=== PATIENT | female | born 1975 | race Caucasian/White ===

== ENCOUNTER 2020-07-10 14:24 | Outpatient (REF) | payer OTHER, SELFPAY ==
[2020-07-10 15:05] LABS: MANUAL DIFF FLAG NO
[2020-07-10 15:11] LABS: Basophils Percent Auto 0.4 % (0-2); Eosinophils Absolute Auto 0.2 X10*3/uL (0.0-0.4); Eosinophils Percent Auto 2.3 % (0-4); Hematocrit 37.7 % (37-47); Hemoglobin 11.6 g/dl (12.0-16.0); Imm Gran Abs Auto 0.02 X10*3/uL (0.00-0.03); Imm Gran Pct Auto 0.3 % (0.0-0.4); Lymphocytes Absolute Auto 1.9 X10*3/uL (1.2-4.9); Mean Corpuscular HGB Conc 30.8 g/dl (31.0-35.0); Mean Corpuscular Hemoglobin 24.3 pg (27.0-33.0); Mean Platelet Volume 11.7 fL (9.4-12.3); Monocytes Absolute Auto 0.5 X10*3/uL (0.1-1.2); Monocytes Percent Auto 7.3 % (2-11); Neutrophils Absolute Auto 4.7 X10*3/uL (2.0-8.3); Neutrophils Percent Auto 63.7 % (45-73); Platelet Count 258 X10*3/uL (160-400); Red Blood Count 4.77 X10*6/uL (4.20-5.50); Red Cell Distribution Width 15.5 % (11.0-16.0); White Blood Count 7.4 X10*3/uL (4.8-10.8)
[2020-07-10 15:22] LABS: Alanine Aminotransferase 16 U/L (0-31); Alkaline Phosphatase 91 U/L (39-117); Anion Gap 13 (12-20); Aspartate Amino Transferase 23 U/L (5-31); Bilirubin Total 0.8 mg/dL (0.0-1.0); Blood Urea Nitrogen 12 mg/dL (9-16); Calcium 8.1 mg/dL (8.4-10.2); Carbon Dioxide 32 mmol/L (22-29); Chloride 99 mmol/L (96-108); Estimated Glomerular Filt Rate > 60; Glucose Fasting 144 mg/dL (60-99); Potassium 3.6 mmol/l (3.3-5.1); Sodium 140 mmol/L (135-145); Total Protein 6.8 g/dL (6.5-8.0)
[2020-07-10 15:30] LABS: Cholesterol 140 mg/dL; HDL Cholesterol 44 mg/dL; LDL Cholesterol Calculated 66 mg/dl; Triglycerides 154 mg/dL
[2020-07-10 15:42] LABS: Ferritin 75 ng/mL (10-250)
[2020-07-10 15:48] LABS: Vitamin B12 263 pg/mL (200-900)
[2020-07-10 15:50] LABS: Thyroid Stimulating Hormone 1.65 mIU/mL (0.32-4.0)
[2020-07-10 16:13] LABS: Creatinine Urine 107.48 mg/dL; Microalbum/Creatinine Ratio Ur 7.4 ug/mg cr
[2020-07-11 03:27] LABS: Estimated Average Glucose 212 mg/dL
== END 2020-07-10 14:25 | disposition home or self-care (01) ==
LOC: HO.LAB 14:24
PROVIDERS: Absent Provider Internal Medicine Medical Oncology; PCP Internal Medicine; Visit Provider Internal Medicine
DX: D50.9 Iron deficiency anemia, unspecified (principal); E66.01 Morbid (severe) obesity due to excess calories; E11.65 Type 2 diabetes mellitus with hyperglycemia; E78.00 Pure hypercholesterolemia, unspecified; Z00.01 Encounter for general adult medical examination with abnormal findings; Z91.14 Patient's other noncompliance with medication regimen; I10 Essential (primary) hypertension
CPT/HCPCS: 36415; 80053; 80061; 82043; 82607; 82728; 83036; 84443; 85025

== ENCOUNTER 2020-07-11 11:38 | Outpatient (REF) | payer OTHER, SELFPAY | END 2020-07-11 11:39 | disposition home or self-care (01) | LOC: HO.LAB 11:38 | PROVIDERS: PCP Internal Medicine; Visit Provider Internal Medicine | DX: E11.65 Type 2 diabetes mellitus with hyperglycemia (principal); E78.00 Pure hypercholesterolemia, unspecified; I10 Essential (primary) hypertension; Z00.01 Encounter for general adult medical examination with abnormal findings; Z91.14 Patient's other noncompliance with medication regimen | CPT/HCPCS: 87338 ==

== ENCOUNTER 2020-07-17 13:55 | Outpatient (REF) | payer OTHER, SELFPAY | END 2020-07-17 13:56 | disposition home or self-care (01) | LOC: HO.LAB 13:55 | PROVIDERS: PCP Internal Medicine; Visit Provider Internal Medicine | DX: Z20.828 Contact with and (suspected) exposure to other viral communicable diseases (principal) | CPT/HCPCS: C9803; U0003 ==

== ENCOUNTER → 2020-09-14 11:20 | Outpatient (BNVA) | payer OTHER, SELFPAY | PROVIDERS: PCP Internal Medicine; Visit Provider Physician Assistant | DX: M17.12 Unilateral primary osteoarthritis, left knee (principal) | CPT/HCPCS: 99212; J1020 ==

== ENCOUNTER 2020-09-14 14:09 | Outpatient (REF) | payer OTHER, SELFPAY | END 2020-09-14 14:10 | disposition home or self-care (01) | LOC: HO.LAB 14:09 | PROVIDERS: Visit Provider Internal Medicine | DX: Z20.828 Contact with and (suspected) exposure to other viral communicable diseases (principal) | CPT/HCPCS: 36415; C9803; U0003 ==

== ENCOUNTER 2020-10-24 20:07 | Emergency (ER) | payer OTHER, SELFPAY ==
--- NOTE | ~2020-10-24 | XR_ITS ---
EXAMINATION: XR CHEST CLINICAL INFORMATION: URI symptoms COMPARISON: Chest x-ray 08/02/2018 TECHNIQUE: Frontal view of the chest was obtained. FINDINGS: Cardiac silhouette is normal in size. The lungs are well aerated. There is no lobar consolidation. No pleural effusion or pneumothorax. Degenerative changes of the spine. XR/XR chest 1V IMPRESSION: No acute pulmonary pathology.
[2020-10-24 20:39] VITALS: BP 125/80; PULSE 120; RESP 22; TEMP 37.2; O2SAT 96; BMI 52.9
--- NOTE | 2020-10-24 21:05 | ED.URI ---
HPI - URI/Sore Throat General Chief Complaint: Upper Respiratory Symptoms Stated Complaint: covid symptims Time Seen by Provider: 10/24/20 20:37 Source: patient Mode of arrival: ambulatory Limitations: no limitations History of Present Illness HPI Narrative: 45-year-old female with past medical history of hypertension, hyperlipidemia, hypothyroidism, and diabetes presents with approximately 3 days of upper respiratory symptoms which include sore throat, dry cough, fatigue, intermittent fevers and chills, and wheezing. She does get recurrent bronchitis yearly however feels that this upper respiratory infection is somewhat different. She does not report chest pain, palpitations, abdominal pain, abdominal distention, dysuria, hematuria, edema, dizziness, and lightheadedness. MD elicited complaint: fever, cough, sore throat and nasal congestion Onset (ago): day(s) (3) Consistency: constant Severity: moderate Description of mucous: clear and watery Able to tolerate fluids by mouth: Yes Exacerbating factors: swallowing and deep breaths Relieving factors: nothing Associated symptoms: fever, chills, myalgias, headache, rhinorrhea, nasal congestion, sore throat, cough and nausea Treatments prior to arrival: acetaminophen Related Data Home Medications Medication Instructions Recorded Confirmed atorvastatin 20 mg tablet 20 mg PO BEDTIME 09/14/20 glimepiride 4 mg tablet 4 mg PO DAILY 09/14/20 levothyroxine 25 mcg capsule 25 mcg PO DAILY 09/14/20 valsartan 320 mg tablet 320 mg PO DAILY 09/14/20 Previous Rx's Medication Instructions Recorded celecoxib 200 mg capsule 200 mg PO BID 30 Days #60 cap 09/15/20 amoxicillin-pot clavulanate 1 tab PO Q12H 10 Days #20 tab 10/24/20 [Augmentin] benzonatate [Tessalon Perles] 100 mg PO TID PRN #30 cap 10/24/20 Allergies Allergy/AdvReac Type Severity Reaction Status Date / Time lisinopril [LISINOPRIL] Allergy Severe ANGIOEDEMA Unverified 05/25/20 15:52 metformin [METFORMIN] Allergy Intermediate GI UPSET Unverified 05/25/20 15:52 dapagliflozin [From FARXIGA] Allergy Unknown HIVES Unverified 05/25/20 15:52 erythromycin base Allergy Unknown UNKNOWN Unverified 05/25/20 15:52 [ERYTHROMYCIN BASE] liraglutide [From VICTOZA] Allergy Unknown RASH Unverified 05/25/20 15:52 amitriptyline [AMITRIPTYLINE] AdvReac Intermediate DRUGGED Unverified 05/25/20 15:52 FEELING Review of Systems Review of Systems: Constitutional: positive Fever, positive Chills, positive fatigue, positive Malaise ENT/Mouth: positive sore throat, positive runny nose Eyes: No Discharge Cardiovascular: No Chest Pain, No SOB Respiratory: No Cough, No Sputum, No Wheezing, No Smoke Exposure, No Dyspnea Gastrointestinal: No Nausea, No Vomiting, No Diarrhea Genitourinary: no irregular bleeding, No Dysuria, No Urinary Frequency, No Hematuria, No Urinary Incontinence, No Urgency, No Flank Pain, Musculoskeletal: positive Myalgia Skin: No rash Neuro: No Headache Yes all other systems are reviewed and are negative FOR[facility]LY [facility], [facility] Past Medical History Attestation statement: The following information was validated with the patient. Source: old records reviewed Medical History Diabetes type 2, controlled H/O cholecystitis HTN (hypertension) Hyperlipidemia Hypothyroid Surgical History H/O tubal ligation Social History Social History Alcohol intake: never Smoking Status: Never smoker Use of substances other than those prescribed or required for medical reasons: No Advance Directives: No Advance Directives Information Provided: Yes Current occupational status: employed Current occupation: [employer] Physical Exam Vital Signs: Vital Signs: Last Vital Signs Temp 99.0 F 10/24/20 20:39 Pulse 120 H 10/24/20 20:39 Resp 22 H 10/24/20 20:39 BP 125/80 10/24/20 20:39 Pulse Ox 96 10/24/20 20:39 Body Mass Index 52.9 Appearance: Alert. Oriented X3. No acute distress. Eyes: Pupils equal, round and reactive to light. ENT: Pharynx normal. Neck: Normal inspection. Neck supple. CVS: Normal heart rate and rhythm. Pulses normal. Respiratory: No respiratory distress. Breath sounds normal. Abdomen: Soft and nontender. Skin: Skin warm and dry. Normal skin color. Normal skin turgor. Extremities: No lower extremity edema. Neuro: No motor deficit. No sensory deficit. Course Course Course Narrative: 45-year-old female with past medical history of hypertension, diabetes, obesity presents with upper respiratory symptoms consistent with COVID-19. Plan of care chest x-ray and COVID swab. Chest x-ray negative for findings of intervention. COVID swab is positive. Patient verbalized understanding of and agrees to plan of care discharge home. MDM - URI/Sore Throat Differential Diagnosis Differential diagnosis: Likely upper respiratory infection, viral infection, bronchitis, influenza and pharyngitis Medical Records Attestation: I reviewed the patient's medical records. Lab Data Attestation: I reviewed the patient's lab results. Labs: Lab Results 10/24/20 Range/Units 20:57 Coronavirus (PCR) POSITIVE A (Negative) Influenza Type A (PCR) NEGATIVE (Negative) Influenza Type B (PCR) NEGATIVE (Negative) RSV RNA Qual (PCR) NEGATIVE (Negative) Imaging Data Chest x-ray: Attestation: I personally reviewed and interpreted this imaging study as follows: Radiologist's impression: EXAMINATION: XR CHEST CLINICAL INFORMATION: URI symptoms COMPARISON: Chest x-ray 08/02/2018 TECHNIQUE: Frontal view of the chest was obtained. FINDINGS: Cardiac silhouette is normal in size. The lungs are well aerated. There is no lobar consolidation. No pleural effusion or pneumothorax. Degenerative changes of the spine. XR/XR chest 1V IMPRESSION: No acute pulmonary pathology. Discharge Plan Discharge Clinical Impression: Viral infection, Bronchitis, COVID-19 Patient Disposition: Home, Self-Care Instructions: Acute Bronchitis (ED), Wheezing (ED), COVID-19 (Coronavirus Disease 2019) (ED) Additional Instructions: You were evaluated for respiratory symptoms consistent with COVID-19. Your COVID test came back positive. Please maintain social isolation for state and Federal guidelines. Thank you for choosing this emergency department for evaluation. Please follow-up with primary care physician as needed. Return to the emergency department for any new, concerning, or worsening symptoms. Prescriptions: New benzonatate [Tessalon Perles] 100 mg capsule 100 mg PO TID PRN (Reason: cough) Qty: 30 RF: 0 amoxicillin-pot clavulanate [Augmentin] 875-125 mg tablet 1 tab PO Q12H 10 Days Qty: 20 RF: 0 No Action celecoxib [Celebrex] 200 mg capsule 200 mg PO BID 30 Days Qty: 60 RF: 3 Stand Alone Forms: Work/School Release Interventions: ED Discharge Assessment Last Done: 10/24/20 22:22 Discharge Date/Time: 10/24/20 22:24
[2020-10-24 21:41] LABS: Influenza A PCR NEGATIVE (Negative); Influenza B PCR NEGATIVE (Negative); Resp Syncy Virus RNA Qual PCR NEGATIVE (Negative); SARS COV2 PCR INHOUSE POSITIVE (Negative)
[2020-10-24] MEDS: Benzonatate 100 MG CAPSULE 200 MG PO (22:16)
[2020-10-24] MEDS: Acetaminophen 325 MG TABLET 650 MG PO (22:16)
[2020-10-24] MEDS: Albuterol Sulfate 90 MCG 8 GM INHALER 2 PUFF INHALE (22:16)
== END 2020-10-24 22:24 | disposition home or self-care (01) ==
PROVIDERS: Nurse Practitioner Family; Emergency Provider Emergency Medicine; PCP Internal Medicine
DX: U07.1 COVID-19 (principal); I10 Essential (primary) hypertension; E11.9 Type 2 diabetes mellitus without complications
CPT/HCPCS: 0241U; 36415; 71045; 99283; 99284

== ENCOUNTER 2020-11-16 15:38 | Outpatient (REF) | payer OTHER, SELFPAY ==
[2020-11-16 16:42] LABS: Hemoglobin 11.6 g/dl (12.0-16.0); MANUAL DIFF FLAG SCAN; Neutrophils Absolute Auto 4.9 X10*3/uL (2.0-8.3); SCAN SMEAR FLAG 1
[2020-11-16 16:44] LABS: Basophils Percent Auto 0.2 % (0-2); Eosinophils Absolute Auto 0.1 X10*3/uL (0.0-0.4); Eosinophils Percent Auto 1.5 % (0-4); Hematocrit 37.5 % (37-47); Imm Gran Abs Auto 0.04 X10*3/uL (0.00-0.03); Imm Gran Pct Auto 0.5 % (0.0-0.4); Lymphocytes Absolute Auto 1.7 X10*3/uL (1.2-4.9); Lymphocytes Percent Auto 20.4 % (20-40); Mean Corpuscular HGB Conc 30.9 g/dl (31.0-35.0); Mean Corpuscular Hemoglobin 23.7 pg (27.0-33.0); Mean Corpuscular Volume 76.7 fL (80-98); Mean Platelet Volume 12.1 fL (9.4-12.3); Monocytes Absolute Auto 1.4 X10*3/uL (0.1-1.2); Monocytes Percent Auto 16.7 % (2-11); Neutrophils Percent Auto 60.7 % (45-73); PLT CLUMP 1; Red Blood Count 4.89 X10*6/uL (4.20-5.50); Red Cell Distribution Width 17.7 % (11.0-16.0)
[2020-11-16 16:48] LABS: PLT ABN DIST 1
[2020-11-16 16:49] LABS: Estimated Average Glucose 235 mg/dL; Hemoglobin A1c % 9.8 %
[2020-11-16 17:00] LABS: Platelet Count 161 X10*3/uL (160-400); SLIDE REVIEW VERIFIED; White Blood Count 8.1 X10*3/uL (4.8-10.8)
[2020-11-16 17:13] LABS: Alanine Aminotransferase 20 U/L (0-31); Albumin Level 3.5 g/dL (3.5-5.0); Alkaline Phosphatase 96 U/L (39-117); Anion Gap 13 (12-20); Aspartate Amino Transferase 15 U/L (5-31); Bilirubin Total 0.5 mg/dL (0.0-1.0); Blood Urea Nitrogen 16 mg/dL (9-16); Calcium 8.3 mg/dL (8.4-10.2); Carbon Dioxide 27 mmol/L (22-29); Chloride 99 mmol/L (96-108); Estimated Glomerular Filt Rate > 60; Glucose Fasting 376 mg/dL (60-99); Potassium 3.6 mmol/L (3.3-5.1); Sodium 135 mmol/L (135-145); Total Protein 6.1 g/dL (6.5-8.0)
[2020-11-16 17:27] LABS: Ferritin 154 ng/mL (10-250); Thyroid Stimulating Hormone 1.89 uIU/mL (0.32-4.0)
[2020-11-18 09:25] LABS: Vitamin B12 211 pg/mL (200-900)
== END 2020-11-16 15:39 | disposition home or self-care (01) ==
LOC: HO.LAB 15:38
PROVIDERS: Absent Provider Internal Medicine Medical Oncology; PCP Internal Medicine; Visit Provider Internal Medicine
DX: E11.65 Type 2 diabetes mellitus with hyperglycemia (principal); I26.99 Other pulmonary embolism without acute cor pulmonale; R06.02 Shortness of breath; U07.1 COVID-19; D50.9 Iron deficiency anemia, unspecified; E53.8 Deficiency of other specified B group vitamins
CPT/HCPCS: 36415; 80053; 82607; 82728; 83036; 84439; 84443; 85025

== ENCOUNTER 2021-02-21 14:32 | Outpatient (REF) | payer OTHER, SELFPAY ==
[2021-02-21 16:44] LABS: MANUAL DIFF FLAG NO
[2021-02-21 16:50] LABS: Basophils Absolute Auto 0.1 X10*3/uL (0.0-0.2); Basophils Percent Auto 0.5 % (0-2); Eosinophils Absolute Auto 0.2 X10*3/uL (0.0-0.4); Eosinophils Percent Auto 1.9 % (0-4); Hematocrit 33.8 % (37-47); Hemoglobin 10.2 g/dl (12.0-16.0); Imm Gran Abs Auto 0.03 X10*3/uL (0.00-0.03); Imm Gran Pct Auto 0.3 % (0.0-0.4); Lymphocytes Absolute Auto 2.6 X10*3/uL (1.2-4.9); Lymphocytes Percent Auto 26.3 % (20-40); Mean Corpuscular HGB Conc 30.2 g/dl (31.0-35.0); Mean Corpuscular Hemoglobin 23.1 pg (27.0-33.0); Mean Corpuscular Volume 76.5 fL (80-98); Mean Platelet Volume 11.7 fL (9.4-12.3); Monocytes Absolute Auto 0.8 X10*3/uL (0.1-1.2); Monocytes Percent Auto 8.1 % (2-11); Neutrophils Absolute Auto 6.2 X10*3/uL (2.0-8.3); Neutrophils Percent Auto 62.9 % (45-73); Platelet Count 295 X10*3/uL (160-400); Red Blood Count 4.42 X10*6/uL (4.20-5.50); Red Cell Distribution Width 15.3 % (11.0-16.0); White Blood Count 9.9 X10*3/uL (4.8-10.8)
[2021-02-21 17:24] LABS: Alanine Aminotransferase 15 U/L (0-31); Albumin Level 4.1 g/dL (3.5-5.0); Alkaline Phosphatase 86 U/L (39-117); Anion Gap 13 (12-20); Aspartate Amino Transferase 20 U/L (5-31); Bilirubin Total 0.4 mg/dL (0.0-1.0); Blood Urea Nitrogen 12 mg/dL (9-16); Calcium 9.2 mg/dL (8.4-10.2); Carbon Dioxide 30 mmol/L (22-29); Chloride 99 mmol/L (96-108); Estimated Glomerular Filt Rate > 60; Glucose Random 93 mg/dL (60-115); Potassium 3.9 mmol/L (3.3-5.1); Sodium 138 mmol/L (135-145); Total Protein 6.7 g/dL (6.5-8.0)
[2021-02-21 17:51] LABS: Vitamin B12 187 pg/mL (200-900)
[2021-02-21 18:09] LABS: Thyroid Stimulating Hormone 1.32 uIU/mL (0.32-4.0)
[2021-02-21 18:28] LABS: Ferritin 48 ng/mL (10-250)
== END 2021-02-21 14:33 | disposition home or self-care (01) ==
LOC: HO.LAB 14:32
PROVIDERS: Absent Provider Internal Medicine Medical Oncology; PCP Internal Medicine; Visit Provider Nurse Practitioner Family
DX: D50.9 Iron deficiency anemia, unspecified (principal); E03.9 Hypothyroidism, unspecified; E53.8 Deficiency of other specified B group vitamins; M17.12 Unilateral primary osteoarthritis, left knee; M17.11 Unilateral primary osteoarthritis, right knee
CPT/HCPCS: 36415; 80053; 82607; 82728; 84439; 84443; 85025; 99202

== ENCOUNTER 2021-03-05 14:11 | Outpatient (REF) | payer OTHER, SELFPAY ==
[2021-03-05 14:45] LABS: MANUAL DIFF FLAG NO
[2021-03-05 14:50] LABS: Basophils Percent Auto 0.2 % (0-2); Eosinophils Absolute Auto 0.2 X10*3/uL (0.0-0.4); Eosinophils Percent Auto 1.7 % (0-4); Hematocrit 34.9 % (37-47); Hemoglobin 10.6 g/dl (12.0-16.0); Imm Gran Abs Auto 0.04 X10*3/uL (0.00-0.03); Imm Gran Pct Auto 0.4 % (0.0-0.4); Lymphocytes Absolute Auto 2.3 X10*3/uL (1.2-4.9); Lymphocytes Percent Auto 25.4 % (20-40); Mean Corpuscular HGB Conc 30.4 g/dl (31.0-35.0); Mean Corpuscular Hemoglobin 23.2 pg (27.0-33.0); Mean Corpuscular Volume 76.5 fL (80-98); Mean Platelet Volume 11.6 fL (9.4-12.3); Monocytes Absolute Auto 0.7 X10*3/uL (0.1-1.2); Monocytes Percent Auto 7.2 % (2-11); Neutrophils Percent Auto 65.1 % (45-73); Platelet Count 302 X10*3/uL (160-400); Red Blood Count 4.56 X10*6/uL (4.20-5.50); Red Cell Distribution Width 15.3 % (11.0-16.0); White Blood Count 9.2 X10*3/uL (4.8-10.8)
[2021-03-05 14:56] LABS: Estimated Average Glucose 148 mg/dL; Hemoglobin A1c % 6.8 %
[2021-03-05 15:16] LABS: Alanine Aminotransferase 10 U/L (0-31); Albumin Level 3.7 g/dL (3.5-5.0); Alkaline Phosphatase 84 U/L (39-117); Anion Gap 13 (12-20); Aspartate Amino Transferase 19 U/L (5-31); Bilirubin Total 0.3 mg/dL (0.0-1.0); Blood Urea Nitrogen 15 mg/dL (9-16); Carbon Dioxide 30 mmol/L (22-29); Chloride 104 mmol/L (96-108); Estimated Glomerular Filt Rate > 60; Glucose Random 108 mg/dL (60-115); Potassium 4.2 mmol/L (3.3-5.1); Sodium 143 mmol/L (135-145); Total Protein 6.3 g/dL (6.5-8.0)
[2021-03-05 15:33] LABS: Thyroid Stimulating Hormone 0.79 uIU/mL (0.32-4.0)
== END 2021-03-05 14:12 | disposition home or self-care (01) ==
LOC: HO.LAB 14:11
PROVIDERS: PCP Internal Medicine; Visit Provider Internal Medicine
DX: E03.9 Hypothyroidism, unspecified (principal); E11.65 Type 2 diabetes mellitus with hyperglycemia; I26.99 Other pulmonary embolism without acute cor pulmonale; Z79.01 Long term (current) use of anticoagulants
CPT/HCPCS: 36415; 80053; 83036; 84443; 85025

== ENCOUNTER 2021-05-08 06:23 | Outpatient (REF) | payer OTHER, SELFPAY ==
--- NOTE | ~2021-05-08 | FL_ITS ---
EXAMINATION: XR FLUOROSCOPY WITH IMAGES CLINICAL INFORMATION: Right knee osteoarthritis COMPARISON: September 16, 2019 TECHNIQUE: Fluoroscopy performed by Dr. Clifton Ford. Fluoroscopy time: 0.1 seconds DAP: 0.688 Gycm2 Images: 3 FINDINGS: 3 images demonstrate a needle position about the anterior medial aspect of the proximal tibia. FL/FL guidance in treatment room IMPRESSION: Needle placement for pain management.
== END 2021-05-08 06:24 | disposition home or self-care (01) ==
LOC: HO.RADIR 06:23
PROVIDERS: Visit Provider Anesthesiology
DX: M17.0 Bilateral primary osteoarthritis of knee (principal)
CPT/HCPCS: 64454

== ENCOUNTER → 2021-05-16 12:00 | Outpatient (BNVA) | payer OTHER, SELFPAY | PROVIDERS: PCP Internal Medicine; Visit Provider Anesthesiology ==

== ENCOUNTER 2021-06-01 12:34 | Outpatient (REF) | payer OTHER, SELFPAY ==
--- NOTE | ~2021-06-01 | MM_ITS ---
EXAMINATION: MM SCREENING DIGITAL BREAST TOMOSYNTHESIS, BILATERAL CLINICAL INFORMATION: Screening. Asymptomatic. The lifetime risk of breast cancer based on the Tyrer-Cuzick Model is 10%. COMPARISON: Mammography: 03/01/2020, 02/24/2019, 12/11/2017 TECHNIQUE: Digital breast tomosynthesis is performed in both the craniocaudal and mediolateral oblique views along with computer-aided detection (CAD). Synthesized 2D images are generated from the tomosynthesis. Additional right MLO view is provided. FINDINGS: There are scattered areas of fibroglandular density (ACR BI-RADS breast composition Category b). There are no significant masses, abnormal calcifications, or other abnormalities. Parenchymal pattern is similar to prior studies. No developing density. No significant changes. MM/MM tomosynthesis screening BI IMPRESSION: No mammographic evidence of malignancy. ASSESSMENT: BI-RADS 1: Negative RECOMMENDATION: Routine annual mammography screening. This patient's information was entered into a reminder system with a target due date for their next mammogram.
== END 2021-06-01 12:35 | disposition home or self-care (01) ==
LOC: HO.MAMMO 12:34
PROVIDERS: PCP Internal Medicine; Visit Provider Internal Medicine
DX: Z12.31 Encounter for screening mammogram for malignant neoplasm of breast (principal)
CPT/HCPCS: 77063; 77067

== ENCOUNTER 2021-06-07 08:22 | Outpatient (REF) | payer OTHER, SELFPAY | END 2021-06-07 08:23 | disposition home or self-care (01) | LOC: HO.HOSX 08:22 | PROVIDERS: Visit Provider Orthopaedic Surgery | DX: Z13.89 Encounter for screening for other disorder (principal) ==

== ENCOUNTER 2021-06-22 07:30 | Outpatient (REF) | payer OTHER, SELFPAY ==
--- NOTE | ~2021-06-22 | XR_ITS ---
EXAMINATION: XR ANKLE, RIGHT CLINICAL INFORMATION: Right ankle pain. COMPARISON: Right foot radiographs dated 11/23/2015. TECHNIQUE: AP, lateral, and mortise views of the right ankle. FINDINGS: No acute fracture or dislocation. The ankle mortise is maintained. Mild joint space narrowing with small marginal osteophytes at the dorsal midfoot, increased when compared to the prior examination. Redemonstration of a plantar and dorsal calcaneal enthesophytes. XR/XR ankle RT min 3V IMPRESSION: No acute osseous abnormality. Mild degenerative spurring at the dorsal midfoot, slightly progressed. Plantar and dorsal calcaneal spurs.
== END 2021-06-22 07:31 | disposition home or self-care (01) ==
LOC: HO.HOSX 07:30
PROVIDERS: Visit Provider Physician Assistant
DX: M19.071 Primary osteoarthritis, right ankle and foot (principal); Z79.01 Long term (current) use of anticoagulants
CPT/HCPCS: 73610; 99202

== ENCOUNTER 2021-07-02 10:20 | Outpatient (REF) | payer OTHER, SELFPAY ==
[2021-07-02 10:31] LABS: MANUAL DIFF FLAG NO
[2021-07-02 10:58] LABS: Basophils Absolute Auto 0.1 X10*3/uL (0.0-0.2); Basophils Percent Auto 0.5 % (0-2); Eosinophils Absolute Auto 0.2 X10*3/uL (0.0-0.4); Eosinophils Percent Auto 2.2 % (0-4); Hematocrit 36.1 % (37-47); Hemoglobin 11.1 g/dl (12.0-16.0); Imm Gran Abs Auto 0.02 X10*3/uL (0.00-0.03); Imm Gran Pct Auto 0.2 % (0.0-0.4); Lymphocytes Absolute Auto 1.7 X10*3/uL (1.2-4.9); Lymphocytes Percent Auto 16.8 % (20-40); Mean Corpuscular HGB Conc 30.7 g/dl (31.0-35.0); Mean Corpuscular Hemoglobin 23.5 pg (27.0-33.0); Mean Corpuscular Volume 76.3 fL (80-98); Mean Platelet Volume 11.3 fL (9.4-12.3); Monocytes Percent Auto 9.9 % (2-11); Neutrophils Absolute Auto 6.9 X10*3/uL (2.0-8.3); Neutrophils Percent Auto 70.4 % (45-73); Platelet Count 325 X10*3/uL (160-400); Red Blood Count 4.73 X10*6/uL (4.20-5.50); Red Cell Distribution Width 15.9 % (11.0-16.0); White Blood Count 9.9 X10*3/uL (4.8-10.8)
[2021-07-02 11:27] LABS: Estimated Average Glucose 143 mg/dL; Hemoglobin A1c % 6.6 %
[2021-07-02 11:28] LABS: Alanine Aminotransferase 15 U/L (0-31); Alkaline Phosphatase 81 U/L (39-117); Anion Gap 13 (12-20); Aspartate Amino Transferase 16 U/L (5-31); Bilirubin Total 0.5 mg/dL (0.0-1.0); Blood Urea Nitrogen 14 mg/dL (9-16); Calcium 9.3 mg/dL (8.4-10.2); Carbon Dioxide 30 mmol/L (22-29); Chloride 101 mmol/L (96-108); Cholesterol 130 mg/dL; Estimated Glomerular Filt Rate > 60; Glucose Random 115 mg/dL (60-115); HDL Cholesterol 32 mg/dL; LDL Cholesterol Calculated 51 mg/dl; Potassium 3.9 mmol/L (3.3-5.1); Sodium 140 mmol/L (135-145); Total Protein 6.7 g/dL (6.5-8.0); Triglycerides 236 mg/dL
[2021-07-02 11:50] LABS: Ferritin 35 ng/mL (10-250); Vitamin B12 640 pg/mL (200-900)
== END 2021-07-02 10:21 | disposition home or self-care (01) ==
LOC: HO.LAB 10:20
PROVIDERS: Absent Provider Internal Medicine Medical Oncology; PCP Internal Medicine; Visit Provider Internal Medicine
DX: D50.8 Other iron deficiency anemias (principal); E03.9 Hypothyroidism, unspecified; E11.9 Type 2 diabetes mellitus without complications; E78.2 Mixed hyperlipidemia
CPT/HCPCS: 36415; 80053; 80061; 82607; 82728; 83036; 85025

== ENCOUNTER 2021-07-06 10:13 | Day surgery (SDC) | payer OTHER, SELFPAY ==
[2021-06-28 20:22] VITALS: BMI 49.1
--- NOTE | 2021-07-05 10:14 | HO.ANESPROP2 ---
Documented by User: Norma Tristan NP 07/05/21 10:21 HPI - Anesthesia Eval Consult details Narrative: 45yo F for Left Genicular Nerve Block Diagnostic Eliquis for post-COVID PE's 10/2020 [facility] Active Problems Active Problems: All Active Problems (Updated 06/28/21 @ 20:26 by Maggi Veloz RN) Osteoarthritis of left knee (Acute) COVID-19 (Acute) Osteoarthritis of right knee (Acute) Osteoarthritis of right ankle (Acute) Past Medical History Medical History Anxiety Chronic headaches Diabetes type 2, controlled Dyspnea on exertion H/O cholecystitis History of pulmonary embolus (PE) HTN (hypertension) Hyperlipidemia Hypothyroid Pulmonary embolism Surgical History Surgical History H/O tubal ligation Hx laparoscopic cholecystectomy Social History Social History Alcohol intake: never Patient Tobacco Use Status: Never used Tobacco Use of substances other than those prescribed or required for medical reasons: No Are you DNR?: No Advance Directives: No Advance Directives Information Provided: No Advance Directives on File: No Recently lost weight without trying: No Nutrition Risks: No Nutritional Risk Patient : No Current occupational status: employed Current occupation: [employer] Allergies Allergy/AdvReac Type Severity Reaction Status Date / Time lisinopril [LISINOPRIL] Allergy Severe ANGIOEDEMA Verified 06/22/21 13:34 metformin [METFORMIN] Allergy Intermediate GI UPSET Verified 06/22/21 13:34 dapagliflozin [From FARXIGA] Allergy Unknown HIVES Verified 06/22/21 13:34 erythromycin base Allergy Unknown UNKNOWN Verified 06/22/21 13:34 [ERYTHROMYCIN BASE] liraglutide [From VICTOZA] Allergy Unknown RASH Verified 06/22/21 13:34 amitriptyline [AMITRIPTYLINE] AdvReac Intermediate DRUGGED Verified 06/22/21 13:34 FEELING Home Medications Medication Instructions Recorded Confirmed Last Taken Type atorvastatin 20 mg tablet 20 mg PO BEDTIME 09/14/20 06/28/21 Unknown History glimepiride 4 mg tablet 4 mg PO DAILY 09/14/20 06/28/21 Unknown History levothyroxine 25 mcg capsule 25 mcg PO DAILY 09/14/20 06/28/21 07/06/21 History valsartan 320 mg tablet 320 mg PO DAILY 09/14/20 06/28/21 Unknown History apixaban 5 mg tablet (Eliquis) 5 mg PO BID 02/21/21 06/28/21 07/02/21 History sitagliptin 50 mg-metformin ER 1 tab PO DAILY 02/21/21 06/28/21 Unknown History 1,000 mg tablet,extended release 24h mp (Janumet XR) Exam Exam Date and Time: July 05, 2021 1014 Height,Weight and Vital Signs: Height 5 ft 5 in Weight 133.81 kg Pertinent Lab Results Pertinent Lab Results: Laboratory Tests 07/02/21 07/02/21 10:30 10:30 WBC 9.9 Hgb 11.1 L Hct 36.1 L Plt Count 325 Sodium 140 Potassium 3.9 Chloride 101 Carbon Dioxide 30 H BUN 14 Creatinine 0.93 Assessment and Plan Assessment Anesthesia Assessment: Chart Reviewed Documented by User: Yola Falcon MD 07/06/21 12:30 PMF[facility] Past Medical History Medical History Anxiety Chronic headaches Diabetes type 2, controlled Dyspnea on exertion H/O cholecystitis History of pulmonary embolus (PE) HTN (hypertension) Hyperlipidemia Hypothyroid Pulmonary embolism Surgical History Surgical History H/O tubal ligation Hx laparoscopic cholecystectomy History of Problems with Anesthesia: No Social History Social History Alcohol intake: never Patient Tobacco Use Status: Never used Tobacco Use of substances other than those prescribed or required for medical reasons: No Are you DNR?: No Advance Directives: No Advance Directives Information Provided: No Advance Directives on File: No Recently lost weight without trying: No Nutrition Risks: No Nutritional Risk Patient : No Current occupational status: employed 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 Allergies Allergy/AdvReac Type Severity Reaction Status Date / Time lisinopril [LISINOPRIL] Allergy Severe ANGIOEDEMA Verified 06/22/21 13:34 metformin [METFORMIN] Allergy Intermediate GI UPSET Verified 06/22/21 13:34 dapagliflozin [From FARXIGA] Allergy Unknown HIVES Verified 06/22/21 13:34 erythromycin base Allergy Unknown UNKNOWN Verified 06/22/21 13:34 [ERYTHROMYCIN BASE] liraglutide [From VICTOZA] Allergy Unknown RASH Verified 06/22/21 13:34 amitriptyline [AMITRIPTYLINE] AdvReac Intermediate DRUGGED Verified 06/22/21 13:34 FEELING Home Medications Medication Instructions Recorded Confirmed Last Taken Type atorvastatin 20 mg tablet 20 mg PO BEDTIME 09/14/20 06/28/21 Unknown History glimepiride 4 mg tablet 4 mg PO DAILY 09/14/20 06/28/21 Unknown History levothyroxine 25 mcg capsule 25 mcg PO DAILY 09/14/20 06/28/21 07/06/21 History valsartan 320 mg tablet 320 mg PO DAILY 09/14/20 06/28/21 Unknown History apixaban 5 mg tablet (Eliquis) 5 mg PO BID 02/21/21 06/28/21 07/02/21 History sitagliptin 50 mg-metformin ER 1 tab PO DAILY 02/21/21 06/28/21 Unknown History 1,000 mg tablet,extended release 24h mp (Janumet XR) Exam Airway Mallampati Class: II TM Dist: >3cm Neck ROM: Full Loose/Missing/Broken Teeth: No Heart: RRR Lungs: CTA Assessment and Plan Assessment Anesthesia Assessment: Anesthesia Plan Discussed Final Anesthetic Review History of Problems with Anesthesia: No NPO: Yes ASA Class: III Final Preanesthetic Review: Meds/Allgs Chart Reviewed, Consent Obtained/Reviewed and Anes Risks/Benef Reviewed Patient Risk: Intermediate Procedure Risk: Low Anesthetic Plan Anesthetic Plan: MAC: Disposition: Standard PACU
--- NOTE | 2021-07-05 13:23 | P.HPSUR_ITS ---
Pre-Procedural Eval Section A Date of Service: 07/05/21 The patient is an INPATIENT: No Changes since office visit: Yes Patient answered all questions The History & Physical has been completed within 30 days and I have reviewed it.: No Section B Chief Complaint: Osteoarthritis of left knee Details of Present Illness: as above Relevant Family History (Specify if Yes): No Relevant Social History: None Present Medications: see Short Stay Collaborative assessment Medical History: No relevant PMH History of Previous Operations: No relevant previous surgery Allergies: Allergies Allergy/AdvReac Type Severity Reaction Status Date / Time lisinopril [LISINOPRIL] Allergy Severe ANGIOEDEMA Verified 06/22/21 13:34 metformin [METFORMIN] Allergy Intermediate GI UPSET Verified 06/22/21 13:34 dapagliflozin [From FARXIGA] Allergy Unknown HIVES Verified 06/22/21 13:34 erythromycin base Allergy Unknown UNKNOWN Verified 06/22/21 13:34 [ERYTHROMYCIN BASE] liraglutide [From VICTOZA] Allergy Unknown RASH Verified 06/22/21 13:34 amitriptyline [AMITRIPTYLINE] AdvReac Intermediate DRUGGED Verified 06/22/21 13:34 FEELING Review of Systems Sugical H&P ROS: Negative: Constitution, Cardiovascular, Respiratory, Neurological, Psychiatric, Hem-Onc, Allergic/Immunologic, Gastrointestinal, Genitourinary, Musculoskeletal, Integumentary, Endocrine and Eyes/Ear s/Nose/Throat Exam Surgical H&P Exam: Normal: HEENT, Normal: Heart, Normal: Lungs, Normal: Extremities, Normal: Abdomen, Normal: Skin and Normal: Neurological Plan Diagnosis/Plan: Unchanged I have reviewed the history and physical and performed a pertinent physical examination on my patient. No changes have occurred unless specified.
--- NOTE | ~2021-07-06 | FL_ITS ---
EXAMINATION: XR FLUOROSCOPY WITH IMAGES CLINICAL INFORMATION: left genicular nerve block COMPARISON: Standing AP knees 09/27/2019 TECHNIQUE: Fluoroscopy performed by Dr. Clifton Ford. Fluoroscopy time: 0.2 minutes DAP: 1.72 mGycm2 Images: 3 FINDINGS: There are 2 needles adjacent to the medial and lateral distal femoral shaft at mid depth. There is a single needle adjacent to the proximal medial tibial shaft, mid depth. FL/FL guidance in OR IMPRESSION: Fluoroscopy for pain management procedures.
[2021-07-06 10:15] VITALS: BP 110/74; PULSE 82; RESP 17; TEMP 36.6; O2SAT 96
[2021-07-06 10:28] LABS: Glucose, Whole Blood 149 mg/dL (60-115)
[2021-07-06] MEDS: Lactated Ringers 1,000 ML 100 ML IVCONT (10:42)
[2021-07-06 13:17] VITALS: BP 127/68; PULSE 87; RESP 10; TEMP 36.9; O2SAT 97
--- NOTE | 2021-07-06 13:19 | PM.OP ---
Brief Operative Note Date of Service: 07/06/21 Pre-op diagnosis: Knee osteoarthritis Post-op diagnosis: same Procedure: Diagnostic genicular nerve block left knee Implants: None Surgeon: Clifton Ford MD Anesthesia: GLMA Was an Calender Roll Operator used for this Procedure?: No Estimated blood loss (mL): 1 Pathology: none sent Condition: stable Disposition: PACU
[2021-07-06 13:22] VITALS: BP 143/78; PULSE 90; RESP 18; O2SAT 97
--- NOTE | 2021-07-06 13:25 | P.OP_ITS ---
Operative Note Operative Note Date of Service: 07/06/21 Narrative: Patient came to the operating room after informed consent was obtained.? She was positioned supine on the operating table [employer] [employer] monitors were applied , patient was induced with general anesthes ia and LMA was inserted. Time-out procedure was performed delineating correct site and side of the injections, patient's name and date of , allergies, need for antibiotics, risk of fire. ? ? ? Patient's left knee as well as anterior surface of lower thigh as well as anterior surface of upper kendall were prepped with ChloraPrep and draped with sterile towels.? Sterilely draped C-arm was brought over the operating field and sq picture of the patient's left knee was obtained on the screen .? The point of interest were delineated as connection of left metaphysis and diaphysis medial of the left femoral bones, as well as connections of the diaphysis and metaphysison the left on the medial tibial bone.? As well as connection of the metaphysis and diaphysis on the left of the lateral femoral bone. ? The point of interest projection to the skin were injected with small amount of Lidocaine and after that 22 g. 3&1/2 spinal needles were inserted through the skin 1st on the left and then on the right.? The needles were driven? the point of interest on anterior posterior and lateral views.? When on lateral views the needles were positioned with the tips in the projection of mid shaft of the bones the 1.5 to 2 cc of Marcaine? was injected into each needle position. Upon completion of the injections needles were removed sterile Band-Aids were applied. ? ? ? Patient tolerated procedure well she was transferred to PACU for recovery she recovered uneventfully and went home without immediate complications.
[2021-07-06 13:27] VITALS: BP 117/78; PULSE 88; RESP 18; O2SAT 97
[2021-07-06 13:32] VITALS: BP 106/67; PULSE 80; RESP 16; O2SAT 96
[2021-07-06 13:47] VITALS: BP 115/61; PULSE 78; RESP 16; O2SAT 98
== END 2021-07-06 14:25 | disposition home or self-care (01) ==
PROVIDERS: PCP Internal Medicine; Visit Provider Anesthesiology
PROC: (CPT 64454; principal; 2021-07-06 12:40)
DX: M17.12 Unilateral primary osteoarthritis, left knee (principal); E11.9 Type 2 diabetes mellitus without complications; I10 Essential (primary) hypertension; Z88.8 Allergy status to other drugs, medicaments and biological substances
CPT/HCPCS: 64454; 82947; J1100; J2250; J2405; J2765

== ENCOUNTER 2021-07-10 17:29 | Outpatient (REF) | payer OTHER, SELFPAY ==
[2021-07-10 18:08] LABS: D Dimer 233 NG/ML
== END 2021-07-10 17:30 | disposition home or self-care (01) ==
LOC: HO.LAB 17:29
PROVIDERS: PCP Internal Medicine; Visit Provider Internal Medicine
DX: Z86.711 Personal history of pulmonary embolism (principal)
CPT/HCPCS: 36415; 85379

== ENCOUNTER → 2021-07-12 10:02 | Outpatient (BNVA) | payer OTHER, SELFPAY | PROVIDERS: PCP Internal Medicine; Visit Provider Anesthesiology ==

== ENCOUNTER 2021-07-26 17:13 | Outpatient (REF) | payer OTHER, SELFPAY ==
[2021-07-26 17:34] LABS: D Dimer High Sensitivity 172 NG/ML
== END 2021-07-26 17:14 | disposition home or self-care (01) ==
LOC: HO.LAB 17:13
PROVIDERS: PCP Internal Medicine; Visit Provider Internal Medicine
DX: Z86.711 Personal history of pulmonary embolism (principal); Z79.01 Long term (current) use of anticoagulants
CPT/HCPCS: 36415; 85379

== ENCOUNTER 2021-08-22 14:04 | Outpatient (REF) | payer OTHER, SELFPAY ==
[2021-08-22 15:15] LABS: COVID-19 Test Negative (Negative); IDNOW Serial# 16C4AD1C
== END 2021-08-22 14:05 | disposition home or self-care (01) ==
LOC: HO.LAB 14:04
PROVIDERS: Visit Provider Internal Medicine
DX: Z20.822 Contact with and (suspected) exposure to COVID-19 (principal)
CPT/HCPCS: 36415; 87635; C9803

== ENCOUNTER 2021-09-19 13:12 | Outpatient (REF) | payer OTHER, SELFPAY ==
[2021-09-19 14:28] LABS: COVID-19 Test Negative (Negative)
== END 2021-09-19 13:13 | disposition home or self-care (01) ==
LOC: HO.LAB 13:12
PROVIDERS: Visit Provider Internal Medicine
DX: Z20.822 Contact with and (suspected) exposure to COVID-19 (principal)
CPT/HCPCS: 87635; C9803

== ENCOUNTER 2021-10-03 13:24 | Outpatient (REF) | payer OTHER, SELFPAY ==
--- NOTE | ~2021-10-03 | XR_ITS ---
EXAMINATION: XR WRIST, RIGHT CLINICAL INFORMATION: Right wrist pain. COMPARISON: None TECHNIQUE: PA, lateral, and oblique views of the right wrist. FINDINGS: There is no evidence of acute fracture or dislocation of the right wrist. No erosive changes are evident. There is soft tissue swelling seen overlying the wrist and dorsal aspect of the metacarpals. There is some spurring about the 1st carpometacarpal joint without significant joint space narrowing. XR/XR wrist RT min 3V IMPRESSION: Degenerative change of the 1st carpometacarpal joint.
== END 2021-10-03 13:25 | disposition home or self-care (01) ==
LOC: HO.HOSX 13:24
PROVIDERS: PCP Internal Medicine; Visit Provider Physician Assistant
DX: M65.4 Radial styloid tenosynovitis [de Quervain] (principal)
CPT/HCPCS: 73110; 99212; J1100

== ENCOUNTER 2021-10-24 12:23 | Outpatient (REF) | payer OTHER, SELFPAY ==
[2021-10-24 12:57] LABS: COVID-19 Test Negative (Negative)
== END 2021-10-24 12:24 | disposition home or self-care (01) ==
LOC: HO.LAB 12:23
PROVIDERS: Visit Provider Internal Medicine
DX: Z20.822 Contact with and (suspected) exposure to COVID-19 (principal)
CPT/HCPCS: 87635; C9803

== ENCOUNTER 2021-10-29 13:25 | Outpatient (REF) | payer OTHER, SELFPAY ==
[2021-10-29 14:09] LABS: D Dimer High Sensitivity 311 NG/ML
[2021-10-29 14:24] LABS: Estimated Average Glucose 186 mg/dL; Hemoglobin A1c % 8.1 %
[2021-10-29 14:28] LABS: Alanine Aminotransferase 17 U/L (0-31); Alkaline Phosphatase 96 U/L (39-117); Anion Gap 14 (12-20); Aspartate Amino Transferase 14 U/L (5-31); Bilirubin Total 0.4 mg/dL (0.0-1.0); Blood Urea Nitrogen 13 mg/dL (9-16); Calcium 9.4 mg/dL (8.4-10.2); Carbon Dioxide 28 mmol/L (22-29); Chloride 102 mmol/L (96-108); Estimated Glomerular Filt Rate > 60; Glucose Random 133 mg/dL (60-115); Potassium 3.9 mmol/L (3.3-5.1); Sodium 140 mmol/L (135-145)
[2021-10-29 14:49] LABS: Thyroid Stimulating Hormone 1.31 uIU/mL (0.32-4.0)
== END 2021-10-29 13:26 | disposition home or self-care (01) ==
LOC: HO.LAB 13:25
PROVIDERS: PCP Internal Medicine; Visit Provider Internal Medicine
DX: Z00.00 Encounter for general adult medical examination without abnormal findings (principal); E03.9 Hypothyroidism, unspecified; E11.9 Type 2 diabetes mellitus without complications; E78.00 Pure hypercholesterolemia, unspecified; I26.99 Other pulmonary embolism without acute cor pulmonale
CPT/HCPCS: 36415; 80053; 83036; 84443; 85379

== ENCOUNTER 2021-11-15 11:30 | Outpatient (RCR) | payer OTHER, SELFPAY ==
--- NOTE | 2021-10-16 14:28 | MHC.OT.OEV ---
[address] [phone] F: [phone] Occupational Therapy Evaluation Diagnosis: R RADIAL STYLOID TENOSYNOVITIS Date of Onset: 08/27/21 Attending Provider: Gustavo Hernández Prescribed Treatment: EVAL AND RENETTA MD Follow Up Appointment: History of Current Condition: REPORTS A TWO MONTH HISTORY OF R WRIST PAIN. RECEIVED CORTISONE INJECTION 10/03/21 WITH SOME BRIEF RELIEF. SHE STATES SHE IS HAVING DIFFICULTIES RESTING RUE. WEARING PREFAB WRIST SPLINT. 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 TROUBLE WITH GRIPPING PEN FOR WRITING TASKS. Sleep: MODERATE DIFFICULTIES Driving: OCCASIONAL DIFFICULTIES WITH SHIFTING/ PUTTING INTO DIFFERENT GEARS. NO TROUBLE WITH TURNING LYNN IN IGNITION. USING LEFT HAND TO STEER WHEEL. Pain Assessment Pain Score: 6-10/10 Pain Scale Used: Numeric (0 - 10) Pain Location and Description: R RADIAL WRIST, SHARP ACHY 6/10 AT REST 9-10/10 WITH USE Aggravating Factors: MOVEMENT OF THUMB, GENERAL USE Alleviating Factors: MILD RELIEF WITH USE OF BRACE AND PAIN MEDICATION; HAS NOT TRIED HEAT/ICE Skin and Soft Tissue Assessment Skin and Soft Tissue: Swelling Comments: MILD RADIAL WRIST EDEMA Pt MENTIONS POSSIBLE GANGLION CYST AT WRIST? Nerve assessment Comments: REPORTS NUMBNESS/TINGLING AT TIP OF THUMB SINCE CORTISONE INJECTION, ON/OFF NOT CONSISTENT Sensory Assessment Temperature: Light Touch: WFL Edema Assessment Upper Extremity: Right Impaired Lower Extremity: Comments: MILD EDEMA AT RADIAL WRIST Dexterity Assessment Dexterity: Right Impaired Comments: FUNCTIONAL DEXTERITY TEST: RIGHT 25 SECONDS, LEFT 21 SECONDS Special Tests Comments: (+) ALTHEA R AROM(PROM) Strength Elbow Flexion: Extension: Pronation: R 90, L 90 Supination: R 65, L 75 Comments: Flexion: Extension: Pronation: Supination: Comments: Wrist Flexion: R 62, L 60 Extension: R 55, L 60 Ulnar Deviation: R 35, L 40 Radial Deviation: R 10, L 15 Comments: Flexion: Extension: Ulnar Deviation: Radial Deviation: Comments: Thumb Thumb CMC Flexion: Thumb MCP Flexion: Thumb IP Flexion: Radial Abduction: Palmar Abduction: [place] ([place] 0-10): R 8/10, L 10/10 Comments: Digits Index MCP: PIP: DIP: Long MCP: PIP: DIP: Ring MCP: PIP: DIP: Small MCP: PIP: DIP: Comments: Gross Grasp: R 12, L 50 Lateral Pinch: R 11, L 12 Two-Point Pinch: R 7, L 11 Three-Jaw Darci: R 9, L 12 Comments: Patient Education Primary Language: Azeri [employer] Aid Required: No Current Knowledge: Understands information with skills for self-management Teaching Method: Audio/Video Demonstration Handouts Phone Call Verbal Education Needs Identified on Evaluation: ADL's Disease Information Equipment Use Exercise Pain Safety How did patient/family demonstrate learning? Patient demonstrates Patient verbalizes Barriers to Learning: None Readiness for Learning: Accepting Who was educated? Patient Comments: Plan of Care Assessment: MS SANTILLAN REPORTS ABOUT A TWO MONTH HISTORY OF RIGHT RADIAL WRIST PAIN. SHE RECEIVED A CORTISONE INJECTION BY THE ORTHO PA ON 10/03/21 WITH MILD RELIEF. Pt REPORTS DIFFICULTIES WITH RESTING AND MINIMIZING USE THROUGH DOMINANT RIGHT HAND. 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 A 75% LIMITATION IS REPORTED PER THE QUICK DASH ASSESSMENT. ONGOING SKILLED OT IS WARRANTED TO ADDRESS THE AREAS MENTIONED BELOW TO IMPROVE QOL. 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 REPORT <4/10 PAIN WITH LIFTING >10 POUNDS FOR SIMULATED IADLs QUICK DASH <50% Frequency and Duration: The patient will be seen 2X/WEEK FOR 4 WEEKS Treatment Plan: Therapeutic Exercise Therapeutic Activity Home Exercise Program Splinting Neuro Re-ed Patient Education Desensitization/Sensory Re-ed Edema Control ADL Training Ultrasound NMES Iontophoresis Paraffin Fluidotherapy MHP Cold Packs Joint Mobilization Soft Tissue Mobilization Kinesiotaping Other (see comments) Electronically Signed By: NADIRA TRUJILLO OTR/L Reviewed/agree with student documentation: N/A Therapist: Please sign and return to therapist, Thank you for your referral.
--- NOTE | 2021-11-12 15:44 | MHC.OT.OP ---
[address] [phone] F: [phone] Occupational Therapy Progress Note Diagnosis: R RADIAL STYLOID TENOSYNOVITIS Date of Evaluation: 10/16/21 Treatments to Date: 6 Cancellations to Date: 4 No Shows to Date: 0 Subjective: REPORTS MINIMAL IMPROVEMENTS IN R WRIST Pain Score: 6 Pain Location: R RADIAL WRIST Objective Measures: 11/06/21 R RETORT FEEDER GROUND BONE 35 POUNDS, L 55 POUNDS Status: Not Progressing Assessment: MS SANTILLAN HAS ATTENDED SIX THERAPY SESSIONS. SHE CONTINUES TO REPORT HIGH PAIN THROUGH RADIAL THUMB AND WRIST OF HER DOMINANT RUE. SHE REPORTED NO IMPROVEMENT AFTER FOUR TREATMENTS OF IONTOPHORESIS. A HAND BASED THUMB SPICA ORTHOSIS WAS FABRICATED WITH POOR TOLERANCE TO WEARING DURING IADLs. HER RETORT FEEDER GROUND BONE STRENGTH HAS IMPROVED BY ABOUT 15 POUNDS SINCE THE START OF HER THERAPY, AND Pt HAS BEEN EDUCATED ON ACTIVITY MODIFICATION DURING WORK RELATED TASKS/ IADLs. SUSPECT Pt CONTINUES TO UTILIZE DOMINANT RUE FOR IADLs/ WORK TASKS WITH MINIMAL REST, IMPACTING HER PROGRESS IN THERAPY. CONSIDER POSSIBLE HOLD ON OT OR TRANSITION TO A HOME BASED PROGRAM. Short Term Goals: IND HEP (MET) IND USE OF HEAT/ICE (MET) IND EDEMA MANAGEMENT IND ORTHOSIS USE IND ACTIVITY MODIFICATION/ JOINT PROTECTION REPORT <4/10 PAIN AT REST Half-Way Goals: R RETORT FEEDER GROUND BONE >35 POUNDS (MET) REPORT <4/10 PAIN WITH LIFTING >10 POUNDS FOR SIMULATED IADLs QUICK DASH <50% Frequency and Duration: The patient will be seen 2X/WEEK FOR 1 WEEK Treatment Plan: Therapeutic Exercise Therapeutic Activity Home Exercise Program Splinting Neuro Re-ed Patient Education Desensitization/Sensory Re-ed Edema Control ADL Training Ultrasound NMES Iontophoresis Paraffin Fluidotherapy MHP Cold Packs Joint Mobilization Soft Tissue Mobilization Kinesiotaping Other (see comments) CONSIDER POSSIBLE HOLD ON OT OR TRANSITION TO A HOME BASED PROGRAM DUE TO SLOW PROGRESS Electronically Signed By: TRAN MCKEON/Nino Reviewed/agree with student documentation: N/A Therapist:
--- NOTE | 2021-11-21 11:58 | MHC.OT.DC ---
[address] [phone] F: [phone] Occupational Therapy Discharge Note Provider: Gustavo Hernández Diagnosis: R RADIAL STYLOID TENOSYNOVITIS Date of Evaluation: 10/16/21 Date of Discharge: 11/21/21 Treatments to Date: 7 Cancellations to Date: 4 No Shows to Date: 0 Discharge Status: Independent with HEP Discharge Summary: MS SANTILLAN HAD MADE SOME SMALL, GRADUAL IMPROVEMENTS WITH HER THERAPY. SHE CONTINUED TO REPORT MODERATE PAIN THROUGH HER R RADIAL WRIST. SHE FOUND THE NEOPRENE SPLINT TO BE MORE COMFORTABLE THAN THE CUSTOM THUMB SPICA ORTHOSIS THAT WAS FABRICATED IN OT. Pt HAS ELECTED TO HAVE SURGERY AND WILL BE D/C'D FROM OT AT THIS TIME. Electronically Signed By: NADIRA TRUJILLO OTR/L Reviewed/agree with student documentation: N/A Therapist: Please Sign and return to therapist, thank you for your referral.
== END 2021-11-21 11:55 | disposition home or self-care (01) ==
LOC: HO.OT 11:30
PROVIDERS: Visit Provider Physician Assistant
DX: M65.4 Radial styloid tenosynovitis [de Quervain] (principal)
CPT/HCPCS: 29130; 97033; 97035; 97110; 97140; 97165; 97760

== ENCOUNTER → 2021-11-15 13:16 | Outpatient (BNVA) | payer OTHER, SELFPAY | PROVIDERS: PCP Internal Medicine; Visit Provider Physician Assistant | DX: M65.4 Radial styloid tenosynovitis [de Quervain] (principal) | CPT/HCPCS: 99212 ==

== ENCOUNTER 2021-11-30 07:59 | Outpatient (REF) | payer OTHER, SELFPAY ==
--- NOTE | ~2021-11-30 | CT_ITS ---
EXAMINATION: CT ANGIOGRAM OF THE CHEST WITH AND WITHOUT CONTRAST (CT PULMONARY ANGIOGRAM FOR PE) CLINICAL INFORMATION: History of PE. COMPARISON: None TECHNIQUE: Prior to contrast administration, noncontrast localization images were obtained. Subsequently, multidetector volumetric imaging was performed from the thoracic inlet to below the diaphragms following the administration of 80 mL Omnipaque 350 intravenous contrast. No contrast reaction reported Sagittal, coronal, and MIP oblique sagittal reformatted images were obtained on the CT workstation, uploaded to PACS, and reviewed. This CT examination was performed using dose optimization techniques as appropriate, variously including the following: *Automated exposure control *Adjustment of mA and/or kV according to patient size (this includes techniques or standardized protocols for targeted exams where dose is matched to indication/reason for exam; i.e. extremities or head) *Use of iterative reconstruction technique Total exam dose-length product 206 mGy-cm FINDINGS: QUALITY OF STUDY/CONTRAST BOLUS: Satisfactory. PULMONARY ARTERIES: No central or segmental pulmonary emboli. THORACIC AORTA: No aneurysm or dissection. LUNG: No focal consolidation, nodules or masses. PLEURA: No pleural effusion or pneumothorax. MEDIASTINUM: Normal heart size. No pericardial effusion. No hilar or mediastinal lymphadenopathy. No evidence of septal bowing or right heart strain. CHEST WALL/AXILLA: No axillary or internal mammary lymphadenopathy. OSSEOUS STRUCTURES: There is mild ventral spondylosis mid and lower dorsal spine. UPPER ABDOMEN: Visualized liver, spleen and adrenal glands are unremarkable. The gallbladder has been surgically removed. No reflux of contrast into the hepatic veins to suggest elevated right heart pressures. CT/CT angio chest PE protocol IMPRESSION: No evidence of pulmonary emboli. No evidence of aortic aneurysm or dissection. The lungs are clear. VTE: negative.
[2021-11-30] MEDS: iohexoL 350 MG/ML 100 ML INFUS..BTL IV (08:45)
== END 2021-11-30 08:00 | disposition home or self-care (01) ==
LOC: HO.CT 07:59
PROVIDERS: PCP Internal Medicine; Visit Provider Internal Medicine
DX: R79.1 Abnormal coagulation profile (principal); Z86.711 Personal history of pulmonary embolism
CPT/HCPCS: 71275; Q9967

== ENCOUNTER → 2022-01-09 09:07 | Outpatient (BNVA) | payer OTHER, SELFPAY | PROVIDERS: PCP Internal Medicine; Visit Provider Orthopaedic Surgery | DX: M65.4 Radial styloid tenosynovitis [de Quervain] (principal); M79.89 Other specified soft tissue disorders; E11.9 Type 2 diabetes mellitus without complications; Z86.718 Personal history of other venous thrombosis and embolism; Z79.01 Long term (current) use of anticoagulants | CPT/HCPCS: 99212 ==

== ENCOUNTER → 2022-01-10 14:36 | Outpatient (BNVA) | payer OTHER, SELFPAY | PROVIDERS: PCP Internal Medicine; Visit Provider Physician Assistant | DX: M65.4 Radial styloid tenosynovitis [de Quervain] (principal) | CPT/HCPCS: 20550; 99212; J1100 ==

== ENCOUNTER 2022-01-23 15:46 | Outpatient (REF) | payer OTHER, SELFPAY ==
[2022-01-23 17:15] LABS: Estimated Average Glucose 174 mg/dL; Hemoglobin A1c % 7.7 %
[2022-01-23 17:29] LABS: Alanine Aminotransferase 19 U/L (0-31); Albumin Level 4.1 g/dL (3.5-5.0); Alkaline Phosphatase 78 U/L (39-117); Anion Gap 17 (12-20); Aspartate Amino Transferase 19 U/L (5-31); Bilirubin Total 0.8 mg/dL (0.0-1.0); Blood Urea Nitrogen 15 mg/dL (9-16); Calcium 9.5 mg/dL (8.4-10.2); Carbon Dioxide 26 mmol/L (22-29); Chloride 100 mmol/L (96-108); Estimated Glomerular Filt Rate 58; Glucose Random 101 mg/dL (60-115); Potassium 3.8 mmol/L (3.3-5.1); Sodium 139 mmol/L (135-145); Total Protein 6.8 g/dL (6.5-8.0)
[2022-01-23 17:50] LABS: Thyroid Stimulating Hormone 0.63 uIU/mL (0.32-4.0)
== END 2022-01-23 15:47 | disposition home or self-care (01) ==
LOC: HO.LAB 15:46
PROVIDERS: PCP Internal Medicine; Visit Provider Internal Medicine
DX: E03.8 Other specified hypothyroidism (principal); E11.65 Type 2 diabetes mellitus with hyperglycemia; R06.02 Shortness of breath; R79.1 Abnormal coagulation profile; Z86.711 Personal history of pulmonary embolism
CPT/HCPCS: 36415; 80053; 83036; 84443

== ENCOUNTER → 2022-02-26 12:32 | Outpatient (BNVA) | payer OTHER, SELFPAY | PROVIDERS: PCP Internal Medicine; Visit Provider Orthopaedic Surgery | DX: M65.4 Radial styloid tenosynovitis [de Quervain] (principal); M79.89 Other specified soft tissue disorders | CPT/HCPCS: 99212 ==

== ENCOUNTER 2022-04-15 07:14 | Outpatient (REF) | payer OTHER, SELFPAY ==
[2022-04-15 07:31] LABS: MANUAL DIFF FLAG NO
[2022-04-15 08:10] LABS: Basophils Percent Auto 0.5 % (0-2); Eosinophils Absolute Auto 0.2 X10*3/uL (0.0-0.4); Eosinophils Percent Auto 2.4 % (0-4); Hematocrit 34.2 % (37.0-47.0); Hemoglobin 10.5 g/dl (12.0-16.0); Imm Gran Abs Auto 0.02 X10*3/uL (0.00-0.03); Imm Gran Pct Auto 0.2 % (0.0-0.4); Lymphocytes Percent Auto 36.4 % (20-40); Mean Corpuscular HGB Conc 30.7 g/dl (31.0-35.0); Mean Corpuscular Hemoglobin 23.4 pg (27.0-33.0); Mean Corpuscular Volume 76.2 fL (80.0-98.0); Mean Platelet Volume 11.6 fL (9.4-12.3); Monocytes Absolute Auto 0.7 X10*3/uL (0.1-1.2); Monocytes Percent Auto 8.9 % (2-11); Neutrophils Absolute Auto 4.2 x10*3/uL (2.0-8.3); Neutrophils Percent Auto 51.6 % (45-73); Platelet Count 157 X10*3/uL (160-400); Red Blood Count 4.49 X10*6/uL (4.20-5.50); Red Cell Distribution Width 15.7 % (11.0-16.0); White Blood Count 8.2 X10*3/uL (4.8-10.8)
[2022-04-15 08:58] LABS: Alanine Aminotransferase 15 U/L (0-31); Albumin Level 3.8 g/dL (3.5-5.0); Alkaline Phosphatase 86 U/L (39-117); Anion Gap 15 (12-20); Aspartate Amino Transferase 14 U/L (5-31); Bilirubin Total 0.3 mg/dL (0.0-1.0); Blood Urea Nitrogen 20 mg/dL (9-16); Calcium 8.6 mg/dL (8.4-10.2); Carbon Dioxide 26 mmol/L (22-29); Chloride 103 mmol/L (96-108); Estimated Glomerular Filt Rate > 60; Glucose Random 130 mg/dL (60-115); Potassium 3.3 mmol/L (3.3-5.1); Sodium 141 mmol/L (135-145); Total Protein 6.3 g/dL (6.5-8.0)
[2022-04-15 09:02] LABS: Ferritin 21 ng/mL (10-250)
== END 2022-04-15 07:15 | disposition home or self-care (01) ==
LOC: HO.LAB 07:14
PROVIDERS: PCP Internal Medicine; Visit Provider Internal Medicine Medical Oncology
DX: D50.9 Iron deficiency anemia, unspecified (principal)
CPT/HCPCS: 36415; 80053; 82728; 85025

== ENCOUNTER 2022-04-24 08:48 | Outpatient (REF) | payer OTHER, SELFPAY ==
[2022-04-24 09:08] LABS: MANUAL DIFF FLAG NO
[2022-04-24 09:22] LABS: Basophils Absolute Auto 0.1 X10*3/uL (0.0-0.2); Basophils Percent Auto 0.7 % (0-2); Eosinophils Absolute Auto 0.2 X10*3/uL (0.0-0.4); Eosinophils Percent Auto 2.3 % (0-4); Hematocrit 35.1 % (37.0-47.0); Hemoglobin 10.7 g/dl (12.0-16.0); Imm Gran Abs Auto 0.02 X10*3/uL (0.00-0.03); Imm Gran Pct Auto 0.2 % (0.0-0.4); Lymphocytes Absolute Auto 2.1 X10*3/uL (1.2-4.9); Lymphocytes Percent Auto 25.8 % (20-40); Mean Corpuscular HGB Conc 30.5 g/dl (31.0-35.0); Mean Corpuscular Volume 75.5 fL (80.0-98.0); Monocytes Absolute Auto 0.8 X10*3/uL (0.1-1.2); Monocytes Percent Auto 9.6 % (2-11); Neutrophils Absolute Auto 5.1 x10*3/uL (2.0-8.3); Neutrophils Percent Auto 61.4 % (45-73); Platelet Count 155 X10*3/uL (160-400); Red Blood Count 4.65 X10*6/uL (4.20-5.50); Red Cell Distribution Width 15.5 % (11.0-16.0); White Blood Count 8.2 X10*3/uL (4.8-10.8)
[2022-04-24 09:33] LABS: Estimated Average Glucose 151 mg/dL; Hemoglobin A1c % 6.9 %
[2022-04-24 09:55] LABS: Alanine Aminotransferase 15 U/L (0-31); Alkaline Phosphatase 87 U/L (39-117); Anion Gap 16 (12-20); Aspartate Amino Transferase 15 U/L (5-31); Bilirubin Total 0.3 mg/dL (0.0-1.0); Blood Urea Nitrogen 15 mg/dL (9-16); Calcium 8.7 mg/dL (8.4-10.2); Carbon Dioxide 29 mmol/L (22-29); Chloride 102 mmol/L (96-108); Estimated Glomerular Filt Rate 59; Glucose Random 179 mg/dL (60-115); Sodium 143 mmol/L (135-145); Total Protein 6.7 g/dL (6.5-8.0)
== END 2022-04-24 08:49 | disposition home or self-care (01) ==
LOC: HO.LAB 08:48
PROVIDERS: PCP Internal Medicine; Visit Provider Internal Medicine
DX: E03.8 Other specified hypothyroidism (principal); E11.9 Type 2 diabetes mellitus without complications; R06.02 Shortness of breath; Z79.01 Long term (current) use of anticoagulants
CPT/HCPCS: 36415; 80053; 83036; 85025

== ENCOUNTER → 2022-04-25 13:57 | Outpatient (BNVA) | payer OTHER, SELFPAY | PROVIDERS: PCP Internal Medicine; Visit Provider Hospitalist | DX: J44.9 Chronic obstructive pulmonary disease, unspecified (principal); G47.33 Obstructive sleep apnea (adult) (pediatric); Z86.711 Personal history of pulmonary embolism; Z79.899 Other long term (current) drug therapy; Z79.01 Long term (current) use of anticoagulants | CPT/HCPCS: 99202 ==

== ENCOUNTER 2022-05-02 09:52 | Outpatient (REF) | payer OTHER, SELFPAY ==
--- NOTE | 2022-05-02 11:04 | MHC.SHP ---
Pre-Procedural Eval Section A Date of Service: 05/02/22 The patient is an INPATIENT: No Changes since office visit: No Cold of Flu in the past 2 weeks, No New Medical Problems, No Changes in Medication and No Patient answered all questions The History & Physical has been completed within 30 days and I have reviewed it.: Yes Section B Chief Complaint: Dequervains Allergies: Allergies Allergy/AdvReac Type Severity Reaction Status Date / Time lisinopril [LISINOPRIL] Allergy Severe ANGIOEDEMA Verified 04/25/22 14:04 dapagliflozin [From FARXIGA] Allergy Intermediate HIVES Verified 04/25/22 14:04 liraglutide [From VICTOZA] Allergy Intermediate RASH Verified 04/25/22 14:04 metformin [METFORMIN] Allergy Intermediate GI UPSET Verified 04/25/22 14:04 erythromycin base Allergy Unknown UNKNOWN Verified 04/25/22 14:04 [ERYTHROMYCIN BASE] amitriptyline [AMITRIPTYLINE] AdvReac Intermediate DRUGGED Verified 04/25/22 14:04 FEELING Plan I have reviewed the history and physical and performed a pertinent physical examination on my patient. No changes have occurred unless specified.
--- NOTE | 2022-05-02 11:05 | W.PM.OPN ---
Operative Note Operative Note Date of Service: 05/02/22 Narrative: Operative Note Preop diagnosis: 1. right DeQuervain's tenosynovitis Postop diagnosis: 1. right DeQuervain's tenosynovitis Procedure: 1. right 1st dorsal compartment release Surgeon: Maia Yadav MD Anesthesia: local block using 1% lidocaine with epinephrine Findings: Thickened 1st dorsal compartment. hourglass deformity of the tendons because of the thickened 1st dorsal compartment EBL: Less than 5 mL Tourniquet time: None Specimens: None Complications: None Disposition: Brought to recovery room in stable condition Plan: Follow-up for 7-10 days for wound check and suture removal Indications: The patient is 46 years old, with right DeQuervain's tenosynovitis that has been unresponsive to nonoperative management. The risks and benefits of operative treatment including but not limited to risk of damage to blood vessels, nerves, tendons, infection, persistent pain, persistent symptoms, recurrence or possible need for additional surgery were discussed with the patient and the patient wishes to proceed with surgery. Procedure: Once consent was obtained a local block was performed in the preop area using a combination of 1% lidocaine with epinephrine. The patient was then brought back to the operating suite and placed on the operative table in supine position. A tourniquet was applied to the proximal aspect of the right upper extremity and the limb was prepped and draped in a standard surgical fashion. Once assured that we had a good block, a 1.5 cm longitudinal incision was made centered over the 1st dorsal compartment as it passed over the radial styloid of the right wrist. The incision was made through the skin to the subcutaneous tissues using a #15 blade. Careful dissection was made down to the level of the 1st dorsal compartment using tenotomy scissors, with care being taken to protect the nearby branches of the superficial radial nerve. Once the 1st dorsal compartment was exposed, A longitudinal incision was made in the 1st dorsal compartment 1st using a #15 blade, then using tenotomy scissors under direct visualization. The 1st dorsal compartment was noted to be thickened. Following our release, we saw smooth gliding abductor pollicis longus and extensor pollicis brevis tendons. Once satisfied with our 1st dorsal compartment release the wound was copiously irrigated with normal saline and hemostasis was obtained with a brief period of local pressure. The subcutaneous layer was closed with some 4-0 Vicryl suture, and the skin edges were reapproximated with some 5.0 nylon suture material. A sterile dressing was applied. The patient appears to have tolerated the procedure well and with no complications. All digits were well vascularized at the conclusion of the case..
== END 2022-05-02 09:53 | disposition home or self-care (01) ==
LOC: HO.MS 09:52
PROVIDERS: PCP Internal Medicine; Visit Provider Orthopaedic Surgery
PROC: (CPT 25000; principal; 2022-05-02 12:30)
DX: M65.4 Radial styloid tenosynovitis [de Quervain] (principal); M79.89 Other specified soft tissue disorders; E11.9 Type 2 diabetes mellitus without complications; I10 Essential (primary) hypertension; E78.5 Hyperlipidemia, unspecified; F41.1 Generalized anxiety disorder; Z86.711 Personal history of pulmonary embolism; Z79.01 Long term (current) use of anticoagulants; Z86.16 Personal history of COVID-19
CPT/HCPCS: 25000; J0171

== ENCOUNTER 2022-05-16 10:12 | Outpatient (REF) | payer OTHER, SELFPAY ==
--- NOTE | 2022-05-16 13:22 | PFT_ITS ---
FLOWS: FEV1 90% of predicted at 2.66 L. FVC 81% of predicted at 3.02 L. FEV1 to FVC ratio of 0.88. No bronchodilator response. LUNG VOLUMES: Total lung capacity 80% of predicted at 4.20 L. Residual volume 67% of predicted at 1.21 L. Slow vital capacity 87% of predicted at 2.99 L. Expiratory reserve volume 32% of predicted at 0.36 L. Diffusion capacity is mildly decreased, diffusion capacity corrects to normal after adjustment for alveolar ventilation. IMPRESSION: No obstructive or restrictive ventilatory defect. No bronchodilator response. Decreased expiratory reserve volume suggests extrathoracic restriction likely secondary to abdominal obesity. Martinez Brown MD AP/MODL / [id number]
== END 2022-05-16 10:13 | disposition home or self-care (01) ==
LOC: HO.RESP 10:12
PROVIDERS: PCP Internal Medicine; Visit Provider Hospitalist
DX: G47.33 Obstructive sleep apnea (adult) (pediatric) (principal); N94.10 Unspecified dyspareunia; R06.00 Dyspnea, unspecified
CPT/HCPCS: 94060; 94727; 94729

== ENCOUNTER 2022-05-27 | Outpatient (REF) | payer OTHER, SELFPAY ==
--- NOTE | ~2022-05-27 | XR_ITS ---
EXAMINATION: XR KNEE, LEFT CLINICAL INFORMATION: Left knee pain. COMPARISON: 09/16/2019 TECHNIQUE: Two views of the left knee. FINDINGS: Tricompartmental osteoarthritis of the left knee is characterized by moderate size marginal osteophytes. There are joint space narrowing at the lateral facet of the patellofemoral compartment and at the medial compartment (as seen on prior study). No significant joint effusion. No appreciable fractures on these images. No osseous loose bodies. XR/XR knee LT 2V IMPRESSION: Mild tricompartmental osteoarthritis of the left knee, more notable in the medial and patellofemoral compartments.
== END 2022-05-27 00:01 | disposition home or self-care (01) ==
LOC: HO.HOSX
PROVIDERS: Visit Provider Physician Assistant
DX: M17.12 Unilateral primary osteoarthritis, left knee (principal)
CPT/HCPCS: 20610; 73560; 99212; J1020

== ENCOUNTER → 2022-06-24 12:29 | Outpatient (BNVA) | payer OTHER, SELFPAY | PROVIDERS: PCP Internal Medicine; Visit Provider Orthopaedic Surgery | DX: M17.12 Unilateral primary osteoarthritis, left knee (principal); S83.232A Complex tear of medial meniscus, current injury, left knee, initial encounter; E66.01 Morbid (severe) obesity due to excess calories; Z68.42 Body mass index [BMI] 45.0-49.9, adult | CPT/HCPCS: 99212 ==

== ENCOUNTER 2022-06-27 15:08 | Outpatient (REF) | payer OTHER, SELFPAY ==
--- NOTE | ~2022-06-27 | MM_ITS ---
EXAMINATION: MM SCREENING DIGITAL BREAST TOMOSYNTHESIS, BILATERAL CLINICAL INFORMATION: Screening. Asymptomatic. The lifetime risk of breast cancer based on the Tyrer-Cuzick Model is 10%. COMPARISON: Mammography: 06/01/2021, 03/01/2020, 02/24/2019 TECHNIQUE: Digital breast tomosynthesis is performed in both the craniocaudal and mediolateral oblique views along with computer-aided detection (CAD). Synthesized 2D images are generated from the tomosynthesis. FINDINGS: There are scattered areas of fibroglandular density (ACR BI-RADS breast composition Category b). There are no significant masses, abnormal calcifications, or other abnormalities. No architectural abnormality or developing density. Parenchymal pattern is similar to prior exams. The axilla and skin contours are unremarkable. MM/MM tomosynthesis screening BI IMPRESSION: No mammographic evidence of malignancy. ASSESSMENT: BI-RADS 1: Negative RECOMMENDATION: Routine annual mammography screening. This patient's information was entered into a reminder system with a target due date for their next mammogram.
== END 2022-06-27 15:09 | disposition home or self-care (01) ==
LOC: HO.MAMMO 15:08
PROVIDERS: PCP Internal Medicine; Visit Provider Internal Medicine
DX: Z12.31 Encounter for screening mammogram for malignant neoplasm of breast (principal)
CPT/HCPCS: 77063; 77067

== ENCOUNTER 2022-07-11 13:10 | Outpatient (REF) | payer OTHER, SELFPAY ==
[2022-07-12 18:26] LABS: Gliadin Deamidated IgA Ab <1.0 U/mL; Gliadin Deamidated IgG Ab <1.0 U/mL; Transglutaminase Ab IgG <1.0 U/mL; Transglutaminase IgA <1.0 U/mL
[2022-07-13 14:56] LABS: Immunoglobulin A 183 mg/dL (47-310)
[2022-07-17 20:46] LABS: Endomysial IgA Antibody Negative (Negative)
== END 2022-07-11 13:11 | disposition home or self-care (01) ==
LOC: HO.LAB 13:10
PROVIDERS: PCP Internal Medicine; Visit Provider Internal Medicine
DX: K58.9 Irritable bowel syndrome, unspecified (principal); D50.9 Iron deficiency anemia, unspecified
CPT/HCPCS: 36415; 82784; 86231; 86258; 86364

== ENCOUNTER 2022-07-20 10:07 | Outpatient (REF) | payer OTHER, SELFPAY ==
[2022-07-20 10:22] LABS: MANUAL DIFF FLAG NO
[2022-07-20 10:37] LABS: Basophils Absolute Auto 0.1 X10*3/uL (0.0-0.2); Basophils Percent Auto 0.6 % (0-2); Hemoglobin 10.8 g/dl (12.0-16.0); PLT CLUMP 1; SCAN SMEAR FLAG 1
[2022-07-20 10:39] LABS: Eosinophils Absolute Auto 0.2 X10*3/uL (0.0-0.4); Eosinophils Percent Auto 2.1 % (0-4); Hematocrit 35.2 % (37.0-47.0); Imm Gran Abs Auto 0.04 X10*3/uL (0.00-0.03); Imm Gran Pct Auto 0.4 % (0.0-0.4); Lymphocytes Absolute Auto 2.3 X10*3/uL (1.2-4.9); Lymphocytes Percent Auto 23.4 % (20-40); Mean Corpuscular HGB Conc 30.7 g/dl (31.0-35.0); Mean Corpuscular Volume 74.9 fL (80.0-98.0); Mean Platelet Volume 11.1 fL (9.4-12.3); Monocytes Absolute Auto 0.8 X10*3/uL (0.1-1.2); Monocytes Percent Auto 7.8 % (2-11); Neutrophils Absolute Auto 6.4 x10*3/uL (2.0-8.3); Neutrophils Percent Auto 65.7 % (45-73); PLT ABN DIST 1; Platelet Count 135 X10*3/uL (160-400); White Blood Count 9.8 X10*3/uL (4.8-10.8)
[2022-07-20 11:06] LABS: Alanine Aminotransferase 15 U/L (0-31); Albumin Level 3.9 g/dL (3.5-5.0); Alkaline Phosphatase 79 U/L (39-117); Anion Gap 17 (12-20); Aspartate Amino Transferase 14 U/L (5-31); Bilirubin Total 0.4 mg/dL (0.0-1.0); Blood Urea Nitrogen 18 mg/dL (9-16); Carbon Dioxide 25 mmol/L (22-29); Chloride 101 mmol/L (96-108); Cholesterol 142 mg/dL; Estimated Glomerular Filt Rate > 60; Glucose Random 150 mg/dL (60-115); HDL Cholesterol 44 mg/dL; LDL Cholesterol Calculated 61 mg/dl; Potassium 3.5 mmol/L (3.3-5.1); Sodium 139 mmol/L (135-145); Total Protein 6.7 g/dL (6.5-8.0); Triglycerides 189 mg/dL
[2022-07-20 11:12] LABS: Estimated Average Glucose 157 mg/dL; Hemoglobin A1C 152.2814 umol/L; Hemoglobin A1c % 7.1 %
[2022-07-20 11:26] LABS: Ferritin 16 ng/mL (10-250)
[2022-07-20 11:32] LABS: Vitamin B12 1115 pg/mL (200-900)
[2022-07-20 11:43] LABS: Creatinine Urine 39.45 mg/dL; Microalbumin Urine < 5.0 mg/L
== END 2022-07-20 10:08 | disposition home or self-care (01) ==
LOC: HO.LAB 10:07
PROVIDERS: Absent Provider Internal Medicine Medical Oncology; PCP Internal Medicine; Visit Provider Internal Medicine
DX: D50.9 Iron deficiency anemia, unspecified (principal); E03.8 Other specified hypothyroidism; E11.9 Type 2 diabetes mellitus without complications; E78.2 Mixed hyperlipidemia; Z79.01 Long term (current) use of anticoagulants
CPT/HCPCS: 36415; 80053; 80061; 82043; 82607; 82728; 82746; 83036; 84443; 85025

== ENCOUNTER → 2022-07-25 15:04 | Outpatient (REF) | payer OTHER, SELFPAY | LOC: HO.SL 15:04 | PROVIDERS: PCP Internal Medicine; Visit Provider Hospitalist | DX: G47.33 Obstructive sleep apnea (adult) (pediatric) (principal) | CPT/HCPCS: 95806 ==

== ENCOUNTER → 2022-08-16 15:19 | Outpatient (BNVA) | payer OTHER, SELFPAY | PROVIDERS: PCP Internal Medicine; Visit Provider Hospitalist | DX: G47.33 Obstructive sleep apnea (adult) (pediatric) (principal); R06.00 Dyspnea, unspecified; Z86.711 Personal history of pulmonary embolism | CPT/HCPCS: 99212 ==

== ENCOUNTER 2022-09-04 08:31 | Outpatient (REF) | payer OTHER, SELFPAY | END 2022-09-04 08:32 | disposition home or self-care (01) | LOC: HO.MAMMO 08:31 | PROVIDERS: Visit Provider Internal Medicine | DX: Z13.89 Encounter for screening for other disorder (principal) ==

== ENCOUNTER 2022-09-04 08:37 | Day surgery (SDC) | payer OTHER, SELFPAY ==
--- NOTE | 2022-07-12 10:55 | P.CONAN_ITS ---
HPI - Anesthesia Eval Consult details Narrative: 46yo F for Colonoscopy Eliquis for PE (~2020) PMFSH Active Problems Active Problems: All Active Problems (Updated 06/24/22 @ 12:55 by Dwight Garcia) Morbid obesity with BMI of 45.0-49.9, adult (Acute) Complex tear of medial meniscus of left knee (Acute) Diabetes mellitus (Acute) Patellofemoral arthritis of left knee (Acute) History of pulmonary embolus (PE) (Acute ~2020) Dyspnea (Acute) SERA (obstructive sleep apnea) (Acute) De Quervain's tenosynovitis, left (Acute) Mass of soft tissue of right upper extremity (Acute) Osteoarthritis of left knee (Acute) COVID-19 (Acute) Osteoarthritis of right knee (Acute) Osteoarthritis of right ankle (Acute) De Quervain's tenosynovitis, right (Acute) Past Medical History Medical History Anemia Anxiety Chronic headaches Diabetes type 2, controlled Dyspareunia in female Dyspnea Dyspnea on exertion History of COVID-19 (~2020) History of pulmonary embolus (PE) (~2020) HTN (hypertension) Hyperlipidemia Hypothyroid Morbid obesity Obstructive sleep apnea Family History Family History Father Myocardial infarction COPD (chronic obstructive pulmonary disease) Mother COPD (chronic obstructive pulmonary disease) Brother Colitis Surgical History Surgical History History of carpal tunnel surgery History of ERCP History of foot surgery History of laparoscopic cholecystectomy History of surgery History of tubal ligation History of Problems with Anesthesia: No Social History Social History Alcohol intake: never Patient Tobacco Use Status: Never used Tobacco Current occupational status: employed 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 Allergies Allergy/AdvReac Type Severity Reaction Status Date / Time lisinopril [LISINOPRIL] Allergy Severe ANGIOEDEMA Verified 06/24/22 12:35 dapagliflozin [From FARXIGA] Allergy Intermediate HIVES Verified 06/24/22 12:35 liraglutide [From VICTOZA] Allergy Intermediate RASH Verified 06/24/22 12:35 metformin [METFORMIN] Allergy Intermediate GI UPSET Verified 06/24/22 12:35 erythromycin base Allergy Unknown UNKNOWN Verified 06/24/22 12:35 [ERYTHROMYCIN BASE] amitriptyline [AMITRIPTYLINE] AdvReac Intermediate DRUGGED Verified 06/24/22 12:35 FEELING Home Medications Medication Instructions Recorded Confirmed Last Taken Type atorvastatin 20 mg tablet 20 mg PO BEDTIME 09/14/20 04/25/22 Unknown History glimepiride 4 mg tablet 4 mg PO DAILY 09/14/20 04/25/22 Unknown History levothyroxine 25 mcg capsule 25 mcg PO DAILY 09/14/20 04/25/22 07/06/21 History valsartan 320 mg tablet 320 mg PO DAILY 09/14/20 04/25/22 Unknown History apixaban 5 mg tablet (Eliquis) 5 mg PO BID 02/21/21 04/25/22 07/02/21 History sitagliptin 50 mg-metformin ER 1 tab PO DAILY 02/21/21 04/25/22 Unknown History 1,000 mg tablet,extended release 24h mp (Janumet XR) blood sugar diagnostic (FreeStyle #10 ea 02/26/22 04/25/22 Unknown History Lite Strips) Exam Exam Date and Time: July 12, 2022 1055 Pertinent Lab Results Pertinent Lab Results: Laboratory Tests 04/24/22 04/24/22 09:06 09:06 WBC 8.2 Hgb 10.7 L Hct 35.1 L Plt Count 155 L Sodium 143 Potassium 4.0 D Chloride 102 Carbon Dioxide 29 BUN 15 Creatinine 1.01 Assessment and Plan Assessment Anesthesia Assessment: Chart Reviewed Final Anesthetic Review History of Problems with Anesthesia: No
[2022-09-04 08:10] VITALS: BMI 51.5
[2022-09-04 08:42] VITALS: BP 117/68; PULSE 88; RESP 18; TEMP 36.1; O2SAT 96
[2022-09-04 08:48] LABS: Glucose, Whole Blood 192 mg/dL (60-115)
[2022-09-04] MEDS: Lactated Ringers 1,000 ML 100 ML IVCONT (09:02)
--- NOTE | 2022-09-04 09:53 | HO.ANESPROP2 ---
[facility] Active Problems Active Problems: All Active Problems (Updated 08/16/22 @ 15:46 by Odilon Land MD) Pulmonary emboli (Acute) Morbid obesity with BMI of 45.0-49.9, adult (Acute) Complex tear of medial meniscus of left knee (Acute) Diabetes mellitus (Acute) Patellofemoral arthritis of left knee (Acute) History of pulmonary embolus (PE) (Acute ~2020) Dyspnea (Acute) SERA (obstructive sleep apnea) (Acute) De Quervain's tenosynovitis, left (Acute) Mass of soft tissue of right upper extremity (Acute) Osteoarthritis of left knee (Acute) COVID-19 (Acute) Osteoarthritis of right knee (Acute) Osteoarthritis of right ankle (Acute) De Quervain's tenosynovitis, right (Acute) Past Medical History Medical History Anemia Anxiety Chronic headaches Diabetes type 2, controlled Dyspareunia in female Dyspnea Dyspnea on exertion History of COVID-19 (~2020) History of pulmonary embolus (PE) (~2020) HTN (hypertension) Hyperlipidemia Hypothyroid Morbid obesity Obstructive sleep apnea Pulmonary emboli Family History Family History Father Myocardial infarction COPD (chronic obstructive pulmonary disease) Mother COPD (chronic obstructive pulmonary disease) Brother Colitis Surgical History Surgical History History of carpal tunnel surgery History of ERCP History of foot surgery History of laparoscopic cholecystectomy History of surgery History of tubal ligation History of Problems with Anesthesia: No Social History Social History Alcohol intake: never Patient Tobacco Use Status: Never used Tobacco Are you DNR?: No Advance Directives: No Advance Directives Information Provided: Yes Current occupational status: employed 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 Meds Allergies Allergy/AdvReac Type Severity Reaction Status Date / Time lisinopril [LISINOPRIL] Allergy Severe ANGIOEDEMA Verified 08/16/22 15:28 dapagliflozin [From FARXIGA] Allergy Intermediate HIVES Verified 08/16/22 15:28 liraglutide [From VICTOZA] Allergy Intermediate RASH Verified 08/16/22 15:28 metformin [METFORMIN] Allergy Intermediate GI UPSET Verified 08/16/22 15:28 erythromycin base Allergy Unknown UNKNOWN Verified 08/16/22 15:28 [ERYTHROMYCIN BASE] amitriptyline [AMITRIPTYLINE] AdvReac Intermediate DRUGGED Verified 08/16/22 15:28 FEELING Active Medications: Current Medications Lactated Ringer's (Lr) 1,000 mls @ 100 mls/hr IVCONT .Q10H SHABBIR Last Admin: 09/04/22 09:02 Dose: 100 mls/hr Sodium Biphosphate/Sodium Phosphate (Sodium Phosphate,[place]-Dibasic 133 Ml Enema) 133 ml OH ONCE PRN PRN Reason: Poor Colonoscopy Prep Results Home Medications Medication Instructions Recorded Confirmed Last Taken Type atorvastatin 20 mg tablet 20 mg PO BEDTIME 09/14/20 04/25/22 Unknown History glimepiride 4 mg tablet 4 mg PO DAILY 09/14/20 04/25/22 Unknown History apixaban 5 mg tablet (Eliquis) 5 mg PO BID 02/21/21 04/25/22 07/02/21 History sitagliptin phos 50 mg-metformin 1 tab PO DAILY 02/21/21 04/25/22 Unknown History ER 1,000 mg tablet,extend rel 24h mp (Janumet XR) blood sugar diagnostic (FreeStyle #10 ea 02/26/22 04/25/22 Unknown History Lite Strips) cyanocobalamin (vitamin B-12) 1,000 mcg PO DAILY 08/16/22 Unknown History 1,000 mcg tablet empagliflozin 10 mg tablet 10 mg PO QAM 08/16/22 Unknown History (Jardiance) fluticasone propionate 110 2 puff inhalation BID 08/16/22 Unknown History mcg/actuation HFA aerosol inhaler (Flovent HFA) levothyroxine 50 mcg tablet 50 mcg PO DAILY 08/16/22 Unknown History valsartan 320 1 tab PO DAILY 08/16/22 Unknown History mg-hydrochlorothiazide 25 mg tablet Exam Exam Date and Time: September 04, 2022 0953 Height,Weight and Vital Signs: Height 5 ft 5 in Weight 140.614 kg Last Vital Signs Temp 97 F 09/04/22 08:42 Pulse 88 09/04/22 08:42 Resp 18 09/04/22 08:42 BP 117/68 09/04/22 08:42 Pulse Ox 96 09/04/22 08:42 O2 Del Method 09/04/22 08:42 Pertinent Lab Results Pertinent Lab Results: Laboratory Tests 09/04/22 08:45 POC Glucose 192 H Airway Mallampati Class: II TM Dist: >3cm Neck ROM: Full Heart: Rr Lungs: CTA Assessment and Plan Final Anesthetic Review History of Problems with Anesthesia: No ASA Class: III Final Preanesthetic Review: No Changes in Pt Med Stat, Meds/Allgs Chart Reviewed, Consent Obtained/Reviewed and Anes Risks/Benef Reviewed Patient Risk: Intermediate Procedure Risk: Low Anesthetic Plan Anesthetic Plan: MAC: Disposition: Standard PACU
[2022-09-04 10:50] VITALS: BP 102/56; PULSE 77; RESP 16; TEMP 36.1; O2SAT 95
--- NOTE | 2022-09-04 10:55 | P.BOP_ITS ---
Brief Operative Note Date of Service: 09/04/22 Pre-op diagnosis: Screening, diarrhea Procedure: Polyp, R/O microscopic colitis Surgeon: Dario Ramsey Anesthesia: MAC Was an Wire Winding Machine Operator used for this Procedure?: No Estimated blood loss (mL): 2.0 Pathology: other (A. Ascending colon B. Descending colon C. Rectal polyp) Condition: stable Disposition: PACU
[2022-09-04 11:05] VITALS: BP 106/57; PULSE 75; RESP 16; TEMP 36.1; O2SAT 98
[2022-09-04 11:19] VITALS: BP 121/73; PULSE 67; RESP 16; TEMP 36.1; O2SAT 98
--- NOTE | 2022-09-04 11:50 | OP_ITS ---
SURGEON: Dario Ramsey MD INDICATIONS: The patient presents for evaluation of colorectal cancer screening and irregular bowel movements with predominantly diarrhea. Full consent has been obtained from her for this, including risks of bleeding and perforation. PREOPERATIVE DIAGNOSIS: POSTOPERATIVE DIAGNOSIS: PROCEDURE PERFORMED: ESTIMATED BLOOD LOSS: COMPLICATIONS: ANESTHESIA: Medication used, monitored anesthesia care. ASSISTANTS: SPECIMENS: PREOPERATIVE DIAGNOSES: Colorectal cancer screening, irregular bowel movements with predominantly diarrhea. POSTOPERATIVE DIAGNOSES: Colorectal cancer screening, irregular bowel movements with predominantly diarrhea, rectal polyp, rule out microscopic colitis, mild diverticulosis, and small internal hemorrhoids. PROCEDURES PERFORMED: Colonoscopy to the cecum and terminal ileum with biopsies, hot snare polypectomy, placement of 3 resolution clips on the rectal polypectomy site, and marking of the rectal polypectomy site with submucosal ink. DESCRIPTION OF PROCEDURE: The patient was placed in the left lateral decubitus position. The digital rectal exam revealed no abnormalities. The Geofusion video pediatric colonoscope was entered into the rectum and advanced easily to the cecum. Once in the cecum, I did identify normal-appearing cecal pouch with appendiceal orifice and a normal-appearing ileocecal valve. The terminal ileum was cannulated and appeared normal. The scope was withdrawn back in the colon. The entire cecum and ileocecal valve appeared normal. The scope was slowly withdrawn assessing all mucosal surfaces carefully. Preparation was excellent. I did not visualize any sign of colitis nor angiodysplasia. Random biopsies were obtained in the ascending and descending colon to rule out microscopic colitis. There was a mild amount of sigmoid diverticulosis. In the rectum, scope was retroflexed visualizing some small internal hemorrhoids, but no other pathology. However, in the forward viewing position and what appeared to be the mid-rectum on the posterior wall was an approximately 1.5 cm polyp on a very short stalk. This was snared with the hot snare polypectomy and recovered by withdrawing it on the tip of the scope. The colonoscope was readvanced back into the rectum. The polypectomy site appeared clean, without any sign of residual polyp nor bleeding. Three Resolution clips were applied with good deployment and good hemostasis given that she has to go back on her Eliquis. I also placed a small submucosal ink raghavendra on each side of the polypectomy site as well. The scope was withdrawn from the patient. She tolerated the procedure well and was returned to the recovery area in stable condition. IMPRESSION: 1. Rectal polyp. 2. Mild diverticulosis. 3. Small internal hemorrhoids. 4. Rule out microscopic colitis. PLAN: The results of the pathology will be checked. She was advised to resume her Eliquis in 24 hours. Assuming the rectal polyp is just adenomatous, I would then recommend a repeat colonoscopy in 2-3 years. She was advised to stay off all aspirin and NSAIDs long-term while on Eliquis. She was advised to resume her iron today as well. MD DILMA Feliciano/OBDULIA / [id number] MTDD
== END 2022-09-04 11:44 | disposition home or self-care (01) ==
PROVIDERS: PCP Internal Medicine; Visit Provider Internal Medicine
PROC: 0DJD8ZZ Inspection of Lower Intestinal Tract, Via Natural or Artificial Opening Endoscopic (ICD-10-PCS; CPT 45378; principal; 2022-09-04 09:40)
DX: Z12.11 Encounter for screening for malignant neoplasm of colon (principal); D12.8 Benign neoplasm of rectum; K57.30 Diverticulosis of large intestine without perforation or abscess without bleeding; K64.8 Other hemorrhoids; K58.0 Irritable bowel syndrome with diarrhea; I26.99 Other pulmonary embolism without acute cor pulmonale; D64.9 Anemia, unspecified; E11.9 Type 2 diabetes mellitus without complications; Z79.01 Long term (current) use of anticoagulants; Z79.899 Other long term (current) drug therapy; Z79.84 Long term (current) use of oral hypoglycemic drugs
CPT/HCPCS: 45385; 45380; 45381; 82947; 88305

== ENCOUNTER 2022-10-24 15:28 | Outpatient (REF) | payer OTHER, SELFPAY ==
[2022-10-24 16:02] LABS: Basophils Percent Auto 0.6 % (0-2); Eosinophils Absolute Auto 0.2 X10*3/uL (0.0-0.4); Eosinophils Percent Auto 1.2 % (0-4); Imm Gran Abs Auto 0.08 X10*3/uL (0.00-0.03); Imm Gran Pct Auto 0.6 % (0.0-0.4); Mean Corpuscular HGB Conc 31.3 g/dl (31.0-35.0); Mean Corpuscular Hemoglobin 23.9 pg (27.0-33.0); PLT CLUMP 1; SCAN SMEAR FLAG 1
[2022-10-24 16:04] LABS: Basophils Absolute Auto 0.1 X10*3/uL (0.0-0.2); Hematocrit 37.1 % (37.0-47.0); Hemoglobin 11.6 g/dl (12.0-16.0); Lymphocytes Absolute Auto 2.9 X10*3/uL (1.2-4.9); Lymphocytes Percent Auto 20.9 % (20-40); Mean Corpuscular Volume 76.3 fL (80.0-98.0); Mean Platelet Volume 11.3 fL (9.4-12.3); Monocytes Percent Auto 7.1 % (2-11); Neutrophils Absolute Auto 9.7 x10*3/uL (2.0-8.3); Neutrophils Percent Auto 69.6 % (45-73); Red Blood Count 4.86 X10*6/uL (4.20-5.50)
[2022-10-24 16:12] LABS: MANUAL DIFF FLAG NO; Platelet Count 126 X10*3/uL (160-400); White Blood Count 13.9 X10*3/uL (4.8-10.8)
[2022-10-24 16:19] LABS: D Dimer High Sensitivity 263 NG/ML
[2022-10-24 16:57] LABS: Erythrocyte Sedimentation Rate 21 MM/HR (0-20)
== END 2022-10-24 15:29 | disposition home or self-care (01) ==
LOC: HO.LAB 15:28
PROVIDERS: PCP Internal Medicine; Visit Provider Hospitalist
DX: I26.99 Other pulmonary embolism without acute cor pulmonale (principal)
CPT/HCPCS: 36415; 85025; 85379; 85652

== ENCOUNTER → 2022-10-25 10:25 | Outpatient (BNVA) | payer OTHER, SELFPAY | PROVIDERS: PCP Internal Medicine; Visit Provider Hospitalist | DX: G47.33 Obstructive sleep apnea (adult) (pediatric) (principal); R06.00 Dyspnea, unspecified; R07.81 Pleurodynia; Z86.711 Personal history of pulmonary embolism | CPT/HCPCS: 99212 ==

== ENCOUNTER 2022-10-25 14:07 | Outpatient (REF) | payer OTHER, SELFPAY ==
--- NOTE | ~2022-10-25 | CT_ITS ---
EXAMINATION: CT ANGIOGRAM OF THE CHEST WITH AND WITHOUT CONTRAST (CT PULMONARY ANGIOGRAM FOR PE) CLINICAL INFORMATION: Reason for Exam R07.81 - Pleurodynia,HX OF PE COMPARISON: Previous chest CTA November 2021 TECHNIQUE: Prior to contrast administration, noncontrast localization images were obtained. Subsequently, multidetector volumetric imaging was performed from the thoracic inlet to below the diaphragms following the administration of 65 mL Omnipaque 350 intravenous contrast. No contrast reaction reported Sagittal, coronal, and MIP oblique sagittal reformatted images were obtained on the CT workstation, uploaded to PACS, and reviewed. This CT examination was performed using dose optimization techniques as appropriate, variously including the following: *Automated exposure control *Adjustment of mA and/or kV according to patient size (this includes techniques or standardized protocols for targeted exams where dose is matched to indication/reason for exam; i.e. extremities or head) *Use of iterative reconstruction technique Total exam dose-length product 424 mGy-cm FINDINGS: QUALITY OF STUDY/CONTRAST BOLUS: Satisfactory. PULMONARY ARTERIES: Bilateral segmental and subsegmental pulmonary emboli seen throughout the lungs THORACIC AORTA: No aneurysm or dissection. LUNG: No focal consolidation, nodules or masses. PLEURA: No pleural effusion or pneumothorax. MEDIASTINUM: Normal heart size. No pericardial effusion. No hilar or mediastinal lymphadenopathy. No evidence of septal bowing or right heart strain. Enlarged right lobe of the thyroid gland and question goiter. This is similar to previous exam. CORONARY ARTERY CALCIFICATION: None visualized on this study. CHEST WALL/AXILLA: No axillary or internal mammary lymphadenopathy. OSSEOUS STRUCTURES: No acute or suspicious osseous abnormality. Degenerative changes of the spine. UPPER ABDOMEN: There may be hepatosplenomegaly. The gallbladder has been removed.. No reflux of contrast into the hepatic veins to suggest elevated right heart pressures. CT/CT angio chest PE protocol IMPRESSION: Bilateral segmental and subsegmental pulmonary emboli. No evidence of right heart strain. Stable enlarged heterogeneous right lobe of thyroid gland. This may represent a goiter. Follow-up thyroid ultrasound recommended. Probable hepatosplenomegaly. VTE: positive Findings were communicated to Dr. Land in person on 10/25/2022 at 4:15 PM.
[2022-10-25] MEDS: iohexoL 350 MG/ML 100 ML INFUS..BTL 65 ML IV (14:54)
== END 2022-10-25 14:08 | disposition home or self-care (01) ==
LOC: HO.CT 14:07
PROVIDERS: PCP Internal Medicine; Visit Provider Hospitalist
DX: R07.81 Pleurodynia (principal); R78.89 Finding of other specified substances, not normally found in blood
CPT/HCPCS: 71275; Q9967

== ENCOUNTER 2022-10-25 17:22 | Inpatient (IN) | payer OTHER, SELFPAY ==
--- NOTE | 2022-10-25 18:14 | ECG_ITS ---
Test Reason : sob/pe on CTA Blood Pressure : / mmHG Vent. Rate : 092 BPM Atrial Rate : 092 BPM P-R Int : 162 ms QRS Dur : 098 ms QT Int : 366 ms P-R-T Axes : 050 -11 017 degrees QTc Int : 452 ms Normal sinus rhythm Minimal voltage criteria for LVH, may be normal variant ( Boris product ) Borderline ECG When compared with ECG of 12-JUN-2018 21:20, No significant change was found Referred By: Katlyn Blackwell Electronically Signed By:Raul Zacarias
--- NOTE | 2022-10-25 18:14 | ED.SOB ---
HPI - SOB/Dyspnea General Chief Complaint: Dyspnea <TD Dexter - Last Filed: 10/25/22 18:19> Stated Complaint: DVT in both lungs <TD Dexter - Last Filed: 10/25/22 18:19> Time Seen by Provider: 10/25/22 20:05 <TD Dexter - Last Filed: 10/25/22 18:19> Source: patient <Dorina Burger MD - Last Filed: 10/25/22 20:47> Mode of arrival: ambulatory <Dorina Burger MD - Last Filed: 10/25/22 20:47> Limitations: no limitations <Dorina Burger MD - Last Filed: 10/25/22 20:47> History of Present Illness HPI Narrative: Patient comes to the emergency room complaining of shortness of breath for about 1 week. Patient was seen by her health and safety manager Dr. Land, today patient had a CT scan for pulmonary embolism done today, which was positive for bilateral PEs. Patient states that in the past she has had pulmonary embolisms as well. However, this time they occurred while on Eliquis. Patient complaining of intermittent chest pain, at this time is symptomatic. Patient states that she gets short of breath with exertion. <Dorina Burger MD - Last Filed: 10/25/22 20:47> Related Data Home Medications: Home Medications Medication Instructions Recorded Confirmed atorvastatin 20 mg tablet 20 mg PO BEDTIME 09/14/20 04/25/22 glimepiride 4 mg tablet 4 mg PO DAILY 09/14/20 04/25/22 apixaban 5 mg tablet (Eliquis) 5 mg PO BID 02/21/21 04/25/22 sitagliptin phos 50 mg-metformin 1 tab PO DAILY 02/21/21 04/25/22 ER 1,000 mg tablet,extend rel 24h mp (Janumet XR) blood sugar diagnostic (FreeStyle #10 ea 02/26/22 04/25/22 Lite Strips) cyanocobalamin (vitamin B-12) 1,000 mcg PO DAILY 08/16/22 1,000 mcg tablet empagliflozin 10 mg tablet 10 mg PO QAM 08/16/22 (Jardiance) fluticasone propionate 110 2 puff inhalation BID 08/16/22 mcg/actuation HFA aerosol inhaler (Flovent HFA) levothyroxine 50 mcg tablet 50 mcg PO DAILY 08/16/22 valsartan 320 1 tab PO DAILY 08/16/22 mg-hydrochlorothiazide 25 mg tablet ferrous sulfate 325 mg (65 mg 325 mg PO DAILY 10/25/22 iron) tablet Previous Rx's Medication Instructions Recorded diclofenac sodium 1 % topical gel 2 g topical QID #100 grams 02/21/21 (Arthritis Pain (diclofenac)) lorazepam 1 mg tablet 1 mg PO ONCE PRN painful procedure 05/07/21 #2 tabs ibuprofen 800 mg tablet See Rx Instructions .Route 02/25/22 .COMPLEX #90 tabs Proventil HFA 90 mcg/actuation 2 inh inhalation Q6H PRN shortness 10/25/22 aerosol inhaler (albuterol sulfate) of breath or wheezing 30 days #6.7 grams benzonatate 200 mg capsule 200 mg PO BID PRN cough 30 days 10/25/22 #60 caps doxycycline monohydrate 100 mg 100 mg PO BID 10 days #20 tabs 10/25/22 tablet <TD Dexter - Last Filed: 10/25/22 18:19> Allergies/Adverse Reactions: Allergies Allergy/AdvReac Type Severity Reaction Status Date / Time lisinopril [LISINOPRIL] Allergy Severe ANGIOEDEMA Verified 10/25/22 18:14 dapagliflozin [From FARXIGA] Allergy Intermediate HIVES Verified 10/25/22 18:14 liraglutide [From VICTOZA] Allergy Intermediate RASH Verified 10/25/22 18:14 metformin [METFORMIN] Allergy Intermediate GI UPSET Verified 10/25/22 18:14 erythromycin base Allergy Unknown UNKNOWN Verified 10/25/22 18:14 [ERYTHROMYCIN BASE] amitriptyline [AMITRIPTYLINE] AdvReac Intermediate DRUGGED Verified 10/25/22 18:14 FEELING <TD Dexter - Last Filed: 10/25/22 18:19> Review of Systems Review of Systems: Constitutional : No Weight loss, No Fever, No Chills, No Night Sweats, No Fatigue, No Malaise ENT/Mouth : No Hearing loss, No Ear Pain, No Nasal Congestion, No Sinus Pain, No Hoarseness, No sore throat, No Rhinorrhea, No Swallowing Difficulty Eyes: No Eye Pain, No Swelling, No Redness, No Foreign Body, No Discharge, No Vision Changes Cardiovascular : Intermittent sharp bilateral Chest Pain, complaining of dyspnea on exertion, no orthopnea, no palpitations Respiratory : No Cough, No Sputum, No Wheezing, No Smoke Exposure, complaining of dyspnea on exertion Gastrointestinal : No Nausea, No Vomiting, No Diarrhea, No Constipation, No abdominal Pain, No Hematochezia, No Melena Genitourinary : no irregular bleeding, No Dysuria, No Urinary Frequency, No Hematuria, No Urinary Incontinence, No Urgency, No Flank Pain, No Urinary Flow Changes, No Hesitancy Musculoskeletal : No joint pain, No Myalgias, No Joint Swelling Skin : No Skin Lesions, No rash Neuro : No Weakness, No Numbness, No Paresthesias, No Loss of Consciousness, No Dizziness, No Headache Psych : No Anxiety/Panic, No Depression, No SI/HI/AH/VH, No Social Issues, Heme/Lymph: No Bruising, No Bleeding,No Lymphadenopathy Endocrine : No Polyuria, No Polydipsia, No Temperature Intolerance <Dorina Burger MD - Last Filed: 10/25/22 20:47> FORMERLY [facility] Past Medical History Medical History: Medical History Anemia Anxiety Chronic headaches Diabetes type 2, controlled Dyspareunia in female Dyspnea Dyspnea on exertion History of COVID-19 (~2020) History of pulmonary embolus (PE) (~2020) HTN (hypertension) Hyperlipidemia Hypothyroid Morbid obesity Obstructive sleep apnea Pleuritic chest pain Pulmonary emboli <TD Dexter - Last Filed: 10/25/22 18:19> Surgical History: Surgical History History of carpal tunnel surgery History of ERCP History of foot surgery History of laparoscopic cholecystectomy History of surgery History of tubal ligation <TD Dexter - Last Filed: 10/25/22 18:19> Family History Family History: Family History Father Myocardial infarction COPD (chronic obstructive pulmonary disease) Mother COPD (chronic obstructive pulmonary disease) Brother Colitis <TD Dexter - Last Filed: 10/25/22 18:19> Social History Social History: Social History Alcohol intake: never Patient Tobacco Use Status: Never used Tobacco Advance Directives: No Advance Directives Information Provided: Yes Current occupational status: employed 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 <TD Dexter - Last Filed: 10/25/22 18:19> Physical Exam Vital Signs: Vital Signs: Last Vital Signs Temp 98.7 F 10/25/22 19:25 Pulse 85 10/25/22 19:25 Resp 16 10/25/22 19:25 BP 103/57 L 10/25/22 19:25 Pulse Ox 98 10/25/22 19:25 O2 Del Method 10/25/22 19:25 BMI result Body Mass Index 50.9 <TD Dexter - Last Filed: 10/25/22 18:19> Vital Signs: Last Vital Signs Temp 98.7 F 10/25/22 19:25 Pulse 85 10/25/22 19:25 Resp 16 10/25/22 19:25 BP 103/57 L 10/25/22 19:25 Pulse Ox 98 10/25/22 19:25 O2 Del Method 10/25/22 19:25 BMI result Body Mass Index 50.9 <Dorina Burger MD - Last Filed: 10/25/22 20:47> Const: Other: Appearance: Alert. Oriented X3. No acute distress. Well appearing Eyes: Pupils equal, round and reactive to light. ENT: Pharynx normal. Neck: Normal inspection. Neck supple. No lymph nodes noted. No crepitus CVS: Normal heart rate and rhythm. Pulses normal. Normal S1 and S2 Respiratory: No respiratory distress. Breath sounds normal. No Wheezing. No rales Abdomen: Soft and nontender. No rigidity. No distention. Skin: Skin warm and dry. Normal skin color. Normal skin turgor. Extremities: No lower extremity edema. No Lacerations. No Rash Neuro: Oriented X 3. No motor deficit. No sensory deficit. Moving all extremities. No slurred speech. CN 2 through 12 grossly intact Psych: calm, cooperative, normal affect <Dorina Burger MD - Last Filed: 10/25/22 20:47> Course Course Course Narrative: RME- 17pm 47yoF presenting to the ER after she was called by her health and safety manager Dr. Land due to bilateral PEs to her lungs after they obtain outpatient CT scan today. Patient reports she was diagnosed with COVID approximately 2 years ago was diagnosed with blood clots at that time. She is currently on Xarelto and is taking as prescribed. Patient reports that she has been having shortness of breath with dyspnea on exertion worse in the past few weeks. She was instructed to come here for further evaluation treatment and admission due to failed outpatient anticoagulation. Plan: Will obtain labs including PT/PTT and INR. EKG. Patient will be sent to the ER for further evaluation treatment. <TD Dexter - Last Filed: 10/25/22 18:19> Medical Decision Making Medical Decision Making MDM Narrative: -patient tested positive for COVID-19 yesterday -patient has bilateral pulmonary embolisms, no signs of right ventricular strain. -is concerning that patient is still developing pulmonary embolisms despite being compliant with Eliquis. -patient's vitals are normal, hemodynamically stable -patient was started on 1 milligram/kilogram Lovenox -I discussed the patient with Dr. Land earlier today, and I also discussed the patient with Dr. Solano, we will admit the patient. Patient will need likely hematology/oncology consult <Dornia Burger MD - Last Filed: 10/25/22 20:47> Differential Diagnosis Differential Diagnoses: The differential diagnosis associated with the presentation includes (Pulmonary embolisms, COVID) <Dorina Burger MD - Last Filed: 10/25/22 20:47> Admission/Observation Consideration of admission/observation: Escalation of care including admission/observation considered <Dorina Burger MD - Last Filed: 10/25/22 20:47> Consult Healthcare Provider Management of the patient was discussed with: Hospitalist and Shrimper <Dorina Burger MD - Last Filed: 10/25/22 20:47> Lab Data MDM Lab Attestation statement: I reviewed the patient's lab results. <Dorina Burger MD - Last Filed: 10/25/22 20:47> Result Diagrams: 10/25/22 18:32 10/25/22 18:32 <TD Dexter - Last Filed: 10/25/22 18:19> Labs: Lab Results 10/25/22 10/25/22 10/25/22 Range/Units 18:32 18:32 18:32 WBC 10.8 (4.8-10.8) X10*3/uL RBC 4.71 (4.20-5.50) X10*6/uL Hgb 11.1 L (12.0-16.0) g/dl Hct 36.0 L (37.0-47.0) % MCV 76.4 L (80.0-98.0) fL MCH 23.6 L (27.0-33.0) pg MCHC 30.8 L (31.0-35.0) g/dl RDW 16.9 H (11.0-16.0) % Plt Count 113 L (160-400) X10*3/uL MPV 11.0 (9.4-12.3) fL Immature Gran % (Auto) 0.4 (0.0-0.4) % Neut % (Auto) 67.2 (45-73) % Lymph % (Auto) 23.7 (20-40) % [place] % (Auto) 6.5 (2-11) % Eos % (Auto) 1.6 (0-4) % Baso % (Auto) 0.6 (0-2) % Lymph # (Auto) 2.6 (1.2-4.9) X10*3/uL [place] # (Auto) 0.7 (0.1-1.2) X10*3/uL Eos # (Auto) 0.2 (0.0-0.4) X10*3/uL Baso # (Auto) 0.1 (0.0-0.2) X10*3/uL Abs Immat Gran (auto) 0.04 H (0.00-0.03) X10*3/uL Absolute Neuts (auto) 7.3 (2.0-8.3) x10*3/uL Absolute Nucleated RBC 0.000 (0.0-0.012) X10*3/uL Nucleated RBC % (auto) 0.0 (0.0-0.2) /100WBC PT 11.7 (10.0-13.1) SEC INR 1.0 (0.9-1.1) APTT 29.3 (26.0-36.4) SEC Sodium 138 (135-145) mmol/L Potassium 3.2 L (3.3-5.1) mmol/L Chloride 100 (96-108) mmol/L Carbon Dioxide 26 (22-29) mmol/L Anion Gap 15 (12-20) BUN 17 H (9-16) mg/dL Creatinine 1.18 (0.5-1.4) mg/dL Estim Creat Clear Calc 82.5 Estimated GFR 49 Random Glucose 275 H (60-115) mg/dL Calcium 8.8 (8.4-10.2) mg/dL Magnesium 1.6 (1.6-2.6) mg/dL Total Bilirubin 0.5 (0.0-1.0) mg/dL AST 12 (5-31) U/L ALT 10 (0-31) U/L Alkaline Phosphatase 87 (39-117) U/L Total Protein 6.5 (6.5-8.0) g/dL Albumin 3.8 (3.5-5.0) g/dL Beta HCG, Quant < 2 mIU/mL Influenza Type A (PCR) (Negative) Influenza Type B (PCR) (Negative) RSV RNA Qual (PCR) (Negative) SARS-CoV-2 RNA (RT-PCR) (Negative) 10/25/22 Range/Units 18:33 WBC (4.8-10.8) X10*3/uL RBC (4.20-5.50) X10*6/uL Hgb (12.0-16.0) g/dl Hct (37.0-47.0) % MCV (80.0-98.0) fL MCH (27.0-33.0) pg MCHC (31.0-35.0) g/dl RDW (11.0-16.0) % Plt Count (160-400) X10*3/uL MPV (9.4-12.3) fL Immature Gran % (Auto) (0.0-0.4) % Neut % (Auto) (45-73) % Lymph % (Auto) (20-40) % [place] % (Auto) (2-11) % Eos % (Auto) (0-4) % Baso % (Auto) (0-2) % Lymph # (Auto) (1.2-4.9) X10*3/uL [place] # (Auto) (0.1-1.2) X10*3/uL Eos # (Auto) (0.0-0.4) X10*3/uL Baso # (Auto) (0.0-0.2) X10*3/uL Abs Immat Gran (auto) (0.00-0.03) X10*3/uL Absolute Neuts (auto) (2.0-8.3) x10*3/uL Absolute Nucleated RBC (0.0-0.012) X10*3/uL Nucleated RBC % (auto) (0.0-0.2) /100WBC PT (10.0-13.1) SEC INR (0.9-1.1) APTT (26.0-36.4) SEC Sodium (135-145) mmol/L Potassium (3.3-5.1) mmol/L Chloride (96-108) mmol/L Carbon Dioxide (22-29) mmol/L Anion Gap (12-20) BUN (9-16) mg/dL Creatinine (0.5-1.4) mg/dL Estim Creat Clear Calc Estimated GFR Random Glucose (60-115) mg/dL Calcium (8.4-10.2) mg/dL Magnesium (1.6-2.6) mg/dL Total Bilirubin (0.0-1.0) mg/dL AST (5-31) U/L ALT (0-31) U/L Alkaline Phosphatase (39-117) U/L Total Protein (6.5-8.0) g/dL Albumin (3.5-5.0) g/dL Beta HCG, Quant mIU/mL Influenza Type A (PCR) NEGATIVE (Negative) Influenza Type B (PCR) NEGATIVE (Negative) RSV RNA Qual (PCR) NEGATIVE (Negative) SARS-CoV-2 RNA (RT-PCR) NEGATIVE (Negative) <TD Dexter - Last Filed: 10/25/22 18:19> Lab Results 10/25/22 10/25/22 10/25/22 Range/Units 18:32 18:32 18:32 WBC 10.8 (4.8-10.8) X10*3/uL RBC 4.71 (4.20-5.50) X10*6/uL Hgb 11.1 L (12.0-16.0) g/dl Hct 36.0 L (37.0-47.0) % MCV 76.4 L (80.0-98.0) fL MCH 23.6 L (27.0-33.0) pg MCHC 30.8 L (31.0-35.0) g/dl RDW 16.9 H (11.0-16.0) % Plt Count 113 L (160-400) X10*3/uL MPV 11.0 (9.4-12.3) fL Immature Gran % (Auto) 0.4 (0.0-0.4) % Neut % (Auto) 67.2 (45-73) % Lymph % (Auto) 23.7 (20-40) % [place] % (Auto) 6.5 (2-11) % Eos % (Auto) 1.6 (0-4) % Baso % (Auto) 0.6 (0-2) % Lymph # (Auto) 2.6 (1.2-4.9) X10*3/uL [place] # (Auto) 0.7 (0.1-1.2) X10*3/uL Eos # (Auto) 0.2 (0.0-0.4) X10*3/uL Baso # (Auto) 0.1 (0.0-0.2) X10*3/uL Abs Immat Gran (auto) 0.04 H (0.00-0.03) X10*3/uL Absolute Neuts (auto) 7.3 (2.0-8.3) x10*3/uL Absolute Nucleated RBC 0.000 (0.0-0.012) X10*3/uL Nucleated RBC % (auto) 0.0 (0.0-0.2) /100WBC PT 11.7 (10.0-13.1) SEC INR 1.0 (0.9-1.1) APTT 29.3 (26.0-36.4) SEC Sodium 138 (135-145) mmol/L Potassium 3.2 L (3.3-5.1) mmol/L Chloride 100 (96-108) mmol/L Carbon Dioxide 26 (22-29) mmol/L Anion Gap 15 (12-20) BUN 17 H (9-16) mg/dL Creatinine 1.18 (0.5-1.4) mg/dL Estim Creat Clear Calc 82.5 Estimated GFR 49 Random Glucose 275 H (60-115) mg/dL Calcium 8.8 (8.4-10.2) mg/dL Magnesium 1.6 (1.6-2.6) mg/dL Total Bilirubin 0.5 (0.0-1.0) mg/dL AST 12 (5-31) U/L ALT 10 (0-31) U/L Alkaline Phosphatase 87 (39-117) U/L Total Protein 6.5 (6.5-8.0) g/dL Albumin 3.8 (3.5-5.0) g/dL Beta HCG, Quant < 2 mIU/mL Influenza Type A (PCR) (Negative) Influenza Type B (PCR) (Negative) RSV RNA Qual (PCR) (Negative) SARS-CoV-2 RNA (RT-PCR) (Negative) 10/25/22 Range/Units 18:33 WBC (4.8-10.8) X10*3/uL RBC (4.20-5.50) X10*6/uL Hgb (12.0-16.0) g/dl Hct (37.0-47.0) % MCV (80.0-98.0) fL MCH (27.0-33.0) pg MCHC (31.0-35.0) g/dl RDW (11.0-16.0) % Plt Count (160-400) X10*3/uL MPV (9.4-12.3) fL Immature Gran % (Auto) (0.0-0.4) % Neut % (Auto) (45-73) % Lymph % (Auto) (20-40) % [place] % (Auto) (2-11) % Eos % (Auto) (0-4) % Baso % (Auto) (0-2) % Lymph # (Auto) (1.2-4.9) X10*3/uL [place] # (Auto) (0.1-1.2) X10*3/uL Eos # (Auto) (0.0-0.4) X10*3/uL Baso # (Auto) (0.0-0.2) X10*3/uL Abs Immat Gran (auto) (0.00-0.03) X10*3/uL Absolute Neuts (auto) (2.0-8.3) x10*3/uL Absolute Nucleated RBC (0.0-0.012) X10*3/uL Nucleated RBC % (auto) (0.0-0.2) /100WBC PT (10.0-13.1) SEC INR (0.9-1.1) APTT (26.0-36.4) SEC Sodium (135-145) mmol/L Potassium (3.3-5.1) mmol/L Chloride (96-108) mmol/L Carbon Dioxide (22-29) mmol/L Anion Gap (12-20) BUN (9-16) mg/dL Creatinine (0.5-1.4) mg/dL Estim Creat Clear Calc Estimated GFR Random Glucose (60-115) mg/dL Calcium (8.4-10.2) mg/dL Magnesium (1.6-2.6) mg/dL Total Bilirubin (0.0-1.0) mg/dL AST (5-31) U/L ALT (0-31) U/L Alkaline Phosphatase (39-117) U/L Total Protein (6.5-8.0) g/dL Albumin (3.5-5.0) g/dL Beta HCG, Quant mIU/mL Influenza Type A (PCR) NEGATIVE (Negative) Influenza Type B (PCR) NEGATIVE (Negative) RSV RNA Qual (PCR) NEGATIVE (Negative) SARS-CoV-2 RNA (RT-PCR) NEGATIVE (Negative) <Dorina Burger MD - Last Filed: 10/25/22 20:47> Independent Interpretation I performed an independent interpretation of an: CT Scan (My CTA scan interpretation for pulmonary embolism: Positive) <Dorina Burger MD - Last Filed: 10/25/22 20:47> Radiology Impression Discussion of test interpretation with radiology: I have reviewed the radiologist's reading. <Dorina Burger MD - Last Filed: 10/25/22 20:47> Radiologist Impression: FINDINGS: QUALITY OF STUDY/CONTRAST BOLUS: Satisfactory. PULMONARY ARTERIES: Bilateral segmental and subsegmental pulmonary emboli seen throughout the lungs THORACIC AORTA: No aneurysm or dissection. LUNG: No focal consolidation, nodules or masses. PLEURA: No pleural effusion or pneumothorax. MEDIASTINUM: Normal heart size.? No pericardial effusion.? No hilar or mediastinal lymphadenopathy.? No evidence of septal bowing or right heart strain. Enlarged right lobe of the thyroid gland and question goiter. This is similar to previous exam. CORONARY ARTERY CALCIFICATION: None visualized on this study. CHEST WALL/AXILLA: No axillary or internal mammary lymphadenopathy. OSSEOUS STRUCTURES: No acute or suspicious osseous abnormality. Degenerative changes of the spine. UPPER ABDOMEN: There may be hepatosplenomegaly. The gallbladder has been removed..? No reflux of contrast into the hepatic veins to suggest elevated right heart pressures. CT/CT angio chest PE protocol IMPRESSION: Bilateral segmental and subsegmental pulmonary emboli. No evidence of right heart strain. Stable enlarged heterogeneous right lobe of thyroid gland. This may represent a goiter. Follow-up thyroid ultrasound recommended. Probable hepatosplenomegaly. ? VTE: positive <Dorina Burger MD - Last Filed: 10/25/22 20:47> Critical Care Time Critical Care Time Critical Care Time: Yes <Dorina Burger MD - Last Filed: 10/25/22 20:47> Total Critical Care Time: 45 <Dorina Burger MD - Last Filed: 10/25/22 20:47> Attestation: I have personally provided critical care time. Time includes review of lab data, radiology results, discussion with consultants, and monitoring for potential decompensation. Intervention performed as documented. <Dorina Burger MD - Last Filed: 10/25/22 20:47> Discharge Plan Discharge Clinical Impression: Bilateral pulmonary embolism <TD Dexter - Last Filed: 10/25/22 18:19> Patient Disposition: Admitted As Inpatient <TD Dexter - Last Filed: 10/25/22 18:19> Prescriptions: No Action lorazepam 1 mg tablet 1 mg PO ONCE PRN (Reason: painful procedure) Qty: 2 0RF Rx Instructions: Take 1-2 tabs, one hour prior to procedure. Be sure to have someone drive you to and from the procedure. ibuprofen 800 mg tablet See Rx Instructions .ROUTE .COMPLEX Qty: 90 3RF Dose Instruction: TAKE 1 TABLET BY MOUTH EVERY 8 HOURS NEEDED FOR PAIN Rx Instructions: TAKE 1 TABLET BY MOUTH EVERY 8 HOURS NEEDED FOR PAIN albuterol sulfate [Proventil HFA] 90 mcg/actuation HFA aerosol inhaler 2 inh inhalation Q6H PRN (Reason: shortness of breath or wheezing) 30 Days Qty: 6.7 12RF atorvastatin 20 mg tablet 20 mg PO BEDTIME glimepiride 4 mg tablet 4 mg PO DAILY Eliquis 5 mg tablet 5 mg PO BID Janumet XR 50-1,000 mg tablet, ER multiphase 24 hr 1 tab PO DAILY diclofenac sodium [Arthritis Pain (diclofenac)] 1 % gel 2 g topical QID Qty: 100 0RF Rx Instructions: apply to knees (DME) FreeStyle Lite Strips Strip See Rx Instructions Not Applicable BID Qty: 10 Rx Instructions: As directed Jardiance 10 mg tablet 10 mg PO QAM levothyroxine 50 mcg tablet 50 mcg PO DAILY cyanocobalamin (vitamin B-12) 1,000 mcg tablet 1,000 mcg PO DAILY valsartan-hydrochlorothiazide 320-25 mg tablet 1 tab PO DAILY fluticasone propionate [Flovent HFA] 110 mcg/actuation HFA aerosol inhaler 2 puff inhalation BID ferrous sulfate 325 mg (65 mg iron) tablet 325 mg PO DAILY doxycycline monohydrate 100 mg tablet 100 mg PO BID 10 Days Qty: 20 0RF benzonatate 200 mg capsule 200 mg PO BID PRN (Reason: cough) 30 Days Qty: 60 0RF <TD Dexter - Last Filed: 10/25/22 18:19>
[2022-10-25 18:15] VITALS: BP 159/88; PULSE 98; RESP 20; TEMP 36.2; O2SAT 97; BMI 50.9
[2022-10-25 19:04] LABS: Eosinophils Absolute Auto 0.2 X10*3/uL (0.0-0.4); Eosinophils Percent Auto 1.6 % (0-4); Hemoglobin 11.1 g/dl (12.0-16.0); Imm Gran Abs Auto 0.04 X10*3/uL (0.00-0.03); Imm Gran Pct Auto 0.4 % (0.0-0.4); PLT CLUMP 1; SCAN SMEAR FLAG 1
[2022-10-25 19:06] LABS: Basophils Absolute Auto 0.1 X10*3/uL (0.0-0.2); Basophils Percent Auto 0.6 % (0-2); Lymphocytes Absolute Auto 2.6 X10*3/uL (1.2-4.9); Lymphocytes Percent Auto 23.7 % (20-40); Mean Corpuscular HGB Conc 30.8 g/dl (31.0-35.0); Mean Corpuscular Hemoglobin 23.6 pg (27.0-33.0); Mean Corpuscular Volume 76.4 fL (80.0-98.0); Monocytes Absolute Auto 0.7 X10*3/uL (0.1-1.2); Monocytes Percent Auto 6.5 % (2-11); Neutrophils Absolute Auto 7.3 x10*3/uL (2.0-8.3); Neutrophils Percent Auto 67.2 % (45-73); Red Blood Count 4.71 X10*6/uL (4.20-5.50); Red Cell Distribution Width 16.9 % (11.0-16.0)
[2022-10-25 19:21] LABS: Prothrombin Time 11.7 SEC (10.0-13.1)
[2022-10-25 19:24] LABS: Alanine Aminotransferase 10 U/L (0-31); Albumin Level 3.8 g/dL (3.5-5.0); Alkaline Phosphatase 87 U/L (39-117); Anion Gap 15 (12-20); Aspartate Amino Transferase 12 U/L (5-31); Bilirubin Total 0.5 mg/dL (0.0-1.0); Blood Urea Nitrogen 17 mg/dL (9-16); Calcium 8.8 mg/dL (8.4-10.2); Carbon Dioxide 26 mmol/L (22-29); Chloride 100 mmol/L (96-108); Creatinine Clr Calc Pharmacy 82.5; Estimated Glomerular Filt Rate 49; Glucose Random 275 mg/dL (60-115); Magnesium 1.6 mg/dL (1.6-2.6); Partial Thromboplastin Time 29.3 SEC (26.0-36.4); Potassium 3.2 mmol/L (3.3-5.1); Sodium 138 mmol/L (135-145); Total Protein 6.5 g/dL (6.5-8.0)
[2022-10-25 19:25] VITALS: BP 103/57; PULSE 85; RESP 16; TEMP 37.1; O2SAT 98
[2022-10-25 19:25] LABS: HCG Quantitative < 2 mIU/mL; MANUAL DIFF FLAG NO; PLT ABN DIST 1; Platelet Count 113 X10*3/uL (160-400); White Blood Count 10.8 X10*3/uL (4.8-10.8)
[2022-10-25 19:39] LABS: Influenza A PCR NEGATIVE (Negative); Influenza B PCR NEGATIVE (Negative); Resp Syncy Virus RNA Qual PCR NEGATIVE (Negative); SARS COV2 PCR INHOUSE NEGATIVE (Negative)
[2022-10-25 20:47] LABS: Partial Thromboplastin Time 29.6 SEC (26.0-36.4)
[2022-10-25 21:06] LABS: B Type Natriuretic Peptide < 10 pg/mL (<100)
--- NOTE | 2022-10-25 21:20 | PHA.MEDREC ---
MED REC COMPLETE, OF NOTE, PATIENT WAS TAKING THE APIXABAN 5 MG ONCE DAILY, PRESCRIBED DIRECTIONS STATED TWICE DAILY Pharmacy Consult ? Medication Reconciliation Pharmacy has completed the medication reconciliation.
--- NOTE | 2022-10-25 22:10 | P.HPHOSP_ITS ---
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 Patient saw Dr. Land today and was s ent to the ER. Patient has been complaining of pleuritic chest discomfort and dyspnea with exertion. She felt this when she went to the gym and felt short of breath and dizzy. Her D-dimer was found to be elevated. She got CT scan outpatient which revealed PE. Patient states she was diagnosed with PE 2 years ago when she was put on Eliquis. She was taking Eliquis b.i.d. for the first 6 months but does not know when she switched it to once daily. Patient also endorses nonproductive cough. No fever, chills, chest discomfort, palpitations, abdominal pain, changes in urinary or bowel habits. Review of Systems Constitutional: Constitutional: Reports no additional constitutional complai nts Cardiovascular: Cardiovascular: Reports no additional cardiovascular complaints and Reports dyspnea on exertion Respiratory: Respiratory: Reports pain on inspiration, Reports pain with cough and Reports dyspnea on exertion Gastrointestinal: Gastrointestinal: Reports no additional gastrointestinal complaints Genitourinary: Genitourinary: Reports no additional female genitourinary complaints Musculoskeletal: Musculoskeletal: Reports no additional musculoskeletal complaints [facility] Medical History Anemia Anxiety Chronic headaches Diabetes type 2, controlled Dyspareunia in female Dyspnea Dyspnea on exertion History of COVID-19 (~2020) History of pulmonary embolus (PE) (~2020) HTN (hypertension) Hyperlipidemia Hypothyroid Morbid obesity Obstructive sleep apnea Pleuritic chest pain Pulmonary emboli Family History Father Myocardial infarction COPD (chronic obstructive pulmonary disease) Mother COPD (chronic obstructive pulmonary disease) Brother Colitis Surgical History History of carpal tunnel surgery History of ERCP History of foot surgery History of laparoscopic cholecystectomy History of surgery History of tubal ligation Social History Alcohol intake: never Patient Tobacco Use Status: Never used Tobacco Advance Directives: No Advance Directives Information Provided: Yes Current occupational status: employed 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 Meds Allergies Allergy/AdvReac Type Severity Reaction Status Date / Time lisinopril [LISINOPRIL] Allergy Severe ANGIOEDEMA Verified 10/25/22 18:14 dapagliflozin [From FARXIGA] Allergy Intermediate HIVES Verified 10/25/22 18:14 liraglutide [From VICTOZA] Allergy Intermediate RASH Verified 10/25/22 18:14 metformin [METFORMIN] Allergy Intermediate GI UPSET Verified 10/25/22 18:14 erythromycin base Allergy Unknown UNKNOWN Verified 10/25/22 18:14 [ERYTHROMYCIN BASE] amitriptyline [AMITRIPTYLINE] AdvReac Intermediate DRUGGED Verified 10/25/22 18:14 FEELING Active Medications: Current Medications Enoxaparin Sodium (Enoxaparin Sodium 150 Mg/Ml Syringe) 135 mg 1 mg/kg (135 mg) SUBCUT BID [facility] Consult (Consult Rx Perform Med Rec) 1 each MISCELLANE ONCE PRN PRN Reason: Consult order Home Medications Medication Instructions Recorded Confirmed Last Taken Type atorvastatin 20 mg tablet 20 mg PO BEDTIME 09/14/20 10/25/22 10/24/22 History glimepiride 4 mg tablet 4 mg PO BEDTIME 09/14/20 10/25/22 10/24/22 History apixaban 5 mg tablet (Eliquis) 5 mg PO BEDTIME 02/21/21 10/25/22 10/24/22 History sitagliptin phos 50 mg-metformin 1 tab PO BEDTIME 02/21/21 10/25/22 10/24/22 History ER 1,000 mg tablet,extend rel 24h mp (Janumet XR) blood sugar diagnostic (FreeStyle #10 ea 02/26/22 04/25/22 Unknown History Lite Strips) cyanocobalamin (vitamin B-12) 1,000 mcg PO BEDTIME 08/16/22 10/25/22 10/24/22 History 1,000 mcg tablet levothyroxine 50 mcg tablet 50 mcg PO BEDTIME 08/16/22 10/25/22 10/24/22 History valsartan 320 1 tab PO BEDTIME 08/16/22 10/25/2210/24/23 History mg-hydrochlorothiazide 25 mg tablet ferrous sulfate 325 mg (65 mg 325 mg PO MOFR@2100 10/25/22 10/25/22 10/24/22 History iron) tablet ibuprofen 800 mg tablet 800 mg PO Q8H PRN Pain (Scale 10/25/22 10/25/22 Unknown History Score 4-6) Physical Exam Vital Signs and Narrative: Vital Signs: Last Vital Signs Temp 98.7 F 10/25/22 19:25 Pulse 85 10/25/22 19:25 Resp 16 10/25/22 19:25 BP 103/57 L 10/25/22 19:25 Pulse Ox 98 10/25/22 19:25 O2 Del Method 10/25/22 19:25 BMI result Body Mass Index 50.9 Middle-aged female lying in bed in no distress Neck supple, no JVD Regular rate and rhythm, S1-S2 heard Regular breath sounds bilaterally, no wheezing or crackles appreciated Abdomen soft nontender, no guarding, no rigidity Patient is awake, alert and oriented to self, place, time and person ; no focal motor deficit Psych: Normal mood No pedal edema Results Labs 10/25/22 18:32 10/25/22 18:32 Labs: Laboratory Results - last 24 hr 10/25/22 10/25/22 10/25/22 18:32 18:32 18:32 MCV 76.4 L MCH 23.6 L MCHC 30.8 L RDW 16.9 H Plt Count 113 L MPV 11.0 Immature Gran % (Auto) 0.4 Neut % (Auto) 67.2 Lymph % (Auto) 23.7 Rankin % (Auto) 6.5 Eos % (Auto) 1.6 Baso % (Auto) 0.6 Lymph # (Auto) 2.6 Rankin # (Auto) 0.7 Eos # (Auto) 0.2 Baso # (Auto) 0.1 Abs Immat Gran (auto) 0.04 H Absolute Neuts (auto) 7.3 Absolute Nucleated RBC 0.000 Nucleated RBC % (auto) 0.0 PT 11.7 INR 1.0 APTT 29.3 Anion Gap 15 Estim Creat Clear Calc 82.5 Estimated GFR 49 Random Glucose 275 H Calcium 8.8 Magnesium 1.6 Total Bilirubin 0.5 AST 12 ALT 10 Alkaline Phosphatase 87 B-Natriuretic Peptide Total Protein 6.5 Albumin 3.8 Beta HCG, Quant < 2 Influenza Type A (PCR) Influenza Type B (PCR) RSV RNA Qual (PCR) SARS-CoV-2 RNA (RT-PCR) 10/25/22 10/25/22 10/25/22 18:32 18:33 20:28 MCV MCH MCHC RDW Plt Count MPV Immature Gran % (Auto) Neut % (Auto) Lymph % (Auto) Rankin % (Auto) Eos % (Auto) Baso % (Auto) Lymph # (Auto) Rankin # (Auto) Eos # (Auto) Baso # (Auto) Abs Immat Gran (auto) Absolute Neuts (auto) Absolute Nucleated RBC Nucleated RBC % (auto) PT INR APTT 29.6 Anion Gap Estim Creat Clear Calc Estimated GFR Random Glucose Calcium Magnesium Total Bilirubin AST ALT Alkaline Phosphatase B-Natriuretic Peptide < 10 Total Protein Albumin Beta HCG, Quant Influenza Type A (PCR) NEGATIVE Influenza Type B (PCR) NEGATIVE RSV RNA Qual (PCR) NEGATIVE SARS-CoV-2 RNA (RT-PCR) NEGATIVE Assessment and Plan (1) Bilateral pulmonary embolism: Status: Acute Plan This is a 47-year-old female with pertinent history of essential hypertension, tbt-hqtsjoz-mtjmijent diabetes mellitus, hypothyroidism, mixed hyperlipidemia, history of PE who presents to the emergency department at the 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 #. Non massive bilateral segmental and subsegmental PE, recurrent: Due to inappropriate and sub therapeutic dose of Eliquis. Will admit patient and initiate therapeutic Lovenox. Transition to p.o. Eliquis upon discharge. Counseled regarding the importance of taking Eliquis b.i.d.. #. Nav-sezoxys-sqepebpzk diabetes mellitus with hyperglycemia: Continue home anti hyperglycemics. Initiating Accu-Cheks with sliding scale insulin #. Essential hypertension: Continue home antihypertensives #. Hypothyroidism: On levothyroxine 50 mcg #. Obesity: Counseled regarding diet and exercise #. SERA: Does not tolerate CPAP #. Microcytic anemia: Continue p.o. iron supplementation DVT prophylaxis: Lovenox 1 mg/kg b.i.d. Full Code Cardiac diet Admit as inpatient and will require two night minimum hospital stay for therapeutic Lovenox Time Spent With Patient Time: Total time managing care of this patient today ____ minutes. Quality Stroke Does the patient have a stroke diagnosis?: No VTE Prior VTE?: Yes VTE Risk Level:: Medical - moderate - high VTE Device Contraindication: Treatment Not Indicated VTE Drug Contraindication: N/A - Med Ordered
[2022-10-25] MEDS: Enoxaparin Sodium 150 MG/ML SYRINGE 135 MG SUBCUT (22:57)
[2022-10-25] MEDS: Potassium Chloride ER 20 MEQ TAB.ER.PRT 40 MEQ PO (23:31)
[2022-10-25 23:48] LABS: Troponin-I High Sensitivity < 3.5 ng/L (<3.5-17.0)
[2022-10-25 23:53] VITALS: BP 138/75; PULSE 93; RESP 20; TEMP 36.6; O2SAT 96
[2022-10-26] VITALS (8 sets, daily range): BP systolic 103–145; BP diastolic 51–74; PULSE 67–114; RESP 15–20; TEMP 36.4–37.4; O2SAT 92–98; BMI 52.6
[2022-10-26 00:13] LABS: Appearance Urine Clear; Color Urine Yellow; Glucose Urine UA 500 mg/dL (Negative); Leukocyte Esterase Urine Trace (Negative); Nitrite Urine Negative (Negative); PH 5.5 (5.0-9.0); Specific Gravity - Urine >= 1.030 (1.005-1.025); UMIC TRIGGER UACC YES; Urine Blood Negative (Negative); Urine Ketones Negative (Negative); Urine Protein 30 (1+) mg/dL (Neg-Trace)
[2022-10-26 01:07] LABS: Bacteria Urine Trace (None Seen); Hyaline Casts Urine 0-2 /LPF (0-2); RBC Urine 0-2 /HPF (0-2); UACC Culture Trigger YES
[2022-10-26] MEDS: 0.9 % Sodium Chloride Flush 3 ML SYRINGE IVFLUSH ×4 (01:43→20:24)
[2022-10-26 06:27] LABS: MANUAL DIFF FLAG NO
[2022-10-26 06:31] LABS: Basophils Percent Auto 0.4 % (0-2); Eosinophils Absolute Auto 0.2 X10*3/uL (0.0-0.4); Eosinophils Percent Auto 2.5 % (0-4); Hematocrit 32.4 % (37.0-47.0); Hemoglobin 10.1 g/dl (12.0-16.0); Imm Gran Abs Auto 0.03 X10*3/uL (0.00-0.03); Imm Gran Pct Auto 0.3 % (0.0-0.4); Lymphocytes Percent Auto 31.3 % (20-40); Mean Corpuscular HGB Conc 31.2 g/dl (31.0-35.0); Mean Corpuscular Hemoglobin 23.7 pg (27.0-33.0); Mean Corpuscular Volume 75.9 fL (80.0-98.0); Mean Platelet Volume 11.1 fL (9.4-12.3); Monocytes Absolute Auto 0.8 X10*3/uL (0.1-1.2); Monocytes Percent Auto 8.3 % (2-11); Neutrophils Absolute Auto 5.5 x10*3/uL (2.0-8.3); Neutrophils Percent Auto 57.2 % (45-73); Platelet Count 103 X10*3/uL (160-400); Red Blood Count 4.27 X10*6/uL (4.20-5.50); Red Cell Distribution Width 16.9 % (11.0-16.0); White Blood Count 9.6 X10*3/uL (4.8-10.8)
[2022-10-26 06:49] LABS: Anion Gap 14 (12-20); Blood Urea Nitrogen 16 mg/dL (9-16); Calcium 8.5 mg/dL (8.4-10.2); Carbon Dioxide 24 mmol/L (22-29); Chloride 105 mmol/L (96-108); Creatinine Clr Calc Pharmacy 98.4; Estimated Glomerular Filt Rate 59; Glucose Random 158 mg/dL (60-115); Potassium 3.2 mmol/L (3.3-5.1); Sodium 140 mmol/L (135-145)
[2022-10-26 07:49] LABS: Glucose, Whole Blood 186 mg/dL (60-115)
[2022-10-26] MEDS: hydroCHLOROthiazide 25 MG TABLET PO (09:15)
[2022-10-26] MEDS: Valsartan 320 MG TABLET PO (09:15)
[2022-10-26] MEDS: Insulin Lispro 100 UNIT/ML 3 ML VIAL SUBCUT ×3 (09:15→17:50)
[2022-10-26] MEDS: Potassium Chloride ER 20 MEQ TAB.ER.PRT 40 MEQ PO (10:05)
[2022-10-26] MEDS: Apixaban 5 MG TABLET 10 MG PO ×2 (10:05→20:22)
--- NOTE | 2022-10-26 10:28 | P.DS_ITS ---
DS: Providers Provider Date of Service: 10/26/22 Date of admission: 10/25/22 22:08 Date of discharge: 10/26/22 Primary care physician: Deena Workman MD DS: Diagnosis Discharge Diagnosis (1) Bilateral pulmonary embolism: Status: Acute (2) Family history of deep venous thrombosis: Status: Acute (3) Morbid obesity: Status: Acute (4) Thyroid with heterogeneous echotexture determined by ultrasound: Status: Acute DS: Summary Hospital Course Hospital Course: from admission H+P by hospitalist Salinas Solano MD, 10/25/22: This is a 47-year-old female with pertinent history of essential hypertension, fng-ytafwkl-truzcqgii diabetes mellitus, hypothyroidism, mixed hyperlipidemia, history of PE who presents to the emergency department 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 Patient saw Dr. Land today and was sent to the ER.? Patient has been complaining of pleuritic chest discomfort and dyspnea with exertion.? She felt this when she went to the gym and felt short of breath and dizzy.? Her D-dimer was found to be elevated.? She got CT scan outpatient which revealed PE.? Patient states she was diagnosed with PE 2 years ago when she was put on Eliquis.? She was taking Eliquis b.i.d. for the first 6 months but does not know when she switched it to once daily.? Patient also endorses nonproductive cough.? No fever, chills, chest discomfort, palpitations, abdominal pain, changes in urinary or bowel habits. She [place] [facility]. She was not hypoxic and there were no signs of right heart strain. It is pretty clear that her PE was related to suboptimal Eliquis dosing frequency; it should be bid rather than daily. Given recurrence of PE and significant family history of VTE [mother and brother], she should remain on Eliquis indefinitely. She was discharged on 10 mg bid x 7 days followed by 5 mg bid indefinitely. She was referred to Hematology for thrombophilia testing. Incidental finding on CT chest of heterogeneous right lobe of thyroid gland. This may represent a goiter and should be assessed with a thyroid ultrasound as an outpatient. Time Spent with Patient Time attestation: Total time managing care of this patient today ___35_ minutes. Discharge coordination time: Greater than 30 minutes Quality: Safe Use of Opioids Does Pt have an Active Cancer Diagnosis on the Problem List?: No Quality: Stroke Does the patient have a stroke diagnosis?: No Physical Exam Vital Signs: Vital Signs: Last Vital Signs Temp 98.6 F 10/26/22 07:30 Pulse 83 10/26/22 07:30 Resp 18 10/26/22 07:30 BP 103/56 L 10/26/22 07:30 Pulse Ox 97 10/26/22 07:30 O2 Del Method 10/26/22 07:30 BMI result Body Mass Index 52.6 DS: Data Data Completed and Pending Completed studies during hospitalization [Text1]: Laboratory Results WBC 9.6 X10*3/uL (4.8-10.8) 10/26/22 05:55 RBC 4.27 X10*6/uL (4.20-5.50) 10/26/22 05:55 Hgb 10.1 g/dl (12.0-16.0) L 10/26/22 05:55 Hct 32.4 % (37.0-47.0) L 10/26/22 05:55 MCV 75.9 fL (80.0-98.0) L 10/26/22 05:55 MCH 23.7 pg (27.0-33.0) L 10/26/22 05:55 MCHC 31.2 g/dl (31.0-35.0) 10/26/22 05:55 RDW 16.9 % (11.0-16.0) H 10/26/22 05:55 Plt Count 103 X10*3/uL (160-400) L 10/26/22 05:55 MPV 11.1 fL (9.4-12.3) 10/26/22 05:55 Immature Gran % (Auto) 0.3 % (0.0-0.4) 10/26/22 05:55 Neut % (Auto) 57.2 % (45-73) 10/26/22 05:55 Lymph % (Auto) 31.3 % (20-40) 10/26/22 05:55 Boone % (Auto) 8.3 % (2-11) 10/26/22 05:55 Eos % (Auto) 2.5 % (0-4) 10/26/22 05:55 Baso % (Auto) 0.4 % (0-2) 10/26/22 05:55 Lymph # (Auto) 3.0 X10*3/uL (1.2-4.9) 10/26/22 05:55 [place] # (Auto) 0.8 X10*3/uL (0.1-1.2) 10/26/22 05:55 Eos # (Auto) 0.2 X10*3/uL (0.0-0.4) 10/26/22 05:55 Baso # (Auto) 0.0 X10*3/uL (0.0-0.2) 10/26/22 05:55 Abs Immat Gran (auto) 0.03 X10*3/uL (0.00-0.03) 10/26/22 05:55 Absolute Neuts (auto) 5.5 x10*3/uL (2.0-8.3) 10/26/22 05:55 Absolute Nucleated RBC 0.000 X10*3/uL (0.0-0.012) 10/26/22 05:55 Nucleated RBC % (auto) 0.0 /100WBC (0.0-0.2) 10/26/22 05:55 PT 11.7 SEC (10.0-13.1) 10/25/22 18:32 INR 1.0 (0.9-1.1) 10/25/22 18:32 APTT 29.6 SEC (26.0-36.4) 10/25/22 20:28 Sodium 140 mmol/L (135-145) 10/26/22 05:55 Potassium 3.2 mmol/L (3.3-5.1) L 10/26/22 05:55 Chloride 105 mmol/L (96-108) 10/26/22 05:55 Carbon Dioxide 24 mmol/L (22-29) 10/26/22 05:55 Anion Gap 14 (12-20) 10/26/22 05:55 BUN 16 mg/dL (9-16) 10/26/22 05:55 Creatinine 1.01 mg/dL (0.5-1.4) 10/26/22 05:55 Estim Creat Clear Calc 98.4 10/26/22 05:55 Estimated GFR 59 10/26/22 05:55 POC Glucose 186 mg/dL (60-115) H 10/26/22 07:31 Random Glucose 158 mg/dL (60-115) H 10/26/22 05:55 Calcium 8.5 mg/dL (8.4-10.2) 10/26/22 05:55 Magnesium 1.6 mg/dL (1.6-2.6) 10/25/22 18:32 Total Bilirubin 0.5 mg/dL (0.0-1.0) 10/25/22 18:32 AST 12 U/L (5-31) 10/25/22 18:32 ALT 10 U/L (0-31) 10/25/22 18:32 Alkaline Phosphatase 87 U/L (39-117) 10/25/22 18:32 Troponin I High Sens < 3.5 ng/L (<3.5-17.0) 10/25/22 23:21 B-Natriuretic Peptide < 10 pg/mL (<100) 10/25/22 18:32 Total Protein 6.5 g/dL (6.5-8.0) 10/25/22 18:32 Albumin 3.8 g/dL (3.5-5.0) 10/25/22 18:32 Beta HCG, Quant < 2 mIU/mL 10/25/22 18:32 Urine Color Yellow 10/26/22 00:04 Urine Appearance Clear 10/26/22 00:04 Urine pH 5.5 (5.0-9.0) 10/26/22 00:04 Ur Specific Dennis >= 1.030 (1.005-1.025) H 10/26/22 00:04 Urine Protein 30 (1+) mg/dL (Neg-Trace) H 10/26/22 00:04 Urine Glucose (UA) 500 mg/dL (Negative) H 10/26/22 00:04 Urine Ketones Negative mg/dL (Negative) 10/26/22 00:04 Urine Blood Negative (Negative) 10/26/22 00:04 Urine Nitrite Negative (Negative) 10/26/22 00:04 Ur Leukocyte Esterase Trace (Negative) H 10/26/22 00:04 Urine RBC 0-2 /HPF (0-2) 10/26/22 00:04 Urine WBC 6-10 /HPF (0-5) H 10/26/22 00:04 Ur Squamous Epith Cells 6-10 /HPF (0-2) 10/26/22 00:04 Urine Bacteria Trace (None Seen) 10/26/22 00:04 Hyaline Casts 0-2 /LPF (0-2) 10/26/22 00:04 Influenza Type A (PCR) NEGATIVE (Negative) 10/25/22 18:33 Influenza Type B (PCR) NEGATIVE (Negative) 10/25/22 18:33 RSV RNA Qual (PCR) NEGATIVE (Negative) 10/25/22 18:33 SARS-CoV-2 RNA (RT-PCR) NEGATIVE (Negative) 10/25/22 18:33 CTA chest 10/25/22 Bilateral segmental and subsegmental pulmonary emboli. No evidence of right heart strain. Stable enlarged heterogeneous right lobe of thyroid gland. This may represent a goiter. Follow-up thyroid ultrasound recommended. Probable hepatosplenomegaly. ? Discharge Plan Discharge Anticipated Discharge Date/Time: 10/26/22 10:23 Patient Disposition: Home, Self-Care Discharge Diagnosis: pulmonary embolism, recurrent Referrals: Deena Workman MD [Primary Care Provider] - 1 Week Shahida Bustos MD [Physician] - 1 Week Discharge Medications: New Eliquis DVT-PE Treat 30D Start 5 mg (74 tabs) tablets,dose pack See Rx Instructions .ROUTE .COMPLEX Qty: 74 0RF Rx Instructions: 2 tabs (10 mg) twice daily for 7 days, then 1 tab (5 mg) twice daily Continued albuterol sulfate [Proventil HFA] 90 mcg/actuation HFA aerosol inhaler 2 inh inhalation Q6H PRN (Reason: shortness of breath or wheezing) 30 Days Qty: 6.7 12RF ibuprofen 800 mg tablet 800 mg PO Q8H PRN (Reason: Pain (Scale Score 4-6)) atorvastatin 20 mg tablet 20 mg PO BEDTIME glimepiride 4 mg tablet 4 mg PO BEDTIME Janumet XR 50-1,000 mg tablet, ER multiphase 24 hr 1 tab PO BEDTIME (DME) FreeStyle Lite Strips Strip See Rx Instructions Not Applicable BID Qty: 10 Rx Instructions: As directed levothyroxine 50 mcg tablet 50 mcg PO BEDTIME cyanocobalamin (vitamin B-12) 1,000 mcg tablet 1,000 mcg PO BEDTIME valsartan-hydrochlorothiazide 320-25 mg tablet 1 tab PO BEDTIME ferrous sulfate 325 mg (65 mg iron) tablet 325 mg PO MOFR@2100 benzonatate 200 mg capsule 200 mg PO BID PRN (Reason: cough) 30 Days Qty: 60 0RF Discontinued Eliquis 5 mg tablet 5 mg PO BEDTIME Discharge Orders: Discharge Order (Routine); Ordered 10/26/22 Ordered By: Noelle Nathan Diet: Advance to usual diet Activity on Discharge: As tolerated Stand Alone Forms: Patient Portal Discharge page Care Plan Goals: treatment of pulmonary embolism, prevention of future PEs Health Concerns: pulmonary embolism, recurrent Plan of Treatment: apixaban [Eliquis] 10 mg [two 5 mg tabs] daily for 7 days, then 5 mg [one 5 mg tab] twice daily indefinitely follow up with [facility] [place] Hematology for testing for thrombophilia:? [address] [address] Please follow up with your primary care doctor within 1 week. Return to the hospital if you experience recurrent or worsening symptoms. Incidental finding on CT chest of heterogeneous right lobe of thyroid gland. This may represent a goiter and should be assessed with a thyroid ultrasound as an outpatient. Assessment: See Discharge Summary.
--- NOTE | 2022-10-26 10:32 | MHC.CM.PN ---
Patient D/C order prior to CM interview. order for home, self care. CM acknowledge.
--- NOTE | 2022-10-26 10:48 | P.PNIM_ITS ---
Subjective Subjective Date of Service: 10/26/22 Interval History: feels short of breath but not hypoxic mother and brother with hx VTE Review of Systems Review of Systems: Yes all other systems are reviewed and are negative Physical Exam Vital Signs: Vital Signs: Last Vital Signs Temp 98.6 F 10/26/22 07:30 Pulse 83 10/26/22 07:30 Resp 18 10/26/22 07:30 BP 103/56 L 10/26/22 07:30 Pulse Ox 97 10/26/22 07:30 O2 Del Method 10/26/22 07:30 BMI result Body Mass Index 52.6 Const: Other: Gen: in no acute distress HEENT: sclera anicteric, moist mucus membranes Neck: supple Lungs: clear to auscultation bilaterally Heart: regular rate and rhythm, no murmurs Abd: soft, non-tender, non-distended, morbid obesity Ext: no edema Skin: warm/well-perfused Neuro: alert and oriented x3, no focal findings Psych: appropriate affect Objective Data Active Medications Acetaminophen (Acetaminophen 325 Mg Tablet) 650 mg PO Q6H PRN PRN Reason: Pain, Mild (Pain Scale 1-3) Albuterol Sulfate (Albuterol Sulfate 90 Mcg 8 Gm Inhaler) 2 puff INHALE Q6H PRN PRN Reason: shortness of breath or wheezing Apixaban (Apixaban 5 Mg Tablet) 10 mg PO BID [facility] Stop: 11/01/22 21:01 Last Admin: 10/26/22 10:05 Dose: 10 mg Documented By: ZOILA Atorvastatin Calcium (Atorvastatin Calcium 20 Mg Tablet) 20 mg PO BEDTIME [facility] Benzonatate (Benzonatate 100 Mg Capsule) 200 mg PO BID PRN PRN Reason: cough Cyanocobalamin (Cyanocobalamin (Vitamin B-12) 1,000 Mcg Tablet) 1,000 mcg PO BEDTIME [facility] Dextrose (Dextrose 50 % 25 Gm/50 Ml Syringe) 25 gm IVPUSH Q15M PRN; Protocol PRN Reason: per Hypoglycemia Standing Ord. Ferrous Sulfate (Ferrous Sulfate 324 Mg Tablet.Dr) 324 mg PO MOFR@2100 [facility] Glipizide (Glipizide 10 Mg Tablet) 10 mg PO BEDTIME [facility] Glucose (Glucose Gel 15 Gm Gel..Gram.) 15 gm PO Q15M PRN; Protocol PRN Reason: per Hypoglycemia Standing Ord. Hydrochlorothiazide (Hydrochlorothiazide 25 Mg Tablet) 25 mg PO DAILY [facility] Last Admin: 10/26/22 09:15 Dose: 25 mg Documented By: ZOILA Ibuprofen (Ibuprofen 800 Mg Tablet) 800 mg PO Q8H PRN PRN Reason: Pain (Scale Score 4-6) Insulin Human Lispro (Insulin Lispro 100 Unit/Ml 3 Ml Vial) 0 unit SUBCUT QIDACHS [facility]; Protocol Last Admin: 10/26/22 09:15 Dose: 2 unit Documented By: ZOILA Levothyroxine Sodium (Levothyroxine Sodium 50 Mcg Tablet) 50 mcg PO BEDTIME [facility] Melatonin (Melatonin 3 Mg Tablet) 6 mg PO BEDTIME PRN PRN Reason: Insomnia Ondansetron HCl (Ondansetron Hcl 4 Mg/2 Ml Vial) 4 mg IVPUSH Q8H PRN PRN Reason: Nausea and Vomiting Pharmacy Consult (Consult Rx Perform Med Rec) 1 each MISCELLANE ONCE PRN PRN Reason: Consult order Sitagliptin Phosphate (Sitagliptin Phosphate 50 Mg Tablet) 50 mg PO BEDTIME [facility] Sodium Chloride (0.9 % Sodium Chloride Flush 3 Ml Syringe) 3 ml IVFLUSH QSHIFT [facility] Last Admin: 10/26/22 09:16 Dose: 3 ml Documented By: ZOILA Valsartan (Valsartan 320 Mg Tablet) 320 mg PO DAILY [facility] Last Admin: 10/26/22 09:15 Dose: 320 mg Documented By: ZOILA Labs 10/26/22 05:55 10/26/22 05:55 Labs: Laboratory Results - last 24 hr 10/25/22 10/25/22 10/25/22 18:32 18:32 18:32 MCV 76.4 L MCH 23.6 L MCHC 30.8 L RDW 16.9 H Plt Count 113 L MPV 11.0 Immature Gran % (Auto) 0.4 Neut % (Auto) 67.2 Lymph % (Auto) 23.7 [place] % (Auto) 6.5 Eos % (Auto) 1.6 Baso % (Auto) 0.6 Lymph # (Auto) 2.6 [place] # (Auto) 0.7 Eos # (Auto) 0.2 Baso # (Auto) 0.1 Abs Immat Gran (auto) 0.04 H Absolute Neuts (auto) 7.3 Absolute Nucleated RBC 0.000 Nucleated RBC % (auto) 0.0 PT 11.7 INR 1.0 APTT 29.3 Anion Gap 15 Estim Creat Clear Calc 82.5 Estimated GFR 49 POC Glucose Random Glucose 275 H Calcium 8.8 Magnesium 1.6 Total Bilirubin 0.5 AST 12 ALT 10 Alkaline Phosphatase 87 Troponin I High Sens B-Natriuretic Peptide Total Protein 6.5 Albumin 3.8 Beta HCG, Quant < 2 Urine Color Urine Appearance Urine pH Ur Specific [place] Urine Protein Urine Glucose (UA) Urine Ketones Urine Blood Urine Nitrite Ur Leukocyte Esterase Urine RBC Urine WBC Ur Squamous Epith Cells Urine Bacteria Hyaline Casts Influenza Type A (PCR) Influenza Type B (PCR) RSV RNA Qual (PCR) SARS-CoV-2 RNA (RT-PCR) 10/25/22 10/25/22 10/25/22 18:32 18:33 20:28 MCV MCH MCHC RDW Plt Count MPV Immature Gran % (Auto) Neut % (Auto) Lymph % (Auto) [place] % (Auto) Eos % (Auto) Baso % (Auto) Lymph # (Auto) [place] # (Auto) Eos # (Auto) Baso # (Auto) Abs Immat Gran (auto) Absolute Neuts (auto) Absolute Nucleated RBC Nucleated RBC % (auto) PT INR APTT 29.6 Anion Gap Estim Creat Clear Calc Estimated GFR POC Glucose Random Glucose Calcium Magnesium Total Bilirubin AST ALT Alkaline Phosphatase Troponin I High Sens B-Natriuretic Peptide < 10 Total Protein Albumin Beta HCG, Quant Urine Color Urine Appearance Urine pH Ur Specific [place] Urine Protein Urine Glucose (UA) Urine Ketones Urine Blood Urine Nitrite Ur Leukocyte Esterase Urine RBC Urine WBC Ur Squamous Epith Cells Urine Bacteria Hyaline Casts Influenza Type A (PCR) NEGATIVE Influenza Type B (PCR) NEGATIVE RSV RNA Qual (PCR) NEGATIVE SARS-CoV-2 RNA (RT-PCR) NEGATIVE 10/25/22 10/26/22 10/26/22 23:21 00:04 05:55 MCV 75.9 L MCH 23.7 L MCHC 31.2 RDW 16.9 H Plt Count 103 L MPV 11.1 Immature Gran % (Auto) 0.3 Neut % (Auto) 57.2 Lymph % (Auto) 31.3 [place] % (Auto) 8.3 Eos % (Auto) 2.5 Baso % (Auto) 0.4 Lymph # (Auto) 3.0 [place] # (Auto) 0.8 Eos # (Auto) 0.2 Baso # (Auto) 0.0 Abs Immat Gran (auto) 0.03 Absolute Neuts (auto) 5.5 Absolute Nucleated RBC 0.000 Nucleated RBC % (auto) 0.0 PT INR APTT Anion Gap Estim Creat Clear Calc Estimated GFR POC Glucose Random Glucose Calcium Magnesium Total Bilirubin AST ALT Alkaline Phosphatase Troponin I High Sens < 3.5 B-Natriuretic Peptide Total Protein Albumin Beta HCG, Quant Urine Color Yellow Urine Appearance Clear Urine pH 5.5 Ur Specific [place] >= 1.030 H Urine Protein 30 (1+) H Urine Glucose (UA) 500 H Urine Ketones Negative Urine Blood Negative Urine Nitrite Negative Ur Leukocyte Esterase Trace H Urine RBC 0-2 Urine WBC 6-10 H Ur Squamous Epith Cells 6-10 Urine Bacteria Trace Hyaline Casts 0-2 Influenza Type A (PCR) Influenza Type B (PCR) RSV RNA Qual (PCR) SARS-CoV-2 RNA (RT-PCR) 10/26/22 10/26/22 05:55 07:31 MCV MCH MCHC RDW Plt Count MPV Immature Gran % (Auto) Neut % (Auto) Lymph % (Auto) [place] % (Auto) Eos % (Auto) Baso % (Auto) Lymph # (Auto) [place] # (Auto) Eos # (Auto) Baso # (Auto) Abs Immat Gran (auto) Absolute Neuts (auto) Absolute Nucleated RBC Nucleated RBC % (auto) PT INR APTT Anion Gap 14 Estim Creat Clear Calc 98.4 Estimated GFR 59 POC Glucose 186 H Random Glucose 158 H Calcium 8.5 Magnesium Total Bilirubin AST ALT Alkaline Phosphatase Troponin I High Sens B-Natriuretic Peptide Total Protein Albumin Beta HCG, Quant Urine Color Urine Appearance Urine pH Ur Specific [place] Urine Protein Urine Glucose (UA) Urine Ketones Urine Blood Urine Nitrite Ur Leukocyte Esterase Urine RBC Urine WBC Ur Squamous Epith Cells Urine Bacteria Hyaline Casts Influenza Type A (PCR) Influenza Type B (PCR) RSV RNA Qual (PCR) SARS-CoV-2 RNA (RT-PCR) Assessment and Plan (1) Family history of deep venous thrombosis: Status: Acute (2) Bilateral pulmonary embolism: Status: Acute Plan hospital d#2 47yo F with essential hypertension, [id number] diabetes mellitus, hypothyroidism, mixed hyperlipidemia, and history of prior PE after Covid infe ction who presents to the emergency department at the behest of her gambreler for abnormal imaging, found to have bilateral segmental + subsegmental PE #?non-massive bilateral segmental and subsegmental PE, recurrent - Inadequate frequency of Eliquis. 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 Recommend full dose AC, Eliquis 10 mg bid x 7 days then 5 mg bid indefinitely. Outpt thrombophilia workup # incidental thyroid gland heterogeneiety - outpt thyroid US # DM2 - correction-dose lispro, sitagliptin # HTN - valsartan + HCTZ # hypothyroidism - LT4 # morbid obesity - diet/exercise counseling # VTE ppx: apixaban # dispo: likely home in next day or two In my clinical judgment, the patient requires continued inpatient hospitalization for the following reasons: dyspnea Time Spent With Patient Time: Total time managing care of this patient today __35__ minutes. Quality Stroke Does the patient have a stroke diagnosis?: No VTE Prior VTE?: Yes VTE Risk Level:: Medical - moderate - high VTE Device Contraindication: Treatment Not Indicated VTE Drug Contraindication: N/A - Med Ordered
[2022-10-26 11:36] LABS: Glucose, Whole Blood 256 mg/dL (60-115)
--- NOTE | 2022-10-26 14:26 | MHC.CM.PN ---
Lives with at home; no prior services, no prior equipment, still drives. has been encouraging her to use a walker or a cane but patient has been refusing. PCP on file correct. D/C plan is home w/ via and (? in-home PT ?). CM to follow.
[2022-10-26 16:49] LABS: Glucose, Whole Blood 169 mg/dL (60-115)
[2022-10-26] MEDS: Acetaminophen 325 MG TABLET 650 MG PO (20:20)
[2022-10-26] MEDS: Melatonin 3 MG TABLET 6 MG PO (20:21)
[2022-10-26] MEDS: Cyanocobalamin (Vitamin B-12) 1,000 MCG TABLET 1000 MCG PO (20:21)
[2022-10-26] MEDS: SITagliptin Phosphate 50 MG TABLET PO (20:21)
[2022-10-26] MEDS: Levothyroxine Sodium 50 MCG TABLET PO (20:21)
[2022-10-26] MEDS: glipiZIDE 10 MG TABLET PO (20:21)
[2022-10-26] MEDS: Atorvastatin Calcium 20 MG TABLET PO (20:22)
[2022-10-26 20:26] LABS: Glucose, Whole Blood 117 mg/dL (60-115)
[2022-10-27] VITALS: BP 104/53; PULSE 68; RESP 20; TEMP 36.3; O2SAT 96
[2022-10-27] MEDS: Ibuprofen 800 MG TABLET PO ×2 (00:13→09:43)
[2022-10-27 02:53] VITALS: BP 108/68; PULSE 81; RESP 20; TEMP 36.4; O2SAT 97
[2022-10-27 07:24] LABS: Glucose, Whole Blood 111 mg/dL (60-115)
[2022-10-27 08:00] VITALS: BP 115/72; PULSE 80; RESP 20; TEMP 36.7; O2SAT 98
[2022-10-27] MEDS: Valsartan 320 MG TABLET PO (08:44)
[2022-10-27] MEDS: hydroCHLOROthiazide 25 MG TABLET PO (08:44)
[2022-10-27] MEDS: Apixaban 5 MG TABLET 10 MG PO (08:44)
[2022-10-27] MEDS: 0.9 % Sodium Chloride Flush 3 ML SYRINGE IVFLUSH (08:45)
--- NOTE | 2022-10-27 09:55 | PM.DS ---
DS: Providers Provider Date of Service: 10/27/22 Date of admission: 10/25/22 22:08 Primary care physician: Deena Workman MD DS: Diagnosis Discharge Diagnosis (1) Family history of deep venous thrombosis: Status: Acute (2) Bilateral pulmonary embolism: Status: Acute DS: Summary Hospital Course Hospital Course: from admission H+P by hospitalist Salinas Solano MD, 10/25/22: This is a 47-year-old female with pertinent history of essential hypertension, ioh-[id number] diabetes mellitus, hypothyroidism, mixed hyperlipidemia, history of PE who presents to the emergency department at the behest of her industrial specialist for abnormal imaging.? Patient saw Dr. Land today and was sent to the ER.? Patient has been complaining of pleuritic chest discomfort and dyspnea with exertion.? She felt this when she went to the gym and felt short of breath and dizzy.? Her D-dimer was found to be elevated.? She got CT scan outpatient which revealed PE.? Patient states she was diagnosed with PE 2 years ago when she was put on Eliquis.? She was taking Eliquis b.i.d. for the first 6 months but does not know when she switched it to once daily.? Patient also endorses nonproductive cough.? No fever, chills, chest discomfort, palpitations, abdominal pain, changes in urinary or bowel habits. She was admitted to the [facility] on therapeutic enoxaparin. She was not hypoxic and there were no signs of right heart strain. It is pretty clear that her PE was related to suboptimal Eliquis dosing frequency; it should be bid rather than daily. Given recurrence of PE and significant family history of VTE [mother and brother], she should remain on Eliquis indefinitely. She was discharged on 10 mg bid x 7 days followed by 5 mg bid indefinitely. She was referred to Hematology for thrombophilia testing. Incidental finding on CT chest of heterogeneous right lobe of thyroid gland. This may represent a goiter and should be assessed with a thyroid ultrasound as an outpatient. Time Spent with Patient Time attestation: Total time managing care of this patient today ____ minutes. Discharge coordination time: Greater than 30 minutes Quality: Safe Use of Opioids Does Pt have an Active Cancer Diagnosis on the Problem List?: No Quality: Stroke Does the patient have a stroke diagnosis?: No Physical Exam Vital Signs: Vital Signs: Last Vital Signs Temp 98.0 F 10/27/22 08:00 Pulse 80 10/27/22 08:00 Resp 20 10/27/22 08:00 BP 115/72 10/27/22 08:00 Pulse Ox 98 10/27/22 08:00 O2 Del Method 10/27/22 08:00 BMI result Body Mass Index 52.6 Const: Other: Gen: in no acute distress HEENT: sclera anicteric, moist mucus membranes Neck: supple Lungs: clear to auscultation bilaterally Heart: regular rate and rhythm, no murmurs Abd: soft, non-tender, non-distended, morbid obesity Ext: no edema Skin: warm/well-perfused Neuro: alert and oriented x3, no focal findings Psych: appropriate affect DS: Data Data Completed and Pending Labs on day of discharge: Laboratory Results - last 24 hr 10/26/22 10/26/22 10/26/22 11:18 16:42 20:15 POC Glucose 256 H 169 H 117 H 10/27/22 07:09 POC Glucose 111 Discharge Plan Discharge Anticipated Discharge Date/Time: 10/27/22 09:54 Patient Disposition: Home, Self-Care Discharge Diagnosis: pulmonary embolism, recurrent Referrals: Deena Workman MD [Primary Care Provider] - 1 Week Shahida Bustos MD [Physician] - 1 Week Discharge Medications: New Eliquis DVT-PE Treat 30D Start 5 mg (74 tabs) tablets,dose pack See Rx Instructions .ROUTE .COMPLEX Qty: 74 0RF Rx Instructions: 2 tabs (10 mg) twice daily for 7 days, then 1 tab (5 mg) twice daily Continued albuterol sulfate [Proventil HFA] 90 mcg/actuation HFA aerosol inhaler 2 inh inhalation Q6H PRN (Reason: shortness of breath or wheezing) 30 Days Qty: 6.7 12RF ibuprofen 800 mg tablet 800 mg PO Q8H PRN (Reason: Pain (Scale Score 4-6)) atorvastatin 20 mg tablet 20 mg PO BEDTIME glimepiride 4 mg tablet 4 mg PO BEDTIME Janumet XR 50-1,000 mg tablet, ER multiphase 24 hr 1 tab PO BEDTIME (DME) FreeStyle Lite Strips Strip See Rx Instructions Not Applicable BID Qty: 10 Rx Instructions: As directed levothyroxine 50 mcg tablet 50 mcg PO BEDTIME cyanocobalamin (vitamin B-12) 1,000 mcg tablet 1,000 mcg PO BEDTIME valsartan-hydrochlorothiazide 320-25 mg tablet 1 tab PO BEDTIME ferrous sulfate 325 mg (65 mg iron) tablet 325 mg PO MOFR@2100 benzonatate 200 mg capsule 200 mg PO BID PRN (Reason: cough) 30 Days Qty: 60 0RF Discontinued Eliquis 5 mg tablet 5 mg PO BEDTIME Discharge Orders: Discharge Order (Routine); Ordered 10/27/22 Ordered By: Tyrell De Leon Diet: Advance to usual diet Activity on Discharge: As tolerated Stand Alone Forms: Patient Portal Discharge page Care Plan Goals: treatment of pulmonary embolism, prevention of future PEs Health Concerns: pulmonary embolism, recurrent Plan of Treatment: apixaban [Eliquis] 10 mg [two 5 mg tabs] daily for 7 days, then 5 mg [one 5 mg tab] twice daily indefinitely follow up with [facility] [place] Hematology for testing for thrombophilia:? [address] [address] Please follow up with your primary care doctor within 1 week. Return to the hospital if you experience recurrent or worsening symptoms. Incidental finding on CT chest of heterogeneous right lobe of thyroid gland. This may represent a goiter and should be assessed with a thyroid ultrasound as an outpatient. Assessment: See Discharge Summary.
--- NOTE | 2022-10-27 10:21 | MHC.CM.PN ---
PT WILL DC HOME TODAY WITH NO SERVICES VIA PRIVATE TRANSPORT
== END 2022-10-27 11:05 | disposition home or self-care (01) | DRG 134 ==
LOC: HO.ED 20:47 → HO.EDOVER 22:14 → HO.IMC 10-26 00:27
PROVIDERS: Family Medicine; Physician Assistant Medical; Admitting Provider Student in an Organized Health Care Education/Training Program; Emergency Provider Emergency Medicine; PCP Internal Medicine; Visit Provider Hospitalist
DX: I26.94 Multiple subsegmental thrombotic pulmonary emboli without acute cor pulmonale (principal); Z68.43 Body mass index [BMI] 50.0-59.9, adult; E03.9 Hypothyroidism, unspecified; E78.5 Hyperlipidemia, unspecified; F41.9 Anxiety disorder, unspecified; G47.33 Obstructive sleep apnea (adult) (pediatric); E78.2 Mixed hyperlipidemia; E66.01 Morbid (severe) obesity due to excess calories; D50.9 Iron deficiency anemia, unspecified; T45.516A Underdosing of anticoagulants, initial encounter; E04.9 Nontoxic goiter, unspecified; Z20.822 Contact with and (suspected) exposure to COVID-19; Z86.16 Personal history of COVID-19; Z86.711 Personal history of pulmonary embolism; Z88.8 Allergy status to other drugs, medicaments and biological substances; Z79.01 Long term (current) use of anticoagulants; Z79.84 Long term (current) use of oral hypoglycemic drugs; Z79.890 Hormone replacement therapy; Z79.899 Other long term (current) drug therapy
CPT/HCPCS: 0241U; 36415; 80048; 80053; 81001; 82947; 83735; 83880; 84484; 84702; 85025; 85610; 85730; 87086; 93005; 97161; 99284; J1650

== ENCOUNTER 2022-11-02 10:09 | Outpatient (REF) | payer OTHER, SELFPAY ==
[2022-11-02 10:39] LABS: MANUAL DIFF FLAG NO
[2022-11-02 11:05] LABS: Basophils Absolute Auto 0.1 X10*3/uL (0.0-0.2); Basophils Percent Auto 0.6 % (0-2); Eosinophils Absolute Auto 0.2 X10*3/uL (0.0-0.4); Eosinophils Percent Auto 1.6 % (0-4); Hemoglobin 11.5 g/dl (12.0-16.0); Imm Gran Abs Auto 0.04 X10*3/uL (0.00-0.03); Imm Gran Pct Auto 0.4 % (0.0-0.4); Lymphocytes Absolute Auto 2.3 X10*3/uL (1.2-4.9); Mean Corpuscular HGB Conc 31.1 g/dl (31.0-35.0); Mean Corpuscular Hemoglobin 23.6 pg (27.0-33.0); Mean Platelet Volume 11.9 fL (9.4-12.3); Monocytes Absolute Auto 0.7 X10*3/uL (0.1-1.2); Monocytes Percent Auto 7.3 % (2-11); Neutrophils Absolute Auto 6.8 x10*3/uL (2.0-8.3); Neutrophils Percent Auto 67.1 % (45-73); Platelet Count 132 X10*3/uL (160-400); Red Blood Count 4.87 X10*6/uL (4.20-5.50); White Blood Count 10.1 X10*3/uL (4.8-10.8)
[2022-11-02 11:06] LABS: Estimated Average Glucose 197 mg/dL; Hemoglobin A1c % 8.5 %
[2022-11-02 12:16] LABS: Alanine Aminotransferase 15 U/L (0-31); Albumin Level 3.7 g/dL (3.5-5.0); Alkaline Phosphatase 88 U/L (39-117); Anion Gap 16 (12-20); Aspartate Amino Transferase 18 U/L (5-31); Bilirubin Total 0.4 mg/dL (0.0-1.0); Blood Urea Nitrogen 16 mg/dL (9-16); Calcium 8.7 mg/dL (8.4-10.2); Carbon Dioxide 24 mmol/L (22-29); Chloride 103 mmol/L (96-108); Estimated Glomerular Filt Rate 58; Glucose Random 164 mg/dL (60-115); Potassium 3.9 mmol/L (3.3-5.1); Sodium 139 mmol/L (135-145); Total Protein 6.4 g/dL (6.5-8.0)
[2022-11-02 12:32] LABS: Vitamin D 25-OH Total 8.7 ng/mL (>30)
[2022-11-04 22:58] LABS: Hematocrit 36.2 % (35.0-45.0); Hemoglobin 11.4 g/dL (11.7-15.5); MCH 24.1 pg (27.0-33.0); MCV 76.4 fL (80.0-100.0); RBC 4.74 Million/uL (3.80-5.10); RDW 16.8 % (11.0-15.0)
== END 2022-11-02 10:10 | disposition home or self-care (01) ==
LOC: HO.LAB 10:09
PROVIDERS: PCP Internal Medicine; Visit Provider Internal Medicine
DX: Z00.00 Encounter for general adult medical examination without abnormal findings (principal); D50.8 Other iron deficiency anemias; E11.9 Type 2 diabetes mellitus without complications; E78.2 Mixed hyperlipidemia; I10 Essential (primary) hypertension
CPT/HCPCS: 36415; 80053; 82306; 83020; 83036; 85014; 85018; 85025; 85041

== ENCOUNTER 2022-11-16 10:46 | Outpatient (REF) | payer OTHER, SELFPAY ==
[2022-11-16 11:06] LABS: MANUAL DIFF FLAG NO
[2022-11-16 11:32] LABS: Basophils Absolute Auto 0.1 X10*3/uL (0.0-0.2); Basophils Percent Auto 0.7 % (0-2); Eosinophils Absolute Auto 0.2 X10*3/uL (0.0-0.4); Eosinophils Percent Auto 2.1 % (0-4); Hematocrit 34.7 % (37.0-47.0); Hemoglobin 10.7 g/dl (12.0-16.0); Imm Gran Abs Auto 0.05 X10*3/uL (0.00-0.03); Imm Gran Pct Auto 0.5 % (0.0-0.4); Immature Retic Fraction 19.8 % (3.0-15.9); Lymphocytes Absolute Auto 2.5 X10*3/uL (1.2-4.9); Lymphocytes Percent Auto 23.5 % (20-40); Mean Corpuscular HGB Conc 30.8 g/dl (31.0-35.0); Mean Corpuscular Hemoglobin 23.8 pg (27.0-33.0); Mean Corpuscular Volume 77.1 fL (80.0-98.0); Mean Platelet Volume 11.9 fL (9.4-12.3); Monocytes Absolute Auto 0.8 X10*3/uL (0.1-1.2); Monocytes Percent Auto 7.1 % (2-11); Neutrophils Absolute Auto 7.1 x10*3/uL (2.0-8.3); Neutrophils Percent Auto 66.1 % (45-73); Platelet Count 143 X10*3/uL (160-400); Red Cell Distribution Width 16.4 % (11.0-16.0); Retic HGB Equivalent 26.6 pg (30.0-35.0); Reticulocyte Percent 1.6 % (0.5-1.8); Reticulocytes Absolute 0.074 X10*6/uL (0.026-0.095); White Blood Count 10.7 X10*3/uL (4.8-10.8)
[2022-11-16 11:58] LABS: Alanine Aminotransferase 18 U/L (0-31); Albumin Level 3.7 g/dL (3.5-5.0); Alkaline Phosphatase 97 U/L (39-117); Anion Gap 20 (12-20); Aspartate Amino Transferase 18 U/L (5-31); Bilirubin Total 0.4 mg/dL (0.0-1.0); Blood Urea Nitrogen 15 mg/dL (9-16); Calcium 8.7 mg/dL (8.4-10.2); Carbon Dioxide 23 mmol/L (22-29); Chloride 102 mmol/L (96-108); Estimated Glomerular Filt Rate 57; Glucose Random 183 mg/dL (60-115); Potassium 3.7 mmol/L (3.3-5.1); Sodium 141 mmol/L (135-145); Total Protein 6.3 g/dL (6.5-8.0)
[2022-11-16 12:16] LABS: Ferritin 22 ng/mL (10-250)
== END 2022-11-16 10:47 | disposition home or self-care (01) ==
LOC: HO.LAB 10:46
PROVIDERS: PCP Internal Medicine Medical Oncology; Visit Provider Internal Medicine Medical Oncology
DX: E66.01 Morbid (severe) obesity due to excess calories (principal); D50.9 Iron deficiency anemia, unspecified
CPT/HCPCS: 36415; 80053; 82728; 85025; 85045

== ENCOUNTER 2022-11-20 16:06 | Outpatient (REF) | payer OTHER, SELFPAY ==
--- NOTE | ~2022-11-20 | US_ITS ---
EXAMINATION: US THYROID CLINICAL INFORMATION: Thyroid enlargement. COMPARISON: CTA chest 10/25/2022. TECHNIQUE: Linear transducer grayscale and color Doppler examination with attention to the region of the thyroid. FINDINGS: SIZE: Measurements of the thyroid lobes and nodules are given in sagittal, anteroposterior and transverse dimensions respectively. Right Thyroid Lobe: 6.0 x 2.7 x 2.8 cm, volume 23.7 mL. Parenchyma: The gland echotexture is heterogeneous. Thyroid vascularity is increased. Left Thyroid Lobe: 5.7 x 1.3 x 1.3 cm, volume 5.0 mL. Parenchyma: The gland echotexture is heterogeneous. Thyroid vascularity is normal. Isthmus: 0.7 cm in maximum AP dimension. Estimated total number of nodules greater than or equal to 1 cm: 3. Byproducts Operator nodules are described as follows: 1. Location: Right superior/mid. Size: 4.2 x 2.6 x 3.1 cm, volume 17.5 mL. Nodule characteristics: Composition: Solid (2). Echogenicity: Hyperechoic (1). Shape: Not taller than wide (0). Margins: Smooth (0). Echogenic Foci: None (0). ACR TI-RADS total points: 3. ACR TI-RADS category: 3. 2. Location: Right mid. Size: 0.8 x 0.2 x 0.6 cm, volume 0.06 mL. Nodule characteristics: Composition: Solid (2). Echogenicity: Hypoechoic (2). Shape: Not taller than wide (0). Margins: Smooth (0). Echogenic Foci: None (0). ACR TI-RADS total points: 4. ACR TI-RADS category: 4. 3. Location: Right inferior. Size: 2.1 x 1.4 x 1.5 cm, volume 2.2 mL. Nodule characteristics: Composition: Mixed cystic and solid (1). Echogenicity: Cannot be determined (1). Shape: Not taller than wide (0). Margins: Smooth (0). Echogenic Foci: None (0). ACR TI-RADS total points: 2. ACR TI-RADS category: 2. 4. Location: Left inferior. Size: 0.4 x 0.4 x 0.4 cm, volume 0.03 mL. Nodule characteristics: Composition: Solid (2). Echogenicity: Hypoechoic (2). Shape: Not taller than wide (0). Margins: Smooth (0). Echogenic Foci: None (0). ACR TI-RADS total points: 4. ACR TI-RADS category: 4. 5. Location: Left inferior. Size: 1.1 x 1.1 x 1.2 cm, volume 0.7 mL. Nodule characteristics: Composition: Solid (2). Echogenicity: Hyperechoic (1). Shape: Not taller than wide (0). Margins: Smooth (0). Echogenic Foci: None (0). ACR TI-RADS total points: 3. ACR TI-RADS category: 3. NODES: No lymphadenopathy is seen in the tissue surrounding the thyroid gland. US/US thyroid IMPRESSION: Significantly enlarged and heterogeneous right thyroid lobe with a large right midpole and lower pole nodules. Recommend ultrasound-guided fine-needle biopsy of these 2 nodules if not already performed. ACR TI-RADS RECOMMENDATION REFERENCE: Ultrasound-guided fine-needle aspiration, followup ultrasound, no further follow up. * TR1 (0 point) and TR2 (2 points): No FNA or follow up. * TR3 (3 points): FNA if more than or equal to 2.5 cm in maximum dimension, followup ultrasound in 1, 3 and 5 years if 1.5 to 2.4 cm in maximum dimension. * TR4 (4-6 points): FNA if more than or equal to 1.5 cm in maximum dimension, followup ultrasound in 1, 2, 3 and 5 years if 1 to 1.4 cm in maximum dimension. * TR5 (more than or equal to 7 points): FNA if more than or equal to 1 cm in maximum dimension, followup ultrasound every year for 5 years if 0.5 to 0.9 cm in maximum dimension. * TR3, TR4 or TR5 nodules that are below the size threshold for followup receive no follow up.
--- NOTE | ~2022-11-20 | XR_ITS ---
EXAMINATION: XR KNEE AP STANDING CLINICAL INFORMATION: Pain COMPARISON: Left knee radiographs 05/27/2022 TECHNIQUE: AP bilateral standing view of the knees was obtained. FINDINGS: Bilateral tricompartmental osteoarthritis, worst within the medial compartment. There is no grossly displaced fracture on this single AP view. Soft tissue structures are within normal limits.
[2022-11-20 17:55] LABS: Fibrinogen 645 MG/DL (259-690); INTERNATIONAL NORM RATIO 1.1 (0.9-1.1); Prothrombin Time 12.2 SEC (10.0-13.1)
[2022-11-20 17:57] LABS: Partial Thromboplastin Time 32.3 SEC (26.0-36.4)
[2022-11-25 17:49] LABS: Homocysteine 9.3 umol/L (<10.4)
[2022-11-28 06:04] LABS: PTT (LAC) Screen 39 sec (<=40); Protein C Activity 94 % normal (70-180); Protein S Activity rflx Tot&Fr 64 % normal (60-140)
[2022-11-30 16:49] LABS: Factor V Leiden POSITIVE
[2022-12-02 19:04] LABS: Prothrombin 20210A NEGATIVE
== END 2022-11-20 16:07 | disposition home or self-care (01) ==
LOC: HO.US 16:06
PROVIDERS: PCP Internal Medicine Medical Oncology; Visit Provider Internal Medicine Medical Oncology
DX: M25.561 Pain in right knee (principal); M25.562 Pain in left knee; D68.59 Other primary thrombophilia; I26.99 Other pulmonary embolism without acute cor pulmonale; E04.9 Nontoxic goiter, unspecified
CPT/HCPCS: 36415; 73565; 76536; 81240; 81241; 83090; 85300; 85302; 85303; 85305; 85306; 85384; 85597; 85610; 85613; 85730

== ENCOUNTER → 2022-12-11 07:54 | Outpatient (BNVA) | payer OTHER, SELFPAY | PROVIDERS: PCP Internal Medicine Medical Oncology; Visit Provider Internal Medicine | DX: E04.2 Nontoxic multinodular goiter (principal) | CPT/HCPCS: 99202 ==

== ENCOUNTER 2022-12-24 07:28 | Outpatient (REF) | payer OTHER, SELFPAY ==
--- NOTE | ~2022-12-24 | CT_ITS ---
EXAMINATION: CT SOFT TISSUE NECK WITHOUT CONTRAST CLINICAL INFORMATION: Nontoxic multinodular goiter. COMPARISON: Thyroid ultrasound November 20, 2022 TECHNIQUE: Helical imaging was performed in the axial plane with generation of coronal and sagittal reformatted images. This CT examination was performed using dose optimization techniques as appropriate, variously including the following: *Automated exposure control *Adjustment of mA and/or kV according to patient size (this includes techniques or standardized protocols for targeted exams where dose is matched to indication/reason for exam; i.e. extremities or head) *Use of iterative reconstruction technique DLP: 418 mGy-cm FINDINGS: The nasopharynx appears normal. The oropharynx appears normal. No gross laryngeal abnormality is seen. The thyroid gland appears diffusely enlarged and keeping with known multinodular goiter. There is no compression of the trachea. No enlarged or calcified lymph nodes are seen. The parotid and submandibular glands appear normal. The upper lungs are clear. There is no acute intracranial abnormality. Paranasal sinuses and mastoids are clear. Cervical spine is intact with mild degenerative changes noted. CT/CT soft tissue neck wo IV con IMPRESSION: No neck mass or suspicious lymphadenopathy identified. Multinodular goiter noted. No compression of the trachea.
== END 2022-12-24 07:29 | disposition home or self-care (01) ==
LOC: HO.CT 07:28
PROVIDERS: PCP Internal Medicine; Visit Provider Internal Medicine
DX: E04.2 Nontoxic multinodular goiter (principal)
CPT/HCPCS: 70490

== ENCOUNTER → 2023-01-09 14:25 | Outpatient (BNVA) | payer OTHER, SELFPAY | PROVIDERS: PCP Internal Medicine; Visit Provider Hospitalist | DX: R06.00 Dyspnea, unspecified (principal); I26.99 Other pulmonary embolism without acute cor pulmonale; G47.33 Obstructive sleep apnea (adult) (pediatric); R60.0 Localized edema; E04.2 Nontoxic multinodular goiter; Z79.01 Long term (current) use of anticoagulants | CPT/HCPCS: 94618; 99212 ==

== ENCOUNTER 2023-01-21 13:31 | Outpatient (REF) | payer OTHER, SELFPAY ==
--- NOTE | ~2023-01-21 | US_ITS ---
EXAMINATION: US VENOUS ULTRASOUND WITH DOPPLER LOWER EXTREMITY, BILATERAL CLINICAL INFORMATION: Pleurodynia, lower extremity edema COMPARISON: Right lower extremity ultrasound from 11/26/2018 TECHNIQUE: Ultrasound of the deep veins is performed from the hip to the calf with compression sonography and color and pulse Doppler assessment. Spectral analysis with color-flow imaging is performed. FINDINGS: RIGHT: There is normal venous compression and respiratory variation and augmented flow. The visualized common femoral vein, superficial femoral vein, profunda femoral vein, popliteal vein, and the trifurcation region shows no evidence of deep venous thrombosis. There is no significant popliteal fossa cyst. LEFT: There is normal venous compression and respiratory variation and augmented flow. The visualized common femoral vein, superficial femoral vein, profunda femoral vein, popliteal vein, and the trifurcation region shows no evidence of deep venous thrombosis. There is no significant popliteal fossa cyst. US/US venous duplex LE BI IMPRESSION: No DVT demonstrated in the bilateral lower extremity.
== END 2023-01-21 13:32 | disposition home or self-care (01) ==
LOC: HO.US 13:31
PROVIDERS: PCP Internal Medicine; Visit Provider Hospitalist
DX: R07.81 Pleurodynia (principal); R60.0 Localized edema
CPT/HCPCS: 93970

== ENCOUNTER → 2023-01-22 13:11 | Outpatient (BNVA) | payer OTHER, SELFPAY | PROVIDERS: PCP Internal Medicine; Visit Provider Internal Medicine | DX: I26.99 Other pulmonary embolism without acute cor pulmonale (principal); Z79.01 Long term (current) use of anticoagulants; Z51.81 Encounter for therapeutic drug level monitoring | CPT/HCPCS: 85610; 99202 ==

== ENCOUNTER → 2023-01-23 13:24 | Outpatient (REF) | payer OTHER, SELFPAY ==
--- NOTE | ~2023-01-23 | XR_ITS ---
EXAMINATION: XR CHEST CLINICAL INFORMATION: I26.99 - Other pulmonary embolism without acute cor pulmonale COMPARISON: Portable upright AP chest 10/24/2020, 2 view chest 08/02/2018, portable upright AP chest 06/12/2018. TECHNIQUE: 2 views of the chest were obtained. FINDINGS: Lungs clear. No hyperinflation, airspace consolidation, or groundglass opacity. No pleural reaction or effusion. The heart is normal in size. The costophrenic sulci are clear. The hilar and mediastinal contours are unremarkable. No acute bony abnormality. XR/XR chest 2V IMPRESSION: Unremarkable examination.
--- NOTE | ~2023-01-23 | NM_ITS ---
EXAMINATION: NM LUNG IMAGE PERFUSION CLINICAL INFORMATION: Other pulmonary embolism without acute cor pulmonale. History of bilateral pulmonary thromboembolism seen on CT of the chest done on 10/25/2022. COMPARISON: CTA of the chest done on 10/25/2022. TECHNIQUE: The patient received 4.0 mCi Tc-99m MAA intravenously and a 6-view perfusion study was performed using gamma scintillation camera. FINDINGS: There are 2 large segmental perfusion defects present at left lung base both anteriorly and posteriorly (best seen on the LPO projection. Additional large segmental perfusion defect is noted at right lung base posteriorly (best seen on the right lateral projection). NM/NM pul perfusion IMPRESSION: Based on modified PIOPED 2 criteria with perfusion only study, pulmonary thromboembolism is present. The findings are concordant with prior CT study done on 10/25/2022.
== END ==
LOC: HO.NUCMED 13:24
PROVIDERS: PCP Internal Medicine; Visit Provider Hospitalist
DX: I26.99 Other pulmonary embolism without acute cor pulmonale (principal)
CPT/HCPCS: 71046; 78580; A9540

== ENCOUNTER → 2023-01-24 11:00 | Outpatient (BNVA) | payer OTHER, SELFPAY | PROVIDERS: PCP Internal Medicine; Visit Provider Internal Medicine | DX: I26.99 Other pulmonary embolism without acute cor pulmonale (principal); Z79.01 Long term (current) use of anticoagulants; Z51.81 Encounter for therapeutic drug level monitoring | CPT/HCPCS: 85610; 99212 ==

== ENCOUNTER → 2023-01-27 11:27 | Outpatient (BNVA) | payer OTHER, SELFPAY | PROVIDERS: PCP Internal Medicine; Visit Provider Internal Medicine | DX: I26.99 Other pulmonary embolism without acute cor pulmonale (principal); Z79.01 Long term (current) use of anticoagulants; Z51.81 Encounter for therapeutic drug level monitoring | CPT/HCPCS: 85610; 99211 ==

== ENCOUNTER 2023-01-27 12:07 | Emergency (ER) | payer OTHER, SELFPAY ==
--- NOTE | ~2023-01-27 | XR_ITS ---
EXAMINATION: XR CHEST CLINICAL INFORMATION: Chest pain shortness of breath COMPARISON: Prior chest January 2023 TECHNIQUE: 2 views of the chest were obtained. FINDINGS: No significant abnormality is noted involving the heart, lungs, mediastinum, bony thorax or soft tissues. XR/XR chest 2V IMPRESSION: Unremarkable examination.
--- NOTE | ~2023-01-27 | CT_ITS ---
EXAMINATION: CT ANGIOGRAM OF THE CHEST WITH AND WITHOUT CONTRAST (CT PULMONARY ANGIOGRAM FOR PE) CLINICAL INFORMATION: Reason for Exam hx of PE COMPARISON: None available. TECHNIQUE: Prior to contrast administration, noncontrast localization images were obtained. Subsequently, multidetector volumetric imaging was performed from the thoracic inlet to below the diaphragms following the administration of 80 mL Omnipaque 350 intravenous contrast. No contrast reaction reported Sagittal, coronal, and MIP oblique sagittal reformatted images were obtained on the CT workstation, uploaded to PACS, and reviewed. This CT examination was performed using dose optimization techniques as appropriate, variously including the following: *Automated exposure control *Adjustment of mA and/or kV according to patient size (this includes techniques or standardized protocols for targeted exams where dose is matched to indication/reason for exam; i.e. extremities or head) *Use of iterative reconstruction technique Total exam dose-length product 326 mGy-cm FINDINGS: QUALITY OF STUDY/CONTRAST BOLUS: Satisfactory. PULMONARY ARTERIES: No pulmonary emboli. THORACIC AORTA: No aneurysm. LUNG: The lungs are well-expanded and clear of acute pneumonic process. There is patchy atelectasis or residual infiltrate from previous exam. There is underlying small left pleural effusion. Rest of the lungs are expanded and clear. No pulmonary nodule, mass or groundglass density seen. PLEURA: Small right pleural effusion seen. No pleural calcification or pleural thickening. MEDIASTINUM: There is a filling defect in the left lower lobe pulmonary artery. Basal segment Heterogeneous flow is seen in the right lower lobe posterior basal segment There are multiple left hilar lymph nodes. Heart size and the great vessels are normal caliber. No pericardial effusion seen. Central trachea and the bronchi widely patent. The entire thyroid lobes are not visualized. No evidence of septal bowing or right heart strain. CORONARY ARTERY CALCIFICATION: None visualized on this study. CHEST WALL/AXILLA: No axillary or internal mammary lymphadenopathy. OSSEOUS STRUCTURES: No aggressive lytic or sclerotic process seen. There is mild ventral spondylosis mid and lower dorsal spine. No aggressive lytic or sclerotic process seen. UPPER ABDOMEN: Visualized liver is diffusely attenuated. No focal lesion seen. Spleen and bilateral adrenal glands unremarkable. No reflux of contrast into the hepatic veins to suggest elevated right heart pressures. Suspect small hiatal hernia. CT/CT angio chest PE protocol IMPRESSION: There is a left lower lobe PE. Heterogeneous flow with likely small residual filling defects in the right lower lobe pulmonary artery. No evidence of aortic aneurysm or dissection. Findings are concordant with a CT scan 01/23/2023. The was also visualized on previous CT chest exam 10/25/2022. This could be a chronic PE on the present CT. Left lower lobe patchy resolving infiltrate or atelectasis with small left pleural effusion and reactive left hilar lymph nodes. VTE: positive
--- NOTE | 2023-01-27 12:09 | ECG_ITS ---
Test Reason : chest pain Blood Pressure : / mmHG Vent. Rate : 092 BPM Atrial Rate : 092 BPM P-R Int : 158 ms QRS Dur : 092 ms QT Int : 376 ms P-R-T Axes : 040 -11 000 degrees QTc Int : 464 ms Normal sinus rhythm Possible Left atrial enlargement Borderline ECG When compared with ECG of 25-OCT-2022 18:25, No significant change was found Referred By: Generic ED Physician Electronically Signed By:RENATE KERR
--- NOTE | 2023-01-27 12:11 | ED_ITS ---
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 on Coumadin for last 2 week after failed Eliquis treatment as outpatient was seen by epic kaleidoscope analyst on 01/09 for continued shortness of breath and dyspnea on exertion had a V/Q scan done on 01/23 which still showed bilateral large segmental defect consistent with the previous CT scan done on 10/31 patient INR was 2.4 today woke up normally at 07:00 at 10:00 noticed all a sudden sharp pain the left chest radiating to the back increases on deep inspiration patient never had similar feeling in the past feels short of breath but saturating 99% at room air patient feels this pain is new and unable to take a deep breath patient has venous Doppler of lower extremity on 01/23 was negative Related Data Home Medications Medication Instructions Recorded Confirmed atorvastatin 20 mg tablet 20 mg PO BEDTIME 09/14/20 01/27/23 glimepiride 4 mg tablet 4 mg PO BEDTIME 09/14/20 01/27/23 sitagliptin phos 50 mg-metformin 1 tab PO BEDTIME 02/21/21 01/27/23 ER 1,000 mg tablet,extend rel 24h mp (Janumet XR) blood sugar diagnostic (FreeStyle #10 ea 02/26/22 01/27/23 Lite Strips) cyanocobalamin (vitamin B-12) 1,000 mcg PO BEDTIME 08/16/22 01/27/23 1,000 mcg tablet levothyroxine 50 mcg tablet 50 mcg PO BEDTIME 08/16/22 01/27/23 valsartan 320 1 tab PO BEDTIME 08/16/22 01/27/23 mg-hydrochlorothiazide 25 mg tablet ferrous sulfate 325 mg (65 mg 325 mg PO MOFR@2100 10/25/22 01/27/23 iron) tablet ibuprofen 800 mg tablet 800 mg PO Q8H PRN Pain (Scale 10/25/22 01/27/23 Score 4-6) Previous Rx's Medication Instructions Recorded Proventil HFA 90 mcg/actuation 2 inh inhalation Q6H PRN shortness 10/25/22 aerosol inhaler (albuterol sulfate) of breath or wheezing 30 days #6.7 grams warfarin 5 mg tablet 5 mg PO DAILY 30 days #30 tabs 01/14/23 Allergies Allergy/AdvReac Type Severity Reaction Status Date / Time lisinopril [LISINOPRIL] Allergy Severe ANGIOEDEMA Verified 01/27/23 11:30 dapagliflozin [From FARXIGA] Allergy Intermediate HIVES Verified 01/27/23 11:30 liraglutide [From VICTOZA] Allergy Intermediate RASH Verified 01/27/23 11:30 metformin [METFORMIN] Allergy Intermediate GI UPSET Verified 01/27/23 11:30 erythromycin base Allergy Unknown UNKNOWN Verified 01/27/23 11:30 [ERYTHROMYCIN BASE] amitriptyline [AMITRIPTYLINE] AdvReac Intermediate DRUGGED Verified 01/27/23 11:30 FEELING Review of Systems Review of Systems: Yes all other systems are reviewed and are negative [facility] Past Medical History Medical History Anemia Anxiety Chronic headaches Diabetes type 2, controlled Dyspareunia in female Dyspnea Dyspnea on exertion Family history of deep venous thrombosis History of COVID-19 (~2020) History of pulmonary embolus (PE) (~2020) HTN (hypertension) Hyperlipidemia Hypothyroid Lower extremity edema Morbid obesity Multinodular thyroid Obstructive sleep apnea Pleuritic chest pain Pulmonary emboli Surgical History History of carpal tunnel surgery History of ERCP History of foot surgery History of laparoscopic cholecystectomy History of surgery History of surgery on right wrist History of tubal ligation Family History Family History Father Myocardial infarction COPD (chronic obstructive pulmonary disease) Mother COPD (chronic obstructive pulmonary disease) Brother Colitis Social History Social History Housing: House Alcohol intake: former (socially) Patient Tobacco Use Status: Never used Tobacco Smoked in Last 30 Days: No Use of substances other than those prescribed or required for medical reasons: No Advance Directives: No Advance Directives Information Provided: Yes Patient : Yes service: No Current occupational status: employed 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 Oriented X3. No acute distress. Eyes: PERRLA, No Nystagmus ENT: Pharynx normal. Oral Mucosa moist Neck: Normal inspection. Neck supple. CVS: Normal heart rate and rhythm. Pulses normal. Respiratory: No respiratory distress. Equal air entry bilateral, no wheezing/rales/rhonchi Abdomen: Soft and nontender. Bowel sounds are present, no mass palpable, no CVA tenderness Skin: Skin warm and dry. Normal skin color. Normal skin turgor. Extremities: No lower extremity edema. No calf tenderness Neuro: Oriented X 3. No motor deficit. Course Course Course Narrative: This is a rapid medical exam. Deferred additional HPI, ROS, PE to primary provider. 47 yr female with history of DM, PE on coumadin, HTN, HLD, hypothyroidism here with shortness of breath, chest pain/back worsened with breathing. Patient reports had VQ scan last week which showed continued PE. Will obtain labs, CXR, EKG VSS Medications Administered Discontinued Medications Generic Name Dose Route Start Last Admin Trade Name Freq PRN Reason Stop Dose Admin Acetaminophen 650 mg 01/27/23 18:11 01/27/23 18:27 Acetaminophen 325 Mg Tablet PO 01/27/23 18:12 650 mg ONCE ONE Administration Iohexol 100 ml 01/27/23 18:22 01/27/23 18:23 Iohexol 350 Mg/Ml 100 Ml Infus..Btl IV 01/27/23 18:23 75 ml ONCE ONE Administration Medical Decision Making Medical Decision Making [facility] Narrative: Patient with sharp pain in the left chest likely from the previous pulmonary emboli patient feels the pain is new and stronger and never had this before. Patient is on Coumadin with therapeutic INR we will do CTA chest to rule out new PE in case patient has more burden of PE may need to be on Lovenox CT chest negative for PE discharge patient home likely the cause of the pain is pleurisy Lab Data [facility] Lab Attestation statement: I reviewed the patient's lab results. 01/27/23 12:36 01/27/23 12:36 Labs: Lab Results 01/27/23 01/27/23 01/27/23 Range/Units 12:36 12:36 12:36 WBC 9.6 (4.8-10.8) X10*3/uL RBC 4.74 (4.20-5.50) X10*6/uL Hgb 11.3 L (12.0-16.0) g/dl Hct 36.0 L (37.0-47.0) % MCV 75.9 L (80.0-98.0) fL MCH 23.8 L (27.0-33.0) pg MCHC 31.4 (31.0-35.0) g/dl RDW 16.2 H (11.0-16.0) % Plt Count 198 D (160-400) X10*3/uL MPV 11.2 (9.4-12.3) fL Immature Gran % (Auto) 0.3 (0.0-0.4) % Neut % (Auto) 76.3 H (45-73) % Lymph % (Auto) 12.4 L (20-40) % [place] % (Auto) 9.1 (2-11) % Eos % (Auto) 1.2 (0-4) % Baso % (Auto) 0.7 (0-2) % Lymph # (Auto) 1.2 (1.2-4.9) X10*3/uL [place] # (Auto) 0.9 (0.1-1.2) X10*3/uL Eos # (Auto) 0.1 (0.0-0.4) X10*3/uL Baso # (Auto) 0.1 (0.0-0.2) X10*3/uL Abs Immat Gran (auto) 0.03 (0.00-0.03) X10*3/uL Absolute Neuts (auto) 7.3 (2.0-8.3) x10*3/uL Absolute Nucleated RBC 0.000 (0.0-0.012) X10*3/uL Nucleated RBC % (auto) 0.0 (0.0-0.2) /100WBC PT 28.4 H (10.0-13.1) SEC INR 2.4 H (0.9-1.1) Sodium 139 (135-145) mmol/L Potassium 3.5 (3.3-5.1) mmol/L Chloride 101 (96-108) mmol/L Carbon Dioxide 25 (22-29) mmol/L Anion Gap 17 (12-20) BUN 16 (9-16) mg/dL Creatinine 1.07 (0.5-1.4) mg/dL Estim Creat Clear Calc 91.8 Estimated GFR 55 Random Glucose 187 H (60-115) mg/dL Calcium 8.8 (8.4-10.2) mg/dL Total Bilirubin 0.6 (0.0-1.0) mg/dL Direct Bilirubin 0.2 (0.0-0.5) mg/dL AST 18 (5-31) U/L ALT 17 (0-31) U/L Alkaline Phosphatase 83 (39-117) U/L Troponin I High Sens (<3.5-17.0) ng/L Total Protein 6.7 (6.5-8.0) g/dL Albumin 3.9 (3.5-5.0) g/dL 01/27/23 Range/Units 12:36 WBC (4.8-10.8) X10*3/uL RBC (4.20-5.50) X10*6/uL Hgb (12.0-16.0) g/dl Hct (37.0-47.0) % MCV (80.0-98.0) fL MCH (27.0-33.0) pg MCHC (31.0-35.0) g/dl RDW (11.0-16.0) % Plt Count (160-400) X10*3/uL MPV (9.4-12.3) fL Immature Gran % (Auto) (0.0-0.4) % Neut % (Auto) (45-73) % Lymph % (Auto) (20-40) % [place] % (Auto) (2-11) % Eos % (Auto) (0-4) % Baso % (Auto) (0-2) % Lymph # (Auto) (1.2-4.9) X10*3/uL [place] # (Auto) (0.1-1.2) X10*3/uL Eos # (Auto) (0.0-0.4) X10*3/uL Baso # (Auto) (0.0-0.2) X10*3/uL Abs Immat Gran (auto) (0.00-0.03) X10*3/uL Absolute Neuts (auto) (2.0-8.3) x10*3/uL Absolute Nucleated RBC (0.0-0.012) X10*3/uL Nucleated RBC % (auto) (0.0-0.2) /100WBC PT (10.0-13.1) SEC INR (0.9-1.1) Sodium (135-145) mmol/L Potassium (3.3-5.1) mmol/L Chloride (96-108) mmol/L Carbon Dioxide (22-29) mmol/L Anion Gap (12-20) BUN (9-16) mg/dL Creatinine (0.5-1.4) mg/dL Estim Creat Clear Calc Estimated GFR Random Glucose (60-115) mg/dL Calcium (8.4-10.2) mg/dL Total Bilirubin (0.0-1.0) mg/dL Direct Bilirubin (0.0-0.5) mg/dL AST (5-31) U/L ALT (0-31) U/L Alkaline Phosphatase (39-117) U/L Troponin I High Sens 3.5 (<3.5-17.0) ng/L Total Protein (6.5-8.0) g/dL Albumin (3.5-5.0) g/dL Discharge Plan Discharge Clinical Impression: Pleuritic chest pain Patient Disposition: Home, Self-Care Instructions: Pleurisy (ED) Additional Instructions: Take tylenol for pain CT scan of the chest negative for any acute blood clot Prescriptions: No Action albuterol sulfate [Proventil HFA] 90 mcg/actuation HFA aerosol inhaler 2 inh inhalation Q6H PRN (Reason: shortness of breath or wheezing) 30 Days Qty: 6.7 12RF warfarin 5 mg tablet 5 mg PO DAILY 30 Days Qty: 30 6RF Protocol: Dose Management Condition: Friday Dose/Route: 5 mg Instruction: 1 x 5 mg tablet Condition: Friday Dose/Route: 5 mg Instruction: 1 x 5 mg tablet Condition: Friday Dose/Route: 5 mg Instruction: 1 x 5 mg tablet Condition: Friday Dose/Route: 5 mg Instruction: 1 x 5 mg tablet Condition: Dose/Route: 5 mg Instruction: 1 x 5 mg tablet Condition: Friday Dose/Route: 5 mg Instruction: 1 x 5 mg tablet Condition: Friday Dose/Route: 5 mg Instruction: 1 x 5 mg tablet Protocol Text: Adjustment Start Date: Friday01/27/23 INR Value: 2.1 INR Date: 01/27/23 Recheck Date: 01/31/23 Additional Instructions: AVOID [place] TODAY AND TOMORROW ibuprofen 800 mg tablet 800 mg PO Q8H PRN (Reason: Pain (Scale Score 4-6)) Hold Instructions: on anticoagulants atorvastatin 20 mg tablet 20 mg PO BEDTIME glimepiride 4 mg tablet 4 mg PO BEDTIME Janumet XR 50-1,000 mg tablet, ER multiphase 24 hr 1 tab PO BEDTIME (DME) FreeStyle Lite Strips Strip See Rx Instructions Not Applicable BID Qty: 10 Rx Instructions: As directed levothyroxine 50 mcg tablet 50 mcg PO BEDTIME cyanocobalamin (vitamin B-12) 1,000 mcg tablet 1,000 mcg PO BEDTIME valsartan-hydrochlorothiazide 320-25 mg tablet 1 tab PO BEDTIME ferrous sulfate 325 mg (65 mg iron) tablet 325 mg PO MOFR@2100 Interventions: ED Discharge Assessment Last Done: 01/27/23 19:46 Discharge Date/Time: 01/27/23 20:05
[2023-01-27 12:12] VITALS: BP 144/80; PULSE 80; RESP 20; TEMP 37.1; O2SAT 97; BMI 51.6
[2023-01-27 12:53] LABS: MANUAL DIFF FLAG NO
[2023-01-27 12:54] LABS: Basophils Absolute Auto 0.1 X10*3/uL (0.0-0.2); Basophils Percent Auto 0.7 % (0-2); Eosinophils Absolute Auto 0.1 X10*3/uL (0.0-0.4); Eosinophils Percent Auto 1.2 % (0-4); Hemoglobin 11.3 g/dl (12.0-16.0); Imm Gran Abs Auto 0.03 X10*3/uL (0.00-0.03); Imm Gran Pct Auto 0.3 % (0.0-0.4); Lymphocytes Absolute Auto 1.2 X10*3/uL (1.2-4.9); Lymphocytes Percent Auto 12.4 % (20-40); Mean Corpuscular HGB Conc 31.4 g/dl (31.0-35.0); Mean Corpuscular Hemoglobin 23.8 pg (27.0-33.0); Mean Corpuscular Volume 75.9 fL (80.0-98.0); Mean Platelet Volume 11.2 fL (9.4-12.3); Monocytes Absolute Auto 0.9 X10*3/uL (0.1-1.2); Monocytes Percent Auto 9.1 % (2-11); Neutrophils Absolute Auto 7.3 x10*3/uL (2.0-8.3); Neutrophils Percent Auto 76.3 % (45-73); Platelet Count 198 X10*3/uL (160-400); Red Blood Count 4.74 X10*6/uL (4.20-5.50); Red Cell Distribution Width 16.2 % (11.0-16.0); White Blood Count 9.6 X10*3/uL (4.8-10.8)
[2023-01-27 13:01] LABS: INTERNATIONAL NORM RATIO 2.4 (0.9-1.1); Prothrombin Time 28.4 SEC (10.0-13.1)
[2023-01-27 13:10] LABS: Alanine Aminotransferase 17 U/L (0-31); Albumin Level 3.9 g/dL (3.5-5.0); Alkaline Phosphatase 83 U/L (39-117); Anion Gap 17 (12-20); Aspartate Amino Transferase 18 U/L (5-31); Bilirubin Direct 0.2 mg/dL (0.0-0.5); Bilirubin Total 0.6 mg/dL (0.0-1.0); Blood Urea Nitrogen 16 mg/dL (9-16); Calcium 8.8 mg/dL (8.4-10.2); Carbon Dioxide 25 mmol/L (22-29); Chloride 101 mmol/L (96-108); Creatinine Clr Calc Pharmacy 91.8; Estimated Glomerular Filt Rate 55; Glucose Random 187 mg/dL (60-115); Potassium 3.5 mmol/L (3.3-5.1); Sodium 139 mmol/L (135-145); Total Protein 6.7 g/dL (6.5-8.0)
[2023-01-27 13:16] LABS: Troponin-I High Sensitivity 3.5 ng/L (<3.5-17.0)
[2023-01-27 17:33] VITALS: BP 139/76; PULSE 90; RESP 18; TEMP 36.9
[2023-01-27] MEDS: iohexoL 350 MG/ML 100 ML INFUS..BTL IV (18:23)
[2023-01-27] MEDS: Acetaminophen 325 MG TABLET 650 MG PO (18:27)
[2023-01-27 18:53] VITALS: BP 129/60; PULSE 97; RESP 18; TEMP 36.9; O2SAT 98
--- NOTE | 2023-01-27 19:00 | PC.NURSE ---
Assumed care of pt in room ED 18 from [place] about pts present condition, the reason for pt coming into the ED and what the care plan has been in the ED during this visit. Pt at moment continues to have SOB when taking inspirations, otherwise states she feels better than when she arrived to the ED . Pt continues on cardiac monitoring, displaying NSR. Pt also has stable V/s at the moment. Pt is awaiting dispostion.
== END 2023-01-27 20:05 | disposition home or self-care (01) ==
PROVIDERS: Nurse Practitioner Family; Emergency Provider Internal Medicine; PCP Internal Medicine
DX: R07.89 Other chest pain (principal); R06.02 Shortness of breath; Z86.711 Personal history of pulmonary embolism
CPT/HCPCS: 36415; 71046; 71275; 80048; 80076; 84484; 85025; 85610; 93005; 99284; 99285; Q9967

== ENCOUNTER → 2023-01-31 11:16 | Outpatient (BNVA) | payer OTHER, SELFPAY | PROVIDERS: PCP Internal Medicine; Visit Provider Internal Medicine | DX: I26.99 Other pulmonary embolism without acute cor pulmonale (principal); Z79.01 Long term (current) use of anticoagulants; Z51.81 Encounter for therapeutic drug level monitoring | CPT/HCPCS: 85610; 99211 ==

== ENCOUNTER → 2023-02-06 09:33 | Outpatient (BNVA) | payer OTHER, SELFPAY | PROVIDERS: PCP Internal Medicine; Visit Provider Internal Medicine | DX: I26.99 Other pulmonary embolism without acute cor pulmonale (principal); I74.9 Embolism and thrombosis of unspecified artery; R06.00 Dyspnea, unspecified; R60.0 Localized edema; R79.1 Abnormal coagulation profile; G47.33 Obstructive sleep apnea (adult) (pediatric); E04.2 Nontoxic multinodular goiter; H53.8 Other visual disturbances; Z79.01 Long term (current) use of anticoagulants; Z51.81 Encounter for therapeutic drug level monitoring | CPT/HCPCS: 36415; 85610; 99212 ==

== ENCOUNTER 2023-02-06 10:42 | Emergency (ER) | payer OTHER, SELFPAY ==
--- NOTE | ~2023-02-06 | XR_ITS ---
EXAMINATION: XR CHEST CLINICAL INFORMATION: Leukocytosis. COMPARISON: 01/27/2023 chest radiographs. TECHNIQUE: 2 views of the chest were obtained. FINDINGS: No significant abnormality is noted involving the heart, lungs, mediastinum, bony thorax or soft tissues. XR/XR chest 2V IMPRESSION: No acute cardiopulmonary process.
--- NOTE | ~2023-02-06 | CT_ITS ---
EXAMINATION: CT HEAD WITHOUT CONTRAST CLINICAL INFORMATION: Headache, vision changes. On Coumadin. COMPARISON: 07/06/2015 TECHNIQUE: Contiguous axial imaging was performed from the skull base to vertex without intravenous contrast. This CT examination was performed using dose optimization techniques as appropriate, variously including the following: * Automated exposure control * Adjustment of mA and/or kV according to patient size (this includes techniques or standardized protocols for targeted exams where dose is matched to indication/reason for exam; i.e. extremities or head) Use of iterative reconstruction technique DLP: 678 mGy-cm. FINDINGS: There is no evidence of acute intracranial hemorrhage or territorial infarction. No abnormal mass effect or midline shift is seen. Briceño to white matter differentiation is well preserved. No extra-axial fluid collections are identified. No hydrocephalus. No significant volume loss. There is no abnormal attenuation within the brain parenchyma. Empty sella noted. The osseous structures and soft tissues are normal. The mastoid air cells and visualized portions of the paranasal sinuses are well aerated. CT/CT head/brain wo IV con IMPRESSION: No acute intracranial pathology.
--- NOTE | 2023-02-06 11:42 | ED.GENADULT ---
HPI - General Adult General Chief complaint: General Medical Stated complaint: dizzy blurred vision headache Time Seen by Provider: 02/06/23 14:50 Source: patient Mode of arrival: ambulatory Limitations: no limitations History of Present Illness HPI narrative: 47-year-old female with history of factor 5 Leiden, chronic respiratory failure on 2 L of oxygen, obesity, diabetes, recurrent PEs, recently changed from Eliquis to Coumadin who presents to the ER from the Coumadin clinic for evaluation of supratherapeutic INR, associated with headache and blurred vision for the last 4 days. Patient states on Friday of this week she noticed blurred vision when she was driving. She states she could not read the letter ring on the signs or make out the features of people. She states it has been fairly constant throughout this week. She states it is associated with headaches. She denies any numbness, weakness, gait instability, dizziness. She states her blurred vision may be getting slightly better but is still noticeable. She does not wear contacts. She wears glasses to read only. She reports today she has headache on the left side of her head and behind the left eye. Otherwise there is no eye pain or pressure. She states 1 week ago she hit the side of her head against the car when she was getting into it. No loss of consciousness. She said she did not think much of it at the time. complaint: Supratherapeutic INR, headache, blurred vision Onset (ago): day(s) (4) Location: head Radiation: non-radiation Severity: moderate Severity scale (1-10): 6 Quality: aching Pain Consistency: constant Relieving factors: none Exacerbating factors: none Associated symptoms: other (Blurred vision and headache) Treatments prior to arrival: none Related Data Home Medications Medication Instructions Recorded Confirmed atorvastatin 20 mg tablet 20 mg PO BEDTIME 09/14/20 02/06/23 glimepiride 4 mg tablet 4 mg PO BEDTIME 09/14/20 02/06/23 sitagliptin phos 50 mg-metformin 1 tab PO BEDTIME 02/21/21 02/06/23 ER 1,000 mg tablet,extend rel 24h mp (Janumet XR) blood sugar diagnostic (FreeStyle #10 ea 02/26/22 02/06/23 Lite Strips) cyanocobalamin (vitamin B-12) 1,000 mcg PO BEDTIME 08/16/22 02/06/23 1,000 mcg tablet levothyroxine 50 mcg tablet 50 mcg PO BEDTIME 08/16/22 02/06/23 valsartan 320 1 tab PO BEDTIME 08/16/22 02/06/23 mg-hydrochlorothiazide 25 mg tablet ferrous sulfate 325 mg (65 mg 325 mg PO MOFR@2100 10/25/22 02/06/23 iron) tablet albuterol sulfate 2.5 mg/3 mL 2.5 mg inhalation Q4H PRN 01/31/23 02/06/23 (0.083 %) solution for nebulization Previous Rx's Medication Instructions Recorded Proventil HFA 90 mcg/actuation 2 inh inhalation Q6H PRN shortness 10/25/22 aerosol inhaler (albuterol sulfate) of breath or wheezing 30 days #6.7 grams warfarin 5 mg tablet 5 mg PO DAILY 30 days #30 tabs 01/14/23 Allergies Allergy/AdvReac Type Severity Reaction Status Date / Time lisinopril [LISINOPRIL] Allergy Severe ANGIOEDEMA Verified 02/06/23 11:49 dapagliflozin [From FARXIGA] Allergy Intermediate HIVES Verified 02/06/23 11:49 liraglutide [From VICTOZA] Allergy Intermediate RASH Verified 02/06/23 11:49 metformin [METFORMIN] Allergy Intermediate GI UPSET Verified 02/06/23 11:49 erythromycin base Allergy Unknown UNKNOWN Verified 02/06/23 11:49 [ERYTHROMYCIN BASE] amitriptyline [AMITRIPTYLINE] AdvReac Intermediate DRUGGED Verified 02/06/23 11:49 FEELING Review of Systems Review of Systems: Yes all other systems are reviewed and are negative [facility] Past Medical History Medical History Anemia Anxiety Chronic headaches Diabetes type 2, controlled Dyspareunia in female Dyspnea Dyspnea on exertion Family history of deep venous thrombosis History of COVID-19 (~2020) History of pulmonary embolus (PE) (~2020) HTN (hypertension) Hyperlipidemia Hypothyroid Lower extremity edema Morbid obesity Multinodular thyroid Obstructive sleep apnea Pleuritic chest pain Pulmonary emboli Surgical History History of carpal tunnel surgery History of ERCP History of foot surgery History of laparoscopic cholecystectomy History of surgery History of surgery on right wrist History of tubal ligation Family History Family History Father Myocardial infarction COPD (chronic obstructive pulmonary disease) Mother COPD (chronic obstructive pulmonary disease) Brother Colitis Social History Social History Housing: House Alcohol intake: former (socially) Patient Tobacco Use Status: Never used Tobacco Smoked in Last 30 Days: No Use of substances other than those prescribed or required for medical reasons: No service: No Current occupational status: employed 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 Oriented X3. No acute distress. Head: normocephalic, atraumatic. Eyes: Pupils equal, round and reactive to light. EOMI, no nystagmus ENT: Pharynx normal. No tonsillar swelling or exudate. Neck: Normal inspection. Neck supple. CVS: Normal heart rate and rhythm. Pulses normal. Respiratory: No respiratory distress. Breath sounds normal. Abdomen: Soft and nontender. +BS x4 Skin: Skin warm and dry. Normal skin color. Normal skin turgor. No rashes. Extremities: No lower extremity edema. No joint swelling. Neuro/psych: Oriented X 3. No motor deficit. No sensory deficit. CN II-XII intact. Normal speech and cognition. Course Course Course Narrative: This is an RME: Additional HPI, ROS, PE not included below will be deferred to primary provider. This is a 29-hity[age]-female, ?history of history of PE?on coumadin on 2L O2, essential hypertension, yug-hvycnlq-pqloyprrd diabetes mellitus, hypothyroidism, mixed hyperlipidemia,, ascending for blurred vision and headaches for the last 4 days. Patient also was seen at our Coumadin clinic and was told to come to the emergency department because her Coumadin level was 6.8 today. She recently switched from Eliquis to Coumadin 2 weeks ago and Coumadin levels have been therapeutic up until today. Patient does admit that she ?blacked? her head on (1 week ago), no loss of consciousness. Patient alert and oriented x3. Neurologic deficits on examination. VSS. Plan: Labs, CT head without contrast ordered. - 1220 - received critical lab - INR 7.0. Informed charge nurse regarding this to have patient be sent back to . CT head pending Medications Administered Discontinued Medications Generic Name Dose Route Start Last Admin Trade Name [place] PRN Reason Stop Dose Admin Acetaminophen 975 mg 02/06/23 15:51 02/06/23 16:00 Acetaminophen 325 Mg Tablet PO 02/06/23 15:52 975 mg ONCE ONE Administration Sodium Chloride 1,000 mls @ 999 mls/hr 02/06/23 15:15 02/06/23 16:00 Ns IVCONT 02/06/23 16:15 999 mls/hr .Q1H1M SHABBIR Administration Insulin Human Lispro 10 unit 02/06/23 15:09 02/06/23 15:59 Insulin Lispro 100 Unit/Ml 3 Ml Vial SUBCUT 02/06/23 15:10 10 unit ONCE ONE Administration Medical Decision Making Medical Decision Making MDM Narrative: 47-year-old female with history of factor 5 Leiden, chronic respiratory failure on 2 L of oxygen, obesity, diabetes, recurrent PEs, recently changed from Eliquis to Coumadin who presents to the ER from the Coumadin clinic for evaluation of supratherapeutic INR, associated with headache and blurred vision for the last 4 days after minor head trauma [address] head is normal. No evidence of subarachnoid hemorrhage or intracranial bleed Lab work showing glucose of 350. Her neurologic exam is unremarkable. Visual acuity is pending. This could be the etiology of her blurred vision. Mild LEXUS with BUN/creatinine 41/1.30 (16/10.7 one week ago). Case discussed with Dr. Newman - recommending treating hyperglycemia with insulin and IV fluids, checking urinalysis and chest x-ray to rule out infection. No other signs or symptoms to be concern for posterior stroke, no role for MRI at this time. Differential Diagnosis Differential Diagnoses: The differential diagnosis associated with the presentation includes Subarachnoid hemorrhage, intracranial bleed, Admission/Observation Consideration of admission/observation: Escalation of care including admission/observation considered Lab Data MDM Lab Attestation statement: I reviewed the patient's lab results. Moderate leukocytosis, hyperglycemia, mild LEXUS 02/06/23 12:02 02/06/23 12:02 Labs: Lab Results 02/06/23 02/06/23 02/06/23 Range/Units 12:02 12:02 12:02 WBC 17.2 H (4.8-10.8) X10*3/uL RBC 5.29 (4.20-5.50) X10*6/uL Hgb 12.3 (12.0-16.0) g/dl Hct 39.0 (37.0-47.0) % MCV 73.7 L (80.0-98.0) fL MCH 23.3 L (27.0-33.0) pg MCHC 31.5 (31.0-35.0) g/dl RDW 16.2 H (11.0-16.0) % Plt Count 220 (160-400) X10*3/uL MPV 10.4 (9.4-12.3) fL Immature Gran % (Auto) 1.9 H (0.0-0.4) % Neut % (Auto) 78.3 H (45-73) % Lymph % (Auto) 13.8 L (20-40) % [place] % (Auto) 5.5 (2-11) % Eos % (Auto) 0.2 (0-4) % Baso % (Auto) 0.3 (0-2) % Lymph # (Auto) 2.4 (1.2-4.9) X10*3/uL [place] # (Auto) 0.9 (0.1-1.2) X10*3/uL Eos # (Auto) 0.0 (0.0-0.4) X10*3/uL Baso # (Auto) 0.1 (0.0-0.2) X10*3/uL Abs Immat Gran (auto) 0.32 H (0.00-0.03) X10*3/uL Absolute Neuts (auto) 13.5 H (2.0-8.3) x10*3/uL Absolute Nucleated RBC 0.000 (0.0-0.012) X10*3/uL Nucleated RBC % (auto) 0.0 (0.0-0.2) /100WBC PT 87.5 H (10.0-13.1) SEC INR 7.0 H* (0.9-1.1) APTT 50.4 H D (26.0-36.4) SEC Sodium 134 L (135-145) mmol/L Potassium 4.1 (3.3-5.1) mmol/L Chloride 100 (96-108) mmol/L Carbon Dioxide 22 (22-29) mmol/L Anion Gap 16 (12-20) BUN 41 H (9-16) mg/dL Creatinine 1.30 (0.5-1.4) mg/dL Estim Creat Clear Calc 75.5 Estimated GFR 44 Random Glucose 350 H* (60-115) mg/dL Calcium 9.4 D (8.4-10.2) mg/dL Magnesium 1.7 (1.6-2.6) mg/dL Total Bilirubin 0.4 (0.0-1.0) mg/dL Direct Bilirubin 0.1 (0.0-0.5) mg/dL AST 20 (5-31) U/L ALT 32 H (0-31) U/L Alkaline Phosphatase 107 (39-117) U/L Total Protein 7.0 (6.5-8.0) g/dL Albumin 4.0 (3.5-5.0) g/dL Lipase 29 (8-78) U/L Independent Interpretation I performed an independent interpretation of an: Plain X-Ray and CT Scan Interpretation: CT scan reviewed, no evidence of edema or bleed, agree with radiologist read XR/XR chest 2V IMPRESSION: No acute cardiopulmonary process. Radiology Impression Discussion of test interpretation with radiology: I have reviewed the radiologist's reading. Radiologist Impression: EXAMINATION: CT HEAD WITHOUT CONTRAST CLINICAL INFORMATION: Headache, vision changes. On Coumadin. COMPARISON: 07/06/2015 TECHNIQUE: Contiguous axial imaging was performed from the skull base to vertex without intravenous contrast. This CT examination was performed using dose optimization techniques as appropriate, variously including the following: *? Automated exposure control *? Adjustment of mA and/or kV according to patient size (this includes techniques or standardized protocols for targeted exams where dose is matched to indication/reason for exam; i.e. extremities or head) Use of iterative reconstruction technique DLP: 678 mGy-cm. FINDINGS: There is no evidence of acute intracranial hemorrhage or territorial infarction. No abnormal mass effect or midline shift is seen. Briceño to white matter differentiation is well preserved. No extra-axial fluid collections are identified. No hydrocephalus. No significant volume loss. There is no abnormal attenuation within the brain parenchyma. Empty sella noted. The osseous structures and soft tissues are normal. The mastoid air cells and visualized portions of the paranasal sinuses are well aerated. ? CT/CT head/brain wo IV con IMPRESSION: No acute intracranial pathology. External Record Review External record reviewed: Office record, Outpatient record, Prior outpatient labs and Prior outpatient radiology Prescription Management I considered prescription management with: Other (kcentra) Chronic Conditions Patient?s care impacted by: Other (PE on Coumadin) Critical Care Time Critical Care Time Critical Care Time: Yes Total Critical Care Time: 39 Attestation: I have personally provided critical care time exclusive of time spent on separately billable procedures. Time includes review of lab data, radiology results, discussion with consultants, and monitoring for potential decompensation. Intervention performed as documented. Discharge Plan Discharge Clinical Impression: Supratherapeutic INR, Blurred vision Patient Disposition: Still a Patient Instructions: Blurred Vision (ED), Elevated INR (ED) Additional Instructions: STOP Your Coumadin, get your INR recheck tomorrow For blurred vision is most likely due to elevated glucose. Your chest x-ray today was normal. Recommend stopping your prednisone. This will help bring down your glucose an your white blood cell count. If you develop new or worsening symptoms call 911 or come back to the ER for further evaluation. Prescriptions: No Action albuterol sulfate [Proventil HFA] 90 mcg/actuation HFA aerosol inhaler 2 inh inhalation Q6H PRN (Reason: shortness of breath or wheezing) 30 Days Qty: 6.7 12RF warfarin 5 mg tablet 5 mg PO DAILY 30 Days Qty: 30 6RF Protocol: Dose Management Condition: Friday Dose/Route: 5 mg Instruction: 1 x 5 mg tablet Condition: Friday Dose/Route: 5 mg Instruction: 1 x 5 mg tablet Condition: Friday Dose/Route: 5 mg Instruction: 1 x 5 mg tablet Condition: Friday Dose/Route: 5 mg Instruction: 1 x 5 mg tablet Condition: Dose/Route: 0 mg Instruction: 0 tablets Condition: Friday Dose/Route: 0 mg Instruction: 0 tablets Condition: Friday Dose/Route: 5 mg Instruction: 1 x 5 mg tablet Protocol Text: Adjustment Start Date: 02/06/23 INR Value: Pending INR Date: 02/06/23 Recheck Date: 02/07/23 atorvastatin 20 mg tablet 20 mg PO BEDTIME glimepiride 4 mg tablet 4 mg PO BEDTIME Janumet XR 50-1,000 mg tablet, ER multiphase 24 hr 1 tab PO BEDTIME (DME) FreeStyle Lite Strips Strip See Rx Instructions Not Applicable BID Qty: 10 Rx Instructions: As directed levothyroxine 50 mcg tablet 50 mcg PO BEDTIME cyanocobalamin (vitamin B-12) 1,000 mcg tablet 1,000 mcg PO BEDTIME valsartan-hydrochlorothiazide 320-25 mg tablet 1 tab PO BEDTIME ferrous sulfate 325 mg (65 mg iron) tablet 325 mg PO MOFR@2100 albuterol sulfate 2.5 mg /3 mL (0.083 %) solution for nebulization 2.5 mg inhalation Q4H PRN
[2023-02-06 11:43] VITALS: BP 143/79; PULSE 83; RESP 18; TEMP 36.2; O2SAT 98; BMI 51.6
[2023-02-06 12:08] LABS: MANUAL DIFF FLAG NO
[2023-02-06 12:11] LABS: Basophils Absolute Auto 0.1 X10*3/uL (0.0-0.2); Basophils Percent Auto 0.3 % (0-2); Eosinophils Percent Auto 0.2 % (0-4); Hemoglobin 12.3 g/dl (12.0-16.0); Imm Gran Abs Auto 0.32 X10*3/uL (0.00-0.03); Imm Gran Pct Auto 1.9 % (0.0-0.4); Lymphocytes Absolute Auto 2.4 X10*3/uL (1.2-4.9); Lymphocytes Percent Auto 13.8 % (20-40); Mean Corpuscular HGB Conc 31.5 g/dl (31.0-35.0); Mean Corpuscular Hemoglobin 23.3 pg (27.0-33.0); Mean Corpuscular Volume 73.7 fL (80.0-98.0); Mean Platelet Volume 10.4 fL (9.4-12.3); Monocytes Absolute Auto 0.9 X10*3/uL (0.1-1.2); Monocytes Percent Auto 5.5 % (2-11); Neutrophils Absolute Auto 13.5 x10*3/uL (2.0-8.3); Neutrophils Percent Auto 78.3 % (45-73); Platelet Count 220 X10*3/uL (160-400); Red Blood Count 5.29 X10*6/uL (4.20-5.50); Red Cell Distribution Width 16.2 % (11.0-16.0); White Blood Count 17.2 X10*3/uL (4.8-10.8)
[2023-02-06 12:16] LABS: Prothrombin Time 87.5 SEC (10.0-13.1)
[2023-02-06 12:18] LABS: Partial Thromboplastin Time 50.4 SEC (26.0-36.4)
[2023-02-06 12:42] LABS: Alanine Aminotransferase 32 U/L (0-31); Alkaline Phosphatase 107 U/L (39-117); Anion Gap 16 (12-20); Aspartate Amino Transferase 20 U/L (5-31); Bilirubin Direct 0.1 mg/dL (0.0-0.5); Bilirubin Total 0.4 mg/dL (0.0-1.0); Blood Urea Nitrogen 41 mg/dL (9-16); Calcium 9.4 mg/dL (8.4-10.2); Carbon Dioxide 22 mmol/L (22-29); Chloride 100 mmol/L (96-108); Creatinine Clr Calc Pharmacy 75.5; Estimated Glomerular Filt Rate 44; Glucose Random 350 mg/dL (60-115); Lipase 29 U/L (8-78); Magnesium 1.7 mg/dL (1.6-2.6); Potassium 4.1 mmol/L (3.3-5.1); Sodium 134 mmol/L (135-145)
[2023-02-06 14:53] VITALS: BP 145/84; PULSE 75; RESP 16; TEMP 36.4; O2SAT 97
[2023-02-06] MEDS: Insulin Lispro 100 UNIT/ML 3 ML VIAL 10 UNIT SUBCUT (15:59)
[2023-02-06] MEDS: 0.9 % Sodium Chloride 1,000 ML 999 ML IVCONT (16:00)
[2023-02-06] MEDS: Acetaminophen 325 MG TABLET 975 MG PO (16:00)
--- NOTE | 2023-02-06 16:30 | PC.NURSE ---
#20 IV placed in right ac without any complications
[2023-02-06 17:31] LABS: Glucose, Whole Blood 139 mg/dL (60-115)
[2023-02-06 18:21] VITALS: BP 107/61; PULSE 75; RESP 17; O2SAT 98
== END 2023-02-06 19:23 | disposition still patient (30) ==
PROVIDERS: Physician Assistant Medical; Emergency Provider Emergency Medicine Emergency Medical Services; PCP Internal Medicine
DX: H53.8 Other visual disturbances (principal); R42 Dizziness and giddiness; R51.9 Headache, unspecified; E11.9 Type 2 diabetes mellitus without complications; Z79.899 Other long term (current) drug therapy; Z86.711 Personal history of pulmonary embolism; Z79.01 Long term (current) use of anticoagulants
CPT/HCPCS: 36415; 70450; 71046; 80048; 80076; 82947; 83690; 83735; 85025; 85610; 85730; 99284; 99285

== ENCOUNTER → 2023-02-07 11:11 | Outpatient (BNVA) | payer OTHER, SELFPAY | PROVIDERS: PCP Internal Medicine; Visit Provider Internal Medicine | DX: I26.99 Other pulmonary embolism without acute cor pulmonale (principal); Z79.01 Long term (current) use of anticoagulants; Z51.81 Encounter for therapeutic drug level monitoring | CPT/HCPCS: 85610; 99211 ==

== ENCOUNTER 2023-02-10 09:53 | Outpatient (REF) | payer OTHER, SELFPAY ==
[2023-02-10 10:34] LABS: MANUAL DIFF FLAG NO
[2023-02-10 11:25] LABS: Basophils Absolute Auto 0.1 X10*3/uL (0.0-0.2); Basophils Percent Auto 0.6 % (0-2); Eosinophils Absolute Auto 0.2 X10*3/uL (0.0-0.4); Eosinophils Percent Auto 1.4 % (0-4); Hematocrit 35.8 % (37.0-47.0); Imm Gran Abs Auto 0.06 X10*3/uL (0.00-0.03); Imm Gran Pct Auto 0.5 % (0.0-0.4); Lymphocytes Absolute Auto 2.6 X10*3/uL (1.2-4.9); Lymphocytes Percent Auto 23.9 % (20-40); Mean Corpuscular HGB Conc 30.7 g/dl (31.0-35.0); Mean Corpuscular Hemoglobin 23.6 pg (27.0-33.0); Mean Corpuscular Volume 76.8 fL (80.0-98.0); Mean Platelet Volume 11.7 fL (9.4-12.3); Monocytes Percent Auto 9.3 % (2-11); Neutrophils Absolute Auto 7.1 x10*3/uL (2.0-8.3); Neutrophils Percent Auto 64.3 % (45-73); Platelet Count 190 X10*3/uL (160-400); Red Blood Count 4.66 X10*6/uL (4.20-5.50); Red Cell Distribution Width 16.5 % (11.0-16.0); White Blood Count 11.1 X10*3/uL (4.8-10.8)
[2023-02-10 11:45] LABS: Estimated Average Glucose 246 mg/dL; Hemoglobin A1c % 10.2 %
[2023-02-10 13:10] LABS: Alanine Aminotransferase 29 U/L (0-31); Albumin Level 3.7 g/dL (3.5-5.0); Alkaline Phosphatase 94 U/L (39-117); Anion Gap 15 (12-20); Aspartate Amino Transferase 16 U/L (5-31); Bilirubin Total 0.6 mg/dL (0.0-1.0); Blood Urea Nitrogen 27 mg/dL (9-16); Calcium 8.7 mg/dL (8.4-10.2); Carbon Dioxide 22 mmol/L (22-29); Chloride 102 mmol/L (96-108); Estimated Glomerular Filt Rate 52; Glucose Random 357 mg/dL (60-115); Potassium 3.9 mmol/L (3.3-5.1); Sodium 135 mmol/L (135-145); Thyroid Stimulating Hormone 1.17 uIU/mL (0.32-4.0); Total Protein 6.3 g/dL (6.5-8.0)
== END 2023-02-10 09:54 | disposition home or self-care (01) ==
LOC: HO.LAB 09:53
PROVIDERS: PCP Internal Medicine; Visit Provider Internal Medicine
DX: I26.99 Other pulmonary embolism without acute cor pulmonale (principal); Z51.81 Encounter for therapeutic drug level monitoring; Z79.01 Long term (current) use of anticoagulants; D50.8 Other iron deficiency anemias; E03.8 Other specified hypothyroidism; N93.9 Abnormal uterine and vaginal bleeding, unspecified
CPT/HCPCS: 36415; 80053; 83036; 84443; 85025; 85610; 99211

== ENCOUNTER → 2023-02-13 10:46 | Outpatient (BNVA) | payer OTHER, SELFPAY | PROVIDERS: PCP Internal Medicine; Visit Provider Internal Medicine | DX: I26.99 Other pulmonary embolism without acute cor pulmonale (principal); Z51.81 Encounter for therapeutic drug level monitoring; Z79.01 Long term (current) use of anticoagulants | CPT/HCPCS: 85610; 99211 ==

== ENCOUNTER → 2023-02-17 13:00 | Outpatient (REF) | payer OTHER, SELFPAY ==
--- NOTE | 2023-02-17 13:12 | CA_ITS ---
Transthoracic Echocardiogram Patient (Last, First, Middle): Domonique Bro S Gender: Female Date of : 1975 Age: 47 Procedure Date: 02/17/2023 Procedure Type: Transthoracic Echocardiogram Location: OP Height: 165.1 cm Weight: 138.35 kg BSA: 2.37 m2 Heart Rate: bpm BP: 112 / 78 mmHg Experimental Worker: HAJA Referring MD: Odilon Land MD Exhaust Equipment Operator: Sha Hi MD Symptoms: I27.20 - Pulmonary hypertension, unspecified Study Quality: Technically Difficult ECG Rhythm: Sinus Conclusions: - 1. Technically difficult study with difficult apical views 2. Normal LV systolic function with LVEF of 55-60% with grade 1 diastolic dysfunction 3. Cardiac valvular Dopplers within normal limits 4. No gross pericardial effusion Findings Procedure Information Contrast agent, definity, is being given per protocol without apparent complications. Left Ventricle Normal left ventricular size, thickness, and systolic function. The visually estimated ejection fraction is between 55-60%. Spectral Doppler is indicative of an impaired relaxation filling pattern. E/E prime ratio is <8, consistent with normal filling pressures. Evidence suggests grade I (mild) diastolic dysfunction. Right Ventricle The right ventricle was not well visualized. Atria The left atrium is normal in size. Interatrial shunt cannot be excluded. The right atrium was not well visualized. Aortic Valve The aortic valve was not well visualized. There is mild calcification of the aortic valve. There is no aortic valve stenosis. There is no aortic valve regurgitation. Mitral Valve Normal mitral valve structure and function. There is trace mitral valve regurgitation. There is no mitral valve stenosis. Pulmonic Valve The pulmonic valve was not well visualized. Tricuspid Valve The tricuspid valve was not well visualized. Tricuspid regurgitation envelope is inadequate for calculation of right ventricular systolic pressure. Normal right atrial pressure. Great Vessels All visible segments of the aorta are normal in size. The pulmonary artery was not well visualized. Venous The inferior vena cava is normal in size and collapses greater than 50% with inspiration. Pericardium/Pleural There is no evidence of pericardial effusion. Prior Study Comparison No significant change compared to prior study dated: 06/30/2018. Measurements 2D Linear Measurements IVSd: 0.97 0.6-0.9/0.6-1.0 cm LVIDd: 4.78 3.9-5.3/4.2-5.9 cm LVIDd Index: 2.02 2.4-3.2/2.2-3.1 cm/m2 LVIDs: 3.22 2.0-3.6 cm LVPWd: 0.94 0.7-1.1 cm LA Diam: 3.40 2.7-3.8/3.0-4.0 cm LAIDs Index: 1.43 1.5-2.3 cm/m2 LV Mass: 197.81 67-162/88-224 g LV Mass Index: 83.46 43-95/49-115 g/m2 LVOT Diam: 2.00 3.0+(-)1.3 cm 2D Systolic Function EF 4C: 54.10 >55% EF 2C: 65.20 >55% EF BiP: 58.80 >55% Mitral Valve MV Pk E: 0.78 MV PK A: 0.89 MV Decel Time: 210.00 E/A: 0.90 E'Lateral: 8.81 E'Medial: 6.74 E/E' Med: 11.50 E/E' Lat: 8.80 PHT: 61.00 MVA PHT: 3.61 Decel [place]: 3.70 Aortic Valve AoV Pk Juvenc[place]: 1.39 AoV Mn Juvenc[place]: 1.01 AoV VTI: 0.27 AoV Pk Grad: 8.00 Aov Mn Grad: 5.00 VINI Cont.VTI: 1.88 LVOT LVOT Pk Juven[place]io: 0.89 LVOT Mn [place]: 0.58 LVOT VTI: 0.16 LVOT Pk Grad: 3.00 LVOT Mn Grad: 2.00 LVOT Diam: 2.00 LVOT Area: 3.14 Diastolic Function MV Pk E: 0.78 MV Pk A: 0.89 E/A: 0.90 E'Medial: 6.74 E/E' Med: 11.50 E' Laterial: 8.81 E/E' Lat: 8.80 Right Ventricle TAPSE (mm): 20.90 TVS' [place]venc[place]: 12.70 Great Vessels Aorta Sinus of Valsalva: 3.04 2.0-3.[address] [place]: 2.13 1.7-3.4 cm Ao Asc: 3.20 2.1-3.4 cm Updated in Other Vendor System with Status of Final Sha Hi MD electronically signed on 02/18/2023 11:10:17 AM with status of Final
== END ==
LOC: HO.CARD 13:00
PROVIDERS: PCP Internal Medicine; Visit Provider Hospitalist
DX: I27.20 Pulmonary hypertension, unspecified (principal); I26.99 Other pulmonary embolism without acute cor pulmonale; Z51.81 Encounter for therapeutic drug level monitoring; Z79.01 Long term (current) use of anticoagulants
CPT/HCPCS: 85610; 93306; 99211; Q9957

== ENCOUNTER → 2023-02-20 13:53 | Outpatient (BNVA) | payer OTHER, SELFPAY | PROVIDERS: PCP Internal Medicine; Visit Provider Internal Medicine | DX: I26.99 Other pulmonary embolism without acute cor pulmonale (principal); Z79.01 Long term (current) use of anticoagulants; Z51.81 Encounter for therapeutic drug level monitoring | CPT/HCPCS: 85610; 99212 ==

== ENCOUNTER → 2023-02-26 09:46 | Outpatient (BNVA) | payer OTHER, SELFPAY | PROVIDERS: PCP Internal Medicine; Visit Provider Internal Medicine | DX: I26.99 Other pulmonary embolism without acute cor pulmonale (principal); Z79.01 Long term (current) use of anticoagulants; Z51.81 Encounter for therapeutic drug level monitoring | CPT/HCPCS: 85610; 99211 ==

== ENCOUNTER 2023-02-27 09:00 | Outpatient (REF) | payer OTHER, SELFPAY | END 2023-02-27 09:01 | disposition home or self-care (01) | LOC: HO.US 09:00 | PROVIDERS: PCP Internal Medicine; Visit Provider Internal Medicine | DX: I26.99 Other pulmonary embolism without acute cor pulmonale (principal); E04.2 Nontoxic multinodular goiter; Z51.81 Encounter for therapeutic drug level monitoring; Z79.01 Long term (current) use of anticoagulants | CPT/HCPCS: 85610; 99211 ==

== ENCOUNTER → 2023-03-03 10:06 | Outpatient (BNVA) | payer OTHER, SELFPAY | PROVIDERS: PCP Internal Medicine; Visit Provider Internal Medicine | DX: I26.99 Other pulmonary embolism without acute cor pulmonale (principal); Z51.81 Encounter for therapeutic drug level monitoring; Z79.01 Long term (current) use of anticoagulants | CPT/HCPCS: 85610; 99211 ==

== ENCOUNTER → 2023-03-06 15:01 | Outpatient (BNVA) | payer OTHER, SELFPAY | PROVIDERS: PCP Internal Medicine; Visit Provider Internal Medicine | DX: I26.99 Other pulmonary embolism without acute cor pulmonale (principal); Z79.01 Long term (current) use of anticoagulants; Z51.81 Encounter for therapeutic drug level monitoring | CPT/HCPCS: 85610; 99211 ==

== ENCOUNTER 2023-03-07 13:02 | Outpatient (REF) | payer OTHER, SELFPAY ==
--- NOTE | ~2023-03-07 | US_ITS ---
EXAMINATION: Ultrasound guided thyroid fine-needle aspiration CLINICAL INFORMATION: Thyroid nodules. Nontoxic multinodular goiter COMPARISON: Previous thyroid ultrasound November [address] of the soft tissues of the neck December 2022 TECHNIQUE: Procedure and risks and benefits including bleeding and infection were discussed with the patient and informed consent was obtained. The right neck was prepped and draped in the usual sterile fashion. The skin and soft tissues were anesthetized with 1% lidocaine plain. Using ultrasound guidance and a 25-gauge needle, access to the larger nodule in the midpole was obtained. 2 25-gauge FNA specimens were obtained. Subsequently, again using a 25-gauge needle, access to the smaller nodule in the inferior right lobe was obtained. 2 25-gauge FNA specimens were obtained. FINDINGS: There is a 2.2 x 1.4 x 1.7 cm nodule in the lower pole and 4.2 x 2.3 x 3.2 cm nodule in the midpole that were targeted for fine-needle aspiration. US/US biopsy thyroid IMPRESSION: Fine-needle aspiration of right mid and inferior thyroid nodules.
[2023-03-07] MEDS: Lidocaine HCl 1 % MPF 5 ML VIAL SUBCUT (14:32)
== END 2023-03-07 13:03 | disposition home or self-care (01) ==
LOC: HO.US 13:02
PROVIDERS: PCP Internal Medicine; Visit Provider Internal Medicine
DX: E04.2 Nontoxic multinodular goiter (principal)
CPT/HCPCS: 10005; 88172; 88173; 88305

== ENCOUNTER → 2023-03-07 13:03 | Outpatient (BNV) | payer OTHER, SELFPAY | PROVIDERS: PCP Internal Medicine; Visit Provider Radiology Diagnostic Radiology | DX: E04.2 Nontoxic multinodular goiter (principal) | CPT/HCPCS: 10005; 10006 ==

== ENCOUNTER → 2023-03-13 13:30 | Outpatient (BNVA) | payer OTHER, SELFPAY | PROVIDERS: PCP Internal Medicine; Visit Provider Internal Medicine | DX: I26.99 Other pulmonary embolism without acute cor pulmonale (principal); Z79.01 Long term (current) use of anticoagulants; Z51.81 Encounter for therapeutic drug level monitoring | CPT/HCPCS: 85610; 99211 ==

== ENCOUNTER 2023-03-20 13:31 | Outpatient (AMB) | payer OTHER, SELFPAY ==
[2023-03-20 13:42] LABS: Prothrombin Time Whole Bld POC 26.7 sec (11.1-13.5); ~PT, ~INR - Anti Coag Clinic 2.2 (0.9-1.1)
--- NOTE | 2023-03-20 13:53 | MHC.OFFVISCO ---
Intake Intake Visit Reasons: Anticoagulation Allergies lisinopril [LISINOPRIL] Allergy (Severe, Verified 03/13/23 13:31) ANGIOEDEMA dapagliflozin [From FARXIGA] Allergy (Intermediate, Verified 03/13/23 13:31) HIVES liraglutide [From VICTOZA] Allergy (Intermediate, Verified 03/13/23 13:31) RASH metformin [METFORMIN] Allergy (Intermediate, Verified 03/13/23 13:31) GI UPSET erythromycin base [ERYTHROMYCIN BASE] Allergy (Unknown, Verified 03/13/23 13:31) UNKNOWN amitriptyline [AMITRIPTYLINE] Adverse Reaction (Intermediate, Verified 03/13/23 13:31) DRUGGED FEELING Nursing Note INR: 2.2 in therapeutic range Medications and supplements reviewed- NO CHANGES No changes in health, diet, medications, or supplements, - SHE WOULD LIKE TO ADD GREENS TO HER DIET Denies any signs and symptoms of bleeding or bruising or clotting. Bleeding, bruising, clotting discussed Nutritional guidance given -HAVE A GREEN OVER THE WEEKEND Dose: LAST WEEK WARFARIN DOSE= 25 MG DOSE 5MG X 3 DAYS / 2.5MG X 4 DAYS F/U INR: 1 WK Patient verbalizes understanding of instructions given Anti-Coag Initial Assessment Social Hx Patient Tobacco Use Status: Never used Tobacco alcohol intake: former (socially) Alcohol intake frequency: does not drink Cardiovascular Hx: HTN Lung Disease HX: DVT/PE (pe 2020 and 2022) Endocrine Hx: Thyroid Disease (multinodular thyroid) Musculoskeletal Hx: Arthritis (neck back feet hands knees hips) Blood Disorder Hx: Anemia and Hyperlipidemia GI Hx: Ulcers, Diverticulosis and Hemorrhoids Hx: Other (hx uti as a child) Neurological Hx: Migraines/Headaches and Other (hx concussion as a child) Cancer HX: No Psych. Illness/Depression: Yes Coding Level of Care Code Est Patient Level 1 Diagnoses Current use of anticoagulant therapy Z79.01 Assessment & Plan Assessment & Plan (1) Current use of anticoagulant therapy: Code(s): Z79.01 - half-way (current) use of anticoagulants Category: Medical
== END 2023-03-20 13:56 | disposition home or self-care (01) ==
LOC: HO.ACS 13:31
PROVIDERS: PCP Internal Medicine; Visit Provider Internal Medicine
DX: Z79.01 Long term (current) use of anticoagulants (principal)

== ENCOUNTER → 2023-03-20 13:31 | Outpatient (BNVA) | payer OTHER, SELFPAY | PROVIDERS: PCP Internal Medicine; Visit Provider Internal Medicine | DX: I26.99 Other pulmonary embolism without acute cor pulmonale (principal); Z79.01 Long term (current) use of anticoagulants; Z51.81 Encounter for therapeutic drug level monitoring | CPT/HCPCS: 85610; 99211 ==

== ENCOUNTER 2023-03-24 08:10 | Outpatient (AMB) | payer OTHER, SELFPAY ==
--- NOTE | 2023-03-24 08:11 | A.OFFVIS_ITS ---
Intake Intake Visit Reasons: FNA Results Legal Activity Adjudicator Required: No Allergies lisinopril [LISINOPRIL] Allergy (Severe, Verified 03/24/23 08:26) ANGIOEDEMA dapagliflozin [From FARXIGA] Allergy (Intermediate, Verified 03/24/23 08:26) HIVES liraglutide [From VICTOZA] Allergy (Intermediate, Verified 03/24/23 08:26) RASH metformin [METFORMIN] Allergy (Intermediate, Verified 03/24/23 08:26) GI UPSET erythromycin base [ERYTHROMYCIN BASE] Allergy (Unknown, Verified 03/24/23 08:26) UNKNOWN amitriptyline [AMITRIPTYLINE] Adverse Reaction (Intermediate, Verified 03/24/23 08:26) DRUGGED FEELING Medication List - Last Reconciled 03/24/23 by Faye Cantu, DO acetaminophen ER 650 mg PO Q6H PRN albuterol sulfate 2.5 mg inhalation Q4H PRN atorvastatin 20 mg PO BEDTIME blood sugar diagnostic (FreeStyle Lite Strips) As directed cyanocobalamin (vitamin B-12) 1,000 mcg PO BEDTIME dulaglutide (Trulicity) 0.75 mg subcut QWEEK ferrous sulfate 325 mg PO MOFR@2100 glimepiride 4 mg PO BEDTIME levothyroxine 50 mcg PO BEDTIME metformin ER 500 mg PO BID Proventil HFA 90 mcg/actuation (albuterol sulfate) 2 inhalations inhalation Q6H PRN 30 days NS valsartan-hydrochlorothiazide 320-25 mg 1 tab PO BEDTIME warfarin 5 mg See Protocol PO DAILY 30 days HPI HPI Comments History of Present Illness Details 47 YO Female with a PMHx of factor V leiden with recent PE on chronic AC with eliquis who is seen in F/U for a NTMNG. She was found incidentally on her CT chest to have a multinodular thyroid. Thyroid US was completed and revealed bilateral large thyroid nodules. She was subsequently referred to Endocrinology. She underwent FNA biopsy 03/07/2023 by IR of her Right mid pole 4.2 cm thyroid nodule, with cytology suspicious for hurthle cell neoplasm. She also underwent FNA biopsy of her right lower pole 2.1 cm thyroid nodule, with benign cytology. She presents today to review these results. She does report occasional dysphagia, but denies hoarseness of voice. She denies symptoms of hyper or hypothyroidism. She denies a family history of thyroid cancer. She does have a history of hypothyroidism and takes levothyroxine 50 mcg PO daily. Thyroid US: 11/20/2022 Right Thyroid Lobe: 6.0 x 2.7 x 2.8 cm, volume 23.7 mL. Parenchyma: The gland echotexture is heterogeneous. Thyroid vascularity is increased. Left Thyroid Lobe: 5.7 x 1.3 x 1.3 cm, volume 5.0 mL. Parenchyma: The gland echotexture is heterogeneous. Thyroid vascularity is normal. Isthmus: 0.7 cm in maximum AP dimension. Estimated total number of nodules greater than or equal to 1 cm: 3. 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 Location: Right superior/mid. ?? ? Size: 4.2 x 2.6 x 3.1 cm, volume 17.5 mL. ?? ? Nodule characteristics: ?? ? Composition: Solid (2). ?? ? Echogenicity: Hyperechoic (1). ?? ? Shape: Not taller than wide (0). ?? ? Margins: Smooth (0). ?? ? Echogenic Foci: None (0). ?? ? ACR TI-RADS total points: 3. ?? ? ACR TI-RADS category: 3. 2. Location: Right mid. ?? ? Size: 0.8 x 0.2 x 0.6 cm, volume 0.06 mL. ?? ? Nodule characteristics: ?? ? Composition: Solid (2). ?? ? Echogenicity: Hypoechoic (2). ?? ? Shape: Not taller than wide (0). ?? ? Margins: Smooth (0). ?? ? Echogenic Foci: None (0). ?? ? ACR TI-RADS total points: 4. ?? ? ACR TI-RADS category: 4. 3. Location: Right inferior. ?? ? Size: 2.1 x 1.4 x 1.5 cm, volume 2.2 mL. ?? ? Nodule characteristics: ?? ? Composition: Mixed cystic and solid (1). ?? ? Echogenicity: Cannot be determined (1). ?? ? Shape: Not taller than wide (0). ?? ? Margins: Smooth (0). ?? ? Echogenic Foci: None (0). ?? ? ACR TI-RADS total points: 2. ?? ? ACR TI-RADS category: 2. 4. Location: Left inferior. ?? ? Size: 0.4 x 0.4 x 0.4 cm, volume 0.03 mL. ?? ? Nodule characteristics: ?? ? Composition: Solid (2). ?? ? Echogenicity: Hypoechoic (2). ?? ? Shape: Not taller than wide (0). ?? ? Margins: Smooth (0). ?? ? Echogenic Foci: None (0). ?? ? ACR TI-RADS total points: 4. ?? ? ACR TI-RADS category: 4. 5.? Location: Left inferior. ?? ? Size: 1.1 x 1.1 x 1.2 cm, volume 0.7 mL. ?? ? Nodule characteristics: ?? ? Composition: Solid (2). ?? ? Echogenicity: Hyperechoic (1). ?? ? Shape: Not taller than wide (0). ?? ? Margins: Smooth (0). ?? ? Echogenic Foci: None (0). ?? ? ACR TI-RADS total points: 3. ?? ? ACR TI-RADS category: 3. NODES: No lymphadenopathy is seen in the tissue surrounding the thyroid gland. Labs: Laboratory Tests 07/20/22 10:22 [facility] Medical History Anemia Anxiety Chronic headaches Chronic thromboembolic disease Diabetes type 2, controlled Dyspareunia in female Dyspnea Dyspnea on exertion Family history of deep venous thrombosis History of COVID-19 (~2020) History of pulmonary embolus (PE) (~2020) HTN (hypertension) Hyperlipidemia Hypothyroid Lower extremity edema Morbid obesity Multinodular thyroid Obstructive sleep apnea Pleuritic chest pain Pulmonary emboli Surgical History History of carpal tunnel surgery History of ERCP History of foot surgery History of laparoscopic cholecystectomy History of surgery History of surgery on right wrist History of tubal ligation Family History Father Myocardial infarction COPD (chronic obstructive pulmonary disease) Mother COPD (chronic obstructive pulmonary disease) Brother Colitis Social History Housing: House Alcohol intake: former (socially) Patient Tobacco Use Status: Never used Tobacco service: No Current occupational status: employed 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 Affirma is pending. We did review that affirma lacks sensitivity for hurthle cell neoplasm, and my recommendation at this time is for a total thyroidectomy given that she also has a 1.1 cm L lobe thyroid nodule which was not biopsied. We reviewed that hurthle cell carcinoma can be somewhat more aggressive and invasive than other types of thyroid cancers, and that if the hurthle cells have bypassed the capsul e of the nodule this would be considered a hurthle cell carcinoma. She verbalized understanding. She is in agreement with this plan of care. I will send her referral for a total thyroidectomy to [facility] at this time. All questions were answered. She is in agreement with this plan of care. I spent 20 minutes in reviewing the record, seeing the patient and documenting in the medical record, including 5 minutes on the phone with the Patient. Telehealth Telehealth Location of patient: address on file Patient Identification confirmed using: Name, : Yes Telehealth method: voice only Patient verbally consented to treatment: Yes Patient verbally consented to billing insurance company: Yes Patient informed of any privacy concerns related to visit: Yes Coding Level of Care Code Tele Est Pt Level 3 (20670) Diagnoses Multinodular thyroid E04.2
== END 2023-03-24 15:52 | disposition home or self-care (01) ==
LOC: HO.ENCR 08:10
PROVIDERS: PCP Internal Medicine; Visit Provider Internal Medicine
DX: E04.2 Nontoxic multinodular goiter (principal)
CPT/HCPCS: 99213

== ENCOUNTER → 2023-03-24 08:10 | Outpatient (BNVA) | payer OTHER, SELFPAY | PROVIDERS: PCP Internal Medicine; Visit Provider Internal Medicine ==

== ENCOUNTER 2023-04-01 09:29 | Outpatient (AMB) | payer OTHER, SELFPAY ==
--- NOTE | 2023-04-01 09:43 | MHC.OFFVISCO ---
Intake Intake Visit Reasons: Anticoagulation Allergies lisinopril [LISINOPRIL] Allergy (Severe, Verified 04/01/23 09:39) ANGIOEDEMA dapagliflozin [From FARXIGA] Allergy (Intermediate, Verified 04/01/23 09:39) HIVES liraglutide [From VICTOZA] Allergy (Intermediate, Verified 04/01/23 09:39) RASH metformin [METFORMIN] Allergy (Intermediate, Verified 04/01/23 09:39) GI UPSET erythromycin base [ERYTHROMYCIN BASE] Allergy (Unknown, Verified 04/01/23 09:39) UNKNOWN amitriptyline [AMITRIPTYLINE] Adverse Reaction (Intermediate, Verified 04/01/23 09:39) DRUGGED FEELING Medication List - Last Reconciled 04/01/23 by Linh Mcnulty RN acetaminophen ER 650 mg PO Q6H PRN albuterol sulfate 2.5 mg inhalation Q4H PRN atorvastatin 20 mg PO BEDTIME blood sugar diagnostic (FreeStyle Lite Strips) As directed cyanocobalamin (vitamin B-12) 1,000 mcg PO BEDTIME dulaglutide (Trulicity) 0.75 mg subcut QWEEK ferrous sulfate 325 mg PO MOFR@2100 glimepiride 4 mg PO BEDTIME levothyroxine 50 mcg PO BEDTIME metformin ER 500 mg PO BID Proventil HFA 90 mcg/actuation (albuterol sulfate) 2 inhalations inhalation Q6H PRN 30 days NS valsartan-hydrochlorothiazide 320-25 mg 1 tab PO BEDTIME warfarin 5 mg See Protocol PO DAILY 30 days Nursing Note INR 3.4-? out of therapeutic range Medications and supplements reviewed Patient status: pt on cont oxygen Medications or supplements: isacc d/c by thyroid md- no interaction with warfarin per micromedex Diet: appetite is good Denies any signs and symptoms of bleeding or clotting or unusual bruising Bleeding, bruising, clotting discussed - pt hit lower left arm, states had 'lump' and bruise- enc to call acs or pcp with any concerns regarding bruising area appears to be fading, no edema noted at this time. 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 Anti-Coag Initial Assessment Social Hx Patient Tobacco Use Status: Never used Tobacco alcohol intake: former (socially) Alcohol intake frequency: does not drink Cardiovascular Hx: HTN Lung Disease HX: DVT/PE (pe 2020 and 2022) Endocrine Hx: Thyroid Disease (multinodular thyroid) Musculoskeletal Hx: Arthritis (neck back feet hands knees hips) Blood Disorder Hx: Anemia and Hyperlipidemia GI Hx: Ulcers, Diverticulosis and Hemorrhoids Hx: Other (hx uti as a child) Neurological Hx: Migraines/Headaches and Other (hx concussion as a child) Cancer HX: No Psych. 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
[2023-04-01 09:46] LABS: Prothrombin Time Whole Bld POC 41.2 sec (11.1-13.5); ~PT, ~INR - Anti Coag Clinic 3.4 (0.9-1.1)
== END 2023-04-01 09:55 | disposition home or self-care (01) ==
LOC: HO.ACS 09:29
PROVIDERS: PCP Internal Medicine; Visit Provider Internal Medicine
DX: Z79.01 Long term (current) use of anticoagulants (principal)

== ENCOUNTER → 2023-04-01 09:55 | Outpatient (REF) | payer OTHER, SELFPAY ==
--- NOTE | ~2023-04-01 | NM_ITS ---
PULMONARY PERFUSION ONLY STUDY: CLINICAL INDICATION: History of previous PE. Stable shortness of breath. Suspected chronic pulmonary thromboembolism. PROCEDURE: Following the intravenous administration of 4.0 millicuries technetium 99m MAA, images of the chest were obtained in multiple projections using a gamma scintiphotographic camera. COMPARISON: CTA of the chest done on 01/27/2023 and 10/25/2022 and perfusion only lung scintigraphic done on 01/23/2023. The chest radiograph done today shows bilateral clear lung perry. PERFUSION IMAGES: Previously documented left greater than right bibasilar perfusion defects appear similar to the study dated 01/23/2023. No evidence of any new segmental perfusion defect. NM/NM pul perfusion IMPRESSION: Persistent stable segmental perfusion defects bilaterally (left greater than right), appears similar to the study dated 01/23/2023, consistent with chronic changes. No new sites of perfusion defect. The findings are concordant with prior CTA studies. Based on modified PIOPED 2 criteria, high probability for pulmonary thromboembolism.
--- NOTE | ~2023-04-01 | XR_ITS ---
EXAMINATION: XR CHEST CLINICAL INFORMATION: Embolism and thrombosis. COMPARISON: None available. TECHNIQUE: 2 views of the chest were obtained. FINDINGS: No significant abnormality is noted involving the heart, lungs, mediastinum, bony thorax or soft tissues. XR/XR chest 2V IMPRESSION: Unremarkable chest examination.
== END ==
LOC: HO.NUCMED 09:55
PROVIDERS: PCP Internal Medicine; Visit Provider Hospitalist
DX: I74.9 Embolism and thrombosis of unspecified artery (principal)
CPT/HCPCS: 71046; 78580; 85610; 99211; A9540

== ENCOUNTER 2023-04-11 10:15 | Outpatient (AMB) | payer SELFPAY ==
[2023-04-11 10:22] LABS: Prothrombin Time Whole Bld POC 31.7 sec (11.1-13.5); ~PT, ~INR - Anti Coag Clinic 2.6 (0.9-1.1)
--- NOTE | 2023-04-11 10:24 | MHC.OFFVISCO ---
Intake Intake Visit Reasons: Anticoagulation Allergies lisinopril [LISINOPRIL] Allergy (Severe, Verified 04/11/23 10:16) ANGIOEDEMA dapagliflozin [From FARXIGA] Allergy (Intermediate, Verified 04/11/23 10:16) HIVES liraglutide [From VICTOZA] Allergy (Intermediate, Verified 04/11/23 10:16) RASH metformin [METFORMIN] Allergy (Intermediate, Verified 04/11/23 10:16) GI UPSET erythromycin base [ERYTHROMYCIN BASE] Allergy (Unknown, Verified 04/11/23 10:16) UNKNOWN amitriptyline [AMITRIPTYLINE] Adverse Reaction (Intermediate, Verified 04/11/23 10:16) DRUGGED FEELING Medication List - Last Reconciled 04/11/23 by Francine Tipton RN acetaminophen ER 650 mg PO Q6H PRN albuterol sulfate 2.5 mg inhalation Q4H PRN atorvastatin 20 mg PO BEDTIME blood sugar diagnostic (FreeStyle Lite Strips) As directed cyanocobalamin (vitamin B-12) 1,000 mcg PO BEDTIME ferrous sulfate 325 mg PO MOFR@2100 glimepiride 4 mg PO BEDTIME levothyroxine 50 mcg PO BEDTIME metformin ER 500 mg PO BID Proventil HFA 90 mcg/actuation (albuterol sulfate) 2 inhalations inhalation Q6H PRN 30 days NS valsartan-hydrochlorothiazide 320-25 mg 1 tab PO BEDTIME warfarin 5 mg See Protocol PO DAILY 30 days Nursing Note Amb to ACS wearing cont O2, accomp by young child, feeling, ok, sts nauseous and headache , denies any vomitting Medications and supplements reviewed No other changes in health, diet, medications, or supplements Denies any unusual signs and symptoms of bruising, bleeding Denies any new Chest pain, SOB, or clotting INR: 2.6 in therapeutic range Nutritional guidance given: balance greens and reds in diet Dose: continue usual dosing;5mg x 3 days and 2.5mg x 4 days F/U INR: 2 weeks Patient verbalizes understanding of instructions given with accurate read back/ teach back of dosing, has appt with pulmonary Dr after this appt Anti-Coag Initial Assessment Social Hx Patient Tobacco Use Status: Never used Tobacco alcohol intake: former (socially) Alcohol intake frequency: does not drink Cardiovascular Hx: HTN Lung Disease HX: DVT/PE (pe 2020 and 2022) Endocrine Hx: Thyroid Disease (multinodular thyroid) Musculoskeletal Hx: Arthritis (neck back feet hands knees hips) Blood Disorder Hx: Anemia and Hyperlipidemia GI Hx: Ulcers, Diverticulosis and Hemorrhoids Hx: Other (hx uti as a child) Neurological Hx: Migraines/Headaches and Other (hx concussion as a child) Cancer HX: No Psych. 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
== END 2023-04-11 10:29 | disposition home or self-care (01) ==
LOC: HO.ACS 10:15
PROVIDERS: PCP Internal Medicine; Visit Provider Internal Medicine
DX: Z79.01 Long term (current) use of anticoagulants (principal)

== ENCOUNTER → 2023-04-11 10:15 | Outpatient (BNVA) | payer OTHER, SELFPAY | PROVIDERS: PCP Internal Medicine; Visit Provider Internal Medicine | DX: I26.99 Other pulmonary embolism without acute cor pulmonale (principal); Z51.81 Encounter for therapeutic drug level monitoring; Z79.01 Long term (current) use of anticoagulants | CPT/HCPCS: 85610; 99211; 99212 ==

== ENCOUNTER 2023-04-11 10:32 | Outpatient (AMB) | payer OTHER, SELFPAY ==
[2023-04-11 10:58] VITALS: PULSE 88; O2SAT 96; BMI 50.6
--- NOTE | 2023-04-11 10:58 | MHC.OFFVIS ---
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 Allergies lisinopril [LISINOPRIL] Allergy (Severe, Verified 04/11/23 10:59) ANGIOEDEMA dapagliflozin [From FARXIGA] Allergy (Intermediate, Verified 04/11/23 10:59) HIVES liraglutide [From VICTOZA] Allergy (Intermediate, Verified 04/11/23 10:59) RASH metformin [METFORMIN] Allergy (Intermediate, Verified 04/11/23 10:59) GI UPSET erythromycin base [ERYTHROMYCIN BASE] Allergy (Unknown, Verified 04/11/23 10:59) UNKNOWN amitriptyline [AMITRIPTYLINE] Adverse Reaction (Intermediate, Verified 04/11/23 10:59) DRUGGED FEELING HPI HPI Comments History of Present Illness Details The patient is a 47-year-old woman with a known history of pulmonary emboli currently on Eliquis presenting with worsening dyspnea symptoms. Patient complains of dyspnea on exertion. Moderate severity. denies any wheezing or coughing. The patient does not have any respiratory inhalers at this time. She denies any wheezing although she does have chest tightness. In addition to that the patient does have daytime drowsiness. Her [place] score is elevated 12/24. The patient does have cardiovascular risk factors. Patient needs to undergo home sleep study this time. We did review imaging studies that we have available including a CT scan of the chest angiogram ruling out pulmonary embolism in the spring. the lung parenchyma is also within normal limits which is reassuring. 08/16/2022 the patient is here for a pulmonary follow-up visit. The patient overall has been feeling relatively well. She still has some daytime drowsiness. Her [place] score is elevated 9/24. The patient did have a sleep study done. Appears that she was sleeping the most part on her back and she had a mild degree of sleep apnea with an AHI just above 5. her sleep apnea was less severe when she laid on her sides. Therefore she wants to try positional therapy for now. If she does not improved after positional therapy then can consider CPAP therapy. The patient also continues on the Eliquis. She is tolerating it well. No minor major bleeding noted. she did undergo pulmonary function studies personally by me demonstrating an isolated moderate diffusion impairment. We did talk about potentially chronic thromboembolic disease could result in this presentation. But she is also anemic and that can also result in the diffusing impairment as well. She is currently on iron. 10/25/2022 the patient is here for pulmonary follow-up visit. The patient has been complaining of increasing shortness of breath. Moderate severity. Also complaining of right-sided pleuritic chest pain. She went to the gym yesterday and she got short of breath and also felt dizzy. She did undergo blood work which we reviewed. She has an elevated white count in addition to a left shift suggesting an infectious process. On further questioning she has been coughing more recently. In addition to that she does complaint of that pleuritic discomfort. She did have blood work which we debrided reviewed together. White count is elevated consistent with an infectious process. In addition to that her D-dimer is elevated. On further questioning she is not taking her Eliquis correctly. She is only doing it daily. With her elevated D-dimer in the pleuritic chest pain in a history of previous blood clots the patient needs to get a repeat CT scan of the chest PE protocol. Will request 1 at this time. However, being Friday if the patient develops any worsening symptoms she should go to the ER. 01/09/2023 the patient is here for a pulmonary follow-up visit. The patient still having shortness of breath even after being hospitalized. She did increase her Eliquis medication to twice a day. The patient still has significant shortness of breath with minimal activity moderate severity. She complains of chest discomfort. She is wondering if the Eliquis is working. She did follow-up with her oncologist. It appears that she does have factor 5 Leiden putting her risk for blood clots and also her family. She needs to make sure the family is aware of this had artery disease. We did taken for walking oximetry the patient did desaturate down to 87% with activity and she was also tachycardic to 130. I am concerned that she may have at this point chronic thromboembolic disease. Will go ahead and order a V/Q scan and switch over to Coumadin. If the patient continues to have blood clots even after that will have to consider a referral to [facility]. 02/06/2023 The patient is here for a follow up visit. Switched over to coumadin. But, then ended up with a tooth infection and placed on abx. Started developing headaches and blurry vision. She had her INR check and it was critically high 6.8. She is using the oxygen with good effect. Has an ECHO scheduled for next week. We will plan to repeat her VQ scan in 6-8 weeks, if no better, then will need a referral to [facility] for [place]ED. In the meantime, I did call the ED triage and took her to the ED to assess for an acute bleed for the supra therapeutic INR. 04/11/2023 the patient is here for pulmonary follow-up visit. The patient continues significant dyspnea on exertion. Eofn-iu-cegggthl severity. Has been using her oxygen regularly. She has also been very reassuring to the anticoagulation. She had been on Eliquis and then switched over to Coumadin because of lack of response with an abnormal V/Q scan with persistent defects. Ultimately switched over to Coumadin. She has been on Coumadin now for several months. Her initial V/Q scan after the blood clots was back in mid January 2023 with bilateral defects consistent with bilateral pulmonary emboli. She was switched over then to Coumadin quickly after that. Now on the 01 of April she had a repeat V/Q scan with similar findings suggesting persistent chronic thromboembolic disease. The patient continues on oxygen she has pulmonary hypertension. The patient has evidence of chronic thromboembolic disease. She did point she needs to be referred to [facility] to the chronic thrombolic disease clinic for potential interventions. The biggest issue to is that she recently had a for needle biopsy of a thyroid nodule that was positive for malignancy. she did have a referral to the surgeon for a thyroid resection. But, in view of the ongoing pulmonary vascular disease he 1 it her to be further evaluated and treated in order to minimize risk for surgery. I will make a referral to [facility]. In the meantime I will speak to her medical provider regarding the current issues and in order to be able to prioritize her medical interventions. [facility] Medical History (Updated 04/13/23 @ 22:03 by Odilon Land MD) Anemia Anxiety Chronic headaches Chronic thromboembolic disease Diabetes type 2, controlled Dyspareunia in female Dyspnea Dyspnea on exertion Family history of deep venous thrombosis History of COVID-19 (~2020) History of pulmonary embolus (PE) (~2020) HTN (hypertension) Hypercoagulable state Hyperlipidemia Hypothyroid Lower extremity edema Morbid obesity Multinodular thyroid Obstructive sleep apnea Pleuritic chest pain Pulmonary emboli Thyroid cancer Surgical History History of carpal tunnel surgery History of ERCP History of foot surgery History of laparoscopic cholecystectomy History of surgery History of surgery on right wrist History of tubal ligation Family History Father Myocardial infarction COPD (chronic obstructive pulmonary disease) Mother COPD (chronic obstructive pulmonary disease) Brother Colitis Social History Housing: House Alcohol intake: former (socially) Patient Tobacco Use Status: Never used Tobacco service: No Current occupational status: employed 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 Current occupational exposures/hazards: No Review of Systems Const Denies chills, Reports daytime sleepiness, Reports difficulty sleeping, Denies fever(s), Denies frequent falls, Reports headache(s), Denies night sweats, Reports snoring and Denies weight loss Eyes Reports blurry vision, Reports change in vision and Reports eye pain ENT Reports dizziness, Reports headache(s) and Reports mouth pain Card Reports chest pain, Denies chest pain at rest, Denies chest pain with activity, Denies irregular heart rhythm, Denies claudication, Reports leg edema, Denies palpitations and Reports dyspnea on exertion Resp Denies cough, Reports pain on inspiration, Reports pain with cough, Reports dyspnea on exertion and Reports snoring Musc Reports deformity, Reports arthralgias, Reports joint swelling, Denies limited range of motion and Reports stiffness Neuro Reports dizziness, Denies frequent falls and Reports headache(s) Endo Denies palpitations Physical Exam Vital Signs: Last Vital Signs Pulse 88 04/11/23 10:58 Pulse Ox 96 04/11/23 10:58 Oxygen Delivery Method Room Air 04/11/23 10:58 BMI result Body Mass Index 50.6 Const General: cooperative, healthy appearing, no acute distress and alert Orientation/consciousness: oriented to person, oriented to place and oriented to time Limitations: no limitations HEENT Head: Yes normal to inspection, Yes normocephalic and Yes atraumatic Mouth: moist mucous membranes Eyes Sclerae: sclerae normal Neck Neck: Yes normal visual inspection Chest Chest palpation & inspection: normal inspection of the chest Resp Effort & Inspection: normal respiratory effort and able to speak in complete sentences Auscultation: no wheezes and diminished lung sounds Cardio Jugular venous distension: no JVD Rate: regular rate Rhythm: regular rhythm Heart sounds: S1 normal heart sound present and S2 normal heart sound present GI Inspection: Yes normal to inspection Skin General skin exam: no rashes or lesions noted Neuro General: oriented to person, oriented to place, oriented to time and moves all extremities Gait exam (Neuro): Antalgic gait present Motor exam (neuro): 5/5 motor strength present throughout Extrem General: Yes no clubbing, cyanosis or edema Right lower extremity: knee Details: abnormal to inspection, tenderness Location: of the patella and of the lateral joint line, abnormal ROM, crepitus Location: at the kneww, deformity and warmth; no swelling and no ecchymosis Left lower extremity: knee Details: abnormal to inspection, tenderness, abnormal ROM, crepitus, deformity and warmth; no swelling and no ecchymosis Psych Appearance: grossly normal Mental Status: mental status grossly normal Speech and movement: Normal speech and movement present and Clear speech present Affect: normal affect Attitude: cooperative Thought process: Normal thought process present Thought content: Normal thought content present Insight: Good insight present (Psych) Judgement: Good judgement present (Psych) Results AMB INR Fingerstick AMB INR Fingerstick 2.6 Last Edit by Francine Tipton RN on 04/11/23 10:23 interface failure Results Reviewed Results Reviewed: [address] [address] Nuclear Medicine Report Signed Patient: Domonique Bro MR#: [id number] : 1975 Acct:[id number] Age/Sex: 47 / F ADM Date: 04/01/23 Loc: [facility] Attending Dr: Odilon Land MD Ordering Physician: Odilon Land MD Date of Service: 04/01/23 Procedure(s): NM pul perfusion Accession Number(s): [id number] cc: Odilon Land MD~ PULMONARY PERFUSION ONLY STUDY: CLINICAL INDICATION: History of previous PE. Stable shortness of breath. Suspected chronic pulmonary thromboembolism. PROCEDURE:? Following the intravenous administration of 4.0 millicuries technetium 99m MAA, images of the chest were obtained in multiple projections using a gamma scintiphotographic camera. COMPARISON: CTA of the chest done on 01/27/2023 and 10/25/2022 and perfusion only lung scintigraphic done on 01/23/2023. The chest radiograph done today shows bilateral clear lung perry. PERFUSION IMAGES: Previously documented left greater than right bibasilar perfusion defects appear similar to the study dated 01/23/2023. No evidence of any new segmental perfusion defect. NM/NM pul perfusion IMPRESSION: Persistent stable segmental perfusion defects bilaterally (left greater than right), appears similar to the study dated 01/23/2023, consistent with chronic changes. No new sites of perfusion defect. The findings are concordant with prior CTA studies. Based on modified PIOPED 2 criteria, high probability for pulmonary thromboembolism. Dictated By: Rosalia Montoya MD Signed By: <Electronically signed by Rosalia Montoya MD in OV> 04/01/23 1101 DD/ 1030 TD/TT:? Decorative Greens Cutter: BRIAN Assessment & Plan Assessment & Plan (1) Dyspnea: Code(s): R06.00 - Dyspnea, unspecified (2) SERA (obstructive sleep apnea): Code(s): G47.33 - Obstructive sleep apnea (adult) (pediatric) (3) Bilateral pulmonary embolism: Code(s): I26.99 - Other pulmonary embolism without acute cor pulmonale (4) Lower extremity edema: Code(s): R60.0 - Localized edema (5) Multinodular thyroid: Code(s): E04.2 - Nontoxic multinodular goiter (6) Chronic thromboembolic disease: Code(s): I74.9 - Embolism and thrombosis of unspecified artery (7) Thyroid cancer: Code(s): C73 - Malignant neoplasm of thyroid gland Plan Urgent referal to the [facility] CTED clinic should have a full hypercoagulable workup, will refer to hematology. Does have a new diagnosis of thyroid cancer now. continue Symbicort Coumadin clinic continue oxygen 2L with activity LORRIE as needed F/U 2 months Orders: Referrals Pulmonology Referral I74.9 - Embolism and thrombosis of unspecified artery Hematology & Oncology Referral D68.59 - Other primary thrombophilia, I26.99 - Other pulmonary embolism without acute cor pulmonale, I74.9 - Embolism and thrombosis of unspecified artery Coding Level of Care Code Est Pt Level 5 (12479) Diagnoses Dyspnea R06.00 SERA (obstructive sleep apnea) G47.33 Bilateral pulmonary embolism I26.99 Lower extremity edema R60.0 Multinodular thyroid E04.2 Chronic thromboembolic disease I74.9 Thyroid cancer C73 Time Spent (min) 50
== END 2023-04-11 11:27 | disposition home or self-care (01) ==
PROVIDERS: PCP Internal Medicine; Visit Provider Hospitalist
DX: R06.00 Dyspnea, unspecified (principal); G47.33 Obstructive sleep apnea (adult) (pediatric); I26.99 Other pulmonary embolism without acute cor pulmonale; R60.0 Localized edema; E04.2 Nontoxic multinodular goiter; I74.9 Embolism and thrombosis of unspecified artery; C73 Malignant neoplasm of thyroid gland
CPT/HCPCS: 99215

== ENCOUNTER 2023-04-25 13:52 | Outpatient (AMB) | payer OTHER, SELFPAY ==
[2023-04-25 14:03] LABS: Prothrombin Time Whole Bld POC 44.6 sec (11.1-13.5); ~PT, ~INR - Anti Coag Clinic 3.7 (0.9-1.1)
--- NOTE | 2023-04-25 14:16 | MHC.OFFVISCO ---
Intake Intake Visit Reasons: Anticoagulation Allergies lisinopril [LISINOPRIL] Allergy (Severe, Verified 04/25/23 13:54) ANGIOEDEMA dapagliflozin [From FARXIGA] Allergy (Intermediate, Verified 04/25/23 13:54) HIVES liraglutide [From VICTOZA] Allergy (Intermediate, Verified 04/25/23 13:54) RASH metformin [METFORMIN] Allergy (Intermediate, Verified 04/25/23 13:54) GI UPSET erythromycin base [ERYTHROMYCIN BASE] Allergy (Unknown, Verified 04/25/23 13:54) UNKNOWN amitriptyline [AMITRIPTYLINE] Adverse Reaction (Intermediate, Verified 04/25/23 13:54) DRUGGED FEELING Medication List - Last Reconciled 04/25/23 by Licha Muñoz RN acetaminophen ER 650 mg PO Q6H PRN albuterol sulfate 2.5 mg inhalation Q4H PRN atorvastatin 20 mg PO BEDTIME blood sugar diagnostic (FreeStyle Lite Strips) As directed cyanocobalamin (vitamin B-12) 1,000 mcg PO BEDTIME ferrous sulfate 325 mg PO MOFR@2100 glimepiride 4 mg PO BEDTIME ibuprofen 800 mg PO Q8H PRN levothyroxine 50 mcg PO BEDTIME metformin ER 500 mg PO BID Oxygen Home Use As directed Proventil HFA 90 mcg/actuation (albuterol sulfate) 2 inhalations inhalation Q6H PRN 30 days NS valsartan-hydrochlorothiazide 320-25 mg 1 tab PO BEDTIME warfarin 5 mg See Protocol PO DAILY 30 days Nursing Note INR 3.7 out of therapeutic range- WILLL TRY TO TO KEEP INR CLOSER TO 3.0 Medications and supplements reviewed Patient status: STILL HAS DIFFICULTY BREATHING - LUNGS HAVE MULTIPLE CLOTS, [facility] BE SEEING HEM/ONC TODAY - DR HAYES, AND TO GO TO [place], SHE HAS THYROID CANCER AND TO HAVE IT REMOVED- THAT MAY BE MAKING HER HYPERCOAGUABLE ALONG WITH THE COVID SHE HAD Medications or supplements: NO CHANGES AT THIS TIME Diet: GOOD- SHE HAS HAD MORE WATERMELON THAN USUAL WHICH CAN RAISE THE INR DENIES any signs and symptoms of bleeding or clotting or unusual bruising Bleeding, bruising, clotting discussed Nutritional guidance given: EAT MORE GREENS WHEN HAVING REDS Dose: 2.5MG TODAY THEN 5MG X 3 DAYS/ 2.5MG X 4 DAYS F/U IN Date: 2 WEEKS ? Patient verbalizing understanding of instructions given. Anti-Coag Initial Assessment Social Hx Patient Tobacco Use Status: Never used Tobacco alcohol intake: former (socially) Alcohol intake frequency: does not drink Cardiovascular Hx: HTN Lung Disease HX: DVT/PE (pe 2020 and 2022) Endocrine Hx: Thyroid Disease (multinodular thyroid) Musculoskeletal Hx: Arthritis (neck back feet hands knees hips) Blood Disorder Hx: Anemia and Hyperlipidemia GI Hx: Ulcers, Diverticulosis and Hemorrhoids Hx: Other (hx uti as a child) Neurological Hx: Migraines/Headaches and Other (hx concussion as a child) Cancer HX: No Psych. 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
== END 2023-04-25 14:21 | disposition home or self-care (01) ==
LOC: HO.ACS 13:52
PROVIDERS: PCP Internal Medicine; Visit Provider Internal Medicine
DX: Z79.01 Long term (current) use of anticoagulants (principal)

== ENCOUNTER → 2023-04-25 13:52 | Outpatient (BNVA) | payer OTHER, SELFPAY | PROVIDERS: PCP Internal Medicine; Visit Provider Internal Medicine | DX: I26.99 Other pulmonary embolism without acute cor pulmonale (principal); Z79.01 Long term (current) use of anticoagulants; Z51.81 Encounter for therapeutic drug level monitoring | CPT/HCPCS: 85610; 99211 ==

== ENCOUNTER → 2023-04-25 14:17 | Outpatient (BNV) | payer OTHER, SELFPAY | PROVIDERS: PCP Internal Medicine; Visit Provider Internal Medicine Medical Oncology | DX: I26.99 Other pulmonary embolism without acute cor pulmonale (principal) | CPT/HCPCS: 99204 ==

== ENCOUNTER 2023-05-08 08:48 | Outpatient (AMB) | payer OTHER, SELFPAY ==
[2023-05-08 08:58] LABS: Prothrombin Time Whole Bld POC 41.6 sec (11.1-13.5); ~PT, ~INR - Anti Coag Clinic 3.5 (0.9-1.1)
--- NOTE | 2023-05-08 09:03 | MHC.OFFVISCO ---
Intake Intake Visit Reasons: Anticoagulation Allergies lisinopril [LISINOPRIL] Allergy (Severe, Verified 05/08/23 08:53) ANGIOEDEMA dapagliflozin [From FARXIGA] Allergy (Intermediate, Verified 05/08/23 08:53) HIVES liraglutide [From VICTOZA] Allergy (Intermediate, Verified 05/08/23 08:53) RASH metformin [METFORMIN] Allergy (Intermediate, Verified 05/08/23 08:53) GI UPSET erythromycin base [ERYTHROMYCIN BASE] Allergy (Unknown, Verified 05/08/23 08:53) UNKNOWN amitriptyline [AMITRIPTYLINE] Adverse Reaction (Intermediate, Verified 05/08/23 08:53) DRUGGED FEELING Medication List - Last Reconciled 05/08/23 by Licha Muñoz RN acetaminophen ER 650 mg PO Q6H PRN albuterol sulfate 2.5 mg inhalation Q4H PRN atorvastatin 20 mg PO BEDTIME blood sugar diagnostic (FreeStyle Lite Strips) As directed cyanocobalamin (vitamin B-12) 1,000 mcg PO BEDTIME ferrous sulfate 325 mg PO MOFR@2100 glimepiride 4 mg PO BEDTIME ibuprofen 800 mg PO Q8H PRN levothyroxine 50 mcg PO BEDTIME metformin ER 500 mg PO BID Oxygen Home Use As directed Proventil HFA 90 mcg/actuation (albuterol sulfate) 2 inhalations inhalation Q6H PRN 30 days NS valsartan-hydrochlorothiazide 320-25 mg 1 tab PO BEDTIME warfarin 5 mg See Protocol PO DAILY 30 days Nursing Note INR 3.5 out of therapeutic range Medications and supplements reviewed Patient status: Pt appears well today no changes in health - still very sob on exertion, going to [facility] per Dr Land for her multiple PEs s/p covid Medications or supplements: no changes at this time Diet: appetite is good Denies any signs and symptoms of bleeding or clotting or unusual bruising Bleeding, bruising, clotting discussed Nutritional guidance given: enc to have greens today and weekly Dose: keep her dose the same due to multiple PEs just enc slight increase in greens 5mg x 3 days/ 2.5mg x 4 days F/U INR Date : 11 days or sooner per her treatment plan from [place]?? Patient verbalizing understanding of instructions given. Anti-Coag Initial Assessment Social Hx Patient Tobacco Use Status: Never used Tobacco alcohol intake: former (socially) Alcohol intake frequency: does not drink Cardiovascular Hx: HTN Lung Disease HX: DVT/PE (pe 2020 and 2022) Endocrine Hx: Thyroid Disease (multinodular thyroid) Musculoskeletal Hx: Arthritis (neck back feet hands knees hips) Blood Disorder Hx: Anemia and Hyperlipidemia GI Hx: Ulcers, Diverticulosis and Hemorrhoids Hx: Other (hx uti as a child) Neurological Hx: Migraines/Headaches and Other (hx concussion as a child) Cancer HX: No Psych. 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
== END 2023-05-08 09:09 | disposition home or self-care (01) ==
LOC: HO.ACS 08:48
PROVIDERS: PCP Internal Medicine; Visit Provider Internal Medicine
DX: Z79.01 Long term (current) use of anticoagulants (principal)

== ENCOUNTER → 2023-05-08 08:48 | Outpatient (BNVA) | payer OTHER, SELFPAY | PROVIDERS: PCP Internal Medicine; Visit Provider Internal Medicine | DX: I26.99 Other pulmonary embolism without acute cor pulmonale (principal); Z79.01 Long term (current) use of anticoagulants; Z51.81 Encounter for therapeutic drug level monitoring | CPT/HCPCS: 85610; 99211 ==

== ENCOUNTER → 2023-05-14 12:01 | Outpatient (REF) | payer OTHER, SELFPAY ==
--- NOTE | 2023-05-14 12:30 | ECG_ITS ---
Test Reason : preop Blood Pressure : / mmHG Vent. Rate : 086 BPM Atrial Rate : 086 BPM P-R Int : 154 ms QRS Dur : 090 ms QT Int : 384 ms P-R-T Axes : 059 -09 -03 degrees QTc Int : 459 ms Normal sinus rhythm Normal ECG When compared with ECG of 27-JAN-2023 12:26, No significant change was found Referred By: Nick Saldivar Electronically Signed By:SUKHDEV PENNINGTON
[2023-05-14 12:38] LABS: MANUAL DIFF FLAG NO
[2023-05-14 12:46] LABS: Basophils Absolute Auto 0.1 X10*3/uL (0.0-0.2); Basophils Percent Auto 0.5 % (0-2); Eosinophils Absolute Auto 0.3 X10*3/uL (0.0-0.4); Eosinophils Percent Auto 3.1 % (0-4); Hematocrit 35.6 % (37.0-47.0); Hemoglobin 11.1 g/dl (12.0-16.0); Imm Gran Abs Auto 0.04 X10*3/uL (0.00-0.03); Imm Gran Pct Auto 0.4 % (0.0-0.4); Lymphocytes Absolute Auto 2.7 X10*3/uL (1.2-4.9); Mean Corpuscular HGB Conc 31.2 g/dl (31.0-35.0); Mean Corpuscular Hemoglobin 23.7 pg (27.0-33.0); Mean Corpuscular Volume 76.1 fL (80.0-98.0); Mean Platelet Volume 12.2 fL (9.4-12.3); Monocytes Absolute Auto 0.9 X10*3/uL (0.1-1.2); Monocytes Percent Auto 8.3 % (2-11); Neutrophils Absolute Auto 6.3 x10*3/uL (2.0-8.3); Neutrophils Percent Auto 61.7 % (45-73); Platelet Count 140 X10*3/uL (160-400); Red Blood Count 4.68 X10*6/uL (4.20-5.50); Red Cell Distribution Width 16.8 % (11.0-16.0); White Blood Count 10.3 X10*3/uL (4.8-10.8)
[2023-05-14 12:47] LABS: INTERNATIONAL NORM RATIO 2.4 (0.9-1.1); Prothrombin Time 28.9 SEC (11.1-13.3)
[2023-05-14 13:03] LABS: Estimated Average Glucose 226 mg/dL; Hemoglobin A1c % 9.5 % (<6.0)
[2023-05-14 14:01] LABS: Alanine Aminotransferase 18 U/L (0-31); Albumin Level 3.9 g/dL (3.5-5.0); Alkaline Phosphatase 79 U/L (39-117); Anion Gap 16 (12-20); Aspartate Amino Transferase 19 U/L (5-31); Bilirubin Total 0.5 mg/dL (0.0-1.0); Blood Urea Nitrogen 23 mg/dL (9-16); Calcium 9.4 mg/dL (8.4-10.2); Carbon Dioxide 24 mmol/L (22-29); Chloride 104 mmol/L (96-108); Estimated Glomerular Filt Rate 42; Glucose Random 193 mg/dL (60-115); Iron 34 mcg/dL (30-160); Percent Iron Saturation 11 % (15-50); Potassium 3.5 mmol/L (3.3-5.1); Sodium 140 mmol/L (135-145); Total Iron Binding Capacity 301 mcg/dL (228-428); Total Protein 6.8 g/dL (6.5-8.0); Unsaturated Iron Binding 267 ug/dL
[2023-05-14 14:10] LABS: Ferritin 35 ng/mL (10-250)
[2023-05-16 18:08] LABS: Cardiolipin IgG Ab 2.4 GPL-U/mL; Cardiolipin IgM Ab 8.6 MPL-U/mL
[2023-05-18 06:58] LABS: DRVVT Confirmation Negative (Negative); Hexagonal Phase Neutralization Negative (Negative); PTT (LAC) Screen 56 sec (<=40)
[2023-05-19 16:24] LABS: NT-proBNP 54 pg/mL (<125)
[2023-05-23 00:19] LABS: Beta-2 Glycoprotein IgA <2.0 U/mL (<20.0); Beta-2 Glycoprotein IgG <2.0 U/mL (<20.0); Beta-2 Glycoprotein IgM 8.2 U/mL (<20.0)
== END ==
LOC: HO.CARD 12:01
PROVIDERS: PCP Internal Medicine; Visit Provider Internal Medicine Pulmonary Disease
DX: R06.02 Shortness of breath (principal); I27.24 Chronic thromboembolic pulmonary hypertension; D34 Benign neoplasm of thyroid gland
CPT/HCPCS: 36415; 80053; 82728; 83036; 83540; 83880; 84443; 85025; 85597; 85598; 85610; 85613; 85670; 85730; 86146; 86147; 93005

== ENCOUNTER 2023-05-15 10:47 | Outpatient (REF) | payer OTHER, SELFPAY ==
[2023-05-15 14:38] LABS: Estimated Average Glucose 226 mg/dL; Hemoglobin A1c % 9.5 % (<6.0)
[2023-05-15 14:48] LABS: Alanine Aminotransferase 16 U/L (0-31); Albumin Level 3.9 g/dL (3.5-5.0); Alkaline Phosphatase 76 U/L (39-117); Anion Gap 15 (12-20); Aspartate Amino Transferase 20 U/L (5-31); Bilirubin Total 0.6 mg/dL (0.0-1.0); Blood Urea Nitrogen 27 mg/dL (9-16); Calcium 9.3 mg/dL (8.4-10.2); Carbon Dioxide 24 mmol/L (22-29); Chloride 103 mmol/L (96-108); Estimated Glomerular Filt Rate 40; Glucose Random 191 mg/dL (60-115); Potassium 3.8 mmol/L (3.3-5.1); Sodium 138 mmol/L (135-145); Total Protein 6.8 g/dL (6.5-8.0)
[2023-05-15 14:51] LABS: Thyroid Stimulating Hormone 2.26 uIU/mL (0.32-4.0)
== END 2023-05-15 10:48 | disposition home or self-care (01) ==
LOC: HO.LAB 10:47
PROVIDERS: PCP Internal Medicine; Visit Provider Internal Medicine
DX: E03.8 Other specified hypothyroidism (principal); E11.65 Type 2 diabetes mellitus with hyperglycemia; E78.2 Mixed hyperlipidemia; I10 Essential (primary) hypertension; I26.94 Multiple subsegmental thrombotic pulmonary emboli without acute cor pulmonale
CPT/HCPCS: 36415; 80053; 83036; 84443

== ENCOUNTER 2023-05-19 09:08 | Outpatient (AMB) | payer OTHER, SELFPAY ==
[2023-05-19 09:29] LABS: Prothrombin Time Whole Bld POC 30.5 sec (11.1-13.5); ~PT, ~INR - Anti Coag Clinic 2.5 (0.9-1.1)
--- NOTE | 2023-05-19 09:41 | MHC.OFFVISCO ---
Intake Intake Visit Reasons: Anticoagulation Allergies lisinopril [LISINOPRIL] Allergy (Severe, Verified 05/19/23 09:22) ANGIOEDEMA dapagliflozin [From FARXIGA] Allergy (Intermediate, Verified 05/19/23 09:22) HIVES liraglutide [From VICTOZA] Allergy (Intermediate, Verified 05/19/23 09:22) RASH metformin [METFORMIN] Allergy (Intermediate, Verified 05/19/23 09:22) GI UPSET erythromycin base [ERYTHROMYCIN BASE] Allergy (Unknown, Verified 05/19/23 09:22) UNKNOWN amitriptyline [AMITRIPTYLINE] Adverse Reaction (Intermediate, Verified 05/19/23 09:22) DRUGGED FEELING Medication List - Last Reconciled 05/19/23 by Licha Muñoz RN acetaminophen ER 650 mg PO Q6H PRN albuterol sulfate 2.5 mg inhalation Q4H PRN atorvastatin 20 mg PO BEDTIME blood sugar diagnostic (FreeStyle Lite Strips) As directed cyanocobalamin (vitamin B-12) 1,000 mcg PO BEDTIME ferrous sulfate 325 mg PO MOFR@2100 glimepiride 4 mg PO BEDTIME ibuprofen 800 mg PO Q8H PRN levothyroxine 50 mcg PO BEDTIME metformin ER 500 mg PO BID Oxygen Home Use As directed Proventil HFA 90 mcg/actuation (albuterol sulfate) 2 inhalations inhalation Q6H PRN 30 days NS valsartan-hydrochlorothiazide 320-25 mg 1 tab PO BEDTIME warfarin 5 mg See Protocol PO DAILY 30 days Nursing Note INR: 2.5 in therapeutic range S/P [facility] VISIT PT TO HAVE PROCEDURE 05/29/23 - TO MEASURE PRESSURE IN HER HEART UNDETERMINED IF SHE NEEDS TO HOLD WARFARIN FOR THE PROCEDURE HAS AN APPT WITH DR KING TODAY Medications and supplements reviewed- WILL CALL WITH ANY CHANGES No changes in health, diet, medications, or supplements, Denies any signs and symptoms of bleeding or bruising or clotting. Bleeding, bruising, clotting discussed Nutritional guidance given CONT SAME DIET Dose: KEEP SAME DOSE 5MG MWF 2.5MG X 4 DAYS F/U INR: 05/26/23 Patient verbalizes understanding of instructions given WILL CALL [facility] REGARDING PROCEDURE AND HOLDING WARFARIN 1334 -t/c to PT, she was seen by PCP today and placed on dermal blood sugar monitoring and insulin, pt does not know the name yet. t/c to pt [facility] spoke with nurse Bell regarding pt status and plan of care, reported new insulin to start today or tomorrow, pt has multiple PEs and requesting lovenox bridge, nurse stated pt is having a pulmonary arterialogram , right sided heart cath, adn possibly pulmonary thromboembolectomy. Nurse Bell to discuss with MD and notify [facility] of days to hold and bridge. [facility] to test INR 05/23/23 to determine start date of lovenox bridge. Anti-Coag Initial Assessment Social Hx Patient Tobacco Use Status: Never used Tobacco alcohol intake: former (socially) Alcohol intake frequency: does not drink Cardiovascular Hx: HTN Lung Disease HX: DVT/PE (pe 2020 and 2022) Endocrine Hx: Thyroid Disease (multinodular thyroid) Musculoskeletal Hx: Arthritis (neck back feet hands knees hips) Blood Disorder Hx: Anemia and Hyperlipidemia GI Hx: Ulcers, Diverticulosis and Hemorrhoids Hx: Other (hx uti as a child) Neurological Hx: Migraines/Headaches and Other (hx concussion as a child) Cancer HX: No Psych. Illness/Depression: Yes Coding Level of Care Code Est Patient Level 1 Diagnoses Current use of anticoagulant therapy Z79.01 Assessment & Plan Assessment & Plan (1) Current use of anticoagulant therapy: Code(s): Z79.01 - intermediate frame tender (current) use of anticoagulants Category: Medical
== END 2023-05-19 09:44 | disposition home or self-care (01) ==
LOC: HO.ACS 09:08
PROVIDERS: PCP Internal Medicine; Visit Provider Internal Medicine
DX: Z79.01 Long term (current) use of anticoagulants (principal)

== ENCOUNTER → 2023-05-19 09:08 | Outpatient (BNVA) | payer OTHER, SELFPAY | PROVIDERS: PCP Internal Medicine; Visit Provider Internal Medicine | DX: I26.99 Other pulmonary embolism without acute cor pulmonale (principal); Z79.01 Long term (current) use of anticoagulants; Z51.81 Encounter for therapeutic drug level monitoring | CPT/HCPCS: 85610; 99211 ==

== ENCOUNTER 2023-05-20 12:33 | Outpatient (AMB) | payer OTHER, SELFPAY ==
--- NOTE | 2023-05-20 12:35 | A.OFFVIS_ITS ---
Intake Vital Signs 05/20/23 12:43 Height 5 ft 5 in Weight 318 lb 2.032 oz BMI 52.9 BP 106/72 Blood Pressure Location Rt brachial Position Sitting Pulse 83 Pulse Source Pulse Oximeter Intake Visit Reasons: DM Intake Note: New patient to Dr. Lovelace present for Diabetes Mellitus. Last Diabetic Eye exam: 06/27/2022 Last Podiatry Visit: None Random Glucose: 263 mg/dl HgA1C: 9.5% 05/15/2023 Senior Commissary Agent Required: No Accompanied by: Self / Same As Patient Allergies lisinopril [LISINOPRIL] Allergy (Severe, Verified 05/20/23 12:46) ANGIOEDEMA dapagliflozin [From FARXIGA] Allergy (Intermediate, Verified 05/20/23 12:46) HIVES liraglutide [From VICTOZA] Allergy (Intermediate, Verified 05/20/23 12:46) RASH metformin [METFORMIN] Allergy (Intermediate, Verified 05/20/23 12:46) GI UPSET erythromycin base [ERYTHROMYCIN BASE] Allergy (Unknown, Verified 05/20/23 12:46) UNKNOWN amitriptyline [AMITRIPTYLINE] Adverse Reaction (Intermediate, Verified 05/20/23 12:46) DRUGGED FEELING HPI HPI Comments History of Present Illness Details 47 YO F who is seen in consultation for T2DM at the request of PCP. Previously seen by endocrinology for management of a multinodular goiter by Dr. Hernandez on 03/24/2023 Initially diagnosed with T2DM in >10 yrs . Never saw endo gayle Was initially started on treatment with []. Current regimen glimeprimide 4 mg QD Metformin 500 mg BID Lantus 15 units started yesterday . , unfortunately, patient did not bring log book or glucometer to visit. Started Kole yesterday . POC in mid 200s on average Most recent A1C 9.5 , Family history of T2DM in paternal grandmother no one else with diabetes . Has eyes checked yearly, last eye exam 06/2023 , denies retinopathy. Denies neuropathy, not sees podiatry. Denies nephropathy, on ASIF/ARB. . Has HLD, on statin. . Denies CAD. Not Had diabetes education. [facility] Medical History (Updated 04/25/23 @ 14:36 by Jerry Metcalf MD) Hypercoagulable state Thyroid cancer Chronic thromboembolic disease Lower extremity edema Multinodular thyroid Family history of deep venous thrombosis Pleuritic chest pain Pulmonary emboli Dyspnea Dyspareunia in female Anemia Obstructive sleep apnea Morbid obesity History of COVID-19 (~2020) History of pulmonary embolus (PE) (~2020) Anxiety Chronic headaches Dyspnea on exertion Diabetes type 2, controlled Hypothyroid HTN (hypertension) Hyperlipidemia Surgical History History of surgery on right wrist History of foot surgery History of tubal ligation History of carpal tunnel surgery History of ERCP History of laparoscopic cholecystectomy History of surgery Family History Father Myocardial infarction COPD (chronic obstructive pulmonary disease) Mother COPD (chronic obstructive pulmonary disease) Brother Colitis Social History Housing: House Alcohol intake: former (socially) Patient Tobacco Use Status: Never used Tobacco service: No Current occupational status: employed 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 Absence of acromegalic features. Neck exam reveals nl size thyroid about 15 gms. No thyroid nodules palpable. No carotid bruits present. Lungs CTA. Heart S1 S2, Reg R/R. No M/R/ G. Skin exam reveals absence of vitiligo or acanthosis nigricans. Abdominal exam reveals Soft NT/ND with NA BS. No organomegaly present. Neck Other: . Extrem Other: Visual exam of foot performed. No ulcerations or open lesions. No onchomycosis, no callouses.Pulses 2 + distally Sensation intact to monofilament exam. Vibratory sensation sensed is intact with 128 Hz tuning fork. There is 2+ edema present lower extremities around the ankles Assessment & Plan Assessment & Plan (1) Diabetes mellitus: Code(s): E11.9 - Type 2 diabetes mellitus without complications Plan: This is a 47-year-old white female with a history of type 2 diabetes being treat ed with glimepiride and metformin poor glycemic control and no known microvascular or macrovascular complications. Plan is that the patient check her point cares pre and post meals and bring the glucometer with her to follow-up visit. Will sent to certified diabetes educator and right of way manager. Will check lipid profile. Explained to patient relationship poor glycemic control to development and progression complications. Will check anti-GAD65 antibodies and if negative can start Mounjaro 2.5 mg and titrate as tolerated. Patient is already tried and failed Victoza and Trulicity. Mounjaro 2.5 mg samples given the patient lot number [id number] C expiration date 10/10/2024 Orders: Orders Glutamic acid decarboxylase Ab Today E11.9 - Type 2 diabetes mellitus without complications Lipid Panel Today E11.9 - Type 2 diabetes mellitus without complications Referrals Nutrition/Dietitian Referral E11.9 - Type 2 diabetes mellitus without complications Diabetes Education Referral E11.9 - Type 2 diabetes mellitus without complications Coding Level of Care Code Est Pt Level 4 (87219) Diagnoses Diabetes mellitus E11.9
[2023-05-20 12:43] VITALS: BP 106/72; PULSE 83; BMI 52.9
== END 2023-05-20 13:39 | disposition home or self-care (01) ==
PROVIDERS: PCP Internal Medicine; Visit Provider Internal Medicine Endocrinology, Diabetes & Metabolism
DX: E11.9 Type 2 diabetes mellitus without complications (principal)
CPT/HCPCS: 99214

== ENCOUNTER → 2023-05-20 12:33 | Outpatient (BNVA) | payer OTHER, SELFPAY | PROVIDERS: PCP Internal Medicine; Visit Provider Internal Medicine Endocrinology, Diabetes & Metabolism | DX: E11.9 Type 2 diabetes mellitus without complications (principal) | CPT/HCPCS: 99212 ==

== ENCOUNTER 2023-05-23 08:17 | Outpatient (AMB) | payer OTHER, SELFPAY ==
[2023-05-23 08:29] LABS: Prothrombin Time Whole Bld POC 36.6 sec (11.1-13.5); ~PT, ~INR - Anti Coag Clinic 3.1 (0.9-1.1)
--- NOTE | 2023-05-23 09:07 | MHC.OFFVISCO ---
Intake Intake Visit Reasons: Anticoagulation Allergies lisinopril [LISINOPRIL] Allergy (Severe, Verified 05/23/23 08:24) ANGIOEDEMA dapagliflozin [From FARXIGA] Allergy (Intermediate, Verified 05/23/23 08:24) HIVES liraglutide [From VICTOZA] Allergy (Intermediate, Verified 05/23/23 08:24) RASH metformin [METFORMIN] Allergy (Intermediate, Verified 05/23/23 08:24) GI UPSET erythromycin base [ERYTHROMYCIN BASE] Allergy (Unknown, Verified 05/23/23 08:24) UNKNOWN amitriptyline [AMITRIPTYLINE] Adverse Reaction (Intermediate, Verified 05/23/23 08:24) DRUGGED FEELING Nursing Note INR: 3.1 almost in therapeutic range Medications and supplements reviewed On 05/29/23 pt to have right side heart cath and pulmonary angiogram at [facility] to hold warfarinx 5 days and bridge with lovenox, she will take 2.5mg of warfarin today instead of 5mg the hold tomorrows warfarin and start lovenox in pm tomorrow night due to high risk of clotting, lovenox instructions reviewed with pt and kit given with understanding she will stop lovenox 24 before the procedure which may be subject to change to 12 hours per labs and surgeon she will resume lovenox and warfarin in pm of the day of the procedure per md and outcome of the procedure she will receive a booster dose 5mg fri sat sun then resume usual dose 5mg mwf/ 2.5mg x 4 days No changes in health, diet, medications, or supplements, Denies any signs and symptoms of bleeding or bruising or clotting. Bleeding, bruising, clotting discussed Nutritional guidance given avoid greens 3 days prior and post procedure until INR greater than 2.0 Dose: see above F/U INR: 06/02/23 1315 prior to PCP appt Patient verbalizes understanding of instructions given Anti-Coag Initial Assessment Social Hx Patient Tobacco Use Status: Never used Tobacco alcohol intake: former (socially) Alcohol intake frequency: does not drink Cardiovascular Hx: HTN Lung Disease HX: DVT/PE (pe 2020 and 2022) Endocrine Hx: Thyroid Disease (multinodular thyroid) Musculoskeletal Hx: Arthritis (neck back feet hands knees hips) Blood Disorder Hx: Anemia and Hyperlipidemia GI Hx: Ulcers, Diverticulosis and Hemorrhoids Hx: Other (hx uti as a child) Neurological Hx: Migraines/Headaches and Other (hx concussion as a child) Cancer HX: No Psych. 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
== END 2023-05-23 10:20 | disposition home or self-care (01) ==
LOC: HO.ACS 08:17
PROVIDERS: PCP Internal Medicine; Visit Provider Internal Medicine
DX: Z79.01 Long term (current) use of anticoagulants (principal)

== ENCOUNTER → 2023-05-23 08:17 | Outpatient (BNVA) | payer OTHER, SELFPAY | PROVIDERS: PCP Internal Medicine; Visit Provider Internal Medicine | DX: I26.99 Other pulmonary embolism without acute cor pulmonale (principal); Z79.01 Long term (current) use of anticoagulants; Z51.81 Encounter for therapeutic drug level monitoring | CPT/HCPCS: 85610; 99211 ==

== ENCOUNTER 2023-05-28 11:12 | Outpatient (REF) | payer OTHER, SELFPAY ==
[2023-05-28 13:07] LABS: MANUAL DIFF FLAG NO
[2023-05-28 13:50] LABS: Basophils Absolute Auto 0.1 X10*3/uL (0.0-0.2); Basophils Percent Auto 0.6 % (0-2); Eosinophils Absolute Auto 0.2 X10*3/uL (0.0-0.4); Eosinophils Percent Auto 2.6 % (0-4); Hematocrit 34.9 % (37.0-47.0); Hemoglobin 10.9 g/dl (12.0-16.0); Imm Gran Abs Auto 0.04 X10*3/uL (0.00-0.03); Imm Gran Pct Auto 0.4 % (0.0-0.4); Lymphocytes Absolute Auto 2.4 X10*3/uL (1.2-4.9); Lymphocytes Percent Auto 25.2 % (20-40); Mean Corpuscular HGB Conc 31.2 g/dl (31.0-35.0); Mean Corpuscular Hemoglobin 23.9 pg (27.0-33.0); Mean Corpuscular Volume 76.4 fL (80.0-98.0); Mean Platelet Volume 11.1 fL (9.4-12.3); Monocytes Absolute Auto 0.8 X10*3/uL (0.1-1.2); Monocytes Percent Auto 8.8 % (2-11); Neutrophils Absolute Auto 5.8 x10*3/uL (2.0-8.3); Neutrophils Percent Auto 62.4 % (45-73); Platelet Count 125 X10*3/uL (160-400); Red Blood Count 4.57 X10*6/uL (4.20-5.50); White Blood Count 9.3 X10*3/uL (4.8-10.8)
[2023-05-28 13:54] LABS: Estimated Average Glucose 220 mg/dL; Hemoglobin A1c % 9.3 % (<6.0)
[2023-05-28 14:01] LABS: Cholesterol 137 mg/dL (<200); HDL Cholesterol 33 mg/dL (>40); LDL Cholesterol Calculated 48 mg/dL (<100); Triglycerides 284 mg/dL (<150)
[2023-05-28 14:11] LABS: Alanine Aminotransferase 21 U/L (0-31); Albumin Level 3.8 g/dL (3.5-5.0); Alkaline Phosphatase 82 U/L (39-117); Anion Gap 15 (12-20); Aspartate Amino Transferase 26 U/L (5-31); Bilirubin Total 0.6 mg/dL (0.0-1.0); Blood Urea Nitrogen 19 mg/dL (9-16); Carbon Dioxide 22 mmol/L (22-29); Chloride 105 mmol/L (96-108); Estimated Glomerular Filt Rate 54; Glucose Random 157 mg/dL (60-115); Potassium 3.5 mmol/L (3.3-5.1); Sodium 138 mmol/L (135-145); Total Protein 6.9 g/dL (6.5-8.0)
[2023-05-28 14:15] LABS: Thyroid Stimulating Hormone 1.89 uIU/mL (0.32-4.0)
[2023-05-28 15:14] LABS: Creatinine Urine 36.73 mg/dL; Microalbumin Urine < 5.0 mg/L
[2023-06-01 22:09] LABS: Glutamic acid decarboxylase Ab <5 IU/mL (<5)
== END 2023-05-28 11:13 | disposition home or self-care (01) ==
LOC: HO.LAB 11:12
PROVIDERS: Absent Provider Internal Medicine; PCP Internal Medicine; Visit Provider Internal Medicine Endocrinology, Diabetes & Metabolism
DX: C73 Malignant neoplasm of thyroid gland (principal); E11.65 Type 2 diabetes mellitus with hyperglycemia; E78.2 Mixed hyperlipidemia; I27.82 Chronic pulmonary embolism
CPT/HCPCS: 36415; 80053; 80061; 82043; 82570; 83036; 84443; 85025; 86341

== ENCOUNTER 2023-06-02 13:21 | Outpatient (AMB) | payer OTHER, SELFPAY ==
[2023-06-02 13:38] LABS: Prothrombin Time Whole Bld POC 18.3 sec (11.1-13.5); ~PT, ~INR - Anti Coag Clinic 1.5 (0.9-1.1)
--- NOTE | 2023-06-02 13:59 | MHC.OFFVISCO ---
Intake Intake Visit Reasons: Anticoagulation Allergies lisinopril [LISINOPRIL] Allergy (Severe, Verified 06/02/23 13:28) ANGIOEDEMA dapagliflozin [From FARXIGA] Allergy (Intermediate, Verified 06/02/23 13:28) HIVES liraglutide [From VICTOZA] Allergy (Intermediate, Verified 06/02/23 13:28) RASH metformin [METFORMIN] Allergy (Intermediate, Verified 06/02/23 13:28) GI UPSET erythromycin base [ERYTHROMYCIN BASE] Allergy (Unknown, Verified 06/02/23 13:28) UNKNOWN amitriptyline [AMITRIPTYLINE] Adverse Reaction (Intermediate, Verified 06/02/23 13:28) DRUGGED FEELING Medication List - Last Reconciled 06/02/23 by Licha Muñoz RN acetaminophen ER 650 mg PO Q6H PRN albuterol sulfate 2.5 mg inhalation Q4H PRN atorvastatin 20 mg PO BEDTIME blood sugar diagnostic (FreeStyle Lite Strips) As directed cyanocobalamin (vitamin B-12) 1,000 mcg PO BEDTIME enoxaparin (Lovenox) 100 mg See Protocol subcut Q12H 14 days ferrous sulfate 325 mg PO MOFR@2100 glimepiride 4 mg PO BEDTIME ibuprofen 800 mg PO Q8H PRN levothyroxine 50 mcg PO BEDTIME Oxygen Home Use As directed Proventil HFA 90 mcg/actuation (albuterol sulfate) 2 inhalations inhalation Q6H PRN 30 days NS valsartan-hydrochlorothiazide 320-25 mg 1 tab PO BEDTIME warfarin 5 mg See Protocol PO DAILY 30 days Nursing Note INR 1.5? out of therapeutic range Medications and supplements reviewed Patient status: S/P PULMONARY ANGIOGRAM AT [facility], SHE HELD WARFARIN AND IS BRIDGING WITH LOVENOX, Medications or supplements: TO START MOUNJARO SQ FOR DIABETES WHICH CAN EFFECT THE INR - LOWERING IT DUE TO DELAYED GASTRIC EMPTYING, DUE TO HER RECENT PROCEDURE AND HX OF CLOTS AND SUB THERAPUETIC INR TODAY AND REQUIRING TO REMAIN ON LOVENOX IT MAY BE BEST SHE WAIT TO START NEW MED AFTER SHE IS THERAPEUTIC. CALL PLACED TO [facility] SPOKE WITH MARY WHO AGREED WITH PLAN OF CARE, CALL PLACED TO DR WEISS( ENDOCRIN) WITH PLAN OF CARE, CALL PLACED TO DR KING SPOKE WITH CECELIA REGARDING PT STATUS AND PLAN OF CARE TO CONVEY TO PCP Diet: GOOD Denies any signs and symptoms of bleeding or clotting or unusual bruising Bleeding, bruising, clotting discussed Nutritional guidance given: AVOID GREENS UNTIL INR GREATER THAN 2.0 Dose: 7.5MG TODAY 5MG FRI, 5MG FRI, 2.5MG UR RECHECK FRIDAY CONT LOVENOX F/U INR Date : 06/06/23 ??- WILL CALL PT TO SEE IF SHE CAN COME IN FRIDAY INSTEAD Patient verbalizing understanding of instructions given. Anti-Coag Initial Assessment Social Hx Patient Tobacco Use Status: Never used Tobacco alcohol intake: former (socially) Alcohol intake frequency: does not drink Cardiovascular Hx: HTN Lung Disease HX: DVT/PE (pe 2020 and 2022) Endocrine Hx: Thyroid Disease (multinodular thyroid) Musculoskeletal Hx: Arthritis (neck back feet hands knees hips) Blood Disorder Hx: Anemia and Hyperlipidemia GI Hx: Ulcers, Diverticulosis and Hemorrhoids Hx: Other (hx uti as a child) Neurological Hx: Migraines/Headaches and Other (hx concussion as a child) Cancer HX: No Psych. 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
== END 2023-06-02 14:24 | disposition home or self-care (01) ==
LOC: HO.ACS 13:21
PROVIDERS: PCP Internal Medicine; Visit Provider Internal Medicine
DX: Z79.01 Long term (current) use of anticoagulants (principal)

== ENCOUNTER → 2023-06-02 13:21 | Outpatient (BNVA) | payer OTHER, SELFPAY | PROVIDERS: PCP Internal Medicine; Visit Provider Internal Medicine | DX: I26.99 Other pulmonary embolism without acute cor pulmonale (principal); Z79.01 Long term (current) use of anticoagulants; Z51.81 Encounter for therapeutic drug level monitoring | CPT/HCPCS: 85610; 99211 ==

== ENCOUNTER 2023-06-05 09:44 | Outpatient (AMB) | payer OTHER, SELFPAY ==
[2023-06-05 09:58] LABS: Prothrombin Time Whole Bld POC 27.1 sec (11.1-13.5); ~PT, ~INR - Anti Coag Clinic 2.3 (0.9-1.1)
--- NOTE | 2023-06-05 10:07 | MHC.OFFVISCO ---
Intake Intake Visit Reasons: Anticoagulation Allergies lisinopril [LISINOPRIL] Allergy (Severe, Verified 06/05/23 09:50) ANGIOEDEMA dapagliflozin [From FARXIGA] Allergy (Intermediate, Verified 06/05/23 09:50) HIVES liraglutide [From VICTOZA] Allergy (Intermediate, Verified 06/05/23 09:50) RASH metformin [METFORMIN] Allergy (Intermediate, Verified 06/05/23 09:50) GI UPSET erythromycin base [ERYTHROMYCIN BASE] Allergy (Unknown, Verified 06/05/23 09:50) UNKNOWN amitriptyline [AMITRIPTYLINE] Adverse Reaction (Intermediate, Verified 06/05/23 09:50) DRUGGED FEELING Medication List - Last Reconciled 06/05/23 by Francine Tipton RN acetaminophen ER 650 mg PO Q6H PRN albuterol sulfate 2.5 mg inhalation Q4H PRN atorvastatin 20 mg PO BEDTIME blood sugar diagnostic (FreeStyle Lite Strips) As directed cyanocobalamin (vitamin B-12) 1,000 mcg PO BEDTIME ferrous sulfate 325 mg PO MOFR@2100 glimepiride 4 mg PO BEDTIME levothyroxine 50 mcg PO BEDTIME metformin 1,000 mg PO BID Oxygen Home Use As directed Proventil HFA 90 mcg/actuation (albuterol sulfate) 2 inhalations inhalation Q6H PRN 30 days NS tirzepatide (Mounjaro) 2.5 mg subcut QWEEK valsartan-hydrochlorothiazide 320-25 mg 1 tab PO BEDTIME warfarin 5 mg See Protocol PO DAILY 30 days Nursing Note Amb to ACS wearing cont O2, feeling tired of the lovenox Medications and supplements reviewed, plan is to start mounjaro on Friday No new changes in health, diet, medications, or supplements Denies any unusual signs and symptoms of bruising, bleeding, has bruising at lovenox sites describes one area being hard, encouraged use of warm compress Denies any new Chest pain, SOB, or clotting INR: 2.3 now in therapeutic range Nutritional guidance given: balance greens and reds in diet Dose: can stop lovenox injections, follow new dosing, increase weekly dose due to lowering effect of mounjaro (extra 2.5mg on Saturdays to start) F/U INR: 5 days to monitor post lovenox stop and mounjaro start sts she is going to have a procedure in [place] end of July related to the clots in lungs, may be on lovenox for several weeks as having a couple procedures a week apart- she will have more information as it gets closer Patient verbalizes understanding of instructions given with accurate read back/ teach back of dosing Anti-Coag Initial Assessment Social Hx Patient Tobacco Use Status: Never used Tobacco alcohol intake: former (socially) Alcohol intake frequency: does not drink Cardiovascular Hx: HTN Lung Disease HX: DVT/PE (pe 2020 and 2022) Endocrine Hx: Thyroid Disease (multinodular thyroid) Musculoskeletal Hx: Arthritis (neck back feet hands knees hips) Blood Disorder Hx: Anemia and Hyperlipidemia GI Hx: Ulcers, Diverticulosis and Hemorrhoids Hx: Other (hx uti as a child) Neurological Hx: Migraines/Headaches and Other (hx concussion as a child) Cancer HX: No Psych. 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
== END 2023-06-05 14:25 | disposition home or self-care (01) ==
LOC: HO.ACS 09:44
PROVIDERS: PCP Internal Medicine; Visit Provider Internal Medicine
DX: Z79.01 Long term (current) use of anticoagulants (principal)

== ENCOUNTER → 2023-06-05 09:44 | Outpatient (BNVA) | payer OTHER, SELFPAY | PROVIDERS: PCP Internal Medicine; Visit Provider Internal Medicine | DX: I26.99 Other pulmonary embolism without acute cor pulmonale (principal); Z79.01 Long term (current) use of anticoagulants; Z51.81 Encounter for therapeutic drug level monitoring | CPT/HCPCS: 85610; 99212 ==

== ENCOUNTER 2023-06-10 11:14 | Outpatient (AMB) | payer OTHER, SELFPAY ==
--- NOTE | 2023-06-10 11:23 | MHC.OFFVISCO ---
Intake Intake Visit Reasons: Anticoagulation Allergies lisinopril [LISINOPRIL] Allergy (Severe, Verified 06/10/23 11:20) ANGIOEDEMA dapagliflozin [From FARXIGA] Allergy (Intermediate, Verified 06/10/23 11:20) HIVES liraglutide [From VICTOZA] Allergy (Intermediate, Verified 06/10/23 11:20) RASH metformin [METFORMIN] Allergy (Intermediate, Verified 06/10/23 11:20) GI UPSET erythromycin base [ERYTHROMYCIN BASE] Allergy (Unknown, Verified 06/10/23 11:20) UNKNOWN amitriptyline [AMITRIPTYLINE] Adverse Reaction (Intermediate, Verified 06/10/23 11:20) DRUGGED FEELING Medication List - Last Reconciled 06/10/23 by Linh Mcnulty RN acetaminophen ER 650 mg PO Q6H PRN albuterol sulfate 2.5 mg inhalation Q4H PRN atorvastatin 20 mg PO BEDTIME blood sugar diagnostic (FreeStyle Lite Strips) As directed cyanocobalamin (vitamin B-12) 1,000 mcg PO BEDTIME ferrous sulfate 325 mg PO MOFR@2100 glimepiride 4 mg PO BEDTIME levothyroxine 50 mcg PO BEDTIME metformin 1,000 mg PO BID Oxygen Home Use As directed Proventil HFA 90 mcg/actuation (albuterol sulfate) 2 inhalations inhalation Q6H PRN 30 days NS tirzepatide (Mounjaro) 2.5 mg subcut QWEEK valsartan-hydrochlorothiazide 320-25 mg 1 tab PO BEDTIME warfarin 5 mg See Protocol PO DAILY 30 days Nursing Note INR 3.8-? out of therapeutic range Medications and supplements reviewed Patient status: pt on cont oxygen 2 liters nasal cannulla Medications or supplements: first dose mounjara on friday- this may affect inr Diet: appetite good Denies any signs and symptoms of bleeding or clotting or unusual bruising Bleeding, bruising, clotting discussed Nutritional guidance given: eat greens to lower inr, no reds for 2 days Dose: hold warfarin today, then cont 5mg x 4, 2.5mg x 3 F/U INR Date : 1 week Patient verbalizing understanding of instructions given. Anti-Coag Initial Assessment Social Hx Patient Tobacco Use Status: Never used Tobacco alcohol intake: former (socially) Alcohol intake frequency: does not drink Cardiovascular Hx: HTN Lung Disease HX: DVT/PE (pe 2021 and 2022) Endocrine Hx: Thyroid Disease (multinodular thyroid) Musculoskeletal Hx: Arthritis (neck back feet hands knees hips) Blood Disorder Hx: Anemia and Hyperlipidemia GI Hx: Ulcers, Diverticulosis and Hemorrhoids Hx: Other (hx uti as a child) Neurological Hx: Migraines/Headaches and Other (hx concussion as a child) Cancer HX: No Psych. Illness/Depression: Yes Coding Level of Care Code Est Patient Level 1 Diagnoses Current use of anticoagulant therapy Z79.01 Assessment & Plan Assessment & Plan (1) Current use of anticoagulant therapy: Code(s): Z79.01 - prison (current) use of anticoagulants Category: Medical
[2023-06-10 11:24] LABS: Prothrombin Time Whole Bld POC 46.1 sec (11.1-13.5); ~PT, ~INR - Anti Coag Clinic 3.8 (0.9-1.1)
== END 2023-06-10 11:32 | disposition home or self-care (01) ==
LOC: HO.ACS 11:14
PROVIDERS: PCP Internal Medicine; Visit Provider Internal Medicine
DX: Z79.01 Long term (current) use of anticoagulants (principal)

== ENCOUNTER → 2023-06-10 11:14 | Outpatient (BNVA) | payer OTHER, SELFPAY | PROVIDERS: PCP Internal Medicine; Visit Provider Internal Medicine | DX: I26.99 Other pulmonary embolism without acute cor pulmonale (principal); Z51.81 Encounter for therapeutic drug level monitoring; Z79.01 Long term (current) use of anticoagulants | CPT/HCPCS: 85610; 99211 ==

== ENCOUNTER 2023-06-19 11:04 | Outpatient (AMB) | payer OTHER, SELFPAY ==
[2023-06-19 11:17] LABS: Prothrombin Time Whole Bld POC 44.8 sec (11.1-13.5); ~PT, ~INR - Anti Coag Clinic 3.7 (0.9-1.1)
--- NOTE | 2023-06-19 11:21 | MHC.OFFVISCO ---
Intake Intake Visit Reasons: Anticoagulation Allergies lisinopril [LISINOPRIL] Allergy (Severe, Verified 06/19/23 11:10) ANGIOEDEMA dapagliflozin [From FARXIGA] Allergy (Intermediate, Verified 06/19/23 11:10) HIVES liraglutide [From VICTOZA] Allergy (Intermediate, Verified 06/19/23 11:10) RASH metformin [METFORMIN] Allergy (Intermediate, Verified 06/19/23 11:10) GI UPSET erythromycin base [ERYTHROMYCIN BASE] Allergy (Unknown, Verified 06/19/23 11:10) UNKNOWN amitriptyline [AMITRIPTYLINE] Adverse Reaction (Intermediate, Verified 06/19/23 11:10) DRUGGED FEELING Medication List - Last Reconciled 06/19/23 by Francine Tipton RN acetaminophen ER 650 mg PO Q6H PRN albuterol sulfate 2.5 mg inhalation Q4H PRN atorvastatin 20 mg PO BEDTIME blood sugar diagnostic (FreeStyle Lite Strips) As directed cyanocobalamin (vitamin B-12) 1,000 mcg PO BEDTIME ferrous sulfate 325 mg PO MOFR@2100 glimepiride 4 mg PO BEDTIME levothyroxine 50 mcg PO BEDTIME metformin 1,000 mg PO BID Oxygen Home Use As directed Proventil HFA 90 mcg/actuation (albuterol sulfate) 2 inhalations inhalation Q6H PRN 30 days NS tirzepatide (Mounjaro) 2.5 mg subcut QWEEK valsartan-hydrochlorothiazide 320-25 mg 1 tab PO BEDTIME warfarin 5 mg See Protocol PO DAILY 30 days Nursing Note Amb to ACS wearing cont O2, accomp by nguyen feeling ok Medications and supplements reviewed, continues mounjaro weekly No other changes in health, diet, medications, or supplements Denies any unusual signs and symptoms of bruising, bleeding Denies any new Chest pain, SOB, or clotting INR: 3.7 above therapeutic range Nutritional guidance given: balance greens and reds in diet as usual, do not take extra greens as plan weekly dosing decrease Dose: hold warfarin today then decrease weekly to 5mg x 3 days (vs 4 days) and 2.5mg x 4 days (vs 3 days); F/U INR:10 days, sched 06/30 as has PCP same day Patient verbalizes understanding of instructions given with accurate read back/ teach back of dosing Anti-Coag Initial Assessment Social Hx Patient Tobacco Use Status: Never used Tobacco alcohol intake: former (socially) Alcohol intake frequency: does not drink Cardiovascular Hx: HTN Lung Disease HX: DVT/PE (pe 2020 and 2022) Endocrine Hx: Thyroid Disease (multinodular thyroid) Musculoskeletal Hx: Arthritis (neck back feet hands knees hips) Blood Disorder Hx: Anemia and Hyperlipidemia GI Hx: Ulcers, Diverticulosis and Hemorrhoids Hx: Other (hx uti as a child) Neurological Hx: Migraines/Headaches and Other (hx concussion as a child) Cancer HX: No Psych. 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
== END 2023-06-19 11:28 | disposition home or self-care (01) ==
LOC: HO.ACS 11:04
PROVIDERS: PCP Internal Medicine; Visit Provider Internal Medicine
DX: Z79.01 Long term (current) use of anticoagulants (principal)

== ENCOUNTER → 2023-06-19 11:04 | Outpatient (BNVA) | payer OTHER, SELFPAY | PROVIDERS: PCP Internal Medicine; Visit Provider Internal Medicine | DX: I26.99 Other pulmonary embolism without acute cor pulmonale (principal); Z79.01 Long term (current) use of anticoagulants; Z51.81 Encounter for therapeutic drug level monitoring | CPT/HCPCS: 85610; 99211 ==

== ENCOUNTER 2023-06-26 15:42 | Outpatient (REF) | payer OTHER, SELFPAY ==
[2023-06-26 15:55] LABS: MANUAL DIFF FLAG NO
[2023-06-26 16:07] LABS: Basophils Absolute Auto 0.1 X10*3/uL (0.0-0.2); Basophils Percent Auto 0.6 % (0-2); Eosinophils Absolute Auto 0.2 X10*3/uL (0.0-0.4); Eosinophils Percent Auto 1.9 % (0-4); Hematocrit 36.2 % (37.0-47.0); Hemoglobin 11.1 g/dl (12.0-16.0); Imm Gran Abs Auto 0.05 X10*3/uL (0.00-0.03); Imm Gran Pct Auto 0.4 % (0.0-0.4); Lymphocytes Absolute Auto 3.2 X10*3/uL (1.2-4.9); Lymphocytes Percent Auto 25.8 % (20-40); Mean Corpuscular HGB Conc 30.7 g/dl (31.0-35.0); Mean Corpuscular Hemoglobin 23.7 pg (27.0-33.0); Mean Corpuscular Volume 77.2 fL (80.0-98.0); Mean Platelet Volume 12.1 fL (9.4-12.3); Monocytes Absolute Auto 0.9 X10*3/uL (0.1-1.2); Monocytes Percent Auto 6.9 % (2-11); Neutrophils Percent Auto 64.4 % (45-73); Platelet Count 158 X10*3/uL (160-400); Red Blood Count 4.69 X10*6/uL (4.20-5.50); Red Cell Distribution Width 16.3 % (11.0-16.0); White Blood Count 12.4 X10*3/uL (4.8-10.8)
[2023-06-26 16:15] LABS: Estimated Average Glucose 212 mg/dL
[2023-06-26 16:35] LABS: Alanine Aminotransferase 22 U/L (0-31); Albumin Level 3.9 g/dL (3.5-5.0); Alkaline Phosphatase 96 U/L (39-117); Anion Gap 16 (12-20); Aspartate Amino Transferase 23 U/L (5-31); Bilirubin Total 0.4 mg/dL (0.0-1.0); Blood Urea Nitrogen 21 mg/dL (9-16); Calcium 9.5 mg/dL (8.4-10.2); Carbon Dioxide 24 mmol/L (22-29); Chloride 102 mmol/L (96-108); Cholesterol 138 mg/dL (<200); Estimated Glomerular Filt Rate 51; Glucose Random 109 mg/dL (60-115); HDL Cholesterol 41 mg/dL (>40); LDL Cholesterol Calculated 57 mg/dL (<100); Potassium 3.9 mmol/L (3.3-5.1); Sodium 138 mmol/L (135-145); Total Protein 7.1 g/dL (6.5-8.0); Triglycerides 201 mg/dL (<150)
[2023-06-26 17:04] LABS: Creatinine Urine 155.32 mg/dL; Microalbum/Creatinine Ratio Ur 26.3 ug/mg cr (<30)
== END 2023-06-26 15:43 | disposition home or self-care (01) ==
LOC: HO.LAB 15:42
PROVIDERS: PCP Internal Medicine; Visit Provider Internal Medicine
DX: C73 Malignant neoplasm of thyroid gland (principal); E11.65 Type 2 diabetes mellitus with hyperglycemia; E78.2 Mixed hyperlipidemia; I27.82 Chronic pulmonary embolism
CPT/HCPCS: 36415; 80053; 80061; 82043; 82570; 83036; 84443; 85025

== ENCOUNTER 2023-06-30 13:20 | Outpatient (AMB) | payer OTHER, SELFPAY ==
[2023-06-30 13:29] LABS: Prothrombin Time Whole Bld POC 32.5 sec (11.1-13.5); ~PT, ~INR - Anti Coag Clinic 2.7 (0.9-1.1)
--- NOTE | 2023-06-30 13:34 | MHC.OFFVISCO ---
Intake Intake Visit Reasons: Anticoagulation Allergies lisinopril [LISINOPRIL] Allergy (Severe, Verified 06/30/23 13:22) ANGIOEDEMA dapagliflozin [From FARXIGA] Allergy (Intermediate, Verified 06/30/23 13:22) HIVES liraglutide [From VICTOZA] Allergy (Intermediate, Verified 06/30/23 13:22) RASH metformin [METFORMIN] Allergy (Intermediate, Verified 06/30/23 13:22) GI UPSET erythromycin base [ERYTHROMYCIN BASE] Allergy (Unknown, Verified 06/30/23 13:22) UNKNOWN amitriptyline [AMITRIPTYLINE] Adverse Reaction (Intermediate, Verified 06/30/23 13:22) DRUGGED FEELING Medication List - Last Reconciled 06/30/23 by Francine Tipton RN acetaminophen ER 650 mg PO Q6H PRN albuterol sulfate 2.5 mg inhalation Q4H PRN atorvastatin 20 mg PO BEDTIME blood sugar diagnostic (FreeStyle Lite Strips) As directed cyanocobalamin (vitamin B-12) 1,000 mcg PO BEDTIME ferrous sulfate 325 mg PO MOFR@2100 glimepiride 4 mg PO BEDTIME levothyroxine 50 mcg PO BEDTIME metformin 1,000 mg PO BID Oxygen Home Use As directed Proventil HFA 90 mcg/actuation (albuterol sulfate) 2 inhalations inhalation Q6H PRN 30 days NS tirzepatide (Mounjaro) 2.5 mg (0.5 mL) subcut QWEEK valsartan-hydrochlorothiazide 320-25 mg 1 tab PO BEDTIME warfarin 5 mg See Protocol PO DAILY 30 days Nursing Note Amb to ACS using cont O2 feeling like crap sts she has her period, sts she did not have one last month LMP 04/11, sts this is the heaviest since start of warfarin sts some bloody clots Medications and supplements reviewed (recent warfarin dosing decrease) No changes in health, diet, medications, or supplements Denies any unusual signs and symptoms of bruising, bleeding Denies any new Chest pain, SOB, or clotting INR: 2.7 in therapeutic range Nutritional guidance given: greens while on menses then balance greens and reds in diet Dose: continue usual dosing;5mg x 3 days and 2.5mg x 4 days F/U INR: 1 week or sooner if needed, pt has appt with PCP after this visit Patient verbalizes understanding of instructions given with accurate read back/ teach back of dosing Anti-Coag Initial Assessment Social Hx Patient Tobacco Use Status: Never used Tobacco alcohol intake: former (socially) Alcohol intake frequency: does not drink Cardiovascular Hx: HTN Lung Disease HX: DVT/PE (pe 2020 and 2022) Endocrine Hx: Thyroid Disease (multinodular thyroid) Musculoskeletal Hx: Arthritis (neck back feet hands knees hips) Blood Disorder Hx: Anemia and Hyperlipidemia GI Hx: Ulcers, Diverticulosis and Hemorrhoids Hx: Other (hx uti as a child) Neurological Hx: Migraines/Headaches and Other (hx concussion as a child) Cancer HX: No Psych. Illness/Depression: Yes Coding Level of Care Code Est Patient Level 1 Diagnoses Current use of anticoagulant therapy Z79.01 Time Spent (min) 15 Assessment & Plan Assessment & Plan (1) Current use of anticoagulant therapy: Code(s): Z79.01 - long term care administrator (current) use of anticoagulants Category: Medical
== END 2023-06-30 13:40 | disposition home or self-care (01) ==
LOC: HO.ACS 13:20
PROVIDERS: PCP Internal Medicine; Visit Provider Internal Medicine
DX: Z79.01 Long term (current) use of anticoagulants (principal)

== ENCOUNTER → 2023-06-30 13:20 | Outpatient (BNVA) | payer OTHER, SELFPAY | PROVIDERS: PCP Internal Medicine; Visit Provider Internal Medicine | DX: I26.99 Other pulmonary embolism without acute cor pulmonale (principal); Z79.01 Long term (current) use of anticoagulants; Z51.81 Encounter for therapeutic drug level monitoring | CPT/HCPCS: 85610; 99211 ==

== ENCOUNTER 2023-07-03 15:17 | Outpatient (REF) | payer OTHER, SELFPAY | END 2023-07-03 15:18 | disposition home or self-care (01) | LOC: HO.MAMMO 15:17 | PROVIDERS: PCP Internal Medicine; Visit Provider Internal Medicine | DX: Z12.31 Encounter for screening mammogram for malignant neoplasm of breast (principal) | CPT/HCPCS: 77063; 77067 ==

== ENCOUNTER → 2023-07-03 15:20 | Outpatient (BNV) | payer OTHER, SELFPAY | PROVIDERS: PCP Internal Medicine; Visit Provider Radiology Diagnostic Radiology | DX: Z12.31 Encounter for screening mammogram for malignant neoplasm of breast (principal) | CPT/HCPCS: 77063; 77067 ==

== ENCOUNTER 2023-07-07 11:29 | Outpatient (AMB) | payer OTHER, SELFPAY ==
[2023-07-07 11:38] LABS: Prothrombin Time Whole Bld POC 41.6 sec (11.1-13.5); ~PT, ~INR - Anti Coag Clinic 3.5 (0.9-1.1)
--- NOTE | 2023-07-07 11:45 | MHC.OFFVISCO ---
Intake Intake Visit Reasons: Anticoagulation Allergies lisinopril [LISINOPRIL] Allergy (Severe, Verified 07/07/23 11:30) ANGIOEDEMA dapagliflozin [From FARXIGA] Allergy (Intermediate, Verified 07/07/23 11:30) HIVES liraglutide [From VICTOZA] Allergy (Intermediate, Verified 07/07/23 11:30) RASH metformin [METFORMIN] Allergy (Intermediate, Verified 07/07/23 11:30) GI UPSET erythromycin base [ERYTHROMYCIN BASE] Allergy (Unknown, Verified 07/07/23 11:30) UNKNOWN amitriptyline [AMITRIPTYLINE] Adverse Reaction (Intermediate, Verified 07/07/23 11:30) DRUGGED FEELING Medication List - Last Reconciled 07/07/23 by Licha Muñoz RN acetaminophen ER 650 mg PO Q6H PRN albuterol sulfate 2.5 mg inhalation Q4H PRN atorvastatin 20 mg PO BEDTIME blood sugar diagnostic (FreeStyle Lite Strips) As directed cyanocobalamin (vitamin B-12) 1,000 mcg PO BEDTIME ferrous sulfate 325 mg PO MOFR@2100 glimepiride 4 mg PO BEDTIME levothyroxine 50 mcg PO BEDTIME metformin 1,000 mg PO BID Oxygen Home Use As directed Proventil HFA 90 mcg/actuation (albuterol sulfate) 2 inhalations inhalation Q6H PRN 30 days NS tirzepatide (Mounjaro) 2.5 mg (0.5 mL) subcut QWEEK valsartan-hydrochlorothiazide 320-25 mg 1 tab PO BEDTIME warfarin 5 mg See Protocol PO DAILY 30 days Nursing Note INR 3.5? out of therapeutic range Medications and supplements reviewed Patient status: PT NOT FEELING WELL TODAY , FEELS LIKE COMING DOWN WITH SOMETHING, HAS A HEADACHE, SHE STATED SHE HAD A HEAVY FLOW 06/30/23 BETTER NOW, NOT GOING TO TAKE BCP DUE TO RISK OF CLOTTING , WILL EAT MORE GREENS AT TIME OF MENSES ENC TO GO TO ER IF ALARCON WORSENS - HAS VISUAL CHANGES, N,V,D Medications or supplements: NO CHANGES Diet: DECREASED DUE TO NOT FEELING WELL FOR A FEW DAYS Denies any signs and symptoms of bleeding or clotting or unusual bruising Bleeding, bruising, clotting discussed Nutritional guidance given: GREENS TODAY IF YOU CAN AND WEEKLY Dose: DECREASE TODAY'S DOSE TODAY TO 2.5MG THEM RESUME 5MG MWF/ 2.5MG X 4 DAYS F/U INR Date : 1 WEEK ?? WILL NEED FUTURE SURGERIES FOR HER LUNGS - DATES TO BE DETERMINED 6 PROCEDURES (3 SETS OF 2 ) OFF WAFARIN WEEKLY BACK TO BACK, PTINSTRUCTED TO HAVENAME OF PROCEDURE MD NAME AND PHONE NUMBER FOR [facility] TO CONTACT THEM FOR INSTRUCITONS Patient verbalizing understanding of instructions given. Anti-Coag Initial Assessment Social Hx Patient Tobacco Use Status: Never used Tobacco alcohol intake: former (socially) Alcohol intake frequency: does not drink Cardiovascular Hx: HTN Lung Disease HX: DVT/PE (pe 2020 and 2022) Endocrine Hx: Thyroid Disease (multinodular thyroid) Musculoskeletal Hx: Arthritis (neck back feet hands knees hips) Blood Disorder Hx: Anemia and Hyperlipidemia GI Hx: Ulcers, Diverticulosis and Hemorrhoids Hx: Other (hx uti as a child) Neurological Hx: Migraines/Headaches and Other (hx concussion as a child) Cancer HX: No Psych. Illness/Depression: Yes Coding Level of Care Code Est Patient Level 1 Diagnoses Current use of anticoagulant therapy Z79.01 Assessment & Plan Assessment & Plan (1) Current use of anticoagulant therapy: Code(s): Z79.01 - residential (current) use of anticoagulants Category: Medical
== END 2023-07-07 11:52 | disposition home or self-care (01) ==
LOC: HO.ACS 11:29
PROVIDERS: PCP Internal Medicine; Visit Provider Internal Medicine
DX: Z79.01 Long term (current) use of anticoagulants (principal)

== ENCOUNTER → 2023-07-07 11:29 | Outpatient (BNVA) | payer OTHER, SELFPAY | PROVIDERS: PCP Internal Medicine; Visit Provider Internal Medicine | DX: I26.99 Other pulmonary embolism without acute cor pulmonale (principal); I51.81 Takotsubo syndrome; Z79.01 Long term (current) use of anticoagulants | CPT/HCPCS: 85610; 99211 ==

== ENCOUNTER 2023-07-15 10:54 | Outpatient (AMB) | payer OTHER, SELFPAY ==
[2023-07-15 11:14] LABS: Prothrombin Time Whole Bld POC 49.9 sec (11.1-13.5); ~PT, ~INR - Anti Coag Clinic 4.2 (0.9-1.1)
--- NOTE | 2023-07-15 11:26 | MHC.OFFVISCO ---
Intake Intake Visit Reasons: Anticoagulation Allergies lisinopril [LISINOPRIL] Allergy (Severe, Verified 07/15/23 11:03) ANGIOEDEMA dapagliflozin [From FARXIGA] Allergy (Intermediate, Verified 07/15/23 11:03) HIVES liraglutide [From VICTOZA] Allergy (Intermediate, Verified 07/15/23 11:03) RASH metformin [METFORMIN] Allergy (Intermediate, Verified 07/15/23 11:03) GI UPSET erythromycin base [ERYTHROMYCIN BASE] Allergy (Unknown, Verified 07/15/23 11:03) UNKNOWN amitriptyline [AMITRIPTYLINE] Adverse Reaction (Intermediate, Verified 07/15/23 11:03) DRUGGED FEELING Medication List - Last Reconciled 07/15/23 by Licha Muñoz RN acetaminophen ER 650 mg PO Q6H PRN albuterol sulfate 2.5 mg inhalation Q4H PRN atorvastatin 20 mg PO BEDTIME blood sugar diagnostic (FreeStyle Lite Strips) As directed cyanocobalamin (vitamin B-12) 1,000 mcg PO BEDTIME ferrous sulfate 325 mg PO MOFR@2100 glimepiride 4 mg PO BEDTIME levothyroxine 50 mcg PO BEDTIME metformin 1,000 mg PO BID Oxygen Home Use As directed Proventil HFA 90 mcg/actuation (albuterol sulfate) 2 inhalations inhalation Q6H PRN 30 days NS tirzepatide (Mounjaro) 2.5 mg (0.5 mL) subcut QWEEK valsartan-hydrochlorothiazide 320-25 mg 1 tab PO BEDTIME warfarin 5 mg See Protocol PO DAILY 30 days Nursing Note PT TO HAVE B[facility] PULMONDARY ANGIOPLASTY WITH POSSIBLE ADDITIONAL VESSELS AUG 04 AND Aug MOST LIKELY WILL BE HOLDING WARFARIN 5 DAYS BEFOR AND BRIDGING WITH LOVENOX, IT IS POSSIBLE SHE MAY NOT START WARFARIN IN BETWEEN PROCEDURES AND STAY ON LOVENOX, WILL INQUIRE WITH SURGEON AND DR GARRIDO SHE HAS FACTOR V INR 4.2 out of therapeutic range Medications and supplements reviewed Patient status: RECENTLY ATE MORE HOLLOWEEN CANDY, STARTED MOUNJARO A MONTH AGO - MAY BE EFFECTING THE INR HAS THYROID NODULES - MAY ALSO EFFECT THE INR Medications or supplements: NO CHANGES Diet: GOOG Denies any signs and symptoms of bleeding or clotting or unusual bruising Bleeding, bruising, clotting discussed Nutritional guidance given: COOKED GREENS CAN LOWER YOUR INR MORE THAN RAW, EAT COOKED GREENS WEEKLY AND REVIEW FOOD LIST WEEKLY Dose: HOLD DOSE TODAY THEN DECREASE WEEKLY DOSE 5MG X 2 DAYS/ 2.5MG X DAYS F/U INR Date : 1 WEEK - SAME DAY OF 3 OTHER APPTS?? Patient verbalizing understanding of instructions given. Anti-Coag Initial Assessment Social Hx Patient Tobacco Use Status: Never used Tobacco alcohol intake: former (socially) Alcohol intake frequency: does not drink Cardiovascular Hx: HTN Lung Disease HX: DVT/PE (pe 2020 and 2022) Endocrine Hx: Thyroid Disease (multinodular thyroid) Musculoskeletal Hx: Arthritis (neck back feet hands knees hips) Blood Disorder Hx: Anemia and Hyperlipidemia GI Hx: Ulcers, Diverticulosis and Hemorrhoids Hx: Other (hx uti as a child) Neurological Hx: Migraines/Headaches and Other (hx concussion as a child) Cancer HX: No Psych. Illness/Depression: Yes Coding Level of Care Code Est Patient Level 1 Diagnoses Current use of anticoagulant therapy Z79.01 Assessment & Plan Assessment & Plan (1) Current use of anticoagulant therapy: Code(s): Z79.01 - [facility] (current) use of anticoagulants Category: Medical
== END 2023-07-15 12:22 | disposition home or self-care (01) ==
LOC: HO.ACS 10:54
PROVIDERS: PCP Internal Medicine; Visit Provider Internal Medicine
DX: Z79.01 Long term (current) use of anticoagulants (principal)

== ENCOUNTER → 2023-07-15 10:54 | Outpatient (BNVA) | payer OTHER, SELFPAY | PROVIDERS: PCP Internal Medicine; Visit Provider Internal Medicine | DX: I26.99 Other pulmonary embolism without acute cor pulmonale (principal); Z79.01 Long term (current) use of anticoagulants; Z51.81 Encounter for therapeutic drug level monitoring | CPT/HCPCS: 85610; 99211 ==

== ENCOUNTER 2023-07-18 13:05 | Outpatient (AMB) | payer OTHER, SELFPAY ==
[2023-07-18 13:10] VITALS: BMI 51.3
--- NOTE | 2023-07-18 13:10 | MHC.AMNUTRGE ---
Intake VS Expanded 07/18/23 13:10 Height 5 ft 5 in Weight 308 lb 6.827 oz BMI 51.3 Intake Visit Reasons: DM Allergies lisinopril [LISINOPRIL] Allergy (Severe, Verified 07/28/23 11:39) ANGIOEDEMA dapagliflozin [From FARXIGA] Allergy (Intermediate, Verified 07/28/23 11:39) HIVES liraglutide [From VICTOZA] Allergy (Intermediate, Verified 07/28/23 11:39) RASH metformin [METFORMIN] Allergy (Intermediate, Verified 07/28/23 11:39) GI UPSET erythromycin base [ERYTHROMYCIN BASE] Allergy (Unknown, Verified 07/28/23 11:39) UNKNOWN amitriptyline [AMITRIPTYLINE] Adverse Reaction (Intermediate, Verified 07/28/23 11:39) DRUGGED FEELING HPI Nutrition Presentation Details Pt presents for MNT for T2DM . Pt was referred by Dr. Lovelace, package line relief operator. Typical meal intake B: bowl of cereal with milk or toast with butter , water snack: fruits/water, cheese,skips D: rice/corn , water Fish not including fruit 1-2 /d yogurt/milk: 0-3 serving/d vegetables: 2 x/wk (frozen milk physical activity: daily life /house work smoking: denies alcohol : denies BUY-Lbhtenq-Pf.Jeor Equation Height 5 ft 5 in Weight 308 lb Resting Metabolic Rate 2030.38 Calculated Activity Level Sedentary Calories Needed to Maintain Weight 2436.46 Most Recent Diabetes Results: Creatinine 1.43 mg/dL (0.5-1.4) H 07/23/23 Blood Urea Nitrogen 22 mg/dL (9-16) H 07/23/23 Sodium 140 mmol/L (135-145) 07/23/23 Potassium 3.4 mmol/L (3.3-5.1) 07/23/23 Chloride 104 mmol/L (96-108) 07/23/23 Carbon Dioxide 25 mmol/L (22-29) 07/23/23 Calcium 9.2 mg/dL (8.4-10.2) 07/23/23 [facility] Medical History (Updated 07/24/23 @ 20:46 by Odilon Land MD) Hypercoagulable state Thyroid cancer Chronic thromboembolic disease Lower extremity edema Multinodular thyroid Family history of deep venous thrombosis Pleuritic chest pain Pulmonary emboli Dyspnea Dyspareunia in female Anemia Obstructive sleep apnea Morbid obesity History of COVID-19 (~2020) History of pulmonary embolus (PE) (~2020) Anxiety Chronic headaches Dyspnea on exertion Diabetes type 2, controlled Hypothyroid HTN (hypertension) Hyperlipidemia Surgical History History of surgery on right wrist History of foot surgery History of tubal ligation History of carpal tunnel surgery History of ERCP History of laparoscopic cholecystectomy History of surgery Family History Father Myocardial infarction COPD (chronic obstructive pulmonary disease) Mother COPD (chronic obstructive pulmonary disease) Brother Colitis Social History Housing: House Alcohol intake: former (socially) Patient Tobacco Use Status: Never used Tobacco service: No Current occupational status: employed 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 Current occupational exposures/hazards: No Assessment & Plan Assessment & Plan (1) T2DM (type 2 diabetes mellitus): Code(s): E11.9 - Type 2 diabetes mellitus without complications Plan: Pt has nutrition related knowledge deficit related to DM as evidenced by food recall and knowledge deficit of diet wt: 140 kg Est kcal needs as per MSJ: 2400 (40% carb, 30% protein/fat) Est fluid needs as per 25-30 ml/d: 4200 mL Est prot per day as per 1 g/kg bw: 140 Recommend fiber intake : 8-10 g per day and gradually increase to 25-28 g per day for women and 35-38 g for men or as tolerated Recommend sodium intake per day : less than 2000 mg Educated patient on: ( R = reviewed V = verbalizes understanding N/R = needs review N/A = not applicable Food sources of carbohydrate, adequate serving sizes and its role in various health conditions: R Differences between complex carbohydrates a simple carbohydrates, role of fiber in diet: R Differences between types of fats and role in diet (mono on saturated fat fatty acids, saturated fatty acids, trans fats): R Food sources of sodium in salt and healthy modifications for heart health in kidney health: NR Vitamins and minerals: NR Healthy plate method concept: R Physical activity: Benefits a precaution: R Hypoglycemia protocol (rule of 15): R Dietary prevention of Hyperglycemia: R Patient Instructions: Include lean protein food in your meals at least 5-6 oz at dinner Practice mindful eating drink water with meals aim at 8-10 cups per day for now Coding Level of Care Code Nutr Indiv Intake (03324) Diagnoses T2DM (type 2 diabetes mellitus) E11.9 Time Spent (min) 30
[2023-07-28 14:39] VITALS: BMI 51.2
== END 2023-07-18 13:47 | disposition home or self-care (01) ==
PROVIDERS: PCP Internal Medicine; Visit Provider Dietitian, Registered
DX: E11.9 Type 2 diabetes mellitus without complications (principal)

== ENCOUNTER → 2023-07-18 13:05 | Outpatient (BNVA) | payer OTHER, SELFPAY | PROVIDERS: PCP Internal Medicine; Visit Provider Dietitian, Registered | DX: E11.9 Type 2 diabetes mellitus without complications (principal) | CPT/HCPCS: 97802 ==

== ENCOUNTER → 2023-07-23 10:21 | Outpatient (REF) | payer OTHER, SELFPAY ==
--- NOTE | 2023-07-23 11:24 | ECG_ITS ---
Test Reason : PREOP Blood Pressure : / mmHG Vent. Rate : 088 BPM Atrial Rate : 088 BPM P-R Int : 166 ms QRS Dur : 092 ms QT Int : 356 ms P-R-T Axes : 051 -09 019 degrees QTc Int : 430 ms Normal sinus rhythm Normal ECG When compared with ECG of 14-MAY-2023 12:33, No significant change was found Referred By: Nick Saldivar Electronically Signed By:KAYLEE ASHLEY MD
[2023-07-23 11:30] LABS: MANUAL DIFF FLAG NO
[2023-07-23 12:08] LABS: Basophils Absolute Auto 0.1 X10*3/uL (0.0-0.2); Basophils Percent Auto 0.9 % (0-2); Eosinophils Absolute Auto 0.3 X10*3/uL (0.0-0.4); Eosinophils Percent Auto 2.5 % (0-4); Hematocrit 36.7 % (37.0-47.0); Imm Gran Abs Auto 0.04 X10*3/uL (0.00-0.03); Imm Gran Pct Auto 0.4 % (0.0-0.4); Lymphocytes Absolute Auto 2.7 X10*3/uL (1.2-4.9); Lymphocytes Percent Auto 25.8 % (20-40); Mean Corpuscular Volume 76.6 fL (80.0-98.0); Mean Platelet Volume 12.1 fL (9.4-12.3); Monocytes Absolute Auto 0.8 X10*3/uL (0.1-1.2); Monocytes Percent Auto 7.3 % (2-11); Neutrophils Absolute Auto 6.7 x10*3/uL (2.0-8.3); Neutrophils Percent Auto 63.1 % (45-73); Platelet Count 136 X10*3/uL (160-400); Red Blood Count 4.79 X10*6/uL (4.20-5.50); Red Cell Distribution Width 15.9 % (11.0-16.0); White Blood Count 10.5 X10*3/uL (4.8-10.8)
[2023-07-23 12:28] LABS: INTERNATIONAL NORM RATIO 3.5 (0.9-1.1); Prothrombin Time 42.1 SEC (11.1-13.3)
[2023-07-23 12:55] LABS: Anion Gap 14 (12-20); Blood Urea Nitrogen 22 mg/dL (9-16); Calcium 9.2 mg/dL (8.4-10.2); Carbon Dioxide 25 mmol/L (22-29); Chloride 104 mmol/L (96-108); Estimated Glomerular Filt Rate 39; Glucose Random 183 mg/dL (60-115); Potassium 3.4 mmol/L (3.3-5.1); Sodium 140 mmol/L (135-145)
[2023-07-30 13:38] LABS: NT-proBNP 49 pg/mL (<125)
== END ==
LOC: HO.CARD 10:21
PROVIDERS: PCP Internal Medicine; Visit Provider Internal Medicine Pulmonary Disease
DX: I27.24 Chronic thromboembolic pulmonary hypertension (principal); R06.02 Shortness of breath; I26.99 Other pulmonary embolism without acute cor pulmonale; R06.00 Dyspnea, unspecified; E04.2 Nontoxic multinodular goiter; I74.9 Embolism and thrombosis of unspecified artery; C73 Malignant neoplasm of thyroid gland; G47.33 Obstructive sleep apnea (adult) (pediatric)
CPT/HCPCS: 36415; 80048; 83880; 85025; 85610; 93005; 99212

== ENCOUNTER 2023-07-23 10:33 | Outpatient (AMB) | payer OTHER, SELFPAY ==
[2023-07-23 10:37] VITALS: PULSE 89; O2SAT 96; BMI 48.8
--- NOTE | 2023-07-23 10:37 | MHC.OFFVIS ---
Intake Vital Signs 07/23/23 10:37 Height 5 ft 5 in Weight 293 lb 2 oz BMI 48.8 Pulse 89 Pulse Source Pulse Oximeter Pulse Oximetry (%) 96 Oxygen Delivery Method Room Air Comment 2 Liters Oxygen([employer]) Intake Visit Reasons: Follow up PE Business Relationship Manager Required: No Allergies lisinopril [LISINOPRIL] Allergy (Severe, Verified 07/23/23 11:04) ANGIOEDEMA dapagliflozin [From FARXIGA] Allergy (Intermediate, Verified 07/23/23 11:04) HIVES liraglutide [From VICTOZA] Allergy (Intermediate, Verified 07/23/23 11:04) RASH metformin [METFORMIN] Allergy (Intermediate, Verified 07/23/23 11:04) GI UPSET erythromycin base [ERYTHROMYCIN BASE] Allergy (Unknown, Verified 07/23/23 11:04) UNKNOWN amitriptyline [AMITRIPTYLINE] Adverse Reaction (Intermediate, Verified 07/23/23 11:04) DRUGGED FEELING HPI HPI Comments History of Present Illness Details The patient is a 47-year-old woman with a known history of pulmonary emboli currently on Eliquis presenting with worsening dyspnea symptoms. Patient complains of dyspnea on exertion. Moderate severity. denies any wheezing or coughing. The patient does not have any respiratory inhalers at this time. She denies any wheezing although she does have chest tightness. In addition to that the patient does have daytime drowsiness. Her [place] score is elevated 12/24. The patient does have cardiovascular risk factors. Patient needs to undergo home sleep study this time. We did review imaging studies that we have available including a CT scan of the chest angiogram ruling out pulmonary embolism in the spring. the lung parenchyma is also within normal limits which is reassuring. 08/16/2022 the patient is here for a pulmonary follow-up visit. The patient overall has been feeling relatively well. She still has some daytime drowsiness. Her [place] score is elevated 9/24. The patient did have a sleep study done. Appears that she was sleeping the most part on her back and she had a mild degree of sleep apnea with an AHI just above 5. her sleep apnea was less severe when she laid on her sides. Therefore she wants to try positional therapy for now. If she does not improved after positional therapy then can consider CPAP therapy. The patient also continues on the Eliquis. She is tolerating it well. No minor major bleeding noted. she did undergo pulmonary function studies personally by me demonstrating an isolated moderate diffusion impairment. We did talk about potentially chronic thromboembolic disease could result in this presentation. But she is also anemic and that can also result in the diffusing impairment as well. She is currently on iron. 10/25/2022 the patient is here for pulmonary follow-up visit. The patient has been complaining of increasing shortness of breath. Moderate severity. Also complaining of right-sided pleuritic chest pain. She went to the gym yesterday and she got short of breath and also felt dizzy. She did undergo blood work which we reviewed. She has an elevated white count in addition to a left shift suggesting an infectious process. On further questioning she has been coughing more recently. In addition to that she does complaint of that pleuritic discomfort. She did have blood work which we debrided reviewed together. White count is elevated consistent with an infectious process. In addition to that her D-dimer is elevated. On further questioning she is not taking her Eliquis correctly. She is only doing it daily. With her elevated D-dimer in the pleuritic chest pain in a history of previous blood clots the patient needs to get a repeat CT scan of the chest PE protocol. Will request 1 at this time. However, being Friday if the patient develops any worsening symptoms she should go to the ER. 01/09/2023 the patient is here for a pulmonary follow-up visit. The patient still having shortness of breath even after being hospitalized. She did increase her Eliquis medication to twice a day. The patient still has significant shortness of breath with minimal activity moderate severity. She complains of chest discomfort. She is wondering if the Eliquis is working. She did follow-up with her oncologist. It appears that she does have factor 5 Leiden putting her risk for blood clots and also her family. She needs to make sure the family is aware of this had artery disease. We did taken for walking oximetry the patient did desaturate down to 87% with activity and she was also tachycardic to 130. I am concerned that she may have at this point chronic thromboembolic disease. Will go ahead and order a V/Q scan and switch over to Coumadin. If the patient continues to have blood clots even after that will have to consider a referral to [facility]. 02/06/2023 The patient is here for a follow up visit. Switched over to coumadin. But, then ended up with a tooth infection and placed on abx. Started developing headaches and blurry vision. She had her INR check and it was critically high 6.8. She is using the oxygen with good effect. Has an ECHO scheduled for next week. We will plan to repeat her VQ scan in 6-8 weeks, if no better, then will need a referral to [facility] for CTED. In the meantime, I did call the ED triage and took her to the ED to assess for an acute bleed for the supra therapeutic INR. 07/23/2023 the patient is here for a pulmonary follow-up visit. The patient continues to be about the same. Still having shortness of breath with activity. The oxygen has been affecting beneficial. She continues on the Coumadin. Her Coumadin levels continue to fluctuate. The patient did go to [facility]. Chief deemed high risk for the pulmonary artery enterectomy therefore, the patient will undergo angioplasty. Will be broken up in about 3-4 procedures. She will have to switch over to Lovenox intermittently for the procedures. Will going to go ahead and work with the Coumadin clinic in order to do so effectively. She will continue with the oxygen for now. The patient also has to follow-up with her surgeon for the abnormal findings of the thyroid but that can hold and wait until she is stable from a pulmonary standpoint. She continues to work with her equalizing saw operator regarding her diabetes which appears to be better. She will continue with current therapy. Will follow-up in a couple months after she has completed with her angioplasty and perform a 6 minutes walk test to see if we can titrate her down to a conserving device in order for her to have an easier time caring the oxygen. We can also consider the use of vasodilators very therapy. Will discuss that further with [facility]. [facility] Medical History (Updated 07/24/23 @ 20:46 by Odilon Land MD) Hypercoagulable state Thyroid cancer Chronic thromboembolic disease Lower extremity edema Multinodular thyroid Family history of deep venous thrombosis Pleuritic chest pain Pulmonary emboli Dyspnea Dyspareunia in female Anemia Obstructive sleep apnea Morbid obesity History of COVID-19 (~2020) History of pulmonary embolus (PE) (~2020) Anxiety Chronic headaches Dyspnea on exertion Diabetes type 2, controlled Hypothyroid HTN (hypertension) Hyperlipidemia Surgical History History of surgery on right wrist History of foot surgery History of tubal ligation History of carpal tunnel surgery History of ERCP History of laparoscopic cholecystectomy History of surgery Family History Father Myocardial infarction COPD (chronic obstructive pulmonary disease) Mother COPD (chronic obstructive pulmonary disease) Brother Colitis Social History Housing: House Alcohol intake: former (socially) Patient Tobacco Use Status: Never used Tobacco service: No Current occupational status: employed 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 Current occupational exposures/hazards: No Review of Systems Const Denies chills, Reports daytime sleepiness, Reports difficulty sleeping, Denies fever(s), Denies frequent falls, Reports headache(s), Denies night sweats, Reports snoring and Denies weight loss Eyes Reports blurry vision, Reports change in vision and Reports eye pain ENT Reports dizziness and Reports headache(s) Card Reports chest pain, Denies chest pain at rest, Denies chest pain with activity, Denies irregular heart rhythm, Denies claudication, Reports leg edema, Denies palpitations and Reports dyspnea on exertion Resp Denies cough, Denies pain on inspiration, Denies pain with cough, Reports dyspnea on exertion and Reports snoring Musc Reports deformity, Reports arthralgias, Reports joint swelling, Denies limited range of motion and Reports stiffness Neuro Reports dizziness, Denies frequent falls and Reports headache(s) Endo Denies palpitations Physical Exam Vital Signs: Last Vital Signs Pulse 89 07/23/23 10:37 Pulse Ox 96 07/23/23 10:37 Oxygen Delivery Method Room Air 07/23/23 10:37 BMI result Body Mass Index 48.8 Const General: cooperative, healthy appearing, no acute distress and alert Orientation/consciousness: oriented to person, oriented to place and oriented to time Limitations: no limitations HEENT Head: Yes normal to inspection, Yes normocephalic and Yes atraumatic Mouth: moist mucous membranes Eyes Sclerae: sclerae normal Neck Neck: Yes normal visual inspection Chest Chest palpation & inspection: normal inspection of the chest Resp Effort & Inspection: normal respiratory effort and able to speak in complete sentences Auscultation: no wheezes and diminished lung sounds Cardio Jugular venous distension: no JVD Rate: regular rate Rhythm: regular rhythm Heart sounds: S1 normal heart sound present and S2 normal heart sound present GI Inspection: Yes normal to inspection Skin General skin exam: no rashes or lesions noted Neuro General: oriented to person, oriented to place, oriented to time and moves all extremities Gait exam (Neuro): Antalgic gait present Motor exam (neuro): 5/5 motor strength present throughout Extrem General: Yes no clubbing, cyanosis or edema Right lower extremity: knee Details: abnormal to inspection, tenderness Location: of the patella and of the lateral joint line, abnormal ROM, crepitus Location: at the kneww, deformity and warmth; no swelling and no ecchymosis Left lower extremity: knee Details: abnormal to inspection, tenderness, abnormal ROM, crepitus, deformity and warmth; no swelling and no ecchymosis Psych Appearance: grossly normal Mental Status: mental status grossly normal Speech and movement: Normal speech and movement present and Clear speech present Affect: normal affect Attitude: cooperative Thought process: Normal thought process present Thought content: Normal thought content present Insight: Good insight present (Psych) Judgement: Good judgement present (Psych) Results AMB INR Fingerstick AMB INR Fingerstick 3.8 Last Edit by Linh Mcnulty RN on 07/23/23 11:16 Assessment & Plan Assessment & Plan (1) Dyspnea: Code(s): R06.00 - Dyspnea, unspecified Qualifiers: Dyspnea type: dyspnea on exertion Qualified Code(s): R06.09 - Other forms of dyspnea (2) SERA (obstructive sleep apnea): Code(s): G47.33 - Obstructive sleep apnea (adult) (pediatric) (3) Bilateral pulmonary embolism: Code(s): I26.99 - Other pulmonary embolism without acute cor pulmonale (4) Lower extremity edema: Code(s): R60.0 - Localized edema (5) Multinodular thyroid: Code(s): E04.2 - Nontoxic multinodular goiter (6) Chronic thromboembolic disease: Code(s): I74.9 - Embolism and thrombosis of unspecified artery (7) Thyroid cancer: Code(s): C73 - Malignant neoplasm of thyroid gland Plan Awaiting PA angioplasty continue Coumadin, will need to transition to Lovenox continue Symbicort Coumadin clinic continue oxygen 2L with activity LORRIE as needed F/U 3 months with 6MWT Coding Level of Care Code Est Pt Level 4 (22012) Diagnoses Dyspnea on exertion R06.09 Dyspnea type: dyspnea on exertion SERA (obstructive sleep apnea) G47.33 Bilateral pulmonary embolism I26.99 Lower extremity edema R60.0 Multinodular thyroid E04.2 Chronic thromboembolic disease I74.9 Thyroid cancer C73 Time Spent (min) 17
== END 2023-07-23 11:18 | disposition home or self-care (01) ==
PROVIDERS: PCP Internal Medicine; Visit Provider Hospitalist
DX: R06.09 Other forms of dyspnea (principal); G47.33 Obstructive sleep apnea (adult) (pediatric); I26.99 Other pulmonary embolism without acute cor pulmonale; R60.0 Localized edema; E04.2 Nontoxic multinodular goiter; I74.9 Embolism and thrombosis of unspecified artery; C73 Malignant neoplasm of thyroid gland
CPT/HCPCS: 99214

== ENCOUNTER 2023-07-23 10:54 | Outpatient (AMB) | payer OTHER, SELFPAY ==
--- NOTE | 2023-07-23 11:16 | MHC.OFFVISCO ---
Intake Intake Visit Reasons: Anticoagulation Allergies lisinopril [LISINOPRIL] Allergy (Severe, Verified 07/23/23 11:04) ANGIOEDEMA dapagliflozin [From FARXIGA] Allergy (Intermediate, Verified 07/23/23 11:04) HIVES liraglutide [From VICTOZA] Allergy (Intermediate, Verified 07/23/23 11:04) RASH metformin [METFORMIN] Allergy (Intermediate, Verified 07/23/23 11:04) GI UPSET erythromycin base [ERYTHROMYCIN BASE] Allergy (Unknown, Verified 07/23/23 11:04) UNKNOWN amitriptyline [AMITRIPTYLINE] Adverse Reaction (Intermediate, Verified 07/23/23 11:04) DRUGGED FEELING Medication List - Last Reconciled 07/23/23 by Linh Mcnulty RN acetaminophen ER 650 mg PO Q6H PRN albuterol sulfate 2.5 mg inhalation Q4H PRN atorvastatin 20 mg PO BEDTIME blood sugar diagnostic (FreeStyle Lite Strips) As directed cyanocobalamin (vitamin B-12) 1,000 mcg PO BEDTIME ferrous sulfate 325 mg PO MOFR@2100 glimepiride 4 mg PO BEDTIME levothyroxine 50 mcg PO BEDTIME metformin 1,000 mg PO BID nebulizers As directed Oxygen Home Use As directed Proventil HFA 90 mcg/actuation (albuterol sulfate) 2 inhalations inhalation Q6H PRN 30 days NS tirzepatide (Mounjaro) 2.5 mg (0.5 mL) subcut QWEEK valsartan-hydrochlorothiazide 320-25 mg 1 tab PO BEDTIME warfarin 5 mg See Protocol PO DAILY 30 days Nursing Note INR 3.8-?? out of therapeutic range of 2-3 Medications and supplements reviewed Patient status: pt scheduled for balloon pulm angioplasties on 08/04/23 and 08/11/23. last dose of warfarin on 07/29/23 and pt will bridge with lovenox. pt will stay on lovenox until next procedure. Medications or supplements: no changes Diet: same Denies any signs and symptoms of bleeding or clotting or unusual bruising Bleeding, bruising, clotting discussed Nutritional guidance given: eat greens to lower inr, no reds Dose: hold warfarin today, cont lower dosing 5mg x 2, 2.5mg x 5 F/U INR Date : 07/28/23? Patient verbalizing understanding of instructions given. pt on cont oxygen. states took tylenol for headache- enc to increase greens with tylenol usage. written instructions for lovenox bridging given to pt and reviewed composed note dr salazar Anti-Coag Initial Assessment Social Hx Patient Tobacco Use Status: Never used Tobacco alcohol intake: former (socially) Alcohol intake frequency: does not drink Cardiovascular Hx: HTN Lung Disease HX: DVT/PE (pe 2020 and 2022) Endocrine Hx: Thyroid Disease (multinodular thyroid) Musculoskeletal Hx: Arthritis (neck back feet hands knees hips) Blood Disorder Hx: Anemia and Hyperlipidemia GI Hx: Ulcers, Diverticulosis and Hemorrhoids Hx: Other (hx uti as a child) Neurological Hx: Migraines/Headaches and Other (hx concussion as a child) Cancer HX: No Psych. Illness/Depression: Yes Coding Level of Care Code Est Patient Level 2 Diagnoses Current use of anticoagulant therapy Z79.01 Results AMB INR Fingerstick AMB INR Fingerstick 3.8 Last Edit by Linh Mcnulty RN on 07/23/23 11:16 Assessment & Plan Assessment & Plan (1) Current use of anticoagulant therapy: Code(s): Z79.01 - [facility] (current) use of anticoagulants Category: Medical
[2023-07-24 13:34] LABS: Prothrombin Time Whole Bld POC 46.2 sec (11.1-13.5); ~PT, ~INR - Anti Coag Clinic 3.8 (0.9-1.1)
== END 2023-07-23 11:32 | disposition home or self-care (01) ==
LOC: HO.ACS 10:54
PROVIDERS: PCP Internal Medicine; Visit Provider Internal Medicine
DX: Z79.01 Long term (current) use of anticoagulants (principal)

== ENCOUNTER 2023-07-28 11:26 | Outpatient (AMB) | payer OTHER, SELFPAY ==
[2023-07-28 11:49] LABS: Prothrombin Time Whole Bld POC 30.8 sec (11.1-13.5); ~PT, ~INR - Anti Coag Clinic 2.6 (0.9-1.1)
--- NOTE | 2023-07-28 12:02 | MHC.OFFVISCO ---
Intake Intake Visit Reasons: Anticoagulation Allergies lisinopril [LISINOPRIL] Allergy (Severe, Verified 07/28/23 11:39) ANGIOEDEMA dapagliflozin [From FARXIGA] Allergy (Intermediate, Verified 07/28/23 11:39) HIVES liraglutide [From VICTOZA] Allergy (Intermediate, Verified 07/28/23 11:39) RASH metformin [METFORMIN] Allergy (Intermediate, Verified 07/28/23 11:39) GI UPSET erythromycin base [ERYTHROMYCIN BASE] Allergy (Unknown, Verified 07/28/23 11:39) UNKNOWN amitriptyline [AMITRIPTYLINE] Adverse Reaction (Intermediate, Verified 07/28/23 11:39) DRUGGED FEELING Medication List - Last Reconciled 07/28/23 by Francine Tipton RN acetaminophen ER 650 mg PO Q6H PRN albuterol sulfate 2.5 mg inhalation Q4H PRN atorvastatin 20 mg PO BEDTIME blood sugar diagnostic (FreeStyle Lite Strips) As directed cyanocobalamin (vitamin B-12) 1,000 mcg PO BEDTIME enoxaparin (Lovenox) 100 mg See Protocol subcut Q12H 14 days ferrous sulfate 325 mg PO MOFR@2100 glimepiride 4 mg PO BEDTIME levothyroxine 50 mcg PO BEDTIME metformin 1,000 mg PO BID nebulizers As directed Oxygen Home Use As directed Proventil HFA 90 mcg/actuation (albuterol sulfate) 2 inhalations inhalation Q6H PRN 30 days NS tirzepatide (Mounjaro) 2.5 mg (0.5 mL) subcut QWEEK valsartan-hydrochlorothiazide 320-25 mg 1 tab PO BEDTIME warfarin 5 mg See Protocol PO DAILY 30 days Nursing Note Amb to [facility] feeling ok, sts she has s cold, some congestion not wearing O2 it ran out no noted resp distress or SOB Medications and supplements reviewed No changes in health, diet, medications, or supplements SCHEDULED FOR ANGIOPLASTICS PROCEDURE TO REMOVE BLOODCLOTS FROM LUNGS ON 08/04 AND 08/11 AT [facility] WARFARIN HOLD AND LOVENOX BRIDGE, WILL NOT BE RESUMING WARFARIN AFTER 08/04 PROCEDURE WILL CONTINUE LOVENOX PER SURGEON DWAIN AND INSTRUCTION PRE PROCEDURE PT WILL HAVE LAST DOSE WARFARIN SUNDAY 07/29, START LOVENOX 07/31 IN THE AM WITH LAST DOSE LOVENOX FRIDAY 08/03 AM ONLY PT STS SHE WILL BE STAYING IN OVERNIGHT AFTER EACH PROCEDURE, RESUMING LOVENOX AND OR WARFARIN PER SURGEON Denies any unusual signs and symptoms of bruising, bleeding Denies any new Chest pain, SOB, or clotting INR:2.8 in therapeutic range Nutritional guidance given: when resuming warfarin no greens until seen Dose: as outlined above and paperwork given with usual dosing pattern written for a reference for [facility] (5mg on Friday and , 2.5mg all other days); F/U INR: here 08/15 Patient verbalizes understanding of instructions given with accurate read back/ teach back of dosing Anti-Coag Initial Assessment Social Hx Patient Tobacco Use Status: Never used Tobacco alcohol intake: former (socially) Alcohol intake frequency: does not drink Cardiovascular Hx: HTN Lung Disease HX: DVT/PE (pe 2020 and 2022) Endocrine Hx: Thyroid Disease (multinodular thyroid) Musculoskeletal Hx: Arthritis (neck back feet hands knees hips) Blood Disorder Hx: Anemia and Hyperlipidemia GI Hx: Ulcers, Diverticulosis and Hemorrhoids Hx: Other (hx uti as a child) Neurological Hx: Migraines/Headaches and Other (hx concussion as a child) Cancer HX: No Psych. Illness/Depression: Yes Questionnaires HAS-BLED Does the patient had uncontrolled Hypertension?: No Does the patient have renal disease?: No Does the patient have liver disease?: No Does the patient have a history of stroke?: No Has the patient had major bleeding or predisposition to bleeding?: No Does the patient have labile INRs?: Yes Is the patient over 65 years of age?: No Is the patient on medications that gives them a predisposition to bleeding?: Yes Does the patient use alcohol?: No HAS-BLED Score: 2 CHADSVASC Age: <65 Gender: Female Does the patient have a history of CHF?: No Does the patient have a history of Hypertension?: Yes Does the patient have a history of Stroke/TIA/Thromboembolism?: Yes Does the patient have a history of Vascular Disease (prior NH, PAD or aortic plaque)?: No Does the patient have a history of Diabetes?: Yes CHADS VACS Score: 5 Kodak Prediction Score Rsk VTE Active Cancer: No Previous VTE, excluding superficial vein thrombosis: Yes Reduced mobility: No Already known Thrombophilic Condition: Yes With-in last month Trauma and/or Surgery: Yes Elderly 70 year or older: No Heart and/or Respiratory Failure: No Acute Myocardial infarction and/or Ischemic Stroke: No Acute Infection and/or Rheumatologic Disorder: No Obesity (BMI 30 or greater): Yes Ongoing Hormonal Treatment: No Score: 9 Kodak Score less than 4; Low Risk of VTE Kodak Score 4 or greater; High Risk of VTE Coding Level of Care Code Est Patient Level 1 Time Spent (min) 15
== END 2023-07-28 12:36 | disposition home or self-care (01) ==
LOC: HO.ACS 11:26
PROVIDERS: PCP Internal Medicine; Visit Provider Internal Medicine
DX: Z79.01 Long term (current) use of anticoagulants (principal)

== ENCOUNTER → 2023-07-28 11:26 | Outpatient (BNVA) | payer OTHER, SELFPAY | PROVIDERS: PCP Internal Medicine; Visit Provider Internal Medicine | DX: I26.99 Other pulmonary embolism without acute cor pulmonale (principal); Z79.01 Long term (current) use of anticoagulants; Z51.81 Encounter for therapeutic drug level monitoring | CPT/HCPCS: 85610; 99211 ==

== ENCOUNTER 2023-08-07 11:39 | Outpatient (REF) | payer OTHER, SELFPAY ==
[2023-08-07 12:39] LABS: Prothrombin Time 11.7 SEC (11.1-13.3)
[2023-08-07 13:09] LABS: Anion Gap 13 (12-20); Blood Urea Nitrogen 15 mg/dL (9-16); Calcium 9.5 mg/dL (8.4-10.2); Carbon Dioxide 28 mmol/L (22-29); Chloride 102 mmol/L (96-108); Estimated Glomerular Filt Rate 45; Glucose Random 173 mg/dL (60-115); Sodium 139 mmol/L (135-145)
== END 2023-08-07 11:40 | disposition home or self-care (01) ==
LOC: HO.LAB 11:39
PROVIDERS: Visit Provider Internal Medicine Pulmonary Disease
DX: I27.24 Chronic thromboembolic pulmonary hypertension (principal); R06.02 Shortness of breath
CPT/HCPCS: 36415; 80048; 85610

== ENCOUNTER → 2023-08-15 13:41 | Outpatient (BNVA) | payer OTHER, SELFPAY | PROVIDERS: PCP Internal Medicine; Visit Provider Internal Medicine | DX: I26.99 Other pulmonary embolism without acute cor pulmonale (principal); Z79.01 Long term (current) use of anticoagulants; Z51.81 Encounter for therapeutic drug level monitoring | CPT/HCPCS: 85610; 99211 ==

== ENCOUNTER 2023-08-15 14:39 | Outpatient (AMB) | payer OTHER, SELFPAY ==
[2023-08-15 14:59] LABS: Prothrombin Time Whole Bld POC 14.5 sec (11.1-13.5); ~PT, ~INR - Anti Coag Clinic 1.2 (0.9-1.1)
--- NOTE | 2023-08-15 15:10 | MHC.OFFVISCO ---
Intake Intake Visit Reasons: Anticoagulation Allergies lisinopril [LISINOPRIL] Allergy (Severe, Verified 08/15/23 14:51) ANGIOEDEMA dapagliflozin [From FARXIGA] Allergy (Intermediate, Verified 08/15/23 14:51) HIVES liraglutide [From VICTOZA] Allergy (Intermediate, Verified 08/15/23 14:51) RASH metformin [METFORMIN] Allergy (Intermediate, Verified 08/15/23 14:51) GI UPSET erythromycin base [ERYTHROMYCIN BASE] Allergy (Unknown, Verified 08/15/23 14:51) UNKNOWN amitriptyline [AMITRIPTYLINE] Adverse Reaction (Intermediate, Verified 08/15/23 14:51) DRUGGED FEELING Medication List - Last Reconciled 08/15/23 by Licha Muñoz RN acetaminophen ER 650 mg PO Q6H PRN albuterol sulfate 2.5 mg inhalation Q4H PRN atorvastatin 20 mg PO BEDTIME blood sugar diagnostic (FreeStyle Lite Strips) As directed cyanocobalamin (vitamin B-12) 1,000 mcg PO BEDTIME enoxaparin (Lovenox) 100 mg See Protocol subcut Q12H 14 days ferrous sulfate 325 mg PO MOFR@2100 glimepiride 4 mg PO BEDTIME levothyroxine 50 mcg PO BEDTIME metformin 1,000 mg PO BID nebulizers As directed Oxygen Home Use As directed Proventil HFA 90 mcg/actuation (albuterol sulfate) 2 inhalations inhalation Q6H PRN 30 days NS tirzepatide (Mounjaro) 2.5 mg (0.5 mL) subcut QWEEK valsartan-hydrochlorothiazide 320-25 mg 1 tab PO BEDTIME warfarin 5 mg See Protocol PO DAILY 30 days Nursing Note Pt is s/p balloon angiogram x 2, states she received something to break up the little clot fragments via IV over 6 hours she resumed warfarin post op day 1 with 5mg fri INR: 1.2 OUT OF therapeutic range Medications and supplements reviewed No changes in health, diet, medications, or supplements, Denies any signs and symptoms of bleeding or bruising or clotting. Bleeding, bruising, clotting discussed Nutritional guidance given - avoid all greens x 3 days, eat orange and reds to help raise the INR Dose: 5mg again today then 2.5mg sat sun and recheck Friday F/U INR: 08/18/23 Patient verbalizes understanding of instructions given t/c to Dr Land with pt status ,INR, and plan of care spoke with Alyce to convey msg to him ( Pt PCP on vacation) Anti-Coag Initial Assessment Social Hx Patient Tobacco Use Status: Never used Tobacco alcohol intake: former (socially) Alcohol intake frequency: does not drink Cardiovascular Hx: HTN Lung Disease HX: DVT/PE (pe 2020 and 2022) Endocrine Hx: Thyroid Disease (multinodular thyroid) Musculoskeletal Hx: Arthritis (neck back feet hands knees hips) Blood Disorder Hx: Anemia and Hyperlipidemia GI Hx: Ulcers, Diverticulosis and Hemorrhoids Hx: Other (hx uti as a child) Neurological Hx: Migraines/Headaches and Other (hx concussion as a child) Cancer HX: No Psych. 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
== END 2023-08-15 15:21 | disposition home or self-care (01) ==
PROVIDERS: PCP Internal Medicine; Visit Provider Internal Medicine
DX: Z79.01 Long term (current) use of anticoagulants (principal)

== ENCOUNTER 2023-08-18 08:52 | Outpatient (AMB) | payer OTHER, SELFPAY ==
--- NOTE | 2023-08-18 09:00 | MHC.OFFVISCO ---
Intake Intake Visit Reasons: Anticoagulation Allergies lisinopril [LISINOPRIL] Allergy (Severe, Verified 08/18/23 08:56) ANGIOEDEMA dapagliflozin [From FARXIGA] Allergy (Intermediate, Verified 08/18/23 08:56) HIVES liraglutide [From VICTOZA] Allergy (Intermediate, Verified 08/18/23 08:56) RASH metformin [METFORMIN] Allergy (Intermediate, Verified 08/18/23 08:56) GI UPSET erythromycin base [ERYTHROMYCIN BASE] Allergy (Unknown, Verified 08/18/23 08:56) UNKNOWN amitriptyline [AMITRIPTYLINE] Adverse Reaction (Intermediate, Verified 08/18/23 08:56) DRUGGED FEELING Medication List - Last Reconciled 08/18/23 by Linh Mcnulty RN acetaminophen ER 650 mg PO Q6H PRN albuterol sulfate 2.5 mg inhalation Q4H PRN atorvastatin 20 mg PO BEDTIME blood sugar diagnostic (FreeStyle Lite Strips) As directed cyanocobalamin (vitamin B-12) 1,000 mcg PO BEDTIME enoxaparin (Lovenox) 100 mg See Protocol subcut Q12H 14 days ferrous sulfate 325 mg PO MOFR@2100 glimepiride 4 mg PO BEDTIME levothyroxine 50 mcg PO BEDTIME metformin 1,000 mg PO BID nebulizers As directed Oxygen Home Use As directed Proventil HFA 90 mcg/actuation (albuterol sulfate) 2 inhalations inhalation Q6H PRN 30 days NS tirzepatide (Mounjaro) 2.5 mg (0.5 mL) subcut QWEEK valsartan-hydrochlorothiazide 320-25 mg 1 tab PO BEDTIME warfarin 5 mg See Protocol PO DAILY 30 days Nursing Note INR 1.8-?? out of therapeutic range of 2-3 Medications and supplements reviewed Patient status: pt s/p proc 08/04/23 and 08/11/23, pt on lovenox Medications or supplements: no changes Diet: same Denies any signs and symptoms of bleeding or clotting or unusual bruising Bleeding, bruising, clotting discussed Nutritional guidance given: no greens , eat reds to raise Dose: 7.5mg today then cont reg dosing, cont lovenox F/U INR Date : fri08/20/23? Patient verbalizing understanding of instructions given. Anti-Coag Initial Assessment Social Hx Patient Tobacco Use Status: Never used Tobacco alcohol intake: former (socially) Alcohol intake frequency: does not drink Cardiovascular Hx: HTN Lung Disease HX: DVT/PE (pe 2020 and 2022) Endocrine Hx: Thyroid Disease (multinodular thyroid) Musculoskeletal Hx: Arthritis (neck back feet hands knees hips) Blood Disorder Hx: Anemia and Hyperlipidemia GI Hx: Ulcers, Diverticulosis and Hemorrhoids Hx: Other (hx uti as a child) Neurological Hx: Migraines/Headaches and Other (hx concussion as a child) Cancer HX: No Psych. 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
[2023-08-18 09:03] LABS: Prothrombin Time Whole Bld POC 21.8 sec (11.1-13.5); ~PT, ~INR - Anti Coag Clinic 1.8 (0.9-1.1)
== END 2023-08-18 09:08 | disposition home or self-care (01) ==
LOC: HO.ACS 08:52
PROVIDERS: PCP Internal Medicine; Visit Provider Internal Medicine
DX: Z79.01 Long term (current) use of anticoagulants (principal)

== ENCOUNTER → 2023-08-18 08:52 | Outpatient (BNVA) | payer OTHER, SELFPAY | PROVIDERS: PCP Internal Medicine; Visit Provider Internal Medicine | DX: I26.99 Other pulmonary embolism without acute cor pulmonale (principal); Z79.01 Long term (current) use of anticoagulants; Z51.81 Encounter for therapeutic drug level monitoring | CPT/HCPCS: 85610; 99211 ==

== ENCOUNTER 2023-08-21 10:46 | Outpatient (AMB) | payer OTHER, SELFPAY ==
[2023-08-21 11:05] LABS: Prothrombin Time Whole Bld POC 40.1 sec (11.1-13.5); ~PT, ~INR - Anti Coag Clinic 3.3 (0.9-1.1)
--- NOTE | 2023-08-21 11:19 | MHC.OFFVISCO ---
Intake Intake Visit Reasons: Anticoagulation Allergies lisinopril [LISINOPRIL] Allergy (Severe, Verified 08/21/23 10:55) ANGIOEDEMA dapagliflozin [From FARXIGA] Allergy (Intermediate, Verified 08/21/23 10:55) HIVES liraglutide [From VICTOZA] Allergy (Intermediate, Verified 08/21/23 10:55) RASH metformin [METFORMIN] Allergy (Intermediate, Verified 08/21/23 10:55) GI UPSET erythromycin base [ERYTHROMYCIN BASE] Allergy (Unknown, Verified 08/21/23 10:55) UNKNOWN amitriptyline [AMITRIPTYLINE] Adverse Reaction (Intermediate, Verified 08/21/23 10:55) DRUGGED FEELING Medication List - Last Reconciled 08/21/23 by Licha Muñoz RN acetaminophen ER 650 mg PO Q6H PRN albuterol sulfate 2.5 mg inhalation Q4H PRN atorvastatin 20 mg PO BEDTIME blood sugar diagnostic (FreeStyle Lite Strips) As directed cyanocobalamin (vitamin B-12) 1,000 mcg PO BEDTIME enoxaparin (Lovenox) 100 mg See Protocol subcut Q12H 14 days ferrous sulfate 325 mg PO MOFR@2100 glimepiride 4 mg PO BEDTIME levothyroxine 50 mcg PO BEDTIME metformin 1,000 mg PO BID nebulizers As directed Oxygen Home Use As directed Proventil HFA 90 mcg/actuation (albuterol sulfate) 2 inhalations inhalation Q6H PRN 30 days NS tirzepatide (Mounjaro) 2.5 mg (0.5 mL) subcut QWEEK valsartan-hydrochlorothiazide 320-25 mg 1 tab PO BEDTIME warfarin 5 mg See Protocol PO DAILY 30 days Nursing Note INR 3.3 out of therapeutic range, DUE TO HX OF CLOTS PREFER INR AT UPPER END OF RANGE Medications and supplements reviewed Patient status: S/P ANGIOGRAM, 08/11/23 STATES SHE STILL FEELS SOB, SHE RECEIVED CANGRELOR DURING HER PROCEDURE DUE TO THROMBI BURDEN , CAN STOP LOVENOX TODAY, ENC TO CALL MD IF HER BREATHING GETS WORSE IN ANY WAY OR HAS ANY C/P WITH INCREASE IN SOB OR ALARCON Medications or supplements: NO CHANGES, CAN STOP LOVENOX BRIDGE Diet: GOOD Denies any signs and symptoms of bleeding or clotting or unusual bruising Bleeding, bruising, clotting discussed Nutritional guidance given: CAN RESUME GREENS Dose: KEEP PREVIOUS DOSE EVEN WITH HIGHER INR LEVELSS, 5MG X 2 DAYS, 2.5MG X 5 DAYS F/U INR Date : 1 WEEK?? Patient verbalizing understanding of instructions given. Anti-Coag Initial Assessment Social Hx Patient Tobacco Use Status: Never used Tobacco alcohol intake: former (socially) Alcohol intake frequency: does not drink Cardiovascular Hx: HTN Lung Disease HX: DVT/PE (pe 2020 and 2022) Endocrine Hx: Thyroid Disease (multinodular thyroid) Musculoskeletal Hx: Arthritis (neck back feet hands knees hips) Blood Disorder Hx: Anemia and Hyperlipidemia GI Hx: Ulcers, Diverticulosis and Hemorrhoids Hx: Other (hx uti as a child) Neurological Hx: Migraines/Headaches and Other (hx concussion as a child) Cancer HX: No Psych. 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
== END 2023-08-21 12:00 | disposition home or self-care (01) ==
LOC: HO.ACS 10:46
PROVIDERS: PCP Internal Medicine; Visit Provider Internal Medicine
DX: Z79.01 Long term (current) use of anticoagulants (principal)

== ENCOUNTER → 2023-08-21 10:46 | Outpatient (BNVA) | payer OTHER, SELFPAY | PROVIDERS: PCP Internal Medicine; Visit Provider Internal Medicine | DX: I26.99 Other pulmonary embolism without acute cor pulmonale (principal); Z79.01 Long term (current) use of anticoagulants; Z51.81 Encounter for therapeutic drug level monitoring | CPT/HCPCS: 85610; 99211 ==

== ENCOUNTER 2023-08-28 10:23 | Outpatient (AMB) | payer OTHER, SELFPAY ==
[2023-08-28 10:33] LABS: Prothrombin Time Whole Bld POC 30.3 sec (11.1-13.5); ~PT, ~INR - Anti Coag Clinic 2.5 (0.9-1.1)
--- NOTE | 2023-08-28 10:35 | MHC.OFFVISCO ---
Intake Intake Visit Reasons: Anticoagulation Allergies lisinopril [LISINOPRIL] Allergy (Severe, Verified 08/28/23 10:26) ANGIOEDEMA dapagliflozin [From FARXIGA] Allergy (Intermediate, Verified 08/28/23 10:26) HIVES liraglutide [From VICTOZA] Allergy (Intermediate, Verified 08/28/23 10:26) RASH metformin [METFORMIN] Allergy (Intermediate, Verified 08/28/23 10:26) GI UPSET erythromycin base [ERYTHROMYCIN BASE] Allergy (Unknown, Verified 08/28/23 10:26) UNKNOWN amitriptyline [AMITRIPTYLINE] Adverse Reaction (Intermediate, Verified 08/28/23 10:26) DRUGGED FEELING Medication List - Last Reconciled 08/28/23 by Francine Tipton RN acetaminophen ER 650 mg PO Q6H PRN albuterol sulfate 2.5 mg inhalation Q4H PRN atorvastatin 20 mg PO BEDTIME blood sugar diagnostic (FreeStyle Lite Strips) As directed cyanocobalamin (vitamin B-12) 1,000 mcg PO BEDTIME ferrous sulfate 325 mg PO MOFR@2100 glimepiride 4 mg PO BEDTIME levothyroxine 50 mcg PO BEDTIME metformin 1,000 mg PO BID nebulizers As directed Oxygen Home Use As directed Proventil HFA 90 mcg/actuation (albuterol sulfate) 2 inhalations inhalation Q6H PRN 30 days NS tirzepatide (Mounjaro) 2.5 mg (0.5 mL) subcut QWEEK valsartan-hydrochlorothiazide 320-25 mg 1 tab PO BEDTIME warfarin 5 mg See Protocol PO DAILY 30 days Nursing Note Amb to [facility], wearing cont O2 at 2L NC feeling ok, slight cold sxs since last Friday, only took Nyquil last night otherwise no med changes Medications and supplements reviewed, recent angiogram No other changes in health, diet, medications, or supplements Denies any unusual signs and symptoms of bruising, bleeding, sts had more bruising after procedure secondary to multiple attempts at IV start Denies any new Chest pain, SOB, or clotting INR: 2.5 in therapeutic range Nutritional guidance given: balance greens and reds in diet, wwatch over the holidays Dose: continue usual dosing;5mg x 2 days and 2.5mg x 5 days F/U INR:2 weeks Patient verbalizes understanding of instructions given with accurate read back/ teach back of dosing Anti-Coag Initial Assessment Social Hx Patient Tobacco Use Status: Never used Tobacco alcohol intake: former (socially) Alcohol intake frequency: does not drink Cardiovascular Hx: HTN Lung Disease HX: DVT/PE (pe 2020 and 2022) Endocrine Hx: Thyroid Disease (multinodular thyroid) Musculoskeletal Hx: Arthritis (neck back feet hands knees hips) Blood Disorder Hx: Anemia and Hyperlipidemia GI Hx: Ulcers, Diverticulosis and Hemorrhoids Hx: Other (hx uti as a child) Neurological Hx: Migraines/Headaches and Other (hx concussion as a child) Cancer HX: No Psych. Illness/Depression: Yes Coding Level of Care Code Est Patient Level 1 Diagnoses Current use of anticoagulant therapy Z79.01 Time Spent (min) 15 Assessment & Plan Assessment & Plan (1) Current use of anticoagulant therapy: Code(s): Z79.01 - nursing home (current) use of anticoagulants Category: Medical
== END 2023-08-28 10:42 | disposition home or self-care (01) ==
LOC: HO.ACS 10:23
PROVIDERS: PCP Internal Medicine; Visit Provider Internal Medicine
DX: Z79.01 Long term (current) use of anticoagulants (principal)

== ENCOUNTER → 2023-08-28 10:23 | Outpatient (BNVA) | payer OTHER, SELFPAY | PROVIDERS: PCP Internal Medicine; Visit Provider Internal Medicine | DX: I26.99 Other pulmonary embolism without acute cor pulmonale (principal); Z51.81 Encounter for therapeutic drug level monitoring; Z79.01 Long term (current) use of anticoagulants | CPT/HCPCS: 85610; 99211 ==

== ENCOUNTER 2023-09-12 10:31 | Outpatient (AMB) | payer OTHER, SELFPAY ==
--- NOTE | 2023-09-12 10:48 | MHC.OFFVISCO ---
Intake Intake Visit Reasons: Anticoagulation Allergies lisinopril [LISINOPRIL] Allergy (Severe, Verified 09/12/23 10:44) ANGIOEDEMA dapagliflozin [From FARXIGA] Allergy (Intermediate, Verified 09/12/23 10:44) HIVES liraglutide [From VICTOZA] Allergy (Intermediate, Verified 09/12/23 10:44) RASH metformin [METFORMIN] Allergy (Intermediate, Verified 09/12/23 10:44) GI UPSET erythromycin base [ERYTHROMYCIN BASE] Allergy (Unknown, Verified 09/12/23 10:44) UNKNOWN amitriptyline [AMITRIPTYLINE] Adverse Reaction (Intermediate, Verified 09/12/23 10:44) DRUGGED FEELING Medication List - Last Reconciled 09/12/23 by Linh Mcnulty RN acetaminophen ER 650 mg PO Q6H PRN albuterol sulfate 2.5 mg inhalation Q4H PRN atorvastatin 20 mg PO BEDTIME blood sugar diagnostic (FreeStyle Lite Strips) As directed cyanocobalamin (vitamin B-12) 1,000 mcg PO BEDTIME ferrous sulfate 325 mg PO MOFR@2100 glimepiride 4 mg PO BEDTIME levothyroxine 50 mcg PO BEDTIME metformin 1,000 mg PO BID nebulizers As directed Oxygen Home Use As directed Proventil HFA 90 mcg/actuation (albuterol sulfate) 2 inhalations inhalation Q6H PRN 30 days NS tirzepatide (Mounjaro) 2.5 mg (0.5 mL) subcut QWEEK valsartan-hydrochlorothiazide 320-25 mg 1 tab PO BEDTIME warfarin 5 mg See Protocol PO DAILY 30 days Nursing Note INR: 2.1- in therapeutic range Medications and supplements reviewed No changes in health, diet, medications, or supplements, Denies any signs and symptoms of bleeding or bruising or clotting. 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
== END 2023-09-12 11:09 | disposition home or self-care (01) ==
LOC: HO.ACS 10:31
PROVIDERS: PCP Internal Medicine; Visit Provider Internal Medicine
DX: Z79.01 Long term (current) use of anticoagulants (principal)

== ENCOUNTER → 2023-09-12 10:31 | Outpatient (BNVA) | payer OTHER, SELFPAY | PROVIDERS: PCP Internal Medicine; Visit Provider Internal Medicine | DX: I26.99 Other pulmonary embolism without acute cor pulmonale (principal); Z79.01 Long term (current) use of anticoagulants; Z51.81 Encounter for therapeutic drug level monitoring | CPT/HCPCS: 85610; 99211 ==

== ENCOUNTER 2023-09-25 10:32 | Outpatient (REF) | payer OTHER, SELFPAY ==
[2023-09-25 10:42] LABS: MANUAL DIFF FLAG NO
[2023-09-25 11:07] LABS: Basophils Absolute Auto 0.1 X10*3/uL (0.0-0.2); Basophils Percent Auto 0.6 % (0-2); Eosinophils Absolute Auto 0.2 X10*3/uL (0.0-0.4); Hematocrit 34.7 % (37.0-47.0); Hemoglobin 10.7 g/dl (12.0-16.0); Imm Gran Abs Auto 0.04 X10*3/uL (0.00-0.03); Imm Gran Pct Auto 0.4 % (0.0-0.4); Lymphocytes Absolute Auto 2.1 X10*3/uL (1.2-4.9); Lymphocytes Percent Auto 19.1 % (20-40); Mean Corpuscular HGB Conc 30.8 g/dl (31.0-35.0); Mean Corpuscular Hemoglobin 22.9 pg (27.0-33.0); Mean Corpuscular Volume 74.1 fL (80.0-98.0); Mean Platelet Volume 10.7 fL (9.4-12.3); Monocytes Absolute Auto 0.9 X10*3/uL (0.1-1.2); Monocytes Percent Auto 8.4 % (2-11); Neutrophils Absolute Auto 7.6 x10*3/uL (2.0-8.3); Neutrophils Percent Auto 69.5 % (45-73); Platelet Count 125 X10*3/uL (160-400); Red Blood Count 4.68 X10*6/uL (4.20-5.50); Red Cell Distribution Width 16.4 % (11.0-16.0); White Blood Count 10.9 X10*3/uL (4.8-10.8)
[2023-09-25 11:11] LABS: Estimated Average Glucose 174 mg/dL; Hemoglobin A1c % 7.7 % (<6.0)
[2023-09-25 11:30] LABS: Alanine Aminotransferase 18 U/L (0-31); Albumin Level 3.9 g/dL (3.5-5.0); Alkaline Phosphatase 86 U/L (39-117); Anion Gap 14 (12-20); Aspartate Amino Transferase 17 U/L (5-31); Bilirubin Total 0.4 mg/dL (0.0-1.0); Blood Urea Nitrogen 22 mg/dL (9-16); Calcium 9.3 mg/dL (8.4-10.2); Carbon Dioxide 25 mmol/L (22-29); Chloride 105 mmol/L (96-108); Estimated Glomerular Filt Rate 40; Glucose Random 141 mg/dL (60-115); Potassium 3.7 mmol/L (3.3-5.1); Sodium 140 mmol/L (135-145); Total Protein 7.1 g/dL (6.5-8.0)
== END 2023-09-25 10:33 | disposition home or self-care (01) ==
LOC: HO.LAB 10:32
PROVIDERS: PCP Internal Medicine; Visit Provider Internal Medicine
DX: E11.65 Type 2 diabetes mellitus with hyperglycemia (principal); I27.82 Chronic pulmonary embolism; N92.4 Excessive bleeding in the premenopausal period; Z51.81 Encounter for therapeutic drug level monitoring; Z79.01 Long term (current) use of anticoagulants
CPT/HCPCS: 36415; 80053; 83036; 85025; 85610; 99211

== ENCOUNTER 2023-09-25 10:49 | Outpatient (AMB) | payer OTHER, SELFPAY ==
[2023-09-25 11:09] LABS: Prothrombin Time Whole Bld POC 33.8 sec (11.1-13.5); ~PT, ~INR - Anti Coag Clinic 2.8 (0.9-1.1)
--- NOTE | 2023-09-25 11:11 | MHC.OFFVISCO ---
Intake Intake Visit Reasons: Anticoagulation Allergies lisinopril [LISINOPRIL] Allergy (Severe, Verified 09/25/23 11:03) ANGIOEDEMA dapagliflozin [From FARXIGA] Allergy (Intermediate, Verified 09/25/23 11:03) HIVES liraglutide [From VICTOZA] Allergy (Intermediate, Verified 09/25/23 11:03) RASH metformin [METFORMIN] Allergy (Intermediate, Verified 09/25/23 11:03) GI UPSET erythromycin base [ERYTHROMYCIN BASE] Allergy (Unknown, Verified 09/25/23 11:03) UNKNOWN amitriptyline [AMITRIPTYLINE] Adverse Reaction (Intermediate, Verified 09/25/23 11:03) DRUGGED FEELING Medication List - Last Reconciled 09/25/23 by Francine Tipton RN acetaminophen ER 650 mg PO Q6H PRN albuterol sulfate 2.5 mg inhalation Q4H PRN atorvastatin 20 mg PO BEDTIME blood sugar diagnostic (FreeStyle Lite Strips) As directed cyanocobalamin (vitamin B-12) 1,000 mcg PO BEDTIME ferrous sulfate 325 mg PO MOFR@2100 glimepiride 4 mg PO BEDTIME levothyroxine 50 mcg PO BEDTIME metformin 1,000 mg PO BID nebulizers As directed Oxygen Home Use As directed Proventil HFA 90 mcg/actuation (albuterol sulfate) 2 inhalations inhalation Q6H PRN 30 days NS tirzepatide (Mounjaro) 2.5 mg (0.5 mL) subcut QWEEK valsartan-hydrochlorothiazide 320-25 mg 1 tab PO BEDTIME warfarin 5 mg See Protocol PO DAILY 30 days Nursing Note Amb to [facility] feeling ok, has O2 on 2L NC cont, no cough or cold sxs at present Medications and supplements reviewed No changes in health, diet, medications, or supplements Denies any unusual signs and symptoms of bruising, bleeding Denies any new Chest pain, SOB, or clotting INR: 2.8 in therapeutic range Nutritional guidance given: balance greens and reds in diet, be consistent Dose: continue usual dosing;5mg x 2 days and 2.5mg x 5 days F/U INR: 2 weeks Patient verbalizes understanding of instructions given with accurate read back/ teach back of dosing Anti-Coag Initial Assessment Social Hx Patient Tobacco Use Status: Never used Tobacco alcohol intake: former (socially) Alcohol intake frequency: does not drink Cardiovascular Hx: HTN Lung Disease HX: DVT/PE (pe 2020 and 2022) Endocrine Hx: Thyroid Disease (multinodular thyroid) Musculoskeletal Hx: Arthritis (neck back feet hands knees hips) Blood Disorder Hx: Anemia and Hyperlipidemia GI Hx: Ulcers, Diverticulosis and Hemorrhoids Hx: Other (hx uti as a child) Neurological Hx: Migraines/Headaches and Other (hx concussion as a child) Cancer HX: No Psych. Illness/Depression: Yes Coding Level of Care Code Est Patient Level 1 Diagnoses Current use of anticoagulant therapy Z79.01 Time Spent (min) 15 Assessment & Plan Assessment & Plan (1) Current use of anticoagulant therapy: Code(s): Z79.01 - shelter (current) use of anticoagulants Category: Medical
== END 2023-09-25 11:16 | disposition home or self-care (01) ==
LOC: HO.ACS 10:49
PROVIDERS: PCP Internal Medicine; Visit Provider Internal Medicine
DX: Z79.01 Long term (current) use of anticoagulants (principal)

== ENCOUNTER 2023-10-09 10:56 | Outpatient (AMB) | payer OTHER, SELFPAY ==
[2023-10-09 11:19] LABS: Prothrombin Time Whole Bld POC 30.3 sec (11.1-13.5); ~PT, ~INR - Anti Coag Clinic 2.5 (0.9-1.1)
--- NOTE | 2023-10-09 11:22 | MHC.OFFVISCO ---
Intake Intake Visit Reasons: Anticoagulation Allergies lisinopril [LISINOPRIL] Allergy (Severe, Verified 10/09/23 11:06) ANGIOEDEMA dapagliflozin [From FARXIGA] Allergy (Intermediate, Verified 10/09/23 11:06) HIVES liraglutide [From VICTOZA] Allergy (Intermediate, Verified 10/09/23 11:06) RASH metformin [METFORMIN] Allergy (Intermediate, Verified 10/09/23 11:06) GI UPSET erythromycin base [ERYTHROMYCIN BASE] Allergy (Unknown, Verified 10/09/23 11:06) UNKNOWN amitriptyline [AMITRIPTYLINE] Adverse Reaction (Intermediate, Verified 10/09/23 11:06) DRUGGED FEELING Medication List - Last Reconciled 10/09/23 by Francine Tipton RN acetaminophen ER 650 mg PO Q6H PRN albuterol sulfate 2.5 mg inhalation Q4H PRN atorvastatin 20 mg PO BEDTIME blood sugar diagnostic (FreeStyle Lite Strips) As directed cyanocobalamin (vitamin B-12) 1,000 mcg PO BEDTIME ferrous sulfate 325 mg PO MOFR@2100 glimepiride 4 mg PO BEDTIME levothyroxine 50 mcg PO BEDTIME metformin 1,000 mg PO BID nebulizers As directed Oxygen Home Use As directed Proventil HFA 90 mcg/actuation (albuterol sulfate) 2 inhalations inhalation Q6H PRN 30 days NS sertraline 50 mg PO DAILY tirzepatide (Mounjaro) 2.5 mg (0.5 mL) subcut QWEEK valsartan-hydrochlorothiazide 320-25 mg 1 tab PO BEDTIME warfarin 5 mg See Protocol PO DAILY 30 days Nursing Note Amb to [facility] wearing O2 cont, sts feeling, just OK sts had a fever on Friday, breathing not great but feeling better Medications and supplements reviewed, sts she will be starting sertraline 50mg daily (per [employer] major raiser of INR but delayed) and Monjarou will be increased to 5mg, (increases INR) however she is still waiting on auth No other changes in health, diet, medications, or supplements Denies any unusual signs and symptoms of bruising, bleeding Denies any new Chest pain, SOB, or clotting INR: 2.5 in therapeutic range Nutritional guidance given: balance greens and reds in diet Dose: continue usual dosing; we will monitor INR frequently to check for any changes related to the med changes F/U INR: 1 week Patient verbalizes understanding of instructions given with accurate read back/ teach back of dosing Anti-Coag Initial Assessment Social Hx Patient Tobacco Use Status: Never used Tobacco alcohol intake: former (socially) Alcohol intake frequency: does not drink Cardiovascular Hx: HTN Lung Disease HX: DVT/PE (pe 2020 and 2022) Endocrine Hx: Thyroid Disease (multinodular thyroid) Musculoskeletal Hx: Arthritis (neck back feet hands knees hips) Blood Disorder Hx: Anemia and Hyperlipidemia GI Hx: Ulcers, Diverticulosis and Hemorrhoids Hx: Other (hx uti as a child) Neurological Hx: Migraines/Headaches and Other (hx concussion as a child) Cancer HX: No Psych. 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
== END 2023-10-09 11:37 | disposition home or self-care (01) ==
LOC: HO.ACS 10:56
PROVIDERS: PCP Internal Medicine; Visit Provider Internal Medicine
DX: Z79.01 Long term (current) use of anticoagulants (principal)

== ENCOUNTER → 2023-10-09 10:56 | Outpatient (BNVA) | payer OTHER, SELFPAY | PROVIDERS: PCP Internal Medicine; Visit Provider Internal Medicine | DX: I26.99 Other pulmonary embolism without acute cor pulmonale (principal); Z51.81 Encounter for therapeutic drug level monitoring; Z79.01 Long term (current) use of anticoagulants | CPT/HCPCS: 85610; 99211 ==

== ENCOUNTER 2023-10-22 11:34 | Outpatient (AMB) | payer OTHER, SELFPAY ==
--- NOTE | 2023-10-22 11:56 | MHC.OFFVISCO ---
Intake Intake Visit Reasons: Anticoagulation Allergies lisinopril [LISINOPRIL] Allergy (Severe, Verified 10/22/23 11:53) ANGIOEDEMA dapagliflozin [From FARXIGA] Allergy (Intermediate, Verified 10/22/23 11:53) HIVES liraglutide [From VICTOZA] Allergy (Intermediate, Verified 10/22/23 11:53) RASH metformin [METFORMIN] Allergy (Intermediate, Verified 10/22/23 11:53) GI UPSET erythromycin base [ERYTHROMYCIN BASE] Allergy (Unknown, Verified 10/22/23 11:53) UNKNOWN amitriptyline [AMITRIPTYLINE] Adverse Reaction (Intermediate, Verified 10/22/23 11:53) DRUGGED FEELING Medication List - Last Reconciled 10/22/23 by Linh Mcnulty RN acetaminophen ER 650 mg PO Q6H PRN albuterol sulfate 2.5 mg inhalation Q4H PRN atorvastatin 20 mg PO BEDTIME blood sugar diagnostic (FreeStyle Lite Strips) As directed cyanocobalamin (vitamin B-12) 1,000 mcg PO BEDTIME ferrous sulfate 325 mg PO MOFR@2100 glimepiride 4 mg PO BEDTIME levothyroxine 50 mcg PO BEDTIME metformin 1,000 mg PO BID nebulizers As directed Oxygen Home Use As directed Proventil HFA 90 mcg/actuation (albuterol sulfate) 2 inhalations inhalation Q6H PRN 30 days NS sertraline 50 mg PO DAILY tirzepatide (Mounjaro) 2.5 mg (0.5 mL) subcut QWEEK valsartan-hydrochlorothiazide 320-25 mg 1 tab PO BEDTIME warfarin 5 mg See Protocol PO DAILY 30 days Nursing Note INR 3.3-?? out of therapeutic range Medications and supplements reviewed Patient status: pt states was ill last week, in bed for 4 days Medications or supplements: recent start sertraline 50mg daily- started two weeks ago - this can raise inr Diet: somewhat less Denies any signs and symptoms of bleeding or clotting or unusual bruising Bleeding, bruising, clotting discussed Nutritional guidance given: eat greens to lower Dose: 5mg x 1, 2.5mg x 6 F/U INR Date : 1 week? Patient verbalizing understanding of instructions given. Anti-Coag Initial Assessment Social Hx Patient Tobacco Use Status: Never used Tobacco alcohol intake: former (socially) Alcohol intake frequency: does not drink Cardiovascular Hx: HTN Lung Disease HX: DVT/PE (pe 2020 and 2022) Endocrine Hx: Thyroid Disease (multinodular thyroid) Musculoskeletal Hx: Arthritis (neck back feet hands knees hips) Blood Disorder Hx: Anemia and Hyperlipidemia GI Hx: Ulcers, Diverticulosis and Hemorrhoids Hx: Other (hx uti as a child) Neurological Hx: Migraines/Headaches and Other (hx concussion as a child) Cancer HX: No Psych. Illness/Depression: Yes Coding Level of Care Code Est Patient Level 1 Diagnoses Current use of anticoagulant therapy Z79.01 Assessment & Plan Assessment & Plan (1) Current use of anticoagulant therapy: Code(s): Z79.01 - skilled nursing (current) use of anticoagulants Category: Medical
[2023-10-22 11:58] LABS: ~PT, ~INR - Anti Coag Clinic 3.3 (0.9-1.1)
== END 2023-10-22 12:05 | disposition home or self-care (01) ==
LOC: HO.ACS 11:34
PROVIDERS: PCP Internal Medicine; Visit Provider Internal Medicine
DX: Z79.01 Long term (current) use of anticoagulants (principal)

== ENCOUNTER → 2023-10-22 11:34 | Outpatient (BNVA) | payer OTHER, SELFPAY | PROVIDERS: PCP Internal Medicine; Visit Provider Internal Medicine | DX: I26.99 Other pulmonary embolism without acute cor pulmonale (principal); Z79.01 Long term (current) use of anticoagulants; Z51.81 Encounter for therapeutic drug level monitoring | CPT/HCPCS: 85610; 99211 ==

== ENCOUNTER 2023-10-31 09:49 | Outpatient (AMB) | payer OTHER, SELFPAY ==
[2023-10-31 09:59] LABS: Prothrombin Time Whole Bld POC 24.3 sec (11.1-13.5)
--- NOTE | 2023-10-31 10:08 | MHC.OFFVISCO ---
Intake Intake Visit Reasons: Anticoagulation Allergies lisinopril [LISINOPRIL] Allergy (Severe, Verified 10/31/23 09:54) ANGIOEDEMA dapagliflozin [From FARXIGA] Allergy (Intermediate, Verified 10/31/23 09:54) HIVES liraglutide [From VICTOZA] Allergy (Intermediate, Verified 10/31/23 09:54) RASH metformin [METFORMIN] Allergy (Intermediate, Verified 10/31/23 09:54) GI UPSET erythromycin base [ERYTHROMYCIN BASE] Allergy (Unknown, Verified 10/31/23 09:54) UNKNOWN amitriptyline [AMITRIPTYLINE] Adverse Reaction (Intermediate, Verified 10/31/23 09:54) DRUGGED FEELING Medication List - Last Reconciled 10/31/23 by Yola Herring RN acetaminophen ER 650 mg PO Q6H PRN albuterol sulfate 2.5 mg inhalation Q4H PRN atorvastatin 20 mg PO BEDTIME blood sugar diagnostic (FreeStyle Lite Strips) As directed cyanocobalamin (vitamin B-12) 1,000 mcg PO BEDTIME ferrous sulfate 325 mg PO MOFR@2100 glimepiride 4 mg PO BEDTIME levothyroxine 50 mcg PO BEDTIME metformin 1,000 mg PO BID nebulizers As directed Oxygen Home Use As directed Proventil HFA 90 mcg/actuation (albuterol sulfate) 2 inhalations inhalation Q6H PRN 30 days NS sertraline 50 mg PO DAILY tirzepatide (Mounjaro) 2.5 mg (0.5 mL) subcut QWEEK valsartan-hydrochlorothiazide 320-25 mg 1 tab PO BEDTIME warfarin 5 mg See Protocol PO DAILY 30 days Nursing Note NO CP,SOB,DIET/MED CHANGES,FALLS OR SX OF BLEEDING. WILL RESUME PREVIOUS DOSE OF 5MGM 2 DAYS AND RECHECK IN 2 WEEKS. GOOD UNDERSTANDING OF DOSING INSTR. Anti-Coag Initial Assessment Social Hx Patient Tobacco Use Status: Never used Tobacco alcohol intake: former (socially) Alcohol intake frequency: does not drink Cardiovascular Hx: HTN Lung Disease HX: DVT/PE (pe 2020 and 2022) Endocrine Hx: Thyroid Disease (multinodular thyroid) Musculoskeletal Hx: Arthritis (neck back feet hands knees hips) Blood Disorder Hx: Anemia and Hyperlipidemia GI Hx: Ulcers, Diverticulosis and Hemorrhoids Hx: Other (hx uti as a child) Neurological Hx: Migraines/Headaches and Other (hx concussion as a child) Cancer HX: No Psych. Illness/Depression: Yes Coding Level of Care Code Est Patient Level 1 Diagnoses Current use of anticoagulant therapy Z79.01 Assessment & Plan Assessment & Plan (1) Current use of anticoagulant therapy: Code(s): Z79.01 - alf (current) use of anticoagulants Category: Medical
== END 2023-10-31 10:10 | disposition home or self-care (01) ==
LOC: HO.ACS 09:49
PROVIDERS: PCP Internal Medicine; Visit Provider Internal Medicine
DX: Z79.01 Long term (current) use of anticoagulants (principal)

== ENCOUNTER → 2023-10-31 09:49 | Outpatient (BNVA) | payer OTHER, SELFPAY | PROVIDERS: PCP Internal Medicine; Visit Provider Internal Medicine | DX: I26.99 Other pulmonary embolism without acute cor pulmonale (principal); Z79.01 Long term (current) use of anticoagulants; Z51.81 Encounter for therapeutic drug level monitoring | CPT/HCPCS: 85610; 99211 ==

== ENCOUNTER 2023-11-11 14:09 | Outpatient (AMB) | payer OTHER, SELFPAY ==
[2023-11-11 14:11] VITALS: PULSE 92; O2SAT 98; BMI 47.9
--- NOTE | 2023-11-11 14:11 | MHC.OFFVIS ---
Intake Vital Signs 11/11/23 14:11 Height 5 ft 5 in Weight 288 lb BMI 47.9 Pulse 92 Pulse Source Pulse Oximeter Pulse Oximetry (%) 98 Oxygen Delivery Method Room Air Intake Visit Reasons: PE [employer] Attendant Required: No Allergies lisinopril [LISINOPRIL] Allergy (Severe, Verified 11/11/23 14:12) ANGIOEDEMA dapagliflozin [From FARXIGA] Allergy (Intermediate, Verified 11/11/23 14:12) HIVES liraglutide [From VICTOZA] Allergy (Intermediate, Verified 11/11/23 14:12) RASH metformin [METFORMIN] Allergy (Intermediate, Verified 11/11/23 14:12) GI UPSET erythromycin base [ERYTHROMYCIN BASE] Allergy (Unknown, Verified 11/11/23 14:12) UNKNOWN amitriptyline [AMITRIPTYLINE] Adverse Reaction (Intermediate, Verified 11/11/23 14:12) DRUGGED FEELING HPI HPI Comments History of Present Illness Details The patient is a 48-year-old woman with a known history of pulmonary emboli currently on Eliquis presenting with worsening dyspnea symptoms. Patient complains of dyspnea on exertion. Moderate severity. denies any wheezing or coughing. The patient does not have any respiratory inhalers at this time. She denies any wheezing although she does have chest tightness. In addition to that the patient does have daytime drowsiness. Her [place] score is elevated 12/24. The patient does have cardiovascular risk factors. Patient needs to undergo home sleep study this time. We did review imaging studies that we have available including a CT scan of the chest angiogram ruling out pulmonary embolism in the spring. the lung parenchyma is also within normal limits which is reassuring. 08/16/2022 the patient is here for a pulmonary follow-up visit. The patient overall has been feeling relatively well. She still has some daytime drowsiness. Her [place] score is elevated 9/24. The patient did have a sleep study done. Appears that she was sleeping the most part on her back and she had a mild degree of sleep apnea with an AHI just above 5. her sleep apnea was less severe when she laid on her sides. Therefore she wants to try positional therapy for now. If she does not improved after positional therapy then can consider CPAP therapy. The patient also continues on the Eliquis. She is tolerating it well. No minor major bleeding noted. she did undergo pulmonary function studies personally by me demonstrating an isolated moderate diffusion impairment. We did talk about potentially chronic thromboembolic disease could result in this presentation. But she is also anemic and that can also result in the diffusing impairment as well. She is currently on iron. 10/25/2022 the patient is here for pulmonary follow-up visit. The patient has been complaining of increasing shortness of breath. Moderate severity. Also complaining of right-sided pleuritic chest pain. She went to the gym yesterday and she got short of breath and also felt dizzy. She did undergo blood work which we reviewed. She has an elevated white count in addition to a left shift suggesting an infectious process. On further questioning she has been coughing more recently. In addition to that she does complaint of that pleuritic discomfort. She did have blood work which we debrided reviewed together. White count is elevated consistent with an infectious process. In addition to that her D-dimer is elevated. On further questioning she is not taking her Eliquis correctly. She is only doing it daily. With her elevated D-dimer in the pleuritic chest pain in a history of previous blood clots the patient needs to get a repeat CT scan of the chest PE protocol. Will request 1 at this time. However, being Friday if the patient develops any worsening symptoms she should go to the ER. 01/09/2023 the patient is here for a pulmonary follow-up visit. The patient still having shortness of breath even after being hospitalized. She did increase her Eliquis medication to twice a day. The patient still has significant shortness of breath with minimal activity moderate severity. She complains of chest discomfort. She is wondering if the Eliquis is working. She did follow-up with her oncologist. It appears that she does have factor 5 Leiden putting her risk for blood clots and also her family. She needs to make sure the family is aware of this had artery disease. We did taken for walking oximetry the patient did desaturate down to 87% with activity and she was also tachycardic to 130. I am concerned that she may have at this point chronic thromboembolic disease. Will go ahead and order a V/Q scan and switch over to Coumadin. If the patient continues to have blood clots even after that will have to consider a referral to [facility]. 02/06/2023 The patient is here for a follow up visit. Switched over to coumadin. But, then ended up with a tooth infection and placed on abx. Started developing headaches and blurry vision. She had her INR check and it was critically high 6.8. She is using the oxygen with good effect. Has an ECHO scheduled for next week. We will plan to repeat her VQ scan in 6-8 weeks, if no better, then will need a referral to [facility] [place]. In the meantime, I did call the ED triage and took her to the ED to assess for an acute bleed for the supra therapeutic INR. 07/23/2023 the patient is here for a pulmonary follow-up visit. The patient continues to be about the same. Still having shortness of breath with activity. The oxygen has been affecting beneficial. She continues on the Coumadin. Her Coumadin levels continue to fluctuate. The patient did go to [facility]. Chief deemed high risk for the pulmonary artery enterectomy therefore, the patient will undergo angioplasty. Will be broken up in about 3-4 procedures. She will have to switch over to Lovenox intermittently for the procedures. Will going to go ahead and work with the Coumadin clinic in order to do so effectively. She will continue with the oxygen for now. The patient also has to follow-up with her surgeon for the abnormal findings of the thyroid but that can hold and wait until she is stable from a pulmonary standpoint. She continues to work with her firer helper regarding her diabetes which appears to be better. She will continue with current therapy. Will follow-up in a couple months after she has completed with her angioplasty and perform a 6 minutes walk test to see if we can titrate her down to a conserving device in order for her to have an easier time caring the oxygen. We can also consider the use of vasodilators very therapy. Will discuss that further with [facility]. 11/11/2023 the patient is here for a pulmonary follow-up visit. She is status post angioplasty although pulmonary vessels. Unfortunately she continues to be short of breath. Her V/Q scan in [facility] demonstrated some slight improvement per the patient's report. I do not have any objective data at this time. She continues use her oxygen with activity and also with sleep. She continues on the blood thinners currently on Coumadin. She is tolerating it well maintaining the INR within therapeutic range. We did take her briefly for walking oximetry to see if she can tolerated conserving device. But, the patient became very tachycardic and also dyspneic. The patient still has significant pulmonary hypertension due to the chronic thromboembolic disease. This is WHO group 4. in view of her ongoing symptoms of tachycardia shortness of breath this is consistent with a [place] Heart Association class 4 where she is short of breath even at rest. Therefore, will place on vasodilators therapy, PD 5 inhibitor, to treat her underlying pulmonary hypertension. The patient was start the medication and then returned 3 months but we can repeat her echocardiogram and also repeat her 6 minute walk test with the hope that she can tolerate then the conserving device. The patient is also having significant daytime drowsiness. Her [place] score is elevated 08/01. She does have increased cardiovascular risk factors. The patient will benefit for another sleep study. She did have mild sleep apnea back in 2021. at this point she will require an in-lab sleep study. The patient will hold off for now but will further discuss it during her follow-up. [facility] Medical History (Updated 11/11/23 @ 23:25 by Odilon Land MD) Pulmonary hypertension Hypercoagulable state Thyroid cancer Chronic thromboembolic disease Lower extremity edema Multinodular thyroid Family history of deep venous thrombosis Pleuritic chest pain Pulmonary emboli Dyspnea Dyspareunia in female Anemia Obstructive sleep apnea Morbid obesity History of COVID-19 (~2020) History of pulmonary embolus (PE) (~2020) Anxiety Chronic headaches Dyspnea on exertion Diabetes type 2, controlled Hypothyroid HTN (hypertension) Hyperlipidemia Surgical History History of surgery on right wrist History of foot surgery History of tubal ligation History of carpal tunnel surgery History of ERCP History of laparoscopic cholecystectomy History of surgery Family History Father Myocardial infarction COPD (chronic obstructive pulmonary disease) Mother COPD (chronic obstructive pulmonary disease) Brother Colitis Social History Housing: House Alcohol intake: former (socially) Comment: pt d/c home Patient Tobacco Use Status: Never used Tobacco service: No Current occupational status: employed 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 Current occupational exposures/hazards: No Review of Systems Const Denies chills, Reports daytime sleepiness, Reports difficulty sleeping, Denies fever(s), Denies frequent falls, Reports headache(s), Denies night sweats, Reports snoring and Denies weight loss Eyes Reports blurry vision, Reports change in vision and Reports eye pain ENT Reports dizziness and Reports headache(s) Card Reports chest pain, Denies chest pain at rest, Denies chest pain with activity, Denies irregular heart rhythm, Denies claudication, Reports leg edema, Denies palpitations and Reports dyspnea on exertion Resp Denies cough, Denies pain on inspiration, Denies pain with cough, Reports dyspnea on exertion and Reports snoring Musc Reports deformity, Reports arthralgias, Reports joint swelling, Denies limited range of motion and Reports stiffness Neuro Reports dizziness, Denies frequent falls and Reports headache(s) Endo Denies palpitations Physical Exam Vital Signs: Last Vital Signs Pulse 92 11/11/23 14:11 Pulse Ox 98 11/11/23 14:11 Oxygen Delivery Method Room Air 11/11/23 14:11 BMI result Body Mass Index 47.9 Const General: cooperative, healthy appearing, no acute distress and alert Orientation/consciousness: oriented to person, oriented to place and oriented to time Limitations: no limitations HEENT Head: Yes normal to inspection, Yes normocephalic and Yes atraumatic Mouth: moist mucous membranes Eyes Sclerae: sclerae normal Neck Neck: Yes normal visual inspection Chest Chest palpation & inspection: normal inspection of the chest Resp Effort & Inspection: normal respiratory effort and able to speak in complete sentences Auscultation: no wheezes and diminished lung sounds Cardio Jugular venous distension: no JVD Rate: tachycardic Rhythm: regular rhythm Heart sounds: S1 normal heart sound present and S2 normal heart sound present GI Inspection: Yes normal to inspection Skin General skin exam: no rashes or lesions noted Neuro General: oriented to person, oriented to place, oriented to time and moves all extremities Gait exam (Neuro): Antalgic gait present Motor exam (neuro): 5/5 motor strength present throughout Extrem General: Yes no clubbing, cyanosis or edema Right lower extremity: knee Details: abnormal to inspection, tenderness Location: of the patella and of the lateral joint line, abnormal ROM, crepitus Location: at the kneww, deformity and warmth; no swelling and no ecchymosis Left lower extremity: knee Details: abnormal to inspection, tenderness, abnormal ROM, crepitus, deformity and warmth; no swelling and no ecchymosis Psych Appearance: grossly normal Mental Status: mental status grossly normal Speech and movement: Normal speech and movement present and Clear speech present Affect: normal affect Attitude: cooperative Thought process: Normal thought process present Thought content: Normal thought content present Insight: Good insight present (Psych) Judgement: Good judgement present (Psych) Results Reviewed Results Reviewed: CXR Assessment & Plan Assessment & Plan (1) Dyspnea: Code(s): R06.00 - Dyspnea, unspecified Qualifiers: Dyspnea type: dyspnea on exertion Qualified Code(s): R06.09 - Other forms of dyspnea (2) SREA (obstructive sleep apnea): Code(s): G47.33 - Obstructive sleep apnea (adult) (pediatric) (3) Bilateral pulmonary embolism: Code(s): I26.99 - Other pulmonary embolism without acute cor pulmonale (4) Lower extremity edema: Code(s): R60.0 - Localized edema (5) Multinodular thyroid: Code(s): E04.2 - Nontoxic multinodular goiter (6) Chronic thromboembolic disease: Code(s): I74.9 - Embolism and thrombosis of unspecified artery (7) Thyroid cancer: Code(s): C73 - Malignant neoplasm of thyroid gland (8) Pulmonary hypertension: Code(s): I27.20 - Pulmonary hypertension, unspecified Plan s/p Angioplasty continue Coumadin start Tadalafil 10mg daily continue Symbicort Coumadin clinic continue oxygen 2L with activity, continuous for now Will need a ECHO in 3 months and repeat 6MET LORRIE as needed F/U 3 months with 6MWT Orders: Orders CA echo transthoracic complete 3 Months I27.20 - Pulmonary hypertension, unspecified Medications: New tadalafil 5 mg PO DAILY 30 days 30 tabs 11RF Coding Level of Care Code Tele New Pt Level 5 (13879) Diagnoses Dyspnea on exertion R06.09 Dyspnea type: dyspnea on exertion SERA (obstructive sleep apnea) G47.33 Bilateral pulmonary embolism I26.99 Lower extremity edema R60.0 Multinodular thyroid E04.2 Chronic thromboembolic disease I74.9 Thyroid cancer C73 Pulmonary hypertension I27.20 Time Spent (min) 35
== END 2023-11-11 14:41 | disposition home or self-care (01) ==
PROVIDERS: PCP Internal Medicine; Visit Provider Hospitalist
DX: I26.99 Other pulmonary embolism without acute cor pulmonale (principal); R06.09 Other forms of dyspnea; G47.33 Obstructive sleep apnea (adult) (pediatric); R60.0 Localized edema; E04.2 Nontoxic multinodular goiter; I74.9 Embolism and thrombosis of unspecified artery; C73 Malignant neoplasm of thyroid gland; I27.20 Pulmonary hypertension, unspecified
CPT/HCPCS: 99214

== ENCOUNTER → 2023-11-11 14:09 | Outpatient (BNVA) | payer OTHER, SELFPAY | PROVIDERS: PCP Internal Medicine; Visit Provider Hospitalist | DX: R06.09 Other forms of dyspnea (principal); R60.0 Localized edema; G47.33 Obstructive sleep apnea (adult) (pediatric); I26.99 Other pulmonary embolism without acute cor pulmonale; E04.2 Nontoxic multinodular goiter; I74.9 Embolism and thrombosis of unspecified artery; I27.20 Pulmonary hypertension, unspecified; C73 Malignant neoplasm of thyroid gland | CPT/HCPCS: 99212 ==

== ENCOUNTER 2023-11-14 11:36 | Outpatient (AMB) | payer OTHER, SELFPAY ==
[2023-11-14 11:46] LABS: Prothrombin Time Whole Bld POC 32.2 sec (11.1-13.5); ~PT, ~INR - Anti Coag Clinic 2.7 (0.9-1.1)
--- NOTE | 2023-11-14 11:50 | MHC.OFFVISCO ---
Intake Intake Visit Reasons: Anticoagulation Allergies lisinopril [LISINOPRIL] Allergy (Severe, Verified 11/14/23 11:37) ANGIOEDEMA dapagliflozin [From FARXIGA] Allergy (Intermediate, Verified 11/14/23 11:37) HIVES liraglutide [From VICTOZA] Allergy (Intermediate, Verified 11/14/23 11:37) RASH metformin [METFORMIN] Allergy (Intermediate, Verified 11/14/23 11:37) GI UPSET erythromycin base [ERYTHROMYCIN BASE] Allergy (Unknown, Verified 11/14/23 11:37) UNKNOWN amitriptyline [AMITRIPTYLINE] Adverse Reaction (Intermediate, Verified 11/14/23 11:37) DRUGGED FEELING Medication List - Last Reconciled 11/14/23 by Francine Tipton RN acetaminophen ER 650 mg PO Q6H PRN albuterol sulfate 2.5 mg inhalation Q4H PRN atorvastatin 20 mg PO BEDTIME blood sugar diagnostic (FreeStyle Lite Strips) As directed cyanocobalamin (vitamin B-12) 1,000 mcg PO BEDTIME ferrous sulfate 325 mg PO MOFR@2100 glimepiride 4 mg PO BEDTIME levothyroxine 50 mcg PO BEDTIME metformin 1,000 mg PO BID nebulizers As directed Oxygen Home Use As directed Proventil HFA 90 mcg/actuation (albuterol sulfate) 2 inhalations inhalation Q6H PRN 30 days NS sertraline 50 mg PO DAILY tadalafil 5 mg PO DAILY 30 days tirzepatide (Mounjaro) 2.5 mg (0.5 mL) subcut QWEEK valsartan-hydrochlorothiazide 320-25 mg 1 tab PO BEDTIME warfarin 5 mg See Protocol PO DAILY 30 days Nursing Note Amb to ACS, wearing cont O2 feeling well Medications and supplements reviewed, sts new med Tadalafil for pulm hypertension has not started due to insurance (no warfarin interaction per micromedex) sts also she was on amoxicillin for possible sinus infection, took x 8 days completed Friday, never called us discussed raising effect on INR, hopefully she increased greens while taking- sts feeling better No other changes in health, diet, medications, or supplements Denies any unusual signs and symptoms of bruising, bleeding Denies any new Chest pain, SOB, or clotting INR: 2.7 in therapeutic range Nutritional guidance given: balance greens and reds in diet Dose: continue usual dosing;5mg x 2 days and 2.5mg x 5 days F/U INR: 2 weeks Patient verbalizes understanding of instructions given with accurate read back/ teach back of dosing noted when rechecking meds sildenafil just added to record- sts she is aware that that med may have been a possibility due to insurance but would have to take 3x daily checked and no warfarin interaction per micromedex will update EMAR next pt visit unless done by pulmonary before that Anti-Coag Initial Assessment Social Hx Patient Tobacco Use Status: Never used Tobacco alcohol intake: former (socially) Alcohol intake frequency: does not drink Cardiovascular Hx: HTN Lung Disease HX: DVT/PE (pe 2020 and 2022) Endocrine Hx: Thyroid Disease (multinodular thyroid) Musculoskeletal Hx: Arthritis (neck back feet hands knees hips) Blood Disorder Hx: Anemia and Hyperlipidemia GI Hx: Ulcers, Diverticulosis and Hemorrhoids Hx: Other (hx uti as a child) Neurological Hx: Migraines/Headaches and Other (hx concussion as a child) Cancer HX: No Psych. Illness/Depression: Yes Coding Level of Care Code Est Patient Level 1 Diagnoses Current use of anticoagulant therapy Z79.01 Time Spent (min) 20 Assessment & Plan Assessment & Plan (1) Current use of anticoagulant therapy: Code(s): Z79.01 - custodial (current) use of anticoagulants Category: Medical
== END 2023-11-14 12:13 | disposition home or self-care (01) ==
LOC: HO.ACS 11:36
PROVIDERS: PCP Internal Medicine; Visit Provider Internal Medicine
DX: Z79.01 Long term (current) use of anticoagulants (principal)

== ENCOUNTER → 2023-11-14 11:36 | Outpatient (BNVA) | payer OTHER, SELFPAY | PROVIDERS: PCP Internal Medicine; Visit Provider Internal Medicine | DX: I26.99 Other pulmonary embolism without acute cor pulmonale (principal); Z79.01 Long term (current) use of anticoagulants; Z51.81 Encounter for therapeutic drug level monitoring | CPT/HCPCS: 85610; 99211 ==

== ENCOUNTER 2023-12-02 10:20 | Outpatient (AMB) | payer OTHER, SELFPAY ==
--- NOTE | 2023-12-02 10:30 | MHC.OFFVISCO ---
Intake Intake Visit Reasons: Anticoagulation Allergies lisinopril [LISINOPRIL] Allergy (Severe, Verified 12/02/23 10:23) ANGIOEDEMA dapagliflozin [From FARXIGA] Allergy (Intermediate, Verified 12/02/23 10:23) HIVES liraglutide [From VICTOZA] Allergy (Intermediate, Verified 12/02/23 10:23) RASH metformin [METFORMIN] Allergy (Intermediate, Verified 12/02/23 10:23) GI UPSET erythromycin base [ERYTHROMYCIN BASE] Allergy (Unknown, Verified 12/02/23 10:23) UNKNOWN amitriptyline [AMITRIPTYLINE] Adverse Reaction (Intermediate, Verified 12/02/23 10:23) DRUGGED FEELING Medication List - Last Reconciled 12/02/23 by Licha Muñoz RN acetaminophen ER 650 mg PO Q6H PRN albuterol sulfate 2.5 mg inhalation Q4H PRN albuterol sulfate 90 mcg/actuation (Ventolin HFA) 2 puffs inhalation Q6H PRN atorvastatin 20 mg PO BEDTIME blood sugar diagnostic (FreeStyle Lite Strips) As directed cyanocobalamin (vitamin B-12) 1,000 mcg PO BEDTIME ferrous sulfate 325 mg PO MOFR@2100 glimepiride 4 mg PO BEDTIME levothyroxine 50 mcg PO BEDTIME metformin 1,000 mg PO BID nebulizers As directed Oxygen Home Use As directed sertraline 50 mg PO DAILY sildenafil (pulm.hypertension) 20 mg PO TID 30 days tirzepatide (Mounjaro) 2.5 mg (0.5 mL) subcut QWEEK valsartan-hydrochlorothiazide 320-25 mg 1 tab PO BEDTIME warfarin 5 mg See Protocol PO DAILY 30 days Nursing Note INR: 2.2 in therapeutic range Medications and supplements reviewed No changes in health, diet, medications, or supplements, Denies any signs and symptoms of bleeding or bruising or clotting. Bleeding, bruising, clotting discussed Nutritional guidance given REVIEW FOOD LIST WEEKLY, EAT A MIX OF FRUITS AND VEGETABLES F/U INR: 3 WEEKS Patient verbalizes understanding of instructions given Anti-Coag Initial Assessment Social Hx Patient Tobacco Use Status: Never used Tobacco alcohol intake: former (socially) Alcohol intake frequency: does not drink Cardiovascular Hx: HTN Lung Disease HX: DVT/PE (pe 2020 and 2022) Endocrine Hx: Thyroid Disease (multinodular thyroid) Musculoskeletal Hx: Arthritis (neck back feet hands knees hips) Blood Disorder Hx: Anemia and Hyperlipidemia GI Hx: Ulcers, Diverticulosis and Hemorrhoids Hx: Other (hx uti as a child) Neurological Hx: Migraines/Headaches and Other (hx concussion as a child) Cancer HX: No Psych. Illness/Depression: Yes Coding Level of Care Code Est Patient Level 1 Diagnoses Current use of anticoagulant therapy Z79.01 Assessment & Plan Assessment & Plan (1) Current use of anticoagulant therapy: Code(s): Z79.01 - alf (current) use of anticoagulants Category: Medical
[2023-12-02 10:31] LABS: Prothrombin Time Whole Bld POC 24.9 sec (11.1-13.5); ~PT, ~INR - Anti Coag Clinic 2.1 (0.9-1.1)
== END 2023-12-02 10:39 | disposition home or self-care (01) ==
LOC: HO.ACS 10:20
PROVIDERS: PCP Internal Medicine; Visit Provider Internal Medicine
DX: Z79.01 Long term (current) use of anticoagulants (principal)

== ENCOUNTER → 2023-12-02 10:20 | Outpatient (BNVA) | payer OTHER, SELFPAY | PROVIDERS: PCP Internal Medicine; Visit Provider Internal Medicine | DX: I26.99 Other pulmonary embolism without acute cor pulmonale (principal); Z79.01 Long term (current) use of anticoagulants; Z51.81 Encounter for therapeutic drug level monitoring | CPT/HCPCS: 85610; 99211 ==

== ENCOUNTER 2023-12-17 14:34 | Outpatient (AMB) | payer OTHER, SELFPAY ==
[2023-12-17 14:53] VITALS: BP 102/68; PULSE 97; BMI 48.6
--- NOTE | 2023-12-17 14:53 | A.OFFVIS_ITS ---
Intake Vital Signs 12/17/23 14:53 Height 5 ft 5 in Weight 291 lb 14.272 oz BMI 48.6 BP 102/68 Blood Pressure Location Lt brachial Position Sitting Pulse 97 Pulse Source Pulse Oximeter Intake Visit Reasons: DM-confirmed Intake Note: Patient presents today to follow up on D2MT. Last Diabetic Eye exam: 08/2023 Last Podiatry Visit:Doesn't have one Random Glucose: 105 mg/dl HgA1c: 7.4% Administrative Manager Required: No Accompanied by: Self / Same As Patient Allergies lisinopril [LISINOPRIL] Allergy (Severe, Verified 12/17/23 15:00) ANGIOEDEMA dapagliflozin [From FARXIGA] Allergy (Intermediate, Verified 12/17/23 15:00) HIVES liraglutide [From VICTOZA] Allergy (Intermediate, Verified 12/17/23 15:00) RASH metformin [METFORMIN] Allergy (Intermediate, Verified 12/17/23 15:00) GI UPSET erythromycin base [ERYTHROMYCIN BASE] Allergy (Unknown, Verified 12/17/23 15:00) UNKNOWN amitriptyline [AMITRIPTYLINE] Adverse Reaction (Intermediate, Verified 12/17/23 15:00) DRUGGED FEELING Medication List - Last Reconciled 12/17/23 by Dario Lovelace MD acetaminophen ER 650 mg PO Q6H PRN albuterol sulfate 2.5 mg inhalation Q4H PRN albuterol sulfate 90 mcg/actuation (Ventolin HFA) 2 puffs inhalation Q6H PRN atorvastatin 20 mg PO BEDTIME blood sugar diagnostic (FreeStyle Lite Strips) As directed cyanocobalamin (vitamin B-12) 1,000 mcg PO BEDTIME ferrous sulfate 325 mg PO MOFR@2100 glimepiride 4 mg PO BEDTIME levothyroxine 50 mcg PO BEDTIME metformin 1,000 mg PO BID nebulizers As directed Oxygen Home Use As directed sertraline 50 mg PO DAILY sildenafil (pulm.hypertension) 20 mg PO TID 30 days tirzepatide (Mounjaro) 2.5 mg (0.5 mL) subcut QWEEK valsartan-hydrochlorothiazide 320-25 mg 1 tab PO BEDTIME warfarin 5 mg See Protocol PO DAILY 30 days HPI HPI Comments History of Present Illness Details 48 YO F who is seen in consultation for T2DM at the request of PCP. Previously seen by endocrinology for management of a multinodular goiter by Dr. Hernandez on 03/24/2023 Initially diagnosed with T2DM in >10 yrs . Never saw endo gayle Was initially started on treatment with []. Current regimen glimeprimide 4 mg QD Mounjaro 2.5 mg Qwkly Metformin 1000 mg BID Lantus 15 units started yesterday not taking . , unfortunately, patient did not bring log book or glucometer to visit. Started Kole yesterday . POC in mid 200s on average occasional hypoglycemia Most recent A1C , Family history of T2DM in paternal grandmother no one else with diabetes . Has eyes checked yearly, last eye exam 06/2023 , denies retinopathy. Denies neuropathy, not sees podiatry. Denies nephropathy, on ASIF/ARB. . Has HLD, on statin. . Denies CAD. Not Had diabetes education. [facility] Medical History (Updated 11/11/23 @ 23:25 by Odilon Land MD) Pulmonary hypertension Hypercoagulable state Thyroid cancer Chronic thromboembolic disease Lower extremity edema Multinodular thyroid Family history of deep venous thrombosis Pleuritic chest pain Pulmonary emboli Dyspnea Dyspareunia in female Anemia Obstructive sleep apnea Morbid obesity History of COVID-19 (~2020) History of pulmonary embolus (PE) (~2020) Anxiety Chronic headaches Dyspnea on exertion Diabetes type 2, controlled Hypothyroid HTN (hypertension) Hyperlipidemia Surgical History History of angioplasty History of surgery on right wrist History of foot surgery History of tubal ligation History of carpal tunnel surgery History of ERCP History of laparoscopic cholecystectomy History of surgery Family History Father Myocardial infarction COPD (chronic obstructive pulmonary disease) Mother COPD (chronic obstructive pulmonary disease) Brother Colitis Social History Housing: House Alcohol intake: former (socially) Comment: pt d/c home Patient Tobacco Use Status: Never used Tobacco service: No Current occupational status: employed 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 Absence of acromegalic features. Neck exam reveals nl size thyroid about 15 gms. No thyroid nodules palpable. No carotid bruits present. Lungs CTA. Heart S1 S2, Reg R/R. No M/R/ G. Skin exam reveals absence of vitiligo or acanthosis nigricans. Abdominal exam reveals Soft NT/ND with NA BS. No organomegaly present. Neck Other: . Extrem Other: Visual exam of foot performed. No ulcerations or open lesions. No onchomycosis, no callouses.Pulses 2 + distally Sensation intact to monofilament exam. Vibratory sensation sensed is intact with 128 Hz tuning fork. There is 2+ edema present lower extremities around the ankles Results AMB Hemoglobin A1c AMB Hemoglobin A1c 7.4 % Last Edit by ALYSSA Corbett on 12/17/23 15:22 Results Reviewed Results Reviewed: Laboratory Last Values Glucose (Clinic) 105 mg/dL (60-115) 12/17/23 15:03 Hgb A1c (Clinic) 7.4 % (4.0-6.0) H 12/17/23 15:22 Assessment & Plan Assessment & Plan (1) Diabetes mellitus: Code(s): E11.9 - Type 2 diabetes mellitus without complications Plan: This is a 47-year-old white female with a history of type 2 diabetes being treated with glimepiride and metformin and Mounjaro with improved but not optimal glycemic control and no known microvascular or macrovascular complications. Plan is to increase Mounjaro to 5 mg Qwkly Also told pt that the patient check her point cares pre and post meals and bring the glucometer with her to follow- up visit. Will sent to early childhood educator aide and f/u with service superintendent. . Orders: Orders AMB Hemoglobin A1c Today E11.9 - Type 2 diabetes mellitus without complications, Z13.9 - Encounter for screening, unspecified Referrals Diabetes Education Referral E11.9 - Type 2 diabetes mellitus without complications Medications: New tirzepatide (Mounjaro) 5 mg (0.5 mL) subcut QWEEK 2 mL 5RF Discontinued tirzepatide (Mounjaro) Discontinued Reason: Doctor's Order 2.5 mg (0.5 mL) subcut QWEEK 2 mL 4RF Coding Level of Care Code Est Pt Level 4 (41188) Diagnoses Diabetes mellitus E11.9
[2023-12-17 15:08] LABS: Glucose, Whole Blood 105 mg/dL (60-115)
== END 2023-12-17 15:21 | disposition home or self-care (01) ==
PROVIDERS: PCP Internal Medicine; Visit Provider Internal Medicine Endocrinology, Diabetes & Metabolism
DX: Z13.9 Encounter for screening, unspecified (principal); E11.9 Type 2 diabetes mellitus without complications
CPT/HCPCS: 99214

== ENCOUNTER → 2023-12-17 14:34 | Outpatient (BNVA) | payer OTHER, SELFPAY | PROVIDERS: PCP Internal Medicine; Visit Provider Internal Medicine Endocrinology, Diabetes & Metabolism | DX: E11.9 Type 2 diabetes mellitus without complications (principal) | CPT/HCPCS: 82947; 83036; 99212 ==

== ENCOUNTER 2023-12-23 16:00 | Outpatient (AMB) | payer OTHER, SELFPAY ==
[2023-12-23 16:07] LABS: Prothrombin Time Whole Bld POC 36.5 sec (11.1-13.5)
--- NOTE | 2023-12-23 16:10 | MHC.OFFVISCO ---
Intake Intake Visit Reasons: Anticoagulation Allergies lisinopril [LISINOPRIL] Allergy (Severe, Verified 12/23/23 16:00) ANGIOEDEMA dapagliflozin [From FARXIGA] Allergy (Intermediate, Verified 12/23/23 16:00) HIVES liraglutide [From VICTOZA] Allergy (Intermediate, Verified 12/23/23 16:00) RASH metformin [METFORMIN] Allergy (Intermediate, Verified 12/23/23 16:00) GI UPSET erythromycin base [ERYTHROMYCIN BASE] Allergy (Unknown, Verified 12/23/23 16:00) UNKNOWN amitriptyline [AMITRIPTYLINE] Adverse Reaction (Intermediate, Verified 12/23/23 16:00) DRUGGED FEELING Medication List - Last Reconciled 12/23/23 by Francine Tipton RN acetaminophen ER 650 mg PO Q6H PRN albuterol sulfate 2.5 mg inhalation Q4H PRN albuterol sulfate 90 mcg/actuation (Ventolin HFA) 2 puffs inhalation Q6H PRN atorvastatin 20 mg PO BEDTIME blood sugar diagnostic (FreeStyle Lite Strips) As directed cyanocobalamin (vitamin B-12) 1,000 mcg PO BEDTIME ferrous sulfate 325 mg PO MOFR@2100 glimepiride 4 mg PO BEDTIME levothyroxine 50 mcg PO BEDTIME metformin 1,000 mg PO BID nebulizers As directed Oxygen Home Use As directed sertraline 50 mg PO DAILY sildenafil (pulm.hypertension) 20 mg PO TID 30 days tirzepatide (Mounjaro) 5 mg (0.5 mL) subcut QWEEK valsartan-hydrochlorothiazide 320-25 mg 1 tab PO BEDTIME warfarin 5 mg See Protocol PO DAILY 30 days Nursing Note Amb to ACS wearing Cont O2 NC sts not feeling great today sts having some back pain, points to mid to lower back denies any increase pain with deep breath, sts it just really started relates also that kids are out of school so she is watching nieces children more than usual Medications and supplements reviewed No other changes in health, diet, medications, or supplements, Denies any signs and symptoms of bleeding or bruising or clotting. INR 3.0 top of therapeutic range Nutritional guidance given- increase greens and especially if taking tylenol for back (has not as of this visit) Dose: continue usual dosing 5mg x 2 days and 2.5mg x 5 days F/U INR: 3 weeks, sooner if back issues require treatment or any med changes Patient verbalizes understanding of instructions given Anti-Coag Initial Assessment Social Hx Patient Tobacco Use Status: Never used Tobacco alcohol intake: former (socially) Alcohol intake frequency: does not drink Cardiovascular Hx: HTN Lung Disease HX: DVT/PE (pe 2020 and 2022) Endocrine Hx: Thyroid Disease (multinodular thyroid) Musculoskeletal Hx: Arthritis (neck back feet hands knees hips) Blood Disorder Hx: Anemia and Hyperlipidemia GI Hx: Ulcers, Diverticulosis and Hemorrhoids Hx: Other (hx uti as a child) Neurological Hx: Migraines/Headaches and Other (hx concussion as a child) Cancer HX: No Psych. Illness/Depression: Yes Coding Level of Care Code Est Patient Level 1 Diagnoses Current use of anticoagulant therapy Z79.01 Time Spent (min) 15 Assessment & Plan Assessment & Plan (1) Current use of anticoagulant therapy: Code(s): Z79.01 - jail (current) use of anticoagulants Category: Medical
== END 2023-12-23 16:19 | disposition home or self-care (01) ==
LOC: HO.ACS 16:00
PROVIDERS: PCP Internal Medicine; Visit Provider Internal Medicine
DX: Z79.01 Long term (current) use of anticoagulants (principal)

== ENCOUNTER → 2023-12-23 16:00 | Outpatient (BNVA) | payer OTHER, SELFPAY | PROVIDERS: PCP Internal Medicine; Visit Provider Internal Medicine | DX: I26.99 Other pulmonary embolism without acute cor pulmonale (principal); Z79.01 Long term (current) use of anticoagulants; Z51.81 Encounter for therapeutic drug level monitoring | CPT/HCPCS: 85610; 99211 ==

== ENCOUNTER 2023-12-25 11:11 | Outpatient (REF) | payer OTHER, SELFPAY ==
[2023-12-25 11:55] LABS: Estimated Average Glucose 160 mg/dL; Hemoglobin A1c % 7.2 % (<6.0)
[2023-12-25 12:25] LABS: Alanine Aminotransferase 14 U/L (0-31); Alkaline Phosphatase 75 U/L (39-117); Anion Gap 11 (12-20); Aspartate Amino Transferase 14 U/L (5-31); Bilirubin Total 0.4 mg/dL (0.0-1.0); Blood Urea Nitrogen 25 mg/dL (9-16); Calcium 9.2 mg/dL (8.4-10.2); Carbon Dioxide 25 mmol/L (22-29); Chloride 107 mmol/L (96-108); Estimated Glomerular Filt Rate 30; Glucose Random 119 mg/dL (60-115); Potassium 3.3 mmol/L (3.3-5.1); Sodium 140 mmol/L (135-145)
[2023-12-25 12:42] LABS: Thyroid Stimulating Hormone 1.05 uIU/mL (0.32-4.0)
== END 2023-12-25 11:12 | disposition home or self-care (01) ==
LOC: HO.LAB 11:11
PROVIDERS: PCP Internal Medicine; Visit Provider Internal Medicine
DX: Z00.00 Encounter for general adult medical examination without abnormal findings (principal); E11.9 Type 2 diabetes mellitus without complications; E03.8 Other specified hypothyroidism; F32.2 Major depressive disorder, single episode, severe without psychotic features; I27.24 Chronic thromboembolic pulmonary hypertension; R80.8 Other proteinuria
CPT/HCPCS: 36415; 80053; 83036; 84443

== ENCOUNTER 2023-12-30 14:55 | Outpatient (AMB) | payer OTHER, SELFPAY ==
--- NOTE | 2023-12-30 15:37 | MHC.AMDMED ---
Intake Intake Visit Reasons: DM Street Light Lamp Cleaner Required: No Accompanied by: Self / Same As Patient Allergies lisinopril [LISINOPRIL] Allergy (Severe, Verified 12/23/23 16:00) ANGIOEDEMA dapagliflozin [From FARXIGA] Allergy (Intermediate, Verified 12/23/23 16:00) HIVES liraglutide [From VICTOZA] Allergy (Intermediate, Verified 12/23/23 16:00) RASH metformin [METFORMIN] Allergy (Intermediate, Verified 12/23/23 16:00) GI UPSET erythromycin base [ERYTHROMYCIN BASE] Allergy (Unknown, Verified 12/23/23 16:00) UNKNOWN amitriptyline [AMITRIPTYLINE] Adverse Reaction (Intermediate, Verified 12/23/23 16:00) DRUGGED FEELING HPI Comprehensive Diabetes Asmnt Most Recent Diabetes Results: Hemoglobin A1c 8.5 % 03/21/20 Microalb/Creat Ratio 26.3 ug/mg cr (<30) 06/26/23 Cholesterol 138 mg/dL (<200) 06/26/23 HDL Cholesterol 41 mg/dL (>40) 06/26/23 Triglycerides 201 mg/dL (<150) H 06/26/23 Creatinine 1.79 mg/dL (0.5-1.4) H 12/25/23 Blood Urea Nitrogen 25 mg/dL (9-16) H 12/25/23 Sodium 140 mmol/L (135-145) 12/25/23 Potassium 3.3 mmol/L (3.3-5.1) 12/25/23 Chloride 107 mmol/L (96-108) 12/25/23 Carbon Dioxide 25 mmol/L (22-29) 12/25/23 Calcium 9.2 mg/dL (8.4-10.2) 12/25/23 AST 14 U/L (5-31) 12/25/23 ALT 14 U/L (0-31) 12/25/23 Total Protein 7.0 g/dL (6.5-8.0) 12/25/23 Albumin 4.0 g/dL (3.5-5.0) 12/25/23 [facility] Medical History (Updated 11/11/23 @ 23:25 by Odilon Land MD) Pulmonary hypertension Hypercoagulable state Thyroid cancer Chronic thromboembolic disease Lower extremity edema Multinodular thyroid Family history of deep venous thrombosis Pleuritic chest pain Pulmonary emboli Dyspnea Dyspareunia in female Anemia Obstructive sleep apnea Morbid obesity History of COVID-19 (~2020) History of pulmonary embolus (PE) (~2020) Anxiety Chronic headaches Dyspnea on exertion Diabetes type 2, controlled Hypothyroid HTN (hypertension) Hyperlipidemia Surgical History History of angioplasty History of surgery on right wrist History of foot surgery History of tubal ligation History of carpal tunnel surgery History of ERCP History of laparoscopic cholecystectomy History of surgery Family History Father Myocardial infarction COPD (chronic obstructive pulmonary disease) Mother COPD (chronic obstructive pulmonary disease) Brother Colitis Social History Housing: House Alcohol intake: former (socially) Comment: pt d/c home Patient Tobacco Use Status: Never used Tobacco service: No Current occupational status: employed 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 The patient met all learning objectives and was able to verbalize understanding and provide teach back of education topics discussed . The patient was provided with the opportunity to ask questions and all questions were answered. Patient Assessment Assess patient education level/literacy/barriers Patient questions/concerns, patient's last A1c 12/17/2023 7.4%, down from 9.5% in May 2023. Patient has not picked up Mounjaro 5 mg, prescription sent to wrong pharmacy requested prescription be sent to correct pharmacy. Patient reports she does most of her food shopping, and cooking. She lives daughter and her , she is not working at this time Patient currently on metformin 1000 mg b.i.d. Glimepiride 4 mg daily Mounjaro 2.5 mg weekly What is Diabetes? Pathophysiology How the body produces and uses insulin Identify type of DM Risk factors Signs of Diabetes Brief overview of Diabetes Management Monitoring blood sugar Following a meal plan Regular exercise Maintaining a healthy weight Taking medication as needed Members of the care team (PCP, RN, MA, RD, CDE, field technical specialist) Blood glucose monitoring When/how often to test Target blood sugar ranges Patient reports testing glucose twice a day Did not bring meter to today's visit 12/28/2023 fasting 112 mg/dL, 2 hours post supper 114 mg/dL 12/29/2023 post breakfast 146 mg/dL, post supper 156 mg/dL Fasting for 11/26/2023 124 mg/dL Introduction to Nutrition Importance of healthy diet in managing DM Diet is personalized to individual preference Review patient?s regular diet/food preferences Who prepares meals/does food shopping/ Dining out?/ Barriers? How diet effects glucose Eating 3 balanced meals a day with small, healthy snacks between meals Review food groups Carbohydrates: What is a carbohydrate/Which food/food groups are considered carbohydrates Effect of carbohydrates on blood glucose Portion sizes Reading food labels Basic carb counting (if applicable per nursing assessment) Plate method Meal planning Recommendations: Follow plate method, consistent carbs and read nutritional labels. Smart Goal: Patient will keep carbohydrate portions from 30-45 g per meal Educational Materials: The patient was provided with the following written educational materials: Planning Healthy Meals Handout Patient Response to instructions: Comprehension of Instructions: Good Readiness to make changes: Contemplation How confident they feel about making changes: Positive Patient Instructions: Include regular daily activity. ADA recommends 30 minutes of exercise 5 days a week. Weight loss talk to PCP or Ortho Tech before starting new plan. Test blood sugar as directed; Fasting and 2hpp largest meal. Watch trends in results. Utilize results and to assess how food, physical activity and medications affect blood sugar results. Bring glucometer or CGM to next visit. Be knowledgeable about diabetes medication, its action, side effects, efficacy, toxicity, prescribed dosage, appropriate timing and frequency of administration, effect of missed and delayed doses and instructions for storage, travel and safety. Problem solving techniques to monitor hypo/hyperglycemia episodes and treatments. Reduce risk reduction behaviors, smoking cessation, regular eye, foot and dental examinations. Coding Level of Care Code Est Pt Level 1 (14387) Diagnoses T2DM (type 2 diabetes mellitus) E11.9
== END 2023-12-30 15:40 | disposition home or self-care (01) ==
PROVIDERS: PCP Internal Medicine; Visit Provider Registered Nurse Diabetes Educator
DX: E11.9 Type 2 diabetes mellitus without complications (principal)

== ENCOUNTER → 2023-12-30 14:55 | Outpatient (BNVA) | payer OTHER, SELFPAY | PROVIDERS: PCP Internal Medicine; Visit Provider Registered Nurse Diabetes Educator | DX: E11.9 Type 2 diabetes mellitus without complications (principal); Z71.3 Dietary counseling and surveillance | CPT/HCPCS: 99211 ==

== ENCOUNTER 2024-01-08 15:03 | Outpatient (AMB) | payer OTHER, SELFPAY ==
[2024-01-08 15:05] VITALS: BP 110/70; PULSE 99; O2SAT 98; BMI 48.9
--- NOTE | 2024-01-08 15:05 | HO.NEPHOV_ITS ---
Vital Signs 01/08/24 15:05 Height 5 ft 5 in Weight 294 lb BMI 48.9 BP 110/70 Blood Pressure Location Lt brachial Position Sitting Pulse 99 Pulse Source Pulse Oximeter Pulse Oximetry (%) 98 Oxygen Delivery Method Room Air Intake Visit Reasons: CKD/ Confirmed Small Business Representative Required: No Accompanied by: Self / Same As Patient Allergies lisinopril [LISINOPRIL] Allergy (Severe, Verified 01/08/24 15:08) ANGIOEDEMA dapagliflozin [From FARXIGA] Allergy (Intermediate, Verified 01/08/24 15:08) HIVES liraglutide [From VICTOZA] Allergy (Intermediate, Verified 01/08/24 15:08) RASH metformin [METFORMIN] Allergy (Intermediate, Verified 01/08/24 15:08) GI UPSET erythromycin base [ERYTHROMYCIN BASE] Allergy (Unknown, Verified 01/08/24 15:08) UNKNOWN amitriptyline [AMITRIPTYLINE] Adverse Reaction (Intermediate, Verified 01/08/24 15:08) DRUGGED FEELING HPI Comments Details: Domonique is a pleasant 48-year-old woman with a history of diabetes mellitus and hypertension with mild CKD. Baseline serum creatinine is around 1.1 mg/dL with EGFR of about 50-60 mL/minute. He recently there has been a bump in the serum creatinine and as of December 2023 creatinine was 1.7 with EGFR of 30 mL/minute and she has been referred for further evaluation. In June 2023 and prior to that she had no significant microalbuminuria. Previous urinalysis was benign. She has had no imaging studies for the kidney She has a complicated history including COVID-19 infection in October of 2020 which was complicated by pulmonary embolism. She has undergone angioplasty at [facility]. She is on anticoagulation. She is being followed by Dr. Land from Pulmonary. She has been diagnosed with factor 5 laden deficiency She has chronic anemia. She is on iron supplementation but there has been no significant improvement in hemoglobin. She has microcytic picture Upon reviewing the labs she has had thrombocytopenia since April 2023 and the recent platelet count is [id number]. Domonique has no hemoptysis. No chest pain. No gross hematuria. No edema. No new rash or petechia. No joint pains. No nausea vomiting no diarrhea constipation no weight loss. Mother at age of 61 and she had kidney disease. She has 3 brothers no family history of any connective tissue disease or end stage renal disease She has 1 daughter age 22 and normal delivery. [facility] Medical History (Updated 01/08/24 @ 15:48 by Franklyn Skinner MD) Pulmonary hypertension Hypercoagulable state Thyroid cancer Chronic thromboembolic disease Lower extremity edema Multinodular thyroid Family history of deep venous thrombosis Pleuritic chest pain Pulmonary emboli Dyspnea Dyspareunia in female Anemia Obstructive sleep apnea Morbid obesity History of COVID-19 (~2020) History of pulmonary embolus (PE) (~2020) Anxiety Chronic headaches Dyspnea on exertion Diabetes type 2, controlled Hypothyroid HTN (hypertension) Hyperlipidemia Surgical History History of angioplasty History of surgery on right wrist History of foot surgery History of tubal ligation History of carpal tunnel surgery History of ERCP History of laparoscopic cholecystectomy History of surgery Family History Father Myocardial infarction COPD (chronic obstructive pulmonary disease) Mother COPD (chronic obstructive pulmonary disease) Brother Colitis Social History Housing: House Alcohol intake: former (socially) Comment: pt d/c home Patient Tobacco Use Status: Never used Tobacco service: No Current occupational status: employed 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 Current occupational exposures/hazards: No Physical Exam Vital Signs: Last Vital Signs Pulse 99 01/08/24 15:05 BP 110/70 01/08/24 15:05 Pulse Ox 98 01/08/24 15:05 Oxygen Delivery Method Room Air 01/08/24 15:05 BMI result Body Mass Index 48.9 Const General: comfortable Orientation/consciousness: patient oriented x3 HEENT Head: No normal to inspection Mouth: moist mucous membranes Neck Neck: Yes supple and Yes no JVD Resp Auscultation: clear to auscultation bilaterally, no rales and rub present Cardio Jugular venous distension: no JVD Palpation: no palpable S3 and no palpable S4 Heart sounds: no rubs GI Palpation (GI): Soft to palpation and nontender Percussion: No Fluid wave present General: Yes no CVA tenderness Back/Spine/Pelvis Back: no CVA tenderness Skin General skin exam: no rashes or lesions noted Neuro General: patient oriented x3 Gait exam (Neuro): Normal gait present Motor exam (neuro): 5/5 motor strength present throughout Extrem General: Yes no pedal edema and No clubbing Results Reviewed Nephrology Results: Sodium 140 mmol/L (135-145) 12/25/23 Potassium 3.3 mmol/L (3.3-5.1) 12/25/23 Chloride 107 mmol/L (96-108) 12/25/23 Carbon Dioxide 25 mmol/L (22-29) 12/25/23 BUN 25 mg/dL (9-16) H 12/25/23 Creatinine 1.79 mg/dL (0.5-1.4) H 12/25/23 Calcium 9.2 mg/dL (8.4-10.2) 12/25/23 Assessment & Plan Assessment & Plan (1) CKD (chronic kidney disease): Code(s): N18.9 - Chronic kidney disease, unspecified Category: Medical (2) Pulmonary hypertension: Code(s): I27.20 - Pulmonary hypertension, unspecified Category: Medical (3) T2DM (type 2 diabetes mellitus): Code(s): E11.9 - Type 2 diabetes mellitus without complications Category: Medical (4) Thyroid cancer: Code(s): C73 - Malignant neoplasm of thyroid gland Category: Medical (5) Thrombocytopenia: Code(s): D69.6 - Thrombocytopenia, unspecified Category: Medical Plan 48-year-old woman with a history of diabetes mellitus has acute kidney injury superimposed on chronic kidney disease. Underlying chronic kidney disease may be due to longstanding diabetes mellitus in a setting obesity and hypertension. The differential diagnosis for acute kidney injury is rather extensive. Today the blood pressure was rather low and she is on a high dose of ARB and diuretic. I suspect she has a component of hypoperfusion leading to LEXUS. Obstructive uropathy should be ruled out. Underlying glomerulonephritis and interstitial disease should also be ruled out. She has unexplained thrombocytopenia. Recommendations Extensive workup as outlined. This would include renal ultrasonogram urine studies and serological workup. Since blood pressure is low I will stop valsartan hydrochlorothiazide for now. Recheck renal panel in 1 week. Encouraged to continue avoiding NSAIDs and other nephrotoxins. Maintain adequate intake Further workup will depend on the outcome of the above baseline next occasions. Orders: Orders Myeloperoxidase Antibody 6 Days N18.9 - Chronic kidney disease, unspecified Proteinase 3 PR3 Antibodies 6 Days N18.9 - Chronic kidney disease, unspecified Anti Glomerular Basement Memb 6 Days N18.9 - Chronic kidney disease, unspecified Protein Electrophoresis, Serum 6 Days N18.9 - Chronic kidney disease, unspecified Total Protein Urine Random 6 Days N18.9 - Chronic kidney disease, unspecified US renal BI Today N18.9 - Chronic kidney disease, unspecified IRON PROFILE 6 Days N18.9 - Chronic kidney disease, unspecified Anti DNA DS Antibody 6 Days N18.9 - Chronic kidney disease, unspecified ANANDA Reflex Titer and Pattern 6 Days N18.9 - Chronic kidney disease, unspecified Neutrophil Cytoplasma Ab 6 Days N18.9 - Chronic kidney disease, unspecified Complement C3 6 Days N18.9 - Chronic kidney disease, unspecified Complement C4 6 Days N18.9 - Chronic kidney disease, unspecified UA and rflx microscopic 6 Days N18.9 - Chronic kidney disease, unspecified Creatinine Urine 6 Days N05.9 - Unspecified nephritic syndrome with unspecified morphologic changes, N18.9 - Chronic kidney disease, unspecified Coding Level of Care Code New Pt Level 5 (79920) Diagnoses CKD (chronic kidney disease) N18.9 Pulmonary hypertension I27.20 T2DM (type 2 diabetes mellitus) E11.9 Thyroid cancer C73 Thrombocytopenia D69.6
== END 2024-01-08 15:45 | disposition home or self-care (01) ==
PROVIDERS: PCP Internal Medicine; Visit Provider Internal Medicine Hypertension Specialist
DX: I27.20 Pulmonary hypertension, unspecified (principal); E11.22 Type 2 diabetes mellitus with diabetic chronic kidney disease; N18.2 Chronic kidney disease, stage 2 (mild); C73 Malignant neoplasm of thyroid gland; D69.6 Thrombocytopenia, unspecified; N17.9 Acute kidney failure, unspecified
CPT/HCPCS: 99205

== ENCOUNTER → 2024-01-08 15:03 | Outpatient (BNVA) | payer OTHER, SELFPAY | PROVIDERS: PCP Internal Medicine; Visit Provider Internal Medicine Hypertension Specialist | DX: E11.22 Type 2 diabetes mellitus with diabetic chronic kidney disease (principal); N18.9 Chronic kidney disease, unspecified; I27.20 Pulmonary hypertension, unspecified; D69.6 Thrombocytopenia, unspecified; C73 Malignant neoplasm of thyroid gland | CPT/HCPCS: 99202 ==

== ENCOUNTER 2024-01-13 08:12 | Outpatient (AMB) | payer OTHER, SELFPAY ==
[2024-01-13 08:28] LABS: ~PT, ~INR - Anti Coag Clinic 2.1 (0.9-1.1)
--- NOTE | 2024-01-13 08:30 | MHC.OFFVISCO ---
Intake Intake Visit Reasons: Anticoagulation Allergies lisinopril [LISINOPRIL] Allergy (Severe, Verified 01/13/24 08:24) ANGIOEDEMA dapagliflozin [From FARXIGA] Allergy (Intermediate, Verified 01/13/24 08:24) HIVES liraglutide [From VICTOZA] Allergy (Intermediate, Verified 01/13/24 08:24) RASH metformin [METFORMIN] Allergy (Intermediate, Verified 01/13/24 08:24) GI UPSET erythromycin base [ERYTHROMYCIN BASE] Allergy (Unknown, Verified 01/13/24 08:24) UNKNOWN amitriptyline [AMITRIPTYLINE] Adverse Reaction (Intermediate, Verified 01/13/24 08:24) DRUGGED FEELING Medication List - Last Reconciled 01/13/24 by Francine Mitchell RN acetaminophen ER 650 mg PO Q6H PRN albuterol sulfate 2.5 mg inhalation Q4H PRN albuterol sulfate 90 mcg/actuation (Ventolin HFA) 2 puffs inhalation Q6H PRN atorvastatin 20 mg PO BEDTIME blood sugar diagnostic (FreeStyle Lite Strips) As directed cyanocobalamin (vitamin B-12) 1,000 mcg PO BEDTIME ferrous sulfate 325 mg PO MOFR@2100 glimepiride 4 mg PO BEDTIME levothyroxine 50 mcg PO DAILY metformin 1,000 mg PO BID nebulizers As directed Oxygen Home Use As directed sertraline 50 mg PO DAILY sildenafil (pulm.hypertension) 20 mg PO TID 30 days tirzepatide (Mounjaro) 2.5 mg (0.5 mL) subcut QWEEK 4 weeks valsartan-hydrochlorothiazide 320-25 mg 1 tab PO BEDTIME warfarin 5 mg See Protocol PO DAILY 30 days Nursing Note INR: 2.1 in therapeutic range od 2-3 Medications and supplements reviewed: no changes No changes in health, diet, medications, or supplements, Denies any signs and symptoms of bleeding or bruising or clotting. Bleeding, bruising, clotting discussed Nutritional guidance given to avoid greens today and have a serving of foods that raise the INR today. Pt to review food list. Dose: 5mg X2 days and 2.5mg X 5 days F/U INR: 2 weeks Patient verbalizes understanding of instructions given Anti-Coag Initial Assessment Social Hx Patient Tobacco Use Status: Never used Tobacco alcohol intake: former (socially) Alcohol intake frequency: does not drink Cardiovascular Hx: HTN Lung Disease HX: DVT/PE (pe 2020 and 2022) Endocrine Hx: Thyroid Disease (multinodular thyroid) Musculoskeletal Hx: Arthritis (neck back feet hands knees hips) Blood Disorder Hx: Anemia and Hyperlipidemia GI Hx: Ulcers, Diverticulosis and Hemorrhoids Hx: Other (hx uti as a child) Neurological Hx: Migraines/Headaches and Other (hx concussion as a child) Cancer HX: No Psych. Illness/Depression: Yes Coding Level of Care Code Est Patient Level 1 Diagnoses Current use of anticoagulant therapy Z79.01 Assessment & Plan Assessment & Plan (1) Current use of anticoagulant therapy: Code(s): Z79.01 - long term (current) use of anticoagulants Category: Medical
== END 2024-01-13 08:34 | disposition home or self-care (01) ==
LOC: HO.ACS 08:12
PROVIDERS: PCP Internal Medicine; Visit Provider Internal Medicine
DX: Z79.01 Long term (current) use of anticoagulants (principal)

== ENCOUNTER → 2024-01-13 08:12 | Outpatient (BNVA) | payer OTHER, SELFPAY | PROVIDERS: PCP Internal Medicine; Visit Provider Internal Medicine | DX: I26.99 Other pulmonary embolism without acute cor pulmonale (principal); Z51.81 Encounter for therapeutic drug level monitoring; Z79.01 Long term (current) use of anticoagulants | CPT/HCPCS: 85610; 99211 ==

== ENCOUNTER 2024-01-14 08:17 | Outpatient (REF) | payer OTHER, SELFPAY ==
[2024-01-14 09:44] LABS: Iron 29 mcg/dL (30-160); Percent Iron Saturation 9 % (15-50); Total Iron Binding Capacity 312 mcg/dL (228-428); Unsaturated Iron Binding 283 ug/dL
[2024-01-14 09:59] LABS: Appearance Urine Clear; Color Urine Yellow; Glucose Urine UA Negative (Negative); Leukocyte Esterase Urine Negative (Negative); Nitrite Urine Negative (Negative); PH 5.5 (5.0-9.0); Specific Gravity - Urine 1.015 (1.005-1.025); Urine Blood Negative (Negative); Urine Ketones Negative (Negative); Urine Protein Trace mg/dL (Neg-Trace)
[2024-01-14 10:37] LABS: Creatinine Urine 91.65 mg/dL; Total Protein Urine Random 11 mg/dL (<12)
[2024-01-15 12:03] LABS: Prot Elec - Albumin 3.6 g/dL (3.8-4.8); Prot Elec - Alpha1 0.3 g/dL (0.2-0.3); Prot Elec - Alpha2 0.9 g/dL (0.5-0.9); Prot Elec - Beta 1 0.5 g/dL (0.4-0.6); Prot Elec - Beta 2 0.4 g/dL (0.2-0.5); Prot Elec - Gamma 0.7 g/dL (0.8-1.7); Prot Elec - Total Protein 6.4 g/dL (6.1-8.1)
[2024-01-15 13:53] LABS: Complement C3 61 mg/dL (83-193)
[2024-01-15 21:38] LABS: Anti DNA DS Antibody <1 IU/mL; Anti Glomerular Basement Memb <1.0 AI; Myeloperoxidase Antibody <1.0 AI; Proteinase 3 PR3 Antibodies <1.0 AI
[2024-01-18 12:45] LABS: Anti Nuclear Antibody Pattern Nuclear, Homogeneous; Anti Nuclear Antibody Screen POSITIVE (NEGATIVE)
[2024-01-19 14:37] LABS: Neutrophil Cyto Ab Screen NEGATIVE (NEGATIVE)
== END 2024-01-14 08:18 | disposition home or self-care (01) ==
LOC: HO.LAB 08:17
PROVIDERS: Visit Provider Internal Medicine Hypertension Specialist
DX: N18.9 Chronic kidney disease, unspecified (principal); N05.9 Unspecified nephritic syndrome with unspecified morphologic changes
CPT/HCPCS: 36415; 81003; 82570; 83520; 83540; 84156; 84165; 86021; 86036; 86038; 86039; 86160; 86225

== ENCOUNTER 2024-01-15 00:31 | Emergency (ER) | payer OTHER, SELFPAY ==
--- NOTE | ~2024-01-15 | XR_ITS ---
EXAMINATION: XR CHEST CLINICAL INFORMATION: Productive cough COMPARISON: 04/01/2023 TECHNIQUE: 2 views of the chest were obtained. FINDINGS: Lung volumes are symmetric. No focal consolidation is seen. Possible mild central peribronchial thickening. No evidence of pneumothorax, pleural effusion, or pulmonary edema. The cardiomediastinal contour is unremarkable. No acute osseous findings are seen. XR/XR chest 2V IMPRESSION: No focal consolidation. Possible mild central peribronchial thickening.
[2024-01-15 01:36] VITALS: BP 148/78; PULSE 91; RESP 18; TEMP 36.7; O2SAT 97; BMI 47.3
[2024-01-15 02:13] LABS: IDNOW Serial# 6674DD1D; Strep A Nucleic Acid Negative (Negative)
[2024-01-15 03:30] LABS: Influenza A PCR NEGATIVE (Negative); Influenza B PCR NEGATIVE (Negative); Resp Syncy Virus RNA Qual PCR NEGATIVE (Negative); SARS COV2 PCR INHOUSE NEGATIVE (Negative)
[2024-01-15 05:58] VITALS: BP 154/79; PULSE 84; RESP 16; TEMP 36.3; O2SAT 96
--- NOTE | 2024-01-15 06:29 | ED.GENADULT ---
HPI - General Adult General Chief complaint: Upper Respiratory Symptoms Stated complaint: Sore throat Time Seen by Provider: 01/15/24 06:24 Source: patient Mode of arrival: ambulatory Limitations: no limitations History of Present Illness HPI narrative: Patient is a 48-year-old female with history of pulmonary hypertension, thyroid cancer, SERA, anemia, T2DM, HTN presenting to the emergency department with complaint of sore throat intermittent for the past 2 weeks but worsening over the past few days. Reports mild cough initially which has since resolved. Denies fevers. States pain seems worse at night. Has not taken any OTC medications for her symptoms. Saw PCP for same on Friday and was told symptoms due to viral illness. Denies current cough, chest pain, palpitations, shortness of breath. Denies abdominal pain, nausea, vomiting, diarrhea, constipation. MD complaint: sore throat Onset (ago): day(s) Severity: severe Quality: burning Pain Consistency: constant Associated symptoms: denies other symptoms Treatments prior to arrival: none Related Data Home Medications ?Medication ?Instructions ?Recorded ?Confirmed atorvastatin 20 mg tablet 20 mg PO BEDTIME 09/14/20 01/13/24 glimepiride 4 mg tablet 4 mg PO BEDTIME 09/14/20 01/13/24 blood sugar diagnostic (FreeStyle #10 ea 02/26/22 01/13/24 Lite Strips) cyanocobalamin (vitamin B-12) 1,000 mcg PO BEDTIME 08/16/22 01/13/24 1,000 mcg tablet valsartan 320 1 tab PO BEDTIME 08/16/22 01/13/24 mg-hydrochlorothiazide 25 mg tablet ferrous sulfate 325 mg (65 mg 325 mg PO MOFR@2100 10/25/22 01/13/24 iron) tablet albuterol sulfate 2.5 mg/3 mL 2.5 mg inhalation Q4H PRN Wheezing 01/31/23 01/13/24 (0.083 %) solution for nebulization acetaminophen 650 mg 650 mg PO Q6H PRN pain 03/03/23 01/13/24 tablet,extended release Oxygen Home Use 04/11/23 01/13/24 metformin 1,000 mg tablet 1,000 mg PO BID 06/02/23 01/13/24 nebulizers 07/23/23 01/13/24 sertraline 50 mg tablet 50 mg PO DAILY 10/09/23 01/13/24 levothyroxine 50 mcg tablet 50 mcg PO DAILY 01/08/24 01/13/24 Previous Rx's ?Medication ?Instructions ?Recorded warfarin 5 mg tablet 5 mg PO DAILY 30 days #30 tabs 07/11/23 albuterol sulfate 90 mcg/actuation 2 puff inhalation Q6H PRN for 11/17/23 aerosol inhaler (Ventolin HFA) wheezing #18 ea sildenafil (pulm.hypertension) 20 20 mg PO TID 30 days #90 tabs 12/18/23 mg tablet tirzepatide 2.5 mg/0.5 mL 2.5 mg (0.5 mL) subcut QWEEK 4 01/12/24 subcutaneous pen injector weeks #2 mL (Mounjaro) Allergies Allergy/AdvReac Type Severity Reaction Status Date / Time lisinopril [LISINOPRIL] Allergy Severe ANGIOEDEMA Verified 01/15/24 01:37 dapagliflozin [From FARXIGA] Allergy Intermediate HIVES Verified 01/15/24 01:37 liraglutide [From VICTOZA] Allergy Intermediate RASH Verified 01/15/24 01:37 metformin [METFORMIN] Allergy Intermediate GI UPSET Verified 01/15/24 01:37 erythromycin base Allergy Unknown UNKNOWN Verified 01/15/24 01:37 [ERYTHROMYCIN BASE] amitriptyline [AMITRIPTYLINE] AdvReac Intermediate DRUGGED Verified 01/15/24 01:37 FEELING Review of Systems Review of Systems: As per HPI. Yes all other systems are reviewed and are negative Constitutional: Constitutional: Reports as per HPI [facility] Past Medical History Medical History (Updated 01/15/24 @ 06:52 by Rosie Edgar NP) Pulmonary hypertension Hypercoagulable state Thyroid cancer Chronic thromboembolic disease Lower extremity edema Multinodular thyroid Family history of deep venous thrombosis Pleuritic chest pain Pulmonary emboli Dyspnea Dyspareunia in female Anemia Obstructive sleep apnea Morbid obesity History of COVID-19 (~2020) History of pulmonary embolus (PE) (~2020) Anxiety Chronic headaches Dyspnea on exertion Diabetes type 2, controlled Hypothyroid HTN (hypertension) Hyperlipidemia Surgical History History of angioplasty History of surgery on right wrist History of foot surgery History of tubal ligation History of carpal tunnel surgery History of ERCP History of laparoscopic cholecystectomy History of surgery Family History Family History Father Myocardial infarction COPD (chronic obstructive pulmonary disease) Mother COPD (chronic obstructive pulmonary disease) Brother Colitis Social History Social History Housing: House Alcohol intake: former (socially) Comment: pt d/c home Patient Tobacco Use Status: Never used Tobacco Advance Directives: No Advance Directives Information Provided: Yes service: No Current occupational status: employed 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 Blood pressure elevated. Heart rate normal. Respiratory rate normal. Temperature normal. Oxygen saturation normal. Const General: cooperative and no acute distress Orientation/consciousness: oriented to person, oriented to place, oriented to time and patient oriented x3 Limitations: no limitations HENMT Head: Yes normocephalic and Yes atraumatic Ears: external ears normal, TM's normal bilaterally and EAC's normal General nose exam: Normal external nose present Face and sinus: Yes face symmetric Mouth: Normal oral and palatal mucosa present, lip normal, tongue normal, Normal salivary glands and ducts present, oropharynx normal, moist mucous membranes, no audible dysphonia, no drooling, no muffled voice, no trismus and No restricted motion Throat: Yes posterior oropharynx normal, Yes uvula midline, No peritonsillar mass and No uvular edema Eyes Pupils: Equal, round and reactive pupils present Neck Neck: Yes normal visual inspection, Yes no lymphadenopathy and Yes supple Resp Effort & Inspection: normal respiratory effort and able to speak in complete sentences Auscultation: clear to auscultation bilaterally Cardio Rate: regular rate Rhythm: regular rhythm Heart sounds: S1 normal heart sound present and S2 normal heart sound present GI Palpation (GI): Soft to palpation and nontender Auscultation: normoactive bowel sounds General: Yes no CVA tenderness Back/Spine/Pelvis Back: no CVA tenderness Skin General skin exam: elasticity normal and turgor normal Neuro General: oriented to person, oriented to place, oriented to time, patient oriented x3, moves all extremities, no focal motor deficits and CN's II-XI intact bilaterally Cranial nerves: Yes Equal, round and reactive pupils present Cognition (Neuro): normal cognition Extrem General: Yes full ROM, Yes no pedal edema and Yes no calf tenderness Psych Mental Status: mental status grossly normal Affect: normal affect Thought process: Normal thought process present Medical Decision Making Medical Decision Making MDM Narrative: Patient is a 48-year-old female with history of pulmonary hypertension, thyroid cancer, SERA, anemia, T2DM, HTN presenting to the emergency department with complaint of sore throat intermittent for the past 2 weeks but worsening over the past few days. On exam patient is awake, A+Ox3, VS WNL, afebrile, normal neurological exam without focal deficits, physical exam findings as above. Given reported symptoms and physical exam findings, initial differential includes strep pharyngitis, viral illness, covid, flu, RSV. Viral and strep swabs negative. X-ray ordered via protocol by RN notable for no evidence of pneumonia. My interpretation is in agreement with the radiologist's interpretation. Physical exam unremarkable, patient is speaking easily in full sentences, managing secretions without difficulty. Feel symptoms due to viral illness. Discussed with patient that she should begin using [id number] medications to decrease her symptoms such as Tylenol and Chloraseptic, can also gargle with warm salt water and drink tea with honey. Return precautions discussed with patient at bedside. Patient verbalized understanding of and agreement with plan. Differential Diagnosis Differential Diagnoses: The differential diagnosis associated with the presentation includes As per MDM. Lab Data [facility] Lab Attestation statement: I reviewed the patient's lab results. As per [facility]. Labs: Lab Results 01/15/24 01/15/24 Range/Units 01:50 02:00 Influenza Type A (PCR) NEGATIVE (Negative) Influenza Type B (PCR) NEGATIVE (Negative) RSV RNA Qual (PCR) NEGATIVE (Negative) SARS-CoV-2 RNA (RT-PCR) NEGATIVE (Negative) S. pyogenes GrpA WENDY Negative (Negative) External Record Review External record reviewed: Inpatient record, Office record and Outpatient record Discharge Plan Discharge Clinical Impression: Pharyngitis Patient Disposition: Home, Self-Care Instructions: Pharyngitis (ED) Additional Instructions: You were evaluated in the emergency department today for a sore throat. Your COVID, flu, RSVS, and strep swabs were all negative. Your symptoms are likely related to a viral infection which will resolve on its own with time and rest. Be sure to drink adequate fluids. You can use Tylenol per package directions as needed for discomfort. You can use over the counter Chloraseptic spray for your sore throat. You can also gargle with warm salt water several times daily and drink warm tea with honey. Follow-up with your primary care provider this week. Return to the emergency department if you develop difficulty swallowing, voice changes, fever 100.4 or greater, shortness of breath, are unable to swallow your saliva, or any other concerning symptoms. Prescriptions: No Action warfarin 5 mg tablet 5 mg PO DAILY 30 Days Qty: 30 6RF Protocol: Dose Management Condition: Friday (Week One) Dose/Route: 2.5 mg Instruction: 0.5 x 5 mg tablets Condition: Friday Dose/Route: 5 mg Instruction: 1 x 5 mg tablet Condition: Friday Dose/Route: 2.5 mg Instruction: 0.5 x 5 mg tablets Condition: Friday Dose/Route: 2.5 mg Instruction: 0.5 x 5 mg tablets Condition: Dose/Route: 5 mg Instruction: 1 x 5 mg tablet Condition: Friday Dose/Route: 2.5 mg Instruction: 0.5 x 5 mg tablets Condition: Friday Dose/Route: 2.5 mg Instruction: 0.5 x 5 mg tablets Condition: Friday (Week Two) Dose/Route: 2.5 mg Instruction: 0.5 x 5 mg tablets Condition: Friday Dose/Route: 5 mg Instruction: 1 x 5 mg tablet Condition: Friday Dose/Route: 2.5 mg Instruction: 0.5 x 5 mg tablets Condition: Friday Dose/Route: 2.5 mg Instruction: 0.5 x 5 mg tablets Condition: Dose/Route: 5 mg Instruction: 1 x 5 mg tablet Condition: Friday Dose/Route: 2.5 mg Instruction: 0.5 x 5 mg tablets Condition: Friday Dose/Route: 2.5 mg Instruction: 0.5 x 5 mg tablets Protocol Text: Adjustment Start Date: Friday01/13/24 INR Value: 2.1 INR Date: 01/13/24 Recheck Date: 01/27/24 albuterol sulfate [Ventolin HFA] 90 mcg/actuation HFA aerosol inhaler 2 puff inhalation Q6H PRN (Reason: for wheezing) Qty: 18 12RF sildenafil (pulm.hypertension) 20 mg tablet 20 mg PO TID 30 Days Qty: 90 6RF Rx Instructions: administer doses at least 4-6 hours apart Mounjaro 2.5 mg/0.5 mL pen injector 2.5 mg subcut QWEEK 28 Days Qty: 2 4RF atorvastatin 20 mg tablet 20 mg PO BEDTIME glimepiride 4 mg tablet 4 mg PO BEDTIME (DME) FreeStyle Lite Strips Strip See Rx Instructions Not Applicable BID Qty: 10 Rx Instructions: As directed cyanocobalamin (vitamin B-12) 1,000 mcg tablet 1,000 mcg PO BEDTIME valsartan-hydrochlorothiazide 320-25 mg tablet 1 tab PO BEDTIME levothyroxine 50 mcg tablet 50 mcg PO DAILY ferrous sulfate 325 mg (65 mg iron) tablet 325 mg PO MOFR@2100 acetaminophen 650 mg tablet extended release 650 mg PO Q6H PRN (Reason: pain) (DME) nebulizers Misc See Rx Instructions .Route Rx Instructions: As directed albuterol sulfate 2.5 mg /3 mL (0.083 %) solution for nebulization 2.5 mg inhalation Q4H PRN (Reason: Wheezing) (DME) Oxygen Home Use Kit See Rx Instructions .Route Rx Instructions: As directed metformin 1,000 mg tablet 1,000 mg PO BID sertraline 50 mg tablet 50 mg PO DAILY Print Language: Uzbek
[2024-01-15 07:28] VITALS: BP 142/70; PULSE 90; RESP 16; TEMP 36.8; O2SAT 99
[2024-01-15 07:29] VITALS: BP 142/70; PULSE 90; RESP 16; TEMP 36.8; O2SAT 99
== END 2024-01-15 07:29 | disposition home or self-care (01) ==
PROVIDERS: Emergency Provider Student in an Organized Health Care Education/Training Program; PCP Internal Medicine
DX: J02.9 Acute pharyngitis, unspecified (principal); R05.9 Cough, unspecified; Z11.52 Encounter for screening for COVID-19; Z20.822 Contact with and (suspected) exposure to COVID-19
CPT/HCPCS: 0241U; 71046; 87651; 99212; 99283

== ENCOUNTER 2024-01-15 13:29 | Outpatient (AMB) | payer OTHER, SELFPAY ==
[2024-01-15 13:32] VITALS: BP 112/72; PULSE 107; O2SAT 95; BMI 50.4
--- NOTE | 2024-01-15 13:32 | HO.NEPHOV ---
Vital Signs 01/15/24 13:32 Height 5 ft 5 in Weight 303 lb BMI 50.4 BP 112/72 Blood Pressure Location Rt radial Position Sitting Pulse 107 H Pulse Source Pulse Oximeter Pulse Oximetry (%) 95 Oxygen Delivery Method Room Air Intake Visit Reasons: CKD/ 1 week fu/ Confirmed Jive Developer Required: No Accompanied by: Self / Same As Patient Allergies lisinopril [LISINOPRIL] Allergy (Severe, Verified 01/15/24 13:34) ANGIOEDEMA dapagliflozin [From FARXIGA] Allergy (Intermediate, Verified 01/15/24 13:34) HIVES liraglutide [From VICTOZA] Allergy (Intermediate, Verified 01/15/24 13:34) RASH metformin [METFORMIN] Allergy (Intermediate, Verified 01/15/24 13:34) GI UPSET erythromycin base [ERYTHROMYCIN BASE] Allergy (Unknown, Verified 01/15/24 13:34) UNKNOWN amitriptyline [AMITRIPTYLINE] Adverse Reaction (Intermediate, Verified 01/15/24 13:34) DRUGGED FEELING HPI Comments Details: Domonique is a pleasant 48-year-old woman with a history of diabetes mellitus and hypertension with mild CKD. Baseline serum creatinine is around 1.1 mg/dL with EGFR of about 50-60 mL/minute. He recently there has been a bump in the serum creatinine and as of December 2023 creatinine was 1.7 with EGFR of 30 mL/minute and she has been referred for further evaluation. In June 2023 and prior to that she had no significant microalbuminuria. Previous urinalysis was benign. She has had no imaging studies for the kidney She has a complicated history including COVID-19 infection in October of 2020 which was complicated by pulmonary embolism. She has undergone angioplasty at [facility]. She is on anticoagulation. She is being followed by Dr. Land from Pulmonary. She has been diagnosed with factor 5 laden deficiency She has chronic anemia. She is on iron supplementation but there has been no significant improvement in hemoglobin. She has microcytic picture Upon reviewing the labs she has had thrombocytopenia since April 2023 and the recent platelet count is [id number]. Domonique has no hemoptysis. No chest pain. No gross hematuria. No edema. No new rash or petechia. No joint pains. No nausea vomiting no diarrhea constipation no weight loss. Mother at age of 61 and she had kidney disease. She has 3 brothers no family history of any connective tissue disease or end stage renal disease She has 1 daughter age 22 and normal delivery. 01/15/24 She was in the ER last night for pharyngitis. From renal standpoint she is doing very well. She was found to have iron deficiency [facility] Medical History (Updated 01/15/24 @ 06:52 by Rosie Edgar NP) Pulmonary hypertension Hypercoagulable state Thyroid cancer Chronic thromboembolic disease Lower extremity edema Multinodular thyroid Family history of deep venous thrombosis Pleuritic chest pain Pulmonary emboli Dyspnea Dyspareunia in female Anemia Obstructive sleep apnea Morbid obesity History of COVID-19 (~2020) History of pulmonary embolus (PE) (~2020) Anxiety Chronic headaches Dyspnea on exertion Diabetes type 2, controlled Hypothyroid HTN (hypertension) Hyperlipidemia Surgical History History of angioplasty History of surgery on right wrist History of foot surgery History of tubal ligation History of carpal tunnel surgery History of ERCP History of laparoscopic cholecystectomy History of surgery Family History Father Myocardial infarction COPD (chronic obstructive pulmonary disease) Mother COPD (chronic obstructive pulmonary disease) Brother Colitis Social History Housing: House Alcohol intake: former (socially) Comment: pt d/c home Patient Tobacco Use Status: Never used Tobacco service: No Current occupational status: employed 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 Current occupational exposures/hazards: No Physical Exam Vital Signs: Last Vital Signs Pulse 107 H 01/15/24 13:32 BP 112/72 01/15/24 13:32 Pulse Ox 95 01/15/24 13:32 Oxygen Delivery Method Room Air 01/15/24 13:32 BMI result Body Mass Index 50.4 Const General: comfortable Orientation/consciousness: patient oriented x3 HEENT Head: No normal to inspection Mouth: moist mucous membranes Neck Neck: Yes supple and Yes no JVD Resp Auscultation: clear to auscultation bilaterally, no rales and rub present Cardio Jugular venous distension: no JVD Palpation: no palpable S3 and no palpable S4 Heart sounds: no rubs GI Palpation (GI): Soft to palpation and nontender Percussion: No Fluid wave present General: Yes no CVA tenderness Back/Spine/Pelvis Back: no CVA tenderness Skin General skin exam: no rashes or lesions noted Neuro General: patient oriented x3 Gait exam (Neuro): Normal gait present Motor exam (neuro): 5/5 motor strength present throughout Extrem General: Yes no pedal edema and No clubbing Results Reviewed Nephrology Results: Sodium 140 mmol/L (135-145) 12/25/23 Potassium 3.3 mmol/L (3.3-5.1) 12/25/23 Chloride 107 mmol/L (96-108) 12/25/23 Carbon Dioxide 25 mmol/L (22-29) 12/25/23 BUN 25 mg/dL (9-16) H 12/25/23 Creatinine 1.79 mg/dL (0.5-1.4) H 12/25/23 Calcium 9.2 mg/dL (8.4-10.2) 12/25/23 Urine Protein Trace mg/dL (Neg-Trace) 01/14/24 Urine Creatinine 91.65 mg/dL 01/14/24 Assessment & Plan Assessment & Plan (1) CKD (chronic kidney disease): Code(s): N18.9 - Chronic kidney disease, unspecified Category: Medical (2) Pulmonary hypertension: Code(s): I27.20 - Pulmonary hypertension, unspecified Category: Medical (3) T2DM (type 2 diabetes mellitus): Code(s): E11.9 - Type 2 diabetes mellitus without complications Category: Medical (4) Thyroid cancer: Code(s): C73 - Malignant neoplasm of thyroid gland Category: Medical (5) Thrombocytopenia: Code(s): D69.6 - Thrombocytopenia, unspecified Category: Medical Plan 48-year-old woman with a history of diabetes mellitus has acute kidney injury superimposed on chronic kidney disease. Underlying chronic kidney disease may be due to longstanding diabetes mellitus in a setting obesity and hypertension. The differential diagnosis for acute kidney injury is rather extensive. Today the blood pressure was rather low and she is on a high dose of ARB and diuretic. I suspect she has a component of hypoperfusion leading to LEXUS. Obstructive uropathy should be ruled out. Underlying glomerulonephritis and interstitial disease should also be ruled out. She has unexplained thrombocytopenia. Recommendations Extensive workup as outlined. This would include renal ultrasonogram urine studies and serological workup. Since blood pressure is low I will stop valsartan hydrochlorothiazide for now. Recheck renal panel in 1 week. Encouraged to continue avoiding NSAIDs and other nephrotoxins. Maintain adequate intake Further workup will depend on the outcome of the above baseline next occasions. 01/15/24 Workup is in progress for LEXUS. Valsartan hydrochlorothiazide has been stopped and I will recheck the BUN creatinine in the next week or so. Expect renal function to have improved. Serological workup is in progress. Ultrasound has been scheduled for 01/19/2024. Blood pressure is well controlled today. She has significant iron deficiency. I will increase her antihypertensives due 325 mg daily. Check CBC again Orders: Orders Complete Blood Count Auto Diff Today N18.30 - Chronic kidney disease, stage 3 unspecified, N18.9 - Chronic kidney disease, unspecified Basic Metabolic Panel Today N18.9 - Chronic kidney disease, unspecified Coding Level of Care Code Est Pt Level 4 (03925) Diagnoses CKD (chronic kidney disease) N18.9 Pulmonary hypertension I27.20 T2DM (type 2 diabetes mellitus) E11.9 Thyroid cancer C73 Thrombocytopenia D69.6
== END 2024-01-15 13:52 | disposition home or self-care (01) ==
LOC: HO.HKA 13:29
PROVIDERS: PCP Internal Medicine; Visit Provider Internal Medicine Hypertension Specialist
DX: N18.9 Chronic kidney disease, unspecified (principal); I27.20 Pulmonary hypertension, unspecified; E11.9 Type 2 diabetes mellitus without complications; C73 Malignant neoplasm of thyroid gland; D69.6 Thrombocytopenia, unspecified
CPT/HCPCS: 99214

== ENCOUNTER 2024-01-18 08:29 | Emergency (ER) | payer OTHER, SELFPAY ==
--- NOTE | ~2024-01-18 | XR_ITS ---
EXAMINATION: XR SHOULDER, RIGHT CLINICAL INFORMATION: Shoulder pain COMPARISON: X-ray 02/01/2017 TECHNIQUE: AP external rotation, Grashey, scapular Y, and axillary views of the right shoulder. FINDINGS: No acute fracture or dislocation. Mild acromioclavicular arthritis. Glenohumeral and acromioclavicular alignment is anatomic with normal joint space. 6 mm calcification superior to the greater tuberosity, probable calcific tendinitis. XR/XR shoulder RT min 2V IMPRESSION: No evidence of acute osseous abnormality. Mild acromioclavicular arthritis. 6 mm calcification superior to the greater tuberosity, probable calcific tendinitis.
[2024-01-18 08:31] VITALS: BP 148/80; PULSE 82; RESP 16; TEMP 36.2; O2SAT 97; BMI 47.4
--- NOTE | 2024-01-18 10:11 | ED.EXTPRO ---
HPI - Extremity Problem General Chief complaint: Extremity Injury, Upper Stated complaint: R shoulder pain Time Seen by Provider: 01/18/24 10:07 Source: patient, RN notes reviewed and old records reviewed Mode of arrival: ambulatory Limitations: no limitations History of Present Illness HPI Narrative: 48-year-old 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 female with past medical history significant for hyperlipidemia, hypertension, pulmonary hypertension, hypothyroid, multinodular thyroid, morbid obesity, pulmonary embolism on Eliquis, type 2 diabetes and anemia presents to the emergency department today for evaluation of right shoulder/neck pain x1 week. Pain localized to right shoulder with minimal radiation into base of right neck. Pain is exacerbated with movement of the right shoulder. She has been applying heat pack and taking ibuprofen at home with minimal relief. Last dose of ibuprofen was last night. She has not had pain like this before. Denies injury or trauma to the shoulder. Denies fevers, chill, headache, dizziness, vision changes, speech changes, balance disturbance, chest pain, cough, hemoptysis, sob, dyspnea, palpitations, calf pain/swelling. Related Data Home Medications ?Medication ?Instructions ?Recorded ?Confirmed atorvastatin 20 mg tablet 20 mg PO BEDTIME 09/14/20 01/13/24 glimepiride 4 mg tablet 4 mg PO BEDTIME 09/14/20 01/13/24 blood sugar diagnostic (FreeStyle #10 ea 02/26/22 01/13/24 Lite Strips) cyanocobalamin (vitamin B-12) 1,000 mcg PO BEDTIME 08/16/22 01/13/24 1,000 mcg tablet ferrous sulfate 325 mg (65 mg 325 mg PO MOFR@2100 10/25/22 01/13/24 iron) tablet albuterol sulfate 2.5 mg/3 mL 2.5 mg inhalation Q4H PRN Wheezing 01/31/23 01/13/24 (0.083 %) solution for nebulization acetaminophen 650 mg 650 mg PO Q6H PRN pain 03/03/23 01/13/24 tablet,extended release Oxygen Home Use 04/11/23 01/13/24 metformin 1,000 mg tablet 1,000 mg PO BID 06/02/23 01/13/24 nebulizers 07/23/23 01/13/24 sertraline 50 mg tablet 50 mg PO DAILY 10/09/23 01/13/24 levothyroxine 50 mcg tablet 50 mcg PO DAILY 01/08/24 01/13/24 Previous Rx's ?Medication ?Instructions ?Recorded warfarin 5 mg tablet 5 mg PO DAILY 30 days #30 tabs 07/11/23 albuterol sulfate 90 mcg/actuation 2 puff inhalation Q6H PRN for 11/17/23 aerosol inhaler (Ventolin HFA) wheezing #18 ea sildenafil (pulm.hypertension) 20 20 mg PO TID 30 days #90 tabs 12/18/23 mg tablet tirzepatide 2.5 mg/0.5 mL 2.5 mg (0.5 mL) subcut QWEEK 4 01/12/24 subcutaneous pen injector weeks #2 mL (Mounjaro) lidocaine 5 % topical patch 1 patch topical DAILY #15 ea 01/18/24 (Lidoderm) naproxen 500 mg tablet 500 mg PO Q8-12H PRN pain (scale 01/18/24 score 4-6) #20 tabs prednisone 20 mg tablet 40 mg (2 x 20 mg) PO DAILY 4 days 01/18/24 #8 tabs Allergies Allergy/AdvReac Type Severity Reaction Status Date / Time lisinopril [LISINOPRIL] Allergy Severe ANGIOEDEMA Verified 01/18/24 08:33 dapagliflozin [From FARXIGA] Allergy Intermediate HIVES Verified 01/18/24 08:33 liraglutide [From VICTOZA] Allergy Intermediate RASH Verified 01/18/24 08:33 metformin [METFORMIN] Allergy Intermediate GI UPSET Verified 01/18/24 08:33 erythromycin base Allergy Unknown UNKNOWN Verified 01/18/24 08:33 [ERYTHROMYCIN BASE] amitriptyline [AMITRIPTYLINE] AdvReac Intermediate DRUGGED Verified 01/18/24 08:33 FEELING Review of Systems Review of Systems: Constitutional: No fever, chills, fatigue, night sweats, weight changes ENT/Mouth: No ear pain, hearing loss, nasal congestion, sinus pain, rhinorrhea, sore throat Eyes: No eye pain, swelling, redness, vision changes, discharge Cardio: No chest pain, palpitations, JOSEPH, orthopnea, peripheral edema Pulm: No SOB, cough, sputum, wheezing, dyspnea, hemoptysis GI: No nausea, vomiting, hematemesis, abdominal pain, diarrhea, constipation, hematochezia, melena : No irregular bleeding, dysuria, frequency, urgency, hesitancy, hematuria, flank pain, urinary flow changes, urinary incontinence or retention MSK: No back pain, neck pain, joint pain, myalgias Skin: No lesions, rashes, + right shoulder pain Neuro: No weakness, numbness, paresthesias, LOC, dizziness, headache Psych: No anxiety/panic, depression, SI/HI, AH/VH All other systems reviewed and are negative. [facility] Past Medical History Attestation statement: The following information was validated with the patient. Source: old records reviewed and nursing notes reviewed Medical History Pulmonary hypertension Hypercoagulable state Thyroid cancer Chronic thromboembolic disease Lower extremity edema Multinodular thyroid Family history of deep venous thrombosis Pleuritic chest pain Pulmonary emboli Dyspnea Dyspareunia in female Anemia Obstructive sleep apnea Morbid obesity History of COVID-19 (~2020) History of pulmonary embolus (PE) (~2020) Anxiety Chronic headaches Dyspnea on exertion Diabetes type 2, controlled Hypothyroid HTN (hypertension) Hyperlipidemia Surgical History History of angioplasty History of surgery on right wrist History of foot surgery History of tubal ligation History of carpal tunnel surgery History of ERCP History of laparoscopic cholecystectomy History of surgery Family History Family History Father Myocardial infarction COPD (chronic obstructive pulmonary disease) Mother COPD (chronic obstructive pulmonary disease) Brother Colitis Social History Social History Housing: House Alcohol intake: former (socially) Comment: pt d/c home Patient Tobacco Use Status: Never used Tobacco Advance Directives: No Advance Directives Information Provided: No Do you have a plan to hurt others: No Plan service: No Current occupational status: employed 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 Current occupational exposures/hazards: No Physical Exam Vital Signs: Vital Signs: Last Vital Signs Temp 97.7 F 01/18/24 10:31 Pulse 75 01/18/24 10:31 Resp 18 01/18/24 10:31 BP 145/73 H 01/18/24 10:31 Pulse Ox 100 01/18/24 10:31 O2 Del Method Room Air 01/18/24 10:31 BMI result Body Mass Index 47.4 Vital signs stable Const: General: cooperative, healthy appearing, comfortable and no acute distress Orientation/consciousness: patient oriented x3 Limitations: no limitations HEENT: Head: Yes normal to inspection, Yes normocephalic and Yes atraumatic Eyes: General: appearance normal, both eyes and all related structures Conjunctivae: conjunctivae normal Sclerae: sclerae normal Pupils: Equal, round and reactive pupils present Neck: Neck: Yes normal visual inspection and Yes full ROM Resp: Effort & Inspection: normal respiratory effort Auscultation: clear to auscultation bilaterally Cardio: Rate: regular rate Rhythm: regular rhythm Skin: General skin exam: no rashes or lesions noted Neuro: Other: Strength 5/5 intact throughout.?Sensation intact to light touch. Neurovascular intact distally.? General: patient oriented x3, gait normal and moves all extremities Cranial nerves: Yes Equal, round and reactive pupils present Extrem: Other: + no overlying skin changes or obvious joint effusion noted to right shoulder. Full ROM intact to right shoulder with pain elicited on abduction. No tenderness to palpiation. No palpable deformity, warmth, fluctuance, or crepitus. Strength 5/5 intact. Dry Dip Worker strength intact. 2+ radial and ulnar pulses intact. skin W/D/I. no rashes. General: Yes normal to inspection Course Course Course Narrative: 1040-- xray of right shoulder exhibit arthritic changes along with 6mm calcification superior to greater tuberosity, likely calcific tendinitis. Discussed workup results with patient. She was given 1 dose of prednisone in the ED today. Will send course of prednisone and naproxen to pharmacy for treatment. informed patient to monitor her blood sugar at home- she states that her sugars are welll controlled. Educated patient on he and ice therapy. Advised her to follow up with PCP as she will likely require physical therapy for definitive management. Patient has remained stable throughout ED visit today. Discussed worrisome signs and symptoms and when to return to the ED. All questions answered at this time. Patient is agreeable with disposition and stable for discharge. Medications Administered Discontinued Medications Generic Name Dose Route Start Last Admin Trade Name Freq PRN Reason Stop Dose Admin Prednisone 40 mg 01/18/24 10:17 01/18/24 10:27 Prednisone 20 Mg Tablet PO 01/18/24 10:18 40 mg ONCE ONE Administration Medical Decision Making Medical Decision Making [facility] Narrative: 48-year-old 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 female with past medical history significant for hyperlipidemia, hypertension, pulmonary hypertension, hypothyroid, multinodular thyroid, morbid obesity, pulmonary embolism on Eliquis, type 2 diabetes and anemia presents to the emergency department today for evaluation of right shoulder/neck pain x1 week. Patient hypertensive, vitals otherwise WNL. She is nontoxic-appearing and in no acute distress. On exam there are no overlying skin changes or obvious joint effusion noted to right shoulder. Full ROM intact to right shoulder with pain elicited on abduction. No tenderness to palpiation. No palpable deformity, warmth, fluctuance, or crepitus. Strength 5/5 intact. Dry Dip Worker strength intact. 2+ radial and ulnar pulses intact. skin W/D/I. no rashes. Differential diagnosis includes msk sprain, msk strain, tendinitis. Lower suspicion for rotator cuff injury, fracture, dislocation, compartment syndrome, NV compromise, threat to limb, arterial or venous occlusion, septic joint, septic arthritis, Lyme arthritis, insect or tick borne pathology, gout pseudogout. Plan for imaging and pain control. Differential Diagnosis Differential Diagnoses: The differential diagnosis associated with the presentation includes as above. Admission/Observation not indicated. Independent Interpretation I performed an independent interpretation of an: Plain X-Ray Interpretation: XR right shoulder with area of calcification noted to superior greater tuberosity, agree with radiologist's interpretation. Radiology Impression Discussion of test interpretation with radiology: I have reviewed the radiologist's reading. Radiologist Impression: EXAMINATION: XR SHOULDER, RIGHT CLINICAL INFORMATION: Shoulder pain COMPARISON: X-ray 02/01/2017 TECHNIQUE: AP external rotation, Grashey, scapular Y, and axillary views of the right shoulder. FINDINGS: No acute fracture or dislocation. Mild acromioclavicular arthritis. Glenohumeral and acromioclavicular alignment is anatomic with normal joint space. 6 mm calcification superior to the greater tuberosity, probable calcific tendinitis. XR/XR shoulder RT min 2V IMPRESSION: No evidence of acute osseous abnormality. Mild acromioclavicular arthritis. 6 mm calcification superior to the greater tuberosity, probable calcific tendinitis. External Record Review External record reviewed: Inpatient record, Office record, Outpatient record, Prior outpatient labs, Prior outpatient radiology, Primary care record and Outside ED record Prescription Management I considered prescription management with: Pain Medication (naproxen) and Other (prednisone) Social Determinants Patient?s care significantly limited by Social Determinants of Health including: Other Social Determinant of Health Critical Care Time Critical Care Time Critical Care Time: No Discharge Plan Discharge Clinical Impression: Calcific tendinitis of right shoulder region Patient Disposition: Home, Self-Care Instructions: Calcific Tendinitis (ED) Additional Instructions: As discussed, the x-ray of your right shoulder shows mild arthritis along with calcification of the tendon within the shoulder consistent with calcific tendinitis Treatment for this is with steroids and anti-inflammatories. Prednisone as a steroid that has been sent to your pharmacy. You were given 1 dose of this in the emergency department today. Take your next dose tomorrow. MAKE SURE TO MONITOR YOUR SUGARS AT HOME PREDNISONE CAN INCREASE BLOOD SUGAR. IF YOU FIND THAT YOUR SUGARS ARE BECOMING HIGH, PLEASE DISCONTINUE PREDNISONE. Naproxen as an anti-inflammatory that has been sent to your pharmacy for you to take as needed for pain. Do not take this with other NSAIDs such as ibuprofen or Aleve as this may cause increased risk of GI bleeding. Lidocaine patches have been sent to your pharmacy which she can apply to painful areas. You may ice and heat the shoulder to help with discomfort. Make sure you are resting the shoulder. Please follow-up with your PCP regarding today's visit as you will likely require physical therapy. Return with new or worsening symptoms. In the case of an emergency call 911. Prescriptions: New prednisone 20 mg tablet 40 mg PO DAILY 4 Days Qty: 8 0RF naproxen 500 mg tablet 500 mg PO Q8-12H PRN (Reason: pain (scale score 4-6)) Qty: 20 0RF lidocaine [Lidoderm] 5 % adhesive patch,medicated 1 patch topical DAILY Qty: 15 0RF Rx Instructions: leave on most painful area for up to 12 hrs No Action warfarin 5 mg tablet 5 mg PO DAILY 30 Days Qty: 30 6RF Protocol: Dose Management Condition: Friday (Week One) Dose/Route: 2.5 mg Instruction: 0.5 x 5 mg tablets Condition: Friday Dose/Route: 5 mg Instruction: 1 x 5 mg tablet Condition: Friday Dose/Route: 2.5 mg Instruction: 0.5 x 5 mg tablets Condition: Friday Dose/Route: 2.5 mg Instruction: 0.5 x 5 mg tablets Condition: Dose/Route: 5 mg Instruction: 1 x 5 mg tablet Condition: Friday Dose/Route: 2.5 mg Instruction: 0.5 x 5 mg tablets Condition: Friday Dose/Route: 2.5 mg Instruction: 0.5 x 5 mg tablets Condition: Friday (Week Two) Dose/Route: 2.5 mg Instruction: 0.5 x 5 mg tablets Condition: Friday Dose/Route: 5 mg Instruction: 1 x 5 mg tablet Condition: Friday Dose/Route: 2.5 mg Instruction: 0.5 x 5 mg tablets Condition: Friday Dose/Route: 2.5 mg Instruction: 0.5 x 5 mg tablets Condition: Dose/Route: 5 mg Instruction: 1 x 5 mg tablet Condition: Friday Dose/Route: 2.5 mg Instruction: 0.5 x 5 mg tablets Condition: Friday Dose/Route: 2.5 mg Instruction: 0.5 x 5 mg tablets Protocol Text: Adjustment Start Date: Friday01/13/24 INR Value: 2.1 INR Date: 01/13/24 Recheck Date: 01/27/24 albuterol sulfate [Ventolin HFA] 90 mcg/actuation HFA aerosol inhaler 2 puff inhalation Q6H PRN (Reason: for wheezing) Qty: 18 12RF sildenafil (pulm.hypertension) 20 mg tablet 20 mg PO TID 30 Days Qty: 90 6RF Rx Instructions: administer doses at least 4-6 hours apart Mounjaro 2.5 mg/0.5 mL pen injector 2.5 mg subcut QWEEK 28 Days Qty: 2 4RF atorvastatin 20 mg tablet 20 mg PO BEDTIME glimepiride 4 mg tablet 4 mg PO BEDTIME (DME) FreeStyle Lite Strips Strip See Rx Instructions Not Applicable BID Qty: 10 Rx Instructions: As directed cyanocobalamin (vitamin B-12) 1,000 mcg tablet 1,000 mcg PO BEDTIME levothyroxine 50 mcg tablet 50 mcg PO DAILY ferrous sulfate 325 mg (65 mg iron) tablet 325 mg PO MOFR@2100 acetaminophen 650 mg tablet extended release 650 mg PO Q6H PRN (Reason: pain) (DME) nebulizers Misc See Rx Instructions .Route Rx Instructions: As directed albuterol sulfate 2.5 mg /3 mL (0.083 %) solution for nebulization 2.5 mg inhalation Q4H PRN (Reason: Wheezing) (DME) Oxygen Home Use Kit See Rx Instructions .Route Rx Instructions: As directed metformin 1,000 mg tablet 1,000 mg PO BID sertraline 50 mg tablet 50 mg PO DAILY Referrals: Deena Workman MD [Primary Care Provider] - Stand Alone Forms: Work/School Release Interventions: ED Discharge Assessment Last Done: 01/18/24 10:31 Discharge Date/Time: 01/18/24 10:32 Print Language: Tajik
[2024-01-18] MEDS: predniSONE 20 MG TABLET 40 MG PO (10:27)
[2024-01-18 10:31] VITALS: BP 145/73; PULSE 75; RESP 18; TEMP 36.5; O2SAT 100
== END 2024-01-18 10:32 | disposition home or self-care (01) ==
PROVIDERS: Emergency Provider Student in an Organized Health Care Education/Training Program; PCP Internal Medicine
DX: M75.31 Calcific tendinitis of right shoulder (principal)
CPT/HCPCS: 73030; 99282; 99283

== ENCOUNTER 2024-01-19 14:59 | Outpatient (REF) | payer OTHER, SELFPAY ==
--- NOTE | ~2024-01-19 | US_ITS ---
EXAMINATION: US RETROPERITONEAL LIMITED (RENAL ONLY) CLINICAL INFORMATION: Chronic kidney disease, unspecified. COMPARISON: CT abdomen and pelvis without contrast 05/10/2019. TECHNIQUE: Real-time imaging of the kidneys. FINDINGS: RIGHT KIDNEY: 10.6 x 5.1 x 5.1 cm (SAG x AP x TRV). The kidney is normal in size, contour, and echogenicity. Renal cortical thickness is normal. No calculi or focal parenchymal lesions. No hydronephrosis. LEFT KIDNEY: 11.0 x 5.8 x 4.8 cm (SAG x AP x TRV). The kidney is normal in size, contour, and echogenicity. Renal cortical thickness is normal. No calculi or focal parenchymal lesions. No hydronephrosis. US/US renal BI IMPRESSION: Unremarkable renal ultrasound.
== END 2024-01-19 15:00 | disposition home or self-care (01) ==
LOC: HO.US 14:59
PROVIDERS: PCP Internal Medicine; Visit Provider Psychiatry & Neurology Neurology
DX: N18.9 Chronic kidney disease, unspecified (principal)
CPT/HCPCS: 76775

== ENCOUNTER 2024-01-22 13:48 | Outpatient (AMB) | payer OTHER, SELFPAY ==
--- NOTE | 2024-01-22 13:49 | MHC.OFFVIS ---
Intake Visit Reasons: NEWPROB- Calcific tendinitis of RT shoulder Intake Note: Patient reports on 01/12/24 she woke up in pain, denies injury. A few days later she presented to [facility] [place] where xrays were taken, she then followed up with her PCP who ordered PT and reffered to orthopedics. She has her first initial PT visit today. Currently her pain radiates into her neck and down to her bicep area. Difficulty with sleeping. Limited ROM. Finds no relief with naproxen or lidocaine patches. She is requesting a cortisone injection. Allergies lisinopril [LISINOPRIL] Allergy (Severe, Verified 01/22/24 13:59) ANGIOEDEMA dapagliflozin [From FARXIGA] Allergy (Intermediate, Verified 01/22/24 13:59) HIVES liraglutide [From VICTOZA] Allergy (Intermediate, Verified 01/22/24 13:59) RASH metformin [METFORMIN] Allergy (Intermediate, Verified 01/22/24 13:59) GI UPSET erythromycin base [ERYTHROMYCIN BASE] Allergy (Unknown, Verified 01/22/24 13:59) UNKNOWN amitriptyline [AMITRIPTYLINE] Adverse Reaction (Intermediate, Verified 01/22/24 13:59) DRUGGED FEELING Medication List - Last Reconciled 01/22/24 by Gustavo Hernández PA-C acetaminophen ER 650 mg PO Q6H PRN albuterol sulfate 2.5 mg inhalation Q4H PRN albuterol sulfate 90 mcg/actuation (Ventolin HFA) 2 puffs inhalation Q6H PRN atorvastatin 20 mg PO BEDTIME blood sugar diagnostic (FreeStyle Lite Strips) As directed cyanocobalamin (vitamin B-12) 1,000 mcg PO BEDTIME ferrous sulfate 325 mg PO MOFR@2100 glimepiride 4 mg PO BEDTIME levothyroxine 50 mcg PO DAILY lidocaine 5% (Lidoderm) 1 patch topical DAILY metformin 1,000 mg PO BID naproxen 500 mg PO Q8-12H PRN nebulizers As directed Oxygen Home Use As directed prednisone 40 mg (2 x 20 mg) PO DAILY 4 days sertraline 50 mg PO DAILY sildenafil (pulm.hypertension) 20 mg PO TID 30 days tirzepatide (Mounjaro) 2.5 mg (0.5 mL) subcut QWEEK 4 weeks warfarin 5 mg See Protocol PO DAILY 30 days HPI HPI NEWPROB- Calcific tendinitis of RT shoulder: Details: 48-year-old female who presents to the office today for evaluation of right shoulder pain after she woke up in pain on 01/12/24. She denies any injury on her shoulder. She was seen at ED a few days later where x-rays were performed, then she was followed up with her PCP who ordered physical therapy and referred her to our office. She has her first physical therapy session today. She currently states she has pain and limited ROM in her shoulder that is aggravated at night. She finds no relief with naproxen or lidocaine patches. She would like to have a cortisone injection. She has a history of diabetes. [facility] Medical History Pulmonary hypertension Hypercoagulable state Thyroid cancer Chronic thromboembolic disease Lower extremity edema Multinodular thyroid Family history of deep venous thrombosis Pleuritic chest pain Pulmonary emboli Dyspnea Dyspareunia in female Anemia Obstructive sleep apnea Morbid obesity History of COVID-19 (~2020) History of pulmonary embolus (PE) (~2020) Anxiety Chronic headaches Dyspnea on exertion Diabetes type 2, controlled Hypothyroid HTN (hypertension) Hyperlipidemia Surgical History History of angioplasty History of surgery on right wrist History of foot surgery History of tubal ligation History of carpal tunnel surgery History of ERCP History of laparoscopic cholecystectomy History of surgery Family History Father Myocardial infarction COPD (chronic obstructive pulmonary disease) Mother COPD (chronic obstructive pulmonary disease) Brother Colitis Social History (Updated 01/22/24 @ 13:55 by ALYSSA Leon) Housing: House Alcohol intake: former Comment: pt d/c home Patient Tobacco Use Status: Never used Tobacco service: No Current occupational status: employed 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 Tenderness over the bicipital groove and along the deltoid region of the shoulder. Forward flexion to 175, external rotation to 90, internal rotation to S1. She has mild weakness with use of accessory muscle with empty can. . Negative Abrams and cross body abduction. NVI. Office Procedures Joint Injection/Drain Joint Injection/Drain Primary Site: right shoulder Prep: site was prepped using aseptic technique, ethochloride spray was applied and injection warnings given Injected: 40 mg of, DepoMedrol, with 8 mL of, 1% plain lidocaine and in the subcromial space Approach Used: posterolateral Procedure: The patient tolerated the procedure well and there was some relief with the local anesthesia Coding 32853 - Glenohumeral/Tronchanteric Bursa/Intraarticular Procedure code (CPT) selection complete Results Reviewed Results Reviewed: xrays of the right shoulder obtained in the ED on 01/18/24 IMPRESSION: No evidence of acute osseous abnormality. Mild acromioclavicular arthritis. 6 mm calcification superior to the greater tuberosity, probable calcific tendinitis. Assessment & Plan Assessment & Plan (1) Calcific tendonitis of right shoulder: Code(s): M75.31 - Calcific tendinitis of right shoulder Category: Medical Plan We discussed options today which include steroid injection. They did consent to move forward with the right shoulder injection, which was tolerated well. I recommended rest, ice and elevation and OTC anti-inflammatories PRN for discomfort. We also discussed their diabetes and the effect the steroid can have on their blood glucose levels; therefore, they will continue to monitor these very closely over the next 72 hours. If there are any concerns, they should report to the ED immediately. Patient Instructions: Scribed for Gustavo Hernández PA-C, by Grabiel Vickers medical facilities section director, on 01/22/2024 at 1:45 PM EST.? I, Gustavo Hernández PA-C, have personally reviewed and agree with the information entered by the scribe. Coding Level of Care Code Est Pt Level 3 (06060) Diagnoses Calcific tendonitis of right shoulder M75.31 CPT Codes Coding - Joint 7: 43977 - Glenohumeral/Tronchanteric Bursa/Intraarticular ([id number])
== END 2024-01-22 14:53 | disposition home or self-care (01) ==
LOC: HO.HOS 13:48
PROVIDERS: PCP Internal Medicine; Visit Provider Physician Assistant
DX: M75.31 Calcific tendinitis of right shoulder (principal)
CPT/HCPCS: 20610; 99213

== ENCOUNTER → 2024-01-22 13:48 | Outpatient (BNVA) | payer OTHER, SELFPAY | PROVIDERS: PCP Internal Medicine; Visit Provider Physician Assistant | DX: M75.31 Calcific tendinitis of right shoulder (principal) | CPT/HCPCS: 20610; 99212; J1010 ==

== ENCOUNTER 2024-01-26 11:35 | Outpatient (REF) | payer OTHER, SELFPAY ==
[2024-01-26 11:47] LABS: MANUAL DIFF FLAG NO
[2024-01-26 13:39] LABS: Basophils Absolute Auto 0.1 X10*3/uL (0.0-0.2); Basophils Percent Auto 0.5 % (0-2); Eosinophils Absolute Auto 0.3 X10*3/uL (0.0-0.4); Eosinophils Percent Auto 2.1 % (0-4); Hematocrit 33.1 % (37.0-47.0); Hemoglobin 9.8 g/dl (12.0-16.0); Imm Gran Abs Auto 0.18 X10*3/uL (0.00-0.03); Imm Gran Pct Auto 1.2 % (0.0-0.4); Lymphocytes Absolute Auto 2.6 X10*3/uL (1.2-4.9); Lymphocytes Percent Auto 17.6 % (20-40); Mean Corpuscular HGB Conc 29.6 g/dl (31.0-35.0); Mean Corpuscular Hemoglobin 22.3 pg (27.0-33.0); Mean Corpuscular Volume 75.4 fL (80.0-98.0); Mean Platelet Volume 11.6 fL (9.4-12.3); Monocytes Absolute Auto 1.1 X10*3/uL (0.1-1.2); Monocytes Percent Auto 7.5 % (2-11); Neutrophils Absolute Auto 10.7 x10*3/uL (2.0-8.3); Neutrophils Percent Auto 71.1 % (45-73); Platelet Count 202 X10*3/uL (160-400); Red Blood Count 4.39 X10*6/uL (4.20-5.50)
[2024-01-26 14:19] LABS: Anion Gap 15 (12-20); Blood Urea Nitrogen 24 mg/dL (9-16); Calcium 9.4 mg/dL (8.4-10.2); Carbon Dioxide 26 mmol/L (22-29); Chloride 103 mmol/L (96-108); Estimated Glomerular Filt Rate 40; Glucose Random 136 mg/dL (60-115); Potassium 4.2 mmol/L (3.3-5.1); Sodium 140 mmol/L (135-145)
[2024-01-27 19:09] LABS: Anti DNA DS Antibody <1 IU/mL; Anti-Centromere B Antibodies <1.0 NEG AI (<1.0 NEG); SM/Ribonucleoprotein Ab <1.0 NEG AI (<1.0 NEG); Smith Protein <1.0 NEG AI (<1.0 NEG)
== END 2024-01-26 11:36 | disposition home or self-care (01) ==
LOC: HO.LAB 11:35
PROVIDERS: PCP Internal Medicine; Visit Provider Internal Medicine Hypertension Specialist
DX: N18.30 Chronic kidney disease, stage 3 unspecified (principal); I74.9 Embolism and thrombosis of unspecified artery; I26.99 Other pulmonary embolism without acute cor pulmonale
CPT/HCPCS: 36415; 80048; 85025; 85610; 86225; 86235; 99212

== ENCOUNTER 2024-01-26 13:25 | Outpatient (AMB) | payer OTHER, SELFPAY ==
[2024-01-26 13:40] LABS: Prothrombin Time Whole Bld POC 29.3 sec (11.1-13.5); ~PT, ~INR - Anti Coag Clinic 2.4 (0.9-1.1)
--- NOTE | 2024-01-26 13:43 | MHC.OFFVISCO ---
Intake Intake Visit Reasons: Anticoagulation Allergies lisinopril [LISINOPRIL] Allergy (Severe, Verified 01/26/24 13:30) ANGIOEDEMA dapagliflozin [From FARXIGA] Allergy (Intermediate, Verified 01/26/24 13:30) HIVES liraglutide [From VICTOZA] Allergy (Intermediate, Verified 01/26/24 13:30) RASH metformin [METFORMIN] Allergy (Intermediate, Verified 01/26/24 13:30) GI UPSET erythromycin base [ERYTHROMYCIN BASE] Allergy (Unknown, Verified 01/26/24 13:30) UNKNOWN amitriptyline [AMITRIPTYLINE] Adverse Reaction (Intermediate, Verified 01/26/24 13:30) DRUGGED FEELING Medication List - Last Reconciled 01/26/24 by Francine Tipton RN acetaminophen ER 650 mg PO Q6H PRN albuterol sulfate 2.5 mg inhalation Q4H PRN albuterol sulfate 90 mcg/actuation (Ventolin HFA) 2 puffs inhalation Q6H PRN atorvastatin 20 mg PO BEDTIME blood sugar diagnostic (FreeStyle Lite Strips) As directed cyanocobalamin (vitamin B-12) 1,000 mcg PO BEDTIME ferrous sulfate 325 mg PO MOFR@2100 glimepiride 4 mg PO BEDTIME levothyroxine 50 mcg PO DAILY lidocaine 5% (Lidoderm) 1 patch topical DAILY metformin 1,000 mg PO BID nebulizers As directed Oxygen Home Use As directed sertraline 50 mg PO DAILY sildenafil (pulm.hypertension) 20 mg PO TID 30 days tirzepatide (Mounjaro) 2.5 mg (0.5 mL) subcut QWEEK 4 weeks warfarin 5 mg See Protocol PO DAILY 30 days Nursing Note Amb to [facility] feeling better sts she had cough and sore throat, diff breathing and was seen in [facility] 01/14 virus started on prednisone, went to ED on 01/17 for right shoulder pain and neck pain, started on naproxen, and lidoderm patch useless per pt had been taking IBU at home discussion with pt regarding IBU, naproxen and prednisone and effect on INR sts she is no longer on the naproxen but did have a cortisone shot to right shoulder on 01/21 (last INR done here01/12) Medications and supplements reviewed as noted above No other changes in health, diet, medications, or supplements, Denies any unusual signs and symptoms of bleeding or bruising or clotting. INR 2.4 in therapeutic range to continue usual dosing 5mg x 2 days and 2.5mg all other days Nutritional guidance given- balance greens and reds in diet, be consistent F/U INR 2 weeks Reminded to call us with any changes in health and medication changes Patient verbalizes understanding of instructions given Anti-Coag Initial Assessment Social Hx Patient Tobacco Use Status: Never used Tobacco alcohol intake: former Alcohol intake frequency: does not drink Cardiovascular Hx: HTN Lung Disease HX: DVT/PE Endocrine Hx: Thyroid Disease Musculoskeletal Hx: Arthritis Blood Disorder Hx: Anemia and Hyperlipidemia GI Hx: Ulcers, Diverticulosis and Hemorrhoids Hx: Other Neurological Hx: Migraines/Headaches and Other Cancer HX: No Psych. Illness/Depression: Yes Coding Level of Care Code Est Patient Level 2 Diagnoses Current use of anticoagulant therapy Z79.01 Time Spent (min) 30 Assessment & Plan Assessment & Plan (1) Current use of anticoagulant therapy: Code(s): Z79.01 - supervisor intermediates (current) use of anticoagulants Category: Medical
== END 2024-01-26 13:46 | disposition home or self-care (01) ==
LOC: HO.ACS 13:25
PROVIDERS: PCP Internal Medicine; Visit Provider Internal Medicine
DX: Z79.01 Long term (current) use of anticoagulants (principal)

== ENCOUNTER 2024-02-05 12:05 | Outpatient (AMB) | payer OTHER, SELFPAY ==
[2024-02-05 12:13] VITALS: BP 142/82; PULSE 96; O2SAT 96; BMI 49.3
--- NOTE | 2024-02-05 12:13 | HO.NEPHOV_ITS ---
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 Education Required: No Accompanied by: Self / Same As Patient Allergies lisinopril [LISINOPRIL] Allergy (Severe, Verified 02/05/24 12:15) ANGIOEDEMA dapagliflozin [From FARXIGA] Allergy (Intermediate, Verified 02/05/24 12:15) HIVES liraglutide [From VICTOZA] Allergy (Intermediate, Verified 02/05/24 12:15) RASH metformin [METFORMIN] Allergy (Intermediate, Verified 02/05/24 12:15) GI UPSET erythromycin base [ERYTHROMYCIN BASE] Allergy (Unknown, Verified 02/05/24 12:15) UNKNOWN amitriptyline [AMITRIPTYLINE] Adverse Reaction (Intermediate, Verified 02/05/24 12:15) DRUGGED FEELING HPI Comments Details: Domonique is a pleasant 48-year-old woman with a history of diabetes mellitus and hypertension with mild CKD. Baseline serum creatinine is around 1.1 mg/dL with EGFR of about 50-60 mL/minute. He recently there has been a bump in the serum creatinine and as of December 2023 creatinine was 1.7 with EGFR of 30 mL/minute and she has been referred for further evaluation. In June 2023 and prior to that she had no significant microalbuminuria. Previous urinalysis was benign. She has had no imaging studies for the kidney She has a complicated history including COVID-19 infection in October of 2020 which was complicated by pulmonary embolism. She has undergone angioplasty at [facility]. She is on anticoagulation. She is being followed by Dr. Land from Pulmonary. She has been diagnosed with factor 5 laden deficiency She has chronic anemia. She is on iron supplementation but there has been no significant improvement in hemoglobin. She has microcytic picture Upon reviewing the labs she has had thrombocytopenia since April 2023 and the recent platelet count is 164642. Domonique has no hemoptysis. No chest pain. No gross hematuria. No edema. No new rash or petechia. No joint pains. No nausea vomiting no diarrhea constipation no weight loss. Mother at age of 61 and she had kidney disease. She has 3 brothers no family history of any connective tissue disease or end stage renal disease She has 1 daughter age 22 and normal delivery. 01/15/24 She was in the ER last night for pharyngitis. From renal standpoint she is doing very well. She was found to have iron deficiency 02/04 Cr is down to 1.4 close to baseline Off Valsartan HCT PFSH Medical History Pulmonary hypertension Hypercoagulable state Thyroid cancer Chronic thromboembolic disease Lower extremity edema Multinodular thyroid Family history of deep venous thrombosis Pleuritic chest pain Pulmonary emboli Dyspnea Dyspareunia in female Anemia Obstructive sleep apnea Morbid obesity History of COVID-19 (~2020) History of pulmonary embolus (PE) (~2020) Anxiety Chronic headaches Dyspnea on exertion Diabetes type 2, controlled Hypothyroid HTN (hypertension) Hyperlipidemia Surgical History History of angioplasty History of surgery on right wrist History of foot surgery History of tubal ligation History of carpal tunnel surgery History of ERCP History of laparoscopic cholecystectomy History of surgery Family History Father Myocardial infarction COPD (chronic obstructive pulmonary disease) Mother COPD (chronic obstructive pulmonary disease) Brother Colitis Social History Housing: House Alcohol intake: former Comment: pt d/c home Patient Tobacco Use Status: Never used Tobacco service: No Current occupational status: employed 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 Tenderness over the bicipital groove and along the deltoid region of the shoulder. Forward flexion to 175, external rotation to 90, internal rotation to S1. She has mild weakness with use of accessory muscle with empty can. . Negative Abrams and cross body abduction. NVI. Results Reviewed Nephrology Results: Hgb 9.8 g/dl (12.0-16.0) L 01/26/24 WBC 15.0 X10*3/uL (4.8-10.8) H 01/26/24 Plt Count 202 X10*3/uL (160-400) 01/26/24 Sodium 140 mmol/L (135-145) 01/26/24 Potassium 4.2 mmol/L (3.3-5.1) 01/26/24 Chloride 103 mmol/L (96-108) 01/26/24 Carbon Dioxide 26 mmol/L (22-29) 01/26/24 BUN 24 mg/dL (9-16) H 01/26/24 Creatinine 1.41 mg/dL (0.5-1.4) H 01/26/24 Calcium 9.4 mg/dL (8.4-10.2) 01/26/24 Urine Protein Trace mg/dL (Neg-Trace) 01/14/24 Urine Creatinine 91.65 mg/dL 01/14/24 Renal US 01/19/24 Assessment & Plan Assessment & Plan (1) CKD (chronic kidney disease): Code(s): N18.9 - Chronic kidney disease, unspecified Category: Medical (2) Pulmonary hypertension: Code(s): I27.20 - Pulmonary hypertension, unspecified Category: Medical (3) T2DM (type 2 diabetes mellitus): Code(s): E11.9 - Type 2 diabetes mellitus without complications Category: Medical (4) Thyroid cancer: Code(s): C73 - Malignant neoplasm of thyroid gland Category: Medical (5) Thrombocytopenia: Code(s): D69.6 - Thrombocytopenia, unspecified Category: Medical Plan 48-year-old woman with a history of diabetes mellitus has acute kidney injury superimposed on chronic kidney disease. Underlying chronic kidney disease may be due to longstanding diabetes mellitus in a setting obesity and hypertension. The differential diagnosis for acute kidney injury is rather extensive. Today the blood pressure was rather low and she is on a high dose of ARB and diuretic. I suspect she has a component of hypoperfusion leading to LEXUS. Obstructive uropathy should be ruled out. Underlying glomerulonephritis and interstitial disease should also be ruled out. She has unexplained thrombocytopenia. Recommendations Continue to hold valsartan hydrochlorothiazide for now. Encouraged to continue avoiding NSAIDs and other nephrotoxins. Maintain adequate intake Urine sediments benign No evidence of AGN or AIN ANANDA positive DsANA negative C3/c4 low ANCA negative No MCGP Refer to Rheumatology for further evaluation regarding positive ANANDA Blood pressure is acceptable Watch BP Low salt diet She has significant iron deficiency. Keep on Iron QD Orders: Orders Complete Blood Count Auto Diff Today N18.30 - Chronic kidney disease, stage 3 unspecified, N18.9 - Chronic kidney disease, unspecified Basic Metabolic Panel Today N18.9 - Chronic kidney disease, unspecified Referrals Rheumatology Referral D84.1 - Defects in the complement system Coding Level of Care Code Est Pt Level 4 (77377) Diagnoses CKD (chronic kidney disease) N18.9 Pulmonary hypertension I27.20 T2DM (type 2 diabetes mellitus) E11.9 Thyroid cancer C73 Thrombocytopenia D69.6
== END 2024-02-05 12:36 | disposition home or self-care (01) ==
PROVIDERS: PCP Internal Medicine; Visit Provider Internal Medicine Hypertension Specialist
DX: N18.9 Chronic kidney disease, unspecified (principal); I27.20 Pulmonary hypertension, unspecified; E11.9 Type 2 diabetes mellitus without complications; C73 Malignant neoplasm of thyroid gland; D69.6 Thrombocytopenia, unspecified
CPT/HCPCS: 99214

== ENCOUNTER → 2024-02-05 12:05 | Outpatient (BNVA) | payer OTHER, SELFPAY | PROVIDERS: PCP Internal Medicine; Visit Provider Internal Medicine Hypertension Specialist | DX: E11.22 Type 2 diabetes mellitus with diabetic chronic kidney disease (principal); I12.9 Hypertensive chronic kidney disease with stage 1 through stage 4 chronic kidney disease, or unspecified chronic kidney disease; N18.9 Chronic kidney disease, unspecified; I27.20 Pulmonary hypertension, unspecified; C73 Malignant neoplasm of thyroid gland; D69.6 Thrombocytopenia, unspecified | CPT/HCPCS: 99212 ==

== ENCOUNTER 2024-02-11 09:35 | Outpatient (AMB) | payer OTHER, SELFPAY ==
[2024-02-11 09:52] LABS: Prothrombin Time Whole Bld POC 37.4 sec (11.1-13.5); ~PT, ~INR - Anti Coag Clinic 3.1 (0.9-1.1)
--- NOTE | 2024-02-11 09:53 | MHC.OFFVISCO ---
Intake Intake Visit Reasons: Anticoagulation Allergies lisinopril [LISINOPRIL] Allergy (Severe, Verified 02/11/24 09:37) ANGIOEDEMA dapagliflozin [From FARXIGA] Allergy (Intermediate, Verified 02/11/24 09:37) HIVES liraglutide [From VICTOZA] Allergy (Intermediate, Verified 02/11/24 09:37) RASH metformin [METFORMIN] Allergy (Intermediate, Verified 02/11/24 09:37) GI UPSET erythromycin base [ERYTHROMYCIN BASE] Allergy (Unknown, Verified 02/11/24 09:37) UNKNOWN amitriptyline [AMITRIPTYLINE] Adverse Reaction (Intermediate, Verified 02/11/24 09:37) DRUGGED FEELING Medication List - Last Reconciled 02/11/24 by Yola Herring RN acetaminophen ER 650 mg PO Q6H PRN albuterol sulfate 2.5 mg inhalation Q4H PRN albuterol sulfate 90 mcg/actuation (Ventolin HFA) 2 puffs inhalation Q6H PRN atorvastatin 20 mg PO BEDTIME blood sugar diagnostic (FreeStyle Lite Strips) As directed cyanocobalamin (vitamin B-12) 1,000 mcg PO BEDTIME ferrous sulfate 325 mg PO MOFR@2100 glimepiride 4 mg PO BEDTIME levothyroxine 50 mcg PO DAILY lidocaine 5% (Lidoderm) 1 patch topical DAILY metformin 1,000 mg PO BID nebulizers As directed Oxygen Home Use As directed sertraline 50 mg PO DAILY sildenafil (pulm.hypertension) 20 mg PO TID 30 days tirzepatide (Mounjaro) 2.5 mg (0.5 mL) subcut QWEEK 4 weeks warfarin 5 mg See Protocol PO DAILY 30 days Nursing Note PT.HAS PLANNED TYHYROIDECTOMY FOR 03/03. WILL HAVE PRE-OP INSTRUCTIONS ON 02/16. NO CP,SOB,DIET/MED CHANGES,FALLS OR SX OF BLEEDING. CONTINUE USUAL DOSE AND FOLLOW-UP ON 02/25. GREENAlcon TODAY GOOD UNDERSTANDING OF DOSING INSTR Anti-Coag Initial Assessment Social Hx Patient Tobacco Use Status: Never used Tobacco alcohol intake: former Alcohol intake frequency: does not drink Cardiovascular Hx: HTN Lung Disease HX: DVT/PE Endocrine Hx: Thyroid Disease Musculoskeletal Hx: Arthritis Blood Disorder Hx: Anemia and Hyperlipidemia GI Hx: Ulcers, Diverticulosis and Hemorrhoids Hx: Other Neurological Hx: Migraines/Headaches and Other Cancer HX: No Psych. Illness/Depression: Yes Coding Level of Care Code Est Patient Level 1 Diagnoses Current use of anticoagulant therapy Z79.01 Results AMB INR Fingerstick AMB INR Fingerstick 3.1 Last Edit by Yola Herring RN on 02/11/24 09:47 Assessment & Plan Assessment & Plan (1) Current use of anticoagulant therapy: Code(s): Z79.01 - snf (current) use of anticoagulants Category: Medical
== END 2024-02-11 09:56 | disposition home or self-care (01) ==
LOC: HO.ACS 09:35
PROVIDERS: PCP Internal Medicine; Visit Provider Internal Medicine
DX: Z79.01 Long term (current) use of anticoagulants (principal)

== ENCOUNTER → 2024-02-11 09:35 | Outpatient (BNVA) | payer OTHER, SELFPAY | PROVIDERS: PCP Internal Medicine; Visit Provider Internal Medicine | DX: I26.99 Other pulmonary embolism without acute cor pulmonale (principal); Z79.01 Long term (current) use of anticoagulants; Z51.81 Encounter for therapeutic drug level monitoring | CPT/HCPCS: 85610; 99211 ==

== ENCOUNTER 2024-02-12 11:01 | Outpatient (REF) | payer OTHER, SELFPAY ==
--- NOTE | ~2024-02-12 | US_ITS ---
EXAMINATION: US VENOUS ULTRASOUND WITH DOPPLER LOWER EXTREMITY, LEFT CLINICAL INFORMATION: Left leg swelling COMPARISON: Venous ultrasound bilateral lower extremity 01/28/2023-no DVT TECHNIQUE: Ultrasound of the deep veins is performed from the hip to the calf with compression sonography and color and pulse Doppler assessment. Spectral analysis with color-flow imaging is performed. FINDINGS: The peroneal vein was not seen, otherwise, and there is normal venous compression and respiratory variation and augmented flow. The visualized common femoral vein, superficial femoral vein, profunda femoral vein, popliteal vein, and the posterior tibial vein show no evidence of deep venous thrombosis. The contralateral common femoral vein demonstrates normal respiratory variation. US/US venous duplex LE LT IMPRESSION: No DVT demonstrated in the left lower extremity.
[2024-02-12 11:27] LABS: MANUAL DIFF FLAG NO
[2024-02-12 11:57] LABS: Basophils Absolute Auto 0.1 X10*3/uL (0.0-0.2); Basophils Percent Auto 0.6 % (0-2); Eosinophils Absolute Auto 0.2 X10*3/uL (0.0-0.4); Eosinophils Percent Auto 2.6 % (0-4); Hematocrit 33.2 % (37.0-47.0); Hemoglobin 9.9 g/dl (12.0-16.0); Imm Gran Abs Auto 0.03 X10*3/uL (0.00-0.03); Imm Gran Pct Auto 0.3 % (0.0-0.4); Lymphocytes Absolute Auto 2.1 X10*3/uL (1.2-4.9); Lymphocytes Percent Auto 23.3 % (20-40); Mean Corpuscular HGB Conc 29.8 g/dl (31.0-35.0); Mean Corpuscular Hemoglobin 22.4 pg (27.0-33.0); Mean Corpuscular Volume 75.1 fL (80.0-98.0); Mean Platelet Volume 11.4 fL (9.4-12.3); Monocytes Absolute Auto 0.8 X10*3/uL (0.1-1.2); Monocytes Percent Auto 8.9 % (2-11); Neutrophils Absolute Auto 5.8 x10*3/uL (2.0-8.3); Neutrophils Percent Auto 64.3 % (45-73); Platelet Count 182 X10*3/uL (160-400); Red Blood Count 4.42 X10*6/uL (4.20-5.50); Red Cell Distribution Width 16.7 % (11.0-16.0)
[2024-02-12 12:31] LABS: Anion Gap 11 (12-20); Blood Urea Nitrogen 21 mg/dL (9-16); Calcium 9.5 mg/dL (8.4-10.2); Carbon Dioxide 24 mmol/L (22-29); Chloride 112 mmol/L (96-108); Estimated Glomerular Filt Rate 39; Glucose Random 115 mg/dL (60-115); Potassium 3.5 mmol/L (3.3-5.1); Sodium 143 mmol/L (135-145)
== END 2024-02-12 11:02 | disposition home or self-care (01) ==
LOC: HO.LAB 11:01
PROVIDERS: Absent Provider Internal Medicine Hypertension Specialist; PCP Internal Medicine; Visit Provider Internal Medicine
DX: R22.42 Localized swelling, mass and lump, left lower limb (principal); N18.30 Chronic kidney disease, stage 3 unspecified; N18.9 Chronic kidney disease, unspecified
CPT/HCPCS: 36415; 80048; 85025; 93971

== ENCOUNTER 2024-02-26 10:35 | Outpatient (AMB) | payer OTHER, SELFPAY ==
--- NOTE | 2024-02-26 11:10 | MHC.OFFVISCO ---
Intake Intake Visit Reasons: Anticoagulation Allergies lisinopril [LISINOPRIL] Allergy (Severe, Verified 02/26/24 10:45) ANGIOEDEMA dapagliflozin [From FARXIGA] Allergy (Intermediate, Verified 02/26/24 10:45) HIVES liraglutide [From VICTOZA] Allergy (Intermediate, Verified 02/26/24 10:45) RASH metformin [METFORMIN] Allergy (Intermediate, Verified 02/26/24 10:45) GI UPSET erythromycin base [ERYTHROMYCIN BASE] Allergy (Unknown, Verified 02/26/24 10:45) UNKNOWN amitriptyline [AMITRIPTYLINE] Adverse Reaction (Intermediate, Verified 02/26/24 10:45) DRUGGED FEELING Medication List - Last Reconciled 02/26/24 by Francine Tipton RN acetaminophen ER 650 mg PO Q6H PRN albuterol sulfate 2.5 mg inhalation Q4H PRN albuterol sulfate 90 mcg/actuation (Ventolin HFA) 2 puffs inhalation Q6H PRN atorvastatin 20 mg PO BEDTIME blood sugar diagnostic (FreeStyle Lite Strips) As directed ferrous sulfate 325 mg PO MOFR@2100 glimepiride 4 mg PO BEDTIME levothyroxine 50 mcg PO DAILY lidocaine 5% (Lidoderm) 1 patch topical DAILY metformin 1,000 mg PO BID nebulizers As directed Oxygen Home Use As directed sertraline 50 mg PO DAILY sildenafil (pulm.hypertension) 20 mg PO TID 30 days tirzepatide (Mounjaro) 2.5 mg (0.5 mL) subcut QWEEK 4 weeks warfarin 5 mg See Protocol PO DAILY 30 days Nursing Note Amb to [facility] feeling well Sts she is having thyroid surgery next week 03/03 has instructions from surgeon/ [facility] Surgery for warfarin hold and lovenox bridge Tonight last dose warfarin, hold start tomorrow, lovenox bridge on [facility] paperwork to start 02/28, pt mentions 'they kept thinking it was March for some of the dates pt to start lovenox on 02/27 s per our guidelines and previous multiple PEs Warfarin hold and Bridging instructions- LD warfarin tonight, start lovenox twice daily starting Tuesday 02/27 in the am, last dose lovenox before procedure 03/02 morning dose only If ok with surgeon resume warfarin on FridayMarch 03 DOS 5mg 9vs usual 2.5 mg, 5mg on 03/04 then usual dosing on Monday 03/05, if warfarin not started on 03/03 take 5mg on and Friday and resume usual dosing on Friday start Lovenox on 03/04 in evening if ok with surgeon Medications and supplements reviewed No other changes in health, diet, medications, or supplements, Denies any unusual signs and symptoms of bleeding, bruising ,or clotting. Bleeding, bruising, clotting discussed INR 2.7 Dose: as noted above regular diet prior to procedure after procedure no greens until INR recheck F/U INR:FridayMarch 08 Patient verbalizes understanding of instructions given Anti-Coag Initial Assessment Social Hx Patient Tobacco Use Status: Never used Tobacco alcohol intake: former Alcohol intake frequency: does not drink Cardiovascular Hx: HTN Lung Disease HX: DVT/PE Endocrine Hx: Thyroid Disease Musculoskeletal Hx: Arthritis Blood Disorder Hx: Anemia and Hyperlipidemia GI Hx: Ulcers, Diverticulosis and Hemorrhoids Hx: Other Neurological Hx: Migraines/Headaches and Other Cancer HX: No Psych. Illness/Depression: Yes Coding Level of Care Code Est Patient Level 2 Diagnoses Current use of anticoagulant therapy Z79.01 Time Spent (min) 30 Comment pre op warfarin hold and lovenox bridging instructions Results AMB INR Fingerstick AMB INR Fingerstick 2.7 Last Edit by Francine Tipton RN on 02/26/24 11:07 interface failure Assessment & Plan Assessment & Plan (1) Current use of anticoagulant therapy: Code(s): Z79.01 - vermin exterminator (current) use of anticoagulants Category: Medical
[2024-02-26 11:13] LABS: Prothrombin Time Whole Bld POC 32.6 sec (11.1-13.5); ~PT, ~INR - Anti Coag Clinic 2.7 (0.9-1.1)
== END 2024-02-26 11:58 | disposition home or self-care (01) ==
LOC: HO.ACS 10:35
PROVIDERS: PCP Internal Medicine; Visit Provider Internal Medicine
DX: Z79.01 Long term (current) use of anticoagulants (principal)

== ENCOUNTER → 2024-02-26 11:15 | Outpatient (REF) | payer OTHER, SELFPAY ==
--- NOTE | 2024-02-26 11:18 | CA_ITS ---
Transthoracic Echocardiogram Amended Patient (Last, First, Middle): Domonique Bro S Gender: Female Date of : 1975 Age: 48 Procedure Date: 02/26/2024 Procedure Type: Transthoracic Echocardiogram Location: OP Height: 165.1 cm Weight: 124.74 kg BSA: 2.26 m2 Heart Rate: bpm BP: 130 / 70 mmHg Learning Support Specialist: TO Referring MD: Odilon Land MD Cooker Helper: Sha Hi MD Symptoms: I27.20 - Pulmonary hypertension, unspecified Study Quality: Fair/Contrast ECG Rhythm: Sinus Conclusions: - 1. Normal LV ejection fraction 55-60% with grade 1 diastolic dysfunction 2. Mildly dilated right ventricle with preserved systolic function 3. Fibrocalcific aortic valve changes noted with early mild aortic stenosis 4. Normal RV systolic pressure 5. No gross pericardial effusion Findings Procedure Information Contrast agent, definity, is being given per protocol without apparent complications. Left Ventricle Normal left ventricular size, thickness, and systolic function. The visually estimated ejection fraction is between 55-60%. Spectral Doppler is indicative of an impaired relaxation filling pattern. E/E prime ratio is <8, consistent with normal filling pressures. Evidence suggests grade I (mild) diastolic dysfunction. Right Ventricle Mildly increased right ventricular cavity size. There is normal right ventricular systolic function. Atria The left atrium is normal in size. There is no evidence of interatrial shunt. The right atrium is likely dilated. Aortic Valve There is mild calcification of the aortic valve. The peak aortic gradient is 10 mmHg.The mean gradient is 5 mmHg. There is no aortic valve regurgitation. Mitral Valve There is mild anterior and posterior mitral leaflet thickening. There is mild mitral annular calcification. There is trace mitral valve regurgitation. There is no mitral valve stenosis. Pulmonic Valve The pulmonic valve was not well visualized. Tricuspid Valve Likely normal tricuspid valve structure and function. There is trace tricuspid valve regurgitation. The right ventricular systolic pressure is normal. The right ventricular systolic pressure is 18 mmHg. Normal right atrial pressure. Great Vessels The pulmonary artery was not well visualized. There is no dilatation of the ascending aorta measuring 3.30 cm. Venous The inferior vena cava is normal in size and collapses greater than 50% with inspiration. Pericardium/Pleural There is no evidence of pericardial effusion. Prior Study Comparison Changes noted compared to prior study dated: 02/17/2023. calcific aortic and mitral valve changes noted with early mild aortic stenosis Measurements 2D Linear Measurements IVSd: 0.91 0.6-0.9/0.6-1.0 cm LVIDd: 5.12 3.9-5.3/4.2-5.9 cm LVIDd Index: 2.27 2.4-3.2/2.2-3.1 cm/m2 LVIDs: 3.33 2.0-3.6 cm LVPWd: 0.86 0.7-1.1 cm LA Diam: 3.60 2.7-3.8/3.0-4.0 cm LAIDs Index: 1.59 1.5-2.3 cm/m2 LV Mass: 200.73 67-162/88-224 g LV Mass Index: 88.82 43-95/49-115 g/m2 LVOT Diam: 2.20 3.0+(-)1.3 cm 2D Volumes LA Vol: 28.50 2D Systolic Function EF 4C: 54.10 >55% EF 2C: 58.90 >55% EF BiP: 56.70 >55% Mitral Valve MV Pk E: 0.60 MV PK A: 0.58 MV Decel Time: 143.00 E/A: 1.00 E'Lateral: 8.16 E'Medial: 6.64 E/E' Med: 9.00 E/E' Lat: 7.40 PHT: 42.00 MVA PHT: 5.24 Decel Morovis: 4.21 Aortic Valve AoV Pk Juvencio: 1.55 AoV Mn Juvencio: 1.08 AoV VTI: 0.31 AoV Pk Grad: 10.00 Aov Mn Grad: 5.00 VINI Cont.VTI: 2.07 LVOT LVOT Pk Juvencio: 0.91 LVOT Mn Juvencio: 0.57 LVOT VTI: 0.17 LVOT Pk Grad: 3.00 LVOT Mn Grad: 2.00 LVOT Diam: 2.20 LVOT Area: 3.80 Diastolic Function MV Pk E: 0.60 MV Pk A: 0.58 E/A: 1.00 E'Medial: 6.64 E/E' Med: 9.00 E' Laterial: 8.16 E/E' Lat: 7.40 Right Ventricle TAPSE (mm): 26.90 TVS' Juvencio: 10.40 Tricuspid Valve TR Pk Juvencio: 1.95 TR Pk Grad: 15.00 RA Press: 3.00 RVSP: 18.00 Great Vessels Aorta Sinus of Valsalva: 3.12 2.0-3.5 cm Ao Asc: 3.30 2.1-3.4 cm Ao Arch: 3.00 Updated in Other Vendor System with Status of Final Sha Hi MD electronically signed on 02/26/2024 4:20:45 PM with status of Final
== END ==
LOC: HO.CARD 11:15
PROVIDERS: PCP Internal Medicine; Visit Provider Hospitalist
DX: I27.20 Pulmonary hypertension, unspecified (principal)
CPT/HCPCS: 85610; 93306; 99212; Q9957

== ENCOUNTER → 2024-02-26 11:18 | Outpatient (BNV) | payer OTHER, SELFPAY | PROVIDERS: PCP Internal Medicine; Visit Provider Internal Medicine Cardiovascular Disease | DX: I35.0 Nonrheumatic aortic (valve) stenosis (principal); I34.81 Nonrheumatic mitral (valve) annulus calcification | CPT/HCPCS: 93306 ==

== ENCOUNTER 2024-03-02 11:00 | Outpatient (RCR) | payer OTHER, SELFPAY ==
--- NOTE | 2024-01-22 12:59 | MHC.PT.EP ---
[facility] [place] Office [place] Office [place] Office [address] [phone] F: [phone] F: [phone] F: [phone] F: [phone] Physical Therapy Plan of Care Date of Evaluation: 01/22/24 Date of Surgery: Diagnosis: CALCIFIC TENDONITIS Rt SHOULDER Assessment: 48 YO FEMALE REF TO PT W ONSET OF Rt SH AND CERV PAIN x APPROX 2 WKS, XRAYS Rt SH REVEALED No evidence of acute osseous abnormality. Mild acromioclavicular arthritis. 6 mm calcification superior to the greater tuberosity, probable calcific tendinitis. THE Pt CURRENTLY HAS THYROID CA AND IS SCHED FOR THYROIDECTOMY 02/29/24 AT [facility] [place]; H/O PULMONARY EMBOLI AND IS ON COUMADIN- SHE IS BEING TREATED BY A CHIROPRACTOR FOR NECK AND LBP. THE Pt IS RIGHT HAND DOMINANT, HAS SIGNIF PAIN IN HER CERV/ Rt SCAP/Rt SUBACROMIAL LEDGE, GUARDED CERV AROM AND Rt SH AROM, LIMITED FUNCTIONAL USE OF Rt UE W ADLs- WEAKNESS IN HER Rt UE. SHE WOULD BENEFIT FROM PT TO ADDRESS THE ABOVE FINDINGS, ESPEC PAIN MGMT TECHN AND SELF-SX MGMT TECHN. Frequency and Duration: The patient will be seen 2 x WK x 4 WKS Short Term Goals: *DECR Rt SH AND CERV PAIN TO 2-3/10; DECR RADIC SXS BY 75% *INDEP SELF CORRECT TO NEUTRAL POSTURE *GRAD IMRPOVE Rt SH /CERV AROM AND SCAP STAB Job Analysis Manager Goals: *INDEP HEP AND SELF SX MGMT TECHN *Pt INCR ADL MICHELLE/ INITIATE FITNESS EVIDENT W IMPROVED SPADI (AT EVAL 104/130) *IMPROVE Rt SH GIRDLE STRENGTH BY 1/2-1 GRADE Treatment Plan: Modalities to reduce pain, spasms and effusion. Manual therapy to restore motion and function. Therapeutic exercise to improve strength and flexibility. Neuromuscular re-education for posture and balance. Therapeutic activities to return to functional activities of daily living. Electronically signed by: MAYANK CORRAL,PT Please sign and return to therapist. Thank you for your referral.
--- NOTE | 2024-03-02 12:02 | MHC.PT.DC ---
[facility] [place] [facility] [place] [facility] [place] [facility] [address] Vivien Tucker [address] [phone] F: [phone] F: [phone] F: [phone] F: [phone] Physical Therapy Discharge Report Diagnosis: CALCIFIC TENDONITIS Rt SHOULDER Date of Surgery: Date of Evaluation: 01/22/24 Date of Discharge: 03/02/24 Treatments to Date: 9 Cancellations to Date: 0 No Shows to Date: 0 Discharge Status: Achieved Goals Improved Function Independent with HEP Discharge Summary: THE Pt IS D/C'D THIS DATE- SHE IS SCHED FOR THYROID SURGERY- SHE IS INDEP W HEP AND HAS MADE (+) SX RELIEF W CERV TRACTION- HER SPADI SCORE IMPROVED FROM 104/130 AT EVAL TO 51/130 AT DISCHARGE- SHE IS INDEP W POSTURAL CORRECTION AND NOTES SIGNIF REDUCTION IN HER PAIN AND RADIC SXS. SHE HAS IMPROVED POST RC/ SCAP STRENGTH AND WFL AROM. Electronically signed by: MAYANK CORRAL,PT Please sign and return to therapist. Thank you for your referral.
== END 2024-03-02 12:02 | disposition home or self-care (01) ==
LOC: HO.PT 11:00
PROVIDERS: PCP Internal Medicine; Visit Provider Internal Medicine
DX: M75.31 Calcific tendinitis of right shoulder (principal)
CPT/HCPCS: 97012; 97110; 97162; 97530

== ENCOUNTER 2024-03-09 14:03 | Outpatient (AMB) | payer OTHER, SELFPAY ==
[2024-03-09 14:12] LABS: Prothrombin Time Whole Bld POC 19.6 sec (11.1-13.5); ~PT, ~INR - Anti Coag Clinic 1.6 (0.9-1.1)
--- NOTE | 2024-03-09 14:23 | MHC.OFFVISCO ---
Intake Intake Visit Reasons: Anticoagulation Allergies lisinopril [LISINOPRIL] Allergy (Severe, Verified 03/09/24 14:06) ANGIOEDEMA dapagliflozin [From FARXIGA] Allergy (Intermediate, Verified 03/09/24 14:06) HIVES liraglutide [From VICTOZA] Allergy (Intermediate, Verified 03/09/24 14:06) RASH metformin [METFORMIN] Allergy (Intermediate, Verified 03/09/24 14:06) GI UPSET erythromycin base [ERYTHROMYCIN BASE] Allergy (Unknown, Verified 03/09/24 14:06) UNKNOWN amitriptyline [AMITRIPTYLINE] Adverse Reaction (Intermediate, Verified 03/09/24 14:06) DRUGGED FEELING Medication List - Last Reconciled 03/09/24 by Francine Mitchell RN acetaminophen ER 650 mg PO Q6H PRN albuterol sulfate 2.5 mg inhalation Q4H PRN albuterol sulfate 90 mcg/actuation (Ventolin HFA) 2 puffs inhalation Q6H PRN atorvastatin 20 mg PO BEDTIME blood sugar diagnostic (FreeStyle Lite Strips) As directed ferrous sulfate 325 mg PO MOFR@2100 glimepiride 4 mg PO BEDTIME levothyroxine 50 mcg PO DAILY lidocaine 5% (Lidoderm) 1 patch topical DAILY metformin 1,000 mg PO BID nebulizers As directed Oxygen Home Use As directed sertraline 50 mg PO DAILY sildenafil (pulm.hypertension) 20 mg PO TID 30 days tirzepatide (Mounjaro) 2.5 mg (0.5 mL) subcut QWEEK 4 weeks warfarin 5 mg See Protocol PO DAILY 30 days Nursing Note Pt to [facility] S/P partial thyroidectomy on 03/03. Steri strip anterior neck clean, dry and intact. INR: 1.6 out of therapeutic range of 2-3 Medications and supplements reviewed: no change in meds Restarted warfarin on Sat 03/06 and has had 3 doses of 5mg Patient status: not feeling well today, has upset stomache she believes may be caused by holding Mounjaro Diet: usual diet for pt Denies any signs and symptoms of bleeding or clotting or unusual bruising Bleeding, bruising, clotting discussed Nutritional guidance given: to avoid greens until INR >2 Dose: increase today's dose to 5mg then resume usual dose of 2.5mg X 5 days and 5mg X 2 days F/U INR Date : 1 week?? Patient verbalizing understanding of instructions given. Anti-Coag Initial Assessment Social Hx Patient Tobacco Use Status: Never used Tobacco alcohol intake: former Alcohol intake frequency: does not drink Cardiovascular Hx: HTN Lung Disease HX: DVT/PE Endocrine Hx: Thyroid Disease Musculoskeletal Hx: Arthritis Blood Disorder Hx: Anemia and Hyperlipidemia GI Hx: Ulcers, Diverticulosis and Hemorrhoids Hx: Other Neurological Hx: Migraines/Headaches and Other Cancer HX: No Psych. 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
== END 2024-03-09 14:41 | disposition home or self-care (01) ==
LOC: HO.ACS 14:03
PROVIDERS: PCP Internal Medicine; Visit Provider Internal Medicine
DX: Z79.01 Long term (current) use of anticoagulants (principal)

== ENCOUNTER → 2024-03-09 14:03 | Outpatient (BNVA) | payer OTHER, SELFPAY | PROVIDERS: PCP Internal Medicine; Visit Provider Internal Medicine | DX: I26.99 Other pulmonary embolism without acute cor pulmonale (principal); R06.02 Shortness of breath; R06.09 Other forms of dyspnea; G47.33 Obstructive sleep apnea (adult) (pediatric); R60.0 Localized edema; E04.2 Nontoxic multinodular goiter; I74.9 Embolism and thrombosis of unspecified artery; C73 Malignant neoplasm of thyroid gland; I27.20 Pulmonary hypertension, unspecified; Z99.81 Dependence on supplemental oxygen; Z51.81 Encounter for therapeutic drug level monitoring; Z79.01 Long term (current) use of anticoagulants | CPT/HCPCS: 85610; 99211; 99212 ==

== ENCOUNTER 2024-03-09 14:21 | Outpatient (AMB) | payer OTHER, SELFPAY ==
[2024-03-09 14:41] VITALS: PULSE 91; O2SAT 94; BMI 45.0
--- NOTE | 2024-03-09 14:41 | MHC.OFFVIS ---
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: No Allergies lisinopril [LISINOPRIL] Allergy (Severe, Verified 03/09/24 14:42) ANGIOEDEMA dapagliflozin [From FARXIGA] Allergy (Intermediate, Verified 03/09/24 14:42) HIVES liraglutide [From VICTOZA] Allergy (Intermediate, Verified 03/09/24 14:42) RASH metformin [METFORMIN] Allergy (Intermediate, Verified 03/09/24 14:42) GI UPSET erythromycin base [ERYTHROMYCIN BASE] Allergy (Unknown, Verified 03/09/24 14:42) UNKNOWN amitriptyline [AMITRIPTYLINE] Adverse Reaction (Intermediate, Verified 03/09/24 14:42) DRUGGED FEELING HPI Comments Details: The patient is a 48-year-old woman with a known history of pulmonary emboli currently on Eliquis presenting with worsening dyspnea symptoms. Patient complains of dyspnea on exertion. Moderate severity. denies any wheezing or coughing. The patient does not have any respiratory inhalers at this time. She denies any wheezing although she does have chest tightness. In addition to that the patient does have daytime drowsiness. Her [place] score is elevated 12/24. The patient does have cardiovascular risk factors. Patient needs to undergo home sleep study this time. We did review imaging studies that we have available including a CT scan of the chest angiogram ruling out pulmonary embolism in the spring. the lung parenchyma is also within normal limits which is reassuring. 08/16/2022 the patient is here for a pulmonary follow-up visit. The patient overall has been feeling relatively well. She still has some daytime drowsiness. Her [place] score is elevated 9/24. The patient did have a sleep study done. Appears that she was sleeping the most part on her back and she had a mild degree of sleep apnea with an AHI just above 5. her sleep apnea was less severe when she laid on her sides. Therefore she wants to try positional therapy for now. If she does not improved after positional therapy then can consider CPAP therapy. The patient also continues on the Eliquis. She is tolerating it well. No minor major bleeding noted. she did undergo pulmonary function studies personally by me demonstrating an isolated moderate diffusion impairment. We did talk about potentially chronic thromboembolic disease could result in this presentation. But she is also anemic and that can also result in the diffusing impairment as well. She is currently on iron. 10/25/2022 the patient is here for pulmonary follow-up visit. The patient has been complaining of increasing shortness of breath. Moderate severity. Also complaining of right-sided pleuritic chest pain. She went to the gym yesterday and she got short of breath and also felt dizzy. She did undergo blood work which we reviewed. She has an elevated white count in addition to a left shift suggesting an infectious process. On further questioning she has been coughing more recently. In addition to that she does complaint of that pleuritic discomfort. She did have blood work which we debrided reviewed together. White count is elevated consistent with an infectious process. In addition to that her D-dimer is elevated. On further questioning she is not taking her Eliquis correctly. She is only doing it daily. With her elevated D-dimer in the pleuritic chest pain in a history of previous blood clots the patient needs to get a repeat CT scan of the chest PE protocol. Will request 1 at this time. However, being Friday if the patient develops any worsening symptoms she should go to the ER. 01/09/2023 the patient is here for a pulmonary follow-up visit. The patient still having shortness of breath even after being hospitalized. She did increase her Eliquis medication to twice a day. The patient still has significant shortness of breath with minimal activity moderate severity. She complains of chest discomfort. She is wondering if the Eliquis is working. She did follow-up with her oncologist. It appears that she does have factor 5 Leiden putting her risk for blood clots and also her family. She needs to make sure the family is aware of this had artery disease. We did taken for walking oximetry the patient did desaturate down to 87% with activity and she was also tachycardic to 130. I am concerned that she may have at this point chronic thromboembolic disease. Will go ahead and order a V/Q scan and switch over to Coumadin. If the patient continues to have blood clots even after that will have to consider a referral to [place]. 02/06/2023 The patient is here for a follow up visit. Switched over to coumadin. But, then ended up with a tooth infection and placed on abx. Started developing headaches and blurry vision. She had her INR check and it was critically high 6.8. She is using the oxygen with good effect. Has an ECHO scheduled for next week. We will plan to repeat her VQ scan in 6-8 weeks, if no better, then will need a referral to [facility] for CTED. In the meantime, I did call the ED triage and took her to the ED to assess for an acute bleed for the supra therapeutic INR. 07/23/2023 the patient is here for a pulmonary follow-up visit. The patient continues to be about the same. Still having shortness of breath with activity. The oxygen has been affecting beneficial. She continues on the Coumadin. Her Coumadin levels continue to fluctuate. The patient did go to [place]. Chief deemed high risk for the pulmonary artery enterectomy therefore, the patient will undergo angioplasty. Will be broken up in about 3-4 procedures. She will have to switch over to Lovenox intermittently for the procedures. Will going to go ahead and work with the Coumadin clinic in order to do so effectively. She will continue with the oxygen for now. The patient also has to follow-up with her surgeon for the abnormal findings of the thyroid but that can hold and wait until she is stable from a pulmonary standpoint. She continues to work with her food quality technician regarding her diabetes which appears to be better. She will continue with current therapy. Will follow-up in a couple months after she has completed with her angioplasty and perform a 6 minutes walk test to see if we can titrate her down to a conserving device in order for her to have an easier time caring the oxygen. We can also consider the use of vasodilators very therapy. Will discuss that further with [place]. 11/11/2023 the patient is here for a pulmonary follow-up visit. She is status post angioplasty although pulmonary vessels. Unfortunately she continues to be short of breath. Her V/Q scan in [place] demonstrated some slight improvement per the patient's report. I do not have any objective data at this time. She continues use her oxygen with activity and also with sleep. She continues on the blood thinners currently on Coumadin. She is tolerating it well maintaining the INR within therapeutic range. We did take her briefly for walking oximetry to see if she can tolerated conserving device. But, the patient became very tachycardic and also dyspneic. The patient still has significant pulmonary hypertension due to the chronic thromboembolic disease. This is WHO group 4. in view of her ongoing symptoms of tachycardia shortness of breath this is consistent with a [place] Heart Association class 4 where she is short of breath even at rest. Therefore, will place on vasodilators therapy, PD 5 inhibitor, to treat her underlying pulmonary hypertension. The patient was start the medication and then returned 3 months but we can repeat her echocardiogram and also repeat her 6 minute walk test with the hope that she can tolerate then the conserving device. The patient is also having significant daytime drowsiness. Her [place] score is elevated 08/01. She does have increased cardiovascular risk factors. The patient will benefit for another sleep study. She did have mild sleep apnea back in 2021. at this point she will require an in-lab sleep study. The patient will hold off for now but will further discuss it during her follow-up. 03/09/2024 the patient is here for a pulmonary follow-up visit. Since we last spoke the patient did undergo her thyroid surgery. She did tolerate well. However, after she did develop worsening shortness of breath. She was recommended to go to the ER. She went to the [facility] ER. There she had a CTA. I did personally review. No evidence of any pulmonary emboli in no evidence of any airspace disease. Otherwise look reasonable. The patient did have blood work at [facility] demonstrating an elevated brain atretic peptide. The patient was treated and released. The patient does have her oxygen therapy although she has a hard time carrying the Tanks after surgery. She seems a little volume overload. We did review her last echocardiogram. She has a 1+ diastolic dysfunction. She does have slight increase in the right ventricular size but otherwise normal function and normal pulmonary pressures which is reassuring. She does continue on the sildenafil. She has tolerating the vasodilators well. She continues on the Coumadin. Her levels are slightly subtherapeutic. She will continue to work closely with the Coumadin clinic. [facility] Medical History Pulmonary hypertension Hypercoagulable state Thyroid cancer Chronic thromboembolic disease Lower extremity edema Multinodular thyroid Family history of deep venous thrombosis Pleuritic chest pain Pulmonary emboli Dyspnea Dyspareunia in female Anemia Obstructive sleep apnea Morbid obesity History of COVID-19 (~2020) History of pulmonary embolus (PE) (~2020) Anxiety Chronic headaches Dyspnea on exertion Diabetes type 2, controlled Hypothyroid HTN (hypertension) Hyperlipidemia Surgical History History of angioplasty History of surgery on right wrist History of foot surgery History of tubal ligation History of carpal tunnel surgery History of ERCP History of laparoscopic cholecystectomy History of surgery Family History Father Myocardial infarction COPD (chronic obstructive pulmonary disease) Mother COPD (chronic obstructive pulmonary disease) Brother Colitis Social History Housing: House Alcohol intake: former Comment: pt d/c home Patient Tobacco Use Status: Never used Tobacco service: No Current occupational status: employed 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, 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 Current occupational exposures/hazards: No Review of Systems Const Denies chills, Reports daytime sleepiness, Reports difficulty sleeping, Denies fever(s), Denies frequent falls, Reports headache(s), Denies night sweats, Reports snoring and Denies weight loss Eyes Reports blurry vision, Reports change in vision and Reports eye pain ENT Reports dizziness and Reports headache(s) Card Reports chest pain, Denies chest pain at rest, Denies chest pain with activity, Denies irregular heart rhythm, Denies claudication, Reports leg edema, Denies palpitations and Reports dyspnea on exertion Resp Denies cough, Denies pain on inspiration, Denies pain with cough, Reports dyspnea on exertion and Reports snoring Musc Reports deformity, Reports arthralgias, Reports joint swelling, Denies limited range of motion and Reports stiffness Neuro Reports dizziness, Denies frequent falls and Reports headache(s) Endo Denies palpitations Physical Exam Vital Signs: Last Vital Signs Pulse 91 03/09/24 14:41 Pulse Ox 94 03/09/24 14:41 Oxygen Delivery Method Room Air 03/09/24 14:41 BMI result Body Mass Index 45.0 Results AMB INR Fingerstick AMB INR Fingerstick 1.6 Last Edit by Francine Mitchell RN on 03/09/24 14:12 interface delay Assessment & Plan Assessment & Plan (1) Dyspnea: Code(s): R06.00 - Dyspnea, unspecified Category: Medical Qualifiers: Dyspnea type: dyspnea on exertion Qualified Code(s): R06.09 - Other forms of dyspnea (2) SERA (obstructive sleep apnea): Code(s): G47.33 - Obstructive sleep apnea (adult) (pediatric) Category: Medical (3) Bilateral pulmonary embolism: Code(s): I26.99 - Other pulmonary embolism without acute cor pulmonale Category: Medical (4) Lower extremity edema: Code(s): R60.0 - Localized edema Category: Medical (5) Multinodular thyroid: Code(s): E04.2 - Nontoxic multinodular goiter Category: Medical (6) Chronic thromboembolic disease: Code(s): I74.9 - Embolism and thrombosis of unspecified artery Category: Medical (7) Thyroid cancer: Code(s): C73 - Malignant neoplasm of thyroid gland Category: Medical (8) Pulmonary hypertension: Code(s): I27.20 - Pulmonary hypertension, unspecified Category: Medical Plan s/p Angioplasty continue Coumadin continue sildenafil TID continue Symbicort Coumadin clinic continue oxygen 2L with activity, continuous for now LORRIE as needed lasix x 3 days F/U 3 months with 6MWT Medications: New furosemide (Lasix) 20 mg PO DAILY 3 tabs 0RF 3 days Coding Level of Care Code Est Pt Level 4 (65048) Diagnoses Dyspnea on exertion R06.09 Dyspnea type: dyspnea on exertion SERA (obstructive sleep apnea) G47.33 Bilateral pulmonary embolism I26.99 Lower extremity edema R60.0 Multinodular thyroid E04.2 Chronic thromboembolic disease I74.9 Thyroid cancer C73 Pulmonary hypertension I27.20 Time Spent (min) 18
== END 2024-03-09 15:09 | disposition home or self-care (01) ==
PROVIDERS: PCP Internal Medicine; Visit Provider Hospitalist
DX: R06.09 Other forms of dyspnea (principal); G47.33 Obstructive sleep apnea (adult) (pediatric); I26.99 Other pulmonary embolism without acute cor pulmonale; R60.0 Localized edema; E04.2 Nontoxic multinodular goiter; I74.9 Embolism and thrombosis of unspecified artery; C73 Malignant neoplasm of thyroid gland; I27.20 Pulmonary hypertension, unspecified
CPT/HCPCS: 99214

== ENCOUNTER 2024-03-19 13:26 | Outpatient (AMB) | payer OTHER, SELFPAY ==
[2024-03-19 13:45] LABS: Prothrombin Time Whole Bld POC 28.3 sec (11.1-13.5); ~PT, ~INR - Anti Coag Clinic 2.4 (0.9-1.1)
--- NOTE | 2024-03-19 13:51 | MHC.OFFVISCO ---
Intake Intake Visit Reasons: Anticoagulation Allergies lisinopril [LISINOPRIL] Allergy (Severe, Verified 03/19/24 13:41) ANGIOEDEMA dapagliflozin [From FARXIGA] Allergy (Intermediate, Verified 03/19/24 13:41) HIVES liraglutide [From VICTOZA] Allergy (Intermediate, Verified 03/19/24 13:41) RASH metformin [METFORMIN] Allergy (Intermediate, Verified 03/19/24 13:41) GI UPSET erythromycin base [ERYTHROMYCIN BASE] Allergy (Unknown, Verified 03/19/24 13:41) UNKNOWN amitriptyline [AMITRIPTYLINE] Adverse Reaction (Intermediate, Verified 03/19/24 13:41) DRUGGED FEELING Medication List - Last Reconciled 03/19/24 by Francine Mitchell RN acetaminophen ER 650 mg PO Q6H PRN albuterol sulfate 2.5 mg inhalation Q4H PRN albuterol sulfate 90 mcg/actuation (Ventolin HFA) 2 puffs inhalation Q6H PRN atorvastatin 20 mg PO BEDTIME blood sugar diagnostic (FreeStyle Lite Strips) As directed ferrous sulfate 325 mg PO MOFR@2100 furosemide (Lasix) 20 mg PO DAILY 3 days glimepiride 4 mg PO BEDTIME levothyroxine 50 mcg PO DAILY lidocaine 5% (Lidoderm) 1 patch topical DAILY metformin 1,000 mg PO BID nebulizers As directed Oxygen Home Use As directed sertraline 50 mg PO DAILY sildenafil (pulm.hypertension) 20 mg PO TID 30 days tirzepatide (Mounjaro) 2.5 mg (0.5 mL) subcut QWEEK 4 weeks warfarin 5 mg See Protocol PO DAILY 30 days Nursing Note INR: 2.4 in therapeutic range of 2-3 Medications and supplements reviewed No changes in health, diet, medications, or supplements, Denies any signs and symptoms of bleeding or bruising or clotting. Bleeding, bruising, clotting discussed Nutritional guidance given Dose: 2.5mg X 5 days and 2.5mg X 2 days F/U INR: 2 weeks Patient verbalizes understanding of instructions given Anti-Coag Initial Assessment Social Hx Patient Tobacco Use Status: Never used Tobacco alcohol intake: former Alcohol intake frequency: does not drink Cardiovascular Hx: HTN Lung Disease HX: DVT/PE Endocrine Hx: Thyroid Disease Musculoskeletal Hx: Arthritis Blood Disorder Hx: Anemia and Hyperlipidemia GI Hx: Ulcers, Diverticulosis and Hemorrhoids Hx: Other Neurological Hx: Migraines/Headaches and Other Cancer HX: No Psych. 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
== END 2024-03-19 13:55 | disposition home or self-care (01) ==
LOC: HO.ACS 13:26
PROVIDERS: PCP Internal Medicine; Visit Provider Internal Medicine
DX: Z79.01 Long term (current) use of anticoagulants (principal)

== ENCOUNTER → 2024-03-19 13:26 | Outpatient (BNVA) | payer OTHER, SELFPAY | PROVIDERS: PCP Internal Medicine; Visit Provider Internal Medicine | DX: I26.99 Other pulmonary embolism without acute cor pulmonale (principal); Z79.01 Long term (current) use of anticoagulants; Z51.81 Encounter for therapeutic drug level monitoring | CPT/HCPCS: 85610; 99211 ==

== ENCOUNTER → 2024-04-05 19:02 | Outpatient (BNV) | payer OTHER, SELFPAY | PROVIDERS: Emergency Provider Emergency Medicine Emergency Medical Services; PCP Internal Medicine; Visit Provider Internal Medicine Cardiovascular Disease | DX: R00.0 Tachycardia, unspecified (principal) | CPT/HCPCS: 93010 ==

== ENCOUNTER 2024-04-05 19:03 | Emergency (ER) | payer OTHER, SELFPAY ==
--- NOTE | 2024-04-05 | ECG_ITS ---
Test Reason : CLEMOJ Blood Pressure : / mmHG Vent. Rate : 109 BPM Atrial Rate : 109 BPM P-R Int : 146 ms QRS Dur : 090 ms QT Int : 330 ms P-R-T Axes : 047 -11 026 degrees QTc Int : 444 ms Sinus tachycardia Otherwise normal ECG When compared with ECG of 23-JUL-2023 11:24, No significant change was found Referred By: Generic ED Physician Electronically Signed By:Raul Zacarias
--- NOTE | ~2024-04-05 | XR_ITS ---
EXAMINATION: CHEST 2 VIEWS CLINICAL INFORMATION: chest pain. COMPARISON: No recent pertinent prior studies are available for comparison. TECHNIQUE: PA and lateral views of the chest obtained. FINDINGS: The lungs are hypoexpanded with minimal basilar markings more likely due to atelectasis. No focal infiltrate, effusion, edema, or pneumothorax. Cardiac and mediastinal silhouettes are within normal limits for technique. No acute bony abnormality seen XR/XR chest 2V IMPRESSION: Hypoexpanded with minimal basilar markings more likely due to atelectasis.
[2024-04-05 19:57] VITALS: BP 159/70; PULSE 96; RESP 20; TEMP 36.8; O2SAT 97; BMI 44.8
--- NOTE | 2024-04-05 19:57 | ED_ITS ---
HPI - General Adult General Chief complaint: Chest Pain Stated complaint: Sob,chest pain + covid 03/31 Time Seen by Provider: 04/05/24 22:48 Related Data Home Medications ?Medication ?Instructions ?Recorded ?Confirmed atorvastatin 20 mg tablet 20 mg PO BEDTIME 09/14/20 03/19/24 glimepiride 4 mg tablet 4 mg PO BEDTIME 09/14/20 03/19/24 blood sugar diagnostic (FreeStyle #10 ea 02/26/22 03/19/24 Lite Strips) ferrous sulfate 325 mg (65 mg 325 mg PO MOFR@2100 10/25/22 03/19/24 iron) tablet albuterol sulfate 2.5 mg/3 mL 2.5 mg inhalation Q4H PRN Wheezing 01/31/23 03/19/24 (0.083 %) solution for nebulization acetaminophen 650 mg 650 mg PO Q6H PRN pain 03/03/23 03/19/24 tablet,extended release Oxygen Home Use 04/11/23 03/19/24 metformin 1,000 mg tablet 1,000 mg PO BID 06/02/23 03/19/24 nebulizers 07/23/23 03/19/24 sertraline 50 mg tablet 50 mg PO DAILY 10/09/23 03/19/24 levothyroxine 50 mcg tablet 50 mcg PO DAILY 01/08/24 03/19/24 Previous Rx's ?Medication ?Instructions ?Recorded albuterol sulfate 90 mcg/actuation 2 puff inhalation Q6H PRN for 11/17/23 aerosol inhaler (Ventolin HFA) wheezing #18 ea sildenafil (pulm.hypertension) 20 20 mg PO TID 30 days #90 tabs 12/18/23 mg tablet lidocaine 5 % topical patch 1 patch topical DAILY #15 ea 01/18/24 (Lidoderm) furosemide 20 mg tablet (Lasix) 20 mg PO DAILY 3 days #3 tabs 03/09/24 warfarin 5 mg tablet 5 mg PO DAILY 30 days #30 tabs 03/10/24 tirzepatide 5 mg/0.5 mL 5 mg (0.5 mL) subcut QWEEK #2 mL 03/24/24 subcutaneous pen injector (Jose E) Allergies Allergy/AdvReac Type Severity Reaction Status Date / Time lisinopril [LISINOPRIL] Allergy Severe ANGIOEDEMA Verified 04/05/24 19:58 dapagliflozin [From FARXIGA] Allergy Intermediate HIVES Verified 04/05/24 19:58 liraglutide [From VICTOZA] Allergy Intermediate RASH Verified 04/05/24 19:58 metformin [METFORMIN] Allergy Intermediate GI UPSET Verified 04/05/24 19:58 erythromycin base Allergy Unknown UNKNOWN Verified 04/05/24 19:58 [ERYTHROMYCIN BASE] amitriptyline [AMITRIPTYLINE] AdvReac Intermediate DRUGGED Verified 04/05/24 19:58 FEELING PMFSH Past Medical History Medical History Pulmonary hypertension Hypercoagulable state Thyroid cancer Chronic thromboembolic disease Lower extremity edema Multinodular thyroid Family history of deep venous thrombosis Pleuritic chest pain Pulmonary emboli Dyspnea Dyspareunia in female Anemia Obstructive sleep apnea Morbid obesity History of COVID-19 (~2020) History of pulmonary embolus (PE) (~2020) Anxiety Chronic headaches Dyspnea on exertion Diabetes type 2, controlled Hypothyroid HTN (hypertension) Hyperlipidemia Surgical History History of angioplasty History of surgery on right wrist History of foot surgery History of tubal ligation History of carpal tunnel surgery History of ERCP History of laparoscopic cholecystectomy History of surgery Family History Family History Father Myocardial infarction COPD (chronic obstructive pulmonary disease) Mother COPD (chronic obstructive pulmonary disease) Brother Colitis Social History Social History Housing: House Alcohol intake: former Comment: pt d/c home Patient Tobacco Use Status: Never used Tobacco Advance Directives: No Advance Directives Information Provided: No service: No Current occupational status: employed 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 RME assessment and note performed by: Yovana Hawkins PA-C This is a [id number]-female, with a hx of asthma, PE on warfarin (compliant), DM, HTN, hypothyroidism, HLD, who presents to the ER with complaints of shortness of breath and chest pain. She reports that she tested positive for covid on friday. 3 days ago woke up and felt difficulty with breathing. Reporting left sided chest pain with cough. Plan: Labs, CXR, EKG, further er eval needed Medical Decision Making Lab Data 04/05/24 20:08 04/05/24 20:07 Labs: Lab Results 04/05/24 04/05/24 04/05/24 Range/Units 20:07 20:08 23:49 WBC 12.1 H (4.8-10.8) X10*3/uL RBC 4.90 (4.20-5.50) X10*6/uL Hgb 10.5 L (12.0-16.0) g/dl Hct 35.4 L (37.0-47.0) % MCV 72.2 L (80.0-98.0) fL MCH 21.4 L (27.0-33.0) pg MCHC 29.7 L (31.0-35.0) g/dl RDW 16.4 H (11.0-16.0) % Plt Count 241 D (160-400) X10*3/uL MPV 10.8 (9.4-12.3) fL Immature Gran % (Auto) 0.4 (0.0-0.4) % Neut % (Auto) 73.4 H (45-73) % Lymph % (Auto) 17.5 L (20-40) % Mcduffie % (Auto) 6.9 (2-11) % Eos % (Auto) 1.2 (0-4) % Baso % (Auto) 0.6 (0-2) % Lymph # (Auto) 2.1 (1.2-4.9) X10*3/uL Mcduffie # (Auto) 0.8 (0.1-1.2) X10*3/uL Eos # (Auto) 0.2 (0.0-0.4) X10*3/uL Baso # (Auto) 0.1 (0.0-0.2) X10*3/uL Abs Immat Gran (auto) 0.05 H (0.00-0.03) X10*3/uL Absolute Neuts (auto) 8.9 H (2.0-8.3) x10*3/uL Absolute Nucleated RBC 0.000 (0.0-0.012) X10*3/uL Nucleated RBC % (auto) 0.0 (0.0-0.2) /100WBC PT 34.8 H D (11.1-13.3) SEC INR 2.9 H (0.9-1.1) APTT 44.7 H (26.0-36.8) SEC D-Dimer High Sensitivty 161 NG/ML Hold Blue Top SEE NOTE Sodium 140 (135-145) mmol/L Potassium 3.3 (3.3-5.1) mmol/L Chloride 107 (96-108) mmol/L Carbon Dioxide 23 (22-29) mmol/L Anion Gap 13 (12-20) BUN 12 (9-16) mg/dL Creatinine 1.27 (0.5-1.4) mg/dL Estim Creat Clear Calc 70.2 Estimated GFR 45 Random Glucose 132 H (60-115) mg/dL Calcium 9.3 (8.4-10.2) mg/dL Magnesium 1.5 L (1.6-2.6) mg/dL Total Bilirubin 0.3 (0.0-1.0) mg/dL Direct Bilirubin 0.1 (0.0-0.5) mg/dL AST 10 (5-31) U/L ALT 9 (0-31) U/L Alkaline Phosphatase 80 (39-117) U/L Troponin I High Sens < 2.7 (<3.5-17.0) ng/L B-Natriuretic Peptide < 10 (<100) pg/mL Total Protein 7.4 (6.5-8.0) g/dL Albumin 4.1 (3.5-5.0) g/dL Lipase 39 (8-78) U/L Influenza Type A (PCR) NEGATIVE (Negative) Influenza Type B (PCR) NEGATIVE (Negative) RSV RNA Qual (PCR) NEGATIVE (Negative) SARS-CoV-2 RNA (RT-PCR) NEGATIVE (Negative) 04/05/24 Range/Units 23:56 WBC (4.8-10.8) X10*3/uL RBC (4.20-5.50) X10*6/uL Hgb (12.0-16.0) g/dl Hct (37.0-47.0) % MCV (80.0-98.0) fL MCH (27.0-33.0) pg MCHC (31.0-35.0) g/dl RDW (11.0-16.0) % Plt Count (160-400) X10*3/uL MPV (9.4-12.3) fL Immature Gran % (Auto) (0.0-0.4) % Neut % (Auto) (45-73) % Lymph % (Auto) (20-40) % Mcduffie % (Auto) (2-11) % Eos % (Auto) (0-4) % Baso % (Auto) (0-2) % Lymph # (Auto) (1.2-4.9) X10*3/uL Mcduffie # (Auto) (0.1-1.2) X10*3/uL Eos # (Auto) (0.0-0.4) X10*3/uL Baso # (Auto) (0.0-0.2) X10*3/uL Abs Immat Gran (auto) (0.00-0.03) X10*3/uL Absolute Neuts (auto) (2.0-8.3) x10*3/uL Absolute Nucleated RBC (0.0-0.012) X10*3/uL Nucleated RBC % (auto) (0.0-0.2) /100WBC PT (11.1-13.3) SEC INR (0.9-1.1) APTT (26.0-36.8) SEC D-Dimer High Sensitivty NG/ML Hold Blue Top Sodium (135-145) mmol/L Potassium (3.3-5.1) mmol/L Chloride (96-108) mmol/L Carbon Dioxide (22-29) mmol/L Anion Gap (12-20) BUN (9-16) mg/dL Creatinine (0.5-1.4) mg/dL Estim Creat Clear Calc Estimated GFR Random Glucose (60-115) mg/dL Calcium (8.4-10.2) mg/dL Magnesium (1.6-2.6) mg/dL Total Bilirubin (0.0-1.0) mg/dL Direct Bilirubin (0.0-0.5) mg/dL AST (5-31) U/L ALT (0-31) U/L Alkaline Phosphatase (39-117) U/L Troponin I High Sens 3.5 (<3.5-17.0) ng/L B-Natriuretic Peptide (<100) pg/mL Total Protein (6.5-8.0) g/dL Albumin (3.5-5.0) g/dL Lipase (8-78) U/L Influenza Type A (PCR) (Negative) Influenza Type B (PCR) (Negative) RSV RNA Qual (PCR) (Negative) SARS-CoV-2 RNA (RT-PCR) (Negative) Discharge Plan Discharge Clinical Impression: Shortness of breath Patient Disposition: Home, Self-Care Instructions: Shortness of Breath (ED) Prescriptions: No Action albuterol sulfate [Ventolin HFA] 90 mcg/actuation HFA aerosol inhaler 2 puff inhalation Q6H PRN (Reason: for wheezing) Qty: 18 12RF sildenafil (pulm.hypertension) 20 mg tablet 20 mg PO TID 30 Days Qty: 90 6RF Rx Instructions: administer doses at least 4-6 hours apart warfarin 5 mg tablet 5 mg PO DAILY 30 Days Qty: 30 2RF Protocol: Dose Management Condition: Friday (Week One) Dose/Route: 2.5 mg Instruction: 0.5 x 5 mg tablets Condition: Friday Dose/Route: 5 mg Instruction: 1 x 5 mg tablet Condition: Friday Dose/Route: 2.5 mg Instruction: 0.5 x 5 mg tablets Condition: Friday Dose/Route: 2.5 mg Instruction: 0.5 x 5 mg tablets Condition: Dose/Route: 5 mg Instruction: 1 x 5 mg tablet Condition: Friday Dose/Route: 2.5 mg Instruction: 0.5 x 5 mg tablets Condition: Friday Dose/Route: 2.5 mg Instruction: 0.5 x 5 mg tablets Condition: Friday (Week Two) Dose/Route: 2.5 mg Instruction: 0.5 x 5 mg tablets Condition: Friday Dose/Route: 5 mg Instruction: 1 x 5 mg tablet Condition: Friday Dose/Route: 2.5 mg Instruction: 0.5 x 5 mg tablets Condition: Friday Dose/Route: 2.5 mg Instruction: 0.5 x 5 mg tablets Condition: Dose/Route: 5 mg Instruction: 1 x 5 mg tablet Condition: Friday Dose/Route: 2.5 mg Instruction: 0.5 x 5 mg tablets Condition: Friday Dose/Route: 2.5 mg Instruction: 0.5 x 5 mg tablets Protocol Text: Adjustment Start Date: Friday03/19/24 INR Value: 2.4 INR Date: 03/19/24 Recheck Date: 04/02/24 Mounjaro 5 mg/0.5 mL pen injector 5 mg subcut QWEEK Qty: 2 4RF lidocaine [Lidoderm] 5 % adhesive patch,medicated 1 patch topical DAILY Qty: 15 0RF Rx Instructions: leave on most painful area for up to 12 hrs atorvastatin 20 mg tablet 20 mg PO BEDTIME glimepiride 4 mg tablet 4 mg PO BEDTIME (DME) FreeStyle Lite Strips Strip See Rx Instructions Not Applicable BID Qty: 10 Rx Instructions: As directed levothyroxine 50 mcg tablet 50 mcg PO DAILY ferrous sulfate 325 mg (65 mg iron) tablet 325 mg PO MOFR@2100 acetaminophen 650 mg tablet extended release 650 mg PO Q6H PRN (Reason: pain) (DME) nebulizers Misc See Rx Instructions .Route Rx Instructions: As directed albuterol sulfate 2.5 mg /3 mL (0.083 %) solution for nebulization 2.5 mg inhalation Q4H PRN (Reason: Wheezing) (DME) Oxygen Home Use Kit See Rx Instructions .Route Rx Instructions: As directed metformin 1,000 mg tablet 1,000 mg PO BID sertraline 50 mg tablet 50 mg PO DAILY furosemide [Lasix] 20 mg tablet 20 mg PO DAILY 3 Days Qty: 3 0RF Referrals: Deena oWrkman MD [Primary Care Provider] - 04/07/24 Print Language: Estonian
[2024-04-05 20:13] LABS: MANUAL DIFF FLAG NO
[2024-04-05 20:17] LABS: Basophils Absolute Auto 0.1 X10*3/uL (0.0-0.2); Basophils Percent Auto 0.6 % (0-2); Eosinophils Absolute Auto 0.2 X10*3/uL (0.0-0.4); Eosinophils Percent Auto 1.2 % (0-4); Hematocrit 35.4 % (37.0-47.0); Hemoglobin 10.5 g/dl (12.0-16.0); Imm Gran Abs Auto 0.05 X10*3/uL (0.00-0.03); Imm Gran Pct Auto 0.4 % (0.0-0.4); Lymphocytes Absolute Auto 2.1 X10*3/uL (1.2-4.9); Lymphocytes Percent Auto 17.5 % (20-40); Mean Corpuscular HGB Conc 29.7 g/dl (31.0-35.0); Mean Corpuscular Hemoglobin 21.4 pg (27.0-33.0); Mean Corpuscular Volume 72.2 fL (80.0-98.0); Mean Platelet Volume 10.8 fL (9.4-12.3); Monocytes Absolute Auto 0.8 X10*3/uL (0.1-1.2); Monocytes Percent Auto 6.9 % (2-11); Neutrophils Absolute Auto 8.9 x10*3/uL (2.0-8.3); Neutrophils Percent Auto 73.4 % (45-73); Platelet Count 241 X10*3/uL (160-400); Red Cell Distribution Width 16.4 % (11.0-16.0); White Blood Count 12.1 X10*3/uL (4.8-10.8)
[2024-04-05 20:30] LABS: INTERNATIONAL NORM RATIO 2.9 (0.9-1.1); Prothrombin Time 34.8 SEC (11.1-13.3)
[2024-04-05 20:33] LABS: Partial Thromboplastin Time 44.7 SEC (26.0-36.8)
[2024-04-05 20:36] LABS: Alanine Aminotransferase 9 U/L (0-31); Albumin Level 4.1 g/dL (3.5-5.0); Alkaline Phosphatase 80 U/L (39-117); Anion Gap 13 (12-20); Aspartate Amino Transferase 10 U/L (5-31); Bilirubin Direct 0.1 mg/dL (0.0-0.5); Bilirubin Total 0.3 mg/dL (0.0-1.0); Blood Urea Nitrogen 12 mg/dL (9-16); Calcium 9.3 mg/dL (8.4-10.2); Carbon Dioxide 23 mmol/L (22-29); Chloride 107 mmol/L (96-108); Creatinine Clr Calc Pharmacy 70.2; Estimated Glomerular Filt Rate 45; Glucose Random 132 mg/dL (60-115); Lipase 39 U/L (8-78); Magnesium 1.5 mg/dL (1.6-2.6); Potassium 3.3 mmol/L (3.3-5.1); Sodium 140 mmol/L (135-145); Total Protein 7.4 g/dL (6.5-8.0)
[2024-04-05 20:46] LABS: Troponin-I High Sensitivity < 2.7 ng/L (<3.5-17.0)
[2024-04-05 21:08] LABS: Influenza A PCR NEGATIVE (Negative); Influenza B PCR NEGATIVE (Negative); Resp Syncy Virus RNA Qual PCR NEGATIVE (Negative); SARS COV2 PCR INHOUSE NEGATIVE (Negative)
[2024-04-05 22:54] VITALS: BP 124/64; PULSE 93; RESP 16; TEMP 36.8; O2SAT 100
[2024-04-05 23:30] VITALS: PULSE 93
--- NOTE | 2024-04-05 23:39 | ED.CHESTPAIN ---
HPI - Chest Pain General Chief Complaint: Chest Pain Stated Complaint: Sob,chest pain + covid 03/31 Time Seen by Provider: 04/05/24 22:48 Related Data Home Medications ?Medication ?Instructions ?Recorded ?Confirmed atorvastatin 20 mg tablet 20 mg PO BEDTIME 09/14/20 03/19/24 glimepiride 4 mg tablet 4 mg PO BEDTIME 09/14/20 03/19/24 blood sugar diagnostic (FreeStyle #10 ea 02/26/22 03/19/24 Lite Strips) ferrous sulfate 325 mg (65 mg 325 mg PO MOFR@2100 10/25/22 03/19/24 iron) tablet albuterol sulfate 2.5 mg/3 mL 2.5 mg inhalation Q4H PRN Wheezing 01/31/23 03/19/24 (0.083 %) solution for nebulization acetaminophen 650 mg 650 mg PO Q6H PRN pain 03/03/23 03/19/24 tablet,extended release Oxygen Home Use 04/11/23 03/19/24 metformin 1,000 mg tablet 1,000 mg PO BID 06/02/23 03/19/24 nebulizers 07/23/23 03/19/24 sertraline 50 mg tablet 50 mg PO DAILY 10/09/23 03/19/24 levothyroxine 50 mcg tablet 50 mcg PO DAILY 01/08/24 03/19/24 Previous Rx's ?Medication ?Instructions ?Recorded albuterol sulfate 90 mcg/actuation 2 puff inhalation Q6H PRN for 11/17/23 aerosol inhaler (Ventolin HFA) wheezing #18 ea sildenafil (pulm.hypertension) 20 20 mg PO TID 30 days #90 tabs 12/18/23 mg tablet lidocaine 5 % topical patch 1 patch topical DAILY #15 ea 01/18/24 (Lidoderm) furosemide 20 mg tablet (Lasix) 20 mg PO DAILY 3 days #3 tabs 03/09/24 warfarin 5 mg tablet 5 mg PO DAILY 30 days #30 tabs 03/10/24 tirzepatide 5 mg/0.5 mL 5 mg (0.5 mL) subcut QWEEK #2 mL 03/24/24 subcutaneous pen injector (Jose E) Allergies Allergy/AdvReac Type Severity Reaction Status Date / Time lisinopril [LISINOPRIL] Allergy Severe ANGIOEDEMA Verified 04/05/24 19:58 dapagliflozin [From FARXIGA] Allergy Intermediate HIVES Verified 04/05/24 19:58 liraglutide [From VICTOZA] Allergy Intermediate RASH Verified 04/05/24 19:58 metformin [METFORMIN] Allergy Intermediate GI UPSET Verified 04/05/24 19:58 erythromycin base Allergy Unknown UNKNOWN Verified 04/05/24 19:58 [ERYTHROMYCIN BASE] amitriptyline [AMITRIPTYLINE] AdvReac Intermediate DRUGGED Verified 04/05/24 19:58 FEELING PMFSH Past Medical History Medical History Pulmonary hypertension Hypercoagulable state Thyroid cancer Chronic thromboembolic disease Lower extremity edema Multinodular thyroid Family history of deep venous thrombosis Pleuritic chest pain Pulmonary emboli Dyspnea Dyspareunia in female Anemia Obstructive sleep apnea Morbid obesity History of COVID-19 (~2020) History of pulmonary embolus (PE) (~2020) Anxiety Chronic headaches Dyspnea on exertion Diabetes type 2, controlled Hypothyroid HTN (hypertension) Hyperlipidemia Surgical History History of angioplasty History of surgery on right wrist History of foot surgery History of tubal ligation History of carpal tunnel surgery History of ERCP History of laparoscopic cholecystectomy History of surgery Family History Family History Father Myocardial infarction COPD (chronic obstructive pulmonary disease) Mother COPD (chronic obstructive pulmonary disease) Brother Colitis Social History Social History Housing: House Alcohol intake: former Comment: pt d/c home Patient Tobacco Use Status: Never used Tobacco Advance Directives: No Advance Directives Information Provided: No service: No Current occupational status: employed 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 BNP is normal. There is no evidence for congestive heart failure. Patient's troponin x2 sets were negative. Has a history of PE patient's has been compliant with her Coumadin. Her INR was therapeutic. Patient is D-dimer is negative. In this setting unlikely to have PE. Patient EKG showed a sinus pattern heart rate is 110 AL QRS QTC normal there is no acute ST segment elevation. He is well-appearing she is not in distress O2 sat is normal her COVID test actually is now negative despite having a positive COVID test 1 week ago. Likely in recovery phase. She is currently in stable condition will discharge home. Differential Diagnosis Differential Diagnoses: The differential diagnosis associated with the presentation includes PE, pneumonia, COVID, congestive Admission/Observation Consideration of admission/observation: Escalation of care including admission/observation considered Lab Data [facility] Lab Attestation statement: I reviewed the patient's lab results. 04/05/24 20:08 04/05/24 20:07 Labs: Lab Results 04/05/24 04/05/24 04/05/24 Range/Units 20:07 20:08 23:49 WBC 12.1 H (4.8-10.8) X10*3/uL RBC 4.90 (4.20-5.50) X10*6/uL Hgb 10.5 L (12.0-16.0) g/dl Hct 35.4 L (37.0-47.0) % MCV 72.2 L (80.0-98.0) fL MCH 21.4 L (27.0-33.0) pg MCHC 29.7 L (31.0-35.0) g/dl RDW 16.4 H (11.0-16.0) % Plt Count 241 D (160-400) X10*3/uL MPV 10.8 (9.4-12.3) fL Immature Gran % (Auto) 0.4 (0.0-0.4) % Neut % (Auto) 73.4 H (45-73) % Lymph % (Auto) 17.5 L (20-40) % Colbert % (Auto) 6.9 (2-11) % Eos % (Auto) 1.2 (0-4) % Baso % (Auto) 0.6 (0-2) % Lymph # (Auto) 2.1 (1.2-4.9) X10*3/uL Colbert # (Auto) 0.8 (0.1-1.2) X10*3/uL Eos # (Auto) 0.2 (0.0-0.4) X10*3/uL Baso # (Auto) 0.1 (0.0-0.2) X10*3/uL Abs Immat Gran (auto) 0.05 H (0.00-0.03) X10*3/uL Absolute Neuts (auto) 8.9 H (2.0-8.3) x10*3/uL Absolute Nucleated RBC 0.000 (0.0-0.012) X10*3/uL Nucleated RBC % (auto) 0.0 (0.0-0.2) /100WBC PT 34.8 H D (11.1-13.3) SEC INR 2.9 H (0.9-1.1) APTT 44.7 H (26.0-36.8) SEC D-Dimer High Sensitivty 161 NG/ML Hold Blue Top SEE NOTE Sodium 140 (135-145) mmol/L Potassium 3.3 (3.3-5.1) mmol/L Chloride 107 (96-108) mmol/L Carbon Dioxide 23 (22-29) mmol/L Anion Gap 13 (12-20) BUN 12 (9-16) mg/dL Creatinine 1.27 (0.5-1.4) mg/dL Estim Creat Clear Calc 70.2 Estimated GFR 45 Random Glucose 132 H (60-115) mg/dL Calcium 9.3 (8.4-10.2) mg/dL Magnesium 1.5 L (1.6-2.6) mg/dL Total Bilirubin 0.3 (0.0-1.0) mg/dL Direct Bilirubin 0.1 (0.0-0.5) mg/dL AST 10 (5-31) U/L ALT 9 (0-31) U/L Alkaline Phosphatase 80 (39-117) U/L Troponin I High Sens < 2.7 (<3.5-17.0) ng/L B-Natriuretic Peptide < 10 (<100) pg/mL Total Protein 7.4 (6.5-8.0) g/dL Albumin 4.1 (3.5-5.0) g/dL Lipase 39 (8-78) U/L Influenza Type A (PCR) NEGATIVE (Negative) Influenza Type B (PCR) NEGATIVE (Negative) RSV RNA Qual (PCR) NEGATIVE (Negative) SARS-CoV-2 RNA (RT-PCR) NEGATIVE (Negative) 04/05/24 Range/Units 23:56 WBC (4.8-10.8) X10*3/uL RBC (4.20-5.50) X10*6/uL Hgb (12.0-16.0) g/dl Hct (37.0-47.0) % MCV (80.0-98.0) fL MCH (27.0-33.0) pg MCHC (31.0-35.0) g/dl RDW (11.0-16.0) % Plt Count (160-400) X10*3/uL MPV (9.4-12.3) fL Immature Gran % (Auto) (0.0-0.4) % Neut % (Auto) (45-73) % Lymph % (Auto) (20-40) % Colbert % (Auto) (2-11) % Eos % (Auto) (0-4) % Baso % (Auto) (0-2) % Lymph # (Auto) (1.2-4.9) X10*3/uL Colbert # (Auto) (0.1-1.2) X10*3/uL Eos # (Auto) (0.0-0.4) X10*3/uL Baso # (Auto) (0.0-0.2) X10*3/uL Abs Immat Gran (auto) (0.00-0.03) X10*3/uL Absolute Neuts (auto) (2.0-8.3) x10*3/uL Absolute Nucleated RBC (0.0-0.012) X10*3/uL Nucleated RBC % (auto) (0.0-0.2) /100WBC PT (11.1-13.3) SEC INR (0.9-1.1) APTT (26.0-36.8) SEC D-Dimer High Sensitivty NG/ML Hold Blue Top Sodium (135-145) mmol/L Potassium (3.3-5.1) mmol/L Chloride (96-108) mmol/L Carbon Dioxide (22-29) mmol/L Anion Gap (12-20) BUN (9-16) mg/dL Creatinine (0.5-1.4) mg/dL Estim Creat Clear Calc Estimated GFR Random Glucose (60-115) mg/dL Calcium (8.4-10.2) mg/dL Magnesium (1.6-2.6) mg/dL Total Bilirubin (0.0-1.0) mg/dL Direct Bilirubin (0.0-0.5) mg/dL AST (5-31) U/L ALT (0-31) U/L Alkaline Phosphatase (39-117) U/L Troponin I High Sens 3.5 (<3.5-17.0) ng/L B-Natriuretic Peptide (<100) pg/mL Total Protein (6.5-8.0) g/dL Albumin (3.5-5.0) g/dL Lipase (8-78) U/L Influenza Type A (PCR) (Negative) Influenza Type B (PCR) (Negative) RSV RNA Qual (PCR) (Negative) SARS-CoV-2 RNA (RT-PCR) (Negative) Independent Interpretation I performed an independent interpretation of an: EKG (Sinus heart rate is 110 AL QRS QTC normal there is no acute ST segment elevation noted.) External Record Review External record reviewed: Inpatient record Tests considered The following testing was considered but not selected: CTA not done as patient had a negative D-dimer and has therapeutic Coumadin level making PE unlikely Chronic Conditions History of PE Discharge Plan Discharge Clinical Impression: Shortness of breath Patient Disposition: Home, Self-Care Instructions: Shortness of Breath (ED) Prescriptions: No Action albuterol sulfate [Ventolin HFA] 90 mcg/actuation HFA aerosol inhaler 2 puff inhalation Q6H PRN (Reason: for wheezing) Qty: 18 12RF sildenafil (pulm.hypertension) 20 mg tablet 20 mg PO TID 30 Days Qty: 90 6RF Rx Instructions: administer doses at least 4-6 hours apart warfarin 5 mg tablet 5 mg PO DAILY 30 Days Qty: 30 2RF Protocol: Dose Management Condition: Friday (Week One) Dose/Route: 2.5 mg Instruction: 0.5 x 5 mg tablets Condition: Friday Dose/Route: 5 mg Instruction: 1 x 5 mg tablet Condition: Friday Dose/Route: 2.5 mg Instruction: 0.5 x 5 mg tablets Condition: Friday Dose/Route: 2.5 mg Instruction: 0.5 x 5 mg tablets Condition: Dose/Route: 5 mg Instruction: 1 x 5 mg tablet Condition: Friday Dose/Route: 2.5 mg Instruction: 0.5 x 5 mg tablets Condition: Friday Dose/Route: 2.5 mg Instruction: 0.5 x 5 mg tablets Condition: Friday (Week Two) Dose/Route: 2.5 mg Instruction: 0.5 x 5 mg tablets Condition: Friday Dose/Route: 5 mg Instruction: 1 x 5 mg tablet Condition: Friday Dose/Route: 2.5 mg Instruction: 0.5 x 5 mg tablets Condition: Friday Dose/Route: 2.5 mg Instruction: 0.5 x 5 mg tablets Condition: Dose/Route: 5 mg Instruction: 1 x 5 mg tablet Condition: Friday Dose/Route: 2.5 mg Instruction: 0.5 x 5 mg tablets Condition: Friday Dose/Route: 2.5 mg Instruction: 0.5 x 5 mg tablets Protocol Text: Adjustment Start Date: Friday03/19/24 INR Value: 2.4 INR Date: 03/19/24 Recheck Date: 04/02/24 Mounjaro 5 mg/0.5 mL pen injector 5 mg subcut QWEEK Qty: 2 4RF lidocaine [Lidoderm] 5 % adhesive patch,medicated 1 patch topical DAILY Qty: 15 0RF Rx Instructions: leave on most painful area for up to 12 hrs atorvastatin 20 mg tablet 20 mg PO BEDTIME glimepiride 4 mg tablet 4 mg PO BEDTIME (DME) FreeStyle Lite Strips Strip See Rx Instructions Not Applicable BID Qty: 10 Rx Instructions: As directed levothyroxine 50 mcg tablet 50 mcg PO DAILY ferrous sulfate 325 mg (65 mg iron) tablet 325 mg PO MOFR@2100 acetaminophen 650 mg tablet extended release 650 mg PO Q6H PRN (Reason: pain) (DME) nebulizers Misc See Rx Instructions .Route Rx Instructions: As directed albuterol sulfate 2.5 mg /3 mL (0.083 %) solution for nebulization 2.5 mg inhalation Q4H PRN (Reason: Wheezing) (DME) Oxygen Home Use Kit See Rx Instructions .Route Rx Instructions: As directed metformin 1,000 mg tablet 1,000 mg PO BID sertraline 50 mg tablet 50 mg PO DAILY furosemide [Lasix] 20 mg tablet 20 mg PO DAILY 3 Days Qty: 3 0RF Referrals: Deena Workman MD [Primary Care Provider] - 04/07/24 Print Language: Georgian
[2024-04-05 23:52] LABS: D Dimer High Sensitivity 161 NG/ML
[2024-04-06 00:03] LABS: B Type Natriuretic Peptide < 10 pg/mL (<100)
[2024-04-06 00:20] LABS: Troponin-I High Sensitivity 3.5 ng/L (<3.5-17.0)
[2024-04-06 00:53] VITALS: BP 124/64; PULSE 93; RESP 16; TEMP 36.8; O2SAT 100
== END 2024-04-06 00:54 | disposition home or self-care (01) ==
PROVIDERS: Physician Assistant Medical; Emergency Provider Emergency Medicine Emergency Medical Services; PCP Internal Medicine
DX: R07.89 Other chest pain (principal); R06.02 Shortness of breath; Z79.899 Other long term (current) drug therapy; Z03.818 Encounter for observation for suspected exposure to other biological agents ruled out
CPT/HCPCS: 0241U; 36415; 71046; 80048; 80076; 83690; 83735; 83880; 84484; 85025; 85379; 85610; 85730; 93005; 99283; 99285

== ENCOUNTER 2024-04-08 10:42 | Outpatient (REF) | payer OTHER, SELFPAY ==
[2024-04-08 11:35] LABS: MANUAL DIFF FLAG NO
[2024-04-08 12:03] LABS: Estimated Average Glucose 128 mg/dL; Hemoglobin A1c % 6.1 % (<6.0)
[2024-04-08 12:06] LABS: Basophils Absolute Auto 0.1 X10*3/uL (0.0-0.2); Basophils Percent Auto 0.5 % (0-2); Eosinophils Absolute Auto 0.2 X10*3/uL (0.0-0.4); Eosinophils Percent Auto 1.8 % (0-4); Hemoglobin 10.2 g/dl (12.0-16.0); Imm Gran Abs Auto 0.07 X10*3/uL (0.00-0.03); Imm Gran Pct Auto 0.6 % (0.0-0.4); Lymphocytes Absolute Auto 2.1 X10*3/uL (1.2-4.9); Lymphocytes Percent Auto 17.3 % (20-40); Mean Corpuscular Hemoglobin 21.3 pg (27.0-33.0); Mean Platelet Volume 11.3 fL (9.4-12.3); Monocytes Absolute Auto 0.9 X10*3/uL (0.1-1.2); Neutrophils Percent Auto 72.8 % (45-73); Platelet Count 267 X10*3/uL (160-400); Red Blood Count 4.79 X10*6/uL (4.20-5.50); Red Cell Distribution Width 16.4 % (11.0-16.0); White Blood Count 12.4 X10*3/uL (4.8-10.8)
[2024-04-08 12:39] LABS: Alanine Aminotransferase 5 U/L (0-31); Albumin Level 3.9 g/dL (3.5-5.0); Alkaline Phosphatase 89 U/L (39-117); Anion Gap 16 (12-20); Aspartate Amino Transferase 8 U/L (5-31); Bilirubin Total 0.4 mg/dL (0.0-1.0); Blood Urea Nitrogen 10 mg/dL (9-16); Calcium 9.2 mg/dL (8.4-10.2); Carbon Dioxide 22 mmol/L (22-29); Chloride 107 mmol/L (96-108); Estimated Glomerular Filt Rate 45; Glucose Random 122 mg/dL (60-115); Potassium 3.8 mmol/L (3.3-5.1); Sodium 141 mmol/L (135-145); Total Protein 7.2 g/dL (6.5-8.0)
[2024-04-08 12:57] LABS: Ferritin 50 ng/mL (10-250)
[2024-04-08 13:13] LABS: Folate 7.7 ng/mL (> or = 4.0); Vitamin B12 539 pg/mL (200-900)
== END 2024-04-08 10:43 | disposition home or self-care (01) ==
LOC: HO.LAB 10:42
PROVIDERS: Absent Provider Internal Medicine; PCP Internal Medicine; Visit Provider Internal Medicine
DX: D64.89 Other specified anemias (principal); F32.2 Major depressive disorder, single episode, severe without psychotic features; R80.8 Other proteinuria; E11.22 Type 2 diabetes mellitus with diabetic chronic kidney disease; N18.9 Chronic kidney disease, unspecified
CPT/HCPCS: 36415; 80053; 82607; 82728; 82746; 83036; 85025; 85610; 99211

== ENCOUNTER 2024-04-08 10:42 | Outpatient (AMB) | payer OTHER, SELFPAY ==
--- NOTE | 2024-04-08 10:53 | MHC.OFFVISCO ---
Intake Intake Visit Reasons: Anticoagulation Allergies lisinopril [LISINOPRIL] Allergy (Severe, Verified 04/08/24 10:45) ANGIOEDEMA dapagliflozin [From FARXIGA] Allergy (Intermediate, Verified 04/08/24 10:45) HIVES liraglutide [From VICTOZA] Allergy (Intermediate, Verified 04/08/24 10:45) RASH metformin [METFORMIN] Allergy (Intermediate, Verified 04/08/24 10:45) GI UPSET erythromycin base [ERYTHROMYCIN BASE] Allergy (Unknown, Verified 04/08/24 10:45) UNKNOWN amitriptyline [AMITRIPTYLINE] Adverse Reaction (Intermediate, Verified 04/08/24 10:45) DRUGGED FEELING Medication List - Last Reconciled 04/08/24 by Linh Mcnulty RN acetaminophen ER 650 mg PO Q6H PRN albuterol sulfate 2.5 mg inhalation Q4H PRN albuterol sulfate 90 mcg/actuation (Ventolin HFA) 2 puffs inhalation Q6H PRN atorvastatin 20 mg PO BEDTIME blood sugar diagnostic (FreeStyle Lite Strips) As directed ferrous sulfate 325 mg PO MOFR@2100 furosemide (Lasix) 20 mg PO DAILY 3 days glimepiride 4 mg PO BEDTIME levothyroxine 50 mcg PO DAILY lidocaine 5% (Lidoderm) 1 patch topical DAILY metformin 1,000 mg PO BID nebulizers As directed Oxygen Home Use As directed sertraline 50 mg PO DAILY sildenafil (pulm.hypertension) 20 mg PO TID 30 days tirzepatide (Mounjaro) 5 mg (0.5 mL) subcut QWEEK warfarin 5 mg See Protocol PO DAILY 30 days Nursing Note INR 4.4-? out of therapeutic range of 2-3 Medications and supplements reviewed Patient status: pt s/p covid, pt went to ed on friday for pain with breathing, cxr, ddimer, labs- pt states atelectasis pt enc to speak to her pulmonalogist. pt on cont oxygen, inr on 04/05/24 was 2.9 Medications or supplements: no changes Diet: fair to poor Denies any signs and symptoms of bleeding or clotting or unusual bruising Bleeding, bruising, clotting discussed - aware at risk for bleediing, avoid high risk activity Nutritional guidance given: eat greens to lower, no reds for 2-3 days Dose: hold warfarin today then cont reg 5mg x 2, 2.5mg x 5 F/U INR Date : fri04/14/24? Patient verbalizing understanding of instructions given. Anti-Coag Initial Assessment Social Hx Patient Tobacco Use Status: Never used Tobacco alcohol intake: former Alcohol intake frequency: does not drink Cardiovascular Hx: HTN Lung Disease HX: DVT/PE Endocrine Hx: Thyroid Disease Musculoskeletal Hx: Arthritis Blood Disorder Hx: Anemia and Hyperlipidemia GI Hx: Ulcers, Diverticulosis and Hemorrhoids Hx: Other Neurological Hx: Migraines/Headaches and Other Cancer HX: No Psych. 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
[2024-04-08 12:55] LABS: Prothrombin Time Whole Bld POC 53.2 sec (11.1-13.5); ~PT, ~INR - Anti Coag Clinic 4.4 (0.9-1.1)
== END 2024-04-08 11:09 | disposition home or self-care (01) ==
LOC: HO.ACS 10:42
PROVIDERS: PCP Internal Medicine; Visit Provider Internal Medicine
DX: Z79.01 Long term (current) use of anticoagulants (principal)

== ENCOUNTER → 2024-04-14 13:34 | Outpatient (BNVA) | payer OTHER, SELFPAY | PROVIDERS: PCP Internal Medicine; Visit Provider Internal Medicine | DX: C73 Malignant neoplasm of thyroid gland (principal); E11.9 Type 2 diabetes mellitus without complications; I26.99 Other pulmonary embolism without acute cor pulmonale; Z79.01 Long term (current) use of anticoagulants; Z51.81 Encounter for therapeutic drug level monitoring | CPT/HCPCS: 82947; 85610; 99211; 99212 ==

== ENCOUNTER 2024-04-14 15:27 | Outpatient (AMB) | payer OTHER, SELFPAY ==
--- NOTE | 2024-04-14 15:35 | A.OFFVIS_ITS ---
Vital Signs 04/14/24 15:36 Height 5 ft 5 in Weight 252 lb BMI 41.9 BP 116/78 Blood Pressure Location Rt brachial Position Sitting Pulse 91 Pulse Source Pulse Oximeter Intake Visit Reasons: DM/LVM Intake Note: Patient presents today to re-establish treatment for Type 2 Diabetes Mellitus: Last Diabetic Eye exam: 08/2023 Last Podiatry Exam: Does not see a Train Gate Attendant Most recent HbA1c: 6.1%, 04/08/2024 Random Glucose- 136 mg/dL, Today Care Navigator Required: No Accompanied by: Self / Same As Patient Allergies lisinopril [LISINOPRIL] Allergy (Severe, Verified 04/22/24 11:41) ANGIOEDEMA dapagliflozin [From FARXIGA] Allergy (Intermediate, Verified 04/22/24 11:41) HIVES liraglutide [From VICTOZA] Allergy (Intermediate, Verified 04/22/24 11:41) RASH metformin [METFORMIN] Allergy (Intermediate, Verified 04/22/24 11:41) GI UPSET erythromycin base [ERYTHROMYCIN BASE] Allergy (Unknown, Verified 04/22/24 11:41) UNKNOWN amitriptyline [AMITRIPTYLINE] Adverse Reaction (Intermediate, Verified 04/22/24 11:41) DRUGGED FEELING HPI Comments Details: 48 year old with type 2 diabetes, history of multinodular goiter presenting for follow up Medical history: hypertension, hypothyroidism, mixed hyperlipidemia, history of PE Initially diagnosed with T2DM in >10 yrs Current regimen:glimeprimide 4 mg QD Mounjaro 5mg Qwkly A1C 6.1% Previous meds: Metformin-GI upset, victoza-?rash, farxiga-hives NO sensor download today Family history of T2DM in paternal grandmother no one else with diabetes . Has eyes checked yearly, last eye exam 06/2023 , denies retinopathy. Denies neuropathy, not sees podiatry. Denies nephropathy, on ASIF/ARB. . Has HLD, on statin. . Denies CAD. 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 HEENT: Denies changes in vision and hearing. RESPIRATORY: Denies SOB and cough. CV: Denies palpitations and CP GI: Denies abdominal pain, nausea, vomiting and diarrhea. : Denies dysuria and urinary frequency. MSK: Denies new myalgia and joint pain. SKIN: Denies rash and pruritus. NEUROLOGICAL: Denies headache PSYCHIATRIC: Denies recent changes in mood. PHYSICAL EXAM: GENERAL: Alert and oriented x 3. NAD EYES: EOMI. Anicteric. HENT: Moist mucous membranes. No scleral icterus. LUNGS: Clear to auscultation bilaterally. CARDIOVASCULAR: Regular rate and rhythm. No murmur. No JVD. ABDOMEN: Soft, non-tender +bs EXTREMITIES: No edema. Non-tender. SKIN: No rashes or lesions. Warm. NEUROLOGIC: No focal neurological deficits. CN II-XII grossly intact. Normal monofilament. PSYCHIATRIC: Cooperative. Appropriate mood and affect [facility] Medical History Pulmonary hypertension Hypercoagulable state Thyroid cancer Chronic thromboembolic disease Lower extremity edema Multinodular thyroid Family history of deep venous thrombosis Pleuritic chest pain Pulmonary emboli Dyspnea Dyspareunia in female Anemia Obstructive sleep apnea Morbid obesity History of COVID-19 (~2020) History of pulmonary embolus (PE) (~2020) Anxiety Chronic headaches Dyspnea on exertion Diabetes type 2, controlled Hypothyroid HTN (hypertension) Hyperlipidemia Surgical History History of angioplasty History of surgery on right wrist History of foot surgery History of tubal ligation History of carpal tunnel surgery History of ERCP History of laparoscopic cholecystectomy History of surgery Family History Father Myocardial infarction COPD (chronic obstructive pulmonary disease) Mother COPD (chronic obstructive pulmonary disease) Brother Colitis Social History Housing: House Alcohol intake: former Comment: pt d/c home Patient Tobacco Use Status: Never used Tobacco service: No Current occupational status: employed 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 Labs ordered. continue follow up (2) T2DM (type 2 diabetes mellitus): Code(s): E11.9 - Type 2 diabetes mellitus without complications Category: Medical Qualifiers: Diabetes mellitus rubber and pounder insulin use: without rubber and pounder use Diabetes mellitus complication status: without complication Qualified Code(s): E11.9 - Type 2 diabetes mellitus without complications Plan: controlled on current medication. continue current medications-she has not bee taking the mounjaro 5mg very long Microvascular/macrovascular complication of diabetes discussed Coding Level of Care Code Est Pt Level 4 (24230) Diagnoses Thyroid cancer C73 Type 2 diabetes mellitus without complication, without long-term current use of insulin E11.9 Diabetes mellitus rubber and pounder insulin use: without shelter use Diabetes mellitus complication status: without complication
[2024-04-14 15:36] VITALS: BP 116/78; PULSE 91; BMI 41.9
[2024-04-14 15:46] LABS: Glucose, Whole Blood 136 mg/dL (60-115)
== END 2024-04-14 16:07 | disposition home or self-care (01) ==
PROVIDERS: PCP Internal Medicine; Visit Provider Internal Medicine
DX: C73 Malignant neoplasm of thyroid gland (principal); E11.9 Type 2 diabetes mellitus without complications
CPT/HCPCS: 99214

== ENCOUNTER 2024-04-20 08:36 | Outpatient (REF) | payer OTHER, SELFPAY ==
[2024-04-20 11:12] LABS: C Reactive Protein 0.53 mg/dL (< or = 0.50)
[2024-04-20 11:37] LABS: Erythrocyte Sedimentation Rate 29 MM/HR (0-20)
[2024-04-21 10:39] LABS: Thyroglobulin Antibodies <1 IU/mL (< or = 1); Thyroid Peroxidase Antibodies <1 IU/mL (<9)
[2024-04-22 07:19] LABS: Antibody to SS-A Antigen <1.0 NEG AI (<1.0 NEG); Antibody to SS-B Antigen <1.0 NEG AI (<1.0 NEG); SM/Ribonucleoprotein Ab <1.0 NEG AI (<1.0 NEG); Smith Protein <1.0 NEG AI (<1.0 NEG)
[2024-04-22 11:02] LABS: Complement C3 176 mg/dL (83-193)
[2024-04-29 21:38] LABS: Centromere Protein A Ab <11 SI (<11); Centromere Protein B Ab <11 SI (<11); Fibrillarin Ab <11 SI (<11); PM SCL 100 Ab <11 SI (<11); PM SCL 75 Ab <11 SI (<11); RNA Polymerase III RP11 Ab <11 SI (<11); RNA Polymerase III RP155 Ab <11 SI (<11); SCL-70 Extractable Nuclear Ab <11 SI (<11); Th-To Ab <11 SI (<11); U1 SNRNP RNP 70KD <11 SI (<11); U1 SNRNP RNP A <11 SI (<11); U1 SNRNP RNP C <11 SI (<11)
== END 2024-04-20 08:37 | disposition home or self-care (01) ==
LOC: HO.LAB 08:36
PROVIDERS: PCP Internal Medicine; Visit Provider Student in an Organized Health Care Education/Training Program
DX: M32.9 Systemic lupus erythematosus, unspecified (principal); M34.9 Systemic sclerosis, unspecified; E03.9 Hypothyroidism, unspecified; I27.20 Pulmonary hypertension, unspecified; Z86.711 Personal history of pulmonary embolism; Z79.01 Long term (current) use of anticoagulants; E11.22 Type 2 diabetes mellitus with diabetic chronic kidney disease; N18.9 Chronic kidney disease, unspecified; Z79.84 Long term (current) use of oral hypoglycemic drugs
CPT/HCPCS: 36415; 84182; 85610; 85652; 86140; 86160; 86235; 86376; 86800; 99202; 99211

== ENCOUNTER 2024-04-20 08:36 | Outpatient (AMB) | payer OTHER, SELFPAY ==
--- NOTE | 2024-04-20 08:38 | MHC.OFFVIS ---
Vital Signs 04/20/24 08:43 Height 5 ft 5 in Weight 263 lb 0.8 oz BMI 43.8 BP 122/80 Blood Pressure Location Rt brachial Position Sitting Respiration 16 Pulse 84 Pulse Source Pulse Oximeter Pulse Oximetry (%) 98 Oxygen Delivery Method Room Air Intake Visit Reasons: Connective tissues disease/CM Intake Note: Patient presents for connective tissue disease. Allergies lisinopril [LISINOPRIL] Allergy (Severe, Verified 04/20/24 08:42) ANGIOEDEMA dapagliflozin [From FARXIGA] Allergy (Intermediate, Verified 04/20/24 08:42) HIVES liraglutide [From VICTOZA] Allergy (Intermediate, Verified 04/20/24 08:42) RASH metformin [METFORMIN] Allergy (Intermediate, Verified 04/20/24 08:42) GI UPSET erythromycin base [ERYTHROMYCIN BASE] Allergy (Unknown, Verified 04/20/24 08:42) UNKNOWN amitriptyline [AMITRIPTYLINE] Adverse Reaction (Intermediate, Verified 04/20/24 08:42) DRUGGED FEELING Medication List - Last Reconciled 04/20/24 by Berna Verma MD acetaminophen ER 650 mg PO Q6H PRN albuterol sulfate 2.5 mg inhalation Q4H PRN albuterol sulfate 90 mcg/actuation (Ventolin HFA) 2 puffs inhalation Q6H PRN atorvastatin 20 mg PO BEDTIME blood sugar diagnostic (FreeStyle Lite Strips) As directed ferrous sulfate 325 mg PO MOFR@2100 furosemide (Lasix) 20 mg PO DAILY 3 days glimepiride 4 mg PO BEDTIME levothyroxine 50 mcg PO DAILY lidocaine 5% (Lidoderm) 1 patch topical DAILY metformin 1,000 mg PO BID nebulizers As directed Oxygen Home Use As directed sertraline 50 mg PO DAILY sildenafil (pulm.hypertension) 20 mg PO TID 30 days tirzepatide (Mounjaro) 5 mg (0.5 mL) subcut QWEEK warfarin 5 mg See Protocol PO DAILY 30 days HPI Comments Details: This is a 48-year-old female with history of pulmonary hypertension on sildenafil, CKD, PE on warfarin who presents for evaluation of a positive ANANDA. Patient had a positive ANANDA +low C3 and C4 when worked up by Nephrology for LEXUS. Patient had COVID infection followed by the. She took Eliquis for a few months then discontinued get, her D-dimer was elevated and she was restarted on Eliquis. She only took 1 tab daily. She developed another PE a few months later. At that time she was started on Coumadin. She is being followed by Dr. Metcalf. Hypercoagulable workup revealed heterozygous factor 5 Leiden mutation. She was also found to have pulmonary hypertension and had balloon angioplasty of pulmonary artery in [place]. On sildenafil for her hypertension. Patient states that she gets chronic joint pains in her hands, neck, knees, feet. She states that she has had bilateral knee arthritis for years, left is worse than right. She received numerous cortisone injections in the knees. Last injection was about 2 years ago. She states that the injections stopped helping she denies any skin rashes. Patient had 5 miscarriages followed by 1 live . She was told she needed treatment for her gestational diabetes. She is unaware of any family history of an autoimmune rheumatic disease [facility] Medical History Pulmonary hypertension Hypercoagulable state Thyroid cancer Chronic thromboembolic disease Lower extremity edema Multinodular thyroid Family history of deep venous thrombosis Pleuritic chest pain Pulmonary emboli Dyspnea Dyspareunia in female Anemia Obstructive sleep apnea Morbid obesity History of COVID-19 (~2020) History of pulmonary embolus (PE) (~2020) Anxiety Chronic headaches Dyspnea on exertion Diabetes type 2, controlled Hypothyroid HTN (hypertension) Hyperlipidemia Surgical History History of angioplasty History of surgery on right wrist History of foot surgery History of tubal ligation History of carpal tunnel surgery History of ERCP History of laparoscopic cholecystectomy History of surgery Family History Father Myocardial infarction COPD (chronic obstructive pulmonary disease) Mother COPD (chronic obstructive pulmonary disease) Brother Colitis Social History Housing: House Alcohol intake: former Comment: pt d/c home Patient Tobacco Use Status: Never used Tobacco service: No Current occupational status: employed 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, 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 Current occupational exposures/hazards: No Female Reproductive History Menstrual Total pregnancies: 6 Full term: 1 Ab spontaneous: 5 Review of Systems Musc Reports back pain, Reports arthralgias, Reports joint swelling and Reports stiffness Skin/Breast Denies alopecia and Denies rash Physical Exam Vital Signs: Last Vital Signs Pulse 84 04/20/24 08:43 Resp 16 04/20/24 08:43 BP 122/80 04/20/24 08:43 Pulse Ox 98 04/20/24 08:43 Oxygen Delivery Method Room Air 04/20/24 08:43 BMI result Body Mass Index 43.8 Const General: cooperative, healthy appearing and comfortable Nutritional Appearance: obese morbidly obese Orientation/consciousness: patient oriented x3 Limitations: no limitations HEENT Head: Yes normocephalic and Yes atraumatic Mouth: moist mucous membranes Resp Effort & Inspection: normal respiratory effort and able to speak in complete sentences Auscultation: clear to auscultation bilaterally Cardio Rate: regular rate Rhythm: regular rhythm Skin General skin exam: no rashes or lesions noted Neuro General: patient oriented x3 Extrem Other: Mild wrist pain bilaterally with full flexion but no tender joints Normal range of motion of hands, wrists, elbows and shoulders without pain Mild bilateral knee warmth, crepitus and pain with flexion and extension No ankle swelling or tenderness bilaterally Normal nailfold capillaroscopy Assessment & Plan Assessment & Plan (1) ANANDA positive: Code(s): R76.8 - Other specified abnormal immunological findings in serum Category: Medical Plan: This is a 48-year-old female with history of hypothyroidism, CKD, pulmonary hypertension (likely group 4) on sildenafil and Coumadin, recurrent pulmonary embolism who presents for evaluation of positive ANANDA with low C3 and C4. I will order comprehensive serology to screen for underlying autoimmune rheumatic disease. Follow-up in 6-8 weeks Plan I spent 48 minutes reviewing patient's chart, evaluating patient, ordering diagnostic workup, counseling patient and documenting in the chart Orders: Orders Anti Extractable Nuclear Ag Today M32.9 - Systemic lupus erythematosus, unspecified Complement C3 Today M32.9 - Systemic lupus erythematosus, unspecified Erythrocyte Sedimentation Rate Today M32.9 - Systemic lupus erythematosus, unspecified Scleroderma 12 Panel Today M34.9 - Systemic sclerosis, unspecified Thyroid Peroxidase Antibodies Today E03.9 - Hypothyroidism, unspecified Complement C4 Today M32.9 - Systemic lupus erythematosus, unspecified C Reactive Protein Today M32.9 - Systemic lupus erythematosus, unspecified Sjogren's Antibodies Today M32.9 - Systemic lupus erythematosus, unspecified Thyroglobulin Antibodies Today E03.9 - Hypothyroidism, unspecified Coding Level of Care Code New Pt Level 4 (87946) Diagnoses ANANDA positive R76.8
[2024-04-20 08:43] VITALS: BP 122/80; PULSE 84; RESP 16; O2SAT 98; BMI 43.8
== END 2024-04-20 09:08 | disposition home or self-care (01) ==
PROVIDERS: PCP Internal Medicine; Visit Provider Student in an Organized Health Care Education/Training Program
DX: R76.8 Other specified abnormal immunological findings in serum (principal)
CPT/HCPCS: 99204

== ENCOUNTER 2024-04-20 09:20 | Outpatient (AMB) | payer OTHER, SELFPAY ==
[2024-04-20 09:35] LABS: Prothrombin Time Whole Bld POC 53.6 sec (11.1-13.5); ~PT, ~INR - Anti Coag Clinic 4.5 (0.9-1.1)
--- NOTE | 2024-04-20 09:43 | MHC.OFFVISCO ---
Intake Intake Visit Reasons: Anticoagulation Allergies lisinopril [LISINOPRIL] Allergy (Severe, Verified 04/20/24 09:26) ANGIOEDEMA dapagliflozin [From FARXIGA] Allergy (Intermediate, Verified 04/20/24 09:26) HIVES liraglutide [From VICTOZA] Allergy (Intermediate, Verified 04/20/24 09:26) RASH metformin [METFORMIN] Allergy (Intermediate, Verified 04/20/24 09:26) GI UPSET erythromycin base [ERYTHROMYCIN BASE] Allergy (Unknown, Verified 04/20/24 09:26) UNKNOWN amitriptyline [AMITRIPTYLINE] Adverse Reaction (Intermediate, Verified 04/20/24 09:26) DRUGGED FEELING Medication List - Last Reconciled 04/20/24 by Francine Mitchell RN acetaminophen ER 650 mg PO Q6H PRN albuterol sulfate 2.5 mg inhalation Q4H PRN albuterol sulfate 90 mcg/actuation (Ventolin HFA) 2 puffs inhalation Q6H PRN atorvastatin 20 mg PO BEDTIME blood sugar diagnostic (FreeStyle Lite Strips) As directed ferrous sulfate 325 mg PO MOFR@2100 furosemide (Lasix) 20 mg PO DAILY 3 days glimepiride 4 mg PO BEDTIME levothyroxine 50 mcg PO DAILY lidocaine 5% (Lidoderm) 1 patch topical DAILY metformin 1,000 mg PO BID nebulizers As directed Oxygen Home Use As directed sertraline 50 mg PO DAILY sildenafil (pulm.hypertension) 20 mg PO TID 30 days tirzepatide (Mounjaro) 5 mg (0.5 mL) subcut QWEEK warfarin 5 mg See Protocol PO DAILY 30 days Nursing Note Pt to ACS with portable O2. No resp distress. INR: 4.5 out therapeutic range of 2-3 S/P Covid on 04/05. Appetite remains poor. States she has been having increased amounts of hot tea which has caffeine and can raise the INR in addition to poor appetite and covid. Medications and supplements reviewed No changes in medications, or supplements. Denies any signs and symptoms of bleeding or bruising or clotting. Bleeding, bruising, clotting discussed. Pt knows she is at an increased risk of bleeding. States she is going for a tattoo tomorrow on her outer ear and will still do it despite the INR and suggestion to not to that. Nutritional guidance given: to change to decaf tea, add a protein shake if not eating andwill have a dose of spinach today. Dose: hold today's dose of 2.5mg and tomorrow's dose of 2.5mg and will retest pt in 2 days. Question lowering pt's weekly dose. F/U INR: 04/22/24 Patient verbalizes understanding of instructions given Anti-Coag Initial Assessment Social Hx Patient Tobacco Use Status: Never used Tobacco alcohol intake: former Alcohol intake frequency: does not drink Cardiovascular Hx: HTN Lung Disease HX: DVT/PE Endocrine Hx: Thyroid Disease Musculoskeletal Hx: Arthritis Blood Disorder Hx: Anemia and Hyperlipidemia GI Hx: Ulcers, Diverticulosis and Hemorrhoids Hx: Other Neurological Hx: Migraines/Headaches and Other Cancer HX: No Psych. 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
== END 2024-04-20 09:57 | disposition home or self-care (01) ==
LOC: HO.ACS 09:20
PROVIDERS: PCP Internal Medicine; Visit Provider Internal Medicine
DX: Z79.01 Long term (current) use of anticoagulants (principal)

== ENCOUNTER 2024-04-22 11:37 | Outpatient (AMB) | payer OTHER, SELFPAY ==
[2024-04-22 11:53] LABS: Prothrombin Time Whole Bld POC 26.4 sec (11.1-13.5); ~PT, ~INR - Anti Coag Clinic 2.2 (0.9-1.1)
--- NOTE | 2024-04-22 12:09 | MHC.OFFVISCO ---
Intake Intake Visit Reasons: Anticoagulation Allergies lisinopril [LISINOPRIL] Allergy (Severe, Verified 04/22/24 11:41) ANGIOEDEMA dapagliflozin [From FARXIGA] Allergy (Intermediate, Verified 04/22/24 11:41) HIVES liraglutide [From VICTOZA] Allergy (Intermediate, Verified 04/22/24 11:41) RASH metformin [METFORMIN] Allergy (Intermediate, Verified 04/22/24 11:41) GI UPSET erythromycin base [ERYTHROMYCIN BASE] Allergy (Unknown, Verified 04/22/24 11:41) UNKNOWN amitriptyline [AMITRIPTYLINE] Adverse Reaction (Intermediate, Verified 04/22/24 11:41) DRUGGED FEELING Medication List - Last Reconciled 04/22/24 by Licha Muñoz RN acetaminophen ER 650 mg PO Q6H PRN albuterol sulfate 2.5 mg inhalation Q4H PRN albuterol sulfate 90 mcg/actuation (Ventolin HFA) 2 puffs inhalation Q6H PRN atorvastatin 20 mg PO BEDTIME blood sugar diagnostic (FreeStyle Lite Strips) As directed ferrous gluconate 324 mg PO DAILY furosemide (Lasix) 20 mg PO DAILY 3 days glimepiride 4 mg PO BEDTIME levothyroxine 50 mcg PO DAILY metformin 1,000 mg PO BID nebulizers As directed Oxygen Home Use As directed sertraline 100 mg PO DAILY sildenafil (pulm.hypertension) 20 mg PO TID 30 days tirzepatide (Mounjaro) 5 mg (0.5 mL) subcut QWEEK warfarin 5 mg See Protocol PO DAILY 30 days Nursing Note INR: 2.2 in therapeutic range s/p covid Medications and supplements reviewed Has decreased appetite since covid and mounjaro and has lost weight, She no longer cares to eat meat due to recent news on social media and decreased appetite Denies any signs and symptoms of bleeding or bruising or clotting. Bleeding, bruising, clotting discussed Nutritional guidance given - Review food list weekly, wait 2 days to eat greens then resume usual diet , doesnt eat very much meat Dose: resume usual dose 5mg x 2days/ 2.5mg x 5 days F/U INR: 1 week due to recent covid Patient verbalizes understanding of instructions given Anti-Coag Initial Assessment Social Hx Patient Tobacco Use Status: Never used Tobacco alcohol intake: former Alcohol intake frequency: does not drink Cardiovascular Hx: HTN Lung Disease HX: DVT/PE Endocrine Hx: Thyroid Disease Musculoskeletal Hx: Arthritis Blood Disorder Hx: Anemia and Hyperlipidemia GI Hx: Ulcers, Diverticulosis and Hemorrhoids Hx: Other Neurological Hx: Migraines/Headaches and Other Cancer HX: No Psych. Illness/Depression: Yes Coding Level of Care Code Est Patient Level 1 Diagnoses Current use of anticoagulant therapy Z79.01 Assessment & Plan Assessment & Plan (1) Current use of anticoagulant therapy: Code(s): Z79.01 - [facility]FP (current) use of anticoagulants Category: Medical
== END 2024-04-22 12:15 | disposition home or self-care (01) ==
LOC: HO.ACS 11:37
PROVIDERS: PCP Internal Medicine; Visit Provider Internal Medicine
DX: Z79.01 Long term (current) use of anticoagulants (principal)

== ENCOUNTER → 2024-04-22 11:37 | Outpatient (BNVA) | payer OTHER, SELFPAY | PROVIDERS: PCP Internal Medicine; Visit Provider Internal Medicine | DX: I26.99 Other pulmonary embolism without acute cor pulmonale (principal); Z79.01 Long term (current) use of anticoagulants; Z51.81 Encounter for therapeutic drug level monitoring | CPT/HCPCS: 85610; 99211 ==

== ENCOUNTER 2024-04-30 10:36 | Outpatient (AMB) | payer OTHER, SELFPAY ==
--- NOTE | 2024-04-30 10:50 | MHC.OFFVISCO ---
Intake Intake Visit Reasons: Anticoagulation Allergies lisinopril [LISINOPRIL] Allergy (Severe, Verified 04/30/24 10:38) ANGIOEDEMA dapagliflozin [From FARXIGA] Allergy (Intermediate, Verified 04/30/24 10:38) HIVES liraglutide [From VICTOZA] Allergy (Intermediate, Verified 04/30/24 10:38) RASH metformin [METFORMIN] Allergy (Intermediate, Verified 04/30/24 10:38) GI UPSET erythromycin base [ERYTHROMYCIN BASE] Allergy (Unknown, Verified 04/30/24 10:38) UNKNOWN amitriptyline [AMITRIPTYLINE] Adverse Reaction (Intermediate, Verified 04/30/24 10:38) DRUGGED FEELING Medication List - Last Reconciled 04/30/24 by Francine Mitchell RN acetaminophen ER 650 mg PO Q6H PRN albuterol sulfate 2.5 mg inhalation Q4H PRN albuterol sulfate 90 mcg/actuation (Ventolin HFA) 2 puffs inhalation Q6H PRN atorvastatin 20 mg PO BEDTIME blood sugar diagnostic (FreeStyle Lite Strips) As directed ferrous gluconate 324 mg PO DAILY furosemide (Lasix) 20 mg PO DAILY 3 days glimepiride 4 mg PO BEDTIME levothyroxine 50 mcg PO DAILY metformin 1,000 mg PO BID nebulizers As directed Oxygen Home Use As directed sertraline 100 mg PO DAILY sildenafil (pulm.hypertension) 20 mg PO TID 30 days tirzepatide (Mounjaro) 5 mg (0.5 mL) subcut QWEEK warfarin 5 mg See Protocol PO DAILY 30 days Nursing Note Pt to ACS with potable O2. Slight SOB w/exertion INR: 2.5 in therapeutic range of 2-3 Medications and supplements reviewed No changes in health, diet, medications, or supplements, Denies any signs and symptoms of bleeding or bruising or clotting. Bleeding, bruising, clotting discussed Nutritional guidance given Dose: 2.5mg X 5 days and 5mg X 2 days F/U INR: 1 week Patient verbalizes understanding of instructions given Anti-Coag Initial Assessment Social Hx Patient Tobacco Use Status: Never used Tobacco alcohol intake: former Alcohol intake frequency: does not drink Cardiovascular Hx: HTN Lung Disease HX: DVT/PE Endocrine Hx: Thyroid Disease Musculoskeletal Hx: Arthritis Blood Disorder Hx: Anemia and Hyperlipidemia GI Hx: Ulcers, Diverticulosis and Hemorrhoids Hx: Other Neurological Hx: Migraines/Headaches and Other Cancer HX: No Psych. Illness/Depression: Yes Coding Level of Care Code Est Patient Level 1 Diagnoses Current use of anticoagulant therapy Z79.01 Results AMB INR Fingerstick AMB INR Fingerstick 2.5 Last Edit by Francine Mitchell RN on 04/30/24 10:46 INTERFACE DELAY Assessment & Plan Assessment & Plan (1) Current use of anticoagulant therapy: Code(s): Z79.01 - detention (current) use of anticoagulants Category: Medical
[2024-04-30 10:51] LABS: Prothrombin Time Whole Bld POC 29.4 sec (11.1-13.5); ~PT, ~INR - Anti Coag Clinic 2.5 (0.9-1.1)
== END 2024-04-30 10:52 | disposition home or self-care (01) ==
LOC: HO.ACS 10:36
PROVIDERS: PCP Internal Medicine; Visit Provider Internal Medicine
DX: Z79.01 Long term (current) use of anticoagulants (principal)

== ENCOUNTER → 2024-04-30 10:36 | Outpatient (BNVA) | payer OTHER, SELFPAY | PROVIDERS: PCP Internal Medicine; Visit Provider Internal Medicine | DX: I26.99 Other pulmonary embolism without acute cor pulmonale (principal); Z79.01 Long term (current) use of anticoagulants; Z51.81 Encounter for therapeutic drug level monitoring | CPT/HCPCS: 85610; 99211 ==

== ENCOUNTER 2024-05-07 10:35 | Outpatient (AMB) | payer OTHER, SELFPAY ==
--- NOTE | 2024-05-07 10:35 | HO.NEPHOV ---
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 Allergies lisinopril [LISINOPRIL] Allergy (Severe, Verified 05/07/24 11:04) ANGIOEDEMA dapagliflozin [From FARXIGA] Allergy (Intermediate, Verified 05/07/24 11:04) HIVES liraglutide [From VICTOZA] Allergy (Intermediate, Verified 05/07/24 11:04) RASH metformin [METFORMIN] Allergy (Intermediate, Verified 05/07/24 11:04) GI UPSET erythromycin base [ERYTHROMYCIN BASE] Allergy (Unknown, Verified 05/07/24 11:04) UNKNOWN amitriptyline [AMITRIPTYLINE] Adverse Reaction (Intermediate, Verified 05/07/24 11:04) DRUGGED FEELING Medication List - Last Reconciled 05/07/24 by Franklyn Skinner MD acetaminophen ER 650 mg PO Q6H PRN albuterol sulfate 2.5 mg inhalation Q4H PRN albuterol sulfate 90 mcg/actuation (Ventolin HFA) 2 puffs inhalation Q6H PRN atorvastatin 20 mg PO BEDTIME blood sugar diagnostic (FreeStyle Lite Strips) As directed ferrous gluconate 324 mg PO DAILY furosemide (Lasix) 20 mg PO DAILY 3 days glimepiride 4 mg PO ONCE levothyroxine 50 mcg PO DAILY metformin 1,000 mg PO BID nebulizers As directed Oxygen Home Use As directed sertraline 100 mg PO DAILY sildenafil (pulm.hypertension) 20 mg PO TID 30 days tirzepatide (Mounjaro) 5 mg (0.5 mL) subcut QWEEK warfarin 5 mg See Protocol PO DAILY 30 days HPI Comments Details: Domonique is a pleasant 48-year-old woman with a history of diabetes mellitus and hypertension with mild CKD. Baseline serum creatinine is around 1.1 mg/dL with EGFR of about 50-60 mL/minute. He recently there has been a bump in the serum creatinine and as of December 2023 creatinine was 1.7 with EGFR of 30 mL/minute and she has been referred for further evaluation. In June 2023 and prior to that she had no significant microalbuminuria. Previous urinalysis was benign. She has had no imaging studies for the kidney She has a complicated history including COVID-19 infection in October of 2020 which was complicated by pulmonary embolism. She has undergone angioplasty at [facility]. She is on anticoagulation. She is being followed by Dr. Land from Pulmonary. She has been diagnosed with factor 5 laden deficiency She has chronic anemia. She is on iron supplementation but there has been no significant improvement in hemoglobin. She has microcytic picture Upon reviewing the labs she has had thrombocytopenia since April 2023 and the recent platelet count is [id number]. Domonique has no hemoptysis. No chest pain. No gross hematuria. No edema. No new rash or petechia. No joint pains. No nausea vomiting no diarrhea constipation no weight loss. Mother at age of 61 and she had kidney disease. She has 3 brothers no family history of any connective tissue disease or end stage renal disease She has 1 daughter age 22 and normal delivery. 01/15/24 She was in the ER last night for pharyngitis. From renal standpoint she is doing very well. She was found to have iron deficiency 02/04 Cr is down to 1.4 close to baseline Off Valsartan HCT 05/07/24 Doing well. Seen by Rheum- work up in progress Off Valsartan HCT since January 2024 Had CoVID in March 2024 still has some cough PFSH Medical History Pulmonary hypertension Hypercoagulable state Thyroid cancer Chronic thromboembolic disease Lower extremity edema Multinodular thyroid Family history of deep venous thrombosis Pleuritic chest pain Pulmonary emboli Dyspnea Dyspareunia in female Anemia Obstructive sleep apnea Morbid obesity History of COVID-19 (~2020) History of pulmonary embolus (PE) (~2020) Anxiety Chronic headaches Dyspnea on exertion Diabetes type 2, controlled Hypothyroid HTN (hypertension) Hyperlipidemia Surgical History History of angioplasty History of surgery on right wrist History of foot surgery History of tubal ligation History of carpal tunnel surgery History of ERCP History of laparoscopic cholecystectomy History of surgery Family History Father Myocardial infarction COPD (chronic obstructive pulmonary disease) Mother COPD (chronic obstructive pulmonary disease) Brother Colitis Social History Housing: House Alcohol intake: former Comment: pt d/c home Patient Tobacco Use Status: Never used Tobacco service: No Current occupational status: employed 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, 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 Current occupational exposures/hazards: No Review of Systems Const Denies chills, Denies fatigue, Denies fever(s), Denies frequent falls, Denies weakness, Denies weight gain and Denies weight loss ENT Denies dizziness Card Denies chest pain, Denies leg edema, Denies lightheadedness, Denies palpitations, Denies dyspnea, Denies dyspnea on exertion, Denies orthopnea and Denies other (loss of consciousness) Resp Denies cough, Denies dyspnea and Denies dyspnea on exertion GI Denies hematochezia and Denies change in stool character Musc Denies abnormal gait, Denies muscle weakness, Denies numbness, Denies radiating pain into limb and Denies tingling Neuro Denies abnormal gait, Denies dizziness, Denies frequent falls, Denies numbness, Denies tingling and Denies weakness Endo Denies fatigue and Denies palpitations Physical Exam Vital Signs: Last Vital Signs Pulse 83 05/07/24 10:36 BP 118/72 05/07/24 10:36 BMI result Body Mass Index 43.8 Results AMB INR Fingerstick AMB INR Fingerstick 2.3 Last Edit by Francine Mitchell RN on 05/07/24 11:08 interface delay Results Reviewed Nephrology Results: No Data to Display Assessment & Plan Assessment & Plan (1) CKD (chronic kidney disease): Code(s): N18.9 - Chronic kidney disease, unspecified Category: Medical (2) Pulmonary hypertension: Code(s): I27.20 - Pulmonary hypertension, unspecified Category: Medical (3) T2DM (type 2 diabetes mellitus): Code(s): E11.9 - Type 2 diabetes mellitus without complications Category: Medical Qualifiers: Diabetes mellitus complication status: without complication Diabetes mellitus half-way insulin use: without intermodal customer service use Qualified Code(s): E11.9 - Type 2 diabetes mellitus without complications (4) Thyroid cancer: Code(s): C73 - Malignant neoplasm of thyroid gland Category: Medical (5) Thrombocytopenia: Code(s): D69.6 - Thrombocytopenia, unspecified Category: Medical Plan 48-year-old woman with a history of diabetes mellitus has acute kidney injury superimposed on chronic kidney disease. Underlying chronic kidney disease may be due to longstanding diabetes mellitus in a setting obesity and hypertension. The differential diagnosis for acute kidney injury is rather extensive. blood pressure was rather low and she was on a high dose of ARB and diuretic. She had component of hypoperfusion leading to LEXUS. After stopping VAlsartan HCT, Cr has improved! Obstructive uropathy ruled out based on renal ultrasound Underlying glomerulonephritis and interstitial disease seem less likely based on bland urine She has unexplained thrombocytopenia. Recommendations Continue to hold valsartan hydrochlorothiazide for now. Encouraged to continue avoiding NSAIDs and other nephrotoxins. Maintain adequate intake Urine sediments benign No evidence of AGN or AIN ANANDA positive DsANA negative C3/c4 low ANCA negative No MCGP Follow up with Rheumatology for further evaluation regarding positive ANANDA Blood pressure is acceptable Watch BP Low salt diet She has significant iron deficiency. Keep on Iron QD Coding Level of Care Code Est Pt Level 4 (21091) Diagnoses CKD (chronic kidney disease) N18.9 Pulmonary hypertension I27.20 Type 2 diabetes mellitus without complication, without long-term current use of insulin E11.9 Diabetes mellitus complication status: without complication Diabetes mellitus intermodal customer service insulin use: without half-way use Thyroid cancer C73 Thrombocytopenia D69.6
[2024-05-07 10:36] VITALS: BP 118/72; PULSE 83; BMI 43.8
== END 2024-05-07 10:49 | disposition home or self-care (01) ==
PROVIDERS: PCP Internal Medicine; Visit Provider Internal Medicine Hypertension Specialist
DX: N18.9 Chronic kidney disease, unspecified (principal); I27.20 Pulmonary hypertension, unspecified; E11.9 Type 2 diabetes mellitus without complications; C73 Malignant neoplasm of thyroid gland; D69.6 Thrombocytopenia, unspecified
CPT/HCPCS: 99214

== ENCOUNTER → 2024-05-07 10:35 | Outpatient (BNVA) | payer OTHER, SELFPAY | PROVIDERS: PCP Internal Medicine; Visit Provider Internal Medicine Hypertension Specialist | DX: E11.22 Type 2 diabetes mellitus with diabetic chronic kidney disease (principal); I12.9 Hypertensive chronic kidney disease with stage 1 through stage 4 chronic kidney disease, or unspecified chronic kidney disease; I27.20 Pulmonary hypertension, unspecified; N18.9 Chronic kidney disease, unspecified; C73 Malignant neoplasm of thyroid gland; D69.6 Thrombocytopenia, unspecified; I26.99 Other pulmonary embolism without acute cor pulmonale; Z51.81 Encounter for therapeutic drug level monitoring; Z79.01 Long term (current) use of anticoagulants | CPT/HCPCS: 85610; 99211; 99212 ==

== ENCOUNTER 2024-05-07 11:00 | Outpatient (AMB) | payer OTHER, SELFPAY ==
[2024-05-07 11:08] LABS: Prothrombin Time Whole Bld POC 27.5 sec (11.1-13.5); ~PT, ~INR - Anti Coag Clinic 2.3 (0.9-1.1)
--- NOTE | 2024-05-07 11:19 | MHC.OFFVISCO ---
Intake Intake Visit Reasons: Anticoagulation Allergies lisinopril [LISINOPRIL] Allergy (Severe, Verified 05/07/24 11:04) ANGIOEDEMA dapagliflozin [From FARXIGA] Allergy (Intermediate, Verified 05/07/24 11:04) HIVES liraglutide [From VICTOZA] Allergy (Intermediate, Verified 05/07/24 11:04) RASH metformin [METFORMIN] Allergy (Intermediate, Verified 05/07/24 11:04) GI UPSET erythromycin base [ERYTHROMYCIN BASE] Allergy (Unknown, Verified 05/07/24 11:04) UNKNOWN amitriptyline [AMITRIPTYLINE] Adverse Reaction (Intermediate, Verified 05/07/24 11:04) DRUGGED FEELING Medication List - Last Reconciled 05/07/24 by Francine Mitchell RN acetaminophen ER 650 mg PO Q6H PRN albuterol sulfate 2.5 mg inhalation Q4H PRN albuterol sulfate 90 mcg/actuation (Ventolin HFA) 2 puffs inhalation Q6H PRN atorvastatin 20 mg PO BEDTIME blood sugar diagnostic (FreeStyle Lite Strips) As directed ferrous gluconate 324 mg PO DAILY furosemide (Lasix) 20 mg PO DAILY 3 days glimepiride 4 mg PO ONCE levothyroxine 50 mcg PO DAILY metformin 1,000 mg PO BID nebulizers As directed Oxygen Home Use As directed sertraline 100 mg PO DAILY sildenafil (pulm.hypertension) 20 mg PO TID 30 days tirzepatide (Mounjaro) 5 mg (0.5 mL) subcut QWEEK warfarin 5 mg See Protocol PO DAILY 30 days Nursing Note INR: 2.3 in therapeutic range of 2-3 Medications and supplements reviewed No changes in health, diet, medications, or supplements, Denies any signs and symptoms of bleeding or bruising or clotting. Bleeding, bruising, clotting discussed Nutritional guidance given Dose: 2.5mg X 5 days and 5mg X 2 days F/U INR: 2 weeks Patient verbalizes understanding of instructions given Anti-Coag Initial Assessment Social Hx Patient Tobacco Use Status: Never used Tobacco alcohol intake: former Alcohol intake frequency: does not drink Cardiovascular Hx: HTN Lung Disease HX: DVT/PE Endocrine Hx: Thyroid Disease Musculoskeletal Hx: Arthritis Blood Disorder Hx: Anemia and Hyperlipidemia GI Hx: Ulcers, Diverticulosis and Hemorrhoids Hx: Other Neurological Hx: Migraines/Headaches and Other Cancer HX: No Psych. 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
== END 2024-05-07 11:22 | disposition home or self-care (01) ==
LOC: HO.ACS 11:00
PROVIDERS: PCP Internal Medicine; Visit Provider Internal Medicine
DX: Z79.01 Long term (current) use of anticoagulants (principal)

== ENCOUNTER 2024-05-24 08:32 | Outpatient (AMB) | payer OTHER, SELFPAY ==
--- NOTE | 2024-05-24 08:44 | MHC.OFFVISCO ---
Intake Intake Visit Reasons: Anticoagulation Allergies lisinopril [LISINOPRIL] Allergy (Severe, Verified 05/24/24 08:38) ANGIOEDEMA dapagliflozin [From FARXIGA] Allergy (Intermediate, Verified 05/24/24 08:38) HIVES liraglutide [From VICTOZA] Allergy (Intermediate, Verified 05/24/24 08:38) RASH metformin [METFORMIN] Allergy (Intermediate, Verified 05/24/24 08:38) GI UPSET erythromycin base [ERYTHROMYCIN BASE] Allergy (Unknown, Verified 05/24/24 08:38) UNKNOWN amitriptyline [AMITRIPTYLINE] Adverse Reaction (Intermediate, Verified 05/24/24 08:38) DRUGGED FEELING Medication List - Last Reconciled 05/24/24 by Linh Mcnulty RN acetaminophen ER 650 mg PO Q6H PRN albuterol sulfate 2.5 mg inhalation Q4H PRN albuterol sulfate 90 mcg/actuation (Ventolin HFA) 2 puffs inhalation Q6H PRN atorvastatin 20 mg PO BEDTIME blood sugar diagnostic (FreeStyle Lite Strips) As directed ferrous gluconate 324 mg PO DAILY furosemide (Lasix) 20 mg PO DAILY 3 days glimepiride 4 mg PO ONCE levothyroxine 50 mcg PO DAILY metformin 1,000 mg PO BID nebulizers As directed Oxygen Home Use As directed sertraline 100 mg PO DAILY sildenafil (pulm.hypertension) 20 mg PO TID 30 days tirzepatide (Mounjaro) 5 mg (0.5 mL) subcut QWEEK warfarin 5 mg See Protocol PO DAILY 30 days Nursing Note INR 4.3-? out of therapeutic range of 2-3 Medications and supplements reviewed Patient status: no c.o, on cont oxygen, pt unsure why inr is elev Medications or supplements: no changes, flu shot today- pt instructed to notify pharmacist of inr prior to flu shot Diet: same Denies any signs and symptoms of bleeding or clotting or unusual bruising Bleeding, bruising, clotting discussed Nutritional guidance given: eat cooked greens to lower Dose: no warfarin today then cont 5mg x 2, 2.5mg x 5 F/U INR Date : 1 week Patient verbalizing understanding of instructions given. Anti-Coag Initial Assessment Social Hx Patient Tobacco Use Status: Never used Tobacco alcohol intake: former Alcohol intake frequency: does not drink Cardiovascular Hx: HTN Lung Disease HX: DVT/PE Endocrine Hx: Thyroid Disease Musculoskeletal Hx: Arthritis Blood Disorder Hx: Anemia and Hyperlipidemia GI Hx: Ulcers, Diverticulosis and Hemorrhoids Hx: Other Neurological Hx: Migraines/Headaches and Other Cancer HX: No Psych. Illness/Depression: Yes Coding Level of Care Code Est Patient Level 1 Diagnoses Current use of anticoagulant therapy Z79.01 Assessment & Plan Assessment & Plan (1) Current use of anticoagulant therapy: Code(s): Z79.01 - prison (current) use of anticoagulants Category: Medical
[2024-05-24 08:45] LABS: ~PT, ~INR - Anti Coag Clinic 4.3 (0.9-1.1)
== END 2024-05-24 08:51 | disposition home or self-care (01) ==
LOC: HO.ACS 08:32
PROVIDERS: PCP Internal Medicine; Visit Provider Internal Medicine
DX: Z79.01 Long term (current) use of anticoagulants (principal)

== ENCOUNTER → 2024-05-24 08:32 | Outpatient (BNVA) | payer OTHER, SELFPAY | PROVIDERS: PCP Internal Medicine; Visit Provider Internal Medicine | DX: I26.99 Other pulmonary embolism without acute cor pulmonale (principal); Z79.01 Long term (current) use of anticoagulants; Z51.81 Encounter for therapeutic drug level monitoring | CPT/HCPCS: 85610; 99211 ==

== ENCOUNTER 2024-06-01 13:21 | Outpatient (AMB) | payer OTHER, SELFPAY ==
[2024-06-01 13:33] LABS: Prothrombin Time Whole Bld POC 45.9 sec (11.1-13.5); ~PT, ~INR - Anti Coag Clinic 3.8 (0.9-1.1)
--- NOTE | 2024-06-01 13:45 | MHC.OFFVISCO ---
Intake Intake Visit Reasons: Anticoagulation Allergies lisinopril [LISINOPRIL] Allergy (Severe, Verified 06/01/24 13:27) ANGIOEDEMA dapagliflozin [From FARXIGA] Allergy (Intermediate, Verified 06/01/24 13:27) HIVES liraglutide [From VICTOZA] Allergy (Intermediate, Verified 06/01/24 13:27) RASH metformin [METFORMIN] Allergy (Intermediate, Verified 06/01/24 13:27) GI UPSET erythromycin base [ERYTHROMYCIN BASE] Allergy (Unknown, Verified 06/01/24 13:27) UNKNOWN amitriptyline [AMITRIPTYLINE] Adverse Reaction (Intermediate, Verified 06/01/24 13:27) DRUGGED FEELING Medication List - Last Reconciled 06/01/24 by Francine Mitchell RN acetaminophen ER 650 mg PO Q6H PRN albuterol sulfate 2.5 mg inhalation Q4H PRN albuterol sulfate 90 mcg/actuation (Ventolin HFA) 2 puffs inhalation Q6H PRN atorvastatin 20 mg PO BEDTIME blood sugar diagnostic (FreeStyle Lite Strips) As directed ferrous gluconate 324 mg PO DAILY furosemide (Lasix) 20 mg PO DAILY 3 days glimepiride 4 mg PO ONCE levothyroxine 50 mcg PO DAILY metformin 1,000 mg PO BID nebulizers As directed Oxygen Home Use As directed sertraline 100 mg PO DAILY sildenafil (pulm.hypertension) 20 mg PO TID 30 days tirzepatide (Mounjaro) 5 mg (0.5 mL) subcut QWEEK warfarin 5 mg See Protocol PO DAILY 30 days Nursing Note INR 3.8?out of therapeutic range of 2-3 Medications and supplements reviewed Patient status: states she doesn't feel well yesterday and today. States she had a headache yesterday and chills. No cough. Did not have her portable oxygen with her but states she could use it. No obvious SOB. Will go to ER if symptoms worsen. Medications or supplements: no changes Diet: usual diet Denies any signs and symptoms of bleeding or clotting or unusual bruising Bleeding, bruising, clotting discussed Nutritional guidance given: Dose: hold today's dose of 2.5mg and then 2.5mg, 5mg and then hold the next day of 2.5mg Then pt to resume usual dosing of 2.5mg X 5 days and 5mg X 2 day F/U INR Date : ?06/11/24 Patient verbalizing understanding of instructions given. Anti-Coag Initial Assessment Social Hx Patient Tobacco Use Status: Never used Tobacco alcohol intake: former Alcohol intake frequency: does not drink Cardiovascular Hx: HTN Lung Disease HX: DVT/PE Endocrine Hx: Thyroid Disease Musculoskeletal Hx: Arthritis Blood Disorder Hx: Anemia and Hyperlipidemia GI Hx: Ulcers, Diverticulosis and Hemorrhoids Hx: Other Neurological Hx: Migraines/Headaches and Other Cancer HX: No Psych. Illness/Depression: Yes Coding Level of Care Code Est Patient Level 1 Diagnoses Current use of anticoagulant therapy Z79.01 Results AMB INR Fingerstick AMB INR Fingerstick 3.8 Last Edit by Francine Mitchell RN on 06/01/24 13:34 interface delay Assessment & Plan Assessment & Plan (1) Current use of anticoagulant therapy: Code(s): Z79.01 - assisted (current) use of anticoagulants Category: Medical
== END 2024-06-01 13:51 | disposition home or self-care (01) ==
LOC: HO.ACS 13:21
PROVIDERS: PCP Internal Medicine; Visit Provider Internal Medicine
DX: Z79.01 Long term (current) use of anticoagulants (principal)

== ENCOUNTER → 2024-06-01 13:21 | Outpatient (BNVA) | payer OTHER, SELFPAY | PROVIDERS: PCP Internal Medicine; Visit Provider Internal Medicine | DX: I26.99 Other pulmonary embolism without acute cor pulmonale (principal); Z79.01 Long term (current) use of anticoagulants; Z51.81 Encounter for therapeutic drug level monitoring | CPT/HCPCS: 85610; 99211 ==

== ENCOUNTER 2024-06-02 08:48 | Emergency (ER) | payer OTHER, SELFPAY ==
--- NOTE | ~2024-06-02 | XR_ITS ---
EXAMINATION: XR CHEST CLINICAL INFORMATION: Chest pain COMPARISON: 04/05/2024 TECHNIQUE: 2 views of the chest were obtained. FINDINGS: Slightly elevated or tented left hemidiaphragm with overlying opacity are unchanged and likely reflective of chronic scarring. Right lung clear. Heart and pulmonary vessels normal. XR/XR chest 2V IMPRESSION: Chronic changes of the left base. No active disease. Electronically signed by: Leroy Emery MD 06/02/2024 10:12 AM EDT
[2024-06-02 08:53] VITALS: BP 156/83; PULSE 120; RESP 32; TEMP 36.6; O2SAT 93; BMI 43.6
--- NOTE | 2024-06-02 08:53 | ECG_ITS ---
Test Reason : chest pain Blood Pressure : / mmHG Vent. Rate : 101 BPM Atrial Rate : 101 BPM P-R Int : 160 ms QRS Dur : 088 ms QT Int : 346 ms P-R-T Axes : 036 -18 019 degrees QTc Int : 448 ms Sinus tachycardia Otherwise normal ECG When compared with ECG of 05-APR-2024 19:02, No significant change was found Referred By: Generic ED Physician Electronically Signed By:SUKHDEV PENNINGTON
[2024-06-02 09:09] LABS: MANUAL DIFF FLAG NO
[2024-06-02 09:13] LABS: Basophils Absolute Auto 0.1 X10*3/uL (0.0-0.2); Basophils Percent Auto 0.5 % (0-2); Eosinophils Absolute Auto 0.1 X10*3/uL (0.0-0.4); Eosinophils Percent Auto 0.7 % (0-4); Hematocrit 30.9 % (37.0-47.0); Hemoglobin 9.6 g/dl (12.0-16.0); Imm Gran Abs Auto 0.03 X10*3/uL (0.00-0.03); Imm Gran Pct Auto 0.2 % (0.0-0.4); Lymphocytes Absolute Auto 1.6 X10*3/uL (1.2-4.9); Mean Corpuscular HGB Conc 31.1 g/dl (31.0-35.0); Mean Corpuscular Volume 67.6 fL (80.0-98.0); Monocytes Absolute Auto 1.1 X10*3/uL (0.1-1.2); Monocytes Percent Auto 8.7 % (2-11); Neutrophils Absolute Auto 10.2 x10*3/uL (2.0-8.3); Neutrophils Percent Auto 77.9 % (45-73); Platelet Count 200 X10*3/uL (160-400); Red Blood Count 4.57 X10*6/uL (4.20-5.50); Red Cell Distribution Width 18.1 % (11.0-16.0); White Blood Count 13.1 X10*3/uL (4.8-10.8)
[2024-06-02 09:16] LABS: INTERNATIONAL NORM RATIO 3.5 (0.9-1.1); Prothrombin Time 40.8 SEC (10.9-12.4)
[2024-06-02 09:25] LABS: Anion Gap 14 (12-20); Blood Urea Nitrogen 9 mg/dL (9-16); Calcium 9.1 mg/dL (8.4-10.2); Carbon Dioxide 22 mmol/L (22-29); Chloride 107 mmol/L (96-108); Estimated Glomerular Filt Rate 49; Glucose Random 120 mg/dL (60-115); Potassium 3.6 mmol/L (3.3-5.1); Sodium 139 mmol/L (135-145)
[2024-06-02 09:32] LABS: B Type Natriuretic Peptide 24 pg/mL (<100)
[2024-06-02 09:33] LABS: Troponin-I High Sensitivity 3.2 ng/L (<3.5-17.0)
[2024-06-02 09:51] LABS: Influenza A PCR NEGATIVE (Negative); Influenza B PCR NEGATIVE (Negative); Resp Syncy Virus RNA Qual PCR NEGATIVE (Negative); SARS COV2 PCR INHOUSE NEGATIVE (Negative)
--- NOTE | 2024-06-02 12:47 | ED_ITS ---
HPI - General Adult General Chief complaint: Upper Respiratory Symptoms Stated complaint: [id number] Time Seen by Provider: 06/02/24 12:47 Source: patient Mode of arrival: ambulatory Limitations: no limitations History of Present Illness HPI narrative: This is a 48-year-old woman with a past medical history of hypertension, [id number] diabetes mellitus, hypothyroidism, mixed hyperlipidemia, PE (on warfarin) who presents for evaluation of cough for the last 2 days. Patient states that she has been sick with a dry cough, congestion for the last 2 days. She states that she had a fever last night and this morning. She states no hemoptysis. She states intermittent chest pain and difficulty breathing. She states chest pain associated with coughing. She states no exertional symptoms. She states that she did have her INR checked yesterday and states that it was elevated to 3.8. She states that she was instructed to skip her dose yesterday evening and skip her dose on Friday of this week as well. She states that she is also told to increase her consumption greens. She states no trauma or falls. She states no associated back pain or abdominal pain. She states yesterday she felt a little nauseous. She states no palpitations or syncope. She states no changes in bowel habits or urinary symptoms. Related Data Home Medications ?Medication ?Instructions ?Recorded ?Confirmed atorvastatin 20 mg tablet 20 mg PO BEDTIME 09/14/20 06/01/24 [facility] 02/26/22 06/01/24 Lite Strips) albuterol sulfate 2.5 mg/3 mL 2.5 mg inhalation Q4H PRN Wheezing 01/31/23 06/01/24 (0.083 %) solution for nebulization acetaminophen 650 mg 650 mg PO Q6H PRN pain 03/03/23 06/01/24 tablet,extended release Oxygen Home Use 04/11/23 06/01/24 metformin 1,000 mg tablet 1,000 mg PO BID 06/02/23 06/01/24 nebulizers 07/23/23 06/01/24 levothyroxine 50 mcg tablet 50 mcg PO DAILY 01/08/24 06/01/24 ferrous gluconate 324 mg (38 mg 324 mg PO DAILY 04/22/24 06/01/24 iron) tablet sertraline 100 mg tablet 100 mg PO DAILY 04/22/24 06/01/24 glimepiride 4 mg tablet 4 mg PO ONCE 05/07/24 06/01/24 Previous Rx's ?Medication ?Instructions ?Recorded albuterol sulfate 90 mcg/actuation 2 puff inhalation Q6H PRN for 11/17/23 aerosol inhaler (Ventolin HFA) wheezing #18 ea sildenafil (pulm.hypertension) 20 20 mg PO TID 30 days #90 tabs 12/18/23 mg tablet furosemide 20 mg tablet (Lasix) 20 mg PO DAILY 3 days #3 tabs 03/09/24 warfarin 5 mg tablet 5 mg PO DAILY 30 days #30 tabs 03/10/24 tirzepatide 5 mg/0.5 mL 5 mg (0.5 mL) subcut QWEEK #2 mL 03/24/24 subcutaneous pen injector (Mounjaro) Allergies Allergy/AdvReac Type Severity Reaction Status Date / Time lisinopril [LISINOPRIL] Allergy Severe ANGIOEDEMA Verified 06/02/24 08:55 dapagliflozin [From FARXIGA] Allergy Intermediate HIVES Verified 06/02/24 08:55 liraglutide [From VICTOZA] Allergy Intermediate RASH Verified 06/02/24 08:55 metformin [METFORMIN] Allergy Intermediate GI UPSET Verified 06/02/24 08:55 erythromycin base Allergy Unknown UNKNOWN Verified 06/02/24 08:55 [ERYTHROMYCIN BASE] amitriptyline [AMITRIPTYLINE] AdvReac Intermediate DRUGGED Verified 06/02/24 08:55 FEELING Review of Systems 2 Review of Systems: ROS as per HPI [facility] Past Medical History Medical History Pulmonary hypertension Hypercoagulable state Thyroid cancer Chronic thromboembolic disease Lower extremity edema Multinodular thyroid Family history of deep venous thrombosis Pleuritic chest pain Pulmonary emboli Dyspnea Dyspareunia in female Anemia Obstructive sleep apnea Morbid obesity History of COVID-19 (~2020) History of pulmonary embolus (PE) (~2020) Anxiety Chronic headaches Dyspnea on exertion Diabetes type 2, controlled Hypothyroid HTN (hypertension) Hyperlipidemia Surgical History History of angioplasty History of surgery on right wrist History of foot surgery History of tubal ligation History of carpal tunnel surgery History of ERCP History of laparoscopic cholecystectomy History of surgery Family History Family History Father Myocardial infarction COPD (chronic obstructive pulmonary disease) Mother COPD (chronic obstructive pulmonary disease) Brother Colitis Social History Social History Housing: House Alcohol intake: former Comment: pt d/c home Patient Tobacco Use Status: Never used Tobacco Advance Directives: No Advance Directives Information Provided: No Do you have a plan to hurt others: No Plan service: No Current occupational status: employed 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 Patient is afebrile and hemodynamically stable on room air. Of note, patient is initially tachycardic on arrival, but this resolves with no intervention prior to discharge. This may be secondary to pain or anxiety regarding your visit to the emergency room. She was offered analgesia with Tylenol, but she politely declines. Exam is benign and reassuring. I reviewed and interpreted labs, which are noncontributory. I reviewed and interpreted EKG, which is unremarkable for any acute or ischemic findings. I reviewed diagnostic imaging studies as below, which are unremarkable for any acute findings and demonstrates no evidence of pneumonia. Patient has tested negative for COVID-19, influenza and RSV. On re-examination, patient is well-appearing and in no acute distress. Suspect patient's symptoms are secondary to viral URI and potentially component of pleuritis as well. Patient is counseled extensively on return precautions regarding symptoms to monitor and may be concerning for pneumonia requiring prompt return to the emergency room for re-evaluation.?There is no indication for further emergent evaluation in this otherwise well-appearing patient as above. ?Patient is provided written and verbal instructions, educational materials, recommendations for outpatient follow-up, strict return precautions and teach back is performed. ?Patient states understanding and agreement with plan of care. ?Patient is discharged home in stable and improved condition. Admission/Observation Consideration of admission/observation: Escalation of care including admission/observation considered Lab Data MDM Lab Attestation statement: I reviewed the patient's lab results. I independently reviewed and interpreted the patient's labs, which are notable for leukocytosis with white blood cell count of 13.1, stable anemia with hemoglobin 9.6, INR 3.5, troponin reassuring at 3.2 effectively ruling out ACS, BNP reassuring at 24. Patient has tested negative for COVID-19, influenza and RSV. 06/02/24 09:04 06/02/24 09:04 Labs: Lab Results 06/02/24 Range/Units 09:04 WBC 13.1 H (4.8-10.8) X10*3/uL RBC 4.57 (4.20-5.50) X10*6/uL Hgb 9.6 L (12.0-16.0) g/dl Hct 30.9 L (37.0-47.0) % MCV 67.6 L (80.0-98.0) fL MCH 21.0 L (27.0-33.0) pg MCHC 31.1 (31.0-35.0) g/dl RDW 18.1 H (11.0-16.0) % Plt Count 200 D (160-400) X10*3/uL MPV 11.0 (9.4-12.3) fL Immature Gran % (Auto) 0.2 (0.0-0.4) % Neut % (Auto) 77.9 H (45-73) % Lymph % (Auto) 12.0 L (20-40) % Taylor % (Auto) 8.7 (2-11) % Eos % (Auto) 0.7 (0-4) % Baso % (Auto) 0.5 (0-2) % Lymph # (Auto) 1.6 (1.2-4.9) X10*3/uL Taylor # (Auto) 1.1 (0.1-1.2) X10*3/uL Eos # (Auto) 0.1 (0.0-0.4) X10*3/uL Baso # (Auto) 0.1 (0.0-0.2) X10*3/uL Abs Immat Gran (auto) 0.03 (0.00-0.03) X10*3/uL Absolute Neuts (auto) 10.2 H (2.0-8.3) x10*3/uL Absolute Nucleated RBC 0.000 (0.0-0.012) X10*3/uL Nucleated RBC % (auto) 0.0 (0.0-0.2) /100WBC PT 40.8 H (10.9-12.4) SEC INR 3.5 H (0.9-1.1) Sodium 139 (135-145) mmol/L Potassium 3.6 (3.3-5.1) mmol/L Chloride 107 (96-108) mmol/L Carbon Dioxide 22 (22-29) mmol/L Anion Gap 14 (12-20) BUN 9 (9-16) mg/dL Creatinine 1.17 (0.5-1.4) mg/dL Estim Creat Clear Calc 75.0 Estimated GFR 49 Random Glucose 120 H (60-115) mg/dL Calcium 9.1 (8.4-10.2) mg/dL Troponin I High Sens 3.2 (<3.5-17.0) ng/L B-Natriuretic Peptide 24 (<100) pg/mL Influenza Type A (PCR) NEGATIVE (Negative) Influenza Type B (PCR) NEGATIVE (Negative) RSV RNA Qual (PCR) NEGATIVE (Negative) SARS-CoV-2 RNA (RT-PCR) NEGATIVE (Negative) Independent Interpretation I performed an independent interpretation of an: EKG and Plain X-Ray Interpretation: I independently reviewed and interpreted the patient's chest x-ray, which demonstrates no focal consolidation or pneumothorax I independently reviewed and interpreted patient's EKG, which demonstrates a sinus tachycardia at 101 beats per minute, UT 160, QRS 88, QTC 448, no STEMI (compared to prior EKG April 05, 2024 there are no diagnostic ischemic changes Radiology Impression Discussion of test interpretation with radiology: I have reviewed the radiologist's reading. Radiologist Impression: [address] [address] XRay Report Signed Patient: Domonique Bro MR#: [id number] : 1975 Acct:[id number] Age/Sex: 48 / F ADM Date: 06/02/24 Loc: HO.ED Attending Dr: Ordering Physician: Generic ED Physician Date of Service: 06/02/24 Procedure(s): XR chest 2V Accession Number(s): [id number] cc: Deena Workman MD; Generic ED Physician~ EXAMINATION: XR CHEST CLINICAL INFORMATION: Chest pain COMPARISON: 04/05/2024 TECHNIQUE: 2 views of the chest were obtained. FINDINGS: Slightly elevated or tented left hemidiaphragm with overlying opacity are unchanged and likely reflective of chronic scarring. Right lung clear. Heart and pulmonary vessels normal. XR/XR chest 2V IMPRESSION: Chronic changes of the left base. No active disease. Electronically signed by: Leroy Emery MD 06/02/2024 10:12 AM EDT RP Dictated By: Leroy Emery MD Signed By: <Electronically signed by Leroy Emery MD in OV> 06/02/24 1012 Discharge Plan Discharge Clinical Impression: Upper respiratory infection, viral Patient Disposition: Home, Self-Care Instructions: Upper Respiratory Infection (ED) Additional Instructions: You were seen and evaluated in the emergency room. Your vital signs were normal and you did not have fever. ? Your blood work, EKG and chest x-ray were reassuring. Your x-ray did not show any evidence of pneumonia. Your INR was elevated at 3.5. As we discussed, please continue with your plan outlined by your INR clinic to skip a dose on Friday and then follow up with them to have your INR checked again next week. You tested negative for COVID-19, influenza and RSV. Please take 1000 mg Tylenol every 8 hours as needed for fever or pain. Please follow-up with your primary care doctor in the next 5-7 days. ? Please return to the emergency room if you develop any worsening symptoms including, but not limited to fever, chest pain or difficulty breathing. ? Prescriptions: No Action albuterol sulfate [Ventolin HFA] 90 mcg/actuation HFA aerosol inhaler 2 puff inhalation Q6H PRN (Reason: for wheezing) Qty: 18 12RF sildenafil (pulm.hypertension) 20 mg tablet 20 mg PO TID 30 Days Qty: 90 6RF Rx Instructions: administer doses at least 4-6 hours apart warfarin 5 mg tablet 5 mg PO DAILY 30 Days Qty: 30 2RF Protocol: Dose Management Condition: Friday (Week One) Dose/Route: 2.5 mg Instruction: 0.5 x 5 mg tablets Condition: Friday Dose/Route: 5 mg Instruction: 1 x 5 mg tablet Condition: Friday Dose/Route: 0 mg Instruction: 0 tablets Condition: Friday Dose/Route: 2.5 mg Instruction: 0.5 x 5 mg tablets Condition: Dose/Route: 5 mg Instruction: 1 x 5 mg tablet Condition: Friday Dose/Route: 0 mg Instruction: 0 tablets Condition: Friday Dose/Route: 2.5 mg Instruction: 0.5 x 5 mg tablets Condition: Friday (Week Two) Dose/Route: 2.5 mg Instruction: 0.5 x 5 mg tablets Condition: Friday Dose/Route: 5 mg Instruction: 1 x 5 mg tablet Condition: Friday Dose/Route: 2.5 mg Instruction: 0.5 x 5 mg tablets Condition: Friday Dose/Route: 2.5 mg Instruction: 0.5 x 5 mg tablets Condition: Dose/Route: 5 mg Instruction: 1 x 5 mg tablet Condition: Friday Dose/Route: 2.5 mg Instruction: 0.5 x 5 mg tablets Condition: Friday Dose/Route: 2.5 mg Instruction: 0.5 x 5 mg tablets Protocol Text: Adjustment Start Date: Friday06/01/24 INR Value: 3.8 INR Date: 06/01/24 Recheck Date: 06/11/24 Mounjaro 5 mg/0.5 mL pen injector 5 mg subcut QWEEK Qty: 2 4RF atorvastatin 20 mg tablet 20 mg PO BEDTIME glimepiride 4 mg tablet 4 mg PO ONCE (DME) FreeStyle Lite Strips Strip See Rx Instructions Not Applicable BID Qty: 10 Rx Instructions: As directed levothyroxine 50 mcg tablet 50 mcg PO DAILY acetaminophen 650 mg tablet extended release 650 mg PO Q6H PRN (Reason: pain) (DME) nebulizers Misc See Rx Instructions .Route Rx Instructions: As directed albuterol sulfate 2.5 mg /3 mL (0.083 %) solution for nebulization 2.5 mg inhalation Q4H PRN (Reason: Wheezing) (DME) Oxygen Home Use Kit See Rx Instructions .Route Rx Instructions: As directed metformin 1,000 mg tablet 1,000 mg PO BID furosemide [Lasix] 20 mg tablet 20 mg PO DAILY 3 Days Qty: 3 0RF ferrous gluconate 324 mg (38 mg iron) tablet 324 mg PO DAILY sertraline 100 mg tablet 100 mg PO DAILY Print Language: Iraqi
[2024-06-02 13:06] VITALS: BP 145/99; PULSE 94; RESP 18; TEMP 36.8; O2SAT 97
[2024-06-02 13:15] VITALS: PULSE 96; O2SAT 99
[2024-06-02 13:19] VITALS: BP 145/99; PULSE 94; RESP 18; TEMP 36.8; O2SAT 97
== END 2024-06-02 13:20 | disposition home or self-care (01) ==
PROVIDERS: Emergency Provider Emergency Medicine; PCP Internal Medicine
DX: J06.9 Acute upper respiratory infection, unspecified (principal); R06.02 Shortness of breath; R05.9 Cough, unspecified; Z03.818 Encounter for observation for suspected exposure to other biological agents ruled out; E11.9 Type 2 diabetes mellitus without complications; I10 Essential (primary) hypertension; E78.2 Mixed hyperlipidemia; Z79.2 Long term (current) use of antibiotics; Z79.84 Long term (current) use of oral hypoglycemic drugs; Z79.899 Other long term (current) drug therapy; Z79.01 Long term (current) use of anticoagulants; Z86.711 Personal history of pulmonary embolism
CPT/HCPCS: 0241U; 71046; 80048; 83880; 84484; 85025; 85610; 93005; 99283; 99285

== ENCOUNTER 2024-06-10 10:31 | Outpatient (AMB) | payer OTHER, SELFPAY ==
[2024-06-10 10:59] LABS: Prothrombin Time Whole Bld POC 37.8 sec (11.1-13.5); ~PT, ~INR - Anti Coag Clinic 3.2 (0.9-1.1)
--- NOTE | 2024-06-10 11:10 | MHC.OFFVISCO ---
Intake Intake Visit Reasons: Anticoagulation Allergies lisinopril [LISINOPRIL] Allergy (Severe, Verified 06/10/24 10:54) ANGIOEDEMA dapagliflozin [From FARXIGA] Allergy (Intermediate, Verified 06/10/24 10:54) HIVES liraglutide [From VICTOZA] Allergy (Intermediate, Verified 06/10/24 10:54) RASH metformin [METFORMIN] Allergy (Intermediate, Verified 06/10/24 10:54) GI UPSET erythromycin base [ERYTHROMYCIN BASE] Allergy (Unknown, Verified 06/10/24 10:54) UNKNOWN amitriptyline [AMITRIPTYLINE] Adverse Reaction (Intermediate, Verified 06/10/24 10:54) DRUGGED FEELING Medication List - Last Reconciled 06/10/24 by Francine Mitchell RN acetaminophen ER 650 mg PO Q6H PRN albuterol sulfate 2.5 mg inhalation Q4H PRN albuterol sulfate 90 mcg/actuation (Ventolin HFA) 2 puffs inhalation Q6H PRN atorvastatin 20 mg PO BEDTIME blood sugar diagnostic (FreeStyle Lite Strips) As directed ferrous gluconate 324 mg PO DAILY furosemide (Lasix) 20 mg PO DAILY 3 days glimepiride 4 mg PO ONCE levothyroxine 50 mcg PO DAILY metformin 1,000 mg PO BID nebulizers As directed Oxygen Home Use As directed sertraline 100 mg PO DAILY sildenafil (pulm.hypertension) 20 mg PO TID 30 days tirzepatide (Mounjaro) 5 mg (0.5 mL) subcut QWEEK warfarin 5 mg See Protocol PO DAILY 30 days Nursing Note INR 3.2?out of therapeutic range of 2-3 Medications and supplements reviewed Patient status: s/p Resp Viral Infection, wearing oxygen by portable tank and nasal cannula. Was seen in ER last week and sent home with this diagnosis. At that time, pt was concerned she might have a Pulm emboli. She does state she feels better today. Admits to taking several doses of Tylenol over the past week. Medications or supplements: no changes Diet: usual diet for pt Denies any signs and symptoms of bleeding or clotting or unusual bruising Bleeding, bruising, clotting discussed Nutritional guidance given: to have a serving of greens today Dose: 2.5mg X 5 days and 5mg X 2 days F/U INR Date : 1 week?? Patient verbalizing understanding of instructions given. Anti-Coag Initial Assessment Social Hx Patient Tobacco Use Status: Never used Tobacco alcohol intake: former Alcohol intake frequency: does not drink Cardiovascular Hx: HTN Lung Disease HX: DVT/PE Endocrine Hx: Thyroid Disease Musculoskeletal Hx: Arthritis Blood Disorder Hx: Anemia and Hyperlipidemia GI Hx: Ulcers, Diverticulosis and Hemorrhoids Hx: Other Neurological Hx: Migraines/Headaches and Other Cancer HX: No Psych. Illness/Depression: Yes Coding Level of Care Code Est Patient Level 1 Diagnoses Current use of anticoagulant therapy Z79.01 Assessment & Plan Assessment & Plan (1) Current use of anticoagulant therapy: Code(s): Z79.01 - [facility] (current) use of anticoagulants Category: Medical
== END 2024-06-10 11:18 | disposition home or self-care (01) ==
LOC: HO.ACS 10:31
PROVIDERS: PCP Internal Medicine; Visit Provider Internal Medicine
DX: Z79.01 Long term (current) use of anticoagulants (principal)

== ENCOUNTER → 2024-06-10 10:31 | Outpatient (BNVA) | payer OTHER, SELFPAY | PROVIDERS: PCP Internal Medicine; Visit Provider Internal Medicine | DX: I26.99 Other pulmonary embolism without acute cor pulmonale (principal); Z79.01 Long term (current) use of anticoagulants; Z51.81 Encounter for therapeutic drug level monitoring | CPT/HCPCS: 85610; 99211 ==

== ENCOUNTER 2024-06-16 08:21 | Outpatient (AMB) | payer OTHER, SELFPAY ==
--- NOTE | 2024-06-16 08:22 | A.OFFVIS_ITS ---
Vital Signs 06/16/24 08:25 Height 5 ft 5 in Weight 253 lb 5 oz BMI 42.1 BP 140/80 H Blood Pressure Location Lt radial Position Sitting Pulse 90 Pulse Source Pulse Oximeter Pulse Oximetry (%) 98 Oxygen Delivery Method Nasal Cannula Intake Visit Reasons: ANANDA+ve/CM Intake Note: Patient presents for ANANDA+ve. Allergies lisinopril [LISINOPRIL] Allergy (Severe, Verified 06/16/24 08:25) ANGIOEDEMA dapagliflozin [From FARXIGA] Allergy (Intermediate, Verified 06/16/24 08:25) HIVES liraglutide [From VICTOZA] Allergy (Intermediate, Verified 06/16/24 08:25) RASH metformin [METFORMIN] Allergy (Intermediate, Verified 06/16/24 08:25) GI UPSET erythromycin base [ERYTHROMYCIN BASE] Allergy (Unknown, Verified 06/16/24 08:25) UNKNOWN amitriptyline [AMITRIPTYLINE] Adverse Reaction (Intermediate, Verified 06/16/24 08:25) DRUGGED FEELING Medication List - Last Reconciled 06/16/24 by Berna Verma MD acetaminophen ER 650 mg PO Q6H PRN albuterol sulfate 2.5 mg inhalation Q4H PRN albuterol sulfate 90 mcg/actuation (Ventolin HFA) 2 puffs inhalation Q6H PRN atorvastatin 20 mg PO BEDTIME blood sugar diagnostic (FreeStyle Lite Strips) As directed ferrous gluconate 324 mg PO DAILY furosemide (Lasix) 20 mg PO DAILY 3 days glimepiride 4 mg PO ONCE levothyroxine 50 mcg PO DAILY metformin 1,000 mg PO BID nebulizers As directed Oxygen Home Use As directed sertraline 100 mg PO DAILY sildenafil (pulm.hypertension) 20 mg PO TID 30 days tirzepatide (Mounjaro) 5 mg (0.5 mL) subcut QWEEK warfarin 5 mg See Protocol PO DAILY 30 days HPI Comments Details: Patient returns for follow-up after completion of her diagnostic workup. Initial history: This is a 48-year-old female with history of pulmonary hypertension on sildenafil, CKD, PE on warfarin who presents for evaluation of a positive ANANDA. Patient had a positive ANANDA +low C3 and C4 when worked up by Nephrology for LEXUS. Patient had COVID infection followed by the. She took Eliquis for a few months then discontinued get, her D-dimer was elevated and she was restarted on Eliquis. She only took 1 tab daily. She developed another PE a few months later. At that time she was started on Coumadin. She is being followed by Dr. Metcalf. Hypercoagulable workup revealed heterozygous factor 5 Leiden mutation. She was also found to have pulmonary hypertension and had balloon angioplasty of pulmonary artery in [place]. On sildenafil for her hypertension. Patient states that she gets chronic joint pains in her hands, neck, knees, feet. She states that she has had bilateral knee arthritis for years, left is worse than right. She received numerous cortisone injections in the knees. Last injection was about 2 years ago. She states that the injections stopped helping she denies any skin rashes. Patient had 5 miscarriages followed by 1 live . She was told she needed treatment for her gestational diabetes. She is unaware of any family history of an autoimmune rheumatic disease [facility] Medical History Pulmonary hypertension Hypercoagulable state Thyroid cancer Chronic thromboembolic disease Lower extremity edema Multinodular thyroid Family history of deep venous thrombosis Pleuritic chest pain Pulmonary emboli Dyspnea Dyspareunia in female Anemia Obstructive sleep apnea Morbid obesity History of COVID-19 (~2020) History of pulmonary embolus (PE) (~2020) Anxiety Chronic headaches Dyspnea on exertion Diabetes type 2, controlled Hypothyroid HTN (hypertension) Hyperlipidemia Surgical History History of angioplasty History of surgery on right wrist History of foot surgery History of tubal ligation History of carpal tunnel surgery History of ERCP History of laparoscopic cholecystectomy History of surgery Family History Father Myocardial infarction COPD (chronic obstructive pulmonary disease) Mother COPD (chronic obstructive pulmonary disease) Brother Colitis Social History Housing: House Alcohol intake: former Comment: pt d/c home Patient Tobacco Use Status: Never used Tobacco service: No Current occupational status: employed 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, 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 Current occupational exposures/hazards: No Review of Systems Musc Reports arthralgias Physical Exam Vital Signs: Last Vital Signs Pulse 90 06/16/24 08:25 BP 140/80 H 06/16/24 08:25 Pulse Ox 98 06/16/24 08:25 Oxygen Delivery Method Nasal Cannula 06/16/24 08:25 BMI result Body Mass Index 42.1 Assessment & Plan Assessment & Plan (1) ANANDA positive: Code(s): R76.8 - Other specified abnormal immunological findings in serum Category: Medical Plan: This is a 48-year-old female with history of hypothyroidism, CKD, pulmonary hypertension (likely group 4) on sildenafil and Coumadin, recurrent pulmonary embolism who presents for evaluation of positive ANANDA with low C3 and C4. Comprehensive serologies for underlying autoimmune rheumatic disease is negative. Her complements normalized without immune suppression. At this time I do not see any evidence of an underlying autoimmune rheumatic disease Follow-up with other providers Plan I spent 15 minutes reviewing patient's chart, evaluating patient, , counseling patient and documenting in the chart Coding Level of Care Code Est Pt Level 3 (58455) Diagnoses ANANDA positive R76.8
[2024-06-16 08:25] VITALS: BP 140/80; PULSE 90; O2SAT 98; BMI 42.1
== END 2024-06-16 08:35 | disposition home or self-care (01) ==
PROVIDERS: PCP Internal Medicine; Visit Provider Student in an Organized Health Care Education/Training Program
DX: R76.8 Other specified abnormal immunological findings in serum (principal)
CPT/HCPCS: 99213

== ENCOUNTER → 2024-06-16 08:21 | Outpatient (BNVA) | payer OTHER, SELFPAY | PROVIDERS: PCP Internal Medicine; Visit Provider Student in an Organized Health Care Education/Training Program | DX: R76.8 Other specified abnormal immunological findings in serum (principal) | CPT/HCPCS: 99212 ==

== ENCOUNTER 2024-06-17 10:40 | Outpatient (REF) | payer OTHER, SELFPAY ==
[2024-06-17 11:22] LABS: MANUAL DIFF FLAG NO
[2024-06-17 11:26] LABS: Basophils Absolute Auto 0.1 X10*3/uL (0.0-0.2); Basophils Percent Auto 0.8 % (0-2); Eosinophils Absolute Auto 0.5 X10*3/uL (0.0-0.4); Eosinophils Percent Auto 4.5 % (0-4); Hematocrit 34.9 % (37.0-47.0); Hemoglobin 10.2 g/dl (12.0-16.0); Imm Gran Abs Auto 0.05 X10*3/uL (0.00-0.03); Imm Gran Pct Auto 0.4 % (0.0-0.4); Lymphocytes Percent Auto 25.3 % (20-40); Mean Corpuscular HGB Conc 29.2 g/dl (31.0-35.0); Mean Corpuscular Hemoglobin 20.2 pg (27.0-33.0); Mean Corpuscular Volume 69.1 fL (80.0-98.0); Monocytes Absolute Auto 0.8 X10*3/uL (0.1-1.2); Monocytes Percent Auto 7.1 % (2-11); Neutrophils Absolute Auto 7.4 x10*3/uL (2.0-8.3); Neutrophils Percent Auto 61.9 % (45-73); Platelet Count 243 X10*3/uL (160-400); Red Blood Count 5.05 X10*6/uL (4.20-5.50); Red Cell Distribution Width 18.2 % (11.0-16.0); White Blood Count 11.9 X10*3/uL (4.8-10.8)
[2024-06-17 11:30] LABS: Prothrombin Time 55.9 SEC (10.9-12.4)
[2024-06-17 11:34] LABS: INTERNATIONAL NORM RATIO 4.8 (0.9-1.1)
== END 2024-06-17 10:41 | disposition home or self-care (01) ==
LOC: HO.LAB 10:40
PROVIDERS: PCP Internal Medicine; Visit Provider Internal Medicine
DX: Z51.81 Encounter for therapeutic drug level monitoring (principal); Z79.01 Long term (current) use of anticoagulants
CPT/HCPCS: 36415; 85025; 85610; 99211

== ENCOUNTER 2024-06-17 10:40 | Outpatient (AMB) | payer OTHER, SELFPAY ==
--- NOTE | 2024-06-17 11:04 | MHC.OFFVISCO ---
Intake Intake Visit Reasons: Anticoagulation Allergies lisinopril [LISINOPRIL] Allergy (Severe, Verified 06/17/24 10:46) ANGIOEDEMA dapagliflozin [From FARXIGA] Allergy (Intermediate, Verified 06/17/24 10:46) HIVES liraglutide [From VICTOZA] Allergy (Intermediate, Verified 06/17/24 10:46) RASH metformin [METFORMIN] Allergy (Intermediate, Verified 06/17/24 10:46) GI UPSET erythromycin base [ERYTHROMYCIN BASE] Allergy (Unknown, Verified 06/17/24 10:46) UNKNOWN amitriptyline [AMITRIPTYLINE] Adverse Reaction (Intermediate, Verified 06/17/24 10:46) DRUGGED FEELING Medication List - Last Reconciled 06/17/24 by Francine Mitchell RN acetaminophen ER 650 mg PO Q6H PRN albuterol sulfate 2.5 mg inhalation Q4H PRN albuterol sulfate 90 mcg/actuation (Ventolin HFA) 2 puffs inhalation Q6H PRN atorvastatin 20 mg PO BEDTIME blood sugar diagnostic (FreeStyle Lite Strips) As directed ferrous gluconate 324 mg PO DAILY furosemide (Lasix) 20 mg PO DAILY 3 days glimepiride 4 mg PO ONCE levothyroxine 50 mcg PO DAILY metformin 1,000 mg PO BID nebulizers As directed Oxygen Home Use As directed sertraline 100 mg PO DAILY sildenafil (pulm.hypertension) 20 mg PO TID 30 days tirzepatide (Mounjaro) 5 mg (0.5 mL) subcut QWEEK warfarin 5 mg See Protocol PO DAILY 30 days Nursing Note INR by POC 5.0?out of therapeutic range of 2-3 INR by lab draw: 4.8 Pt very pale. Last Hgb/Hct 9.6/30.9 CBC drawn and Hgb/Hct 10.2/34.9 today Unable to determine why the INR is high Medications and supplements reviewed Patient status: Has had a headache for 2-3 weeks. Takes tylenol but only one dose a day, not everyday. Medications or supplements: no changes Diet: usual diet for pt Denies any signs and symptoms of bleeding or clotting or unusual bruising Bleeding, bruising, clotting discussed Nutritional guidance given: to have a serving of greens today Dose: hold today's dose of 5mg and return tomorrow. F/U INR Date : Fri06/18/24?? Patient verbalizing understanding of instructions given. Anti-Coag Initial Assessment Social Hx Patient Tobacco Use Status: Never used Tobacco alcohol intake: former Alcohol intake frequency: does not drink Cardiovascular Hx: HTN Lung Disease HX: DVT/PE Endocrine Hx: Thyroid Disease Musculoskeletal Hx: Arthritis Blood Disorder Hx: Anemia and Hyperlipidemia GI Hx: Ulcers, Diverticulosis and Hemorrhoids Hx: Other Neurological Hx: Migraines/Headaches and Other Cancer HX: No Psych. Illness/Depression: Yes Coding Level of Care Code Est Patient Level 1 Diagnoses Current use of anticoagulant therapy Z79. 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 - [facility] (current) use of anticoagulants
== END 2024-06-17 12:05 | disposition home or self-care (01) ==
LOC: HO.ACS 10:40
PROVIDERS: PCP Internal Medicine; Visit Provider Internal Medicine
DX: Z79.01 Long term (current) use of anticoagulants (principal)

== ENCOUNTER 2024-06-18 13:31 | Outpatient (AMB) | payer OTHER, SELFPAY ==
--- NOTE | 2024-06-18 14:11 | MHC.OFFVISCO ---
Intake Intake Visit Reasons: Anticoagulation Allergies lisinopril [LISINOPRIL] Allergy (Severe, Verified 06/18/24 13:39) ANGIOEDEMA dapagliflozin [From FARXIGA] Allergy (Intermediate, Verified 06/18/24 13:39) HIVES liraglutide [From VICTOZA] Allergy (Intermediate, Verified 06/18/24 13:39) RASH metformin [METFORMIN] Allergy (Intermediate, Verified 06/18/24 13:39) GI UPSET erythromycin base [ERYTHROMYCIN BASE] Allergy (Unknown, Verified 06/18/24 13:39) UNKNOWN amitriptyline [AMITRIPTYLINE] Adverse Reaction (Intermediate, Verified 06/18/24 13:39) DRUGGED FEELING Medication List - Last Reconciled 06/18/24 by Licha Muñoz RN acetaminophen ER 650 mg PO Q6H PRN albuterol sulfate 2.5 mg inhalation Q4H PRN albuterol sulfate 90 mcg/actuation (Ventolin HFA) 2 puffs inhalation Q6H PRN atorvastatin 20 mg PO BEDTIME blood sugar diagnostic (FreeStyle Lite Strips) As directed ferrous gluconate 324 mg PO DAILY furosemide (Lasix) 20 mg PO DAILY 3 days glimepiride 4 mg PO ONCE levothyroxine 50 mcg PO DAILY metformin 1,000 mg PO BID nebulizers As directed Oxygen Home Use As directed sertraline 100 mg PO DAILY sildenafil (pulm.hypertension) 20 mg PO TID 30 days tirzepatide (Mounjaro) 5 mg (0.5 mL) subcut QWEEK warfarin 5 mg See Protocol PO DAILY 30 days Nursing Note INR 4.6? out of therapeutic range Medications and supplements reviewed Patient status: Pt recovering from URI infection vs a possible PE, she went to the ER last week with Fever x 3 and extreme c/p and sent home, she is improved fever finally broke but still feels sob, she was advised when she has breathing concerns or low o2 saturations to call her Pulm DR Land- she is going over to see his office now, she has lost weight due to lack of appetite. Medications or supplements: no changes at this time Diet: decreased appetite Denies any signs and symptoms of bleeding or clotting or unusual bruising Bleeding, bruising, clotting discussed Nutritional guidance given: greens today Dose: held yesterday dose and will hold again today then 2.5mg sat sun mon F/U INR Date : fri06/23/24 per pt request -?? Patient verbalizing understanding of instructions given. Anti-Coag Initial Assessment Social Hx Patient Tobacco Use Status: Never used Tobacco alcohol intake: former Alcohol intake frequency: does not drink Cardiovascular Hx: HTN Lung Disease HX: DVT/PE Endocrine Hx: Thyroid Disease Musculoskeletal Hx: Arthritis Blood Disorder Hx: Anemia and Hyperlipidemia GI Hx: Ulcers, Diverticulosis and Hemorrhoids Hx: Other Neurological Hx: Migraines/Headaches and Other Cancer HX: No Psych. 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
[2024-06-18 14:49] LABS: Prothrombin Time Whole Bld POC 54.8 sec (11.1-13.5); ~PT, ~INR - Anti Coag Clinic 4.6 (0.9-1.1)
== END 2024-06-18 14:21 | disposition home or self-care (01) ==
LOC: HO.ACS 13:31
PROVIDERS: PCP Internal Medicine; Visit Provider Internal Medicine
DX: Z79.01 Long term (current) use of anticoagulants (principal)

== ENCOUNTER → 2024-06-18 13:31 | Outpatient (BNVA) | payer OTHER, SELFPAY | PROVIDERS: PCP Internal Medicine; Visit Provider Internal Medicine | DX: I26.99 Other pulmonary embolism without acute cor pulmonale (principal); Z79.01 Long term (current) use of anticoagulants; Z51.81 Encounter for therapeutic drug level monitoring | CPT/HCPCS: 85610; 99211 ==

== ENCOUNTER 2024-06-23 09:12 | Outpatient (AMB) | payer OTHER, SELFPAY ==
[2024-06-23 09:18] LABS: Prothrombin Time Whole Bld POC 22.6 sec (11.1-13.5); ~PT, ~INR - Anti Coag Clinic 1.9 (0.9-1.1)
--- NOTE | 2024-06-23 09:24 | MHC.OFFVISCO ---
Intake Intake Visit Reasons: Anticoagulation Allergies lisinopril [LISINOPRIL] Allergy (Severe, Verified 06/23/24 09:13) ANGIOEDEMA dapagliflozin [From FARXIGA] Allergy (Intermediate, Verified 06/23/24 09:13) HIVES liraglutide [From VICTOZA] Allergy (Intermediate, Verified 06/23/24 09:13) RASH metformin [METFORMIN] Allergy (Intermediate, Verified 06/23/24 09:13) GI UPSET erythromycin base [ERYTHROMYCIN BASE] Allergy (Unknown, Verified 06/23/24 09:13) UNKNOWN amitriptyline [AMITRIPTYLINE] Adverse Reaction (Intermediate, Verified 06/23/24 09:13) DRUGGED FEELING Medication List - Last Reconciled 06/23/24 by Yola Herring RN acetaminophen ER 650 mg PO Q6H PRN albuterol sulfate 2.5 mg inhalation Q4H PRN albuterol sulfate 90 mcg/actuation (Ventolin HFA) 2 puffs inhalation Q6H PRN atorvastatin 20 mg PO BEDTIME blood sugar diagnostic (FreeStyle Lite Strips) As directed ferrous gluconate 324 mg PO DAILY furosemide (Lasix) 20 mg PO DAILY 3 days glimepiride 4 mg PO ONCE levothyroxine 50 mcg PO DAILY metformin 1,000 mg PO BID nebulizers As directed Oxygen Home Use As directed sertraline 100 mg PO DAILY sildenafil (pulm.hypertension) 20 mg PO TID 30 days tirzepatide (Mounjaro) 5 mg (0.5 mL) subcut QWEEK warfarin 5 mg See Protocol PO DAILY 30 days Nursing Note PT.STATES THAT SHE IS FEELING A BIT BETTER. CHEST DISCOMFORT HAS LESSENED, BUT STILL USING O2. NO MED CHANGES OR SX OF BLEEDING. BOOST TO 5MGM TODAY THEN RESUME PRESENT DOSING AND FOLLOW-UP IN 1 WEEEK. NO GREENS TODAY GHOOD UNDERSTANDING OF DOSING INSTR. Anti-Coag Initial Assessment Social Hx Patient Tobacco Use Status: Never used Tobacco alcohol intake: former Alcohol intake frequency: does not drink Cardiovascular Hx: HTN Lung Disease HX: DVT/PE Endocrine Hx: Thyroid Disease Musculoskeletal Hx: Arthritis Blood Disorder Hx: Anemia and Hyperlipidemia GI Hx: Ulcers, Diverticulosis and Hemorrhoids Hx: Other Neurological Hx: Migraines/Headaches and Other Cancer HX: No Psych. Illness/Depression: Yes Coding Level of Care Code Est Patient Level 1 Diagnoses Current use of anticoagulant therapy Z79.01 Assessment & Plan Assessment & Plan (1) Current use of anticoagulant therapy: Code(s): Z79.01 - [facility] (current) use of anticoagulants Category: Medical
== END 2024-06-23 09:27 | disposition home or self-care (01) ==
LOC: HO.ACS 09:12
PROVIDERS: PCP Internal Medicine; Visit Provider Internal Medicine
DX: Z79.01 Long term (current) use of anticoagulants (principal)

== ENCOUNTER → 2024-06-23 09:12 | Outpatient (BNVA) | payer OTHER, SELFPAY | PROVIDERS: PCP Internal Medicine; Visit Provider Internal Medicine | DX: I26.99 Other pulmonary embolism without acute cor pulmonale (principal); Z79.01 Long term (current) use of anticoagulants; Z51.81 Encounter for therapeutic drug level monitoring | CPT/HCPCS: 85610; 99211 ==

== ENCOUNTER 2024-06-29 09:15 | Outpatient (AMB) | payer OTHER, SELFPAY ==
[2024-06-29 09:31] LABS: Prothrombin Time Whole Bld POC 31.5 sec (11.1-13.5); ~PT, ~INR - Anti Coag Clinic 2.6 (0.9-1.1)
--- NOTE | 2024-06-29 09:31 | MHC.OFFVISCO ---
Intake Intake Visit Reasons: Anticoagulation Allergies lisinopril [LISINOPRIL] Allergy (Severe, Verified 06/29/24 09:26) ANGIOEDEMA dapagliflozin [From FARXIGA] Allergy (Intermediate, Verified 06/29/24 09:26) HIVES liraglutide [From VICTOZA] Allergy (Intermediate, Verified 06/29/24 09:26) RASH metformin [METFORMIN] Allergy (Intermediate, Verified 06/29/24 09:26) GI UPSET erythromycin base [ERYTHROMYCIN BASE] Allergy (Unknown, Verified 06/29/24 09:26) UNKNOWN amitriptyline [AMITRIPTYLINE] Adverse Reaction (Intermediate, Verified 06/29/24 09:26) DRUGGED FEELING Medication List - Last Reconciled 06/29/24 by Linh Mcnulty RN acetaminophen ER 650 mg PO Q6H PRN albuterol sulfate 2.5 mg inhalation Q4H PRN albuterol sulfate 90 mcg/actuation (Ventolin HFA) 2 puffs inhalation Q6H PRN atorvastatin 20 mg PO BEDTIME blood sugar diagnostic (FreeStyle Lite Strips) As directed ferrous gluconate 324 mg PO DAILY furosemide (Lasix) 20 mg PO DAILY 3 days glimepiride 4 mg PO ONCE levothyroxine 50 mcg PO DAILY metformin 1,000 mg PO BID nebulizers As directed Oxygen Home Use As directed sertraline 100 mg PO DAILY sildenafil (pulm.hypertension) 20 mg PO TID 30 days tirzepatide (Mounjaro) 5 mg (0.5 mL) subcut QWEEK warfarin 5 mg See Protocol PO DAILY 30 days Nursing Note INR: 2.6- in therapeutic range 2-3 Medications and supplements reviewed No changes in health, diet, medications, or supplements, Denies any signs and symptoms of bleeding or bruising or clotting. Bleeding, bruising, clotting discussed Nutritional guidance given Dose: 5mg x 1. 2.5mg x 6 pt states took 5mg yesterday, enc to follow dosing paper F/U INR: 1 week Patient verbalizes understanding of instructions given pt on cont oxygen, c.o fatigue Anti-Coag Initial Assessment Social Hx Patient Tobacco Use Status: Never used Tobacco alcohol intake: former Alcohol intake frequency: does not drink Cardiovascular Hx: HTN Lung Disease HX: DVT/PE Endocrine Hx: Thyroid Disease Musculoskeletal Hx: Arthritis Blood Disorder Hx: Anemia and Hyperlipidemia GI Hx: Ulcers, Diverticulosis and Hemorrhoids Hx: Other Neurological Hx: Migraines/Headaches and Other Cancer HX: No Psych. 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
== END 2024-06-29 09:36 | disposition home or self-care (01) ==
LOC: HO.ACS 09:15
PROVIDERS: PCP Internal Medicine; Visit Provider Internal Medicine
DX: Z79.01 Long term (current) use of anticoagulants (principal)

== ENCOUNTER → 2024-06-29 09:15 | Outpatient (BNVA) | payer OTHER, SELFPAY | PROVIDERS: PCP Internal Medicine; Visit Provider Internal Medicine | DX: I26.99 Other pulmonary embolism without acute cor pulmonale (principal); Z79.01 Long term (current) use of anticoagulants; Z51.81 Encounter for therapeutic drug level monitoring | CPT/HCPCS: 85610; 99211 ==

== ENCOUNTER 2024-07-05 09:34 | Outpatient (AMB) | payer OTHER, SELFPAY ==
[2024-07-05 09:42] LABS: ~PT, ~INR - Anti Coag Clinic 2.3 (0.9-1.1)
--- NOTE | 2024-07-05 09:50 | MHC.OFFVISCO ---
Intake Intake Visit Reasons: Anticoagulation Allergies lisinopril [LISINOPRIL] Allergy (Severe, Verified 07/05/24 09:37) ANGIOEDEMA dapagliflozin [From FARXIGA] Allergy (Intermediate, Verified 07/05/24 09:37) HIVES liraglutide [From VICTOZA] Allergy (Intermediate, Verified 07/05/24 09:37) RASH metformin [METFORMIN] Allergy (Intermediate, Verified 07/05/24 09:37) GI UPSET erythromycin base [ERYTHROMYCIN BASE] Allergy (Unknown, Verified 07/05/24 09:37) UNKNOWN amitriptyline [AMITRIPTYLINE] Adverse Reaction (Intermediate, Verified 07/05/24 09:37) DRUGGED FEELING Medication List - Last Reconciled 07/05/24 by Francine Mitchell RN acetaminophen ER 650 mg PO Q6H PRN albuterol sulfate 2.5 mg inhalation Q4H PRN albuterol sulfate 90 mcg/actuation (Ventolin HFA) 2 puffs inhalation Q6H PRN atorvastatin 20 mg PO BEDTIME blood sugar diagnostic (FreeStyle Lite Strips) As directed ferrous gluconate 324 mg PO DAILY furosemide (Lasix) 20 mg PO DAILY 3 days glimepiride 4 mg PO ONCE levothyroxine 50 mcg PO DAILY metformin 1,000 mg PO BID nebulizers As directed Oxygen Home Use As directed sertraline 100 mg PO DAILY sildenafil (pulm.hypertension) 20 mg PO TID 30 days tirzepatide (Mounjaro) 5 mg (0.5 mL) subcut QWEEK warfarin 5 mg See Protocol PO DAILY 30 days Nursing Note Pt to [facility] with portable O2. INR: 2.3 in therapeutic range of 2-3 Medications and supplements reviewed No changes in health, diet, medications, or supplements, Denies any signs and symptoms of bleeding or bruising or clotting. Bleeding, bruising, clotting discussed Nutritional guidance given Dose: 2.5mg X 6 days and 5mg X 1 day F/U INR: 2 weeks Patient verbalizes understanding of instructions given Anti-Coag Initial Assessment Social Hx Patient Tobacco Use Status: Never used Tobacco alcohol intake: former Alcohol intake frequency: does not drink Cardiovascular Hx: HTN Lung Disease HX: DVT/PE Endocrine Hx: Thyroid Disease Musculoskeletal Hx: Arthritis Blood Disorder Hx: Anemia and Hyperlipidemia GI Hx: Ulcers, Diverticulosis and Hemorrhoids Hx: Other Neurological Hx: Migraines/Headaches and Other Cancer HX: No Psych. 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
== END 2024-07-05 09:53 | disposition home or self-care (01) ==
LOC: HO.ACS 09:34
PROVIDERS: PCP Internal Medicine; Visit Provider Internal Medicine
DX: Z79.01 Long term (current) use of anticoagulants (principal)

== ENCOUNTER → 2024-07-05 09:34 | Outpatient (BNVA) | payer OTHER, SELFPAY | PROVIDERS: PCP Internal Medicine; Visit Provider Internal Medicine | DX: I26.99 Other pulmonary embolism without acute cor pulmonale (principal); Z79.01 Long term (current) use of anticoagulants; Z51.81 Encounter for therapeutic drug level monitoring | CPT/HCPCS: 85610; 99211 ==

== ENCOUNTER 2024-07-08 09:36 | Outpatient (REF) | payer OTHER, SELFPAY ==
[2024-07-08 10:34] LABS: Estimated Average Glucose 120 mg/dL; Hemoglobin A1C 107.2902 umol/L; Hemoglobin A1c % 5.8 % (<6.0); Total Hemoglobin (HGBA1C) 2669.9862 umol/L
[2024-07-08 11:17] LABS: Alanine Aminotransferase 15 U/L (0-31); Albumin Level 4.1 g/dL (3.5-5.0); Alkaline Phosphatase 84 U/L (39-117); Anion Gap 15 (12-20); Aspartate Amino Transferase 20 U/L (5-31); Bilirubin Total 0.5 mg/dL (0.0-1.0); Blood Urea Nitrogen 13 mg/dL (9-16); Calcium 10.1 mg/dL (8.4-10.2); Carbon Dioxide 26 mmol/L (22-29); Chloride 105 mmol/L (96-108); Estimated Glomerular Filt Rate 50; Glucose Random 98 mg/dL (60-115); Potassium 4.2 mmol/L (3.3-5.1); Sodium 142 mmol/L (135-145); Total Protein 7.3 g/dL (6.5-8.0)
[2024-07-08 11:24] LABS: Thyroid Stimulating Hormone 1.82 uIU/mL (0.32-4.0)
== END 2024-07-08 09:37 | disposition home or self-care (01) ==
LOC: HO.LAB 09:36
PROVIDERS: PCP Internal Medicine; Visit Provider Internal Medicine
DX: E11.9 Type 2 diabetes mellitus without complications (principal); D63.8 Anemia in other chronic diseases classified elsewhere; E89.0 Postprocedural hypothyroidism; N18.9 Chronic kidney disease, unspecified; R05.3 Chronic cough
CPT/HCPCS: 36415; 80053; 83036; 84443

== ENCOUNTER 2024-07-12 09:58 | Outpatient (AMB) | payer OTHER, SELFPAY ==
--- NOTE | 2024-07-12 10:11 | MHC.OFFVIS ---
Vital Signs 07/12/24 10:13 Height 5 ft 5 in Weight 250 lb BMI 41.6 BP 124/68 Blood Pressure Location Lt brachial Position Sitting Pulse 94 Pulse Source Pulse Oximeter Pulse Oximetry (%) 97 Oxygen Delivery Method Nasal Cannula Oxygen Flow Rate 2.5 Intake Visit Reasons: PE Dyno Technician Required: No Plisse Machine Operator Helper: Plisse Machine Operator Helper offered & declined Accompanied by: Self / Same As Patient Allergies lisinopril [LISINOPRIL] Allergy (Severe, Verified 07/12/24 10:12) ANGIOEDEMA dapagliflozin [From FARXIGA] Allergy (Intermediate, Verified 07/12/24 10:12) HIVES liraglutide [From VICTOZA] Allergy (Intermediate, Verified 07/12/24 10:12) RASH metformin [METFORMIN] Allergy (Intermediate, Verified 07/12/24 10:12) GI UPSET erythromycin base [ERYTHROMYCIN BASE] Allergy (Unknown, Verified 07/12/24 10:12) UNKNOWN amitriptyline [AMITRIPTYLINE] Adverse Reaction (Intermediate, Verified 07/12/24 10:12) DRUGGED FEELING Medication List - Last Reconciled 07/12/24 by Faye Schaeffer LPN acetaminophen ER 650 mg PO Q6H PRN albuterol sulfate 2.5 mg inhalation Q4H PRN albuterol sulfate 90 mcg/actuation (Ventolin HFA) 2 puffs inhalation Q6H PRN atorvastatin 20 mg PO BEDTIME blood sugar diagnostic (FreeStyle Lite Strips) As directed ferrous gluconate 324 mg PO DAILY furosemide (Lasix) 20 mg PO DAILY 3 days glimepiride 4 mg PO ONCE levothyroxine 50 mcg PO DAILY metformin 1,000 mg PO BID nebulizers As directed Oxygen Home Use As directed sertraline 100 mg PO DAILY sildenafil (pulm.hypertension) 20 mg PO TID 30 days tirzepatide (Mounjaro) 5 mg (0.5 mL) subcut QWEEK warfarin 5 mg See Protocol PO DAILY 30 days HPI Comments Details: The patient is a 48-year-old woman with a known history of pulmonary emboli currently on Eliquis presenting with worsening dyspnea symptoms. Patient complains of dyspnea on exertion. Moderate severity. denies any wheezing or coughing. The patient does not have any respiratory inhalers at this time. She denies any wheezing although she does have chest tightness. In addition to that the patient does have daytime drowsiness. Her [place] score is elevated 24. The patient does have cardiovascular risk factors. Patient needs to undergo home sleep study this time. We did review imaging studies that we have available including a CT scan of the chest angiogram ruling out pulmonary embolism in the spring. the lung parenchyma is also within normal limits which is reassuring. 08/16/2022 the patient is here for a pulmonary follow-up visit. The patient overall has been feeling relatively well. She still has some daytime drowsiness. Her [place] score is elevated /24. The patient did have a sleep study done. Appears that she was sleeping the most part on her back and she had a mild degree of sleep apnea with an AHI just above 5. her sleep apnea was less severe when she laid on her sides. Therefore she wants to try positional therapy for now. If she does not improved after positional therapy then can consider CPAP therapy. The patient also continues on the Eliquis. She is tolerating it well. No minor major bleeding noted. she did undergo pulmonary function studies personally by me demonstrating an isolated moderate diffusion impairment. We did talk about potentially chronic thromboembolic disease could result in this presentation. But she is also anemic and that can also result in the diffusing impairment as well. She is currently on iron. 10/25/2022 the patient is here for pulmonary follow-up visit. The patient has been complaining of increasing shortness of breath. Moderate severity. Also complaining of right-sided pleuritic chest pain. She went to the gym yesterday and she got short of breath and also felt dizzy. She did undergo blood work which we reviewed. She has an elevated white count in addition to a left shift suggesting an infectious process. On further questioning she has been coughing more recently. In addition to that she does complaint of that pleuritic discomfort. She did have blood work which we debrided reviewed together. White count is elevated consistent with an infectious process. In addition to that her D-dimer is elevated. On further questioning she is not taking her Eliquis correctly. She is only doing it daily. With her elevated D-dimer in the pleuritic chest pain in a history of previous blood clots the patient needs to get a repeat CT scan of the chest PE protocol. Will request 1 at this time. However, being Friday if the patient develops any worsening symptoms she should go to the ER. 01/09/2023 the patient is here for a pulmonary follow-up visit. The patient still having shortness of breath even after being hospitalized. She did increase her Eliquis medication to twice a day. The patient still has significant shortness of breath with minimal activity moderate severity. She complains of chest discomfort. She is wondering if the Eliquis is working. She did follow-up with her oncologist. It appears that she does have factor 5 Leiden putting her risk for blood clots and also her family. She needs to make sure the family is aware of this had artery disease. We did taken for walking oximetry the patient did desaturate down to 87% with activity and she was also tachycardic to 130. I am concerned that she may have at this point chronic thromboembolic disease. Will go ahead and order a V/Q scan and switch over to Coumadin. If the patient continues to have blood clots even after that will have to consider a referral to [place]. 02/06/2023 The patient is here for a follow up visit. Switched over to coumadin. But, then ended up with a tooth infection and placed on abx. Started developing headaches and blurry vision. She had her INR check and it was critically high 6.8. She is using the oxygen with good effect. Has an ECHO scheduled for next week. We will plan to repeat her VQ scan in 6-8 weeks, if no better, then will need a referral to [facility] for CTED. In the meantime, I did call the ED triage and took her to the ED to assess for an acute bleed for the supra therapeutic INR. 07/23/2023 the patient is here for a pulmonary follow-up visit. The patient continues to be about the same. Still having shortness of breath with activity. The oxygen has been affecting beneficial. She continues on the Coumadin. Her Coumadin levels continue to fluctuate. The patient did go to [place]. Chief deemed high risk for the pulmonary artery enterectomy therefore, the patient will undergo angioplasty. Will be broken up in about 3-4 procedures. She will have to switch over to Lovenox intermittently for the procedures. Will going to go ahead and work with the Coumadin clinic in order to do so effectively. She will continue with the oxygen for now. The patient also has to follow-up with her surgeon for the abnormal findings of the thyroid but that can hold and wait until she is stable from a pulmonary standpoint. She continues to work with her television schedule coordinator regarding her diabetes which appears to be better. She will continue with current therapy. Will follow-up in a couple months after she has completed with her angioplasty and perform a 6 minutes walk test to see if we can titrate her down to a conserving device in order for her to have an easier time caring the oxygen. We can also consider the use of vasodilators very therapy. Will discuss that further with [place]. 11/11/2023 the patient is here for a pulmonary follow-up visit. She is status post angioplasty although pulmonary vessels. Unfortunately she continues to be short of breath. Her V/Q scan in [place] demonstrated some slight improvement per the patient's report. I do not have any objective data at this time. She continues use her oxygen with activity and also with sleep. She continues on the blood thinners currently on Coumadin. She is tolerating it well maintaining the INR within therapeutic range. We did take her briefly for walking oximetry to see if she can tolerated conserving device. But, the patient became very tachycardic and also dyspneic. The patient still has significant pulmonary hypertension due to the chronic thromboembolic disease. This is WHO group 4. in view of her ongoing symptoms of tachycardia shortness of breath this is consistent with a [place] Heart Association class 4 where she is short of breath even at rest. Therefore, will place on vasodilators therapy, PD 5 inhibitor, to treat her underlying pulmonary hypertension. The patient was start the medication and then returned 3 months but we can repeat her echocardiogram and also repeat her 6 minute walk test with the hope that she can tolerate then the conserving device. The patient is also having significant daytime drowsiness. Her [place] score is elevated 11/24. She does have increased cardiovascular risk factors. The patient will benefit for another sleep study. She did have mild sleep apnea back in 2021. at this point she will require an in-lab sleep study. The patient will hold off for now but will further discuss it during her follow-up. 03/09/2024 the patient is here for a pulmonary follow-up visit. Since we last spoke the patient did undergo her thyroid surgery. She did tolerate well. However, after she did develop worsening shortness of breath. She was recommended to go to the ER. She went to the [facility] ER. There she had a CTA. I did personally review. No evidence of any pulmonary emboli in no evidence of any airspace disease. Otherwise look reasonable. The patient did have blood work at [facility] demonstrating an elevated brain atretic peptide. The patient was treated and released. The patient does have her oxygen therapy although she has a hard time carrying the Tanks after surgery. She seems a little volume overload. We did review her last echocardiogram. She has a 1+ diastolic dysfunction. She does have slight increase in the right ventricular size but otherwise normal function and normal pulmonary pressures which is reassuring. She does continue on the sildenafil. She has tolerating the vasodilators well. She continues on the Coumadin. Her levels are slightly subtherapeutic. She will continue to work closely with the Coumadin clinic. 07/12/2024 the patient is here for a pulmonary follow-up visit. Since we last spoke she started developing left-sided pleuritic discomfort. She went to the ER this is an June. There she did have a chest x-ray. I personally reviewed. Appears that she has a small pleural effusion there that is new consistent with pleurisy. The patient's symptoms did improve. Will have to get a repeat x-ray to make sure things are better. She does continue to use the oxygen with good effect. In the office we did go for a walking oximetry and a conserving trial. She did very well on 2 L pulse maintaining a pulse ox of 96% with activity on 2 L pulse. She was still tachycardic throughout the ambulation consistent with a history of chronic thromboembolic disease. Her last echo was back in February and was reassuring pressures are better. Although will go ahead and repeat them specially because some concerned that with the angioplasty the results can reverse. If that is the case we can always consider increasing the Revatio. She continues to take Coumadin. She does have lower extremity edema but is asymmetrical with left more than right. Will go ahead and request a ultrasound to make sure she does not have a clot specially with the ongoing tachycardia. [facility] Medical History Pulmonary hypertension Hypercoagulable state Thyroid cancer Chronic thromboembolic disease Lower extremity edema Multinodular thyroid Family history of deep venous thrombosis Pleuritic chest pain Pulmonary emboli Dyspnea Dyspareunia in female Anemia Obstructive sleep apnea Morbid obesity History of COVID-19 (~2020) History of pulmonary embolus (PE) (~2020) Anxiety Chronic headaches Dyspnea on exertion Diabetes type 2, controlled Hypothyroid HTN (hypertension) Hyperlipidemia Surgical History History of angioplasty History of surgery on right wrist History of foot surgery History of tubal ligation History of carpal tunnel surgery History of ERCP History of laparoscopic cholecystectomy History of surgery Family History Father Myocardial infarction COPD (chronic obstructive pulmonary disease) Mother COPD (chronic obstructive pulmonary disease) Brother Colitis Social History (Updated 07/12/24 @ 10:13 by Faye Schaeffer LPN) Housing: House Alcohol intake: former Comment: pt d/c home Patient Tobacco Use Status: Never used Tobacco service: No Current occupational status: employed 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, 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 Current occupational exposures/hazards: No Review of Systems Const Denies chills, Reports daytime sleepiness, Reports difficulty sleeping, Denies fever(s), Denies frequent falls, Reports headache(s), Denies night sweats, Reports snoring and Denies weight loss Eyes Reports blurry vision, Reports change in vision and Reports eye pain ENT Reports dizziness and Reports headache(s) Card Reports chest pain, Denies chest pain at rest, Denies chest pain with activity, Denies irregular heart rhythm, Denies claudication, Reports leg edema, Denies palpitations and Reports dyspnea on exertion Resp Denies cough, Reports pain on inspiration, Reports pain with cough, Reports dyspnea on exertion and Reports snoring Musc Reports deformity, Reports arthralgias, Reports joint swelling, Denies limited range of motion and Reports stiffness Neuro Reports dizziness, Denies frequent falls and Reports headache(s) Endo Denies palpitations Physical Exam Vital Signs: Last Vital Signs Pulse 94 07/12/24 10:13 BP 124/68 07/12/24 10:13 Pulse Ox 97 07/12/24 10:13 Oxygen Delivery Method Nasal Cannula 07/12/24 10:13 Oxygen Flow Rate 2.5 07/12/24 10:13 BMI result Body Mass Index 41.6 Const General: cooperative, healthy appearing, no acute distress and alert Orientation/consciousness: oriented to person, oriented to place and oriented to time Limitations: no limitations HEENT Head: Yes normal to inspection, Yes normocephalic and Yes atraumatic Mouth: moist mucous membranes Eyes Sclerae: sclerae normal Neck Neck: Yes normal visual inspection Chest Chest palpation & inspection: normal inspection of the chest Resp Effort & Inspection: normal respiratory effort and able to speak in complete sentences Auscultation: no wheezes and diminished lung sounds Cardio Jugular venous distension: no JVD Rate: tachycardic Rhythm: regular rhythm Heart sounds: S1 normal heart sound present and S2 normal heart sound present GI Inspection: Yes normal to inspection Skin General skin exam: no rashes or lesions noted Neuro General: oriented to person, oriented to place, oriented to time and moves all extremities Gait exam (Neuro): Antalgic gait present Motor exam (neuro): 5/5 motor strength present throughout Extrem General: Yes no clubbing, cyanosis or edema Right lower extremity: knee Details: abnormal to inspection, tenderness Location: of the patella and of the lateral joint line, abnormal ROM, crepitus Location: at the kneww, deformity and warmth; no swelling and no ecchymosis Left lower extremity: knee Details: abnormal to inspection, tenderness, abnormal ROM, crepitus, deformity and warmth; no swelling and no ecchymosis Psych Appearance: grossly normal Mental Status: mental status grossly normal Speech and movement: Normal speech and movement present and Clear speech present Affect: normal affect Attitude: cooperative Thought process: Normal thought process present Thought content: Normal thought content present Insight: Good insight present (Psych) Judgement: Good judgement present (Psych) Office Procedures 6 Minute Walk Time:: 14:30 SPO2 % at rest: 96 Pulse at rest: 100 SPO2 % during excercise: 88 Pulse during excercise: 130 Distance in yards walked: 300 Sofie Score: 6 Supplemental Oxygen: desaturated to 88% with activity on RA, placed on 2L/pulse with activity maintaining pox 96% 2l/pulse [id number] - 6 Minute Walk Assessment & Plan Assessment & Plan (1) Dyspnea: Code(s): R06.00 - Dyspnea, unspecified Category: Medical Qualifiers: Dyspnea type: dyspnea on exertion Qualified Code(s): R06.09 - Other forms of dyspnea (2) SERA (obstructive sleep apnea): Code(s): G47.33 - Obstructive sleep apnea (adult) (pediatric) Category: Medical (3) Bilateral pulmonary embolism: Code(s): I26.99 - Other pulmonary embolism without acute cor pulmonale Category: Medical (4) Lower extremity edema: Code(s): R60.0 - Localized edema Category: Medical (5) Chronic thromboembolic disease: Code(s): I74.9 - Embolism and thrombosis of unspecified artery Category: Medical (6) Pulmonary hypertension: Code(s): I27.20 - Pulmonary hypertension, unspecified Category: Medical (7) Pleurisy with effusion: Code(s): J90 - Pleural effusion, not elsewhere classified Category: Medical Plan s/p Angioplasty continue Coumadin continue sildenafil TID repeat ECHO repeat CXR urgent LE doppler LEFT to r/o DVT continue Symbicort Coumadin clinic continue oxygen 2L with activity, qualifies for POC 2L/pulse for better portability outside of the home LORRIE as needed F/U 3 months Orders: Orders XR chest 2V Today J90 - Pleural effusion, not elsewhere classified CA echo transthoracic complete Today I27.20 - Pulmonary hypertension, unspecified US venous duplex LE LT Today R60.0 - Localized edema Coding Level of Care Code Est Pt Level 5 (92364) Diagnoses Dyspnea on exertion R06.09 Dyspnea type: dyspnea on exertion SERA (obstructive sleep apnea) G47.33 Bilateral pulmonary embolism I26.99 Lower extremity edema R60.0 Chronic thromboembolic disease I74.9 Pulmonary hypertension I27.20 Pleurisy with effusion J90 CPT Codes Coding ([id number]) Time Spent (min) 40
[2024-07-12 10:13] VITALS: BP 124/68; PULSE 94; O2SAT 97; BMI 41.6
[2024-07-12 14:31] VITALS: PULSE 100; O2SAT 96
== END 2024-07-12 10:47 | disposition home or self-care (01) ==
LOC: HO.HPS 09:59
PROVIDERS: PCP Internal Medicine; Visit Provider Hospitalist
DX: I26.99 Other pulmonary embolism without acute cor pulmonale (principal); G47.33 Obstructive sleep apnea (adult) (pediatric); R60.0 Localized edema; I27.20 Pulmonary hypertension, unspecified; J90 Pleural effusion, not elsewhere classified
CPT/HCPCS: 94618; 99215

== ENCOUNTER → 2024-07-12 09:58 | Outpatient (BNVA) | payer OTHER, SELFPAY | PROVIDERS: PCP Internal Medicine; Visit Provider Hospitalist | DX: I26.99 Other pulmonary embolism without acute cor pulmonale (principal); I74.9 Embolism and thrombosis of unspecified artery; I27.20 Pulmonary hypertension, unspecified; R06.09 Other forms of dyspnea; G47.33 Obstructive sleep apnea (adult) (pediatric); R60.0 Localized edema; J90 Pleural effusion, not elsewhere classified; Z79.01 Long term (current) use of anticoagulants; Z99.81 Dependence on supplemental oxygen | CPT/HCPCS: 94618; 99212 ==

== ENCOUNTER → 2024-07-14 10:00 | Outpatient (BNV) | payer OTHER, SELFPAY | PROVIDERS: PCP Internal Medicine; Visit Provider Internal Medicine | DX: Z12.31 Encounter for screening mammogram for malignant neoplasm of breast (principal) | CPT/HCPCS: 77063; 77067 ==

== ENCOUNTER 2024-07-14 10:03 | Outpatient (REF) | payer OTHER, SELFPAY ==
--- NOTE | ~2024-07-14 | MM_ITS ---
EXAMINATION: MM SCREENING DIGITAL BREAST TOMOSYNTHESIS, BILATERAL CLINICAL INFORMATION: Screening. Asymptomatic. COMPARISON: Mammography: Comparison is made with available priors TECHNIQUE: Digital breast mammography with tomosynthesis is performed in both the craniocaudal and mediolateral oblique views along with computer-aided detection (CAD). FINDINGS: There are scattered areas of fibroglandular density (ACR BI-RADS breast composition Category b). There are no significant masses, abnormal calcifications, or other abnormalities. MM/MM tomosynthesis screening BI IMPRESSION: No mammographic evidence of malignancy. ASSESSMENT: BI-RADS BI-RADS 1 - Negative RECOMMENDATION: Routine annual mammography screening. 1 year F/U This examination should not preclude the clinical evaluation of a suspicious palpable abnormality. This patient's information was entered into a reminder system with a target due date for their next mammogram. Electronically signed by: Sudha Ritter DO 07/23/2024 12:59 PM JADE
== END 2024-07-14 10:04 | disposition home or self-care (01) ==
LOC: HO.MAMMO 10:03
PROVIDERS: PCP Internal Medicine; Visit Provider Internal Medicine
DX: Z12.31 Encounter for screening mammogram for malignant neoplasm of breast (principal)
CPT/HCPCS: 77063; 77067

== ENCOUNTER 2024-07-14 10:38 | Outpatient (REF) | payer OTHER, SELFPAY ==
--- NOTE | ~2024-07-14 | US_ITS ---
EXAMINATION: US TRIPLEX LOWER EXTREMITY, LEFT CLINICAL INFORMATION: Left lower extremity edema COMPARISON: Venous duplex ultrasound of the left lower extremity dated 02/12/2024 TECHNIQUE: Color-flow triplex imaging with spectral analysis and compression Doppler were performed on the left lower extremity. FINDINGS: Respiratory variation, normal compression and augmented flow are noted throughout the left lower extremity. The visualized common femoral vein, superficial femoral vein, profunda femoral vein, popliteal vein and midcalf peroneal and posterior tibial venous segments show no evidence of deep venous thrombosis. The contralateral right common femoral vein demonstrates normal respiratory variation. There is no Zelaya's cyst. US/US venous duplex LE LT IMPRESSION: No evidence of deep venous thrombosis involving the left lower extremity. Electronically signed by: Olivia Vu MD 07/14/2024 12:21 PM JADE
== END 2024-07-14 10:39 | disposition home or self-care (01) ==
LOC: HO.US 10:38
PROVIDERS: PCP Internal Medicine; Visit Provider Hospitalist
DX: J90 Pleural effusion, not elsewhere classified (principal); R60.0 Localized edema
CPT/HCPCS: 71046; 93971

== ENCOUNTER 2024-07-22 10:19 | Outpatient (AMB) | payer OTHER, SELFPAY ==
[2024-07-22 10:37] LABS: Prothrombin Time Whole Bld POC 23.8 sec (11.1-13.5)
--- NOTE | 2024-07-22 10:43 | MHC.OFFVISCO ---
Intake Intake Visit Reasons: Anticoagulation Allergies lisinopril [LISINOPRIL] Allergy (Severe, Verified 07/22/24 10:26) ANGIOEDEMA dapagliflozin [From FARXIGA] Allergy (Intermediate, Verified 07/22/24 10:26) HIVES liraglutide [From VICTOZA] Allergy (Intermediate, Verified 07/22/24 10:26) RASH metformin [METFORMIN] Allergy (Intermediate, Verified 07/22/24 10:26) GI UPSET erythromycin base [ERYTHROMYCIN BASE] Allergy (Unknown, Verified 07/22/24 10:26) UNKNOWN amitriptyline [AMITRIPTYLINE] Adverse Reaction (Intermediate, Verified 07/22/24 10:26) DRUGGED FEELING Medication List - Last Reconciled 07/22/24 by Francine Mitchell RN acetaminophen ER 650 mg PO Q6H PRN albuterol sulfate 2.5 mg inhalation Q4H PRN albuterol sulfate 90 mcg/actuation (Ventolin HFA) 2 puffs inhalation Q6H PRN blood sugar diagnostic (FreeStyle Lite Strips) As directed ferrous gluconate 324 mg PO DAILY furosemide (Lasix) 20 mg PO DAILY 3 days glimepiride 2 mg PO DAILY levothyroxine 50 mcg PO DAILY metformin 1,000 mg PO BID nebulizers As directed Oxygen Home Use As directed rosuvastatin 10 mg PO BEDTIME sertraline 100 mg PO DAILY sildenafil (pulm.hypertension) 20 mg PO TID 30 days tirzepatide (Mounjaro) 5 mg (0.5 mL) subcut QWEEK warfarin 5 mg See Protocol PO DAILY 30 days Nursing Note INR: 2.0 in therapeutic range of 2-3 Medications and supplements reviewed No changes in health, diet, or supplements, Pt starting on rosuvastatin which has a major effect on INR to raise the level. Has a delayed effect. Denies any signs and symptoms of bleeding or bruising or clotting. Bleeding, bruising, clotting discussed Nutritional guidance given in 4-5 days, pt will start to have more greens. Dose: Same dose of 2.5mg X 6 days and 5mg X 1 day F/U INR: 1 week Patient verbalizes understanding of instructions given Anti-Coag Initial Assessment Social Hx Patient Tobacco Use Status: Never used Tobacco alcohol intake: former Alcohol intake frequency: does not drink Cardiovascular Hx: HTN Lung Disease HX: DVT/PE Endocrine Hx: Thyroid Disease Musculoskeletal Hx: Arthritis Blood Disorder Hx: Anemia and Hyperlipidemia GI Hx: Ulcers, Diverticulosis and Hemorrhoids Hx: Other Neurological Hx: Migraines/Headaches and Other Cancer HX: No Psych. 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
== END 2024-07-22 10:49 | disposition home or self-care (01) ==
LOC: HO.ACS 10:19
PROVIDERS: PCP Internal Medicine; Visit Provider Internal Medicine
DX: Z79.01 Long term (current) use of anticoagulants (principal)

== ENCOUNTER → 2024-07-22 10:19 | Outpatient (BNVA) | payer OTHER, SELFPAY | PROVIDERS: PCP Internal Medicine; Visit Provider Internal Medicine | DX: I26.99 Other pulmonary embolism without acute cor pulmonale (principal); Z79.01 Long term (current) use of anticoagulants; Z51.81 Encounter for therapeutic drug level monitoring | CPT/HCPCS: 85610; 99211 ==

== ENCOUNTER 2024-07-23 13:28 | Outpatient (AMB) | payer OTHER, SELFPAY ==
[2024-07-23 13:31] VITALS: BP 156/62; PULSE 103; BMI 42.4
--- NOTE | 2024-07-23 13:31 | MHC.OFFVIS ---
Vital Signs 07/23/24 13:31 Height 5 ft 5 in Weight 255 lb BMI 42.4 BP 156/62 H Blood Pressure Location Lt brachial Position Sitting Pulse 103 H Pulse Source Pulse Oximeter Intake Visit Reasons: DM/CONFIRMED Intake Note: Patient presents today for D2MT follow up visit. Last Diabetic Eye exam: 06/2023 Last Podiatry Visit: Doesn't have one Random Glucose: 103 mg/dl HgA1c: 5.8% 07/08/24 Rehabilitation Physician Required: No Accompanied by: Self / Same As Patient Allergies lisinopril [LISINOPRIL] Allergy (Severe, Verified 07/23/24 13:45) ANGIOEDEMA dapagliflozin [From FARXIGA] Allergy (Intermediate, Verified 07/23/24 13:45) HIVES liraglutide [From VICTOZA] Allergy (Intermediate, Verified 07/23/24 13:45) RASH metformin [METFORMIN] Allergy (Intermediate, Verified 07/23/24 13:45) GI UPSET erythromycin base [ERYTHROMYCIN BASE] Allergy (Unknown, Verified 07/23/24 13:45) UNKNOWN amitriptyline [AMITRIPTYLINE] Adverse Reaction (Intermediate, Verified 07/23/24 13:45) DRUGGED FEELING Medication List - Last Reconciled 07/23/24 by Deysi Woodward PA-C acetaminophen ER 650 mg PO Q6H PRN albuterol sulfate 2.5 mg inhalation Q4H PRN albuterol sulfate 90 mcg/actuation (Ventolin HFA) 2 puffs inhalation Q6H PRN blood sugar diagnostic (FreeStyle Lite Strips) As directed ferrous gluconate 324 mg PO DAILY furosemide (Lasix) 20 mg PO DAILY 3 days levothyroxine 50 mcg PO DAILY metformin 1,000 mg PO BID nebulizers As directed Oxygen Home Use As directed rosuvastatin 10 mg PO BEDTIME sertraline 100 mg PO DAILY sildenafil (pulm.hypertension) 20 mg PO TID 30 days warfarin 5 mg See Protocol PO DAILY 30 days HPI HPI DM/CONFIRMED: Details: Patient is a 48 year old with type 2 diabetes, history of multinodular goiter, hypertension, hypothyroidism, mixed hyperlipidemia, history of a PE, 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 Endo: Dm- Initially diagnosed with T2DM in >10 yrs . Her A1c is 5.8. She is currently on Mounjaro 5 mg, metformin 1000 mg bid and glimepiride 2 mg. Previous meds: Metformin-GI upset, victoza-?rash, farxiga-hives NO sensor download today Family history of T2DM in paternal grandmother no one else with diabetes . Has eyes checked yearly, last eye exam 06/2023 , denies retinopathy. Denies neuropathy, not sees podiatry. Denies nephropathy, on ASIF/ARB. . Has HLD, on statin. . Denies CAD. Thyroid-s/p right thyroidectomy 02/2024-follicular adenoma-Hurthle cell predominance. On levothyroxine 50 mcg CV: Blood pressure today in the office is 156/62. Believes it was elevated due to stress getting here. She is currently on furosemide 20 mg. Compliant with rosuvastatin 10 mg. She just started this last night. On chronic anticoagulation. [facility] Medical History (Updated 07/23/24 @ 13:37 by Deysi Woodward PA-C) Pleurisy with effusion Pleurisy Pulmonary hypertension Hypercoagulable state Thyroid cancer Chronic thromboembolic disease Lower extremity edema Multinodular thyroid Family history of deep venous thrombosis Pleuritic chest pain Pulmonary emboli Dyspnea Dyspareunia in female Anemia Obstructive sleep apnea Morbid obesity History of COVID-19 (~2020) History of pulmonary embolus (PE) (~2020) Anxiety Chronic headaches Dyspnea on exertion Diabetes type 2, controlled Hypothyroid HTN (hypertension) Hyperlipidemia Surgical History History of angioplasty History of surgery on right wrist History of foot surgery History of tubal ligation History of carpal tunnel surgery History of ERCP History of laparoscopic cholecystectomy History of surgery Family History Father Myocardial infarction COPD (chronic obstructive pulmonary disease) Mother COPD (chronic obstructive pulmonary disease) Brother Colitis Social History (Updated 07/12/24 @ 10:13 by Faye Schaeffer LPN) Housing: House Alcohol intake: former Comment: pt d/c home Patient Tobacco Use Status: Never used Tobacco service: No Current occupational status: employed 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 Vibratory sensation intact bilaterally. Skin intact. General: Yes normal to inspection Results Reviewed Results Reviewed: Laboratory Tests 06/26/23 04/05/24 06/02/24 15:53 20:08 09:04 Sodium Potassium Chloride Carbon Dioxide Anion Gap BUN Creatinine Estimated GFR 49 Random Glucose Estimat Average Glucose Hemoglobin A1c % AST ALT B-Natriuretic Peptide < 10 24 LDL Cholesterol, Calc 57 07/08/24 09:57 Sodium 142 Potassium 4.2 Chloride 105 Carbon Dioxide 26 Anion Gap 15 BUN 13 Creatinine 1.15 Estimated GFR 50 Random Glucose 98 Estimat Average Glucose 120 Hemoglobin A1c % 5.8 AST 20 ALT 15 B-Natriuretic Peptide LDL Cholesterol, Calc Assessment & Plan Assessment & Plan (1) T2DM (type 2 diabetes mellitus): Code(s): E11.9 - Type 2 diabetes mellitus without complications Category: Medical Qualifiers: Diabetes mellitus penitentiary insulin use: without intermodal customer service use Diabetes mellitus complication status: without complication Qualified Code(s): E11.9 - Type 2 diabetes mellitus without complications Plan: I will increase Mounjaro to 7.5 mg weekly. We will discontinue glimepiride. Continue metformin. Follow up in 3 months. Labs prior to appointment. (2) Hyperlipidemia: Code(s): E78.5 - Hyperlipidemia, unspecified Category: Medical Plan: Recently switch to Crestor. Tolerating it well. (3) Thyroid cancer: Code(s): C73 - Malignant neoplasm of thyroid gland Category: Medical Plan: s/p right thyroidectomy this summer. Will follow up with Dr. Lovelace. Orders: Orders Comprehensive Met. Panel Today C73 - Malignant neoplasm of thyroid gland, E11.9 - Type 2 diabetes mellitus without complications, E78.5 - Hyperlipidemia, unspecified Hemoglobin A1c Today C73 - Malignant neoplasm of thyroid gland, E11.9 - Type 2 diabetes mellitus without complications, E78.5 - Hyperlipidemia, unspecified Microalbumin, Random (w Creat) Today C73 - Malignant neoplasm of thyroid gland, E11.9 - Type 2 diabetes mellitus without complications, E78.5 - Hyperlipidemia, unspecified Medications: New tirzepatide (Mounjaro) 7.5 mg (0.5 mL) subcut QWEEK 2 mL 3RF Discontinued tirzepatide (Mounjaro) Discontinued Reason: Doctor's Order 5 mg (0.5 mL) subcut QWEEK 2 mL 4RF Coding Level of Care Code Est Pt Level 4 (90722) Complex EM visit Add On G2211 Diagnoses Type 2 diabetes mellitus without complication, without long-term current use of insulin E11.9 Diabetes mellitus penitentiary insulin use: without intermodal customer service use Diabetes mellitus complication status: without complication Hyperlipidemia E78.5 Thyroid cancer C73
[2024-07-23 13:45] LABS: Glucose, Whole Blood 103 mg/dL (60-115)
== END 2024-07-23 14:01 | disposition home or self-care (01) ==
PROVIDERS: PCP Internal Medicine; Visit Provider Physician Assistant
DX: E11.9 Type 2 diabetes mellitus without complications (principal); E78.5 Hyperlipidemia, unspecified; C73 Malignant neoplasm of thyroid gland

== ENCOUNTER → 2024-07-23 13:28 | Outpatient (BNVA) | payer OTHER, SELFPAY | PROVIDERS: PCP Internal Medicine; Visit Provider Physician Assistant | DX: E11.9 Type 2 diabetes mellitus without complications (principal); E78.5 Hyperlipidemia, unspecified; C73 Malignant neoplasm of thyroid gland | CPT/HCPCS: 82947; 99212 ==

== ENCOUNTER 2024-07-29 10:35 | Outpatient (AMB) | payer OTHER, SELFPAY ==
[2024-07-29 10:49] LABS: Prothrombin Time Whole Bld POC 25.8 sec (11.1-13.5); ~PT, ~INR - Anti Coag Clinic 2.2 (0.9-1.1)
--- NOTE | 2024-07-29 10:50 | MHC.OFFVISCO ---
Intake Intake Visit Reasons: Anticoagulation Allergies lisinopril [LISINOPRIL] Allergy (Severe, Verified 07/29/24 10:44) ANGIOEDEMA dapagliflozin [From FARXIGA] Allergy (Intermediate, Verified 07/29/24 10:44) HIVES liraglutide [From VICTOZA] Allergy (Intermediate, Verified 07/29/24 10:44) RASH metformin [METFORMIN] Allergy (Intermediate, Verified 07/29/24 10:44) GI UPSET erythromycin base [ERYTHROMYCIN BASE] Allergy (Unknown, Verified 07/29/24 10:44) UNKNOWN amitriptyline [AMITRIPTYLINE] Adverse Reaction (Intermediate, Verified 07/29/24 10:44) DRUGGED FEELING Medication List - Last Reconciled 07/29/24 by Francine Mitchell RN acetaminophen ER 650 mg PO Q6H PRN albuterol sulfate 2.5 mg inhalation Q4H PRN albuterol sulfate 90 mcg/actuation (Ventolin HFA) 2 puffs inhalation Q6H PRN blood sugar diagnostic (FreeStyle Lite Strips) As directed ferrous gluconate 324 mg PO DAILY furosemide (Lasix) 20 mg PO DAILY 3 days levothyroxine 50 mcg PO DAILY metformin 1,000 mg PO BID nebulizers As directed Oxygen Home Use As directed rosuvastatin 10 mg PO BEDTIME sertraline 100 mg PO DAILY sildenafil (pulm.hypertension) 20 mg PO TID 30 days tirzepatide (Mounjaro) 7.5 mg (0.5 mL) subcut QWEEK warfarin 5 mg See Protocol PO DAILY 30 days Nursing Note INR: 2.2 in therapeutic range of 2-3 Medications and supplements reviewed No changes in health, diet, medications, or supplements, Denies any signs and symptoms of bleeding or bruising or clotting. Bleeding, bruising, clotting discussed Nutritional guidance given Dose: cont same dose of 2.5mg X 6 days and 5mg X 1 day F/U INR: 5 days. Next week [facility] will be closed on and pt will be here on 08/03 for an echocardiogram so will get her INR checked on that day. There is concern it may go up due to starting Rosuvostatin 07/22/24 which can have a delayed effect to raise the INR. Patient verbalizes understanding of instructions given Anti-Coag Initial Assessment Social Hx Patient Tobacco Use Status: Never used Tobacco alcohol intake: former Alcohol intake frequency: does not drink Cardiovascular Hx: HTN Lung Disease HX: DVT/PE Endocrine Hx: Thyroid Disease Musculoskeletal Hx: Arthritis Blood Disorder Hx: Anemia and Hyperlipidemia GI Hx: Ulcers, Diverticulosis and Hemorrhoids Hx: Other Neurological Hx: Migraines/Headaches and Other Cancer HX: No Psych. 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
== END 2024-07-29 11:01 | disposition home or self-care (01) ==
LOC: HO.ACS 10:35
PROVIDERS: PCP Internal Medicine; Visit Provider Internal Medicine
DX: Z79.01 Long term (current) use of anticoagulants (principal)

== ENCOUNTER → 2024-07-29 10:35 | Outpatient (BNVA) | payer OTHER, SELFPAY | PROVIDERS: PCP Internal Medicine; Visit Provider Internal Medicine | DX: I26.99 Other pulmonary embolism without acute cor pulmonale (principal); Z79.01 Long term (current) use of anticoagulants; Z51.81 Encounter for therapeutic drug level monitoring | CPT/HCPCS: 85610; 99211 ==

== ENCOUNTER → 2024-08-03 07:58 | Outpatient (REF) | payer OTHER, SELFPAY ==
--- NOTE | 2024-08-03 08:01 | CA_ITS ---
Transthoracic Echocardiogram Patient (Last, First, Middle): Domonique Bro S Gender: Female Date of : 1975 Age: 48 Procedure Date: 08/03/2024 Procedure Type: Transthoracic Echocardiogram Location: OP Height: 165. 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 The calculated ejection fraction is 59% by biplane method. - No obvious valvular pathology seen on this study. - There is no evidence of pulmonary hypertension. Findings Left Ventricle Normal left ventricular cavity size. There is normal left ventricular wall thickness. The left ventricular systolic function is normal. The calculated ejection fraction is 59% by biplane method. There is no evidence of regional wall motion abnormalities. Diastolic function is normal for age. Right Ventricle There is normal right ventricular systolic function. Possible right ventricular enlargement, but not well visualized. Atria Both atria are normal in size. Aortic Valve There is a normal trileaflet aortic valve. There is no aortic valve stenosis. There is no aortic valve regurgitation. Mitral Valve The mitral valve appears normal. There is no mitral valve regurgitation. There is no mitral valve stenosis. Pulmonic Valve The pulmonic valve is likely normal. Tricuspid Valve Normal tricuspid valve structure. There is trace tricuspid valve regurgitation. There is no evidence of pulmonary hypertension. Great Vessels The asc aorta is normal in size. Small plaque is seen in the sinuses of Valsalva. Venous The inferior vena cava is normal in size and collapses greater than 50% with inspiration. Pericardium/Pleural There is a trivial pericardial effusion. Prior Study Comparison No significant change compared to prior study dated: 02/26/2024. Recommendations, Care & Conclusions No obvious valvular pathology seen on this study. Measurements 2D Linear Measurements IVSd: 1.01 0.6-0.9/0.6-1.0 cm LVIDd: 3.88 3.9-5.3/4.2-5.9 cm LVIDd Index: 1.79 2.4-3.2/2.2-3.1 cm/m2 LVIDs: 2.59 2.0-3.6 cm LVPWd: 1.33 0.7-1.1 cm LA Diam: 3.70 2.7-3.8/3.0-4.0 cm LAIDs Index: 1.71 1.5-2.3 cm/m2 LV Mass: 189.52 67-162/88-224 g LV Mass Index: 87.34 43-95/49-115 g/m2 LVOT Diam: 2.20 3.0+(-)1.3 cm 2D Systolic Function EF 4C: 61.30 >55% EF 2C: 55.70 >55% EF BiP: 58.70 >55% Mitral Valve MV VTI: 0.16 MV Pk Juvencio: 0.79 MV Mn Juvencio: 0.55 MV Pk Grad: 3.00 MV Mn Grad: 1.00 MV Pk E: 0.69 MV PK A: 0.73 MV Decel Time: 198.00 E/A: 1.00 E'Lateral: 6.64 E'Medial: 6.64 E/E' Med: 10.50 E/E' Lat: 10.50 PHT: 58.00 MVA PHT: 3.79 MVA Continuity: 3.59 Decel [place]: 3.51 Aortic Valve AoV Pk Juvencio: 1.58 AoV Mn Juvencio: 1.12 AoV VTI: 0.27 AoV Pk Grad: 10.00 Aov Mn Grad: 6.00 VINI Cont.VTI: 2.19 LVOT LVOT Pk Juvencio: 1.01 LVOT Mn Juvencio: 0.58 LVOT VTI: 0.15 LVOT Pk Grad: 4.00 LVOT Mn Grad: 2.00 LVOT Diam: 2.20 LVOT Area: 3.80 Diastolic Function MV Pk E: 0.69 MV Pk A: 0.73 E/A: 1.00 E'Medial: 6.64 E/E' Med: 10.50 E' Laterial: 6.64 E/E' Lat: 10.50 Right Ventricle TAPSE (mm): 26.70 TVS' Juvencio: 10.30 Tricuspid Valve TR Pk Juvencio: 2.14 TR Pk Grad: 18.00 RA Press: 3.00 RVSP: 21.00 Great Vessels Aorta Sinus of Valsalva: 3.20 2.0-3.5 cm Ao Asc: 3.30 2.1-3.4 cm Pulmonary Valve PV Pk Juvencio: 1.07 Peak PV Grad: 5.00 Updated in Other Vendor System with Status of Final Olegario Mary MD electronically signed on 08/05/2024 12:00:28 PM with status of Final
== END ==
LOC: HO.CARD 07:58
PROVIDERS: PCP Internal Medicine; Visit Provider Hospitalist
DX: I27.20 Pulmonary hypertension, unspecified (principal); I26.99 Other pulmonary embolism without acute cor pulmonale; Z51.81 Encounter for therapeutic drug level monitoring; Z79.01 Long term (current) use of anticoagulants
CPT/HCPCS: 85610; 93306; 99211

== ENCOUNTER → 2024-08-03 08:01 | Outpatient (BNV) | payer OTHER, SELFPAY | PROVIDERS: PCP Internal Medicine; Visit Provider Internal Medicine | DX: I27.20 Pulmonary hypertension, unspecified (principal) | CPT/HCPCS: 93306 ==

== ENCOUNTER 2024-08-03 08:54 | Outpatient (AMB) | payer OTHER, SELFPAY ==
[2024-08-03 09:23] LABS: Prothrombin Time Whole Bld POC 25.7 sec (11.1-13.5); ~PT, ~INR - Anti Coag Clinic 2.1 (0.9-1.1)
--- NOTE | 2024-08-03 09:25 | MHC.OFFVISCO ---
Intake Intake Visit Reasons: Anticoagulation Allergies lisinopril [LISINOPRIL] Allergy (Severe, Verified 08/03/24 09:12) ANGIOEDEMA dapagliflozin [From FARXIGA] Allergy (Intermediate, Verified 08/03/24 09:12) HIVES liraglutide [From VICTOZA] Allergy (Intermediate, Verified 08/03/24 09:12) RASH metformin [METFORMIN] Allergy (Intermediate, Verified 08/03/24 09:12) GI UPSET erythromycin base [ERYTHROMYCIN BASE] Allergy (Unknown, Verified 08/03/24 09:12) UNKNOWN amitriptyline [AMITRIPTYLINE] Adverse Reaction (Intermediate, Verified 08/03/24 09:12) DRUGGED FEELING Medication List - Last Reconciled 08/03/24 by Francine Mitchell RN acetaminophen ER 650 mg PO Q6H PRN albuterol sulfate 2.5 mg inhalation Q4H PRN albuterol sulfate 90 mcg/actuation (Ventolin HFA) 2 puffs inhalation Q6H PRN blood sugar diagnostic (FreeStyle Lite Strips) As directed ferrous gluconate 324 mg PO DAILY furosemide (Lasix) 20 mg PO DAILY 3 days levothyroxine 50 mcg PO DAILY metformin 1,000 mg PO BID nebulizers As directed Oxygen Home Use As directed rosuvastatin 10 mg PO BEDTIME sertraline 100 mg PO DAILY sildenafil (pulm.hypertension) 20 mg PO TID 30 days tirzepatide (Mounjaro) 7.5 mg (0.5 mL) subcut QWEEK warfarin 5 mg See Protocol PO DAILY 30 days Nursing Note INR: 2.1 in therapeutic range of 2-3 Medications and supplements reviewed No changes in health, diet, medications, or supplements, Denies any signs and symptoms of bleeding or bruising or clotting. Bleeding, bruising, clotting discussed Nutritional guidance given Dose: 2.5mg X 6 days and 5mg X 1 day F/U INR: 1 week Patient verbalizes understanding of instructions given Anti-Coag Initial Assessment Social Hx Patient Tobacco Use Status: Never used Tobacco alcohol intake: former Alcohol intake frequency: does not drink Cardiovascular Hx: HTN Lung Disease HX: DVT/PE Endocrine Hx: Thyroid Disease Musculoskeletal Hx: Arthritis Blood Disorder Hx: Anemia and Hyperlipidemia GI Hx: Ulcers, Diverticulosis and Hemorrhoids Hx: Other Neurological Hx: Migraines/Headaches and Other Cancer HX: No Psych. 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
== END 2024-08-03 09:26 | disposition home or self-care (01) ==
LOC: HO.ACS 08:54
PROVIDERS: PCP Internal Medicine; Visit Provider Internal Medicine
DX: Z79.01 Long term (current) use of anticoagulants (principal)

== ENCOUNTER → 2024-08-10 08:57 | Outpatient (BNVA) | payer OTHER, SELFPAY | PROVIDERS: PCP Internal Medicine; Visit Provider Internal Medicine | DX: I26.99 Other pulmonary embolism without acute cor pulmonale (principal); Z79.01 Long term (current) use of anticoagulants; Z51.81 Encounter for therapeutic drug level monitoring | CPT/HCPCS: 85610; 99211 ==

== ENCOUNTER 2024-08-10 09:09 | Outpatient (AMB) | payer OTHER, SELFPAY ==
[2024-08-10 09:16] LABS: Prothrombin Time Whole Bld POC 35.8 sec (11.1-13.5)
--- NOTE | 2024-08-10 09:22 | MHC.OFFVISCO ---
Intake Intake Visit Reasons: Anticoagulation Allergies lisinopril [LISINOPRIL] Allergy (Severe, Verified 08/10/24 09:10) ANGIOEDEMA dapagliflozin [From FARXIGA] Allergy (Intermediate, Verified 08/10/24 09:10) HIVES liraglutide [From VICTOZA] Allergy (Intermediate, Verified 08/10/24 09:10) RASH metformin [METFORMIN] Allergy (Intermediate, Verified 08/10/24 09:10) GI UPSET erythromycin base [ERYTHROMYCIN BASE] Allergy (Unknown, Verified 08/10/24 09:10) UNKNOWN amitriptyline [AMITRIPTYLINE] Adverse Reaction (Intermediate, Verified 08/10/24 09:10) DRUGGED FEELING Medication List - Last Reconciled 08/10/24 by Francine Mitchell RN acetaminophen ER 650 mg PO Q6H PRN albuterol sulfate 2.5 mg inhalation Q4H PRN albuterol sulfate 90 mcg/actuation (Ventolin HFA) 2 puffs inhalation Q6H PRN blood sugar diagnostic (FreeStyle Lite Strips) As directed ferrous gluconate 324 mg PO DAILY furosemide (Lasix) 20 mg PO DAILY 3 days levothyroxine 50 mcg PO DAILY metformin 1,000 mg PO BID nebulizers As directed Oxygen Home Use As directed rosuvastatin 10 mg PO BEDTIME sertraline 100 mg PO DAILY sildenafil (pulm.hypertension) 20 mg PO TID 30 days tirzepatide (Mounjaro) 7.5 mg (0.5 mL) subcut QWEEK warfarin 5 mg See Protocol PO DAILY 30 days Nursing Note INR: 3.0 in therapeutic range of 2-3 Medications and supplements reviewed No changes in health, diet, medications, or supplements, Denies any signs and symptoms of bleeding or bruising or clotting. Bleeding, bruising, clotting discussed Nutritional guidance given to have a serving of greens today Dose: 2.5mg X 6 days and 5 mg X 1 day F/U INR: 2 weeks Patient verbalizes understanding of instructions given Anti-Coag Initial Assessment Social Hx Patient Tobacco Use Status: Never used Tobacco alcohol intake: former Alcohol intake frequency: does not drink Cardiovascular Hx: HTN Lung Disease HX: DVT/PE Endocrine Hx: Thyroid Disease Musculoskeletal Hx: Arthritis Blood Disorder Hx: Anemia and Hyperlipidemia GI Hx: Ulcers, Diverticulosis and Hemorrhoids Hx: Other Neurological Hx: Migraines/Headaches and Other Cancer HX: No Psych. 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
== END 2024-08-10 09:25 | disposition home or self-care (01) ==
PROVIDERS: PCP Internal Medicine; Visit Provider Internal Medicine
DX: Z79.01 Long term (current) use of anticoagulants (principal)

== ENCOUNTER 2024-08-27 09:43 | Outpatient (AMB) | payer OTHER, SELFPAY ==
--- OUTSIDE RECORDS SUMMARY | 2024-08-27 09:46 | XMS_ITS ---
Author Organization Dario Urbano III, MD Address [address] [place] [address] Care Team Providers Care Printer Helper Name Role Phone Jacinta ANGULO, Deena Primary Care Provider Dario Slater [phone] REASON FOR VISIT Follow-up Encounters Encounter Location Date Provider Diagnosis Dario Urbano III, MD [address] [place] [address] [place] [address] 09/09/2023 Dario Urbano Plan Of Treatment Next Appt Details Provider Name:Dario Urbano, 09/29/2024 02:00:00 PM, [address] [place] [address] [place], [id number], Progress Notes * TYRELL Domonique SDOB:1975 (49 yo F)Acc No.[id number]:09/09/2023 Progress Notes Patient:?Domonique SANTILLAN Provider:?Dario Urbano MD :1975???Age:48 Y???Sex:Female D ate:09/09/2023 Address: [address] [id number] Pcp:Deena Workman MD Subjective: * Chief Complaints: * ???1. Follow-up. * HPI: ???COVID-19 Screening:?Questions?Have you had any new onset fever, chills, cough, congestion, sore throat, shortness of breath, muscle aches??No ?Have you been exposed to the virus within the last 10 days??No ?Have you travelled internationally in the last 10 days??No ?Have you been exposed to COVID-19 in the past??No * ROS:?General/Constitutional:?pain?only normal aches and pains.?Chills?denies.?Fatigue?admits.?Fever?denies.?ENT:?Decreased hearing?denies.?Respiratory:?Cough?denies.?Cardiovascular:?Chest pain with exertion?denies.?Dyspnea on exertion?denies.?Shortness of breath?denies.?Gastrointestinal:?Constipation?denies.?Decreased appetite?denies.?Diarrhea?denies.?Heartburn?denies.?Nausea?denies.?Rectal bleeding?denies.?Vomiting?denies.?Hematology:?bruising?denies.?petechiae?denies.?Swollen glands?none have been noted.?Genitourinary:?Frequent urination?denies.?Musculoskeletal:?Muscle aches?denies.?Painful joints?denies.?Sciatica?denies.?Weakness?denies.?Skin:?Itching?denies.?Rash?denies.?Skin lesion(s)?denies.?Neurologic:?Difficulty speaking?denies.?Dizziness?denies.?Headache?denies.?Low back pain?denies.?Psychiatric:?Depressed mood?denies.? * Medical History:? Objective: * Vitals:? * Examination: ???General Examination: ?GENERAL APPEARANCE:?pleasant, well nourished, well developed, in no acute distress, calm and relaxed.?HEAD:?atraumatic, normocephalic.?EYES:?eomi, perrla, anicteric, conjugate.?EARS:?normal.?NOSE:?septum intact.?ORAL CAVITY:?normal, unremarkable.?NECK/THYROID:?no jugular venous distention, no carotid bruit, thyroid normal.?LYMPH NODES:?no enlarged lymph nodes,spleen normal.?SKIN:?no suspicious lesions, anicteric.?HEART:?no clicks, gallops, murmurs, or rubs, regular rhythm, S1, S2 normal, no s3, or vascular bruits.?LUNGS:?clear to auscultation .?BREASTS:??no masses palpable bilaterally.?ABDOMEN:?bowel sounds normal, no ascites, no organomegaly, no mass.?RECTAL EXAM:?not examined.?MUSCULOSKELETAL:?extremities unremarkable, no clubbing, cyanosis or edema.?PERIPHERAL PULSES:?normal.?NEUROLOGIC:?alert and oriented, cranial nerves 2-12 grossly intact, deep tendon reflexes 2+ symmetrical, motor strength normal upper and lower extremities, sensory exam intact.?PSYCH:?alert, oriented.? Assessment: Plan: * Treatment: * Images: * The named appointment provid er may or may not be the originator of this progress note, and it is not deemed complete until electronically signed by the appointment provider. Sign off status: Pending * Provider:?Dario Urbano MD Date:?10/2023 Generated for Satish lai/Nettie/eTransmitting on:?08/27/2024 09:46 AM EST History and Physical Notes * HPI (History of Present Illness) Category Sub-Category Detail Notes COVID-19 Screening Questions Have you had any new onset fever, chills, cough, congestion, sore throat, shortness of breath, muscle aches?: No Have you been exposed to the virus withi n the last 10 days?: No Have you travelled internationally in [facility] last 10 days?: No Have you been exposed to COVID-19 in the past?: No Examination Category Sub-Category Detail Notes General Examination GENERAL APPEARANCE: pleasant , well nourished, well developed, in no acute distress, calm and relaxed HEAD: atraumatic, normocep halic EYES: eomi, perrla, anicte amol, conjugate EARS: normal NOSE: septum intact NECK/THYROID: no jugular venous di stention, no carotid bruit, thyroid normal HEART: no clicks, gallops, murmurs, or rubs, regular rhythm, S1, S2 normal, no s3, or vascular bruits LUNGS: clear to auscultatio n ABDOMEN: bowel sounds normal, no ascites, no organomegaly, no mass NEUROLOGIC: alert and oriented, cranial nerves 2-12 grossly intact, deep tendon reflexes 2+ symmetrical, motor strength normal upper and lower extremities, sensory exam intact SKIN: no suspicious lesion s, anicteric PERIPHERAL PULSES: normal BREASTS: no masses palpable b ilaterally MUSCULOSKELETAL: extremities unremark able, no clubbing, cyanosis or edema LYMPH NODES: no enlarged lymph no hugo,spleen normal RECTAL EXAM: not examined PSYCH: alert, oriented ORAL CAVITY: normal, unremarkable
--- OUTSIDE RECORDS SUMMARY | 2024-08-27 09:46 | XMS_ITS ---
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 Name Role Phone Jacinta ANGULO, [facility] Primary Care Provider Dario Slater [phone] Allergies Allergen (clinical drug ingredient) Drug/Non Drug Allergy documented on EMR Reaction Allergy Type Onset Date Status dapagliflozin Farxiga UTI Drug Allergy Act wiley liraglutide Victoza NAUSEA Drug Allergy Activ e metformin Metformin HCl GI UPSET Drug Allergy Act wiley lisinopril Lisinopril ANGIOEDEMA Drug Allergy Acti ve erythromycin Erythromycin HIVES Drug Allergy A ctive amitriptyline Amitriptyline HCl DRUGGED FEELING Drug Allergy Active REASON FOR VISIT Vitamin B12 deficiency, Iron deficiency, Thrombophilia, History of pulmonary embolism, Diabetes, Morbid obesity Medications Medication SIG (Take, Route, Frequency, Duration) Notes Start Date End Date Status Ferrous Sulfate 325 (65 Fe) MG TAKE 1 TA BLET BY MOUTH EVERY DAY FOR 30 DAYS Active hydroCHLOROthiazide 25 MG 1 tablet in th e morning Orally Once a day Active B-12 1000 MCG 1 tablet Orally Once a day Active Loperamide HCl 2 MG 1 capsule as needed Orally Active Warfarin Sodium (5 MG) 5 MG 1 tablet Ora lly Once a day Active Amaryl 4 MG 1 tablet with breakfast or the first main meal of the day Orally Once a day Active Valsartan 320 MG 1 tablet Orally Once a day Active Atorvastatin Calcium 20 MG 1 tablet Oral ly Once a day Active Levothyroxine Sodium 50 MCG 1 tablet on an empty stomach in the morning Orally Once a day Active Mounjaro 2.5 MG/0.5ML as directed Subcutaneous Active metFORMIN HCl 500 MG 2 tablet with a khadar l Orally twice a day Active Social History Tobacco Use: Social History Observation Description Date Details (start date - stop date) Never Smoker NA - NA Tobacco Use/Smoking Question Answer Notes Patient is a nonsmoker Additional Findings: Tobacco Non-User Aggressive non-smoker Vital Signs Temperature 97.7 degrees Fahrenheit 09/29/19 24 Heart Rate 99 /min 09/29/2023 Height 64 in 09/29/2023 Weight 302 lbs 09/29/2023 BMI 51.83 kg/m2 09/29/2023 Encounters Encounter Location Date Provider Diagnosis Dario Urbano III, MD [address] [place] [address] [place] [address] 09/29/2023 Dario Urbano Morbid obesity E66.0 1 ; Dysthymic disorder F34.1 ; Adult onset diabetes mellitus with ketoacidosis E11.10 ; Thrombophilia D68.59 ; Vitamin B 12 deficiency E53.8 ; Iron deficiency anemia, unspecified iron deficiency anemia type D50.9 ; Acquired hypothyroidism E03.9 and Pulmonary embolism, unspecified chronicity, unspecified pulmonary embolism type, unspecified whether acute cor pulmonale present I26.99 Assessments Encounter Date Diagnosis (ICD Code) Assessment Notes Treat ment Notes Treatment Clinical Notes 09/29/2023 Morbid obesity (ICD-10 - E66.01) We discussed diet and nutrition. I recommended aggressive weight loss. I recommended she consider the weight loss surgery program at [facility]. She has gained 10 pounds since her last visit. 09/29/2023 Dysthymic disorder (ICD-10 - F34.1) Her depression is mild and I will recommend no change in her current medications. 09/29/2023 Adult onset diabetes mellitus with ketoacidosis (ICD-10 - E11.10) She has been compliant with her medications, which are prescribed by primary care. 09/29/2023 Thrombophilia (ICD-10 - D68.59) She has a thrombophilia in view of the positive factor V Leiden. Because of multiple pulmonary emboli. I have recommended indefinite anticoagulation. She is agreeable to this. 09/29/2023 Vitamin B 12 deficiency (ICD-10 - E53.8) A B12 level is not available at this time. She was continued on current therapy and the value will be followed. 09/29/2023 Iron deficiency anemia, unspecified iron deficiency anemia type (ICD-10 - D50.9) Her mean cell volume is 77 and her ferritin is 20. Her iron was resumed. She was given a followup visit after more blood work. 09/29/2023 Acquired hypothyroidism (ICD-10 - E03.9) She says is her control panel builder was going to put her on thyroid replacement. 09/29/2023 Pulmonary embolism, unspecified chronicity, unspecified pulmonary embolism type, unspecified whether acute cor pulmonale present (ICD-10 - I26.99) She was breathing comfortably today and has had no further episodes of dizziness or arterial thromboembolism. She had multiple pulmonary emboli/2022.These have caused dyspnea with exertion and she is undergoing a series of pulmonary artery angioplasties at the [facility] the next of which will be in August2023. Plan Of Treatment Medication Medication Name Sig Start Date Stop Date Notes Ferrous Sulfate 325 (65 Fe) MG TAKE 1 TA BLET BY MOUTH EVERY DAY FOR 30 DAYS hydroCHLOROthiazide 25 MG 1 tablet in th e morning Orally Once a day B-12 1000 MCG 1 tablet Orally Once a day Loperamide HCl 2 MG 1 capsule as needed Orally Warfarin Sodium (5 MG) 5 MG 1 tablet Orally Once a day Amaryl 4 MG 1 tablet with breakf ast or the first main meal of the day Orally Once a day Valsartan 320 MG 1 tablet Orally Once a day Atorvastatin Calcium 20 MG 1 tablet Orally Once a day Levothyroxine Sodium 50 MCG 1 tablet on an empty stomach in the morning Orally Once a day Mounjaro 2.5 MG/0.5ML as directed Subcutaneous metFORMIN HCl 500 MG 2 tablet with a khadar l Orally twice a day Next Appt Details Follow Up: 1 Year, Reason: O V Provider Name:Dario Urbano, 09/29/2024 02:00:00 PM, [address] [place] [address] [address] [address], [place], [address], Progress Notes * Domonique SANTILLAN SDOB:1975 (48 yo F)Acc No.[id number]:09/29/2023 Progress Notes Patient:?Santillan, Domonique S Provider:?Dario Urbano MD :1975???Age:48 Y???Sex:Female D ate:09/29/2023 Address:[address] [place] [address] [id number] Pcp:Deena Workman MD Subjective: * Chief Complaints: * ???Vitamin B12 deficiencyIro n deficiencyThrombophiliaHistory of pulmonary embolismDiabetesMorbid obesity * HPI: ???COVID-19 Screening:?Questions?Have you experienced fever, chills, cough, sore throat, shortness of breath, difficulty breathing, muscle aches, loss of taste or smell??No ?Have you been exposed to the virus within the last 10 days??No ?Have you travelled internationally in the last 10 days??No ?Have you been exposed to COVID-19 in the past??Yes ? She returns for management of her vitamin B12 and iron deficiency and her thrommbophilia with a history of pulmonary embolism. She has had no additional blood clots. She has been on metformin for 1 year and is now on Monjaro injections. She feels healthy and well today.She is anticoagulated and has had no bleeding. Blood work done September 25, 2023 showed white count 10.9, hematocrit 34.7 in cell volume 74.1, platelets 125, glucose 141, BUN 22, creatinine 1.39, hemoglobin A1c 7.7. * ROS:?General/Constitutional:?pain?only normal aches and pains.?Chills?denies.?Fatigue?admits.?Fever?denies.?ENT:?Decreased hearing?denies.?Respiratory:?Cough?denies.?Cardiovascular:?Chest pain with exertion?denies.?Dyspnea on exertion?denies.?Shortness of breath?denies.?Gastrointestinal:?Constipation?occasional.?Decreased appetite?denies.?Diarrhea?denies.?Heartburn?occasional.?Nausea?denies.?Rectal bleeding?denies.?Vomiting?denies.?Hematology:?bruising?denies.?petechiae?denies.?Swollen glands?none have been noted.?Genitourinary:?Frequent urination?at night.?Musculoskeletal:?Muscle aches?denies.?Painful joints?denies.?Sciatica?denies.?Weakness?denies.?Skin:?Itching?denies.?Rash?denies.?Skin lesion(s)?denies.?Neurologic:?Difficulty speaking?denies.?Dizziness?denies.?Headache?denies.?Low back pain?denies.?Psychiatric:?Depressed mood?denies.? * Medical History:? * Surgical History:?left foot fasciotomy 2004right hand carpatunel 2017laparoscopic cholecystectomy 2002gravida 6 left wrist carpal tunnel 04/2018tendonitis right hand lood clots in lungs angioplasty in July2023 and 08/2023 * Hospitalization/Major Diagno stic Procedure:?COVID 10/2020 * Family History:?Father: dece ased 55 yrs, COPD, myocardial infarction, diagnosed with CVD.?Mother: 61 yrs, COPD, chronic kidney disease, diagnosed with CVD.?3 brother(s) - healthy. 1 daughter(s) - healthy. .? Her siblings are healthy and well. There is no family history of inherited cancer. * Social History:?Tobacco Use:?Tobacco Use/Smoking?Patient is a?nonsmoker ?Additional Findings: Tobacco Non-User?Aggressive non-smoker * Medications:?TakingMounjaro 2.5 MG/0.5ML Solution Pen-injector as directed Subcutaneous metFORMIN HCl 500 MG Tablet 2 tablet with a meal Orally twice a dayWarfarin Sodium (5 MG) 5 MG Tablet 1 tablet Orally Once a dayValsartan 320 MG Tablet 1 tablet Orally Once a dayAmaryl 4 MG Tablet 1 tablet with breakfast or the first main meal of the day Orally Once a dayAtorvastatin Calcium 20 MG Tablet 1 tablet Orally Once a dayLevothyroxine Sodium 50 MCG Tablet 1 tablet on an empty stomach in the morning Orally Once a dayhydroCHLOROthiazide 25 MG Tablet 1 tablet in the morning Orally Once a dayLoperamide HCl 2 MG Capsule 1 capsule as needed Orally B-12 1000 MCG Tablet 1 tablet Orally Once a dayFerrous Sulfate 325 (65 Fe) MG Tablet TAKE 1 TABLET BY MOUTH EVERY DAY FOR 30 DAYS Taking Mounjaro 2.5 MG/0.5ML Solution Pen-injector as directed Subcutaneous Taking metFORMIN HCl 500 MG Tablet 2 tablet with a meal Orally twice a dayTaking Warfarin Sodium (5 MG) 5 MG Tablet 1 tablet Orally Once a dayTaking Valsartan 320 MG Tablet 1 tablet Orally Once a dayTaking Amaryl 4 MG Tablet 1 tablet with breakfast or the first main meal of the day Orally Once a dayTaking Atorvastatin Calcium 20 MG Tablet 1 tablet Orally Once a dayTaking Levothyroxine Sodium 50 MCG Tablet 1 tablet on an empty stomach in the morning Orally Once a dayTaking hydroCHLOROthiazide 25 MG Tablet 1 tablet in the morning Orally Once a dayTaking Loperamide HCl 2 MG Capsule 1 capsule as needed Orally Taking B-12 1000 MCG Tablet 1 tablet Orally Once a dayTaking Ferrous Sulfate 325 (65 Fe) MG Tablet TAKE 1 TABLET BY MOUTH EVERY DAY FOR 30 DAYS DiscontinuedJanumet XR 50-1000 MG Tablet Extended Release 24 Hour 1 tablet with evening meal Orally Once a dayMedication List reviewed and reconciled with the patientDiscontinued Janumet XR 50-1000 MG Tablet Extended Release 24 Hour 1 tablet with evening meal Orally Once a dayMedication List reviewed and reconciled with the patient * Allergies:?Farxiga: UTIAmitr iptyline HCl: DRUGGED FEELINGMetformin HCl: GI UPSETVictoza: NAUSEALisinopril: ANGIOEDEMAErythromycin: HIVESno[Allergies Verified] Objective: * Vitals:?Ht: 64, Wt:302, BMI: 51.83, HR:99, Temp:97.7. * Examination: ???General Examination: ?GENERAL APPEARANCE:?pleasant, well nourished, well developed, in no acute distress, calm and relaxed , morbidly obese , woman.?HEAD:?atraumatic, normocephalic.?EYES:?eomi, perrla, anicteric, conjugate.?EARS:?normal.?NOSE:?septum intact.?ORAL CAVITY:?normal, unremarkable.?NECK/THYROID:?no jugular venous distention, no carotid bruit, thyroid normal.?LYMPH NODES:?no enlarged lymph nodes,spleen normal.?SKIN:?no suspicious lesions, anicteric.?HEART:?no clicks, gallops, murmurs, or rubs, regular rhythm, S1, S2 normal, no s3, or vascular bruits.?LUNGS:?clear to auscultation .?BREASTS:?not examined.?ABDOMEN:?bowel sounds normal, no ascites, no organomegaly, no mass , morbid obesity.?RECTAL EXAM:?not examined.?MUSCULOSKELETAL:?extremities unremarkable, no clubbing, cyanosis or edema.?PERIPHERAL PULSES:?normal.?NEUROLOGIC:?alert and oriented, cranial nerves 2-12 grossly intact, deep tendon reflexes 2+ symmetrical, motor strength normal upper and lower extremities, sensory exam intact.?PSYCH:?alert, oriented.? Assessment: * Assessment: 1.?Morbid obesity - E66.01 ( Primary), We discussed diet and nutrition. I recommended aggressive weight loss. I recommended she consider the weight loss surgery program at [facility]. She has gained 10 pounds since her last visit.?2.?Dysthymic disorder - F34.1, Her depression is mild and I will recommend no change in her current medications.?3.?Adult onset diabetes mellitus with ketoacidosis - E11.10, She has been compliant with her medications, which are prescribed by primary care.?4.?Thrombophilia - D68.59, She has a thrombophilia in view of the positive factor V Leiden. Because of multiple pulmonary emboli. I have recommended indefinite anticoagulation. She is agreeable to this.?5.?Vitamin B 12 deficiency - E53.8, A B12 level is not available at this time. She was continued on current therapy and the value will be followed.?6.?Iron deficiency anemia, unspecified iron deficiency anemia type - D50.9, Her mean cell volume is 77 and her ferritin is 20. Her iron was resumed. She was given a followup visit after more blood work.?7.?Acquired hypothyroidism - E03.9, She says is her control panel builder was going to put her on thyroid replacement.?8.?Pulmonary embolism, unspecified chronicity, unspecified pulmonary embolism type, unspecified whether acute cor pulmonale present - I26.99, She was breathing comfortably today and has had no further episodes of dizziness or arterial thromboembolism. She had multiple pulmonary emboli/2022.These have caused dyspnea with exertion and she is undergoing a series of pulmonary artery angioplasties at the [facility] the next of which will be in August2023.? Plan: * Treatment: * Procedure Codes:? * Preventive Medicine:? ??Counseling:?Care goal follow-up plan:?Counseling for abnormal BMI given?Yes ?Above Normal BMI Follow-up?Dietary management education, guidance, and counseling, Dietary needs education, Exercise promotion: strength training, Exercise promotion: stretching, Feeding regime, Giving encouragement to exercise, Lifestyle education regarding diet, Nutrition / feeding management, Nutrition therapy, Prescribed activity/exercise education, Prescribed diet education, Prescribed dietary intake, Special diet education, Weight monitoring , Intervention, Order not done: Medical or Other reason not done * Follow Up:?1 Year (Reason: O V) * Images: * Sign off status: Completed true * Provider:?Dario Urbano MD Date:?09/09 Generated for Printi ng/Nettie/eTransmitting on:?08/27/2024 09:46 AM EST History and Physical Notes * HPI (History of Present Illness) Category Sub-Category Detail Notes COVID-19 Screening Questions Have you had any new onset fever, chills, cough, congestion, sore throat, shortness of breath, muscle aches?: No Have you been exposed to the virus withi n the last 10 days?: No Have you travelled internationally in [facility] last 10 days?: No Have you been exposed to COVID-19 in the past?: Yes Examination Category Sub-Category Detail Notes General Examination GENERAL APPEARANCE: pleasant , well nourished, well developed, in no acute distress, calm and relaxed , morbidly obese , woman HEAD: atraumatic, normocep halic EYES: eomi, perrla, anicte amol, conjugate EARS: normal NOSE: septum intact NECK/THYROID: no jugular venous di stention, no carotid bruit, thyroid normal HEART: no clicks, gallops, murmurs, or rubs, regular rhythm, S1, S2 normal, no s3, or vascular bruits LUNGS: clear to auscultatio n ABDOMEN: bowel sounds normal, no ascites, no organomegaly, no mass , morbid obesity NEUROLOGIC: alert and oriented, cranial nerves 2-12 grossly intact, deep tendon reflexes 2+ symmetrical, motor strength normal upper and lower extremities, sensory exam intact SKIN: no suspicious lesion s, anicteric PERIPHERAL PULSES: normal BREASTS: not examined MUSCULOSKELETAL: extremities unremark able, no clubbing, cyanosis or edema LYMPH NODES: no enlarged lymph no hugo,spleen normal RECTAL EXAM: not examined PSYCH: alert, oriented ORAL CAVITY: normal, unremarkable
--- OUTSIDE RECORDS SUMMARY | 2024-08-27 09:46 | XMS_ITS ---
Author Organization Dario Urbano III, MD Address [address] [place] [address] Care Team Providers Care Emergency Medicine Name Role Phone Jacinta ANGULO, [facility] Primary Care Provider Dario Slater [phone] Allergies Allergen (clinical drug ingredient) Drug/Non Drug [...] FEELING Drug Allergy Active REASON FOR VISIT hurtle cell tumor, right mid thyroid, Diabetes mellitus, Hypothyroid, Morbid obesity, Iron deficiency, B12 deficiency, Pulmonary emboli requiring a series of angioplasties, Factor V Leiden mutation Medications Medication SIG (Take, Route, Frequency, Duration) Notes Start Date End Date Status Levothyroxine Sodium 50 MCG 1 tablet on an empty stomach in the morning Orally Once a day Active hydroCHLOROthiazide 25 MG 1 tablet in th e morning Orally Once a day Active Atorvastatin Calcium 20 MG 1 tablet Oral ly Once a day Active Janumet XR 50-1000 MG 1 tablet with even ing meal Orally Once a day Active Loperamide HCl 2 MG 1 capsule as needed Orally Active Amaryl 4 MG 1 tablet with breakfast or the first main meal of the day Orally Once a day Active Ferrous Sulfate 325 (65 Fe) MG TAKE 1 TA BLET BY MOUTH EVERY DAY FOR 30 DAYS Active B-12 1000 MCG 1 tablet Orally Once a day Active Warfarin Sodium (5 MG) 5 MG 1 tablet Ora lly Once a day Active Valsartan 320 MG 1 tablet Orally Once a day Active Social History Tobacco Use: Social History Observation Description Date Details (start date - stop date) Never Smoker NA - NA Tobacco Use/Smoking Question Answer Notes Patient is a nonsmoker Additional Findings: Tobacco Non-User Aggressive non-smoker Encounters Encounter Location Date Provider Diagnosis Dario Urbano III, MD [address] [place] [address] [place] [address] 08/08/2023 Dario Urbano Iron deficiency anem ia, unspecified iron deficiency anemia type D50.9 ; Vitamin B 12 deficiency E53.8 ; Acquired hypothyroidism E03.9 ; Adult onset diabetes mellitus with ketoacidosis E11.10 ; Morbid obesity E66.01 ; Pulmonary embolism, unspecified chronicity, unspecified pulmonary embolism type, unspecified whether acute cor pulmonale present I26.99 ; Thrombophilia D68.59 and Hurthle cell adenocarcinoma C73 Assessments Encounter Date Diagnosis (ICD Code) Assessment Notes Treat ment Notes Treatment Clinical Notes 08/08/2023 Iron deficiency anemia, unspecified iron deficiency anemia type (ICD-10 - D50.9) Her mean cell volume is 77 and her ferritin is 20. Her iron was resumed. She was given a followup visit after more blood work. 08/08/2023 Vitamin B 12 deficiency (ICD-10 - E53.8) A B12 level is not available at this time. She was continued on current therapy and the value will be followed. 08/08/2023 Acquired hypothyroidism (ICD-10 - E03.9) She says is her servomechanism designer was going to put her on thyroid replacement. 08/08/2023 Adult onset diabetes mellitus with ketoacidosis (ICD-10 - E11.10) She has been compliant with her medications, which are prescribed by primary care. 08/08/2023 Morbid obesity (ICD-10 - E66.01) We discussed diet and nutrition. I recommended aggressive weight loss. I recommended she consider the weight loss surgery program at [facility]. She has gained 10 pounds since her last visit. 08/08/2023 Pulmonary embolism, unspecified chronicity, unspecified pulmonary embolism type, unspecified whether acute cor pulmonale present (ICD-10 - I26.99) She was breathing comfortably today and has had no further episodes of dizziness or arterial thromboembolism. She had multiple pulmonary emboli/2022.These have caused dyspnea with exertion and she is undergoing a series of pulmonary artery angioplasties at the [facility] the next of which will be in August2023. 08/08/2023 Thrombophilia (ICD-10 - D68.59) She has a thrombophilia in view of the positive factor V Leiden. Because of multiple pulmonary emboli. I have recommended indefinite anticoagulation. She is agreeable to this. 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 Endocrinnology has not yet addressed this issue to my knowledge. This will be discussed. Plan Of Treatment Medication Medication Name Sig Start Date Stop Date Notes Levothyroxine Sodium 50 MCG 1 tablet on an empty stomach in the morning Orally Once a day hydroCHLOROthiazide 25 MG 1 tablet in th e morning Orally Once a day Atorvastatin Calcium 20 MG 1 tablet Orally Once a day Janumet XR 50-1000 MG 1 tablet with even ing meal Orally Once a day Loperamide HCl 2 MG 1 capsule as needed Orally Amaryl 4 MG 1 tablet with breakf ast or the first main meal of the day Orally Once a day Ferrous Sulfate 325 (65 Fe) MG TAKE 1 TA BLET BY MOUTH EVERY DAY FOR 30 DAYS B-12 1000 MCG 1 tablet Orally Once a day Warfarin Sodium (5 MG) 5 MG 1 tablet Orally Once a day Valsartan 320 MG 1 tablet Orally Once a day Next Appt Details Follow Up: 4 Weeks, Reason: OV Provider Name:Dario Urbano, 09/29/2024 02:00:00 PM, [address] [place] [address], [place] [address], [place], [address], Progress Notes * Domonique SANTILLAN SDOB:1975 (47 yo F)Acc No.[id number]:08/08/2023 Patient:?Domonique Santillan S Provider:?Dario Urbano MD :1975???Age:47 Y???Sex:Female D ate:08/08/2023 Address[address] [id number] Pcp:Deena Workman MD Subjective: * Chief Complaints: * ???Hurtle cell tumor, right mid thyroidDiabetes mellitusHypothyroidMorbid obesityIron dzzjlofxggM77 deficiencyPulmonary emboli requiring a series of angioplastiesFactor V Leiden mutation * HPI: ???:?Telehealth?Location of provider rendering services:?{...} [address] [place] [address] ?Location of patient:?address listed in demographics for today's visit ?Patient identification confirmed using:?Name, ?Telehealth method:?Telephone only. Patient not visible to care provider. ?Consent:?Patient verbally consented to treatment, Patient verbally consented to billing insurance company, Patient informed of any privacy concerns related to method of visit ?Total time spent with patient (mins)?15 ? This telehealth visit to place over 22 minutes with the patient at home and me in my office. She gave consent for billing. She returns for a scheduled visit. She has a history of a Hurthle cell tumor of the thyroid. She is now taking warfarin, without bleeding. She does have heavy periods. Her pulmonary doctor, Dr. Land, has sent her to [facility] for a series of angioplasties of blockages in the blood vessels in her lung to relieve dyspnea . She has another such procedure scheduled August 11. I have requested the details from Dr. Land. She is now on Lovenox prior to the procedure and said her warfarin. The procedure is done at [facility]. Her diabetes is better and her servomechanism designer, Dr. Lovelace, has begun her on tirzepatide injections. * ROS:?General/Constitutional:?pain?only normal aches and pains.?Chills?denies.?Fatigue?admits.?Fever?denies.?ENT:?Decreased hearing?denies.?Respiratory:?Cough?denies.?Cardiovascular:?Chest pain with exertion?denies.?Dyspnea on exertion?with moderate activity.?Shortness of breath?that is moderate.?Gastrointestinal:?Constipation?denies.?Decreased appetite?denies.?Diarrhea?denies.?Heartburn?denies.?Nausea?denies.?Rectal bleeding?denies.?Vomiting?denies.?Hematology:?bruising?denies.?petechiae?denies.?Swollen glands?none have been noted.?Genitourinary:?Frequent urination?at night.?Musculoskeletal:?Muscle aches?denies.?Painful joints?denies.?Sciatica?denies.?Weakness?denies.?Skin:?Itching?denies.?Rash?denies.?Skin lesion(s)?denies.?Neurologic:?Difficulty speaking?denies.?Dizziness?denies.?Headache?denies.?Low back pain?denies.?Psychiatric:?Depressed mood?denies.? * Medical History:? * Surgical History:?left foot fasciotomy 2004right hand carpatunel 2017laparoscopic cholecystectomy 2002gravida 6 left wrist carpal tunnel 04/2018tendonitis right hand 04/2022 * Hospitalization/Major Diagno stic Procedure:?COVID 10/2020 * Family History:?Father: dece ased 55 yrs, COPD, myocardial infarction, diagnosed with CVD.?Mother: 61 yrs, COPD, chronic kidney disease, diagnosed with CVD.?3 brother(s) - healthy. 1 daughter(s) - healthy. .? Her siblings are healthy and well. There is no family history of inherited cancer. * Social History:?Tobacco Use:?Tobacco Use/Smoking?Patient is a?nonsmoker ?Additional Findings: Tobacco Non-User?Aggressive non-smoker * Medications:?TakingWarfarin Sodium (5 MG) 5 MG Tablet 1 tablet Orally Once a dayValsartan 320 MG Tablet 1 tablet Orally Once a dayAmaryl 4 MG Tablet 1 tablet with breakfast or the first main meal of the day Orally Once a dayAtorvastatin Calcium 20 MG Tablet 1 tablet Orally Once a dayJanumet XR 50-1000 MG Tablet Extended Release 24 Hour 1 tablet with evening meal Orally Once a dayLevothyroxine Sodium 50 MCG [...] MOUTH EVERY DAY FOR 30 DAYS Taking Warfarin Sodium (5 MG) 5 MG Tablet 1 tablet Orally Once a dayTaking Valsartan 320 MG Tablet 1 tablet Orally Once a dayTaking Amaryl 4 MG Tablet 1 tablet with breakfast or the first main meal of the day Orally Once a dayTaking Atorvastatin Calcium 20 MG Tablet 1 tablet Orally Once a dayTaking Janumet XR 50-1000 MG Tablet Extended Release 24 Hour 1 tablet with evening meal Orally Once a dayTaking Levothyroxine Sodium 50 [...] BY MOUTH EVERY DAY FOR 30 DAYS * Allergies:?Farxiga: UTIAmitr iptyline HCl: DRUGGED FEELINGMetformin HCl: GI UPSETVictoza: NAUSEALisinopril: ANGIOEDEMAErythromycin: HIVES Objective: Assessment: * Assessment: 1.?Iron deficiency anemia, u nspecified iron deficiency anemia type - D50.9 (Primary), Her mean cell volume is 77 and her ferritin is 20. Her iron was resumed. She was given a followup visit after more blood work.?2.?Vitamin B 12 deficiency - E53.8, A B12 level is not available at this time. She was continued on current therapy and the value will be followed.?3.?Acquired hypothyroidism - E03.9, She says is her servomechanism designer was going to put her on thyroid replacement.?4.?Adult onset diabetes mellitus with ketoacidosis - E11.10, She has been compliant with her medications, which are prescribed by primary care.?5.?Morbid obesity - E66.01, We discussed diet and nutrition. I recommended aggressive weight loss. I recommended she consider the weight loss surgery program at [facility]. She has gained 10 pounds since her last visit.?6.?Pulmonary embolism, unspecified chronicity, unspecified pulmonary embolism type, unspecified whether acute cor pulmonale present - I26.99, She was breathing comfortably today and has had no further episodes of dizziness or arterial thromboembolism. She had multiple pulmonary emboli/2022.These have caused dyspnea with exertion and she is undergoing a series of pulmonary artery angioplasties at the [facility] the next of which will be in August2023.?7.?Thrombophilia - D68.59, She has a thrombophilia in view of the positive factor V Leiden. Because of multiple pulmonary emboli. I have recommended indefinite anticoagulation. She is agreeable to this. 8.?Hurthle cell adenocarcinoma - C73, She had a fine needle aspiration biopsy of a right mid thyroid nodule that was read as suspicious for a Hurthle cell tumor. Endocrinnology has not yet addressed this issue to my knowledge. This will be discussed.? Plan: * Treatment: * Procedure Codes:?64875 PHONE E/M BY PHYS 5-10 MIN * Preventive Medicine:? ??Counseling:?Care goal follow-up plan:?Counseling [...] done: Medical or Other reason not done ??DM Care Plan:?Patient Lifestyle Goals?Patient wants to be able to manage diabetes without too much effort.?Treatment Goals?HbA1C < 7.0, Blood Sugars less than < 115.?Barriers?no barriers.?Self-Managment Goals?Work on weight loss, with a goal of losing 1 lb per week.? * Follow Up:?4 Weeks (Reason: OV) * Images: * Sign off status: Completed true * Provider:?Dario Urbano MD Date:?09/2022 Generated for Satish lai/Nettie/eTransmitting on:?08/27/2024 09:46 AM EST History and Physical Notes * HPI (History of Present Illness) Category Sub-Category Detail Notes Telehealth Location of [facility]:: {...} [address] [place] [address] Location of patient:: address listed in demographics for today's visit Patient identification confirmed using:: Name, Telehealth method:: Telephone only. Debora ent not visible to care provider. Consent:: Patient verbally c onsented to treatment, Patient verbally consented to billing insurance company, Patient informed of any privacy concerns related to method of visit Total time spent with patient (mins): 15
--- OUTSIDE RECORDS SUMMARY | 2024-08-27 09:47 | XMS_ITS | Patient Health Record ---
Author Organization Dario Urbano III, MD Address [address] [place] [address] Care Team Providers Care Human Resources Analyst Name Role Phone Jacinta ANGULO, [facility] Primary Care Provider Dario Slater [phone] Allergies Allergen (clinical drug ingredient) Drug/Non Drug Allergy documented on EMR Reaction Allergy Type Onset Date Status dapagliflozin Farxiga UTI Drug Allergy Act wiley liraglutide Victoza NAUSEA Drug Allergy Activ e metformin Metformin HCl GI UPSET Drug Allergy Act wiley lisinopril Lisinopril ANGIOEDEMA Drug Allergy Acti ve erythromycin Erythromycin HIVES Drug Allergy A ctive amitriptyline Amitriptyline HCl DRUGGED FEELING Drug Allergy Active Reason For Referral No Information Medications Medication SIG (Take, Route, Frequency, Duration) Notes Start Date End Date Status Mounjaro 2.5 MG/0.5ML as directed Subcutaneous Active Ferrous Sulfate 325 (65 Fe) MG TAKE 1 TA BLET BY MOUTH EVERY DAY FOR 30 DAYS Active Warfarin Sodium (5 MG) 5 MG 1 tablet Ora lly Once a day Active metFORMIN HCl 500 MG 2 tablet with a khadar l Orally twice a day Active Amaryl 4 MG 1 tablet with breakfast or the first main meal of the day Orally Once a day Active Valsartan 320 MG 1 tablet Orally Once a day Active Atorvastatin Calcium 20 MG 1 tablet Oral ly Once a day Active [facility] Vitamin B-12 1000 MCG TAKE 1 TABLET BY MOUTH EVERY DAY FOR 90 DAYS for 90 Active hydroCHLOROthiazide 25 MG 1 tablet in e morning Orally Once a day Active Levothyroxine Sodium 50 MCG 1 tablet on an empty stomach in the morning Orally Once a day Active Loperamide HCl 2 MG 1 capsule as needed Orally Active Social History Tobacco Use: Social History Observation Description Date Details (start date - stop date) Never Smoker NA - NA Tobacco Use/Smoking Question Answer Notes Patient is a nonsmoker Additional Findings: Tobacco Non-User Aggressive non-smoker Alcohol Screen Question Answer Notes Did you have a drink containing alcohol in the p ast year? No Points 0 Interpretation Negative Problems Problem Type SNOMED Code ICD Code Onset Dates Problem Status W/U Status Risk Notes Problem 25275122 Dysthymic disorder (F34.1) Active confirmed Her depress ion is mild and I will recommend no change in her current medications. Problem 874163810 Acquired hypothyroidism (E03.9) Active confirmed She says is her beam house inspector was going to put her on thyroid replacement. Problem 281206984 Vitamin B 12 deficiency (E53.8) Active confirmed A B12 level is not available at this time. She was continued on current therapy and the value will be followed. Problem Thyroid nodule (387603730) Thyroid nodule (E04.1) Active confirmed This appears to be a Hurthle cell tumor. She has been referred to [facility] for thyroidectomy. This will require cessation of her anticoagulation. Problem 382563754 History of cholecystectomy (Z90.49) Active confirmed Problem 381513347 Thrombophilia (D68.59) Active confirmed She has a thrombophilia in view of the positive factor V Leiden. Because of multiple pulmonary emboli. I have recommended indefinite anticoagulation. She is agreeable to this. Problem 81712746 Iron deficiency anemia, unspecified iron deficiency anemia type (D50.9) Active confirmed Her mean cell volume is 77 and her ferritin is 20. Her iron was resumed. She was given a followup visit after more blood work. Problem 186199599 Morbid obesity (E66.01) Active confirmed We discussed diet and nutrition. I recommended aggressive weight loss. I recommended she consider the weight loss surgery program at [facility]. She has gained 10 pounds since her last visit. Problem 39514078 Adult onset diabetes mellitus with ketoacidosis (E11.10) Active confirmed She has been compliant with her medications, which are prescribed by primary care. 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 She had multiple pulmonary emboli/2022.These have caused dyspnea with exertion and she is undergoing a series of pulmonary artery angioplasties at the [facility] the next of which will be in August2023. Vital Signs Heart Rate 99 /min 09/29/2023 Temperature 97.7 degrees Fahrenheit 09/29/2023 Height 64 in 09/29/2023 Weight 302 lbs 09/29/2023 BMI 51.83 kg/m2 09/29/2023 Encounters Encounter Location Date Provider Diagnosis Dario Urbano III, MD [address] [place] [address] [place] [address] 09/29/2023 Dario Urbano Morbid obesity E66.0 1 [...] Treat ment Notes Treatment Clinical Notes 09/29/2023 Dysthymic disorder (ICD-10 - F34.1) Her depression is mild and I will recommend no change in her current medications. 09/29/2023 Morbid obesity (ICD-10 - E66.01) We discussed diet and nutrition. I recommended aggressive weight loss. I recommended she consider the weight loss surgery program at [facility]. She has gained 10 pounds since her last visit. 09/29/2023 Adult onset diabetes mellitus with ketoacidosis [...] (ICD-10 - E03.9) She says is her beam house inspector was going to put her on thyroid [...] series of pulmonary artery angioplasties at the [facility] the next of which will be in August2023. Plan Of Treatment Pending Test Test Name Order Date PROFILE, FASTING (COMPREHENSIVE METABOLI C) 02/23/2021 PROFILE, FASTING (COMPREHENSIVE METABOLI C) 07/27/2020 PROFILE, FASTING (COMPREHENSIVE METABOLI C) 03/23/2020 PROFILE, RANDOM (COMPREHENSIVE METABOLIC ) 07/04/2021 PROFILE, RANDOM (COMPREHENSIVE METABOLIC ) 04/23/2019 PROFILE, RANDOM (COMPREHENSIVE METABOLIC ) 08/21/2018 PROFILE, RANDOM (COMPREHENSIVE METABOLIC ) 07/22/2022 PROFILE, RANDOM (COMPREHENSIVE METABOLIC ) 04/20/2018 PROFILE, RANDOM (COMPREHENSIVE METABOLIC ) 04/15/2022 PROFILE, RANDOM (COMPREHENSIVE METABOLIC ) 11/24/2020 HEMOGLOBIN A1C (GLYCOHEMOGLOBIN) 020 HEMOGLOBIN A1C (GLYCOHEMOGLOBIN) 020 HEMOGLOBIN A1C (GLYCOHEMOGLOBIN) 020 LIPID PANEL 02/23/2021 LDH 04/06/2018 FREE T4 (FT4) 07/27/2020 FREE T4 (FT4) 11/24/2020 TSH (THYROID STIMULATING HORMONE) 2019 TSH (THYROID STIMULATING HORMONE) 2020 FERRITIN 03/23/2020 FERRITIN 12/23/2019 FERRITIN 07/04/2021 FERRITIN 04/23/2019 FERRITIN 07/27/2020 FERRITIN 02/23/2021 FERRITIN 11/24/2020 FERRITIN 04/06/2018 FERRITIN 08/21/2018 FERRITIN 07/22/2022 FERRITIN 04/20/2018 VITAMIN B12 AND FOLATE 04/06/2018 B12 03/23/2020 B12 12/23/2019 B12 04/23/2019 B12 07/27/2020 B12 02/23/2021 B12 11/24/2020 B12 04/15/2022 CBC w DIFF 07/04/2021 CBC w DIFF 03/23/2020 CBC w DIFF 12/23/2019 CBC w DIFF 04/23/2019 CBC w DIFF 07/27/2020 CBC w DIFF 02/23/2021 CBC w DIFF 08/21/2018 CBC w DIFF 11/24/2020 CBC w DIFF 07/22/2022 CBC w DIFF 04/20/2018 CBC w DIFF 04/15/2022 CBC w DIFF 04/06/2018 RETICULOCYTE COUNT,CORRECTED 08/21/2018 RETICULOCYTE COUNT,CORRECTED 07/22/2022 RETICULOCYTE COUNT,CORRECTED 04/20/2018 RETICULOCYTE COUNT,CORRECTED 04/06/2018 PROTHROMBIN TIME (PT, INR) 11/18/2022 PARTIAL THROMBOPLASTIN TIME (PTT) 2022 FIBRINOGEN 11/18/2022 ANTITHROMBIN III & AG (REFLEX) HOMOCYSTEINE 11/18/2022 INTRINSIC FACTOR ANTIBODIES 04/06/2018 PROTEIN C ACTIVITY REFLEX AG 11/18/2022 PROTEIN S ACTIVITY REFLEX AG 11/18/2022 HGB ELECTROPHORESIS 04/20/2018 LUPUS ANTICOAGULANT PANEL 11/18/2022 FACTOR V LEIDEN 11/18/2022 Ferritin 04/15/2022 Folate 04/15/2022 Next Appt Details Provider Name:Dario Urbano, 09/29/2024 02:00:00 PM, [address], [place], [address], Insurance Providers Payer Name Payer Address Payer Phone Subscriber Number Group Number Insured Name Patient Relationship to Insured Coverage Start Date Coverage End Date [employer] [address] [address] [place] [address] [id number] Domonique Bro Self - patient is the insured MEDICAID [address] [place], [place] [id number] [phone] [id number] Domonique Bro Self - patient is the insured Medical (General) History Medical History History ICD Code Hyperlipidemia, unspecified hyperlipidem ia type E78.5 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 2004 Pulmonary embolism Positive for factor V Leiden mutation, t hrombophilia Chronic anticoagulation Surgical History Surgery Date(Month/Year) left foot fasciotomy 2004 right hand carpatunel 2017 laparoscopic cholecystectomy 2002 6 left wrist carpal tunnel 04/2018 tendonitis right hand 04/2022 blood clots in lungs angioplasty in and 08/2023 Hospitalization History Reason Date(Month/Year) COVID 10/2020
--- OUTSIDE RECORDS SUMMARY | 2024-08-27 09:47 | XMS_ITS | Patient Health Record ---
Author Organization [facility] Address [address] [place] [address] Care Team Providers Care Mail Examiner Name Role Phone Deena Workman Primary Care Provider Unavailab Dario Holbrook Unavailable [phone] ALLERGIES Allergen (clinical drug ingredient) Drug/Non Drug Allergy documented on EMR Reaction Allergy Type Onset Date Status amitriptyline Amitriptyline Unknown Drug Allergy Active dapagliflozin Farxiga Unknown Drug Allergy Act wiley metformin metFORMIN HCl ER Unknown Drug Allergy Active liraglutide Victoza Unknown Drug Allergy Activ e erythromycin Erythromycin Unknown Drug Allergy A ctive lisinopril Lisinopril Unknown Drug Allergy Activ e REASON FOR REFERRAL No Information MEDICATIONS Medication SIG (Take, Route, Frequency, Duration) Notes Start Date End Date Status Eliquis 5 MG 1 tablet Orally Twic e a day for 30 day(s) Active Levothyroxine Sodium 50 MCG 1 tablet in the morning on an empty stomach Orally Once a day for 30 day(s) Active Atorvastatin Calcium 20 MG 1 tablet Oral ly Once a day for 30 day(s) Active Dicyclomine HCl 10 MG 1-2 capsules Orall y Every 6 hours prn abdominal cramps/diarrhea---you can take it 30 minutes before a meal to prevent symptoms as well for 30 day(s) 05/22/2022 Active Iron (Ferrous Sulfate) 325 (65 Fe) MG 1 tablet Orally Once a day for 30 day(s) Active Glimepiride 4 MG 1 tablet with breakf ast or the first main meal of the day Orally Once a day for 30 day(s) Active Janumet 50-500 MG 1 tablet with meals Orally Twice a day for 30 day(s) Active Vitamin B 12 500 MCG 1 tablet Orally Onc e a day for 30 day(s) Active IMMUNIZATIONS Vaccine Route Administration Date Status Comme nts Influenza Unknown 05/10/2022 Administered SOCIAL HISTORY Tobacco Use: Social History Observation Description Date Details (start date - stop date) Never Smoker NA - NA Sex Assigned At : Social History Observation Description Sex Assigned At Unknown Tobacco Use/Smoking Question Answer Notes Patient is a nonsmoker Alcohol Screen Question Answer Notes Did you have a drink containing alcohol in the p ast year? No Points 0 Interpretation Negative PROBLEMS Problem Type ICD Code Onset Dates Problem Status W/U Status Risk SNOMED Code Notes Problem Irritable bowel syndrome (K58.9) Active confirmed Irritable b owel syndrome (46199413) Problem Colon cancer screening (Z12.11) Active confirmed Colon cancer screening (863853000) Problem Microcytic anemia (D50.9) Active confirmed Microcytic anem ia (694297297) Problem Diverticulosis of colon (K57.30) Active confirmed Diverticulosi s of colon (068861516) PLAN OF TREATMENT Pending Test Test Name Order Date CELIAC PANEL #10 05/22/2022 Future Test Test Name Order Date COLONOSCOPY 05/22/2022 Next Appt Details Provider Name:Dario Ramsey , 10/07/2024 10:40:00 AM, [address] [place] [address], [address], [place], [address], Insurance Providers Payer Name Payer Address Payer Phone Subscriber Number Group Number Insured Name Patient Relationship to Insured Coverage Start Date Coverage End Date [facility] [address] [address] [place], [place] [id number] KASANDRA SANTILLAN Self - patient is the insured MEDICAL (GENERAL) HISTORY Medical History History ICD Code ERCP with sphincterotomy 10-30-2001 Pulmonary emboli with COVID 10/2020-she describes a two-week hospitalization although did not require intubation. She describes having been left with some respiratory issues for which she is seeing Dr. Land. She also describes some residual brain fog Arthritis Denies [place],CVA,renal disease NIDDM Anemia from heavy menses IBS with diarrhea Surgical History Surgery Date(Month/Year) CCY 2001 BTL 2001 Bilateral carpal tunnel 2017 Right foot 1999 Right wrist 04/2022
[2024-08-27 09:51] LABS: Prothrombin Time Whole Bld POC 31.3 sec (11.1-13.5); ~PT, ~INR - Anti Coag Clinic 2.6 (0.9-1.1)
--- NOTE | 2024-08-27 09:59 | MHC.OFFVISCO ---
Intake Intake Visit Reasons: Anticoagulation Allergies lisinopril [LISINOPRIL] Allergy (Severe, Verified 08/27/24 09:43) ANGIOEDEMA dapagliflozin [From FARXIGA] Allergy (Intermediate, Verified 08/27/24 09:43) HIVES liraglutide [From VICTOZA] Allergy (Intermediate, Verified 08/27/24 09:43) RASH metformin [METFORMIN] Allergy (Intermediate, Verified 08/27/24 09:43) GI UPSET erythromycin base [ERYTHROMYCIN BASE] Allergy (Unknown, Verified 08/27/24 09:43) UNKNOWN amitriptyline [AMITRIPTYLINE] Adverse Reaction (Intermediate, Verified 08/27/24 09:43) DRUGGED FEELING Medication List - Last Reconciled 08/27/24 by Licha Muñoz RN acetaminophen ER 650 mg PO Q6H PRN albuterol sulfate 2.5 mg inhalation Q4H PRN albuterol sulfate 90 mcg/actuation (Ventolin HFA) 2 puffs inhalation Q6H PRN blood sugar diagnostic (FreeStyle Lite Strips) As directed ferrous gluconate 324 mg PO DAILY levothyroxine 50 mcg PO DAILY metformin 1,000 mg PO BID nebulizers As directed Oxygen Home Use As directed rosuvastatin 10 mg PO BEDTIME sertraline 100 mg PO DAILY sildenafil (pulm.hypertension) 20 mg PO TID 30 days tirzepatide (Mounjaro) 7.5 mg (0.5 mL) subcut QWEEK warfarin 5 mg See Protocol PO DAILY 30 days Nursing Note INR: 2.6 in therapeutic range Medications and supplements reviewed No changes in health, diet, medications, or supplements, Denies any signs and symptoms of bleeding or bruising or clotting. Bleeding, bruising, clotting discussed Nutritional guidance given Dose: 5MG X 1 DAY/ 2.5MG X 6 DAYS F/U INR: 09/15/24 SAME DAY OTHER APPT Patient verbalizes understanding of instructions given Anti-Coag Initial Assessment Social Hx Patient Tobacco Use Status: Never used Tobacco alcohol intake: former Alcohol intake frequency: does not drink Cardiovascular Hx: HTN Lung Disease HX: DVT/PE Endocrine Hx: Thyroid Disease Musculoskeletal Hx: Arthritis Blood Disorder Hx: Anemia and Hyperlipidemia GI Hx: Ulcers, Diverticulosis and Hemorrhoids Hx: Other Neurological Hx: Migraines/Headaches and Other Cancer HX: No Psych. Illness/Depression: Yes Questionnaires HAS-BLED Does the patient had uncontrolled Hypertension?: No Does the patient have renal disease?: Yes Does the patient have liver disease?: No Does the patient have a history of stroke?: No Has the patient had major bleeding or predisposition to bleeding?: Yes (On warfarin) Does the patient have labile INRs?: Yes Is the patient over 65 years of age?: No Is the patient on medications that gives them a predisposition to bleeding?: Yes Does the patient use alcohol?: No HAS-BLED Score: 4 CHADSVASC Age: <65 Gender: Female Does the patient have a history of CHF?: No Does the patient have a history of Hypertension?: Yes Does the patient have a history of Stroke/TIA/Thromboembolism?: Yes Does the patient have a history of Vascular Disease (prior NV, PAD or aortic plaque)?: No Does the patient have a history of Diabetes?: Yes CHADS VACS Score: 5 Kodak Prediction Score Rsk VTE Active Cancer: Yes (thyroid cancer) Previous VTE, excluding superficial vein thrombosis: Yes Reduced mobility: No Already known Thrombophilic Condition: Yes With-in last month Trauma and/or Surgery: Yes Elderly 70 year or older: No Heart and/or Respiratory Failure: No Acute Myocardial infarction and/or Ischemic Stroke: No Acute Infection and/or Rheumatologic Disorder: Yes (ANANDA POSTIVE) Obesity (BMI 30 or greater): Yes Ongoing Hormonal Treatment: No Score: 13 Kodak Score less than 4; Low Risk of VTE Kodak Score 4 or greater; High Risk of VTE Coding Level of Care Code Est Patient Level 1 Diagnoses Current use of anticoagulant therapy Z79.01 Results AMB INR Fingerstick AMB INR Fingerstick 2.6 Last Edit by Licha Muñoz RN on 08/27/24 09:54 MANUAL ENTRY Assessment & Plan Assessment & Plan (1) Current use of anticoagulant therapy: Code(s): Z79.01 - penitentiary (current) use of anticoagulants Category: Medical
== END 2024-08-27 10:00 | disposition home or self-care (01) ==
LOC: HO.ACS 09:43
PROVIDERS: PCP Internal Medicine; Visit Provider Internal Medicine
DX: Z79.01 Long term (current) use of anticoagulants (principal)

== ENCOUNTER → 2024-08-27 09:43 | Outpatient (BNVA) | payer OTHER, SELFPAY | PROVIDERS: PCP Internal Medicine; Visit Provider Internal Medicine | DX: I26.99 Other pulmonary embolism without acute cor pulmonale (principal); Z79.01 Long term (current) use of anticoagulants; Z51.81 Encounter for therapeutic drug level monitoring | CPT/HCPCS: 85610; 99211 ==

== ENCOUNTER 2024-09-17 10:59 | Outpatient (REF) | payer OTHER, SELFPAY ==
[2024-09-17 11:43] LABS: Prothrombin Time 152.9 SEC (10.9-12.4)
[2024-09-17 11:46] LABS: INTERNATIONAL NORM RATIO 13.1 (0.9-1.1)
== END 2024-09-17 11:00 | disposition home or self-care (01) ==
LOC: HO.LAB 10:59
PROVIDERS: PCP Internal Medicine; Visit Provider Internal Medicine
DX: Z51.81 Encounter for therapeutic drug level monitoring (principal); Z79.01 Long term (current) use of anticoagulants
CPT/HCPCS: 36415; 85610; 99212

== ENCOUNTER 2024-09-17 10:59 | Outpatient (AMB) | payer OTHER, SELFPAY ==
--- OUTSIDE RECORDS SUMMARY | 2024-09-17 11:06 | XMS_ITS ---
Author Organization Dario Urbano III, MD Address [address] [place] [address] Care Team Providers Care Pet Care Assistant Name Role Phone Jacinta ANGULO, [facility] Primary Care Provider Dario Slater [phone] Allergies Allergen (clinical drug ingredient) Drug/Non Drug [...] Date Provider Diagnosis Dario Urbano III, MD [address] [place] [address] [place] [address] 09/29/2023 Dario Urbano Morbid obesity E66.0 1 [...] consider the weight loss surgery program at [facility]. She has gained 10 pounds since her [...] (ICD-10 - E03.9) She says is her customs verifier was going to put her on thyroid [...] series of pulmonary artery angioplasties at the [facility] the next of which will [...] V Provider Name:Dario Urbano, 09/29/2024 02:00:00 PM, [address] [place] [address] [address] [place] [address], [place], [address], Progress Notes * Domonique SANTILLAN SDOB:1975 (48 yo F)Acc No.[id number]:09/29/2023 Progress Notes Patient:?Santillan, Domonique S Provider:?Dario Urbano MD :1975???Age:48 Y???Sex:Female D ate:09/29/2023 Address:[address] [place] [address] [id number] Pcp:Deena Workman MD Subjective: * Chief Complaints: [...] consider the weight loss surgery program at [facility]. She has gained 10 pounds since her [...] hypothyroidism - E03.9, She says is her customs verifier was going to put her on thyroid replacement.?8.?Pulmonary embolism, unspecified chronicity, unspecified pulmonary embolism type, unspecified whether acute cor pulmonale present - I26.99, She was breathing comfortably today and has had no further episodes of dizziness or arterial thromboembolism. She had multiple pulmonary emboli/2022.These have caused dyspnea with exertion and she is undergoing a series of pulmonary artery angioplasties at the [facility] the next of which will [...] Urbano MD Date:?09/09 Generated for Printi ng/Nettie/eTransmitting on:?09/17/2024 11:06 AM EST History and Physical Notes * HPI (History of Present Illness) Category Sub-Category Detail Notes COVID-19 Screening Questions Have you had any new onset fever, chills, cough, congestion, sore throat, shortness of breath, muscle aches?: No Have you been exposed to the virus withi n the last 10 days?: No Have you travelled internationally in [facility] last 10 days?: No Have you [...]
--- OUTSIDE RECORDS SUMMARY | 2024-09-17 11:06 | XMS_ITS ---
Author Organization Dario Urbano III, MD Address [address] [place] [address] Care Team Providers Care Administrative Law Judge Name Role Phone Jacinta ANGULO, Deena Primary Care Provider Dario Slater [phone] REASON FOR VISIT Follow-up Encounters Encounter Location Date Provider Diagnosis Dario Urbano III, MD [address] [place] [address] [place] [address] 09/09/2023 Dario Urbano Plan Of Treatment Next Appt Details Provider Name:Dario Urbano, 09/29/2024 02:00:00 PM, [address] [place] [address] [place], [address], Progress Notes * TYRELL Domonique SDOB:1975 (49 yo F)Acc No.[id number]:09/09/2023 Progress Notes Patient:?Domonique SANTILLAN Provider:?Dario Urbano MD :1975???Age:48 Y???Sex:Female D ate:09/09/2023 Address: [id number] Pcp:Deena Workman MD Subjective: * Chief Complaints: [...] Provider:?Dario Urbano MD Date:?10/2023 Generated for Satish lai/Nettie/eTmartínezsmitting on:?09/17/2024 11:06 AM EST History and Physical Notes * HPI (History of Present Illness) Category Sub-Category Detail Notes COVID-19 Screening Questions Have you had any new onset fever, chills, cough, congestion, sore throat, shortness of breath, muscle aches?: No Have you been exposed to the virus withi n the last 10 days?: No Have you travelled internationally in [facility] last 10 days?: No Have you [...]
--- OUTSIDE RECORDS SUMMARY | 2024-09-17 11:07 | XMS_ITS | Patient Health Record ---
Author Organization [facility] Address [address] [place] [address] Care Team Providers Care Christian Science Practitioner Name Role Phone Deena Workman Primary Care Provider UnavailDario Cooper Unavailable [phone] ALLERGIES Allergen (clinical drug ingredient) Drug/Non Drug [...] (K58.9) Active confirmed Irritable b owel syndrome (58258496) Problem Colon cancer screening (Z12.11) Active confirmed Colon cancer screening (210963099) Problem Microcytic anemia (D50.9) Active confirmed Microcytic anem ia (734173615) Problem Diverticulosis of colon (K57.30) Active confirmed Diverticulosi s of colon (349803693) PLAN OF TREATMENT Pending Test Test Name Order Date CELIAC PANEL #10 05/22/2022 Future Test Test Name Order Date COLONOSCOPY 05/22/2022 Next Appt Details Provider Name:Dario Ramsey , 10/07/2024 10:40:00 AM, [address] [place] [address], [address], [place], [address], Insurance Providers Payer Name Payer Address Payer Phone Subscriber Number Group Number Insured Name Patient Relationship to Insured Coverage Start Date Coverage End Date [facility] [address] [address] [place], [place] [id number] KASANDRA SANTILLAN Self - patient is the insured MEDICAL (GENERAL) HISTORY Medical History History ICD Code ERCP with sphincterotomy 10-30-2001 Pulmonary emboli with COVID 10/2020-she describes a two-week hospitalization although did not require intubation. She describes having been left with some respiratory issues for which she is seeing Dr. Land. She also describes some residual brain fog Arthritis Denies [place],CVA,renal disease NIDDM Anemia from heavy menses IBS with diarrhea Surgical History Surgery Date(Month/Year) CCY 2001 BTL 2001 Bilateral carpal tunnel 2017 Right foot 1999 Right wrist 04/2022
--- OUTSIDE RECORDS SUMMARY | 2024-09-17 11:07 | XMS_ITS | Patient Health Record ---
Author Organization Dario Urbano III, MD Address [address] [place] [address] Care Team Providers Care Conference Concierge Name Role Phone Jacinta ANGULO, [facility] Primary Care Provider Dario Slater [phone] Allergies Allergen (clinical drug ingredient) Drug/Non Drug [...] Problem Status W/U Status Risk Notes Problem 10190311 Dysthymic disorder (F34.1) Active confirmed Her depress ion is mild and I will recommend no change in her current medications. Problem 970477727 Acquired hypothyroidism (E03.9) Active confirmed She says is her historical society director was going to put her on thyroid replacement. Problem 582089001 Vitamin B 12 deficiency (E53.8) Active confirmed A B12 level is not available at this time. She was continued on current therapy and the value will be followed. 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 She has been referred to [facility] for thyroidectomy. This will require cessation of her anticoagulation. Problem 257145552 History of cholecystectomy (Z90.49) Active confirmed Problem 280717823 Thrombophilia (D68.59) Active confirmed She has a thrombophilia in view of the positive factor V Leiden. Because of multiple pulmonary emboli. I have recommended indefinite anticoagulation. She is agreeable to this. Problem 30771121 Iron deficiency anemia, unspecified iron deficiency anemia type (D50.9) Active confirmed Her mean cell volume is 77 and her ferritin is 20. Her iron was resumed. She was given a followup visit after more blood work. Problem 758696725 Morbid obesity (E66.01) Active confirmed We discussed diet and nutrition. I recommended aggressive weight loss. I recommended she consider the weight loss surgery program at [facility]. She has gained 10 pounds since her last visit. Problem 60986572 Adult onset diabetes mellitus with ketoacidosis (E11.10) Active confirmed She has been compliant with her medications, which are prescribed by primary care. 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 She had multiple pulmonary emboli/2022.These have caused dyspnea with exertion and she is undergoing a series of pulmonary artery angioplasties at the [facility] the next of which will be in August2023. Vital Signs Heart Rate 99 /min 09/29/2023 Temperature 97.7 degrees Fahrenheit 09/29/2023 Height 64 in 09/29/2023 Weight 302 lbs 09/29/2023 BMI 51.83 kg/m2 09/29/2023 Encounters Encounter Location Date Provider Diagnosis Dario Urbano III, MD [address] [place] [address] [place] [address] 09/29/2023 Dario Urbano Morbid obesity E66.0 1 [...] consider the weight loss surgery program at [facility]. She has gained 10 pounds since [...] (ICD-10 - E03.9) She says is her historical society director was going to put her on thyroid [...] series of pulmonary artery angioplasties at the [facility] the next of which will be [...] Provider Name:Dario Urbano, 09/29/2024 02:00:00 PM, [address] [place] [address], [place], [address], Insurance Providers Payer Name Payer Address Payer Phone Subscriber Number Group Number Insured Name Patient Relationship to Insured Coverage Start Date Coverage End Date [employer] [address] [address] [place] [address] [id number] Domonique Bro Self - patient is the insured MEDICAID [address] [place], [place] [id number] [phone] [id number] Domonique Bro Self - patient is the insured Medical (General) History Medical History History ICD Code Hyperlipidemia, unspecified hyperlipidem ia type E78.5 Postcholecystectomy syndrome K91.5 Dysmenorrhea N94.6 Morbid obesity E66.01 Dysthymic disorder F34.1 Anemia, unspecified type D64.9 Type 2 diabetes mellitus wit h complication, unspecified whether bed bug exterminator insulin use E11.8 G6 carpal tunnel syndrome, [...]
--- OUTSIDE RECORDS SUMMARY | 2024-09-17 11:07 | XMS_ITS ---
Author Organization Dario Urbano III, MD Address [address] [place] [address] Care Team Providers Care Domestic Violence Advocate Name Role Phone Jacinta ANGULO, [facility] Primary Care Provider Dario Slater [phone] Allergies Allergen (clinical drug ingredient) Drug/Non Drug [...] Date Provider Diagnosis Dario Urbano III, MD [address] [place] [address] [address] [facility] [address] 08/08/2023 Dario Urbano Iron deficiency anem ia, [...] (ICD-10 - E03.9) She says is her salesperson new cars was going to put her on thyroid replacement. 08/08/2023 Adult onset diabetes mellitus with ketoacidosis (ICD-10 - E11.10) She has been compliant with her medications, which are prescribed by primary care. 08/08/2023 Morbid obesity (ICD-10 - E66.01) We discussed diet and nutrition. I recommended aggressive weight loss. I recommended she consider the weight loss surgery program at [facility]. She has gained 10 pounds since [...] series of pulmonary artery angioplasties at the [facility] the next of which will be in [...] OV Provider Name:Dario Urbano, 09/29/2024 02:00:00 PM, [address] [place] [address], [place] [address], [place], [address], Progress Notes * Domonique SANTILLAN SDOB:1975 (47 yo F)Acc No.[id number]:08/08/2023 Patient:?Domonique Santillan S Provider:?Dario Urbano MD :1975???Age:47 Y???Sex:Female D ate:08/08/2023 Address[address] [place] Pcp:Deena Workman MD Subjective: * Chief Complaints: * ???Hurtle cell tumor, right mid thyroidDiabetes mellitusHypothyroidMorbid obesityIron bodqoxqrwoG98 deficiencyPulmonary emboli requiring a series of angioplastiesFactor V Leiden mutation * HPI: ???:?Telehealth?Location of provider rendering services:?{...} [address] [place] [address] ?Location of patient:?address listed in demographics for [...] doctor, Dr. Land, has sent her to [place] for a series of angioplasties of blockages in the blood vessels in her lung to relieve dyspnea . She has another such procedure scheduled August 11. I have requested the details from Dr. Land. She is now on Lovenox prior to the procedure and said her warfarin. The procedure is done at [facility]. Her diabetes is better and her salesperson new cars, Dr. Lovelace, has begun her on tirzepatide [...] hypothyroidism - E03.9, She says is her salesperson new cars was going to put her on thyroid replacement.?4.?Adult onset diabetes mellitus with ketoacidosis - E11.10, She has been compliant with her medications, which are prescribed by primary care.?5.?Morbid obesity - E66.01, We discussed diet and nutrition. I recommended aggressive weight loss. I recommended she consider the weight loss surgery program at [facility]. She has gained 10 pounds since her last visit.?6.?Pulmonary embolism, unspecified chronicity, unspecified pulmonary embolism type, unspecified whether acute cor pulmonale present - I26.99, She was breathing comfortably today and has had no further episodes of dizziness or arterial thromboembolism. She had multiple pulmonary emboli/2022.These have caused dyspnea with exertion and she is undergoing a series of pulmonary artery angioplasties at the [facility] the next of which will be in [...] be discussed.? Plan: * Treatment: * Procedure Codes:?07934 PHONE E/M BY PHYS 5-10 MIN * [...] Urbano MD Date:?09/2022 Generated for Satish lai/Nettie/eTransmitting on:?09/17/2024 11:06 AM EST History and Physical Notes * HPI (History of Present Illness) Category Sub-Category Detail Notes Telehealth Location of [facility]:: {...} [address] [place] [address] Location of patient:: address listed in demographics [...]
[2024-09-17 11:12] LABS: Prothrombin Time Whole Bld POC > 96.0 sec (11.1-13.5); ~PT, ~INR - Anti Coag Clinic > 8.0 (0.9-1.1)
--- NOTE | 2024-09-17 11:36 | MHC.OFFVISCO ---
Intake Intake Visit Reasons: Anticoagulation Allergies lisinopril [LISINOPRIL] Allergy (Severe, Verified 09/17/24 12:12) ANGIOEDEMA dapagliflozin [From FARXIGA] Allergy (Intermediate, Verified 09/17/24 12:12) HIVES liraglutide [From VICTOZA] Allergy (Intermediate, Verified 09/17/24 12:12) RASH metformin [METFORMIN] Allergy (Intermediate, Verified 09/17/24 12:12) GI UPSET erythromycin base [ERYTHROMYCIN BASE] Allergy (Unknown, Verified 09/17/24 12:12) UNKNOWN amitriptyline [AMITRIPTYLINE] Adverse Reaction (Intermediate, Verified 09/17/24 12:12) DRUGGED FEELING Medication List - Last Reconciled 09/17/24 by Francine Mitchell RN acetaminophen ER 650 mg PO Q6H PRN albuterol sulfate 2.5 mg inhalation Q4H PRN albuterol sulfate 90 mcg/actuation (Ventolin HFA) 2 puffs inhalation Q6H PRN blood sugar diagnostic (FreeStyle Lite Strips) As directed ferrous gluconate 324 mg PO DAILY levothyroxine 50 mcg PO DAILY metformin 1,000 mg PO BID nebulizers As directed Oxygen Home Use As directed rosuvastatin 10 mg PO BEDTIME sertraline 100 mg PO DAILY sildenafil (pulm.hypertension) 20 mg PO TID 30 days tirzepatide (Mounjaro) 7.5 mg (0.5 mL) subcut QWEEK warfarin 5 mg See Protocol PO DAILY 30 days Nursing Note INR: >8 on ACS POC??out of therapeutic range Pt sent to lab for verification. T/C from Hematology, [place], with INR result 13.1 Pt states she hasn't felt well all week with vague symptoms of lethary, mild body aches, headache and mild SOB. Pt denies bleeding. No red/pink urine. Stools brown, loose. States small amount of blood when blew her nose once this week. Denies chest pain. Medications and supplements reviewed and no changes. Denies change in diet. Denies alcohol consumption. Denies marijuana. Denies taking tylenol. Denies stress. Pt encouraged to go to ER for further testing and for Ct scan to r/o cerebral bleed Dose: Hold warfarin next 3 days F/U INR Date : 1/13/24?? Patient verbalizing understanding of instructions given and was taken to ER. T/C to Dr Katz who I spoke to directly and informed her of pt's INR and symptoms and that she was taken to the ER. Msg sent to Dr Land of pt's INR and that pt went to ER. Anti-Coag Initial Assessment Social Hx Patient Tobacco Use Status: Never used Tobacco alcohol intake: former Alcohol intake frequency: does not drink Cardiovascular Hx: HTN Lung Disease HX: DVT/PE Endocrine Hx: Thyroid Disease Musculoskeletal Hx: Arthritis Blood Disorder Hx: Anemia and Hyperlipidemia GI Hx: Ulcers, Diverticulosis and Hemorrhoids Hx: Other Neurological Hx: Migraines/Headaches and Other Cancer HX: No Psych. Illness/Depression: Yes Coding Level of Care Code Est Patient Level 2 Diagnoses Current use of anticoagulant therapy Z79.01 Assessment & Plan Assessment & Plan (1) Current use of anticoagulant therapy: Code(s): Z79.01 - long term care phlebotomist (current) use of anticoagulants Category: Medical Orders: Orders Prothrombin Time INR Today Z79.01 - long term care phlebotomist (current) use of anticoagulants
== END 2024-09-17 14:41 | disposition home or self-care (01) ==
LOC: HO.ACS 10:59
PROVIDERS: PCP Internal Medicine; Visit Provider Internal Medicine
DX: Z79.01 Long term (current) use of anticoagulants (principal)

== ENCOUNTER 2024-09-17 12:06 | Emergency (ER) | payer OTHER, SELFPAY ==
--- NOTE | ~2024-09-17 | CT_ITS ---
EXAMINATION: CT HEAD WITHOUT CONTRAST CLINICAL INFORMATION: Headache. COMPARISON: CT brain 1 1.3. TECHNIQUE: Contiguous axial imaging was performed from the skull base to vertex without intravenous administration of contrast. This CT examination was performed using dose optimization techniques as appropriate, variously including the following: *Automated exposure control *Adjustment of mA and/or kV according to patient size (this includes techniques or standardized protocols for targeted exams where dose is matched to indication/reason for exam; i.e. extremities or head) *Use of iterative reconstruction technique DLP 642 FINDINGS: There is no acute intra-axial, extra-axial bleed, masses or midline shift. There is no acute infarction in evolution. There is no edema. The reaves to white matter differentiation is maintained normal. The lateral ventricles are symmetrical in size and configuration without enlargement. Bone windows reveal no calvarial abnormality. There is no scalp soft tissue abnormality. Bilateral paranasal sinuses and mastoid air cells are well-aerated. CT/CT head/brain wo IV con IMPRESSION: No acute intracranial process seen. Electronically signed by: Cristofer Jung MD 09/17/2024 01:12 PM [facility]
--- NOTE | 2024-09-17 12:08 | ED.GENADULT ---
HPI - General Adult General Chief complaint: Headache Stated complaint: high INR Time Seen by Provider: 09/17/24 13:06 Source: patient Mode of arrival: wheelchair Limitations: no limitations History of Present Illness ED Provider: Pearl Jackman PA-C HPI narrative: Patient is a 49 year old assigned female at with a history of CKD, warfarin use for bilateral PEs, thyroid cancer, and DM presenting to the emergency department today with a headache and an elevated INR. Patient states that she has had a headache over the last 4 days and has felt generally unwell. Patient states that she was seen at the anti-coagulation clinic and found to have an elevated INR so they recommended she come to the ER. Patient states that her oxygen machine does work but the battery is currently . Patient denies any dizziness, lightheadedness, abdominal pain, nausea, vomiting, fever, chills, blurry vision, double vision, loss of vision, chest pain, difficulty breathing, shortness of breath, back pain, night sweats, pain with urination, increased urinary frequency, increased urinary urgency, blood in her urine or stool, syncope or a near syncopal episode, recent trauma or falls, bowel incontinence, bladder incontinence, or any other complaints at this time. Onset (ago): day(s) Relieving factors: none Exacerbating factors: none Associated symptoms: denies other symptoms Treatments prior to arrival: none Related Data Home Medications ?Medication ?Instructions ?Recorded ?Confirmed blood sugar diagnostic (Heriyle #10 ea 02/26/22 09/17/24 Lite Strips) albuterol sulfate 2.5 mg/3 mL 2.5 mg inhalation Q4H PRN Wheezing 01/31/23 09/17/24 (0.083 %) solution for nebulization acetaminophen 650 mg 650 mg PO Q6H PRN pain 03/03/23 09/17/24 tablet,extended release Oxygen Home Use 04/11/23 09/17/24 metformin 1,000 mg tablet 1,000 mg PO BID 06/02/23 09/17/24 nebulizers 07/23/23 09/17/24 levothyroxine 50 mcg tablet 50 mcg PO DAILY 01/08/24 09/17/24 ferrous gluconate 324 mg (38 mg 324 mg PO DAILY 04/22/24 09/17/24 iron) tablet sertraline 100 mg tablet 100 mg PO DAILY 04/22/24 09/17/24 rosuvastatin 10 mg tablet 10 mg PO BEDTIME 07/22/24 09/17/24 Previous Rx's ?Medication ?Instructions ?Recorded albuterol sulfate 90 mcg/actuation 2 puff inhalation Q6H PRN for 11/17/23 aerosol inhaler (Ventolin HFA) wheezing #18 ea warfarin 5 mg tablet 5 mg PO DAILY 30 days #30 tabs 06/09/24 tirzepatide 7.5 mg/0.5 mL 7.5 mg (0.5 mL) subcut QWEEK #2 mL 07/23/24 subcutaneous pen injector (Mounjaro) sildenafil (pulm.hypertension) 20 20 mg PO TID 30 days #90 tabs 08/16/24 mg tablet Allergies Allergy/AdvReac Type Severity Reaction Status Date / Time lisinopril [LISINOPRIL] Allergy Severe ANGIOEDEMA Verified 09/17/24 12:12 dapagliflozin [From FARXIGA] Allergy Intermediate HIVES Verified 09/17/24 12:12 liraglutide [From VICTOZA] Allergy Intermediate RASH Verified 09/17/24 12:12 metformin [METFORMIN] Allergy Intermediate GI UPSET Verified 09/17/24 12:12 erythromycin base Allergy Unknown UNKNOWN Verified 09/17/24 12:12 [ERYTHROMYCIN BASE] amitriptyline [AMITRIPTYLINE] AdvReac Intermediate DRUGGED Verified 09/17/24 12:12 FEELING Review of Systems Constitutional: Constitutional: Reports no additional constitutional complaints, Denies chills, Denies fever(s), Reports headache(s) and Denies night sweats Eyes: Eyes: Reports no additional eye complaints, Denies blurry vision, Denies change in vision, Denies diplopia, Denies eye discharge, Denies loss of vision and Denies eye pain ENT: Denies dizziness and Reports headache(s) Cardiovascular: Cardiovascular: Reports no additional cardiovascular complaints, Denies chest pain, Denies lightheadedness, Denies Loss of Consciousness and Denies dyspnea Respiratory: Respiratory: Reports no additional respiratory complaints and Denies dyspnea Gastrointestinal: Gastrointestinal: Reports no additional gastrointestinal complaints, Denies abdominal pain, Denies melena, Denies hematochezia, Denies change in bowel habits and Denies change in stool character Genitourinary: Genitourinary: Denies hematuria, Denies urinary frequency, Denies dysuria, Denies urinary incontinence, Denies urinary hesitancy and Denies urinary urgency Musculoskeletal: Musculoskeletal: Reports no additional musculoskeletal complaints, Denies numbness and Denies tingling Neurologic: Denies dizziness, Reports headache(s), Denies loss of vision, Denies numbness and Denies tingling Psychiatric: Psychiatric: Reports no additional psychiatric complaints Endocrine: Endocrine: Reports no additional endocrine complaints Hematologic/Lymphatic: Hematologic/Lymphatic: Reports no additional hematologic/lymphatic complaints Allergic/Immunologic: Allergic/Immunologic: Reports no additional allergic/immunologic complaints [facility] Past Medical History Attestation statement: The following information was validated with the patient. Source: old records reviewed and nursing notes reviewed Medical History Pleurisy with effusion Pleurisy Pulmonary hypertension Hypercoagulable state Thyroid cancer Chronic thromboembolic disease Lower extremity edema Multinodular thyroid Family history of deep venous thrombosis Pleuritic chest pain Pulmonary emboli Dyspnea Dyspareunia in female Anemia Obstructive sleep apnea Morbid obesity History of COVID-19 (~2020) History of pulmonary embolus (PE) (~2020) Anxiety Chronic headaches Dyspnea on exertion Diabetes type 2, controlled Hypothyroid HTN (hypertension) Hyperlipidemia Surgical History History of angioplasty History of surgery on right wrist History of foot surgery History of tubal ligation History of carpal tunnel surgery History of ERCP History of laparoscopic cholecystectomy History of surgery Family History Family History Father Myocardial infarction COPD (chronic obstructive pulmonary disease) Mother COPD (chronic obstructive pulmonary disease) Brother Colitis Social History Social History Housing: House Alcohol intake: former Comment: pt d/c home Patient Tobacco Use Status: Never used Tobacco Advance Directives: Yes Advance Directives Information Provided: No Advance Directives on File: No service: No Current occupational status: employed 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, 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 Current occupational exposures/hazards: No Physical Exam ED Vital Signs: Vital Signs - 24 hr 09/17/24 12:09 09/17/24 12:40 Temperature 98.6 F 97.9 F Pulse Rate 88 81 Respiratory Rate 16 17 Blood Pressure 123/67 128/70 Pulse Oximetry 97 97 Oxygen Delivery Method Room Air Room Air BMI result Body Mass Index 40.1 Const General: cooperative, no acute distress, alert and awake Nutritional Appearance: well nourished Orientation/consciousness: patient oriented x3 Limitations: no limitations HENMT Head: Yes normal to inspection and Yes atraumatic Ears: hearing grossly normal bilaterally and external ears normal General nose exam: Normal external nose present, no nasal discharge noted and no epistaxis Face and sinus: Yes normal facial exam, No abrasion and No laceration Mouth: Normal oral and palatal mucosa present, no drooling and no muffled voice Eyes General: appearance normal, both eyes and all related structures Periorbital: periorbital findings normal Eyelids: Yes eyelids normal Conjunctivae: conjunctivae normal Pupils: Equal, round and reactive pupils present EOM: EOMs intact bilaterally Neck Neck: Yes normal visual inspection, Yes full ROM and Yes no lymphadenopathy Chest Chest palpation & inspection: normal inspection of the chest Resp Effort & Inspection: normal respiratory effort and able to speak in complete sentences GI Inspection: Yes normal to inspection Neuro General: patient oriented x3 and moves all extremities Cranial nerves: Yes Equal, round and reactive pupils present Cognition (Neuro): normal cognition Extrem General: Yes normal to inspection, Yes full ROM and Yes capillary refill normal Psych Appearance: grossly normal Mental Status: mental status grossly normal Affect: normal affect Attitude: cooperative Thought process: Normal thought process present Thought content: Normal thought content present Insight: Good insight present (Psych) NIH Stroke Scale Internal: Initial- Upon Arrival Time: 12:13 Level of Consciousness: Alert Level of Consciousness Questions: Answers both questions correctly Level of Consciousness Commands: Performs both tasks correctly Best Gaze: Normal Visual: No visual loss Facial Palsy: Normal Motor Arm (Right): No drift Motor Arm (Left): No drift Motor Leg (Right): No drift Motor Leg (Left): No drift Limb Ataxia: Absent Sensory: Normal Best Language: No aphasia Dysarthia: Normal Extinction and Inattention: No abnormality Score: 0 Course Course Course Narrative: This is an RME performed by Abdiaziz Leone CNP: Additional HPI, ROS, PE not included below will be deferred to primary provider. Patient is a 49-year-old female who presents to us from the warfarin clinic has an INR of 13.1 reporting a headache. Denies any history of frequent headaches or migraines. Headache onset was approximately 1 week ago but over the past 2 days has become increasingly worse. Denies any trauma or injury. She does admit that she has been feeling generally fatigued as well. NIH score of 0. Plan: Serum labs, CT to exclude ICH speaking with prototype technician for prompt imaging, viral serologies Medical Decision Making Medical Decision Making [facility] Narrative: Patient is a 49 year old assigned female at with a history of CKD, warfarin use for bilateral PEs, thyroid cancer, and DM presenting to the emergency department today with a headache and an elevated INR. Patient's physical exam was unremarkable. Patient's blood work showed an INR of 13.4 and a PT of 156.2 but otherwise unremarkable. Patient's head CT showed no acute process. I consulted with my attending physician, Dr. Genao, who recommended giving the patient PO Vitamin K, having her hold her warfarin, and following up with the anti-coagulation clinic on Friday. I called and spoke to the anti-coagulation clinic who agreed with this treatment plan. I explained my physical exam findings as well as all test results to the patient. I answered all questions asked by the patient. I am suspicious the patient's headache is secondary to a viral illness. I stressed the importance of the patient taking her medication as directed with the exception of her Warfarin until instructed otherwise by the anti-coagulation clinic. I stressed the importance of the patient following up with her primary care provider and the anti-coagulation clinic as directed. I stressed the importance of the patient returning to the emergency department immediately if her symptoms were to worsen or if she were to develop any dizziness, shortness of breath, difficulty breathing, chest pain, blurry vision, loss of vision, nausea, vomiting, abdominal pain, fever, chills, back pain, or any other complaints. Patient verbalized agreement and understanding with this treatment plan and discharge. Differential Diagnosis Differential Diagnoses: The differential diagnosis associated with the presentation includes Elevated INR Intracranial hemorrhage Viral illness Headache Admission/Observation Consideration of admission/observation: Escalation of care including admission/observation considered Patient would have been admitted to the hospital had her work up had any findings where hospital admission was appropriate and her clinical presentation warranted hospital admission. Lab Data [facility] Lab Attestation statement: I reviewed the patient's lab results. My interpretation of these results are in the [facility] Rationale portion of this note. 09/17/24 12:49 09/17/24 12:49 Labs: Lab Results 09/17/24 Range/Units 12:49 WBC 8.3 (4.8-10.8) X10*3/uL RBC 4.94 (4.20-5.50) X10*6/uL Hgb 10.4 L (12.0-16.0) g/dl Hct 33.7 L (37.0-47.0) % MCV 68.2 L (80.0-98.0) fL MCH 21.1 L (27.0-33.0) pg MCHC 30.9 L (31.0-35.0) g/dl RDW 18.5 H (11.0-16.0) % Plt Count 222 (160-400) X10*3/uL MPV Not Reportable Immature Gran % (Auto) 0.2 (0.0-0.4) % Neut % (Auto) 61.4 (45-73) % Lymph % (Auto) 28.2 (20-40) % [place] % (Auto) 7.3 (2-11) % Eos % (Auto) 2.3 (0-4) % Baso % (Auto) 0.6 (0-2) % Lymph # (Auto) 2.3 (1.2-4.9) X10*3/uL [place] # (Auto) 0.6 (0.1-1.2) X10*3/uL Eos # (Auto) 0.2 (0.0-0.4) X10*3/uL Baso # (Auto) 0.1 (0.0-0.2) X10*3/uL Abs Immat Gran (auto) 0.02 (0.00-0.03) X10*3/uL Absolute Neuts (auto) 5.1 (2.0-8.3) x10*3/uL Absolute Nucleated RBC 0.000 (0.0-0.012) X10*3/uL Nucleated RBC % (auto) 0.0 (0.0-0.2) /100WBC PT 156.2 H (10.9-12.4) SEC INR 13.4 H* (0.9-1.1) Sodium 146 H (135-145) mmol/L Potassium 3.3 D (3.3-5.1) mmol/L Chloride 109 H (96-108) mmol/L Carbon Dioxide 27 (22-29) mmol/L Anion Gap 13 (12-20) BUN 12 (9-16) mg/dL Creatinine 1.12 (0.5-1.4) mg/dL Estim Creat Clear Calc 73.9 Estimated GFR 51 Random Glucose 112 (60-115) mg/dL Calcium 8.8 D (8.4-10.2) mg/dL Total Bilirubin 0.4 (0.0-1.0) mg/dL AST 18 (5-31) U/L ALT 10 (0-31) U/L Alkaline Phosphatase 71 (39-117) U/L Total Protein 7.1 (6.5-8.0) g/dL Albumin 4.0 (3.5-5.0) g/dL Influenza Type A (PCR) NEGATIVE (Negative) Influenza Type B (PCR) NEGATIVE (Negative) RSV RNA Qual (PCR) NEGATIVE (Negative) SARS-CoV-2 RNA (RT-PCR) NEGATIVE (Negative) Independent Interpretation I performed an independent interpretation of an: CT Scan Interpretation: My interpretation is in agreement with the radiologist's impression of this imaging study. Report Number: [id number]: Total DLP = 642.00 mGy-cm EXAMINATION: CT HEAD WITHOUT CONTRAST CLINICAL INFORMATION: Headache. COMPARISON: CT brain 1 1.3. TECHNIQUE: Contiguous axial imaging was performed from the skull base to vertex without intravenous administration of contrast. This CT examination was performed using dose optimization techniques as appropriate, variously including the following: *Automated exposure control *Adjustment of mA and/or kV according to patient size (this includes techniques or standardized protocols for targeted exams where dose is matched to indication/reason for exam; i.e. extremities or head) *Use of iterative reconstruction technique DLP 642 FINDINGS: There is no acute intra-axial, extra-axial bleed, masses or midline shift. There is no acute infarction in evolution. There is no edema. The reaves to white matter differentiation is maintained normal. The lateral ventricles are symmetrical in size and configuration without enlargement. Bone windows reveal no calvarial abnormality. There is no scalp soft tissue abnormality. Bilateral paranasal sinuses and mastoid air cells are well-aerated. CT/CT head/brain wo IV con IMPRESSION: No acute intracranial process seen. Electronically signed by: Cristofer Fabiana MD 09/17/2024 01:12 PM [facility] Dictated By: Cristofer Jung MD Signed By: Electronically signed by Cristofer Jung MD 09/17/24 1312 Radiology Impression Discussion of test interpretation with radiology: I have reviewed the radiologist's reading. Discharge Plan Discharge Clinical Impression: Elevated INR, Headache Patient Disposition: Home, Self-Care Instructions: Acute Headache (DC), Elevated INR (ED) Additional Instructions: Your work up today was reassuring that your elevated INR has not negatively impacted you. You were given 5mg of Vitamin K today in hopes of lowering your INR level closer to the therapeutic range. Do NOT take your Warfarin until told to do so by the Anti-coagulation clinic. You have an appointment with them for an INR check on 09/20/2024 at 11:15am. Please be sure to charge your oxygen machine. Follow up with your primary care provider. Return to the emergency department immediately if your headache worsens or you develop any dizziness, shortness of breath, difficulty breathing, chest pain, blurry vision, loss of vision, nausea, vomiting, abdominal pain, fever, chills, back pain, or any other complaints. Prescriptions: No Action albuterol sulfate [Ventolin HFA] 90 mcg/actuation HFA aerosol inhaler 2 puff inhalation Q6H PRN (Reason: for wheezing) Qty: 18 12RF warfarin 5 mg tablet 5 mg PO DAILY 30 Days Qty: 30 6RF Protocol: Dose Management Condition: Friday (Week One) Dose/Route: 2.5 mg Instruction: 0.5 x 5 mg tablets Condition: Friday Dose/Route: 2.5 mg Instruction: 0.5 x 5 mg tablets Condition: Friday Dose/Route: 2.5 mg Instruction: 0.5 x 5 mg tablets Condition: Friday Dose/Route: 5 mg Instruction: 1 x 5 mg tablet Condition: Dose/Route: 2.5 mg Instruction: 0.5 x 5 mg tablets Condition: Friday Dose/Route: 0 mg Instruction: 0 tablets Condition: Friday Dose/Route: 0 mg Instruction: 0 tablets Condition: Friday (Week Two) Dose/Route: 0 mg Instruction: 0 tablets Condition: Friday Dose/Route: 2.5 mg Instruction: 0.5 x 5 mg tablets Condition: Friday Dose/Route: 2.5 mg Instruction: 0.5 x 5 mg tablets Condition: Friday Dose/Route: 5 mg Instruction: 1 x 5 mg tablet Condition: Dose/Route: 2.5 mg Instruction: 0.5 x 5 mg tablets Condition: Friday Dose/Route: 2.5 mg Instruction: 0.5 x 5 mg tablets Condition: Friday Dose/Route: 2.5 mg Instruction: 0.5 x 5 mg tablets Protocol Text: Adjustment Start Date: Friday09/17/24 INR Value: 13.1 INR Date: 09/17/24 Recheck Date: 09/20/24 sildenafil (pulm.hypertension) 20 mg tablet 20 mg PO TID 30 Days Qty: 90 6RF Rx Instructions: administer doses at least 4-6 hours apart (DME) FreeStyle Lite Strips Strip See Rx Instructions Not Applicable BID Qty: 10 Rx Instructions: As directed levothyroxine 50 mcg tablet 50 mcg PO DAILY acetaminophen 650 mg tablet extended release 650 mg PO Q6H PRN (Reason: pain) (DME) nebulizers Misc See Rx Instructions .Route Rx Instructions: As directed Mounjaro 7.5 mg/0.5 mL pen injector 7.5 mg subcut QWEEK Qty: 2 3RF albuterol sulfate 2.5 mg /3 mL (0.083 %) solution for nebulization 2.5 mg inhalation Q4H PRN (Reason: Wheezing) (DME) Oxygen Home Use Kit See Rx Instructions .Route Rx Instructions: As directed metformin 1,000 mg tablet 1,000 mg PO BID ferrous gluconate 324 mg (38 mg iron) tablet 324 mg PO DAILY sertraline 100 mg tablet 100 mg PO DAILY rosuvastatin 10 mg tablet 10 mg PO BEDTIME Referrals: Deena Workman MD [Primary Care Provider] - Stand Alone Forms: Work/School Release Print Language: Ukrainian
[2024-09-17 12:09] VITALS: BP 123/67; PULSE 88; RESP 16; TEMP 37; O2SAT 97; BMI 40.1
[2024-09-17 12:40] VITALS: BP 128/70; PULSE 81; RESP 17; TEMP 36.6; O2SAT 97
[2024-09-17 12:53] LABS: MANUAL DIFF FLAG NO
[2024-09-17 12:57] LABS: Basophils Absolute Auto 0.1 X10*3/uL (0.0-0.2); Basophils Percent Auto 0.6 % (0-2); Eosinophils Absolute Auto 0.2 X10*3/uL (0.0-0.4); Eosinophils Percent Auto 2.3 % (0-4); Hematocrit 33.7 % (37.0-47.0); Hemoglobin 10.4 g/dl (12.0-16.0); Imm Gran Abs Auto 0.02 X10*3/uL (0.00-0.03); Imm Gran Pct Auto 0.2 % (0.0-0.4); Lymphocytes Absolute Auto 2.3 X10*3/uL (1.2-4.9); Lymphocytes Percent Auto 28.2 % (20-40); Mean Corpuscular HGB Conc 30.9 g/dl (31.0-35.0); Mean Corpuscular Hemoglobin 21.1 pg (27.0-33.0); Mean Corpuscular Volume 68.2 fL (80.0-98.0); Monocytes Absolute Auto 0.6 X10*3/uL (0.1-1.2); Monocytes Percent Auto 7.3 % (2-11); Neutrophils Absolute Auto 5.1 x10*3/uL (2.0-8.3); Neutrophils Percent Auto 61.4 % (45-73); Platelet Count 222 X10*3/uL (160-400); Red Blood Count 4.94 X10*6/uL (4.20-5.50); Red Cell Distribution Width 18.5 % (11.0-16.0); White Blood Count 8.3 X10*3/uL (4.8-10.8)
[2024-09-17 13:06] LABS: Prothrombin Time 156.2 SEC (10.9-12.4)
[2024-09-17 13:09] LABS: Alanine Aminotransferase 10 U/L (0-31); Alkaline Phosphatase 71 U/L (39-117); Anion Gap 13 (12-20); Aspartate Amino Transferase 18 U/L (5-31); Bilirubin Total 0.4 mg/dL (0.0-1.0); Blood Urea Nitrogen 12 mg/dL (9-16); Calcium 8.8 mg/dL (8.4-10.2); Carbon Dioxide 27 mmol/L (22-29); Chloride 109 mmol/L (96-108); Creatinine Clr Calc Pharmacy 73.9; Estimated Glomerular Filt Rate 51; Glucose Random 112 mg/dL (60-115); Potassium 3.3 mmol/L (3.3-5.1); Sodium 146 mmol/L (135-145); Total Protein 7.1 g/dL (6.5-8.0)
[2024-09-17 13:10] LABS: INTERNATIONAL NORM RATIO 13.4 (0.9-1.1)
[2024-09-17 13:31] LABS: Influenza A PCR NEGATIVE (Negative); Influenza B PCR NEGATIVE (Negative); Resp Syncy Virus RNA Qual PCR NEGATIVE (Negative); SARS COV2 PCR INHOUSE NEGATIVE (Negative)
[2024-09-17 14:13] VITALS: BP 128/67; PULSE 73; RESP 17; TEMP 36.7; O2SAT 99
[2024-09-17] MEDS: Phytonadione (Vit K1) Oral 10 MG/ML AMPUL 5 MG PO (14:19)
[2024-09-17 14:29] VITALS: BP 128/67; PULSE 73; RESP 17; TEMP 36.7; O2SAT 99
== END 2024-09-17 14:30 | disposition home or self-care (01) ==
PROVIDERS: Nurse Practitioner Family; Emergency Provider Emergency Medicine; PCP Internal Medicine
DX: R51.9 Headache, unspecified (principal); R79.89 Other specified abnormal findings of blood chemistry; E11.9 Type 2 diabetes mellitus without complications; Z03.818 Encounter for observation for suspected exposure to other biological agents ruled out; Z86.711 Personal history of pulmonary embolism; Z79.01 Long term (current) use of anticoagulants; Z79.84 Long term (current) use of oral hypoglycemic drugs
CPT/HCPCS: 0241U; 36415; 70450; 80053; 85025; 85610; 99283

== ENCOUNTER → 2024-09-17 12:12 | Outpatient (BNV) | payer OTHER, SELFPAY | PROVIDERS: Emergency Provider Emergency Medicine; PCP Internal Medicine; Visit Provider Radiology Diagnostic Radiology | DX: R51.9 Headache, unspecified (principal) | CPT/HCPCS: 70450 ==

== ENCOUNTER 2024-09-20 11:10 | Outpatient (AMB) | payer OTHER, SELFPAY ==
[2024-09-20 11:24] LABS: Prothrombin Time Whole Bld POC 20.2 sec (11.1-13.5); ~PT, ~INR - Anti Coag Clinic 1.7 (0.9-1.1)
--- NOTE | 2024-09-20 11:33 | MHC.OFFVISCO ---
Intake Intake Visit Reasons: Anticoagulation Allergies lisinopril [LISINOPRIL] Allergy (Severe, Verified 09/20/24 11:17) ANGIOEDEMA dapagliflozin [From FARXIGA] Allergy (Intermediate, Verified 09/20/24 11:17) HIVES liraglutide [From VICTOZA] Allergy (Intermediate, Verified 09/20/24 11:17) RASH metformin [METFORMIN] Allergy (Intermediate, Verified 09/20/24 11:17) GI UPSET erythromycin base [ERYTHROMYCIN BASE] Allergy (Unknown, Verified 09/20/24 11:17) UNKNOWN amitriptyline [AMITRIPTYLINE] Adverse Reaction (Intermediate, Verified 09/20/24 11:17) DRUGGED FEELING Medication List - Last Reconciled 09/20/24 by Francine Mitchell RN acetaminophen ER 650 mg PO Q6H PRN albuterol sulfate 2.5 mg inhalation Q4H PRN albuterol sulfate 90 mcg/actuation (Ventolin HFA) 2 puffs inhalation Q6H PRN blood sugar diagnostic (FreeStyle Lite Strips) As directed ferrous gluconate 324 mg PO DAILY levothyroxine 50 mcg PO DAILY metformin 1,000 mg PO BID nebulizers As directed Oxygen Home Use As directed rosuvastatin 10 mg PO BEDTIME sertraline 100 mg PO DAILY sildenafil (pulm.hypertension) 20 mg PO TID 30 days tirzepatide (Mounjaro) 7.5 mg (0.5 mL) subcut QWEEK warfarin 5 mg See Protocol PO DAILY 30 days Nursing Note INR: 1.7?out of therapeutic range 2-3 Previous INR 3 days ago was 13.1 and pt sent to ER. Pt received Vit K 5mg in ER. Had vague symptoms of headache, lethargy, body aches and mild SOB. Had Ct of head which was negative. Medications and supplements reviewed Patient status: Still feeling unwell Medications or supplements: no other changes Diet: usual diet for pt Denies any signs and symptoms of bleeding or clotting or unusual bruising Bleeding, bruising, clotting discussed Nutritional guidance given: to avoid greens the next 2 days Dose: restart usual dose of 2.5mg today with an increase tomorrow to 5mg then 2.5mg daily F/U INR Date : 1 week?? Patient verbalizing understanding of instructions given. Anti-Coag Initial Assessment Social Hx Patient Tobacco Use Status: Never used Tobacco alcohol intake: former Alcohol intake frequency: does not drink Cardiovascular Hx: HTN Lung Disease HX: DVT/PE Endocrine Hx: Thyroid Disease Musculoskeletal Hx: Arthritis Blood Disorder Hx: Anemia and Hyperlipidemia GI Hx: Ulcers, Diverticulosis and Hemorrhoids Hx: Other Neurological Hx: Migraines/Headaches and Other Cancer HX: No Psych. Illness/Depression: Yes Coding Level of Care Code Est Patient Level 1 Diagnoses Current use of anticoagulant therapy Z79.01 Assessment & Plan Assessment & Plan (1) Current use of anticoagulant therapy: Code(s): Z79.01 - longterm (current) use of anticoagulants Category: Medical
--- OUTSIDE RECORDS SUMMARY | 2024-09-20 13:02 | XMS_ITS ---
Author Organization Dario Urbano III, MD Address [address] [place] [address] Care Team Providers Care Hat Liner Name Role Phone Jacinta ANGULO, [facility] Primary Care Provider Dario Slater [phone] Allergies Allergen (clinical drug ingredient) Drug/Non Drug [...] Date Provider Diagnosis Dario Urbano III, MD [address] [place] [address] [address] [facility] [place] [address] 08/08/2023 Dario Urbano Iron deficiency anem ia, [...] (ICD-10 - E03.9) She says is her regional transportation manager was going to put her on thyroid replacement. 08/08/2023 Adult onset diabetes mellitus with ketoacidosis (ICD-10 - E11.10) She has been compliant with her medications, which are prescribed by primary care. 08/08/2023 Morbid obesity (ICD-10 - E66.01) We discussed diet and nutrition. I recommended aggressive weight loss. I recommended she consider the weight loss surgery program at [facility]. She has gained 10 pounds since [...] OV Provider Name:Dario Urbano, 09/29/2024 02:00:00 PM, [address] [place] [address], [place] [address], [place], [address], Progress Notes * Domonique SANTILLAN SDOB:1975 (47 yo F)Acc No.[id number]:08/08/2023 Patient:?Domonique Santillan S Provider:?Dario Urbano MD :1975???Age:47 Y???Sex:Female D ate:08/08/2023 Address[address] [id number] Pcp:Deena Workman MD Subjective: * Chief Complaints: * ???Hurtle cell tumor, right mid thyroidDiabetes mellitusHypothyroidMorbid obesityIron exxtuwgxxaG73 deficiencyPulmonary emboli requiring a series of angioplastiesFactor V Leiden mutation * HPI: ???:?Telehealth?Location of provider rendering services:?{...} [address] [place] [address] ?Location of patient:?address listed in demographics for [...] doctor, Dr. Land, has sent her to [facility] for a series of angioplasties of blockages in the blood vessels in her lung to relieve dyspnea . She has another such procedure scheduled August 11. I have requested the details from Dr. Land. She is now on Lovenox prior to the procedure and said her warfarin. The procedure is done at [facility]. Her diabetes is better and her regional transportation manager, Dr. Lovelace, has begun her on tirzepatide [...] hypothyroidism - E03.9, She says is her regional transportation manager was going to put her on thyroid replacement.?4.?Adult onset diabetes mellitus with ketoacidosis - E11.10, She has been compliant with her medications, which are prescribed by primary care.?5.?Morbid obesity - E66.01, We discussed diet and nutrition. I recommended aggressive weight loss. I recommended she consider the weight loss surgery program at [facility]. She has gained 10 pounds since [...] be discussed.? Plan: * Treatment: * Procedure Codes:?46772 PHONE E/M BY PHYS 5-10 MIN * [...] Urbano MD Date:?09/2022 Generated for Satish lai/Nettie/eTransmitting on:?09/20/2024 01:02 PM EST History and Physical Notes * HPI (History of Present Illness) Category Sub-Category Detail Notes Telehealth Location of [facility] rendering services:: {...} [address] [place] [address] Location of patient:: address listed in demographics [...]
--- OUTSIDE RECORDS SUMMARY | 2024-09-20 13:02 | XMS_ITS | Patient Health Record ---
Author Organization [facility] Address [address] [place] [address] Care Team Providers Care Evp Chief Exploration Officer Name Role Phone Deena Workman Primary Care Provider Unavailab Dario Holbrook Unavailable [phone] ALLERGIES Allergen (clinical drug ingredient) Drug/Non Drug [...] (K58.9) Active confirmed Irritable b owel syndrome (85372673) Problem Colon cancer screening (Z12.11) Active confirmed Colon cancer screening (801071417) Problem Microcytic anemia (D50.9) Active confirmed Microcytic anem ia (974646359) Problem Diverticulosis of colon (K57.30) Active confirmed Diverticulosi s of colon (491403640) PLAN OF TREATMENT Pending Test Test Name Order Date CELIAC PANEL #10 05/22/2022 Future Test Test Name Order Date COLONOSCOPY 05/22/2022 Next Appt Details Provider Name:Dario Ramsey , 10/07/2024 10:40:00 AM, [address] [place] [address], [address], [place], [address], Insurance Providers Payer Name Payer Address Payer Phone Subscriber Number Group Number Insured Name Patient Relationship to Insured Coverage Start Date Coverage End Date [facility] [address] [address] [place], [place] [id number] KASANDRA SANTILLAN Self - patient is the insured MEDICAL (GENERAL) HISTORY Medical History History ICD Code ERCP with sphincterotomy 10-30-2001 Pulmonary emboli with COVID 10/2020-she describes a two-week hospitalization although did not require intubation. She describes having been left with some respiratory issues for which she is seeing Dr. Land. She also describes some residual brain fog Arthritis Denies MD,CVA,renal disease NIDDM Anemia from heavy menses IBS with diarrhea Surgical History Surgery Date(Month/Year) CCY 2001 BTL 2001 Bilateral carpal tunnel 2017 Right foot 1999 Right wrist 04/2022
--- OUTSIDE RECORDS SUMMARY | 2024-09-20 13:02 | XMS_ITS ---
Author Organization Dario Ubrano III, MD Address [address] [place] [address] Care Team Providers Care Filtrose Crusher Name Role Phone Jacinta ANGULO, [facility] Primary Care Provider Dario Slater [phone] Allergies Allergen (clinical drug ingredient) Drug/Non Drug [...] Date Provider Diagnosis Dario Urbano III, MD [address] [place] [address] [place] [address] 09/29/2023 Dario Urbano Morbid obesity E66.0 1 [...] consider the weight loss surgery program at [facility]. She has gained 10 pounds since [...] (ICD-10 - E03.9) She says is her auction clerk was going to put her on thyroid [...] series of pulmonary artery angioplasties at the the next of which will be in [...] 1 Year, Reason: O V Provider Name:Dario Urabno, 09/29/2024 02:00:00 PM, [address] [place] [address] [address] [place] [address], [place], [address], Progress Notes * Domonique SANTILLAN SDOB:1975 (48 yo F)Acc No.[id number]:09/29/2023 Progress Notes Patient:?Santillan, Domonique S Provider:?Dario Urbano MD :1975???Age:48 Y???Sex:Female D ate:09/29/2023 Address:[address] [place] [address] [id number] Pcp:Deena Workman MD Subjective: * Chief Complaints: [...] consider the weight loss surgery program at [facility]. She has gained 10 pounds since [...] hypothyroidism - E03.9, She says is her auction clerk was going to put her on thyroid replacement.?8.?Pulmonary embolism, unspecified chronicity, unspecified pulmonary embolism type, unspecified whether acute cor pulmonale present - I26.99, She was breathing comfortably today and has had no further episodes of dizziness or arterial thromboembolism. She had multiple pulmonary emboli/2022.These have caused dyspnea with exertion and she is undergoing a series of pulmonary artery angioplasties at the the next of which will be in [...] Urbano MD Date:?09/09 Generated for Printi ng/Nettie/eTransmitting on:?09/20/2024 01:01 PM EST History and Physical Notes * HPI (History of Present Illness) Category Sub-Category Detail Notes COVID-19 Screening Questions Have you had any new onset fever, chills, cough, congestion, sore throat, shortness of breath, muscle aches?: No Have you been exposed to the virus withi n the last 10 days?: No Have you travelled internationally in [facility] last 10 days?: No Have you [...]
--- OUTSIDE RECORDS SUMMARY | 2024-09-20 13:02 | XMS_ITS ---
Author Organization Dario Urbano III, MD Address [address] [place] [address] Care Team Providers Care Network Strategist Name Role Phone Jacinta ANGULO, Deena Primary Care Provider Dario Slater [phone] REASON FOR VISIT Follow-up Encounters Encounter Location Date Provider Diagnosis Dario Urbano III, MD [address] [place] [address] [place] [address] 09/09/2023 Dario Urbano Plan Of Treatment Next Appt Details Provider Name:Dario Urbano, 09/29/2024 02:00:00 PM, [address] [place] [address] [place], [address], Progress Notes * TYRELL Domonique SDOB:1975 (49 yo F)Acc No.[id number]:09/09/2023 Progress Notes Patient:?Domonique SANTILLAN Provider:?Dario Urbano MD :1975???Age:48 Y???Sex:Female D ate:09/09/2023 Address: [id number] Pcp:Deena Workman MD Subjective: * Chief Complaints: [...] Urbano MD Date:?10/2023 Generated for Satish lai/Nettie/eTmartínezsmitting on:?09/20/2024 01:01 PM EST History and Physical Notes * HPI (History of Present Illness) Category Sub-Category Detail Notes COVID-19 Screening Questions Have you had any new onset fever, chills, cough, congestion, sore throat, shortness of breath, muscle aches?: No Have you been exposed to the virus withi n the last 10 days?: No Have you travelled internationally in [facility] last 10 days?: No Have you [...]
--- OUTSIDE RECORDS SUMMARY | 2024-09-20 13:02 | XMS_ITS | Patient Health Record ---
Author Organization Dario Urbano III, MD Address [address] [place] [address] Care Team Providers Care Rating Specialist Name Role Phone Jacinta ANGULO, [facility] Primary Care Provider Dario Slater [phone] Allergies Allergen (clinical drug ingredient) Drug/Non Drug [...] Problem Status W/U Status Risk Notes Problem 66688185 Dysthymic disorder (F34.1) Active confirmed Her depress ion is mild and I will recommend no change in her current medications. Problem 466190074 Acquired hypothyroidism (E03.9) Active confirmed She says is her social sciences lecturer was going to put her on thyroid replacement. Problem 394637483 Vitamin B 12 deficiency (E53.8) Active confirmed A B12 level is not available at this time. She was continued on current therapy and the value will be followed. 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 She has been referred to [facility] for thyroidectomy. This will require cessation of her anticoagulation. Problem 492996101 History of cholecystectomy (Z90.49) Active confirmed Problem 752695287 Thrombophilia (D68.59) Active confirmed She has a thrombophilia in view of the positive factor V Leiden. Because of multiple pulmonary emboli. I have recommended indefinite anticoagulation. She is agreeable to this. Problem 69807544 Iron deficiency anemia, unspecified iron deficiency anemia type (D50.9) Active confirmed Her mean cell volume is 77 and her ferritin is 20. Her iron was resumed. She was given a followup visit after more blood work. Problem 855755027 Morbid obesity (E66.01) Active confirmed We discussed diet and nutrition. I recommended aggressive weight loss. I recommended she consider the weight loss surgery program at [facility]. She has gained 10 pounds since her last visit. Problem 35134131 Adult onset diabetes mellitus with ketoacidosis (E11.10) Active confirmed She has been compliant with her medications, which are prescribed by primary care. 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 She had multiple pulmonary emboli/2022.These have caused dyspnea with exertion and she is undergoing a series of pulmonary artery angioplasties at the [facility] the next of which will be in August2023. Vital Signs Heart Rate 99 /min 09/29/2023 Temperature 97.7 degrees Fahrenheit 09/29/2023 Height 64 in 09/29/2023 Weight 302 lbs 09/29/2023 BMI 51.83 kg/m2 09/29/2023 Encounters Encounter Location Date Provider Diagnosis Dario Urbano III, MD [address] [place] [address] [place] [address] 09/29/2023 Dario Urbano Morbid obesity E66.0 1 [...] consider the weight loss surgery program at [facility]. She has gained 10 pounds since [...] (ICD-10 - E03.9) She says is her social sciences lecturer was going to put her on thyroid [...] series of pulmonary artery angioplasties at the [facility] the next of which will be [...] Provider Name:Dario Urbano, 09/29/2024 02:00:00 PM, [address], [place], [address], Insurance Providers Payer Name Payer Address Payer Phone Subscriber Number Group Number Insured Name Patient Relationship to Insured Coverage Start Date Coverage End Date [employer] [address] [address] [place] [address] [id number] Domonique Bro Self - patient is the insured MEDICAID [address] [place], [place] [id number] Domonique Bro Self - patient is the insured Medical (General) History Medical History History ICD Code Hyperlipidemia, unspecified hyperlipidem ia type E78.5 Postcholecystectomy syndrome K91.5 Dysmenorrhea N94.6 Morbid obesity E66.01 Dysthymic disorder F34.1 Anemia, unspecified type D64.9 Type 2 diabetes mellitus wit h complication, unspecified whether rat exterminator insulin use E11.8 G6 carpal tunnel [...]
== END 2024-09-20 15:28 | disposition home or self-care (01) ==
LOC: HO.ACS 11:10
PROVIDERS: PCP Internal Medicine; Visit Provider Internal Medicine
DX: Z79.01 Long term (current) use of anticoagulants (principal)

== ENCOUNTER → 2024-09-20 11:10 | Outpatient (BNVA) | payer OTHER, SELFPAY | PROVIDERS: PCP Internal Medicine; Visit Provider Internal Medicine | DX: I26.99 Other pulmonary embolism without acute cor pulmonale (principal); Z79.01 Long term (current) use of anticoagulants; Z51.81 Encounter for therapeutic drug level monitoring | CPT/HCPCS: 85610; 99211 ==

== ENCOUNTER 2024-09-27 11:06 | Outpatient (AMB) | payer OTHER, SELFPAY ==
[2024-09-27 11:12] LABS: Prothrombin Time Whole Bld POC 15.2 sec (11.1-13.5); ~PT, ~INR - Anti Coag Clinic 1.3 (0.9-1.1)
--- NOTE | 2024-09-27 11:33 | MHC.OFFVISCO ---
Intake Intake Visit Reasons: Anticoagulation Allergies lisinopril [LISINOPRIL] Allergy (Severe, Verified 09/27/24 11:07) ANGIOEDEMA dapagliflozin [From FARXIGA] Allergy (Intermediate, Verified 09/27/24 11:07) HIVES liraglutide [From VICTOZA] Allergy (Intermediate, Verified 09/27/24 11:07) RASH metformin [METFORMIN] Allergy (Intermediate, Verified 09/27/24 11:07) GI UPSET erythromycin base [ERYTHROMYCIN BASE] Allergy (Unknown, Verified 09/27/24 11:07) UNKNOWN amitriptyline [AMITRIPTYLINE] Adverse Reaction (Intermediate, Verified 09/27/24 11:07) DRUGGED FEELING Medication List - Last Reconciled 09/27/24 by Francine Mitchell RN acetaminophen ER 650 mg PO Q6H PRN albuterol sulfate 2.5 mg inhalation Q4H PRN albuterol sulfate 90 mcg/actuation (Ventolin HFA) 2 puffs inhalation Q6H PRN blood sugar diagnostic (FreeStyle Lite Strips) As directed ferrous gluconate 324 mg PO DAILY levothyroxine 50 mcg PO DAILY metformin 1,000 mg PO BID nebulizers As directed Oxygen Home Use As directed rosuvastatin 10 mg PO BEDTIME sertraline 100 mg PO DAILY sildenafil (pulm.hypertension) 20 mg PO TID 30 days tirzepatide (Mounjaro) 7.5 mg (0.5 mL) subcut QWEEK warfarin 5 mg See Protocol PO DAILY 30 days Nursing Note INR: 1.3?out of therapeutic range 2-3 Medications and supplements reviewed Patient status: Feels better. Using portable O2. Medications or supplements: no changes Diet: no change Denies any signs and symptoms of bleeding or clotting or unusual bruising Bleeding, bruising, clotting discussed Nutritional guidance given: to avoid greens until INR therapeutic Dose: increase today's dose to 7.5mg, then 5mg tomorrow then return for re-check of INR F/U INR Date : 09/29/24?? Patient verbalizing understanding of instructions given. T/C to Dr Workman's office and msg given of Critical INR 1.[address] Land with INR and dosing plan and next retest date. Anti-Coag Initial Assessment Social Hx Patient Tobacco Use Status: Never used Tobacco alcohol intake: former Alcohol intake frequency: does not drink Cardiovascular Hx: HTN Lung Disease HX: DVT/PE Endocrine Hx: Thyroid Disease Musculoskeletal Hx: Arthritis Blood Disorder Hx: Anemia and Hyperlipidemia GI Hx: Ulcers, Diverticulosis and Hemorrhoids Hx: Other Neurological Hx: Migraines/Headaches and Other Cancer HX: No Psych. 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
== END 2024-09-27 11:52 | disposition home or self-care (01) ==
LOC: HO.ACS 11:06
PROVIDERS: PCP Internal Medicine; Visit Provider Internal Medicine
DX: Z79.01 Long term (current) use of anticoagulants (principal)

== ENCOUNTER → 2024-09-27 11:06 | Outpatient (BNVA) | payer OTHER, SELFPAY | PROVIDERS: PCP Internal Medicine; Visit Provider Internal Medicine | DX: I26.99 Other pulmonary embolism without acute cor pulmonale (principal); Z79.01 Long term (current) use of anticoagulants; Z51.81 Encounter for therapeutic drug level monitoring | CPT/HCPCS: 85610; 99211 ==

== ENCOUNTER 2024-09-29 13:23 | Outpatient (AMB) | payer OTHER, SELFPAY ==
[2024-09-29 13:40] LABS: Prothrombin Time Whole Bld POC 13.5 sec (11.1-13.5); ~PT, ~INR - Anti Coag Clinic 1.1 (0.9-1.1)
--- NOTE | 2024-09-29 13:46 | MHC.OFFVISCO ---
Intake Intake Visit Reasons: Anticoagulation Allergies lisinopril [LISINOPRIL] Allergy (Severe, Verified 09/29/24 13:30) ANGIOEDEMA dapagliflozin [From FARXIGA] Allergy (Intermediate, Verified 09/29/24 13:30) HIVES liraglutide [From VICTOZA] Allergy (Intermediate, Verified 09/29/24 13:30) RASH metformin [METFORMIN] Allergy (Intermediate, Verified 09/29/24 13:30) GI UPSET erythromycin base [ERYTHROMYCIN BASE] Allergy (Unknown, Verified 09/29/24 13:30) UNKNOWN amitriptyline [AMITRIPTYLINE] Adverse Reaction (Intermediate, Verified 09/29/24 13:30) DRUGGED FEELING Medication List - Last Reconciled 09/29/24 by Linh Mcnulty RN acetaminophen ER 650 mg PO Q6H PRN albuterol sulfate 2.5 mg inhalation Q4H PRN albuterol sulfate 90 mcg/actuation (Ventolin HFA) 2 puffs inhalation Q6H PRN blood sugar diagnostic (FreeStyle Lite Strips) As directed ferrous gluconate 324 mg PO DAILY levothyroxine 50 mcg PO DAILY metformin 1,000 mg PO BID nebulizers As directed Oxygen Home Use As directed rosuvastatin 10 mg PO BEDTIME sertraline 100 mg PO DAILY sildenafil (pulm.hypertension) 20 mg PO TID 30 days tirzepatide (Mounjaro) 7.5 mg (0.5 mL) subcut QWEEK warfarin 5 mg See Protocol PO DAILY 30 days Nursing Note INR 1.1-? out of therapeutic range of 2-3 Medications and supplements reviewed Patient status: pt denies missed doses Medications or supplements: no changes Diet: same Denies any signs and symptoms of bleeding or clotting or unusual bruising Bleeding, bruising, clotting discussed Nutritional guidance given: no greens , eat reds to raise Dose: 5mg today and tomm F/U INR Date : fri10/01/24? Patient verbalizing understanding of instructions given. pcp office called with low inr/dosing and f/u appt. spoke to jose rafael at 1345. ? lovenox. composed note to Dr Land Anti-Coag Initial Assessment Social Hx Patient Tobacco Use Status: Never used Tobacco alcohol intake: former Alcohol intake frequency: does not drink Cardiovascular Hx: HTN Lung Disease HX: DVT/PE Endocrine Hx: Thyroid Disease Musculoskeletal Hx: Arthritis Blood Disorder Hx: Anemia and Hyperlipidemia GI Hx: Ulcers, Diverticulosis and Hemorrhoids Hx: Other Neurological Hx: Migraines/Headaches and Other Cancer HX: No Psych. Illness/Depression: Yes Coding Level of Care Code Est Patient Level 1 Diagnoses Current use of anticoagulant therapy Z79.01 Results AMB INR Fingerstick AMB INR Fingerstick 1.1 Last Edit by Linh Mcnulty RN on 09/29/24 13:40 interface delay Assessment & Plan Assessment & Plan (1) Current use of anticoagulant therapy: Code(s): Z79.01 - residential (current) use of anticoagulants Category: Medical
--- OUTSIDE RECORDS SUMMARY | 2024-09-29 15:29 | XMS_ITS | Clinical Summary ---
Author Organization [facility] it Address [address] [place] [address] Care Team Providers Care Land Surveyor Assistant Name Role Phone Unavailable Primary Care Provider Unavailabl e Social History Tobacco Use Types Packs/Day Years Used Date Smoking Tobacco: Never Assessed Sex and Gender Information Value Date Recorded Sex Assigned at Not on file Gender Identity Not on file Sexual Orientation Not on file Plan of Treatment Health Maintenance Due Date Last Done Comments Breast Cancer Screening 1975 DTaP,Tdap,and Td Vaccines (1 - Tdap) 1993 Hepatitis B Vaccines (1 of 3 - 19+ 3-dose series) 1993 Cervical Cancer Screening: P ap Smear 1995 COVID-19 Vaccine ( - 2023-2 5 season) 2024 Influenza Vaccine (#1) 2024 Zoster Vaccines (1 of 2) 2024 HIB Vaccines Aged Out No longer eligi ble based on patient's age to complete this topic HPV Vaccines Aged Out No longer eligi ble based on patient's age to complete this topic Hepatitis A Vaccines Aged Out No long er eligible based on patient's age to complete this topic IPV Vaccines Aged Out No longer eligi ble based on patient's age to complete this topic MMR Vaccines Aged Out No longer eligi ble based on patient's age to complete this topic Meningococcal ACWY Vaccine Aged Out N o longer eligible based on patient's age to complete this topic Pneumococcal Vaccine: Pediat rics (0 to 5 Years) and At-Risk Patients (6 to 64 Years) Aged Out No longer eligible b ased on patient's age to complete this topic RSV Immunization Patients Un landon 20 months Aged Out No longer eligible b ased on patient's age to complete this topic Varicella Vaccines Aged Out No longer eligible based on patient's age to complete this topic Advance Directives Documents on File Type Date Recorded 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
== END 2024-09-29 13:55 | disposition home or self-care (01) ==
LOC: HO.ACS 13:23
PROVIDERS: PCP Internal Medicine; Visit Provider Internal Medicine
DX: Z79.01 Long term (current) use of anticoagulants (principal)

== ENCOUNTER → 2024-09-29 13:23 | Outpatient (BNVA) | payer OTHER, SELFPAY | PROVIDERS: PCP Internal Medicine; Visit Provider Internal Medicine | DX: I26.99 Other pulmonary embolism without acute cor pulmonale (principal); Z79.01 Long term (current) use of anticoagulants; Z51.81 Encounter for therapeutic drug level monitoring | CPT/HCPCS: 85610; 99211 ==

== ENCOUNTER 2024-10-04 08:15 | Outpatient (AMB) | payer OTHER, SELFPAY ==
[2024-10-04 08:26] LABS: Prothrombin Time Whole Bld POC 12.9 sec (11.1-13.5); ~PT, ~INR - Anti Coag Clinic 1.1 (0.9-1.1)
--- NOTE | 2024-10-04 08:38 | MHC.OFFVISCO ---
Intake Intake Visit Reasons: Anticoagulation Allergies lisinopril [LISINOPRIL] Allergy (Severe, Verified 10/04/24 08:18) ANGIOEDEMA dapagliflozin [From FARXIGA] Allergy (Intermediate, Verified 10/04/24 08:18) HIVES liraglutide [From VICTOZA] Allergy (Intermediate, Verified 10/04/24 08:18) RASH metformin [METFORMIN] Allergy (Intermediate, Verified 10/04/24 08:18) GI UPSET erythromycin base [ERYTHROMYCIN BASE] Allergy (Unknown, Verified 10/04/24 08:18) UNKNOWN amitriptyline [AMITRIPTYLINE] Adverse Reaction (Intermediate, Verified 10/04/24 08:18) DRUGGED FEELING Medication List - Last Reconciled 10/04/24 by Francine Mitchell RN acetaminophen ER 650 mg PO Q6H PRN albuterol sulfate 2.5 mg inhalation Q4H PRN albuterol sulfate 90 mcg/actuation (Ventolin HFA) 2 puffs inhalation Q6H PRN blood sugar diagnostic (FreeStyle Lite Strips) As directed enoxaparin (Lovenox) 100 mg subcut Q12H 5 days ferrous gluconate 324 mg PO DAILY levothyroxine 50 mcg PO DAILY metformin 1,000 mg PO BID nebulizers As directed Oxygen Home Use As directed rosuvastatin 10 mg PO BEDTIME sertraline 100 mg PO DAILY sildenafil (pulm.hypertension) 20 mg PO TID 30 days tirzepatide (Mounjaro) 7.5 mg (0.5 mL) subcut QWEEK warfarin 5 mg See Protocol PO DAILY 30 days Nursing Note Pt to ACS on O2 2L. SOB with exertion. INR is 1.1?out of therapeutic range of 2-3 INR difficult to get therapeutic after pt receiving Vit K in ER on 09/17/24, just over 2 weeks ago. Pt denies missed dose and denies change in medicine other than starting lovenox on Fri10/01/24 Medications and supplements reviewed: no changes Patient status: usual state of health, no energy. Diet: usual diet for pt Denies any signs and symptoms of bleeding or clotting or unusual bruising Bleeding, bruising, clotting discussed Nutritional guidance given: to avoid greens Dose: 7.5mg today and tomorrow, then 5mg the next day then return to ACS. F/U INR Date : 10/07/[address] Land notified of critical INR with dosing plan and next re-test date. Patient verbalizing understanding of instructions given. Anti-Coag Initial Assessment Social Hx Patient Tobacco Use Status: Never used Tobacco alcohol intake: former Alcohol intake frequency: does not drink Cardiovascular Hx: HTN Lung Disease HX: DVT/PE Endocrine Hx: Thyroid Disease Musculoskeletal Hx: Arthritis Blood Disorder Hx: Anemia and Hyperlipidemia GI Hx: Ulcers, Diverticulosis and Hemorrhoids Hx: Other Neurological Hx: Migraines/Headaches and Other Cancer HX: No Psych. Illness/Depression: Yes Coding Level of Care Code Est Patient Level 2 Diagnoses Current use of anticoagulant therapy Z79.01 Assessment & Plan Assessment & Plan (1) Current use of anticoagulant therapy: Code(s): Z79.01 - senior living (current) use of anticoagulants Category: Medical
--- OUTSIDE RECORDS SUMMARY | 2024-10-04 12:36 | XMS_ITS ---
Author Organization Dario Urbano III, MD Address [address] [place] [address] Care Team Providers Care Hand Woodworking Sander Name Role Phone Jacinta ANGULO, [facility] Primary Care Provider Dario Slater [phone] Allergies Allergen (clinical drug ingredient) Drug/Non Drug [...] Date Provider Diagnosis Dario Urbano III, MD [address] [place] [address] [place] [address] 09/29/2023 Dario Urbano Morbid obesity E66.0 1 [...] consider the weight loss surgery program at [facility]. She has gained 10 pounds since her [...] (ICD-10 - E03.9) She says is her revenue enforcement agent was going to put her on thyroid [...] series of pulmonary artery angioplasties at the [facility] the next of which will be [...] Year, Reason: O V Provider Name:Dario Urbano, 10/13/2024 10:45:00 AM, [address] [place] [address] [address] [place] [address], [place], [address], Progress Notes * Domonique SANTILLAN SDOB:1975 (48 yo F)Acc No.[id number]:09/29/2023 Progress Notes Patient:?Santillan, Domonique S Provider:?Dario Urbano MD :1975???Age:48 Y???Sex:Female D ate:09/29/2023 Address:[address] [place] [address] [id number] Pcp:Deena Workman MD Subjective: * Chief Complaints: [...] consider the weight loss surgery program at [facility]. She has gained 10 pounds since her [...] hypothyroidism - E03.9, She says is her revenue enforcement agent was going to put her on thyroid replacement.?8.?Pulmonary embolism, unspecified chronicity, unspecified pulmonary embolism type, unspecified whether acute cor pulmonale present - I26.99, She was breathing comfortably today and has had no further episodes of dizziness or arterial thromboembolism. She had multiple pulmonary emboli/2022.These have caused dyspnea with exertion and she is undergoing a series of pulmonary artery angioplasties at the [facility] the next of which will be [...] Urbano MD Date:?09/09 Generated for Printi ng/Nettie/eTransmitting on:?10/04/2024 12:34 PM EST History and Physical Notes * HPI (History of Present Illness) Category Sub-Category Detail Notes COVID-19 Screening Questions Have you had any new onset fever, chills, cough, congestion, sore throat, shortness of breath, muscle aches?: No Have you been exposed to the virus withi n the last 10 days?: No Have you travelled internationally in [facility] last 10 days?: No Have you [...]
--- OUTSIDE RECORDS SUMMARY | 2024-10-04 12:36 | XMS_ITS | Clinical Summary ---
Author Organization [facility] it Address [address] [place] [address] Care Team Providers Care Smooth And Burr Worker Composites Name Role Phone Unavailable Primary Care Provider [...] Documents on File Type Date Recorded Patient Plate Colorer Expl anation Health Care Decision (hx) 10/31/2020 AD LONG DIRECTIVE
--- OUTSIDE RECORDS SUMMARY | 2024-10-04 12:36 | XMS_ITS | Patient Health Record ---
Author Organization Dario Urbano III, MD Address [address] [place] [address] Care Team Providers Care Bias Binding Cutter Name Role Phone Jacinta ANGULO, [facility] Primary Care Provider Dario Slater [phone] Allergies Allergen (clinical drug ingredient) Drug/Non Drug [...] HCl 100 MG 1 tablet Orally On day 09/29/2024 Active Ferrous Sulfate 325 (65 Fe) MG [...] as needed Inhalation every 4 hrs Active Ventolin HFA 108 (90 Base) MCG/ACT Inhalation Active [facility] Vitamin B-12 1000 MCG TAKE 1 TABLET BY MOUTH EVERY DAY FOR 90 DAYS Active Rosuvastatin Calcium 10 MG 1 tablet Oral ly Once a day 09/29/2024 Active Sildenafil Citrate 20 MG Oral Active Social History Tobacco Use: Social History [...] Problem Status W/U Status Risk Notes Problem 75662289 Dysthymic disorder (F34.1) Active confirmed Her depress ion is mild and I will recommend no change in her current medications. Problem 062050051 Acquired hypothyroidism (E03.9) Active confirmed She says is her registered nurse obstetrics was going to put her on thyroid replacement. Problem 590408424 Vitamin B 12 deficiency (E53.8) Active confirmed A B12 level is not available at this time. She was continued on current therapy and the value will be followed. 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 She has been referred to [facility] for thyroidectomy. This will require cessation of her anticoagulation. Problem 282097684 History of cholecystectomy (Z90.49) Active confirmed Problem 837568740 Thrombophilia (D68.59) Active confirmed She has a thrombophilia in view of the positive factor V Leiden. Because of multiple pulmonary emboli. I have recommended indefinite anticoagulation. She is agreeable to this. Problem 57465550 Iron deficiency anemia, unspecified iron deficiency anemia type (D50.9) Active confirmed Comprehensive blood work is not available today. I have ordered it to be done in the near future. Her regimen was continued unchanged until that is available. Problem 013478178 Morbid obesity (E66.01) Active confirmed We discussed diet and nutrition. I recommended aggressive weight loss. I recommended she consider the weight loss surgery program at [facility]. She has lost 59 pounds since her last visit. Problem 86087445 Adult onset diabetes mellitus with ketoacidosis (E11.10) Active confirmed She has been compliant with her medications, which are prescribed by primary care. 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 It has not affected her life significantly. No change in her regimen as needed. Problem 76595519 Pulmonary embolism, unspecified chronicity, unspecified pulmonary embolism type, unspecified whether acute cor pulmonale present (I26.99) Active confirmed She was breathing comfortably today and has had no further episodes of dizziness or arterial thromboembolism. She had multiple pulmonary emboli2022.These have caused dyspnea with exertion and she is undergoing a series of pulmonary artery angioplasties at the [facility] the next of which will be in August2023. Vital Signs Heart Rate 96 /min 09/29/2024 Temperature 97.3 degrees Fahrenheit 09/29/2024 Blood pressure diastolic 92 mm Hg 09/29/2024 Height 64 in 09/29/2024 Blood pressure systolic 118 mm Hg 09/29/2024 Weight 243 lbs 09/29/2024 BMI 41.71 kg/m2 09/29/2024 Encounters Encounter Location Date Provider Diagnosis Dario Urbano III, MD [address] [place] [address] [place] [address] 09/29/2024 Dario Urbano Morbid obesity E66.0 1 ; Thrombophilia D68.59 ; Iron deficiency anemia, unspecified iron deficiency anemia type D50.9 ; Dysthymic disorder F34.1 ; Post-cholecystectomy syndrome K91.5 ; Adult onset diabetes mellitus with ketoacidosis E11.10 ; Vitamin B 12 deficiency E53.8 and Acquired hypothyroidism E03.9 Assessments Encounter Date Diagnosis (ICD Code) Assessment Notes Treat ment Notes Treatment Clinical Notes 09/29/2024 Thrombophilia (ICD-10 - D68.59) She has a thrombophilia in view of the positive factor V Leiden. Because of multiple pulmonary emboli. I have recommended indefinite anticoagulation. She is agreeable to this. 09/29/2024 Morbid obesity (ICD-10 - E66.01) We discussed diet and nutrition. I recommended aggressive weight loss. I recommended she consider the weight loss surgery program at [facility]. She has lost 59 pounds since her last visit. 09/29/2024 Iron deficiency anemia, unspecified iron deficiency [...] (ICD-10 - E03.9) She says is her registered nurse obstetrics was going to put her on thyroid replacement. Plan Of Treatment Pending Test Test Name [...] w DIFF 04/15/2022 CBC w DIFF 04/06/2018 SED RATE (ESR) 09/29/2024 RETICULOCYTE COUNT,CORRECTED 08/21/2018 RETICULOCYTE COUNT,CORRECTED 07/22/2022 RETICULOCYTE COUNT,CORRECTED 04/20/2018 RETICULOCYTE COUNT,CORRECTED 04/06/2018 PROTHROMBIN TIME (PT, INR) 11/18/2022 PARTIAL THROMBOPLASTIN TIME (PTT) 2022 FIBRINOGEN 11/18/2022 ANTITHROMBIN III & AG (REFLEX) HOMOCYSTEINE 11/18/2022 INTRINSIC FACTOR ANTIBODIES 04/06/2018 PROTEIN C ACTIVITY REFLEX AG 11/18/2022 PROTEIN S ACTIVITY REFLEX AG 11/18/2022 HGB ELECTROPHORESIS 04/20/2018 LUPUS ANTICOAGULANT PANEL 11/18/2022 FACTOR V LEIDEN 11/18/2022 CBC WITH AUTO DIFF 09/29/2024 RETIC 09/29/2024 Ferritin 04/15/2022 Ferritin 09/29/2024 Folate 04/15/2022 Next Appt Details Provider Name:Dario Urbano, 10/13/2024 10:45:00 AM, [address] [place] [address] [address], [place], [address], Insurance Providers Payer Name Payer Address Payer Phone Subscriber Number Group Number Insured Name Patient Relationship to Insured Coverage Start Date Coverage End Date [employer] [address] [address] [place] [phone] [id number] Domonique Bro Self - patient is the insured MEDICAID [address] [place], [place] [id number] [phone] [id number] Domonique Bro Self - patient is the insured Medical (General) History Medical History History ICD Code Hyperlipidemia, unspecified hyperlipidem ia type E78.5 Postcholecystectomy syndrome K91.5 Dysmenorrhea N94.6 Morbid obesity E66.01 Dysthymic disorder F34.1 Anemia, unspecified type D64.9 Type 2 diabetes mellitus wit h complication, unspecified whether oil heaterman insulin use E11.8 G6 carpal tunnel syndrome, right wrist, rep aired history of cholecystitis gestational hypertension hypothyroid microcytic anemia migraine headaches type 2 diabetes mellitus diverticulitis 2013 history of dysmenorrhea fasciitis, left foot. 2004 Pulmonary embolism Positive for factor V Leiden mutation, t hrombophilia Chronic anticoagulation Surgical History Surgery Date(Month/Year) blood clots in lungs angioplasty in [facility] and 08/2023 tendonitis right hand 04/2022 left wrist carpal tunnel 04/2018 6 laparoscopic cholecystectomy 2002 right hand carpatunel 2017 left foot fasciotomy 2003 Hospitalization History Reason Date(Month/Year) COVID 10/2020
--- OUTSIDE RECORDS SUMMARY | 2024-10-04 12:36 | XMS_ITS ---
Author Organization Dario Urbano III, MD Address [address] [place] [address] Care Team Providers Care Gas Collection System Operator Name Role Phone Jacinta ANGULO, [facility] Primary Care Provider Dario Slater Unavailable [phone] Allergies Allergen (clinical drug ingredient) Drug/Non Drug [...] 1 tablet Orally On day 09/29/2024 Active Ventolin HFA 108 (90 [...] Date Provider Diagnosis Dario Urbano III, MD [address] [place] [address] [place] [address] 09/29/2024 Dario Urbano Morbid obesity E66.0 1 [...] consider the weight loss surgery program at [facility]. 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 is her electrician elevator maintenance was going to put her on thyroid [...] BY MOUTH EVERY DAY FOR 90 DAYS Pending Test Test Name Order Date SED RATE (ESR) 09/29/2024 CBC WITH AUTO DIFF 09/29/2024 RETIC 09/29/2024 Ferritin 09/29/2024 Next Appt Details Follow Up: 2 Weeks, Reason: Telehealth Provider Name:Dario Urbano, 10/13/2024 10:45:00 AM, [address] [place] [address] [address], [place], [address], Progress Notes * Domonique SANTILLAN SDOB:1975 (49 yo F)Acc No.[id number]:09/29/2024 Progress Notes Patient:?Domonique SANTILLAN S Provider:?Dario Urbano MD :1975???Age:49 Y???Sex:Female D ate:09/29/2024 Address:[address] [place], [place] [id number] Pcp:Deena Workman MD Subjective: * Chief Complaints: * ???Vitamin B12 deficiencyIro n deficiency anemiaThrombophiliaHistory of pulmonary embolism * HPI: ???COVID-19 Screening:?She returns for routine scheduled followup.? She has a history of iron deficiency anemia and vitamin B12 deficiency.? She has a history of pulmonary emboli and thrombophilia.? Since her last visit she has been stable.? She was wearing an oxygen cannula today said at 2 L. She is on a weight loss program using weekly injections of Mounjaro.Since her visit last year.? She has lost 59 pounds.? She has had no side effects.? She has been compliant with all of her medications.? A recent blood work was reviewed. ?Questions?Have you had any new onset fever, chills, cough, congestion, sore throat, shortness of breath, muscle aches??No * ROS:?General/Constitutional:?pain?only normal aches and pains.?Chills?denies.?Fatigue?admits.?Fever?denies.?ENT:?Decreased hearing?denies.?Respiratory:?Cough?denies.?Cardiovascular:?Chest pain with exertion?denies.?Dyspnea on exertion?denies.?Shortness of breath?denies.?Gastrointestinal:?Constipation?occasional.?Decreased appetite?denies.?Diarrhea?denies.?Heartburn?denies.?Nausea?denies.?Rectal bleeding?denies.?Vomiting?denies.?Hematology:?bruising?denies.?petechiae?denies.?Swollen glands?none have been noted.?Genitourinary:?Frequent urination?a small amount.?Musculoskeletal:?Muscle aches?denies.?Painful joints?denies.?Sciatica?denies.?Weakness?denies.?Skin:?Itching?denies.?Rash?denies.?Skin lesion(s)?denies.?Neurologic:?Difficulty speaking?denies.?Dizziness?denies.?Headache?denies.?Low back pain?denies.?Psychiatric:?Depressed mood?denies.? [...] a?nonsmoker ?Additional Findings: Tobacco Non-User?Aggressive non-smoker * Medications:?TakingAlbuterol Sulfate HFA 108 (90 Base) MCG/ACT Aerosol [...] ANGIOEDEMAErythromycin: HIVESno[Allergies Verified] Objective: * Vitals:?Ht: 64, Wt: 243, BMI :41.71, BP: 118/92, HR: 96, Temp: 97.3, Wt-k.22. * Examination: ???General Examination: ?GENERAL APPEARANCE:?pleasant, well nourished, well developed, in no acute distress, calm and relaxed, morbidly obese, woman.?HEAD:?atraumatic, normocephalic.?EYES:?eomi, perrla, anicteric, conjugate.?EARS:?normal.?NOSE:?septum intact.?ORAL CAVITY:?normal, unremarkable.?NECK/THYROID:?no jugular venous distention, no carotid bruit, thyroid normal.?LYMPH NODES:?no enlarged lymph nodes,spleen normal.?SKIN:?no suspicious lesions, anicteric.?HEART:?no clicks, gallops, murmurs, or rubs, regular rhythm, S1, S2 normal, no s3, or vascular bruits.?LUNGS:?clear to auscultation .?BREASTS:?Not examined.?ABDOMEN:?bowel sounds normal, no ascites, no organomegaly, no mass, morbid obesity.?RECTAL EXAM:?not examined.?MUSCULOSKELETAL:?extremities unremarkable, no clubbing, cyanosis or edema.?PERIPHERAL PULSES:?normal.?NEUROLOGIC:?alert and oriented, cranial nerves 2-12 grossly intact, deep tendon reflexes 2+ symmetrical, motor strength normal upper and lower extremities, sensory exam intact.?PSYCH:?alert, oriented.? Assessment: * Assessment: 1.?Thrombophilia - D68.59 (P rimary)???Notes :She has a thrombophilia in view of the positive factor V Leiden. Because of multiple pulmonary emboli. I have recommended indefinite anticoagulation. She is agreeable to this.???2.?Morbid obesity - E66.01???Notes :We discussed diet and nutrition. I recommended aggressive weight loss. I recommended she consider the weight loss surgery program at [facility]. She has lost 59 pounds since her last visit.???3.?Iron deficiency anemia, unspecified iron deficiency anemia type - D50.9???Notes :Comprehensive blood work is not available today.? I have ordered it to be done in the near future.? 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 It has not affected her life significantly.? No change in her regimen as needed.???6.?Adult onset diabetes mellitus with ketoacidosis - E11.10???Notes :She has been compliant with her medications, which are prescribed by primary care.???7.?Vitamin B 12 deficiency - E53.8???Notes :A B12 level is not available at this time. She was continued on current therapy and the value will be followed.???8.?Acquired hypothyroidism - E03.9???Notes :She says is her electrician elevator maintenance was going to put her on thyroid replacement.??? Plan: * Treatment: 2.?Iron deficiency anemia, u nspecified iron deficiency anemia type?LAB: SED RATE (ESR) ?LAB: CBC WITH AUTO DIFF ?LAB: RETIC ?LAB: Ferritin 3.?Others? Continue [facility] Vitamin B-12 Tablet, 1000 MCG, TAKE 1 TABLET BY MOUTH EVERY DAY FOR 90 DAYS.?? * Procedure Codes:? * Preventive Medicine:? ??Counseling:?Care [...] diabetes without too much effort.?Treatment Goals?HbA1C < 7.0.?Barriers?no barriers.?Self-Managment Goals?Work on weight loss, with a goal of losing 1 lb per week.? * Follow Up:?2 Weeks (Reason: Telehealth) * Images: * Sign off status: Completed true * Provider:?Dario Urbano MD Date:?09/09 Generated for Satish lai/Nettie/eTransmitting on:?10/04/2024 12:34 PM EST History and Physical [...]
--- OUTSIDE RECORDS SUMMARY | 2024-10-04 12:36 | XMS_ITS | Patient Health Record ---
Author Organization [facility] Address [address] [place] [address] Care Team Providers Care Hospital Orderly Name Role Phone Deena Workman Primary Care Provider Unavailab Dario Holbrook Unavailable [phone] ALLERGIES Allergen (clinical drug ingredient) Drug/Non Drug [...] (K58.9) Active confirmed Irritable b owel syndrome (89841847) Problem Colon cancer screening (Z12.11) Active confirmed Colon cancer screening (385318303) Problem Microcytic anemia (D50.9) Active confirmed Microcytic anem ia (900248450) Problem Diverticulosis of colon (K57.30) Active confirmed Diverticulosi s of colon (287296865) PLAN OF TREATMENT Pending Test Test Name Order Date CELIAC PANEL #10 05/22/2022 Future Test Test Name Order Date COLONOSCOPY 05/22/2022 Next Appt Details Provider Name:Dario Ramsey , 10/07/2024 10:40:00 AM, [address] [place] [address], [address], [place], [address], Insurance Providers Payer Name Payer Address Payer Phone Subscriber Number Group Number Insured Name Patient Relationship to Insured Coverage Start Date Coverage End Date [facility] [address] [address] [place], [place] [id number] KASANDRA SANTILLAN Self - patient is the insured MEDICAL (GENERAL) HISTORY Medical History History ICD Code ERCP with sphincterotomy 10-30-2001 Pulmonary emboli with COVID 10/2020-she describes a two-week hospitalization although did not require intubation. She describes having been left with some respiratory issues for which she is seeing Dr. Land. She also describes some residual brain fog Arthritis Denies ND,CVA,renal disease NIDDM Anemia from heavy menses IBS with diarrhea Surgical History Surgery Date(Month/Year) CCY 2001 BTL 2001 Bilateral carpal tunnel 2017 Right foot 1999 Right wrist 04/2022
--- OUTSIDE RECORDS SUMMARY | 2024-10-04 12:36 | XMS_ITS ---
Author Organization Dario Urbano III, MD Address [address] [place] [facility] [place] [facility] [place] [address] Care Team Providers Care Snaker Tractor Driver Name Role Phone Jacinta ANGULO, Deena Primary Care Provider Dario Slater [phone] REASON FOR VISIT Follow-up Encounters Encounter Location Date Provider Diagnosis Dario Urbano III, MD [address] [place] [address] [place] [address] 09/09/2023 Dario Urbano Plan Of Treatment Next Appt Details Provider Name:Dario Urbano, 10/13/2024 10:45:00 AM, [address] [place] [address] [place], [address], Progress Notes * TYRELL Domonique SDOB:1975 (49 yo F)Acc No.[id number]:09/09/2023 Progress Notes Patient:?Domonique SANTILLAN Provider:?Dario Urbano MD :1975???Age:48 Y???Sex:Female D ate:09/09/2023 Address: [id number] Pcp:Deena Workman MD Subjective: * Chief Complaints: [...] * Provider:?Dario Urbano MD Date:?10/2023 Generated for Saitsh lai/Nettie/eTransmitting on:?10/04/2024 12:34 PM EST History and Physical Notes * HPI (History of Present Illness) Category Sub-Category Detail Notes COVID-19 Screening Questions Have you had any new onset fever, chills, cough, congestion, sore throat, shortness of breath, muscle aches?: No Have you been exposed to the virus withi n the last 10 days?: No Have you travelled internationally in [facility] last 10 days?: No Have you [...]
== END 2024-10-04 09:00 | disposition home or self-care (01) ==
PROVIDERS: PCP Internal Medicine; Visit Provider Internal Medicine
DX: Z79.01 Long term (current) use of anticoagulants (principal)

== ENCOUNTER 2024-10-07 09:04 | Outpatient (REF) | payer OTHER, SELFPAY ==
[2024-10-07 09:18] LABS: MANUAL DIFF FLAG NO
[2024-10-07 09:53] LABS: Basophils Absolute Auto 0.1 X10*3/uL (0.0-0.2); Basophils Percent Auto 0.8 % (0-2); Eosinophils Absolute Auto 0.3 X10*3/uL (0.0-0.4); Hematocrit 37.9 % (37.0-47.0); Imm Gran Abs Auto 0.03 X10*3/uL (0.00-0.03); Imm Gran Pct Auto 0.3 % (0.0-0.4); Lymphocytes Absolute Auto 2.8 X10*3/uL (1.2-4.9); Lymphocytes Percent Auto 29.9 % (20-40); Mean Corpuscular Hemoglobin 20.3 pg (27.0-33.0); Mean Corpuscular Volume 69.8 fL (80.0-98.0); Monocytes Absolute Auto 0.7 X10*3/uL (0.1-1.2); Monocytes Percent Auto 7.5 % (2-11); Neutrophils Absolute Auto 5.5 x10*3/uL (2.0-8.3); Neutrophils Percent Auto 58.5 % (45-73); Platelet Count 244 X10*3/uL (160-400); Red Blood Count 5.43 X10*6/uL (4.20-5.50); Retic HGB Equivalent 23.7 pg (30.0-35.0); Reticulocyte Percent 1.1 % (0.5-1.8); Reticulocytes Absolute 0.058 X10*6/uL (0.026-0.095); White Blood Count 9.3 X10*3/uL (4.8-10.8)
[2024-10-07 10:28] LABS: Erythrocyte Sedimentation Rate 23 MM/HR (0-20)
[2024-10-07 10:56] LABS: Ferritin 18 ng/mL (10-250)
--- OUTSIDE RECORDS SUMMARY | 2024-10-07 12:07 | XMS_ITS | Clinical Summary ---
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
--- OUTSIDE RECORDS SUMMARY | 2024-10-07 12:07 | XMS_ITS ---
Author Organization Dario Urbano III, MD Address [address] [place] [address] Care Team Providers Care Bi Lead Name Role Phone Jacinta ANGULO, [facility] Primary Care Provider Dario Slater [phone] Allergies Allergen (clinical drug ingredient) Drug/Non Drug [...] Date Provider Diagnosis Dario Urbano III, MD [address] [place] [address] [place] [address] 09/29/2023 Dario Urbano Morbid obesity E66.0 1 [...] consider the weight loss surgery program at [facility]. She has gained 10 pounds since [...] (ICD-10 - E03.9) She says is her institutional commodity analyst was going to put her on thyroid [...] series of pulmonary artery angioplasties at the [facility] the next of which will be [...] V Provider Name:Dario Urbano, 10/13/2024 10:45:00 AM, [address] [place] [address] [address] [place] [address], [place], [address], Progress Notes * Domonique SANTILLAN SDOB:1975 (48 yo F)Acc No.[id number]:09/29/2023 Progress Notes Patient:?Santillan, Domonique S Provider:?Dario Urbano MD :1975???Age:48 Y???Sex:Female D ate:09/29/2023 Address:[address] [place] [address] [id number] Pcp:Deena Workman MD Subjective: * Chief Complaints: [...] consider the weight loss surgery program at [facility]. She has gained 10 pounds since [...] hypothyroidism - E03.9, She says is her institutional commodity analyst was going to put her on thyroid replacement.?8.?Pulmonary embolism, unspecified chronicity, unspecified pulmonary embolism type, unspecified whether acute cor pulmonale present - I26.99, She was breathing comfortably today and has had no further episodes of dizziness or arterial thromboembolism. She had multiple pulmonary emboli/2022.These have caused dyspnea with exertion and she is undergoing a series of pulmonary artery angioplasties at the [facility] the next of which will be [...] Urbano MD Date:?09/09 Generated for Printi ng/Nettie/eTransmitting on:?10/07/2024 12:07 PM EST History and Physical Notes * HPI (History of Present Illness) Category Sub-Category Detail Notes COVID-19 Screening Questions Have you had any new onset fever, chills, cough, congestion, sore throat, shortness of breath, muscle aches?: No Have you been exposed to the virus withi n the last 10 days?: No Have you travelled internationally in [facility] last 10 days?: No Have you [...]
--- OUTSIDE RECORDS SUMMARY | 2024-10-07 12:08 | XMS_ITS | Patient Health Record ---
Author Organization Dario Urbano III, MD Address [address] [place] [address] Care Team Providers Care Sports Medicine Trainer Name Role Phone Jacinta ANGULO, [facility] Primary Care Provider Dario Slater [phone] Allergies Allergen (clinical drug ingredient) Drug/Non Drug Allergy documented on EMR Reaction Allergy Type Onset Date Status dapagliflozin Farxiga UTI Drug Allergy Act wiley liraglutide Victoza NAUSEA Drug Allergy Activ e metformin Metformin HCl GI UPSET Drug Allergy Act wiley lisinopril Lisinopril ANGIOEDEMA Drug Allergy Acti ve erythromycin Erythromycin HIVES Drug Allergy A ctive amitriptyline Amitriptyline HCl DRUGGED FEELING Drug Allergy Active Results Component Value Reference Range Notes Complete Blood Count Auto Di ff (Not yet reviewed by provider) Interpretation: Performing Lab:[facility], [address] [place] [phone] Notes/Report: White Blood Count 9.3 4.8-10.8 X10*3/uL Red Blood Count 5.43 4.20-5.50 X10*6/uL Hemoglobin 11.0 12.0-16.0 g/dl Hematocrit 37.9 37.0-47.0 % Mean Corpuscular Volume 69.8 80.0-98.0 fL Mean Corpuscular Hemoglobin 20.3 27.0-33.0 pg Mean Corpuscular HGB Conc 29.0 31.0-35.0 g/dl Red Cell Distribution Width 19.0 11.0-16.0 % Platelet Count 244 160-400 X10*3/uL Mean Platelet Volume TNP 9.4-12.3 fL Neutrophils Percent Auto 58.5 45-73 % Imm Gran Pct Auto 0.3 0.0-0.4 % Lymphocytes Percent Auto 29.9 20-40 % Monocytes Percent Auto 7.5 2-11 % Eosinophils Percent Auto 3.0 0-4 % Basophils Percent Auto 0.8 0-2 % NRBC Pct Auto 0.0 0.0-0.2 /100WBC Neutrophils Absolute Auto 5.5 2.0-8.3 x10*3/u L Imm Gran Abs Auto 0.03 0.00-0.03 X10*3/uL Lymphocytes Absolute Auto 2.8 1.2-4.9 X10*3/u L Monocytes Absolute Auto 0.7 0.1-1.2 X10*3/uL Eosinophils Absolute Auto 0.3 0.0-0.4 X10*3/u L Basophils Absolute Auto 0.1 0.0-0.2 X10*3/uL NRBC Abs Auto 0.000 0.0-0.012 X10*3/uL Erythrocyte Sedimentation Ra te (Not yet reviewed by provider) Interpretation: Performing Lab:[facility], [address] [place] [phone] Notes/Report: Erythrocyte Sedimentation Rate 23 0-20 MM/HR Patients with polycythemia and many hemoglobin abnormalities may have depressed sed rates whereas patients with anemia may have elevated sed rates. RETIC (Not yet reviewed by debora rogers) Interpretation: Performing Lab:[facility], [address] [place] [phone] Notes/Report: Reticulocytes Absolute 0.058 0.026-0.095 X10*6/ uL Immature Retic Fraction 20.0 3.0-15.9 % Retic HGB Equivalent 23.7 30.0-35.0 pg Reticulocyte Percent 1.1 0.5-1.8 % Ferritin (Not yet reviewed b y provider) Interpretation: Performing Lab:[address] [address] Notes/Report: Ferritin 18 10-250 ng/mL Reason For Referral No Information Medications Medication SIG (Take, Route, Frequency, Duration) Notes Start Date End Date Status Sertraline HCl 100 MG 1 tablet Orally On ce a day 09/29/2024 Active Ferrous Sulfate 325 (65 [...] Problem Status W/U Status Risk Notes Problem 29240750 Dysthymic disorder (F34.1) Active confirmed Her depress ion is mild and I will recommend no change in her current medications. Problem 358919485 Acquired hypothyroidism (E03.9) Active confirmed She says is her surgical attendant was going to put her on thyroid replacement. Problem 427852357 Vitamin B 12 deficiency (E53.8) Active confirmed A B12 level is not available at this time. She was continued on current therapy and the value will be followed. 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 She has been referred to [facility] for thyroidectomy. This will require cessation of her anticoagulation. Problem 723557915 History of cholecystectomy (Z90.49) Active confirmed Problem 981725421 Thrombophilia (D68.59) Active confirmed She has a thrombophilia in view of the positive factor V Leiden. Because of multiple pulmonary emboli. I have recommended indefinite anticoagulation. She is agreeable to this. Problem 26498260 Iron deficiency anemia, unspecified iron deficiency anemia type (D50.9) Active confirmed Comprehensive blood work is not available today. I have ordered it to be done in the near future. Her regimen was continued unchanged until that is available. Problem 909773198 Morbid obesity (E66.01) Active confirmed We discussed diet and nutrition. I recommended aggressive weight loss. I recommended she consider the weight loss surgery program at [facility]. She has lost 59 pounds since her last visit. Problem 79268612 Adult onset diabetes mellitus with ketoacidosis (E11.10) Active confirmed She has been compliant with her medications, which are prescribed by primary care. 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 It has not affected her life significantly. No change in her regimen as needed. Problem 14058283 Pulmonary embolism, unspecified chronicity, unspecified pulmonary embolism type, unspecified whether acute cor pulmonale present (I26.99) Active confirmed She was breathing comfortably today and has had no further episodes of dizziness or arterial thromboembolism. She had multiple pulmonary emboli/2022.These have caused dyspnea with exertion and she is undergoing a series of pulmonary artery angioplasties at the [facility] the next of which will be in August2023. Vital Signs Heart Rate 96 /min 09/29/2024 Temperature 97.3 degrees Fahrenheit 09/29/2024 Blood pressure diastolic 92 mm Hg 09/29/2024 Height 64 in 09/29/2024 Blood pressure systolic 118 mm Hg 09/29/2024 Weight 243 lbs 09/29/2024 BMI 41.71 kg/m2 09/29/2024 Encounters Encounter Location Date Provider Diagnosis Dario Urbano III, MD [address] [place] [address] [place] [address] 09/29/2024 Dario Urbano Morbid obesity E66.0 1 [...] consider the weight loss surgery program at [facility]. 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 is her surgical attendant was going to put her on thyroid [...] LEIDEN 11/18/2022 CBC WITH AUTO DIFF 09/29/2024 Complete Blood Count Auto Diff Erythrocyte Sedimentation Rate 5 RETIC 10/07/2024 RETIC 09/29/2024 Ferritin 04/15/2022 Ferritin 10/07/2024 Ferritin 09/29/2024 Folate 04/15/2022 Next Appt Details Provider Name:Dario Urbano, 10/13/2024 10:45:00 AM, [address] [place] [address] , [address], [place], [address], Insurance Providers Payer Name Payer Address Payer Phone Subscriber Number Group Number Insured Name Patient Relationship to Insured Coverage Start Date Coverage End Date [employer] [address] [address] [place] [address] [id number] BroLeslyna Self - patient is the insured MEDICAID [address] [place], [place] [id number] Dieudonne Domonique Self - patient is the insured Medical (General) History Medical History History ICD Code Hyperlipidemia, unspecified hyperlipidem ia type E78.5 Postcholecystectomy syndrome K91.5 Dysmenorrhea N94.6 Morbid obesity E66.01 Dysthymic disorder F34.1 Anemia, unspecified type D64.9 Type 2 diabetes mellitus wit h complication, unspecified whether mcfp insulin use E11.8 G6 carpal tunnel syndrome, right wrist, rep aired history of cholecystitis gestational hypertension hypothyroid microcytic anemia migraine headaches type 2 diabetes mellitus diverticulitis 2013 history of dysmenorrhea fasciitis, left foot. 2003 Pulmonary embolism Positive for factor V Leiden mutation, t hrombophilia Chronic anticoagulation Surgical History Surgery Date(Month/Year) blood clots in lungs angioplasty in Nove and 08/2023 tendonitis right hand 04/2022 left wrist carpal tunnel 04/2018 6 laparoscopic cholecystectomy 2002 right hand carpatunel 2017 left foot fasciotomy 2004 Hospitalization History Reason Date(Month/Year) COVID 10/2020
--- OUTSIDE RECORDS SUMMARY | 2024-10-07 12:08 | XMS_ITS ---
Author Organization Dario Urbano III, MD Address [address] [place] [address] Care Team Providers Care Instrument Fitter Name Role Phone Jacinta ANGULO, [facility] Primary Care Provider Dario Slater Unavailable [phone] Allergies Allergen (clinical drug ingredient) Drug/Non Drug [...] Date Provider Diagnosis Dario Urbano III, MD [address] [place] [address] [place] [address] 09/29/2024 Dario Urbano Morbid obesity E66.0 1 [...] consider the weight loss surgery program at [facility]. 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 is her rubber worker was going to put her on thyroid [...] Telehealth Provider Name:Dario Urbano, 10/13/2024 10:45:00 AM, [address] [place] [address] [place], [place], [address], Progress Notes * Domonique SANTILLAN SDOB:1975 (49 yo F)Acc No.[id number]:09/29/2024 Progress Notes Patient:?Domonique SANTILLAN S Provider:?Dario Urbano MD :1975???Age:49 Y???Sex:Female D ate:09/29/2024 Address:[address] [place], [place] [id number] Pcp:Deena Workman MD Subjective: * Chief Complaints: [...] consider the weight loss surgery program at [facility]. She has lost 59 pounds since [...] hypothyroidism - E03.9???Notes :She says is her rubber worker was going to put her on thyroid [...] Urbano MD Date:?09/09 Generated for Satish lai/Nettie/eTransmitting on:?10/07/2024 12:07 PM EST History and Physical [...]
--- OUTSIDE RECORDS SUMMARY | 2024-10-07 12:08 | XMS_ITS ---
Author Organization Dario Urbano III, MD Address [address] [place] [address] Care Team Providers Care Voucher Clerk Name Role Phone Jacinta ANGULO, Deena Primary Care Provider Dario Slater [phone] REASON FOR VISIT Follow-up Encounters Encounter Location Date Provider Diagnosis Dario Urbano III, MD [address] [place] [address] [place] [address] 09/09/2023 Dario Urbano Plan Of Treatment Next Appt Details Provider Name:Dario Urbano, 10/13/2024 10:45:00 AM, [address] [place] [address] [place], [address], Progress Notes * TYRELL Domonique SDOB:1975 (49 yo F)Acc No.[id number]:09/09/2023 Progress Notes Patient:?Domonique SANTILLAN Provider:?Dario Urbaon MD :1975???Age:48 Y???Sex:Female D ate:09/09/2023 Address: [id number] Pcp:Deena Workman MD Subjective: * Chief Complaints: [...] Urbano MD Date:?10/2023 Generated for Satish lai/Nettie/eTmartínezsmitting on:?10/07/2024 12:07 PM EST History and Physical Notes * HPI (History of Present Illness) Category Sub-Category Detail Notes COVID-19 Screening Questions Have you had any new onset fever, chills, cough, congestion, sore throat, shortness of breath, muscle aches?: No Have you been exposed to the virus withi n the last 10 days?: No Have you travelled internationally in [facility] last 10 days?: No Have you [...]
--- OUTSIDE RECORDS SUMMARY | 2024-10-07 12:08 | XMS_ITS | Patient Health Record ---
Author Organization [facility] Address [address] [place] [address] Care Team Providers Care Assistant Teacher Name Role Phone Deena Workman Primary Care Provider Unavailab Dario Holbrook Unavailable [phone] ALLERGIES Allergen (clinical drug ingredient) Drug/Non Drug [...] Status Levothyroxine Sodium 50 MCG 1 tablet in the morning on an empty stomach Orally Once a day for 30 day(s) Active Sildenafil Citrate 20 MG Oral for 90 Active Mounjaro 7.5 MG/0.5ML INJECT 7.5 MG (0.5 ML) SUBCUTANEOUSLY EVERY WEEK Subcutaneous for 28 Active Albuterol Active Sertraline HCl 100 MG Oral for 90 Active Rosuvastatin Calcium 10 MG 1 tablet Oral ly Once a day for 30 day(s) 10/07/2024 Active Iron (Ferrous Sulfate) 325 (65 Fe) MG 1 tablet Orally Once a day for 30 day(s) Active Warfarin Sodium 5 MG 1 tablet Orally Onc e a day for 30 day(s) Active metFORMIN HCl ER 500 MG 2 tablet with ev ening meal orally twice a day Active Oxygen-Helium Active IMMUNIZATIONS Vaccine Route Administration Date Status [...] (K58.9) Active confirmed Irritable b owel syndrome (87322452) Problem Colon cancer screening (Z12.11) Active confirmed Colon cancer screening (745354972) Problem Microcytic anemia (D50.9) Active confirmed Microcytic anem ia (083283594) Problem Diverticulosis of colon (K57.30) Active confirmed Diverticulosi s of colon (541387283) Problem Personal history of colonic polyps (Z86.010) Active confirmed History of poly p of colon (situation) (024613448) Problem Anticoagulant long-term use (Z79.01) Active confirmed Long-term curre nt use of anticoagulant (262279777) VITAL SIGNS Blood pressure diastolic 00 mm Hg 10/07/2024 Height 65 in 10/07/2024 Blood pressure systolic 00 mm Hg 10/07/2024 Weight 236.8 lbs 10/07/2024 BMI 39.40 kg/m2 10/07/2024 Encounters Encounter Location Date Provider Diagnosis [facility] [address] [place] [address] 10/07/2024 Dario Ramsey Irritable bowel syndrome K58.9 ; Colon cancer screening Z12.11 ; Personal history of colonic polyps Z86.010 and Anticoagulant long-term use Z79.01 ASSESSMENTS Encounter Date Diagnosis Assessment Notes Treatment Notes Treatment Clinical Notes 10/07/2024 Irritable bowel syndrome (ICD-10 - K58.9) 10/07/2024 Colon cancer screening (ICD-10 - Z12.11) STOP MOUNJARO FOR AT LEAST 7 DAYS BEFORE THE COLONOSCOPY DO NOT TAKE THE METFORMIN THE NIGHT BEFORE NOR ON THE MORNING OF THE COLONOSCOPY STOP WARFARIN FOR FIVE DAYS BEFORE THE COLONOSCOPY AND USE LOVENOX PER DR. LAND'S INSTRUCTIONS STOP IRON FOR 1 WEEK BEFORE THE COLONOSCOPY We will need clearance from Dr. Land for the Anesthesia and Colonoscopy 10/07/2024 Personal history of colonic polyps (ICD-10 - Z86.010) 10/07/2024 Anticoagulant long-term use (ICD-10 - Z79.01) PLAN OF TREATMENT Pending Test Test Name Order Date CELIAC PANEL #10 05/22/2022 Future Test Test Name Order Date COLONOSCOPY 05/22/2022 COLONOSCOPY 10/07/2024 Next Appt Details Provider Name:Dario Ramsey , 01/17/2025 11:30:00 AM, [address] [place] [address] , [place], [place], [phone], Insurance Providers Payer Name Payer Address Payer Phone Subscriber Number Group Number Insured Name Patient Relationship to Insured Coverage Start Date Coverage End Date [facility] [email or web address] [facility] [address] [address] [place], [place] [id number] KASANDRA SANTILLAN Self - patient is the insured MEDICAID OF [facility] [address] [place] [address] [id number] TYRELL KASANDRA Self - patient is the insured MEDICAL (GENERAL) HISTORY Medical History History ICD Code ERCP with sphincterotomy 10-30-2001 Pulmonary emboli with COVID 10/2020-she describes a two-week hospitalization although did not require intubation. She describes having been left with some respiratory issues for which she is seeing Dr. Land. She also describes some residual brain fog Arthritis Denies ID,CVA NIDDM Anemia from heavy menses IBS with diarrhea-negative labs for rene ac disease Colonoscopy 07/2022--1.5cm r ectal tubular adenoma, neg biopsies for microscopic colitis 10/2022 pulmonary emboli--on home oxygen- -sees Dr. Land 07/2023 [place] [facility] History Surgery Date(Month/Year) CCY 2001 BTL 2001 Bilateral carpal tunnel 2017 Right foot 2000 Right wrist 04/2022 Partial thyroidectomy for a cancer
--- OUTSIDE RECORDS SUMMARY | 2024-10-07 12:08 | XMS_ITS ---
Author Organization [facility] Address [address] [place] [address] Care Team Providers Care Oil Speculator Name Role Phone Deena Workman Primary Care Provider UnavailDario Cooper Unavailable [phone] ALLERGIES Allergen (clinical drug ingredient) Drug/Non Drug Allergy documented on EMR Reaction Allergy Type Onset Date Status amitriptyline Amitriptyline Unknown Drug Allergy Active dapagliflozin Farxiga Unknown Drug Allergy Act wiley metformin metFORMIN HCl ER Unknown Drug Allergy Active liraglutide Victoza Unknown Drug Allergy Activ e erythromycin Erythromycin Unknown Drug Allergy A ctive lisinopril Lisinopril Unknown Drug Allergy Activ e REASON FOR VISIT Patient presents today for a recall colonoscopy MEDICATIONS Medication SIG (Take, Route, Frequency, Duration) Notes Start Date End Date Status Sildenafil Citrate 20 MG Oral for 90 Active Mounjaro 7.5 MG/0.5ML INJECT 7.5 MG (0.5 ML) SUBCUTANEOUSLY EVERY WEEK Subcutaneous for 28 Active Sertraline HCl 100 MG Oral for 90 Active Rosuvastatin Calcium 10 MG 1 tablet Oral ly Once a day for 30 day(s) 10/07/2024 Active Levothyroxine Sodium 50 MCG 1 tablet in the morning on an empty stomach Orally Once a day for 30 day(s) Active Iron (Ferrous Sulfate) 325 (65 Fe) MG 1 tablet Orally Once a day for 30 day(s) Active Warfarin Sodium 5 MG 1 tablet Orally Onc e a day for 30 day(s) Active metFORMIN HCl ER 500 MG 2 tablet with ev ening meal orally twice a day Active Oxygen-Helium Active Albuterol Active SOCIAL HISTORY Tobacco Use: Social History Observation [...] W/U Status Risk SNOMED Code Notes Problem Personal history of colonic polyps (Z86.010) Active confirmed History of poly p of colon (situation) (330779228) Problem Anticoagulant long-term use (Z79.01) Active confirmed Long-term current use of anticoagulant (892392279) VITAL SIGNS BMI 39.40 kg/m2 10/07/2024 Blood pressure systolic 00 mm Hg 10/07/19 25 Blood pressure diastolic 00 mm Hg 025 Height 65 in 10/07/2024 Weight 236.8 lbs 10/07/2024 Encounters Encounter Location Date Provider Diagnosis [facility] [address] [place] [address] 10/07/2024 Dario Ramsey Irritable bowel syndrome K58.9 [...] use (ICD-10 - Z79.01) PLAN OF TREATMENT Treatment Notes Assessment Notes Colon cancer screening STOP MOUNJARO FOR AT LEAST 7 DAYS BEFORE THE COLONOSCOPY DO NOT TAKE THE METFORMIN THE NIGHT BEFORE NOR ON THE MORNING OF THE COLONOSCOPY STOP WARFARIN FOR FIVE DAYS BEFORE THE COLONOSCOPY AND USE LOVENOX PER DR. LAND'S INSTRUCTIONS STOP IRON FOR 1 WEEK BEFORE THE COLONOSCOPY We will need clearance from Dr. Land for the Anesthesia and Colonoscopy Future Test Test Name Order Date COLONOSCOPY 10/07/2024 Next Appt Details Provider Name:Dario Mirella Ramsey , 01/17/2025 11:30:00 AM, [address] [place] [address], [phone],
== END 2024-10-07 09:05 | disposition home or self-care (01) ==
LOC: HO.LAB 09:04
PROVIDERS: PCP Internal Medicine; Visit Provider Internal Medicine Medical Oncology
DX: E66.01 Morbid (severe) obesity due to excess calories (principal); D50.9 Iron deficiency anemia, unspecified; Z79.01 Long term (current) use of anticoagulants
CPT/HCPCS: 36415; 82728; 85025; 85045; 85610; 85652; 99211

== ENCOUNTER 2024-10-07 09:58 | Outpatient (AMB) | payer OTHER, SELFPAY ==
[2024-10-07 10:07] LABS: Prothrombin Time Whole Bld POC 23.8 sec (11.1-13.5)
--- NOTE | 2024-10-07 10:19 | MHC.OFFVISCO ---
Intake Intake Visit Reasons: Anticoagulation Allergies lisinopril [LISINOPRIL] Allergy (Severe, Verified 10/07/24 10:02) ANGIOEDEMA dapagliflozin [From FARXIGA] Allergy (Intermediate, Verified 10/07/24 10:02) HIVES liraglutide [From VICTOZA] Allergy (Intermediate, Verified 10/07/24 10:02) RASH metformin [METFORMIN] Allergy (Intermediate, Verified 10/07/24 10:02) GI UPSET erythromycin base [ERYTHROMYCIN BASE] Allergy (Unknown, Verified 10/07/24 10:02) UNKNOWN amitriptyline [AMITRIPTYLINE] Adverse Reaction (Intermediate, Verified 10/07/24 10:02) DRUGGED FEELING Medication List - Last Reconciled 10/07/24 by Francine Mitchell RN acetaminophen ER 650 mg PO Q6H PRN albuterol sulfate 2.5 mg inhalation Q4H PRN albuterol sulfate 90 mcg/actuation (Ventolin HFA) 2 puffs inhalation Q6H PRN blood sugar diagnostic (FreeStyle Lite Strips) As directed enoxaparin (Lovenox) 100 mg See Protocol subcut Q12H 5 days ferrous gluconate 324 mg PO DAILY levothyroxine 50 mcg PO DAILY metformin 1,000 mg PO BID nebulizers As directed Oxygen Home Use As directed rosuvastatin 10 mg PO BEDTIME sertraline 100 mg PO DAILY sildenafil (pulm.hypertension) 20 mg PO TID 30 days tirzepatide (Mounjaro) 7.5 mg (0.5 mL) subcut QWEEK warfarin 5 mg See Protocol PO DAILY 30 days Nursing Note INR: 2.0 in therapeutic range of 2-3 Medications and supplements reviewed: no changes No changes in health, diet, medications, or supplements, Denies any signs and symptoms of bleeding or bruising or clotting. Bleeding, bruising, clotting discussed Nutritional guidance given to avoid greens today Dose: 5mg today then return to usual dose of 2.5mg X 6 days and 5mg X 1 day. Pt will stop lovenox today. F/U INR: 1 week Patient verbalizes understanding of instructions with read back given Anti-Coag Initial Assessment Social Hx Patient Tobacco Use Status: Never used Tobacco alcohol intake: former Alcohol intake frequency: does not drink Cardiovascular Hx: HTN Lung Disease HX: DVT/PE Endocrine Hx: Thyroid Disease Musculoskeletal Hx: Arthritis Blood Disorder Hx: Anemia and Hyperlipidemia GI Hx: Ulcers, Diverticulosis and Hemorrhoids Hx: Other Neurological Hx: Migraines/Headaches and Other Cancer HX: No Psych. Illness/Depression: Yes Coding Level of Care Code Est Patient Level 1 Diagnoses Current use of anticoagulant therapy Z79.01 Results AMB INR Fingerstick AMB INR Fingerstick 2.0 Last Edit by Francine Mitchell RN on 10/07/24 10:08 interface delay Assessment & Plan Assessment & Plan (1) Current use of anticoagulant therapy: Code(s): Z79.01 - senior care (current) use of anticoagulants Category: Medical
--- OUTSIDE RECORDS SUMMARY | 2024-10-07 13:03 | XMS_ITS | Clinical Summary ---
Author Organization [facility] it Address [address] [place] [address] Care Team Providers Care Parquet Floor Layer'S Helper Name Role Phone Unavailable Primary Care Provider [...] Documents on File Type Date Recorded Patient Assembler Trim Expl anation Health Care Decision (hx) 10/31/2020 AD LONG DIRECTIVE
== END 2024-10-07 10:22 | disposition home or self-care (01) ==
LOC: HO.ACS 09:58
PROVIDERS: PCP Internal Medicine; Visit Provider Internal Medicine
DX: Z79.01 Long term (current) use of anticoagulants (principal)

== ENCOUNTER → 2024-10-14 09:26 | Outpatient (BNVA) | payer OTHER, SELFPAY | PROVIDERS: PCP Internal Medicine; Visit Provider Internal Medicine | DX: I26.99 Other pulmonary embolism without acute cor pulmonale (principal); I74.9 Embolism and thrombosis of unspecified artery; I27.20 Pulmonary hypertension, unspecified; I89.0 Lymphedema, not elsewhere classified; R06.09 Other forms of dyspnea; G47.33 Obstructive sleep apnea (adult) (pediatric); R60.0 Localized edema; J90 Pleural effusion, not elsewhere classified; Z79.01 Long term (current) use of anticoagulants; Z51.81 Encounter for therapeutic drug level monitoring | CPT/HCPCS: 85610; 99211; 99212 ==

== ENCOUNTER → 2024-10-14 09:48 | Outpatient (AMB) | payer OTHER, SELFPAY ==
--- NOTE | 2024-10-14 09:51 | A.OFFVIS_ITS ---
Vital Signs 10/14/24 09:52 Height 5 ft 5 in BMI Reason not done Patient refused/unable BP 128/70 Blood Pressure Location Lt radial Position Sitting Pulse 86 Pulse Source Pulse Oximeter Pulse Oximetry (%) 98 Oxygen Delivery Method Room Air Intake Visit Reasons: PE Allergies lisinopril [LISINOPRIL] Allergy (Severe, Verified 10/14/24 09:56) ANGIOEDEMA dapagliflozin [From FARXIGA] Allergy (Intermediate, Verified 10/14/24 09:56) HIVES liraglutide [From VICTOZA] Allergy (Intermediate, Verified 10/14/24 09:56) RASH metformin [METFORMIN] Allergy (Intermediate, Verified 10/14/24 09:56) GI UPSET erythromycin base [ERYTHROMYCIN BASE] Allergy (Unknown, Verified 10/14/24 09:56) UNKNOWN amitriptyline [AMITRIPTYLINE] Adverse Reaction (Intermediate, Verified 10/14/24 09:56) DRUGGED FEELING HPI Comments Details: The patient is a 49-year-old woman with a known history of pulmonary emboli currently on Eliquis presenting with worsening dyspnea symptoms. Patient complains of dyspnea on exertion. Moderate severity. denies any wheezing or coughing. The patient does not have any respiratory inhalers at this time. She denies any wheezing although she does have chest tightness. In addition to that the patient does have daytime drowsiness. Her [place] score is elevated 12/24. The patient does have cardiovascular risk factors. Patient needs to undergo home sleep study this time. We did review imaging studies that we have available including a CT scan of the chest angiogram ruling out pulmonary embolism in the spring. the lung parenchyma is also within normal limits which is reassuring. 08/16/2022 the patient is here for a pulmonary follow-up visit. The patient overall has been feeling relatively well. She still has some daytime drowsiness. Her [place] score is elevated 9/24. The patient did have a sleep study done. Appears that she was sleeping the most part on her back and she had a mild degree of sleep apnea with an AHI just above 5. her sleep apnea was less severe when she laid on her sides. Therefore she wants to try positional therapy for now. If she does not improved after positional therapy then can consider CPAP therapy. The patient also continues on the Eliquis. She is tolerating it well. No minor major bleeding noted. she did undergo pulmonary function studies personally by me demonstrating an isolated moderate diffusion impairment. We did talk about potentially chronic thromboembolic disease could result in this presentation. But she is also anemic and that can also result in the diffusing impairment as well. She is currently on iron. 10/25/2022 the patient is here for pulmonary follow-up visit. The patient has been complaining of increasing shortness of breath. Moderate severity. Also complaining of right-sided pleuritic chest pain. She went to the gym yesterday and she got short of breath and also felt dizzy. She did undergo blood work which we reviewed. She has an elevated white count in addition to a left shift suggesting an infectious process. On further questioning she has been coughing more recently. In addition to that she does complaint of that pleuritic discomfort. She did have blood work which we debrided reviewed together. White count is elevated consistent with an infectious process. In addition to that her D-dimer is elevated. On further questioning she is not taking her Eliquis correctly. She is only doing it daily. With her elevated D-dimer in the pleuritic chest pain in a history of previous blood clots the patient needs to get a repeat CT scan of the chest PE protocol. Will request 1 at this time. However, being Friday if the patient develops any worsening symptoms she should go to the ER. 01/09/2023 the patient is here for a pulmonary follow-up visit. The patient still having shortness of breath even after being hospitalized. She did increase her Eliquis medication to twice a day. The patient still has significant shortness of breath with minimal activity moderate severity. She complains of chest discomfort. She is wondering if the Eliquis is working. She did follow-up with her oncologist. It appears that she does have factor 5 Leiden putting her risk for blood clots and also her family. She needs to make sure the family is aware of this had artery disease. We did taken for walking oximetry the patient did desaturate down to 87% with activity and she was also tachycardic to 130. I am concerned that she may have at this point chronic thromboembolic disease. Will go ahead and order a V/Q scan and switch over to Coumadin. If the patient continues to have blood clots even after that will have to consider a referral to [place]. 02/06/2023 The patient is here for a follow up visit. Switched over to coumadin. But, then ended up with a tooth infection and placed on abx. Started developing headaches and blurry vision. She had her INR check and it was critically high 6.8. She is using the oxygen with good effect. Has an ECHO scheduled for next week. We will plan to repeat her VQ scan in 6-8 weeks, if no better, then will need a referral to [facility] [place]. In the meantime, I did call the ED triage and took her to the ED to assess for an acute bleed for the supra therapeutic INR. 07/23/2023 the patient is here for a pulmonary follow-up visit. The patient continues to be about the same. Still having shortness of breath with activity. The oxygen has been affecting beneficial. She continues on the Coumadin. Her Coumadin levels continue to fluctuate. The patient did go to [place]. Chief deemed high risk for the pulmonary artery enterectomy therefore, the patient will undergo angioplasty. Will be broken up in about 3-4 procedures. She will have to switch over to Lovenox intermittently for the procedures. Will going to go ahead and work with the Coumadin clinic in order to do so effectively. She will continue with the oxygen for now. The patient also has to follow-up with her surgeon for the abnormal findings of the thyroid but that can hold and wait until she is stable from a pulmonary standpoint. She continues to work with her reel slitter regarding her diabetes which appears to be better. She will continue with current therapy. Will follow-up in a couple months after she has completed with her angioplasty and perform a 6 minutes walk test to see if we can titrate her down to a conserving device in order for her to have an easier time caring the oxygen. We can also consider the use of vasodilators very therapy. Will discuss that further with [place]. 11/11/2023 the patient is here for a pulmonary follow-up visit. She is status post angioplasty although pulmonary vessels. Unfortunately she continues to be short of breath. Her V/Q scan in [place] demonstrated some slight improvement per the patient's report. I do not have any objective data at this time. She continues use her oxygen with activity and also with sleep. She continues on the blood thinners currently on Coumadin. She is tolerating it well maintaining the INR within therapeutic range. We did take her briefly for walking oximetry to see if she can tolerated conserving device. But, the patient became very tachycardic and also dyspneic. The patient still has significant pulmonary hypertension due to the chronic thromboembolic disease. This is WHO group 4. in view of her ongoing symptoms of tachycardia shortness of breath this is consistent with a [place] Heart Association class 4 where she is short of breath even at rest. Therefore, will place on vasodilators therapy, PD 5 inhibitor, to treat her underlying pulmonary hypertension. The patient was start the medication and then returned 3 months but we can repeat her echocardiogram and also repeat her 6 minute walk test with the hope that she can tolerate then the conserving device. The patient is also having significant daytime drowsiness. Her [place] score is elevated 08/01. She does have increased cardiovascular risk factors. The patient will benefit for another sleep study. She did have mild sleep apnea back in 2021. at this point she will require an in-lab sleep study. The patient will hold off for now but will further discuss it during her follow-up. 03/09/2024 the patient is here for a pulmonary follow-up visit. Since we last spoke the patient did undergo her thyroid surgery. She did tolerate well. However, after she did develop worsening shortness of breath. She was recommended to go to the ER. She went to the [facility] ER. There she had a CTA. I did personally review. No evidence of any pulmonary emboli in no evidence of any airspace disease. Otherwise look reasonable. The patient did have blood work at [facility] demonstrating an elevated brain atretic peptide. The patient was treated and released. The patient does have her oxygen therapy although she has a hard time carrying the Tanks after surgery. She seems a little volume overload. We did review her last echocardiogram. She has a 1+ diastolic dysfunction. She does have slight increase in the right ventricular size but otherwise normal function and normal pulmonary pressures which is reassuring. She does continue on the sildenafil. She has tolerating the vasodilators well. She continues on the Coumadin. Her levels are slightly subtherapeutic. She will continue to work closely with the Coumadin clinic. 07/12/2024 the patient is here for a pulmonary follow-up visit. Since we last spoke she started developing left-sided pleuritic discomfort. She went to the ER this is an June. There she did have a chest x-ray. I personally reviewed. Appears that she has a small pleural effusion there that is new consistent with pleurisy. The patient's symptoms did improve. Will have to get a repeat x-ray to make sure things are better. She does continue to use the oxygen with good effect. In the office we did go for a walking oximetry and a conserving trial. She did very well on 2 L pulse maintaining a pulse ox of 96% with activity on 2 L pulse. She was still tachycardic throughout the ambulation consistent with a history of chronic thromboembolic disease. Her last echo was back in February and was reassuring pressures are better. Although will go ahead and repeat them specially because some concerned that with the angioplasty the results can reverse. If that is the case we can always consider increasing the Revatio. She continues to take Coumadin. She does have lower extremity edema but is asymmetrical with left more than right. Will go ahead and request a ultrasound to make sure she does not have a clot specially with the ongoing tachycardia. 10/14/2024 the patient is here for a pulmonary follow-up visit. Overall she is doing okay now. She did have some severe headaches and her INR was critically elevated at 13. at that point she went to the hospital she did have a CT of the brain without any evidence of any acute disease. She was given vitamin K. Afterwards her INR was very low and did not increase above 1. Therefore she had to go on Lovenox for some time. She did check her INR today was 2.3 which is reassuring. She is no longer having to the Lovenox. In the meantime the patient continues use the oxygen. She does complaint of dyspnea on exertion. We did review her last echocardiogram done in the fall demonstrating no evidence of any pulmonary hypertension which is reassuring. She continues on the sildenafil with good response. She also continues use the oxygen. She has also had significant amount of weight loss. Will continue to monitor her INR. If we still have issues with significant fluctuations of her INR then will look into switching her to a non vitamin K anticoagulation such as Xarelto. She had tried and failed Eliquis in the past. However, may have an issue with the fact that she had only been taking it once a day therefore with her weight loss we can consider other alternatives. She did not like the idea of staying on the Lovenox because he had significant amount of pain and bruising from the shots. [facility] Medical History (Updated 10/14/24 @ 10:12 by Odilon Land MD) Lymphedema Pleurisy with effusion Pleurisy Pulmonary hypertension Hypercoagulable state Thyroid cancer Chronic thromboembolic disease Lower extremity edema Multinodular thyroid Family history of deep venous thrombosis Pleuritic chest pain Pulmonary emboli Dyspnea Dyspareunia in female Anemia Obstructive sleep apnea Morbid obesity History of COVID-19 (~2020) History of pulmonary embolus (PE) (~2020) Anxiety Chronic headaches Dyspnea on exertion Diabetes type 2, controlled Hypothyroid HTN (hypertension) Hyperlipidemia Surgical History History of angioplasty History of surgery on right wrist History of foot surgery History of tubal ligation History of carpal tunnel surgery History of ERCP History of laparoscopic cholecystectomy History of surgery Family History Father Myocardial infarction COPD (chronic obstructive pulmonary disease) Mother COPD (chronic obstructive pulmonary disease) Brother Colitis Social History Housing: House Alcohol intake: former Comment: pt d/c home Patient Tobacco Use Status: Never used Tobacco service: No Current occupational status: employed 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, 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 Current occupational exposures/hazards: No Review of Systems Const Denies chills, Reports daytime sleepiness, Reports difficulty sleeping, Denies fever(s), Denies frequent falls, Reports headache(s), Denies night sweats, Reports snoring and Reports weight loss Eyes Reports blurry vision, Reports change in vision and Reports eye pain ENT Reports dizziness and Reports headache(s) Card Reports chest pain, Denies chest pain at rest, Denies chest pain with activity, Denies irregular heart rhythm, Denies claudication, Reports leg edema, Denies palpitations and Reports dyspnea on exertion Resp Denies cough, Reports pain on inspiration, Reports pain with cough, Reports dyspnea on exertion and Reports snoring Musc Reports deformity, Reports arthralgias, Reports joint swelling, Denies limited range of motion and Reports stiffness Neuro Reports dizziness, Denies frequent falls and Reports headache(s) Endo Denies palpitations Physical Exam Vital Signs: Last Vital Signs Pulse 86 10/14/24 09:52 BP 128/70 10/14/24 09:52 Pulse Ox 98 10/14/24 09:52 Oxygen Delivery Method Room Air 10/14/24 09:52 Const General: cooperative, healthy appearing, no acute distress and alert Orientation/consciousness: oriented to person, oriented to place and oriented to time Limitations: no limitations HEENT Head: Yes normal to inspection, Yes normocephalic and Yes atraumatic Mouth: moist mucous membranes Eyes Sclerae: sclerae normal Neck Neck: Yes normal visual inspection Chest Chest palpation & inspection: normal inspection of the chest Resp Effort & Inspection: normal respiratory effort and able to speak in complete sentences Auscultation: no wheezes and diminished lung sounds Cardio Jugular venous distension: no JVD Rate: tachycardic Rhythm: regular rhythm Heart sounds: S1 normal heart sound present and S2 normal heart sound present GI Inspection: Yes normal to inspection Skin General skin exam: no rashes or lesions noted Neuro General: oriented to person, oriented to place, oriented to time and moves all extremities Gait exam (Neuro): Antalgic gait present Motor exam (neuro): 5/5 motor strength present throughout Extrem General: Yes no clubbing, cyanosis or edema Right lower extremity: knee Details: abnormal to inspection, tenderness Location: of the patella and of the lateral joint line, abnormal ROM, crepitus Location: at the kneww, deformity and warmth; no swelling and no ecchymosis Left lower extremity: knee Details: abnormal to inspection, tenderness, abnormal ROM, crepitus, deformity and warmth; no swelling and no ecchymosis Psych Appearance: grossly normal Mental Status: mental status grossly normal Speech and movement: Normal speech and movement present and Clear speech present Affect: normal affect Attitude: cooperative Thought process: Normal thought process present Thought content: Normal thought content present Insight: Good insight present (Psych) Judgement: Good judgement present (Psych) Assessment & Plan Assessment & Plan (1) Dyspnea: Code(s): R06.00 - Dyspnea, unspecified Category: Medical Qualifiers: Dyspnea type: dyspnea on exertion Qualified Code(s): R06.09 - Other forms of dyspnea (2) SERA (obstructive sleep apnea): Code(s): G47.33 - Obstructive sleep apnea (adult) (pediatric) Category: Medical (3) Bilateral pulmonary embolism: Code(s): I26.99 - Other pulmonary embolism without acute cor pulmonale Category: Medical (4) Lower extremity edema: Code(s): R60.0 - Localized edema Category: Medical (5) Chronic thromboembolic disease: Code(s): I74.9 - Embolism and thrombosis of unspecified artery Category: Medical (6) Pulmonary hypertension: Code(s): I27.20 - Pulmonary hypertension, unspecified Category: Medical (7) Pleurisy with effusion: Code(s): J90 - Pleural effusion, not elsewhere classified Category: Medical (8) Lymphedema: Code(s): I89.0 - Lymphedema, not elsewhere classified Category: Medical Plan s/p Angioplasty continue Coumadin, monitor INR continue sildenafil TID continue Symbicort Coumadin clinic continue oxygen 2L with activity, qualifies for POC 2L/pulse for better portability outside of the home LORRIE as needed compression stocking F/U 3 months Medications: New compress.stocking,knee,reg,med 15-20 cm 2 ea 0RF I89.0 - Lymphedema, not elsewhere classified, R60.0 - Localized edema dextromethorphan-guaifenesin 60-1,200 mg ER (Mucinex DM) 1 tab PO Q12H 28 tabs 0RF 14 days methylprednisolone (Medrol (Gene)) PO PER PKG DIR 21 ea 0RF 6 days Coding Level of Care Code Est Pt Level 4 (43853) Complex EM visit Add On G2211 Diagnoses Dyspnea on exertion R06.09 Dyspnea type: dyspnea on exertion SERA (obstructive sleep apnea) G47.33 Bilateral pulmonary embolism I26.99 Lower extremity edema R60.0 Chronic thromboembolic disease I74.9 Pulmonary hypertension I27.20 Pleurisy with effusion J90 Lymphedema I89.0 Time Spent (min) 17
--- OUTSIDE RECORDS SUMMARY | 2024-10-14 09:54 | XMS_ITS | Clinical Summary ---
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
== END | disposition home or self-care (01) ==
PROVIDERS: PCP Internal Medicine; Visit Provider Hospitalist
DX: R06.09 Other forms of dyspnea (principal); G47.33 Obstructive sleep apnea (adult) (pediatric); I26.99 Other pulmonary embolism without acute cor pulmonale; R60.0 Localized edema; I74.9 Embolism and thrombosis of unspecified artery; I27.20 Pulmonary hypertension, unspecified; J90 Pleural effusion, not elsewhere classified; I89.0 Lymphedema, not elsewhere classified
CPT/HCPCS: 99214; G2211

== ENCOUNTER 2024-10-21 11:49 | Outpatient (REF) | payer OTHER, SELFPAY ==
--- OUTSIDE RECORDS SUMMARY | 2024-10-21 12:16 | XMS_ITS | Clinical Summary ---
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
--- OUTSIDE RECORDS SUMMARY | 2024-10-21 12:16 | XMS_ITS ---
Author Organization Dario Urbano III, MD Address [address] [place] [address] Care Team Providers Care Physician Vice President Name Role Phone Jacinta ANGULO, [facility] Primary Care Provider Dario Slater [phone] Allergies Allergen (clinical drug ingredient) Drug/Non Drug [...] Date Provider Diagnosis Dario Urbano III, MD [address] [place] [address] [place] [address] 09/29/2023 Dario Urbano Morbid obesity E66.0 1 [...] consider the weight loss surgery program at [facility]. She has gained 10 pounds since [...] (ICD-10 - E03.9) She says is her sales account director was going to put her on [...] series of pulmonary artery angioplasties at the [facility] the next of which will be [...] Year, Reason: O V Provider Name:Dario Urbano, 02/11/2025 10:15:00 AM, [address] [place] [address] [address] [address], [place], [address], Progress Notes * Domonique SANTILLAN SDOB:1975 (48 yo F)Acc No.[id number]:09/29/2023 Progress Notes Patient:?Santillan, Domonique S Provider:?Dario Urbano MD :1975???Age:48 Y???Sex:Female D ate:09/29/2023 Address:[address] [place] [address] [place] [id number] Pcp:Deena Workman MD Subjective: * Chief Complaints: [...] consider the weight loss surgery program at [facility]. She has gained 10 pounds since [...] hypothyroidism - E03.9, She says is her sales account director was going to put her on thyroid replacement.?8.?Pulmonary embolism, unspecified chronicity, unspecified pulmonary embolism type, unspecified whether acute cor pulmonale present - I26.99, She was breathing comfortably today and has had no further episodes of dizziness or arterial thromboembolism. She had multiple pulmonary emboli/2022.These have caused dyspnea with exertion and she is undergoing a series of pulmonary artery angioplasties at the [facility] the next of which will be [...] Urbano MD Date:?09/09 Generated for Printi ng/Nettie/eTransmitting on:?10/21/2024 12:16 PM EST History and Physical Notes * HPI (History of Present Illness) Category Sub-Category Detail Notes COVID-19 Screening Questions Have you had any new onset fever, chills, cough, congestion, sore throat, shortness of breath, muscle aches?: No Have you been exposed to the virus withi n the last 10 days?: No Have you travelled internationally in [facility] last 10 days?: No Have you [...]
--- OUTSIDE RECORDS SUMMARY | 2024-10-21 12:17 | XMS_ITS ---
Author Organization Dario Urbano III, MD Address [address] [place] [address] Care Team Providers Care Cath Lab Name Role Phone Jacinta ANGULO, [facility] Primary Care Provider Dario Slater Unavailable [phone] Allergies Allergen (clinical drug ingredient) Drug/Non Drug [...] Date Provider Diagnosis Dario Urbano III, MD [address] [place] [address] [place] [address] 09/29/2024 Dario Urbano Morbid obesity E66.0 1 [...] consider the weight loss surgery program at [facility]. 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 is her visual designer was going to put her on [...] 2 Weeks, Reason: Telehealth Provider Name:Dario Urbano, 02/11/2025 10:15:00 AM, [address] [place] [address] [place], [place], [address], Progress Notes * Domonique SANTILLAN SDOB:1975 (49 yo F)Acc No.[id number]:09/29/2024 Progress Notes Patient:?Domonique SANTILLAN S Provider:?Dario Urbano MD :1975???Age:49 Y???Sex:Female D ate:09/29/2024 Address:[address] [place], [place] [address] [id number] Pcp:Deena Workman MD Subjective: * Chief Complaints: [...] consider the weight loss surgery program at [facility]. She has lost 59 pounds since [...] hypothyroidism - E03.9???Notes :She says is her visual designer was going to put her on [...] Urbano MD Date:?09/09 Generated for Satish lai/Nettie/eTransmitting on:?10/21/2024 12:16 PM EST History and Physical [...]
--- OUTSIDE RECORDS SUMMARY | 2024-10-21 12:17 | XMS_ITS | Patient Health Record ---
Author Organization Dario Urbano III, MD Address [address] [place] [address] Care Team Providers Care Network Intern Name Role Phone Jacinta ANGULO, [facility] Primary Care Provider Dario Slater [phone] Allergies Allergen (clinical drug ingredient) Drug/Non Drug [...] Notes Complete Blood Count Auto Di ff Reviewed date:10/08/2024 08:30:57 AM Interpretation: Performing Lab:[facility], [address] [place] [id number] Notes/Report: White Blood Count 9.3 4.8-10.8 X10*3/uL [...] 0.000 0.0-0.012 X10*3/uL Erythrocyte Sedimentation Ra te Reviewed date:10/08/2024 08:30:58 AM Interpretation: Performing Lab:[address] [address] Notes/Report: Erythrocyte Sedimentation Rate 23 0-20 MM/HR Patients with polycythemia and many hemoglobin abnormalities may have depressed sed rates whereas patients with anemia may have elevated sed rates. RETIC Reviewed date:10/08/2024 08:30:58 AM Interpretation: Performing Lab:[address] [address] Notes/Report: Reticulocytes Absolute 0.058 0.026-0.095 X10*6/ uL Immature Retic Fraction 20.0 3.0-15.9 % Retic HGB Equivalent 23.7 30.0-35.0 pg Reticulocyte Percent 1.1 0.5-1.8 % Ferritin Reviewed date:10/08/2024 08:30:58 AM Interpretation: Performing Lab:[address] [address] Notes/Report: Ferritin 18 10-250 ng/mL Reason For Referral No Information Medications Medication SIG (Take, Route, Frequency, Duration) Notes Start Date End Date Status Rosuvastatin Calcium 10 MG 1 tablet Oral ly Once a day 09/29/2024 Active [facility] Vitamin B-12 1000 MCG TAKE 1 TABLET BY MOUTH EVERY DAY FOR 90 DAYS Active Ventolin HFA 108 (90 Base) MCG/ACT Inhalation Active Albuterol Sulfate HFA 108 (90 Base) MCG/ACT 1 puff as needed Inhalation every 4 hrs Active Albuterol Sulfate (2.5 MG/3ML) 0.083% 3 mL as needed Inhalation every 6 hrs Active Mounjaro 7.5 MG/0.5ML as directed Subcut aneous Once a week Active metFORMIN HCl 1000 MG 2 tablet with a me al Orally twice a day Active Warfarin Sodium (5 MG) [...] Orally On ce a day 09/29/2024 Active Sildenafil Citrate 20 [...] Problem Status W/U Status Risk Notes Problem 67349822 Dysthymic disorder (F34.1) Active confirmed Her depress ion is mild and I will recommend no change in her current medications. Problem 127296018 Acquired hypothyroidism (E03.9) Active confirmed She has been continued on her current dose of levothyroxine without change. Problem 443016168 Vitamin B 12 deficiency (E53.8) Active confirmed A B12 level is not available at this time. She was continued on current therapy and the value will be followed. 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 She has been referred to [facility] for thyroidectomy. This will require cessation of her anticoagulation . Problem 081916154 History of cholecystectomy (Z90.49) Active confirmed Problem 200602051 Thrombophilia (D68.59) Active confirmed She has had no further blood clots or emboli. No change in her regimen was made. Problem 34197781 Iron deficiency anemia, unspecified iron deficiency anemia type (D50.9) Active confirmed Her hematocrit has increased to 37.9 but [...] near future. An explanation will be sought. Problem 246811104 Morbid obesity (E66.01) Active confirmed Her body mass index is now 41.We discussed diet and nutrition. I recommended aggressive weight loss. I recommended she consider the weight loss surgery program at [facility]. She has lost 59 pounds since her last visit. Problem 33391472 Adult onset diabetes mellitus with ketoacidosis (E11.10) Active confirmed She has been compliant with her medications, which are prescribed by primary care. 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 It has not affected her life significantly. No change in her regimen as needed. Problem 97428528 Pulmonary embolism, unspecified chronicity, unspecified pulmonary embolism type, unspecified whether acute cor pulmonale present (I26.99) Active confirmed She was breathing comfortably today and has had no further episodes of dizziness or arterial thromboembolism . She had multiple pulmonary emboli/2022.These have caused dyspnea with exertion and she is undergoing a series of pulmonary artery angioplasties at the [facility] the next of which will be in August2023. Vital Signs Heart Rate 96 /min 09/29/2024 Temperature 97.3 degrees Fahrenheit 09/29/2024 Blood pressure diastolic 92 mm Hg 09/29/2024 Height 64 in 10/13/2024 Blood pressure systolic 118 mm Hg 09/29/2024 Weight 243 lbs 10/13/2024 BMI 41.71 kg/m2 10/13/2024 Encounters Encounter Location Date Provider Diagnosis Dario Urbano III, MD [address] [place] [address] [place] [address] 09/29/2024 Dario Urbano Morbid obesity E66.0 1 ; Thrombophilia D68.59 ; Iron deficiency anemia, unspecified iron deficiency anemia type D50.9 ; Dysthymic disorder F34.1 ; Post-cholecystectomy syndrome K91.5 ; Adult onset diabetes mellitus with ketoacidosis E11.10 ; Vitamin B 12 deficiency E53.8 and Acquired hypothyroidism E03.9 Dario Urbano III, MD [address] [place] [address] [place] [address] 10/13/2024 Dario Urbano Morbid obesity E66.0 1 [...] consider the weight loss surgery program at [facility]. She has lost 59 pounds since [...] future. An explanation will be sought. 10/13/2024 Morbid obesity (ICD-10 - E66.01) Her body mass index is now 41.We discussed diet and nutrition. I recommended aggressive weight loss. I recommended she consider the weight loss surgery program at [facility]. She has lost 59 pounds since her last visit. 09/29/2024 Iron deficiency anemia, unspecified iron deficiency anemia type (ICD-10 - D50.9) Comprehensive blood work is not available today. I have ordered it to be done in the near future. Her regimen was continued unchanged until that is available. 10/13/2024 Acquired hypothyroidism (ICD-10 - E03.9) She has been continued on her current dose of levothyroxine without change. 09/29/2024 Dysthymic disorder (ICD-10 - F34.1) Her depression is mild and I will recommend no change in her current medications. 10/13/2024 Thrombophilia (ICD-10 - D68.59) She has had no further blood clots or emboli. No change in her regimen was made. 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 It has not affected her life significantly. No change in her regimen as needed. 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 It has not affected her life significantly. No change in her regimen as needed. 09/29/2024 Adult onset diabetes mellitus with ketoacidosis (ICD-10 - E11.10) She has been compliant with her medications, which are prescribed by primary care. 10/13/2024 Dysthymic disorder (ICD-10 - F34.1) Her depression is mild and I will recommend no change in her current medications. 09/29/2024 Vitamin B 12 deficiency (ICD-10 - E53.8) A B12 level is not available at this time. She was continued on current therapy and the value will be followed. 10/13/2024 Vitamin B 12 deficiency (ICD-10 - E53.8) A B12 level is not available at this time. She was continued on current therapy and the value will be followed. 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 Plan Of Treatment Pending Test Test Name Order Date PROFILE, FASTING (COMPREHENSIVE METABOLI C) 02/23/2021 PROFILE, FASTING (COMPREHENSIVE METABOLI C) 07/27/2020 PROFILE, FASTING (COMPREHENSIVE METABOLI C) 10/13/2024 PROFILE, FASTING (COMPREHENSIVE METABOLI C) 03/23/2020 PROFILE, [...] HORMONE) 2019 TSH (THYROID STIMULATING HORMONE) 2020 TSH (THYROID STIMULATING HORMONE) 2024 FERRITIN 03/23/2020 FERRITIN 12/23/2019 FERRITIN 07/04/2021 FERRITIN [...] V LEIDEN 11/18/2022 CBC WITH AUTO DIFF 10/13/2024 CBC WITH AUTO DIFF 09/29/2024 RETIC 10/13/2024 RETIC 09/29/2024 Ferritin 04/15/2022 Ferritin 10/13/2024 Ferritin 09/29/2024 Lipid Panel 10/13/2024 Folate 04/15/2022 Free T4 (Free Thyroxine) 10/13/2024 Next Appt Details Provider Name:Dario Urbano, 02/11/2025 10:15:00 AM, [address] [place] [address] [address], [place], [address], Insurance Providers Payer Name Payer Address Payer Phone Subscriber Number Group Number Insured Name Patient Relationship to Insured Coverage Start Date Coverage End Date [employer] [address] [address] [place] [address] [id number] Domonique Bro Self - patient is the insured MEDICAID [address] [place], [place] [id number] Domonique Bro Self - patient is the insured Medical (General) History Medical History History ICD Code Hyperlipidemia, unspecified hyperlipidem ia type E78.5 Postcholecystectomy syndrome K91.5 Dysmenorrhea N94.6 Morbid obesity E66.01 Dysthymic disorder F34.1 Anemia, unspecified type D64.9 Type 2 diabetes mellitus wit h complication, unspecified whether 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
--- OUTSIDE RECORDS SUMMARY | 2024-10-21 12:17 | XMS_ITS ---
Author Organization [facility] Address [address] [place] [address] Care Team Providers Care Manufacturing Maintenance Technician Name Role Phone Deena Workmna Primary Care Provider UnavailDario Cooper Unavailable [phone] ALLERGIES Allergen (clinical drug ingredient) Drug/Non Drug [...] End Date Status Sertraline HCl 100 MG Oral for 90 Active Rosuvastatin Calcium 10 MG 1 tablet Oral ly Once a day for 30 day(s) 10/07/2024 Active Sildenafil Citrate 20 MG Oral for 90 Active Mounjaro 7.5 MG/0.5ML INJECT 7.5 MG (0.5 ML) SUBCUTANEOUSLY EVERY WEEK Subcutaneous for 28 Active Levothyroxine Sodium 50 MCG 1 tablet [...] ening meal orally twice a day Active Albuterol Active SOCIAL HISTORY Tobacco Use: [...] History of poly p of colon (situation) (833818174) Problem Anticoagulant long-term use (Z79.01) Active confirmed Long-term current use of anticoagulant (016283527) VITAL SIGNS BMI 39.40 kg/m2 10/07/2024 Blood pressure systolic 00 mm Hg 10/07/19 25 Blood pressure diastolic 00 mm Hg 025 Height 65 in 10/07/2024 Weight 236.8 lbs 10/07/2024 Encounters Encounter Location Date Provider Diagnosis [facility] [address] [place] [address] 10/07/2024 Dario Ramsey Irritable bowel syndrome K58.9 [...] Order Date COLONOSCOPY 10/07/2024 Next Appt Details Follow Up: prn, Reason: Provider Name:Dario Ramsey , 01/17/2025 11:30:00 AM, [address] [place] [address], [phone], Progress Notes * Examination Category Sub-Category Detail Notes General Examination GENERAL APPEARANCE: pleasant , well nourished, well developed, in no acute distress--she is wearing nasal oxygen HEAD: EYES: sclera non-icteric EARS: NOSE: THROAT: NECK/THYROID: no cervical lymphade nopathy, neck supple HEART: S1, S2 normal CHEST: LUNGS: clear to auscultatio n bilaterally ABDOMEN: normal bowel sounds, no guarding or rigidity, no guarding or rigidity, no masses palpable, soft, nontender, nondistended NEUROLOGIC: alert and oriented SKIN: nonjaundiced, no spi landon angiomata EXTREMITIES: no edema PERIPHERAL PULSES: BACK: BREASTS: MUSCULOSKELETAL: MALE GENITOURINARY: LYMPH NODES: RECTAL EXAM: FEMALE GENITOURINARY: ORAL CAVITY: mucosa moist
--- OUTSIDE RECORDS SUMMARY | 2024-10-21 12:17 | XMS_ITS | Patient Health Record ---
Author Organization [facility] Address [address] [place] [address] Care Team Providers Care Engraver Block Name Role Phone Deena Workman Primary Care Provider Unavailab Dario Holbrook Unavailable [phone] ALLERGIES Allergen (clinical drug ingredient) Drug/Non Drug [...] e a day for 30 day(s) Active Sertraline HCl 100 MG Oral for 90 Active Rosuvastatin Calcium 10 MG 1 tablet Oral ly Once a day for 30 day(s) 10/07/2024 Active Sildenafil Citrate 20 MG Oral for 90 Active Mounjaro 7.5 MG/0.5ML INJECT 7.5 MG (0.5 ML) SUBCUTANEOUSLY EVERY WEEK Subcutaneous for 28 Active metFORMIN HCl ER 500 MG 2 tablet with ev ening meal orally twice a day Active Albuterol Active IMMUNIZATIONS Vaccine Route Administration Date Status [...] (K58.9) Active confirmed Irritable b owel syndrome (78503921) Problem Colon cancer screening (Z12.11) Active confirmed Colon cancer screening (067254026) Problem Microcytic anemia (D50.9) Active confirmed Microcytic anem ia (789296864) Problem Diverticulosis of colon (K57.30) Active confirmed Diverticulosi s of colon (034031519) Problem Personal history of colonic polyps (Z86.010) Active confirmed History of poly p of colon (situation) (770000452) Problem Anticoagulant long-term use (Z79.01) Active confirmed Long-term curre nt use of anticoagulant (044428496) VITAL SIGNS Blood pressure diastolic 00 mm Hg 10/07/2024 Height 65 in 10/07/2024 Blood pressure systolic 00 mm Hg 10/07/2024 Weight 236.8 lbs 10/07/2024 BMI 39.40 kg/m2 10/07/2024 Encounters Encounter Location Date Provider Diagnosis [facility] [address] [place] [address] 10/07/2024 Dario Ramsey Irritable bowel syndrome K58.9 ; Colon cancer screening Z12.11 ; Personal history of colonic polyps Z86.010 and Anticoagulant long-term use Z79.01 [facility] [address] [place] [address] 10/08/2024 Dario Ramsey ASSESSMENTS Encounter Date Diagnosis Assessment Notes Treatment Notes Treatment Clinical Notes 10/07/2024 Colon cancer screening (ICD-10 - Z12.11) [...] Land for the Anesthesia and Colonoscopy 10/07/2024 Irritable bowel syndrome (ICD-10 - K58.9) 10/07/2024 Personal history of colonic polyps (ICD-10 - Z86.010) 10/07/2024 Anticoagulant long-term use (ICD-10 - Z79.01) PLAN OF TREATMENT Pending Test Test Name Order Date CELIAC PANEL #10 05/22/2022 Future Test Test Name Order Date COLONOSCOPY 05/22/2022 COLONOSCOPY 10/07/2024 Next Appt Details Provider Name:Dario Ramsey , 01/17/2025 11:30:00 AM, [address] [facility] , [place], [place], [phone], Insurance Providers Payer Name Payer Address Payer Phone Subscriber Number Group Number Insured Name Patient Relationship to Insured Coverage Start Date Coverage End Date [facility] [address] [address] [place], [place] [id number] KASANDRA SANTILLAN Self - patient is the insured MEDICAID OF [facility] [address] [place] [address] [id number] KASANDRA SANTILLAN Self - patient is the insured MEDICAL (GENERAL) HISTORY Medical History History ICD Code ERCP with sphincterotomy 10-30-2001 Pulmonary emboli with COVID 10/2020-she describes a two-week hospitalization although did not require intubation. She describes having been left with some respiratory issues for which she is seeing Dr. Land. She also describes some residual brain fog Arthritis Denies MS,CVA NIDDM Anemia from heavy menses--she sees Dr. Elena Urbano for that IBS with diarrhea-negative labs for rene ac disease Colonoscopy 07/2022--1.5cm r ectal tubular adenoma-- site was marked with submucosal ink; neg biopsies for microscopic colitis 10/2022 pulmonary emboli--she uses oxygen at home and when she is out on an intermittent basis--she also uses it when she is sleeping although not all the time--sees Dr. Land. At that point she was switched from her previous Eliquis to Coumadin. Her anticoagulation is managed by Dr. Land 07/2023 Angiography for removal of pulmo nary clots [place] [facility] Surgical History Surgery Date(Month/Year) CCY 2001 BTL 2002 Bilateral carpal tunnel 2017 Right foot 2000 Right wrist 2021 Partial thyroidectomy for a cancer 2023
--- OUTSIDE RECORDS SUMMARY | 2024-10-21 12:17 | XMS_ITS ---
Author Organization [facility] Address [address] [place] [address] Care Team Providers Care Photogrammetry Airplane Pilot Name Role Phone Deena Workman Primary Care Provider Unavailab Dario Holbrook Unavailable [phone] REASON FOR VISIT PAT appt Encounters Encounter Location Date Provider Diagnosis [facility] [address] [place] [address] 10/08/2024 Dario Ramsey PLAN OF TREATMENT Next Appt Details Provider Name:Dario Ramsey , 01/17/2025 11:30:00 AM, [address] [facility] , [place], [place], [phone],
[2024-10-21 12:18] LABS: MANUAL DIFF FLAG NO
--- OUTSIDE RECORDS SUMMARY | 2024-10-21 12:18 | XMS_ITS ---
Author Organization Dario Urbano III, MD Address [address] [place] [address] Care Team Providers Care Assembler Semiconductor Name Role Phone Jacinta ANGULO, [facility] Primary Care Provider Dario Slater [phone] Allergies Allergen (clinical drug ingredient) Drug/Non Drug [...] Date Provider Diagnosis Dario Urbano III, MD [address] [place] [address] [place] [address] 10/13/2024 Dario Urbano Morbid obesity E66.0 1 [...] Ventolin HFA 108 (90 Base) MCG/ACT Inhalation Pending Test Test Name Order Date PROFILE, FASTING (COMPREHENSIVE METABOLI C) 10/13/2024 TSH (THYROID STIMULATING HORMONE) 2024 CBC WITH AUTO DIFF 10/13/2024 RETIC 10/13/2024 Ferritin 10/13/2024 Lipid Panel 10/13/2024 Free T4 (Free Thyroxine) 10/13/2024 Next Appt Details Follow Up: 4 Months, February, R pete: ov Provider Name:Dario Urbano, 02/11/2025 10:15:00 AM, [address] [place] [address] DR, [address], [place], [address], Progress Notes * Domonique SANTILLAN SDOB:1975 (49 yo F)Acc No.[id number]:10/13/2024 Patient:?Domonique SANTILLAN Provider:?Dario Urbano MD :1975???Age:49 Y???Sex:Female D ate:10/13/2024 Address:[address] [place], [place] [address] Pcp:Deena Workman MD Subjective: * Chief Complaints: * ???Vitamin B12 deficiencyIro n deficiency * HPI: ???:?Telehealth?Location of provider rendering services:?{...} [address] [facility] [address] ?Location of patient:?address listed in demographics for today's visit ?Patient identification confirmed using:?Name, ?Telehealth method:?Telephone only. Patient not visible to care provider. ?Consent:?Patient verbally consented to treatment, Patient verbally consented to billing insurance company, Patient informed of any privacy concerns related to method of visit ?Total time spent with patient (mins)?22 ? The patient, a 49-year-old female, has been [...] taking her medication, Monjuro, on Sundays. * ROS:?General/Constitutional:?pain?only normal aches and pains.?Chills?denies.?Fatigue?admits.?Fever?denies.?ENT:?Decreased hearing?denies.?Respiratory:?Cough?denies.?Cardiovascular:?Chest pain with exertion?denies.?Dyspnea on exertion?denies.?Shortness of breath?denies.?Gastrointestinal:?Constipation?denies.?Decreased appetite?denies.?Diarrhea?denies.?Heartburn?denies.?Nausea?denies.?Rectal bleeding?denies.?Vomiting?denies.?Hematology:?bruising?denies.?petechiae?denies.?Swollen glands?none have been noted.?Genitourinary:?Frequent urination?at night.?Musculoskeletal:?Muscle aches?denies.?Painful joints?denies.?Sciatica?denies.?Weakness?denies.?Skin:?Itching?denies.?Rash?denies.?Skin lesion(s)?denies.?Neurologic:?Difficulty speaking?denies.?Dizziness?denies.?Headache?denies.?Low back pain?denies.?Psychiatric:?Depressed mood?which is mild.? * Medical History:? * Surgical History:?left foot fasciotomy 2004right hand carpatunel 2017laparoscopic cholecystectomy 2002gravida 6 left wrist carpal tunnel 04/2018tendonitis right hand lood clots in lungs angioplasty in July2023 and 08/2023No history * Hospitalization/Major Diagno stic Procedure:?COVID 10/2020No history * Family History:?Father: dece ased 55 yrs, COPD, myocardial infarction, diagnosed with CVD.?Mother: 61 yrs, COPD, chronic kidney disease, diagnosed with CVD.?3 brother(s) - healthy. 1 daughter(s) - healthy. .? Her siblings are healthy and well. There is no family history of inherited cancer. * Social History:?Tobacco Use:?Tobacco Use/Smoking?Patient is a?nonsmoker ?Additional Findings: Tobacco Non-User?Aggressive non-smoker * Medications:?TakingCVS Vitam in B-12 1000 MCG Tablet TAKE 1 TABLET [...] * Vitals:?Ht: 64, Wt: 243, BMI :41.71, Ht-cm: 162.56, Wt-k.22. * ???Past Orders: Lab:Complete Blood Count Aut o Diff * Collection Date 10/07/2024 11/16/2022 04/15/2022 Collection Time 09:15 AM 11:04 AM 07:29 AM Order Date 10/07/2024 11/16/2022 04/15/2022 White Blood Count 9.3 (Ref Range: 4.8-10.8 X10*3/uL) 10.7 (Ref Range: 4.8-10.8 X10*3/uL) 8.2 (Ref Range: 4.8-10.8 X10*3/uL) Red Blood Count 5.43 (Ref Range: 4.20-5.50 X10*6/uL) 4.50 (Ref Range: 4.20-5.50 X10*6/uL) 4.49 (Ref Range: 4.20-5.50 X10*6/uL) Hemoglobin 11.0?L (Ref Range: 12.0-16.0 g/dl) 10.7?L (Ref Range: 12.0-16.0 g/dl) 10.5?L (Ref Range: 12.0-16.0 g/dl) Hematocrit 37.9 (Ref Range: 37.0-47.0 %) 34.7?L (Ref Range: 37.0-47.0 %) 34.2?L (Ref Range: 37.0-47.0 %) Mean Corpuscular Volume 69.8?L (Ref Range: 80.0-98.0 fL) 77.1?L (Ref Range: 80.0-98.0 fL) 76.2?L (Ref Range: 80.0-98.0 fL) Mean Corpuscular Hemoglobin 20.3?L (Ref Range: 27.0-33.0 pg) 23.8?L (Ref Range: 27.0-33.0 pg) 23.4?L (Ref Range: 27.0-33.0 pg) Mean Corpuscular HGB Conc 29.0?L (Ref Range: 31.0-35.0 g/dl) 30.8?L (Ref Range: 31.0-35.0 g/dl) 30.7?L (Ref Range: 31.0-35.0 g/dl) Red Cell Distribution Width 19.0?H (Ref Range: 11.0-16.0 %) 16.4?H (Ref Range: 11.0-16.0 %) 15.7 (Ref Range: 11.0-16.0 %) Platelet Count 244 (Ref Range: 160-400 X10*3/uL) 143?L (Ref Range: 160-400 X10*3/uL) 157?L (Ref Range: 160-400 X10*3/uL) Mean Platelet Volume TNP (Ref Range: 9.4-12.3 fL) 11.9 (Ref Range: 9.4-12.3 fL) 11.6 (Ref Range: 9.4-12.3 fL) Neutrophils Percent Auto 58.5 (Ref Range: 45-73 %) 66.1 (Ref Range: 45-73 %) 51.6 (Ref Range: 45-73 %) Imm Gran Pct Auto 0.3 (Ref Range: 0.0-0.4 %) 0.5?H (Ref Range: 0.0-0.4 %) 0.2 (Ref Range: [...] Abs Auto 0.03 (Ref Range: 0.00-0.03 X10*3/uL) 0.05?H (Ref Range: 0.00-0.03 X10*3/uL) 0.02 (Ref Range: [...] (Ref Range: 0.026-0.095 X10*6/uL) Immature Retic Fraction 20.0?H (Ref Range: 3.0-15.9 %) 19.8?H (Ref Range: 3.0-15.9 %) Retic HGB Equivalent 23.7?L (Ref Range: 30.0-35.0 pg) 26.6?L (Ref Range: 30.0-35.0 pg) Reticulocyte Percent 1.1 (Ref Range: 0.5-1.8 %) 1.6 (Ref Range: 0.5-1.8 %) ???Lab:Erythrocyte Sedimentation Rate (Order Date - 10/07/2024) (Collection Date & Time - 10/07/2024 09:15 AM)?ValueReference Range?Erythrocyte Sedimentation [id number] - MM/HR Assessment: * Assessment: 1.?Iron deficiency anemia, u nspecified iron deficiency anemia type - D50.9 (Primary)???Notes :Her hematocrit has increased to 37.9 but the mean cell volume has decreased from 76.2 down to 69.8. Reticulocyte count is normal.? Her platelets are normal at 244 and the white blood cell count is normal at 9.3.? Her ferritin is 18.? She will continue on vitamin B12 and on the iron.? These values will be repeated in the near future.? An explanation will be sought.???2.?Morbid obesity - E66.01???Notes :Her body mass index is now 41.We discussed diet and nutrition. I recommended aggressive weight loss. I recommended she consider the weight loss surgery program at [facility]. She has lost 59 pounds since her last visit.???3.?Acquired hypothyroidism - E03.9???Notes :She has been continued on her current dose of levothyroxine without change.???4.?Thrombophilia - D68.59???Notes :She has had no further blood clots or emboli.? 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 It has not affected her life significantly. No change in her regimen as needed.???6.?Dysthymic disorder - F34.1???Notes :Her depression is mild and I will recommend no change in her current medications.???7.?Vitamin B 12 deficiency - E53.8???Notes :A B12 level is not available at this time. She was continued on current therapy and the value will be followed.??? Plan: * Treatment: 2.?Morbid obesity? Continue Albuterol Sulfate HFA Aerosol Solution, 108 (90 Base) MCG/ACT, 1 puff as needed, Inhalation, every 4 hrs;?Continue Albuterol Sulfate Nebulization Solution, (2.5 MG/3ML) 0.083%, 3 mL as needed, Inhalation, every 6 hrs;?Continue Mounjaro Solution Auto-injector, 7.5 MG/0.5ML, as directed, Subcutaneous, Once a week;?Continue metFORMIN HCl Tablet, 1000 MG, 2 tablet with a meal, Orally, twice a day;?Continue Warfarin Sodium (5 MG) Tablet, 5 MG, 1 tablet, Orally, Once a day;?Continue Levothyroxine Sodium Tablet, 50 MCG, 1 tablet on an empty stomach in the morning, Orally, Once a day;?Continue Ferrous Sulfate Tablet, 325 (65 Fe) MG, TAKE 1 TABLET BY MOUTH EVERY DAY FOR 30 DAYS;?Continue Sertraline HCl Tablet, 100 MG, 1 tablet, Orally, Once a day;?Continue Sildenafil Citrate Tablet, 20 MG, Oral;?Continue Rosuvastatin Calcium Tablet, 10 MG, 1 tablet, Orally, Once a day;?Continue Ventolin HFA Aerosol Solution, 108 (90 Base) MCG/ACT, Inhalation.?LAB: PROFILE, FASTING (COMPREHENSIVE METABOLIC) ?LAB: TSH (THYROID STIMULATING HORMONE) ?LAB: CBC WITH AUTO DIFF ?LAB: RETIC ?LAB: Ferritin ?LAB: Lipid Panel ?LAB: Free T4 (Free Thyroxine) 3.?Acquired hypothyroidism?LAB: PROFILE, FASTING (COMPREHENSIVE METABOLIC) ?LAB: TSH (THYROID STIMULATING HORMONE) ?LAB: CBC WITH AUTO DIFF ?LAB: RETIC ?LAB: Ferritin ?LAB: Lipid Panel ?LAB: Free T4 (Free Thyroxine) 4.?Thrombophilia?LAB: PROFILE, FASTING (COMPREHENSIVE METABOLIC) ?LAB: TSH (THYROID STIMULATING HORMONE) ?LAB: CBC WITH AUTO DIFF ?LAB: RETIC ?LAB: Ferritin ?LAB: Lipid Panel ?LAB: Free T4 (Free Thyroxine) 5.?Others? Continue [facility] Vitamin B-12 Tablet, 1000 MCG, [...] to manage diabetes without too much effort.?Treatment Goals?Blood Sugars less than < 115, HbA1C < 7.0.?Barriers?no barriers.?Self-Managment Goals?Work on weight loss, with a goal of losing 1 lb per week.? * Follow Up:?4 Months, February (Elena freeman: ov) * Images: * Sign off status: Completed true * Provider:?Dario Urbano MD Date:?01/2025 Generated for Satish lai/Nettie/eTransmitting on:?10/21/2024 12:17 PM EST History and Physical Notes * HPI (History of Present Illness) Category Sub-Category Detail Notes Telehealth Location of [facility] rendering services:: {...} [address] [place] [address] Location of patient:: address listed in demographics [...]
[2024-10-21 12:26] LABS: Basophils Absolute Auto 0.1 X10*3/uL (0.0-0.2); Basophils Percent Auto 0.9 % (0-2); Eosinophils Absolute Auto 0.3 X10*3/uL (0.0-0.4); Eosinophils Percent Auto 3.3 % (0-4); Hematocrit 34.8 % (37.0-47.0); Hemoglobin 10.5 g/dl (12.0-16.0); Imm Gran Abs Auto 0.03 X10*3/uL (0.00-0.03); Imm Gran Pct Auto 0.4 % (0.0-0.4); Lymphocytes Absolute Auto 2.3 X10*3/uL (1.2-4.9); Mean Corpuscular HGB Conc 30.2 g/dl (31.0-35.0); Mean Corpuscular Hemoglobin 20.9 pg (27.0-33.0); Mean Corpuscular Volume 69.2 fL (80.0-98.0); Monocytes Absolute Auto 0.6 X10*3/uL (0.1-1.2); Monocytes Percent Auto 7.8 % (2-11); Neutrophils Absolute Auto 4.4 x10*3/uL (2.0-8.3); Neutrophils Percent Auto 57.6 % (45-73); Platelet Count 160 X10*3/uL (160-400); Red Blood Count 5.03 X10*6/uL (4.20-5.50); Red Cell Distribution Width 18.2 % (11.0-16.0); White Blood Count 7.7 X10*3/uL (4.8-10.8)
[2024-10-21 12:30] LABS: Estimated Average Glucose 137 mg/dL; Hemoglobin A1C 124.8124 umol/L; Hemoglobin A1c % 6.4 % (<6.0); Total Hemoglobin (HGBA1C) 2719.0624 umol/L
[2024-10-21 12:46] LABS: Alanine Aminotransferase 9 U/L (0-31); Alkaline Phosphatase 82 U/L (39-117); Anion Gap 11 (12-20); Aspartate Amino Transferase 15 U/L (5-31); Bilirubin Total 0.4 mg/dL (0.0-1.0); Blood Urea Nitrogen 10 mg/dL (9-16); Calcium 9.3 mg/dL (8.4-10.2); Carbon Dioxide 23 mmol/L (22-29); Chloride 109 mmol/L (96-108); Cholesterol 145 mg/dL (<200); Estimated Glomerular Filt Rate 55; Glucose Random 122 mg/dL (60-115); HDL Cholesterol 42 mg/dL (>40); LDL Cholesterol Calculated 54 mg/dL (<100); Sodium 139 mmol/L (135-145); Total Protein 7.2 g/dL (6.5-8.0); Triglycerides 246 mg/dL (<150)
[2024-10-21 13:16] LABS: Vitamin B12 322 pg/mL (200-900)
== END 2024-10-21 11:50 | disposition home or self-care (01) ==
LOC: HO.LAB 11:49
PROVIDERS: Absent Provider Physician Assistant; PCP Internal Medicine; Visit Provider Internal Medicine
DX: E11.9 Type 2 diabetes mellitus without complications (principal); E78.2 Mixed hyperlipidemia; D63.8 Anemia in other chronic diseases classified elsewhere; I10 Essential (primary) hypertension
CPT/HCPCS: 36415; 80053; 80061; 82607; 83036; 85025

== ENCOUNTER 2024-10-22 12:56 | Outpatient (REF) | payer OTHER, SELFPAY ==
--- OUTSIDE RECORDS SUMMARY | 2024-10-22 14:06 | XMS_ITS | Clinical Summary ---
Author Organization [facility] Address [address] [place] [address] Care Team Providers Care Network Security Administrator Name Role Phone Unavailable Primary Care Provider [...] Documents on File Type Date Recorded Patient Cyber Intelligence Analyst Expl anation Health Care Decision (hx) 10/31/2020 AD MERCEDES DIRECTIVE
[2024-10-22 14:57] LABS: Creatinine Urine 157.96 mg/dL; Microalbum/Creatinine Ratio Ur 15.8 ug/mg cr (<30)
== END 2024-10-22 12:57 | disposition home or self-care (01) ==
LOC: HO.LNP 12:56
PROVIDERS: PCP Internal Medicine; Visit Provider Physician Assistant
DX: E11.9 Type 2 diabetes mellitus without complications (principal); E66.01 Morbid (severe) obesity due to excess calories; E78.5 Hyperlipidemia, unspecified; C73 Malignant neoplasm of thyroid gland
CPT/HCPCS: 82043; 82570; 82947; 99212

== ENCOUNTER 2024-10-22 12:56 | Outpatient (AMB) | payer OTHER, SELFPAY ==
[2024-10-22 12:57] VITALS: BP 128/76; PULSE 102; O2SAT 96; BMI 39.6
--- NOTE | 2024-10-22 12:57 | MHC.OFFVIS ---
Vital Signs 10/22/24 12:57 Height 5 ft 5 in Weight 238 lb 1 oz BMI 39.6 BP 128/76 Blood Pressure Location Lt brachial Position Sitting Pulse 102 H Pulse Source Pulse Oximeter Pulse Oximetry (%) 96 Oxygen Delivery Method Room Air Intake Visit Reasons: DM Intake Note: Patient present today for Type 2 Diabetes Mellitus Last Diabetic eye exam: 08/2023 Last Podiatry Visit: Doesn't have one Random Glucose: 122 mg/dl HgA1C: 6.4% 10/21/24 Sales Project Engineer Required: No Accompanied by: Self / Same As Patient Allergies lisinopril [LISINOPRIL] Allergy (Severe, Verified 10/22/24 13:02) ANGIOEDEMA dapagliflozin [From FARXIGA] Allergy (Intermediate, Verified 10/22/24 13:02) HIVES liraglutide [From VICTOZA] Allergy (Intermediate, Verified 10/22/24 13:02) RASH metformin [METFORMIN] Allergy (Intermediate, Verified 10/22/24 13:02) GI UPSET erythromycin base [ERYTHROMYCIN BASE] Allergy (Unknown, Verified 10/22/24 13:02) UNKNOWN amitriptyline [AMITRIPTYLINE] Adverse Reaction (Intermediate, Verified 10/22/24 13:02) DRUGGED FEELING HPI HPI DM: Details: Patient is a 49 year old with type 2 diabetes, history of multinodular goiter, hypertension, hypothyroidism, mixed hyperlipidemia, history of a PE, 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 Endo: Dm- Initially diagnosed with T2DM in >10 yrs . Her A1c is 6.4. She is currently on Mounjaro 7.5 mg and metformin 1000 mg bid Previous meds:victoza-?rash, farxiga-hives Family history of T2DM in paternal grandmother no one else with diabetes . Has eyes checked yearly Has HLD, on statin. . Denies CAD. Thyroid-s/p right thyroidectomy 02/2024-follicular adenoma-Hurthle cell predominance. On levothyroxine 50 mcg CV: Blood pressure today in the office is 128/76. She is currently on furosemide 20 mg. Compliant with rosuvastatin 10 mg. Last LDL is at goal. On chronic anticoagulation. Nephrology: stable ckd, follows with nephrology [facility] Medical History (Updated 10/22/24 @ 13:16 by Deysi Woodward PA-C) Lymphedema Pleurisy with effusion Pleurisy Pulmonary hypertension Hypercoagulable state Thyroid cancer Chronic thromboembolic disease Lower extremity edema Multinodular thyroid Family history of deep venous thrombosis Pleuritic chest pain Pulmonary emboli Dyspnea Dyspareunia in female Anemia Obstructive sleep apnea Morbid obesity History of COVID-19 (~2020) History of pulmonary embolus (PE) (~2020) Anxiety Chronic headaches Dyspnea on exertion Diabetes type 2, controlled Hypothyroid HTN (hypertension) Hyperlipidemia Surgical History History of angioplasty History of surgery on right wrist History of foot surgery History of tubal ligation History of carpal tunnel surgery History of ERCP History of laparoscopic cholecystectomy History of surgery Family History Father Myocardial infarction COPD (chronic obstructive pulmonary disease) Mother COPD (chronic obstructive pulmonary disease) Brother Colitis Social History Housing: House Alcohol intake: former Comment: pt d/c home Patient Tobacco Use Status: Never used Tobacco service: No Current occupational status: employed 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, 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 Current occupational exposures/hazards: No Physical Exam Vital Signs: Last Vital Signs Pulse 102 H 10/22/24 12:57 BP 128/76 10/22/24 12:57 Pulse Ox 96 10/22/24 12:57 Oxygen Delivery Method Room Air 10/22/24 12:57 BMI result Body Mass Index 39.6 Const Orientation/consciousness: patient oriented x3 HEENT Ears: hearing grossly normal bilaterally Neck Thyroid: Thyroid normal Lymphatic: no lymphadenopathy noted Resp Auscultation: clear to auscultation bilaterally Cardio Rate: regular rate Rhythm: regular rhythm Heart sounds: S1 normal heart sound present and S2 normal heart sound present Skin General skin exam: no rashes or lesions noted Neuro General: patient oriented x3, gait normal and no focal motor deficits Results Reviewed Results Reviewed: Laboratory Tests 01/14/24 10/21/24 08:22 12:15 Sodium 139 Potassium 4.0 D Chloride 109 H Carbon Dioxide 23 Anion Gap 11 L BUN 10 Creatinine 1.06 Estimated GFR 55 Random Glucose 122 H Estimat Average Glucose 137 Hemoglobin A1c % 6.4 H AST 15 ALT 9 Alkaline Phosphatase 82 Triglycerides 246 H Cholesterol 145 LDL Cholesterol, Calc 54 HDL Cholesterol 42 Urine Creatinine 91.65 Assessment & Plan Assessment & Plan (1) T2DM (type 2 diabetes mellitus): Code(s): E11.9 - Type 2 diabetes mellitus without complications Category: Medical Qualifiers: 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 Congratulated her the weight loss. Continue the metformin. Follow up in 3 months. Complete diabetic labs prior. (2) Hyperlipidemia: Code(s): E78.5 - Hyperlipidemia, unspecified Category: Medical Plan: ldl at goal continue crestor We did discuss the elevated triglycerides and she is going to try fish oil. (3) Severe obesity (BMI 35.0-39.9) with comorbidity: Code(s): E66.01 - Morbid (severe) obesity due to excess calories Category: Medical Plan: improving increased mounjaro today Medications: New tirzepatide (Mounjaro) 10 mg (0.5 mL) subcut QWEEK 2 mL 5RF blood-glucose meter (FreeStyle Lite Meter kit) Use daily As directed to check blood sugars 1 ea 0RF E11.65 - Type 2 diabetes mellitus with hyperglycemia Discontinued tirzepatide (Mounjaro) Discontinued Reason: Doctor's Order 7.5 mg (0.5 mL) subcut QWEEK 2 mL 3RF Coding Level of Care Code Est Pt Level 4 (82252) Complex EM visit Add On G2211 Diagnoses Type 2 diabetes mellitus without complication, without long-term current use of insulin E11.9 Diabetes mellitus [facility] insulin use: without [facility] use Diabetes mellitus complication status: without complication Hyperlipidemia E78.5 Severe obesity (BMI 35.0-39.9) with comorbidity E66.01
[2024-10-22 13:08] LABS: Glucose, Whole Blood 122 mg/dL (60-115)
--- OUTSIDE RECORDS SUMMARY | 2024-10-22 13:20 | XMS_ITS | Clinical Summary ---
Author Organization [facility] Address [address] [place] [address] Care Team Providers Care Duralumin Mechanic Name Role Phone Unavailable Primary Care Provider [...] Documents on File Type Date Recorded Patient Certified Addiction Counselor Expl anation Health Care Decision (hx) 10/31/2020 AD MERCEDES DIRECTIVE
--- OUTSIDE RECORDS SUMMARY | 2024-10-22 13:21 | XMS_ITS ---
Author Organization [facility] Address [address] [place] [address] Care Team Providers Care Fingernail Sculpturer Name Role Phone Deena Workman Primary Care Provider UnavailDario Cooper Unavailable [phone] ALLERGIES Allergen (clinical drug ingredient) Drug/Non Drug [...] History of poly p of colon (situation) (837446535) Problem Anticoagulant long-term use (Z79.01) Active confirmed Long-term current use of anticoagulant (070441734) VITAL SIGNS BMI 39.40 kg/m2 10/07/2024 Blood pressure systolic 00 mm Hg 10/07/19 25 Blood pressure diastolic 00 mm Hg 025 Height 65 in 10/07/2024 Weight 236.8 lbs 10/07/2024 Encounters Encounter Location Date Provider Diagnosis [facility] [address] [place] [address] 10/07/2024 Dario Ramsey Irritable bowel syndrome K58.9 [...] Provider Name:Dario Ramsey , 01/17/2025 11:30:00 AM, [address] [place] [address], [id number], Progress Notes * Examination Category Sub-Category Detail [...]
--- OUTSIDE RECORDS SUMMARY | 2024-10-22 13:21 | XMS_ITS | Patient Health Record ---
Author Organization Dario Urbano III, MD Address [address] [place] [address] Care Team Providers Care Microfilm Mounter Name Role Phone Jacinta ANGULO, [facility] Primary Care Provider Dario Slater [phone] Allergies Allergen (clinical drug ingredient) Drug/Non Drug [...] ff Reviewed date:10/08/2024 08:30:57 AM Interpretation: Performing Lab:[facility], [address] [place] [address] Notes/Report: White Blood Count 9.3 4.8-10.8 X10*3/uL [...] te Reviewed date:10/08/2024 08:30:58 AM Interpretation: Performing Lab:[address] [address] Notes/Report: Erythrocyte Sedimentation Rate 23 0-20 MM/HR Patients with polycythemia and many hemoglobin abnormalities may have depressed sed rates whereas patients with anemia may have elevated sed rates. RETIC Reviewed date:10/08/2024 08:30:58 AM Interpretation: Performing Lab:[address] [address] Notes/Report: Reticulocytes Absolute 0.058 0.026-0.095 X10*6/ uL Immature Retic Fraction 20.0 3.0-15.9 % Retic HGB Equivalent 23.7 30.0-35.0 pg Reticulocyte Percent 1.1 0.5-1.8 % Ferritin Reviewed date:10/08/2024 08:30:58 AM Interpretation: Performing Lab:[address] [address] Notes/Report: Ferritin 18 10-250 ng/mL Reason For [...] Problem Status W/U Status Risk Notes Problem 39578216 Dysthymic disorder (F34.1) Active confirmed Her depress ion is mild and I will recommend no change in her current medications. Problem 448097534 Acquired hypothyroidism (E03.9) Active confirmed She has been continued on her current dose of levothyroxine without change. Problem 122409409 Vitamin B 12 deficiency (E53.8) Active confirmed A B12 level is not available at this time. She was continued on current therapy and the value will be followed. Problem Thyroid nodule (462102100) Thyroid nodule (E04.1) Active confirmed This appears to be a Hurthle cell tumor. She has been referred to [facility] for thyroidectomy. This will require cessation of her anticoagulation . Problem 296588274 History of cholecystectomy (Z90.49) Active confirmed Problem 341332405 Thrombophilia (D68.59) Active confirmed She has had no further blood clots or emboli. No change in her regimen was made. Problem 61686084 Iron deficiency anemia, unspecified iron deficiency anemia [...] future. An explanation will be sought. Problem 629131623 Morbid obesity (E66.01) Active confirmed Her body mass index is now 41.We discussed diet and nutrition. I recommended aggressive weight loss. I recommended she consider the weight loss surgery program at [facility]. She has lost 59 pounds since her last visit. Problem 02102318 Adult onset diabetes mellitus with ketoacidosis (E11.10) Active confirmed She has been compliant with her medications, which are prescribed by primary care. Problem 86678814 Post-cholecystec t viji syndrome (K91.5) Active confirmed This is a occasional discomfort. It has not affected her life significantly. No change in her regimen as needed. Problem 87707605 Pulmonary embolism, unspecified chronicity, unspecified pulmonary embolism type, unspecified whether acute cor pulmonale present (I26.99) Active confirmed She was breathing comfortably today and has had no further episodes of dizziness or arterial thromboembolism . She had multiple pulmonary emboli/2022.These have caused dyspnea with exertion and she is undergoing a series of pulmonary artery angioplasties at the [facility] the next of which will be in August2023. Vital Signs Heart Rate 96 /min 09/29/2024 Temperature 97.3 degrees Fahrenheit 09/29/2024 Blood pressure diastolic 92 mm Hg 09/29/2024 Height 64 in 10/13/2024 Blood pressure systolic 118 mm Hg 09/29/2024 Weight 243 lbs 10/13/2024 BMI 41.71 kg/m2 10/13/2024 Encounters Encounter Location Date Provider Diagnosis Dario Urbano III, MD [address] [place] [address] [place] [address] 09/29/2024 Dario Urbano Morbid obesity E66.0 1 ; Thrombophilia D68.59 ; Iron deficiency anemia, unspecified iron deficiency anemia type D50.9 ; Dysthymic disorder F34.1 ; Post-cholecystectomy syndrome K91.5 ; Adult onset diabetes mellitus with ketoacidosis E11.10 ; Vitamin B 12 deficiency E53.8 and Acquired hypothyroidism E03.9 Dario Urbano III, MD [address] [place] [address] [place] [address] 10/13/2024 Dario Urbano Morbid obesity E66.0 1 [...] consider the weight loss surgery program at [facility]. She has lost 59 pounds since [...] consider the weight loss surgery program at [facility]. 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 is her lace paper machine operator was going to put her on thyroid [...] Details Provider Name:Dario Urbano, 02/11/2025 10:15:00 AM, [address] [place] [address] [address], [place], [address], Insurance Providers Payer Name Payer Address Payer Phone Subscriber Number Group Number Insured Name Patient Relationship to Insured Coverage Start Date Coverage End Date [employer] [address] [address] [place] [address] [id number] Domonique Bro Self - patient is the insured MEDICAID [address] [place], [place] [id number] Domonique Bro Self - patient is the insured Medical (General) History Medical History History ICD Code Hyperlipidemia, unspecified hyperlipidem ia type E78.5 Postcholecystectomy syndrome K91.5 Dysmenorrhea N94.6 Morbid obesity E66.01 Dysthymic disorder F34.1 Anemia, unspecified type D64.9 Type 2 diabetes mellitus wit h complication, unspecified whether director long term care insulin use E11.8 G6 carpal tunnel syndrome, [...]
--- OUTSIDE RECORDS SUMMARY | 2024-10-22 13:21 | XMS_ITS ---
Author Organization Dario Urbano III, MD Address [address] [place] [address] Care Team Providers Care Liaison Inspection Laboratory Assistant Name Role Phone Jacinta ANGULO, [facility] Primary Care Provider Dario Slater [phone] Allergies Allergen (clinical drug ingredient) Drug/Non Drug [...] Date Provider Diagnosis Dario Urbano III, MD [address] [place] [address] [place] [address] 10/13/2024 Dario Urbano Morbid obesity E66.0 1 [...] consider the weight loss surgery program at [facility]. She has lost 59 pounds [...] ov Provider Name:Dario Urbano, 02/11/2025 10:15:00 AM, [address] [place] [address] DR, [address], [place], [address], Progress Notes * Domonique SANTILLAN SDOB:1975 (49 yo F)Acc No.[id number]:10/13/2024 Patient:?Domonique SANTILLAN Provider:?Dario Urbano MD :1975???Age:49 Y???Sex:Female D ate:10/13/2024 Address:[address] [place], [place] [address] Pcp:Deena Workman MD Subjective: * Chief Complaints: * ???Vitamin B12 deficiencyIro n deficiency * HPI: ???:?Telehealth?Location of provider rendering services:?{...} [address] [facility] [address] ?Location of patient:?address listed in demographics for [...] Time - 10/07/2024 09:15 AM)?ValueReference Range?Erythrocyte Sedimentation [id number] - MM/HR Assessment: * Assessment: 1.?Iron deficiency [...] consider the weight loss surgery program at [facility]. She has lost 59 pounds [...] Urbano MD Date:?01/2025 Generated for Satish lai/Nettie/eTransmitting on:?10/22/2024 01:21 PM EST History and Physical Notes * HPI (History of Present Illness) Category Sub-Category Detail Notes Telehealth Location of [facility]:: {...} [address] [place] [address] Location of patient:: address listed in demographics for today's visit Patient identification confirmed using:: Name, Telehealth method:: Telephone only. Edbora ent not visible to care provider. Consent:: Patient verbally c onsented to treatment, Patient verbally consented to billing insurance company, Patient informed of any privacy concerns related to method of visit Total time spent with patient (mins): 22
--- OUTSIDE RECORDS SUMMARY | 2024-10-22 13:21 | XMS_ITS ---
Author Organization Dario Urbano III, MD Address [address] [place] [address] Care Team Providers Care Histopath Tech Name Role Phone Jacinta ANGULO, [facility] Primary Care Provider Dario Slater [phone] Allergies Allergen (clinical drug ingredient) Drug/Non Drug [...] Provider Diagnosis Dario Urbano III, MD [address] [place] [address] [place] [address] 09/29/2023 Dario Urbano Morbid obesity E66.0 1 [...] consider the weight loss surgery program at [facility]. She has gained 10 pounds [...] (ICD-10 - E03.9) She says is her capsule filling machine operator was going to put her [...] V Provider Name:Dario Urbano, 02/11/2025 10:15:00 AM, [address] [place] [address] [address] [place] [place] [address], [place], [address], Progress Notes * Domonique SANTILLAN SDOB:1975 (48 yo F)Acc No.[id number]:09/29/2023 Progress Notes Patient:?Santillan, Domonique S Provider:?Dario Urbano MD :1975???Age:48 Y???Sex:Female D ate:09/29/2023 Address:[address] [place] [address] [id number] Pcp:Deena Workman MD Subjective: * Chief Complaints: [...] consider the weight loss surgery program at [facility]. She has gained 10 pounds [...] hypothyroidism - E03.9, She says is her capsule filling machine operator was going to put her [...] Urbano MD Date:?09/09 Generated for Printi ng/Nettie/eTransmitting on:?10/22/2024 01:20 PM EST History and Physical Notes * HPI (History of Present Illness) Category Sub-Category Detail Notes COVID-19 Screening Questions Have you had any new onset fever, chills, cough, congestion, sore throat, shortness of breath, muscle aches?: No Have you been exposed to the virus withi n the last 10 days?: No Have you travelled internationally in [facility] last 10 days?: No Have [...]
--- OUTSIDE RECORDS SUMMARY | 2024-10-22 13:21 | XMS_ITS ---
Author Organization [facility] Address [address] [place] [address] Care Team Providers Care Customer Services Coordinator Name Role Phone Deena Workman Primary Care Provider Unavailab Dario Holbrook Unavailable [phone] REASON FOR VISIT PAT appt Encounters Encounter Location Date Provider Diagnosis [facility] [address] [place] [address] 10/08/2024 Dario Ramsey PLAN OF TREATMENT Next Appt Details Provider Name:Dario Ramsey , 01/17/2025 11:30:00 AM, [address] , [place], [place], [id number],
--- OUTSIDE RECORDS SUMMARY | 2024-10-22 13:21 | XMS_ITS | Patient Health Record ---
Author Organization [facility] Address [address] [place] [address] Care Team Providers Care Grocery Cashier Name Role Phone Deena Workman Primary Care Provider Unavailab Dario Holbrook Unavailable [phone] ALLERGIES Allergen (clinical drug ingredient) Drug/Non Drug [...] (K58.9) Active confirmed Irritable b owel syndrome (04852620) Problem Colon cancer screening (Z12.11) Active confirmed Colon cancer screening (455022385) Problem Microcytic anemia (D50.9) Active confirmed Microcytic anem ia (022493157) Problem Diverticulosis of colon (K57.30) Active confirmed Diverticulosi s of colon (037041184) Problem Personal history of colonic polyps (Z86.010) Active confirmed History of poly p of colon (situation) (078912320) Problem Anticoagulant long-term use (Z79.01) Active confirmed Long-term curre nt use of anticoagulant (825973928) VITAL SIGNS Blood pressure diastolic 00 mm Hg 10/07/2024 Height 65 in 10/07/2024 Blood pressure systolic 00 mm Hg 10/07/2024 Weight 236.8 lbs 10/07/2024 BMI 39.40 kg/m2 10/07/2024 Encounters Encounter Location Date Provider Diagnosis [facility] [address] [place] [address] 10/07/2024 Dario Ramsey Irritable bowel syndrome K58.9 ; Colon cancer screening Z12.11 ; Personal history of colonic polyps Z86.010 and Anticoagulant long-term use Z79.01 [facility] [address] [place] [address] 10/08/2024 Dario Ramsey ASSESSMENTS Encounter Date Diagnosis [...] Name:Dario Ramsey , 01/17/2025 11:30:00 AM, [address] , [place], [place], [phone], Insurance Providers Payer Name Payer Address Payer Phone Subscriber Number Group Number Insured Name Patient Relationship to Insured Coverage Start Date Coverage End Date [facility] [address] [address] [place], [place] [id number] KASANDRA SANTILLAN Self - patient is the insured MEDICAID OF [facility] [address] [place] [address] [id number] KASANDRA SANTILLAN Self - patient is the insured MEDICAL (GENERAL) HISTORY Medical History History ICD Code ERCP with sphincterotomy 10-30-2001 Pulmonary emboli with COVID 10/2020-she describes a two-week hospitalization although did not require intubation. She describes having been left with some respiratory issues for which she is seeing Dr. Land. She also describes some residual brain fog Arthritis Denies AL,CVA NIDDM Anemia from heavy menses--she sees Dr. [...] [place] of [place] [facility] [place] History Surgery Date(Month/Year) CCY 2001 BTL 2002 Bilateral carpal tunnel 2017 Right foot 2000 Right wrist 2021 Partial thyroidectomy for a cancer 2023
--- OUTSIDE RECORDS SUMMARY | 2024-10-22 13:21 | XMS_ITS ---
Author Organization Dario Urbano III, MD Address [address] [place] [address] Care Team Providers Care Geotechnical Intern Name Role Phone Jacinta ANGULO, [facility] Primary Care Provider Dario Slater Unavailable [phone] Allergies Allergen (clinical drug ingredient) Drug/Non Drug [...] Provider Diagnosis Dario Urbano III, MD [address] [place] [address] [place] [address] 09/29/2024 Dario Urbano Morbid obesity E66.0 1 [...] consider the weight loss surgery program at [facility]. She has lost 59 pounds since her [...] (ICD-10 - E03.9) She says is her nut blanker operator was going to put her on [...] Telehealth Provider Name:Dario Urbano, 02/11/2025 10:15:00 AM, [address] [place] [address] [place], [place], [address], Progress Notes * Domonqiue SANTILLAN SDOB:1975 (49 yo F)Acc No.[id number]:09/29/2024 Progress Notes Patient:?Domonique SANTILLAN S Provider:?Dario Urbano MD :1975???Age:49 Y???Sex:Female D ate:09/29/2024 Address:[address] [place], [place] [address]-[id number] Pcp:Deena Workman MD Subjective: * Chief Complaints: [...] consider the weight loss surgery program at [facility]. She has lost 59 pounds since her [...] hypothyroidism - E03.9???Notes :She says is her nut blanker operator was going to put her on [...] Provider:?Dario Urbano MD Date:?09/09 Generated for Satish lai/Nettie/eTmartínezsmitting on:?10/22/2024 01:20 PM EST History and Physical [...]
== END 2024-10-22 13:26 | disposition home or self-care (01) ==
PROVIDERS: PCP Internal Medicine; Visit Provider Physician Assistant
DX: E11.9 Type 2 diabetes mellitus without complications (principal); E78.5 Hyperlipidemia, unspecified; E66.01 Morbid (severe) obesity due to excess calories

== ENCOUNTER 2024-11-01 09:18 | Outpatient (AMB) | payer OTHER, SELFPAY ==
[2024-11-01 09:33] LABS: Prothrombin Time Whole Bld POC 32.6 sec (11.1-13.5); ~PT, ~INR - Anti Coag Clinic 2.7 (0.9-1.1)
--- NOTE | 2024-11-01 09:42 | MHC.OFFVISCO ---
Intake Intake Visit Reasons: Anticoagulation Allergies lisinopril [LISINOPRIL] Allergy (Severe, Verified 11/01/24 09:25) ANGIOEDEMA dapagliflozin [From FARXIGA] Allergy (Intermediate, Verified 11/01/24 09:25) HIVES liraglutide [From VICTOZA] Allergy (Intermediate, Verified 11/01/24 09:25) RASH metformin [METFORMIN] Allergy (Intermediate, Verified 11/01/24 09:25) GI UPSET erythromycin base [ERYTHROMYCIN BASE] Allergy (Unknown, Verified 11/01/24 09:25) UNKNOWN amitriptyline [AMITRIPTYLINE] Adverse Reaction (Intermediate, Verified 11/01/24 09:25) DRUGGED FEELING Medication List - Last Reconciled 11/01/24 by Francine Mitchell RN acetaminophen ER 650 mg PO Q6H PRN albuterol sulfate 2.5 mg inhalation Q4H PRN albuterol sulfate 90 mcg/actuation (Ventolin HFA) 2 puffs inhalation Q6H PRN blood sugar diagnostic (FreeStyle Lite Strips) As directed blood-glucose meter (FreeStyle Lite Meter kit) Use daily As directed to check blood sugars compress.stocking,knee,reg,med 15-20 cm dextromethorphan-guaifenesin 60-1,200 mg ER (Mucinex DM) 1 tab PO Q12H 14 days enoxaparin (Lovenox) 100 mg See Protocol subcut Q12H 5 days ferrous gluconate 324 mg PO DAILY levothyroxine 50 mcg PO DAILY metformin 1,000 mg PO BID methylprednisolone (Medrol (Gene)) PO PER PKG DIR 6 days nebulizers As directed Oxygen Home Use As directed rosuvastatin 10 mg PO BEDTIME sertraline 100 mg PO DAILY sildenafil (pulm.hypertension) 20 mg PO TID 30 days tirzepatide (Mounjaro) 10 mg (0.5 mL) subcut QWEEK warfarin 5 mg See Protocol PO DAILY 30 days Nursing Note INR: 2.7 in therapeutic range of 2-3 Pt states she is having 1 tooth removed on Fri11/03/24 No instructions from dentist to hold warfarin. Instructed pt to call dentist to report today's INR and inform him of decrease in dose tomorrow from 5mg to 2.5mg to get INR closer to lower part of range. Pt will also verify if hold is needed. Medications and supplements reviewed No changes in health, diet, medications, or supplements, Denies any signs and symptoms of bleeding or bruising or clotting. Bleeding, bruising, clotting discussed Nutritional guidance given Dose: decrease tomorrow's dose from 5mg to 2.5mg then take that 5mg on Fri11/05/24 (usually 2.5mg) all other days are usual dose of 2.5mg. F/U INR: 1 week Patient verbalizes understanding of instructions given Anti-Coag Initial Assessment Social Hx Patient Tobacco Use Status: Never used Tobacco alcohol intake: former Alcohol intake frequency: does not drink Cardiovascular Hx: HTN Lung Disease HX: DVT/PE Endocrine Hx: Thyroid Disease Musculoskeletal Hx: Arthritis Blood Disorder Hx: Anemia and Hyperlipidemia GI Hx: Ulcers, Diverticulosis and Hemorrhoids Hx: Other Neurological Hx: Migraines/Headaches and Other Cancer HX: No Psych. Illness/Depression: Yes Coding Level of Care Code Est Patient Level 1 Diagnoses Current use of anticoagulant therapy Z79.01 Assessment & Plan Assessment & Plan (1) Current use of anticoagulant therapy: Code(s): Z79.01 - meterman (current) use of anticoagulants Category: Medical
--- OUTSIDE RECORDS SUMMARY | 2024-11-01 09:57 | XMS_ITS | Clinical Summary ---
Author Organization [facility] it Address [address] [place] [address] Care Team Providers Care Budget Director Name Role Phone Unavailable Primary Care Provider [...] 5 season) 2024 Influenza Vaccine (#1) 2024 Pneumococcal Vaccine: 50+ Ye ars (1 of 1 - PCV) 2024 Zoster Vaccines (1 of 2) 2024 [...] patient's age to complete this topic Meningococcal B Vacine Aged Out No lo nger eligible based on patient's age to complete [...] Documents on File Type Date Recorded Patient Fuel Conversion Technician Expl anation Health Care Decision (hx) 10/31/2020 AD MERCEDES DIRECTIVE
--- OUTSIDE RECORDS SUMMARY | 2024-11-01 09:57 | XMS_ITS | Patient Health Record ---
Author Organization [facility] Address [address] [place] [address] Care Team Providers Care Buck Swamper Name Role Phone Deena Workman Primary Care Provider Unavailab Dario Holbrook Unavailable [phone] ALLERGIES Allergen (clinical drug ingredient) Drug/Non Drug [...] W/U Status Risk SNOMED Code Notes Problem Colon cancer screening (Z12.11) Active confirmed Colon cancer screening (112892505) Problem Irritable bowel syndrome (K58.9) Active confirmed Irritable b owel syndrome (48149262) Problem Personal history of colonic polyps (Z86.010) Active confirmed History of poly p of colon (situation) (436534065) Problem Microcytic anemia (D50.9) Active confirmed Microcytic anem ia (844712051) Problem Anticoagulant long-term use (Z79.01) Active confirmed Long-term curre nt use of anticoagulant (393841841) Problem Diverticulosis of colon (K57.30) Active confirmed Diverticulosi s of colon (296871593) VITAL SIGNS Blood pressure diastolic 00 mm Hg 10/07/2024 Height 65 in 10/07/2024 Blood pressure systolic 00 mm Hg 10/07/2024 Weight 236.8 lbs 10/07/2024 BMI 39.40 kg/m2 10/07/2024 Encounters Encounter Location Date Provider Diagnosis [facility] [address] [place] [address] 10/07/2024 Dario Ramsey Irritable bowel syndrome K58.9 ; Colon cancer screening Z12.11 ; Personal history of colonic polyps Z86.010 and Anticoagulant long-term use Z79.01 [facility] [address] [place] [phone] 10/08/2024 Dario Ramsey ASSESSMENTS Encounter Date Diagnosis [...] Name:Dario Ramsey , 01/17/2025 11:30:00 AM, [address] [facility] , [place], [place], [id number], Insurance Providers Payer Name Payer Address Payer Phone Subscriber Number Group Number Insured Name Patient Relationship to Insured Coverage Start Date Coverage End Date [facility] [address] [address] [place], [place] [id number] KASANDRA SANTILLAN Self - patient is the insured MEDICAID OF [facility] [address] [place] [address] [id number] KASANDRA SANTILLAN Self - patient is the insured MEDICAL (GENERAL) HISTORY Medical History History ICD Code ERCP with sphincterotomy 10-30-2001 Pulmonary emboli with COVID 10/2020-she describes a two-week hospitalization although did not require intubation. She describes having been left with some respiratory issues for which she is seeing Dr. Land. She also describes some residual brain fog Arthritis Denies [place],CVA NIDDM Anemia from heavy menses--she sees Dr. [...] for removal of pulmo nary clots at [facility] Surgical History Surgery Date(Month/Year) CCY 2001 BTL 2002 Bilateral carpal tunnel 2017 Right foot 2000 Right wrist 2021 Partial thyroidectomy for a cancer 2023
== END 2024-11-01 09:47 | disposition home or self-care (01) ==
LOC: HO.ACS 09:18
PROVIDERS: PCP Internal Medicine; Visit Provider Internal Medicine
DX: Z79.01 Long term (current) use of anticoagulants (principal)

== ENCOUNTER → 2024-11-01 09:18 | Outpatient (BNVA) | payer OTHER, SELFPAY | PROVIDERS: PCP Internal Medicine; Visit Provider Internal Medicine | DX: E11.22 Type 2 diabetes mellitus with diabetic chronic kidney disease (principal); N18.9 Chronic kidney disease, unspecified; I27.20 Pulmonary hypertension, unspecified; C73 Malignant neoplasm of thyroid gland; D69.6 Thrombocytopenia, unspecified; I26.99 Other pulmonary embolism without acute cor pulmonale; Z79.01 Long term (current) use of anticoagulants; Z51.81 Encounter for therapeutic drug level monitoring | CPT/HCPCS: 85610; 99211; 99212 ==

== ENCOUNTER 2024-11-01 09:47 | Outpatient (AMB) | payer OTHER, SELFPAY ==
[2024-11-01 09:53] VITALS: BP 132/82; PULSE 91; O2SAT 97; BMI 40.3
--- NOTE | 2024-11-01 09:53 | HO.NEPHOV ---
Vital Signs 11/01/24 09:53 Height 5 ft 5 in Weight 242 lb BMI 40.3 BP 132/82 Blood Pressure Location Lt radial Position Sitting Pulse 91 Pulse Source Pulse Oximeter Pulse Oximetry (%) 97 Oxygen Delivery Method Room Air Intake Visit Reasons: CKD Night Order Selector Required: No Accompanied by: Self / Same As Patient Allergies lisinopril [LISINOPRIL] Allergy (Severe, Verified 11/01/24 09:54) ANGIOEDEMA dapagliflozin [From FARXIGA] Allergy (Intermediate, Verified 11/01/24 09:54) HIVES liraglutide [From VICTOZA] Allergy (Intermediate, Verified 11/01/24 09:54) RASH metformin [METFORMIN] Allergy (Intermediate, Verified 11/01/24 09:54) GI UPSET erythromycin base [ERYTHROMYCIN BASE] Allergy (Unknown, Verified 11/01/24 09:54) UNKNOWN amitriptyline [AMITRIPTYLINE] Adverse Reaction (Intermediate, Verified 11/01/24 09:54) DRUGGED FEELING Medication List - Last Reconciled 11/01/24 by Franklyn Skinner MD acetaminophen ER 650 mg PO Q6H PRN albuterol sulfate 2.5 mg inhalation Q4H PRN albuterol sulfate 90 mcg/actuation (Ventolin HFA) 2 puffs inhalation Q6H PRN blood sugar diagnostic (FreeStyle Lite Strips) As directed blood-glucose meter (FreeStyle Lite Meter kit) Use daily As directed to check blood sugars compress.stocking,knee,reg,med 15-20 cm dextromethorphan-guaifenesin 60-1,200 mg ER (Mucinex DM) 1 tab PO Q12H 14 days enoxaparin (Lovenox) 100 mg See Protocol subcut Q12H 5 days ferrous gluconate 324 mg PO DAILY levothyroxine 50 mcg PO DAILY metformin 1,000 mg PO BID methylprednisolone (Medrol (Gene)) PO PER PKG DIR 6 days nebulizers As directed Oxygen Home Use As directed rosuvastatin 10 mg PO BEDTIME sertraline 100 mg PO DAILY sildenafil (pulm.hypertension) 20 mg PO TID 30 days tirzepatide (Mounjaro) 10 mg (0.5 mL) subcut QWEEK warfarin 5 mg See Protocol PO DAILY 30 days HPI Comments Details: Domonique is a pleasant 48-year-old woman with a history of diabetes mellitus and hypertension with mild CKD. Baseline serum creatinine is around 1.1 mg/dL with EGFR of about 50-60 mL/minute. He recently there has been a bump in the serum creatinine and as of December 2023 creatinine was 1.7 with EGFR of 30 mL/minute and she has been referred for further evaluation. In June 2023 and prior to that she had no significant microalbuminuria. Previous urinalysis was benign. She has had no imaging studies for the kidney She has a complicated history including COVID-19 infection in October of 2020 which was complicated by pulmonary embolism. She has undergone angioplasty at [facility]. She is on anticoagulation. She is being followed by Dr. Land from [facility]. She has been diagnosed with factor 5 laden deficiency She has chronic anemia. She is on iron supplementation but there has been no significant improvement in hemoglobin. She has microcytic picture Upon reviewing the labs she has had thrombocytopenia since April 2023 and the recent platelet count is [id number]. Domonique has no hemoptysis. No chest pain. No gross hematuria. No edema. No new rash or petechia. No joint pains. No nausea vomiting no diarrhea constipation no weight loss. Mother at age of 61 and she had kidney disease. She has 3 brothers no family history of any connective tissue disease or end stage renal disease She has 1 daughter age 22 and normal delivery. 01/15/24; She was in the ER last night for pharyngitis. From renal standpoint she is doing very well. She was found to have iron deficiency 02/04; Cr is down to 1.4; close to baseline; Off Valsartan HCT 05/07/24; Doing well. Seen by Rheum- work up in progress;Off Valsartan HCT since January 2024 ;Had CoVID in March 2024; still has some cough 11/01/24: Here for 6 month follow up. No urinary complaints. c/o Right flank pain. [facility] Medical History (Updated 10/22/24 @ 13:16 by Deysi Woodward PA-C) Lymphedema Pleurisy with effusion Pleurisy Pulmonary hypertension Hypercoagulable state Thyroid cancer Chronic thromboembolic disease Lower extremity edema Multinodular thyroid Family history of deep venous thrombosis Pleuritic chest pain Pulmonary emboli Dyspnea Dyspareunia in female Anemia Obstructive sleep apnea Morbid obesity History of COVID-19 (~2020) History of pulmonary embolus (PE) (~2020) Anxiety Chronic headaches Dyspnea on exertion Diabetes type 2, controlled Hypothyroid HTN (hypertension) Hyperlipidemia Surgical History History of angioplasty History of surgery on right wrist History of foot surgery History of tubal ligation History of carpal tunnel surgery History of ERCP History of laparoscopic cholecystectomy History of surgery Family History Father Myocardial infarction COPD (chronic obstructive pulmonary disease) Mother COPD (chronic obstructive pulmonary disease) Brother Colitis Social History Housing: House Alcohol intake: former Comment: pt d/c home Patient Tobacco Use Status: Never used Tobacco service: No Current occupational status: employed 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 Lungs entry equal no rales. Heart S1-S2 heard no gallop or rub. Abdomen soft nontender. Neuro alert awake oriented. No asterixis. Extremities no edema. Results Reviewed Nephrology Results: Hgb 10.5 g/dl (12.0-16.0) L 10/21/24 WBC 7.7 X10*3/uL (4.8-10.8) 10/21/24 Plt Count 160 X10*3/uL (160-400) 10/21/24 Sodium 139 mmol/L (135-145) 10/21/24 Potassium 4.0 mmol/L (3.3-5.1) 10/21/24 Chloride 109 mmol/L (96-108) H 10/21/24 Carbon Dioxide 23 mmol/L (22-29) 10/21/24 BUN 10 mg/dL (9-16) 10/21/24 Creatinine 1.06 mg/dL (0.5-1.4) 10/21/24 Calcium 9.3 mg/dL (8.4-10.2) 10/21/24 Urine Creatinine 157.96 mg/dL 10/22/24 Assessment & Plan Assessment & Plan (1) CKD (chronic kidney disease): Code(s): N18.9 - Chronic kidney disease, unspecified Category: Medical (2) Pulmonary hypertension: Code(s): I27.20 - Pulmonary hypertension, unspecified Category: Medical (3) T2DM (type 2 diabetes mellitus): Code(s): E11.9 - Type 2 diabetes mellitus without complications Category: Medical Qualifiers: Diabetes mellitus complication status: without complication Diabetes mellitus care home insulin use: without care home use Qualified Code(s): E11.9 - Type 2 diabetes mellitus without complications (4) Thyroid cancer: Code(s): C73 - Malignant neoplasm of thyroid gland Category: Medical (5) Thrombocytopenia: Code(s): D69.6 - Thrombocytopenia, unspecified Category: Medical Plan 48-year-old woman with a history of diabetes mellitus has acute kidney injury superimposed on chronic kidney disease. Underlying chronic kidney disease may be due to longstanding diabetes mellitus in a setting obesity and hypertension. The differential diagnosis for acute kidney injury is rather extensive. blood pressure was rather low and she was on a high dose of ARB and diuretic. She had component of hypoperfusion leading to LEXUS. After stopping Valsartan HCT, Cr has improved! Obstructive uropathy ruled out based on renal ultrasound Underlying glomerulonephritis and interstitial disease seem less likely based on bland urine She has unexplained thrombocytopenia. Recommendations Continue to hold valsartan hydrochlorothiazide for now. Encouraged to continue avoiding NSAIDs and other nephrotoxins. Maintain adequate intake Urine sediments benign No evidence of AGN or AIN ANANDA positive DsANA negative C3/c4 low ANCA negative No MCGP Follow up with Rheumatology Blood pressure is acceptable Watch BP ; Low salt diet She has significant iron deficiency. Keep on Iron QD Orders: Orders Basic Metabolic Panel 6 Months N18.9 - Chronic kidney disease, unspecified Total Protein Urine Random 6 Months N18.9 - Chronic kidney disease, unspecified UA and rflx microscopic 6 Months N18.9 - Chronic kidney disease, unspecified Creatinine Urine 6 Months N18.9 - Chronic kidney disease, unspecified Coding Level of Care Code Est Pt Level 4 (21989) Diagnoses CKD (chronic kidney disease) N18.9 Pulmonary hypertension I27.20 Type 2 diabetes mellitus without complication, without long-term current use of insulin E11.9 Diabetes mellitus complication status: without complication Diabetes mellitus terminal press operator insulin use: without care home use Thyroid cancer C73 Thrombocytopenia D69.6
--- OUTSIDE RECORDS SUMMARY | 2024-11-01 10:43 | XMS_ITS | Clinical Summary ---
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
== END 2024-11-01 10:07 | disposition home or self-care (01) ==
PROVIDERS: PCP Internal Medicine; Visit Provider Internal Medicine Hypertension Specialist
DX: N18.9 Chronic kidney disease, unspecified (principal); I27.20 Pulmonary hypertension, unspecified; E11.9 Type 2 diabetes mellitus without complications; C73 Malignant neoplasm of thyroid gland; D69.6 Thrombocytopenia, unspecified
CPT/HCPCS: 99214

== ENCOUNTER 2024-11-15 08:19 | Outpatient (AMB) | payer OTHER, SELFPAY ==
--- OUTSIDE RECORDS SUMMARY | 2024-11-15 08:26 | XMS_ITS | Clinical Summary ---
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
--- OUTSIDE RECORDS SUMMARY | 2024-11-15 08:26 | XMS_ITS ---
Author Organization [facility] Address [address] [place] [address] Care Team Providers Care Appeals Specialist Name Role Phone Deena Workman Primary Care Provider UnavailDario Cooper Unavailable [phone] Allergies Allergen (clinical drug ingredient) Drug/Non Drug Allergy documented on EMR Reaction Allergy Type Onset Date Status lisinopril Lisinopril Unknown Drug Allergy Activ e amitriptyline Amitriptyline Unknown Drug Allergy Active Farxiga Unknown Drug Allergy Active metFORMIN HCl ER Unknown Drug Allergy Active Victoza Unknown Drug Allergy Active Erythromycin Unknown Drug Allergy Acti ve REASON FOR VISIT Patient presents today for a recall colonoscopy Medications Medication SIG (Take, Route, Frequency, Duration) [...] orally twice a day Active Albuterol Active Social History Tobacco Use: Social History Observation Description Date Details (start date - stop date) Never Smoker NA - NA Tobacco Use/Smoking Question Answer Notes Patient is a nonsmoker Alcohol Screen Question Answer Notes Did you have a drink containing alcohol in the p ast year? No Points 0 Interpretation Negative Section Notes: Nonsmoker, no sig alcohol Problems Problem Type SNOMED Code ICD Code Onset Dates Problem Status W/U Status Risk Notes Problem History of polyp of colon (situation) (784776401) Personal history of colonic polyps (Z86.010) Active confirmed Problem Long-term current use of anticoagulant (256306595) Anticoagulant long-term use (Z79.01) Active confirmed Vital Signs Blood pressure systolic 00 mm Hg 10/07/19 25 Blood pressure diastolic 00 mm Hg 025 Height 65 in 10/07/2024 Weight 236.8 lbs 10/07/2024 BMI 39.40 kg/m2 10/07/2024 Encounters Encounter Location Date Provider Diagnosis [facility] [address] [place] [address] 10/07/2024 Dario Ramsey Irritable bowel syndrome K58.9 ; Colon cancer screening Z12.11 ; Personal history of colonic polyps Z86.010 and Anticoagulant long-term use Z79.01 Assessments Encounter Date Diagnosis (ICD Code) Assessment Notes Treatment Notes Treatment Clinical Notes Section Notes 10/07/2024 Irritable bowel syndrome (ICD-10 - K58.9) Overall, Domonique appears well from a GI standpoint. She clearly has some underlying pulmonary disease but this seems to be stable at the present time and is being followed closely by Dr. Land. Given her relatively young age and significant polyp removed in 2021, I did recommend a followup colonoscopy for screening purposes assuming she is cleared for the procedure and anesthesia by Dr. Land. We did review the rationale for the colonoscopy in regard to colorectal cancer prevention. Full consent is obtained for this including risks of bleeding and perforation. The procedure will be done with monitored anesthesia care and she'll be scheduled for a PAT appointment prior to the procedure as well. In regard to her intermittent diarrhea we did review what seems to be consistent with her chronic irritable bowel syndrome and the negative workup back in 2021. We did discuss that at some point if the diarrhea continues to be problematic she should speak with you regarding the potential to stop her metformin and use a different diabetes medication in the event the metformin is contributing to her loose bowel movements. I also mentioned that at some point we could give her a trial of cholestyramine to treat any component of a bile-induced diarrhea in relation to her previous cholecystectomy . She has been given the below list of instructions regarding adjustment of some of her medications for the procedure. Domonique was comfortable with this plan. Thank you again for allowing me to participate in Domonique's care. I shall continue to keep you advised of her progress. 10/07/2024 Colon cancer screening (ICD-10 - Z12.11) [...] Dr. Land for the Anesthesia and Colonoscopy Overall, Domonique appears well from a GI standpoint. She clearly has some underlying pulmonary disease but this seems to be stable at the present time and is being followed closely by Dr. Land. Given her relatively young age and significant polyp removed in 2021, I did recommend a followup colonoscopy for screening purposes assuming she is cleared for the procedure and anesthesia by Dr. Land. We did review the rationale for the colonoscopy in regard to colorectal cancer prevention. Full consent is obtained for this including risks of bleeding and perforation. The procedure will be done with monitored anesthesia care and she'll be scheduled for a PAT appointment prior to the procedure as well. In regard to her intermittent diarrhea we did review what seems to be consistent with her chronic irritable bowel syndrome and the negative workup back in 2021. We did discuss that at some point if the diarrhea continues to be problematic she should speak with you regarding the potential to stop her metformin and use a different diabetes medication in the event the metformin is contributing to her loose bowel movements. I also mentioned that at some point we could give her a trial of cholestyramine to treat any component of a bile-induced diarrhea in relation to her previous cholecystectomy . She has been given the below list of instructions regarding adjustment of some of her medications for the procedure. Domonique was comfortable with this plan. Thank you again for allowing me to participate in Domonique's care. I shall continue to keep you advised of her progress. 10/07/2024 Personal history of colonic polyps (ICD-10 - Z86.010) Overall, Domonique appears well from a GI standpoint. She clearly has some underlying pulmonary disease but this seems to be stable at the present time and is being followed closely by Dr. Land. Given her relatively young age and significant polyp removed in 2021, I did recommend a followup colonoscopy for screening purposes assuming she is cleared for the procedure and anesthesia by Dr. Land. We did review the rationale for the colonoscopy in regard to colorectal cancer prevention. Full consent is obtained for this including risks of bleeding and perforation. The procedure will be done with monitored anesthesia care and she'll be scheduled for a PAT appointment prior to the procedure as well. In regard to her intermittent diarrhea we did review what seems to be consistent with her chronic irritable bowel syndrome and the negative workup back in 2021. We did discuss that at some point if the diarrhea continues to be problematic she should speak with you regarding the potential to stop her metformin and use a different diabetes medication in the event the metformin is contributing to her loose bowel movements. I also mentioned that at some point we could give her a trial of cholestyramine to treat any component of a bile-induced diarrhea in relation to her previous cholecystectomy . She has been given the below list of instructions regarding adjustment of some of her medications for the procedure. Domonique was comfortable with this plan. Thank you again for allowing me to participate in Domonique's care. I shall continue to keep you advised of her progress. 10/07/2024 Anticoagulant long-term use (ICD-10 - Z79.01) Overall, Domonique appears well from a GI standpoint. She clearly has some underlying pulmonary disease but this seems to be stable at the present time and is being followed closely by Dr. Land. Given her relatively young age and significant polyp removed in 2021, I did recommend a followup colonoscopy for screening purposes assuming she is cleared for the procedure and anesthesia by Dr. Land. We did review the rationale for the colonoscopy in regard to colorectal cancer prevention. Full consent is obtained for this including risks of bleeding and perforation. The procedure will be done with monitored anesthesia care and she'll be scheduled for a PAT appointment prior to the procedure as well. In regard to her intermittent diarrhea we did review what seems to be consistent with her chronic irritable bowel syndrome and the negative workup back in 2021. We did discuss that at some point if the diarrhea continues to be problematic she should speak with you regarding the potential to stop her metformin and use a different diabetes medication in the event the metformin is contributing to her loose bowel movements. I also mentioned that at some point we could give her a trial of cholestyramine to treat any component of a bile-induced diarrhea in relation to her previous cholecystectomy . She has been given the below list of instructions regarding adjustment of some of her medications for the procedure. Domonique was comfortable with this plan. Thank you again for allowing me to participate in Domonique's care. I shall continue to keep you advised of her progress. Plan Of Treatment Treatment Notes Assessment Notes Colon cancer screening [...] Provider Name:Dario Ramsey , 01/17/2025 11:30:00 AM, [address] [place] [address], [phone], Progress Notes * DOMONIQUE SANTILLANDOB:1975 (4 0 yo F)Acc No.[id number]:10/07/2024 Progress Notes Patient:?DOMONIQUE SANTILLAN Provider:?Dario Ramsey MD :1975???Age:49 Y???Sex:Female D ate:10/07/2024 Address:[address] [place], [place] [id number] Pcp:Deena Workman Subjective: * Chief Complaints: * ???Patient presents today fo r a recall colonoscopy * HPI: ???incontinence:? I saw Domonique in followup today regarding further evaluation of her underlying irritable bowel syndrome with associated loose stools, her previous history of a tubular adenoma of the colon, and discussion of colorectal cancer screening. ?I last saw Domonique in August of 2022 at which time she underwent a colonoscopy for both screening purposes and for evaluation of her chronic irritable bowel syndrome with associated diarrhea. The exam was negative for any inflammatory bowel disease or microscopic colitis. However, she did have a sizable approximately 1.5 cm tubular adenoma removed from the rectum. Previous laboratories had also been negative for celiac disease. She does have a history of microcytic anemia but This was felt to be in relation to her heavy menses. ?She describes that she presently feels well from a GI standpoint. She reports that her bowel movements do remain somewhat irregular with loose stools. However, there's been no signs of hematochezia nor melena. She enjoys a good appetite and denies any significant heartburn or dysphagia. She denies any particular abdominal pains, jaundice, nor unintentional weight loss. She denies any known family history of colon cancer, inflammatory bowel disease, nor celiac disease. ?She has had some worsening of her pulmonary condition due to recurrent pulmonary emboli requiring the use of Coumadin rather than her previous Eliquis. She also had to undergo a catheterization for pulmonary angiography for removal of pulmonary emboli at [facility]. She describes that she is followed closely by Dr. Land for this. She is currently using supplemental oxygen intermittently throughout the day and night, although not on a 24/7 schedule. ?She does remain on iron supplements for previous anemia as well. ?Laboratories earlier this month revealed a hemoglobin of 10.4 with MCV of 68, as well as normal LFTs. * ROS:?General/Constitutional:?Change in appetite?denies.?Chills?denies.?Fatigue?denies.?Ophthalmologic:?Comments?all negative.?ENT:?Comments?all negative.?Respiratory:?hemoptysis?denies.?Cough?denies.?Cardiovascular:?Chest pain?denies.?Orthopnea?denies.?Gastrointestinal:?Comments?See HPI for details.?Genitourinary:?Hematuria?denies.?Dysuria?denies.?Musculoskeletal:?Painful joints?denies.?Weakness?denies.?Skin:?Itching?denies.?Rash?denies.?Neurologic:?Headache?denies.?Seizures?denies.?Psychiatric:?Comments?all negative.? * Medical History:? * Surgical History:?CCY 2002BT L 2002Bilateral carpal tunnel 2017 Right foot 2000Right wrist artial thyroidectomy for a cancer 2023 * Hospitalization/Major Diagno stic Procedure:?No Hospitalization History. * Family History:?Father: dece ased, diagnosed with HTN (hypertension), Heart disease.?Mother: , diagnosed with Heart disease, HTN (hypertension).? No family history of colon cancer, IBD, nor celiac disease. * Social History:?Tobacco Use:?Tobacco Use/Smoking?Patient is a?nonsmoker.?Drugs/Alcohol:?Alcohol Screen?Did you have a drink containing alcohol in the past year??No,?Points?0,?Interpretation?Negative.?Miscellaneous:?Marital status: . 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 ???Nonsmoker, no sig alcohol. * Medications:?TakingAlbuterol metFORMIN HCl ER 500 MG Tablet Extended Release 24 Hour 2 tablet with evening meal orally twice a dayWarfarin Sodium 5 MG Tablet 1 tablet Orally Once a dayIron (Ferrous Sulfate) 325 (65 Fe) MG Tablet 1 tablet Orally Once a dayLevothyroxine Sodium 50 MCG Tablet 1 tablet in the morning on an empty stomach Orally Once a dayMounjaro 7.5 MG/0.5ML Solution Auto-injector INJECT 7.5 MG (0.5 ML) SUBCUTANEOUSLY EVERY WEEK Subcutaneous Sildenafil Citrate 20 MG Tablet Oral Rosuvastatin Calcium 10 MG Tablet 1 tablet Orally Once a daySertraline HCl 100 MG Tablet Oral Taking Albuterol Taking metFORMIN HCl ER 500 MG Tablet Extended Release 24 Hour 2 tablet with evening meal orally twice a dayTaking Warfarin Sodium 5 MG Tablet 1 tablet Orally Once a dayTaking Iron (Ferrous Sulfate) 325 (65 Fe) MG Tablet 1 tablet Orally Once a dayTaking Levothyroxine Sodium 50 MCG Tablet 1 tablet in the morning on an empty stomach Orally Once a dayTaking Mounjaro 7.5 MG/0.5ML Solution Auto-injector INJECT 7.5 MG (0.5 ML) SUBCUTANEOUSLY EVERY WEEK Subcutaneous Taking Sildenafil Citrate 20 MG Tablet Oral Taking Rosuvastatin Calcium 10 MG Tablet 1 tablet Orally Once a dayTaking Sertraline HCl 100 MG Tablet Oral DiscontinuedJanumet 50-500 MG Tablet 1 tablet with meals Orally Twice a dayGlimepiride 4 MG Tablet 1 tablet with breakfast or the first main meal of the day Orally Once a dayAtorvastatin Calcium 20 MG Tablet 1 tablet Orally Once a dayEliquis 5 MG Tablet 1 tablet Orally Twice a dayVitamin B 12 500 MCG Tablet 1 tablet Orally Once a dayDicyclomine HCl 10 MG Capsule 1-2 capsules Orally Every 6 hours prn abdominal cramps/diarrhea---you can take it 30 minutes before a meal to prevent symptoms as wellMedication List reviewed and reconciled with the patientDiscontinued Janumet 50-500 MG Tablet 1 tablet with meals Orally Twice a dayDiscontinued Glimepiride 4 MG Tablet 1 tablet with breakfast or the first main meal of the day Orally Once a dayDiscontinued Atorvastatin Calcium 20 MG Tablet 1 tablet Orally Once a dayDiscontinued Eliquis 5 MG Tablet 1 tablet Orally Twice a dayDiscontinued Vitamin B 12 500 MCG Tablet 1 tablet Orally Once a dayDiscontinued Dicyclomine HCl 10 MG Capsule 1-2 capsules Orally Every 6 hours prn abdominal cramps/diarrhea---you can take it 30 minutes before a meal to prevent symptoms as wellMedication List reviewed and reconciled with the patient * Allergies:?ErythromycinLisin oprilVictozametFORMIN HCl ERFarxigaAmitriptylineyes[Allergies Verified] Objective: * Vitals:?Wt: 236.8 lbs, Ht: 6 5 in, BMI:39.40 Index, BP: 00/00 mm Hg. * Examination: ???General Examination: ?GENERAL APPEARANCE:?pleasant, well nourished, well developed, in no acute distress--she is wearing nasal oxygen.?EYES:?sclera non-icteric.?ORAL CAVITY:?mucosa moist.?NECK/THYROID:?no cervical lymphadenopathy, neck supple.?SKIN:?nonjaundiced, no spider angiomata.?HEART:?S1, S2 normal.?LUNGS:?clear to auscultation bilaterally.?ABDOMEN:?normal bowel sounds, no guarding or rigidity, no guarding or rigidity, no masses palpable, soft, nontender, nondistended.?EXTREMITIES:?no edema.?NEUROLOGIC:?alert and oriented.? Assessment: * Assessment: 1.?Irritable bowel syndrome - K58.9 (Primary)?2.?Colon cancer screening - Z12.11?3.?Personal history of colonic polyps - Z86.010?4.?Anticoagulant long- term use - Z79.01? Overall, Domonique appears well f rom a GI standpoint. She clearly has some underlying pulmonary disease but this seems to be stable at the present time and is being followed closely by Dr. Land. Given her relatively young age and significant polyp removed in 2021, I did recommend a followup colonoscopy for screening purposes assuming she is cleared for the procedure and anesthesia by Dr. Land. We did review the rationale for the colonoscopy in regard to colorectal cancer prevention. Full consent is obtained for this including risks of bleeding and perforation. The procedure will be done with monitored anesthesia care and she'll be scheduled for a PAT appointment prior to the procedure as well. In regard to her intermittent diarrhea we did review what seems to be consistent with her chronic irritable bowel syndrome and the negative workup back in 2021. We did discuss that at some point if the diarrhea continues to be problematic she should speak with you regarding the potential to stop her metformin and use a different diabetes medication in the event the metformin is contributing to her loose bowel movements. I also mentioned that at some point we could give her a trial of cholestyramine to treat any component of a bile-induced diarrhea in relation to her previous cholecystectomy. She has been given the below list of instructions regarding adjustment of some of her medications for the procedure. Domonique was comfortable with this plan. Thank you again for allowing me to participate in Domonique's care. I shall continue to keep you advised of her progress. Plan: * Treatment: Notes: STOP MOUNJARO FOR AT LEAST 7 DAYS BEFORE THE COLONOSCOPY DO NOT TAKE THE METFORMIN THE NIGHT BEFORE NOR ON THE MORNING OF THE COLONOSCOPY STOP WARFARIN FOR FIVE DAYS BEFORE THE COLONOSCOPY AND USE LOVENOX PER DR. LAND'S INSTRUCTIONS STOP IRON FOR 1 WEEK BEFORE THE COLONOSCOPY We will need clearance from Dr. Land for the Anesthesia and Colonoscopy??2.?Personal history of colonic polyps?Procedure: COLONOSCOPY (Ordered for 10/07/2024)* with MACsched for 01/17/25 at 11:30 ammiralax * Procedure Codes:?3017F COLOR ECTAL CA SCREEN DOC [id number] TOBACCO [id number] BP SCR NOT PRFRM REC REASON NOS * Preventive Medicine:? ??Counseling:?Care goal follow-up plan:?Above Normal BMI Follow-up?Giving encouragement to exercise,?BMI management provided?Yes.? * Follow Up:?prn * * Sign off status: Completed true * Provider:?Dario Ramsey MD Date:? 025 Generated for Satish lai/Nettie/eTransmitting on:?11/15/2024 08:26 AM EDT History and Physical Notes * HPI (History of Present Illness) Category Sub-Category Detail Notes Category Not es incontinence I saw Domonique in followup today regarding further evaluation of her underlying irritable bowel syndrome with associated loose stools, her previous history of a tubular adenoma of the colon, and discussion of colorectal cancer screening. I last saw Domonique in August of 2022 at which time she underwent a colonoscopy for both screening purposes and for evaluation of her chronic irritable bowel syndrome with associated diarrhea. The exam was negative for any inflammatory bowel disease or microscopic colitis. However, she did have a sizable approximately 1.5 cm tubular adenoma removed from the rectum. Previous laboratories had also been negative for celiac disease. She does have a history of microcytic anemia but This was felt to be in relation to her heavy menses. She describes that she presently feels well from a GI standpoint. She reports that her bowel movements do remain somewhat irregular with loose stools. However, there's been no signs of hematochezia nor melena. She enjoys a good appetite and denies any significant heartburn or dysphagia. She denies any particular abdominal pains, jaundice, nor unintentional weight loss. She denies any known family history of colon cancer, inflammatory bowel disease, nor celiac disease. She has had some worsening of her pulmonary condition due to recurrent pulmonary emboli requiring the use of Coumadin rather than her previous Eliquis. She also had to undergo a catheterization for pulmonary angiography for removal of pulmonary emboli at [facility]. She describes that she is followed closely by Dr. Land for this. She is currently using supplemental oxygen intermittently throughout the day and night, although not on a 24/7 schedule. She does remain on iron supplements for previous anemia as well. Laboratories earlier this month revealed a hemoglobin of 10.4 with MCV of 68, as well as normal LFTs. Examination Category Sub-Category Detail Notes Category Not es General Examination GENERAL APPEARANCE: pleasant , well [...]
--- OUTSIDE RECORDS SUMMARY | 2024-11-15 08:26 | XMS_ITS | Patient Health Record ---
Author Organization [facility] Address [address] [place] [address] Care Team Providers Care Back Grinder Name Role Phone Deena Workman Primary Care Provider Unavailab Dario Holbrook Unavailable [phone] Allergies Allergen (clinical drug ingredient) Drug/Non Drug Allergy documented on EMR Reaction Allergy Type Onset Date Status lisinopril Lisinopril Unknown Drug Allergy Activ e amitriptyline Amitriptyline Unknown Drug Allergy Active dapagliflozin Farxiga Unknown Drug Allergy Act wiley metformin metFORMIN HCl ER Unknown Drug Allergy Active liraglutide Victoza Unknown Drug Allergy Activ e erythromycin Erythromycin Unknown Drug Allergy A ctive Reason For Referral No Information Medications Medication [...] orally twice a day Active Albuterol Active Immunizations Vaccine Route Administration Date Status Comme nts Influenza Unknown 05/10/2022 Administered Social History Tobacco Use: Social History Observation Description Date Details (start date - stop date) Never Smoker NA - NA Tobacco Use/Smoking Question Answer Notes Patient is a nonsmoker Alcohol Screen Question Answer Notes Did you have a drink containing alcohol in the p ast year? No Points 0 Interpretation Negative Section Notes: Nonsmoker, no sig alcohol Nonsmoker, no sig alcohol Problems Problem Type SNOMED Code ICD Code Onset Dates Problem Status W/U Status Risk Notes Problem Colon cancer screening (950133563) Colon cancer screening (Z12.11) Active confirmed Problem Irritable bowel syndrome (22902233) Irritable bowel syndrome (K58.9) Active confirmed Problem History of polyp of colon (situation) (288866265) Personal history of colonic polyps (Z86.010) Active confirmed Problem Microcytic anemia (673276091) Microcytic anemia (D50.9) Active confirmed Problem Long-term current use of anticoagulant (358027846) Anticoagulant long-term use (Z79.01) Active confirmed Problem Diverticulosis of colon (244496273) Diverticulosis of colon (K57.30) Active confirmed Vital Signs Blood pressure diastolic 00 mm Hg 10/07/2024 Height 65 in 10/07/2024 Blood pressure systolic 00 mm Hg 10/07/2024 Weight 236.8 lbs 10/07/2024 BMI 39.40 kg/m2 10/07/2024 Encounters Encounter Location Date Provider Diagnosis [facility] [address] [place] [address] 10/07/2024 Dario Ramsey Irritable bowel syndrome K58.9 ; Colon cancer screening Z12.11 ; Personal history of colonic polyps Z86.010 and Anticoagulant long-term use Z79.01 [facility] [address] [place] [address] 10/08/2024 Dario Ramsey Assessments Encounter Date Diagnosis (ICD Code) Assessment Notes Treatment Notes Treatment Clinical Notes Section Notes 10/07/2024 Colon cancer screening (ICD-10 - [...] keep you advised of her progress. 10/07/2024 Irritable bowel syndrome (ICD-10 - K58.9) [...] advised of her progress. Plan Of Treatment Pending Test Test Name Order Date CELIAC PANEL #10 05/22/2022 Future Test Test Name Order Date COLONOSCOPY 05/22/2022 COLONOSCOPY 10/07/2024 Next Appt Details Provider Name:Dario Vu Roxy , 01/17/2025 11:30:00 AM, [address] [place] [address] , [place], [place], [id number], Insurance Providers Payer Name Payer Address Payer Phone Subscriber Number Group Number Insured Name Patient Relationship to Insured Coverage Start Date Coverage End Date [facility] [address] [address] [place], [place] [id number] DOMONIQUE SANTILLAN Self - patient is the insured MEDICAID OF [facility] [address] [place] [address] [phone] [id number] DOMONIQUE SANTILLAN Self - patient is the insured Medical (General) History Medical History History ICD Code ERCP with sphincterotomy 10-30-2001 Pulmonary emboli with COVID 10/2020-she describes a two-week hospitalization although did not require intubation. She describes having been left with some respiratory issues for which she is seeing Dr. Land. She also describes some residual brain fog Arthritis Denies ID,CVA NIDDM Anemia from heavy menses--she sees Dr. [...] for removal of pulmo nary clots at [facility] Surgical History Surgery Date(Month/Year) CCY 2001 BTL 2001 Bilateral carpal tunnel 2017 Right foot 1999 Right wrist 2021 Partial thyroidectomy for a cancer 2023
--- OUTSIDE RECORDS SUMMARY | 2024-11-15 08:26 | XMS_ITS ---
Author Organization Dario Urbano III, MD Address [address] [place] [address] Care Team Providers Care American Sign Language Interpreter Name Role Phone Jacinta ANGULO, [facility] Primary Care Provider Dario Slater Unavailable [phone] Allergies Allergen (clinical drug ingredient) Drug/Non Drug Allergy documented on EMR Reaction Allergy Type Onset Date Status metformin Metformin HCl GI UPSET Drug Allergy Act wiley Lisinopril ANGIOEDEMA Drug Allergy Activ e erythromycin Erythromycin HIVES Drug Allergy A ctive amitriptyline Amitriptyline HCl DRUGGED FEELING Drug Allergy Active dapagliflozin Farxiga UTI Drug Allergy Act wiley liraglutide Victoza NAUSEA Drug Allergy Activ e REASON FOR VISIT Vitamin B12 deficiency, Iron [...] Date Provider Diagnosis Dario Urbano III, MD [address] [place] [address] [place] [address] 09/29/2024 Dario Urbano Morbid obesity E66.0 1 [...] consider the weight loss surgery program at [facility]. 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 is her solar sales manager was going to put her on [...] Telehealth Provider Name:Dario Urbano, 02/11/2025 10:15:00 AM, [address] [place], [place], [address], Progress Notes * Domonique SANTILLAN SDOB:1975 (49 yo F)Acc No.[id number]:09/29/2024 Progress Notes Patient:?Domonique SANTILLAN Provider:?Dario Urbano MD :1975???Age:49 Y???Sex:Female D ate:09/29/2024 Address:[address] [place], [place] [id number] Pcp:Deena Workman MD Subjective: * Chief Complaints: [...] consider the weight loss surgery program at [facility]. She has lost 59 pounds since [...] hypothyroidism - E03.9???Notes :She says is her solar sales manager was going to put her on [...] Urbano MD Date:?09/09 Generated for Satish lai/Nettie/eTmartínezsmitting on:?11/15/2024 08:26 AM EDT History and Physical [...]
--- OUTSIDE RECORDS SUMMARY | 2024-11-15 08:26 | XMS_ITS ---
Author Organization [facility] Address [address] [place] [address] Care Team Providers Care Manager Gift Name Role Phone Deena Workman Primary Care Provider Unavailab Dario Holbrook [phone] REASON FOR VISIT PAT appt Encounters Encounter Location Date Provider Diagnosis [facility] [address] [place] [address] 10/08/2024 Dario Ramsey Plan Of Treatment Next Appt Details Provider Name:Dario Ramsey , 01/17/2025 11:30:00 AM, [address] [place] [address] , [place], [place], [phone], Progress Notes * TYRELLCHAVEZKWAMEDOB:1975 ([age] yo F)Acc No.[id number]:10/08/2024 Patient:?KASANDRA SANTILLAN :1975???Age:49 Y???Sex:Female Address:[address] [place], [place] [address] [place] [address] * true * Date:? Generated for Printi ng/Fachavezg/eTransmitting on:?11/15/2024 08:26 AM EDT
--- OUTSIDE RECORDS SUMMARY | 2024-11-15 08:26 | XMS_ITS ---
Author Organization Dario Urbano III, MD Address [address] [place] [address] Care Team Providers Care Watch Engineer Name Role Phone Jacinta ANGULO, [facility] Primary Care Provider Dario Slater [facility] [phone] Allergies Allergen (clinical drug ingredient) Drug/Non Drug [...] Provider Diagnosis Dario Urbano III, MD [address] [place] [address] [place] [address] 09/29/2023 Draio Urbano Morbid obesity E66.0 1 ; Dysthymic [...] consider the weight loss surgery program at [facility]. She has gained 10 pounds since [...] (ICD-10 - E03.9) She says is her wash barrel leader was going to put her on thyroid [...] of pulmonary artery angioplasties at the [facility] the next of which will [...] V Provider Name:Dario Urbano, 02/11/2025 10:15:00 AM, [address] [place] [address] [address] [place], [place], [address], Progress Notes * Domonique SANTILLAN SDOB:1975 (48 yo F)Acc No.[id number]:09/29/2023 Progress Notes Patient:?Domonique Santillan S Provider:?Dario Urbano MD :1975???Age:48 Y???Sex:Female D ate:09/29/2023 Address:[id number] Pcp:Deena Workman MD Subjective: * Chief Complaints: [...] consider the weight loss surgery program at [facility]. She has gained 10 pounds since [...] hypothyroidism - E03.9, She says is her wash barrel leader was going to put her on thyroid replacement.?8.?Pulmonary embolism, unspecified chronicity, unspecified pulmonary embolism type, unspecified whether acute cor pulmonale present - I26.99, She was breathing comfortably today and has had no further episodes of dizziness or arterial thromboembolism. She had multiple pulmonary emboli/2022.These have caused dyspnea with exertion and she is undergoing a series of pulmonary artery angioplasties at the [facility] the next of which will [...] Provider:?Dario Urbano MD Date:?09/09 Generated for Satish ming/Nettie/eTransmitting on:?11/15/2024 08:25 AM EDT History and Physical Notes * HPI (History of Present Illness) Category Sub-Category Detail Notes COVID-19 Screening Questions Have you had any new onset fever, chills, cough, congestion, sore throat, shortness of breath, muscle aches?: No Have you been exposed to the virus withi n the last 10 days?: No [facility] you [facility]?: No Have you [...]
--- OUTSIDE RECORDS SUMMARY | 2024-11-15 08:27 | XMS_ITS | Patient Health Record ---
Author Organization Dario Urbano III, MD Address [address] [place] [address] Care Team Providers Care Head Bookkeeper Name Role Phone Jacinta ANGULO, [facility] Primary Care Provider Dario Slater Unavailable [phone] Allergies Allergen (clinical drug ingredient) Drug/Non Drug Allergy documented on EMR Reaction Allergy Type Onset Date Status metformin Metformin HCl GI UPSET Drug Allergy Act wiely Lisinopril ANGIOEDEMA Drug Allergy Activ e erythromycin Erythromycin HIVES Drug Allergy A ctive amitriptyline Amitriptyline HCl DRUGGED FEELING Drug Allergy Active dapagliflozin Farxiga UTI Drug Allergy Act wiley liraglutide Victoza NAUSEA Drug Allergy Activ e Results Component Value Reference Range Notes Complete Blood Count Auto Di ff Reviewed date:10/08/2024 08:30:57 AM Interpretation: Performing Lab:[facility], [address] [place] [address] Notes/Report: White Blood Count 9.3 4.8-10.8 X10*3/uL [...] te Reviewed date:10/08/2024 08:30:58 AM Interpretation: Performing Lab:[address] [address] Notes/Report: Erythrocyte Sedimentation Rate 23 0-20 MM/HR Patients with polycythemia and many hemoglobin abnormalities may have depressed sed rates whereas patients with anemia may have elevated sed rates. RETIC Reviewed date:10/08/2024 08:30:58 AM Interpretation: Performing Lab:[address] [address] Notes/Report: Reticulocytes Absolute 0.058 0.026-0.095 X10*6/ uL Immature Retic Fraction 20.0 3.0-15.9 % Retic HGB Equivalent 23.7 30.0-35.0 pg Reticulocyte Percent 1.1 0.5-1.8 % Ferritin Reviewed date:10/08/2024 08:30:58 AM Interpretation: Performing Lab:[address] [address] Notes/Report: Ferritin 18 10-250 ng/mL Reason For [...] Problem Status W/U Status Risk Notes Problem 38361226 Dysthymic disorder (F34.1) Active confirmed Her depress ion is mild and I will recommend no change in her current medications. Problem 541204732 Acquired hypothyroidism (E03.9) Active confirmed She has been continued on her current dose of levothyroxine without change. Problem 869627254 Vitamin B 12 deficiency (E53.8) Active confirmed A B12 level is not available at this time. She was continued on current therapy and the value will be followed. 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 She has been referred to [facility] for thyroidectomy. This will require cessation of her anticoagulation . Problem 302946595 History of cholecystectomy (Z90.49) Active confirmed Problem 878640501 Thrombophilia (D68.59) Active confirmed She has had no further blood clots or emboli. No change in her regimen was made. Problem 44105225 Iron deficiency anemia, unspecified iron deficiency anemia [...] future. An explanation will be sought. Problem 345455016 Morbid obesity (E66.01) Active confirmed Her body mass index is now 41.We discussed diet and nutrition. I recommended aggressive weight loss. I recommended she consider the weight loss surgery program at [facility]. She has lost 59 pounds since her last visit. Problem 41558674 Adult onset diabetes mellitus with ketoacidosis (E11.10) Active confirmed She has been compliant with her medications, which are prescribed by primary care. 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 It has not affected her life significantly. No change in her regimen as needed. Problem 97986559 Pulmonary embolism, unspecified chronicity, unspecified pulmonary embolism type, unspecified whether acute cor pulmonale present (I26.99) Active confirmed She was breathing comfortably today and has had no further episodes of dizziness or arterial thromboembolism . She had multiple pulmonary emboli/2022.These have caused dyspnea with exertion and she is undergoing a series of pulmonary artery angioplasties at the [facility] the next of which will be in August2023. Vital Signs Heart Rate 96 /min 09/29/2024 Temperature 97.3 degrees Fahrenheit 09/29/2024 Blood pressure diastolic 92 mm Hg 09/29/2024 Height 64 in 10/13/2024 Blood pressure systolic 118 mm Hg 09/29/2024 Weight 243 lbs 10/13/2024 BMI 41.71 kg/m2 10/13/2024 Encounters Encounter Location Date Provider Diagnosis Dario Urbano III, MD [address] [place] [address] [place] [address] 09/29/2024 Dario Urbano Morbid obesity E66.0 1 ; Thrombophilia D68.59 ; Iron deficiency anemia, unspecified iron deficiency anemia type D50.9 ; Dysthymic disorder F34.1 ; Post-cholecystectomy syndrome K91.5 ; Adult onset diabetes mellitus with ketoacidosis E11.10 ; Vitamin B 12 deficiency E53.8 and Acquired hypothyroidism E03.9 Dario Urbano III, MD [address] [place] [address] [place] [address] 10/13/2024 Dario Urbano Morbid obesity E66.0 1 [...] consider the weight loss surgery program at [facility]. She has lost 59 pounds since [...] consider the weight loss surgery program at [facility]. 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 is her pleater was going to put her on thyroid replacement. Plan Of Treatment Pending Test Test Name Order Date PROFILE, FASTING (COMPREHENSIVE METABOLI C) 07/27/2020 PROFILE, FASTING (COMPREHENSIVE METABOLI C) 10/13/2024 PROFILE, FASTING (COMPREHENSIVE METABOLI C) 03/23/2020 PROFILE, FASTING (COMPREHENSIVE METABOLI C) 02/23/2021 PROFILE, RANDOM (COMPREHENSIVE METABOLIC ) 04/23/2019 PROFILE, RANDOM (COMPREHENSIVE METABOLIC ) 08/21/2018 PROFILE, RANDOM (COMPREHENSIVE METABOLIC ) 07/22/2022 PROFILE, RANDOM (COMPREHENSIVE METABOLIC ) 04/20/2018 PROFILE, RANDOM (COMPREHENSIVE METABOLIC ) 04/15/2022 PROFILE, RANDOM (COMPREHENSIVE METABOLIC ) 11/24/2020 PROFILE, RANDOM (COMPREHENSIVE METABOLIC ) 07/04/2021 HEMOGLOBIN A1C (GLYCOHEMOGLOBIN) 020 HEMOGLOBIN A1C (GLYCOHEMOGLOBIN) 020 HEMOGLOBIN A1C (GLYCOHEMOGLOBIN) 020 LIPID PANEL 02/23/2021 LDH 04/06/2018 FREE T4 (FT4) 07/27/2020 FREE T4 (FT4) 11/24/2020 TSH (THYROID STIMULATING HORMONE) 2019 TSH (THYROID STIMULATING HORMONE) 2020 TSH (THYROID STIMULATING HORMONE) 2024 FERRITIN 07/04/2021 FERRITIN 04/23/2019 FERRITIN 07/27/2020 FERRITIN 02/23/2021 FERRITIN 11/24/2020 FERRITIN 04/06/2018 FERRITIN 08/21/2018 FERRITIN 07/22/2022 FERRITIN 04/20/2018 FERRITIN 03/23/2020 FERRITIN 12/23/2019 VITAMIN B12 AND FOLATE 04/06/2018 B12 03/23/2020 B12 12/23/2019 B12 04/23/2019 B12 07/27/2020 B12 02/23/2021 B12 11/24/2020 B12 04/15/2022 CBC w DIFF 07/04/2021 CBC w DIFF 03/23/2020 CBC w DIFF 12/23/2019 CBC w DIFF 04/23/2019 CBC w DIFF 07/27/2020 CBC w DIFF 08/21/2018 CBC w DIFF 02/23/2021 CBC w DIFF 07/22/2022 CBC w DIFF 04/20/2018 CBC w DIFF 11/24/2020 CBC w DIFF 04/15/2022 CBC w DIFF [...] DIFF 09/29/2024 RETIC 10/13/2024 RETIC 09/29/2024 Ferritin 10/13/2024 Ferritin 09/29/2024 Ferritin 04/15/2022 Lipid Panel 10/13/2024 Folate 04/15/2022 Free T4 (Free Thyroxine) 10/13/2024 Next Appt Details Provider Name:Dario Urbano, 02/11/2025 10:15:00 AM, [address] [place] [address] [place], [place], [address], Insurance Providers Payer Name Payer Address Payer Phone Subscriber Number Group Number Insured Name Patient Relationship to Insured Coverage Start Date Coverage End Date [employer] [address] [address] [place] [address] [id number] Domonique Bro Self - patient is the insured MEDICAID [address] [place], [place] [id number] Domonique Bro Self - patient is the insured Medical (General) History Medical History History ICD Code Hyperlipidemia, unspecified hyperlipidem ia type E78.5 Postcholecystectomy syndrome K91.5 Dysmenorrhea N94.6 Morbid obesity E66.01 Dysthymic disorder F34.1 Anemia, unspecified type D64.9 Type 2 diabetes mellitus wit h complication, unspecified whether correction insulin use E11.8 G6 carpal tunnel syndrome, [...] 04/2022 blood clots in lungs angioplasty in Nove and 08/2023 No history Hospitalization History Reason Date(Month/Year) COVID 10/2020 No history
--- OUTSIDE RECORDS SUMMARY | 2024-11-15 08:27 | XMS_ITS ---
Author Organization Dario Urbano III, MD Address [address] [place] [address] Care Team Providers Care Sales Rep Name Role Phone Jacinta ANGULO, [facility] Primary Care Provider Dario Slater [facility] [phone] Allergies Allergen (clinical drug ingredient) Drug/Non Drug [...] (5 MG) 5 MG 1 tablet Ora ll Once a day Active Levothyroxine Sodium 50 [...] Date Provider Diagnosis Dario Urbano III, MD [address] [place] [address] [address] [facility] [address] 10/13/2024 Dario Urbano Morbid obesity E66.0 1 [...] consider the weight loss surgery program at [facility]. She has lost 59 pounds since [...] ov Provider Name:Dario Urbano, 02/11/2025 10:15:00 AM, [address] [place] [address] , [address], [place], [place], [address], Progress Notes * Domonique SANTILLAN SDOB:1975 (49 yo F)Acc No.[id number]:10/13/2024 Patient:?Domonique SANTILLAN S Provider:?Dario Urbano MD :1975???Age:49 Y???Sex:Female D ate:10/13/2024 Address:[address] [place], [place] [address] Pcp:Deena Workman MD Subjective: * Chief Complaints: * ???Vitamin B12 deficiencyIro n deficiency * HPI: ???:?Telehealth?Location of provider rendering services:?{...} [address] [facility] [address] ?Location of patient:?address listed in demographics for [...] Time - 10/07/2024 09:15 AM)?ValueReference Range?Erythrocyte Sedimentation [id number] - MM/HR Assessment: * Assessment: 1.?Iron deficiency [...] consider the weight loss surgery program at [facility]. She has lost 59 pounds since [...] Urbano MD Date:?01/2025 Generated for Satish lai/Nettie/eTransmitting on:?11/15/2024 08:26 AM EDT History and Physical Notes * HPI (History of Present Illness) Category Sub-Category Detail Notes Telehealth Location of [facility] rendering services:: {...} [address] [place] [address] Location of patient:: address listed in demographics [...]
[2024-11-15 08:36] LABS: Prothrombin Time Whole Bld POC 32.9 sec (11.1-13.5); ~PT, ~INR - Anti Coag Clinic 2.7 (0.9-1.1)
--- NOTE | 2024-11-15 08:39 | MHC.OFFVISCO ---
Intake Intake Visit Reasons: Anticoagulation Allergies lisinopril [LISINOPRIL] Allergy (Severe, Verified 11/15/24 08:22) ANGIOEDEMA dapagliflozin [From FARXIGA] Allergy (Intermediate, Verified 11/15/24 08:22) HIVES liraglutide [From VICTOZA] Allergy (Intermediate, Verified 11/15/24 08:22) RASH metformin [METFORMIN] Allergy (Intermediate, Verified 11/15/24 08:22) GI UPSET erythromycin base [ERYTHROMYCIN BASE] Allergy (Unknown, Verified 11/15/24 08:22) UNKNOWN amitriptyline [AMITRIPTYLINE] Adverse Reaction (Intermediate, Verified 11/15/24 08:22) DRUGGED FEELING Medication List - Last Reconciled 11/15/24 by Francine Mitchell RN acetaminophen ER 650 mg PO Q6H PRN albuterol sulfate 2.5 mg inhalation Q4H PRN albuterol sulfate 90 mcg/actuation (Ventolin HFA) 2 puffs inhalation Q6H PRN blood sugar diagnostic (FreeStyle Lite Strips) As directed blood-glucose meter (FreeStyle Lite Meter kit) Use daily As directed to check blood sugars compress.stocking,knee,reg,med 15-20 cm dextromethorphan-guaifenesin 60-1,200 mg ER (Mucinex DM) 1 tab PO Q12H 14 days enoxaparin (Lovenox) 100 mg See Protocol subcut Q12H 5 days ferrous gluconate 324 mg PO DAILY levothyroxine 50 mcg PO DAILY metformin 1,000 mg PO BID methylprednisolone (Medrol (Gene)) PO PER PKG DIR 6 days nebulizers As directed Oxygen Home Use As directed rosuvastatin 10 mg PO BEDTIME sertraline 100 mg PO DAILY sildenafil (pulm.hypertension) 20 mg PO TID 30 days tirzepatide (Mounjaro) 10 mg (0.5 mL) subcut QWEEK warfarin 5 mg See Protocol PO DAILY 30 days Nursing Note INR: 2.7 in therapeutic range of 2-3 Pt did not have tooth pulled last week. The appointment was cancelled but she will have it pulled this week. Medications and supplements reviewed No changes in health, diet, medications, or supplements, Denies any signs and symptoms of bleeding or bruising or clotting. Bleeding, bruising, clotting discussed Nutritional guidance given Dose: 2.5mg X 6 days and 5mg X 1 day F/U INR: 1 week Patient verbalizes understanding of instructions given Anti-Coag Initial Assessment Social Hx Patient Tobacco Use Status: Never used Tobacco alcohol intake: former Alcohol intake frequency: does not drink Cardiovascular Hx: HTN Lung Disease HX: DVT/PE Endocrine Hx: Thyroid Disease Musculoskeletal Hx: Arthritis Blood Disorder Hx: Anemia and Hyperlipidemia GI Hx: Ulcers, Diverticulosis and Hemorrhoids Hx: Other Neurological Hx: Migraines/Headaches and Other Cancer HX: No Psych. 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
== END 2024-11-15 08:42 | disposition home or self-care (01) ==
LOC: HO.ACS 08:19
PROVIDERS: PCP Internal Medicine; Visit Provider Internal Medicine
DX: Z79.01 Long term (current) use of anticoagulants (principal)

== ENCOUNTER → 2024-11-15 08:19 | Outpatient (BNVA) | payer OTHER, SELFPAY | PROVIDERS: PCP Internal Medicine; Visit Provider Internal Medicine | DX: I26.99 Other pulmonary embolism without acute cor pulmonale (principal); Z79.01 Long term (current) use of anticoagulants; Z51.81 Encounter for therapeutic drug level monitoring | CPT/HCPCS: 85610; 99211 ==

== ENCOUNTER 2024-11-23 08:17 | Outpatient (AMB) | payer OTHER, SELFPAY ==
--- OUTSIDE RECORDS SUMMARY | 2024-11-23 08:26 | XMS_ITS | Clinical Summary ---
Author Organization [facility] it Address [address] [place] [address] Care Team Providers Care Specialty Manufacturing Supervisor Name Role Phone Unavailable Primary Care Provider [...] Documents on File Type Date Recorded Patient Supervisor Brake Repair Expl anation Health Care Decision (hx) 10/31/2020 AD MERCEDES DIRECTIVE
--- OUTSIDE RECORDS SUMMARY | 2024-11-23 08:27 | XMS_ITS ---
Author Organization [facility] Address [address] [place] [address] Care Team Providers Care Code And Test Clerk Name Role Phone Deena Workman Primary Care Provider UnavailDario Cooper Unavailable [phone] Allergies Allergen (clinical drug ingredient) Drug/Non Drug Allergy documented on EMR Reaction Allergy Type Onset Date Status dapagliflozin Farxiga Unknown Drug Allergy Act wiley metformin metFORMIN HCl ER Unknown Drug Allergy Active liraglutide Victoza Unknown Drug Allergy Activ e erythromycin Erythromycin Unknown Drug Allergy A ctive lisinopril Lisinopril Unknown Drug Allergy Activ e amitriptyline Amitriptyline Unknown Drug Allergy Active REASON FOR VISIT Patient presents today for [...] Problem History of polyp of colon (situation) (973945109) Personal history of colonic polyps (Z86.010) Active confirmed Problem Long-term current use of anticoagulant (995733769) Anticoagulant long-term use (Z79.01) Active confirmed Vital Signs Blood pressure systolic 00 mm Hg 10/07/19 25 Blood pressure diastolic 00 mm Hg 025 Height 65 in 10/07/2024 Weight 236.8 lbs 10/07/2024 BMI 39.40 kg/m2 10/07/2024 Encounters Encounter Location Date Provider Diagnosis [facility] [address] [place] [address] 10/07/2024 Dario Ramsey Irritable bowel syndrome K58.9 [...] Provider Name:Dario Ramsey , 01/17/2025 11:30:00 AM, [address] [place] [address], [phone], Progress Notes * DOMONIQUE SANTILLANDOB:1975 ([age] yo F)Acc No.[id number]:10/07/2024 Progress Notes Patient:?DOMONIQUE SANTILLAN Provider:?Dario Ramsey MD :1975???Age:49 Y???Sex:Female D ate:10/07/2024 Address:[address] [place], [place] [id number] Pcp:Deena Workman Subjective: * Chief Complaints: * [...] angiography for removal of pulmonary emboli at [facility]. She describes that she is followed closely [...] Procedure Codes:?3017F COLOR ECTAL CA SCREEN DOC [id number] TOBACCO NON-[id number] BP SCR NOT PRFRM REC REASON NOS * Preventive Medicine:? ??Counseling:?Care goal follow-up plan:?Above Normal BMI Follow-up?Giving encouragement to exercise,?BMI management provided?Yes.? * Follow Up:?prn * * Sign off status: Completed true * Provider:?Dario Ramsey MD Date:? 025 Generated for Satish lai/Nettie/eTransmitting on:?11/23/2024 08:27 AM EDT History and Physical Notes * [...] angiography for removal of pulmonary emboli at [facility]. She describes that she is followed closely [...]
--- OUTSIDE RECORDS SUMMARY | 2024-11-23 08:27 | XMS_ITS ---
Author Organization [facility] Address [address] [place] [address] Care Team Providers Care Application Integration Architect Name Role Phone Deena Workman Primary Care Provider Unavailab Dario Holbrook [phone] REASON FOR VISIT PAT appt Encounters Encounter Location Date Provider Diagnosis [facility] [address] [place] [address] 10/08/2024 Dario Ramsey Plan Of Treatment Next Appt Details Provider Name:Dario Ramsey , 01/17/2025 11:30:00 AM, [address] [place] [address] , [place], [place], [phone], Progress Notes * TYRELLCHAVEZKWAMEDOB:1975 ([age] yo F)Acc No.[id number]:10/08/2024 Patient:?KASANDRA SANTILLAN :1975???Age:49 Y???Sex:Female Address:[address] [place] [address] [place] [address] * true * Date:? Generated for Printi ng/Fachavezg/eTransmitting on:?11/23/2024 08:27 AM EDT
--- OUTSIDE RECORDS SUMMARY | 2024-11-23 08:27 | XMS_ITS ---
Author Organization Dario Urbano III, MD Address [address] [place] [address] Care Team Providers Care Counterintelligence/Humint Specialist Name Role Phone Jacinta ANGULO, [facility] Primary Care Provider Dario Slater [phone] Allergies Allergen (clinical drug ingredient) Drug/Non Drug [...] Date Provider Diagnosis Dario Urbano III, MD [address] [place] [address] [place] [address] 09/29/2023 Dario Urbano Morbid obesity E66.0 1 [...] consider the weight loss surgery program at [facility]. She has gained 10 pounds [...] (ICD-10 - E03.9) She says is her director of engineering was going to put her on thyroid [...] series of pulmonary artery angioplasties at the [facility] the next of which will [...] V Provider Name:Dario Urbano, 02/11/2025 10:15:00 AM, [address] [place] [address] [address] [place] [address], [place], [address], Progress Notes * Domonique SANTILLAN SDOB:1975 (48 yo F)Acc No.[id number]:09/29/2023 Progress Notes Patient:?Santillan, Domonique S Provider:?Dario Urbano MD :1975???Age:48 Y???Sex:Female D ate:09/29/2023 Address:[address] [place] [address] [id number] Pcp:Deena Workman MD Subjective: * Chief Complaints: [...] consider the weight loss surgery program at [facility]. She has gained 10 pounds [...] hypothyroidism - E03.9, She says is her director of engineering was going to put her on thyroid replacement.?8.?Pulmonary embolism, unspecified chronicity, unspecified pulmonary embolism type, unspecified whether acute cor pulmonale present - I26.99, She was breathing comfortably today and has had no further episodes of dizziness or arterial thromboembolism. She had multiple pulmonary emboli/2022.These have caused dyspnea with exertion and she is undergoing a series of pulmonary artery angioplasties at the [facility] the next of which will [...] Urbano MD Date:?09/09 Generated for Printi ng/Nettie/eTransmitting on:?11/23/2024 08:26 AM EDT History and Physical Notes * HPI (History of Present Illness) Category Sub-Category Detail Notes COVID-19 Screening Questions Have you had any new onset fever, chills, cough, congestion, sore throat, shortness of breath, muscle aches?: No Have you been exposed to the virus withi n the last 10 days?: No Have you travelled internationally in [facility] last 10 days?: No Have you [...]
--- OUTSIDE RECORDS SUMMARY | 2024-11-23 08:27 | XMS_ITS | Patient Health Record ---
Author Organization [facility] Address [address] [place] [address] Care Team Providers Care Pattern And Chain Maker Name Role Phone Deena Workman Primary Care Provider Unavailab Dario Holbrook Unavailable [phone] Allergies Allergen (clinical drug ingredient) Drug/Non Drug Allergy documented on EMR Reaction Allergy Type Onset Date Status dapagliflozin Farxiga Unknown Drug Allergy Act wiley metformin metFORMIN HCl ER Unknown Drug Allergy Active liraglutide Victoza Unknown Drug Allergy Activ e erythromycin Erythromycin Unknown Drug Allergy A ctive lisinopril Lisinopril Unknown Drug Allergy Activ e amitriptyline Amitriptyline Unknown Drug Allergy Active Reason For Referral No [...] Status Risk Notes Problem Colon cancer screening (649360710) Colon cancer screening (Z12.11) Active confirmed Problem Irritable bowel syndrome (70580659) Irritable bowel syndrome (K58.9) Active confirmed Problem History of polyp of colon (situation) (148203756) Personal history of colonic polyps (Z86.010) Active confirmed Problem Microcytic anemia (929793277) Microcytic anemia (D50.9) Active confirmed Problem Long-term current use of anticoagulant (900346813) Anticoagulant long-term use (Z79.01) Active confirmed Problem Diverticulosis of colon (615156798) Diverticulosis of colon (K57.30) Active confirmed Vital Signs Blood pressure diastolic 00 mm Hg 10/07/2024 Height 65 in 10/07/2024 Blood pressure systolic 00 mm Hg 10/07/2024 Weight 236.8 lbs 10/07/2024 BMI 39.40 kg/m2 10/07/2024 Encounters Encounter Location Date Provider Diagnosis [facility] [address] [place] [address] 10/07/2024 Dario Ramsey Irritable bowel syndrome K58.9 ; Colon cancer screening Z12.11 ; Personal history of colonic polyps Z86.010 and Anticoagulant long-term use Z79.01 [facility] [address] [place] [address] 10/08/2024 Dario Ramsey Assessments Encounter Date Diagnosis [...] Name:Dario Vu Roxy , 01/17/2025 11:30:00 AM, [address] [place] [address] , [place], [place], [phone], Insurance Providers Payer Name Payer Address Payer Phone Subscriber Number Group Number Insured Name Patient Relationship to Insured Coverage Start Date Coverage End Date [facility] [address] [address] [place], [place] [id number] DOMONIQUE SANTILLAN Self - patient is the insured MEDICAID OF [facility] [address] [place] [address] [phone] [id number] DOMONIQUE SANTILLAN Self - patient is the insured Medical (General) History Medical History History ICD Code ERCP with sphincterotomy 10-30-2001 Pulmonary emboli with COVID 10/2020-she describes a two-week hospitalization although did not require intubation. She describes having been left with some respiratory issues for which she is seeing Dr. Land. She also describes some residual brain fog Arthritis Denies ME,CVA NIDDM Anemia from heavy menses--she sees Dr. [...] for removal of pulmo nary clots at [facility] Surgical History Surgery Date(Month/Year) CCY 2001 BTL 2001 Bilateral carpal tunnel 2017 Right foot 1999 Right wrist 2021 Partial thyroidectomy for a cancer 2023
--- OUTSIDE RECORDS SUMMARY | 2024-11-23 08:27 | XMS_ITS ---
Author Organization Dario Urbano III, MD Address [address] [place] [address] Care Team Providers Care Credit Risk Specialist Name Role Phone Jacinta ANGULO, [facility] Primary Care Provider Dario Slater Unavailable [phone] Allergies Allergen (clinical drug ingredient) Drug/Non Drug [...] Provider Diagnosis Dario Urbano III, MD [address] [place] [address] [place] [address] 09/29/2024 Dario Urbano Morbid obesity E66.0 1 [...] consider the weight loss surgery program at [facility]. 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 is her lan engineer was going to put her on thyroid [...] Telehealth Provider Name:Dario Urbano, 02/11/2025 10:15:00 AM, [address] [place] [address] [place], [place], [address], Progress Notes * Domonique SANTILLAN SDOB:1975 (49 yo F)Acc No.[id number]:09/29/2024 Progress Notes Patient:?Domonique SANTILLAN S Provider:?Dario Urbano MD :1975???Age:49 Y???Sex:Female D ate:09/29/2024 Address:[address] [place], [place] [id number] Pcp:Deena Workman MD Subjective: * Chief Complaints: [...] consider the weight loss surgery program at [facility]. She has lost 59 pounds since [...] hypothyroidism - E03.9???Notes :She says is her lan engineer was going to put her on thyroid [...] Urbano MD Date:?09/09 Generated for Satish lai/Nettie/eTransmitting on:?11/23/2024 08:27 AM [...]
--- OUTSIDE RECORDS SUMMARY | 2024-11-23 08:27 | XMS_ITS | Patient Health Record ---
Author Organization Dario Urbano III, MD Address [address] [place] [address] Care Team Providers Care Director Of Career Services Name Role Phone Jacinta ANGULO, [facility] Primary Care Provider Dario Slater [phone] Allergies Allergen (clinical drug ingredient) Drug/Non Drug [...] ff Reviewed date:10/08/2024 08:30:57 AM Interpretation: Performing Lab:[facility], [address] [place] [address] Notes/Report: White Blood Count 9.3 4.8-10.8 X10*3/uL [...] te Reviewed date:10/08/2024 08:30:58 AM Interpretation: Performing Lab:[address] [address] Notes/Report: Erythrocyte Sedimentation Rate 23 0-20 MM/HR Patients with polycythemia and many hemoglobin abnormalities may have depressed sed rates whereas patients with anemia may have elevated sed rates. RETIC Reviewed date:10/08/2024 08:30:58 AM Interpretation: Performing Lab:[address] [address] Notes/Report: Reticulocytes Absolute 0.058 0.026-0.095 X10*6/ uL Immature Retic Fraction 20.0 3.0-15.9 % Retic HGB Equivalent 23.7 30.0-35.0 pg Reticulocyte Percent 1.1 0.5-1.8 % Ferritin Reviewed date:10/08/2024 08:30:58 AM Interpretation: Performing Lab:[address] [address] Notes/Report: Ferritin 18 10-250 ng/mL Reason For [...] Problem Status W/U Status Risk Notes Problem 49663889 Dysthymic disorder (F34.1) Active confirmed Her depress ion is mild and I will recommend no change in her current medications. Problem 468792150 Acquired hypothyroidism (E03.9) Active confirmed She has been continued on her current dose of levothyroxine without change. Problem 564780912 Vitamin B 12 deficiency (E53.8) Active confirmed A B12 level is not available at this time. She was continued on current therapy and the value will be followed. 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 She has been referred to [facility] for thyroidectomy. This will require cessation of her anticoagulation . Problem 412794666 History of cholecystectomy (Z90.49) Active confirmed Problem 855334309 Thrombophilia (D68.59) Active confirmed She has had no further blood clots or emboli. No change in her regimen was made. Problem 31262333 Iron deficiency anemia, unspecified iron deficiency anemia [...] future. An explanation will be sought. Problem 570735762 Morbid obesity (E66.01) Active confirmed Her body mass index is now 41.We discussed diet and nutrition. I recommended aggressive weight loss. I recommended she consider the weight loss surgery program at [facility]. She has lost 59 pounds since her last visit. Problem 02558686 Adult onset diabetes mellitus with ketoacidosis (E11.10) Active confirmed She has been compliant with her medications, which are prescribed by primary care. 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 It has not affected her life significantly. No change in her regimen as needed. Problem 11932840 Pulmonary embolism, unspecified chronicity, unspecified pulmonary embolism type, unspecified whether acute cor pulmonale present (I26.99) Active confirmed She was breathing comfortably today and has had no further episodes of dizziness or arterial thromboembolism . She had multiple pulmonary emboli/2022.These have caused dyspnea with exertion and she is undergoing a series of pulmonary artery angioplasties at the [facility] the next of which will be in August2023. Vital Signs Heart Rate 96 /min 09/29/2024 Temperature 97.3 degrees Fahrenheit 09/29/2024 Blood pressure diastolic 92 mm Hg 09/29/2024 Height 64 in 10/13/2024 Blood pressure systolic 118 mm Hg 09/29/2024 Weight 243 lbs 10/13/2024 BMI 41.71 kg/m2 10/13/2024 Encounters Encounter Location Date Provider Diagnosis Dario Urbano III, MD [address] [place] [address] [place] [address] 09/29/2024 Dario Urbano Morbid obesity E66.0 1 ; Thrombophilia D68.59 ; Iron deficiency anemia, unspecified iron deficiency anemia type D50.9 ; Dysthymic disorder F34.1 ; Post-cholecystectomy syndrome K91.5 ; Adult onset diabetes mellitus with ketoacidosis E11.10 ; Vitamin B 12 deficiency E53.8 and Acquired hypothyroidism E03.9 Dario Urbano III, MD [address] [place] [address] [place] [address] 10/13/2024 Dario Urbano Morbid obesity E66.0 1 [...] (ICD-10 - E03.9) She says is her button station worker was going to put her on [...] Details Provider Name:Dario Urbano, 02/11/2025 10:15:00 AM, [address] [place] [address] [place], [place], [address], Insurance Providers Payer Name Payer Address Payer Phone Subscriber Number Group Number Insured Name Patient Relationship to Insured Coverage Start Date Coverage End Date [employer] [address] [address] [place] [address] [id number] Domonique Bro Self - patient is the insured MEDICAID [address] [place], [place] [id number] Domonique Bro Self - patient is the insured Medical (General) History Medical History History ICD Code Hyperlipidemia, unspecified hyperlipidem ia type E78.5 Postcholecystectomy syndrome K91.5 Dysmenorrhea N94.6 Morbid obesity E66.01 Dysthymic disorder F34.1 Anemia, unspecified type D64.9 Type 2 diabetes mellitus wit h complication, unspecified whether senior living insulin use E11.8 G6 carpal tunnel syndrome, [...]
--- OUTSIDE RECORDS SUMMARY | 2024-11-23 08:28 | XMS_ITS ---
Author Organization Dario Urbano III, MD Address [address] [place] [address] Care Team Providers Care Crystal Growing Technician Name Role Phone Jacinta ANGULO, [facility] Primary Care Provider Dario Slater [phone] Allergies Allergen (clinical drug ingredient) Drug/Non Drug [...] Provider Diagnosis Dario Urbano III, MD [address] [place] [address] [address] [facility] [address] 10/13/2024 Dario Urbano Morbid obesity E66.0 1 [...] consider the weight loss surgery program at [facility]. She has lost 59 pounds [...] ov Provider Name:Dario Urbano, 02/11/2025 10:15:00 AM, [address] [place] [address] DR, [address], [place], [address], Progress Notes * Domonique SANTILLAN SDOB:1975 (49 yo F)Acc No.[id number]:10/13/2024 Patient:?Domonique SANTILLAN Provider:?Dario Urbano MD :1975???Age:49 Y???Sex:Female D ate:10/13/2024 Address:[address] [place], [place] [id number] Pcp:Deena Workman MD Subjective: * Chief Complaints: * ???Vitamin B12 deficiencyIro n deficiency * HPI: ???:?Telehealth?Location of provider rendering services:?{...} [address] [facility] [address] ?Location of patient:?address listed in demographics for [...] Time - 10/07/2024 09:15 AM)?ValueReference Range?Erythrocyte Sedimentation Dabb98A2-56 - MM/HR Assessment: * Assessment: 1.?Iron deficiency [...] consider the weight loss surgery program at [facility]. She has lost 59 pounds [...] Urbano MD Date:?01/2025 Generated for Satish lai/Nettie/eTransmitting on:?11/23/2024 08:27 AM EDT History and Physical Notes * HPI (History of Present Illness) Category Sub-Category Detail Notes Telehealth Location of [facility] rendering services:: {...} [address] [place] [address] Location of patient:: address listed in demographics [...]
--- NOTE | 2024-11-23 08:45 | MHC.OFFVISCO ---
Intake Intake Visit Reasons: Anticoagulation Allergies lisinopril [LISINOPRIL] Allergy (Severe, Verified 11/23/24 08:40) ANGIOEDEMA dapagliflozin [From FARXIGA] Allergy (Intermediate, Verified 11/23/24 08:40) HIVES liraglutide [From VICTOZA] Allergy (Intermediate, Verified 11/23/24 08:40) RASH metformin [METFORMIN] Allergy (Intermediate, Verified 11/23/24 08:40) GI UPSET erythromycin base [ERYTHROMYCIN BASE] Allergy (Unknown, Verified 11/23/24 08:40) UNKNOWN amitriptyline [AMITRIPTYLINE] Adverse Reaction (Intermediate, Verified 11/23/24 08:40) DRUGGED FEELING Medication List - Last Reconciled 11/23/24 by Linh Mcnulty RN acetaminophen ER 650 mg PO Q6H PRN albuterol sulfate 2.5 mg inhalation Q4H PRN albuterol sulfate 90 mcg/actuation (Ventolin HFA) 2 puffs inhalation Q6H PRN blood sugar diagnostic (FreeStyle Lite Strips) As directed blood-glucose meter (FreeStyle Lite Meter kit) Use daily As directed to check blood sugars compress.stocking,knee,reg,med 15-20 cm dextromethorphan-guaifenesin 60-1,200 mg ER (Mucinex DM) 1 tab PO Q12H 14 days enoxaparin (Lovenox) 100 mg See Protocol subcut Q12H 5 days ferrous gluconate 324 mg PO DAILY levothyroxine 50 mcg PO DAILY metformin 1,000 mg PO BID methylprednisolone (Medrol (Gene)) PO PER PKG DIR 6 days nebulizers As directed Oxygen Home Use As directed rosuvastatin 10 mg PO BEDTIME sertraline 100 mg PO DAILY sildenafil (pulm.hypertension) 20 mg PO TID 30 days tirzepatide (Mounjaro) 10 mg (0.5 mL) subcut QWEEK warfarin 5 mg See Protocol PO DAILY 30 days Nursing Note INR: 2.9- in therapeutic range 2-3 Medications and supplements reviewed- amitriptyline 25mg daily for headache/antidep, has not started yet- will raise inr per micromedex/delayed- pt states pcp aware this med is listed as pt allergy pt with upcoming shingles and tdap vaccines No changes in health, diet, medications, or supplements, Denies any signs and symptoms of bleeding or bruising or clotting. Bleeding, bruising, clotting discussed Nutritional guidance given Dose: 2.5mg x 6, 5mg x 1 F/U INR: 1 week Patient verbalizes understanding of instructions given pt states had dental extraction on 11/17/24 with minimal bleed post op, did not hold warfarin Anti-Coag Initial Assessment Social Hx Patient Tobacco Use Status: Never used Tobacco alcohol intake: former Alcohol intake frequency: does not drink Cardiovascular Hx: HTN Lung Disease HX: DVT/PE Endocrine Hx: Thyroid Disease Musculoskeletal Hx: Arthritis Blood Disorder Hx: Anemia and Hyperlipidemia GI Hx: Ulcers, Diverticulosis and Hemorrhoids Hx: Other Neurological Hx: Migraines/Headaches and Other Cancer HX: No Psych. Illness/Depression: Yes Coding Level of Care Code Est Patient Level 1 Diagnoses Current use of anticoagulant therapy Z79.01 Assessment & Plan Assessment & Plan (1) Current use of anticoagulant therapy: Code(s): Z79.01 - care home (current) use of anticoagulants Category: Medical Medications: New amitriptyline 25 mg PO DAILY Discontinued enoxaparin (Lovenox) to bridge the coumadin Discontinued Reason: Patient no longer taking 100 mg See Protocol subcut Q12H 5 days 10 mL 0RF
[2024-11-23 08:53] LABS: Prothrombin Time Whole Bld POC 34.9 sec (11.1-13.5); ~PT, ~INR - Anti Coag Clinic 2.9 (0.9-1.1)
== END 2024-11-23 09:00 | disposition home or self-care (01) ==
LOC: HO.ACS 08:17
PROVIDERS: PCP Internal Medicine; Visit Provider Internal Medicine
DX: Z79.01 Long term (current) use of anticoagulants (principal)

== ENCOUNTER → 2024-11-23 08:17 | Outpatient (BNVA) | payer OTHER, SELFPAY | PROVIDERS: PCP Internal Medicine; Visit Provider Internal Medicine | DX: I26.99 Other pulmonary embolism without acute cor pulmonale (principal); Z79.01 Long term (current) use of anticoagulants; Z51.81 Encounter for therapeutic drug level monitoring | CPT/HCPCS: 85610; 99211 ==

== ENCOUNTER 2024-11-30 08:32 | Outpatient (AMB) | payer OTHER, SELFPAY ==
[2024-11-30 08:43] LABS: Prothrombin Time Whole Bld POC 45.7 sec (11.1-13.5); ~PT, ~INR - Anti Coag Clinic 3.8 (0.9-1.1)
--- NOTE | 2024-11-30 08:59 | MHC.OFFVISCO ---
Intake Intake Visit Reasons: Anticoagulation Allergies lisinopril [LISINOPRIL] Allergy (Severe, Verified 11/30/24 08:34) ANGIOEDEMA dapagliflozin [From FARXIGA] Allergy (Intermediate, Verified 11/30/24 08:34) HIVES liraglutide [From VICTOZA] Allergy (Intermediate, Verified 11/30/24 08:34) RASH metformin [METFORMIN] Allergy (Intermediate, Verified 11/30/24 08:34) GI UPSET erythromycin base [ERYTHROMYCIN BASE] Allergy (Unknown, Verified 11/30/24 08:34) UNKNOWN amitriptyline [AMITRIPTYLINE] Adverse Reaction (Intermediate, Verified 11/30/24 08:34) DRUGGED FEELING Medication List - Last Reconciled 11/30/24 by Francine Mitchell RN acetaminophen ER 650 mg PO Q6H PRN albuterol sulfate 2.5 mg inhalation Q4H PRN albuterol sulfate 90 mcg/actuation (Ventolin HFA) 2 puffs inhalation Q6H PRN amitriptyline 25 mg PO DAILY blood sugar diagnostic (FreeStyle Lite Strips) As directed blood-glucose meter (FreeStyle Lite Meter kit) Use daily As directed to check blood sugars compress.stocking,knee,reg,med 15-20 cm dextromethorphan-guaifenesin 60-1,200 mg ER (Mucinex DM) 1 tab PO Q12H 14 days ferrous gluconate 324 mg PO DAILY levothyroxine 50 mcg PO DAILY metformin 1,000 mg PO BID methylprednisolone (Medrol (Gene)) PO PER PKG DIR 6 days nebulizers As directed Oxygen Home Use As directed rosuvastatin 10 mg PO BEDTIME sertraline 100 mg PO DAILY sildenafil (pulm.hypertension) 20 mg PO TID 30 days tirzepatide (Mounjaro) 10 mg (0.5 mL) subcut QWEEK warfarin 5 mg See Protocol PO DAILY 30 days Nursing Note INR: 3.8?out of therapeutic range of 2-3 Medications and supplements reviewed Patient status: feels well Medications or supplements: started amitriptyline for sleep and amoxicillan for toothache. Both started 1 week ago and both can raise the INR Diet: usual diet for pt Denies any signs and symptoms of bleeding or clotting or unusual bruising Bleeding, bruising, clotting discussed Nutritional guidance given: to increase greens 2-3 servings over the next week Dose: decrease today's dose from 5mg to 2.5mg then 2.5mg daily F/U INR Date : 1 week?? Patient verbalizing understanding of instructions given. Anti-Coag Initial Assessment Social Hx Patient Tobacco Use Status: Never used Tobacco alcohol intake: former Alcohol intake frequency: does not drink Cardiovascular Hx: HTN Lung Disease HX: DVT/PE Endocrine Hx: Thyroid Disease Musculoskeletal Hx: Arthritis Blood Disorder Hx: Anemia and Hyperlipidemia GI Hx: Ulcers, Diverticulosis and Hemorrhoids Hx: Other Neurological Hx: Migraines/Headaches and Other Cancer HX: No Psych. Illness/Depression: Yes Coding Level of Care Code Est Patient Level 1 Diagnoses Current use of anticoagulant therapy Z79.01 Assessment & Plan Assessment & Plan (1) Current use of anticoagulant therapy: Code(s): Z79.01 - terminal block assembler (current) use of anticoagulants Category: Medical
--- OUTSIDE RECORDS SUMMARY | 2024-11-30 09:05 | XMS_ITS ---
Author Organization Dario Urbano III, MD Address [address] [place] [address] Care Team Providers Care Gas Singer Name Role Phone Jacinta ANGULO, [facility] Primary Care Provider Dario Slater [phone] Allergies Allergen (clinical drug ingredient) Drug/Non Drug [...] Provider Diagnosis Dario Urbano III, MD [address] [place] [address] [place] [address] 09/29/2023 Dario Urbano Morbid obesity E66.0 1 [...] consider the weight loss surgery program at [facility]. She has gained 10 pounds [...] (ICD-10 - E03.9) She says is her automobile damage appraiser was going to put her on thyroid [...] series of pulmonary artery angioplasties at the [facility] the next of which will be [...] V Provider Name:Dario Urbano, 02/11/2025 10:15:00 AM, [address] [place] [address] [address] [place] [address], [place], [address], Progress Notes * Domonique SANTILLAN SDOB:1975 (48 yo F)Acc No.[id number]:09/29/2023 Progress Notes Patient:?Santillan, Domonique S Provider:?Dario Urbano MD :1975???Age:48 Y???Sex:Female D ate:09/29/2023 Address:[address] [place] [address] [place]-[id number] Pcp:Deena Workman MD Subjective: * Chief Complaints: [...] consider the weight loss surgery program at [facility]. She has gained 10 pounds [...] hypothyroidism - E03.9, She says is her automobile damage appraiser was going to put her on thyroid replacement.?8.?Pulmonary embolism, unspecified chronicity, unspecified pulmonary embolism type, unspecified whether acute cor pulmonale present - I26.99, She was breathing comfortably today and has had no further episodes of dizziness or arterial thromboembolism. She had multiple pulmonary emboli/2022.These have caused dyspnea with exertion and she is undergoing a series of pulmonary artery angioplasties at the [facility] the next of which will be [...] Urbano MD Date:?09/09 Generated for Printi ng/Nettie/eTransmitting on:?11/30/2024 09:05 AM EDT History and Physical Notes * HPI (History of Present Illness) Category Sub-Category Detail Notes COVID-19 Screening Questions Have you had any new onset fever, chills, cough, congestion, sore throat, shortness of breath, muscle aches?: No Have you been exposed to the virus withi n the last 10 days?: No Have you travelled internationally in [facility] last 10 days?: No Have you [...]
--- OUTSIDE RECORDS SUMMARY | 2024-11-30 09:05 | XMS_ITS | Patient Health Record ---
Author Organization [facility] Address [address] [place] [address] Care Team Providers Care Portainer Operator Name Role Phone Deena Workman Primary Care Provider Unavailab Dario Holbrook Unavailable [phone] Allergies Allergen (clinical drug ingredient) Drug/Non Drug [...] Status Risk Notes Problem Colon cancer screening (495456203) Colon cancer screening (Z12.11) Active confirmed Problem Irritable bowel syndrome (17537289) Irritable bowel syndrome (K58.9) Active confirmed Problem History of polyp of colon (situation) (721457977) Personal history of colonic polyps (Z86.010) Active confirmed Problem Microcytic anemia (919957242) Microcytic anemia (D50.9) Active confirmed Problem Long-term current use of anticoagulant (341564545) Anticoagulant long-term use (Z79.01) Active confirmed Problem Diverticulosis of colon (511827699) Diverticulosis of colon (K57.30) Active confirmed Vital Signs Blood pressure diastolic 00 mm Hg 10/07/2024 Height 65 in 10/07/2024 Blood pressure systolic 00 mm Hg 10/07/2024 Weight 236.8 lbs 10/07/2024 BMI 39.40 kg/m2 10/07/2024 Encounters Encounter Location Date Provider Diagnosis [facility] [address] [place] [address] 10/07/2024 Dario Ramsey Irritable bowel syndrome K58.9 ; Colon cancer screening Z12.11 ; Personal history of colonic polyps Z86.010 and Anticoagulant long-term use Z79.01 [facility] [address] [place] [address] 10/08/2024 Dario Ramsey Assessments Encounter Date Diagnosis [...] Name:Dario Vu Roxy , 01/17/2025 11:30:00 AM, [address] [place] [address] , [place], [place], [phone], Insurance Providers Payer Name Payer Address Payer Phone Subscriber Number Group Number Insured Name Patient Relationship to Insured Coverage Start Date Coverage End Date [facility] [address] [address] [place], [place] [id number] DOMONIQUE SANTILLAN Self - patient is the insured MEDICAID OF [facility] [address] [place] [address] [id number] DOMONIQUE SANTILLAN Self - patient is the insured Medical (General) History Medical History History ICD Code ERCP with sphincterotomy 10-30-2001 Pulmonary emboli with COVID 10/2020-she describes a two-week hospitalization although did not require intubation. She describes having been left with some respiratory issues for which she is seeing Dr. Land. She also describes some residual brain fog Arthritis Denies NE,CVA NIDDM Anemia from heavy menses--she sees Dr. [...] for removal of pulmo nary cl[place] [facility] Surgical History Surgery Date(Month/Year) CCY 2001 BTL 2001 Bilateral carpal tunnel 2017 Right foot 1999 Right wrist 2021 Partial thyroidectomy for a cancer 2023
--- OUTSIDE RECORDS SUMMARY | 2024-11-30 09:05 | XMS_ITS | Clinical Summary ---
Author Organization [facility] it Address [address] [place] [address] Care Team Providers Care Hairspring I Inspector Name Role Phone Unavailable Primary Care Provider [...] Documents on File Type Date Recorded Patient Sprinkler Repair Technician Expl anation Health Care Decision (hx) 10/31/2020 AD MERCEDES DIRECTIVE
--- OUTSIDE RECORDS SUMMARY | 2024-11-30 09:06 | XMS_ITS ---
Author Organization [facility] Address [address] [place] [address] Care Team Providers Care Seed Sorter Name Role Phone Deena Workman Primary Care Provider UnavailDario Cooper Unavailable [phone] Allergies Allergen (clinical drug ingredient) Drug/Non Drug Allergy documented on EMR Reaction Allergy Type Onset Date Status lisinopril Lisinopril Unknown Drug Allergy Activ e amitriptyline Amitriptyline Unknown Drug Allergy Active dapagliflozin Farxiga Unknown Drug Allergy Act wiley metformin metFORMIN HCl ER Unknown Drug Allergy Active liraglutide Victoza Unknown Drug Allergy Activ e erythromycin Erythromycin Unknown Drug Allergy A ctive REASON FOR VISIT Patient presents today for [...] Problem History of polyp of colon (situation) (295791944) Personal history of colonic polyps (Z86.010) Active confirmed Problem Long-term current use of anticoagulant (285452250) Anticoagulant long-term use (Z79.01) Active confirmed Vital Signs Blood pressure systolic 00 mm Hg 10/07/19 25 Blood pressure diastolic 00 mm Hg 025 Height 65 in 10/07/2024 Weight 236.8 lbs 10/07/2024 BMI 39.40 kg/m2 10/07/2024 Encounters Encounter Location Date Provider Diagnosis [facility] [address] [place] [address] 10/07/2024 Dario Ramsey Irritable bowel syndrome K58.9 [...] and is being followed closely by Dr. Ladn. Given her relatively young age and significant [...] Provider Name:Dario Ramsey , 01/17/2025 11:30:00 AM, [address] [place] [address], [phone], Progress Notes * DOMONIQUE SANTILLANDOB:1975 ([age] yo F)Acc No.[id number]:10/07/2024 Progress Notes Patient:?DOMONIQUE SANTILLAN Provider:?Dario Ramsey MD :1975???Age:49 Y???Sex:Female D ate:10/07/2024 Address:[address] [place], [place] [id number] Pcp:Deena Workman Subjective: * Chief Complaints: * [...] angiography for removal [facility] pulmonary emboli [place] [facility]. She describes that she is followed closely [...] Procedure Codes:?3017F COLOR ECTAL CA SCREEN DOC CSX6221F TOBACCO NON-HMEKT2776 BP SCR NOT PRFRM REC REASON NOS * Preventive Medicine:? ??Counseling:?Care goal follow-up plan:?Above Normal BMI Follow-up?Giving encouragement to exercise,?BMI management provided?Yes.? * Follow Up:?prn * * Sign off status: Completed true * Provider:?Dario Ramsey MD Date:? 025 Generated for Satish lai/Nettie/eTransmitting on:?11/30/2024 09:05 AM EDT History and Physical [...] angiography for removal of pulmonary emboli at [facility]. She describes that she is followed closely [...]
--- OUTSIDE RECORDS SUMMARY | 2024-11-30 09:06 | XMS_ITS ---
Author Organization Dario Urbano III, MD Address [address] [place] [address] Care Team Providers Care Senior Electrical Engineer Name Role Phone Jacinta ANGULO, [facility] Primary Care Provider Dario Slater Unavailable [phone] Allergies Allergen (clinical drug ingredient) Drug/Non Drug [...] Date Provider Diagnosis Dario Urbano III, MD [address] [place] [address] [place] [address] 09/29/2024 Dario Urbano Morbid obesity E66.0 1 [...] consider the weight loss surgery program at [facility]. She has lost 59 pounds since her [...] (ICD-10 - E03.9) She says is her master certified rv technician was going to put her on thyroid [...] Follow Up: 2 Weeks, Reason: Telehealth Provider Name:Daroi Urbano, 02/11/2025 10:15:00 AM, [address] [place] [address] [place], [place], [address], Progress Notes * Domonique SANTILLAN SDOB:1975 (49 yo F)Acc No.[id number]:09/29/2024 Progress Notes Patient:?Domonique SANTILLAN S Provider:?Dario Urbano MD :1975???Age:49 Y???Sex:Female D ate:09/29/2024 Address:[address] [place], [place] [address]-[id number] Pcp:Deena Workman MD Subjective: * Chief Complaints: [...] consider the weight loss surgery program at [facility]. She has lost 59 pounds since her [...] hypothyroidism - E03.9???Notes :She says is her master certified rv technician was going to put her on thyroid [...] Urbano MD Date:?09/09 Generated for Satish lai/Nettie/eTransmitting on:?11/30/2024 09:05 AM [...]
--- OUTSIDE RECORDS SUMMARY | 2024-11-30 09:06 | XMS_ITS | Patient Health Record ---
Author Organization Dario Urbano III, MD Address [address] [place] [address] Care Team Providers Care Lighting Technician Name Role Phone Jacinta ANGULO, [facility] Primary Care Provider Dario Slater [phone] Allergies Allergen (clinical drug ingredient) Drug/Non Drug [...] ff Reviewed date:10/08/2024 08:30:57 AM Interpretation: Performing Lab:[facility], [address] [place] [address] Notes/Report: White Blood Count 9.3 4.8-10.8 X10*3/uL [...] te Reviewed date:10/08/2024 08:30:58 AM Interpretation: Performing Lab:[address] [address] Notes/Report: Erythrocyte Sedimentation Rate 23 0-20 MM/HR Patients with polycythemia and many hemoglobin abnormalities may have depressed sed rates whereas patients with anemia may have elevated sed rates. RETIC Reviewed date:10/08/2024 08:30:58 AM Interpretation: Performing Lab:[address] [address] Notes/Report: Reticulocytes Absolute 0.058 0.026-0.095 X10*6/ uL Immature Retic Fraction 20.0 3.0-15.9 % Retic HGB Equivalent 23.7 30.0-35.0 pg Reticulocyte Percent 1.1 0.5-1.8 % Ferritin Reviewed date:10/08/2024 08:30:58 AM Interpretation: Performing Lab:[address] [address] Notes/Report: Ferritin 18 10-250 ng/mL Reason For [...] Problem Status W/U Status Risk Notes Problem 33616344 Dysthymic disorder (F34.1) Active confirmed Her depress ion is mild and I will recommend no change in her current medications. Problem 183566007 Acquired hypothyroidism (E03.9) Active confirmed She has been continued on her current dose of levothyroxine without change. Problem 930255386 Vitamin B 12 deficiency (E53.8) Active confirmed A B12 level is not available at this time. She was continued on current therapy and the value will be followed. 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 She has been referred to [facility] for thyroidectomy. This will require cessation of her anticoagulation . Problem 794435552 History of cholecystectomy (Z90.49) Active confirmed Problem 925640795 Thrombophilia (D68.59) Active confirmed She has had no further blood clots or emboli. No change in her regimen was made. Problem 71210208 Iron deficiency anemia, unspecified iron deficiency anemia [...] future. An explanation will be sought. Problem 054306671 Morbid obesity (E66.01) Active confirmed Her body mass index is now 41.We discussed diet and nutrition. I recommended aggressive weight loss. I recommended she consider the weight loss surgery program at [facility]. She has lost 59 pounds since her last visit. Problem 81467309 Adult onset diabetes mellitus with ketoacidosis (E11.10) Active confirmed She has been compliant with her medications, which are prescribed by primary care. 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 It has not affected her life significantly. No change in her regimen as needed. Problem 30510487 Pulmonary embolism, unspecified chronicity, unspecified pulmonary embolism type, unspecified whether acute cor pulmonale present (I26.99) Active confirmed She was breathing comfortably today and has had no further episodes of dizziness or arterial thromboembolism . She had multiple pulmonary emboli/2022.These have caused dyspnea with exertion and she is undergoing a series of pulmonary artery angioplasties at the [facility] the next of which will be in August2023. Vital Signs Heart Rate 96 /min 09/29/2024 Temperature 97.3 degrees Fahrenheit 09/29/2024 Blood pressure diastolic 92 mm Hg 09/29/2024 Height 64 in 10/13/2024 Blood pressure systolic 118 mm Hg 09/29/2024 Weight 243 lbs 10/13/2024 BMI 41.71 kg/m2 10/13/2024 Encounters Encounter Location Date Provider Diagnosis Dario Urbano III, MD [address] [place] [address] [place] [address] 09/29/2024 Dario Urbano Morbid obesity E66.0 1 ; Thrombophilia D68.59 ; Iron deficiency anemia, unspecified iron deficiency anemia type D50.9 ; Dysthymic disorder F34.1 ; Post-cholecystectomy syndrome K91.5 ; Adult onset diabetes mellitus with ketoacidosis E11.10 ; Vitamin B 12 deficiency E53.8 and Acquired hypothyroidism E03.9 Dario Urbano III, MD [address] [place] [address] [place] [address] 10/13/2024 Dario Urbano Morbid obesity E66.0 1 [...] consider the weight loss surgery program at [facility]. She has lost 59 pounds [...] consider the weight loss surgery program at [facility]. She has lost 59 pounds [...] (ICD-10 - E03.9) She says is her replanter was going to put her on thyroid [...] Details Provider Name:Dario Urbano, 02/11/2025 10:15:00 AM, [address] [place] [address] [place], [place], [address], Insurance Providers Payer Name Payer Address Payer Phone Subscriber Number Group Number Insured Name Patient Relationship to Insured Coverage Start Date Coverage End Date [employer] [address] [address] [place] [address] [id number] Domonique Bro Self - patient is the insured MEDICAID [place] [address] [place], [place] [phone] [id number] Lesly Brona Self - patient is the insured Medical (General) History Medical History History ICD Code Hyperlipidemia, unspecified hyperlipidem ia type E78.5 Postcholecystectomy syndrome K91.5 Dysmenorrhea N94.6 Morbid obesity E66.01 Dysthymic disorder F34.1 Anemia, unspecified type D64.9 Type 2 diabetes mellitus wit h complication, unspecified whether group home insulin use E11.8 G6 carpal tunnel syndrome, [...]
--- OUTSIDE RECORDS SUMMARY | 2024-11-30 09:06 | XMS_ITS ---
Author Organization [facility] Address [address] [place] [address] Care Team Providers Care Physicist Astrophysics Name Role Phone Deena Workman Primary Care Provider Unavailab Dario Holbrook [phone] REASON FOR VISIT PAT appt Encounters Encounter Location Date Provider Diagnosis [facility] [address] [place] [address] 10/08/2024 Dario Ramsey Plan Of Treatment Next Appt Details Provider Name:Dario Ramsey , 01/17/2025 11:30:00 AM, [address] [place] [address] , [place], [place], [phone], Progress Notes * TYRELLCHAVEZKWAMEDOB:1975 ([age] yo F)Acc No.[id number]:10/08/2024 Patient:?KASANDRA SANTILLAN :1975???Age:49 Y???Sex:Female Address:[address] [place] [address] [facility] [address] * true * Date:? Generated for Printi ng/Fachavezg/eTransmitting on:?11/30/2024 09:06 AM EDT
--- OUTSIDE RECORDS SUMMARY | 2024-11-30 09:07 | XMS_ITS ---
Author Organization Dario Urbano III, MD Address [address] [place] [address] Care Team Providers Care Principal Statistical Scientist Name Role Phone Jacinta ANGULO, [facility] Primary Care Provider Dario Slaetr [facility] [phone] Allergies Allergen (clinical drug ingredient) Drug/Non Drug [...] Date Provider Diagnosis Dario Urbano III, MD [address] [place] [address] [address] [facility] [place] [address] 10/13/2024 Dario Urbano Morbid obesity E66.0 1 [...] consider the weight loss surgery program at [facility]. She has lost 59 pounds since her [...] ov Provider Name:Dario Urbano, 02/11/2025 10:15:00 AM, [address] [place] [address] DR, [address], [place], [address], Progress Notes * Domonique SANTILLAN SDOB:1975 (49 yo F)Acc No.[id number]:10/13/2024 Patient:?Domonique SANTILLAN Provider:?Dario Urbano MD :1975???Age:49 Y???Sex:Female D ate:10/13/2024 Address:[address] [place], [place] [address] Pcp:Deena Workman MD Subjective: * Chief Complaints: * ???Vitamin B12 deficiencyIro n deficiency * HPI: ???:?Telehealth?Location of provider rendering services:?{...} [address] [facility] [address] ?Location of patient:?address listed in demographics for [...] Time - 10/07/2024 09:15 AM)?ValueReference Range?Erythrocyte Sedimentation [id number] - MM/HR Assessment: * Assessment: 1.?Iron deficiency [...] consider the weight loss surgery program at [facility]. She has lost 59 pounds since her [...] Urbano MD Date:?01/2025 Generated for Satish lai/Nettie/eTransmitting on:?11/30/2024 09:06 AM EDT History and Physical Notes * HPI (History of Present Illness) Category Sub-Category Detail Notes Telehealth Location of [facility] rendering services:: {...} [address] [place] [address] Location of patient:: address listed in demographics [...]
== END 2024-11-30 09:04 | disposition home or self-care (01) ==
LOC: HO.ACS 08:32
PROVIDERS: PCP Internal Medicine; Visit Provider Internal Medicine
DX: Z79.01 Long term (current) use of anticoagulants (principal)

== ENCOUNTER → 2024-11-30 08:32 | Outpatient (BNVA) | payer OTHER, SELFPAY | PROVIDERS: PCP Internal Medicine; Visit Provider Internal Medicine | DX: I26.99 Other pulmonary embolism without acute cor pulmonale (principal); Z79.01 Long term (current) use of anticoagulants; Z51.81 Encounter for therapeutic drug level monitoring | CPT/HCPCS: 85610; 99211 ==

== ENCOUNTER 2024-12-07 08:30 | Outpatient (AMB) | payer OTHER, SELFPAY ==
--- NOTE | 2024-12-07 08:43 | MHC.OFFVISCO ---
Intake Intake Visit Reasons: Anticoagulation Allergies lisinopril [LISINOPRIL] Allergy (Severe, Verified 12/07/24 08:32) ANGIOEDEMA dapagliflozin [From FARXIGA] Allergy (Intermediate, Verified 12/07/24 08:32) HIVES liraglutide [From VICTOZA] Allergy (Intermediate, Verified 12/07/24 08:32) RASH metformin [METFORMIN] Allergy (Intermediate, Verified 12/07/24 08:32) GI UPSET erythromycin base [ERYTHROMYCIN BASE] Allergy (Unknown, Verified 12/07/24 08:32) UNKNOWN amitriptyline [AMITRIPTYLINE] Adverse Reaction (Intermediate, Verified 12/07/24 08:32) DRUGGED FEELING Medication List - Last Reconciled 12/07/24 by Francine Mitchell RN acetaminophen ER 650 mg PO Q6H PRN albuterol sulfate 2.5 mg inhalation Q4H PRN albuterol sulfate 90 mcg/actuation (Ventolin HFA) 2 puffs inhalation Q6H PRN amitriptyline 25 mg PO DAILY blood sugar diagnostic (FreeStyle Lite Strips) As directed blood-glucose meter (FreeStyle Lite Meter kit) Use daily As directed to check blood sugars compress.stocking,knee,reg,med 15-20 cm dextromethorphan-guaifenesin 60-1,200 mg ER (Mucinex DM) 1 tab PO Q12H 14 days ferrous gluconate 324 mg PO DAILY levothyroxine 50 mcg PO DAILY metformin 1,000 mg PO BID methylprednisolone (Medrol (Gene)) PO PER PKG DIR 6 days nebulizers As directed Oxygen Home Use As directed rosuvastatin 10 mg PO BEDTIME sertraline 100 mg PO DAILY sildenafil (pulm.hypertension) 20 mg PO TID 30 days tirzepatide (Mounjaro) 10 mg (0.5 mL) subcut QWEEK warfarin 5 mg See Protocol PO DAILY 30 days Nursing Note INR: 2.6 in therapeutic range of 2-3 Medications and supplements reviewed No changes in health, diet, medications, or supplements, Denies any signs and symptoms of bleeding or bruising or clotting. Bleeding, bruising, clotting discussed Nutritional guidance given Dose: 2.5mg X 7 days F/U INR: 1 week Patient verbalizes understanding of instructions given . Anti-Coag Initial Assessment Social Hx Patient Tobacco Use Status: Never used Tobacco alcohol intake: former Alcohol intake frequency: does not drink Cardiovascular Hx: HTN Lung Disease HX: DVT/PE Endocrine Hx: Thyroid Disease Musculoskeletal Hx: Arthritis Blood Disorder Hx: Anemia and Hyperlipidemia GI Hx: Ulcers, Diverticulosis and Hemorrhoids Hx: Other Neurological Hx: Migraines/Headaches and Other Cancer HX: No Psych. Illness/Depression: Yes Coding Level of Care Code Est Patient Level 1 Diagnoses Current use of anticoagulant therapy Z79.01 Results AMB INR Fingerstick AMB INR Fingerstick 2.6 Last Edit by Francine Mitchell RN on 12/07/24 08:39 interface delay Assessment & Plan Assessment & Plan (1) Current use of anticoagulant therapy: Code(s): Z79.01 - salvage determiner (current) use of anticoagulants Category: Medical
--- OUTSIDE RECORDS SUMMARY | 2024-12-07 08:44 | XMS_ITS | Patient Health Record ---
Author Organization [facility] Address [address] [place] [address] Care Team Providers Care Barker Peeler Name Role Phone Deena Workman Primary Care Provider Unavailab Dario Holbrook Unavailable [phone] Allergies Allergen (clinical drug ingredient) Drug/Non Drug [...] Status Risk Notes Problem Colon cancer screening (094940306) Colon cancer screening (Z12.11) Active confirmed Problem Irritable bowel syndrome (39075124) Irritable bowel syndrome (K58.9) Active confirmed Problem History of polyp of colon (situation) (343187526) Personal history of colonic polyps (Z86.010) Active confirmed Problem Microcytic anemia (269057464) Microcytic anemia (D50.9) Active confirmed Problem Long-term current use of anticoagulant (452292272) Anticoagulant long-term use (Z79.01) Active confirmed Problem Diverticulosis of colon (732739460) Diverticulosis of colon (K57.30) Active confirmed Vital Signs Blood pressure diastolic 00 mm Hg 10/07/2024 Height 65 in 10/07/2024 Blood pressure systolic 00 mm Hg 10/07/2024 Weight 236.8 lbs 10/07/2024 BMI 39.40 kg/m2 10/07/2024 Encounters Encounter Location Date Provider Diagnosis [facility] [address] [place] [address] 10/07/2024 Dario Ramsey Irritable bowel syndrome K58.9 ; Colon cancer screening Z12.11 ; Personal history of colonic polyps Z86.010 and Anticoagulant long-term use Z79.01 [facility] [address] [place] [address] 10/08/2024 Dario Ramsey Assessments Encounter Date Diagnosis [...] Name:Dario Vu Roxy , 01/17/2025 11:30:00 AM, [address] [place] [address] , [place], [place], [phone], Insurance Providers Payer Name Payer Address Payer Phone Subscriber Number Group Number Insured Name Patient Relationship to Insured Coverage Start Date Coverage End Date [facility] [address] [address] [place], [place] [id number] DOMONIQUE SANTILLAN Self - patient is the insured MEDICAID OF [facility] [address] [place] [address] [id number] DOMONIQUE SANTILLAN Self - patient is the insured Medical (General) History Medical History History ICD Code ERCP with sphincterotomy 10-30-2001 Pulmonary emboli with COVID 10/2020-she describes a two-week hospitalization although did not require intubation. She describes having been left with some respiratory issues for which she is seeing Dr. Land. She also describes some residual brain fog Arthritis Denies [place],CVA NIDDM Anemia from heavy menses--she sees Dr. [...] for removal of pulmo nary clots at [facility] Surgical History Surgery Date(Month/Year) CCY 2001 BTL 2001 Bilateral carpal tunnel 2017 Right foot 1999 Right wrist 2021 Partial thyroidectomy for a cancer 2023
--- OUTSIDE RECORDS SUMMARY | 2024-12-07 08:44 | XMS_ITS ---
Author Organization Dario Urbano III, MD Address [address] [place] [address] Care Team Providers Care Toy Maker Name Role Phone Jacinta ANGULO, [facility] Primary Care Provider Dario Slater [phone] Allergies Allergen (clinical drug ingredient) Drug/Non Drug Allergy documented on EMR Reaction Allergy Type Onset Date Status liraglutide Victoza NAUSEA Drug Allergy Activ e metformin Metformin HCl GI UPSET Drug Allergy Act wiley lisinopril Lisinopril ANGIOEDEMA Drug Allergy Acti ve erythromycin Erythromycin HIVES Drug Allergy A ctive amitriptyline Amitriptyline HCl DRUGGED FEELING Drug Allergy Active dapagliflozin Farxiga UTI Drug Allergy Act wiley REASON FOR VISIT Vitamin B12 deficiency, Iron [...] Date Provider Diagnosis Dario Urbano III, MD [address] [place] [address] [place] [address] 09/29/2023 Dario Urbano Morbid obesity E66.0 1 [...] consider the weight loss surgery program at [facility]. She has gained 10 pounds [...] (ICD-10 - E03.9) She says is her coper hand was going to put her on thyroid [...] of pulmonary artery angioplasties at the [facility] the next of which will be [...] V Provider Name:Dario Urbano, 02/11/2025 10:15:00 AM, [address] [place] [address] [address] [address], [place], [address], Progress Notes * Domonique SANTILLAN SDOB:1975 (48 yo F)Acc No.[id number]:09/29/2023 Progress Notes Patient:?Santillan, Domonique S Provider:?Dario Urbano MD :1975???Age:48 Y???Sex:Female D ate:09/29/2023 Address:[address] [place] [address] [place] PH-[id number] Pcp:Deena Workman MD Subjective: * Chief Complaints: [...] consider the weight loss surgery program at [facility]. She has gained 10 pounds [...] hypothyroidism - E03.9, She says is her coper hand was going to put her on thyroid replacement.?8.?Pulmonary embolism, unspecified chronicity, unspecified pulmonary embolism type, unspecified whether acute cor pulmonale present - I26.99, She was breathing comfortably today and has had no further episodes of dizziness or arterial thromboembolism. She had multiple pulmonary emboli/2022.These have caused dyspnea with exertion and she is undergoing a series of pulmonary artery angioplasties at the [facility] the next of which will be [...] Urbano MD Date:?09/09 Generated for Printi ng/Nettie/eTransmitting on:?12/07/2024 08:44 AM EDT History and Physical Notes * HPI (History of Present Illness) Category Sub-Category Detail Notes COVID-19 Screening Questions Have you had any new onset fever, chills, cough, congestion, sore throat, shortness of breath, muscle aches?: No Have you been exposed to the virus withi n the last 10 days?: No Have you travelled internationally in [facility] last 10 days?: No Have you [...]
--- OUTSIDE RECORDS SUMMARY | 2024-12-07 08:44 | XMS_ITS | Clinical Summary ---
Author Organization [facility] it Address [address] [place] [address] Care Team Providers Care Fabric And Textile Factory Worker Name Role Phone Unavailable Primary Care Provider [...] Documents on File Type Date Recorded Patient Accounting Reconciliation Clerk Expl anation Health Care Decision (hx) 10/31/2020 AD MERCEDES DIRECTIVE
--- OUTSIDE RECORDS SUMMARY | 2024-12-07 08:45 | XMS_ITS ---
Author Organization [facility] Address [address] [place] [address] Care Team Providers Care Private Equity Associate Name Role Phone Deena Workman Primary Care Provider UnavailDario Cooper Unavailable [phone] Allergies Allergen (clinical drug ingredient) Drug/Non Drug [...] Problem History of polyp of colon (situation) (913695374) Personal history of colonic polyps (Z86.010) Active confirmed Problem Long-term current use of anticoagulant (110853414) Anticoagulant long-term use (Z79.01) Active confirmed Vital Signs Blood pressure systolic 00 mm Hg 10/07/19 25 Blood pressure diastolic 00 mm Hg 025 Height 65 in 10/07/2024 Weight 236.8 lbs 10/07/2024 BMI 39.40 kg/m2 10/07/2024 Encounters Encounter Location Date Provider Diagnosis [facility] [address] [place] [address] 10/07/2024 Dario Ramsey Irritable bowel syndrome K58.9 [...] Provider Name:Dario Ramsey , 01/17/2025 11:30:00 AM, [address] [place] [address], [phone], Progress Notes * DOMONIQUE SANTILLANDOB:1975 ([age] yo F)Acc No.[id number]:10/07/2024 Progress Notes Patient:?DOMONIQUE SANTILLAN Provider:?Dario Ramsey MD :1975???Age:49 Y???Sex:Female D ate:10/07/2024 Address:[address] [place] [id number] Pcp:Deena Workman Subjective: * Chief Complaints: * [...] angiography for removal [place] pulmonary emboli [place] [facility] She describes that she is followed closely [...] Procedure Codes:?3017F COLOR ECTAL CA SCREEN DOC CEP1539A TOBACCO NON-SOMQF2596 BP SCR NOT PRFRM REC REASON NOS * Preventive Medicine:? ??Counseling:?Care goal follow-up plan:?Above Normal BMI Follow-up?Giving encouragement to exercise,?BMI management provided?Yes.? * Follow Up:?prn * * Sign off status: Completed true * Provider:?Dario Ramsey MD Date:? 025 Generated for Satish lai/Nettie/eTransmitting on:?12/07/2024 08:44 AM EDT History and Physical [...] angiography for removal of pulmonary emboli at [facility]. She describes that she is followed closely [...]
--- OUTSIDE RECORDS SUMMARY | 2024-12-07 08:45 | XMS_ITS ---
Author Organization [facility] Address [address] [place] [address] Care Team Providers Care Yoker Machine Operator Name Role Phone Deena Workman Primary Care Provider Unavailab Dario Holbrook [phone] REASON FOR VISIT PAT appt Encounters Encounter Location Date Provider Diagnosis [facility] [address] [place] [address] 10/08/2024 Dario Ramsey Plan Of Treatment Next Appt Details Provider Name:Dario Ramsey , 01/17/2025 11:30:00 AM, [address] [place] [address] , [place], [place], [phone], Progress Notes * TYRELLCHAVEZKWAMEDOB:1975 ([age] yo F)Acc No.[id number]:10/08/2024 Patient:?KASANDRA SANTILLAN :1975???Age:49 Y???Sex:Female Address:[address] [place] [address] [facility] [place] [address] * true * Date:? Generated for Printi ng/Fachavezg/eTransmitting on:?12/07/2024 08:45 AM EDT
--- OUTSIDE RECORDS SUMMARY | 2024-12-07 08:45 | XMS_ITS ---
Author Organization Dario Urbano III, MD Address [address] [place] [address] Care Team Providers Care Stripper Machine Operator Name Role Phone Jacinta ANGULO, [facility] Primary Care Provider Dario Slater Unavailable [phone] Allergies Allergen (clinical drug ingredient) Drug/Non Drug [...] Date Provider Diagnosis Dario Urbano III, MD [address] [place] [address] [place] [address] 09/29/2024 Dario Urbano Morbid obesity E66.0 1 [...] (ICD-10 - E03.9) She says is her corporate tax manager was going to put her on [...] Telehealth Provider Name:Dario Urbano, 02/11/2025 10:15:00 AM, [address] [place] [address] [place], [place], [address], Progress Notes * Domonique SANTILLAN SDOB:1975 (49 yo F)Acc No.[id number]:09/29/2024 Progress Notes Patient:?Domonique SANTILLAN S Provider:?Dario Urbano MD :1975???Age:49 Y???Sex:Female D ate:09/29/2024 Address:[address] [place], [place] [address]COL[place]E DI-[id number] Pcp:Deena Workman MD Subjective: * Chief Complaints: [...] hypothyroidism - E03.9???Notes :She says is her corporate tax manager was going to put her on [...] Urbano MD Date:?09/09 Generated for Satish lai/Nettie/eTransmitting on:?12/07/2024 08:44 AM [...]
--- OUTSIDE RECORDS SUMMARY | 2024-12-07 08:46 | XMS_ITS ---
Author Organization Dario Urbano III, MD Address [address] [place] [address] Care Team Providers Care Chain Link Fence Installer Name Role Phone Jacinta ANGULO, [facility] Primary Care Provider Dario Slater [phone] Allergies Allergen (clinical drug ingredient) Drug/Non Drug [...] Date Provider Diagnosis Dario Urbano III, MD [address] [place] [address] [address] [facility] [address] 10/13/2024 Dario Urbano Morbid obesity E66.0 1 [...] consider the weight loss surgery program at [facility]. She has lost 59 pounds since [...] ov Provider Name:Dario Urbano, 02/11/2025 10:15:00 AM, [address] [place] [address] [address], [address], [place], [address], Progress Notes * Domonique SANTILLAN SDOB:1975 (49 yo F)Acc No.[id number]:10/13/2024 Patient:?Domonique SANTILLAN Provider:?Dario Urbano MD :1975???Age:49 Y???Sex:Female D ate:10/13/2024 Address:[address] [place], [place] [id number] Pcp:Deena Workman MD Subjective: * Chief Complaints: * ???Vitamin B12 deficiencyIro n deficiency * HPI: ???:?Telehealth?Location of provider rendering services:?{...} [address] [facility] [address] ?Location of patient:?address listed in demographics for [...] Time - 10/07/2024 09:15 AM)?ValueReference Range?Erythrocyte Sedimentation [id number] - MM/HR Assessment: * Assessment: 1.?Iron deficiency [...] consider the weight loss surgery program at [facility]. She has lost 59 pounds since [...] week.? * Follow Up:?4 Months, February (Elena freeamn: ov) * Images: * Sign off status: Completed true * Provider:?Dario Urbano MD Date:?01/2025 Generated for Satish lai/Nettie/eTransmitting on:?12/07/2024 08:45 AM EDT History and Physical Notes * HPI (History of Present Illness) Category Sub-Category Detail Notes Telehealth Location of [facility] rendering services:: {...} [address] [place] [address] Location of patient:: address listed in demographics [...]
[2024-12-07 08:49] LABS: Prothrombin Time Whole Bld POC 30.7 sec (11.1-13.5); ~PT, ~INR - Anti Coag Clinic 2.6 (0.9-1.1)
== END 2024-12-07 08:46 | disposition home or self-care (01) ==
LOC: HO.ACS 08:30
PROVIDERS: PCP Internal Medicine; Visit Provider Internal Medicine Medical Oncology
DX: Z79.01 Long term (current) use of anticoagulants (principal)

== ENCOUNTER → 2024-12-07 08:30 | Outpatient (BNVA) | payer OTHER, SELFPAY | PROVIDERS: PCP Internal Medicine; Visit Provider Internal Medicine Medical Oncology | DX: I26.99 Other pulmonary embolism without acute cor pulmonale (principal); Z79.01 Long term (current) use of anticoagulants; Z51.81 Encounter for therapeutic drug level monitoring | CPT/HCPCS: 85610; 99211 ==

== ENCOUNTER → 2024-12-14 08:05 | Outpatient (BNVA) | payer OTHER, SELFPAY | PROVIDERS: PCP Internal Medicine; Visit Provider Internal Medicine Medical Oncology | DX: I26.99 Other pulmonary embolism without acute cor pulmonale (principal); Z79.01 Long term (current) use of anticoagulants; Z51.81 Encounter for therapeutic drug level monitoring | CPT/HCPCS: 85610; 99211 ==

== ENCOUNTER 2024-12-15 12:39 | Outpatient (REF) | payer OTHER, SELFPAY ==
--- NOTE | ~2024-12-15 | US_ITS ---
EXAMINATION: US TRIPLEX LOWER EXTREMITY, BILATERAL CLINICAL INFORMATION: Lower extremity edema, localized. COMPARISON: 07/14/2024, 02/12/2024. TECHNIQUE: Color-flow triplex imaging with spectral analysis and compression Doppler were performed on the bilateral lower extremities. FINDINGS: Respiratory variation, normal compression and augmented flow are noted throughout the bilateral lower extremities. The visualized common femoral vein, superficial femoral vein, profunda femoral vein, popliteal vein and midcalf peroneal and posterior tibial venous segments show no evidence of deep venous thrombosis bilaterally. There is no Zelaya's cyst. US/US venous duplex LE BI IMPRESSION: No evidence of deep venous thrombosis involving the bilateral lower extremities. Electronically signed by: Constantin Gilmore MD 12/15/2024 01:49 PM EDT
--- OUTSIDE RECORDS SUMMARY | 2024-12-15 14:37 | XMS_ITS ---
Author Organization [facility] Address [address] [place] [address] Care Team Providers Care Assistant Chief Engineer Name Role Phone Deena Workman Primary Care Provider UnavailDario Cooper Unavailable [phone] Allergies Allergen (clinical drug ingredient) Drug/Non Drug [...] Problem History of polyp of colon (situation) (152369717) Personal history of colonic polyps (Z86.010) Active confirmed Problem Long-term current use of anticoagulant (199440695) Anticoagulant long-term use (Z79.01) Active confirmed Vital Signs Blood pressure systolic 00 mm Hg 10/07/19 25 Blood pressure diastolic 00 mm Hg 025 Height 65 in 10/07/2024 Weight 236.8 lbs 10/07/2024 BMI 39.40 kg/m2 10/07/2024 Encounters Encounter Location Date Provider Diagnosis [facility] [address] [place] [address] 10/07/2024 Dario Ramsey Irritable bowel syndrome K58.9 [...] THE COLONOSCOPY AND USE LOVENOX PER DR. LADN'S INSTRUCTIONS STOP IRON FOR 1 WEEK BEFORE THE COLONOSCOPY We will need clearance from Dr. Land for the Anesthesia and Colonoscopy Future Test Test Name Order Date COLONOSCOPY 10/07/2024 Next Appt Details Follow Up: prn, Reason: Provider Name:Dario Ramsey , 01/17/2025 11:30:00 AM, [address] [place] [address], [phone], Progress Notes * DOMONIQUE SANTILLANDOB:1975 ([age] yo F)Acc No.[id number]:10/07/2024 Progress Notes Patient:?DOMONIQUE SANTILLAN Provider:?Dario Ramsey MD :1975???Age:49 Y???Sex:Female D ate:10/07/2024 Address:[address] [place], [place] [address] Pcp:Deena Workman Subjective: * Chief Complaints: * [...] angiography [place] [facility] She describes that she is followed closely [...] Procedure Codes:?3017F COLOR ECTAL CA SCREEN DOC [id number] TOBACCO NON-GSNHE4057 BP SCR NOT PRFRM REC REASON NOS * Preventive Medicine:? ??Counseling:?Care goal follow-up plan:?Above Normal BMI Follow-up?Giving encouragement to exercise,?BMI management provided?Yes.? * Follow Up:?prn * * Sign off status: Completed true * Provider:?Dario Ramsey MD Date:? 025 Generated for Satish lai/Nettie/Elmirasmitting on:?12/15/2024 02:37 PM EDT History and Physical Notes * HPI [...] angiography for removal of pulmonary emboli [place] [facility]. She describes that she is followed closely [...]
--- OUTSIDE RECORDS SUMMARY | 2024-12-15 14:37 | XMS_ITS | Clinical Summary ---
Author Organization [facility] it Address [address] [place] [address] Care Team Providers Care Insecticide Mixer Name Role Phone Unavailable Primary Care Provider [...] age to complete this topic Meningococcal B Vaccine Aged Out No l onger eligible based on patient's age to complete [...] Documents on File Type Date Recorded Patient Daily Sales Audit Clerk Expl anation Health Care Decision (hx) 10/31/2020 AD MERCEDES DIRECTIVE
--- OUTSIDE RECORDS SUMMARY | 2024-12-15 14:37 | XMS_ITS ---
Author Organization Dario Ubrano III, MD Address [address] [place] [address] Care Team Providers Care Medical Insurance Collector Name Role Phone Jacinta ANGULO, [facility] Primary Care Provider Dario Slater Unavailable [phone] Allergies Allergen (clinical drug ingredient) Drug/Non Drug [...] Provider Diagnosis Dario Urbano III, MD [address] [place] [address] [place] [address] 09/29/2024 Dario Urbano Morbid obesity E66.0 1 [...] consider the weight loss surgery program at [facility]. 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 is her resource program teacher was going to put her on thyroid [...] Provider Name:Dario Urbano, 02/11/2025 10:15:00 AM, [address] [place] [address] [place], [place], [address], Progress Notes * Domonique SANTILLAN SDOB:1975 (49 yo F)Acc No.[id number]:09/29/2024 Progress Notes Patient:?Domonique SANTILLAN S Provider:?Dario Urbano MD :1975???Age:49 Y???Sex:Female D ate:09/29/2024 Address:[address] [place], [place] [address] CC-[address] Pcp:Deena Workman MD Subjective: * Chief Complaints: [...] consider the weight loss surgery program at [facility]. She has lost 59 pounds since [...] hypothyroidism - E03.9???Notes :She says is her resource program teacher was going to put her on thyroid [...] Urbano MD Date:?09/09 Generated for Satish lai/Nettie/eTransmitting on:?12/15/2024 02:37 PM EDT History and Physical [...]
--- OUTSIDE RECORDS SUMMARY | 2024-12-15 14:37 | XMS_ITS ---
Author Organization Dario Urbano III, MD Address [address] [place] [address] Care Team Providers Care Photoengraving Proofer Apprentice Name Role Phone Jacinta ANGULO, [facility] Primary Care Provider Dario Slater [phone] Allergies Allergen (clinical drug ingredient) Drug/Non Drug [...] Date Provider Diagnosis Dario Urbano III, MD [address] [place] [address] [place] [address] 09/29/2023 Dario Urbano Morbid obesity E66.0 1 [...] consider the weight loss surgery program at [facility]. She has gained 10 pounds since her [...] (ICD-10 - E03.9) She says is her extrusion machine operator was going to put her [...] series of pulmonary artery angioplasties at the [facility] the next of which will be [...] V Provider Name:Dario Urbano, 02/11/2025 10:15:00 AM, [address] [place] [address] [address] [address], [place], [address], Progress Notes * Domonique SANTILLAN SDOB:1975 (48 yo F)Acc No.[id number]:09/29/2023 Progress Notes Patient:?Santillan, Domonique S Provider:?Dario Urbano MD :1975???Age:48 Y???Sex:Female D ate:09/29/2023 Address:[address] [place] [address] [place] HG-[id number] Pcp:Deena Workman MD Subjective: * Chief Complaints: [...] consider the weight loss surgery program at [facility]. She has gained 10 pounds since her [...] hypothyroidism - E03.9, She says is her extrusion machine operator was going to put her on thyroid replacement.?8.?Pulmonary embolism, unspecified chronicity, unspecified pulmonary embolism type, unspecified whether acute cor pulmonale present - I26.99, She was breathing comfortably today and has had no further episodes of dizziness or arterial thromboembolism. She had multiple pulmonary emboli/2022.These have caused dyspnea with exertion and she is undergoing a series of pulmonary artery angioplasties at the [facility] the next of which will be [...] Urbano MD Date:?09/09 Generated for Printi ng/Nettie/eTransmitting on:?12/15/2024 02:37 PM EDT History and Physical Notes * HPI (History of Present Illness) Category Sub-Category Detail Notes COVID-19 Screening Questions Have you had any new onset fever, chills, cough, congestion, sore throat, shortness of breath, muscle aches?: No Have you been exposed to the virus withi n the last 10 days?: No Have you travelled internationally in [facility] last 10 days?: No Have [...]
--- OUTSIDE RECORDS SUMMARY | 2024-12-15 14:37 | XMS_ITS | Patient Health Record ---
Author Organization [facility] Address [address] [place] [address] Care Team Providers Care Recordist Chief Name Role Phone Deena Workman Primary Care Provider Unavailab Dario Holbrook Unavailable [phone] Allergies Allergen (clinical drug ingredient) Drug/Non Drug Allergy documented on EMR Reaction Allergy Type Onset Date Status amitriptyline Amitriptyline Unknown Drug Allergy Active dapagliflozin Farxiga Unknown Drug Allergy Act wiley metformin metFORMIN HCl ER Unknown Drug Allergy Active liraglutide Victoza Unknown Drug Allergy Activ e erythromycin Erythromycin Unknown Drug Allergy A ctive lisinopril Lisinopril Unknown Drug Allergy Activ e Reason For Referral No Information Medications Medication [...] Status Risk Notes Problem Colon cancer screening (012949006) Colon cancer screening (Z12.11) Active confirmed Problem Irritable bowel syndrome (38207546) Irritable bowel syndrome (K58.9) Active confirmed Problem History of polyp of colon (situation) (133038952) Personal history of colonic polyps (Z86.010) Active confirmed Problem Microcytic anemia (349177147) Microcytic anemia (D50.9) Active confirmed Problem Long-term current use of anticoagulant (491800416) Anticoagulant long-term use (Z79.01) Active confirmed Problem Diverticulosis of colon (450527323) Diverticulosis of colon (K57.30) Active confirmed Vital Signs Blood pressure diastolic 00 mm Hg 10/07/2024 Height 65 in 10/07/2024 Blood pressure systolic 00 mm Hg 10/07/2024 Weight 236.8 lbs 10/07/2024 BMI 39.40 kg/m2 10/07/2024 Encounters Encounter Location Date Provider Diagnosis [facility] [address] [place] [phone] 10/07/2024 Dario Ramsey Irritable bowel syndrome K58.9 ; Colon cancer screening Z12.11 ; Personal history of colonic polyps Z86.010 and Anticoagulant long-term use Z79.01 [facility] [address] [place] [phone] 10/08/2024 Dario Ramsey Assessments Encounter Date Diagnosis [...] Name:Dario Vu Roxy , 01/17/2025 11:30:00 AM, [address] [place] [address] , [place], [place], [phone], Insurance Providers Payer Name Payer Address Payer Phone Subscriber Number Group Number Insured Name Patient Relationship to Insured Coverage Start Date Coverage End Date [facility] [address] [address] [place], [place] [id number] DOMONIQUE SANTILLAN Self - patient is the insured MEDICAID OF [facility] [address] [place] [address] [phone] [id number] DOMONIQUE SANTILLAN Self - patient is the insured Medical (General) History Medical History History ICD Code ERCP with sphincterotomy 10-30-2001 Pulmonary emboli with COVID 10/2020-she describes a two-week hospitalization although did not require intubation. She describes having been left with some respiratory issues for which she is seeing Dr. Land. She also describes some residual brain fog Arthritis Denies OH,CVA NIDDM Anemia from heavy menses--she sees Dr. [...] for removal of pulmo nary clots at [facility] Surgical History Surgery Date(Month/Year) CCY 2001 BTL 2001 Bilateral carpal tunnel 2017 Right foot 1999 Right wrist 2021 Partial thyroidectomy for a cancer 2023
--- OUTSIDE RECORDS SUMMARY | 2024-12-15 14:37 | XMS_ITS ---
Author Organization [facility] Address [address] [place] [address] Care Team Providers Care Heating Technician Name Role Phone Deena Workman Primary Care Provider Unavailab Dario Holbrook [phone] REASON FOR VISIT PAT appt Encounters Encounter Location Date Provider Diagnosis [facility] [address] [place] [address] 10/08/2024 Dario Ramsey Plan Of Treatment Next Appt Details Provider Name:Dario Ramsey , 01/17/2025 11:30:00 AM, [address] [place] [address] , [place], [place], [phone], Progress Notes * SANTILLANCHAVEZKWAMEDOB:1975 ([age] yo F)Acc No.[id number]:10/08/2024 Patient:?KASANDRA SANTILLAN :1975???Age:49 Y???Sex:Female Address:[address] [place] [address] [place] [place] [address] * true * Date:? Generated for Printi ng/Fachavezg/eTransmitting on:?12/15/2024 02:37 PM EDT
--- OUTSIDE RECORDS SUMMARY | 2024-12-15 14:38 | XMS_ITS | Patient Health Record ---
Author Organization Dario Urbano III, MD Address [address] [place] [address] Care Team Providers Care Electric Power Superintendent Name Role Phone Jacinta ANGULO, [facility] Primary Care Provider Dario Slater [phone] Allergies Allergen (clinical drug ingredient) Drug/Non Drug [...] ff Reviewed date:10/08/2024 08:30:57 AM Interpretation: Performing Lab:[facility], [address] [place] [phone] Notes/Report: White Blood Count 9.3 4.8-10.8 X10*3/uL [...] te Reviewed date:10/08/2024 08:30:58 AM Interpretation: Performing Lab:[address] [address] Notes/Report: Erythrocyte Sedimentation Rate 23 0-20 MM/HR Patients with polycythemia and many hemoglobin abnormalities may have depressed sed rates whereas patients with anemia may have elevated sed rates. RETIC Reviewed date:10/08/2024 08:30:58 AM Interpretation: Performing Lab:[address] [address] Notes/Report: Reticulocytes Absolute 0.058 0.026-0.095 X10*6/ uL Immature Retic Fraction 20.0 3.0-15.9 % Retic HGB Equivalent 23.7 30.0-35.0 pg Reticulocyte Percent 1.1 0.5-1.8 % Ferritin Reviewed date:10/08/2024 08:30:58 AM Interpretation: Performing Lab:[address] [address] Notes/Report: Ferritin 18 10-250 ng/mL Reason For [...] Problem Status W/U Status Risk Notes Problem 68285956 Dysthymic disorder (F34.1) Active confirmed Her depress ion is mild and I will recommend no change in her current medications. Problem 458235185 Acquired hypothyroidism (E03.9) Active confirmed She has been continued on her current dose of levothyroxine without change. Problem 227709102 Vitamin B 12 deficiency (E53.8) Active confirmed A B12 level is not available at this time. She was continued on current therapy and the value will be followed. 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 She has been referred to [facility] for thyroidectomy. This will require cessation of her anticoagulation . Problem 155944003 History of cholecystectomy (Z90.49) Active confirmed Problem 158386216 Thrombophilia (D68.59) Active confirmed She has had no further blood clots or emboli. No change in her regimen was made. Problem 18122462 Iron deficiency anemia, unspecified iron deficiency anemia [...] future. An explanation will be sought. Problem 622231507 Morbid obesity (E66.01) Active confirmed Her body mass index is now 41.We discussed diet and nutrition. I recommended aggressive weight loss. I recommended she consider the weight loss surgery program at [facility]. She has lost 59 pounds since her last visit. Problem 29920058 Adult onset diabetes mellitus with ketoacidosis (E11.10) Active confirmed She has been compliant with her medications, which are prescribed by primary care. 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 It has not affected her life significantly. No change in her regimen as needed. Problem 27495477 Pulmonary embolism, unspecified chronicity, unspecified pulmonary embolism [...] Provider Diagnosis Dario Urbano III, MD [address] [place] [address] [place] [address] 09/29/2024 Dario Urbano Morbid obesity E66.0 1 ; Thrombophilia D68.59 ; Iron deficiency anemia, unspecified iron deficiency anemia type D50.9 ; Dysthymic disorder F34.1 ; Post-cholecystectomy syndrome K91.5 ; Adult onset diabetes mellitus with ketoacidosis E11.10 ; Vitamin B 12 deficiency E53.8 and Acquired hypothyroidism E03.9 Dario Urbano III, MD [address] [place] [address] [place] [address] 10/13/2024 Dario Urbano Morbid obesity E66.0 1 [...] consider the weight loss surgery program at [facility]. She has lost 59 pounds since her [...] consider the weight loss surgery program at [facility]. 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 thyroid [...] Details Provider Name:Dario Urbano, 02/11/2025 10:15:00 AM, [address] [place] [address] [address], [place], [address], Insurance Providers Payer Name Payer Address Payer Phone Subscriber Number Group Number Insured Name Patient Relationship to Insured Coverage Start Date Coverage End Date [employer] [address] [address] [place] [phone] [id number] Domonique Bro Self - patient is the insured MEDICAID [place] [address] [place], [place] [id number] [phone] [id number] Lesly Brona Self - patient is the insured Medical (General) History Medical History History ICD Code Hyperlipidemia, unspecified hyperlipidem ia type E78.5 Postcholecystectomy syndrome K91.5 Dysmenorrhea N94.6 Morbid obesity E66.01 Dysthymic disorder F34.1 Anemia, unspecified type D64.9 Type 2 diabetes mellitus wit h complication, unspecified whether retirement insulin use E11.8 G6 carpal tunnel syndrome, [...]
--- OUTSIDE RECORDS SUMMARY | 2024-12-15 14:38 | XMS_ITS ---
Author Organization Dario Urbano III, MD Address [address] [place] [address] Care Team Providers Care Executive Secretary Social Welfare Name Role Phone Jacinta ANGULO, [facility] Primary Care Provider Dario Slater [phone] Allergies Allergen (clinical drug ingredient) Drug/Non Drug [...] Provider Diagnosis Dario Urbano III, MD [address] [place] [address] [address] [facility] [address] 10/13/2024 Dario Urbano Morbid obesity E66.0 1 [...] consider the weight loss surgery program at [facility]. She has lost 59 pounds [...] Details Follow Up: 4 Months, February, R peet: ov Provider Name:Dario Urbano, 02/11/2025 10:15:00 AM, [address] [place] [address] [address], [address], [place], [address], Progress Notes * Domonique SANTILLAN SDOB:1975 (49 yo F)Acc No.[id number]:10/13/2024 Patient:?Domonique SANTILLAN Provider:?Dario Urbano MD :1975???Age:49 Y???Sex:Female D ate:10/13/2024 Address:[address] [place], [place] [address] Pcp:Deena Workman MD Subjective: * Chief Complaints: * ???Vitamin B12 deficiencyIro n deficiency * HPI: ???:?Telehealth?Location of provider rendering services:?{...} [address] [facility] [address] ?Location of patient:?address listed in demographics for [...] Time - 10/07/2024 09:15 AM)?ValueReference Range?Erythrocyte Sedimentation [id number] - MM/HR Assessment: * Assessment: 1.?Iron deficiency [...] consider the weight loss surgery program at [facility]. She has lost 59 pounds [...] Urbano MD Date:?01/2025 Generated for Satish lai/Nettie/eTransmitting on:?12/15/2024 02:37 PM EDT History and Physical Notes * HPI (History of Present Illness) Category Sub-Category Detail Notes Telehealth Location of [facility]:: {...} [address] [place] [address] Location of patient:: address listed in demographics [...]
== END 2024-12-15 12:40 | disposition home or self-care (01) ==
LOC: HO.US 12:39
PROVIDERS: PCP Internal Medicine; Visit Provider Hospitalist
DX: R60.0 Localized edema (principal)
CPT/HCPCS: 93970

== ENCOUNTER → 2024-12-15 12:43 | Outpatient (BNV) | payer OTHER, SELFPAY | PROVIDERS: PCP Internal Medicine; Visit Provider Radiology Diagnostic Radiology | DX: R60.0 Localized edema (principal) | CPT/HCPCS: 93970 ==

== ENCOUNTER 2024-12-29 10:39 | Outpatient (AMB) | payer OTHER, SELFPAY ==
[2024-12-29 10:59] LABS: Prothrombin Time Whole Bld POC 32.2 sec (11.1-13.5); ~PT, ~INR - Anti Coag Clinic 2.7 (0.9-1.1)
--- NOTE | 2024-12-29 10:59 | MHC.OFFVISCO ---
Intake Intake Visit Reasons: Anticoagulation Allergies lisinopril [LISINOPRIL] Allergy (Severe, Verified 12/14/24 08:24) ANGIOEDEMA dapagliflozin [From FARXIGA] Allergy (Intermediate, Verified 12/14/24 08:24) HIVES liraglutide [From VICTOZA] Allergy (Intermediate, Verified 12/14/24 08:24) RASH metformin [METFORMIN] Allergy (Intermediate, Verified 12/14/24 08:24) GI UPSET erythromycin base [ERYTHROMYCIN BASE] Allergy (Unknown, Verified 12/14/24 08:24) UNKNOWN amitriptyline [AMITRIPTYLINE] Adverse Reaction (Intermediate, Verified 12/14/24 08:24) DRUGGED FEELING Medication List - Last Reconciled 12/29/24 by Linh Mcnulty RN acetaminophen ER 650 mg PO Q6H PRN albuterol sulfate 2.5 mg inhalation Q4H PRN albuterol sulfate 90 mcg/actuation (Ventolin HFA) 2 puffs inhalation Q6H PRN amitriptyline 25 mg PO DAILY blood sugar diagnostic (FreeStyle Lite Strips) As directed blood-glucose meter (FreeStyle Lite Meter kit) Use daily As directed to check blood sugars compress.stocking,knee,reg,med 15-20 cm dextromethorphan-guaifenesin 60-1,200 mg ER (Mucinex DM) 1 tab PO Q12H 14 days ferrous gluconate 324 mg PO DAILY levothyroxine 50 mcg PO DAILY metformin 1,000 mg PO BID nebulizers As directed Oxygen Home Use As directed rosuvastatin 10 mg PO BEDTIME sertraline 100 mg PO DAILY sildenafil (pulm.hypertension) 20 mg PO TID 30 days tirzepatide (Mounjaro) 10 mg (0.5 mL) subcut QWEEK warfarin 5 mg See Protocol PO DAILY 30 days Nursing Note INR: 2.7- in therapeutic range 2-3 Medications and supplements reviewed No changes in health, diet, medications, or supplements, Denies any signs and symptoms of bleeding or bruising or clotting. Bleeding, bruising, clotting discussed Nutritional guidance given Dose: 2.5mg x 7 F/U INR: 2 weeks Patient verbalizes understanding of instructions given pt had u/s left LE to r/o DVT - was neg, cont with sl lle edema- pt states has compression stocking which she was measured for but too long enc to call to replace pt scheduled for colonoscopy on 01/17/25- 5 day hold warfarin per dr mitchell notes, composed note to dr salazar to ? lovenox bridge Anti-Coag Initial Assessment Social Hx Patient Tobacco Use Status: Never used Tobacco alcohol intake: former Alcohol intake frequency: does not drink Cardiovascular Hx: HTN Lung Disease HX: DVT/PE Endocrine Hx: Thyroid Disease Musculoskeletal Hx: Arthritis Blood Disorder Hx: Anemia and Hyperlipidemia GI Hx: Ulcers, Diverticulosis and Hemorrhoids Hx: Other Neurological Hx: Migraines/Headaches and Other Cancer HX: No Psych. Illness/Depression: Yes Coding Level of Care Code Est Patient Level 1 Diagnoses Current use of anticoagulant therapy Z79.01 Assessment & Plan Assessment & Plan (1) Current use of anticoagulant therapy: Code(s): Z79.01 - halfway (current) use of anticoagulants Category: Medical
--- OUTSIDE RECORDS SUMMARY | 2024-12-29 12:37 | XMS_ITS | Clinical Summary ---
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
== END 2024-12-29 11:06 | disposition home or self-care (01) ==
LOC: HO.ACS 10:39
PROVIDERS: PCP Internal Medicine; Visit Provider Internal Medicine Medical Oncology
DX: Z79.01 Long term (current) use of anticoagulants (principal)

== ENCOUNTER → 2024-12-29 10:39 | Outpatient (BNVA) | payer OTHER, SELFPAY | PROVIDERS: PCP Internal Medicine; Visit Provider Internal Medicine Medical Oncology | DX: I26.99 Other pulmonary embolism without acute cor pulmonale (principal); Z79.01 Long term (current) use of anticoagulants; Z51.81 Encounter for therapeutic drug level monitoring | CPT/HCPCS: 85610; 99211 ==

== ENCOUNTER 2025-01-10 08:15 | Outpatient (AMB) | payer OTHER, SELFPAY ==
--- OUTSIDE RECORDS SUMMARY | 2025-01-10 08:30 | XMS_ITS | Clinical Summary ---
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
[2025-01-10 08:34] LABS: Prothrombin Time Whole Bld POC 23.8 sec (11.1-13.5)
--- NOTE | 2025-01-10 08:41 | MHC.OFFVISCO ---
Intake Intake Visit Reasons: Anticoagulation Allergies lisinopril [LISINOPRIL] Allergy (Severe, Verified 01/10/25 08:19) ANGIOEDEMA dapagliflozin [From FARXIGA] Allergy (Intermediate, Verified 01/10/25 08:19) HIVES erythromycin base [ERYTHROMYCIN BASE] Allergy (Intermediate, Verified 01/10/25 08:19) Hives liraglutide [From VICTOZA] Allergy (Intermediate, Verified 01/10/25 08:19) RASH amitriptyline [AMITRIPTYLINE] Adverse Reaction (Intermediate, Verified 01/10/25 08:19) lethargy metformin [METFORMIN] Adverse Reaction (Intermediate, Verified 01/10/25 08:19) GI UPSET to short acting form-is taking long acting & OK Medication List - Last Reconciled 01/10/25 by Francine Mitchell RN acetaminophen ER 650 mg PO Q6H PRN albuterol sulfate 2.5 mg inhalation Q4H PRN albuterol sulfate 90 mcg/actuation (Ventolin HFA) 2 puffs inhalation Q6H PRN blood sugar diagnostic (FreeStyle Lite Strips) As directed blood-glucose meter (FreeStyle Lite Meter kit) Use daily As directed to check blood sugars compress.stocking,knee,reg,med 15-20 cm enoxaparin (Lovenox) 100 mg subcut Q12H 7 days enoxaparin (Lovenox) 100 mg See Protocol subcut Q12H 5 days ferrous gluconate 324 mg PO DAILY furosemide (Lasix) 20 mg PO DAILY PRN levothyroxine 50 mcg PO QAM metformin 1,000 mg PO BID nebulizers As directed Oxygen Home Use As directed rosuvastatin 10 mg PO BEDTIME sertraline 100 mg PO DAILY sildenafil (pulm.hypertension) 20 mg PO TID 30 days tirzepatide (Mounjaro) 10 mg (0.5 mL) subcut QWEEK verapamil 40 mg PO BID warfarin 5 mg See Protocol PO DAILY 30 days Nursing Note INR: 2.0 in therapeutic range of 2-3 Medications and supplements reviewed No changes in health, diet, medications, or supplements, Denies any signs and symptoms of bleeding or bruising or clotting. Bleeding, bruising, clotting discussed Pt to have a colonoscopy on 01/17/25 with a 5 day hold of warfarin Last dose of warfarin is 01/11, 01/12: no warfarin, no lovenox, then lovenox bid with last dose onSun 01/16 AM dose only. Nothing for 24 hours before procedure. After procedure pt aware she is to start warfarin and lovenox when OK with Dr Ramsey to restart. She is aware she is to avoid greens when restarting warfarin. When OK to restart, she will take 5mg X 3 days then 2.5mg until INR checked F/U INR: 01/21/25 Patient verbalizes understanding of instructions given Anti-Coag Initial Assessment Social Hx Patient Tobacco Use Status: Never used Tobacco alcohol intake: former Alcohol intake frequency: does not drink Cardiovascular Hx: HTN Lung Disease HX: DVT/PE Endocrine Hx: Thyroid Disease Musculoskeletal Hx: Arthritis Blood Disorder Hx: Anemia and Hyperlipidemia GI Hx: Ulcers, Diverticulosis and Hemorrhoids Hx: Other Neurological Hx: Migraines/Headaches and Other Cancer HX: No Psych. 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
== END 2025-01-10 08:51 | disposition home or self-care (01) ==
LOC: HO.ACS 08:15
PROVIDERS: PCP Internal Medicine; Visit Provider Internal Medicine Medical Oncology
DX: Z79.01 Long term (current) use of anticoagulants (principal)

== ENCOUNTER → 2025-01-10 08:15 | Outpatient (BNVA) | payer OTHER, SELFPAY | PROVIDERS: PCP Internal Medicine; Visit Provider Internal Medicine Medical Oncology | DX: I26.99 Other pulmonary embolism without acute cor pulmonale (principal); Z51.81 Encounter for therapeutic drug level monitoring; Z79.01 Long term (current) use of anticoagulants | CPT/HCPCS: 85610; 99212 ==

== ENCOUNTER 2025-01-17 10:30 | Day surgery (SDC) | payer OTHER, SELFPAY ==
[2025-01-03 10:10] VITALS: BP 143/74; PULSE 67; RESP 22; O2SAT 98; BMI 42.9
--- NOTE | 2025-01-03 10:26 | P.CONAN_ITS ---
Documented by User: Norma Tristan NP 01/03/25 10:34 HPI - Anesthesia Eval Consult details Narrative: 49yo F for Colonoscopy Follows C pulmo for hx PE, JOSEPH requiring O2 @ 2L with activity - opitmized for colo Warfarin - hx PE, +Factor V - lovenox bridge DM controlled PMFSH Active Problems Active Problems: All Active Problems Severe obesity (BMI 35.0-39.9) with comorbidity (Acute) Pleurisy (Acute) ANANDA positive (Acute) Hypocomplementemia (Acute) Calcific tendonitis of right shoulder (Acute) Thrombocytopenia (Acute) CKD (chronic kidney disease) (Acute) T2DM (type 2 diabetes mellitus) (Acute) Current use of anticoagulant therapy (Acute) Thyroid with heterogeneous echotexture determined by ultrasound (Acute) Bilateral pulmonary embolism (Acute) Pulmonary emboli (Acute) Complex tear of medial meniscus of left knee (Acute) Patellofemoral arthritis of left knee (Acute) Dyspnea (Acute) SERA (obstructive sleep apnea) (Acute) De Quervain's tenosynovitis, left (Acute) Mass of soft tissue of right upper extremity (Acute) De Quervain's tenosynovitis, right (Acute) Osteoarthritis of right ankle (Acute) Osteoarthritis of right knee (Acute) COVID-19 (Acute) Osteoarthritis of left knee (Acute) Lymphedema (Acute) Hyperlipidemia (Acute) Pleurisy with effusion (Acute) Pulmonary hypertension (Acute) Hypercoagulable state (Acute) Thyroid cancer (Acute) Chronic thromboembolic disease (Acute) Lower extremity edema (Acute) Multinodular thyroid (Acute) Pleuritic chest pain (Acute) History of pulmonary embolus (PE) (Acute ~2020) Past Medical History Medical History CKD (chronic kidney disease) stage 4, GFR 15-29 ml/min PPD positive, treated Hx of angiography IBS (irritable bowel syndrome) Lymphedema Pleurisy with effusion Pulmonary hypertension Hypercoagulable state Thyroid cancer Chronic thromboembolic disease Lower extremity edema Multinodular thyroid Family history of deep venous thrombosis Pleuritic chest pain Dyspareunia in female Anemia Obstructive sleep apnea Morbid obesity History of COVID-19 (~2020) History of pulmonary embolus (PE) (~2020) Anxiety Chronic headaches Dyspnea on exertion Diabetes type 2, controlled Hypothyroid HTN (hypertension) Hyperlipidemia Family History Family History Father Myocardial infarction COPD (chronic obstructive pulmonary disease) Mother COPD (chronic obstructive pulmonary disease) Brother Colitis Surgical History Surgical History Hx of partial thyroidectomy H/O colonoscopy History of surgery on right wrist History of foot surgery History of tubal ligation History of carpal tunnel surgery History of ERCP History of laparoscopic cholecystectomy History of surgery History of Problems with Anesthesia: No Social History Social History Housing: House Are you a primary occasional caregiver to a significant other at home: No Do you presently have visiting nurse or other home services: Yes (home services for oxygen) Alcohol intake: former Comment: pt d/c home Patient Tobacco Use Status: Never used Tobacco Use of substances other than those prescribed or required for medical reasons: No Have you been hit, kicked, punched, or otherwise hurt by someone within the past year? 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 Current occupational exposures/hazards: No Meds Allergies Allergy/AdvReac Type Severity Reaction Status Date / Time lisinopril [LISINOPRIL] Allergy Severe ANGIOEDEMA Verified 01/17/25 10:44 dapagliflozin [From FARXIGA] Allergy Intermediate HIVES Verified 01/17/25 10:44 erythromycin base Allergy Intermediate Hives Verified 01/17/25 10:44 [ERYTHROMYCIN BASE] liraglutide [From VICTOZA] Allergy Intermediate RASH Verified 01/17/25 10:44 amitriptyline [AMITRIPTYLINE] AdvReac Intermediate lethargy Verified 01/17/25 10:44 metformin [METFORMIN] AdvReac Intermediate GI UPSET Verified 01/17/25 10:44 to short acting form-is taking long acting & OK Home Medications ?Medication ?Instructions ?Recorded ?Confirmed ?Last Taken ?Type blood sugar diagnostic (FreeStyle #10 ea 02/26/22 01/10/25 Unknown History Lite Strips) albuterol sulfate 2.5 mg/3 mL 2.5 mg inhalation Q4H PRN Wheezing 01/31/2301/30 Unknown History (0.083 %) solution for nebulization acetaminophen 650 mg 650 mg PO Q6H PRN pain 03/03/23 01/10/25 Unknown History tablet,extended release Oxygen Home Use 04/11/23 01/10/25 Unknown History metformin 1,000 mg tablet 1,000 mg PO BID 06/02/23 01/10/25 Unknown History nebulizers 07/23/23 01/10/25 Unknown History levothyroxine 50 mcg tablet 50 mcg PO QAM 01/08/24 01/10/25 01/17/25 09:00 History ferrous gluconate 324 mg (38 mg 324 mg PO DAILY 04/22/24 01/10/25 01/10/25 History iron) tablet sertraline 100 mg tablet 100 mg PO DAILY 04/22/24 01/10/25 Unknown History rosuvastatin 10 mg tablet 10 mg PO BEDTIME 07/22/24 01/10/25 Unknown History verapamil 40 mg tablet 40 mg PO BID migraine headache 01/03/25 01/10/25 Unknown History Exam Height,Weight and Vital Signs: Height 5 ft 5 in Weight 117.027 kg Last Vital Signs Pulse 67 01/03/25 10:10 Resp 22 H 01/03/25 10:10 BP 143/74 H 01/03/25 10:10 Pulse Ox 98 01/03/25 10:10 O2 Del Method Nasal Cannula 01/03/25 10:10 O2 Flow Rate 2 01/03/25 10:10 Pertinent Lab Results Pertinent Lab Results: Laboratory Tests 10/21/24 12:15 WBC 7.7 Hgb 10.5 L Hct 34.8 L Plt Count 160 D Sodium 139 Potassium 4.0 D Chloride 109 H Carbon Dioxide 23 BUN 10 Creatinine 1.06 Narrative Narrative: ECHO 2023 Conclusions: - The left ventricular systolic function is normal. The calculated ejection fraction is 59% by biplane method. - No obvious valvular pathology seen on this study. - There is no evidence of pulmonary hypertension. EKG 2023 Vent. Rate : 101 BPM Atrial Rate : 101 BPM P-R Int : 160 ms QRS Dur : 088 ms QT Int : 346 ms P-R-T Axes : 036 -18 019 degrees QTc Int : 448 ms Sinus tachycardia Otherwise normal ECG When compared with ECG of 05-APR-2024 19:02, No significant change was found Airway TM Dist: >3cm Neck ROM: Full Partial: Upper and Lower Heart: RRR Lungs: fine crackles LLL Assessment and Plan Assessment Anesthesia Assessment: Anesthesia Plan Discussed and PAT Visit Final Anesthetic Review History of Problems with Anesthesia: No Documented by User: Nataly Molina MD 01/17/25 11:26 [facility] Past Medical History Medical History CKD (chronic kidney disease) stage 4, GFR 15-29 ml/min PPD positive, treated Hx of angiography IBS (irritable bowel syndrome) Lymphedema Pleurisy with effusion Pulmonary hypertension Hypercoagulable state Thyroid cancer Chronic thromboembolic disease Lower extremity edema Multinodular thyroid Family history of deep venous thrombosis Pleuritic chest pain Dyspareunia in female Anemia Obstructive sleep apnea Morbid obesity History of COVID-19 (~2020) History of pulmonary embolus (PE) (~2020) Anxiety Chronic headaches Dyspnea on exertion Diabetes type 2, controlled Hypothyroid HTN (hypertension) Hyperlipidemia Family History Family History Father Myocardial infarction COPD (chronic obstructive pulmonary disease) Mother COPD (chronic obstructive pulmonary disease) Brother Colitis Family history of problems with anesthesia: No Surgical History Surgical History Hx of partial thyroidectomy H/O colonoscopy History of surgery on right wrist History of foot surgery History of tubal ligation History of carpal tunnel surgery History of ERCP History of laparoscopic cholecystectomy History of surgery Social History Social History Housing: House Are you a primary occasional caregiver to a significant other at home: No Do you presently have visiting nurse or other home services: Yes (home services for oxygen) Alcohol intake: former Comment: pt d/c home Patient Tobacco Use Status: Never used Tobacco Use of substances other than those prescribed or required for medical reasons: No Have you been hit, kicked, punched, or otherwise hurt by someone within the past year? 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 Current occupational exposures/hazards: No Meds Allergies Allergy/AdvReac Type Severity Reaction Status Date / Time lisinopril [LISINOPRIL] Allergy Severe ANGIOEDEMA Verified 01/17/25 10:44 dapagliflozin [From FARXIGA] Allergy Intermediate HIVES Verified 01/17/25 10:44 erythromycin base Allergy Intermediate Hives Verified 01/17/25 10:44 [ERYTHROMYCIN BASE] liraglutide [From VICTOZA] Allergy Intermediate RASH Verified 01/17/25 10:44 amitriptyline [AMITRIPTYLINE] AdvReac Intermediate lethargy Verified 01/17/25 10:44 metformin [METFORMIN] AdvReac Intermediate GI UPSET Verified 01/17/25 10:44 to short acting form-is taking long acting & OK Home Medications ?Medication ?Instructions ?Recorded ?Confirmed ?Last Taken ?Type blood sugar diagnostic (Eri #10 ea 02/26/22 01/10/25 Unknown History Lite Strips) albuterol sulfate 2.5 mg/3 mL 2.5 mg inhalation Q4H PRN Wheezing 01/31/23 01/10/25 Unknown History (0.083 %) solution for nebulization acetaminophen 650 mg 650 mg PO Q6H PRN pain 03/03/23 01/10/25 Unknown History tablet,extended release Oxygen Home Use 04/11/23 01/10/25 Unknown History metformin 1,000 mg tablet 1,000 mg PO BID 06/02/23 01/10/25 Unknown History nebulizers 07/23/23 01/10/25 Unknown History levothyroxine 50 mcg tablet 50 mcg PO QAM 01/08/24 01/10/25 01/17/25 09:00 History ferrous gluconate 324 mg (38 mg 324 mg PO DAILY 04/22/24 01/10/25 01/10/25 History iron) tablet sertraline 100 mg tablet 100 mg PO DAILY 04/22/24 01/10/25 Unknown History rosuvastatin 10 mg tablet 10 mg PO BEDTIME 07/22/24 01/10/25 Unknown History verapamil 40 mg tablet 40 mg PO BID migraine headache 01/03/25 01/10/25 Unknown History Exam Airway Mallampati Class: II Assessment and Plan Assessment Anesthesia Assessment: Chart Reviewed Final Anesthetic Review Family History of Problems with Anesthesia: No NPO: Yes ASA Class: III Final Preanesthetic Review: No Changes in Pt Med Stat, Meds/Allgs Chart Reviewed, Consent Obtained/Reviewed and Anes Risks/Benef Reviewed Patient Risk: Intermediate Procedure Risk: Low Anesthetic Plan Anesthetic Plan: MAC: Disposition: Standard PACU
[2025-01-17 10:56] LABS: INTERNATIONAL NORM RATIO 1.1 (0.9-1.1); Prothrombin Time 13.1 SEC (10.9-12.4)
[2025-01-17 11:00] VITALS: BP 124/78; PULSE 82; RESP 15; TEMP 36.3; O2SAT 96
[2025-01-17] MEDS: Lactated Ringers 1,000 ML 100 ML IVCONT (11:09)
[2025-01-17 11:14] LABS: Glucose, Whole Blood 118 mg/dL (60-115)
[2025-01-17 12:29] VITALS: BP 106/51; PULSE 77; RESP 17; TEMP 36.6; O2SAT 100
--- NOTE | 2025-01-17 12:31 | P.BOP_ITS ---
Brief Operative Note Date of Service: 01/17/25 Pre-op diagnosis: Screening Post-op diagnosis: other (Polyp) Procedure: Colonoscopy to the cecum and TI with bx Surgeon: Dario Ramsey MD Anesthesia: MAC Was an Inspector Filter Tip used for this Procedure?: No Estimated blood loss (mL): 2.0 Pathology: other (A. Rectum, ? polyp) Condition: stable Disposition: PACU
[2025-01-17 12:44] VITALS: BP 110/60; PULSE 73; RESP 17; O2SAT 100
[2025-01-17 12:57] VITALS: BP 123/65; PULSE 66; RESP 17; TEMP 36.8; O2SAT 100
--- NOTE | 2025-01-17 13:30 | OP_ITS ---
DATE OF SERVICE: 01/17/2025 SURGEON: Dario Ramesy MD INDICATIONS: The patient presents for evaluation of personal history of tubular adenoma of the colon and colorectal cancer screening. Full consent has been obtained from her for this, including risks of bleeding and perforation. PREOPERATIVE DIAGNOSIS: Colorectal cancer screening. POSTOPERATIVE DIAGNOSIS: PROCEDURE PERFORMED: Colonoscopy to the cecum and terminal ileum with biopsy and removal of polyp. ESTIMATED BLOOD LOSS: COMPLICATIONS: ANESTHESIA: Medication used, monitored anesthesia care. ASSISTANTS: SPECIMENS: POSTOPERATIVE DIAGNOSES: Colorectal cancer screening, question of small rectal polyp, sigmoid diverticulosis, internal hemorrhoids. DESCRIPTION OF PROCEDURE: The patient was placed in the left lateral decubitus position. The digital rectal exam revealed no abnormalities. The Olympus video pediatric colonoscope was entered into the rectum and advanced easily to the cecum. Once in the cecum, I did identify normal-appearing cecal pouch with appendiceal orifice and a normal-appearing ileocecal valve. The terminal ileum was cannulated and appeared normal. Scope was withdrawn back in the colon. The entire cecum and ileocecal valve appeared normal. The scope was slowly withdrawn assessing all mucosal surfaces carefully. Preparation was excellent. There was a mild amount of sigmoid diverticulosis. I did not visualize any sign of colitis nor angiodysplasia. In the rectum, I visualized 2 previously placed submucosal ink bedolla with a central area of some scarring between them. In the same vicinity was a slightly raised 3 or 4 mm area that probably represented some edema, and I doubt represented polyp tissue. This was biopsied and completely removed with a cold biopsy forceps. Again, the area of scarring from the previous polypectomy appeared clean and without any sign of residual polyp tissue. In the rectum, scope was retroflexed visualizing some internal hemorrhoids, but no other pathology. The scope was straightened and withdrawn from the patient. She tolerated the procedure well and was returned to the recovery area in stable condition. IMPRESSION: 1. Question of small rectal polyp, status post biopsy and removal. 2. Site of previous polypectomy in the rectum, visualized and appeared normal. 3. Diverticulosis. 4. Internal hemorrhoids. PLAN: The results of the biopsy will be checked. I would recommend a repeat colonoscopy in 5 years for further screening at this point. She was advised to resume her Coumadin and Lovenox today at the recommendations by the anticoagulation Clinic and/or Dr. Land. She will have that adjusted over the next few days as well. She was advised that she could resume her iron and diabetes regimen as usual. MD DILMA Feliciano/OBDULIA / [id number]
== END 2025-01-17 13:10 | disposition home or self-care (01) ==
PROVIDERS: Nurse Practitioner; PCP Internal Medicine; Visit Provider Internal Medicine
PROC: 0DJD8ZZ Inspection of Lower Intestinal Tract, Via Natural or Artificial Opening Endoscopic (ICD-10-PCS; CPT 45378; principal; 2025-01-17 11:30)
DX: Z12.11 Encounter for screening for malignant neoplasm of colon (principal); Z86.0101 Personal history of adenomatous and serrated colon polyps; K62.1 Rectal polyp; K64.8 Other hemorrhoids; K58.0 Irritable bowel syndrome with diarrhea; E11.9 Type 2 diabetes mellitus without complications; D64.9 Anemia, unspecified; Z86.711 Personal history of pulmonary embolism; Z79.01 Long term (current) use of anticoagulants; Z79.84 Long term (current) use of oral hypoglycemic drugs; Z79.85 Long-term (current) use of injectable non-insulin antidiabetic drugs; Z88.1 Allergy status to other antibiotic agents; Z88.8 Allergy status to other drugs, medicaments and biological substances; Z90.49 Acquired absence of other specified parts of digestive tract; Z79.890 Hormone replacement therapy
CPT/HCPCS: 45380; 36415; 82947; 85610; 88305; J2003; J2704

== ENCOUNTER 2025-01-19 13:25 | Outpatient (REF) | payer OTHER, SELFPAY ==
[2025-01-19 14:22] LABS: Estimated Average Glucose 126 mg/dL; Total Hemoglobin (HGBA1C) 2716.8567 umol/L
[2025-01-19 14:39] LABS: Alanine Aminotransferase 9 U/L (0-31); Albumin Level 3.9 g/dL (3.5-5.0); Anion Gap 12 (12-20); Aspartate Amino Transferase 17 U/L (5-31); Bilirubin Total 0.4 mg/dL (0.0-1.0); Blood Urea Nitrogen 12 mg/dL (9-16); Calcium 8.7 mg/dL (8.4-10.2); Carbon Dioxide 26 mmol/L (22-29); Chloride 106 mmol/L (96-108); Estimated Glomerular Filt Rate 57; Glucose Random 85 mg/dL (60-115); Potassium 3.7 mmol/L (3.3-5.1); Sodium 140 mmol/L (135-145); Total Protein 6.6 g/dL (6.5-8.0)
[2025-01-19 16:53] LABS: Alkaline Phosphatase 75 U/L (39-117)
== END 2025-01-19 13:26 | disposition home or self-care (01) ==
LOC: HO.LAB 13:25
PROVIDERS: PCP Internal Medicine; Visit Provider Physician Assistant
DX: E78.5 Hyperlipidemia, unspecified (principal); E11.9 Type 2 diabetes mellitus without complications; C73 Malignant neoplasm of thyroid gland
CPT/HCPCS: 36415; 80053; 83036

== ENCOUNTER 2025-01-21 12:52 | Outpatient (AMB) | payer OTHER, SELFPAY ==
--- NOTE | 2025-01-21 12:56 | MHC.OFFVIS ---
Vital Signs 01/21/25 13:01 Height 5 ft 5 in Weight 246 lb BMI 40.9 BP 102/72 Blood Pressure Location Lt brachial Position Sitting Pulse 84 Pulse Source Pulse Oximeter Pulse Oximetry (%) 96 Oxygen Delivery Method Room Air Intake Visit Reasons: DM Intake Note: Patient present today for Type 2 Diabetes Mellitus Last Diabetic eye exam: 12/22/2024 Last Podiatry Visit: Doesn't have one Random Glucose: 163 mg/dl HgA1C: 6.0% 01/19/25 Journalism Internship Required: No Accompanied by: Self / Same As Patient Allergies lisinopril [LISINOPRIL] Allergy (Severe, Verified 01/21/25 13:09) ANGIOEDEMA dapagliflozin [From FARXIGA] Allergy (Intermediate, Verified 01/21/25 13:09) HIVES erythromycin base [ERYTHROMYCIN BASE] Allergy (Intermediate, Verified 01/21/25 13:09) Hives liraglutide [From VICTOZA] Allergy (Intermediate, Verified 01/21/25 13:09) RASH amitriptyline [AMITRIPTYLINE] Adverse Reaction (Intermediate, Verified 01/21/25 13:09) lethargy metformin [METFORMIN] Adverse Reaction (Intermediate, Verified 01/21/25 13:09) GI UPSET to short acting form-is taking long acting & OK Medication List - Last Reconciled 01/21/25 by Deysi Woodward PA-C acetaminophen ER 650 mg PO Q6H PRN albuterol sulfate 2.5 mg inhalation Q4H PRN albuterol sulfate 90 mcg/actuation (Ventolin HFA) 2 puffs inhalation Q6H PRN blood sugar diagnostic (FreeStyle Lite Strips) As directed blood-glucose meter (FreeStyle Lite Meter kit) Use daily As directed to check blood sugars compress.stocking,knee,reg,med 15-20 cm enoxaparin (Lovenox) 100 mg See Protocol subcut Q12H 5 days ferrous gluconate 324 mg PO DAILY furosemide (Lasix) 20 mg PO DAILY PRN levothyroxine 50 mcg PO QAM nebulizers As directed Oxygen Home Use As directed rosuvastatin 10 mg PO BEDTIME sertraline 100 mg PO DAILY sildenafil (pulm.hypertension) 20 mg PO TID 30 days verapamil 40 mg PO BID warfarin 5 mg See Protocol PO DAILY 30 days HPI HPI DM: Details: Patient is a 49 year old with type 2 diabetes, history of multinodular goiter, hypertension, hypothyroidism, mixed hyperlipidemia, history of a PE, 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 Endo: Dm- Initially diagnosed with T2DM in >10 yrs . Her A1c is 6. She is currently on Mounjaro 10 mg and metformin 1000 mg bid She has lost some weight with the Mounjaro but does feel like she is at a plateau. She would like to lose more. She denies any hypoglycemic events. Previous meds:victoza-?rash, trulicity was expensive/ineffective, ozempic was ineffective, farxiga-hives Family history of T2DM in paternal grandmother no one else with diabetes . Has eyes checked yearly Has HLD, on statin. . Denies CAD. Thyroid-s/p right thyroidectomy 02/2024-follicular adenoma-Hurthle cell predominance. On levothyroxine 50 mcg CV: Blood pressure today in the office is 102/72. She is currently on furosemide 20 mg. Compliant with rosuvastatin 10 mg. Last LDL is at goal. On chronic anticoagulation. Nephrology: stable ckd, follows with nephrology [facility] Medical History CKD (chronic kidney disease) stage 4, GFR 15-29 ml/min PPD positive, treated Hx of angiography IBS (irritable bowel syndrome) Lymphedema Pleurisy with effusion Pulmonary hypertension Hypercoagulable state Thyroid cancer Chronic thromboembolic disease Lower extremity edema Multinodular thyroid Family history of deep venous thrombosis Pleuritic chest pain Dyspareunia in female Anemia Obstructive sleep apnea Morbid obesity History of COVID-19 (~2020) History of pulmonary embolus (PE) (~2020) Anxiety Chronic headaches Dyspnea on exertion Diabetes type 2, controlled Hypothyroid HTN (hypertension) Hyperlipidemia Surgical History Hx of partial thyroidectomy H/O colonoscopy History of surgery on right wrist History of foot surgery History of tubal ligation History of carpal tunnel surgery History of ERCP History of laparoscopic cholecystectomy History of surgery Family History Father Myocardial infarction COPD (chronic obstructive pulmonary disease) Mother COPD (chronic obstructive pulmonary disease) Brother Colitis Social History Housing: House Are you a primary health care coach to a significant other at home: No Do you presently have visiting nurse or other home services: Yes (home services for oxygen) Alcohol intake: former Comment: pt d/c home Patient Tobacco Use Status: Never used Tobacco service: No Current occupational status: employed 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, 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 Vibratory sensation intact bilaterally. Skin intact. 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 Reduce metformin to 500 mg twice a day Follow up in 3 months. Sooner if needed. (2) Hyperlipidemia: Code(s): E78.5 - Hyperlipidemia, unspecified Category: Medical Plan: Continue Crestor. (3) Severe obesity (BMI 35.0-39.9) with comorbidity: Code(s): E66.01 - Morbid (severe) obesity due to excess calories Category: Medical Plan: She is working on weight loss. We did discuss diet changes. 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
--- OUTSIDE RECORDS SUMMARY | 2025-01-21 12:56 | XMS_ITS | Clinical Summary ---
Author Organization [facility] Address [address] [place] [address] Care Team Providers Care Wind Operations Manager Name Role Phone Unavailable Primary Care Provider [...] Documents on File Type Date Recorded Patient Echocardiography Technologist Expl anation Health Care Decision (hx) 10/31/2020 AD MERCEDES DIRECTIVE
[2025-01-21 13:01] VITALS: BP 102/72; PULSE 84; O2SAT 96; BMI 40.9
[2025-01-21 13:15] LABS: Glucose, Whole Blood 163 mg/dL (60-115)
== END 2025-01-21 13:28 | disposition home or self-care (01) ==
LOC: HO.ENCR 12:53
PROVIDERS: PCP Internal Medicine; Visit Provider Physician Assistant
DX: E11.9 Type 2 diabetes mellitus without complications (principal); E78.5 Hyperlipidemia, unspecified; E66.01 Morbid (severe) obesity due to excess calories

== ENCOUNTER → 2025-01-21 12:52 | Outpatient (BNVA) | payer OTHER, SELFPAY | PROVIDERS: PCP Internal Medicine; Visit Provider Physician Assistant | DX: E11.9 Type 2 diabetes mellitus without complications (principal); I10 Essential (primary) hypertension; E78.2 Mixed hyperlipidemia; E89.0 Postprocedural hypothyroidism; I26.99 Other pulmonary embolism without acute cor pulmonale; E66.01 Morbid (severe) obesity due to excess calories; Z51.81 Encounter for therapeutic drug level monitoring; Z68.41 Body mass index [BMI] 40.0-44.9, adult; Z79.01 Long term (current) use of anticoagulants; Z79.84 Long term (current) use of oral hypoglycemic drugs; Z79.899 Other long term (current) drug therapy | CPT/HCPCS: 82947; 85610; 99211; 99212 ==

== ENCOUNTER 2025-01-21 13:50 | Outpatient (AMB) | payer OTHER, SELFPAY ==
--- OUTSIDE RECORDS SUMMARY | 2025-01-21 13:52 | XMS_ITS | Clinical Summary ---
Author Organization [facility] Address [address] [place] [address] Care Team Providers Care Referral Rn Name Role Phone Unavailable Primary Care Provider [...] Documents on File Type Date Recorded Patient Medication Assistant Expl anation Health Care Decision (hx) 10/31/2020 AD MERCEDES DIRECTIVE
[2025-01-21 14:04] LABS: Prothrombin Time Whole Bld POC 31.1 sec (11.1-13.5); ~PT, ~INR - Anti Coag Clinic 2.6 (0.9-1.1)
--- NOTE | 2025-01-21 14:04 | MHC.OFFVISCO ---
Intake Intake Visit Reasons: Anticoagulation Allergies lisinopril [LISINOPRIL] Allergy (Severe, Verified 01/21/25 13:50) ANGIOEDEMA dapagliflozin [From FARXIGA] Allergy (Intermediate, Verified 01/21/25 13:50) HIVES erythromycin base [ERYTHROMYCIN BASE] Allergy (Intermediate, Verified 01/21/25 13:50) Hives liraglutide [From VICTOZA] Allergy (Intermediate, Verified 01/21/25 13:50) RASH amitriptyline [AMITRIPTYLINE] Adverse Reaction (Intermediate, Verified 01/21/25 13:50) lethargy metformin [METFORMIN] Adverse Reaction (Intermediate, Verified 01/21/25 13:50) GI UPSET to short acting form-is taking long acting & OK Medication List - Last Reconciled 01/21/25 by Licha Muñoz RN acetaminophen ER 650 mg PO Q6H PRN albuterol sulfate 2.5 mg inhalation Q4H PRN albuterol sulfate 90 mcg/actuation (Ventolin HFA) 2 puffs inhalation Q6H PRN blood sugar diagnostic (FreeStyle Lite Strips) As directed blood-glucose meter (FreeStyle Lite Meter kit) Use daily As directed to check blood sugars compress.stocking,knee,reg,med 15-20 cm enoxaparin (Lovenox) 100 mg See Protocol subcut Q12H 5 days ferrous gluconate 324 mg PO DAILY furosemide (Lasix) 20 mg PO DAILY PRN levothyroxine 50 mcg PO QAM metformin ER 500 mg PO BID nebulizers As directed Oxygen Home Use As directed rosuvastatin 10 mg PO BEDTIME sertraline 100 mg PO DAILY sildenafil (pulm.hypertension) 20 mg PO TID 30 days tirzepatide (Mounjaro) 12.5 mg (0.5 mL) subcut QWEEK verapamil 40 mg PO BID warfarin 5 mg See Protocol PO DAILY 30 days Nursing Note INR: 2.6 in therapeutic range- she had booster dose past 4 days plus ate grapes Medications and supplements reviewed- metformin decreased today and monjaruo increased S/P COLONOSCOPY - WITH SMALL POLYP REMOVAL WITH BIOPSY PENDING Denies any signs and symptoms of bleeding or bruising or clotting. Bleeding, bruising, clotting discussed Nutritional guidance given - resume greens over the weeked Dose: She resume warfarin friday day of colonoscopy 5mg mon tue wed thur / she will resume usual dose 2.5mg daily and make sure to eat greens over the weekend F/U INR: 1 week due colonoscopy and booster doses Patient verbalizes understanding of instructions given Anti-Coag Initial Assessment Social Hx Patient Tobacco Use Status: Never used Tobacco alcohol intake: former Alcohol intake frequency: does not drink Cardiovascular Hx: HTN Lung Disease HX: DVT/PE Endocrine Hx: Thyroid Disease Musculoskeletal Hx: Arthritis Blood Disorder Hx: Anemia and Hyperlipidemia GI Hx: Ulcers, Diverticulosis and Hemorrhoids Hx: Other Neurological Hx: Migraines/Headaches and Other Cancer HX: No Psych. Illness/Depression: Yes Coding Level of Care Code Est Patient Level 1 Diagnoses Current use of anticoagulant therapy Z79.01 Results AMB INR Fingerstick AMB INR Fingerstick 2.6 Last Edit by Licha Muñoz RN on 01/21/25 14:03 manual entry Assessment & Plan Assessment & Plan (1) Current use of anticoagulant therapy: Code(s): Z79.01 - nursing home (current) use of anticoagulants Category: Medical
== END 2025-01-21 14:10 | disposition home or self-care (01) ==
LOC: HO.ACS 13:50
PROVIDERS: PCP Internal Medicine; Visit Provider Internal Medicine Medical Oncology
DX: Z79.01 Long term (current) use of anticoagulants (principal)

== ENCOUNTER 2025-01-28 13:11 | Outpatient (AMB) | payer OTHER, SELFPAY ==
--- OUTSIDE RECORDS SUMMARY | 2025-01-28 13:14 | XMS_ITS | Clinical Summary ---
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
[2025-01-28 13:30] LABS: Prothrombin Time Whole Bld POC 30.8 sec (11.1-13.5); ~PT, ~INR - Anti Coag Clinic 2.6 (0.9-1.1)
--- NOTE | 2025-01-28 13:34 | MHC.OFFVISCO ---
Intake Intake Visit Reasons: Anticoagulation Allergies lisinopril [LISINOPRIL] Allergy (Severe, Verified 01/28/25 13:17) ANGIOEDEMA dapagliflozin [From FARXIGA] Allergy (Intermediate, Verified 01/28/25 13:17) HIVES erythromycin base [ERYTHROMYCIN BASE] Allergy (Intermediate, Verified 01/28/25 13:17) Hives liraglutide [From VICTOZA] Allergy (Intermediate, Verified 01/28/25 13:17) RASH amitriptyline [AMITRIPTYLINE] Adverse Reaction (Intermediate, Verified 01/28/25 13:17) lethargy metformin [METFORMIN] Adverse Reaction (Intermediate, Verified 01/28/25 13:17) GI UPSET to short acting form-is taking long acting & OK Medication List - Last Reconciled 01/28/25 by Francine Mitchell RN acetaminophen ER 650 mg PO Q6H PRN albuterol sulfate 2.5 mg inhalation Q4H PRN albuterol sulfate 90 mcg/actuation (Ventolin HFA) 2 puffs inhalation Q6H PRN blood sugar diagnostic (FreeStyle Lite Strips) As directed blood-glucose meter (FreeStyle Lite Meter kit) Use daily As directed to check blood sugars compress.stocking,knee,reg,med 15-20 cm enoxaparin (Lovenox) 100 mg See Protocol subcut Q12H 5 days ferrous gluconate 324 mg PO DAILY furosemide (Lasix) 20 mg PO DAILY PRN levothyroxine 50 mcg PO QAM metformin ER 500 mg PO BID nebulizers As directed Oxygen Home Use As directed rosuvastatin 10 mg PO BEDTIME sertraline 100 mg PO DAILY sildenafil (pulm.hypertension) 20 mg PO TID 30 days tirzepatide (Mounjaro) 12.5 mg (0.5 mL) subcut QWEEK verapamil 40 mg PO BID warfarin 5 mg See Protocol PO DAILY 30 days Nursing Note INR: 2.6 in therapeutic range of 2-3 Medications and supplements reviewed No changes in health, diet, medications, or supplements, Denies any signs and symptoms of bleeding or bruising or clotting. Bleeding, bruising, clotting discussed Nutritional guidance given Dose: 2.5mg daily F/U INR: 2 weeks Patient verbalizes understanding of instructions given Anti-Coag Initial Assessment Social Hx Patient Tobacco Use Status: Never used Tobacco alcohol intake: former Alcohol intake frequency: does not drink Cardiovascular Hx: HTN Lung Disease HX: DVT/PE Endocrine Hx: Thyroid Disease Musculoskeletal Hx: Arthritis Blood Disorder Hx: Anemia and Hyperlipidemia GI Hx: Ulcers, Diverticulosis and Hemorrhoids Hx: Other Neurological Hx: Migraines/Headaches and Other Cancer HX: No Psych. Illness/Depression: Yes Coding Level of Care Code Est Patient Level 1 Diagnoses Current use of anticoagulant therapy Z79.01 Assessment & Plan Assessment & Plan (1) Current use of anticoagulant therapy: Code(s): Z79.01 - long term care social worker (current) use of anticoagulants Category: Medical
== END 2025-01-28 13:41 | disposition home or self-care (01) ==
LOC: HO.ACS 13:11
PROVIDERS: PCP Internal Medicine; Visit Provider Internal Medicine Medical Oncology
DX: Z79.01 Long term (current) use of anticoagulants (principal)

== ENCOUNTER → 2025-01-28 13:11 | Outpatient (BNVA) | payer OTHER, SELFPAY | PROVIDERS: PCP Internal Medicine; Visit Provider Internal Medicine Medical Oncology | DX: I26.99 Other pulmonary embolism without acute cor pulmonale (principal); Z79.01 Long term (current) use of anticoagulants; Z51.81 Encounter for therapeutic drug level monitoring | CPT/HCPCS: 85610; 99211 ==

== ENCOUNTER 2025-02-07 14:38 | Outpatient (REF) | payer OTHER, SELFPAY ==
[2025-02-07 15:02] LABS: MANUAL DIFF FLAG NO
--- OUTSIDE RECORDS SUMMARY | 2025-02-07 15:55 | XMS_ITS | Clinical Summary ---
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
[2025-02-07 16:01] LABS: Basophils Absolute Auto 0.1 X10*3/uL (0.0-0.2); Basophils Percent Auto 0.6 % (0-2); Eosinophils Absolute Auto 0.2 X10*3/uL (0.0-0.4); Eosinophils Percent Auto 2.3 % (0-4); Hematocrit 34.1 % (37.0-47.0); Hemoglobin 10.4 g/dl (12.0-16.0); Imm Gran Abs Auto 0.02 X10*3/uL (0.00-0.03); Imm Gran Pct Auto 0.2 % (0.0-0.4); Immature Retic Fraction 18.7 % (3.0-15.9); Lymphocytes Absolute Auto 2.7 X10*3/uL (1.2-4.9); Lymphocytes Percent Auto 33.1 % (20-40); Mean Corpuscular HGB Conc 30.5 g/dl (31.0-35.0); Mean Corpuscular Hemoglobin 21.7 pg (27.0-33.0); Mean Platelet Volume 11.6 fL (9.4-12.3); Monocytes Absolute Auto 0.7 X10*3/uL (0.1-1.2); Neutrophils Absolute Auto 4.6 x10*3/uL (2.0-8.3); Neutrophils Percent Auto 55.8 % (45-73); Platelet Count 177 X10*3/uL (160-400); Red Cell Distribution Width 16.9 % (11.0-16.0); Retic HGB Equivalent 24.6 pg (30.0-35.0); Reticulocyte Percent 1.2 % (0.5-1.8); Reticulocytes Absolute 0.058 X10*6/uL (0.026-0.095); White Blood Count 8.2 X10*3/uL (4.8-10.8)
[2025-02-07 17:16] LABS: Alanine Aminotransferase 8 U/L (0-31); Albumin Level 4.1 g/dL (3.5-5.0); Alkaline Phosphatase 83 U/L (39-117); Anion Gap 14 (12-20); Aspartate Amino Transferase 17 U/L (5-31); Bilirubin Total 0.5 mg/dL (0.0-1.0); Blood Urea Nitrogen 15 mg/dL (9-16); Calcium 9.2 mg/dL (8.4-10.2); Carbon Dioxide 26 mmol/L (22-29); Chloride 106 mmol/L (96-108); Cholesterol 143 mg/dL (<200); Estimated Glomerular Filt Rate 55; Glucose Fasting 95 mg/dL (60-99); HDL Cholesterol 42 mg/dL (>40); LDL Cholesterol Calculated 52 mg/dL (<100); Potassium 3.6 mmol/L (3.3-5.1); Sodium 142 mmol/L (135-145); Triglycerides 247 mg/dL (<150)
[2025-02-07 17:21] LABS: Ferritin 7 ng/mL (10-250); Free T4 (Free Thyroxine) 0.94 ng/dL (0.71-1.85); Thyroid Stimulating Hormone 1.58 uIU/mL (0.32-4.0)
== END 2025-02-07 14:39 | disposition home or self-care (01) ==
LOC: HO.LAB 14:38
PROVIDERS: PCP Internal Medicine Medical Oncology; Visit Provider Internal Medicine Medical Oncology
DX: E11.10 Type 2 diabetes mellitus with ketoacidosis without coma (principal); E66.01 Morbid (severe) obesity due to excess calories; D50.9 Iron deficiency anemia, unspecified; E03.9 Hypothyroidism, unspecified; D68.59 Other primary thrombophilia
CPT/HCPCS: 36415; 80053; 80061; 82728; 84439; 84443; 85025; 85045

== ENCOUNTER 2025-02-11 09:09 | Outpatient (AMB) | payer OTHER, SELFPAY ==
--- OUTSIDE RECORDS SUMMARY | 2025-02-11 09:36 | XMS_ITS | Clinical Summary ---
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
--- NOTE | 2025-02-11 09:53 | MHC.OFFVISCO ---
Intake Intake Visit Reasons: Anticoagulation Allergies lisinopril [LISINOPRIL] Allergy (Severe, Verified 02/11/25 09:56) ANGIOEDEMA dapagliflozin [From FARXIGA] Allergy (Intermediate, Verified 02/11/25 09:56) HIVES erythromycin base [ERYTHROMYCIN BASE] Allergy (Intermediate, Verified 02/11/25 09:56) Hives liraglutide [From VICTOZA] Allergy (Intermediate, Verified 02/11/25 09:56) RASH amitriptyline [AMITRIPTYLINE] Adverse Reaction (Intermediate, Verified 02/11/25 09:56) lethargy metformin [METFORMIN] Adverse Reaction (Intermediate, Verified 02/11/25 09:56) GI UPSET to short acting form-is taking long acting & OK Medication List - Last Reconciled 02/11/25 by Licha Muñoz RN acetaminophen ER 650 mg PO Q6H PRN albuterol sulfate 2.5 mg inhalation Q4H PRN albuterol sulfate 90 mcg/actuation (Ventolin HFA) 2 puffs inhalation Q6H PRN blood sugar diagnostic (FreeStyle Lite Strips) As directed blood-glucose meter (FreeStyle Lite Meter kit) Use daily As directed to check blood sugars compress.stocking,knee,reg,med 15-20 cm divalproex ER 250 mg PO DAILY enoxaparin (Lovenox) 100 mg See Protocol subcut Q12H 5 days ferrous gluconate 324 mg PO DAILY furosemide (Lasix) 20 mg PO DAILY PRN levothyroxine 50 mcg PO QAM metformin ER 500 mg PO BID nebulizers As directed Oxygen Home Use As directed rosuvastatin 10 mg PO BEDTIME sertraline 100 mg PO DAILY sildenafil (pulm.hypertension) 20 mg PO TID 30 days tirzepatide (Mounjaro) 12.5 mg (0.5 mL) subcut QWEEK warfarin 5 mg See Protocol PO DAILY 30 days Nursing Note INR: 2.4 in therapeutic range Medications and supplements reviewed has a new migraine med but she is not sure if she is going to take it or not due to side effects, she states her migraines are debilitating, PCP had labs drawn she was enc to discuss migrains with him also - maybe dietary/ electrolyte deficiency or something- she was instructed to call [facility] with any med or supplement changes * has Pulmonary appt today also Denies any signs and symptoms of bleeding or bruising or clotting. Bleeding, bruising, clotting discussed Nutritional guidance given Dose: keep same warfarin dose 2.5mg daily F/U INR: 2 weeks Patient verbalizes understanding of instructions given and to call with any medication changes Anti-Coag Initial Assessment Social Hx Patient Tobacco Use Status: Never used Tobacco alcohol intake: former Alcohol intake frequency: does not drink Cardiovascular Hx: HTN Lung Disease HX: DVT/PE Endocrine Hx: Thyroid Disease Musculoskeletal Hx: Arthritis Blood Disorder Hx: Anemia and Hyperlipidemia GI Hx: Ulcers, Diverticulosis and Hemorrhoids Hx: Other Neurological Hx: Migraines/Headaches and Other Cancer HX: No Psych. Illness/Depression: Yes Coding Level of Care Code Est Patient Level 1 Diagnoses Current use of anticoagulant therapy Z79.01 Results AMB INR Fingerstick AMB INR Fingerstick 2.4 Last Edit by Lihca Muñoz RN on 02/11/25 09:49 MANUAL ENTRY Assessment & Plan Assessment & Plan (1) Current use of anticoagulant therapy: Code(s): Z79.01 - group home (current) use of anticoagulants Category: Medical
[2025-02-11 10:01] LABS: Prothrombin Time Whole Bld POC 28.3 sec (11.1-13.5); ~PT, ~INR - Anti Coag Clinic 2.4 (0.9-1.1)
== END 2025-02-11 10:25 | disposition home or self-care (01) ==
LOC: HO.ACS 09:09
PROVIDERS: PCP Internal Medicine Medical Oncology; Visit Provider Internal Medicine Medical Oncology
DX: Z79.01 Long term (current) use of anticoagulants (principal)

== ENCOUNTER → 2025-02-11 09:09 | Outpatient (BNVA) | payer OTHER, SELFPAY | PROVIDERS: PCP Internal Medicine Medical Oncology; Visit Provider Internal Medicine Medical Oncology | DX: I26.99 Other pulmonary embolism without acute cor pulmonale (principal); Z79.01 Long term (current) use of anticoagulants; Z51.81 Encounter for therapeutic drug level monitoring; R06.09 Other forms of dyspnea; G47.33 Obstructive sleep apnea (adult) (pediatric); R60.0 Localized edema; I74.9 Embolism and thrombosis of unspecified artery; I27.20 Pulmonary hypertension, unspecified; I89.0 Lymphedema, not elsewhere classified | CPT/HCPCS: 85610; 99211; 99212 ==

== ENCOUNTER 2025-02-11 09:50 | Outpatient (AMB) | payer OTHER, SELFPAY ==
[2025-02-11 09:53] VITALS: BP 112/64; PULSE 84; O2SAT 98
--- NOTE | 2025-02-11 09:53 | A.OFFVIS_ITS ---
Vital Signs 02/11/25 09:53 Height 5 ft 5 in BMI Reason not done Patient refused/unable BP 112/64 Blood Pressure Location Lt radial Position Sitting Pulse 84 Pulse Source Pulse Oximeter Pulse Oximetry (%) 98 Oxygen Delivery Method Room Air Intake Visit Reasons: PE Legal Services Manager Required: No Accompanied by: Self / Same As Patient Allergies lisinopril [LISINOPRIL] Allergy (Severe, Verified 02/11/25 09:56) ANGIOEDEMA dapagliflozin [From FARXIGA] Allergy (Intermediate, Verified 02/11/25 09:56) HIVES erythromycin base [ERYTHROMYCIN BASE] Allergy (Intermediate, Verified 02/11/25 09:56) Hives liraglutide [From VICTOZA] Allergy (Intermediate, Verified 02/11/25 09:56) RASH amitriptyline [AMITRIPTYLINE] Adverse Reaction (Intermediate, Verified 02/11/25 09:56) lethargy metformin [METFORMIN] Adverse Reaction (Intermediate, Verified 02/11/25 09:56) GI UPSET to short acting form-is taking long acting & OK HPI Comments Details: The patient is a 49-year-old woman with a known history of pulmonary emboli currently on Eliquis presenting with worsening dyspnea symptoms. Patient complains of dyspnea on exertion. Moderate severity. denies any wheezing or coughing. The patient does not have any respiratory inhalers at this time. She denies any wheezing although she does have chest tightness. In addition to that the patient does have daytime drowsiness. Her [place] score is elevated 12/24. The patient does have cardiovascular risk factors. Patient needs to undergo home sleep study this time. We did review imaging studies that we have available including a CT scan of the chest angiogram ruling out pulmonary embolism in the spring. the lung parenchyma is also within normal limits which is reassuring. 08/16/2022 the patient is here for a pulmonary follow-up visit. The patient overall has been feeling relatively well. She still has some daytime drowsiness. Her [place] score is elevated 9/24. The patient did have a sleep study done. Appears that she was sleeping the most part on her back and she had a mild degree of sleep apnea with an AHI just above 5. her sleep apnea was less severe when she laid on her sides. Therefore she wants to try positional therapy for now. If she does not improved after positional therapy then can consider CPAP therapy. The patient also continues on the Eliquis. She is tolerating it well. No minor major bleeding noted. she did undergo pulmonary function studies personally by me demonstrating an isolated moderate diffusion i mpairment. We did talk about potentially chronic thromboembolic disease could result in this presentation. But she is also anemic and that can also result in the diffusing impairment as well. She is currently on iron. 10/25/2022 the patient is here for pulmonary follow-up visit. The patient has been complaining of increasing shortness of breath. Moderate severity. Also complaining of right-sided pleuritic chest pain. She went to the gym yesterday and she got short of breath and also felt dizzy. She did undergo blood work which we reviewed. She has an elevated white count in addition to a left shift suggesting an infectious process. On further questioning she has been coughing more recently. In addition to that she does complaint of that pleuritic discomfort. She did have blood work which we debrided reviewed together. White count is elevated consistent with an infectious process. In addition to that her D-dimer is elevated. On further questioning she is not taking her Eliquis correctly. She is only doing it daily. With her elevated D-dimer in the pleuritic chest pain in a history of previous blood clots the patient needs to get a repeat CT scan of the chest PE protocol. Will request 1 at this time. However, being Friday if the patient develops any worsening symptoms she should go to the ER. 01/09/2023 the patient is here for a pulmonary follow-up visit. The patient still having shortness of breath even after being hospitalized. She did increase her Eliquis medication to twice a day. The patient still has significant shortness of breath with minimal activity moderate severity. She complains of chest discomfort. She is wondering if the Eliquis is working. She did follow-up with her oncologist. It appears that she does have factor 5 Leiden putting her risk for blood clots and also her family. She needs to make sure the family is aware of this had artery disease. We did taken for walking oximetry the patient did desaturate down to 87% with activity and she was also tachycardic to 130. I am concerned that she may have at this point chronic thromboembolic disease. Will go ahead and order a V/Q scan and switch over to Coumadin. If the patient continues to have blood clots even after that will have to consider a referral to [place]. 02/06/2023 The patient is here for a follow up visit. Switched over to coumadin. But, then ended up with a tooth infection and placed on abx. Started developing headaches and blurry vision. She had her INR check and it was critically high 6.8. She is using the oxygen with good effect. Has an ECHO scheduled for next week. We will plan to repeat her VQ scan in 6-8 weeks, if no better, then will need a referral to [facility] for CTED. In the meantime, I did call the ED triage and took her to the ED to assess for an acute bleed for the supra therapeutic INR. 07/23/2023 the patient is here for a pulmonary follow-up visit. The patient continues to be about the same. Still having shortness of breath with activity. The oxygen has been affecting beneficial. She continues on the Coumadin. Her Coumadin levels continue to fluctuate. The patient did go to [place]. Chief deemed high risk for the pulmonary artery enterectomy therefore, the patient will undergo angioplasty. Will be broken up in about 3-4 procedures. She will have to switch over to Lovenox intermittently for the procedures. Will going to go ahead and work with the Coumadin clinic in order to do so effectively. She will continue with the oxygen for now. The patient also has to follow-up with her surgeon for the abnormal findings of the thyroid but that can hold and wait until she is stable from a pulmonary standpoint. She continues to work with her weblogic administrator regarding her diabetes which appears to be better. She will continue with current therapy. Will follow-up in a couple months after she has completed with her angioplasty and perform a 6 minutes walk test to see if we can titrate her down to a conserving device in order for her to have an easier time caring the oxygen. We can also consider the use of vasodilators very therapy. Will discuss that further with [place]. 11/11/2023 the patient is here for a pulmonary follow-up visit. She is status post angioplasty although pulmonary vessels. Unfortunately she continues to be short of breath. Her V/Q scan in [place] demonstrated some slight improvement per the patient's report. I do not have any objective data at this time. She continues use her oxygen with activity and also with sleep. She continues on the blood thinners currently on Coumadin. She is tolerating it well maintaining the INR within therapeutic range. We did take her briefly for walking oximetry to see if she can tolerated conserving device. But, the patient became very t achycardic and also dyspneic. The patient still has significant pulmonary hypertension due to the chronic thromboembolic disease. This is WHO group 4. in view of her ongoing symptoms of tachycardia shortness of breath this is consistent with a [place] Heart Association class 4 where she is short of breath even at rest. Therefore, will place on vasodilators therapy, PD 5 inhibitor, to treat her underlying pulmonary hypertension. The patient was start the medication and then returned 3 months but we can repeat her echocardiogram and also repeat her 6 minute walk test with the hope that she can tolerate then the conserving device. The patient is also having significant daytime drowsiness. Her Cr[place] score is elevated 08/01. She does have increased cardiovascular risk factors. The patient will benefit for another sleep study. She did have mild sleep apnea back in 2021. at this point she will require an in-lab sleep study. The patient will hold off for now but will further discuss it during her follow-up. 03/09/2024 the patient is here for a pulmonary follow-up visit. Since we last spoke the patient did undergo her thyroid surgery. She did tolerate well. However, after she did develop worsening shortness of breath. She was recommended to go to the ER. She went to [facility] ER. There she had a CTA. I did personally review. No evidence of any pulmonary emboli in no evidence of any airspace disease. Otherwise look reasonable. The patient did have blood work at [facility] demonstrating an elevated brain atretic peptide. The patient was treated and released. The patient does have her oxygen therapy although she has a hard time carrying the Tanks after surgery. She seems a little volume overload. We did review her last echocardiogram. She has a 1+ diastolic dysfunction. She does have slight increase in the right ventricular size but otherwise normal function and normal pulmonary pressures which is reassuring. She does continue on the sildenafil. She has tolerating the vasodilators well. She continues on the Coumadin. Her levels are slightly subtherapeutic. She will continue to work closely with the Coumadin clinic. 07/12/2024 the patient is here for a pulmonary follow-up visit. Since we last spoke she started developing left-sided pleuritic discomfort. She went to the ER this is an June. There she did have a chest x-ray. I personally reviewed. Appears that she has a small pleural effusion there that is new consistent with pleurisy. The patient's symptoms did improve. Will have to get a repeat x-ray to make sure things are better. She does continue to use the oxygen with good effect. In the office we did go for a walking oximetry and a conserving trial. She did very well on 2 L pulse maintaining a pulse ox of 96% with activity on 2 L pulse. She was still tachycardic throughout the ambulation consistent with a history of chronic thromboembolic disease. Her last echo was back in February and was reassuring pressures are better. Although will go ahead and repeat them specially because some concerned that with the angioplasty the results can reverse. If that is the case we can always consider increasing the Revatio. She continues to take Coumadin. She does have lower extremity edema but is asymmetrical with left more than right. Will go ahead and request a ultrasound to make sure she does not have a clot specially with the ongoing tachycardia. 10/14/2024 the patient is here for a pulmonary follow-up visit. Overall she is doing okay now. She did have some severe headaches and her INR was critically elevated at 13. at that point she went to the hospital she did have a CT of the brain without any evidence of any acute disease. She was given vitamin K. Afterwards her INR was very low and did not increase above 1. Therefore she had to go on Lovenox for some time. She did check her INR today was 2.3 which is reassuring. She is no longer having to the Lovenox. In the meantime the patient continues use the oxygen. She does complaint of dyspnea on exertion. We did review her last echocardiogram done in the fall demonstrating no evidence of any pulmonary hypertension which is reassuring. She continues on the sildenafil with good response. She also continues use the oxygen. She has also had significant amount of weight loss. Will continue to monitor her INR. If we still have issues with significant fluctuations of her INR then will look into switching her to a non vitamin K anticoagulation such as Xarelto. She had tried and failed Eliquis in the past. However, may have an issue with the fact that she had only been taking it once a day therefore with her weight loss we can consider other alternatives. She did not like the idea of staying on the Lovenox because he had significant amount of pain and bruising from the shots. 02/11/2025 The patient is here for pulmonary follow-up visit. The patient still complains of significant shortness of breath. Moderate severity. The oxygen is partially helpful. Her POC is also not working effectively. The arteries no longer charging. I did call the [employer] in order for him to get an urgent evaluation since she does need the oxygen. She continues on sildenafil. She has not seen any significant improvement with breathing. She has had significant amount of weight loss. She still continues on the Coumadin and has been therapeutic. Will go ahead and request a repeat echocardiogram and also V/Q scan. If the patient does have evidence of significant chronic thromboembolic disease now that her sugars are better controlled and she has had significant weight loss in her health is overall better we could consider sending her back to [place] to see if she will be a candidate for pulmonary arterial endarterectomy. We can also consider increasing the sildenafil in the meantime. Will follow-up in 2-3 months. If she has not issues prior to that she will call for an earlier assessment. [facility] Medical History CKD (chronic kidney disease) stage 4, GFR 15-29 ml/min PPD positive, treated Hx of angiography IBS (irritable bowel syndrome) Lymphedema Pleurisy with effusion Pulmonary hypertension Hypercoagulable state Thyroid cancer Chronic thromboembolic disease Lower extremity edema Multinodular thyroid Family history of deep venous thrombosis Pleuritic chest pain Dyspareunia in female Anemia Obstructive sleep apnea Morbid obesity History of COVID-19 (~2020) History of pulmonary embolus (PE) (~2020) Anxiety Chronic headaches Dyspnea on exertion Diabetes type 2, controlled Hypothyroid HTN (hypertension) Hyperlipidemia Surgical History Hx of partial thyroidectomy H/O colonoscopy History of surgery on right wrist History of foot surgery History of tubal ligation History of carpal tunnel surgery History of ERCP History of laparoscopic cholecystectomy History of surgery Family History Father Myocardial infarction COPD (chronic obstructive pulmonary disease) Mother COPD (chronic obstructive pulmonary disease) Brother Colitis Social History Housing: House Are you a primary director career to a significant other at home: No Do you presently have visiting nurse or other home services: Yes (home services for oxygen) Alcohol intake: former Comment: pt d/c home Patient Tobacco Use Status: Never used Tobacco service: No Current occupational status: employed 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, 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 Current occupational exposures/hazards: No Review of Systems Const Denies chills, Reports daytime sleepiness, Reports difficulty sleeping, Denies fever(s), Denies frequent falls, Reports headache(s), Denies night sweats, Reports snoring and Reports weight loss Eyes Reports blurry vision, Reports change in vision and Reports eye pain ENT Reports dizziness and Reports headache(s) Card Reports chest pain, Denies chest pain at rest, Denies chest pain with activity, Denies irregular heart rhythm, Denies claudication, Reports leg edema, Denies palpitations and Reports dyspnea on exertion Resp Denies cough, Reports pain on inspiration, Reports pain with cough, Reports dyspnea on exertion and Reports snoring Musc Reports deformity, Reports arthralgias, Reports joint swelling, Denies limited range of motion and Reports stiffness Neuro Reports dizziness, Denies frequent falls and Reports headache(s) Endo Denies palpitations Physical Exam Vital Signs: Last Vital Signs Pulse 84 02/11/25 09:53 BP 112/64 02/11/25 09:53 Pulse Ox 98 02/11/25 09:53 Oxygen Delivery Method Room Air 02/11/25 09:53 Const General: cooperative, healthy appearing, no acute distress and alert Orientation/consciousness: oriented to person, oriented to place and oriented to time Limitations: no limitations HEENT Head: Yes normal to inspection, Yes normocephalic and Yes atraumatic Mouth: moist mucous membranes Eyes Sclerae: sclerae normal Neck Neck: Yes normal visual inspection Chest Chest palpation & inspection: normal inspection of the chest Resp Effort & Inspection: normal respiratory effort and able to speak in complete sentences Auscultation: no wheezes and diminished lung sounds Cardio Jugular venous distension: no JVD Rate: tachycardic Rhythm: regular rhythm Heart sounds: S1 normal heart sound present and S2 normal heart sound present GI Inspection: Yes normal to inspection Skin General skin exam: no rashes or lesions noted Neuro General: oriented to person, oriented to place, oriented to time and moves all extremities Gait exam (Neuro): Antalgic gait present Motor exam (neuro): 5/5 motor strength present throughout Extrem General: Yes no clubbing, cyanosis or edema Right lower extremity: knee Details: abnormal to inspection, tenderness Location: of the patella and of the lateral joint line, abnormal ROM, crepitus Location: at the kneww, deformity and warmth; no swelling and no ecchymosis Left lower extremity: knee Details: abnormal to inspection, tenderness, abnormal ROM, crepitus, deformity and warmth; no swelling and no ecchymosis Psych Appearance: grossly normal Mental Status: mental status grossly normal Speech and movement: Normal speech and movement present and Clear speech present Affect: normal affect Attitude: cooperative Thought process: Normal thought process present Thought content: Normal thought content present Insight: Good insight present (Psych) Judgement: Good judgement present (Psych) Results AMB INR Fingerstick AMB INR Fingerstick 2.4 Last Edit by Licha Muñoz RN on 02/11/25 09:49 MANUAL ENTRY Assessment & Plan Assessment & Plan (1) Dyspnea: Code(s): R06.00 - Dyspnea, unspecified Category: Medical Qualifiers: Dyspnea type: dyspnea on exertion Qualified Code(s): R06.09 - Other forms of dyspnea (2) SERA (obstructive sleep apnea): Code(s): G47.33 - Obstructive sleep apnea (adult) (pediatric) Category: Medical (3) Bilateral pulmonary embolism: Code(s): I26.99 - Other pulmonary embolism without acute cor pulmonale Category: Medical (4) Lower extremity edema: Code(s): R60.0 - Localized edema Category: Medical (5) Chronic thromboembolic disease: Code(s): I74.9 - Embolism and thrombosis of unspecified artery Category: Medical (6) Pulmonary hypertension: Code(s): I27.20 - Pulmonary hypertension, unspecified Category: Medical (7) Lymphedema: Code(s): I89.0 - Lymphedema, not elsewhere classified Category: Medical (8) Pulmonary emboli: Code(s): I26.99 - Other pulmonary embolism without acute cor pulmonale Category: Medical Plan s/p Angioplasty continue Coumadin, monitor INR continue sildenafil TID ECHO Perfusion nuclear test continue Symbicort Coumadin clinic continue oxygen 2L with activity, qualifies for POC 2L/pulse for better portab ility outside of the home. [employer] to check POC LORRIE as needed compression stocking F/U 2-3 months Orders: Orders CA echo transthoracic complete 02/11/25 Odilon Land MD I27.20 - Pulmonary hypertension, unspecified XR chest 2V 02/11/25 Odilon Land MD I26.99 - Other pulmonary embolism without acute cor pulmonale, I27.20 - Pulmonary hypertension, unspecified NM pul perfusion 02/11/25 Odilon Land MD I26.99 - Other pulmonary embolism without acute cor pulmonale Medications: On Hold divalproex ER Hold Comment: pt not sure if she is going to take it 250 mg PO DAILY Licha Muñoz RN Coding Level of Care Code Est Pt Level 4 (90702) Complex EM visit Add On G2211 Diagnoses Dyspnea on exertion R06.09 Dyspnea type: dyspnea on exertion SERA (obstructive sleep apnea) G47.33 Bilateral pulmonary embolism I26.99 Lower extremity edema R60.0 Chronic thromboembolic disease I74.9 Pulmonary hypertension I27.20 Lymphedema I89.0 Pulmonary emboli I26.99 Time Spent (min) 18
== END 2025-02-11 10:24 | disposition home or self-care (01) ==
LOC: HO.HPS 09:51
PROVIDERS: PCP Internal Medicine; Visit Provider Hospitalist
DX: R06.09 Other forms of dyspnea (principal); G47.33 Obstructive sleep apnea (adult) (pediatric); I26.99 Other pulmonary embolism without acute cor pulmonale; R60.0 Localized edema; I74.9 Embolism and thrombosis of unspecified artery; I27.20 Pulmonary hypertension, unspecified; I89.0 Lymphedema, not elsewhere classified
CPT/HCPCS: 99214; G2211

== ENCOUNTER 2025-02-25 08:54 | Outpatient (AMB) | payer OTHER, SELFPAY ==
--- OUTSIDE RECORDS SUMMARY | 2025-02-25 09:01 | XMS_ITS | Clinical Summary ---
Author Organization [facility] Address [address] [place] [address] Care Team Providers Care Surveying Technician Name Role Phone Unavailable Primary Care Provider [...] Documents on File Type Date Recorded Patient Video Library Assistant Expl anation Health Care Decision (hx) 10/31/2020 AD MERCEDES DIRECTIVE
--- NOTE | 2025-02-25 09:20 | MHC.OFFVISCO ---
Intake Intake Visit Reasons: Anticoagulation Allergies lisinopril (LISINOPRIL) Allergy (Severe, Verified 02/25/25 09:11) ANGIOEDEMA dapagliflozin (From FARXIGA) Allergy (Intermediate, Verified 02/25/25 09:11) HIVES erythromycin base (ERYTHROMYCIN BASE) Allergy (Intermediate, Verified 02/25/25 09:11) Hives liraglutide (From VICTOZA) Allergy (Intermediate, Verified 02/25/25 09:11) RASH amitriptyline (AMITRIPTYLINE) Adverse Reaction (Intermediate, Verified 02/25/25 09:11) lethargy metformin (METFORMIN) Adverse Reaction (Intermediate, Verified 02/25/25 09:11) GI UPSET to short acting form-is taking long acting & OK Medication List - Last Reconciled 02/25/25 by Francine Mitchell RN acetaminophen ER 650 mg PO Q6H PRN albuterol sulfate 2.5 mg inhalation Q4H PRN albuterol sulfate 90 mcg/actuation (Ventolin HFA) 2 puffs inhalation Q6H PRN blood sugar diagnostic (FreeStyle Lite Strips) As directed blood-glucose meter (FreeStyle Lite Meter kit) Use daily As directed to check blood sugars compress.stocking,knee,reg,med 15-20 cm divalproex ER 250 mg PO DAILY Held on 02/11/25. Instructions: pt not sure if she is going to take it ferrous gluconate 324 mg PO DAILY furosemide (Lasix) 20 mg PO DAILY PRN levothyroxine 50 mcg PO QAM metformin ER 500 mg PO BID nebulizers As directed Oxygen Home Use As directed rosuvastatin 10 mg PO BEDTIME sertraline 100 mg PO DAILY sildenafil (pulm.hypertension) 20 mg PO TID 30 days tirzepatide (Mounjaro) 12.5 mg (0.5 mL) subcut QWEEK warfarin 5 mg See Protocol PO DAILY 30 days Nursing Note INR: 2.5 in therapeutic range 2.0 Medications and supplements reviewed No changes in health, diet, medications, or supplements, Denies any signs and symptoms of bleeding or bruising or clotting. Bleeding, bruising, clotting discussed Nutritional guidance given Dose: 2.5mg daily F/U INR: []Patient verbalizes understanding of instructions given Anti-Coag Initial Assessment Social Hx Patient Tobacco Use Status: Never used Tobacco alcohol intake: former Alcohol intake frequency: does not drink Cardiovascular Hx: HTN Lung Disease HX: DVT/PE Endocrine Hx: Thyroid Disease Musculoskeletal Hx: Arthritis Blood Disorder Hx: Anemia and Hyperlipidemia GI Hx: Ulcers, Diverticulosis and Hemorrhoids Hx: Other Neurological Hx: Migraines/Headaches and Other Cancer HX: No Psych. Illness/Depression: Yes Coding Level of Care Code Est Patient Level 1 Diagnoses Current use of anticoagulant therapy Z79.01 Results AMB INR Fingerstick AMB INR Fingerstick 2.5 Last Edit by Francine Mitchell RN on 02/25/25 09:17 interface delay Assessment & Plan Assessment & Plan (1) Current use of anticoagulant therapy: Code(s): Z79.01 - senior care (current) use of anticoagulants Category: Medical
[2025-02-25 09:36] LABS: Prothrombin Time Whole Bld POC 30.2 sec (11.1-13.5); ~PT, ~INR - Anti Coag Clinic 2.5 (0.9-1.1)
== END 2025-02-25 09:22 | disposition home or self-care (01) ==
LOC: HO.ACS 08:54
PROVIDERS: PCP Internal Medicine; Visit Provider Internal Medicine Medical Oncology
DX: Z79.01 Long term (current) use of anticoagulants (principal)

== ENCOUNTER → 2025-02-25 08:54 | Outpatient (BNVA) | payer OTHER, SELFPAY | PROVIDERS: PCP Internal Medicine; Visit Provider Internal Medicine Medical Oncology | DX: I26.99 Other pulmonary embolism without acute cor pulmonale (principal); Z79.01 Long term (current) use of anticoagulants; Z51.81 Encounter for therapeutic drug level monitoring | CPT/HCPCS: 85610; 99211 ==

== ENCOUNTER 2025-02-28 08:37 | Outpatient (REF) | payer OTHER, SELFPAY ==
--- OUTSIDE RECORDS SUMMARY | 2025-02-28 08:55 | XMS_ITS | Clinical Summary ---
Author Organization [facility] Address [address] [place] [address] Care Team Providers Care Manager Wound Name Role Phone Unavailable Primary Care Provider [...] Documents on File Type Date Recorded Patient Language Interpreter Expl anation Health Care Decision (hx) 10/31/2020 AD MERCEDES DIRECTIVE
[2025-02-28 09:17] LABS: Estimated Average Glucose 126 mg/dL; Total Hemoglobin (HGBA1C) 2751.3202 umol/L
[2025-02-28 09:58] LABS: Creatinine Urine 31.85 mg/dL; Microalbumin Urine < 5.0 mg/L
[2025-02-28 10:00] LABS: Alanine Aminotransferase 6 U/L (0-31); Albumin Level 4.1 g/dL (3.5-5.0); Alkaline Phosphatase 73 U/L (39-117); Anion Gap 15 (12-20); Aspartate Amino Transferase 17 U/L (5-31); Bilirubin Total 0.3 mg/dL (0.0-1.0); Blood Urea Nitrogen 8 mg/dL (9-16); Calcium 9.1 mg/dL (8.4-10.2); Carbon Dioxide 25 mmol/L (22-29); Chloride 105 mmol/L (96-108); Estimated Glomerular Filt Rate 50; Glucose Random 103 mg/dL (60-115); Potassium 4.3 mmol/L (3.3-5.1); Sodium 141 mmol/L (135-145); Total Protein 6.8 g/dL (6.5-8.0)
[2025-02-28 10:07] LABS: Thyroid Stimulating Hormone 2.09 uIU/mL (0.32-4.0)
== END 2025-02-28 08:38 | disposition home or self-care (01) ==
LOC: HO.LAB 08:37
PROVIDERS: PCP Internal Medicine; Visit Provider Internal Medicine
DX: Z00.00 Encounter for general adult medical examination without abnormal findings (principal); D63.8 Anemia in other chronic diseases classified elsewhere; E03.9 Hypothyroidism, unspecified; E11.9 Type 2 diabetes mellitus without complications; E78.00 Pure hypercholesterolemia, unspecified; F32.9 Major depressive disorder, single episode, unspecified; G44.219 Episodic tension-type headache, not intractable
CPT/HCPCS: 36415; 80053; 82570; 83036; 84443

== ENCOUNTER 2025-03-02 10:48 | Outpatient (REF) | payer OTHER, SELFPAY ==
--- NOTE | ~2025-03-02 | XR_ITS ---
CLINICAL HISTORY: I26.99 - Other pulmonary embolism without acute cor pulmonale 2 view chest x-ray Comparison: None provided Findings: Lungs are clear without acute infiltrates. No pneumothorax. Heart size normal. No acute bony abnormalities. Impression: No acute processes This document has been electronically signed by: Onesimo Schroeder MD on 03/02/2025 19:20:39
--- OUTSIDE RECORDS SUMMARY | 2025-03-02 12:46 | XMS_ITS | Clinical Summary ---
Author Organization [facility] Address [address] [place] [address] Care Team Providers Care Periodicals Library Assistant Name Role Phone Unavailable Primary Care [...] Documents on File Type Date Recorded Patient Para Operator Expl anation Health Care Decision (hx) 10/31/2020 AD MERCEDES DIRECTIVE
== END 2025-03-02 10:49 | disposition home or self-care (01) ==
LOC: HO.XRAY 10:48
PROVIDERS: PCP Internal Medicine; Visit Provider Hospitalist
DX: I26.99 Other pulmonary embolism without acute cor pulmonale (principal); I27.20 Pulmonary hypertension, unspecified
CPT/HCPCS: 71046

== ENCOUNTER → 2025-03-02 10:51 | Outpatient (BNV) | payer OTHER, SELFPAY | PROVIDERS: PCP Internal Medicine; Visit Provider Radiology Diagnostic Radiology | DX: I26.99 Other pulmonary embolism without acute cor pulmonale (principal) | CPT/HCPCS: 71046 ==

== ENCOUNTER → 2025-03-03 09:13 | Outpatient (REF) | payer OTHER, SELFPAY ==
--- NOTE | ~2025-03-03 | NM_ITS ---
EXAMINATION: Ventilation/perfusion nuclear medicine study. CLINICAL INDICATION: History of PE. Short of breath COMPARISON: Lung perfusion exam 04/01/2023 TECHNIQUE: Following intravenous administration of 4 mCi of technetium 99m MAA, imaging over both lungs were obtained in multiple projections. FINDINGS: There are multiple small subsegmental defects especially right lower lobe superior, lower lobe basilar segment left apical segment. These are new defects suspicious for PE. NM/NM pul perfusion IMPRESSION: Slightly larger perfusion defects compared to previous exam 04/01/2023 suggestive of PE. Electronically signed by: Cristofer Jung MD 03/03/2025 12:23 PM EDT
--- OUTSIDE RECORDS SUMMARY | 2025-03-03 10:04 | XMS_ITS | Clinical Summary ---
Author Organization [facility] Address [address] [place] [address] Care Team Providers Care Property Man Name Role Phone Unavailable Primary Care Provider [...] Documents on File Type Date Recorded Patient Core Fitter Expl anation Health Care Decision (hx) 10/31/2020 AD MERCEDES DIRECTIVE
== END ==
LOC: HO.NUCMED 09:13
PROVIDERS: PCP Internal Medicine; Visit Provider Hospitalist
DX: I26.99 Other pulmonary embolism without acute cor pulmonale (principal)
CPT/HCPCS: 78580; A9540

== ENCOUNTER → 2025-03-03 09:18 | Outpatient (BNV) | payer OTHER, SELFPAY | PROVIDERS: PCP Internal Medicine; Visit Provider Radiology Diagnostic Radiology | DX: R06.02 Shortness of breath (principal) | CPT/HCPCS: 78580 ==

== ENCOUNTER 2025-03-17 13:04 | Outpatient (AMB) | payer OTHER, SELFPAY ==
--- OUTSIDE RECORDS SUMMARY | 2025-03-17 13:09 | XMS_ITS | Clinical Summary ---
Author Organization [facility] Address [address] [place] [address] Care Team Providers Care Zoo Veterinarian Name Role Phone Unavailable Primary Care Provider [...] Vaccines (1 of 2) 2024 Influenza Vaccine (#1) 2025 HIB Vaccines Aged Out No longer [...] 5 Years) and At-Risk Patients (6 to 49 Years) Aged Out No longer eligible b ased on patient's age to complete this topic RSV Immunization Patients Un landon 20 months Aged Out No longer eligible b ased on patient's age to complete this topic Varicella Vaccines Aged Out No longer eligible based on patient's age to complete this topic Advance Directives Documents on File Type Date Recorded Patient Senior Accounts Payable Clerk Expl anation Health Care Decision (hx) 10/31/2020 AD MERCEDES DIRECTIVE
--- NOTE | 2025-03-17 13:11 | A.OFFVIS_ITS ---
Intake Visit Reasons: 6 wks Allergies lisinopril (LISINOPRIL) Allergy (Severe, Verified 02/25/25 09:11) ANGIOEDEMA dapagliflozin (From FARXIGA) Allergy (Intermediate, Verified 02/25/25 09:11) HIVES erythromycin base (ERYTHROMYCIN BASE) Allergy (Intermediate, Verified 02/25/25 09:11) Hives liraglutide (From VICTOZA) Allergy (Intermediate, Verified 02/25/25 09:11) RASH amitriptyline (AMITRIPTYLINE) Adverse Reaction (Intermediate, Verified 02/25/25 09:11) lethargy metformin (METFORMIN) Adverse Reaction (Intermediate, Verified 02/25/25 09:11) GI UPSET to short acting form-is taking long acting & OK Medication List - Last Reconciled 03/17/25 by Polo Mitchell MD acetaminophen ER 650 mg PO Q6H PRN albuterol sulfate 2.5 mg inhalation Q4H PRN albuterol sulfate 90 mcg/actuation (Ventolin HFA) 2 puffs inhalation Q6H PRN blood sugar diagnostic (FreeStyle Lite Strips) As directed blood-glucose meter (FreeStyle Lite Meter kit) Use daily As directed to check blood sugars compress.stocking,knee,reg,med 15-20 cm ferrous gluconate 324 mg PO DAILY furosemide (Lasix) 20 mg PO DAILY PRN levothyroxine 50 mcg PO QAM metformin ER 500 mg PO BID nebulizers As directed Oxygen Home Use As directed rimegepant (Nurtec ODT) 75 mg PO Q OTHER DAY rosuvastatin 10 mg PO BEDTIME sertraline 100 mg PO DAILY sildenafil (pulm.hypertension) 20 mg PO TID 30 days tirzepatide (Mounjaro) 12.5 mg (0.5 mL) subcut QWEEK warfarin 5 mg See Protocol PO DAILY 30 days HPI Comments Details: 49 yo woman with pulmonary embolisms, oxygen dependent related to issues related to PE, and migraine headaches. Depakote did not make a difference and she was still having headaches 4 to 5 times a week. [facility] Medical History (Updated 03/17/25 @ 13:16 by Polo Mitchell MD) Migraine without aura CKD (chronic kidney disease) stage 4, GFR 15-29 ml/min PPD positive, treated Hx of angiography IBS (irritable bowel syndrome) Lymphedema Pleurisy with effusion Pulmonary hypertension Hypercoagulable state Thyroid cancer Chronic thromboembolic disease Lower extremity edema Multinodular thyroid Family history of deep venous thrombosis Pleuritic chest pain Dyspareunia in female Anemia Obstructive sleep apnea Morbid obesity History of COVID-19 (~2020) History of pulmonary embolus (PE) (~2020) Anxiety Chronic headaches Dyspnea on exertion Diabetes type 2, controlled Hypothyroid HTN (hypertension) Hyperlipidemia Surgical History Hx of partial thyroidectomy H/O colonoscopy History of surgery on right wrist History of foot surgery History of tubal ligation History of carpal tunnel surgery History of ERCP History of laparoscopic cholecystectomy History of surgery Family History (Updated 03/17/25 @ 11:04 by Maida Neri MA) Father Myocardial infarction COPD (chronic obstructive pulmonary disease) Mother COPD (chronic obstructive pulmonary disease) Brother Colitis Daughter Headache Social History Housing: House Are you a primary rn critical care to a significant other at home: No Do you presently have visiting nurse or other home services: Yes (home services for oxygen) Alcohol intake: former Comment: pt d/c home Patient Tobacco Use Status: Never used Tobacco service: No Current occupational status: employed 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 HEENT:?No headache, vision changes, hearing loss, nasal congestion, sore throat. Neurological:? Complain of headache Psychiatric:?No anxiety, depression, mood swings, sleep disturbance, or hallucinations. Endocrine:?No heat/cold intolerance, polydipsia, polyuria, or hair/skin changes. Hematologic/Lymphatic:?No easy bruising, bleeding, or lymphadenopathy. Integumentary (Skin):?No rash, lesions, itching, or color changes. ? Physical Exam Neuro Other: Mental Status: Alert and oriented to person, place, and time. Normal attention. Normal spontaneous speech, fluency, and comprehension. No obvious issues with mood and memory. Affect is appropriate. Cranial Nerves: CN II: Visual perry full to confrontation, visual acuity intact. CN III, IV, : Pupils equal, round, reactive to light and accommodation. Extraocular movements are normal. CN V: Facial sensation is normal. CN VII: Facial movements symmetrical. CN VIII: Hearing intact to bedside conversation is normal. CN IX, X: Palate elevates symmetrically. CN XI: Shoulder shrug and head turn symmetrical. CN XII: Tongue midline without atrophy or fasciculations. Extrapyramidal: Full facial expressions and blinking. No rigidity. Movements are appropriate with no tremor or abnormality. Speech: Normal; no dysarthria or tremor. Assessment & Plan Assessment & Plan (1) Migraine without aura: Comment: Meds tried for migraine: Topiramate, Amitriptyline, Cannot take propranolol due to lung disease, Verapamil, Depakote CT brain WO at [facility] in Jun 2015: mild to mod bifrontal atrophy Code(s): G43.009 - Migraine without aura, not intractable, without status migrainosus Category: Medical Qualifiers: Status migrainosus presence: without status migrainosus Intractability: intractable Qualified Code(s): G43.019 - Migraine without aura, intractable, without status migrainosus (2) Anxiety disorder: Code(s): F41.9 - Anxiety disorder, unspecified Category: Medical Qualifiers: Anxiety disorder type: other anxiety disorder Qualified Code(s): F41.8 - Other specified anxiety disorders Plan Impression: Chronic intractable migraine without aura not responsive to multiple preventive medicines Recommendations: Nurtec 75 mg [id number] Medications: New rimegepant (Nurtec ODT) 75 mg PO Q OTHER DAY 14 tabs 2RF Coding Level of Care Code Tele Est Pt Level 4 (09716) Diagnoses Intractable migraine without aura and without status migrainosus G43.019 Status migrainosus presence: without status migrainosus Intractability: intractable Other specified anxiety disorders F41.8 Anxiety disorder type: other anxiety disorder
== END 2025-03-17 13:21 | disposition home or self-care (01) ==
LOC: HO.HSM 13:05
PROVIDERS: PCP Internal Medicine Medical Oncology; Visit Provider Psychiatry & Neurology Neurology
DX: G43.019 Migraine without aura, intractable, without status migrainosus (principal); F41.8 Other specified anxiety disorders
CPT/HCPCS: 99214

== ENCOUNTER → 2025-03-17 13:04 | Outpatient (BNVA) | payer OTHER, SELFPAY | PROVIDERS: PCP Internal Medicine Medical Oncology; Visit Provider Psychiatry & Neurology Neurology | DX: I26.99 Other pulmonary embolism without acute cor pulmonale (principal); G43.719 Chronic migraine without aura, intractable, without status migrainosus; F41.8 Other specified anxiety disorders; Z51.81 Encounter for therapeutic drug level monitoring; Z79.01 Long term (current) use of anticoagulants; Z99.81 Dependence on supplemental oxygen | CPT/HCPCS: 85610; 99211; 99212 ==

== ENCOUNTER 2025-03-17 14:13 | Outpatient (AMB) | payer OTHER, SELFPAY ==
[2025-03-17 14:21] LABS: Prothrombin Time Whole Bld POC 11.8 sec (11.1-13.5); ~PT, ~INR - Anti Coag Clinic 1.0 (0.9-1.1)
--- NOTE | 2025-03-17 14:39 | MHC.OFFVISCO ---
Intake Intake Visit Reasons: Anticoagulation Allergies lisinopril (LISINOPRIL) Allergy (Severe, Verified 03/17/25 14:13) ANGIOEDEMA dapagliflozin (From FARXIGA) Allergy (Intermediate, Verified 03/17/25 14:13) HIVES erythromycin base (ERYTHROMYCIN BASE) Allergy (Intermediate, Verified 03/17/25 14:13) Hives liraglutide (From VICTOZA) Allergy (Intermediate, Verified 03/17/25 14:13) RASH amitriptyline (AMITRIPTYLINE) Adverse Reaction (Intermediate, Verified 03/17/25 14:13) lethargy metformin (METFORMIN) Adverse Reaction (Intermediate, Verified 03/17/25 14:13) GI UPSET to short acting form-is taking long acting & OK Medication List - Last Reconciled 03/17/25 by Yola Herring RN acetaminophen ER 650 mg PO Q6H PRN albuterol sulfate 2.5 mg inhalation Q4H PRN albuterol sulfate 90 mcg/actuation (Ventolin HFA) 2 puffs inhalation Q6H PRN blood sugar diagnostic (FreeStyle Lite Strips) As directed blood-glucose meter (FreeStyle Lite Meter kit) Use daily As directed to check blood sugars compress.stocking,knee,reg,med 15-20 cm ferrous gluconate 324 mg PO DAILY furosemide (Lasix) 20 mg PO DAILY PRN levothyroxine 50 mcg PO QAM metformin ER 500 mg PO BID nebulizers As directed Oxygen Home Use As directed rimegepant (Nurtec ODT) 75 mg PO Q OTHER DAY rosuvastatin 10 mg PO BEDTIME sertraline 100 mg PO DAILY sildenafil (pulm.hypertension) 20 mg PO TID 30 days tirzepatide (Mounjaro) 12.5 mg (0.5 mL) subcut QWEEK warfarin 5 mg See Protocol PO DAILY 30 days Nursing Note PT. IS CERTAIN THAT SHE HAS NOT MISSED ANY WARFARIN DOSES. SHE HAS HAD NO MED OR DIET CHANGES,FALLS OR SX OF BLEEDING. BOOST WARFARIN 3 DAYS AND RECHECK INR ON 03/21/25. START BID LOVENOX TODAY (PT.HAS ON HAND): VERBAL ORDER PER (HIMSELF). CONTINUE LOVENOX UNTIL INR IS THERAPEUTIC Anti-Coag Initial Assessment Social Hx Patient Tobacco Use Status: Never used Tobacco alcohol intake: former Alcohol intake frequency: does not drink Cardiovascular Hx: HTN Lung Disease HX: DVT/PE Endocrine Hx: Thyroid Disease Musculoskeletal Hx: Arthritis Blood Disorder Hx: Anemia and Hyperlipidemia GI Hx: Ulcers, Diverticulosis and Hemorrhoids Hx: Other Neurological Hx: Migraines/Headaches and Other Cancer HX: No Psych. Illness/Depression: Yes Coding Level of Care Code Est Patient Level 1 Diagnoses Current use of anticoagulant therapy Z79.01 Assessment & Plan Assessment & Plan (1) Current use of anticoagulant therapy: Code(s): Z79.01 - long-term (current) use of anticoagulants Category: Medical
== END 2025-03-17 15:25 | disposition home or self-care (01) ==
LOC: HO.ACS 14:13
PROVIDERS: PCP Internal Medicine Medical Oncology; Visit Provider Internal Medicine Medical Oncology
DX: Z79.01 Long term (current) use of anticoagulants (principal)

== ENCOUNTER 2025-03-21 15:15 | Outpatient (AMB) | payer OTHER, SELFPAY ==
[2025-03-21 15:26] LABS: Prothrombin Time Whole Bld POC 23.3 sec (11.1-13.5); ~PT, ~INR - Anti Coag Clinic 1.9 (0.9-1.1)
--- NOTE | 2025-03-21 15:38 | MHC.OFFVISCO ---
Intake Intake Visit Reasons: Anticoagulation Allergies lisinopril (LISINOPRIL) Allergy (Severe, Verified 03/21/25 15:18) ANGIOEDEMA dapagliflozin (From FARXIGA) Allergy (Intermediate, Verified 03/21/25 15:18) HIVES erythromycin base (ERYTHROMYCIN BASE) Allergy (Intermediate, Verified 03/21/25 15:18) Hives liraglutide (From VICTOZA) Allergy (Intermediate, Verified 03/21/25 15:18) RASH amitriptyline (AMITRIPTYLINE) Adverse Reaction (Intermediate, Verified 03/21/25 15:18) lethargy metformin (METFORMIN) Adverse Reaction (Intermediate, Verified 03/21/25 15:18) GI UPSET to short acting form-is taking long acting & OK Medication List - Last Reconciled 03/21/25 by Licha Muñoz RN acetaminophen ER 650 mg PO Q6H PRN albuterol sulfate 2.5 mg inhalation Q4H PRN albuterol sulfate 90 mcg/actuation (Ventolin HFA) 2 puffs inhalation Q6H PRN blood sugar diagnostic (FreeStyle Lite Strips) As directed blood-glucose meter (FreeStyle Lite Meter kit) Use daily As directed to check blood sugars compress.stocking,knee,reg,med 15-20 cm ferrous gluconate 324 mg PO DAILY furosemide (Lasix) 20 mg PO DAILY PRN levothyroxine 50 mcg PO QAM metformin ER 500 mg PO BID nebulizers As directed Oxygen Home Use As directed rimegepant (Nurtec ODT) 75 mg PO Q OTHER DAY rosuvastatin 10 mg PO BEDTIME sertraline 100 mg PO DAILY sildenafil (pulm.hypertension) 20 mg PO TID 30 days tirzepatide (Mounjaro) 12.5 mg (0.5 mL) subcut QWEEK warfarin 5 mg See Protocol PO DAILY 30 days Nursing Note INR 1.9 out of therapeutic range- Up from 1.0 - on 03/17/25 no reason for low INR per pt Medications and supplements reviewed Patient status: states she does not feel well today - headache for a week now with shooting pains yesterday left and right, pain is better today but has some some numbing left side around eye into the cheek. pt enc to call MD or go to ER especially if worsens in anyway. Enc to drink more water in the hot weather. Going Medications or supplements: on lovenox - enc to cont lovenox today and tomorrow Diet: good Denies any signs and symptoms of bleeding or clotting or unusual bruising Bleeding, bruising, clotting discussed Nutritional guidance given: avoid greens today and tomorrow, then resume usual diet Dose: 5mg mwf/ 2.5mg x 4 days F/U INR Date: 03/25/25 ?? Patient verbalizing understanding of instructions given. Anti-Coag Initial Assessment Social Hx Patient Tobacco Use Status: Never used Tobacco alcohol intake: former Alcohol intake frequency: does not drink Cardiovascular Hx: HTN Lung Disease HX: DVT/PE Endocrine Hx: Thyroid Disease Musculoskeletal Hx: Arthritis Blood Disorder Hx: Anemia and Hyperlipidemia GI Hx: Ulcers, Diverticulosis and Hemorrhoids Hx: Other Neurological Hx: Migraines/Headaches and Other Cancer HX: No Psych. Illness/Depression: Yes Coding Level of Care Code Est Patient Level 1 Diagnoses Current use of anticoagulant therapy Z79.01 Assessment & Plan Assessment & Plan (1) Current use of anticoagulant therapy: Code(s): Z79.01 - long-term (current) use of anticoagulants Category: Medical
--- OUTSIDE RECORDS SUMMARY | 2025-03-21 16:30 | XMS_ITS | Clinical Summary ---
Author Organization [facility] Address [address] [place] [address] Care Team Providers Care Baling Machine Tender Name Role Phone Unavailable Primary Care Provider [...] Documents on File Type Date Recorded Patient [place] Expl anation Health Care Decision (hx) 10/31/2020 AD MERCEDES DIRECTIVE
== END 2025-03-21 15:51 | disposition home or self-care (01) ==
LOC: HO.ACS 15:15
PROVIDERS: PCP Internal Medicine Medical Oncology; Visit Provider Internal Medicine Medical Oncology
DX: Z79.01 Long term (current) use of anticoagulants (principal)

== ENCOUNTER → 2025-03-21 15:15 | Outpatient (BNVA) | payer OTHER, SELFPAY | PROVIDERS: PCP Internal Medicine Medical Oncology; Visit Provider Internal Medicine Medical Oncology | DX: I26.99 Other pulmonary embolism without acute cor pulmonale (principal); Z79.01 Long term (current) use of anticoagulants; Z51.81 Encounter for therapeutic drug level monitoring | CPT/HCPCS: 85610; 99211 ==

== ENCOUNTER → 2025-03-22 07:45 | Outpatient (REF) | payer OTHER, SELFPAY ==
--- NOTE | 2025-03-22 07:48 | CA_ITS ---
Transthoracic Echocardiogram Patient (Last, First, Middle): Domonique Bro S Gender: Female Date of : 1975 Age: 49 Procedure Date: 03/22/2025 Procedure Type: Transthoracic Echocardiogram Location: OP Height: 165.1 cm Weight: 111.59 kg BSA: 2.16 m2 Heart Rate: 86 bpm BP: 112 / 64 mmHg Sampling Expert: SB Referring MD: Odilon Land MD Symptoms: I27.20 - Pulmonary hypertension, unspecified Study Quality: Fair ECG Rhythm: Sinus Conclusions: - The left ventricular systolic function is low normal. The visually estimated ejection fraction is between 50-55%. - No obvious valvular pathology seen on this study. - There is no evidence of pulmonary hypertension. Findings Procedure Information The quality of the study was technically difficult. The study quality is limited by lung artifact. Left Ventricle Normal left ventricular cavity size. There is mildly increased left ventricular wall thickness. The left ventricular systolic function is low normal. The visually estimated ejection fraction is between 50-55%. Diastolic function is normal for age. Right Ventricle Normal right ventricular cavity size. There is mildly decreased right ventricular systolic function. Atria Both atria are normal in size. Aortic Valve There is a normal trileaflet aortic valve. There is mild calcification of the aortic valve. There is no aortic valve stenosis. There is no aortic valve regurgitation. Mitral Valve The mitral valve appears normal. There is no mitral valve regurgitation. There is no mitral valve stenosis. Pulmonic Valve The pulmonic valve is likely normal. Tricuspid Valve There is trace tricuspid valve regurgitation. There is no evidence of pulmonary hypertension. Great Vessels The asc aorta is normal in size. Small plaque is seen in the sino tubular ridge. Venous The inferior vena cava is normal in size and collapses greater than 50% with inspiration. Pericardium/Pleural There is no evidence of pericardial effusion. Prior Study Comparison No significant change compared to prior study dated: 08/03/2024. Recommendations, Care & Conclusions No obvious valvular pathology seen on this study. Measurements 2D Linear Measurements IVSd: 1.16 0.6-0.9/0.6-1.0 cm LVIDd: 4.02 3.9-5.3/4.2-5.9 cm LVIDd Index: 1.86 2.4-3.2/2.2-3.1 cm/m2 LVIDs: 2.64 2.0-3.6 cm LVPWd: 1.08 0.7-1.1 cm LA Diam: 3.50 2.7-3.8/3.0-4.0 cm LAIDs Index: 1.62 1.5-2.3 cm/m2 LV Mass: 187.56 67-162/88-224 g LV Mass Index: 86.83 43-95/49-115 g/m2 LVOT Diam: 2.10 3.0+(-)1.3 cm 2D Systolic Function EF 4C: 57.80 >55% EF 2C: 49.50 >55% EF BiP: 54.80 >55% Mitral Valve MV Pk E: 0.65 MV PK A: 0.68 MV Decel Time: 171.00 E/A: 1.00 E'Lateral: 9.25 E'Medial: 6.64 E/E' Med: 9.80 E/E' Lat: 7.00 PHT: 50.00 MVA PHT: 4.40 Decel [place]: 3.80 Aortic Valve AoV Pk Juvencio: 1.24 AoV Pk Grad: 6.00 VINI: 2.00 LVOT LVOT Pk Juvencio: 0.72 LVOT Mn Juvencio: 0.53 LVOT VTI: 0.15 LVOT Pk Grad: 2.00 LVOT Mn Grad: 1.00 LVOT Diam: 2.10 LVOT Area: 3.46 Diastolic Function MV Pk E: 0.65 MV Pk A: 0.68 E/A: 1.00 E'Medial: 6.64 E/E' Med: 9.80 E' Laterial: 9.25 E/E' Lat: 7.00 Right Ventricle TAPSE (mm): 16.30 TVS' Juvencio: 7.62 Tricuspid Valve TR Pk Juvencio: 2.06 TR Pk Grad: 17.00 RA Press: 3.00 RVSP: 20.00 Great Vessels Aorta Sinus of Valsalva: 2.80 2.0-3.5 cm Ao Asc: 3.30 2.1-3.4 cm Pulmonary Valve PV Pk Juvencio: 0.80 Peak PV Grad: 3.00 Updated in Other Vendor System with Status of Final Olegario Mary MD electronically signed on 03/23/2025 4:35:14 PM with status of Final
== END ==
LOC: HO.CARD 07:45
PROVIDERS: PCP Internal Medicine; Visit Provider Hospitalist
DX: I27.20 Pulmonary hypertension, unspecified (principal)
CPT/HCPCS: 93306

== ENCOUNTER → 2025-03-22 07:48 | Outpatient (BNV) | payer OTHER, SELFPAY | PROVIDERS: PCP Internal Medicine; Visit Provider Internal Medicine | DX: I35.8 Other nonrheumatic aortic valve disorders (principal) | CPT/HCPCS: 93306 ==

== ENCOUNTER 2025-03-25 12:59 | Outpatient (AMB) | payer OTHER, SELFPAY ==
--- OUTSIDE RECORDS SUMMARY | 2025-03-25 13:00 | XMS_ITS | Encounter Summary ---
Author Organization [facility] Address [address] [place] [address] [address] [place] [address] Phone Care Team Providers Care Repairer Helper Name Role Phone Deena Workman MD Primary Care Provider Reason for Referral * Outpatient Procedure - Closed Specialty Diagnoses / Procedures Referred By Contac t Referred To Contact Radiology Diagnoses Dyspnea, unspecified Pulmonary embolism Procedures NM Lung Perfusion Imaging NM Lung Ventilation and Perfusion Imaging NM Lung Perfusion and Ventilation Differential Quantification NM Lung Perfusion Imaging NM Lung Ventilation and Perfusion Imaging ID PULMONARY VENTILATION & PERFUSION IMAGING ID QUANT DIFF PULM PRFUSION & VENTLAJ W/WO IMAGING Nick Barnard MD Phone: tel: fax: mailto:[email or web address] Referral ID Status Reason Start Date Expiration Date Visits Re quested Visits Authorized [id number] Closed 08/14/2023 1 1 Encounter Details Date Type Department Care Team (Late st Contact Info) Description 10/13/2023 Ancillary Orders [facility] [address] [facility], [address], [address] [place] [address] Nick Barnard MD [address] [place] [address] [address] [place] [address] [email or web address]@ [email or web address] Dyspnea, unspecified (Primary Dx); Pulmonary embolism Social History Tobacco Use Types Packs/Day Years Used Date Smoking Tobacco: Never Alcohol Use Standard Drinks/Week Comments Not Currently 0 (1 standard drink = 0.6 oz pur e alcohol) Education Answer Date Recorded Are you interested in more education? Not on tatiana e 04/25/2023 Are you concerned about learning? Not on file 04/25/2023 No 04/25/2023 No 04/25/2023 Digital Access Answer Date Recorded No 04/25/2023 No 04/25/2023 Reliable internet access at home? Not on file 04/25/2023 Device with a working camera? Not on file Intimate Partner Violence Answer Date R ecorded Are you denied basic needs s uch as food, clothing, or medical care? No 08/11/2023 In the past 12 months have y ou been in a relationship with a person who hurts, threatens, or tries to control you? No 08/11/2023 Are you denied basic needs s uch as food, clothing, or medical care? No 08/11/2023 In the past 12 months have y ou been in a relationship with a person who hurts, threatens, or tries to control you? No 08/11/2023 Comments Unknown Sex and Gender Information Value Date Recorded Sex Assigned at Female 04/11/2023 2:28 PM EDT Legal Sex Female 2:26 PM EDT Gender Identity Female 04/11/2023 2:28 PM EDT Sexual Orientation Straight 04/11/2023 2: 28 PM EDT documented as of this encounter Plan of Treatment Not on file documented as of this encounter Results * NM Lung Perfusion Imaging (10/13/2023 11:56 AM EST) Anatomical Region Laterality Modality Chest, Lung Nuclear Medicine 10/13/2023 1:01 PM EST Impressions 10/13/2023 6:10 PM EST Impression: Compared to 01/23/2023: * Significant interval improvement in the previously seen perfusion defects particularly in the bilateral lower lobes. * No definite new moderate or large segmental perfusion defects. ATTESTATION: I, Dr. Isabel Schmidt as teaching physician, have reviewed the images for this case and if necessary edited the report originally created by Dr. Luis Benson. Narrative 10/13/2023 6:10 PM EST FL LUNG PERFUSION IMAGING Lung Perfusion Scan COMPARISON: Prior outside V/Q Scan dated 01/23/2023. Technique: 7.73 mCi of technetium-99m MAA were injected intravenously and perfusion images of the lungs were obtained. Of note, ventilation phase was not acquired as the patient became dyspneic while practicing the maneuver despite 10 L of supplemental oxygen given through tubing. Findings: Perfusion images demonstrate heterogeneous distribution of the radiotracer. Overall, perfusion has significantly improved compared to the prior outside V/Q scan dated 01/23/2023 particularly at the sites of previously seen defects in the lower lobes at the bases, with some residual heterogeneity of perfusion, particularly in the left lower lobe. There are no new moderate or large segmental perfusion defects suspicious for new pulmonary embolism. Procedure Note Isabel Schmidt MD - 10/13/2023 [place] LUNG PERFUSION IMAGING Lung Perfusion Scan COMPARISON: Prior outside V/Q Scan dated 01/23/2023. Technique: 7.73 mCi of technetium-99m MAA were injected intravenously andperfusion images of the lungs were obtained. Of note, ventilation phasewas not acquired as the patient became dyspneic while practicing themaneuver despite 10 L of supplemental oxygen given through tubing. Findings: Perfusion images demonstrate heterogeneous distribution of theradiotracer. Overall, perfusion has significantly improved compared to theprior outside V/Q scan dated 01/23/2023 particularly at the sites ofpreviously seen defects in the lower lobes at the bases, with someresidual heterogeneity of perfusion, particularly in the left lower lobe.There are no new moderate or large segmental perfusion defects suspiciousfor new pulmonary embolism. IMPRESSION: Impression: Compared to 01/23/2023: * Significant interval improvement in the previously seen perfusiondefects particularly in the bilateral lower lobes. * No definite new moderate or large segmental perfusion defects. ATTESTATION: I, Dr. Isabel Schmidt as teaching physician, have reviewed theimages for this case and if necessary edited the report originally createdby Dr. Luis Benson. us Nick Barnard MD [facility] [place] LUNG SCAN Fi nal Result documented in this encounter Visit Diagnoses Diagnosis Dyspnea, unspecified Pulmonary embolism Other pulmonary embolism and infarction Dyspnea, unspecified- Primary Pulmonary embolism Other pulmonary embolism and infarction documented in this encounter Care Teams Repairer Helper Relationship Specialty Start Date End Date Deena Workman MD [address] [place] [address] [place] [address] PCP - General Internal Medicine 04/11/23 documented as of this encounter Additional Source Comments The information contained in this document represents components of the legal health record. It is not the complete legal health record.[facility]
--- OUTSIDE RECORDS SUMMARY | 2025-03-25 13:01 | XMS_ITS | Clinical Summary ---
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
[2025-03-25 13:06] LABS: Prothrombin Time Whole Bld POC 18.0 sec (11.1-13.5); ~PT, ~INR - Anti Coag Clinic 1.5 (0.9-1.1)
--- NOTE | 2025-03-25 13:24 | MHC.OFFVISCO ---
Intake Intake Visit Reasons: Anticoagulation Allergies lisinopril (LISINOPRIL) Allergy (Severe, Verified 03/25/25 13:00) ANGIOEDEMA dapagliflozin (From FARXIGA) Allergy (Intermediate, Verified 03/25/25 13:00) HIVES erythromycin base (ERYTHROMYCIN BASE) Allergy (Intermediate, Verified 03/25/25 13:00) Hives liraglutide (From VICTOZA) Allergy (Intermediate, Verified 03/25/25 13:00) RASH amitriptyline (AMITRIPTYLINE) Adverse Reaction (Intermediate, Verified 03/25/25 13:00) lethargy metformin (METFORMIN) Adverse Reaction (Intermediate, Verified 03/25/25 13:00) GI UPSET to short acting form-is taking long acting & OK Medication List - Last Reconciled 03/25/25 by Francine Mitchell RN acetaminophen ER 650 mg PO Q6H PRN albuterol sulfate 2.5 mg inhalation Q4H PRN albuterol sulfate 90 mcg/actuation (Ventolin HFA) 2 puffs inhalation Q6H PRN blood sugar diagnostic (FreeStyle Lite Strips) As directed blood-glucose meter (FreeStyle Lite Meter kit) Use daily As directed to check blood sugars compress.stocking,knee,reg,med 15-20 cm ferrous gluconate 324 mg PO DAILY furosemide (Lasix) 20 mg PO DAILY PRN levothyroxine 50 mcg PO QAM metformin ER 500 mg PO BID nebulizers As directed Oxygen Home Use As directed rimegepant (Nurtec ODT) 75 mg PO Q OTHER DAY rosuvastatin 10 mg PO BEDTIME sertraline 100 mg PO DAILY sildenafil (pulm.hypertension) 20 mg PO TID 30 days tirzepatide (Mounjaro) 12.5 mg (0.5 mL) subcut QWEEK warfarin 5 mg See Protocol PO DAILY 30 days Nursing Note INR: 1.5 out of therapeutic range of 2-3 Unable to determine cause of critically low INR. On 03/17/25 INR 1.0 then 03/21/25 INR 1.9. Dose was increased and pt was on lovenox. At this time, pt denies missed dose of warfarin or dietary changes. She has been avoiding greens and focusing on foods that raise the INR. She states she feels well. No signs or symptoms of clotting. No changes in medications or supplements No signs or symptoms of infection or inflammatory process. Nutritional guidance given to continue to avoid greens Dose: increase today's dose to 10mg (usual 5mg) then increase tomorrow's dose to 5mg (usual 2.5mg) then usual dose of 2.5mg then next day then pt will retest. Pt instructed to start lovenox as previously ordered bid F/U INR: 03/28/25 Patient verbalizes understanding of instructions with read back given Anti-Coag Initial Assessment Social Hx Patient Tobacco Use Status: Never used Tobacco alcohol intake: former Alcohol intake frequency: does not drink Cardiovascular Hx: HTN Lung Disease HX: DVT/PE Endocrine Hx: Thyroid Disease Musculoskeletal Hx: Arthritis Blood Disorder Hx: Anemia and Hyperlipidemia GI Hx: Ulcers, Diverticulosis and Hemorrhoids Hx: Other Neurological Hx: Migraines/Headaches and Other Cancer HX: No Psych. Illness/Depression: Yes Coding Level of Care Code Est Patient Level 1 Diagnoses Current use of anticoagulant therapy Z79.01 Assessment & Plan Assessment & Plan (1) Current use of anticoagulant therapy: Code(s): Z79.01 - half-way (current) use of anticoagulants Category: Medical
== END 2025-03-25 13:41 | disposition home or self-care (01) ==
LOC: HO.ACS 12:59
PROVIDERS: PCP Internal Medicine; Visit Provider Internal Medicine Medical Oncology
DX: Z79.01 Long term (current) use of anticoagulants (principal)

== ENCOUNTER → 2025-03-25 12:59 | Outpatient (BNVA) | payer OTHER, SELFPAY | PROVIDERS: PCP Internal Medicine; Visit Provider Internal Medicine Medical Oncology | DX: I26.99 Other pulmonary embolism without acute cor pulmonale (principal); Z79.01 Long term (current) use of anticoagulants; Z51.81 Encounter for therapeutic drug level monitoring | CPT/HCPCS: 85610; 99211 ==

== ENCOUNTER 2025-03-28 14:40 | Outpatient (REF) | payer OTHER, SELFPAY ==
[2025-03-28 15:26] LABS: Prothrombin Time 87.9 SEC (10.9-12.4)
[2025-03-28 15:30] LABS: INTERNATIONAL NORM RATIO 7.6 (0.9-1.1)
== END 2025-03-28 14:41 | disposition home or self-care (01) ==
LOC: HO.LAB 14:40
PROVIDERS: PCP Internal Medicine; Visit Provider Internal Medicine Medical Oncology
DX: Z79.01 Long term (current) use of anticoagulants (principal)
CPT/HCPCS: 36415; 85610; 99211; 99212

== ENCOUNTER 2025-03-28 14:40 | Outpatient (AMB) | payer OTHER, SELFPAY ==
--- NOTE | 2025-03-28 14:56 | MHC.OFFVISCO ---
Intake Intake Visit Reasons: Anticoagulation Allergies lisinopril (LISINOPRIL) Allergy (Severe, Verified 03/28/25 14:42) ANGIOEDEMA dapagliflozin (From FARXIGA) Allergy (Intermediate, Verified 03/28/25 14:42) HIVES erythromycin base (ERYTHROMYCIN BASE) Allergy (Intermediate, Verified 03/28/25 14:42) Hives liraglutide (From VICTOZA) Allergy (Intermediate, Verified 03/28/25 14:42) RASH amitriptyline (AMITRIPTYLINE) Adverse Reaction (Intermediate, Verified 03/28/25 14:42) lethargy metformin (METFORMIN) Adverse Reaction (Intermediate, Verified 03/28/25 14:42) GI UPSET to short acting form-is taking long acting & OK Medication List - Last Reconciled 03/28/25 by Francine Mitchell RN acetaminophen ER 650 mg PO Q6H PRN albuterol sulfate 2.5 mg inhalation Q4H PRN albuterol sulfate 90 mcg/actuation (Ventolin HFA) 2 puffs inhalation Q6H PRN blood sugar diagnostic (FreeStyle Lite Strips) As directed blood-glucose meter (FreeStyle Lite Meter kit) Use daily As directed to check blood sugars compress.stocking,knee,reg,med 15-20 cm ferrous gluconate 324 mg PO DAILY furosemide (Lasix) 20 mg PO DAILY PRN levothyroxine 50 mcg PO QAM metformin ER 500 mg PO BID nebulizers As directed Oxygen Home Use As directed rimegepant (Nurtec ODT) 75 mg PO Q OTHER DAY rosuvastatin 10 mg PO BEDTIME sertraline 100 mg PO DAILY sildenafil (pulm.hypertension) 20 mg PO TID 30 days tirzepatide (Mounjaro) 12.5 mg (0.5 mL) subcut QWEEK warfarin 5 mg See Protocol PO DAILY 30 days Nursing Note INR: 6.6 out of therapeutic range of 2-3 Pt sent to lab for venous draw to verify Lab result: 7.6 Previous INR on 03/25/25 was 1.5. She has been low last 3 checks. On 03/17/25 INR 1.0. Then 03/21/25 INR 1.9. Each low INR followed by a dose adjustment and lovenox for the critical lows. Pt states she followed instructions. She started lovenox again on 03/25/25. Previous instructions reviewed with pt. Medications and supplements reviewed Patient status: no changes Medications or supplements: no changes Diet: has been having foods that raise the INR, fruits etc and has held greens Denies any signs and symptoms of bleeding or clotting or unusual bruising. Bleeding, bruising, clotting discussed. She does have a bruise on left forearm pt states was painful and doesn't remember if she bumped her arm. No swelling or redness. Nutritional guidance given: to have a serving of greens today Dose: hold today's dose of 5mg and tomorrow's dose of 2.5mg F/U INR Date: 2 days, 03/30/25?? Patient verbalizing understanding of instructions with read back given. T/C to Dr Land. Critical result given to Maricel and composed note sent. Anti-Coag Initial Assessment Social Hx Patient Tobacco Use Status: Never used Tobacco alcohol intake: former Alcohol intake frequency: does not drink Cardiovascular Hx: HTN Lung Disease HX: DVT/PE Endocrine Hx: Thyroid Disease Musculoskeletal Hx: Arthritis Blood Disorder Hx: Anemia and Hyperlipidemia GI Hx: Ulcers, Diverticulosis and Hemorrhoids Hx: Other Neurological Hx: Migraines/Headaches and Other Cancer HX: No Psych. Illness/Depression: Yes Coding Level of Care Code Est Patient Level 2 Diagnoses Current use of anticoagulant therapy Z79.01 Time Spent (min) 30 Comment critical value, pt to lab for verification, instructions plus teaching given to pt Assessment & Plan Assessment & Plan (1) Current use of anticoagulant therapy: Code(s): Z79.01 - alf (current) use of anticoagulants Category: Medical Orders: Orders Prothrombin Time INR Today Z79.01 - continuous churn buttermaker (current) use of anticoagulants
[2025-03-28 15:19] LABS: Prothrombin Time Whole Bld POC 79.4 sec (11.1-13.5); ~PT, ~INR - Anti Coag Clinic 6.6 (0.9-1.1)
--- NOTE | 2025-03-28 15:25 | MHC.OFFVISCO ---
Intake Intake Visit Reasons: Anticoagulation Allergies lisinopril (LISINOPRIL) Allergy (Severe, Verified 03/28/25 14:42) ANGIOEDEMA dapagliflozin (From FARXIGA) Allergy (Intermediate, Verified 03/28/25 14:42) HIVES erythromycin base (ERYTHROMYCIN BASE) Allergy (Intermediate, Verified 03/28/25 14:42) Hives liraglutide (From VICTOZA) Allergy (Intermediate, Verified 03/28/25 14:42) RASH amitriptyline (AMITRIPTYLINE) Adverse Reaction (Intermediate, Verified 03/28/25 14:42) lethargy metformin (METFORMIN) Adverse Reaction (Intermediate, Verified 03/28/25 14:42) GI UPSET to short acting form-is taking long acting & OK Medication List - Last Reconciled 03/28/25 by Francine Mitchell RN acetaminophen ER 650 mg PO Q6H PRN albuterol sulfate 2.5 mg inhalation Q4H PRN albuterol sulfate 90 mcg/actuation (Ventolin HFA) 2 puffs inhalation Q6H PRN blood sugar diagnostic (FreeStyle Lite Strips) As directed blood-glucose meter (FreeStyle Lite Meter kit) Use daily As directed to check blood sugars compress.stocking,knee,reg,med 15-20 cm ferrous gluconate 324 mg PO DAILY furosemide (Lasix) 20 mg PO DAILY PRN levothyroxine 50 mcg PO QAM metformin ER 500 mg PO BID nebulizers As directed Oxygen Home Use As directed rimegepant (Nurtec ODT) 75 mg PO Q OTHER DAY rosuvastatin 10 mg PO BEDTIME sertraline 100 mg PO DAILY sildenafil (pulm.hypertension) 20 mg PO TID 30 days tirzepatide (Mounjaro) 12.5 mg (0.5 mL) subcut QWEEK warfarin 5 mg See Protocol PO DAILY 30 days Anti-Coag Initial Assessment Social Hx Patient Tobacco Use Status: Never used Tobacco alcohol intake: former Alcohol intake frequency: does not drink Cardiovascular Hx: HTN Lung Disease HX: DVT/PE Endocrine Hx: Thyroid Disease Musculoskeletal Hx: Arthritis Blood Disorder Hx: Anemia and Hyperlipidemia GI Hx: Ulcers, Diverticulosis and Hemorrhoids Hx: Other Neurological Hx: Migraines/Headaches and Other Cancer HX: No Psych. Illness/Depression: Yes Coding Diagnoses Current use of anticoagulant therapy Z79.01 Assessment & Plan Assessment & Plan (1) Current use of anticoagulant therapy: Code(s): Z79.01 - intermodal dispatcher (current) use of anticoagulants Category: Medical Orders: Orders Prothrombin Time INR Today Z79.01 - shelter (current) use of anticoagulants
--- OUTSIDE RECORDS SUMMARY | 2025-03-28 15:30 | XMS_ITS | Clinical Summary ---
Author Organization 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
--- OUTSIDE RECORDS SUMMARY | 2025-03-28 15:30 | XMS_ITS | Encounter Summary ---
Author Organization [facility] Address [address] [place] [address] [address] [place] [address] Phone Care Team Providers Care Divider Operator Name Role Phone Deena Workman MD Primary Care Provider Reason for Referral * Outpatient Procedure - Closed Specialty Diagnoses / Procedures Referred By Contac t Referred To Contact Radiology Diagnoses Dyspnea, unspecified Pulmonary embolism Procedures NM Lung Perfusion Imaging NM Lung Ventilation and Perfusion Imaging NM Lung Perfusion and Ventilation Differential Quantification NM Lung Perfusion Imaging NM Lung Ventilation and Perfusion Imaging [place] PULMONARY VENTILATION & PERFUSION IMAGING MI QUANT DIFF PULM PRFUSION & VENTLAJ W/WO IMAGING Nick Barnard MD Phone: tel: fax: mailto:[email or web address] Referral ID Status Reason Start Date Expiration Date Visits Re quested Visits Authorized [id number] Closed 08/14/2023 1 1 Encounter Details Date Type Department Care Team (Late st Contact Info) Description 10/13/2023 Ancillary Orders [facility] [address] [facility], [address], [address] [place] [address] Nick Barnard MD [address] [place] [address] [address] [place] [address] [email or web address]@ [email or web address] Dyspnea, unspecified (Primary Dx); Pulmonary embolism Social [...] Luis Benson. Narrative 10/13/2023 6:10 PM EST [place] LUNG PERFUSION IMAGING Lung Perfusion Scan COMPARISON: [...] Procedure Note Isabel Schmidt MD - 10/13/2023 [place] LUNG PERFUSION IMAGING Lung Perfusion Scan COMPARISON: [...] Dr. Luis Benson. us Nick Barnard MD [facility] [place] LUNG SCAN Fi nal Result documented in this encounter Visit Diagnoses Diagnosis Dyspnea, unspecified Pulmonary embolism Other pulmonary embolism and infarction Dyspnea, unspecified- Primary Pulmonary embolism Other pulmonary embolism and infarction documented in this encounter Care Teams Divider Operator Relationship Specialty Start Date End Date Deena Workman MD [address] [place] [address] [place] [address] PCP - General Internal Medicine 04/11/23 documented as of this encounter Additional Source Comments The information contained in this document represents components of the legal health record. It is not the complete legal health record.[facility]
== END 2025-03-28 16:08 | disposition home or self-care (01) ==
LOC: HO.ACS 14:40
PROVIDERS: PCP Internal Medicine; Visit Provider Internal Medicine Medical Oncology
DX: Z79.01 Long term (current) use of anticoagulants (principal)

== ENCOUNTER 2025-03-29 13:29 | Outpatient (AMB) | payer OTHER, SELFPAY ==
[2025-03-29 13:50] LABS: Prothrombin Time Whole Bld POC > 96.0 sec (11.1-13.5); ~PT, ~INR - Anti Coag Clinic > 8.0 (0.9-1.1)
--- NOTE | 2025-03-29 13:56 | MHC.OFFVISCO ---
Intake Intake Visit Reasons: Anticoagulation Allergies lisinopril (LISINOPRIL) Allergy (Severe, Verified 03/28/25 14:42) ANGIOEDEMA dapagliflozin (From FARXIGA) Allergy (Intermediate, Verified 03/28/25 14:42) HIVES erythromycin base (ERYTHROMYCIN BASE) Allergy (Intermediate, Verified 03/28/25 14:42) Hives liraglutide (From VICTOZA) Allergy (Intermediate, Verified 03/28/25 14:42) RASH amitriptyline (AMITRIPTYLINE) Adverse Reaction (Intermediate, Verified 03/28/25 14:42) lethargy metformin (METFORMIN) Adverse Reaction (Intermediate, Verified 03/28/25 14:42) GI UPSET to short acting form-is taking long acting & OK Medication List - Last Reconciled 03/29/25 by Licha Muñoz RN acetaminophen ER 650 mg PO Q6H PRN albuterol sulfate 2.5 mg inhalation Q4H PRN albuterol sulfate 90 mcg/actuation (Ventolin HFA) 2 puffs inhalation Q6H PRN blood sugar diagnostic (FreeStyle Lite Strips) As directed blood-glucose meter (FreeStyle Lite Meter kit) Use daily As directed to check blood sugars compress.stocking,knee,reg,med 15-20 cm ferrous gluconate 324 mg PO DAILY furosemide (Lasix) 20 mg PO DAILY PRN levothyroxine 50 mcg PO QAM metformin ER 500 mg PO BID nebulizers As directed Oxygen Home Use As directed rimegepant (Nurtec ODT) 75 mg PO Q OTHER DAY rosuvastatin 10 mg PO BEDTIME sertraline 100 mg PO DAILY sildenafil (pulm.hypertension) 20 mg PO TID 30 days tirzepatide (Mounjaro) 12.5 mg (0.5 mL) subcut QWEEK warfarin 5 mg See Protocol PO DAILY 30 days Nursing Note INR >8.0 out of therapeutic range sent to lab INR 8.8 confirmed Pt states she does not feel well today-no appetite, pt sent for stat INR and CBC to check H+H Medications and supplements reviewed Patient status: yesterday INR 7.6 - pt brought meds in for review Medications or supplements: NO CHANGES PER PT Diet: fair to poor no appetite Denies any signs and symptoms of bleeding or clotting or unusual bruising Bleeding, bruising, clotting discussed Nutritional guidance given: soft greens, soft protein, blueberry yogurt with green smoothie Dose: hold warfarin, chk INR tomorrow F/U INR Date: 04/01/25 ?? Patient verbalizing understanding of instructions given to go to ER if she cont to feel ill or worse in any way especially headaches or any unual s/sx of bleeding t/c to PCP spoke with Judith SOTELO regarding pt status and plan of care to report to the MD Msg to Dr Land Anti-Coag Initial Assessment Social Hx Patient Tobacco Use Status: Never used Tobacco alcohol intake: former Alcohol intake frequency: does not drink Cardiovascular Hx: HTN Lung Disease HX: DVT/PE Endocrine Hx: Thyroid Disease Musculoskeletal Hx: Arthritis Blood Disorder Hx: Anemia and Hyperlipidemia GI Hx: Ulcers, Diverticulosis and Hemorrhoids Hx: Other Neurological Hx: Migraines/Headaches and Other Cancer HX: No Psych. Illness/Depression: Yes Coding Level of Care Code Est Patient Level 2 Diagnoses Current use of anticoagulant therapy Z79.01 Comment t/c with md lab and pt Assessment & Plan Assessment & Plan (1) Current use of anticoagulant therapy: Code(s): Z79.01 - prison (current) use of anticoagulants Category: Medical Orders: Orders Prothrombin Time INR Today Z79.01 - buttermaker continuous churn (current) use of anticoagulants Complete Blood Count no Diff Today Z79.01 - buttermaker continuous churn (current) use of anticoagulants
--- OUTSIDE RECORDS SUMMARY | 2025-03-29 14:37 | XMS_ITS | Clinical Summary ---
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
--- OUTSIDE RECORDS SUMMARY | 2025-03-29 14:37 | XMS_ITS | Encounter Summary ---
Author Organization [facility] Address [address] [place] [address] [address] [place] [address] Phone Care Team Providers Care Counter Molder Name Role Phone Deena Workman MD Primary Care Provider Reason for Referral * Outpatient Procedure - Closed Specialty Diagnoses / Procedures Referred By Contac t Referred To Contact Radiology Diagnoses Dyspnea, unspecified Pulmonary embolism Procedures NM Lung Perfusion Imaging NM Lung Ventilation and Perfusion Imaging NM Lung Perfusion and Ventilation Differential Quantification NM Lung Perfusion Imaging NM Lung Ventilation and Perfusion Imaging [place] PULMONARY VENTILATION & PERFUSION IMAGING [place] QUANT DIFF PULM PRFUSION & VENTLAJ W/WO IMAGING Nick [place] MD Phone: tel: fax: mailto:[email or web address] Referral ID Status Reason Start Date Expiration Date Visits Re quested Visits Authorized [id number] Closed 08/14/2023 1 1 Encounter Details Date Type Department Care Team (Late st Contact Info) Description 10/13/2023 Ancillary Orders [facility] [address], [address], [address] [place] [address] Nick [place] MD [address] [place] [address] [address] [place] [address] [email or web address]@ [email or web address] Dyspnea, unspecified (Primary Dx); Pulmonary embolism Social [...] Luis Benson. Narrative 10/13/2023 6:10 PM EST [place] LUNG PERFUSION IMAGING Lung Perfusion Scan COMPARISON: [...] Procedure Note Isabel Schmidt MD - 10/13/2023 [place] LUNG PERFUSION IMAGING Lung Perfusion Scan COMPARISON: [...] Dr. Luis Benson. us Nick [place] MD [facility] [place] LUNG SCAN Fi nal Result documented in this encounter Visit Diagnoses Diagnosis Dyspnea, unspecified Pulmonary embolism Other pulmonary embolism and infarction Dyspnea, unspecified- Primary Pulmonary embolism Other pulmonary embolism and infarction documented in this encounter Care Teams Counter Molder Relationship Specialty Start Date End Date Deena Workman MD [address] [place] [address] [place] [address] PCP - General Internal Medicine 04/11/23 documented as of this encounter Additional Source Comments The information contained in this document represents components of the legal health record. It is not the complete legal health record.[facility]
== END 2025-03-29 14:53 | disposition home or self-care (01) ==
LOC: HO.ACS 13:29
PROVIDERS: PCP Internal Medicine; Visit Provider Internal Medicine Medical Oncology
DX: Z79.01 Long term (current) use of anticoagulants (principal)

== ENCOUNTER 2025-03-29 13:29 | Outpatient (REF) | payer OTHER, SELFPAY ==
[2025-03-29 14:12] LABS: Hematocrit 35.0 % (37.0-47.0); Hemoglobin 10.5 g/dl (12.0-16.0); Mean Corpuscular HGB Conc 30.0 g/dl (31.0-35.0); Mean Corpuscular Hemoglobin 21.4 pg (27.0-33.0); Mean Corpuscular Volume 71.3 fL (80.0-98.0); NRBC Abs Auto 0.000 X10*3/uL (0.0-0.012); NRBC Pct Auto 0.0 /100WBC (0.0-0.2); Platelet Count 186 X10*3/uL (160-400); Red Blood Count 4.91 X10*6/uL (4.20-5.50); White Blood Count 9.1 X10*3/uL (4.8-10.8)
[2025-03-29 14:36] LABS: Prothrombin Time 100.6 SEC (10.9-12.4)
[2025-03-29 14:39] LABS: INTERNATIONAL NORM RATIO 8.8 (0.9-1.1)
== END 2025-03-29 13:30 | disposition home or self-care (01) ==
LOC: HO.LAB 13:29
PROVIDERS: PCP Internal Medicine; Visit Provider Internal Medicine Medical Oncology
DX: Z51.81 Encounter for therapeutic drug level monitoring (principal); Z79.01 Long term (current) use of anticoagulants
CPT/HCPCS: 36415; 85027; 85610; 99211; 99212

== ENCOUNTER 2025-03-30 09:25 | Outpatient (AMB) | payer OTHER, SELFPAY ==
[2025-03-30 09:45] LABS: Prothrombin Time Whole Bld POC 84.3 sec (11.1-13.5); ~PT, ~INR - Anti Coag Clinic 7.0 (0.9-1.1)
--- OUTSIDE RECORDS SUMMARY | 2025-03-30 09:57 | XMS_ITS | Encounter Summary ---
Author Organization [facility] Address [address] [place] [address] [address] [place] [address] Phone Care Team Providers Care Variety Performer Name Role Phone Deena Workman MD Primary Care Provider Reason for Referral * Outpatient Procedure - Closed Specialty Diagnoses / Procedures Referred By Contac t Referred To Contact Radiology Diagnoses Dyspnea, unspecified Pulmonary embolism Procedures NM Lung Perfusion Imaging NM Lung Ventilation and Perfusion Imaging NM Lung Perfusion and Ventilation Differential Quantification NM Lung Perfusion Imaging NM Lung Ventilation and Perfusion Imaging MD PULMONARY VENTILATION & PERFUSION IMAGING MD QUANT DIFF PULM PRFUSION & VENTLAJ W/WO IMAGING Nick [place] MD Phone: tel: fax: mailto:[email or web address] Referral ID Status Reason Start Date Expiration Date Visits Re quested Visits Authorized [id number] Closed 08/14/2023 1 1 Encounter Details Date Type Department Care Team (Late st Contact Info) Description 10/13/2023 Ancillary Orders [facility] [address] [facility], [address], [address] [place] [address] Nick [place] MD [address] [place] [address] [address] [place] [address] [email or web address]@ [email or web address] Dyspnea, unspecified (Primary Dx); Pulmonary embolism [...] Luis Benson. Narrative 10/13/2023 6:10 PM EST [place] LUNG PERFUSION IMAGING Lung Perfusion Scan COMPARISON: [...] Procedure Note Isabel Schmidt MD - 10/13/2023 [place] LUNG PERFUSION IMAGING Lung Perfusion Scan COMPARISON: [...] Dr. Luis Benson. us Nick [place] MD [facility] [place] Fi nal Result documented in this encounter Visit Diagnoses Diagnosis Dyspnea, unspecified Pulmonary embolism Other pulmonary embolism and infarction Dyspnea, unspecified- Primary Pulmonary embolism Other pulmonary embolism and infarction documented in this encounter Care Teams Variety Performer Relationship Specialty Start Date End Date Deena Workman MD [address] [place] [address] [place] [address] PCP - General Internal Medicine 04/11/23 documented as of this encounter Additional Source Comments The information contained in this document represents components of the legal health record. It is not the complete legal health record.[facility]
--- OUTSIDE RECORDS SUMMARY | 2025-03-30 09:57 | XMS_ITS | Clinical Summary ---
Author Organization [facility] it Address [address] [place] [address] Care Team Providers Care Journeyman Apprentice Electricians Name Role Phone Unavailable Primary Care Provider [...] Documents on File Type Date Recorded Patient Scientific Director Expl anation Health Care Decision (hx) 10/31/2020 AD MERCEDES DIRECTIVE
--- NOTE | 2025-03-30 10:34 | MHC.OFFVISCO ---
Intake Intake Visit Reasons: Anticoagulation Allergies lisinopril (LISINOPRIL) Allergy (Severe, Verified 03/30/25 09:39) ANGIOEDEMA dapagliflozin (From FARXIGA) Allergy (Intermediate, Verified 03/30/25 09:39) HIVES erythromycin base (ERYTHROMYCIN BASE) Allergy (Intermediate, Verified 03/30/25 09:39) Hives liraglutide (From VICTOZA) Allergy (Intermediate, Verified 03/30/25 09:39) RASH amitriptyline (AMITRIPTYLINE) Adverse Reaction (Intermediate, Verified 03/30/25 09:39) lethargy metformin (METFORMIN) Adverse Reaction (Intermediate, Verified 03/30/25 09:39) GI UPSET to short acting form-is taking long acting & OK Medication List - Last Reconciled 03/30/25 by Yola Herring RN acetaminophen ER 650 mg PO Q6H PRN albuterol sulfate 2.5 mg inhalation Q4H PRN albuterol sulfate 90 mcg/actuation (Ventolin HFA) 2 puffs inhalation Q6H PRN blood sugar diagnostic (FreeStyle Lite Strips) As directed blood-glucose meter (FreeStyle Lite Meter kit) Use daily As directed to check blood sugars compress.stocking,knee,reg,med 15-20 cm ferrous gluconate 324 mg PO DAILY furosemide (Lasix) 20 mg PO DAILY PRN levothyroxine 50 mcg PO QAM metformin ER 500 mg PO BID nebulizers As directed Oxygen Home Use As directed rimegepant (Nurtec ODT) 75 mg PO Q OTHER DAY rosuvastatin 10 mg PO BEDTIME sertraline 100 mg PO DAILY sildenafil (pulm.hypertension) 20 mg PO TID 30 days tirzepatide (Mounjaro) 12.5 mg (0.5 mL) subcut QWEEK warfarin 5 mg See Protocol PO DAILY 30 days Nursing Note INR REMAINS HIGH TODAY AT 8.3(LAB VERIFICATION) PT.CONFIRMED THAT SHE IS NOT TAKING ANY WARFARIN. NO CP, SX OF BLEEDING, HEADACHE OR OTHER SX. CONTINUE TO HOLD WARFARIN AND FOLLOW-UP HERE TOMORROW. INFORMED OF INR AND PLAN OF CARE(MARGA) ATTEMPTING TO REACH PCP TO ALSO INFORM OF HIGH INR, ALTHOUGH MANAGES THE WARFARIN FOR PT. Anti-Coag Initial Assessment Social Hx Patient Tobacco Use Status: Never used Tobacco alcohol intake: former Alcohol intake frequency: does not drink Cardiovascular Hx: HTN Lung Disease HX: DVT/PE Endocrine Hx: Thyroid Disease Musculoskeletal Hx: Arthritis Blood Disorder Hx: Anemia and Hyperlipidemia GI Hx: Ulcers, Diverticulosis and Hemorrhoids Hx: Other Neurological Hx: Migraines/Headaches and Other Cancer HX: No Psych. 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
== END 2025-03-30 11:05 | disposition home or self-care (01) ==
LOC: HO.ACS 09:25
PROVIDERS: PCP Internal Medicine; Visit Provider Internal Medicine Medical Oncology
DX: Z79.01 Long term (current) use of anticoagulants (principal)

== ENCOUNTER 2025-03-30 09:25 | Outpatient (REF) | payer OTHER, SELFPAY ==
[2025-03-30 10:30] LABS: Prothrombin Time 95.8 SEC (10.9-12.4)
[2025-03-30 10:34] LABS: INTERNATIONAL NORM RATIO 8.3 (0.9-1.1)
== END 2025-03-30 09:26 | disposition home or self-care (01) ==
LOC: HO.LAB 09:25
PROVIDERS: PCP Internal Medicine; Visit Provider Internal Medicine Medical Oncology
DX: Z79.01 Long term (current) use of anticoagulants (principal)
CPT/HCPCS: 36415; 85610; 99211; 99212

== ENCOUNTER 2025-03-31 13:27 | Outpatient (AMB) | payer OTHER, SELFPAY ==
--- OUTSIDE RECORDS SUMMARY | 2025-03-31 13:34 | XMS_ITS | Clinical Summary ---
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
[2025-03-31 13:36] LABS: Prothrombin Time Whole Bld POC 53.7 sec (11.1-13.5); ~PT, ~INR - Anti Coag Clinic 4.5 (0.9-1.1)
--- NOTE | 2025-03-31 13:46 | MHC.OFFVISCO ---
Intake Intake Visit Reasons: Anticoagulation Allergies lisinopril (LISINOPRIL) Allergy (Severe, Verified 03/31/25 13:30) ANGIOEDEMA dapagliflozin (From FARXIGA) Allergy (Intermediate, Verified 03/31/25 13:30) HIVES erythromycin base (ERYTHROMYCIN BASE) Allergy (Intermediate, Verified 03/31/25 13:30) Hives liraglutide (From VICTOZA) Allergy (Intermediate, Verified 03/31/25 13:30) RASH amitriptyline (AMITRIPTYLINE) Adverse Reaction (Intermediate, Verified 03/31/25 13:30) lethargy metformin (METFORMIN) Adverse Reaction (Intermediate, Verified 03/31/25 13:30) GI UPSET to short acting form-is taking long acting & OK Medication List - Last Reconciled 03/31/25 by Francine Mitchell RN acetaminophen ER 650 mg PO Q6H PRN albuterol sulfate 2.5 mg inhalation Q4H PRN albuterol sulfate 90 mcg/actuation (Ventolin HFA) 2 puffs inhalation Q6H PRN blood sugar diagnostic (FreeStyle Lite Strips) As directed blood-glucose meter (FreeStyle Lite Meter kit) Use daily As directed to check blood sugars compress.stocking,knee,reg,med 15-20 cm ferrous gluconate 324 mg PO DAILY furosemide (Lasix) 20 mg PO DAILY PRN levothyroxine 50 mcg PO QAM metformin ER 500 mg PO BID nebulizers As directed Oxygen Home Use As directed rimegepant (Nurtec ODT) 75 mg PO Q OTHER DAY rosuvastatin 10 mg PO BEDTIME sertraline 100 mg PO DAILY sildenafil (pulm.hypertension) 20 mg PO TID tirzepatide (Mounjaro) 12.5 mg (0.5 mL) subcut QWEEK warfarin 5 mg See Protocol PO DAILY 30 days Nursing Note INR: 4.5 out of therapeutic range of 2-3 INR coming down. Has been high starting 4 days ago at 7.6 then 8.8 and 8.3 yesterday. Warfarin has been on hold. Medications and supplements reviewed Patient status: usual state Medications or supplements: no changes Diet: has been having greens Denies any signs and symptoms of bleeding or clotting or unusual bruising Bleeding, bruising, clotting discussed Nutritional guidance given: food list discussed and pt will have coleslaw today as cabbage can lower the INR Dose: hold today/retest tomorrow F/U INR Date: 1 day , 04/01/25?? Patient verbalizing understanding of instructions given. Anti-Coag Initial Assessment Social Hx Patient Tobacco Use Status: Never used Tobacco alcohol intake: former Alcohol intake frequency: does not drink Cardiovascular Hx: HTN Lung Disease HX: DVT/PE Endocrine Hx: Thyroid Disease Musculoskeletal Hx: Arthritis Blood Disorder Hx: Anemia and Hyperlipidemia GI Hx: Ulcers, Diverticulosis and Hemorrhoids Hx: Other Neurological Hx: Migraines/Headaches and Other Cancer HX: No Psych. 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
== END 2025-03-31 13:55 | disposition home or self-care (01) ==
LOC: HO.ACS 13:27
PROVIDERS: PCP Internal Medicine; Visit Provider Internal Medicine Medical Oncology
DX: Z79.01 Long term (current) use of anticoagulants (principal)

== ENCOUNTER → 2025-03-31 13:27 | Outpatient (BNVA) | payer OTHER, SELFPAY | PROVIDERS: PCP Internal Medicine; Visit Provider Internal Medicine Medical Oncology | DX: I26.99 Other pulmonary embolism without acute cor pulmonale (principal); Z51.81 Encounter for therapeutic drug level monitoring; Z79.01 Long term (current) use of anticoagulants | CPT/HCPCS: 85610; 99211 ==

== ENCOUNTER 2025-04-01 10:23 | Outpatient (AMB) | payer OTHER, SELFPAY ==
[2025-04-01 10:28] LABS: Prothrombin Time Whole Bld POC 39.5 sec (11.1-13.5); ~PT, ~INR - Anti Coag Clinic 3.3 (0.9-1.1)
--- OUTSIDE RECORDS SUMMARY | 2025-04-01 10:37 | XMS_ITS | Encounter Summary ---
Author Organization [facility] Address [address] [place] [address] [address] [place] [address] Phone Care Team Providers Care It Systems Analyst Consultant Name Role Phone Deena Workman MD Primary Care Provider Reason for Referral * Outpatient Procedure - Closed Specialty Diagnoses / Procedures Referred By Contac t Referred To Contact Radiology Diagnoses Dyspnea, unspecified Pulmonary embolism Procedures NM Lung Perfusion Imaging NM Lung Ventilation and Perfusion Imaging NM Lung Perfusion and Ventilation Differential Quantification NM Lung Perfusion Imaging NM Lung Ventilation and Perfusion Imaging [place] PULMONARY VENTILATION & PERFUSION IMAGING [place] QUANT DIFF PULM PRFUSION & VENTLAJ W/WO IMAGING Nick Barnard MD Phone: tel: fax: mailto:[email or web address] Referral ID Status Reason Start Date Expiration Date Visits Re quested Visits Authorized [id number] Closed 08/14/2023 1 1 Encounter Details Date Type Department Care Team (Late st Contact Info) Description 10/13/2023 Ancillary Orders [facility] [place] [facility] [address], [address], [address] [place] [address] Nick Barnard MD [address] [place] [address] [address] [place] [address] [email or web address]@ [email or web address] Dyspnea, unspecified (Primary Dx); Pulmonary embolism Social [...] Luis Benson. Narrative 10/13/2023 6:10 PM EST [place] [facility] PERFUS[facility] IMAGING Lung Perfusion Scan COMPARISON: [...] Procedure Note Isabel Schmidt MD - 10/13/2023 [place] LUNG PERFUSION IMAGING Lung Perfusion Scan COMPARISON: [...] Dr. Luis Benson. us Nick Barnard MD [facility] NM LUNG SCAN Fi nal Result documented in this encounter Visit Diagnoses Diagnosis Dyspnea, unspecified Pulmonary embolism Other pulmonary embolism and infarction Dyspnea, unspecified- Primary Pulmonary embolism Other pulmonary embolism and infarction documented in this encounter Care Teams It Systems Analyst Consultant Relationship Specialty Start Date End Date Deena Workman MD [address] [place] [address] [place] [address] PCP - General Internal Medicine 04/11/23 documented as of this encounter Additional Source Comments The information contained in this document represents components of the legal health record. It is not the complete legal health record.[facility]
--- OUTSIDE RECORDS SUMMARY | 2025-04-01 10:37 | XMS_ITS | Clinical Summary ---
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
--- NOTE | 2025-04-01 10:46 | MHC.OFFVISCO ---
Intake Intake Visit Reasons: Anticoagulation Allergies lisinopril (LISINOPRIL) Allergy (Severe, Verified 03/31/25 13:30) ANGIOEDEMA dapagliflozin (From FARXIGA) Allergy (Intermediate, Verified 03/31/25 13:30) HIVES erythromycin base (ERYTHROMYCIN BASE) Allergy (Intermediate, Verified 03/31/25 13:30) Hives liraglutide (From VICTOZA) Allergy (Intermediate, Verified 03/31/25 13:30) RASH amitriptyline (AMITRIPTYLINE) Adverse Reaction (Intermediate, Verified 03/31/25 13:30) lethargy metformin (METFORMIN) Adverse Reaction (Intermediate, Verified 03/31/25 13:30) GI UPSET to short acting form-is taking long acting & OK Nursing Note INR: 3.3 out of therapeutic range 2-3 Medications and supplements reviewed Patient status: usual health Medications or supplements: no changes Diet: usual diet for pt Denies any signs and symptoms of bleeding or clotting or unusual bruising Bleeding, bruising, clotting discussed Nutritional guidance given: to have a serving of greens today Dose: start 2.5mg daily F/U INR Date: 04/06/25?? Patient verbalizing understanding of instructions given. Anti-Coag Initial Assessment Social Hx Patient Tobacco Use Status: Never used Tobacco alcohol intake: former Alcohol intake frequency: does not drink Cardiovascular Hx: HTN Lung Disease HX: DVT/PE Endocrine Hx: Thyroid Disease Musculoskeletal Hx: Arthritis Blood Disorder Hx: Anemia and Hyperlipidemia GI Hx: Ulcers, Diverticulosis and Hemorrhoids Hx: Other Neurological Hx: Migraines/Headaches and Other Cancer HX: No Psych. Illness/Depression: Yes Coding Level of Care Code Est Patient Level 1 Diagnoses Current use of anticoagulant therapy Z79.01 Results AMB INR Fingerstick AMB INR Fingerstick 3.3 Last Edit by Francine Mitchell RN on 04/01/25 10:35 interface delay Assessment & Plan Assessment & Plan (1) Current use of anticoagulant therapy: Code(s): Z79.01 - senior living (current) use of anticoagulants Category: Medical
== END 2025-04-01 10:48 | disposition home or self-care (01) ==
LOC: HO.ACS 10:23
PROVIDERS: PCP Internal Medicine; Visit Provider Internal Medicine Medical Oncology
DX: Z79.01 Long term (current) use of anticoagulants (principal)

== ENCOUNTER → 2025-04-01 10:23 | Outpatient (BNVA) | payer OTHER, SELFPAY | PROVIDERS: PCP Internal Medicine; Visit Provider Internal Medicine Medical Oncology | DX: I26.99 Other pulmonary embolism without acute cor pulmonale (principal); Z79.01 Long term (current) use of anticoagulants; Z51.81 Encounter for therapeutic drug level monitoring | CPT/HCPCS: 85610; 99211 ==

== ENCOUNTER 2025-04-07 08:30 | Outpatient (AMB) | payer OTHER, SELFPAY ==
--- OUTSIDE RECORDS SUMMARY | 2025-04-07 08:38 | XMS_ITS | Encounter Summary ---
Author Organization [facility] Address [address] [place] [address] [address] [place] [address] Phone Care Team Providers Care Government Documents Librarian Name Role Phone Deena Workman MD Primary Care Provider Reason for Referral * Outpatient Procedure - Closed Specialty Diagnoses / Procedures Referred By Contac t Referred To Contact Radiology Diagnoses Dyspnea, unspecified Pulmonary embolism Procedures NM Lung Perfusion Imaging NM Lung Ventilation and Perfusion Imaging NM Lung Perfusion and Ventilation Differential Quantification NM Lung Perfusion Imaging NM Lung Ventilation and Perfusion Imaging [place] PULMONARY VENTILATION & PERFUSION IMAGING [place] QUANT DIFF PULM PRFUSION & VENTLAJ W/WO IMAGING Nick Barnard MD Phone: tel: fax: mailto:[email or web address] Referral ID Status Reason Start Date Expiration Date Visits Re quested Visits Authorized [id number] Closed 08/14/2023 1 1 Encounter Details Date Type Department Care Team (Late st Contact Info) Description 10/13/[address] [facility] [address] [facility], 2nd [address], [address] [place] [address] Nick Barnard MD [address] [place] [address] [address] [place] [address] [email or web address]@ [email or web address] Dyspnea, unspecified (Primary Dx); Pulmonary [...] Luis Benson. Narrative 10/13/2023 6:10 PM EST [place] LUNG PERFUSION IMAGING Lung Perfusion Scan COMPARISON: [...] Procedure Note Isabel Schmidt MD - 10/13/2023 [place] LUNG PERFUSION IMAGING Lung Perfusion Scan COMPARISON: [...] Dr. Luis Benson. us Nick [place] MD [facility]UNG SCAN Fi nal Result documented in this encounter Visit Diagnoses Diagnosis Dyspnea, unspecified Pulmonary embolism Other pulmonary embolism and infarction Dyspnea, unspecified- Primary Pulmonary embolism Other pulmonary embolism and infarction documented in this encounter Care Teams Government Documents Librarian Relationship Specialty Start Date End Date Deena Workman MD [address] [place] [address] [place] [address] PCP - General Internal Medicine 04/11/23 documented as of this encounter Additional Source Comments The information contained in this document represents components of the legal health record. It is not the complete legal health record.[facility]
--- OUTSIDE RECORDS SUMMARY | 2025-04-07 08:38 | XMS_ITS | Clinical Summary ---
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
[2025-04-07 08:39] LABS: Prothrombin Time Whole Bld POC 33.0 sec (11.1-13.5); ~PT, ~INR - Anti Coag Clinic 2.7 (0.9-1.1)
--- NOTE | 2025-04-07 08:44 | MHC.OFFVISCO ---
Intake Intake Visit Reasons: Anticoagulation Allergies lisinopril (LISINOPRIL) Allergy (Severe, Verified 04/07/25 08:34) ANGIOEDEMA dapagliflozin (From FARXIGA) Allergy (Intermediate, Verified 04/07/25 08:34) HIVES erythromycin base (ERYTHROMYCIN BASE) Allergy (Intermediate, Verified 04/07/25 08:34) Hives liraglutide (From VICTOZA) Allergy (Intermediate, Verified 04/07/25 08:34) RASH amitriptyline (AMITRIPTYLINE) Adverse Reaction (Intermediate, Verified 04/07/25 08:34) lethargy metformin (METFORMIN) Adverse Reaction (Intermediate, Verified 04/07/25 08:34) GI UPSET to short acting form-is taking long acting & OK Medication List - Last Reconciled 04/07/25 by Yola Herring RN acetaminophen ER 650 mg PO Q6H PRN albuterol sulfate 2.5 mg inhalation Q4H PRN albuterol sulfate 90 mcg/actuation (Ventolin HFA) 2 puffs inhalation Q6H PRN blood sugar diagnostic (FreeStyle Lite Strips) As directed blood-glucose meter (FreeStyle Lite Meter kit) Use daily As directed to check blood sugars compress.stocking,knee,reg,med 15-20 cm ferrous gluconate 324 mg PO DAILY furosemide (Lasix) 20 mg PO DAILY PRN levothyroxine 50 mcg PO QAM metformin ER 500 mg PO BID nebulizers As directed Oxygen Home Use As directed rimegepant (Nurtec ODT) 75 mg PO Q OTHER DAY rosuvastatin 10 mg PO BEDTIME sertraline 100 mg PO DAILY sildenafil (pulm.hypertension) 20 mg PO TID tirzepatide (Mounjaro) 12.5 mg (0.5 mL) subcut QWEEK warfarin 5 mg See Protocol PO DAILY 30 days Nursing Note NO CP,SOB,DIET/MED CHANGES,FALLS OR SX OF BLEEDING. CONTINUE 2.5MGM DAILY AND FOLLOW-UP IN 1 WEEK GOOD UNDERSTANDING OF DOSING INSTR. Anti-Coag Initial Assessment Social Hx Patient Tobacco Use Status: Never used Tobacco alcohol intake: former Alcohol intake frequency: does not drink Cardiovascular Hx: HTN Lung Disease HX: DVT/PE Endocrine Hx: Thyroid Disease Musculoskeletal Hx: Arthritis Blood Disorder Hx: Anemia and Hyperlipidemia GI Hx: Ulcers, Diverticulosis and Hemorrhoids Hx: Other Neurological Hx: Migraines/Headaches and Other Cancer HX: No Psych. Illness/Depression: Yes Coding Level of Care Code Est Patient Level 1 Diagnoses Current use of anticoagulant therapy Z79.01 Assessment & Plan Assessment & Plan (1) Current use of anticoagulant therapy: Code(s): Z79.01 - alf (current) use of anticoagulants Category: Medical
== END 2025-04-07 08:48 | disposition home or self-care (01) ==
LOC: HO.ACS 08:30
PROVIDERS: PCP Internal Medicine; Visit Provider Internal Medicine Medical Oncology
DX: Z79.01 Long term (current) use of anticoagulants (principal)

== ENCOUNTER → 2025-04-07 08:30 | Outpatient (BNVA) | payer OTHER, SELFPAY | PROVIDERS: PCP Internal Medicine; Visit Provider Internal Medicine Medical Oncology | DX: I26.99 Other pulmonary embolism without acute cor pulmonale (principal); Z79.01 Long term (current) use of anticoagulants; Z51.81 Encounter for therapeutic drug level monitoring | CPT/HCPCS: 85610; 99211 ==

== ENCOUNTER 2025-04-14 08:29 | Outpatient (AMB) | payer OTHER, SELFPAY ==
[2025-04-14 08:42] LABS: Prothrombin Time Whole Bld POC 36.1 sec (11.1-13.5); ~PT, ~INR - Anti Coag Clinic 3.0 (0.9-1.1)
--- NOTE | 2025-04-14 08:42 | MHC.OFFVISCO ---
Intake Intake Visit Reasons: Anticoagulation Allergies lisinopril (LISINOPRIL) Allergy (Severe, Verified 04/14/25 08:36) ANGIOEDEMA dapagliflozin (From FARXIGA) Allergy (Intermediate, Verified 04/14/25 08:36) HIVES erythromycin base (ERYTHROMYCIN BASE) Allergy (Intermediate, Verified 04/14/25 08:36) Hives liraglutide (From VICTOZA) Allergy (Intermediate, Verified 04/14/25 08:36) RASH amitriptyline (AMITRIPTYLINE) Adverse Reaction (Intermediate, Verified 04/14/25 08:36) lethargy metformin (METFORMIN) Adverse Reaction (Intermediate, Verified 04/14/25 08:36) GI UPSET to short acting form-is taking long acting & OK Medication List - Last Reconciled 04/14/25 by Linh Mcnulty RN acetaminophen ER 650 mg PO Q6H PRN albuterol sulfate 2.5 mg inhalation Q4H PRN albuterol sulfate 90 mcg/actuation (Ventolin HFA) 2 puffs inhalation Q6H PRN blood sugar diagnostic (FreeStyle Lite Strips) As directed blood-glucose meter (FreeStyle Lite Meter kit) Use daily As directed to check blood sugars compress.stocking,knee,reg,med 15-20 cm ferrous gluconate 324 mg PO DAILY furosemide (Lasix) 20 mg PO DAILY PRN levothyroxine 50 mcg PO QAM metformin ER 500 mg PO BID nebulizers As directed Oxygen Home Use As directed rimegepant (Nurtec ODT) 75 mg PO Q OTHER DAY rosuvastatin 10 mg PO BEDTIME sertraline 100 mg PO DAILY sildenafil (pulm.hypertension) 20 mg PO TID tirzepatide (Mounjaro) 12.5 mg (0.5 mL) subcut QWEEK warfarin 5 mg See Protocol PO DAILY 30 days Nursing Note INR: 3.0- in therapeutic range of 2-3 Medications and supplements reviewed No changes in health, diet, medications, or supplements, Denies any signs and symptoms of bleeding or bruising or clotting. Bleeding, bruising, clotting discussed Nutritional guidance given Dose: 2.5mg x 7 F/U INR: 1 week Patient verbalizes understanding of instructions given Anti-Coag Initial Assessment Social Hx Patient Tobacco Use Status: Never used Tobacco alcohol intake: former Alcohol intake frequency: does not drink Cardiovascular Hx: HTN Lung Disease HX: DVT/PE Endocrine Hx: Thyroid Disease Musculoskeletal Hx: Arthritis Blood Disorder Hx: Anemia and Hyperlipidemia GI Hx: Ulcers, Diverticulosis and Hemorrhoids Hx: Other Neurological Hx: Migraines/Headaches and Other Cancer HX: No Psych. Illness/Depression: Yes Coding Level of Care Code Est Patient Level 1 Diagnoses Current use of anticoagulant therapy Z79.01 Assessment & Plan Assessment & Plan (1) Current use of anticoagulant therapy: Code(s): Z79.01 - shelter (current) use of anticoagulants Category: Medical
--- OUTSIDE RECORDS SUMMARY | 2025-04-14 08:43 | XMS_ITS | Clinical Summary ---
Author Organization [facility] it Address [address] [place] [address] Care Team Providers Care Spring Salvage Worker Name Role Phone Unavailable Primary Care [...] Documents on File Type Date Recorded Patient Nursing Executive Expl anation Health Care Decision (hx) 10/31/2020 AD MERCEDES DIRECTIVE
--- OUTSIDE RECORDS SUMMARY | 2025-04-14 08:43 | XMS_ITS | Encounter Summary ---
Author Organization [facility] Address [address] [place] [phone] Phone Care Team Providers Care District Administrator Name Role Phone Deena Workman MD Primary Care Provider Encounter Details Date Type Department Care Team (Late st Contact Info) Description 04/11/2025 Ancillary Orders [facility] Imaging [address] [place] [address] Nick Barnard MD [address] [address] [email or web address] Social History Tobacco Use Types Packs/Day Years [...] as of this encounter Plan of Treatment Upcoming Encounters Date Type Department Care Team (Late st Contact Info) Description 08/03/2025 9:00 AM EST Telemedicine [facility] [address] [place] [address], [address] Floor, [address] [place] [address] Nick Barnard MD [address] [place] [address] [place] [address] [email or web address] documented as of this encounter Results * NM Lung Outside (No Interpretation) (03/03/2025 12:00 AM EDT) Narrative [facility] IMG INTERFACES - 04/11/2025 12:02 PM EDT This study is for PACS storage only and not for interpretation. us Nick Barnard MD IMG OUTSIDE IMAGING W/OUT INTERPRETATION Final Result [facility] IMG INTERFACES documented in this encounter Visit Diagnoses Not on filedocumented in this encounter Care Teams District Administrator Relationship Specialty Start Date End Date Deena Workman MD [address] [place] [address] [place] [phone] PCP - General Internal Medicine 04/11/23 documented as of this encounter Additional Source Comments The information contained in this document represents components of the legal health record. It is not the complete legal health record.[facility]
== END 2025-04-14 08:51 | disposition home or self-care (01) ==
LOC: HO.ACS 08:29
PROVIDERS: PCP Internal Medicine; Visit Provider Internal Medicine Medical Oncology
DX: Z79.01 Long term (current) use of anticoagulants (principal)

== ENCOUNTER → 2025-04-14 08:29 | Outpatient (BNVA) | payer OTHER, SELFPAY | PROVIDERS: PCP Internal Medicine; Visit Provider Internal Medicine Medical Oncology | DX: Z79.01 Long term (current) use of anticoagulants (principal) | CPT/HCPCS: 85610; 99211 ==

== ENCOUNTER 2025-04-22 14:32 | Outpatient (REF) | payer OTHER, SELFPAY ==
--- OUTSIDE RECORDS SUMMARY | 2025-04-22 14:34 | XMS_ITS | Encounter Summary ---
Author Organization [facility] Address [address] [place] [address] [address] [place] [address] Phone Care Team Providers Care Paramedical Aide Name Role Phone Deena Workman MD Primary Care Provider Reason for Referral * Outpatient Procedure - Closed Specialty Diagnoses / Procedures Referred By Contac t Referred To Contact Radiology Diagnoses Dyspnea, unspecified Pulmonary embolism Procedures NM Lung Perfusion Imaging NM Lung Ventilation and Perfusion Imaging NM Lung Perfusion and Ventilation Differential Quantification NM Lung Perfusion Imaging NM Lung Ventilation and Perfusion Imaging [place] PULMONARY VENTILATION & PERFUSION IMAGING [place] QUANT DIFF PULM PRFUSION & VENTLAJ W/WO IMAGING Nick Barnard MD Phone: tel: fax: mailto:[email or web address] Referral ID Status Reason Start Date Expiration Date Visits Re quested Visits Authorized [id number] Closed 08/14/2023 1 1 Encounter Details Date Type Department Care Team (Late st Contact Info) Description 10/13/2023 Ancillary Orders [facility] [address] [facility], 2nd Floor, [address] [place] [address] Nick Barnard MD [address] [place] [address] [id number] [place] [address] [email or web address] Dyspnea, unspecified (Primary Dx); Pulmonary embolism [...] Info) Description 08/03/2025 9:00 AM EST Telemedicine [facility] [facility] [address] [place] [address], [address] Floor, [address] [place] [address] Nick Barnard MD [address] [place], [place] [id number] [place] [address] [email or web address] documented as of this encounter [...] Luis Benson. Narrative 10/13/2023 6:10 PM EST NM LUNG PERFUSION IMAGING Lung Perfusion Scan COMPARISON: [...] Procedure Note Isabel Schmidt MD - 10/13/2023 NM LUNG PERFUSION IMAGING Lung Perfusion Scan COMPARISON: [...] Dr. Luis Benson. us Nick Barnard MD IMG NM LUNG SCAN Fi nal Result documented in this encounter Visit Diagnoses Diagnosis Dyspnea, unspecified Pulmonary embolism Other pulmonary embolism and infarction Dyspnea, unspecified- Primary Pulmonary embolism Other pulmonary embolism and infarction documented in this encounter Care Teams Paramedical Aide Relationship Specialty Start Date End Date Deena Workman MD [address] [place] [address] [place] [address] PCP - General Internal Medicine 04/11/23 documented as of this encounter Additional Source Comments The information contained in this document represents components of the legal health record. It is not the complete legal health record.[facility]
--- OUTSIDE RECORDS SUMMARY | 2025-04-22 14:34 | XMS_ITS | Clinical Summary ---
Author Organization [facility] it Address [address] [place] [address] Care Team Providers Care Food Court Team Member Name Role Phone Unavailable Primary Care Provider [...] Screening: P ap Smear 1995 COVID-19 Vaccine (1 - 2023-2 5 season) 2024 Pneumococcal Vaccine: [...] Documents on File Type Date Recorded Patient Day Treatment Clinician/Art Therapist Expl anation Health Care Decision (hx) 10/31/2020 AD MERCEDES DIRECTIVE
[2025-04-22 16:50] LABS: Anion Gap 13 (12-20); Blood Urea Nitrogen 8 mg/dL (9-16); Calcium 8.7 mg/dL (8.4-10.2); Carbon Dioxide 23 mmol/L (22-29); Chloride 106 mmol/L (96-108); Estimated Glomerular Filt Rate 55; Potassium 4.2 mmol/L (3.3-5.1); Sodium 138 mmol/L (135-145)
== END 2025-04-22 14:33 | disposition home or self-care (01) ==
LOC: HO.LAB 14:32
PROVIDERS: Visit Provider Internal Medicine Hypertension Specialist
DX: E11.22 Type 2 diabetes mellitus with diabetic chronic kidney disease (principal); N18.9 Chronic kidney disease, unspecified; E66.01 Morbid (severe) obesity due to excess calories; M79.89 Other specified soft tissue disorders; Z68.39 Body mass index [BMI] 39.0-39.9, adult; Z79.84 Long term (current) use of oral hypoglycemic drugs; I26.99 Other pulmonary embolism without acute cor pulmonale; Z51.81 Encounter for therapeutic drug level monitoring; Z79.01 Long term (current) use of anticoagulants
CPT/HCPCS: 36415; 80048; 82947; 85610; 99211; 99212

== ENCOUNTER 2025-04-22 14:34 | Outpatient (AMB) | payer OTHER, SELFPAY ==
--- NOTE | 2025-04-22 14:47 | MHC.OFFVISCO ---
Intake Intake Visit Reasons: Anticoagulation Allergies lisinopril (LISINOPRIL) Allergy (Severe, Verified 04/22/25 14:34) ANGIOEDEMA dapagliflozin (From FARXIGA) Allergy (Intermediate, Verified 04/22/25 14:34) HIVES erythromycin base (ERYTHROMYCIN BASE) Allergy (Intermediate, Verified 04/22/25 14:34) Hives liraglutide (From VICTOZA) Allergy (Intermediate, Verified 04/22/25 14:34) RASH amitriptyline (AMITRIPTYLINE) Adverse Reaction (Intermediate, Verified 04/22/25 14:34) lethargy metformin (METFORMIN) Adverse Reaction (Intermediate, Verified 04/22/25 14:34) GI UPSET to short acting form-is taking long acting & OK Medication List - Last Reconciled 04/22/25 by Yola Herring RN acetaminophen ER 650 mg PO Q6H PRN albuterol sulfate 2.5 mg inhalation Q4H PRN albuterol sulfate 90 mcg/actuation (Ventolin HFA) 2 puffs inhalation Q6H PRN blood sugar diagnostic (FreeStyle Lite Strips) As directed blood-glucose meter (FreeStyle Lite Meter kit) Use daily As directed to check blood sugars compress.stocking,knee,reg,med 15-20 cm ferrous gluconate 324 mg PO DAILY furosemide (Lasix) 20 mg PO DAILY PRN levothyroxine 50 mcg PO QAM metformin ER 500 mg PO BID nebulizers As directed Oxygen Home Use As directed rimegepant (Nurtec ODT) 75 mg PO Q OTHER DAY rimegepant (Nurtec ODT) 75 mg PO Q OTHER DAY rosuvastatin 10 mg PO BEDTIME sertraline 100 mg PO DAILY sildenafil (pulm.hypertension) 20 mg PO TID tirzepatide (Mounjaro) 12.5 mg (0.5 mL) subcut QWEEK warfarin 5 mg See Protocol PO DAILY 30 days Nursing Note NO CP,SOB,DIET/MED CHANGES,FALLS OR SX OF BLEEDING. CONTINUE PRESENT DOSE AND FOLLOW-UP IN 1 WEEK GOOD UNDERSTANDING OF DOSING INSTR. Anti-Coag Initial Assessment Social Hx Patient Tobacco Use Status: Never used Tobacco alcohol intake: former Alcohol intake frequency: does not drink Cardiovascular Hx: HTN Lung Disease HX: DVT/PE Endocrine Hx: Thyroid Disease Musculoskeletal Hx: Arthritis Blood Disorder Hx: Anemia and Hyperlipidemia GI Hx: Ulcers, Diverticulosis and Hemorrhoids Hx: Other Neurological Hx: Migraines/Headaches and Other Cancer HX: No Psych. Illness/Depression: Yes Coding Level of Care Code Est Patient Level 1 Diagnoses Current use of anticoagulant therapy Z79.01 Results AMB INR Fingerstick AMB INR Fingerstick 2.9 Last Edit by Yola Herring RN on 04/22/25 14:43 Assessment & Plan Assessment & Plan (1) Current use of anticoagulant therapy: Code(s): Z79.01 - terminal manager (current) use of anticoagulants Category: Medical
[2025-04-22 14:48] LABS: Prothrombin Time Whole Bld POC 34.7 sec (11.1-13.5); ~PT, ~INR - Anti Coag Clinic 2.9 (0.9-1.1)
== END 2025-04-22 14:49 | disposition home or self-care (01) ==
LOC: HO.ACS 14:34
PROVIDERS: PCP Internal Medicine; Visit Provider Internal Medicine Medical Oncology
DX: Z79.01 Long term (current) use of anticoagulants (principal)

== ENCOUNTER 2025-04-22 15:18 | Outpatient (AMB) | payer OTHER, SELFPAY ==
[2025-04-22 15:22] VITALS: PULSE 86; O2SAT 98; BMI 39.9
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
== END 2025-04-22 15:47 | disposition home or self-care (01) ==
LOC: HO.ENCR 15:19
PROVIDERS: PCP Internal Medicine; Visit Provider Physician Assistant
DX: E11.9 Type 2 diabetes mellitus without complications (principal); E66.01 Morbid (severe) obesity due to excess calories; M79.89 Other specified soft tissue disorders

== ENCOUNTER 2025-04-23 10:50 | Outpatient (REF) | payer OTHER, SELFPAY ==
[2025-04-23 11:01] LABS: Appearance Urine Clear; Glucose Urine UA Negative (Negative); PH 5.5 (5.0-9.0); Specific Gravity - Urine 1.015 (1.005-1.025)
[2025-04-23 11:38] LABS: Total Protein Urine Random 8 mg/dL (<12)
== END 2025-04-23 10:51 | disposition home or self-care (01) ==
LOC: HO.LNP 10:50
PROVIDERS: Visit Provider Internal Medicine Hypertension Specialist
DX: N18.9 Chronic kidney disease, unspecified (principal)
CPT/HCPCS: 81003; 82570; 84156

== ENCOUNTER 2025-04-27 10:57 | Outpatient (RCR) | payer OTHER, SELFPAY ==
--- NOTE | 2025-04-27 12:03 | MHC.PT.EP ---
[facility] [place] Office [place] Office [place] Office [address] Vivien Tucker [address] [phone] F: [phone] F: [phone] F: [phone] F: [phone] Physical Therapy Plan of Care Date of Evaluation: 04/27/25 Date of Surgery: NA Diagnosis: DORSALGIA, SHOULDER PAIN Assessment: Pt IS 49 YO F REFERRED TO PT FROM DR DE LEON WITH DORSALGIA AND L SHLDER PAIN. Pt WITH C/O UPPER AND LOWER BACK PAIN, L SHLDER PAIN ALL OF INSIDIOUS ONSET. PRESENTS WITH LIMITED TRUNK AND LE FLEXIBILITY, DECREASED L SHOULDER ROM AND STRENGTH. POOR CORE STRENGTH. HAS HAD PT MULTIPLE TIMES IN PAST WITH SOME RELIEF (BUT HAS NOT CONTINUED WITH HOME PROGRAM). SHOULDE BENEFIT FROM PT TO ADDRESS THESE ISSUES Frequency and Duration: The patient will be seen 2X.WK X 6 WKS Short Term Goals: 1. INCREASED AWARNENESS OF BACK CARE AND POSTURE 2. Pt TO PERF 2-3 TASKS WITH PROPER BODY MECH 3. INCREASED L HIP FLEX TO 90DEGREES Press Tender Star [employer] Goals: 1. I HEP WITH DC EX PLAN 2. IMPROVED MOD OSWESTRY (36/50 SOC) 3. INCREASED L SHLDER FLEX AND ABD 10-20 DEGREES 4. DECREASED UPPER AND LB PAIN AT LEAST 50% WITH ADLS 5. DECREASED L SHLDER PAIN AT LEAST 50% WITH ADLS Treatment Plan: Modalities to reduce pain, spasms and effusion. Manual therapy to restore motion and function. Therapeutic exercise to improve strength and flexibility. Neuromuscular re-education for posture and balance. Therapeutic activities to return to functional activities of daily living. Electronically signed by: SERGIO HANDLEY PT Please sign and return to therapist. Thank you for your referral.
--- NOTE | 2025-06-08 14:22 | MHC.PT.DC ---
[facility] [place] Office [place] Office [place] Office [address] Vivien Tucker [address] [phone] F: [phone] F: [phone] F: [phone] F: [phone] Physical Therapy Discharge Report Diagnosis: DORSALGIA, SHOULDER PAIN Date of Surgery: NA Date of Evaluation: 04/27/25 Date of Discharge: 06/08/25 Treatments to Date: 1 Cancellations to Date: No Shows to Date: Discharge Status: Patient Elected to Stop Discharge Summary: Pt SEEN FOR INIT EVAL ONLY. SHE HAD TO CX APPTS (SICK/FAMILY EMERGENCY). PER CX NOTE, Pt WILL GET A NEW ORDER FOR WHEN SHE CAN RETURN. PER INIT EVAL ASSESSMENT: Pt IS 49 YO F REFERRED TO PT FROM DR DE LEON WITH DORSALGIA AND L SHLDER PAIN. Pt WITH C/O UPPER AND LOWER BACK PAIN, L SHLDER PAIN ALL OF INSIDIOUS ONSET. PRESENTS WITH LIMITED TRUNK AND LE FLEXIBILITY, DECREASED L SHOULDER ROM AND STRENGTH. POOR CORE STRENGTH. HAS HAD PT MULTIPLE TIMES IN PAST WITH SOME RELIEF (BUT HAS NOT CONTINUED WITH HOME PROGRAM). SHOULDE BENEFIT FROM PT TO ADDRESS THESE ISSUES Electronically signed by: SERGIO HANDLEY PT Please sign and return to therapist. Thank you for your referral.
== END 2025-06-08 14:23 | disposition home or self-care (01) ==
LOC: HO.PT 10:57
PROVIDERS: PCP Internal Medicine; Visit Provider Internal Medicine
DX: M54.50 Low back pain, unspecified (principal); M25.511 Pain in right shoulder; M25.512 Pain in left shoulder; M54.2 Cervicalgia
CPT/HCPCS: 97110; 97162; 97535

== ENCOUNTER 2025-04-28 09:21 | Outpatient (AMB) | payer OTHER, SELFPAY ==
[2025-04-28 09:31] LABS: Prothrombin Time Whole Bld POC 25.2 sec (11.1-13.5); ~PT, ~INR - Anti Coag Clinic 2.1 (0.9-1.1)
--- NOTE | 2025-04-28 09:37 | MHC.OFFVISCO ---
Intake Intake Visit Reasons: Anticoagulation Allergies lisinopril (LISINOPRIL) Allergy (Severe, Verified 04/28/25 09:26) ANGIOEDEMA dapagliflozin (From FARXIGA) Allergy (Intermediate, Verified 04/28/25 09:26) HIVES erythromycin base (ERYTHROMYCIN BASE) Allergy (Intermediate, Verified 04/28/25 09:26) Hives liraglutide (From VICTOZA) Allergy (Intermediate, Verified 04/28/25 09:26) RASH amitriptyline (AMITRIPTYLINE) Adverse Reaction (Intermediate, Verified 04/28/25 09:26) lethargy metformin (METFORMIN) Adverse Reaction (Intermediate, Verified 04/28/25 09:26) GI UPSET to short acting form-is taking long acting & OK Medication List - Last Reconciled 04/28/25 by Yola Herring RN acetaminophen ER 650 mg PO Q6H PRN albuterol sulfate 2.5 mg inhalation Q4H PRN albuterol sulfate 90 mcg/actuation (Ventolin HFA) 2 puffs inhalation Q6H PRN blood sugar diagnostic (FreeStyle Lite Strips) As directed blood-glucose meter (FreeStyle Lite Meter kit) Use daily As directed to check blood sugars compress.stocking,knee,reg,med 15-20 cm ferrous gluconate 324 mg PO DAILY furosemide (Lasix) 20 mg PO DAILY PRN levothyroxine 50 mcg PO QAM nebulizers As directed Oxygen Home Use As directed rimegepant (Nurtec ODT) 75 mg PO Q OTHER DAY rosuvastatin 10 mg PO BEDTIME sertraline 100 mg PO DAILY sildenafil (pulm.hypertension) 20 mg PO TID tirzepatide (Mounjaro) 15 mg (0.5 mL) subcut QWEEK warfarin 5 mg See Protocol PO DAILY 30 days Nursing Note NO CP,SOB,DIET/MED CHANGES,FALLS OR SX OF BLEEDING. CONTINUE PRESENT DOSE AND FOLLOW-UP IN 1 WEEK GOOD UNDERSTANDING OF DOSING INSTR. TO START PHYSICAL THERAPY NEXT WEEK. Anti-Coag Initial Assessment Social Hx Patient Tobacco Use Status: Never used Tobacco alcohol intake: former Alcohol intake frequency: does not drink Cardiovascular Hx: HTN Lung Disease HX: DVT/PE Endocrine Hx: Thyroid Disease Musculoskeletal Hx: Arthritis Blood Disorder Hx: Anemia and Hyperlipidemia GI Hx: Ulcers, Diverticulosis and Hemorrhoids Hx: Other Neurological Hx: Migraines/Headaches and Other Cancer HX: No Psych. Illness/Depression: Yes Coding Level of Care Code Est Patient Level 1 Diagnoses Current use of anticoagulant therapy Z79.01 Assessment & Plan Assessment & Plan (1) Current use of anticoagulant therapy: Code(s): Z79.01 - [facility] (current) use of anticoagulants Category: Medical
--- OUTSIDE RECORDS SUMMARY | 2025-04-28 10:28 | XMS_ITS | Encounter Summary ---
Author Organization [facility] Address [address] [place] [address] [address] [place] [address] Phone Care Team Providers Care Design Project Manager Name Role Phone Deena Workman MD Primary Care Provider Reason for Referral * Outpatient Procedure - Closed Specialty Diagnoses / Procedures Referred By Contac t Referred To Contact Radiology Diagnoses Dyspnea, unspecified Pulmonary embolism Procedures NM Lung Perfusion Imaging NM Lung Ventilation and Perfusion Imaging NM Lung Perfusion and Ventilation Differential Quantification NM Lung Perfusion Imaging NM Lung Ventilation and Perfusion Imaging MT PULMONARY VENTILATION & PERFUSION IMAGING MT QUANT DIFF PULM PRFUSION & VENTLAJ W/WO IMAGING Nick Barnard MD Phone: tel: fax: mailto:[email or web address] Referral ID Status Reason Start Date Expiration Date Visits Re quested Visits Authorized [id number] Closed 08/14/2023 1 1 Encounter Details Date Type Department Care Team (Late st Contact Info) Description 10/13/2023 Ancillary Orders [facility] [address] [facility] [facility], 2nd Floor, [address] [place] [address] Nick Barnard MD [address] [place] [address] [id number] [place] [address] [email or web address] Dyspnea, unspecified (Primary Dx); Pulmonary embolism Social [...] Info) Description 08/03/2025 9:00 AM EST Telemedicine [facility] Pul[facility] [address] [place] [address], [address]nd Floor, [address] [place] [address] Nick Barnard MD [address] [place], [place] [id number] [place] [address] [email or web address] documented as of this encounter [...] infarction documented in this encounter Care Teams Design Project Manager Relationship Specialty Start Date End Date Deena Workman MD [address] [place] [address] [place] [phone] PCP - General Internal Medicine 04/11/23 documented as of this encounter Additional Source Comments The information contained in this document represents components of the legal health record. It is not the complete legal health record.[facility]
--- OUTSIDE RECORDS SUMMARY | 2025-04-28 10:28 | XMS_ITS | Clinical Summary ---
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
== END 2025-04-28 09:39 | disposition home or self-care (01) ==
LOC: HO.ACS 09:21
PROVIDERS: PCP Internal Medicine; Visit Provider Internal Medicine Medical Oncology
DX: Z79.01 Long term (current) use of anticoagulants (principal)

== ENCOUNTER → 2025-04-28 09:21 | Outpatient (BNVA) | payer OTHER, SELFPAY | PROVIDERS: PCP Internal Medicine; Visit Provider Internal Medicine Medical Oncology | DX: E11.22 Type 2 diabetes mellitus with diabetic chronic kidney disease (principal); N18.9 Chronic kidney disease, unspecified; I27.20 Pulmonary hypertension, unspecified; C73 Malignant neoplasm of thyroid gland; D69.6 Thrombocytopenia, unspecified; I26.99 Other pulmonary embolism without acute cor pulmonale; Z79.01 Long term (current) use of anticoagulants; Z51.81 Encounter for therapeutic drug level monitoring | CPT/HCPCS: 85610; 99211; 99212 ==

== ENCOUNTER 2025-04-28 09:54 | Outpatient (AMB) | payer OTHER, SELFPAY ==
[2025-04-28 09:57] VITALS: BP 120/72; PULSE 89; O2SAT 97; BMI 39.9
--- NOTE | 2025-04-28 09:57 | HO.NEPHOV ---
Vital Signs 04/28/25 09:57 Height 5 ft 5 in Weight 240 lb BMI 39.9 BP 120/72 Blood Pressure Location Lt radial Position Sitting Pulse 89 Pulse Source Pulse Oximeter Pulse Oximetry (%) 97 Oxygen Delivery Method Room Air Intake Visit Reasons: CKD/ Conf Director Safety Council Required: No Accompanied by: Self / Same As Patient Allergies lisinopril (LISINOPRIL) Allergy (Severe, Verified 04/28/25 09:58) ANGIOEDEMA dapagliflozin (From FARXIGA) Allergy (Intermediate, Verified 04/28/25 09:58) HIVES erythromycin base (ERYTHROMYCIN BASE) Allergy (Intermediate, Verified 04/28/25 09:58) Hives liraglutide (From VICTOZA) Allergy (Intermediate, Verified 04/28/25 09:58) RASH amitriptyline (AMITRIPTYLINE) Adverse Reaction (Intermediate, Verified 04/28/25 09:58) lethargy metformin (METFORMIN) Adverse Reaction (Intermediate, Verified 04/28/25 09:58) GI UPSET to short acting form-is taking long acting & OK Medication List - Last Reconciled 04/28/25 by Franklyn Skinner MD acetaminophen ER 650 mg PO Q6H PRN albuterol sulfate 2.5 mg inhalation Q4H PRN albuterol sulfate 90 mcg/actuation (Ventolin HFA) 2 puffs inhalation Q6H PRN blood sugar diagnostic (FreeStyle Lite Strips) As directed blood-glucose meter (FreeStyle Lite Meter kit) Use daily As directed to check blood sugars compress.stocking,knee,reg,med 15-20 cm ferrous gluconate 324 mg PO DAILY furosemide (Lasix) 20 mg PO DAILY PRN levothyroxine 50 mcg PO QAM nebulizers As directed Oxygen Home Use As directed rimegepant (Nurtec ODT) 75 mg PO Q OTHER DAY rosuvastatin 10 mg PO BEDTIME sertraline 100 mg PO DAILY sildenafil (pulm.hypertension) 20 mg PO TID tirzepatide (Mounjaro) 15 mg (0.5 mL) subcut QWEEK warfarin 5 mg See Protocol PO DAILY 30 days HPI Comments Details: Domonique is a pleasant 48-year-old woman with a history of diabetes mellitus and hypertension with mild CKD. Baseline serum creatinine is around 1.1 mg/dL with EGFR of about 50-60 mL/minute. He recently there has been a bump in the serum creatinine and as of December 2023 creatinine was 1.7 with EGFR of 30 mL/minute and she has been referred for further evaluation. In June 2023 and prior to that she had no significant microalbuminuria. Previous urinalysis was benign. She has had no imaging studies for the kidney She has a complicated history including COVID-19 infection in October of 2020 which was complicated by pulmonary embolism. She has undergone angioplasty at [facility]. She is on anticoagulation. She is being followed by Dr. Land from [facility]. She has been diagnosed with factor 5 laden deficiency She has chronic anemia. She is on iron supplementation but there has been no significant improvement in hemoglobin. She has microcytic picture Upon reviewing the labs she has had thrombocytopenia since April 2023 and the recent platelet count is [id number]. Domonique has no hemoptysis. No chest pain. No gross hematuria. No edema. No new rash or petechia. No joint pains. No nausea vomiting no diarrhea constipation no weight loss. Mother at age of 61 and she had kidney disease. She has 3 brothers no family history of any connective tissue disease or end stage renal disease She has 1 daughter age 22 and normal delivery. 01/15/24; She was in the ER last night for pharyngitis. From renal standpoint she is doing very well. She was found to have iron deficiency 02/04; Cr is down to 1.4; close to baseline; Off Valsartan HCT 05/07/24; Doing well. Seen by Rheum- work up in progress;Off Valsartan HCT since January 2024 ;Had CoVID in March 2024; still has some cough 11/01/24: Here for 6 month follow up. No urinary complaints. c/o Right flank pain. 04/28/25 The patient is a 49-year-old female here for follow up for chronic kidney disease Diabetes mellitus and hypertension are well managed. Recent medication adjustments include stopping glimepiride and metformin, with an increased dose of Mounjaro. Blood glucose is controlled, and significant weight loss is noted. Kidney function has improved with creatinine reduced to 1.06 mg/dL and eGFR increased to 55%. Urine tests show minimal proteinuria. Mild edema is present in the left leg. MEDICAL HISTORY: - Diabetes mellitus - Hypertension - Chronic kidney disease MEDICATIONS: - Mounjaro: Increased dosage for diabetes management SOCIAL HISTORY: - Weight management: Significant weight loss from 308 pounds to 240 pounds DIAGNOSTIC RESULTS: - Labs: Creatinine decreased from 1.79 mg/dL in December 2023 to 1.06 mg/dL - Labs: eGFR increased from 30% to 55% - Urine tests: No proteinuria observed PFSH Medical History Migraine without aura CKD (chronic kidney disease) stage 4, GFR 15-29 ml/min PPD positive, treated Hx of angiography IBS (irritable bowel syndrome) Lymphedema Pleurisy with effusion Pulmonary hypertension Hypercoagulable state Thyroid cancer Chronic thromboembolic disease Lower extremity edema Multinodular thyroid Family history of deep venous thrombosis Pleuritic chest pain Dyspareunia in female Anemia Obstructive sleep apnea Morbid obesity History of COVID-19 (~2020) History of pulmonary embolus (PE) (~2020) Anxiety Chronic headaches Dyspnea on exertion Diabetes type 2, controlled Hypothyroid HTN (hypertension) Hyperlipidemia Surgical History Hx of partial thyroidectomy H/O colonoscopy History of surgery on right wrist History of foot surgery History of tubal ligation History of carpal tunnel surgery History of ERCP History of laparoscopic cholecystectomy History of surgery Family History Father Myocardial infarction COPD (chronic obstructive pulmonary disease) Mother COPD (chronic obstructive pulmonary disease) Brother Colitis Daughter Headache Social History Housing: House Are you a primary youth career specialist to a significant other at home: No Do you presently have visiting nurse or other home services: Yes (home services for oxygen) Alcohol intake: former Comment: pt d/c home Patient Tobacco Use Status: Never used Tobacco service: No Current occupational status: employed 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 Lungs entry equal no rales. Heart S1-S2 heard no gallop or rub. Abdomen soft nontender. Neuro alert awake oriented. No asterixis. Extremities no edema. Results Reviewed Nephrology Results: Sodium, (135-145) 138 mmol/L 04/22/25 Potassium, (3.3-5.1) 4.2 mmol/L 04/22/25 Chloride, (96-108) 106 mmol/L 04/22/25 Carbon Dioxide, (22-29) 23 mmol/L 04/22/25 BUN, (9-16) 8 mg/dL L 04/22/25 Creatinine, (0.5-1.4) 1.06 mg/dL 04/22/25 Calcium, (8.4-10.2) 8.7 mg/dL 04/22/25 Urine Protein, (Neg-Trace) Negative mg/dL 04/23/25 Urine Creatinine 88.50 mg/dL 04/23/25 Renal US 01/19/24 Assessment & Plan Assessment & Plan (1) CKD (chronic kidney disease): Code(s): N18.9 - Chronic kidney disease, unspecified Category: Medical (2) Pulmonary hypertension: Code(s): I27.20 - Pulmonary hypertension, unspecified Category: Medical (3) T2DM (type 2 diabetes mellitus): Code(s): E11.9 - Type 2 diabetes mellitus without complications Category: Medical Qualifiers: Diabetes mellitus group home insulin use: without group home use Diabetes mellitus complication status: without complication Qualified Code(s): E11.9 - Type 2 diabetes mellitus without complications (4) Thyroid cancer: Code(s): C73 - Malignant neoplasm of thyroid gland Category: Medical (5) Thrombocytopenia: Code(s): D69.6 - Thrombocytopenia, unspecified Category: Medical Plan Middle woman with a history of diabetes mellitus has acute kidney injury superimposed on chronic kidney disease. Underlying chronic kidney disease may be due to longstanding diabetes mellitus in a setting obesity and hypertension. The differential diagnosis for acute kidney injury is rather extensive. blood pressure was rather low and she was on a high dose of ARB and diuretic. She had component of hypoperfusion leading to LEXUS. After stopping Valsartan HCT, Cr has improved! Obstructive uropathy ruled out based on renal ultrasound Underlying glomerulonephritis and interstitial disease seem less likely based on bland urine She has unexplained thrombocytopenia. Recommendations Continue to hold valsartan hydrochlorothiazide Encouraged to continue avoiding NSAIDs and other nephrotoxins. Maintain adequate intake Urine sediments benign No evidence of AGN or AIN ANANDA positive DsANA negative C3/c4 low ANCA negative No MCGP Follow up with Rheumatology Blood pressure is acceptable Watch BP ; Low salt diet Orders: Orders Basic Metabolic Panel 6 Months N18.9 - Chronic kidney disease, unspecified Total Protein Urine Random 6 Months N18.9 - Chronic kidney disease, unspecified UA and rflx microscopic 6 Months N18.9 - Chronic kidney disease, unspecified Creatinine Urine 6 Months N18.9 - Chronic kidney disease, unspecified Coding Level of Care Code Est Pt Level 4 (95866) Diagnoses CKD (chronic kidney disease) N18.9 Pulmonary hypertension I27.20 Type 2 diabetes mellitus without complication, without long-term current use of insulin E11.9 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
== END 2025-04-28 10:06 | disposition home or self-care (01) ==
LOC: HO.HKA 09:55
PROVIDERS: PCP Internal Medicine; Visit Provider Internal Medicine Hypertension Specialist
DX: N18.9 Chronic kidney disease, unspecified (principal); I27.20 Pulmonary hypertension, unspecified; E11.9 Type 2 diabetes mellitus without complications; C73 Malignant neoplasm of thyroid gland; D69.6 Thrombocytopenia, unspecified
CPT/HCPCS: 99214

== ENCOUNTER 2025-05-10 10:08 | Outpatient (AMB) | payer OTHER, SELFPAY ==
[2025-05-10 10:43] LABS: Prothrombin Time Whole Bld POC 25.3 sec (11.1-13.5); ~PT, ~INR - Anti Coag Clinic 2.1 (0.9-1.1)
--- NOTE | 2025-05-10 10:48 | MHC.OFFVISCO ---
Intake Intake Visit Reasons: Anticoagulation Allergies lisinopril (LISINOPRIL) Allergy (Severe, Verified 05/10/25 10:37) ANGIOEDEMA dapagliflozin (From FARXIGA) Allergy (Intermediate, Verified 05/10/25 10:37) HIVES erythromycin base (ERYTHROMYCIN BASE) Allergy (Intermediate, Verified 05/10/25 10:37) Hives liraglutide (From VICTOZA) Allergy (Intermediate, Verified 05/10/25 10:37) RASH amitriptyline (AMITRIPTYLINE) Adverse Reaction (Intermediate, Verified 05/10/25 10:37) lethargy metformin (METFORMIN) Adverse Reaction (Intermediate, Verified 05/10/25 10:37) GI UPSET to short acting form-is taking long acting & OK Medication List - Last Reconciled 05/10/25 by Francine Mitchell RN acetaminophen ER 650 mg PO Q6H PRN albuterol sulfate 2.5 mg inhalation Q4H PRN albuterol sulfate 90 mcg/actuation (Ventolin HFA) 2 puffs inhalation Q6H PRN blood sugar diagnostic (FreeStyle Lite Strips) As directed blood-glucose meter (FreeStyle Lite Meter kit) Use daily As directed to check blood sugars compress.stocking,knee,reg,med 15-20 cm ferrous gluconate 324 mg PO DAILY furosemide (Lasix) 20 mg PO DAILY PRN levothyroxine 50 mcg PO QAM nebulizers As directed Oxygen Home Use As directed rimegepant (Nurtec ODT) 75 mg PO Q OTHER DAY rosuvastatin 10 mg PO BEDTIME sertraline 100 mg PO DAILY sildenafil (pulm.hypertension) 20 mg PO TID tirzepatide (Mounjaro) 15 mg (0.5 mL) subcut QWEEK warfarin 5 mg See Protocol PO DAILY 30 days Nursing Note INR: 2.1 in therapeutic range of 2-3 Medications and supplements reviewed No changes in health, diet, medications, or supplements, Denies any signs and symptoms of bleeding or bruising or clotting. Bleeding, bruising, clotting discussed Nutritional guidance given to avoid greens today Dose: 2.5mg daily F/U INR: 1 week Patient verbalizes understanding of instructions given Anti-Coag Initial Assessment Social Hx Patient Tobacco Use Status: Never used Tobacco alcohol intake: former Alcohol intake frequency: does not drink Cardiovascular Hx: HTN Lung Disease HX: DVT/PE Endocrine Hx: Thyroid Disease Musculoskeletal Hx: Arthritis Blood Disorder Hx: Anemia and Hyperlipidemia GI Hx: Ulcers, Diverticulosis and Hemorrhoids Hx: Other Neurological Hx: Migraines/Headaches and Other Cancer HX: No Psych. Illness/Depression: Yes Coding Level of Care Code Est Patient Level 1 Diagnoses Current use of anticoagulant therapy Z79.01 Assessment & Plan Assessment & Plan (1) Current use of anticoagulant therapy: Code(s): Z79.01 - FPC (current) use of anticoagulants Category: Medical
--- OUTSIDE RECORDS SUMMARY | 2025-05-10 11:35 | XMS_ITS | Encounter Summary ---
Author Organization [facility] Address [address] [place] [address] [place] [id number] Phone Care Team Providers Care Janitor Head Name Role Phone Deena Workman MD Primary Care Provider Encounter Details Date Type Department Care Team (Late st Contact Info) Description 04/25/[address] [facility] [address], [place] [address] [facility], 2nd Floor, [address] [place] [address] Social History Tobacco Use Types Packs/Day Years Used Date Smoking Tobacco: Never Assessed Education Answer Date Recorded Are you interested in more education? Not on tatiana e 04/25/2023 Are you concerned about learning? Not on file 04/25/2023 No 04/25/2023 No 04/25/2023 Digital Access Answer Date Recorded No 04/25/2023 No 04/25/2023 Reliable internet access at home? Not on file 04/25/2023 Device with a working camera? Not on file Comments Unknown Sex and Gender Information Value Date Recorded Sex Assigned at Female 04/11/2023 2:28 PM EDT Legal Sex Female 2:26 PM EDT Gender Identity Female 04/11/2023 2:28 PM EDT Sexual Orientation Straight 04/11/2023 2: 28 PM EDT documented as of this encounter Plan of Treatment Upcoming Encounters Date Type Department Care Team (Late st Contact Info) Description 08/03/2025 9:[address] [facility]ension [facility] [address] [facility], 2nd Floor, [address] [place] [address] Nick Barnadr MD [address] [place] [id number] [email or web address] documented as of this encounter Visit Diagnoses Not on filedocumented in this encounter Care Teams Janitor Head Relationship Specialty Start Date End Date Deena Workman MD [address] [place] [address] [place] [phone] PCP - General Internal Medicine 04/11/23 documented as of this encounter Additional Source Comments The information contained in this document represents components of the legal health record. It is not the complete legal health record.[facility]
--- OUTSIDE RECORDS SUMMARY | 2025-05-10 11:35 | XMS_ITS | Encounter Summary ---
Author Organization [facility] Address [address] [place] [address] [address] [place] [address] Phone Care Team Providers Care Textbook Associate Name Role Phone Deena Workman MD Primary Care Provider Encounter Details Date Type Department Care Team (Late st Contact Info) Description 08/11/2023 Procedure Pass [facility] Cardiac Job Hand [address] [facility], [address] 9, [address] [place] [address] Social History Tobacco Use Types Packs/Day Years [...] PM EDT documented as of this encounter Functional Status * Calculated C-SSRS Risk Score (Lifetime/Recent) Answer Date of Assessment Author No Risk Indicated 08/11/2023 10:00 PM EST Ab Hyman RN * [place] Suicide Severity Rating Scale (Screener/Recent Self-Report) Question Answer Date of Assessment Author 1. Wish to be (Past 1 Month) No 08/11/2023 10:00 PM Ab Lopez RN 2. Non-Specific Active Suicidal Thoughts (Past 1 Month) No 08/11/2023 10:00 PM Ab Lopez RN 6. Suicidal Behavior (Lifetime) No 08/11/2023 10:00 PM Ab Lopez RN documented as of this encounter Plan of Treatment Upcoming Encounters Date Type Department Care Team (Late st Contact Info) Description 08/03/2025 9:00 AM EST Telemedicine [facility] Pulmonary Hypertension Clinic [address] [place] [address], 2nd Floor, [address] [place] [address] Nick Barnard MD [address] [place], [place] [id number] [place] [address] [email or web address] documented as of this encounter Visit Diagnoses Not on filedocumented in this encounter Care Teams Textbook Associate Relationship Specialty Start Date End Date Deena Workman MD [address] [place] [address] [place] [phone] PCP - General Internal Medicine 04/11/23 documented as of this encounter Additional Source Comments The information contained in this document represents components of the legal health record. It is not the complete legal health record.[facility]
--- OUTSIDE RECORDS SUMMARY | 2025-05-10 11:35 | XMS_ITS | Encounter Summary ---
Author Organization [facility] Address [address] [place] [address] [address] [place] [address] Phone Care Team Providers Care Fourdrinier Operator Name Role Phone Deena Workman MD Primary Care Provider Encounter Details Date Type Department Care Team (Late st Contact Info) Description 05/29/2023 Procedure Pass [facility] Cardiac Peoplesoft Taleo Manager [address] [facility], [address] 9, [address] [place] [id number] Social History Tobacco Use Types Packs/Day Years [...] Info) Description 08/03/2025 9:00 AM EST Telemedicine [facility]pertension Clinic [address] [facility], 2nd Floor, [address] [place] [address] Nick Barnard MD [address] [place] [phone] [email or web address] documented as of this encounter Visit Diagnoses Not on filedocumented in this encounter Care Teams Fourdrinier Operator Relationship Specialty Start Date End Date Deena Workman MD [address] [place] [address] [place] [phone] PCP - General Internal Medicine 04/11/23 documented as of this encounter Additional Source Comments The information contained in this document represents components of the legal health record. It is not the complete legal health record.[facility]
--- OUTSIDE RECORDS SUMMARY | 2025-05-10 11:35 | XMS_ITS | Encounter Summary ---
Author Organization [facility] Address [address] [place] [address] [address] [place] [address] Phone Care Team Providers Care Activities Concierge Name Role Phone Deena Workman MD Primary Care Provider Encounter Details Date Type Department Care Team (Late st Contact Info) Description 08/04/2023 Procedure Pass [facility] [place]iac Time Study Statistician [address] [facility], [address] 9, [address] [place] [address] Social History Tobacco Use Types [...] Date of Assessment Author No Risk Indicated 08/04/2023 6:37 PM Yolis Mann RN * [place] Suicide Severity Rating Scale (Screener/Recent Self-Report) Question Answer Date of Assessment Author 1. Wish to be (Past 1 Month) No 08/04/2023 6:37 PM Yolis Mann RN 2. Non-Specific Active Suicidal Thoughts (Past 1 Month) No 08/04/2023 6:37 PM Yolis Mann RN 6. Suicidal Behavior (Lifetime) No 08/04/2023 6:37 PM Yolis Mann RN documented as of this encounter Plan of Treatment Upcoming Encounters Date Type Department Care Team (Late st Contact Info) Description 08/03/2025 9:00 AM EST Telemedicine [facility] [address] [place] [address], 2nd Floor, [address] [place] [address] Nick Barnard MD [address] [place] [phone] [email or web address] documented as of this encounter Visit Diagnoses Not on filedocumented in this encounter Care Teams Activities Concierge Relationship Specialty Start Date End Date Deena Workman MD [address] [place] [address] [place] [phone] PCP - General Internal Medicine 04/11/23 documented as of this encounter Additional Source Comments The information contained in this document represents components of the legal health record. It is not the complete legal health record.[facility]
--- OUTSIDE RECORDS SUMMARY | 2025-05-10 11:35 | XMS_ITS | Encounter Summary ---
Author Organization [facility] Address [address] [place] [address] [address] [place] [address] Phone Care Team Providers Care Publicist Name Role Phone Deena Workman MD Primary Care Provider Reason for Referral * Outpatient Procedure - Closed Specialty Diagnoses / Procedures Referred By Contac t Referred To Contact Radiology Diagnoses Dyspnea, unspecified Pulmonary embolism Procedures NM Lung Perfusion Imaging NM Lung Ventilation and Perfusion Imaging NM Lung Perfusion and Ventilation Differential Quantification NM Lung Perfusion Imaging NM Lung Ventilation and Perfusion Imaging ND PULMONARY VENTILATION & PERFUSION IMAGING ND QUANT DIFF PULM PRFUSION & VENTLAJ W/WO IMAGING Nick Barnard MD Phone: tel: fax: [email or web address] Referral ID Status Reason Start Date Expiration Date Visits Re quested Visits Authorized [id number] Closed 08/14/2023 1 1 Encounter Details Date Type Department Care Team (Late st Contact Info) Description 10/13/2023 Ancillary Orders [facility] [address], 2nd Floor, [address] [place] [address] Nick Barnard MD [address] [place] [address] [address] [place] [address] [email or web address]@ [email or web address] Dyspnea, unspecified (Primary Dx); Pulmonary embolism Social [...] Info) Description 08/03/2025 9:00 AM EST Telemedicine [facility] [address] [place] [address], [address] Floor, [address] [place] [address] Nick Barnard MD [address] [place], [place] [id number] [place] [address] [email or web address] documented as of this encounter Results * [...] infarction documented in this encounter Care Teams Publicist Relationship Specialty Start Date End Date Deena Workman MD [address] [place] [address] [place] [id number] PCP - General Internal Medicine 04/11/23 documented as of this encounter Additional Source Comments The information contained in this document represents components of the legal health record. It is not the complete legal health record.[facility]
--- OUTSIDE RECORDS SUMMARY | 2025-05-10 11:35 | XMS_ITS | Clinical Summary ---
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
== END 2025-05-10 10:51 | disposition home or self-care (01) ==
LOC: HO.ACS 10:08
PROVIDERS: PCP Internal Medicine; Visit Provider Internal Medicine Medical Oncology
DX: Z79.01 Long term (current) use of anticoagulants (principal)

== ENCOUNTER → 2025-05-10 10:08 | Outpatient (BNVA) | payer OTHER, SELFPAY | PROVIDERS: PCP Internal Medicine; Visit Provider Internal Medicine Medical Oncology | DX: Z79.01 Long term (current) use of anticoagulants (principal) | CPT/HCPCS: 85610; 99211 ==

== ENCOUNTER 2025-05-13 09:49 | Outpatient (AMB) | payer OTHER, SELFPAY ==
[2025-05-13 09:55] VITALS: BP 144/86; PULSE 77; O2SAT 100
--- NOTE | 2025-05-13 09:55 | MHC.OFFVIS ---
Vital Signs 05/13/25 09:55 Height 5 ft 5 in BMI Reason not done Patient refused/unable BP 144/86 H Blood Pressure Location Lt brachial Position Sitting Pulse 77 Pulse Source Pulse Oximeter Pulse Oximetry (%) 100 Oxygen Delivery Method Nasal Cannula Oxygen Flow Rate 3 Intake Visit Reasons: PE Freight Checker Required: No Accompanied by: Self / Same As Patient Allergies lisinopril (LISINOPRIL) Allergy (Severe, Verified 05/13/25 09:57) ANGIOEDEMA dapagliflozin (From FARXIGA) Allergy (Intermediate, Verified 05/13/25 09:57) HIVES erythromycin base (ERYTHROMYCIN BASE) Allergy (Intermediate, Verified 05/13/25 09:57) Hives liraglutide (From VICTOZA) Allergy (Intermediate, Verified 05/13/25 09:57) RASH amitriptyline (AMITRIPTYLINE) Adverse Reaction (Intermediate, Verified 05/13/25 09:57) lethargy metformin (METFORMIN) Adverse Reaction (Intermediate, Verified 05/13/25 09:57) GI UPSET to short acting form-is taking long acting & OK HPI Comments Details: The patient is a 49-year-old woman with a known history of pulmonary emboli currently on Eliquis presenting with worsening dyspnea symptoms. Patient complains of dyspnea on exertion. Moderate severity. denies any wheezing or coughing. The patient does not have any respiratory inhalers at this time. She denies any wheezing although she does have chest tightness. In addition to that the patient does have daytime drowsiness. Her [place] score is elevated 12/24. The patient does have cardiovascular risk factors. Patient needs to undergo home sleep study this time. We did review imaging studies that we have available including a CT scan of the chest angiogram ruling out pulmonary embolism in the spring. the lung parenchyma is also within normal limits which is reassuring. 08/16/2022 the patient is here for a pulmonary follow-up visit. The patient overall has been feeling relatively well. She still has some daytime drowsiness. Her [place] score is elevated 9/24. The patient did have a sleep study done. Appears that she was sleeping the most part on her back and she had a mild degree of sleep apnea with an AHI just above 5. her sleep apnea was less severe when she laid on her sides. Therefore she wants to try positional therapy for now. If she does not improved after positional therapy then can consider CPAP therapy. The patient also continues on the Eliquis. She is tolerating it well. No minor major bleeding noted. she did undergo pulmonary function studies personally by me demonstrating an isolated moderate diffusion impairment. We did talk about potentially chronic thromboembolic disease could result in this presentation. But she is also anemic and that can also result in the diffusing impairment as well. She is currently on iron. 10/25/2022 the patient is here for pulmonary follow-up visit. The patient has been complaining of increasing shortness of breath. Moderate severity. Also complaining of right-sided pleuritic chest pain. She went to the gym yesterday and she got short of breath and also felt dizzy. She did undergo blood work which we reviewed. She has an elevated white count in addition to a left shift suggesting an infectious process. On further questioning she has been coughing more recently. In addition to that she does complaint of that pleuritic discomfort. She did have blood work which we debrided reviewed together. White count is elevated consistent with an infectious process. In addition to that her D-dimer is elevated. On further questioning she is not taking her Eliquis correctly. She is only doing it daily. With her elevated D-dimer in the pleuritic chest pain in a history of previous blood clots the patient needs to get a repeat CT scan of the chest PE protocol. Will request 1 at this time. However, being Friday if the patient develops any worsening symptoms she should go to the ER. 01/09/2023 the patient is here for a pulmonary follow-up visit. The patient still having shortness of breath even after being hospitalized. She did increase her Eliquis medication to twice a day. The patient still has significant shortness of breath with minimal activity moderate severity. She complains of chest discomfort. She is wondering if the Eliquis is working. She did follow-up with her oncologist. It appears that she does have factor 5 Leiden putting her risk for blood clots and also her family. She needs to make sure the family is aware of this had artery disease. We did taken for walking oximetry the patient did desaturate down to 87% with activity and she was also tachycardic to 130. I am concerned that she may have at this point chronic thromboembolic disease. Will go ahead and order a V/Q scan and switch over to Coumadin. If the patient continues to have blood clots even after that will have to consider a referral to [facility]. 02/06/2023 The patient is here for a follow up visit. Switched over to coumadin. But, then ended up with a tooth infection and placed on abx. Started developing headaches and blurry vision. She had her INR check and it was critically high 6.8. She is using the oxygen with good effect. Has an ECHO scheduled for next week. We will plan to repeat her VQ scan in 6-8 weeks, if no better, then will need a referral to [facility] for [place]. In the meantime, I did call the ED triage and took her to the ED to assess for an acute bleed for the supra therapeutic INR. 07/23/2023 the patient is here for a pulmonary follow-up visit. The patient continues to be about the same. Still having shortness of breath with activity. The oxygen has been affecting beneficial. She continues on the Coumadin. Her Coumadin levels continue to fluctuate. The patient did go to [facility]. Chief deemed high risk for the pulmonary artery enterectomy therefore, the patient will undergo angioplasty. Will be broken up in about 3-4 procedures. She will have to switch over to Lovenox intermittently for the procedures. Will going to go ahead and work with the Coumadin clinic in order to do so effectively. She will continue with the oxygen for now. The patient also has to follow-up with her surgeon for the abnormal findings of the thyroid but that can hold and wait until she is stable from a pulmonary standpoint. She continues to work with her licensed practical nurse instructor regarding her diabetes which appears to be better. She will continue with current therapy. Will follow-up in a couple months after she has completed with her angioplasty and perform a 6 minutes walk test to see if we can titrate her down to a conserving device in order for her to have an easier time caring the oxygen. We can also consider the use of vasodilators very therapy. Will discuss that further with [facility]. 11/11/2023 the patient is here for a pulmonary follow-up visit. She is status post angioplasty although pulmonary vessels. Unfortunately she continues to be short of breath. Her V/Q scan in [facility] demonstrated some slight improvement per the patient's report. I do not have any objective data at this time. She continues use her oxygen with activity and also with sleep. She continues on the blood thinners currently on Coumadin. She is tolerating it well maintaining the INR within therapeutic range. We did take her briefly for walking oximetry to see if she can tolerated conserving device. But, the patient became very tachycardic and also dyspneic. The patient still has significant pulmonary hypertension due to the chronic thromboembolic disease. This is WHO group 4. in view of her ongoing symptoms of tachycardia shortness of breath this is consistent with a [place] Heart Association class 4 where she is short of breath even at rest. Therefore, will place on vasodilators therapy, PD 5 inhibitor, to treat her underlying pulmonary hypertension. The patient was start the medication and then returned 3 months but we can repeat her echocardiogram and also repeat her 6 minute walk test with the hope that she can tolerate then the conserving device. The patient is also having significant daytime drowsiness. Her [place] score is elevated 08/01. She does have increased cardiovascular risk factors. The patient will benefit for another sleep study. She did have mild sleep apnea back in 2021. at this point she will require an in-lab sleep study. The patient will hold off for now but will further discuss it during her follow-up. 03/09/2024 the patient is here for a pulmonary follow-up visit. Since we last spoke the patient did undergo her thyroid surgery. She did tolerate well. However, after she did develop worsening shortness of breath. She was recommended to go to the ER. She went to the [facility] ER. There she had a CTA. I did personally review. No evidence of any pulmonary emboli in no evidence of any airspace disease. Otherwise look reasonable. The patient did have blood work at [facility] demonstrating an elevated brain atretic peptide. The patient was treated and released. The patient does have her oxygen therapy although she has a hard time carrying the Tanks after surgery. She seems a little volume overload. We did review her last echocardiogram. She has a 1+ diastolic dysfunction. She does have slight increase in the right ventricular size but otherwise normal function and normal pulmonary pressures which is reassuring. She does continue on the sildenafil. She has tolerating the vasodilators well. She continues on the Coumadin. Her levels are slightly subtherapeutic. She will continue to work closely with the Coumadin clinic. 07/12/2024 the patient is here for a pulmonary follow-up visit. Since we last spoke she started developing left-sided pleuritic discomfort. She went to the ER this is an June. There she did have a chest x-ray. I personally reviewed. Appears that she has a small pleural effusion there that is new consistent with pleurisy. The patient's symptoms did improve. Will have to get a repeat x-ray to make sure things are better. She does continue to use the oxygen with good effect. In the office we did go for a walking oximetry and a conserving trial. She did very well on 2 L pulse maintaining a pulse ox of 96% with activity on 2 L pulse. She was still tachycardic throughout the ambulation consistent with a history of chronic thromboembolic disease. Her last echo was back in February and was reassuring pressures are better. Although will go ahead and repeat them specially because some concerned that with the angioplasty the results can reverse. If that is the case we can always consider increasing the Revatio. She continues to take Coumadin. She does have lower extremity edema but is asymmetrical with left more than right. Will go ahead and request a ultrasound to make sure she does not have a clot specially with the ongoing tachycardia. 10/14/2024 the patient is here for a pulmonary follow-up visit. Overall she is doing okay now. She did have some severe headaches and her INR was critically elevated at 13. at that point she went to the hospital she did have a CT of the brain without any evidence of any acute disease. She was given vitamin K. Afterwards her INR was very low and did not increase above 1. Therefore she had to go on Lovenox for some time. She did check her INR today was 2.3 which is reassuring. She is no longer having to the Lovenox. In the meantime the patient continues use the oxygen. She does complaint of dyspnea on exertion. We did review her last echocardiogram done in the fall demonstrating no evidence of any pulmonary hypertension which is reassuring. She continues on the sildenafil with good response. She also continues use the oxygen. She has also had significant amount of weight loss. Will continue to monitor her INR. If we still have issues with significant fluctuations of her INR then will look into switching her to a non vitamin K anticoagulation such as Xarelto. She had tried and failed Eliquis in the past. However, may have an issue with the fact that she had only been taking it once a day therefore with her weight loss we can consider other alternatives. She did not like the idea of staying on the Lovenox because he had significant amount of pain and bruising from the shots. 02/11/2025 The patient is here for pulmonary follow-up visit. The patient still complains of significant shortness of breath. Moderate severity. The oxygen is partially helpful. Her POC is also not working effectively. The arteries no longer charging. I did call the [employer] company in order for him to get an urgent evaluation since she does need the oxygen. She continues on sildenafil. She has not seen any significant improvement with breathing. She has had significant amount of weight loss. She still continues on the Coumadin and has been therapeutic. Will go ahead and request a repeat echocardiogram and also V/Q scan. If the patient does have evidence of significant chronic thromboembolic disease now that her sugars are better controlled and she has had significant weight loss in her health is overall better we could consider sending her back to [facility] to see if she will be a candidate for pulmonary arterial endarterectomy. We can also consider increasing the sildenafil in the meantime. Will follow-up in 2-3 months. If she has not issues prior to that she will call for an earlier assessment. 05/13/2025 the patient is here for pulmonary follow-up visit. If she is not feeling well. She has aches and pains her body. This is something new. She is also dealing with significant headaches. She is working closely with Neurology for that. She continues on the Coumadin. Although the Coumadin levels have been fluctuating. At time she has required Lovenox in at time she had to be evaluated because of significant supra therapeutic levels. With the headaches always concerned for the possibility of clotting such as sinus thrombosis. She should follow-up with her neurologist regarding additional imaging studies. In the meantime the patient did have her V/Q scan demonstrating interval worsening of her V/Q mismatch suggesting the possibility of persistent chronic thromboembolic disease. The echocardiogram was indeed reassuring. She continues on sildenafil 3 times a day. She does have an appointment in [facility], sometime in July. She continues use the oxygen with good effect. With her ongoing constitutional symptoms in the fact that her clots were never really clear in etiology I believe we should repeat her blood work looking for inflammatory connective tissue conditions specially since she is having significant pain. Would be reasonable to try her on a course of Plaquenil just for a month and see if this provides her some relief. [facility] Medical History Migraine without aura CKD (chronic kidney disease) stage 4, GFR 15-29 ml/min PPD positive, treated Hx of angiography IBS (irritable bowel syndrome) Lymphedema Pleurisy with effusion Pulmonary hypertension Hypercoagulable state Thyroid cancer Chronic thromboembolic disease Lower extremity edema Multinodular thyroid Family history of deep venous thrombosis Pleuritic chest pain Dyspareunia in female Anemia Obstructive sleep apnea Morbid obesity History of COVID-19 (~2020) History of pulmonary embolus (PE) (~2020) Anxiety Chronic headaches Dyspnea on exertion Diabetes type 2, controlled Hypothyroid HTN (hypertension) Hyperlipidemia Surgical History Hx of partial thyroidectomy H/O colonoscopy History of surgery on right wrist History of foot surgery History of tubal ligation History of carpal tunnel surgery History of ERCP History of laparoscopic cholecystectomy History of surgery Family History Father Myocardial infarction COPD (chronic obstructive pulmonary disease) Mother COPD (chronic obstructive pulmonary disease) Brother Colitis Daughter Headache Social History Housing: House Are you a primary palliative care nurse to a significant other at home: No Do you presently have visiting nurse or other home services: Yes (home services for oxygen) Alcohol intake: former Comment: pt d/c home Patient Tobacco Use Status: Never used Tobacco service: No Current occupational status: employed 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, 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 Current occupational exposures/hazards: No Review of Systems Const Denies chills, Reports daytime sleepiness, Reports difficulty sleeping, Denies fever(s), Denies frequent falls, Reports headache(s), Denies night sweats, Reports snoring and Reports weight loss Eyes Reports blurry vision, Reports change in vision and Reports eye pain ENT Reports dizziness and Reports headache(s) Card Reports chest pain, Denies chest pain at rest, Denies chest pain with activity, Denies irregular heart rhythm, Denies claudication, Reports leg edema, Denies palpitations and Reports dyspnea on exertion Resp Denies cough, Reports pain on inspiration, Reports pain with cough, Reports dyspnea on exertion and Reports snoring Musc Reports myalgias, Reports deformity, Reports arthralgias, Reports joint swelling, Denies limited range of motion and Reports stiffness Neuro Reports dizziness, Denies frequent falls and Reports headache(s) Endo Denies palpitations Physical Exam Vital Signs: Last Vital Signs Pulse 77 05/13/25 09:55 BP 144/86 H 05/13/25 09:55 Pulse Ox 100 05/13/25 09:55 Oxygen Delivery Method Nasal Cannula 05/13/25 09:55 Oxygen Flow Rate 3 05/13/25 09:55 Const General: cooperative, healthy appearing, no acute distress and alert Orientation/consciousness: oriented to person, oriented to place and oriented to time Limitations: no limitations HEENT Head: Yes normal to inspection, Yes normocephalic and Yes atraumatic Mouth: moist mucous membranes Eyes Sclerae: sclerae normal Neck Neck: Yes normal visual inspection Chest Chest palpation & inspection: normal inspection of the chest Resp Effort & Inspection: normal respiratory effort and able to speak in complete sentences Auscultation: no wheezes and diminished lung sounds Cardio Jugular venous distension: no JVD Rate: tachycardic Rhythm: regular rhythm Heart sounds: S1 normal heart sound present and S2 normal heart sound present GI Inspection: Yes normal to inspection Skin General skin exam: no rashes or lesions noted Neuro General: oriented to person, oriented to place, oriented to time and moves all extremities Gait exam (Neuro): Antalgic gait present Motor exam (neuro): 5/5 motor strength present throughout Extrem General: Yes no clubbing, cyanosis or edema Right lower extremity: knee Details: abnormal to inspection, tenderness Location: of the patella and of the lateral joint line, abnormal ROM, crepitus Location: at the kneww, deformity and warmth; no swelling and no ecchymosis Left lower extremity: knee Details: abnormal to inspection, tenderness, abnormal ROM, crepitus, deformity and warmth; no swelling and no ecchymosis Psych Appearance: grossly normal Mental Status: mental status grossly normal Speech and movement: Normal speech and movement present and Clear speech present Affect: normal affect Attitude: cooperative Thought process: Normal thought process present Thought content: Normal thought content present Insight: Good insight present (Psych) Judgement: Good judgement present (Psych) Assessment & Plan Assessment & Plan (1) Dyspnea: Code(s): R06.00 - Dyspnea, unspecified Category: Medical Qualifiers: Dyspnea type: dyspnea on exertion Qualified Code(s): R06.09 - Other forms of dyspnea (2) SERA (obstructive sleep apnea): Code(s): G47.33 - Obstructive sleep apnea (adult) (pediatric) Category: Medical (3) Bilateral pulmonary embolism: Code(s): I26.99 - Other pulmonary embolism without acute cor pulmonale Category: Medical (4) Lower extremity edema: Code(s): R60.0 - Localized edema Category: Medical (5) Chronic thromboembolic disease: Code(s): I74.9 - Embolism and thrombosis of unspecified artery Category: Medical (6) Pulmonary hypertension: Code(s): I27.20 - Pulmonary hypertension, unspecified Category: Medical (7) Lymphedema: Code(s): I89.0 - Lymphedema, not elsewhere classified Category: Medical (8) Pulmonary emboli: Code(s): I26.99 - Other pulmonary embolism without acute cor pulmonale Category: Medical Qualifiers: Pulmonary embolism type: other Chronicity: chronic Acute cor pulmonale presence: with acute cor pulmonale Qualified Code(s): I27.82 - Chronic pulmonary embolism; I26.09 - Other pulmonary embolism with acute cor pulmonale Plan s/p Angioplasty continue Coumadin, monitor INR continue sildenafil TID continue Symbicort Coumadin clinic continue oxygen 2L with activity, qualifies for POC 2L/pulse for better portability outside of the home. [employer] to check POC LORRIE as needed compression stocking Bloodwork Plaquenil trial x 1 month F/U at [facility] clinic next month F/U 2-3 months Orders: Orders Cyclic Citrullinated Peptide 05/13/25 R06.09 - Other forms of dyspnea, R07.81 - Pleurodynia, R09.1 - Pleurisy ANANDA Reflex Titer and Pattern 05/13/25 R06.09 - Other forms of dyspnea, R07.81 - Pleurodynia, R09.1 - Pleurisy D Dimer High Sensitivity 05/13/25 R06.09 - Other forms of dyspnea, R07.81 - Pleurodynia, R09.1 - Pleurisy Immunoglobulin E 05/13/25 R06.09 - Other forms of dyspnea, R07.81 - Pleurodynia, R09.1 - Pleurisy Angiotensin Converting Enzyme 05/13/25 R06.09 - Other forms of dyspnea, R07.81 - Pleurodynia, R09.1 - Pleurisy Erythrocyte Sedimentation Rate 05/13/25 R06.09 - Other forms of dyspnea, R07.81 - Pleurodynia, R09.1 - Pleurisy Liver Panel 05/13/25 R06.09 - Other forms of dyspnea, R07.81 - Pleurodynia, R09.1 - Pleurisy Scleroderma 70 Antibody 05/13/25 R06.09 - Other forms of dyspnea, R07.81 - Pleurodynia, R09.1 - Pleurisy Medications: New hydroxychloroquine (Plaquenil) 200 mg PO DAILY 30 tabs 0RF 30 days Coding Level of Care Code Est Pt Level 5 (74770) Complex EM visit Add On G2211 Diagnoses Dyspnea on exertion R06.09 Dyspnea type: dyspnea on exertion SERA (obstructive sleep apnea) G47.33 Bilateral pulmonary embolism I26.99 Lower extremity edema R60.0 Chronic thromboembolic disease I74.9 Pulmonary hypertension I27.20 Lymphedema I89.0 Other chronic pulmonary embolism with acute cor pulmonale I27.82; I26.09 Pulmonary embolism type: other Chronicity: chronic Acute cor pulmonale presence: with acute cor pulmonale Time Spent (min) 40
--- OUTSIDE RECORDS SUMMARY | 2025-05-13 10:36 | XMS_ITS | Clinical Summary ---
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
== END 2025-05-13 10:17 | disposition home or self-care (01) ==
LOC: HO.HPS 09:50
PROVIDERS: PCP Internal Medicine Medical Oncology; Visit Provider Hospitalist
DX: R06.09 Other forms of dyspnea (principal); G47.33 Obstructive sleep apnea (adult) (pediatric); I26.99 Other pulmonary embolism without acute cor pulmonale; R60.0 Localized edema; I74.9 Embolism and thrombosis of unspecified artery; I27.20 Pulmonary hypertension, unspecified; I89.0 Lymphedema, not elsewhere classified; I27.82 Chronic pulmonary embolism; I26.09 Other pulmonary embolism with acute cor pulmonale
CPT/HCPCS: 99214

== ENCOUNTER → 2025-05-13 09:49 | Outpatient (BNVA) | payer OTHER, SELFPAY | PROVIDERS: PCP Internal Medicine Medical Oncology; Visit Provider Hospitalist | DX: R60.0 Localized edema (principal); I89.0 Lymphedema, not elsewhere classified; I26.99 Other pulmonary embolism without acute cor pulmonale; G47.33 Obstructive sleep apnea (adult) (pediatric); I27.82 Chronic pulmonary embolism; I27.20 Pulmonary hypertension, unspecified; I74.9 Embolism and thrombosis of unspecified artery; Z99.89 Dependence on other enabling machines and devices; R07.81 Pleurodynia; R91.1 Solitary pulmonary nodule; R06.09 Other forms of dyspnea | CPT/HCPCS: 99212 ==

== ENCOUNTER 2025-05-18 08:42 | Outpatient (AMB) | payer OTHER, SELFPAY ==
[2025-05-18 08:48] LABS: Prothrombin Time Whole Bld POC 27.9 sec (11.1-13.5); ~PT, ~INR - Anti Coag Clinic 2.3 (0.9-1.1)
--- NOTE | 2025-05-18 08:49 | MHC.OFFVISCO ---
Intake Intake Visit Reasons: Anticoagulation Allergies lisinopril (LISINOPRIL) Allergy (Severe, Verified 05/13/25 09:57) ANGIOEDEMA dapagliflozin (From FARXIGA) Allergy (Intermediate, Verified 05/13/25 09:57) HIVES erythromycin base (ERYTHROMYCIN BASE) Allergy (Intermediate, Verified 05/13/25 09:57) Hives liraglutide (From VICTOZA) Allergy (Intermediate, Verified 05/13/25 09:57) RASH amitriptyline (AMITRIPTYLINE) Adverse Reaction (Intermediate, Verified 05/13/25 09:57) lethargy metformin (METFORMIN) Adverse Reaction (Intermediate, Verified 05/13/25 09:57) GI UPSET to short acting form-is taking long acting & OK Medication List - Last Reconciled 05/18/25 by Linh Mcnulty RN acetaminophen ER 650 mg PO Q6H PRN albuterol sulfate 2.5 mg inhalation Q4H PRN albuterol sulfate 90 mcg/actuation (Ventolin HFA) 2 puffs inhalation Q6H PRN blood sugar diagnostic (FreeStyle Lite Strips) As directed blood-glucose meter (FreeStyle Lite Meter kit) Use daily As directed to check blood sugars compress.stocking,knee,reg,med 15-20 cm ferrous gluconate 324 mg PO DAILY furosemide (Lasix) 20 mg PO DAILY 90 days hydroxychloroquine (Plaquenil) 200 mg PO DAILY 30 days levothyroxine 50 mcg PO QAM nebulizers As directed Oxygen Home Use As directed rimegepant (Nurtec ODT) 75 mg PO Q OTHER DAY rosuvastatin 10 mg PO BEDTIME sertraline 100 mg PO DAILY sildenafil (pulm.hypertension) 20 mg PO TID tirzepatide (Mounjaro) 15 mg (0.5 mL) subcut QWEEK warfarin 5 mg See Protocol PO DAILY 30 days Nursing Note INR: 2.3- in therapeutic range of 2-3 Medications and supplements reviewed- now on plaquenil for h/a- no interaction per micromedex No changes in health, diet, medications, or supplements, Denies any signs and symptoms of bleeding or bruising or clotting. Bleeding, bruising, clotting discussed Nutritional guidance given Dose: 2.5mg x 7 F/U INR: 2 weeks Patient verbalizes understanding of instructions given pt on oxygen prn, c.o fatigue Anti-Coag Initial Assessment Social Hx Patient Tobacco Use Status: Never used Tobacco alcohol intake: former Alcohol intake frequency: does not drink Cardiovascular Hx: HTN Lung Disease HX: DVT/PE Endocrine Hx: Thyroid Disease Musculoskeletal Hx: Arthritis Blood Disorder Hx: Anemia and Hyperlipidemia GI Hx: Ulcers, Diverticulosis and Hemorrhoids Hx: Other Neurological Hx: Migraines/Headaches and Other Cancer HX: No Psych. Illness/Depression: Yes Coding Level of Care Code Est Patient Level 1 Diagnoses Current use of anticoagulant therapy Z79.01 Assessment & Plan Assessment & Plan (1) Current use of anticoagulant therapy: Code(s): Z79.01 - intermodal customer service (current) use of anticoagulants Category: Medical
--- OUTSIDE RECORDS SUMMARY | 2025-05-18 10:07 | XMS_ITS | Encounter Summary ---
Author Organization [facility] Address [address] [place] [address] [place] [id number] Phone Care Team Providers Care Supercharger Repair Supervisor Name Role Phone Deena Workman MD Primary Care Provider Encounter Details Date Type Department Care Team (Late st Contact Info) Description 04/25/2023 Procedure Pass [facility], [place] [address] [facility], 2nd Floor, [address] [place] [address] Social History Tobacco Use Types Packs/Day Years [...] Info) Description 08/03/2025 9:00 AM EST Telemedicine [facility] [address] [facility], 2nd Floor, [address] [place] [address] Nick Barnard MD [address] [place] [id number] [email or web address] documented as of this encounter Visit Diagnoses Not on filedocumented in this encounter Care Teams Supercharger Repair Supervisor Relationship Specialty Start Date End Date Deena Workman MD [address] [place] [address] [place] [phone] PCP - General Internal Medicine 04/11/23 documented as of this encounter Additional Source Comments The information contained in this document represents components of the legal health record. It is not the complete legal health record.[facility]
--- OUTSIDE RECORDS SUMMARY | 2025-05-18 10:07 | XMS_ITS | Encounter Summary ---
Author Organization [facility] Address [address] [place] [address] [address] [place] [address] Phone Care Team Providers Care Saturation Equipment Operator Name Role Phone Deena Workman MD Primary Care Provider Reason for Referral * Outpatient Procedure - Closed Specialty Diagnoses / Procedures Referred By Contac t Referred To Contact Radiology Diagnoses Dyspnea, unspecified Pulmonary embolism Procedures NM Lung Perfusion Imaging NM Lung Ventilation and Perfusion Imaging NM Lung Perfusion and Ventilation Differential Quantification NM Lung Perfusion Imaging NM Lung Ventilation and Perfusion Imaging CT PULMONARY VENTILATION & PERFUSION IMAGING CT QUANT DIFF PULM PRFUSION & VENTLAJ W/WO IMAGING Nick Barnard MD Phone: tel: fax: [email or web address] Referral ID Status Reason Start Date Expiration Date Visits Re quested Visits Authorized [id number] Closed 08/14/2023 1 1 Encounter Details Date Type Department Care Team (Late st Contact Info) Description 10/13/2023 Ancillary Orders [facility] [address] [facility], 2nd Floor, [address] [place] [address] Nick Barnard MD [address] [place] [address] [address] [place] [address] [email or web address]@ [email or web address] Dyspnea, unspecified (Primary Dx); Pulmonary embolism [...] Info) Description 08/03/2025 9:00 AM EST Telemedicine [facility]pert[facility] Clinic [address] [place] [address], 2nd Floor, [address] [place] [address] Nick Barnard MD [address] [place], [place] [id number] [place] [address] [email or web address] documented as of this encounter Results * [...] infarction documented in this encounter Care Teams Saturation Equipment Operator Relationship Specialty Start Date End Date Deena Workman MD [address] [place] [address] [place] [phone] PCP - General Internal Medicine 04/11/23 documented as of this encounter Additional Source Comments The information contained in this document represents components of the legal health record. It is not the complete legal health record.[facility]
--- OUTSIDE RECORDS SUMMARY | 2025-05-18 10:07 | XMS_ITS | Encounter Summary ---
Author Organization [facility] Address [address] [place] [address] [address] [place] [address] Phone Care Team Providers Care Documentation Manager Name Role Phone Deena Workman MD Primary Care Provider Encounter Details Date Type Department Care Team (Late st Contact Info) Description 05/29/2023 Procedure Pass [facility] [place] Nurse [address] [facility], [address] 9, [address] [place] [id number] Social History Tobacco Use Types Packs/Day Years [facility] [address] [facility], 2nd Floor, [address] [place] [address] Nick Barnard MD [address] [place] [id number] [email or web address] documented as of this encounter Visit Diagnoses Not on filedocumented in this encounter Care Teams Documentation Manager Relationship Specialty Start Date End Date Deena Workman MD [address] [place] [address] [place] [phone] PCP - General Internal Medicine 04/11/23 documented as of this encounter Additional Source Comments The information contained in this document represents components of the legal health record. It is not the complete legal health record.[facility]
--- OUTSIDE RECORDS SUMMARY | 2025-05-18 10:07 | XMS_ITS | Clinical Summary ---
Author Organization [facility] Address [address] [place] [address] Phone Care Team Providers Care Waste And Batting Waste Chopper Name Role Phone Deena Workman MD Primary Care Provider Allergies Active Allergy Reactions Criticality Noted Date Comments Amitriptyline Hcl Other (See Comments) 08/01/20 23 [place] drugged Dapagliflozin 05/08/2023 Erythromycin 05/08/2023 Liraglutide 05/08/2023 [...] Active ferrous sulfate 324 mg (65 mg chicken ranch iron) TbEC Take 324 mg by mouth [...] 04/11/2025 Ancillary Orders [facility] [address] [place] [address] Nick Barnard MD 04/11/2025 Ancillary Orders [facility] [address] [place] [address] Nick Barnard MD 04/08/2025 Ancillary Orders [facility] [address] [place] [address] Nick Barnard MD 03/22/2025 - 03/22/2025 11:59 PM EDT Hospital Encounter [facility] [address] [place] [address] Nick Barnard MD Discharge Disposition: Home or Self Care 03/03/2025 - 03/03/2025 11:59 PM EDT Hospital Encounter [facility] [address] [place] [address] Nick Barnard MD Discharge Disposition: Home or Self Care 03/02/2025 - 03/02/2025 11:59 PM EDT Hospital Encounter [facility] [address] [place] [address] Nick Barnard MD Discharge Disposition: Home or [...] Info) Description 08/03/2025 9:00 AM EST Telemedicine [facility] Pul[facility] Hypertension Clinic [address] [place] [address], 2nd Floor, [address] [place] [address] Nick Barnard MD [address] [place] [address] [address] [place] [address] [email or web address] Health Maintenance Due Date Last Done Comments Adult Td,Tdap Booster 1974 LIPID PANEL 1974 TSH LEVEL 1974 DEPRESSION SCREENING 1986 HEPATITIS C SCREENING 1992 HIV ONE-TIME SCREENING (18-65 YEARS) 1992 PAP SMEAR 1995 SCREENING FOR DIABETES 2009 MAMMOGRAM 2014 COLOGUARD 2019 COLONOSCOPY 2019 COLORECTAL CANCER SCREENING 2019 FIT TEST 2019 FOBT 2019 SIGMOIDOSCOPY 2019 VIRTUAL COLONOSCOPY 2019 CREATININE LEVEL 08/12/2024 08/12/2023, 12/2022, 08/05/2023, Additional history exists POTASSIUM LEVEL 08/12/2024 08/12/2023, 1212/2022, 08/11/2023, Additional history exists ZOSTER VACCINES (1 of 2) 2024 INFLUENZA VACCINE (#1) 2025 3, 05/11/2022, 07/09/2021 COVID-19 VACCINE ( season) 2025 07/25/2022, 07/25/2021, 03/08/2021, Additional history exists PNEUMOCOCCAL VACCINES (50+ years) Completed 08/08/2022 SMOKING [...] (No Interpretation) (03/22/2025 12:00 AM EDT) Narrative [facility] IMG INTERFACES - 04/08/2025 2:27 PM EDT This study is for PACS storage only and not for interpretation. Nick Barnard MD IMG OUTSIDE IMAGING W/OUT INTERPRETATION Final Result Performing Organization Address City/[facility] Co de Phone Number [facility] IMG INTERFACES * Outside Imaging Report Only (03/17/2025) us Scanning Interface Provider IMG XR CHEST Alicia l Result * NM Lung Outside (No Interpretation) (03/03/2025 12:00 AM EDT) Narrative [facility] IMG INTERFACES - 04/11/2025 12:02 PM EDT This study is for PACS storage only and not for interpretation. Nick Barnard MD IMG OUTSIDE IMAGING W/OUT INTERPRETATION Final Result [facility] IMG INTERFACES * XR Chest Outside (No Interpretation) (03/02/2025 12:00 AM EDT) Narrative [facility] IMG INTERFACES - 04/11/2025 12:02 PM EDT This study is for PACS storage only and not for interpretation. us Nick Barnard MD IMG OUTSIDE IMAGING W/OUT INTERPRETATION Final Result [facility] IMG INTERFACES * (ABNORMAL) Basic metabolic panel (08/12/2023 8:36 AM EST) SODIUM 136 135 - 145 mmol/L [facility] POTASSIUM 3.7 3.4 - 5.0 mmol/L [facility] CHLORIDE 98 98 - 108 mmol/L [facility] CO2 26 23 - 32 mmol/L [facility] BUN 16 8 - 25 mg/dL [facility] CREATININE 1.43 0.60 - 1.50 mg/dL [facility] GLUCOSE 193(H) 70 - 110 mg/dL [facility] CALCIUM 8.6 8.5 - 10.5 mg/dL [facility] EGFR 45(L) >59 mL/min/1. 73m2 [facility] Comment:Estimated glomerular filtration rate calculated using the CKD-EPI refit equation. ANION GAP 12 3 - 17 mmol/L [facility] Blood 08/12/2023 8:36 AM EST 08/12/2023 8:53 AM EST us Haydee Fajardo [facility] BLOOD ORDERAB LES Final Result [address] [place] [address] [id number] from Last 3 Months or Most Recently Relevant to Health Maintenance Insurance [facility] B[facility] Advance Directives For more information, please contact: [phone] (9AM - 5PM [facility], Friday-Friday) * Full Code (Latest Code Status on File) Date Activated Date Inactivated Comments 08/12/2023 8:12 AM Question Answer Comments Code Status Confirmed With: Patient Code Status Communicated To: Inpatient Attending * Full Code Date Activated Date Inactivated Comments 08/04/2023 7:15 PM 08/12/2023 8:12 AM Question Answer Comments Code Status Confirmed With: Patient Care Teams Waste And Batting Waste Chopper Relationship Specialty Start Date End Date Deena Workman MD [address] [place] [address] [place] [address] PCP - General Internal Medicine 04/11/23 Additional Source Comments The information contained in this document represents components of the legal health record. It is not the complete legal health record.[facility]
--- OUTSIDE RECORDS SUMMARY | 2025-05-18 10:07 | XMS_ITS | Encounter Summary ---
Author Organization [facility] Address [address] [place] [address] [address] [place] [address] Phone Care Team Providers Care Head Operator Name Role Phone Deena Workman MD Primary Care Provider Encounter Details Date Type Department Care Team (Late st Contact Info) Description 08/11/2023 Procedure Pass [facility] Cardiac Education Officer [address] [facility], Floor 9, [address] [place] [address] Social History Tobacco Use Types [...] 10:00 PM EST Ab Hyman RN * [place] Suicide Severity Rating Scale (Screener/Recent Self-Report) Question [...] Info) Description 08/03/2025 9:00 AM EST Telemedicine [facility] Pul[facility] Hypertension Clinic [address] [place] [address], 2nd Floor, [address] [place] [address] Nick Barnard MD [address] [place], [place] [id number] [place] [address] [email or web address] documented as of this encounter Visit Diagnoses Not on filedocumented in this encounter Care Teams Head Operator Relationship Specialty Start Date End Date Deena Workman MD [address] [place] [address] [place] [phone] PCP - General Internal Medicine 04/11/23 documented as of this encounter Additional Source Comments The information contained in this document represents components of the legal health record. It is not the complete legal health record.[facility]
--- OUTSIDE RECORDS SUMMARY | 2025-05-18 10:07 | XMS_ITS | Clinical Summary ---
Author Organization [facility] ity Address [address] [place] [address] Care Team Providers Care Farm Equipment Engineer Name Role Phone Unavailable Primary Care Provider [...] Documents on File Type Date Recorded Patient Fashion Buying Internship Expl anation Health Care Decision (hx) 10/31/2020 AD MERCEDES DIRECTIVE
--- OUTSIDE RECORDS SUMMARY | 2025-05-18 10:07 | XMS_ITS | Encounter Summary ---
Author Organization [facility] Address [address] [place] [address] [address] [place] [address] Phone Care Team Providers Care Clinical Education Academic Coordinator Name Role Phone Deena Workman MD Primary Care Provider Encounter Details Date Type Department Care Team (Late st Contact Info) Description 08/04/2023 Procedure Pass [facility] Cardiac Drug Discovery Informatics Specialist [address] [facility], Floor 9, [address] [place] [address] Social History Tobacco Use Types [...] 08/04/2023 6:37 PM Yolis Mann RN * [place] Suicide Severity Rating Scale (Screener/Recent Self-Report) Question [...] Description 08/03/2025 9:00 AM EST Telemedicine [facility] Pulmonary Hypertension Clinic [address] [place] [address], 2nd Floor, [address] [place] [address] Nick Barnard MD [address] [place] [address] [email or web address] documented as of this encounter Visit Diagnoses Not on filedocumented in this encounter Care Teams Clinical Education Academic Coordinator Relationship Specialty Start Date End Date Deena Workman MD [address] [place] [address] [place] [address] PCP - General Internal Medicine 04/11/23 documented as of this encounter Additional Source Comments The information contained in this document represents components of the legal health record. It is not the complete legal health record.[facility]
== END 2025-05-18 08:54 | disposition home or self-care (01) ==
LOC: HO.ACS 08:42
PROVIDERS: PCP Internal Medicine; Visit Provider Internal Medicine Medical Oncology
DX: Z79.01 Long term (current) use of anticoagulants (principal)

== ENCOUNTER → 2025-05-18 08:42 | Outpatient (BNVA) | payer OTHER, SELFPAY | PROVIDERS: PCP Internal Medicine; Visit Provider Internal Medicine Medical Oncology | DX: G43.709 Chronic migraine without aura, not intractable, without status migrainosus (principal); I26.99 Other pulmonary embolism without acute cor pulmonale; Z79.01 Long term (current) use of anticoagulants; Z51.81 Encounter for therapeutic drug level monitoring | CPT/HCPCS: 85610; 99211; 99212 ==

== ENCOUNTER 2025-05-18 08:57 | Outpatient (AMB) | payer OTHER, SELFPAY ==
--- NOTE | 2025-05-18 08:59 | MHC.OFFVIS ---
Vital Signs 05/18/25 09:08 Height 5 ft 5 in Weight 238 lb BMI 39.6 BP 134/70 Blood Pressure Location Rt brachial Position Sitting Respiration 16 Pulse 82 Pulse Oximetry (%) 98 Intake Visit Reasons: Migraine Follow Up Allergies lisinopril (LISINOPRIL) Allergy (Severe, Verified 05/18/25 09:08) ANGIOEDEMA dapagliflozin (From FARXIGA) Allergy (Intermediate, Verified 05/18/25 09:08) HIVES erythromycin base (ERYTHROMYCIN BASE) Allergy (Intermediate, Verified 05/18/25 09:08) Hives liraglutide (From VICTOZA) Allergy (Intermediate, Verified 05/18/25 09:08) RASH amitriptyline (AMITRIPTYLINE) Adverse Reaction (Intermediate, Verified 05/18/25 09:08) lethargy metformin (METFORMIN) Adverse Reaction (Intermediate, Verified 05/18/25 09:08) GI UPSET to short acting form-is taking long acting & OK Medication List - Last Reconciled 05/18/25 by Monique Jones, NEIDA acetaminophen ER 650 mg PO Q6H PRN albuterol sulfate 2.5 mg inhalation Q4H PRN albuterol sulfate 90 mcg/actuation (Ventolin HFA) 2 puffs inhalation Q6H PRN blood sugar diagnostic (FreeStyle Lite Strips) As directed blood-glucose meter (FreeStyle Lite Meter kit) Use daily As directed to check blood sugars compress.stocking,knee,reg,med 15-20 cm ferrous gluconate 324 mg PO DAILY furosemide (Lasix) 20 mg PO DAILY 90 days galcanezumab-gnlm (Emgality Pen) 240 mg (2 mL) subcut ONCE galcanezumab-gnlm (Emgality Pen) 120 mg subcut QMONTH hydroxychloroquine (Plaquenil) 200 mg PO DAILY 30 days levothyroxine 50 mcg PO QAM nebulizers As directed Oxygen Home Use As directed rosuvastatin 10 mg PO BEDTIME sertraline 100 mg PO DAILY sildenafil (pulm.hypertension) 20 mg PO TID tirzepatide (Mounjaro) 15 mg (0.5 mL) subcut QWEEK warfarin 5 mg See Protocol PO DAILY 30 days HPI Comments Details: The patient is a 49-year-old female presenting with migraine headaches. She has experienced headaches for several years, with an increase in frequency over the past few months, occurring more days than not and sometimes severe enough to prevent her from lifting her head. The headaches vary in location, often affecting the top and front of the head, sometimes the eyes, and tend to favor the left side. The pain can be intense, causing dental pain, and is sometimes accompanied by sensitivity to sounds. The duration of headaches ranges from overnight to several days, with no clear triggers identified. The patient has tried multiple medications, including amitriptyline and topiramate, without significant relief. She was unable to start Nurtec due to insurance issues and is currently on hydroxychloroquine, which has not been effective for her headaches. Headache characteristics: Time of onset:Many years but worse over the past couple of months Location: Parietal to frontal L>R Radiation:Left eye Positional component:No Character:Paralyzing Severity:So bad she cannot life head off of pillow Duration:Can last several days Frequency:3-4 days per week Acute aggravating factors: None Acute relieving factors:None Associated symptoms: Dental pain, light sensitivity, nausea Aura: None Headache triggers:Unknown Relation to menses:Worse with periods but can feel different around time of menses Other related background information: Sleep:Sleep is very poor. Averages 4 hours per night. notes that she snores. Does have some gasping arousals. She has in the past been diagnosed with SERA. She does not use a cpap and has never trailed one aside from her Hydration:Good Caffeine intake:One tea per day Alcohol intake:None Substance use:None Tobacco use:None History of head injury:Concussion at age 2 with head strike to concrete floor Past medication trials: Amitriptyline Topiramate Propranolol- (not tried due to history of lung disease) Nurtec 75mg [id number]-aiy dosing but not able to get through insurance Prior workup: CT brain WO at [facility] in Jun 2015: mild to mod bifrontal atrophy [facility] Medical History Migraine without aura CKD (chronic kidney disease) stage 4, GFR 15-29 ml/min PPD positive, treated Hx of angiography IBS (irritable bowel syndrome) Lymphedema Pleurisy with effusion Pulmonary hypertension Hypercoagulable state Thyroid cancer Chronic thromboembolic disease Lower extremity edema Multinodular thyroid Family history of deep venous thrombosis Pleuritic chest pain Dyspareunia in female Anemia Obstructive sleep apnea Morbid obesity History of COVID-19 (~2020) History of pulmonary embolus (PE) (~2020) Anxiety Chronic headaches Dyspnea on exertion Diabetes type 2, controlled Hypothyroid HTN (hypertension) Hyperlipidemia Surgical History Hx of partial thyroidectomy H/O colonoscopy History of surgery on right wrist History of foot surgery History of tubal ligation History of carpal tunnel surgery History of ERCP History of laparoscopic cholecystectomy History of surgery Family History Father Myocardial infarction COPD (chronic obstructive pulmonary disease) Mother COPD (chronic obstructive pulmonary disease) Brother Colitis Daughter Headache Social History Housing: House Are you a primary veterinarian laboratory animal care to a significant other at home: No Do you presently have visiting nurse or other home services: Yes (home services for oxygen) Alcohol intake: former Comment: pt d/c home Patient Tobacco Use Status: Never used Tobacco service: No Current occupational status: unemployed Current occupational exposures/hazards: No Review of Systems Const Reports as per HPI Physical Exam Vital Signs: Last Vital Signs Pulse 82 05/18/25 09:08 Resp 16 05/18/25 09:08 BP 134/70 05/18/25 09:08 Pulse Ox 98 05/18/25 09:08 BMI result Body Mass Index 39.6 Const General: cooperative, healthy appearing, comfortable and no acute distress Nutritional Appearance: well nourished Orientation/consciousness: patient oriented x3 Limitations: no limitations HEENT Head: Yes normal to inspection and Yes normocephalic Eyes General: appearance normal, both eyes and all related structures Visual Hanson: normal visual hanson by confrontation Alignment and Position: alignment normal Periorbital: periorbital findings normal Eyelids: Yes eyelids normal Conjunctivae: conjunctivae normal Sclerae: sclerae normal Direct Ophthalmoscopy: normal light reflex, no papilledema and fundi normal bilaterally Neck Neck: Yes normal visual inspection and Yes full ROM Back/Spine/Pelvis Back: other (Bilateral upper trapezius tightness and tenderness to palpation ) Thoracic/Lumbar Spine: thoracic and lumbar spine normal to inspection Neuro General: patient oriented x3 Cranial nerves: Yes CN's II-XII intact bilaterally and Yes Facial sensation intact/muscles of mastication intact Cognition (Neuro): normal cognition Gait exam (Neuro): Normal gait present Motor exam (neuro): 5/5 motor strength present throughout and no tremor noted Sensory Exam: double simultaneous stimulation for sensation normal Deep tendon reflexes (DTR's): Right triceps reflex intensity grade: 1+, Left triceps reflex intensity grade: 1+, Rt Biceps (C5, C6): 1+, Left biceps reflex intensity grade: 1+, Right brachioradialis reflex intensity grade: 1+, Left brachioradialis reflex intensity grade: 1+, Right patellar reflex intensity grade: 1+, Left patellar reflex intensity grade: 1+ and Right ankle reflex intensity grade: 1+ Romberg Test: Negative Pupils: Normal pupillary reactivity/response: bilateral Psych Appearance: grossly normal Mental Status: mental status grossly normal Speech and movement: Normal speech and movement present and Clear speech present Affect: normal affect Attitude: cooperative Thought process: Normal thought process present Thought content: Normal thought content present Insight: Good insight present (Psych) Judgement: Good judgement present (Psych) Assessment & Plan Assessment & Plan (1) Chronic migraine without aura without status migrainosus, not intractable: Code(s): G43.709 - Chronic migraine without aura, not intractable, without status migrainosus Category: Medical Plan The patient will start Emgality injections, with a loading dose of two injections initially, followed by one injection monthly. A follow-up is scheduled in three months to evaluate the treatment's effectiveness. Pt educated with demonstration how to inject the emgality. She was also educated on potential side effects and expectations of treatment. The patient is advised to use a wedge pillow to improve sleep quality and potentially reduce headache symptoms. -Start a trial of Emgality -Wedge pillow -Follow-up in 3 months or sooner if needed Medications: New galcanezumab-gnlm (Emgality Pen) Loading dose 240 mg (2 mL) subcut ONCE 2 mL 0RF Migraine galcanezumab-gnlm (Emgality Pen) 120 mg subcut QMONTH 1 mL 4RF migraine Discontinued rimegepant (Nurtec ODT) Discontinued Reason: Doctor's Order 75 mg PO Q OTHER DAY 16 tabs 1RF Coding Level of Care Code Est Pt Level 4 (04322) Diagnoses Chronic migraine without aura without status migrainosus, not intractable G43.956
[2025-05-18 09:08] VITALS: BP 134/70; PULSE 82; RESP 16; O2SAT 98; BMI 39.6
== END 2025-05-18 09:43 | disposition home or self-care (01) ==
LOC: HO.HSM 08:58
PROVIDERS: PCP Internal Medicine; Visit Provider Nurse Practitioner
DX: G43.709 Chronic migraine without aura, not intractable, without status migrainosus (principal)
CPT/HCPCS: 99214

== ENCOUNTER 2025-06-01 08:43 | Outpatient (REF) | payer OTHER, SELFPAY ==
[2025-06-01 09:10] LABS: MANUAL DIFF FLAG NO
[2025-06-01 09:45] LABS: Hematocrit 33.9 % (37.0-47.0); Hemoglobin 10.6 g/dl (12.0-16.0); Imm Gran Abs Auto 0.03 X10*3/uL (0.00-0.03); Imm Gran Pct Auto 0.4 % (0.0-0.4); Lymphocytes Absolute Auto 2.5 X10*3/uL (1.2-4.9); Mean Corpuscular HGB Conc 31.3 g/dl (31.0-35.0); Mean Corpuscular Hemoglobin 21.7 pg (27.0-33.0); Mean Corpuscular Volume 69.5 fL (80.0-98.0); NRBC Abs Auto 0.000 X10*3/uL (0.0-0.012); NRBC Pct Auto 0.0 /100WBC (0.0-0.2); Platelet Count 183 X10*3/uL (160-400); Red Blood Count 4.88 X10*6/uL (4.20-5.50); White Blood Count 7.4 X10*3/uL (4.8-10.8)
--- OUTSIDE RECORDS SUMMARY | 2025-06-01 09:52 | XMS_ITS | Encounter Summary ---
Author Organization [facility] Address [address] [place] [address] [address] [place] [address] Phone Care Team Providers Care Vat Packer Name Role Phone Deena Workman MD Primary Care Provider Encounter Details Date Type Department Care Team (Late st Contact Info) Description 05/29/[address] [facility] Cardiac C D Stripper [address] [facility], Floor 9, [address] [place] [phone] Social History Tobacco Use Types Packs/Day Years [...] [facility] [place] [facility] [address] [facility], 2nd Floor, [address] [place] [address] Nick Barnard MD [address] [place] [address] [email or web address] documented as of this encounter Visit Diagnoses Not on filedocumented in this encounter Care Teams Vat Packer Relationship Specialty Start Date End Date Deena Workman MD [address] [place] [address] [place] [phone] PCP - General Internal Medicine 04/11/23 documented as of this encounter Additional Source Comments The information contained in this document represents components of the legal health record. It is not the complete legal health record.[facility]
--- OUTSIDE RECORDS SUMMARY | 2025-06-01 09:52 | XMS_ITS | Encounter Summary ---
Author Organization [facility] Address [address] [place] [address] [place] [address] Phone Care Team Providers Care Superintendent Schools Name Role Phone Deena Workman MD Primary Care Provider Encounter Details Date Type Department Care Team (Late st Contact Info) Description 04/25/2023 Procedure Pass [facility] CT, Carlos [address] [facility], 2nd Floor, [address] [place] [address] Social History Tobacco Use Types Packs/Day Years [...] Info) Description 08/03/2025 9:00 AM EST Telemedicine [facility] Pulmonary Hypertension Clinic [address] [facility], 2nd Floor, [address] [place] [address] Nick Barnard MD [address] [place] [address] [email or web address] documented as of this encounter Visit Diagnoses Not on filedocumented in this encounter Care Teams Superintendent Schools Relationship Specialty Start Date End Date Deena Workman MD [address] [place] [address] [place] [phone] PCP - General Internal Medicine 04/11/23 documented as of this encounter Additional Source Comments The information contained in this document represents components of the legal health record. It is not the complete legal health record.[facility]
--- OUTSIDE RECORDS SUMMARY | 2025-06-01 09:52 | XMS_ITS | Encounter Summary ---
Author Organization [facility] Address [address] [place] [address] [address] [place] [address] Phone Care Team Providers Care Electrical Maintenance Worker Name Role Phone Deena Workman MD Primary Care Provider Encounter Details Date Type Department Care Team (Late st Contact Info) Description 08/04/2023 Procedure Pass [facility] Cardiac Manager Wellness [address] [facility], Floor 9, [address] [place] [address] Social History Tobacco Use Types [...] 08/04/2023 6:37 PM Yolis Mann RN * [place] Suicide Severity Rating Scale (Screener/Recent Self-Report) Question [...] Description 08/03/2025 9:00 AM EST Telemedicine [facility] Clinic [address] [place] [address], 2nd Floor, [address] [place] [address] Nick Barnard MD [address] [place] [address] [email or web address] documented as of this encounter Visit Diagnoses Not on filedocumented in this encounter Care Teams Electrical Maintenance Worker Relationship Specialty Start Date End Date Deena Workman MD [address] [place] [address] [place] [address] PCP - General Internal Medicine 04/11/23 documented as of this encounter Additional Source Comments The information contained in this document represents components of the legal health record. It is not the complete legal health record.[facility]
--- OUTSIDE RECORDS SUMMARY | 2025-06-01 09:52 | XMS_ITS | Encounter Summary ---
Author Organization [facility] Address [address] [place] [address] [address] [place] [address] Phone Care Team Providers Care Line Up Examiner Name Role Phone Deena Workman MD Primary Care Provider Encounter Details Date Type Department Care Team (Late st Contact Info) Description 08/11/2023 Procedure Pass [facility] Cardiac Gravel Inspector [address] [facility], Floor 9, [address] [place] [address] Social History Tobacco Use Types [...] 10:00 PM EST Ab Hyman RN * [place] Suicide Severity Rating Scale (Screener/Recent Self-Report) Question [...] Description 08/03/2025 9:00 AM EST Telemedicine [facility] [address] [place] [address], 2nd Floor, [address] [place] [address] Nick Barnard MD [address] [place], [place] [id number] [place] [address] [email or web address] documented as of this encounter Visit Diagnoses Not on filedocumented in this encounter Care Teams Line Up Examiner Relationship Specialty Start Date End Date Deena Workman MD [address] [place] [address] [place] [address] PCP - General Internal Medicine 04/11/23 documented as of this encounter Additional Source Comments The information contained in this document represents components of the legal health record. It is not the complete legal health record.[facility]
--- OUTSIDE RECORDS SUMMARY | 2025-06-01 09:52 | XMS_ITS | Encounter Summary ---
Author Organization [facility] Address [address] [place] [address] [address] [place] [address] Phone Care Team Providers Care Pick Up Truck Driver Name Role Phone Deena Workman MD Primary Care Provider Reason for Referral * Outpatient Procedure - Closed Specialty Diagnoses / Procedures Referred By Contac t Referred To Contact Radiology Diagnoses Dyspnea, unspecified Pulmonary embolism Procedures NM Lung Perfusion Imaging NM Lung Ventilation and Perfusion Imaging NM Lung Perfusion and Ventilation Differential Quantification NM Lung Perfusion Imaging NM Lung Ventilation and Perfusion Imaging OR PULMONARY VENTILATION & PERFUSION IMAGING OR QUANT DIFF PULM PRFUSION & VENTLAJ W/WO IMAGING Nick Barnard MD Phone: tel: fax: mailto:[email or web address] Referral ID Status Reason Start Date Expiration Date Visits Re quested Visits Authorized [id number] Closed 08/14/2023 1 1 Encounter Details Date Type Department Care Team (Late st Contact Info) Description 10/13/2023 Ancillary Orders [facility] [address] [facility], 2nd Floor, [address] [place] [address] Nick Barnard MD [address] [place] [address] [address] [place] [address] ROBERTO@ [email or web address] Dyspnea, unspecified (Primary Dx); Pulmonary embolism [...] Info) Description 08/03/2025 9:00 AM EST Telemedicine [facility] [address] [place] [address], 2nd Floor, [address] [place] [address] Nick Barnard MD [address] [place], [place] [phone] [place] [address] [email or web address] documented as of this encounter Results * [...] infarction documented in this encounter Care Teams Pick Up Truck Driver Relationship Specialty Start Date End Date Deena Workman MD [address] [place] [address] [place] [address] PCP - General Internal Medicine 04/11/23 documented as of this encounter Additional Source Comments The information contained in this document represents components of the legal health record. It is not the complete legal health record.[facility]
--- OUTSIDE RECORDS SUMMARY | 2025-06-01 09:52 | XMS_ITS | Clinical Summary ---
Author Organization [facility] Address [address] [place] [address] Phone Care Team Providers Care Marine Diver Name Role Phone Deena Workman MD Primary Care Provider Allergies Active Allergy Reactions Criticality Noted Date Comments Amitriptyline Hcl Other (See Comments) 08/01/20 23 [place] drugged Dapagliflozin 05/08/2023 Erythromycin 05/08/2023 Liraglutide 05/08/2023 [...] Active ferrous sulfate 324 mg (65 mg craig iron) TbEC Take 324 mg by mouth [...] 04/11/2025 Ancillary Orders [facility] [address] [place] [address] Nick Barnard MD 04/11/2025 Ancillary Orders [facility] [address] [place] [address] Nick Barnard MD 04/08/2025 Ancillary Orders [facility] [address] [place] [address] Nick Barnard MD 03/22/2025 - 03/22/2025 11:59 PM EDT Hospital Encounter [facility] [address] [place] [address] Nick Barnard MD Discharge Disposition: Home or Self Care 03/03/2025 - 03/03/2025 11:59 PM EDT Hospital Encounter [facility] [address] [place] [address] Nick Barnard MD Discharge Disposition: Home or Self Care 03/02/2025 - 03/02/2025 11:59 PM EDT Hospital Encounter [facility] [address] [place] [address] Nick Barnard MD Discharge Disposition: Home or [...] Info) Description 08/03/2025 9:00 AM EST Telemedicine [facility] Pulmonary Hypertension Clinic [address] [place] [address], 2nd Floor, [address] [place] [address] Nick Barnard MD [address] [place] [address] [address] [place] [address] [email or web address] Health Maintenance Due Date Last Done Comments [...] (No Interpretation) (03/22/2025 12:00 AM EDT) Narrative [facility] IMG INTERFACES - 04/08/2025 2:27 PM EDT This study is for PACS storage only and not for interpretation. Nick Barnard MD IMG OUTSIDE IMAGING W/OUT INTERPRETATION Final Result Performing Organization Address City/[facility] Co de Phone Number [facility] IMG INTERFACES * Outside Imaging Report Only (03/17/2025) us Scanning Interface Provider IMG XR CHEST Alicia l Result * NM Lung Outside (No Interpretation) (03/03/2025 12:00 AM EDT) Narrative [facility] IMG INTERFACES - 04/11/2025 12:02 PM EDT This study is for PACS storage only and not for interpretation. Nick Barnard MD IMG OUTSIDE IMAGING W/OUT INTERPRETATION Final Result [facility] IMG INTERFACES * XR Chest Outside (No Interpretation) (03/02/2025 12:00 AM EDT) Narrative [facility] IMG INTERFACES - 04/11/2025 12:02 PM EDT This study is for PACS storage only and not for interpretation. us Nick Barnard MD IMG OUTSIDE IMAGING W/OUT INTERPRETATION Final Result [facility] IMG INTERFACES * (ABNORMAL) Basic metabolic panel (08/12/2023 8:36 AM EST) SODIUM 136 135 - 145 mmol/L [facility] POTASSIUM 3.7 3.4 - 5.0 mmol/L [facility] CHLORIDE 98 98 - 108 mmol/L [facility] CO2 26 23 - 32 mmol/L [facility] BUN 16 8 - 25 mg/dL [facility] CREATININE 1.43 0.60 - 1.50 mg/dL [facility] GLUCOSE 193(H) 70 - 110 mg/dL [facility] CALCIUM 8.6 8.5 - 10.5 mg/dL [facility] EGFR 45(L) >59 mL/min/1. 73m2 [facility] Comment:Estimated glomerular filtration rate calculated using the CKD-EPI refit equation. ANION GAP 12 3 - 17 mmol/L [facility] Blood 08/12/2023 8:36 AM EST 08/12/2023 8:53 AM EST us Haydee Fajardo PUBLICATION DESIGNER LAB BLOOD ORDERAB LES Final Result [address] [id number] from Last 3 Months or Most Recently Relevant to Health Maintenance Insurance [facility] DSTLD O [facility] [employer] [employer] Advance Directives For more information, please contact: [phone] (9AM - 5PM [facility], Friday-Friday) * Full Code (Latest Code Status on File) Date Activated Date Inactivated Comments 08/12/2023 8:12 AM Question Answer Comments Code Status Confirmed With: Patient Code Status Communicated To: Inpatient Attending * Full Code Date Activated Date Inactivated Comments 08/04/2023 7:15 PM 08/12/2023 8:12 AM Question Answer Comments Code Status Confirmed With: Patient Care Teams Marine Diver Relationship Specialty Start Date End Date Deena Workman MD [address] [place] [address] [place] [address] PCP - General Internal Medicine 04/11/23 Additional Source Comments The information contained in this document represents components of the legal health record. It is not the complete legal health record.[facility]
--- OUTSIDE RECORDS SUMMARY | 2025-06-01 09:52 | XMS_ITS | Clinical Summary ---
Author Organization [facility] ity Address [address] [place] [address] Care Team Providers Care Process Control Engineer Name Role Phone Unavailable Primary Care [...] Documents on File Type Date Recorded Patient Editor In Chief Expl anation Health Care Decision (hx) 10/31/2020 AD MERCEDES DIRECTIVE
[2025-06-01 09:58] LABS: D Dimer High Sensitivity < 150 NG/ML
[2025-06-01 10:35] LABS: Alanine Aminotransferase 20 U/L (0-31); Albumin Level 4.3 g/dL (3.5-5.0); Alkaline Phosphatase 95 U/L (39-117); Anion Gap 14 (12-20); Aspartate Amino Transferase 25 U/L (5-31); Blood Urea Nitrogen 14 mg/dL (9-16); Calcium 8.9 mg/dL (8.4-10.2); Carbon Dioxide 30 mmol/L (22-29); Chloride 101 mmol/L (96-108); Estimated Glomerular Filt Rate 48; Potassium 3.5 mmol/L (3.3-5.1); Sodium 141 mmol/L (135-145); Total Protein 6.9 g/dL (6.5-8.0)
[2025-06-01 10:37] LABS: Hemoglobin A1C 129.1095 umol/L; Total Hemoglobin (HGBA1C) 2769.9725 umol/L
[2025-06-01 10:53] LABS: Ferritin 7 ng/mL (10-250)
[2025-06-09 07:53] LABS: Anti Nuclear Antibody Screen POSITIVE; Anti Nuclear Antibody Titer 1:80 H
== END 2025-06-01 08:44 | disposition home or self-care (01) ==
LOC: HO.LAB 08:43
PROVIDERS: Absent Provider Internal Medicine; PCP Internal Medicine; Visit Provider Hospitalist
DX: Z01.84 Encounter for antibody response examination (principal); R09.1 Pleurisy; R06.09 Other forms of dyspnea; R07.81 Pleurodynia; R09.81 Nasal congestion; D50.8 Other iron deficiency anemias; E11.9 Type 2 diabetes mellitus without complications; G47.33 Obstructive sleep apnea (adult) (pediatric); I10 Essential (primary) hypertension; I27.24 Chronic thromboembolic pulmonary hypertension; M54.50 Low back pain, unspecified
CPT/HCPCS: 36415; 80053; 82164; 82728; 82785; 83036; 85025; 85379; 85610; 85652; 86038; 86039; 86200; 86235; 99211

== ENCOUNTER 2025-06-01 09:09 | Outpatient (AMB) | payer OTHER, SELFPAY ==
--- OUTSIDE RECORDS SUMMARY | 2024-09-29 10:00 | XMS_ITS ---
Author Organization Dario Urbano III, MD Address [address] [place] [address] Care Team Providers Care Weekday Babysitter Name Role Phone Jacinta ANGULO, [facility] Primary Care Provider Dr. Dario Slater III Unavailable [phone] Allergies Allergen (clinical drug ingredient) Drug/Non Drug [...] REASON FOR VISIT Vitamin B12 deficiency, Iron deficiency anemia, Thrombophilia, History of pulmonary embolism Medications Medication SIG (Take, Route, Frequency, Duration) Notes Start Date End Date Status Sertraline HCl 100 MG 1 tablet Orally On ce a day 09/29/2024 Active Ventolin HFA 108 (90 Base) MCG/ACT Inhalation Active Rosuvastatin Calcium 10 MG 1 tablet Oral ly Once a day 09/29/2024 Active Sildenafil Citrate 20 MG Oral Active Ferrous Sulfate 325 (65 Fe) MG TAKE 1 TABLET BY MOUTH EVERY DAY FOR 30 DAYS Active Levothyroxine Sodium 50 MCG 1 tablet on an empty stomach in the morning Orally Once a day Active Warfarin Sodium (5 MG) 5 MG 1 tablet Ora lly Once a day Active metFORMIN HCl 1000 MG 2 tablet with a me al Orally twice a day Active Mounjaro 7.5 MG/0.5ML as directed Subcut aneous Once a week Active Albuterol Sulfate (2.5 MG/3ML) 0.083% 3 mL as needed Inhalation every 6 hrs Active Albuterol Sulfate HFA 108 (90 Base) MCG/ACT 1 puff as needed Inhalation every 4 hrs Active [facility] Vitamin B-12 1000 MCG TAKE 1 TABLET BY MOUTH EVERY DAY FOR 90 DAYS Active Social History Tobacco Use: Social History Observation Description Date Details (start date - stop date) Never Smoker NA - NA Tobacco Use/Smoking Question Answer Notes Patient is a nonsmoker Additional Findings: Tobacco Non-User Aggressive non-smoker Vital Signs Temperature 97.3 degrees Fahrenheit 09/29/19 25 Blood pressure systolic 118 mm Hg 09/29/19 25 Blood pressure diastolic 92 mm Hg 025 Heart Rate 96 /min 09/29/2024 Height 64 in 09/29/2024 Weight 243 lbs 09/29/2024 BMI 41.71 kg/m2 09/29/2024 Encounters Encounter Location Date Provider Diagnosis Dario Urbano III, MD [address] [place] [address] [place] [address] 09/29/2024 Dario Urbano Morbid obesity E66.0 1 ; Thrombophilia D68.59 ; Iron deficiency anemia, unspecified iron deficiency anemia type D50.9 ; Dysthymic disorder F34.1 ; 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 I recommended aggressive weight loss. I recommended she consider the weight loss surgery program at [facility]. She has lost 59 pounds since her last visit. 09/29/2024 Thrombophilia (ICD-10 - D68.59) She has a thrombophilia in view of the positive factor V Leiden. Because of multiple pulmonary emboli. I have recommended indefinite anticoagulation. She is agreeable to this. 09/29/2024 Iron deficiency anemia, unspecified iron deficiency anemia type (ICD-10 - D50.9) Comprehensive blood work is not available today. I have ordered it to be done in the near future. Her regimen was continued unchanged until that is available. 09/29/2024 Dysthymic disorder (ICD-10 - F34.1) Her depression is mild and I will recommend no change in her current medications. 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 It has not affected her life significantly. No change in her regimen as needed. 09/29/2024 Adult onset diabetes mellitus with ketoacidosis (ICD-10 - E11.10) She has been compliant with her medications, which are prescribed by primary care. 09/29/2024 Vitamin B 12 deficiency (ICD-10 - E53.8) A B12 level is not available at this time. She was continued on current therapy and the value will be followed. 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 Plan Of Treatment Medication Medication Name Sig Start Date Stop Date Notes Sertraline HCl 100 MG 1 tablet Orally Once a day Ventolin HFA 108 (90 Base) MCG/ACT Inhalation Rosuvastatin Calcium 10 MG 1 tablet Orally Once a day 09/09 Sildenafil Citrate 20 MG Oral Ferrous Sulfate 325 (65 Fe) MG TAKE 1 TA BLET BY MOUTH EVERY DAY FOR 30 DAYS Levothyroxine Sodium 50 MCG 1 tablet on an empty stomach in the morning Orally Once a day Warfarin Sodium (5 MG) 5 MG 1 tablet Orally Once a day metFORMIN HCl 1000 MG 2 tablet with a me al Orally twice a day Mounjaro 7.5 MG/0.5ML as directed Subcut aneous Once a week Albuterol Sulfate (2.5 MG/3M L) 0.083% 3 mL as needed Inhalation every 6 hrs Albuterol Sulfate HFA 108 (9 0 Base) MCG/ACT 1 puff as needed Inhalation every 4 hrs CVS Vitamin B-12 1000 MCG TAKE 1 TABLET BY MOUTH EVERY DAY FOR 90 DAYS Next Appt Details Follow Up: 2 Weeks, Reason: Telehealth Provider Name:Dario Reyesrne , 06/13/2025 09:30:00 AM, [address] [place] [address] , [facility] [place], [place], [place], [id number], Progress Notes * Domonique SANTILLANOB:1975 (49 yo F)Acc No.[id number]:09/29/2024 Progress Notes Patient: Domonique FLOWERS Provider: Elena Urbano MD :1975 A ge:49 Y S ex:Female Date:09/29/2024 Address:[address] [place], [place] [id number] Pcp:Deena Workman MD Subjective: * Chief Complaints: * V itamin B12 deficiencyIron deficiency anemiaThrombophiliaHistory of pulmonary embolism * HPI: C OVID-19 Screening: She returns for routine scheduled followup. She has a history of iron deficiency anemia and vitamin B12 deficiency. She has a history of pulmonary emboli and thrombophilia. Since her last visit she has been stable. She was wearing an oxygen cannula today said at 2 L. She is on a weight loss program using weekly injections of Mounjaro.Since her visit last year. She has lost 59 pounds. She has had no side effects. She has been compliant with all of her medications. A recent blood work was reviewed. Questions H ave you had any new onset fever, chills, cough, congestion, sore throat, shortness of breath, muscle aches? N o * ROS: G eneral/Constitutional: pain o nly normal aches and pains. C hills d enies.?Fatigue a dmits. F ever d enies. E NT: Decreased hearing d enies. R espiratory: Cough d enies. C ardiovascular: Chest pain with exertion d enies. D yspnea on exertion?denies. S hortness of breath d enies. G astrointestinal: Constipation o ccasional. D ecreased appetite d enies. D iarrhea d enies. H eartburn d enies. N ausea d enies. R ectal bleeding d enies. V omiting d enies. H ematology: bruising d enies. p etechiae d enies. S wollen glands n one have been noted. G enitourinary: Frequent urination a small amount. M usculoskeletal: Muscle aches d enies. P ainful joints d enies. S ciatica d enies. W eakness d enies. S kin: Itching d enies. R preston d enies. S kin lesion(s)?denies. N eurologic: Difficulty speaking d enies. D izziness d enies.?Headache d enies. L ow back pain d enies. P sychiatric: Depressed mood d enies. * Medical History: * Surgical History: l eft foot fasciotomy 2004right hand carpatunel 2017laparoscopic cholecystectomy 2002gravida 6 left wrist carpal tunnel 04/2018tendonitis right hand lood clots in lungs angioplasty in July2023 and 08/2023 * Hospitalization/Major Diagno stic Procedure: C OVID 10/2020 * Family History: F ather: 55 yrs, COPD, myocardial infarction, diagnosed with CVD. M other: 61 yrs, COPD, chronic kidney disease, diagnosed with CVD. 3 brother(s) - healthy. 1 daughter(s) - healthy. . Her siblings are healthy and well. There is no family history of inherited cancer. * Social History: T obacco Use: T obacco Use/Smoking P atient is a n onsmoker A dditional Findings: Tobacco Non-User A ggressive non-smoker * Medications: T akingAlbuterol Sulfate HFA 108 (90 Base) MCG/ACT Aerosol Solution 1 puff as needed Inhalation every 4 hrs Albuterol Sulfate (2.5 MG/3ML) 0.083% Nebulization Solution 3 mL as needed Inhalation every 6 hrs Mounjaro 7.5 MG/0.5ML Solution Auto-injector as directed Subcutaneous Once a week metFORMIN HCl 1000 MG Tablet 2 tablet with a meal Orally twice a day Warfarin Sodium (5 MG) 5 MG Tablet 1 tablet Orally Once a day Levothyroxine Sodium 50 MCG Tablet 1 tablet on an empty stomach in the morning Orally Once a day Ferrous Sulfate 325 (65 Fe) MG Tablet TAKE 1 TABLET BY MOUTH EVERY DAY FOR 30 DAYS Sertraline HCl 100 MG Tablet 1 tablet Orally Once a day Sildenafil Citrate 20 MG Tablet Oral Rosuvastatin Calcium 10 MG Tablet 1 tablet Orally Once a day Ventolin HFA 108 (90 Base) MCG/ACT Aerosol Solution Inhalation Taking Albuterol Sulfate HFA 108 (90 Base) MCG/ACT Aerosol Solution 1 puff as needed Inhalation every 4 hrs Taking Albuterol Sulfate (2.5 MG/3ML) 0.083% Nebulization Solution 3 mL as needed Inhalation every 6 hrs Taking Mounjaro 7.5 MG/0.5ML Solution Auto-injector as directed Subcutaneous Once a week Taking metFORMIN HCl 1000 MG Tablet 2 tablet with a meal Orally twice a day Taking Warfarin Sodium (5 MG) 5 MG Tablet 1 tablet Orally Once a day Taking Levothyroxine Sodium 50 MCG Tablet 1 tablet on an empty stomach in the morning Orally Once a day Taking Ferrous Sulfate 325 (65 Fe) MG Tablet TAKE 1 TABLET BY MOUTH EVERY DAY FOR 30 DAYS Taking Sertraline HCl 100 MG Tablet 1 tablet Orally Once a day Taking Sildenafil Citrate 20 MG Tablet Oral Taking Rosuvastatin Calcium 10 MG Tablet 1 tablet Orally Once a day Taking Ventolin HFA 108 (90 Base) MCG/ACT Aerosol Solution Inhalation DiscontinuedValsartan 320 MG Tablet 1 tablet Orally Once a day Amaryl 4 MG Tablet 1 tablet with breakfast or the first main meal of the day Orally Once a day Atorvastatin Calcium 20 MG Tablet 1 tablet Orally Once a day hydroCHLOROthiazide 25 MG Tablet 1 tablet in the morning Orally Once a day Loperamide HCl 2 MG Capsule 1 capsule as needed Orally [facility]S Vitamin B-12 1000 MCG Tablet TAKE 1 TABLET BY MOUTH EVERY DAY FOR 90 DAYS Medication List reviewed and reconciled with the patientDiscontinued Valsartan 320 MG Tablet 1 tablet Orally Once a day Discontinued Amaryl 4 MG Tablet 1 tablet with breakfast or the first main meal of the day Orally Once a day Discontinued Atorvastatin Calcium 20 MG Tablet 1 tablet Orally Once a day Discontinued hydroCHLOROthiazide 25 MG Tablet 1 tablet in the morning Orally Once a day Discontinued Loperamide HCl 2 MG Capsule 1 capsule as needed Orally Discontinued CVS Vitamin B-12 1000 MCG Tablet TAKE 1 TABLET BY MOUTH EVERY DAY FOR 90 DAYS Medication List reviewed and reconciled with the patient * Allergies: F arxiga: UTIAmitriptyline HCl: DRUGGED FEELINGMetformin HCl: GI UPSETVictoza: NAUSEALisinopril: ANGIOEDEMAErythromycin: HIVESno[Allergies Verified] Objective: * Vitals: H t: 64, Wt: 243, BMI:41.71, BP: 118/92, HR: 96, Temp: 97.3, Wt-k.22. * Examination: G eneral Examination: GENERAL APPEARANCE: p fernando, well nourished, well developed, in no acute distress, calm and relaxed, morbidly obese, woman. HEAD: a traumatic, normocephalic. EYES: e js, perrla, anicteric, conjugate. EARS: n ormal. NOSE: s eptum intact. ORAL CAVITY: n ormal, unremarkable. NECK/THYROID: n o jugular venous distention, no carotid bruit, thyroid normal. LYMPH NODES: n o enlarged lymph nodes,spleen normal. SKIN: n o suspicious lesions, anicteric. HEART: n o clicks, gallops, murmurs, or rubs, regular rhythm, S1, S2 normal, no s3, or vascular bruits. LUNGS: c lear to auscultation . BREASTS: N ot examined. ABDOMEN: b owel sounds normal, no ascites, no organomegaly, no mass, morbid obesity. RECTAL EXAM: n ot examined. MUSCULOSKELETAL: e xtremities unremarkable, no clubbing, cyanosis or edema. PERIPHERAL PULSES: n ormal. NEUROLOGIC: a lert and oriented, cranial nerves 2-12 grossly intact, deep tendon reflexes 2+ symmetrical, motor strength normal upper and lower extremities, sensory exam intact. PSYCH: a lert, oriented. Assessment: * Assessment: 1. T hrombophilia - D68.59 (Primary) N otes :She has a thrombophilia in view of the positive factor V Leiden. Because of multiple pulmonary emboli. I have recommended indefinite anticoagulation. She is agreeable to this. 2 . M orbid obesity - E66.01 N otes :We discussed diet and nutrition. I recommended aggressive weight loss. I recommended she consider the weight loss surgery program at [facility]. She has lost 59 pounds since her last visit. 3 . I toñito deficiency anemia, unspecified iron deficiency anemia type - D50.9? Notes :Comprehensive blood work is not available today. I have ordered it to be done in the near future. Her regimen was continued unchanged until that is available. 4 . D ysthymic disorder - F34.1 N otes :Her depression is mild and I will recommend no change in her current medications. 5 . P ost-cholecystectomy syndrome - K91.5 N otes :This is a occasional discomfort. It has not affected her life significantly. No change in her regimen as needed. 6 . A dult onset diabetes mellitus with ketoacidosis - E11.10 N otes :She has been compliant with her medications, which are prescribed by primary care. 7 . V itamin B 12 deficiency - E53.8 N otes :A B12 level is not available at this time. She was continued on current therapy and the value will be followed. 8 . 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 Plan: * Treatment: 2. I toñito deficiency anemia, unspecified iron deficiency anemia type L AB: SED RATE (ESR) L AB: CBC WITH AUTO DIFF L AB: RETIC L AB: Ferritin 3. O thers Continue CVS Vitamin B-12 Tablet, 1000 MCG, TAKE 1 TABLET BY MOUTH EVERY DAY FOR 90 DAYS. ? * Procedure Codes: * Preventive Medicine: Counseling: C are goal follow-up plan: Counseling for abnormal BMI given Y es Above Normal BMI Follow-up D ietary management education, guidance, and counseling, Dietary needs education, Exercise promotion: strength training, Exercise promotion: stretching, Feeding regime, Giving encouragement to exercise, Lifestyle education regarding diet, Nutrition / feeding management, Nutrition therapy, Prescribed activity/exercise education, Prescribed diet education, Prescribed dietary intake, Special diet education, Weight monitoring , Intervention, Order not done: Medical or Other reason not done DM Care Plan: P atient Lifestyle Goals P atient wants to be able to manage diabetes without too much effort. T reatment Goals H bA1C < 7.0. B arriers n o barriers. S elf-Managment Goals W ork on weight loss, with a goal of losing 1 lb per week. * Follow Up: 2 Weeks (Reason: Telehealth) * Images: * Sign off status: Completed true * Provider: Elena Urbano MD Date: 09/29/2024 Generated for Satish lai/Nettie/Rishiitting on: 0 06/01/2025 10:44 AM EDT History and Physical Notes * HPI (History of Present Illness) Category Sub-Category Detail Notes COVID-19 Screening Questions Have you had any new onset fever, chills, cough, congestion, sore throat, shortness of breath, muscle aches?: No Examination Category Sub-Category Detail Notes General Examination GENERAL APPEARANCE: pleasant , well nourished, well developed, in no acute distress, calm and relaxed, morbidly obese, woman HEAD: atraumatic, normocep halic EYES: eomi, perrla, anicte amol, conjugate EARS: normal NOSE: septum intact NECK/THYROID: no jugular venous di stention, no carotid bruit, thyroid normal HEART: no clicks, gallops, murmurs, or rubs, regular rhythm, S1, S2 normal, no s3, or vascular bruits LUNGS: clear to auscultatio n ABDOMEN: bowel sounds normal, no ascites, no organomegaly, no mass, morbid obesity NEUROLOGIC: alert and oriented, cranial nerves 2-12 grossly intact, deep tendon reflexes 2+ symmetrical, motor strength normal upper and lower extremities, sensory exam intact SKIN: no suspicious lesion s, anicteric PERIPHERAL PULSES: normal BREASTS: Not examined MUSCULOSKELETAL: extremities unremark able, no clubbing, cyanosis or edema LYMPH NODES: no enlarged lymph no hugo,spleen normal RECTAL EXAM: not examined PSYCH: alert, oriented ORAL CAVITY: normal, unremarkable
--- OUTSIDE RECORDS SUMMARY | 2024-10-13 06:45 | XMS_ITS ---
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 Dario Slater III Unavailable Allergies Allergen (clinical drug ingredient) Drug/Non Drug [...] FOR VISIT Vitamin B12 deficiency, Iron deficiency Medications Medication SIG (Take, Route, Frequency, Duration) Notes Start Date End Date Status Warfarin Sodium (5 MG) 5 MG 1 tablet Ora lly Once a day Active Levothyroxine Sodium 50 MCG 1 tablet on an empty stomach in the morning Orally Once a day Active Ferrous Sulfate 325 (65 Fe) MG TAKE 1 TABLET BY MOUTH EVERY DAY FOR 30 DAYS Active Sertraline HCl 100 MG 1 tablet Orally On a day 09/29/2024 Active Sildenafil Citrate 20 MG Oral Active [facility] Vitamin B-12 1000 MCG TAKE 1 TABLET BY MOUTH EVERY DAY FOR 90 DAYS Active Albuterol Sulfate HFA 108 (90 Base) MCG/ACT 1 puff as needed Inhalation every 4 hrs Active Albuterol Sulfate (2.5 MG/3ML) 0.083% 3 mL as needed Inhalation every 6 hrs Active Mounjaro 7.5 MG/0.5ML as directed Subcut aneous Once a week Active metFORMIN HCl 1000 MG 2 tablet with a me al Orally twice a day Active Rosuvastatin Calcium 10 MG 1 tablet Oral ly Once a day 09/29/2024 Active Ventolin HFA 108 (90 Base) MCG/ACT Inhalation Active Social History Tobacco Use: Social History Observation Description Date Details (start date - stop date) Never Smoker NA - NA Tobacco Use/Smoking Question Answer Notes Patient is a nonsmoker Additional Findings: Tobacco Non-User Aggressive non-smoker Vital Signs Height 64 in 10/13/2024 Weight 243 lbs 10/13/2024 BMI 41.71 kg/m2 10/13/2024 Encounters Encounter Location Date Provider Diagnosis Dario Urbano III, MD [address] [place] [address] [place] [address] 10/13/2024 Dario Urbano Morbid obesity E66.0 1 ; Iron deficiency anemia, unspecified iron deficiency anemia type D50.9 ; Acquired hypothyroidism E03.9 ; Thrombophilia D68.59 ; 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 I recommended aggressive weight loss. I recommended she consider the weight loss surgery program at [facility]. She has lost 59 pounds since her last visit. 10/13/2024 Iron deficiency anemia, unspecified iron deficiency anemia type (ICD-10 - D50.9) Her hematocrit has increased to 37.9 but the mean cell volume has decreased from 76.2 down to 69.8. Reticulocyte count is normal. Her platelets are normal at 244 and the white blood cell count is normal at 9.3. Her ferritin is 18. She will continue on vitamin B12 and on the iron. These values will be repeated in the near future. An explanation will be sought. 10/13/2024 Acquired hypothyroidism (ICD-10 - E03.9) She has been continued on her current dose of levothyroxine without change. 10/13/2024 Thrombophilia (ICD-1 0 - D68.59) She has had no further blood clots or emboli. No change in her regimen was made. 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 It has not affected her life significantly. No change in her regimen as needed. 10/13/2024 Dysthymic disorder (ICD-10 - F34.1) Her depression is mild and I will recommend no change in her current medications. 10/13/2024 Vitamin B 12 deficiency (ICD-10 - E53.8) A B12 level is not available at this time. She was continued on current therapy and the value will be followed. Plan Of Treatment Medication Medication Name Sig Start Date Stop Date Notes Warfarin Sodium (5 MG) 5 MG 1 tablet Orally Once a day Levothyroxine Sodium 50 MCG 1 tablet on an empty stomach in the morning Orally Once a day Ferrous Sulfate 325 (65 Fe) MG TAKE 1 TA BLET BY MOUTH EVERY DAY FOR 30 DAYS Sertraline HCl 100 MG 1 tablet Orally Once a day Sildenafil Citrate 20 MG Oral [facility] Vitamin B-12 1000 MCG TAKE 1 TABLET BY MOUTH EVERY DAY FOR 90 DAYS Albuterol Sulfate HFA 108 (9 0 Base) MCG/ACT 1 puff as needed Inhalation every 4 hrs Albuterol Sulfate (2.5 MG/3M L) 0.083% 3 mL as needed Inhalation every 6 hrs Mounjaro 7.5 MG/0.5ML as directed Subcut aneous Once a week metFORMIN HCl 1000 MG 2 tablet with a me al Orally twice a day Rosuvastatin Calcium 10 MG 1 tablet Orally Once a day 09/09 Ventolin HFA 108 (90 Base) MCG/ACT Inhalation Next Appt Details Follow Up: 4 Months, February, pete: ov Provider Name:Dario Urbano , 06/13/2025 09:30:00 AM, [address] [place] [address] DR, [place] [address], [place], [address], Progress Notes * Domonique SANTILLAN SDOB:1975 (49 yo F)Acc No.[id number]:10/13/2024 Patient: Domonique FLOWERS Provider: Elena Urbano MD :1975 A ge:49 Y S ex:Female Date:10/13/2024 Address:[address] [id number] Pcp:Deena Workman MD Subjective: * Chief Complaints: * V itamin B12 deficiencyIron deficiency * HPI: * : Telehealth L ocation of provider rendering services: { ...} [address] [place] [address] L ocation of patient: srinivasa ddrjuve listed in demographics for today's visit P atient identification confirmed using: N theodora, T elehealth method: T elephone only. Patient not visible to care provider. C onsent: P atient verbally consented to treatment, Patient verbally consented to billing insurance company, Patient informed of any privacy concerns related to method of visit T otal time spent with patient (mins) 2 2 The patient, a 49-year-old female, has been experiencing difficulty sleeping for the past couple of nights. She reports feeling tired during the day but struggles to sleep at night. She also mentions that she is always cold, particularly her feet, which feel as if they have been in a bucket of ice. This occurs despite her attempts to keep her room at around 70 degrees Fahrenheit. She also reports fluctuations in her weight, which she attributes to bloating and gas after taking her medication, Monjuro, on Sundays. * ROS: G eneral/Constitutional: pain o nly normal aches and pains. C hills d enies.?Fatigue a dmits. F ever d enies. E NT: Decreased hearing d enies. R espiratory: Cough d enies. C ardiovascular: Chest pain with exertion d enies. D yspnea on exertion?denies. S hortness of breath d enies. G astrointestinal: Constipation d enies. D ecreased appetite d enies.?Diarrhea d enies. H eartburn d enies. N ausea d enies. R ectal bleeding?denies. V omiting d enies. H ematology: bruising d enies. p etechiae d enies. S wollen glands n one have been noted. G enitourinary: Frequent urination a t night. M usculoskeletal: Muscle aches d enies. P ainful joints d enies. S ciatica d enies. W eakness d enies. S kin: Itching d enies. R preston d enies. S kin lesion(s)?denies. N eurologic: Difficulty speaking d enies. D izziness d enies.?Headache d enies. L ow back pain d enies. P sychiatric: Depressed mood w hich is mild. * Medical History: * Surgical History: l eft foot fasciotomy 2004right hand carpatunel 2017laparoscopic cholecystectomy 2002gravida 6 left wrist carpal tunnel 04/2018tendonitis right hand lood clots in lungs angioplasty in July2023 and 08/2023No history * Hospitalization/Major Diagno stic Procedure: C OVID 10/2020No history * Family History: F ather: 55 yrs, [...] Non-User A ggressive non-smoker * Medications: T aking[facility] Vitamin B-12 1000 MCG Tablet TAKE 1 TABLET BY MOUTH EVERY DAY FOR 90 DAYS Albuterol Sulfate HFA 108 (90 Base) MCG/ACT [...] 108 (90 Base) MCG/ACT Aerosol Solution Inhalation Medication List reviewed and reconciled with the patientTaking CVS Vitamin B-12 1000 MCG Tablet TAKE 1 TABLET BY MOUTH EVERY DAY FOR 90 DAYS Taking Albuterol Sulfate HFA 108 (90 Base) [...] 108 (90 Base) MCG/ACT Aerosol Solution Inhalation Medication List reviewed and reconciled with the patient * Allergies: F arxiga: UTIAmitriptyline HCl: DRUGGED FEELINGMetformin HCl: GI UPSETVictoza: NAUSEALisinopril: ANGIOEDEMAErythromycin: HIVESno[Allergies Verified] Objective: * Vitals: H t: 64, Wt: 243, BMI:41.71, Ht-cm: 162.56, Wt-k.22. * P ast Orders: Lab:Complete Blood Count Aut o Diff * Collection Date 10/07/2024 11/16/2022 04/15/2022 Collection Time 09:15 AM 11:04 AM 07:29 AM Order Date 10/07/2024 11/16/2022 04/15/2022 White Blood Count 9.3 (Ref Range: 4.8-10.8 X10*3/uL) 10.7 (Ref Range: 4.8-10.8 X10*3/uL) 8.2 (Ref Range: 4.8-10.8 X10*3/uL) Red Blood Count 5.43 (Ref Range: 4.20-5.50 X10*6/uL) 4.50 (Ref Range: 4.20-5.50 X10*6/uL) 4.49 (Ref Range: 4.20-5.50 X10*6/uL) Hemoglobin 11.0 L (Ref Range: 12.0-16.0 g/dl) 10.7 L (Ref Range: 12.0-16.0 g/dl) 10.5 L (Ref Range: 12.0-16.0 g/dl) Hematocrit 37.9 (Ref Range: 37.0-47.0 %) 34.7 L (Ref Range: 37.0-47.0 %) 34.2 L (Ref Range: 37.0-47.0 %) Mean Corpuscular Volume 69.8 L (Ref Range: 80.0-98.0 fL) 77.1 L (Ref Range: 80.0-98.0 fL) 76.2 L (Ref Range: 80.0-98.0 fL) Mean Corpuscular Hemoglobin 20.3 L (Ref Range: 27.0-33.0 pg) 23.8 L (Ref Range: 27.0-33.0 pg) 23.4 L (Ref Range: 27.0-33.0 pg) Mean Corpuscular HGB Conc 29.0 L (Ref Range: 31.0-35.0 g/dl) 30.8 L (Ref Range: 31.0-35.0 g/dl) 30.7 L (Ref Range: 31.0-35.0 g/dl) Red Cell Distribution Width 19.0 H (Ref Range: 11.0-16.0 %) 16.4 H (Ref Range: 11.0-16.0 %) 15.7 (Ref Range: 11.0-16.0 %) Platelet Count 244 (Ref Range: 160-400 X10*3/uL) 143 L (Ref Range: 160-400 X10*3/uL) 157 L (Ref Range: 160-400 X10*3/uL) Mean Platelet Volume TNP (Ref Range: 9.4-12.3 fL) 11.9 (Ref Range: 9.4-12.3 fL) 11.6 (Ref Range: 9.4-12.3 fL) Neutrophils Percent Auto 58.5 (Ref Range: 45-73 %) 66.1 (Ref Range: 45-73 %) 51.6 (Ref Range: 45-73 %) Imm Gran Pct Auto 0.3 (Ref Range: 0.0-0.4 %) 0.5 H (Ref Range: 0.0-0.4 %) 0.2 (Ref Range: 0.0-0.4 %) Lymphocytes Percent Auto 29.9 (Ref Range: 20-40 %) 23.5 (Ref Range: 20-40 %) 36.4 (Ref Range: 20-40 %) Monocytes Percent Auto 7.5 (Ref Range: 2-11 %) 7.1 (Ref Range: 2-11 %) 8.9 (Ref Range: 2-11 %) Eosinophils Percent Auto 3.0 (Ref Range: 0-4 %) 2.1 (Ref Range: 0-4 %) 2.4 (Ref Range: 0-4 %) Basophils Percent Auto 0.8 (Ref Range: 0-2 %) 0.7 (Ref Range: 0-2 %) 0.5 (Ref Range: 0-2 %) NRBC Pct Auto 0.0 (Ref Range: 0.0-0.2 /100WBC) 0.0 (Ref Range: 0.0-0.2 /100WBC) 0.0 (Ref Range: 0.0-0.2 /100WBC) Neutrophils Absolute Auto 5.5 (Ref Range: 2.0-8.3 x10*3/uL) 7.1 (Ref Range: 2.0-8.3 x10*3/uL) 4.2 (Ref Range: 2.0-8.3 x10*3/uL) Imm Gran Abs Auto 0.03 (Ref Range: 0.00-0.03 X10*3/uL) 0.05 H (Ref Range: 0.00-0.03 X10*3/uL) 0.02 (Ref Range: 0.00-0.03 X10*3/uL) Lymphocytes Absolute Auto 2.8 (Ref Range: 1.2-4.9 X10*3/uL) 2.5 (Ref Range: 1.2-4.9 X10*3/uL) 3.0 (Ref Range: 1.2-4.9 X10*3/uL) Monocytes Absolute Auto 0.7 (Ref Range: 0.1-1.2 X10*3/uL) 0.8 (Ref Range: 0.1-1.2 X10*3/uL) 0.7 (Ref Range: 0.1-1.2 X10*3/uL) Eosinophils Absolute Auto 0.3 (Ref Range: 0.0-0.4 X10*3/uL) 0.2 (Ref Range: 0.0-0.4 X10*3/uL) 0.2 (Ref Range: 0.0-0.4 X10*3/uL) Basophils Absolute Auto 0.1 (Ref Range: 0.0-0.2 X10*3/uL) 0.1 (Ref Range: 0.0-0.2 X10*3/uL) 0.0 (Ref Range: 0.0-0.2 X10*3/uL) NRBC Abs Auto 0.000 (Ref Range: 0.0-0.012 X10*3/uL) 0.000 (Ref Range: 0.0-0.012 X10*3/uL) 0.000 (Ref Range: 0.0-0.012 X10*3/uL) * Lab:Ferritin * Collection Date 10/07/2024 11/16/2022 04/15/2022 Collection Time 09:15 AM 11:04 AM 07:29 AM Order Date 10/07/2024 11/16/2022 04/15/2022 Ferritin 18 (Ref Range: 10-250 ng/mL) 22 (Ref Range: 10-250 ng/mL) 21 (Ref Range: 10-250 ng/mL) * Lab:RETIC * Collection Date 10/07/2024 11/16/2022 Collection Time 09:15 AM 11:04 AM Order Date 10/07/2024 11/16/2022 Reticulocytes Absolute 0.058 (Ref Range: 0.026-0.095 X10*6/uL) 0.074 (Ref Range: 0.026-0.095 X10*6/uL) Immature Retic Fraction 20.0 H (Ref Range: 3.0-15.9 %) 19.8 H (Ref Range: 3.0-15.9 %) Retic HGB Equivalent 23.7 L (Ref Range: 30.0-35.0 pg) 26.6 L (Ref Range: 30.0-35.0 pg) Reticulocyte Percent 1.1 (Ref Range: 0.5-1.8 %) 1.6 (Ref Range: 0.5-1.8 %) ???Lab:Erythrocyte Sedimentation Rate (Order Date - 10/07/2024) (Collection Date & Time - 10/07/2024 09:15 AM)?ValueReference Range?Erythrocyte Sedimentation [id number] - MM/HR Assessment: * Assessment: 1. I toñito deficiency anemia, unspecified iron deficiency anemia type - D50.9 (Primary) ? N otes :Her hematocrit has increased to 37.9 but the mean cell volume has decreased from 76.2 down to 69.8. Reticulocyte count is normal. Her platelets are normal at 244 and the white blood cell count is normal at 9.3. Her ferritin is 18. She will continue on vitamin B12 and on the iron. These values will be repeated in the near future. An explanation will be sought. 2 . M orbid obesity - E66.01 N otes :Her body mass index is now 41.We discussed diet and nutrition. I recommended aggressive weight loss. I recommended she consider the weight loss surgery program at [facility]. She has lost 59 pounds since her last visit. 3 . A cquired hypothyroidism - E03.9 N otes :She has been continued on her current dose of levothyroxine without change. 4 . T hrombophilia - D68.59 N otes :She has had no further blood clots or emboli. No change in her regimen was made. 5 . P ost-cholecystectomy syndrome - K91.5 N otes :This is a occasional discomfort. It has not affected her life significantly. No change in her regimen as needed. 6 . D ysthymic disorder - F34.1 N otes :Her depression is mild and I will recommend no change in her current medications. 7 . V itamin B 12 deficiency - E53.8 N otes :A B12 level is not available at this time. She was continued on current therapy and the value will be followed. Plan: * Treatment: 2. M orbid obesity Continue Albuterol Sulfate HFA Aerosol Solution, 108 (90 Base) MCG/ACT, 1 puff as needed, Inhalation, every 4 hrs; C ontinue Albuterol Sulfate Nebulization Solution, (2.5 MG/3ML) 0.083%, 3 mL as needed, Inhalation, every 6 hrs; C ontinue Mounjaro Solution Auto-injector, 7.5 MG/0.5ML, as directed, Subcutaneous, Once a week; C ontinue metFORMIN HCl Tablet, 1000 MG, 2 tablet with a meal, Orally, twice a day; C ontinue Warfarin Sodium (5 MG) Tablet, 5 MG, 1 tablet, Orally, Once a day; C ontinue Levothyroxine Sodium Tablet, 50 MCG, 1 tablet on an empty stomach in the morning, Orally, Once a day; C ontinue Ferrous Sulfate Tablet, 325 (65 Fe) MG, TAKE 1 TABLET BY MOUTH EVERY DAY FOR 30 DAYS; C ontinue Sertraline HCl Tablet, 100 MG, 1 tablet, Orally, Once a day; C ontinue Sildenafil Citrate Tablet, 20 MG, Oral; C ontinue Rosuvastatin Calcium Tablet, 10 MG, 1 tablet, Orally, Once a day; C ontinue Ventolin HFA Aerosol Solution, 108 (90 Base) MCG/ACT, Inhalation. L AB: PROFILE, FASTING (COMPREHENSIVE METABOLIC) L AB: TSH (THYROID STIMULATING HORMONE) L AB: CBC WITH AUTO DIFF L AB: RETIC L AB: Ferritin L AB: Lipid Panel L AB: Free T4 (Free Thyroxine) 3. A cquired hypothyroidism L AB: PROFILE, FASTING (COMPREHENSIVE METABOLIC) L AB: TSH (THYROID STIMULATING HORMONE) L AB: CBC WITH AUTO DIFF L AB: RETIC L AB: Ferritin L AB: Lipid Panel L AB: Free T4 (Free Thyroxine) 4. T hrombophilia L AB: PROFILE, FASTING (COMPREHENSIVE METABOLIC) L AB: TSH (THYROID STIMULATING HORMONE) L AB: CBC WITH AUTO DIFF L AB: RETIC L AB: Ferritin L AB: Lipid Panel L AB: Free T4 (Free Thyroxine) 5. O thers Continue [facility] Vitamin B-12 Tablet, [...] without too much effort. T reatment Goals B lood Sugars less than < 115, HbA1C < 7.0. B arriers n o barriers. S elf-Managment Goals W ork on weight loss, with a goal of losing 1 lb per week. * Follow Up: 4 Months, February (Reason: ov) * Images: * Sign off status: Completed true * Provider: Elena Urbano MD Date: 0 10/13/2024 Generated for Satish lai/Nettie/Rishiitting on: 0 06/01/2025 10:45 AM EDT History and Physical Notes * HPI (History of Present Illness) Category Sub-Category Detail Notes Telehealth Location of [facility] rendering services:: {...} [address] [place] [id number] Location of patient:: address listed in demographics for today's visit Patient identification confirmed using:: Name, Telehealth method:: Telephone only. Debora ent not visible to care provider. Consent:: Patient verbally c onsented to treatment, Patient verbally consented to billing insurance company, Patient informed of any privacy concerns related to method of visit Total time spent with patient (mins): 22
--- OUTSIDE RECORDS SUMMARY | 2025-01-17 07:30 | XMS_ITS ---
Author Organization [facility] Address [address] [place] [address] Care Team Providers Care Ocean Fishing Guide Name Role Phone Deena Workman Primary Care Provider Unavailab Dario Holbrook [phone] REASON FOR VISIT screening Encounters Encounter Location Date Provider Diagnosis [facility] Out[facility] [address], [place] [id number] 01/17/2025 Dario Ramsey Colon cancer scree ana paula Z12.11 ; Other specified diseases of anus and rectum K62.89 ; Diverticulosis of large intestine without perforation or abscess without bleeding K57.30 and Other hemorrhoids K64.8 Assessments Encounter Date Diagnosis (ICD Code) Assessment Notes Treatment Notes Treatment Clinical Notes Section Notes 01/17/2025 Colon cancer screening (ICD-10 - Z12.11) 01/17/2025 Other specified diseases of anus and rectum (ICD-10 - K62.89) 01/17/2025 Diverticulosis of large intestine without perforation or abscess without bleeding (ICD-10 - K57.30) 01/17/2025 Other hemorrhoids (ICD-10 - K64.8) Plan Of Treatment No Information Progress Notes * KASANDRA SANTILLANDOB:1975 ([age] yo F)Acc No.[id number]:01/17/2025 COLON WITH MAC Patient: KASANDRA FLOWERS Provider: Elena Ramsey MD :1975 A ge:49 Y S ex:Female Date:01/17/2025 Address:[address] [place] [address] [place], [place] Pcp:Deena Workman Subjective: * Chief Complaints: * 1 . Screening. * Medical History: Objective: * Vitals: Assessment: * Assessment: 1. C olon cancer screening - Z12.11 (Primary) 2 . O ther specified diseases of anus and rectum - K62.89 3 . D iverticulosis of large intestine without perforation or abscess without bleeding - K57.30 4 . O ther hemorrhoids - K64.8 Plan: * Treatment: * Procedure Codes: 4 5380 COLONOSCOPY AND BIOPSY, Modifiers: PT * * The named appointment provid er may or may not be the originator of this progress note, and it is not deemed complete until electronically signed by the appointment provider. Sign off status: Pending * Provider: Elena Ramsey MD Date: 0 01/17/2025 Generated for Satish lai/Nettie/Rishiitting on: 0 06/01/2025 10:44 AM EDT
--- OUTSIDE RECORDS SUMMARY | 2025-02-11 06:15 | XMS_ITS ---
Author Organization Dario Urbano III, MD Address [address] [place] [address] Care Team Providers Care Cardiology Technologist Name Role Phone Jacinta ANGULO, [facility] Primary Care Provider Dr. Dario Slater [...] FEELING Drug Allergy Active REASON FOR VISIT Iron deficiency anemia, History of pulmonary embolism, Thrombophilia, B12 deficiency Medications Medication SIG (Take, Route, Frequency, Duration) Notes Start Date End Date Status Sildenafil Citrate 20 MG Oral Active Albuterol Sulfate HFA 108 (90 Base) MCG/ACT 1 puff as needed Inhalation every 4 hrs Active Rosuvastatin Calcium 10 MG 1 tablet Oral ly Once a day 09/29/2024 [address] [facility] Vitamin B-12 1000 MCG TAKE 1 TABLET BY MOUTH EVERY DAY FOR 90 DAYS Active Ventolin HFA 108 (90 Base) MCG/ACT Inhalation Active Sertraline HCl 100 MG 1 tablet Orally On ce a day 09/29/2024 Active Levothyroxine Sodium 50 MCG 1 tablet on an empty stomach in the morning Orally Once a day Active Ferrous Sulfate 325 (65 Fe) MG TAKE 1 TABLET BY MOUTH EVERY DAY FOR 30 DAYS Active Divalproex Sodium ER 250 MG Oral Active metFORMIN HCl 1000 MG 2 tablet with a me al Orally twice a day Active Warfarin Sodium (5 MG) 5 MG 1 tablet Ora lly Once a day Active Albuterol Sulfate (2.5 MG/3ML) 0.083% 3 mL as needed Inhalation every 6 hrs Active Mounjaro 7.5 MG/0.5ML as directed Subcut aneous Once a week Active Social History Tobacco Use: Social History Observation Description Date Details (start date - stop date) Never Smoker NA - NA Tobacco Use/Smoking Question Answer Notes Patient is a nonsmoker Additional Findings: Tobacco Non-User Aggressive non-smoker Vital Signs Temperature 97.8 degrees Fahrenheit 02/12/20 25 Blood pressure systolic 139 mm Hg 02/12/20 25 Blood pressure diastolic 70 mm Hg 025 Heart Rate 82 /min 02/11/2025 Height 64 in 02/11/2025 Weight 243 lbs 02/11/2025 BMI 41.71 kg/m2 02/11/2025 Encounters Encounter Location Date Provider Diagnosis Dario Urbano III, MD [address] [place] [address] [place] [address] 02/11/2025 Dario Urbano Morbid obesity E66.0 1 ; Iron deficiency anemia, unspecified iron deficiency anemia type D50.9 ; 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 I recommended aggressive weight loss. I recommended she consider the weight loss surgery program at [facility]. She has lost 59 pounds since her last visit. 02/11/2025 Iron deficiency anemia, unspecified iron deficiency anemia type (ICD-10 - D50.9) Her ferritin has fallen from 18 to 7. I stressed with her that she had to take the ferrous sulfate every day. She agreed to do so. Repeat blood work has been ordered. 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 It has not affected her life significantly. No change in her regimen as needed. 02/11/2025 Dysthymic disorder (ICD-10 - F34.1) Her depression is mild and I will recommend no change in her current medications. 02/11/2025 Adult onset diabetes mellitus with ketoacidosis (ICD-10 - E11.10) She has been compliant with her medications, which are prescribed by primary care. 02/11/2025 Thrombophilia (ICD-10 - D68.59) She has had no further blood clots or emboli. No change in her regimen was made. 02/11/2025 Pulmonary embolism, unspecified chronicity, unspecified pulmonary embolism [...] Name Sig Start Date Stop Date Notes Sildenafil Citrate 20 MG Oral Albuterol Sulfate HFA 108 (9 0 Base) MCG/ACT 1 puff as needed Inhalation every 4 hrs Rosuvastatin Calcium 10 MG 1 tablet Orally Once a day 09/09 [facility] Vitamin B-12 1000 MCG TAKE 1 TABLET BY MOUTH EVERY DAY FOR 90 DAYS Ventolin HFA 108 (90 Base) MCG/ACT Inhalation Sertraline HCl 100 MG 1 tablet Orally Once a day Levothyroxine Sodium 50 MCG 1 tablet on an empty stomach in the morning Orally Once a day Ferrous Sulfate 325 (65 Fe) MG TAKE 1 TA BLET BY MOUTH EVERY DAY FOR 30 DAYS Divalproex Sodium ER 250 MG Oral metFORMIN HCl 1000 MG 2 tablet with a me al Orally twice a day Warfarin Sodium (5 MG) 5 MG 1 tablet Orally Once a day Albuterol Sulfate (2.5 MG/3M L) 0.083% 3 mL as needed Inhalation every 6 hrs Mounjaro 7.5 MG/0.5ML as directed Subcut aneous Once a week Next Appt Details Follow Up: 4 Months, Reason: OV Provider Name:Dario Urbano , 06/13/2025 09:30:00 AM, [address] [place] [address] [place], [place], [address], Progress Notes * Domonique SANTILLAN SDOB:1975 (49 yo F)Acc No.[id number]:02/11/2025 Progress Notes Patient: Domonique FLOWERS S Provider: Elena Urbano MD :1975 A ge:49 Y S ex:Female Date:02/11/2025 Address:[address] [place], [place] [id number] Pcp:Deena Workman MD Subjective: * Chief Complaints: * I toñito deficiency anemiaHistory of pulmonary yxskgfkuFvmwkgtarrcozZ55 deficiency * HPI: C OVID-19 Screening: S he returns for management of her hematological abnormalities. She continues on her ferrous sulfate and levothyroxin. She is now on Mounjaro. Her diabetes has been well controlled. Her blood work was reviewed in detail. She has no new complaints. She has had no fetus or arterial thromboembolism.Her neurologist has given her a new medication which she is taking but she is unaware of the name. Questions H ave you had any new [...] have been noted. G enitourinary: Frequent urination d enies. M usculoskeletal: Muscle aches d enies. P [...] left wrist carpal tunnel 04/2018tendonitis right hand ulmonary emboli, angioplasty in July2023 and 08/2023No history * [...] as needed Inhalation every 6 hrs Mounjaro 12.5 MG/0.5ML Solution Auto- injector as directed Subcutaneous Once a week metFORMIN HCl 500 MG Tablet 1 tablet with a meal Orally twice a [...] 108 (90 Base) MCG/ACT Aerosol Solution Inhalation Divalproex Sodium ER 250 MG Tablet Extended Release 24 Hour Oral Taking Albuterol Sulfate HFA 108 (90 Base) MCG/ACT Aerosol Solution 1 puff as needed Inhalation every 4 hrs Taking Albuterol Sulfate (2.5 MG/3ML) 0.083% Nebulization Solution 3 mL as needed Inhalation every 6 hrs Taking Mounjaro 12.5 MG/0.5ML Solution Auto-injector as directed Subcutaneous Once a week Taking metFORMIN HCl 500 MG Tablet 1 tablet with a meal Orally twice a [...] (90 Base) MCG/ACT Aerosol Solution Inhalation Taking Divalproex Sodium ER 250 MG Tablet Extended Release 24 Hour Oral [facility] Vitamin B-12 1000 MCG Tablet TAKE 1 TABLET BY MOUTH EVERY DAY FOR 90 DAYS Medication List reviewed and reconciled with the patientDiscontinued [facility] Vitamin B-12 1000 MCG Tablet TAKE 1 TABLET BY MOUTH EVERY DAY FOR 90 DAYS Medication List reviewed and reconciled with the patient * Allergies: F arxiga: UTIAmitriptyline HCl: DRUGGED FEELINGMetformin HCl: GI UPSETVictoza: NAUSEALisinopril: ANGIOEDEMAErythromycin: HIVESno[Allergies Verified] Objective: * Vitals: H t: 64, Wt: 243, BMI:41.71, BP: 139/70, HR: 82, Temp: 97.8, Ht-cm: 162.56, Wt-k.22. * P ast Orders: Lab:Lipid Panel * Collection Date 02/07/2025 07/02/2021 Collection Time 03:01 PM 10:30 AM Order Date 02/07/2025 07/02/2021 Triglycerides 247 H (Ref Range: <150 mg/dL) 236 (Ref Range: mg/dL) Cholesterol 143 (Ref Range: <200 mg/dL) 130 (Ref Range: mg/dL) LDL Cholesterol Calculated 52 (Ref Range: <100 mg/dL) 51 (Ref Range: mg/dl) HDL Cholesterol 42 (Ref Range: >40 mg/dL) 32 (Ref Range: mg/dL) * Lab:Free T4 (Free Thyroxine) * Collection Date 02/07/2025 02/21/2021 11/16/2020 Collection Time 03:01 PM 04:20 PM 02:55 PM Order Date 02/07/2025 02/21/2021 11/16/2020 Free T4 (Free Thyroxine) 0.94 (Ref Range: 0.71-1.85 ng/dL) 1.00 (Ref Range: 0.71-1.85 ng/dL) 0.90 (Ref Range: 0.71-1.85 ng/dL) * Lab:Complete Blood Count Aut o Diff * Collection Date 02/07/2025 10/07/2024 11/16/2022 Collection Time 03:01 PM 09:15 AM 11:04 AM Order Date 02/07/2025 10/07/2024 11/16/2022 White Blood Count 8.2 (Ref Range: 4.8-10.8 X10*3/uL) 9.3 (Ref Range: 4.8-10.8 X10*3/uL) 10.7 (Ref Range: 4.8-10.8 X10*3/uL) Red Blood Count 4.80 (Ref Range: 4.20-5.50 X10*6/uL) 5.43 (Ref Range: 4.20-5.50 X10*6/uL) 4.50 (Ref Range: 4.20-5.50 X10*6/uL) Hemoglobin 10.4 L (Ref Range: 12.0-16.0 g/dl) 11.0 L (Ref Range: 12.0-16.0 g/dl) 10.7 L (Ref Range: 12.0-16.0 g/dl) Hematocrit 34.1 L (Ref Range: 37.0-47.0 %) 37.9 (Ref Range: 37.0-47.0 %) 34.7 L (Ref Range: 37.0-47.0 %) Mean Corpuscular Volume 71.0 L (Ref Range: 80.0-98.0 fL) 69.8 L (Ref Range: 80.0-98.0 fL) 77.1 L (Ref Range: 80.0-98.0 fL) Mean Corpuscular Hemoglobin 21.7 L (Ref Range: 27.0-33.0 pg) 20.3 L (Ref Range: 27.0-33.0 pg) 23.8 L (Ref Range: 27.0-33.0 pg) Mean Corpuscular HGB Conc 30.5 L (Ref Range: 31.0-35.0 g/dl) 29.0 L (Ref Range: 31.0-35.0 g/dl) 30.8 L (Ref Range: 31.0-35.0 g/dl) Red Cell Distribution Width 16.9 H (Ref Range: 11.0-16.0 %) 19.0 H (Ref Range: 11.0-16.0 %) 16.4 H (Ref Range: 11.0-16.0 %) Platelet Count 177 (Ref Range: 160-400 X10*3/uL) 244 (Ref Range: 160-400 X10*3/uL) 143 L (Ref Range: 160-400 X10*3/uL) Mean Platelet Volume 11.6 (Ref Range: 9.4-12.3 fL) TNP (Ref Range: 9.4-12.3 fL) 11.9 (Ref Range: 9.4-12.3 fL) Neutrophils Percent Auto 55.8 (Ref Range: 45-73 %) 58.5 (Ref Range: 45-73 %) 66.1 (Ref Range: 45-73 %) Imm Gran Pct Auto 0.2 (Ref Range: 0.0-0.4 %) 0.3 (Ref Range: 0.0-0.4 %) 0.5 H (Ref Range: 0.0-0.4 %) Lymphocytes Percent Auto 33.1 (Ref Range: 20-40 %) 29.9 (Ref Range: 20-40 %) 23.5 (Ref Range: 20-40 %) Monocytes Percent Auto 8.0 (Ref Range: 2-11 %) 7.5 (Ref Range: 2-11 %) 7.1 (Ref Range: 2-11 %) Eosinophils Percent Auto 2.3 (Ref Range: 0-4 %) 3.0 (Ref Range: 0-4 %) 2.1 (Ref Range: 0-4 %) Basophils Percent Auto 0.6 (Ref Range: 0-2 %) 0.8 (Ref Range: 0-2 %) 0.7 (Ref Range: 0-2 %) NRBC Pct Auto 0.0 (Ref Range: 0.0-0.2 /100WBC) 0.0 (Ref Range: 0.0-0.2 /100WBC) 0.0 (Ref Range: 0.0-0.2 /100WBC) Neutrophils Absolute Auto 4.6 (Ref Range: 2.0-8.3 x10*3/uL) 5.5 (Ref Range: 2.0-8.3 x10*3/uL) 7.1 (Ref Range: 2.0-8.3 x10*3/uL) Imm Gran Abs Auto 0.02 (Ref Range: 0.00-0.03 X10*3/uL) 0.03 (Ref Range: 0.00-0.03 X10*3/uL) 0.05 H (Ref Range: 0.00-0.03 X10*3/uL) Lymphocytes Absolute Auto 2.7 (Ref Range: 1.2-4.9 X10*3/uL) 2.8 (Ref Range: 1.2-4.9 X10*3/uL) 2.5 (Ref Range: 1.2-4.9 X10*3/uL) Monocytes Absolute Auto 0.7 (Ref Range: 0.1-1.2 X10*3/uL) 0.7 (Ref Range: 0.1-1.2 X10*3/uL) 0.8 (Ref Range: 0.1-1.2 X10*3/uL) Eosinophils Absolute Auto 0.2 (Ref Range: 0.0-0.4 X10*3/uL) 0.3 (Ref Range: 0.0-0.4 X10*3/uL) 0.2 (Ref Range: 0.0-0.4 X10*3/uL) Basophils Absolute Auto 0.1 (Ref Range: 0.0-0.2 X10*3/uL) 0.1 (Ref Range: 0.0-0.2 X10*3/uL) 0.1 (Ref Range: 0.0-0.2 X10*3/uL) NRBC Abs Auto 0.000 (Ref Range: 0.0-0.012 X10*3/uL) 0.000 (Ref Range: 0.0-0.012 X10*3/uL) 0.000 (Ref Range: 0.0-0.012 X10*3/uL) * Lab:Thyroid Stimulating Horm one * Collection Date 02/07/2025 02/21/2021 11/16/2020 Collection Time 03:01 PM 04:20 PM 02:55 PM Order Date 02/07/2025 02/21/2021 11/16/2020 Thyroid Stimulating Hormone 1.58 (Ref Range: 0.32-4.0 uIU/mL) 1.32 (Ref Range: 0.32-4.0 uIU/mL) 1.89 (Ref Range: 0.32-4.0 uIU/mL) * Lab:RETIC * Collection Date 02/07/2025 10/07/2024 11/16/2022 Collection Time 03:01 PM 09:15 AM 11:04 AM Order Date 02/07/2025 10/07/2024 11/16/2022 Reticulocytes Absolute 0.058 (Ref Range: 0.026-0.095 X10*6/uL) 0.058 (Ref Range: 0.026-0.095 X10*6/uL) 0.074 (Ref Range: 0.026-0.095 X10*6/uL) Immature Retic Fraction 18.7 H (Ref Range: 3.0-15.9 %) 20.0 H (Ref Range: 3.0-15.9 %) 19.8 H (Ref Range: 3.0-15.9 %) Retic HGB Equivalent 24.6 L (Ref Range: 30.0-35.0 pg) 23.7 L (Ref Range: 30.0-35.0 pg) 26.6 L (Ref Range: 30.0-35.0 pg) Reticulocyte Percent 1.2 (Ref Range: 0.5-1.8 %) 1.1 (Ref Range: 0.5-1.8 %) 1.6 (Ref Range: 0.5-1.8 %) ???Lab:Comprehensive [place]. Panel Fast (Order Date - 02/07/2025) (Collection Date & Time - 02/07/2025 03:01 PM)?ValueReference Range?Mlckml091031- 145 - mmol/L?Bilirubin Total0.50.0-1.0 - mg/dL?Aspartate Amino Xtakckrdvfy885-58 - U/L?Alanine Bdvwioyknddjrvcv89-88 - U/L?Total Protein7.06.5-8.0 - g/dL?Albumin Level4.13.5-5.0 - g/dL?Alkaline Scsjjsgdkzs1625-307 - U/L?Potassium3.63.3-5.1 - mmol/L?Tjbbmyxg962 96-108 - mmol/L?Carbon Yzcypsd2369-80 - mmol/L?Anion Dcc7354-40 - ?Blood Urea Dcgklwjt732-57 - mg/dL?Creatinine1.050.5-1.4 - mg/dL ?Estimated Glomerular Filt Rate55-?Glucose Pjbnpxj0785-25 - mg/dL ?Calcium9.28.4-10.2 - mg/dL * Lab:Ferritin * Collection Date 02/07/2025 10/07/2024 11/16/2022 Collection Time 03:01 PM 09:15 AM 11:04 AM Order Date 02/07/2025 10/07/2024 11/16/2022 Ferritin 7 L (Ref Range: 10-250 ng/mL) 18 (Ref Range: 10-250 ng/mL) 22 (Ref Range: 10-250 ng/mL) ???Lab:INR WHOLE BLOOD POC (Order Date - 02/11/2025) (Collection Date & Time - 02/11/2025 09:43 AM)?ValueReference Range?INR WHOLE BLOOD POC2.4H 0.9-1.1 - ???Lab:Prothrombin Time Whole Bld POC (Order Date - 02/11/2025) (Collection Date & Time - 02/11/2025 09:43 AM)?ValueReference Range?Prothrombin Time Whole Bld POC28.3H11.1-13.5 - sec * Examination: G eneral Examination: GENERAL APPEARANCE: p fernando, well nourished, well developed, in no acute distress, calm and relaxed, morbidly obese, woman. HEAD: a traumatic, normocephalic. EYES: e js, perrla, anicteric, conjugate. EARS: n ormal. NOSE: s eptum intact. ORAL CAVITY: n ormal, unremarkable. NECK/THYROID: n o jugular venous distention, no carotid bruit, thyroid Not palpable. LYMPH NODES: n o enlarged lymph nodes,spleen normal. SKIN: n o suspicious lesions, anicteric. HEART: n o clicks, gallops, murmurs, or rubs, regular rhythm, S1, S2 normal, no s3, or vascular bruits. LUNGS: c lear to auscultation . BREASTS: no masses palpable bilaterally. ABDOMEN: b owel sounds normal, no ascites, no organomegaly, no mass, morbid obesity. RECTAL EXAM: n ot examined. MUSCULOSKELETAL: e xtremities unremarkable, no clubbing, cyanosis or edema. PERIPHERAL PULSES: n ormal. NEUROLOGIC: a lert and oriented, cranial nerves 2-12 grossly intact, deep tendon reflexes 2+ symmetrical, motor strength normal upper and lower extremities, sensory exam intact. PSYCH: a lert, oriented, thought process logical, goal directed, cognitive function intact. Assessment: * Assessment: 1. I toñito deficiency anemia, unspecified iron deficiency anemia type - D50.9 (Primary) ? N otes :Her ferritin has fallen from 18 to 7. I stressed with her that she had to take the ferrous sulfate every day. She agreed to do so. Repeat blood work has been ordered. 2 . M orbid obesity - E66.01 N otes :Her body mass index is now 41.We discussed diet and nutrition. I recommended aggressive weight loss. I recommended she consider the weight loss surgery program at [facility]. She has lost 59 pounds since her last visit. 3 . P ost-cholecystectomy syndrome - K91.5 N otes :This is a occasional discomfort. It has not affected her life significantly. No change in her regimen as needed. 4 . D ysthymic disorder - F34.1 N otes :Her depression is mild and I will recommend no change in her current medications. 5 . A dult onset diabetes mellitus with ketoacidosis - E11.10 N otes :She has been compliant with her medications, which are prescribed by primary care. 6 . T hrombophilia - D68.59 N otes :She has had no further blood clots or emboli. No change in her regimen was made. 7 . P ulmonary embolism, unspecified chronicity, unspecified pulmonary embolism type, unspecified whether acute cor pulmonale present - I26.99 N otes :She was breathing comfortably today and has had no further episodes of dizziness or arterial thromboembolism. She had multiple pulmonary emboli/2022.These have caused dyspnea with exertion and she is undergoing a series of pulmonary artery angioplasties at [facility] the next of which will be in August2023. Plan: * Treatment: 2. M orbid obesity [...] HFA Aerosol Solution, 108 (90 Base) MCG/ACT, Inhalation; C ontinue Divalproex Sodium ER Tablet Extended Release 24 Hour, 250 MG, Oral. L AB: CBC w DIFF L AB: Ferritin 3. O thers Continue [...] effort. T reatment Goals H bA1C < 7.0, Blood Sugars less than < 115. B arriers n o barriers. S elf-Managment Goals W ork on weight loss, with a goal of losing 1 lb per week. * Follow Up: 4 Months (Reason: OV) * Images: * Sign off status: Completed true * Provider: Elena Urbano MD Date: 0 02/11/2025 Generated for Satish lai/Nettie/Rishiitting on: 0 06/01/2025 [...] venous di stention, no carotid bruit, thyroid Not palpable HEART: no clicks, gallops, murmurs, or rubs, [...] normal RECTAL EXAM: not examined PSYCH: alert, oriented, tho ught process logical, goal directed, cognitive function intact ORAL CAVITY: normal, unremarkable
--- OUTSIDE RECORDS SUMMARY | 2025-02-12 14:51 | XMS_ITS ---
Author Organization Dario Urbano III, MD Address [address] [place] [address] Care Team Providers Care Project Administrative Assistant Name Role Phone Jacinta ANGULO, [facility] Primary Care Provider Dr. Dario Slater III [facility] [phone] REASON FOR VISIT Blood Type Encounters Encounter Location Date Provider Diagnosis Dario Urbano III, MD [address] [place] [address] [address] [place] [address] 02/12/2025 Dario Urbano Plan Of Treatment Next Appt Details Provider Name:Dario Urbano , 06/13/2025 09:30:00 AM, [address] [place] [address] [place], [address], Progress Notes * Domonique SANTILLAN SDOB:1975 (49 yo F)Acc No.[id number]:02/12/2025 Patient: Elena KARMENDomonique :1975 A ge:49 Y S ex:Female Address:[address] [place], [address] * true * Date: Generated for Printi ng/Faxing/eTransmitting on: 0 06/01/2025 10:44 AM EDT
--- NOTE | 2025-06-01 09:21 | MHC.OFFVISCO ---
Intake Intake Visit Reasons: Anticoagulation Allergies lisinopril (LISINOPRIL) Allergy (Severe, Verified 06/01/25 09:17) ANGIOEDEMA dapagliflozin (From FARXIGA) Allergy (Intermediate, Verified 06/01/25 09:17) HIVES erythromycin base (ERYTHROMYCIN BASE) Allergy (Intermediate, Verified 06/01/25 09:17) Hives liraglutide (From VICTOZA) Allergy (Intermediate, Verified 06/01/25 09:17) RASH amitriptyline (AMITRIPTYLINE) Adverse Reaction (Intermediate, Verified 06/01/25 09:17) lethargy metformin (METFORMIN) Adverse Reaction (Intermediate, Verified 06/01/25 09:17) GI UPSET to short acting form-is taking long acting & OK Medication List - Last Reconciled 06/01/25 by Linh Mcnulty RN acetaminophen ER 650 mg PO Q6H PRN albuterol sulfate 2.5 mg inhalation Q4H PRN albuterol sulfate 90 mcg/actuation (Ventolin HFA) 2 puffs inhalation Q6H PRN blood sugar diagnostic (FreeStyle Lite Strips) As directed blood-glucose meter (FreeStyle Lite Meter kit) Use daily As directed to check blood sugars compress.stocking,knee,reg,med 15-20 cm ferrous gluconate 324 mg PO DAILY furosemide (Lasix) 20 mg PO DAILY 90 days galcanezumab-gnlm (Emgality Pen) 240 mg (2 mL) subcut ONCE galcanezumab-gnlm (Emgality Pen) 120 mg subcut QMONTH hydroxychloroquine (Plaquenil) 200 mg PO DAILY 30 days levothyroxine 50 mcg PO QAM nebulizers As directed Oxygen Home Use As directed rosuvastatin 10 mg PO BEDTIME sertraline 100 mg PO DAILY sildenafil (pulm.hypertension) 20 mg PO TID tirzepatide (Mounjaro) 15 mg (0.5 mL) subcut QWEEK warfarin 5 mg See Protocol PO DAILY 30 days Nursing Note INR: 2.1- in therapeutic range 2-3 Medications and supplements reviewed- started emgality monthly- no interaction per micromedex No changes in health, diet, medications, or supplements, Denies any signs and symptoms of bleeding or bruising or clotting. Bleeding, bruising, clotting discussed Nutritional guidance given Dose: 2.5mg x 7 F/U INR: 2 weeks Patient verbalizes understanding of instructions given Anti-Coag Initial Assessment Social Hx Patient Tobacco Use Status: Never used Tobacco alcohol intake: former Alcohol intake frequency: does not drink Cardiovascular Hx: HTN Lung Disease HX: DVT/PE Endocrine Hx: Thyroid Disease Musculoskeletal Hx: Arthritis Blood Disorder Hx: Anemia and Hyperlipidemia GI Hx: Ulcers, Diverticulosis and Hemorrhoids Hx: Other Neurological Hx: Migraines/Headaches and Other Cancer HX: No Psych. Illness/Depression: Yes Coding Level of Care Code Est Patient Level 1 Diagnoses Current use of anticoagulant therapy Z79.01 Results AMB INR Fingerstick AMB INR Fingerstick 2.1 Last Edit by Linh Mcnulty RN on 06/01/25 09:22 interface delay Assessment & Plan Assessment & Plan (1) Current use of anticoagulant therapy: Code(s): Z79.01 - prison (current) use of anticoagulants Category: Medical
[2025-06-01 09:22] LABS: Prothrombin Time Whole Bld POC 25.2 sec (11.1-13.5); ~PT, ~INR - Anti Coag Clinic 2.1 (0.9-1.1)
--- OUTSIDE RECORDS SUMMARY | 2025-06-01 10:45 | XMS_ITS | Patient Health Record ---
Author Organization [facility] Address [address] [place] [address] Care Team Providers Care Editing Computer Publisher Name Role Phone Deena Workman Primary Care Provider Unavailab Dario Holbrook [phone] Allergies Allergen (clinical drug ingredient) Drug/Non Drug Allergy documented on EMR Reaction Allergy Type Onset Date Status amitriptyline Amitriptyline Unknown Drug Allergy Active dapagliflozin Farxiga Unknown Drug Allergy Act wiley metformin metFORMIN HCl ER Unknown Drug Allergy Active liraglutide Victoza Unknown Drug Allergy Activ e erythromycin Erythromycin Unknown Drug Allergy A ctive lisinopril Lisinopril Unknown Drug Allergy Activ e Results Component Value Reference Range Notes Prothrombin Time INR Reviewed date:01/17/2025 11:34:30 PM Interpretation: Performing Lab:[address] [address] Notes/Report: Prothrombin Time 13.1 10.9-12.4 SEC INTERNATIONAL NORM RATIO 1.1 0.9-1.1 INTERNATIONAL NORMALIZED RATIO (INR) REFERENCE RANGES Reference Range For patients not on anticoagulant therapy: 0.9 - 1.1 INR ranges for oral anticoagulant therapy: For prevention and treatment of venous thrombosis and pulmonary embolism: 2.0 - 3.0 For acute myocardial infarction with aspirin therapy: 2.0 - 3.0 For acute myocardial infarction without aspirin therapy: 3.0 - 4.0 For patients with mechanical prosthetic heart valves: 2.5 - 3.5 Glucose, Whole Blood Reviewed date:01/17/2025 11:34:21 PM Interpretation: Performing Lab:[address] [address] Notes/Report: Glucose, Whole Blood 118 60-115 mg/dL METER # : [id number] Pathology Reviewed date:01/18/2025 05:59:55 PM Interpretation: Performing Lab:[facility], [address] [place] [address] Notes/Report: Reason For Referral No Information Medications Medication [...] Status Risk Notes Problem Colon cancer screening (276862175) Colon cancer screening (Z12.11) Active confirmed Problem Irritable bowel syndrome (25872030) Irritable bowel syndrome (K58.9) Active confirmed Problem History of polyp of colon (situation) (412767347) Personal history of colonic polyps (Z86.010) Active confirmed Problem Microcytic anemia (766706259) Microcytic anemia (D50.9) Active confirmed Problem Long-term current use of anticoagulant (606171048) Anticoagulant long-term use (Z79.01) Active confirmed Problem Diverticulosis of colon (018999901) Diverticulosis of colon (K57.30) Active confirmed Vital Signs Blood pressure diastolic 00 mm Hg 10/07/2024 Height 65 in 10/07/2024 Blood pressure systolic 00 mm Hg 10/07/2024 Weight 236.8 lbs 10/07/2024 BMI 39.40 kg/m2 10/07/2024 Encounters Encounter Location Date Provider Diagnosis [facility] Out[facility] [address] [place] [id number] 01/17/2025 Dario Ramsey Colon cancer screeni ng Z12.11 ; Other specified diseases of anus and rectum K62.89 ; Diverticulosis of large intestine without perforation or abscess without bleeding K57.30 and Other hemorrhoids K64.8 [facility] [address] [address] 10/07/2024 Dario Ramsey Irritable bowel syndrome K58.9 ; Colon cancer screening Z12.11 ; Personal history of colonic polyps Z86.010 and Anticoagulant long-term use Z79.01 [facility] [address] [address] 10/08/2024 Dario Ramsey Assessments Encounter Date Diagnosis (ICD Code) Assessment Notes Treatment Notes Treatment Clinical Notes Section Notes 01/17/2025 Colon cancer screening (ICD-10 - Z12.11) 01/17/2025 Other specified diseases of anus and rectum (ICD-10 - K62.89) 10/07/2024 Colon cancer screening (ICD-10 - Z12.11) [...] to keep you advised of her progress. 01/17/2025 Diverticulosis of large intestine without perforation or abscess without bleeding (ICD-10 - K57.30) 10/07/2024 Personal history of colonic polyps (ICD-10 [...] to keep you advised of her progress. 01/17/2025 Other hemorrhoids (ICD-10 - K64.8) 10/07/2024 Anticoagulant long-term use (ICD-10 - Z79.01) [...] Name Order Date COLONOSCOPY 05/22/2022 COLONOSCOPY 10/07/2024 Insurance Providers Payer Name Payer Address Payer Phone Subscriber Number Group Number Insured Name Patient Relationship to Insured Coverage Start Date Coverage End Date [facility] [address] [address] [place], [place] [id number] DOMONIQUE SANTILLAN Self - patient is the insured MEDICAID OF [facility] [address] [place] [address] [id number] DOMONIQUE SANTILLAN Self - patient is the insured Medical (General) History Medical History History ICD Code ERCP with sphincterotomy 10-30-2001 Pulmonary emboli with COVID 10/2020-she describes a two-week hospitalization although did not require intubation. She describes having been left with some respiratory issues for which she is seeing Dr. Land. She also describes some residual brain fog Arthritis Denies SC,CVA NIDDM Anemia from heavy menses--she sees Dr. [...] for removal of pulmo nary clots at [facility] Surgical History Surgery Date(Month/Year) CCY 2001 BTL 2001 Bilateral carpal tunnel 2017 Right foot 1999 Right wrist 2021 Partial thyroidectomy for a cancer 2023
--- OUTSIDE RECORDS SUMMARY | 2025-06-01 10:45 | XMS_ITS | Patient Health Record ---
Author Organization Dario Urbano III, MD Address [address] [place] [address] Care Team Providers Care Green End Department Supervisor Name Role Phone Jacinta ANGULO, [facility] Primary Care Provider Dr. Dario Slater III Unavailable [phone] Allergies Allergen (clinical drug ingredient) Drug/Non Drug [...] ff Reviewed date:10/08/2024 08:30:57 AM Interpretation: Performing Lab:[facility], [address] [place] [address] Notes/Report: White Blood Count 9.3 4.8-10.8 X10*3/uL [...] te Reviewed date:10/08/2024 08:30:58 AM Interpretation: Performing Lab:[address] [address] Notes/Report: Erythrocyte Sedimentation Rate 23 0-20 MM/HR Patients with polycythemia and many hemoglobin abnormalities may have depressed sed rates whereas patients with anemia may have elevated sed rates. RETIC Reviewed date:10/08/2024 08:30:58 AM Interpretation: Performing Lab:[address] [address] Notes/Report: Reticulocytes Absolute 0.058 0.026-0.095 X10*6/ uL Immature Retic Fraction 20.0 3.0-15.9 % Retic HGB Equivalent 23.7 30.0-35.0 pg Reticulocyte Percent 1.1 0.5-1.8 % Ferritin Reviewed date:10/08/2024 08:30:58 AM Interpretation: Performing Lab:[address] [address] Notes/Report: Ferritin 18 10-250 ng/mL Complete Blood Count Auto Di ff Reviewed date:02/11/2025 10:50:44 AM Interpretation: Performing Lab:[facility], [address] [place] [address] Notes/Report: White Blood Count 8.2 4.8-10.8 X10*3/uL Red Blood Count 4.80 4.20-5.50 X10*6/uL Hemoglobin 10.4 12.0-16.0 g/dl Hematocrit 34.1 37.0-47.0 % Mean Corpuscular Volume 71.0 80.0-98.0 fL Mean Corpuscular Hemoglobin 21.7 27.0-33.0 pg Mean Corpuscular HGB Conc 30.5 31.0-35.0 g/dl Red Cell Distribution Width 16.9 11.0-16.0 % Platelet Count 177 160-400 X10*3/uL Mean Platelet Volume 11.6 9.4-12.3 fL Neutrophils Percent Auto 55.8 45-73 % Imm Gran Pct Auto 0.2 0.0-0.4 % Lymphocytes Percent Auto 33.1 20-40 % Monocytes Percent Auto 8.0 2-11 % Eosinophils Percent Auto 2.3 0-4 % Basophils Percent Auto 0.6 0-2 % NRBC Pct Auto 0.0 0.0-0.2 /100WBC Neutrophils Absolute Auto 4.6 2.0-8.3 x10*3/u L Imm Gran Abs Auto 0.02 0.00-0.03 X10*3/uL Lymphocytes Absolute Auto 2.7 1.2-4.9 X10*3/u L Monocytes Absolute Auto 0.7 0.1-1.2 X10*3/uL Eosinophils Absolute Auto 0.2 0.0-0.4 X10*3/u L Basophils Absolute Auto 0.1 0.0-0.2 X10*3/uL NRBC Abs Auto 0.000 0.0-0.012 X10*3/uL RETIC Reviewed date:02/11/2025 10:50:44 AM Interpretation: Performing Lab:[facility], [address] [place] [address] Notes/Report: Reticulocytes Absolute 0.058 0.026-0.095 X10*6/ uL Immature Retic Fraction 18.7 3.0-15.9 % Retic HGB Equivalent 24.6 30.0-35.0 pg Reticulocyte Percent 1.2 0.5-1.8 % Comprehensive Mitchell. Panel Fa Reviewed date:02/11/2025 10:50:44 AM Interpretation: Performing Lab:[facility], [address] [place] [address] Notes/Report: Sodium 142 135-145 mmol/L Potassium 3.6 3.3-5.1 mmol/L Chloride 106 96-108 mmol/L Carbon Dioxide 26 22-29 mmol/L Anion Gap 14 12-20 Blood Urea Nitrogen 15 9-16 mg/dL Creatinine 1.05 0.5-1.4 mg/dL Estimated Glomerular Filt Rate 55 Chronic Kidney Disease: Estimated GFR < 60 mL/min/1.73m2 Severe Kidney Disease: Estimated GFR < 15 mL/min/1.73m2 Glucose Fasting 95 60-99 mg/dL Calcium 9.2 8.4-10.2 mg/dL Bilirubin Total 0.5 0.0-1.0 mg/dL Aspartate Amino Transferase 17 5-31 U/L Alanine Aminotransferase 8 0-31 U/L Total Protein 7.0 6.5-8.0 g/dL Albumin Level 4.1 3.5-5.0 g/dL Alkaline Phosphatase 83 39-117 U/L Ferritin Reviewed date:02/11/2025 10:50:44 AM Interpretation: Performing Lab:[facility], [address] [place] [address] Notes/Report: Ferritin 7 10-250 ng/mL Lipid Panel Reviewed date:02/11/2025 10:50:44 AM Interpretation: Performing Lab:[facility], [address] [place] [address] Notes/Report: Triglycerides 247 <150 mg/dL Desirable Triglyceride: less than 150 mg/dL Borderline High Triglyceride 150-199 mg/dL High Triglyceride: 200-499 mg/dL Very High Triglyceride: greater than or equal to 5OO mg/dL Cholesterol 143 <200 mg/dL Desirable Cholesterol: less than 200 mg/dL Borderline High Cholesterol: 200-239 mg/dL High Cholesterol: greater than 239 mg/dL LDL Cholesterol Calculated 52 <100 mg/dL Desirable LDL: less than 100 mg/dL Near Optimal/Above Optimal LDL: 110-129 mg/dL Borderline High LDL: 130-159 mg/dL High LDL: 160-189 mg/dL Very High LDL: greater than or equal to 190 mg/dL HDL Cholesterol 42 >40 mg/dL Desirable HDL: greater than 40 mg/dL Note: This HDL assay may give artificially low results in patients with liver disease. Free T4 (Free Thyroxine) Reviewed date:02/11/2025 10:50:44 AM Interpretation: Performing Lab:[address] [address] Notes/Report: Free T4 (Free Thyroxine) 0.94 0.71-1.85 ng/dL Thyroid Stimulating Hormone Reviewed date:02/11/2025 10:50:44 AM Interpretation: Performing Lab:[address] [address] Notes/Report: Thyroid Stimulating Hormone 1.58 0.32-4.0 uIU/ mL TSH 3rd Generation ([facility]) INR WHOLE BLOOD POC Reviewed date:02/11/2025 10:50:44 AM Interpretation: Performing Lab:[address] [address] Notes/Report: PT, INR - [facility] 2.4 0.9-1.1 METER #: [id number] INTERNATIONAL NORMALIZED RATIO (INR) REFERENCE RANGES Reference [...] mechanical prosthetic heart valves: 2.5 - 3.5 Prothrombin Time Whole Bld P OC Reviewed date:02/11/2025 10:50:44 AM Interpretation: Performing Lab:[address] [address] Notes/Report: Prothrombin Time Whole Bld POC 28.3 11.1-13.5 sec INR WHOLE BLOOD POC Reviewed date:03/25/2025 12:09:56 PM Interpretation: Performing Lab:[facility], [address] [place] [address] Notes/Report: PT, INR - [facility] 1.0 0.9-1.1 METER #: [id number] INTERNATIONAL NORMALIZED RATIO (INR) REFERENCE RANGES Reference [...] mechanical prosthetic heart valves: 2.5 - 3.5 Prothrombin Time Whole Bld P OC Reviewed date:03/25/2025 12:09:56 PM Interpretation: Performing Lab:[address] [address] Notes/Report: Prothrombin Time Whole Bld POC 11.8 11.1-13.5 sec INR WHOLE BLOOD POC Reviewed date:03/25/2025 12:09:56 PM Interpretation: Performing Lab:[facility], [address] [place] [address] Notes/Report: PT, INR - [facility] 1.9 0.9-1.1 METER #: [id number] INTERNATIONAL NORMALIZED RATIO (INR) REFERENCE RANGES Reference [...] mechanical prosthetic heart valves: 2.5 - 3.5 Prothrombin Time Whole Bld P OC Reviewed date:03/25/2025 12:09:56 PM Interpretation: Performing Lab:[address] [address] Notes/Report: Prothrombin Time Whole Bld POC 23.3 11.1-13.5 sec INR WHOLE BLOOD POC Reviewed date:05/23/2025 12:59:26 PM Interpretation: Performing Lab:[address] [address] Notes/Report: PT, INR - [facility] 2.3 0.9-1.1 METER #: [id number] INTERNATIONAL NORMALIZED RATIO (INR) REFERENCE RANGES Reference [...] mechanical prosthetic heart valves: 2.5 - 3.5 Prothrombin Time Whole Bld P OC Reviewed date:05/23/2025 12:59:26 PM Interpretation: Performing Lab:[facility], [address] [place] [address] Notes/Report: Prothrombin Time Whole Bld POC 27.9 11.1-13.5 sec Reason For Referral No Information Medications Medication SIG (Take, Route, Frequency, Duration) Notes Start Date End Date Status metFORMIN HCl 1000 MG 2 tablet with a me al Orally twice a day Active Warfarin Sodium (5 MG) 5 MG 1 tablet Ora lly Once a day Active Albuterol Sulfate (2.5 MG/3ML) 0.083% 3 mL as needed Inhalation every 6 hrs Active Mounjaro 7.5 MG/0.5ML as directed Subcut aneous Once a week Active Sertraline HCl 100 MG 1 tablet Orally On ce a day 09/29/2024 Active Sildenafil Citrate 20 MG Oral Active Levothyroxine Sodium 50 MCG 1 tablet on an empty stomach in the morning Orally Once a day Active Ferrous Sulfate 325 (65 Fe) MG TAKE 1 TABLET BY MOUTH EVERY DAY FOR 30 DAYS Active Divalproex Sodium ER 250 MG Oral Active Albuterol Sulfate HFA 108 [...] Problem Status W/U Status Risk Notes Problem 48443487 Dysthymic disorder (F34.1) Active confirmed Her depress ion is mild and I will recommend no change in her current medications. Problem 161195369 Acquired hypothyroidism (E03.9) Active confirmed She has been continued on her current dose of levothyroxine without change. Problem 294452085 Vitamin B 12 deficiency (E53.8) Active confirmed A B12 level is not available at this time. She was continued on current therapy and the value will be followed. 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 She has been referred to [facility] for thyroidectomy. This will require cessation of her anticoagulation . Problem 975850625 History of cholecystectomy (Z90.49) Active confirmed Problem 297794058 Thrombophilia (D68.59) Active confirmed She has had no further blood clots or emboli. No change in her regimen was made. Problem 60321493 Iron deficiency anemia, unspecified iron deficiency anemia type (D50.9) Active confirmed Her ferritin has fallen from 18 to 7. I stressed with her that she had to take the ferrous sulfate every day. She agreed to do so. Repeat blood work has been ordered. Problem 023272995 Morbid obesity (E66.01) Active confirmed Her body mass index is now 41.We discussed diet and nutrition. I recommended aggressive weight loss. I recommended she consider the weight loss surgery program at [facility]. She has lost 59 pounds since her last visit. Problem 41966599 Adult onset diabetes mellitus with ketoacidosis (E11.10) Active confirmed She has been compliant with her medications, which are prescribed by primary care. 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 It has not affected her life significantly. No change in her regimen as needed. Problem 24424554 Pulmonary embolism, unspecified chronicity, unspecified pulmonary embolism type, unspecified whether acute cor pulmonale present (I26.99) Active confirmed She was breathing comfortably today and has had no further episodes of dizziness or arterial thromboembolism . She had multiple pulmonary emboli/2022.These have caused dyspnea with exertion and she is undergoing a series of pulmonary artery angioplasties at the [facility] the next of which will be in August2023. Vital Signs Heart Rate 82 /min 02/11/2025 Temperature 97.8 degrees Fahrenheit 02/11/2025 Blood pressure diastolic 70 mm Hg 02/11/2025 Height 64 in 02/11/2025 Blood pressure systolic 139 mm Hg 02/11/2025 Weight 243 lbs 02/11/2025 BMI 41.71 kg/m2 02/11/2025 Encounters Encounter Location Date Provider Diagnosis Dario Urbano III, MD [address] [place] [address] [place] [address] 09/29/2024 Dario Urbano Morbid obesity E66.0 1 ; Thrombophilia D68.59 ; Iron deficiency anemia, unspecified iron deficiency anemia type D50.9 ; Dysthymic disorder F34.1 ; Post-cholecystectomy syndrome K91.5 ; Adult onset diabetes mellitus with ketoacidosis E11.10 ; Vitamin B 12 deficiency E53.8 and Acquired hypothyroidism E03.9 Dario Urbano III, MD [address] [place] [address] [place] [address] 10/13/2024 Dario Urbano Morbid obesity E66.0 1 ; Iron deficiency anemia, unspecified iron deficiency anemia type D50.9 ; Acquired hypothyroidism E03.9 ; Thrombophilia D68.59 ; Post-cholecystectomy syndrome K91.5 ; Dysthymic disorder F34.1 and Vitamin B 12 deficiency E53.8 Dario Urbano III, MD [address] [place] [address] [place] [address] 02/11/2025 Dario Urbano Morbid obesity E66.0 1 ; Iron deficiency anemia, unspecified iron deficiency anemia type D50.9 ; Post-cholecystectomy syndrome K91.5 ; Dysthymic disorder F34.1 ; Adult onset diabetes mellitus with ketoacidosis E11.10 ; Thrombophilia D68.59 and Pulmonary embolism, unspecified chronicity, unspecified pulmonary embolism type, unspecified whether acute cor pulmonale present I26.99 Dario Urbano III, MD [address] [place] [address] [place] [address] 02/12/2025 Dario Urbano Assessments Encounter Date Diagnosis (ICD Code) Assessment [...] the weight loss surgery program at [facility]. She has lost 59 pounds [...] the weight loss surgery program at [facility]. She has lost 59 pounds since her last visit. 02/11/2025 Iron deficiency anemia, unspecified iron deficiency anemia type (ICD-10 - D50.9) Her ferritin has fallen from 18 to 7. I stressed with her that she had to take the ferrous sulfate every day. She agreed to do so. Repeat blood work has been ordered. 02/11/2025 Morbid obesity (ICD-10 - E66.01) Her body mass index is now 41.We discussed diet and nutrition. I recommended aggressive weight loss. I recommended she consider the weight loss surgery program at [facility]. She has lost 59 pounds [...] her current dose of levothyroxine without change. 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 It has not affected her life significantly. No change in her regimen as needed. 09/29/2024 Dysthymic disorder (ICD-10 - F34.1) Her depression is mild and I will recommend no change in her current medications. 10/13/2024 Thrombophilia (ICD-10 - D68.59) She has had no further blood clots or emboli. No change in her regimen was made. 02/11/2025 Dysthymic disorder (ICD-10 - F34.1) Her [...] change in her regimen as needed. 02/11/2025 Adult onset diabetes mellitus with ketoacidosis (ICD-10 - E11.10) She has been compliant with her medications, which are prescribed by primary care. 09/29/2024 Adult onset diabetes mellitus with ketoacidosis (ICD-10 - E11.10) She has been compliant with her medications, which are prescribed by primary care. 10/13/2024 Dysthymic disorder (ICD-10 - F34.1) Her depression is mild and I will recommend no change in her current medications. 02/11/2025 Thrombophilia (ICD-10 - D68.59) She has had no further blood clots or emboli. No change in her regimen was made. 09/29/2024 Vitamin B 12 deficiency (ICD-10 - E53.8) A B12 level is not available at this time. She was continued on current therapy and the value will be followed. 10/13/2024 Vitamin B 12 deficiency (ICD-10 - E53.8) A B12 level is not available at this time. She was continued on current therapy and the value will be followed. 02/11/2025 Pulmonary embolism, unspecified chronicity, unspecified pulmonary embolism type, unspecified whether acute cor pulmonale present (ICD-10 - I26.99) She was breathing comfortably today and has had no further episodes of dizziness or arterial thromboembolism. She had multiple pulmonary emboli/2022.These have caused dyspnea with exertion and she is undergoing a series of pulmonary artery angioplasties at the [facility] the next of which will be in August2023. 09/29/2024 Acquired hypothyroidism (ICD-10 - E03.9) She says is her design transferrer was going to put her on thyroid replacement. Plan Of Treatment Next Appt Details Provider Name:Dario Urbano , 06/13/2025 09:30:00 AM, [address] [place] [address] [address], [place], [address], Insurance Providers Payer Name Payer Address Payer Phone Subscriber Number Group Number Insured Name Patient Relationship to Insured Coverage Start Date Coverage End Date [employer] [address] [address] [place] [address] [id number] Bro Domonique Self - patient is the insured MEDICAID [place] [address] [place], [place] [id number] Domonique Bro Self - patient is the insured Medical (General) History Medical History History ICD Code Hyperlipidemia, unspecified hyperlipidem ia type E78.5 Postcholecystectomy syndrome K91.5 Dysmenorrhea N94.6 Morbid obesity E66.01 Dysthymic disorder F34.1 Anemia, unspecified type D64.9 Type 2 diabetes mellitus wit h complication, unspecified whether nursing home insulin use E11.8 G6 carpal tunnel syndrome, right wrist, rep aired history of cholecystitis gestational hypertension hypothyroid microcytic anemia migraine headaches type 2 diabetes mellitus diverticulitis 2012 history of dysmenorrhea fasciitis, left foot. 2003 Pulmonary embolism Positive for factor V Leiden mutation, t hrombophilia Chronic anticoagulation Surgical History Surgery Date(Month/Year) No history Pulmonary emboli, angioplasty in and 08/2023 tendonitis right hand 04/2022 left wrist carpal tunnel 04/2018 6 laparoscopic cholecystectomy 2002 right hand carpatunel 2017 left foot fasciotomy 2004 Hospitalization History Reason Date(Month/Year) No history COVID 10/2020
== END 2025-06-01 09:31 | disposition home or self-care (01) ==
LOC: HO.ACS 09:09
PROVIDERS: PCP Internal Medicine; Visit Provider Internal Medicine Medical Oncology
DX: Z79.01 Long term (current) use of anticoagulants (principal)

== ENCOUNTER 2025-06-14 09:09 | Outpatient (AMB) | payer OTHER, SELFPAY ==
[2025-06-14 09:29] LABS: Prothrombin Time Whole Bld POC 28.6 sec (11.1-13.5); ~PT, ~INR - Anti Coag Clinic 2.4 (0.9-1.1)
--- NOTE | 2025-06-14 09:35 | MHC.OFFVISCO ---
Intake Intake Visit Reasons: Anticoagulation Allergies lisinopril (LISINOPRIL) Allergy (Severe, Verified 06/14/25 09:20) ANGIOEDEMA dapagliflozin (From FARXIGA) Allergy (Intermediate, Verified 06/14/25 09:20) HIVES erythromycin base (ERYTHROMYCIN BASE) Allergy (Intermediate, Verified 06/14/25 09:20) Hives liraglutide (From VICTOZA) Allergy (Intermediate, Verified 06/14/25 09:20) RASH amitriptyline (AMITRIPTYLINE) Adverse Reaction (Intermediate, Verified 06/14/25 09:20) lethargy metformin (METFORMIN) Adverse Reaction (Intermediate, Verified 06/14/25 09:20) GI UPSET to short acting form-is taking long acting & OK Medication List - Last Reconciled 06/14/25 by Licha Muñoz RN acetaminophen ER 650 mg PO Q6H PRN albuterol sulfate 2.5 mg inhalation Q4H PRN albuterol sulfate 90 mcg/actuation (Ventolin HFA) 2 puffs inhalation Q6H PRN blood sugar diagnostic (FreeStyle Lite Strips) As directed blood-glucose meter (FreeStyle Lite Meter kit) Use daily As directed to check blood sugars compress.stocking,knee,reg,med 15-20 cm ferrous gluconate 324 mg PO DAILY furosemide (Lasix) 20 mg PO DAILY 90 days galcanezumab-gnlm (Emgality Pen) 120 mg subcut QMONTH hydroxychloroquine (Plaquenil) 200 mg PO DAILY 30 days levothyroxine 50 mcg PO QAM nebulizers As directed Oxygen Home Use As directed rosuvastatin 10 mg PO BEDTIME sertraline 100 mg PO DAILY sildenafil (pulm.hypertension) 20 mg PO TID tirzepatide (Mounjaro) 15 mg (0.5 mL) subcut QWEEK warfarin 5 mg See Protocol PO DAILY 30 days Nursing Note INR: 2.4 in therapeutic range Medications and supplements reviewed No changes in health, diet, medications, or supplements, Denies any signs and symptoms of bleeding or bruising or clotting. Bleeding, bruising, clotting discussed Nutritional guidance given Dose: Keep same dose for now2.5mg daily F/U INR: 2 weeks per pt request Patient verbalizes understanding of instructions given Anti-Coag Initial Assessment Social Hx Patient Tobacco Use Status: Never used Tobacco alcohol intake: former Alcohol intake frequency: does not drink Cardiovascular Hx: HTN Lung Disease HX: DVT/PE Endocrine Hx: Thyroid Disease Musculoskeletal Hx: Arthritis Blood Disorder Hx: Anemia and Hyperlipidemia GI Hx: Ulcers, Diverticulosis and Hemorrhoids Hx: Other Neurological Hx: Migraines/Headaches and Other Cancer HX: No Psych. 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
--- OUTSIDE RECORDS SUMMARY | 2025-06-14 10:07 | XMS_ITS | Encounter Summary ---
Author Organization [facility] Address [address] [place] [address] [place] [address] Phone Care Team Providers Care Veterinary Poultry Inspector Name Role Phone Deena Workman MD Primary Care Provider Encounter Details Date Type Department Care Team (Late st Contact Info) Description 04/25/2023 Procedure Pass [facility] [place], Carlos [address] [facility] [address], 2nd Floor, [address] [place] [address] Social History Tobacco Use Types Packs/Day Years [...] Info) Description 08/03/2025 9:00 AM EST Telemedicine [facility] [address] [facility], 2nd Floor, [address] [place] [address] Nick Barnard MD [address] [place] [id number] [email or web address] documented as of this encounter Visit Diagnoses Not on filedocumented in this encounter Care Teams Veterinary Poultry Inspector Relationship Specialty Start Date End Date Deena Workman MD [address] [place] [address] [place] [address] PCP - General Internal Medicine 04/11/23 documented as of this encounter Additional Source Comments The information contained in this document represents components of the legal health record. It is not the complete legal health record.[facility]
--- OUTSIDE RECORDS SUMMARY | 2025-06-14 10:07 | XMS_ITS | Encounter Summary ---
Author Organization [facility] Address [address] [place] [address] [address] [place] [address] Phone Care Team Providers Care Full Service Vending Driver Name Role Phone Deena Workman MD Primary Care Provider Encounter Details Date Type Department Care Team (Late st Contact Info) Description 05/29/2023 Procedure Pass [facility] [place] [facility] Cardiac Claims Supervisor [address] [facility], [address] 9, [address] [place] [phone] Social History Tobacco Use Types Packs/Day Years [...] Info) Description 08/03/2025 9:00 AM EST Telemedicine [facility] [place] [facility]pertension Clinic [address] [facility], 2nd Floor, [address] [place] [address] Nick Barnard MD [address] [place] [phone] [email or web address] documented as of this encounter Visit Diagnoses Not on filedocumented in this encounter Care Teams Full Service Vending Driver Relationship Specialty Start Date End Date Deena Workman MD [address] [place] [address] [place] [address] PCP - General Internal Medicine 04/11/23 documented as of this encounter Additional Source Comments The information contained in this document represents components of the legal health record. It is not the complete legal health record.[facility]
--- OUTSIDE RECORDS SUMMARY | 2025-06-14 10:07 | XMS_ITS | Encounter Summary ---
Author Organization [facility] Address [address] [place] [address] [address] [place] [address] Phone Care Team Providers Care Underwear Cutter Name Role Phone Deena Workman MD Primary Care Provider Reason for Referral * Outpatient Procedure - Closed Specialty Diagnoses / Procedures Referred By Contac t Referred To Contact Radiology Diagnoses Dyspnea, unspecified Pulmonary embolism Procedures NM Lung Perfusion Imaging NM Lung Ventilation and Perfusion Imaging NM Lung Perfusion and Ventilation Differential Quantification NM Lung Perfusion Imaging NM Lung Ventilation and Perfusion Imaging AR PULMONARY VENTILATION & PERFUSION IMAGING AR QUANT DIFF PULM PRFUSION & VENTLAJ W/WO IMAGING Nick Barnard MD Phone: tel: fax: mailto:[email or web address] Referral ID Status Reason Start Date Expiration Date Visits Re quested Visits Authorized [id number] Closed 08/14/2023 1 1 Encounter Details Date Type Department Care Team (Late st Contact Info) Description 10/13/2023 Ancillary Orders [facility] [address] [facility], 2nd Floor, [address] [place] [address] Nick Barnard MD [address] [place] [address] [address] [place] [address] [email or web address]@ [email or web address] Dyspnea, unspecified (Primary Dx); Pulmonary embolism [...] Info) Description 08/03/2025 9:00 AM EST Telemedicine [facility] Pul[facility]pert[facility] Clinic [address] [place] [address], 2nd Floor, [address] [place] [address] Nick Barnard MD [address] [place], [place] [id number] [place] [address] [email or web address] documented as of this encounter Results [...] infarction documented in this encounter Care Teams Underwear Cutter Relationship Specialty Start Date End Date Deena Workman MD [address] [place] [address] [place] [address] PCP - General Internal Medicine 04/11/23 documented as of this encounter Additional Source Comments The information contained in this document represents components of the legal health record. It is not the complete legal health record.[facility]
--- OUTSIDE RECORDS SUMMARY | 2025-06-14 10:07 | XMS_ITS | Clinical Summary ---
Author Organization [facility] it Address [address] [place] [address] Care Team Providers Care Armature Straightener Name Role Phone Unavailable Primary Care Provider [...] 5 season) 2025 Influenza Vaccine (#1) 2025 RSV Immunization Adult Patie nts (1 - 1-dose 75+ series) 2049 HIB Vaccines Aged Out No longer eligi [...] on File Type Date Recorded Patient Editor & Co Founder Expl anation Health Care Decision (hx) 10/31/2020 YASMANY LONG DIRECTIVE
--- OUTSIDE RECORDS SUMMARY | 2025-06-14 10:07 | XMS_ITS | Encounter Summary ---
Author Organization [facility] Address [address] [place] [address] [address] [place] [address] Phone Care Team Providers Care Salon Professional Name Role Phone Deena Workman MD Primary Care Provider Encounter Details Date Type Department Care Team (Late st Contact Info) Description 08/11/2023 Procedure Pass [facility] Cardiac Ui Engineer [address] [facility], [address] 9, [address] [place] [address] Social History Tobacco Use Types [...] 10:00 PM EST Ab Hyman RN * [place] Suicide Severity Rating Scale (Screener/Recent Self-Report) Question [...] [facility] [address] [place] [address], 2nd Floor, [address] [place] [address] Nick Barnard MD [address] [place], [place] [id number] [place] [address] [email or web address] documented as of this encounter Visit Diagnoses Not on filedocumented in this encounter Care Teams Salon Professional Relationship Specialty Start Date End Date Deena Workman MD [address] [place] [address] [place] [address] PCP - General Internal Medicine 04/11/23 documented as of this encounter Additional Source Comments The information contained in this document represents components of the legal health record. It is not the complete legal health record.[facility]
--- OUTSIDE RECORDS SUMMARY | 2025-06-14 10:07 | XMS_ITS | Clinical Summary ---
Author Organization [facility] Address [address] [place] [address] Phone Care Team Providers Care Textile Chemist Name Role Phone Deena Workman MD Primary Care Provider Allergies Active Allergy Reactions Criticality Noted Date Comments Amitriptyline Hcl Other (See Comments) 08/01/20 23 [place] drugged Dapagliflozin 05/08/2023 Erythromycin 05/08/2023 Liraglutide 05/08/2023 [...] Active ferrous sulfate 324 mg (65 mg aniak iron) TbEC Take 324 mg by mouth [...] 04/11/2025 Ancillary Orders [facility] [address] [place] [address] Nick Barnard MD 04/11/2025 Ancillary Orders [facility] [address] [place] [address] Nick Barnard MD 04/08/2025 Ancillary Orders [facility] [address] [place] [address] Nick Barnard MD 03/22/2025 - 03/22/2025 11:59 PM EDT Hospital Encounter [facility] [address] [place] [address] Nick Barnard MD Discharge Disposition: Home or [...] Description 08/03/2025 9:00 AM EST Telemedicine [facility] Pulmonary Hypertension Clinic [address] [place] [address], 2nd Floor, [address] [place] [address] Nick Barnard MD [address] [place] [address] [address] [place] [address] [email or web address] Health Maintenance Due Date Last Done Comments [...] 08/12/2024 08/12/2023, 12/2022, 08/11/2023, Additional history exists RSV VACCINE (1 - Risk 50-74 years 1-dose series) 2024 ZOSTER VACCINES (1 of 2) 2024 INFLUENZA VACCINE (#1) 2025 , 05/11/2022, 07/09/2021 COVID-19 VACCINE ( season) 2025 [...] 03/22/2025 12:00 AM EDT OUTSIDE IMAGING 03/17/2025 BASIC METABOLIC PANEL STAT 08/12/2023 8:36 AM EST from Last 3 Months or Most Recently Relevant to Health Maintenance Results * US Cardiac Outside (No Interpretation) (03/22/2025 12:00 AM EDT) Narrative [facility] IMG INTERFACES - 04/08/2025 2:27 PM EDT This study is for PACS storage only and not for interpretation. us Nick Barnard MD IMG OUTSIDE IMAGING W/OUT INTERPRETATION Final Result [facility] IMG INTERFACES * Outside Imaging Report Only (03/17/2025) us Scanning Interface Provider IMG XR CHEST Alicia l Result * (ABNORMAL) Basic metabolic panel (08/12/2023 8:36 AM EST) SODIUM 136 135 - 145 mmol/L [facility] POTASSIUM 3.7 3.4 - 5.0 mmol/L [facility] CHLORIDE 98 98 - 108 mmol/L [facility] CO2 26 23 - 32 mmol/L [facility] BUN 16 8 - 25 mg/dL [facility] CREATININE 1.43 0.60 - 1.50 mg/dL [facility] GLUCOSE 193(H) 70 - 110 mg/dL [facility] CALCIUM 8.6 8.5 - 10.5 mg/dL [facility] EGFR 45(L) >59 mL/min/1. 73m2 [facility] Comment:Estimated glomerular filtration rate calculated using the CKD-EPI refit equation. ANION GAP 12 3 - 17 mmol/L [facility] Blood 08/12/2023 8:3 6 AM EST 08/12/2023 8:53 AM EST us Haydee Fajardo SPEEDBOAT DRIVER LAB BLOOD ORDERAB LES Final Result [facility] [address] [place] [address] from Last 3 Months or Most Recently Relevant to Health Maintenance [facility] Recurious [facility] Recurious [facility] Advance Directives For more information, please contact: [phone] (9AM - 5PM Natasha[facility], Friday-Friday) * Full Code (Latest Code Status on File) Date Activated Date Inactivated Comments 08/12/2023 8:12 AM Question Answer Comments Code Status Confirmed With: Patient Code Status Communicated To: Inpatient Attending * Full Code Date Activated Date Inactivated Comments 08/04/2023 7:15 PM 08/12/2023 8:12 AM Question Answer Comments Code Status Confirmed With: Patient Care Teams Textile Chemist Relationship Specialty Start Date End Date Deena Workman MD [address] [place] [address] [place] [address] PCP - General Internal Medicine 04/11/23 Additional Source Comments The information contained in this document represents components of the legal health record. It is not the complete legal health record.[facility]
--- OUTSIDE RECORDS SUMMARY | 2025-06-14 10:07 | XMS_ITS | Encounter Summary ---
Author Organization [facility] Address [address] [place] [address] [address] [place] [address] Phone Care Team Providers Care Observer Electrical Prospecting Name Role Phone Deena Workman MD Primary Care Provider Encounter Details Date Type Department Care Team (Late st Contact Info) Description 08/04/2023 Procedure Pass [facility] Cardiac Barrel Driller [address] [facility], [address] 9, [address] [place] [address] Social History Tobacco Use Types [...] 08/04/2023 6:37 PM Yolis Mann RN * [place] Suicide Severity Rating Scale (Screener/Recent Self-Report) Question [...] Info) Description 08/03/2025 9:00 AM EST Telemedicine [facility] Pulmonary Hypertension Clinic [address] [place] [address], 2nd Floor, [address] [place] [address] Nick Barnard MD [address] [place] [id number] [email or web address] documented as of this encounter Visit Diagnoses Not on filedocumented in this encounter Care Teams Observer Electrical Prospecting Relationship Specialty Start Date End Date Deena Wormkan MD [address] [place] [address] [place] [address] PCP - General Internal Medicine 04/11/23 documented as of this encounter Additional Source Comments The information contained in this document represents components of the legal health record. It is not the complete legal health record.[facility]
== END 2025-06-14 09:37 | disposition home or self-care (01) ==
LOC: HO.ACS 09:09
PROVIDERS: PCP Internal Medicine; Visit Provider Internal Medicine Medical Oncology
DX: Z79.01 Long term (current) use of anticoagulants (principal)

== ENCOUNTER → 2025-06-14 09:09 | Outpatient (BNVA) | payer OTHER, SELFPAY | PROVIDERS: PCP Internal Medicine; Visit Provider Internal Medicine Medical Oncology | DX: I26.99 Other pulmonary embolism without acute cor pulmonale (principal); Z79.01 Long term (current) use of anticoagulants; Z51.81 Encounter for therapeutic drug level monitoring | CPT/HCPCS: 85610; 99211 ==

== ENCOUNTER 2025-06-27 15:44 | Outpatient (AMB) | payer OTHER, SELFPAY ==
[2025-06-27 15:49] LABS: Prothrombin Time Whole Bld POC 23.4 sec (11.1-13.5); ~PT, ~INR - Anti Coag Clinic 1.9 (0.9-1.1)
--- NOTE | 2025-06-27 15:53 | MHC.OFFVISCO ---
Intake Intake Visit Reasons: Anticoagulation Allergies lisinopril (LISINOPRIL) Allergy (Severe, Verified 06/14/25 09:20) ANGIOEDEMA dapagliflozin (From FARXIGA) Allergy (Intermediate, Verified 06/14/25 09:20) HIVES erythromycin base (ERYTHROMYCIN BASE) Allergy (Intermediate, Verified 06/14/25 09:20) Hives liraglutide (From VICTOZA) Allergy (Intermediate, Verified 06/14/25 09:20) RASH amitriptyline (AMITRIPTYLINE) Adverse Reaction (Intermediate, Verified 06/14/25 09:20) lethargy metformin (METFORMIN) Adverse Reaction (Intermediate, Verified 06/14/25 09:20) GI UPSET to short acting form-is taking long acting & OK Nursing Note Pt to ACS 1 day early because she was at the hospital for her brother who pt states just in ICU. INR: 1.9 out of range of 2-3 Pt has not taken today's dose yet. No changes noted in health, diet, medications or supplement. Dose: Keep same dose of 2.5mg daily Retest: 07/11/25 Anti-Coag Initial Assessment Social Hx Patient Tobacco Use Status: Never used Tobacco alcohol intake: former Alcohol intake frequency: does not drink Cardiovascular Hx: HTN Lung Disease HX: DVT/PE Endocrine Hx: Thyroid Disease Musculoskeletal Hx: Arthritis Blood Disorder Hx: Anemia and Hyperlipidemia GI Hx: Ulcers, Diverticulosis and Hemorrhoids Hx: Other Neurological Hx: Migraines/Headaches and Other Cancer HX: No Psych. 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
== END 2025-06-27 15:57 | disposition home or self-care (01) ==
LOC: HO.ACS 15:44
PROVIDERS: PCP Internal Medicine; Visit Provider Internal Medicine Medical Oncology
DX: Z79.01 Long term (current) use of anticoagulants (principal)

== ENCOUNTER → 2025-06-27 15:44 | Outpatient (BNVA) | payer OTHER, SELFPAY | PROVIDERS: PCP Internal Medicine; Visit Provider Internal Medicine Medical Oncology | DX: Z86.711 Personal history of pulmonary embolism (principal); Z51.81 Encounter for therapeutic drug level monitoring; Z79.01 Long term (current) use of anticoagulants | CPT/HCPCS: 85610; 99211 ==

== ENCOUNTER 2025-07-12 13:38 | Outpatient (AMB) | payer OTHER, SELFPAY ==
[2025-07-12 13:44] LABS: Prothrombin Time Whole Bld POC 19.0 sec (11.1-13.5); ~PT, ~INR - Anti Coag Clinic 1.6 (0.9-1.1)
--- NOTE | 2025-07-12 14:17 | MHC.OFFVISCO ---
Intake Intake Visit Reasons: Anticoagulation Allergies lisinopril (LISINOPRIL) Allergy (Severe, Verified 07/12/25 13:38) ANGIOEDEMA dapagliflozin (From FARXIGA) Allergy (Intermediate, Verified 07/12/25 13:38) HIVES erythromycin base (ERYTHROMYCIN BASE) Allergy (Intermediate, Verified 07/12/25 13:38) Hives liraglutide (From VICTOZA) Allergy (Intermediate, Verified 07/12/25 13:38) RASH amitriptyline (AMITRIPTYLINE) Adverse Reaction (Intermediate, Verified 07/12/25 13:38) lethargy metformin (METFORMIN) Adverse Reaction (Intermediate, Verified 07/12/25 13:38) GI UPSET to short acting form-is taking long acting & OK Medication List - Last Reconciled 07/12/25 by Francine Mitchell RN acetaminophen ER 650 mg PO Q6H PRN albuterol sulfate 2.5 mg inhalation Q4H PRN albuterol sulfate 90 mcg/actuation (Ventolin HFA) 2 puffs inhalation Q6H PRN blood sugar diagnostic (FreeStyle Lite Strips) As directed blood-glucose meter (FreeStyle Lite Meter kit) Use daily As directed to check blood sugars compress.stocking,knee,reg,med 15-20 cm ferrous gluconate 324 mg PO DAILY furosemide (Lasix) 20 mg PO DAILY 90 days galcanezumab-gnlm (Emgality Pen) 120 mg subcut QMONTH hydroxychloroquine (Plaquenil) 200 mg PO DAILY 30 days levothyroxine 50 mcg PO QAM nebulizers As directed Oxygen Home Use As directed rosuvastatin 10 mg PO BEDTIME sertraline 100 mg PO DAILY sildenafil (pulm.hypertension) 20 mg PO TID tirzepatide (Mounjaro) 15 mg (0.5 mL) subcut QWEEK warfarin 5 mg See Protocol PO DAILY 30 days Nursing Note INR: 1.6 out of therapeutic range of 2-3 Medications and supplements reviewed Patient status: no changes in health. I question if pt missed a dose as she has been grieving the of her brother 2 weeks ago. She denies missed dose. Medications or supplements: no changes Diet: usual diet for pt Denies any signs and symptoms of bleeding or clotting or unusual bruising Bleeding, bruising, clotting discussed Nutritional guidance given: to avoid greens X 2 days and to have a serving of foods that raise the INR X 2 days Dose: increase today's dose to 5mg (usual 2.5mg) then 2.5mg daily F/U INR Date: 1 week?? Patient verbalizing understanding of instructions with read back given. Anti-Coag Initial Assessment Social Hx Patient Tobacco Use Status: Never used Tobacco alcohol intake: former Alcohol intake frequency: does not drink Cardiovascular Hx: HTN Lung Disease HX: DVT/PE Endocrine Hx: Thyroid Disease Musculoskeletal Hx: Arthritis Blood Disorder Hx: Anemia and Hyperlipidemia GI Hx: Ulcers, Diverticulosis and Hemorrhoids Hx: Other Neurological Hx: Migraines/Headaches and Other Cancer HX: No Psych. 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
--- OUTSIDE RECORDS SUMMARY | 2025-07-12 16:39 | XMS_ITS | Clinical Summary ---
Author Organization [facility] Address [address] [place] [address] Phone Care Team Providers Care Verifier Name Role Phone Deena Workman MD Primary Care Provider Allergies Active Allergy Reactions Criticality Noted Date Comments Amitriptyline Hcl Other (See Comments) 08/01/20 23 [place] drugged Dapagliflozin 05/08/2023 Erythromycin 05/08/2023 Liraglutide 05/08/2023 [...] Active ferrous sulfate 324 mg (65 mg [place] iron) TbEC Take 324 mg by mouth [...] 04/11/2025 Ancillary Orders [facility] [address] [place] [address] Nick Barnard MD 04/11/2025 Ancillary Orders [facility] [address] [place] [address] Nick Barnard MD from Last 3 Months Family History Medical [...] 08/03/2025 9:00 AM EST Telemedicine [facility] [address] [place] [address], 2nd Floor, [address] [place] [address] Nick Barnard MD [address] [place] [address] [address] [place] [address] [email or web address] Health Maintenance Due Date Last Done Comments [...] (#1) 2025 3, 05/11/2022, 07/09/2021 COVID-19 VACCINE (2024- season) 2025 07/25/2022, 07/25/2021, 03/08/2021, Additional history [...] Procedure Name Priority Date/Time Associated Diagnosis Comments BASIC METABOLIC PANEL (BMP) STAT 08/12/2023 8:36 AM EST from Last 3 Months or Most Recently Relevant to Health Maintenance Results * (ABNORMAL) Basic metabolic panel (08/12/2023 8:36 AM EST) SODIUM 136 135 - 145 mmol/L [facility] POTASSIUM 3.7 3.4 - 5.0 mmol/L [facility] CHLORIDE 98 98 - 108 mmol/L [facility] CO2 26 23 - 32 mmol/L [facility] BUN 16 8 - 25 mg/dL [facility] CREATININE 1.43 0.60 - 1.50 mg/dL [facility] GLUCOSE 193(H) 70 - 110 mg/dL [facility] CALCIUM 8.6 8.5 - 10.5 mg/dL [facility] EGFR 45(L) >59 mL/min/1. 73m2 [facility] Comment:Estimated glomerular filtration rate calculated using the CKD-EPI refit equation. ANION GAP 12 3 - 17 mmol/L [facility] Blood 08/12/2023 8:36 AM EST 08/12/2023 8:53 AM EST us Haydee Fajardo ASSAYER LAB BLOOD BKR ORD ERABLES Final Result [address] [address] from Last 3 Months or Most Recently Relevant to Health Maintenance Insurance [employer] [facility] [facility] [employer] [facility] [employer] [facility] Advance Directives For more information, please contact: [phone] (9AM - 5PM Natasha/[facility], Friday-Friday) * Full Code (Latest Code Status on File) Date Activated Date Inactivated Comments 08/12/2023 8:12 AM Question Answer Comments Code Status Confirmed With: Patient Code Status Communicated To: Inpatient Attending * Full Code Date Activated Date Inactivated Comments 08/04/2023 7:15 PM 08/12/2023 8:12 AM Question Answer Comments Code Status Confirmed With: Patient Care Teams Verifier Relationship Specialty Start Date End Date Deena Workman MD [address] [place] [address] Dr [place] [phone] PCP - General Internal Medicine 04/11/23 Additional Source Comments The information contained in this document represents components of the legal health record. It is not the complete legal health record.[facility]
--- OUTSIDE RECORDS SUMMARY | 2025-07-12 16:39 | XMS_ITS | Encounter Summary ---
Author Organization [facility] Address [address] [place] [address] [address] [place] [address] Phone Care Team Providers Care Physician Surgeon Name Role Phone Deena Workman MD Primary Care Provider Encounter Details Date Type Department Care Team (Late st Contact Info) Description 05/29/2023 Procedure Pass [facility] Cardiac Pattern Weaver 55 [facility], Floor 9, [address] [place] [phone] Social History Tobacco Use Types Packs/Day Years [...] Info) Description 08/03/2025 9:00 AM EST Telemedicine [facility] [address] [facility], 2nd Floor, [address] [place] [address] Nick Barnard MD [address] [place] [address] [email or web address] documented as of this encounter Visit Diagnoses Not on filedocumented in this encounter Care Teams Physician Surgeon Relationship Specialty Start Date End Date Deena Workman MD [address] [place] [address] [place] [phone] PCP - General Internal Medicine 04/11/23 documented as of this encounter Additional Source Comments The information contained in this document represents components of the legal health record. It is not the complete legal health record.[facility]
--- OUTSIDE RECORDS SUMMARY | 2025-07-12 16:39 | XMS_ITS | Encounter Summary ---
Author Organization [facility] Address [address] [place] [address] [place] [address] Phone Care Team Providers Care Safety Teacher Name Role Phone Deena Workman MD Primary Care Provider Encounter Details Date Type Department Care Team (Late st Contact Info) Description 04/25/[address] [facility] [place] [place], [place] [address] [facility], 2nd Floor, [address] [place] [address] Social History Tobacco Use Types Packs/Day Years [...] Description 08/03/2025 9:[address] [facility] [address] [facility], 2nd Floor, [address] [place] [address] Nick Barnard MD [address] [place] [address] [email or web address] documented as of this encounter Visit Diagnoses Not on filedocumented in this encounter Care Teams Safety Teacher Relationship Specialty Start Date End Date Deena Workman MD [address] [place] [address] [place] [address] PCP - General Internal Medicine 04/11/23 documented as of this encounter Additional Source Comments The information contained in this document represents components of the legal health record. It is not the complete legal health record.[facility]
--- OUTSIDE RECORDS SUMMARY | 2025-07-12 16:39 | XMS_ITS | Clinical Summary ---
Author Organization [facility] it Address [address] [place] [address] Care Team Providers Care Test Lead Application Testing Name Role Phone Unavailable Primary Care Provider [...] Documents on File Type Date Recorded Patient Examination Supervisor Expl anation Health Care Decision (hx) 10/31/2020 YASMANY LONG DIRECTIVE
--- OUTSIDE RECORDS SUMMARY | 2025-07-12 16:39 | XMS_ITS | Encounter Summary ---
Author Organization [facility] Address [address] [place] [address] [address] [place] [address] Phone Care Team Providers Care Heavy Rail Train Operator Name Role Phone Deena Workman MD Primary Care Provider Reason for Referral * Outpatient Procedure - Closed Specialty Diagnoses / Procedures Referred By Contac t Referred To Contact Radiology Diagnoses Dyspnea, unspecified Pulmonary embolism Procedures NM Lung Perfusion Imaging NM Lung Ventilation and Perfusion Imaging NM Lung Perfusion and Ventilation Differential Quantification NM Lung Perfusion Imaging NM Lung Ventilation and Perfusion Imaging GA PULMONARY VENTILATION & PERFUSION IMAGING GA QUANT DIFF PULM PRFUSION & VENTLAJ W/WO IMAGING Nick Barnard MD Phone: tel: fax: mailto:[email or web address] Referral ID Status Reason Start Date Expiration Date Visits Re quested Visits Authorized [id number] Closed 08/14/2023 1 1 Encounter Details Date Type Department Care Team (Late st Contact Info) Description 10/13/2023 Ancillary Orders [facility] [address] [facility], 2nd Floor, [address] [place] [address] Nick Barnard MD [address] [place] [address] [address] [place] [address] ROBERTO@ [email or web address] Dyspnea, unspecified (Primary Dx); Pulmonary [...] Info) Description 08/03/2025 9:00 AM EST Telemedicine [facility] [address] [place] [address], 2nd Floor, [address] [place] [address] Nick Barnard MD [address] [place], [place] [phone] [place] [address] ROBERTO@[email or web address] documented as of this encounter Results [...] infarction documented in this encounter Care Teams Heavy Rail Train Operator Relationship Specialty Start Date End Date Deena Workman MD [address] [place] [address] [place] [address] PCP - General Internal Medicine 04/11/23 documented as of this encounter Additional Source Comments The information contained in this document represents components of the legal health record. It is not the complete legal health record.[facility]
--- OUTSIDE RECORDS SUMMARY | 2025-07-12 16:40 | XMS_ITS | Encounter Summary ---
Author Organization [facility] Address [address] [place] [address] [address] [place] [address] Phone Care Team Providers Care Global Commodity Manager Name Role Phone Deena Workman MD Primary Care Provider Encounter Details Date Type Department Care Team (Late st Contact Info) Description 08/04/2023 Procedure Pass [facility] Cardiac Electrical Apprentice 55 [facility], Floor 9, [address] [place] [address] Social History Tobacco Use Types [...] 08/04/2023 6:37 PM Yolis Mann RN * [place] Suicide Severity Rating Scale (Screener/Recent Self-Report) Question [...] Info) Description 08/03/2025 9:00 AM EST Telemedicine [facility] Clinic [address] [place] [address], 2nd Floor, [address] [place] [address] Nick Barnard MD [address] [place] [address] [email or web address] documented as of this encounter Visit Diagnoses Not on filedocumented in this encounter Care Teams Global Commodity Manager Relationship Specialty Start Date End Date Deena Workman MD [address] [place] [address] [place] [address] PCP - General Internal Medicine 04/11/23 documented as of this encounter Additional Source Comments The information contained in this document represents components of the legal health record. It is not the complete legal health record.[facility]
--- OUTSIDE RECORDS SUMMARY | 2025-07-12 16:40 | XMS_ITS | Encounter Summary ---
Author Organization [facility] Address [address] [place] [address] [address] [place] [address] Phone Care Team Providers Care Multilith Operator Name Role Phone Deena Workman MD Primary Care Provider Encounter Details Date Type Department Care Team (Late st Contact Info) Description 08/11/2023 Procedure Pass [facility] Cardiac Examining Officer 55 [facility], Floor 9, [address] [place] [address] Social History Tobacco Use Types [...] 10:00 PM EST Ab Hyman RN * [place] Suicide Severity Rating Scale (Screener/Recent Self-Report) Question Answer Date of Assessment Author 1. Wish to be (Past 1 Month) No 08/11/2023 10:00 PM Ab Lopez RN 2. Non-Specific Active Suicidal Thoughts (Past 1 Month) No 08/11/2023 10:00 PM Ab Lopez RN 6. Suicidal Behavior (Lifetime) No 08/11/2023 10:00 PM bA Lopez RN documented as of this encounter Plan of Treatment Upcoming Encounters Date Type Department Care Team (Late st Contact Info) Description 08/03/2025 9:00 AM EST Telemedicine [facility]pertension Clinic [address] [place] [address], 2nd Floor, [address] [place] [address] Nick Barnard MD [address] [place], [place] [phone] [place] [address] ROBERTO@[email or web address] documented as of this encounter Visit Diagnoses Not on filedocumented in this encounter Care Teams Multilith Operator Relationship Specialty Start Date End Date Deena Workman MD [address] [place] [address] [place] [address] PCP - General Internal Medicine 04/11/23 documented as of this encounter Additional Source Comments The information contained in this document represents components of the legal health record. It is not the complete legal health record.[facility]
== END 2025-07-12 14:33 | disposition home or self-care (01) ==
LOC: HO.ACS 13:38
PROVIDERS: PCP Internal Medicine; Visit Provider Internal Medicine Medical Oncology
DX: Z79.01 Long term (current) use of anticoagulants (principal)

== ENCOUNTER → 2025-07-12 13:38 | Outpatient (BNVA) | payer OTHER, SELFPAY | PROVIDERS: PCP Internal Medicine; Visit Provider Internal Medicine Medical Oncology | DX: I26.99 Other pulmonary embolism without acute cor pulmonale (principal); Z79.01 Long term (current) use of anticoagulants; Z51.81 Encounter for therapeutic drug level monitoring | CPT/HCPCS: 85610; 99211 ==

== ENCOUNTER 2025-07-19 14:06 | Outpatient (AMB) | payer OTHER, SELFPAY ==
[2025-07-19 14:33] LABS: Prothrombin Time Whole Bld POC 32.3 sec (11.1-13.5); ~PT, ~INR - Anti Coag Clinic 2.7 (0.9-1.1)
--- NOTE | 2025-07-19 14:41 | MHC.OFFVISCO ---
Intake Intake Visit Reasons: Anticoagulation Allergies lisinopril (LISINOPRIL) Allergy (Severe, Verified 07/19/25 14:28) ANGIOEDEMA dapagliflozin (From FARXIGA) Allergy (Intermediate, Verified 07/19/25 14:28) HIVES erythromycin base (ERYTHROMYCIN BASE) Allergy (Intermediate, Verified 07/19/25 14:28) Hives liraglutide (From VICTOZA) Allergy (Intermediate, Verified 07/19/25 14:28) RASH amitriptyline (AMITRIPTYLINE) Adverse Reaction (Intermediate, Verified 07/19/25 14:28) lethargy metformin (METFORMIN) Adverse Reaction (Intermediate, Verified 07/19/25 14:28) GI UPSET to short acting form-is taking long acting & OK Nursing Note INR: 2.7 in therapeutic range- previous low INRs 1.6 and 1.9 *Doing better with grieving loss of brother Cortisone injection knee 07/25/25 Medications and supplements reviewed No changes in medications, or supplements, Denies any signs and symptoms of bleeding or bruising or clotting. Bleeding, bruising, clotting discussed Nutritional guidance given - 2 greens / week Tue and Sate Dose: 5MG X 1 DAY/ 2.5MG X 6 DAYS F/U INR: 07/29/25 after knee injection Patient verbalizes understanding of instructions given Anti-Coag Initial Assessment Social Hx Patient Tobacco Use Status: Never used Tobacco alcohol intake: former Alcohol intake frequency: does not drink Cardiovascular Hx: HTN Lung Disease HX: DVT/PE Endocrine Hx: Thyroid Disease Musculoskeletal Hx: Arthritis Blood Disorder Hx: Anemia and Hyperlipidemia GI Hx: Ulcers, Diverticulosis and Hemorrhoids Hx: Other Neurological Hx: Migraines/Headaches and Other Cancer HX: No Psych. 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
--- OUTSIDE RECORDS SUMMARY | 2025-07-19 15:46 | XMS_ITS | Encounter Summary ---
Author Organization [facility] Address [address] [place] [address] [address] [place] [address] Phone Care Team Providers Care School Of Nursing Director Name Role Phone Deena Workman MD Primary Care Provider Reason for Referral * Outpatient Procedure - Closed Specialty Diagnoses / Procedures Referred By Contac t Referred To Contact Radiology Diagnoses Dyspnea, unspecified Pulmonary embolism Procedures NM Lung Perfusion Imaging NM Lung Ventilation and Perfusion Imaging NM Lung Perfusion and Ventilation Differential Quantification NM Lung Perfusion Imaging NM Lung Ventilation and Perfusion Imaging IN PULMONARY VENTILATION & PERFUSION IMAGING IN QUANT DIFF PULM PRFUSION & VENTLAJ W/WO IMAGING Nick Barnard MD Phone: tel: fax: mailto:[email or web address] Referral ID Status Reason Start Date Expiration Date Visits Re quested Visits Authorized [id number] Closed 08/14/2023 1 1 Encounter Details Date Type Department Care Team (Late st Contact Info) Description 10/13/2023 Ancillary Orders [facility] [address] [facility], 2nd Floor, [address] [place] [address] Nick Barnard MD [address] [place] [address] [address] [place] [address] ROBERTO@ [email or web address] Dyspnea, unspecified (Primary Dx); Pulmonary embolism Social [...] Info) Description 08/03/2025 9:00 AM EST Telemedicine [facility] Clinic [address] [place] [address], 2nd Floor, [address] [place] [address] Nick Barnard MD [address] [place], [place] [phone] [place] [address] ROBERTO@[email or web address] documented as of this encounter Results * [...] infarction documented in this encounter Care Teams School Of Nursing Director Relationship Specialty Start Date End Date Deena Workman MD [address] [place] [address] [place] [address] PCP - General Internal Medicine 04/11/23 documented as of this encounter Additional Source Comments The information contained in this document represents components of the legal health record. It is not the complete legal health record.[facility]
--- OUTSIDE RECORDS SUMMARY | 2025-07-19 15:46 | XMS_ITS | Encounter Summary ---
Author Organization [facility] Address [address] [place] [address] [address] [place] [address] Phone Care Team Providers Care Photographer Aerial Name Role Phone Deena Workman MD Primary Care Provider Encounter Details Date Type Department Care Team (Late st Contact Info) Description 05/29/2023 Procedure Pass [facility] Cardiac Gymnastic Teacher 55 [facility], Floor 9, [address] [place] [address] Social History Tobacco Use Types Packs/Day Years [...] 08/03/2025 9:00 AM EST Telemedicine [facility] 55 [facility], 2nd Floor, [address] [place] [address] Nick Barnard MD [address] [place] [address] [email or web address] documented as of this encounter Visit Diagnoses Not on filedocumented in this encounter Care Teams Photographer Aerial Relationship Specialty Start Date End Date Deena Workman MD [address] [place] [address] [place] [address] PCP - General Internal Medicine 04/11/23 documented as of this encounter Additional Source Comments The information contained in this document represents components of the legal health record. It is not the complete legal health record.[facility]
--- OUTSIDE RECORDS SUMMARY | 2025-07-19 15:46 | XMS_ITS | Clinical Summary ---
Author Organization [facility] it Address [address] [place] [address] Care Team Providers Care Gritting Machine Operator Name Role Phone Unavailable Primary Care [...] Documents on File Type Date Recorded Patient Crosscutter Rolled Glass Expl anation Health Care Decision (hx) 10/31/2020 YASMANY LONG DIRECTIVE
--- OUTSIDE RECORDS SUMMARY | 2025-07-19 15:46 | XMS_ITS | Clinical Summary ---
Author Organization [facility] Address [address] [place] [address] Phone Care Team Providers Care Manager Utilities Name Role Phone Deena Workman MD Primary Care Provider Allergies Active Allergy Reactions Criticality Noted Date Comments Amitriptyline Hcl Other (See Comments) 08/01/20 23 [place] drugged Dapagliflozin 05/08/2023 Erythromycin 05/08/2023 Liraglutide 05/08/2023 [...] Active ferrous sulfate 324 mg (65 mg [place] iron) TbEC Take 324 mg by mouth [...] 08/11/[address] [place] Saldivar/[place]ano Family History Medical History Relation Comments Deep [...] Info) Description 08/03/2025 9:00 AM EST Telemedicine [facility] [address] [place] [address], 2nd Floor, [address] [place] [address] Nick Barnard MD [address] [place], [place] [phone] [place] [address] [email or web address] Health Maintenance Due Date Last Done [...] patient's age to complete this topic IPV VACCINES Aged Out No longer eligi ble [...] EST) SODIUM 136 135 - 145 mmol/L [facility] POTASSIUM 3.7 3.4 - 5.0 mmol/L [facility] CHLORIDE 98 98 - 108 mmol/L [facility] CO2 26 23 - 32 mmol/L [facility] BUN 16 8 - 25 mg/dL [facility] CREATININE 1.43 0.60 - 1.50 mg/dL [facility] GLUCOSE 193(H) 70 - 110 mg/dL [facility] CALCIUM 8.6 8.5 - 10.5 mg/dL [facility] EGFR 45(L) >59 mL/min/1. 73m2 [facility] Comment:Estimated glomerular filtration rate calculated using the CKD-EPI refit equation. ANION GAP 12 3 - 17 mmol/L [facility] Blood 08/12/2023 8:36 AM EST 08/12/2023 8:53 AM EST us Haydee Fajardo INDUSTRIAL ENGINEERING ANALYST LAB BLOOD BKR ORD ERABLES Final Result [address] [address] from Last 3 Months or Most Recently Relevant to Health Maintenance Insurance Zounds Hearing Aids O [employer] Hearing Aids O Zounds Hearing Aids O [facility] Advance Directives For more information, please contact: [phone] (9AM - 5PM Natasha/[facility], Friday-Friday) * Full Code (Latest Code Status on File) Date Activated Date Inactivated Comments 08/12/2023 8:12 AM Question Answer Comments Code Status Confirmed With: Patient Code Status Communicated To: Inpatient Attending * Full Code Date Activated Date Inactivated Comments 08/04/2023 7:15 PM 08/12/2023 8:12 AM Question Answer Comments Code Status Confirmed With: Patient Care Teams Manager Utilities Relationship Specialty Start Date End Date Deena Workman MD [address] [place] [address] [place] [address] PCP - General Internal Medicine 04/11/23 Additional Source Comments The information contained in this document represents components of the legal health record. It is not the complete legal health record.[facility]
--- OUTSIDE RECORDS SUMMARY | 2025-07-19 15:46 | XMS_ITS | Encounter Summary ---
Author Organization [facility] Address [address] [place] [address] [place] [address] Phone Care Team Providers Care Texturing Machine Fixer Name Role Phone Deena Workman MD Primary Care Provider Encounter Details Date Type Department Care Team (Late st Contact Info) Description 04/25/2023 Procedure Pass [facility] [place], [place] 2 55 [facility], 2nd Floor, [address] [place] [address] Social History Tobacco Use Types Packs/Day Years [...] Info) Description 08/03/2025 9:00 AM EST Telemedicine [facility]pertension Clinic [address] [facility], 2nd Floor, [address] [place] [address] Nick Barnard MD [address] [place] [address] [email or web address] documented as of this encounter Visit Diagnoses Not on filedocumented in this encounter Care Teams Texturing Machine Fixer Relationship Specialty Start Date End Date Deena Workman MD [address] [place] [address] [place] [address] PCP - General Internal Medicine 04/11/23 documented as of this encounter Additional Source Comments The information contained in this document represents components of the legal health record. It is not the complete legal health record.[facility]
--- OUTSIDE RECORDS SUMMARY | 2025-07-19 15:46 | XMS_ITS | Encounter Summary ---
Author Organization [facility] Address [address] [place] [address] [address] [place] [address] Phone Care Team Providers Care Mental Health Counselor Name Role Phone Deena Workman MD Primary Care Provider Encounter Details Date Type Department Care Team (Late st Contact Info) Description 08/11/2023 Procedure Pass [facility] [place]iac Lead Injection Mold Technician [address] [facility], Floor 9, [address] [place] [address] Social History Tobacco Use Types [...] 10:00 PM EST Ab Hyman RN * [place] Suicide Severity Rating Scale (Screener/Recent Self-Report) Question [...] [facility] [address] [place] [address], 2nd Floor, [address] [place] [address] Nick Barnard MD [address] [place], [place] [id number] [place] [address] [email or web address] documented as of this encounter Visit Diagnoses Not on filedocumented in this encounter Care Teams Mental Health Counselor Relationship Specialty Start Date End Date Deena Workman MD [address] [place] [address] [place] [address] PCP - General Internal Medicine 04/11/23 documented as of this encounter Additional Source Comments The information contained in this document represents components of the legal health record. It is not the complete legal health record.[facility]
--- OUTSIDE RECORDS SUMMARY | 2025-07-19 15:46 | XMS_ITS | Encounter Summary ---
Author Organization [facility] Address [address] [place] [address] [address] [place] [address] Phone Care Team Providers Care Legal Secretary Receptionist Name Role Phone Deena Workman MD Primary Care Provider Encounter Details Date Type Department Care Team (Late st Contact Info) Description 08/04/2023 Procedure Pass [facility] Cardiac Youth Probation Officer [address] [facility], Floor 9, [address] [place] [address] Social History Tobacco Use Types [...] 08/04/2023 6:37 PM Yolis Mann RN * [place] Suicide Severity Rating Scale (Screener/Recent Self-Report) Question [...] Info) Description 08/03/2025 9:00 AM EST Telemedicine [facility] Clinic [address] [place] [address], 2nd Floor, [address] [place] [address] Nick Barnard MD [address] [place] [id number] [email or web address] documented as of this encounter Visit Diagnoses Not on filedocumented in this encounter Care Teams Legal Secretary Receptionist Relationship Specialty Start Date End Date Deena Workman MD [address] [place] [address] [place] [address] PCP - General Internal Medicine 04/11/23 documented as of this encounter Additional Source Comments The information contained in this document represents components of the legal health record. It is not the complete legal health record.[facility]
== END 2025-07-19 14:48 | disposition home or self-care (01) ==
LOC: HO.ACS 14:06
PROVIDERS: PCP Internal Medicine; Visit Provider Internal Medicine Medical Oncology
DX: Z79.01 Long term (current) use of anticoagulants (principal)

== ENCOUNTER → 2025-07-19 14:06 | Outpatient (BNVA) | payer OTHER, SELFPAY | PROVIDERS: PCP Internal Medicine; Visit Provider Internal Medicine Medical Oncology | DX: Z86.711 Personal history of pulmonary embolism (principal); Z51.81 Encounter for therapeutic drug level monitoring; Z79.01 Long term (current) use of anticoagulants | CPT/HCPCS: 85610; 99211 ==

== ENCOUNTER 2025-07-25 13:39 | Outpatient (REF) | payer OTHER, SELFPAY | END 2025-07-25 13:40 | disposition home or self-care (01) | LOC: HO.HOSX 13:39 | PROVIDERS: Visit Provider Physician Assistant | DX: Z13.89 Encounter for screening for other disorder (principal) ==

== ENCOUNTER 2025-08-01 13:31 | Outpatient (AMB) | payer OTHER, SELFPAY ==
--- NOTE | 2025-08-01 13:40 | A.OFFVIS_ITS ---
Vital Signs 08/01/25 13:42 Height 5 ft 5 in Weight 256 lb BMI 42.6 BP 124/80 Blood Pressure Location Lt brachial Position Sitting Pulse 87 Pulse Source Pulse Oximeter Pulse Oximetry (%) 97 Oxygen Delivery Method Room Air Intake Visit Reasons: DM Intake Note: Patient present today for Type 2 Diabetes Mellitus Last Diabetic eye exam: Last exam was in 12/07/24 Last Podiatry Visit: Doesn't have one Random Glucose: 141 mg/dl HgA1C: 6.4% 06/01/25 Hospital Manager Required: No Accompanied by: Self / Same As Patient Allergies lisinopril (LISINOPRIL) Allergy (Severe, Verified 08/01/25 13:46) ANGIOEDEMA dapagliflozin (From FARXIGA) Allergy (Intermediate, Verified 08/01/25 13:46) HIVES erythromycin base (ERYTHROMYCIN BASE) Allergy (Intermediate, Verified 08/01/25 13:46) Hives liraglutide (From VICTOZA) Allergy (Intermediate, Verified 08/01/25 13:46) RASH amitriptyline (AMITRIPTYLINE) Adverse Reaction (Intermediate, Verified 08/01/25 13:46) lethargy metformin (METFORMIN) Adverse Reaction (Intermediate, Verified 08/01/25 13:46) GI UPSET to short acting form-is taking long acting & OK HPI HPI DM: Details: Patient is a 49 year old with type 2 diabetes, history of multinodular goiter, hypertension, hypothyroidism, mixed hyperlipidemia, history of a PE, 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 Endo: Dm- Initially diagnosed with T2DM in >10 yrs . Her A1c is 6.4. She is currently on Mounjaro 15 mg She is recently frustrated with her weight gain. She recently had her brother last month and has had some increased life stressors. She is working on making diet and lifestyle modifications in his motivated to lose the weight again. Previous meds:victoza-?rash, trulicity was expensive/ineffective, ozempic was ineffective, farxiga-hives Family history of T2DM in paternal grandmother no one else with diabetes . Thyroid-s/p right thyroidectomy 02/2024-follicular adenoma-Hurthle cell predominance. On levothyroxine 50 mcg CV: Blood pressure today in the office is 124/80. She is currently on furosemide 20 mg. Compliant with rosuvastatin 10 mg. Last LDL is at goal. On chronic anticoagulation. Nephrology: stable ckd, follows with nephrology [facility] Medical History Migraine without aura CKD (chronic kidney disease) stage 4, GFR 15-29 ml/min PPD positive, treated Hx of angiography IBS (irritable bowel syndrome) Lymphedema Pleurisy with effusion Pulmonary hypertension Hypercoagulable state Thyroid cancer Chronic thromboembolic disease Lower extremity edema Multinodular thyroid Family history of deep venous thrombosis Pleuritic chest pain Dyspareunia in female Anemia Obstructive sleep apnea Morbid obesity History of COVID-19 (~2020) History of pulmonary embolus (PE) (~2020) Anxiety Chronic headaches Dyspnea on exertion Diabetes type 2, controlled Hypothyroid HTN (hypertension) Hyperlipidemia Surgical History Hx of partial thyroidectomy H/O colonoscopy History of surgery on right wrist History of foot surgery History of tubal ligation History of carpal tunnel surgery History of ERCP History of laparoscopic cholecystectomy History of surgery Family History Father Myocardial infarction COPD (chronic obstructive pulmonary disease) Mother COPD (chronic obstructive pulmonary disease) Brother Colitis Daughter Headache Social History (Updated 05/18/25 @ 09:36 by Monique Jones CNP) Housing: House Are you a primary primary care nurse practitioner to a significant other at home: No Do you presently have visiting nurse or other home services: Yes (home services for oxygen) Alcohol intake: former Comment: pt d/c home Patient Tobacco Use Status: Never used Tobacco service: No Current occupational status: unemployed Current occupational exposures/hazards: No Physical Exam Const Orientation/consciousness: patient oriented x3 HEENT Ears: hearing grossly normal bilaterally Neck Thyroid: Thyroid normal Lymphatic: no lymphadenopathy noted Resp Auscultation: clear to auscultation bilaterally Cardio Rate: regular rate Rhythm: regular rhythm Heart sounds: S1 normal heart sound present and S2 normal heart sound present Skin General skin exam: no rashes or lesions noted Neuro General: patient oriented x3, gait normal and no focal motor deficits Results Reviewed Results Reviewed: Laboratory Tests 06/01/25 09:08 Creatinine 1.19 Estimated GFR 48 Hemoglobin A1c % 6.4 H AST 25 ALT 20 Assessment & Plan Assessment & Plan (1) T2DM (type 2 diabetes mellitus): Code(s): E11.9 - Type 2 diabetes mellitus without complications Category: Medical Qualifiers: Diabetes mellitus complication status: without complication Diabetes mellitus fci insulin use: without tank terminal gauger use Qualified Code(s): E11.9 - Type 2 diabetes mellitus without complications Plan: Continue Mounjaro 15 mg weekly Follow up in 3 months. Sooner if needed (2) Severe obesity (BMI 35.0-39.9) with comorbidity: Code(s): E66.01 - Morbid (severe) obesity due to excess calories Category: Medical Plan: We discussed diet changes, applications that she can download on her phone to help with motivation and diet tracking I have encouraged more physical activity. She declines referral to a firewall engineer at this point and we will do a follow up in a few months. Coding Level of Care Code Est Pt Level 4 (58238) Diagnoses Type 2 diabetes mellitus without complication, without long-term current use of insulin E11.9 Diabetes mellitus complication status: without complication Diabetes mellitus fci insulin use: without tank terminal gauger use Severe obesity (BMI 35.0-39.9) with comorbidity E66.01
[2025-08-01 13:42] VITALS: BP 124/80; PULSE 87; O2SAT 97; BMI 42.6
[2025-08-01 13:53] LABS: Glucose, Whole Blood 141 mg/dL (60-115)
--- OUTSIDE RECORDS SUMMARY | 2025-08-01 18:18 | XMS_ITS | Encounter Summary ---
Author Organization [facility] Address [address] [place] [address] [address] [place] [address] Phone Care Team Providers Care Nut Sheller Name Role Phone Deena Workman MD Primary Care Provider Encounter Details Date Type Department Care Team (Late st Contact Info) Description 08/11/2023 Procedure Pass [facility] Cardiac Adaptive Physical Education Teacher [address] [facility], Floor 9, [address] [place] [address] Social History Tobacco Use Types [...] 10:00 PM EST Ab Hyman RN * [place] Suicide Severity Rating Scale (Screener/Recent Self-Report) Question [...] Info) Description 08/03/2025 9:00 AM EST Telemedicine [facility] Pul[facility]pertension Clinic [address] [place] [address], 2nd Floor, [address] [place] [address] Nick Barnard MD [address] [place], [place] [phone] [place] [address] [email or web address] documented as of this encounter Visit Diagnoses Not on filedocumented in this encounter Care Teams Nut Sheller Relationship Specialty Start Date End Date Deena Workman MD [address] [place] [address] [place] [address] PCP - General Internal Medicine 04/11/23 documented as of this encounter Additional Source Comments The information contained in this document represents components of the legal health record. It is not the complete legal health record.[facility]
--- OUTSIDE RECORDS SUMMARY | 2025-08-01 18:18 | XMS_ITS | Encounter Summary ---
Author Organization [facility] Address [address] [place] [address] [address] [place] [address] Phone Care Team Providers Care Film Technician Name Role Phone Deena Workman MD Primary Care Provider Reason for Referral * Outpatient Procedure - Closed Specialty Diagnoses / Procedures Referred By Contac t Referred To Contact Radiology Diagnoses Dyspnea, unspecified Pulmonary embolism Procedures NM Lung Perfusion Imaging NM Lung Ventilation and Perfusion Imaging NM Lung Perfusion and Ventilation Differential Quantification NM Lung Perfusion Imaging NM Lung Ventilation and Perfusion Imaging LA PULMONARY VENTILATION & PERFUSION IMAGING LA QUANT DIFF PULM PRFUSION & VENTLAJ W/WO IMAGING Nick Barnard MD Phone: tel: fax: mailto:[email or web address] Referral ID Status Reason Start Date Expiration Date Visits Re quested Visits Authorized [id number] Closed 08/14/2023 1 1 Encounter Details Date Type Department Care Team (Late st Contact Info) Description 10/13/2023 Ancillary Orders [facility] [address] [facility], 2nd Floor, [address] [place] [address] Nick Barnard MD [address] [place] [address] [id number] [place] [address] ROBERTO@ [facility] Dyspnea, unspecified (Primary Dx); Pulmonary embolism Social [...] [facility] [address] [place] [address], 2nd Floor, [address] [place] [address] Nick Barnard MD [address] [place], [place] [phone] [place] [address] [email or web address] documented as of this encounter Results [...] infarction documented in this encounter Care Teams Film Technician Relationship Specialty Start Date End Date Deena Workman MD [address] [place] [address] [place] [phone] PCP - General Internal Medicine 04/11/23 documented as of this encounter Additional Source Comments The information contained in this document represents components of the legal health record. It is not the complete legal health record.[facility]
--- OUTSIDE RECORDS SUMMARY | 2025-08-01 18:18 | XMS_ITS | Clinical Summary ---
Author Organization [facility] Address [address] [place] [address] Phone Care Team Providers Care Wrestling Coach Name Role Phone Deena Workman MD Primary Care Provider Allergies Active Allergy Reactions Criticality Noted Date Comments Amitriptyline Hcl Other (See Comments) 08/01/20 23 [place] drugged Dapagliflozin 05/08/2023 Erythromycin 05/08/2023 Liraglutide 05/08/2023 [...] Active ferrous sulfate 324 mg (65 mg [place] iron) TbEC Take 324 mg by mouth [...] [facility] [address] [place] [address], 2nd Floor, [address] [place] [address] Nick Barnard MD [address] [place], [place] [phone] [place] [address] [email or web address] Health Maintenance Due Date Last Done Comments [...] EST) SODIUM 136 135 - 145 mmol/L [facility] POTASSIUM 3.7 3.4 - 5.0 mmol/L [facility] CHLORIDE 98 98 - 108 mmol/L [facility] CO2 26 23 - 32 mmol/L [facility] BUN 16 8 - 25 mg/dL [facility] CREATININE 1.43 0.60 - 1.50 mg/dL [facility] GLUCOSE 193(H) 70 - 110 mg/dL [facility] CALCIUM 8.6 8.5 - 10.5 mg/dL [facility] EGFR 45(L) >59 mL/min/1. 73m2 [facility] Comment:Estimated glomerular filtration rate calculated using the CKD-EPI refit equation. ANION GAP 12 3 - 17 mmol/L [facility] Blood 08/12/2023 8:36 AM EST 08/12/2023 8:53 AM EST us Haydee Fajardo GUN EXAMINER LAB BLOOD BKR ORD ERABLES Final Result [address] [address] from Last 3 Months or Most Recently Relevant to Health Maintenance Insurance [employer] O [employer] MCO [employer] MCO Initiative [facility] [employer] O Initiative [facility] Advance Directives For more information, please contact: [phone] (9AM - 5PM Natasha/[facility], Friday-Friday) * Full Code (Latest Code Status on File) Date Activated Date Inactivated Comments 08/12/2023 8:12 AM Question Answer Comments Code Status Confirmed With: Patient Code Status Communicated To: Inpatient Attending * Full Code Date Activated Date Inactivated Comments 08/04/2023 7:15 PM 08/12/2023 8:12 AM Question Answer Comments Code Status Confirmed With: Patient Care Teams Wrestling Coach Relationship Specialty Start Date End Date Deena Workman MD [address] [place] [address] [place] [address] PCP - General Internal Medicine 04/11/23 Additional Source Comments The information contained in this document represents components of the legal health record. It is not the complete legal health record.[facility]
--- OUTSIDE RECORDS SUMMARY | 2025-08-01 18:18 | XMS_ITS | Encounter Summary ---
Author Organization [facility] Address [address] [place] [address] [address] [place] [address] Phone Care Team Providers Care Wall Attendant Name Role Phone Deena Workman MD Primary Care Provider Encounter Details Date Type Department Care Team (Late st Contact Info) Description 05/29/2023 Procedure Pass [facility] Cardiac Supervisory Geographer [address] [facility], Floor 9, [address] [place] [id number] Social History Tobacco Use Types Packs/Day Years [...] [facility] [address] [facility], 2nd Floor, [address] [place] [address] Nick Barnard MD [address] [place] [id number] [email or web address] documented as of this encounter Visit Diagnoses Not on filedocumented in this encounter Care Teams Wall Attendant Relationship Specialty Start Date End Date Deena Workman MD [address] [place] [address] [place] [phone] PCP - General Internal Medicine 04/11/23 documented as of this encounter Additional Source Comments The information contained in this document represents components of the legal health record. It is not the complete legal health record.[facility]
--- OUTSIDE RECORDS SUMMARY | 2025-08-01 18:18 | XMS_ITS | Encounter Summary ---
Author Organization [facility] Address [address] [place] [address] [place] [address] Phone Care Team Providers Care Sales Marketing Coordinator Name Role Phone Deena Workman MD Primary Care Provider Encounter Details Date Type Department Care Team (Late st Contact Info) Description 04/25/2023 Procedure Pass [facility] [place], [place] [address] [facility], 2nd Floor, [address] [place] [address] Social History Tobacco Use Types Packs/Day Years [...] [facility] [address] [facility], 2nd Floor, [address] [place] [address] Nick Barnard MD [address] [place] [address] [email or web address] documented as of this encounter Visit Diagnoses Not on filedocumented in this encounter Care Teams Sales Marketing Coordinator Relationship Specialty Start Date End Date Deena Workman MD [address] [place] [address] [place] [phone] PCP - General Internal Medicine 04/11/23 documented as of this encounter Additional Source Comments The information contained in this document represents components of the legal health record. It is not the complete legal health record.[facility]
--- OUTSIDE RECORDS SUMMARY | 2025-08-01 18:18 | XMS_ITS | Encounter Summary ---
Author Organization [facility] Address [address] [place] [address] [address] [place] [address] Phone Care Team Providers Care Water Plumber Name Role Phone Deena Workman MD Primary Care Provider Encounter Details Date Type Department Care Team (Late st Contact Info) Description 08/04/2023 Procedure Pass [facility] Cardiac Sewing Techniques Demonstrator [address] [facility], Floor 9, [address] [place] [address] Social History Tobacco Use Types [...] 08/04/2023 6:37 PM Yolis Mann RN * [place] Suicide Severity Rating Scale (Screener/Recent Self-Report) Question [...] Info) Description 08/03/2025 9:00 AM EST Telemedicine [facility] [address] [place] [address], 2nd Floor, [address] [place] [address] Nick Barnard MD [address] [place] [id number] [email or web address] documented as of this encounter Visit Diagnoses Not on filedocumented in this encounter Care Teams Water Plumber Relationship Specialty Start Date End Date Deena Workman MD [address] [place] [address] [place] [phone] PCP - General Internal Medicine 04/11/23 documented as of this encounter Additional Source Comments The information contained in this document represents components of the legal health record. It is not the complete legal health record.[facility]
--- OUTSIDE RECORDS SUMMARY | 2025-08-01 18:18 | XMS_ITS | Clinical Summary ---
Author Organization [facility] it Address [address] [place] [address] Care Team Providers Care Strap Stitcher Name Role Phone Unavailable Primary Care Provider [...] Depression Screening 09/08/2024 COVID-19 Vaccine ( - 2024-2 6 season) 2025 Influenza Vaccine (#1) 2025 RSV [...] Documents on File Type Date Recorded Patient Lacer And Tier Expl anation Health Care Decision (hx) 10/31/2020 [place] LONG DIRECTIVE
== END 2025-08-01 14:07 | disposition home or self-care (01) ==
LOC: HO.ENCR 13:31
PROVIDERS: PCP Internal Medicine; Visit Provider Physician Assistant
DX: E11.9 Type 2 diabetes mellitus without complications (principal); E66.01 Morbid (severe) obesity due to excess calories

== ENCOUNTER → 2025-08-01 13:31 | Outpatient (BNVA) | payer MEDICARE, MEDICAID, SELFPAY | PROVIDERS: PCP Internal Medicine; Visit Provider Physician Assistant | DX: E11.9 Type 2 diabetes mellitus without complications (principal); E66.01 Morbid (severe) obesity due to excess calories; Z68.41 Body mass index [BMI] 40.0-44.9, adult; Z71.3 Dietary counseling and surveillance | CPT/HCPCS: 82947; 99212 ==

== ENCOUNTER 2025-08-03 13:36 | Outpatient (AMB) | payer MEDICARE, MEDICAID, SELFPAY ==
--- OUTSIDE RECORDS SUMMARY | 2025-08-03 09:00 | XMS_ITS | Encounter Summary ---
Author Organization [facility] Address [address] [place] [address] [address] [place] [address] Phone Care Team Providers Care Christmas Tree Farm Worker Name Role Phone Deena Workman MD Primary Care Provider Encounter Details Date Type Department Care Team (Latest Contact Info) Description 08/03/2025 9:00 AM EST Telemedicine [facility] [place] [facility] [address] [place] [address], 2nd Floor, [address] [place] [address] Nick Barnard MD [address] [place] [address] [address] [place] [address] ROBERTO [email or web address] [email or web address] CTEPH (chronic thromboembolic pulmonary hypertension) (Primary Dx); JOSEPH (dyspnea on exertion); Morbid obesity with BMI of 50.0-59.9, adult Social History Tobacco Use Types Packs/Day Years [...] PM EDT documented as of this encounter Progress Notes * Nick Barnard MD - 08/03/2025 9:00 AM EST Images from the original note were not included. [facility] [place] [facility] Nick Barnard M.D. Director Jossie Jimenez M.D. ? General Office Dispatcher Shelby Aiken M.D. ? [address] [place] [address] ? ? Name: ??Domonique Bro : ??1975 Date: 08/03/2025 ?Referring MD: Dr. Odilon Land Reason For Visit: PE ? HPI: Domonique Bro is pleasant 45 yo woman with PMH of DM2, HTN, hyperlipidemia, factor 5 leiden, obesity,SERA (based on test- not available for us to review) recent diagnosis of thyroid Hurtle cell neoplasm,hypothyroidism, PE (10/2020) and chronic hypoxemic respiratory fialure who presented for evaluation of CTEPH. Patient presented to [facility] on 10/2020 with hypoxemia, cough and shortness of breath in the setting of COVID infection. In the ED patient had a CTPE that showed large PE involving segmental and subsegmental branches of bilateral lower lobes. Patient was started on iv heparin. She was discharged on 11/07/20 on apixaban to take for 6 months. Patient had repeat D-dimer which was elevated for which apixaban was resumed. In patient had shortness of breath again so her quality assurance nurse sent a CTPE that showed new PE for which she was transition to coumadin on January 22. Hypercoagulable work up showed postiive for factor 5 leiden. Around the same time she was starting using oxygen.Patient currently feels very winded just walking less than a block. She think that her physical activity has been declining over the last year. She sometimes describes some cough and wheezing mainly with exertion. She has albuterol. Not recent change in weight. No fevers. She has lower extremity edema more left and right. Never smoker. In terms of her recent diagnosis of thyroid Hurtle cell neoplasm. I spoke with her thyroid surgeon Dr. Abreu who said that his tumor is most likely benign based on genetic testing with risk of malignancy of around 4%. He said that there is urgency to remove the tumor at this time and he would prefer to wait until her CTEPH gets treated. ?In regards to risk factors for pulmonary hypertension, the patient has no history of autoimmune disease, raynaud's, amphetamine use, diet pill use or liver disease. Mother had PE and also her brother has DVT. Patient has had 3 miscarriages Interim Hx: Had two BPAs. On first right heart catheterization, had very mild PH. On second recent one, had normal pulmonary hemodynamics including normal PVR. Repeat V/Q scan looks a lot better w no residual defects. Unfortunately, she doesn't feel any subjective improvement in sob. She did start manjouro recently and hga1c has improved. Has lost 65 lbs to date and is tolerating max dose. Had some recent weight gain in the setting of her brother dying. Was started on sildenafil by her quality assurance nurse (Odilon Land), but hasn't noted a difference. Has had erratic INRs. Problems/Past Medical History: Patient Active Problem List Diagnosis CTEPH (chronic thromboembolic pulmonary hypertension) JOSEPH (dyspnea on exertion) Morbid obesity with BMI of 50.0-59.9, adult Thyroid neoplasm Allergies: ?? Allergies as of 08/03/2025 - Reviewed 10/13/2023 Allergen Reaction Noted Amitriptyline hcl Other (See Comments) 08/01/2023 Dapagliflozin 05/08/2023 Erythromycin 05/08/2023 Liraglutide 05/08/2023 Lisinopril 05/08/2023 Metformin 05/08/2023 Medications: ?? Current Outpatient Medications Ordered in Epic Medication Sig acetaminophen (TYLENOL) 650 MG CR tablet Take 650 mg by mouth every 8 (eight) hours as needed for pain (specific location in comments). albuterol 2.5 mg/0.5 mL nebulizer solution Take 2.5 mg by nebulization 4 (four) times a day as needed for wheezing. albuterol 90 mcg/actuation inhaler Inhale 2 puffs into the lungs every 6 (six) hours as needed for wheezing. atorvastatin (LIPITOR) 20 MG tablet Take 20 mg by mouth daily. cyanocobalamin, vitamin B-12, 1000 MCG tablet Take 1,000 mcg by mouth daily. ferrous sulfate 324 mg (65 mg [place] iron) TbEC Take 324 mg by mouth 2 (two) times a week. Friday andFriday glimepiride (AMARYL) 4 MG tablet Take 4 mg by mouth daily. Nightly levothyroxine (SYNTHROID, LEVOTHROID) 50 MCG tablet Take 50 mcg by mouth daily. metFORMIN (GLUCOPHAGE-XR) 500 MG 24 hr tablet Take 2 tablets (1,000 mg total) by mouth 2 (two) times a day. MOUNJARO 2.5 mg/0.5 mL PnIj Inject 2.5 mg under the skin once a week. valsartan-hydroCHLOROthiazide (DIOVAN-HCT) 320-25 mg per tablet Take 1 tablet by mouth every morning. Nightly warfarin (COUMADIN) 5 MG tablet Take 5 mg by mouth daily. See protocol Social History: ? Social History Tobacco Use Smoking status: Never Smokeless tobacco: Not on file Substance Use Topics Alcohol use: Not Currently Social History Social History Narrative Lives with in [place], [place] (1.5-[address] away [address] on traffic). Previously not ableto get hotel room due to cost, provided pt with list of accomodations near [facility] (including [facility]). Family History: ? Family History Problem Relation Age of Onset Pulmonary embolism Mother Deep vein thrombosis Brother Review of Systems: Review of systems was negative except as noted in HPI. All other systems were reviewed and are negative. Wt Readings from Last 3 Encounters: 08/11/23 (!) 138.9 kg (306 lb 3.5 oz) 08/05/23 (!) 138.9 kg (306 lb 3.5 oz) 05/29/23 (!) 137 kg (302 lb) Physical Exam: GEN: well-appearing EYES: no icterus HEAD: atraumatic LYMPH: no cervical lymphadenopathy CV: RRR LUNGS: symmetric breath sounds, no wheezing or crackles. ABD: soft MSK: trace of lower extremity edema DERM: no visible rashes PSYCH: normal affect Data: ?Labs: H1AC 10 Cardiology: TTE 02/17/23: EF 55-65%. RV not well visualized. No pericardial effusion. RVSP not able to be calculated. BETINA 01/21/23: no DVT CT angiogram of the chest. 10/30/2020:large pulmonary emboli within the segmental and subsegmental branches of bilateral lower lobes TTE 04/01: RIGHT HEART CATHETERIZATION 07/31: Selina Cardiac Output (l/min):Rest; CI (l/min/m2):1.99 Thermodilution Cardiac Output (l/min):5.02; CI (l/min/m2):2.14 PVR (dyn*s/cm5):324.8 Ignacio Units:4.06 RA RV 34 / 9 / 11 PA PCW RIGHT HEART CATHETERIZATION 08/30: Selina Cardiac Output (l/min):Rest; CI (l/min/m2):1.92 Thermodilution Cardiac Output (l/min):5.75; CI (l/min/m2):2.43 PVR (dyn*s/cm5):158.6 Ignacio Units:1.98 RA RV 34 / 5 / 13 PA PCW Pulmonary Functions Testing Results: Not available Imaging: V/Q scan 04/17/23: diffuse bilateral perfusion defects. L>R. CTPA 04/17/23: Left lower lobe PE CTPA 05/08/23: Interval decrease in previously noted multiple bilateral pulmonary emboli however there are still some residual filling defects present. Increased occlusive pulmonary embolus involving the posterior segment of RIGHT upper lobe. Assessment and Plan: 49 y.o.woman with morbid obesity, poorly controlled DM (last hga1c 10), SERA, hypothyroidism, who was initially diagnosed with bilateral PEs in 2020 when she presented with COVID. Was discharged on apixaban. It was stopped after six months, but restarted after a ddimer check was still elevated. In 10/31 she had a repeat CTPE for worsening dyspnea and was found to have b/l chronic appearing PEs. Apixaban was switched to warfarin. 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 She continued to have chronic sob and a v/q scan on 01/28 showed defects. She is quite symptomatic and is on 2L of oxygen since01/28. She also was recently diagnosed with a thyroid mass and FNA bx showed hurtle cell adenoma. We discussed with the thyroid surgeon and although her path/molecular testing was not carcinoma, it has a 4% risk of becoming malignant and should be taken out at some point. She does have a family hx of VTE (mother and brother) and had 3 miscarriages (2 early, 1 at 13 weeks). She has one healthy child. Repeat CT showed showed interval decrease in b/l PEs but still has chronic appearing b/l sgemental and subsegmental PEs and very little perfusion to LLL. Therefore, we proceed with two BPA sessions. Her most recent rhc is completely normal and repeat v/q looks improved as well. She still feels sob,so I suspect that her symptoms may be related to obesity and deconditioning. With a normal v/q and normal right heart catheterization, and no subjective improvement in dyspnea after two procedures, Idon't think the risks of additional BPA warrant the potential benefit at this point. Reassuringly, she also has a recent v/q which looks stable and an echo which is normal without evidence of pulmonary hypertension. She will need indefinite anticoagulation. Given high BMI and prior eliquis fail, may be best to keep her on warfarin. Agree with weight loss medications . I am surprised she hasn't felt better with the weight loss to date but would continue to try to lose weight. Can continue following with Dr. Land (local pulm) Nick Barnard MD Electronically signed on: 08/03/2025 9:15 AM documented in this encounter Plan of Treatment Not on file documented as of this encounter Visit Diagnoses Diagnosis CTEPH (chronic thromboembolic pulmonary hypertension)- Primary JOSEPH (dyspnea on exertion) Other dyspnea and respiratory abnormality Morbid obesity with BMI of 50.0-59.9, adult documented in this encounter Care Teams Christmas Tree Farm Worker Relationship Specialty Start Date End Date Deena Workman MD [address] [place] [address] [place] [phone] PCP - General Internal Medicine 04/11/23 documented as of this encounter Additional Source Comments The information contained in this document represents components of the legal health record. It is not the complete legal health record.[facility]
--- NOTE | 2025-08-03 13:40 | MHC.OFFVISCO ---
Intake Intake Visit Reasons: Anticoagulation Allergies lisinopril (LISINOPRIL) Allergy (Severe, Verified 08/03/25 13:37) ANGIOEDEMA dapagliflozin (From FARXIGA) Allergy (Intermediate, Verified 08/03/25 13:37) HIVES erythromycin base (ERYTHROMYCIN BASE) Allergy (Intermediate, Verified 08/03/25 13:37) Hives liraglutide (From VICTOZA) Allergy (Intermediate, Verified 08/03/25 13:37) RASH amitriptyline (AMITRIPTYLINE) Adverse Reaction (Intermediate, Verified 08/03/25 13:37) lethargy metformin (METFORMIN) Adverse Reaction (Intermediate, Verified 08/03/25 13:37) GI UPSET to short acting form-is taking long acting & OK Medication List - Last Reconciled 08/03/25 by Linh Mcnulty RN acetaminophen ER 650 mg PO Q6H PRN albuterol sulfate 2.5 mg inhalation Q4H PRN albuterol sulfate 90 mcg/actuation (Ventolin HFA) 2 puffs inhalation Q6H PRN blood sugar diagnostic (FreeStyle Lite Strips) As directed blood-glucose meter (FreeStyle Lite Meter kit) Use daily As directed to check blood sugars compress.stocking,knee,reg,med 15-20 cm ferrous gluconate 324 mg PO DAILY furosemide (Lasix) 20 mg PO DAILY 90 days galcanezumab-gnlm (Emgality Pen) 120 mg subcut QMONTH hydroxychloroquine (Plaquenil) 200 mg PO DAILY 30 days levothyroxine 50 mcg PO QAM nebulizers As directed Oxygen Home Use As directed rosuvastatin 10 mg PO BEDTIME sertraline 100 mg PO DAILY sildenafil (pulm.hypertension) 20 mg PO TID tirzepatide (Mounjaro) 15 mg (0.5 mL) subcut QWEEK warfarin 5 mg See Protocol PO DAILY 30 days Nursing Note INR 1.7-? out of therapeutic range 2-3 Medications and supplements reviewed Patient status: pt denies missed dose Medications or supplements: no changes Diet: appetite fair Denies any signs and symptoms of bleeding or clotting or unusual bruising Bleeding, bruising, clotting discussed Nutritional guidance given: no greens for 2 days, eat reds to raise Dose: 1 week F/U INR Date : take 5mg today then cont 5mg x 1. 2.5mg x 6 Patient verbalizing understanding of instructions given. pt on cont oxygen- states not feeling well- stomach gassy/bloated and headache has been eating grapes Anti-Coag Initial Assessment Social Hx Patient Tobacco Use Status: Never used Tobacco alcohol intake: former Alcohol intake frequency: does not drink Cardiovascular Hx: HTN Lung Disease HX: DVT/PE Endocrine Hx: Thyroid Disease Musculoskeletal Hx: Arthritis Blood Disorder Hx: Anemia and Hyperlipidemia GI Hx: Ulcers, Diverticulosis and Hemorrhoids Hx: Other Neurological Hx: Migraines/Headaches and Other Cancer HX: No Psych. Illness/Depression: Yes Coding Level of Care Code Est Patient Level 1 Diagnoses Current use of anticoagulant therapy Z79.01 Assessment & Plan Assessment & Plan (1) Current use of anticoagulant therapy: Code(s): Z79.01 - watermaster (current) use of anticoagulants Category: Medical
[2025-08-03 13:41] LABS: Prothrombin Time Whole Bld POC 20.8 sec (11.1-13.5); ~PT, ~INR - Anti Coag Clinic 1.7 (0.9-1.1)
--- OUTSIDE RECORDS SUMMARY | 2025-08-03 16:43 | XMS_ITS | Clinical Summary ---
Author Organization [facility] Address [address] [place] [id number] Phone Care Team Providers Care Game Programmer Name Role Phone Deena Workman MD Primary Care Provider Allergies Active Allergy Reactions Criticality Noted Date Comments Amitriptyline Hcl Other (See Comments) 08/01/20 23 [place] drugged Dapagliflozin 05/08/2023 Erythromycin 05/08/2023 Liraglutide 05/08/2023 Lisinopril 05/08/2023 Metformin 05/08/2023 Medications acetaminophen (TYLENOL) 650 MG CR tablet Take 650 mg by mouth every 8 (eight) hours as needed for pain (specific location in comments). Active albuterol 2.5 mg/0.5 mL nebulizer solution Take 2.5 mg by nebulization 4 (four) times a day as needed for wheezing. Active ferrous sulfate 324 mg (65 mg mary's igloo iron) TbEC Take 324 mg by mouth 2 (two) times a week. Friday and Friday Active levothyroxine (SYNTHROID, LEVOTHROID) 50 MCG tablet Take 50 mcg by mouth daily. Active warfarin (COUMADIN) 5 MG tablet Take 5 mg by mouth daily. See protocol Active rosuvastatin (CRESTOR) 10 MG tablet Take 10 mg by mouth daily. Active tirzepatide (MOUNJARO) 15 mg/0.5 mL PnIj subcutaneous pen Inject 15 mg under the skin every 7 days. Active sildenafiL (REVATIO) 20 mg tablet Take 20 mg by mouth 3 (three) times a day. Active atorvastatin (LIPITOR) 20 MG tablet Take 20 mg by mouth daily. Discontin ued(No longer taking) cyanocobalamin, vitamin B-12, 1000 MCG tablet Take 1,000 mcg by mouth daily. Discontin ued(No longer taking) glimepiride (AMARYL) 4 MG tablet Take 4 mg by mouth daily. Nightly Discontin ued(No longer taking) albuterol 90 mcg/actuation inhaler Inhale 2 puffs into the lungs every 6 (six) hours as needed for wheezing. Discontin ued(No longer taking) MOUNJARO 2.5 mg/0.5 mL PnIj Inject 2.5 mg under the skin once a week. 07/21/20 Discontin ued(No longer taking) valsartan-hydroC HLOROthiazide (DIOVAN-HCT) 320-25 mg per tablet Take 1 tablet by mouth every morning. Nightly 07/08/20 Discontin ued(No longer taking) metFORMIN (GLUCOPHAGE-XR) 500 MG 24 hr tablet Take 2 tablets (1,000 mg total) by mouth 2 (two) times a day. 08/07/20 Discontin ued(No longer taking) Active Problems Problem Noted Date Diagnosed Date JOSEPH (dyspnea on exertion) 10/16/2023 Morbid obesity with BMI of 50.0-59.9, adult 04/2024 Thyroid neoplasm 10/16/2023 CTEPH (chronic thromboembolic pulmonary hyperten dino) 05/29/2023 Assessment & Plan (08/11/2023 10:26 AM EST): 47 yo with CTEPH, with NYHA 3 JOSEPH, on home O2 and Factor V Leiden mutation, on warfarin (last dose 07/29, bridged with lovenox, last dose 12/3 am). Has had prior miscarriages and has [...] Encounters Date Type Department Care Team Description 08/03/2025 9:00 AM EST Telemedicine [facility] [place] [facility] [address] [place] [address], 2nd Floor, [address] [place] [address] Nick Barnard MD CTEPH (chronic thromboembolic pulmonary hypertension) (Primary Dx); JOSEPH (dyspnea on exertion); Morbid obesity with BMI of 50.0-59.9, adult from Last 3 Months Family History Medical [...] 08/11/2023 10:00 PM EST Plan of Treatment Health Maintenance Due Date Last Done Comments LIPID PANEL 1974 TSH LEVEL 1974 DEPRESSION SCREENING 1986 HEPATITIS C SCREENING 1992 HIV ONE-TIME SCREENING (18-65 YEARS) 1992 PAP SMEAR 1995 SCREENING FOR DIABETES 2009 MAMMOGRAM 2014 COLOGUARD 2019 COLONOSCOPY 2019 COLORECTAL CANCER SCREENING 2019 FIT TEST 2019 FOBT 2019 SIGMOIDOSCOPY 2019 VIRTUAL COLONOSCOPY 2019 RSV VACCINE (1 - Risk 50-74 years 1-dose series) 2024 COVID-19 VACCINE (2024- season) 2025 07/25/2022, 07/25/2021, 03/08/2021, Additional history exists Adult Td,Tdap Booster 11/25/2034 11/25/2024 PNEUMOCOCCAL VACCINES (50+ years) Completed 08/08/2022 SMOKING STATUS SCREENING (Once After 26 Yrs) Completed 08/04/2023 ZOSTER VACCINES Completed 01/28/2025, 11/25/2024 INFLUENZA VACCINE Completed 05/26/2025, , 07/01/2023, Additional history exists HEPATITIS A VACCINES Aged Out No long [...] this topic Medical Devices Not on file Insurance [facility] [place] [employer] [facility] [place] [facility] [place] [facility] [place] [facility] Advance Directives For more information, please contact: [phone] (9AM - 5PM [facility], Friday-Friday) * Full Code (Latest Code Status on File) Date Activated Date Inactivated Comments 08/12/2023 8:12 AM Question Answer Comments Code Status Confirmed With: Patient Code Status Communicated To: Inpatient Attending * Full Code Date Activated Date Inactivated Comments 08/04/2023 7:15 PM 08/12/2023 8:12 AM Question Answer Comments Code Status Confirmed With: Patient Care Teams Game Programmer Relationship Specialty Start Date End Date Deena Workman MD [address] [place] [address] [place] [phone] PCP - General Internal Medicine 04/11/23 Additional Source Comments The information contained in this document represents components of the legal health record. It is not the complete legal health record.[facility]
--- OUTSIDE RECORDS SUMMARY | 2025-08-03 16:43 | XMS_ITS | Encounter Summary ---
Author Organization [facility] Address [address] [place] [address] [address] [place] [address] Phone Care Team Providers Care Supervisor Sample Name Role Phone Deena Workman MD Primary Care Provider Encounter Details Date Type Department Care Team (Late st Contact Info) Description 08/04/2023 Procedure [place] [facility] [place]iac Multimedia Services Manager [address] [facility], [address] 9, [address] [place] [address] Social History Tobacco Use Types [...] 08/04/2023 6:37 PM Yolis Mann RN * [place] Suicide Severity Rating Scale (Screener/Recent Self-Report) Question [...] on filedocumented in this encounter Care Teams Supervisor Sample Relationship Specialty Start Date End Date Deena Workman MD [address] [place] [address] [place] [address] PCP - General Internal Medicine 04/11/23 documented as of this encounter Additional Source Comments The information contained in this document represents components of the legal health record. It is not the complete legal health record.[facility]
--- OUTSIDE RECORDS SUMMARY | 2025-08-03 16:43 | XMS_ITS | Encounter Summary ---
Author Organization [facility] Address [address] [place] [address] [address] [place] [address] Phone Care Team Providers Care Director Of Sports Medicine Name Role Phone Deena Workman MD Primary Care Provider Encounter Details Date Type Department Care Team (Late st Contact Info) Description 08/11/2023 Procedure Pass [facility] Cardiac Sustainable Design Consultant [address] [facility], [address] 9, [address] [place] [address] Social History Tobacco Use Types [...] Author No Risk Indicated 08/11/2023 10:00 PM Ab Lopez RN * [place] Suicide Severity Rating Scale (Screener/Recent Self-Report) Question [...] on filedocumented in this encounter Care Teams Director Of Sports Medicine Relationship Specialty Start Date End Date Deena Workman MD [address] [place] [address] [place] [address] PCP - General Internal Medicine 04/11/23 documented as of this encounter Additional Source Comments The information contained in this document represents components of the legal health record. It is not the complete legal health record.[facility]
--- OUTSIDE RECORDS SUMMARY | 2025-08-03 16:43 | XMS_ITS | Encounter Summary ---
Author Organization [facility] Address [address] [place] [address] [address] [place] [address] Phone Care Team Providers Care Bus Inspector Name Role Phone Deena Workman MD Primary Care Provider Encounter Details Date Type Department Care Team (Late st Contact Info) Description 04/25/2023 Procedure Pass [facility], [place] [address] [facility], 2nd Floor, [address] [place] [address] Social History Tobacco Use Types Packs/Day Years [...] on filedocumented in this encounter Care Teams Bus Inspector Relationship Specialty Start Date End Date Deena Workman MD [address] [place] [address] [place] [address] PCP - General Internal Medicine 04/11/23 documented as of this encounter Additional Source Comments The information contained in this document represents components of the legal health record. It is not the complete legal health record.[facility]
--- OUTSIDE RECORDS SUMMARY | 2025-08-03 16:43 | XMS_ITS | Encounter Summary ---
Author Organization [facility] Address [address] [place] [address] [address] [place] [address] Phone Care Team Providers Care Senior Qa Tester Name Role Phone Deena Workman MD Primary Care Provider Encounter Details Date Type Department Care Team (Late st Contact Info) Description 05/29/2023 Procedure Pass [facility] [place] Cardiac Dimensional Integration Engineer [address] [facility], [address] 9, [address] [place] [address] Social History Tobacco Use Types [...] on filedocumented in this encounter Care Teams Senior Qa Tester Relationship Specialty Start Date End Date Deena Workman MD [address] [place] [address] [place] [phone] PCP - General Internal Medicine 04/11/23 documented as of this encounter Additional Source Comments The information contained in this document represents components of the legal health record. It is not the complete legal health record.[facility]
--- OUTSIDE RECORDS SUMMARY | 2025-08-03 16:43 | XMS_ITS | Encounter Summary ---
Author Organization [facility] Address [address] [place] [address] [address] [place] [address] Phone Care Team Providers Care Material Analyst Name Role Phone Deena Workman MD Primary Care Provider Reason for Referral * Outpatient Procedure - Closed Specialty Diagnoses / Procedures Referred By Contac t Referred To Contact Radiology Diagnoses Dyspnea, unspecified Pulmonary embolism Procedures NM Lung Perfusion Imaging NM Lung Ventilation and Perfusion Imaging NM Lung Perfusion and Ventilation Differential Quantification NM Lung Perfusion Imaging NM Lung Ventilation and Perfusion Imaging OK PULMONARY VENTILATION & PERFUSION IMAGING OK QUANT DIFF PULM PRFUSION & VENTLAJ W/WO IMAGING Nick Barnard MD Phone: tel: fax: mailto:[email or web address] Referral ID Status Reason Start Date Expiration Date Visits Re quested Visits Authorized [id number] Closed 08/14/2023 1 1 Encounter Details Date Type Department Care Team (Late st Contact Info) Description 10/13/2023 Ancillary Orders [facility] [place] [facility] [address] [facility], 2nd Floor, [address] [place] [address] Nick Barnard MD [address] [place] [address] [address] [place] [address] [email or web address]@ [email or web address] Dyspnea, unspecified (Primary Dx); Pulmonary [...] Luis Benson. Narrative 10/13/2023 6:10 PM EST [place] LUNG PERFUSION IMAGING Lung Perfusion Scan COMPARISON: [...] Procedure Note Isabel Schmidt MD - 10/13/2023 [place] LUNG PERFUSION IMAGING Lung Perfusion Scan COMPARISON: [...] Dr. Luis Benson. us Nick Barnard MD [facility] [place] Fi nal Result documented in this encounter Visit Diagnoses Diagnosis Dyspnea, unspecified Pulmonary embolism Other pulmonary embolism and infarction Dyspnea, unspecified- Primary Pulmonary embolism Other pulmonary embolism and infarction documented in this encounter Care Teams Material Analyst Relationship Specialty Start Date End Date Deena Workman MD [address] [place] [address] [place] [address] PCP - General Internal Medicine 04/11/23 documented as of this encounter Additional Source Comments The information contained in this document represents components of the legal health record. It is not the complete legal health record.[facility]
--- OUTSIDE RECORDS SUMMARY | 2025-08-03 16:43 | XMS_ITS | Clinical Summary ---
Author Organization [facility] it Address [address] [place] [address] Care Team Providers Care Starter Cup Powder Mixer Name Role Phone Unavailable Primary Care [...] Documents on File Type Date Recorded Patient Personnel Security Assistant Expl anation Health Care Decision (hx) 10/31/2020 YASMANY LONG DIRECTIVE
== END 2025-08-03 13:49 | disposition home or self-care (01) ==
LOC: HO.ACS 13:36
PROVIDERS: PCP Internal Medicine; Visit Provider Internal Medicine Medical Oncology
DX: Z79.01 Long term (current) use of anticoagulants (principal)

== ENCOUNTER → 2025-08-03 13:36 | Outpatient (BNVA) | payer MEDICARE, MEDICAID, SELFPAY | PROVIDERS: PCP Internal Medicine; Visit Provider Internal Medicine Medical Oncology | DX: I26.99 Other pulmonary embolism without acute cor pulmonale (principal); Z51.81 Encounter for therapeutic drug level monitoring; Z79.01 Long term (current) use of anticoagulants | CPT/HCPCS: 85610; 99211 ==

== ENCOUNTER 2025-08-11 14:02 | Outpatient (AMB) | payer MEDICARE, MEDICAID, SELFPAY ==
[2025-08-11 14:09] LABS: Prothrombin Time Whole Bld POC 21.0 sec (11.1-13.5); ~PT, ~INR - Anti Coag Clinic 1.8 (0.9-1.1)
--- NOTE | 2025-08-11 14:28 | MHC.OFFVISCO ---
Intake Intake Visit Reasons: Anticoagulation Allergies lisinopril (LISINOPRIL) Allergy (Severe, Verified 08/11/25 14:03) ANGIOEDEMA dapagliflozin (From FARXIGA) Allergy (Intermediate, Verified 08/11/25 14:03) HIVES erythromycin base (ERYTHROMYCIN BASE) Allergy (Intermediate, Verified 08/11/25 14:03) Hives liraglutide (From VICTOZA) Allergy (Intermediate, Verified 08/11/25 14:03) RASH amitriptyline (AMITRIPTYLINE) Adverse Reaction (Intermediate, Verified 08/11/25 14:03) lethargy metformin (METFORMIN) Adverse Reaction (Intermediate, Verified 08/11/25 14:03) GI UPSET to short acting form-is taking long acting & OK Medication List - Last Reconciled 08/11/25 by Francine Mitchell RN acetaminophen ER 650 mg PO Q6H PRN albuterol sulfate 2.5 mg inhalation Q4H PRN albuterol sulfate 90 mcg/actuation (Ventolin HFA) 2 puffs inhalation Q6H PRN blood sugar diagnostic (FreeStyle Lite Strips) As directed blood-glucose meter (FreeStyle Lite Meter kit) Use daily As directed to check blood sugars compress.stocking,knee,reg,med 15-20 cm ferrous gluconate 324 mg PO DAILY furosemide (Lasix) 20 mg PO DAILY 90 days galcanezumab-gnlm (Emgality Pen) 120 mg subcut QMONTH hydroxychloroquine (Plaquenil) 200 mg PO DAILY 30 days levothyroxine 50 mcg PO QAM nebulizers As directed Oxygen Home Use As directed rosuvastatin 10 mg PO BEDTIME sertraline 100 mg PO DAILY sildenafil (pulm.hypertension) 20 mg PO TID tirzepatide (Mounjaro) 15 mg (0.5 mL) subcut QWEEK warfarin 5 mg See Protocol PO DAILY 30 days Nursing Note INR: 1.8 out of therapeutic range of 2-3 Prev 1.7 with an increase in warfarin dose by 2.5mg Medications and supplements reviewed Patient status: feels well Medications or supplements: no changes Diet: no changes Denies any signs and symptoms of bleeding or clotting or unusual bruising Bleeding, bruising, clotting discussed Nutritional guidance given: to avoid greens today Dose: 5mg today, then 2.5mg X 4 days and 5mg X 3 days (//) F/U INR Date: 1 week (08/18/25)?? Patient verbalizing understanding of instructions given. Anti-Coag Initial Assessment Social Hx Patient Tobacco Use Status: Never used Tobacco alcohol intake: former Alcohol intake frequency: does not drink Cardiovascular Hx: HTN Lung Disease HX: DVT/PE Endocrine Hx: Thyroid Disease Musculoskeletal Hx: Arthritis Blood Disorder Hx: Anemia and Hyperlipidemia GI Hx: Ulcers, Diverticulosis and Hemorrhoids Hx: Other Neurological Hx: Migraines/Headaches and Other Cancer HX: No Psych. Illness/Depression: Yes Coding Level of Care Code Est Patient Level 1 Diagnoses Current use of anticoagulant therapy Z79.01 Results AMB INR Fingerstick AMB INR Fingerstick 1.8 Last Edit by Francine Mitchell RN on 08/11/25 14:22 interface delay Assessment & Plan Assessment & Plan (1) Current use of anticoagulant therapy: Code(s): Z79.01 - [facility] (current) use of anticoagulants Category: Medical
--- OUTSIDE RECORDS SUMMARY | 2025-08-11 19:19 | XMS_ITS | Encounter Summary ---
Author Organization [facility] Address [address] [place] [address] [address] [place] [address] Phone Care Team Providers Care Rn Maternity Name Role Phone Deena Workman MD Primary [...] IMAGING Nick Barnard MD Phone: tel: fax: mailto:[email or web address] Referral ID Status Reason Start Date Expiration Date Visits Re quested Visits Authorized [id number] Closed 08/14/2023 1 1 Encounter Details Date Type Department Care Team (Late st Contact Info) Description 10/13/2023 Ancillary [place] [facility] [place] [facility] [address] [facility], 2nd Floor, [address] [place] [address] Nick Barnard MD [address] [place] [address] [address] [place] [address] [email or web address] Dyspnea, unspecified (Primary Dx); Pulmonary [...] Luis Benson. Narrative 10/13/2023 6:10 PM EST PR LUNG PERFUSION IMAGING Lung Perfusion Scan COMPARISON: [...] Procedure Note Isabel Schmidt MD - 10/13/2023 [place] LUNG PERFUSION IMAGING Lung Perfusion Scan COMPARISON: [...] Luis Benson. us Nick Barnard MD [facility] [place] Fi nal Result documented in this encounter Visit Diagnoses Diagnosis Dyspnea, unspecified Pulmonary embolism Other pulmonary embolism and infarction Dyspnea, unspecified- Primary Pulmonary embolism Other pulmonary embolism and infarction documented in this encounter Care Teams Rn Maternity Relationship Specialty Start Date End Date Deena Workman MD [address] [place] [address] [place] [address] PCP - General Internal Medicine 04/11/23 documented as of this encounter Additional Source Comments The information contained in this document represents components of the legal health record. It is not the complete legal health record.[facility]
--- OUTSIDE RECORDS SUMMARY | 2025-08-11 19:20 | XMS_ITS | Encounter Summary ---
Author Organization [facility] Address [address] [place] [address] [address] [place] [address] Phone Care Team Providers Care Job Superintendent Name Role Phone Deena Workman MD Primary Care Provider Encounter Details Date Type Department Care Team (Late st Contact Info) Description 04/25/2023 Procedure Pass [facility] [place], [place] [address] [facility], 2nd Floor, [address] [place] [address] Social History Tobacco Use Types Packs/Day Years [...] on filedocumented in this encounter Care Teams Job Superintendent Relationship Specialty Start Date End Date Deena Wormkan MD [address] [place] [address] [place] [address] PCP - General Internal Medicine 04/11/23 documented as of this encounter Additional Source Comments The information contained in this document represents components of the legal health record. It is not the complete legal health record.[facility]
--- OUTSIDE RECORDS SUMMARY | 2025-08-11 19:20 | XMS_ITS | Clinical Summary ---
Author Organization [facility] it Address [address] [place] [address] Care Team Providers Care Tow Feeder Name Role Phone Unavailable Primary Care Provider [...] Documents on File Type Date Recorded Patient Bonding Machine Tender Expl anation Health Care Decision (hx) 10/31/2020 YASMANY LONG DIRECTIVE
--- OUTSIDE RECORDS SUMMARY | 2025-08-11 19:20 | XMS_ITS | Clinical Summary ---
Author Organization [facility] Address [address] [place] [address] Phone Care Team Providers Care Vegetable Harvest Worker Name Role Phone Deena Workman MD Primary Care Provider Allergies Active Allergy Reactions Criticality Noted Date Comments Amitriptyline Hcl Other (See Comments) 08/01/20 23 [place] drugged Dapagliflozin 05/08/2023 Erythromycin 05/08/2023 Liraglutide 05/08/2023 Lisinopril 05/08/2023 Metformin 05/08/2023 Medications acetaminophen (TYLENOL) 650 MG CR tablet Take 650 mg by mouth every 8 (eight) hours as needed for pain (specific location in comments). Active albuterol 2.5 mg/0.5 mL nebulizer solution Take 2.5 mg by nebulization 4 (four) times a day as needed for wheezing. Active ferrous sulfate 324 mg (65 mg [place] iron) TbEC Take 324 mg by mouth [...] Team Description 08/03/2025 9:00 AM EST Telemedicine [facility] [place] [facility] [address] [place] [address], 2nd Floor, [address] [place] [address] Nick Barnard MD CTEPH (chronic [...] topic Medical Devices Not on file Insurance [facility] [employer] Care[employer] HoldingsUPSTATE [facility]Cir[facility] [employer] [facility] Advance Directives For more information, please contact: [phone] (9AM - 5PM [facility], Friday-Friday) * Full Code (Latest Code Status on File) Date Activated Date Inactivated Comments 08/12/2023 8:12 AM Question Answer Comments Code Status Confirmed With: Patient Code Status Communicated To: Inpatient Attending * Full Code Date Activated Date Inactivated Comments 08/04/2023 7:15 PM 08/12/2023 8:12 AM Question Answer Comments Code Status Confirmed With: Patient Care Teams Vegetable Harvest Worker Relationship Specialty Start Date End Date Deena Workman MD [address] [place] [address] [place] [address] PCP - General Internal Medicine 04/11/23 Additional Source Comments The information contained in this document represents components of the legal health record. It is not the complete legal health record.[facility]
--- OUTSIDE RECORDS SUMMARY | 2025-08-11 19:20 | XMS_ITS | Encounter Summary ---
Author Organization [facility] Address [address] [place] [address] [address] [place] [address] Phone Care Team Providers Care Upkeep Worker Name Role Phone Deena Workman MD Primary Care Provider Encounter Details Date Type Department Care Team (Late st Contact Info) Description 05/29/2023 Procedure Pass [facility] [place] Cardiac Virtual Assistant [address] [facility], [address], [address] [place] [address] Social History Tobacco Use Types [...] on filedocumented in this encounter Care Teams Upkeep Worker Relationship Specialty Start Date End Date Deena Workman MD [address] [place] [address] [place] [phone] PCP - General Internal Medicine 04/11/23 documented as of this encounter Additional Source Comments The information contained in this document represents components of the legal health record. It is not the complete legal health record.[facility]
--- OUTSIDE RECORDS SUMMARY | 2025-08-11 19:22 | XMS_ITS | Encounter Summary ---
Author Organization [facility] Address [address] [place] [address] [address] [place] [address] Phone Care Team Providers Care Warehouse Operations Associate Name Role Phone Deena Workman MD Primary Care Provider Encounter Details Date Type Department Care Team (Late st Contact Info) Description 08/04/2023 Procedure Pass [facility] [place] Cardiac [place] [address] [facility], [address] 9, [address] [place] [address] Social History Tobacco Use Types [...] 08/04/2023 6:37 PM Yolis Mann RN * [place] Suicide Severity Rating Scale (Screener/Recent Self-Report) Question [...] on filedocumented in this encounter Care Teams Warehouse Operations Associate Relationship Specialty Start Date End Date Deena Workman MD [address] [place] [address] [place] [address] PCP - General Internal Medicine 04/11/23 documented as of this encounter Additional Source Comments The information contained in this document represents components of the legal health record. It is not the complete legal health record.[facility]
== END 2025-08-11 14:33 | disposition home or self-care (01) ==
LOC: HO.ACS 14:02
PROVIDERS: PCP Internal Medicine; Visit Provider Internal Medicine Medical Oncology
DX: Z79.01 Long term (current) use of anticoagulants (principal)

== ENCOUNTER → 2025-08-11 14:02 | Outpatient (BNVA) | payer MEDICARE, MEDICAID, SELFPAY | PROVIDERS: PCP Internal Medicine; Visit Provider Internal Medicine Medical Oncology | DX: I26.99 Other pulmonary embolism without acute cor pulmonale (principal); Z51.81 Encounter for therapeutic drug level monitoring; Z79.01 Long term (current) use of anticoagulants | CPT/HCPCS: 85610; 99211 ==

== ENCOUNTER 2025-08-18 09:27 | Outpatient (AMB) | payer MEDICARE, MEDICAID, SELFPAY ==
[2025-08-18 09:37] LABS: Prothrombin Time Whole Bld POC 36.9 sec (11.1-13.5); ~PT, ~INR - Anti Coag Clinic 3.1 (0.9-1.1)
--- NOTE | 2025-08-18 09:49 | MHC.OFFVISCO ---
Intake Intake Visit Reasons: Anticoagulation Allergies lisinopril (LISINOPRIL) Allergy (Severe, Verified 08/18/25 09:30) ANGIOEDEMA dapagliflozin (From FARXIGA) Allergy (Intermediate, Verified 08/18/25 09:30) HIVES erythromycin base (ERYTHROMYCIN BASE) Allergy (Intermediate, Verified 08/18/25 09:30) Hives liraglutide (From VICTOZA) Allergy (Intermediate, Verified 08/18/25 09:30) RASH amitriptyline (AMITRIPTYLINE) Adverse Reaction (Intermediate, Verified 08/18/25 09:30) lethargy metformin (METFORMIN) Adverse Reaction (Intermediate, Verified 08/18/25 09:30) GI UPSET to short acting form-is taking long acting & OK Medication List - Last Reconciled 08/18/25 by Licha Muñoz RN acetaminophen ER 650 mg PO Q6H PRN albuterol sulfate 2.5 mg inhalation Q4H PRN albuterol sulfate 90 mcg/actuation (Ventolin HFA) 2 puffs inhalation Q6H PRN blood sugar diagnostic (FreeStyle Lite Strips) As directed blood-glucose meter (FreeStyle Lite Meter kit) Use daily As directed to check blood sugars compress.stocking,knee,reg,med 15-20 cm ferrous gluconate 324 mg PO DAILY furosemide (Lasix) 20 mg PO DAILY 90 days galcanezumab-gnlm (Emgality Pen) 120 mg subcut QMONTH ketotifen fumarate 0.025%(0.035%) 2 drps ophthalmic (eye) DAILY levothyroxine 50 mcg PO QAM nebulizers As directed Oxygen Home Use As directed rosuvastatin 10 mg PO BEDTIME sertraline 100 mg PO DAILY sildenafil (pulm.hypertension) 20 mg PO TID tirzepatide (Mounjaro) 15 mg (0.5 mL) subcut QWEEK warfarin 5 mg See Protocol PO DAILY 30 days Nursing Note INR: 3.1 in therapeutic range- unable to eat much produce right now refrigerator broken right now Medications and supplements reviewed No changes in health, diet, medications, or supplements, Denies any signs and symptoms of bleeding or bruising or clotting. Bleeding, bruising, clotting discussed Nutritional guidance given Dose: decrease dose for now to 5mg x 2 days / 2.5mg x 5 days F/U INR: 1 1/2 weeks Patient verbalizes understanding of instructions given Anti-Coag Initial Assessment Social Hx Patient Tobacco Use Status: Never used Tobacco alcohol intake: former Alcohol intake frequency: does not drink Cardiovascular Hx: HTN Lung Disease HX: DVT/PE Endocrine Hx: Thyroid Disease Musculoskeletal Hx: Arthritis Blood Disorder Hx: Anemia and Hyperlipidemia GI Hx: Ulcers, Diverticulosis and Hemorrhoids Hx: Other Neurological Hx: Migraines/Headaches and Other Cancer HX: No Psych. Illness/Depression: Yes Questionnaires HAS-BLED Does the patient had uncontrolled Hypertension?: No Does the patient have renal disease?: Yes Does the patient have liver disease?: No Does the patient have a history of stroke?: No Has the patient had major bleeding or predisposition to bleeding?: Yes (On warfarin) Does the patient have labile INRs?: Yes Is the patient over 65 years of age?: No Is the patient on medications that gives them a predisposition to bleeding?: Yes Does the patient use alcohol?: No HAS-BLED Score: 4 CHADSVASC Age: <65 Gender: Female Does the patient have a history of CHF?: No Does the patient have a history of Hypertension?: Yes Does the patient have a history of Stroke/TIA/Thromboembolism?: Yes Does the patient have a history of Vascular Disease (prior UT, PAD or aortic plaque)?: No Does the patient have a history of Diabetes?: Yes CHADS VACS Score: 5 Kodak Prediction Score Rsk VTE Active Cancer: Yes (thyroid cancer) Previous VTE, excluding superficial vein thrombosis: Yes Reduced mobility: No 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 ) With-in last month Trauma and/or Surgery: Yes Elderly 70 year or older: No Heart and/or Respiratory Failure: No Acute Myocardial infarction and/or Ischemic Stroke: No Acute Infection and/or Rheumatologic Disorder: Yes (NAANDA POSTIVE) Obesity (BMI 30 or greater): Yes Ongoing Hormonal Treatment: No Score: 13 Kodak Score less than 4; Low Risk of VTE Kodak Score 4 or greater; High Risk of VTE Coding Level of Care Code Est Patient Level 1 Diagnoses Current use of anticoagulant therapy Z79.01 Assessment & Plan Assessment & Plan (1) Current use of anticoagulant therapy: Code(s): 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
== END 2025-08-18 09:59 | disposition home or self-care (01) ==
LOC: HO.ACS 09:27
PROVIDERS: PCP Internal Medicine; Visit Provider Internal Medicine Medical Oncology
DX: Z79.01 Long term (current) use of anticoagulants (principal)

== ENCOUNTER 2025-08-18 09:55 | Outpatient (AMB) | payer MEDICARE, MEDICAID, SELFPAY ==
--- NOTE | 2025-08-18 10:02 | MHC.OFFVIS ---
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: No Accompanied by: Self / Same As Patient Allergies lisinopril (LISINOPRIL) Allergy (Severe, Verified 08/18/25 10:05) ANGIOEDEMA dapagliflozin (From FARXIGA) Allergy (Intermediate, Verified 08/18/25 10:05) HIVES erythromycin base (ERYTHROMYCIN BASE) Allergy (Intermediate, Verified 08/18/25 10:05) Hives liraglutide (From VICTOZA) Allergy (Intermediate, Verified 08/18/25 10:05) RASH amitriptyline (AMITRIPTYLINE) Adverse Reaction (Intermediate, Verified 08/18/25 10:05) lethargy metformin (METFORMIN) Adverse Reaction (Intermediate, Verified 08/18/25 10:05) GI UPSET to short acting form-is taking long acting & OK HPI Comments Details: The patient is a 49-year-old woman with a known history of pulmonary emboli currently on Eliquis presenting with worsening dyspnea symptoms. Patient complains of dyspnea on exertion. Moderate severity. denies any wheezing or coughing. The patient does not have any respiratory inhalers at this time. She denies any wheezing although she does have chest tightness. In addition to that the patient does have daytime drowsiness. Her Hanover score is elevated 12/24. The patient does have cardiovascular risk factors. Patient needs to undergo home sleep study this time. We did review imaging studies that we have available including a CT scan of the chest angiogram ruling out pulmonary embolism in the spring. the lung parenchyma is also within normal limits which is reassuring. 08/16/2022 the patient is here for a pulmonary follow-up visit. The patient overall has been feeling relatively well. She still has some daytime drowsiness. Her Hanover score is elevated 9/24. The patient did have a sleep study done. Appears that she was sleeping the most part on her back and she had a mild degree of sleep apnea with an AHI just above 5. her sleep apnea was less severe when she laid on her sides. Therefore she wants to try positional therapy for now. If she does not improved after positional therapy then can consider CPAP therapy. The patient also continues on the Eliquis. She is tolerating it well. No minor major bleeding noted. she did undergo pulmonary function studies personally by me demonstrating an isolated moderate diffusion impairment. We did talk about potentially chronic thromboembolic disease could result in this presentation. But she is also anemic and that can also result in the diffusing impairment as well. She is currently on iron. 10/25/2022 the patient is here for pulmonary follow-up visit. The patient has been complaining of increasing shortness of breath. Moderate severity. Also complaining of right-sided pleuritic chest pain. She went to the gym yesterday and she got short of breath and also felt dizzy. She did undergo blood work which we reviewed. She has an elevated white count in addition to a left shift suggesting an infectious process. On further questioning she has been coughing more recently. In addition to that she does complaint of that pleuritic discomfort. She did have blood work which we debrided reviewed together. White count is elevated consistent with an infectious process. In addition to that her D-dimer is elevated. On further questioning she is not taking her Eliquis correctly. She is only doing it daily. With her elevated D-dimer in the pleuritic chest pain in a history of previous blood clots the patient needs to get a repeat CT scan of the chest PE protocol. Will request 1 at this time. However, being Friday if the patient develops any worsening symptoms she should go to the ER. 01/09/2023 the patient is here for a pulmonary follow-up visit. The patient still having shortness of breath even after being hospitalized. She did increase her Eliquis medication to twice a day. The patient still has significant shortness of breath with minimal activity moderate severity. She complains of chest discomfort. She is wondering if the Eliquis is working. She did follow-up with her oncologist. It appears that she does have factor 5 Leiden putting her risk for blood clots and also her family. She needs to make sure the family is aware of this had artery disease. We did taken for walking oximetry the patient did desaturate down to 87% with activity and she was also tachycardic to 130. I am concerned that she may have at this point chronic thromboembolic disease. Will go ahead and order a V/Q scan and switch over to Coumadin. If the patient continues to have blood clots even after that will have to consider a referral to [place]. 02/06/2023 The patient is here for a follow up visit. Switched over to coumadin. But, then ended up with a tooth infection and placed on abx. Started developing headaches and blurry vision. She had her INR check and it was critically high 6.8. She is using the oxygen with good effect. Has an ECHO scheduled for next week. We will plan to repeat her VQ scan in 6-8 weeks, if no better, then will need a referral to [facility] for CTED. In the meantime, I did call the ED triage and took her to the ED to assess for an acute bleed for the supra therapeutic INR. 07/23/2023 the patient is here for a pulmonary follow-up visit. The patient continues to be about the same. Still having shortness of breath with activity. The oxygen has been affecting beneficial. She continues on the Coumadin. Her Coumadin levels continue to fluctuate. The patient did go to [place]. Chief deemed high risk for the pulmonary artery enterectomy therefore, the patient will undergo angioplasty. Will be broken up in about 3-4 procedures. She will have to switch over to Lovenox intermittently for the procedures. Will going to go ahead and work with the Coumadin clinic in order to do so effectively. She will continue with the oxygen for now. The patient also has to follow-up with her surgeon for the abnormal findings of the thyroid but that can hold and wait until she is stable from a pulmonary standpoint. She continues to work with her aircraft technician regarding her diabetes which appears to be better. She will continue with current therapy. Will follow-up in a couple months after she has completed with her angioplasty and perform a 6 minutes walk test to see if we can titrate her down to a conserving device in order for her to have an easier time caring the oxygen. We can also consider the use of vasodilators very therapy. Will discuss that further with [place]. 11/11/2023 the patient is here for a pulmonary follow-up visit. She is status post angioplasty although pulmonary vessels. Unfortunately she continues to be short of breath. Her V/Q scan in [place] demonstrated some slight improvement per the patient's report. I do not have any objective data at this time. She continues use her oxygen with activity and also with sleep. She continues on the blood thinners currently on Coumadin. She is tolerating it well maintaining the INR within therapeutic range. We did take her briefly for walking oximetry to see if she can tolerated conserving device. But, the patient became very tachycardic and also dyspneic. The patient still has significant pulmonary hypertension due to the chronic thromboembolic disease. This is WHO group 4. in view of her ongoing symptoms of tachycardia shortness of breath this is consistent with a [place] Heart Association class 4 where she is short of breath even at rest. Therefore, will place on vasodilators therapy, PD 5 inhibitor, to treat her underlying pulmonary hypertension. The patient was start the medication and then returned 3 months but we can repeat her echocardiogram and also repeat her 6 minute walk test with the hope that she can tolerate then the conserving device. The patient is also having significant daytime drowsiness. Her Hanover score is elevated 08/01. She does have increased cardiovascular risk factors. The patient will benefit for another sleep study. She did have mild sleep apnea back in 2021. at this point she will require an in-lab sleep study. The patient will hold off for now but will further discuss it during her follow-up. 03/09/2024 the patient is here for a pulmonary follow-up visit. Since we last spoke the patient did undergo her thyroid surgery. She did tolerate well. However, after she did develop worsening shortness of breath. She was recommended to go to the ER. She went to the [facility] ER. There she had a CTA. I did personally review. No evidence of any pulmonary emboli in no evidence of any airspace disease. Otherwise look reasonable. The patient did have blood work at [facility] demonstrating an elevated brain atretic peptide. The patient was treated and released. The patient does have her oxygen therapy although she has a hard time carrying the Tanks after surgery. She seems a little volume overload. We did review her last echocardiogram. She has a 1+ diastolic dysfunction. She does have slight increase in the right ventricular size but otherwise normal function and normal pulmonary pressures which is reassuring. She does continue on the sildenafil. She has tolerating the vasodilators well. She continues on the Coumadin. Her levels are slightly subtherapeutic. She will continue to work closely with the Coumadin clinic. 07/12/2024 the patient is here for a pulmonary follow-up visit. Since we last spoke she started developing left-sided pleuritic discomfort. She went to the ER this is an June. There she did have a chest x-ray. I personally reviewed. Appears that she has a small pleural effusion there that is new consistent with pleurisy. The patient's symptoms did improve. Will have to get a repeat x-ray to make sure things are better. She does continue to use the oxygen with good effect. In the office we did go for a walking oximetry and a conserving trial. She did very well on 2 L pulse maintaining a pulse ox of 96% with activity on 2 L pulse. She was still tachycardic throughout the ambulation consistent with a history of chronic thromboembolic disease. Her last echo was back in February and was reassuring pressures are better. Although will go ahead and repeat them specially because some concerned that with the angioplasty the results can reverse. If that is the case we can always consider increasing the Revatio. She continues to take Coumadin. She does have lower extremity edema but is asymmetrical with left more than right. Will go ahead and request a ultrasound to make sure she does not have a clot specially with the ongoing tachycardia. 10/14/2024 the patient is here for a pulmonary follow-up visit. Overall she is doing okay now. She did have some severe headaches and her INR was critically elevated at 13. at that point she went to the hospital she did have a CT of the brain without any evidence of any acute disease. She was given vitamin K. Afterwards her INR was very low and did not increase above 1. Therefore she had to go on Lovenox for some time. She did check her INR today was 2.3 which is reassuring. She is no longer having to the Lovenox. In the meantime the patient continues use the oxygen. She does complaint of dyspnea on exertion. We did review her last echocardiogram done in the fall demonstrating no evidence of any pulmonary hypertension which is reassuring. She continues on the sildenafil with good response. She also continues use the oxygen. She has also had significant amount of weight loss. Will continue to monitor her INR. If we still have issues with significant fluctuations of her INR then will look into switching her to a non vitamin K anticoagulation such as Xarelto. She had tried and failed Eliquis in the past. However, may have an issue with the fact that she had only been taking it once a day therefore with her weight loss we can consider other alternatives. She did not like the idea of staying on the Lovenox because he had significant amount of pain and bruising from the shots. 02/11/2025 The patient is here for pulmonary follow-up visit. The patient still complains of significant shortness of breath. Moderate severity. The oxygen is partially helpful. Her POC is also not working effectively. The arteries no longer charging. I did call the [employer] company in order for him to get an urgent evaluation since she does need the oxygen. She continues on sildenafil. She has not seen any significant improvement with breathing. She has had significant amount of weight loss. She still continues on the Coumadin and has been therapeutic. Will go ahead and request a repeat echocardiogram and also V/Q scan. If the patient does have evidence of significant chronic thromboembolic disease now that her sugars are better controlled and she has had significant weight loss in her health is overall better we could consider sending her back to [place] to see if she will be a candidate for pulmonary arterial endarterectomy. We can also consider increasing the sildenafil in the meantime. Will follow-up in 2-3 months. If she has not issues prior to that she will call for an earlier assessment. 05/13/2025 the patient is here for pulmonary follow-up visit. If she is not feeling well. She has aches and pains her body. This is something new. She is also dealing with significant headaches. She is working closely with Neurology for that. She continues on the Coumadin. Although the Coumadin levels have been fluctuating. At time she has required Lovenox in at time she had to be evaluated because of significant supra therapeutic levels. With the headaches always concerned for the possibility of clotting such as sinus thrombosis. She should follow-up with her neurologist regarding additional imaging studies. In the meantime the patient did have her V/Q scan demonstrating interval worsening of her V/Q mismatch suggesting the possibility of persistent chronic thromboembolic disease. The echocardiogram was indeed reassuring. She continues on sildenafil 3 times a day. She does have an appointment in [facility], sometime in July. She continues use the oxygen with good effect. With her ongoing constitutional symptoms in the fact that her clots were never really clear in etiology I believe we should repeat her blood work looking for inflammatory connective tissue conditions specially since she is having significant pain. Would be reasonable to try her on a course of Plaquenil just for a month and see if this provides her some relief. 08/18/2025 the patient is here for pulmonary follow-up visit. She continues to be able to same. Still complaining of dyspnea on exertion. Moderate severity. She does use her oxygen as prescribed. She continues on the Coumadin trying to keep her levels within normal limits although it has been hard to stay within range. She does have Lovenox available to take if her levels continued to be persistently low. She did speak to [facility] regarding her abnormal V/Q scan. Based on the patient's report discussion no interventions were scheduled. The thought is her symptoms could be multifactorial. Therefore will continue her on medical therapy but will go ahead and increase her sildenafil to see if she gets better vaso dilatory effect and therefore improve respiratory symptoms. We can also switch her to a longer acting agent. Her last echocardiogram was reassuring although does not seem to estimate the pulmonary pressures well. In addition to that she did try the Plaquenil without any relief. Therefore she stopped it. Will plan to perform pulmonary function studies for the next visit in 3 months and then also look into pulmonary rehabilitation. [facility] Medical History Migraine without aura CKD (chronic kidney disease) stage 4, GFR 15-29 ml/min PPD positive, treated Hx of angiography IBS (irritable bowel syndrome) Lymphedema Pleurisy with effusion Pulmonary hypertension Hypercoagulable state Thyroid cancer Chronic thromboembolic disease Lower extremity edema Multinodular thyroid Family history of deep venous thrombosis Pleuritic chest pain Dyspareunia in female Anemia Obstructive sleep apnea Morbid obesity History of COVID-19 (~2020) History of pulmonary embolus (PE) (~2020) Anxiety Chronic headaches Dyspnea on exertion Diabetes type 2, controlled Hypothyroid HTN (hypertension) Hyperlipidemia Surgical History Hx of partial thyroidectomy H/O colonoscopy History of surgery on right wrist History of foot surgery History of tubal ligation History of carpal tunnel surgery History of ERCP History of laparoscopic cholecystectomy History of surgery Family History Father Myocardial infarction COPD (chronic obstructive pulmonary disease) Mother COPD (chronic obstructive pulmonary disease) Brother Colitis Daughter Headache Social History Housing: House Are you a primary plant health care technician to a significant other at home: No Do you presently have visiting nurse or other home services: Yes (home services for oxygen) Alcohol intake: former Comment: pt d/c home Patient Tobacco Use Status: Never used Tobacco service: No Current occupational status: unemployed Current occupational exposures/hazards: No Review of Systems Const Denies chills, Reports daytime sleepiness, Reports difficulty sleeping, Denies fever(s), Denies frequent falls, Reports headache(s), Denies night sweats, Reports snoring and Reports weight loss Eyes Reports blurry vision, Reports change in vision and Reports eye pain ENT Reports dizziness and Reports headache(s) Card Reports chest pain, Denies chest pain at rest, Denies chest pain with activity, Denies irregular heart rhythm, Denies claudication, Reports leg edema, Denies palpitations and Reports dyspnea on exertion Resp Denies cough, Reports pain on inspiration, Reports pain with cough, Reports dyspnea on exertion and Reports snoring Musc Reports myalgias, Reports deformity, Reports arthralgias, Reports joint swelling, Denies limited range of motion and Reports stiffness Neuro Reports dizziness, Denies frequent falls and Reports headache(s) Endo Denies palpitations Physical Exam Vital Signs: Last Vital Signs Pulse 93 08/18/25 10:03 BP 120/76 08/18/25 10:03 Pulse Ox 98 08/18/25 10:03 Oxygen Delivery Method Nasal Cannula 08/18/25 10:03 Oxygen Flow Rate 3 08/18/25 10:03 Const General: cooperative, healthy appearing, no acute distress and alert Orientation/consciousness: oriented to person, oriented to place and oriented to time Limitations: no limitations HEENT Head: Yes normal to inspection, Yes normocephalic and Yes atraumatic Mouth: moist mucous membranes Eyes Sclerae: sclerae normal Neck Neck: Yes normal visual inspection Chest Chest palpation & inspection: normal inspection of the chest Resp Effort & Inspection: normal respiratory effort and able to speak in complete sentences Auscultation: no wheezes and diminished lung sounds Cardio Jugular venous distension: no JVD Rate: tachycardic Rhythm: regular rhythm Heart sounds: S1 normal heart sound present and S2 normal heart sound present GI Inspection: Yes normal to inspection Skin General skin exam: no rashes or lesions noted Neuro General: oriented to person, oriented to place, oriented to time and moves all extremities Gait exam (Neuro): Antalgic gait present Motor exam (neuro): 5/5 motor strength present throughout Extrem General: Yes no clubbing, cyanosis or edema Right lower extremity: knee Details: abnormal to inspection, tenderness Location: of the patella and of the lateral joint line, abnormal ROM, crepitus Location: at the kneww, deformity and warmth; no swelling and no ecchymosis Left lower extremity: knee Details: abnormal to inspection, tenderness, abnormal ROM, crepitus, deformity and warmth; no swelling and no ecchymosis Psych Appearance: grossly normal Mental Status: mental status grossly normal Speech and movement: Normal speech and movement present and Clear speech present Affect: normal affect Attitude: cooperative Thought process: Normal thought process present Thought content: Normal thought content present Insight: Good insight present (Psych) Judgement: Good judgement present (Psych) Assessment & Plan Assessment & Plan (1) Dyspnea: Code(s): R06.00 - Dyspnea, unspecified Category: Medical Qualifiers: Dyspnea type: dyspnea on exertion Qualified Code(s): R06.09 - Other forms of dyspnea (2) SERA (obstructive sleep apnea): Code(s): G47.33 - Obstructive sleep apnea (adult) (pediatric) Category: Medical (3) Bilateral pulmonary embolism: Code(s): I26.99 - Other pulmonary embolism without acute cor pulmonale Category: Medical (4) Lower extremity edema: Code(s): R60.0 - Localized edema Category: Medical (5) Chronic thromboembolic disease: Code(s): I74.9 - Embolism and thrombosis of unspecified artery Category: Medical (6) Pulmonary hypertension: Code(s): I27.20 - Pulmonary hypertension, unspecified Category: Medical (7) Lymphedema: Code(s): I89.0 - Lymphedema, not elsewhere classified Category: Medical (8) Pulmonary emboli: Code(s): I26.99 - Other pulmonary embolism without acute cor pulmonale Category: Medical Qualifiers: Acute cor pulmonale presence: with acute cor pulmonale Chronicity: chronic Pulmonary embolism type: other Qualified Code(s): I27.82 - Chronic pulmonary embolism; I26.09 - Other pulmonary embolism with acute cor pulmonale Plan s/p Angioplasty continue Coumadin, monitor INR increase sildenafil TID continue Symbicort Coumadin clinic continue oxygen 2L with activity, qualifies for POC 2L/pulse for better portability outside of the home. [employer] to check POC LORRIE as needed compression stocking F/U at [facility] CTED clinic PFTs then rehab F/U 2-3 months Orders: Orders PFT pulmonary function test 10 Weeks I27.20 - Pulmonary hypertension, unspecified Medications: Changed From sildenafil (pulm.hypertension) 20 mg PO TID 270 tabs 2RF To sildenafil (pulm.hypertension) 40 mg (2 x 20 mg) PO TID 270 tabs 2RF Coding Level of Care Code Add On Preventative Visit Only Diagnoses Dyspnea on exertion R06.09 Dyspnea type: dyspnea on exertion SERA (obstructive sleep apnea) G47.33 Bilateral pulmonary embolism I26.99 Lower extremity edema R60.0 Chronic thromboembolic disease I74.9 Pulmonary hypertension I27.20 Lymphedema I89.0 Other chronic pulmonary embolism with acute cor pulmonale I27.82; I26.09 Acute cor pulmonale presence: with acute cor pulmonale Chronicity: chronic Pulmonary embolism type: other
[2025-08-18 10:03] VITALS: BP 120/76; PULSE 93; O2SAT 98
== END 2025-08-18 10:37 | disposition home or self-care (01) ==
LOC: HO.HPS 09:56
PROVIDERS: PCP Internal Medicine Medical Oncology; Visit Provider Hospitalist
DX: R06.09 Other forms of dyspnea (principal); G47.33 Obstructive sleep apnea (adult) (pediatric); I26.99 Other pulmonary embolism without acute cor pulmonale; R60.0 Localized edema; I74.9 Embolism and thrombosis of unspecified artery; I27.20 Pulmonary hypertension, unspecified; I89.0 Lymphedema, not elsewhere classified; I27.82 Chronic pulmonary embolism; I26.09 Other pulmonary embolism with acute cor pulmonale
CPT/HCPCS: 99214; G2211

== ENCOUNTER 2025-08-18 10:51 | Outpatient (REF) | payer MEDICARE, MEDICAID, SELFPAY ==
--- NOTE | ~2025-08-18 | MM_ITS ---
EXAMINATION: MM SCREENING DIGITAL BREAST TOMOSYNTHESIS, BILATERAL CLINICAL INFORMATION: Screening. Asymptomatic. COMPARISON: Comparison made to multiple prior, most recent July 14, 2024, and most remote December 11, 2017. TECHNIQUE: Digital breast tomosynthesis is performed in mediolateral oblique and craniocaudal views along with computer-aided detection (CAD). Synthesized 2D images are generated from the tomosynthesis. FINDINGS: BREAST COMPOSITION: There are scattered areas of fibroglandular density. BILATERAL BREASTS: No significant masses, suspicious calcifications or other abnormalities are seen in either breast. MM/MM tomosynthesis screening BI IMPRESSION: BILATERAL BREASTS: Negative, no mammographic evidence of malignancy. Normal interval follow-up is recommended in 12 months. ASSESSMENT: BI-RADS: Category 1: Negative RECOMMENDATION: Routine annual mammography screening. FOLLOW-UP: 1 year F/U This examination should not preclude the clinical evaluation of a suspicious palpable abnormality. This patient's information was entered into a reminder system with a target due date for their next mammogram. Electronically signed by: Faby Holliday MD 08/18/2025 07:45 PM [facility]
== END 2025-08-18 10:52 | disposition home or self-care (01) ==
LOC: HO.MAMMO 10:51
PROVIDERS: PCP Internal Medicine; Visit Provider Internal Medicine
DX: G47.33 Obstructive sleep apnea (adult) (pediatric) (principal); R06.09 Other forms of dyspnea; R60.0 Localized edema; I74.9 Embolism and thrombosis of unspecified artery; I27.20 Pulmonary hypertension, unspecified; I89.0 Lymphedema, not elsewhere classified; I26.09 Other pulmonary embolism with acute cor pulmonale; Z12.31 Encounter for screening mammogram for malignant neoplasm of breast; I26.99 Other pulmonary embolism without acute cor pulmonale; Z51.81 Encounter for therapeutic drug level monitoring; Z79.01 Long term (current) use of anticoagulants
CPT/HCPCS: 77063; 77067; 85610; 99211; 99212

== ENCOUNTER → 2025-08-18 11:00 | Outpatient (BNV) | payer MEDICARE, MEDICAID, SELFPAY | PROVIDERS: PCP Internal Medicine; Visit Provider Radiology Body Imaging | DX: Z12.31 Encounter for screening mammogram for malignant neoplasm of breast (principal) | CPT/HCPCS: 77063; 77067 ==

== ENCOUNTER 2025-08-30 14:05 | Outpatient (REF) | payer MEDICARE, MEDICAID, SELFPAY ==
[2025-08-30 14:39] LABS: MANUAL DIFF FLAG NO
--- OUTSIDE RECORDS SUMMARY | 2025-08-30 15:21 | XMS_ITS | Encounter Summary ---
Author Organization [facility] Address [address] [place] [address] [address] [place] [address] Phone Care Team Providers Care Farm Product Purchaser Name Role Phone Deena Workman MD Primary Care Provider Encounter Details Date Type Department Care Team (Late st Contact Info) Description 08/11/2023 Procedure Pass [facility] Cardiac Cinder Pit Worker [address] [facility], [address] 9, [address] [place] [address] Social History Tobacco Use Types [...] on filedocumented in this encounter Care Teams Farm Product Purchaser Relationship Specialty Start Date End Date Deena Workman MD [address] [place] [address] [place] [phone] PCP - General Internal Medicine 04/11/23 documented as of this encounter Additional Source Comments The information contained in this document represents components of the legal health record. It is not the complete legal health record.[facility]
--- OUTSIDE RECORDS SUMMARY | 2025-08-30 15:21 | XMS_ITS | Encounter Summary ---
Author Organization [facility] Address [address] [place] [address] [address] [place] [address] Phone Care Team Providers Care Aerodynamics Professor Name Role Phone Deena Workman MD Primary Care Provider Reason for Referral * Outpatient Procedure - Closed Specialty Diagnoses / Procedures Referred By Contac t Referred To Contact Radiology Diagnoses Dyspnea, unspecified Pulmonary embolism Procedures NM Lung Perfusion Imaging NM Lung Ventilation and Perfusion Imaging NM Lung Perfusion and Ventilation Differential Quantification NM Lung Perfusion Imaging NM Lung Ventilation and Perfusion Imaging ME PULMONARY VENTILATION & PERFUSION IMAGING ME QUANT DIFF PULM PRFUSION & VENTLAJ W/WO IMAGING Nick Barnard MD Phone: tel: fax: mailto:[email or web address] Referral ID Status Reason Start Date Expiration Date Visits Re quested Visits Authorized [id number] Closed 08/14/2023 1 1 Encounter Details Date Type Department Care Team (Late st Contact Info) Description 10/13/2023 Ancillary Orders [facility] [address] [facility], 2nd Floor, [address] [place] [address] Nick Barnard MD [address] [place] [address] [id number] [place] [address] [email or web address] Dyspnea, unspecified (Primary Dx); Pulmonary embolism Social [...] Luis Benson. Narrative 10/13/2023 6:10 PM EST [place] LUNG PERFUSION IMAGING Lung Perfusion Scan COMPARISON: [...] Procedure Note Isabel Schmidt MD - 10/13/2023 [place] LUNG PERFUSION IMAGING Lung Perfusion Scan COMPARISON: [...] Luis Benson. us Nick Barnard MD [facility] [place] LUNG SCAN Fi nal Result documented in this encounter Visit Diagnoses Diagnosis Dyspnea, unspecified Pulmonary embolism Other pulmonary embolism and infarction Dyspnea, unspecified- Primary Pulmonary embolism Other pulmonary embolism and infarction documented in this encounter Care Teams Aerodynamics Professor Relationship Specialty Start Date End Date Deena Workman MD [address] [place] [address] [place] [address] PCP - General Internal Medicine 04/11/23 documented as of this encounter Additional Source Comments The information contained in this document represents components of the legal health record. It is not the complete legal health record.[facility]
--- OUTSIDE RECORDS SUMMARY | 2025-08-30 15:21 | XMS_ITS | Encounter Summary ---
Author Organization [facility] Address [address] [place] [address] [address] [place] [address] Phone Care Team Providers Care Pineapple Plantation Manager Name Role Phone Deena Workman MD Primary Care Provider Encounter Details Date Type Department Care Team (Late st Contact Info) Description 05/29/2023 Procedure Pass [facility] Cardiac Data Analyst [address] [facility], [address] 9, [address] [place] [phone] Social History Tobacco Use Types Packs/Day Years [...] on filedocumented in this encounter Care Teams Pineapple Plantation Manager Relationship Specialty Start Date End Date Deena Workman MD [address] [place] [address] [place] [phone] PCP - General Internal Medicine 04/11/23 documented as of this encounter Additional Source Comments The information contained in this document represents components of the legal health record. It is not the complete legal health record.[facility]
--- OUTSIDE RECORDS SUMMARY | 2025-08-30 15:21 | XMS_ITS | Clinical Summary ---
Author Organization [facility] Address [address] [place] [address] Phone Care Team Providers Care Exhibits Manager Name Role Phone Deena Workman MD Primary Care Provider Allergies Active Allergy Reactions Criticality Noted Date Comments Amitriptyline Hcl Other (See Comments) 08/01/20 [place] drugged Dapagliflozin 05/08/2023 Erythromycin 05/08/2023 Liraglutide 05/08/2023 Lisinopril 05/08/2023 Metformin 05/08/2023 Medications acetaminophen (TYLENOL) 650 MG CR tablet Take 650 mg by mouth every 8 (eight) hours as needed for pain (specific location in comments). Active albuterol 2.5 mg/0.5 mL nebulizer solution Take 2.5 mg by nebulization 4 (four) times a day as needed for wheezing. Active ferrous sulfate 324 mg ([address] [facility] ir[facility] iron) TbEC Take 324 mg by mouth [...] Team Description 08/03/2025 9:00 AM EST Telemedicine [facility] Pul[facility]pert[facility] [address] [place] [address], [address] Floor, [address] [place] [address] Nick Barnard MD CTEPH (chronic [...] on file Insurance [facility] [address] [place], [place] [address]st[place] Gene Test [facility] [place] [facility] [address] [place], [place] [address]HEALTH [facility] [address] [place], [place] [address]HEALTH [facility] HEALTH Advance Directives For more information, please contact: [phone] (9AM - 5PM Natasha/[facility], Friday-Friday) * Full Code (Latest Code Status on File) Date Activated Date Inactivated Comments 08/12/2023 8:12 AM Question Answer Comments Code Status Confirmed With: Patient Code Status Communicated To: Inpatient Attending * Full Code Date Activated Date Inactivated Comments 08/04/2023 7:15 PM 08/12/2023 8:12 AM Question Answer Comments Code Status Confirmed With: Patient Care Teams Exhibits Manager Relationship Specialty Start Date End Date Deena Workman MD [address] [place] [address] Dr [place]ado, DEEPAK [phone] PCP - General Internal Medicine 04/11/23 Additional Source Comments The information contained in this document represents components of the legal health record. It is not the complete legal health record.[facility]
--- OUTSIDE RECORDS SUMMARY | 2025-08-30 15:21 | XMS_ITS | Encounter Summary ---
Author Organization [facility] Address [address] [place] [address] [address] [place] [address] Phone Care Team Providers Care Swimming Pool Plasterer Helper Name Role Phone Deena Workman MD Primary Care Provider Encounter Details Date Type Department Care Team (Late st Contact Info) Description 08/04/2023 Procedure Pass [facility] Cardiac Smash Hand [address] [facility], [address] 9, [address] [place] [phone] Social History Tobacco Use Types Packs/Day Years [...] on filedocumented in this encounter Care Teams Swimming Pool Plasterer Helper Relationship Specialty Start Date End Date Deena Workman MD [address] [place] [address] Dr [place]ado, [place]EEPAK [phone] PCP - General Internal Medicine 04/11/23 documented as of this encounter Additional Source Comments The information contained in this document represents components of the legal health record. It is not the complete legal health record.[facility]
--- OUTSIDE RECORDS SUMMARY | 2025-08-30 15:21 | XMS_ITS | Clinical Summary ---
Author Organization [facility] it Address [address] [place] [address] Care Team Providers Care Squeegeer And Former Name Role Phone Unavailable Primary Care Provider [...] Documents on File Type Date Recorded Patient Medical Records Coordinator Expl anation Health Care Decision (hx) 10/31/2020 YASMANY LONG DIRECTIVE
--- OUTSIDE RECORDS SUMMARY | 2025-08-30 15:21 | XMS_ITS | Encounter Summary ---
Author Organization [facility] Address [address] [place] [address] [address] [place] [address] Phone Care Team Providers Care Clinical Research Specialist Name Role Phone Deena Workman MD Primary Care Provider Encounter Details Date Type Department Care Team (Late st Contact Info) Description 04/25/2023 Procedure Pass [facility] [place], [place] [address] [facility], 2nd Floor, [address] [place] [address] Social History Tobacco Use Types Packs/Day Years [...] filedocumented in this encounter Care Teams Clinical Research Specialist Relationship Specialty Start Date End Date Deena Workman MD [address] [place] [address] [place] [phone] PCP - General Internal Medicine 04/11/23 documented as of this encounter Additional Source Comments The information contained in this document represents components of the legal health record. It is not the complete legal health record.[facility]
[2025-08-30 15:56] LABS: Hematocrit 38.3 % (37.0-47.0); Hemoglobin 11.6 g/dl (12.0-16.0); Imm Gran Abs Auto 0.03 X10*3/uL (0.00-0.03); Imm Gran Pct Auto 0.4 % (0.0-0.4); Lymphocytes Absolute Auto 2.5 X10*3/uL (1.2-4.9); Mean Corpuscular HGB Conc 30.3 g/dl (31.0-35.0); Mean Corpuscular Hemoglobin 21.8 pg (27.0-33.0); Mean Corpuscular Volume 72.0 fL (80.0-98.0); NRBC Abs Auto 0.000 X10*3/uL (0.0-0.012); NRBC Pct Auto 0.0 /100WBC (0.0-0.2); Platelet Count 228 X10*3/uL (160-400); Red Blood Count 5.32 X10*6/uL (4.20-5.50); White Blood Count 8.4 X10*3/uL (4.8-10.8)
[2025-08-30 16:15] LABS: Alanine Aminotransferase 18 U/L (0-31); Albumin Level 4.3 g/dL (3.5-5.0); Alkaline Phosphatase 95 U/L (39-117); Anion Gap 16 (12-20); Aspartate Amino Transferase 27 U/L (5-31); Blood Urea Nitrogen 16 mg/dL (9-16); Calcium 9.5 mg/dL (8.4-10.2); Carbon Dioxide 27 mmol/L (22-29); Chloride 105 mmol/L (96-108); Estimated Glomerular Filt Rate 40; Potassium 3.6 mmol/L (3.3-5.1); Sodium 144 mmol/L (135-145); Total Protein 7.2 g/dL (6.5-8.0)
== END 2025-08-30 14:06 | disposition home or self-care (01) ==
LOC: HO.LAB 14:05
PROVIDERS: PCP Internal Medicine; Visit Provider Internal Medicine
DX: E11.9 Type 2 diabetes mellitus without complications (principal); D50.8 Other iron deficiency anemias; E03.9 Hypothyroidism, unspecified; I27.24 Chronic thromboembolic pulmonary hypertension; Z79.01 Long term (current) use of anticoagulants
CPT/HCPCS: 36415; 80053; 83036; 85025

== ENCOUNTER 2025-08-30 14:08 | Outpatient (AMB) | payer MEDICARE, MEDICAID, SELFPAY ==
[2025-08-30 14:16] LABS: Prothrombin Time Whole Bld POC 27.6 sec (11.1-13.5); ~PT, ~INR - Anti Coag Clinic 2.3 (0.9-1.1)
--- NOTE | 2025-08-30 14:23 | MHC.OFFVISCO ---
Intake Intake Visit Reasons: Anticoagulation Allergies lisinopril (LISINOPRIL) Allergy (Severe, Verified 08/30/25 14:09) ANGIOEDEMA dapagliflozin (From FARXIGA) Allergy (Intermediate, Verified 08/30/25 14:09) HIVES erythromycin base (ERYTHROMYCIN BASE) Allergy (Intermediate, Verified 08/30/25 14:09) Hives liraglutide (From VICTOZA) Allergy (Intermediate, Verified 08/30/25 14:09) RASH amitriptyline (AMITRIPTYLINE) Adverse Reaction (Intermediate, Verified 08/30/25 14:09) lethargy metformin (METFORMIN) Adverse Reaction (Intermediate, Verified 08/30/25 14:09) GI UPSET to short acting form-is taking long acting & OK Medication List - Last Reconciled 08/30/25 by Francine Mitchell RN acetaminophen ER 650 mg PO Q6H PRN albuterol sulfate 2.5 mg inhalation Q4H PRN albuterol sulfate 90 mcg/actuation (Ventolin HFA) 2 puffs inhalation Q6H PRN blood sugar diagnostic (FreeStyle Lite Strips) As directed blood-glucose meter (FreeStyle Lite Meter kit) Use daily As directed to check blood sugars compress.stocking,knee,reg,med 15-20 cm ferrous gluconate 324 mg PO DAILY furosemide (Lasix) 20 mg PO DAILY 90 days galcanezumab-gnlm (Emgality Pen) 120 mg subcut QMONTH ketotifen fumarate 0.025%(0.035%) 2 drps ophthalmic (eye) DAILY levothyroxine 50 mcg PO QAM nebulizers As directed Oxygen Home Use As directed rosuvastatin 10 mg PO BEDTIME sertraline 100 mg PO DAILY sildenafil (pulm.hypertension) 40 mg (2 x 20 mg) PO TID tirzepatide (Mounjaro) 15 mg (0.5 mL) subcut QWEEK warfarin 5 mg See Protocol PO DAILY 30 days Nursing Note INR: 2.3 in therapeutic range of 2-3 Medications and supplements reviewed No changes in health, diet, medications, or supplements, Denies any signs and symptoms of bleeding or bruising or clotting. Bleeding, bruising, clotting discussed Nutritional guidance given Dose: 2.5mg X 5 days and 5mg X 2 days F/U INR: 2 weeks Patient verbalizes understanding of instructions given Anti-Coag Initial Assessment Social Hx Patient Tobacco Use Status: Never used Tobacco alcohol intake: former Alcohol intake frequency: does not drink Cardiovascular Hx: HTN Lung Disease HX: DVT/PE Endocrine Hx: Thyroid Disease Musculoskeletal Hx: Arthritis Blood Disorder Hx: Anemia and Hyperlipidemia GI Hx: Ulcers, Diverticulosis and Hemorrhoids Hx: Other Neurological Hx: Migraines/Headaches and Other Cancer HX: No Psych. Illness/Depression: Yes Coding Level of Care Code Est Patient Level 1 Diagnoses Current use of anticoagulant therapy Z79.01 Results AMB INR Fingerstick AMB INR Fingerstick 2.3 Last Edit by Francine Mitchell RN on 08/30/25 14:19 interface delay Assessment & Plan Assessment & Plan (1) Current use of anticoagulant therapy: Code(s): Z79.01 - jail (current) use of anticoagulants Category: Medical
== END 2025-08-30 14:25 | disposition home or self-care (01) ==
LOC: HO.ACS 14:08
PROVIDERS: PCP Internal Medicine; Visit Provider Internal Medicine Medical Oncology
DX: Z79.01 Long term (current) use of anticoagulants (principal)